=== PATIENT | male | born 1970 | race African-American/Black ===

== ENCOUNTER 2016-09-03 01:51 | Inpatient (IN) ==
[2016-09-03] MEDS ORDERED: Ipratropium/Albuterol Neb 3 ML IH ONE (03:31)
--- NOTE | 2016-09-03 03:43 | Emergency Department Note ---
Disposition Clinical Impression: Acute exacerbation of chronic obstructive airways disease, Volume overload Disposition: Admitted As Inpatient Condition: Fair Referrals: Arthur Pozo MD [Primary Care Provider] - Forms: ED Satisfaction Letter General Adult HPI - General Chief complaint: ED Shortness of Breath/Dyspnea Stated complaint: JESSICA Source: patient - History of Present Illness HPI Narrative: This is a 45-year-old male who was in the emergency department earlier in the evening with shortness of breath. He was noted to be hypoxemic. He was felt to be volume overloaded. He has a history of end-stage renal disease and is supposed to go for dialysis on Wednesday and Wednesday. According to the previous notes he has been somewhat noncompliant with that however he does state that he went to dialysis on Wednesday. In any case he was found to have evidence of pulmonary vascular congestion on his x-ray as well as an elevated beta natruretic peptide. My predecessor made arrangements to admit him to the hospital only to have the patient sign out AGAINST MEDICAL ADVICE shortly after. Now he is back stating that his family would not take him home and they pushed him to come back and be admitted. Pain Scale: 8 - Related Data Home Medications Medication Instructions Recorded Confirmed Furosemide [Lasix] 80 mg PO DAILY #0 01/07/15 09/02/16 Insulin ASPART [NovoLOG] 0 unit SQ TIDAC #0 01/07/15 09/02/16 Insulin Glargine,Hum.rec.anlog 30 unit SQ BID #0 01/07/15 09/02/16 [Lantus Solostar] [place] Oil/[place]-3 Fatty Acids 1 cap PO DAILY #0 01/07/15 09/02/16 [Fish Oil 500 mg Softgel] Carvedilol [Coreg] 50 mg PO BIDWM 01/24/16 09/02/16 Duloxetine HCl [Cymbalta] 60 mg PO DAILY 01/24/16 09/02/16 Lidocaine/Prilocaine CREAM [Emla] 1 appl TP AD PRN 01/24/16 09/02/16 Pantoprazole Sodium [Protonix] 40 mg PO DAILY 01/24/16 09/02/16 Renal Vitamin [Renal Caps Softgel] 1 mg PO DAILY 01/24/16 09/02/16 Ammonium Lactate [Ammonium Lactate] 1 appl TP BID 09/02/16 09/02/16 Cinacalcet HCl [Sensipar] 60 mg PO DAILY 09/02/16 09/02/16 HydrALAZINE 25 mg PO BID 09/02/16 09/02/16 Isosorbide MONOnitrate (24 HR) 30 mg PO DAILY 09/02/16 09/02/16 [Imdur] Lisinopril [Zestril] 5 mg PO DAILY PRN 09/02/16 09/02/16 Previous Rx's Medication Instructions Recorded Pregabalin [Lyrica] 100 mg PO TID capsule 01/08/15 Rosuvastatin [Crestor] 20 mg PO DAILY tablet 01/08/15 Allergies Allergy/AdvReac Type Severity Reaction Status Date / Time acetaminophen [From [place]] AdvReac Hives Verified 10/31/15 14:44 hydrocodone [From [place]] AdvReac Hives Verified 10/31/15 14:44 All systems ED: reviewed and negative except as stated. Constitutional: Denies: fever Cardiovascular: Denies: chest pain Respiratory: Reports: cough, dyspnea, wheezes Gastrointestinal: Denies: abdominal pain Past Medical History - Past Medical History Attestation: Yes The following information was validated with the patient. Medical history: Reports: arthritis, cardiomyopathy, CHF, COPD, diabetes, dialysis, GERD, hyperlipidemia, hypertension, renal disease, other Surgical history: Reports: herniorrhaphy, vascular surgery Psychiatric history: Reports: no psych history - Social History Smoking Status: Light tobacco smoker Smokeless Tobacco Status: Yes (nicotin gum) Alcohol use: Reports: none Drug use: Reports: none Physical Exam - General General appearance: alert - Head Head exam: atraumatic - Eye Eye exam: Present: PERRL - Neck Neck exam: Present: trachea midline - Respiratory Respiratory exam: Present: wheezes - Cardiovascular Cardiovascular exam: Present: normal rhythm, tachycardia - Abdominal Exam Abdominal exam: Present: soft, Non-Tender - Extremities Exam Extremities exam: Present: pedal edema - Neurological Exam Neurological exam: Present: alert, oriented X3 - Psychiatric Psychiatric exam: Present: flat affect Course Course Narrative: This patient was also set to be admitted before he left. We understand that he is likely volume overloaded. He is still persistently hypoxemic without supplemental oxygen. He states that he is now willing to be admitted. I have contacted the hospitalist Dr. Draper to arrange for admission. Vital Signs Temperature 97.9 F 09/03/16 01:56 Pulse Rate 117 09/03/16 01:56 Respiratory Rate 17 09/03/16 01:56 Blood Pressure 143/81 09/03/16 01:56 O2 Sat by Pulse Oximetry 89 09/03/16 01:56 Temperature 97.9 F 09/03/16 01:56 Pulse Rate 117 09/03/16 01:56 Respiratory Rate 17 09/03/16 01:56 Blood Pressure 143/81 09/03/16 01:56 O2 Sat by Pulse Oximetry 89 09/03/16 01:56 Oxygen Delivery Oxygen Delivery Room Air
[2016-09-03 06:55] LABS: Activated Partial Thrombo Time 31.7 Seconds (26.0-36.0); INR 1.3; Prothrombin Time 14.1 Seconds (9.4-12.1)
[2016-09-03 07:06] LABS: BUN/Creatinine Ratio 4 (6-26); Blood Urea Nitrogen 36 mg/dL (8-26); Calcium 8.5 mg/dL (8.6-10.8); Carbon Dioxide 25 mEq/L (19-29); Chloride 100 mEq/L (98-109); Chol/HDL Ratio 3.8 (0-4.9); Cholesterol 111 mg/dL (< 200); Glucose 166 mg/dL (70-99); HDL Cholesterol 29 mg/dL (40-59); LDL Cholesterol,Calculated 45 mg/dL (0-99); Osmolality,Calculated 304 (280-300); Phosphorous 7.8 mg/dL (2.3-4.7); Potassium 4.2 mEq/L (3.5-4.5); Sodium 141 mEq/L (136-145); Triglycerides 184 mg/dL (< 150); eGFR For African Americans 8 (> 60); eGFR For Non-African Americans 7 (> 60)
[2016-09-03 07:18] LABS: Immature Granulocytes % 0.5 % (0-4)
[2016-09-03 07:20] LABS: Basophils % 0.5 %; Eosinophils # 0.1 K/mcL (0.0-0.6); Eosinophils % 0.8 %; Hematocrit 44.2 % (37.5-50.1); Hemoglobin 13.6 g/dL (12.9-16.9); Immature Platelets 6.9 % (1.1-6.1); Lymphocytes % 13.1 %; Mean Corpuscular HGB Conc 30.8 g/dL (31.6-35.5); Mean Corpuscular Volume 87.9 fL (83.0-100.0); Mean Platelet Volume 11.5 fL (9.4-12.4); Monocytes # 0.7 K/mcL (0.0-1.3); Monocytes % 9.8 %; Neutrophils # 5.6 K/mcL (1.6-8.9); Nucleated Red Blood Cells 0.4 /100 WBC (0); Red Blood Count 5.03 M/mcL (4.19-5.50); Segmented Neutrophils % 75.3 %
[2016-09-03] MEDS ORDERED: Albuterol 2.5 MG/3 ML NEBULIZER IH PRN (07:58)
[2016-09-03] MEDS ORDERED: *HR* Morphine 2 MG/ML SYRINGE IVP PRN (07:58)
[2016-09-03] MEDS ORDERED: Ibuprofen 400 MG TABLET PO PRN (07:58)
[2016-09-03] MEDS ORDERED: *HR* Promethazine 25 MG/ML VIAL IVP PRN (07:58)
[2016-09-03] MEDS ORDERED: Azithromycin 500 MG in D5% in Water 250 ML IVPB SCH (08:00)
[2016-09-03 08:11] LABS: Platelet Count 89 K/mcL (140-400); Platelet Estimate Decreased (Normal)
--- NOTE | 2016-09-03 08:12 | Internal Med History&Physical ---
Date of Encounter: 09/03/16 Time of Encounter: 07:00 Assessment and Plan (1) Fluid overload Current visit: Yes Status: Acute . Qualifiers: Hypervolemia type: unspecified Qualified Code(s): E87.70 - Fluid overload, unspecified (2) End stage renal disease on dialysis Current visit: Yes Status: Chronic . (3) Altered mental status Current visit: Yes Status: Acute . Qualifiers: Altered mental status type: delirium Qualified Code(s): R41.0 - Disorientation, unspecified (4) Systolic heart failure, chronic Current visit: Yes Status: Acute . (5) Diabetes mellitus Current visit: Yes Status: Chronic . 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 (7) Obesity (BMI 30-39.9) Current visit: Yes Status: Chronic . (8) Acute exacerbation of chronic obstructive airways disease Current visit: Yes Status: Acute . (9) Volume overload Current visit: Yes Status: Acute . Qualifiers: Hypervolemia type: unspecified Qualified Code(s): E87.70 - Fluid overload, unspecified (10) Hx of noncompliance with medical treatment, presenting hazards to health Current visit: Yes Status: Acute . Internal Medicine - H&P: HPI Chief complaint: Difficulty breathing Admitted From: Emergency Dept Plans for Post Hospital Care: Home History of present illness: Mr. Hatch is a 45 year old male with history significant for ESRD HD dependent( MWF), chr syst CHF/nonischCMP, COPD/ZAINAB?OHS, type II DM/nephropathy/periph neuropathy/ED, HTN, HLD, OA/OP/vit D def, chr MSK pain, morbid obesity, nicotine dependency, etc.. Patient is admitted [facility] through the emergency department as he returns in the company of [employer] after having a left early in the evening AGAINST MEDICAL ADVICE following admission to inpatient status. At that time he presented with concerns for difficulty in breathing and discomfort he had aches following up on mechanical fall and trauma to his left hip and shoulder. Noted that he had fallen approximately 3 days prior to his presentation. He presented to the ED following dialysis where he reports they had removed approximately 6 L of fluid. He still felt that he was volume overloaded due to shortness of breath and feelings of fatigue and dyspnea with activity. He was noted also to have evidence for acute on chronic encephalopathy with mild delirium. Chest x-ray did suggest some volume overload consistent with his elevated BNP which tends to be elevated due to his ESRD as well as an elevated troponin. Examination revealed evidence suggestive of COPD exacerbation with bronchospasm. Initial vital signs noted temperature of 99.4 pulse of 123 duration on room air was 85%. CBC with differential was benign. Metabolic panel noted a BUN of 20 with a creatinine of 7.08 GFR of 8. Glucose is 210 with osmolality of 303. Troponin was 0.19 BNP 2342. Beta-hydroxy butyric acid was 0.14. PT 14.5 INR 1.3 PTT 35.4 and received initial treatments in the ED including Tylenol and nebulizer therapies and initial diuresis with intravenous furosemide. Patient however became belligerent and left AGAINST MEDICAL ADVICE. History was documented of previous noncompliance issues upon his return family stated plainly that they would not take him home until he was appropriately treated safe to return home. Vital signs upon return temperature was now 97.9 pulse was 117. 02 saturation on room air was 89%. Cough dyspnea and audible wheezes were apparent. The patient meets SIRS criteria at admission. Acute on chronic hypoxic respiratory failure secondary to acute exacerbation of chronic pulmonary disease superimposed on chronic systolic congestive heart failure. Demand ischemia myocardium with elevation in troponin and BNP might be a concern and will be further investigated. History of previous trends of troponins and BNP's similarly elevated. The patient poses a risk for her to clinically decline and morbidity given his presenting concerns, his history of noncompliance, clinical findings at presentation and associated comorbid conditions. Workup and treatments will proceed comprehensibly The patient was visited and interviewed and examined. Cumulative laboratory and radiographic data base will be considered and discussed. Pertinent ancillary medical records including ECW and PCI documentation when available was reviewed and considered. Given the patient's presenting concerns, past medical history, clinical findings and symptoms, he is admitted at this time will undergo further evaluation and disposition. Orders were written as per the computerized physician order packer system.......................................................................... .................... Consultative opinions will be sought as clinical circumstances justify. Nephrology/dialysis team consultation submitted. Pain management needs will be addressed. Laboratory+radiographic data base will be updated as appropriate. Studies include: UA, UDS, pt/inr, aptt, ddimer, ammonia, cpk, cardiac injury panel, BNP , metabolic and hematologic panel, magnesium, phosphorus, ionized calcium, thyroid panel, lipid profile, A1c, C-peptide, CRP, sedimentation rate, blood gas , lactic acid, serologies, etc. Precautions: Aspiration, fall, delirium protocol/surveillance initiated. Telemetry with continuous hemodynamic monitoring and pulse oximetry initiated. Empiric antibiotic coverage: Intravenous Rocephin and azithromycin pending culture data. Special studies: CT chest, chest x-ray, telemetry, EKG, 2D echo. Pulmonary toilet: Incentive spirometry, aerosol bronchodilator, mucolytic, antitussive, supplemental oxygen. Corticosteroid therapy. CPAP/BiPAP supplemental oxygen delivery. Aerosol Mucomyst therapy. Fluid and electrolyte repletion efforts will proceed. Careful attention to fluid balance and renal recovery will be emphasized. Avoidance of nephrotoxic exposure and adverse drug drug interaction in the setting of impaired renal function will be monitored closely. Acute coronary syndrome protocol/surveillance initiated. Acute heart failure protocol/surveillance initiated. 1500mls total fluid restriction per 24hrs. JOI admend to ADA-RENAL diet. Strict input, output and daily weights. Gentle diuresis with careful attention to total fluid balance and hemodynamics. DVT and PUD prophylaxis initiated: PPI therapy, intermittent pneumatic cuffs/ TEDs. Subcutaneous heparin. Early ambulation will be encouraged. Immunization updates recommended. Influenza and pneumococcal vaccinations as part of ongoing preventative healthcare recommendations strongly recommended. Smoking cessation counseling briefly addressed. Patient accepts nicotine substitution during this hospitalization.. Advanced care directive discussion briefly addressed. Patient does not declare any healthcare restrictions at this time. Cardiovascular risk appraisal and cardiovascular risk reduction efforts will be emphasized. Physical+occupational therapy may be asked to evaluate patient's functional capacity and progressive mobility if circumstances justify. Sliding scale insulin coverage, ADA-RENAL dietary restraint and schedule an as- needed basis fingerstick glucose assessments were initiated. Nutrition/ diabetes education counseling may be considered as circumstances justify. Outpatient medication schedules will be reviewed, confirmed and facilitated as appropriate. Reconciliation of home treatments including adjustments, substitutions and reintroduction into the treatment regimen will address necessary maintenance therapies for chronic pre-existing medical conditions. Plan of care has been reviewed and discussed in detail with the patient. Questions addressed. Hospital course dictated by clinical findings, treatment response and potential consultative interventions. Patient is at risk for further acute clinical decline and morbidity due to presenting chief complaints, findings and comorbid conditions. Condition is serious. Prognosis is guarded. CODE STATUS is full. Past Med Surg Social Fam HX - Past Medical History Source: old records reviewed Medical history: arthritis, cardiomyopathy, CHF, COPD, diabetes, dialysis, GERD , hyperlipidemia, hypertension, osteoporosis (vit D def.), renal disease, other Psychiatric history: anxiety, depression, other - Past Surgical History Surgical History: herniorrhaphy, vascular surgery, other - Social History Smoking Status: Current every day smoker Smokeless Tobacco Status: No Alcohol use: none, unknown Drug use: marijuana, other Occupational status: unemployed Current living situation: Home, With Family Activity Level: Independent ambulation, Mostly sedentary Recent Out of Country Travel Within the Last 8 Weeks: No Exposure or Possible Exposure to Illness During Travel: No - Family History Father Living Status: Age at : 83 Mother Adopted: No Living Status: Still Living Hx Family Cardiac Disorders: Yes Hx Family Endocrine Disorder: Yes Internal Medicine - H&P: Meds Furosemide [Lasix] 80 mg PO DAILY #0 01/07/15 [History] Insulin ASPART [NovoLOG] 0 unit SQ TIDAC #0 01/07/15 [History] Insulin Glargine,Hum.rec.anlog [Lantus Solostar] 30 unit SQ BID #0 01/07/15 [ History] [place] Oil/[place]-3 Fatty Acids [Fish Oil 500 mg Softgel] 1 cap PO DAILY #0 [History] Pregabalin [Lyrica] 100 mg PO TID capsule 01/08/15 [Rx] Rosuvastatin [Crestor] 20 mg PO DAILY tablet 01/08/15 [Rx] Carvedilol [Coreg] 50 mg PO BIDWM 01/24/16 [History] Duloxetine HCl [Cymbalta] 60 mg PO DAILY 01/24/16 [History] Lidocaine/Prilocaine CREAM [Emla] 1 appl TP AD PRN 01/24/16 [History] Pantoprazole Sodium [Protonix] 40 mg PO DAILY 01/24/16 [History] Renal Vitamin [Renal Caps Softgel] 1 mg PO DAILY 01/24/16 [History] Ammonium Lactate [Ammonium Lactate] 1 appl TP BID 09/02/16 [History] Cinacalcet HCl [Sensipar] 60 mg PO DAILY 09/02/16 [History] HydrALAZINE 25 mg PO BID 09/02/16 [History] Isosorbide MONOnitrate (24 HR) [Imdur] 30 mg PO DAILY 09/02/16 [History] Lisinopril [Zestril] 5 mg PO DAILY PRN 09/02/16 [History] Allergies acetaminophen [From [place]] Adverse Reaction (Verified 10/31/15 14:44) Hives hydrocodone [From [place]] Adverse Reaction (Verified 10/31/15 14:44) Hives All Systems PM: A 10-system review of systems was performed and is negative for pertinent findings except as documented above in the HPI. - Constitutional Constitutional: as per HPI, fatigue, falls, malaise, weight gain, other, no chills, no fever(s), no night sweats - EENT Eyes: as per HPI, no change in vision, no discharge, no pain, no photophobia Ears: as per HPI, no ear discharge, no ear pain, no tinnitus Nose, mouth and throat: as per HPI, no dysphagia, no nasal discharge, no neck pain, no sore throat - Cardiovascular Cardiovascular ROS IM: as per HPI, dyspnea, dyspnea on exertion, edema, orthopnea, no chest pain, no diaphoresis, no lightheadedness, no palpitations, no syncope - Respiratory Respiratory: as per HPI, cough, dyspnea, dyspnea on exertion, wheezing, no hemoptysis, no excessive phlegm production - Gastrointestinal Gastrointestinal: as per HPI, bloating, no abdominal pain, no diarrhea, no hematemesis, no hematochezia, no melena, no nausea, no vomiting - Genitourinary Genitourinary ROS male: as per HPI - Musculoskeletal Musculoskeletal ROS IM: as per HPI, no numbness, no tingling - Integumentary Integumentary IM: as per HPI, no rash, no unusual bruising - Neurological Neurological ROS: as per HPI, no confusion, no convulsions, no focal weakness, no numbness, no tingling, no tremor(s) - Psychiatric Psychiatric: as per HPI - Endocrine Endocrine IM: as per HPI - Hematologic/Lymphatic Hematologic/Lymphatic: as per HPI, no easy bruising - Allergic/Immunologic Allergic/Immunologic: as per HPI - Constitutional Vitals: Temp Pulse Resp BP Pulse Ox 97.8 F 115 18 142/106 97 09/03/16 06:56 09/03/16 06:56 09/03/16 06:56 09/03/16 06:56 09/03/16 06:56 Vital Signs Temp Pulse Resp BP Pulse Ox 09/03/16 06:56 97.8 F 115 18 142/106 97 09/03/16 05:13 98.2 F 116 19 101/69 97 09/03/16 04:49 124 20 123/73 87 09/03/16 03:49 18 91 09/03/16 01:56 97.9 F 117 17 143/81 89 Intake and Output 09/02/16 09/03/16 09/03/16 23:59 07:59 15:59 Other: Weight 123 kg Blood Glucose* 276 Patient Weight 09/03/16 23:59 Weight 123 kg General appearance: Present: mild distress, A&O X 3, morbidly obese, answers questions appropriately - Head Head exam: Present: atraumatic, normal inspection, normocephalic - Eye Eye exam: Present: EOMI, PERRL, conjuntiva pink, sclera anicteric Pupils: Present: normal accommodation, PERRL - ENT ENT exam: Present: mucous membranes moist, normal oropharynx - Neck Neck exam general surgery: Present: full ROM, supple, trachea midline. Absent: lymphadenopathy, nuchal rigidity - Respiratory Respiratory exam: Present: decreased breath sounds, prolonged expiratory phase, rales, wheezes. Absent: accessory muscle use, CTAB, rhonchi - Cardiovascular Cardiovascular exam: Present: distant heart sounds, RRR, +S1, +S2. Absent: diastolic murmur, gallop, rubs, systolic murmur - GI/Abdominal GI/Abdominal exam: Present: normal bowel sounds, soft, no peritoneal signs. Absent: distended, tenderness - Extremities Exam Extremities exam: Present: full ROM, pedal edema, warm, radial pulses palpable and symetrical. Absent: calf tenderness, cyanotic, tenderness - Neurological Exam Neurological exam: Present: alert, CN II-XII intact, oriented X3, no focal deficits. Absent: pronater drift, facial droop, speech deficit - Expanded Neurological Exam Neurological exam expanded: Present: inattentive, protecting the airway. Absent : ataxia, expressive aphasia, receptive aphasia, tremor Patient oriented to: Present: person, place, time Speech: Present: fluid speech Coma Scale Eye Opening: Spontaneous Coma Scale Motor Response: Obeys Commands Coma Scale Verbal Response: Oriented Coma Scale Total: 15 - Psychiatric Psychiatric exam: Present: normal affect, normal mood - Skin Skin exam: Present: dry, intact, warm. Absent: petechiae, rash, urticaria, vesicles Internal Med - H&P Results - Labs CBC & Chem 7: 09/03/16 06:29 Labs: [facility] 09/03/16 06:29 Sodium 141 Potassium 4.2 Chloride 100 Carbon Dioxide 25 BUN 36 H Creatinine 8.41 H Glucose 166 H Calcium 8.5 L Cardiac Enzymes 09/03/16 Range/Units 06:29 Troponin I 0.21 H* (0-0.03) ng/mL Short CBC 09/03/16 Range/Units 06:29 WBC 7.4 (4.3-11.1) K/mcL Hgb 13.6 (12.9-16.9) g/dL Hct 44.2 (37.5-50.1) % Plt Count 89 L (140-400) K/mcL Neutrophils # 5.6 (1.6-8.9) K/mcL [facility] 09/03/16 Range/Units 06:29 Sodium 141 (136-145) mEq/L Potassium 4.2 (3.5-4.5) mEq/L Chloride 100 (98-109) mEq/L Carbon Dioxide 25 (19-29) mEq/L BUN 36 H (8-26) mg/dL Creatinine 8.41 H (0.72-1.25) mg/dL Glucose 166 H (70-99) mg/dL Calcium 8.5 L (8.6-10.8) mg/dL Cardiac Enzymes 09/03/16 Range/Units 06:29 Troponin I 0.21 H* (0-0.03) ng/mL Abnormal lab results MCH 27.0 pg (28.0-33.3) L 09/03/16 06:29 MCHC 30.8 g/dL (31.6-35.5) L 09/03/16 06:29 RDW 17.0 % (11.5-14.5) H 09/03/16 06:29 Plt Count 89 K/mcL (140-400) L 09/03/16 06:29 Nucleated RBCs/100 WBC 0.4 /100 WBC (0) H 09/03/16 06:29 Platelet Estimate Decreased (Normal) L 09/03/16 06:29 Immature Plt Fraction 6.9 % (1.1-6.1) H 09/03/16 06:29 PT 14.1 Seconds (9.4-12.1) H 09/03/16 06:29 BUN 36 mg/dL (8-26) H 09/03/16 06:29 Creatinine 8.41 mg/dL (0.72-1.25) H 09/03/16 06:29 Est GFR ( Amer) 8 (> 60) L 09/03/16 06:29 Est GFR (Non-Af Amer) 7 (> 60) L 09/03/16 06:29 BUN/Creatinine Ratio 4 (6-26) L 09/03/16 06:29 Glucose 166 mg/dL (70-99) H 09/03/16 06:29 Calculated Osmolality 304 (280-300) H 09/03/16 06:29 Calcium 8.5 mg/dL (8.6-10.8) L 09/03/16 06:29 Phosphorus 7.8 mg/dL (2.3-4.7) H 09/03/16 06:29 Troponin I 0.21 ng/mL (0-0.03) H* 09/03/16 06:29 Triglycerides 184 mg/dL (< 150) H 09/03/16 06:29 VLDL Cholesterol, Calc 37 mg/dL (< 31) H 09/03/16 06:29 HDL Cholesterol 29 mg/dL (40-59) L 09/03/16 06:29 Laboratory Results WBC 7.4 K/mcL (4.3-11.1) 09/03/16 06:29 RBC 5.03 M/mcL (4.19-5.50) 09/03/16 06:29 Hgb 13.6 g/dL (12.9-16.9) 09/03/16 06:29 Hct 44.2 % (37.5-50.1) 09/03/16 06: MCV 87.9 fL (83.0-100.0) 09/03/16 06: MCH 27.0 pg (28.0-33.3) L 09/03/16 06: MCHC 30.8 g/dL (31.6-35.5) L 09/03/16 06: RDW 17.0 % (11.5-14.5) H 09/03/16 06:29 Plt Count 89 K/mcL (140-400) L 09/03/16 06:29 MPV 11.5 fL (9.4-12.4) 09/03/16 06: Immature Gran % 0.5 % (0-4) 09/03/16 06: Seg Neutrophils % 75.3 % 09/03/16 06:29 Lymphocytes % 13.1 % 09/03/16 06: Monocytes % 9.8 % 09/03/16 06: Eosinophils % 0.8 % 09/03/16 06: Basophils % 0.5 % 09/03/16 06: Neutrophils # 5.6 K/mcL (1.6-8.9) 09/03/16 06: Lymphocytes # 1.0 K/mcL (0.6-4.6) 09/03/16 06: Monocytes # 0.7 K/mcL (0.0-1.3) 09/03/16 06:29 Eosinophils # 0.1 K/mcL (0.0-0.6) 09/03/16 06: Basophils # 0.0 K/mcL (0.0-0.2) 09/03/16 06:29 Nucleated RBCs/100 WBC 0.4 /100 WBC (0) H 09/03/16 06:29 Platelet Estimate Decreased (Normal) L 09/03/16 06: Immature Plt Fraction 6.9 % (1.1-6.1) H 09/03/16 06:29 PT 14.1 Seconds (9.4-12.1) H 09/03/16 06:29 INR 1.3 09/03/16 06:29 APTT 31.7 Seconds (26.0-36.0) 09/03/16 06:29 Sodium 141 mEq/L (136-145) 09/03/16 06:29 Potassium 4.2 mEq/L (3.5-4.5) 09/03/16 06:29 Chloride 100 mEq/L (98-109) 09/03/16 06:29 Carbon Dioxide 25 mEq/L (19-29) 09/03/16 06:29 BUN 36 mg/dL (8-26) H 09/03/16 06:29 Creatinine 8.41 mg/dL (0.72-1.25) H 09/03/16 06:29 Est GFR ( Amer) 8 (> 60) L 09/03/16 06:29 Est GFR (Non-Af Amer) 7 (> 60) L 09/03/16 06:29 BUN/Creatinine Ratio 4 (6-26) L 09/03/16 06:29 Glucose 166 mg/dL (70-99) H 09/03/16 06:29 Calculated Osmolality 304 (280-300) H 09/03/16 06:29 Calcium 8.5 mg/dL (8.6-10.8) L 09/03/16 06:29 Ionized Calcium TNP 09/03/16 06:29 Phosphorus 7.8 mg/dL (2.3-4.7) H 09/03/16 06:29 Magnesium 2.0 mg/dL (1.6-2.6) 09/03/16 06:29 Troponin I 0.21 ng/mL (0-0.03) H* 09/03/16 06:29 Triglycerides 184 mg/dL (< 150) H 09/03/16 06:29 Cholesterol 111 mg/dL (< 200) 09/03/16 06:29 LDL Cholesterol, Calc 45 mg/dL (0-99) 09/03/16 06:29 VLDL Cholesterol, Calc 37 mg/dL (< 31) H 09/03/16 06:29 HDL Cholesterol 29 mg/dL (40-59) L 09/03/16 06:29 Cholesterol/HDL Ratio 3.8 (0-4.9) 09/03/16 06:29 Specimen Rejected Miscellaneous 09/03/16 08:05
[2016-09-03] MEDS ORDERED: *HR* Etomidate 20 MG/10 ML AMPUL IVP ONE (08:30)
[2016-09-03] MEDS ORDERED: (Salmon Oil/Omega-3 Fatty Acids [Fish Oil 500 Mg Soft PO SCH (09:00)
[2016-09-03] MEDS ORDERED: Nicotine 21 MG PATCH.TD24 TD SCH (09:00)
[2016-09-03] MEDS ORDERED: Renal Vitamin 1 MG CAPSULE PO SCH (09:00)
[2016-09-03] MEDS ORDERED: Isosorbide MONOnitrate (24 HR) 30 MG TAB.ER.24H PO SCH (09:00)
[2016-09-03] MEDS ORDERED: Furosemide 40 MG TABLET PO SCH (09:00)
[2016-09-03] MEDS ORDERED: Pregabalin 50 MG CAPSULE PO SCH (09:00)
[2016-09-03] MEDS: Ammonium Lactate 30 APPL/225 GM BOTTLE TP SCH ×2 (10:05→20:20)
[2016-09-03] MEDS: hydrALAZINE 25 MG TABLET PO SCH ×2 (10:06→20:19)
[2016-09-03] MEDS: Ipratropium/Albuterol Neb 3 ML IH SCH ×3 (10:08→22:06)
--- NOTE | 2016-09-03 10:17 | Nephrology Consult Note ---
Date of Encounter: 09/03/16 Time of Encounter: 09:30 Assessment and Plan (1) End stage renal disease on dialysis Current Visit: Yes Status: Chronic ESRD on HD. Fluid overload. Chronically non compliant with treatments and fluids. Will do UF today, orders given. HD tomorrow, keeping MWF schedule. History of Present Illness - Reason for Consult end stage renal disease - History of Present Illness Mr. Hatch is a 45 year old male who dialyzes at [facility] on MWF, last dialysis yesterday. Mr. Hatch has history of poor compliance with HD visits, fluids and frequently comes off treatment early. Other PMH- cardiomyopathy, CHF , COPD, DM II, GERD, HLD, HTN, ZAINAB/CPAP with non compliance of usage. Mr. Hatch presented to ER yesterday evening with shortness of breath. CXR showed pulmonary vascular congestion and elevated BNP. Mr. Hatch had signed out AMA and represented self with family encouragement. Today, he is sitting on edge of bed, somnolent, 2L 02NC, states his breathing is same, scattered rhonchi throughout. Lower extremities taut with mild blistering and chronic vascular skin changes. Past Med Surg Social Fam HX - Past Medical History Medical history: arthritis, cardiomyopathy, CHF, COPD, diabetes, dialysis, GERD , hyperlipidemia, hypertension, osteoporosis (vit D def.), renal disease, other Psychiatric history: anxiety, depression, other - Past Surgical History Surgical History: herniorrhaphy, vascular surgery, other - Social History Smoking Status: Current every day smoker Smokeless Tobacco Status: No Alcohol use: none, unknown Drug use: marijuana, other - Family History Father Living Status: Age at : 83 Mother Adopted: No Living Status: Still Living Hx Family Cardiac Disorders: Yes Hx Family Endocrine Disorder: Yes Medications and Allergies Furosemide [Lasix] 80 mg PO DAILY #0 01/07/15 [History] Insulin ASPART [NovoLOG] 0 unit SQ TIDAC #0 01/07/15 [History] Insulin Glargine,Hum.rec.anlog [Lantus Solostar] 30 unit SQ BID #0 01/07/15 [ History] [place] Oil/[place]-3 Fatty Acids [Fish Oil 500 mg Softgel] 1 cap PO DAILY #0 [History] Pregabalin [Lyrica] 100 mg PO TID capsule 01/08/15 [Rx] Rosuvastatin [Crestor] 20 mg PO DAILY tablet 01/08/15 [Rx] Carvedilol [Coreg] 50 mg PO BIDWM 01/24/16 [History] Duloxetine HCl [Cymbalta] 60 mg PO DAILY 01/24/16 [History] Lidocaine/Prilocaine CREAM [Emla] 1 appl TP AD PRN 01/24/16 [History] Pantoprazole Sodium [Protonix] 40 mg PO DAILY 01/24/16 [History] Renal Vitamin [Renal Caps Softgel] 1 mg PO DAILY 01/24/16 [History] Ammonium Lactate [Ammonium Lactate] 1 appl TP BID 09/02/16 [History] Cinacalcet HCl [Sensipar] 60 mg PO DAILY 09/02/16 [History] HydrALAZINE 25 mg PO BID 09/02/16 [History] Isosorbide MONOnitrate (24 HR) [Imdur] 30 mg PO DAILY 09/02/16 [History] Lisinopril [Zestril] 5 mg PO DAILY PRN 09/02/16 [History] Allergies acetaminophen [From [place]] Adverse Reaction (Verified 10/31/15 14:44) Hives hydrocodone [From [place]] Adverse Reaction (Verified 10/31/15 14:44) Hives Review of Systems All Systems: reviewed and no additional remarkable complaints except as stated Exam - Vital Signs Vital signs: Initial Vital Signs Temp Pulse Resp BP Pulse Ox 97.9 F 117 17 143/81 89 09/03/16 01:56 09/03/16 01:56 09/03/16 01:56 09/03/16 01:56 09/03/16 01:56 Vital Signs - Last 8 Hours Temp Pulse Resp BP Pulse Ox 09/03/16 06:56 97.8 F 115 18 142/106 97 09/03/16 05:30 94 09/03/16 05:13 98.2 F 116 19 101/69 97 09/03/16 04:49 124 20 123/73 87 Intake and Output 09/02/16 09/03/16 09/03/16 23:59 07:59 15:59 Other: Blood Glucose* 276 - General Appearance General appearance: well-developed, well-nourished, appears started age, obese EENT: mucous membranes moist Neck: no JVD, no carotid bruit Respiratory: rhonchi Cardiology: edema, regular rate, regular rhythm Additional Comments: Lower extremities taut with mild blistering and chronic vascular skin changes. Gastrointestinal: normoactive bowel sounds, no tenderness Integumentary: warm and dry Additional Comments: somnolent, easily arousable, oriented x 3 Psychiatric: mood/affect appropriate, cooperative Results - Lab Results 09/03/16 06:29 09/03/16 06:29 Most recent lab results Calcium 8.5 mg/dL (8.6-10.8) L 09/03/16 06:29 Phosphorus 7.8 mg/dL (2.3-4.7) H 09/03/16 06:29 Magnesium 2.0 mg/dL (1.6-2.6) 09/03/16 06:29 Consult Discharge Plan - Plan Referrals: Arthur Pozo MD [Primary Care Provider] -
[2016-09-03] MEDS ORDERED: 0.9 % Sodium Chloride 250 ML IVC PRN (11:11)
[2016-09-03] MEDS ORDERED: 0.9 % Sodium Chloride 1,000 ML PRIME SCH (11:15)
[2016-09-03] MEDS ORDERED: Ondansetron 4 MG/2 ML VIAL IVP PRN (12:48)
[2016-09-03] MEDS ORDERED: Thiamine (B-1) 200 MG/2 ML VIAL IM STA (13:47)
[2016-09-03] MEDS ORDERED: *HR* Dextrose 50 % in Water (Syg) 50 ML SYRINGE ONE (13:49)
[2016-09-03] MEDS: Naloxone 0.4 MG/ML INJ IVP PRN ×2 (13:54→13:55)
[2016-09-03] MEDS ORDERED: *HR* Dextrose 50 % in Water (Syg) 50 ML SYRINGE IVP STA (14:06)
[2016-09-03 14:07] LABS: ABG Base Excess 0.2 mEq/L (-2.0 to 3.0); ABG HCO3 32.3 mEQ/L (21-27); ABG Oxygen Saturation 83 % (95-98); ABG PO2 62 mmHg (85-104); ABG TCO2 35.2 mEq/L (20-26)
[2016-09-03 14:08] LABS: ABG PCO2 95 mmHg (35-45); ABG PH 7.14 pH Units (7.32-7.45)
[2016-09-03 14:09] LABS: Blood Gas FiO2 32 %
[2016-09-03] MEDS ORDERED: Lacri-Lube 3.5 GM TUBE BOTH EYES PRN (15:04)
[2016-09-03] MEDS ORDERED: FentaNYL (PF) 1,000 MCG in 0.9 % Sodium Chloride 80 ML IVC SCH (15:15)
[2016-09-03] MEDS: Dexmedetomidine HCl 400 MCG/100 ML MLS IVC SCH ×2 (15:18→21:14)
--- NOTE | 2016-09-03 15:49 | Procedure Note ---
Date of procedure: 09/03/16 Pre-op diagnosis: acute hypoxic respiratory failure with hypercapnia Post-op diagnosis: same Procedure: A time-out was completed verifying correct patient, procedure, site, positioning , and special equipment. The patient was placed in a flat position. Sedation was obtained using Etomidate 20mg. The patient was easily ventilated using an ambu bag. The Glidescope was used and inserted into the oropharynx at which time there was a Grade 3 view of the vocal cords. A size 8-georgian endotracheal tube was inserted and visualized going through the vocal cords. The stylette was removed. Colorimetric change was visualized on the CO2 meter. Breath sounds were heard in both lung hurtado equally. The endotracheal tube was placed at 23 cm, measured at the teeth. Dr. Hoover was present for the entire procedure. A chest x-ray was ordered to confirm absence of pneumothorax and verify correct endotrachealtube placement. Estimated Blood Loss: minimal The patient tolerated the procedure well and there were no complications. Anesthesia: IV sedation Surgeon: Dionna Cardenas Rabbet Operator: Kang Hoover Estimated blood loss (cc): 0 IV fluids (cc): 0 Urine output (cc): 0 Condition: stable Disposition: ICU
--- NOTE | 2016-09-03 16:11 | Pulmonology Consult Note ---
Date of Encounter: 09/03/16 Time of Encounter: 15:00 Assessment and Plan (1) Acute and chronic respiratory failure Current Visit: Yes Status: Acute 1. Acute on chronic respiratory failure with hypoxia and hypercapnea Likely multifactoral: Pulmonary edema secondary to acute exacerbation CHF, medication, obesity, Acute exacerbation COPD Intubated 09/03/16 Right IJ central line placed 09/03/16 Right radial arterial line placed 12/03/16 - Sedation: Precedex, Fentanyl - Pulm: Symbicort, Duoneb - Levophed for MAP >65 Troponin elevated; this appears to be his baseline/chronic level. 2. Chronic pain syndrome Scheduled: Lyrica, Cymbalta PRN: Lidocaine cream, Ibuprophen, Morphine 3. Obesity hypoventilation syndrome - Plan as above 4. Acute exacerbation COPD - Plan as above 5. ZAINAB - Plan as above 6. Systolic CHF Echo 01/28/16: EF 35%. Dilated RV. Reduced LV function. - Plan as above - Hold Imdur 30mg PO Qday - Crestor 20mg PO QHS - Hold Lisinopril 5mg PO Qday - Hold Hydralazine 25mg PO BID - Echocardiogram pending. 7. ESRD on dialysis HD dependent (M, W, F) - Renal vitamin 1mg PO Qday - Nephrology on board & their input appreciated. 8. DM - POC glucose Q6 - Lantus 20mg SQ BID - SS medium Other: DVT prophylax: Heparin PUD prophylax: Protonix Qualifiers: Qualified Code(s): J96.21 - Acute and chronic respiratory failure with hypoxia; J96.22 - Acute and chronic respiratory failure with hypercapnia (2) Chronic pain syndrome Current Visit: Yes Status: Acute (3) Obesity hypoventilation syndrome Current Visit: Yes Status: Acute (4) COPD (chronic obstructive pulmonary disease) Current Visit: No Status: Chronic Qualifiers: COPD type: unspecified COPD Qualified Code(s): J44.9 - Chronic obstructive pulmonary disease, unspecified (5) ZAINAB (obstructive sleep apnea) Current Visit: Yes Status: Chronic (6) Systolic heart failure, chronic Current Visit: Yes Status: Acute (7) End stage renal disease on dialysis Current Visit: Yes Status: Chronic (8) Diabetes mellitus Current Visit: Yes Status: Chronic Qualifiers: Diabetes mellitus type: type 2 Diabetes mellitus complication detail: with chronic kidney disease Diabetes mellitus detention insulin use: unspecified detention insulin use status Chronic kidney disease stage: on chronic dialysis Qualified Code(s): E11.22 - Type 2 diabetes mellitus with diabetic chronic kidney disease; N18.6 - End stage renal disease History of Present Illness Consult date: 09/03/16 Requesting physician: Cuauhtemoc Mcneil Reason for consult: other (acute hypoxia) Chief complaint: JESSICA History of present illness: Mr. Hatch, a 45yo male, presents from the floor to the ICU with acute hypoxia. He was purportedly found in his room slumped over his meal. Last seen normal appx 20minutes prior. PMH: Hx non-compliance. ESRD HD dependent(MWF), chr syst CHF/nonischCMP, COPD/ ZAINAB?OHS, type II DM/nephropathy/periph neuropathy/ED, HTN, HLD, OA/OP/vit D def , chr MSK pain, morbid obesity, nicotine dependency. Patient was seen in the ER 09/02/16 and left AMA. Patient did not go to dialysis last Wednesday. Past Med Surg Social Fam HX - Past Medical History Medical history: arthritis, cardiomyopathy, CHF, COPD, diabetes, dialysis, GERD , hyperlipidemia, hypertension, osteoporosis (vit D def.), renal disease, other Psychiatric history: anxiety, depression, other - Past Surgical History Surgical History: herniorrhaphy, vascular surgery, other - Social History Smoking Status: Current every day smoker Smokeless Tobacco Status: No Alcohol use: none, unknown Drug use: marijuana, other - Family History Father Living Status: Age at : 83 Mother Adopted: No Living Status: Still Living Hx Family Cardiac Disorders: Yes Hx Family Endocrine Disorder: Yes Medications and Allergies Furosemide [Lasix] 80 mg PO DAILY #0 01/07/15 [History] Insulin ASPART [NovoLOG] 0 unit SQ TIDAC #0 01/07/15 [History] Insulin Glargine,Hum.rec.anlog [Lantus Solostar] 30 unit SQ BID #0 01/07/15 [ History] [place] Oil/[place]-3 Fatty Acids [Fish Oil 500 mg Softgel] 1 cap PO DAILY #0 [History] Pregabalin [Lyrica] 100 mg PO TID capsule 01/08/15 [Rx] Rosuvastatin [Crestor] 20 mg PO DAILY tablet 01/08/15 [Rx] Carvedilol [Coreg] 50 mg PO BIDWM 01/24/16 [History] Duloxetine HCl [Cymbalta] 60 mg PO DAILY 01/24/16 [History] Lidocaine/Prilocaine CREAM [Emla] 1 appl TP AD PRN 01/24/16 [History] Pantoprazole Sodium [Protonix] 40 mg PO DAILY 01/24/16 [History] Renal Vitamin [Renal Caps Softgel] 1 mg PO DAILY 01/24/16 [History] Ammonium Lactate [Ammonium Lactate] 1 appl TP BID 09/02/16 [History] Cinacalcet HCl [Sensipar] 60 mg PO DAILY 09/02/16 [History] HydrALAZINE 25 mg PO BID 09/02/16 [History] Isosorbide MONOnitrate (24 HR) [Imdur] 30 mg PO DAILY 09/02/16 [History] Lisinopril [Zestril] 5 mg PO DAILY PRN 09/02/16 [History] Allergies acetaminophen [From [place]] Adverse Reaction (Verified 10/31/15 14:44) Hives hydrocodone [From [place]] Adverse Reaction (Verified 10/31/15 14:44) Hives ROS unobtainable: due to endotracheal tube All Systems: A 10-system review of systems was performed and is negative for pertinent findings except as documented above in the HPI. Physical Examination Vital Signs: Vital Signs, Last 4 Hours Temp Pulse Resp BP Pulse Ox 09/03/16 15:41 92 12 84/59 92 09/03/16 14:00 18 92 09/03/16 13:49 96.2 F L 108 18 100/51 90 09/03/16 11:55 97.8 F 108 18 102/82 94 General appearance: no acute distress, other (intubated, sedated) Eyes: nonicteric, other (pupils equal round and sluggish reactivity) ENT: oropharynx moist Neck: supple Effort: normal Inspection: normal Auscultation: bilateral: diminished breath sounds, rales Cardiovascular: regular rate and rhythm Gastrointestinal: normoactive bowel sounds, soft, non-tender, non-distended Integumentary: normal Extremities: no cyanosis, no edema, no clubbing, pink and warm, pulses normal Musculoskeletal: no deformities unable to assess due to mental status, other (responds to noxious stimuli) Results - Laboratory Findings CBC and BMP: 09/03/16 06:29 09/03/16 06:29 ABG ABG pH 7.14 pH Units (7.32-7.45) L* 09/03/16 13:55 ABG pCO2 95 mmHg (35-45) H* 09/03/16 13:55 ABG pO2 62 mmHg (85-104) L 09/03/16 13:55 ABG O2 Saturation 83 % (95-98) L 09/03/16 13:55 PT/INR, D-dimer PT 14.1 Seconds (9.4-12.1) H 09/03/16 06:29 Abnormal lab findings: Abnormal lab results MCH 27.0 pg (28.0-33.3) L 09/03/16 06:29 MCHC 30.8 g/dL (31.6-35.5) L 09/03/16 06:29 RDW 17.0 % (11.5-14.5) H 09/03/16 06:29 Plt Count 89 K/mcL (140-400) L 09/03/16 06:29 Nucleated RBCs/100 WBC 0.4 /100 WBC (0) H 09/03/16 06:29 Platelet Estimate Decreased (Normal) L 09/03/16 06:29 Immature Plt Fraction 6.9 % (1.1-6.1) H 09/03/16 06:29 PT 14.1 Seconds (9.4-12.1) H 09/03/16 06:29 ABG pH 7.14 pH Units (7.32-7.45) L* 09/03/16 13:55 ABG pCO2 95 mmHg (35-45) H* 09/03/16 13:55 ABG pO2 62 mmHg (85-104) L 09/03/16 13:55 ABG HCO3 32.3 mEQ/L (21-27) H 09/03/16 13:55 ABG Total CO2 35.2 mEq/L (20-26) H 09/03/16 13:55 ABG O2 Saturation 83 % (95-98) L 09/03/16 13:55 BUN 36 mg/dL (8-26) H 09/03/16 06:29 Creatinine 8.41 mg/dL (0.72-1.25) H 09/03/16 06:29 Est GFR ( Amer) 8 (> 60) L 09/03/16 06:29 Est GFR (Non-Af Amer) 7 (> 60) L 09/03/16 06:29 BUN/Creatinine Ratio 4 (6-26) L 09/03/16 06:29 Glucose 166 mg/dL (70-99) H 09/03/16 06:29 POC Glucose 233 (58-89) H 09/03/16 11:57 Calculated Osmolality 304 (280-300) H 09/03/16 06:29 Calcium 8.5 mg/dL (8.6-10.8) L 09/03/16 06:29 Phosphorus 7.8 mg/dL (2.3-4.7) H 09/03/16 06:29 Troponin I 0.21 ng/mL (0-0.03) H* 09/03/16 06:29 Triglycerides 184 mg/dL (< 150) H 09/03/16 06:29 VLDL Cholesterol, Calc 37 mg/dL (< 31) H 09/03/16 06:29 HDL Cholesterol 29 mg/dL (40-59) L 09/03/16 06:29 - Diagnostic Findings Chest x-ray: report reviewed, image reviewed CT scan - chest: report reviewed, image reviewed - Clinical Findings Intake & Output: Intake & Output 09/02/16 09/03/16 09/03/16 23:59 07:59 15:59 Intake Total 485 / 485 Output Total 200 / 200 Balance 285 / 285 Consult Discharge Plan - Plan Referrals: Arthur Pozo MD [Primary Care Provider] -
--- NOTE | 2016-09-03 16:30 | Event Note ---
<Dionna Cardenas - Last Filed: 09/03/16 15:58> Date of Encounter: 09/03/16 Time of Encounter: 03:00 around 1500, nurse reported that patient was obtunded and non responsive. Patient was seen and examined immediately. He had minimal response to sternal rub. Patient had initial GCS of 10, but became more obtunded. Patient responded to commands and would move extremities. Glucose was taken and was found to be 175. Patient received 2 amps Dextrose, IM thiamine, .8 mg of Narcan. Respiratory therapy was called, BiPAP was placed, and ABG was drawn. ABG confirmed acute respiratory failure with hypoxia and hypercapnia. Patient was reassessed shortly afterwards and was unable to protect airway, and was unresponsible. He was subsequently transferred to the ICU. Patient was endotracheally intubated (see procedure note). Patient tolerated procedure well. <Kang Hoover M - Last Filed: 09/03/16 17:49> Date of Encounter: 09/03/16 <Cuauhtemoc Mcneil P - Last Filed: 09/06/16 17:58> Date of Encounter: 09/06/16 I was present for the initial part of the procedure. At the time of intubation Dr. Hoover was present
[2016-09-03] MEDS ORDERED: D5% in Water 1,000 ML IVC PRN (16:31)
[2016-09-03] MEDS ORDERED: *HR* Dextrose 50 % in Water (Syg) 50 ML SYRINGE IVP PRN (16:31)
[2016-09-03] MEDS ORDERED: Dextrose Gel 15 GM PO PRN ×2 (16:31)
[2016-09-03 16:32] LABS: ABG Base Excess -1.3 mEq/L (-2.0 to 3.0); ABG Oxygen Saturation 91 % (95-98); ABG PO2 76 mmHg (85-104); ABG TCO2 31.3 mEq/L (20-26)
--- NOTE | 2016-09-03 16:33 | Internal Med Progress Note ---
<Dionna Cardenas - Last Filed: 09/03/16 16:31> Date of Encounter: 09/03/16 Time of Encounter: 09:30 - Assessment and plan (1) Acute respiratory failure with hypoxia and hypercapnia Current Visit: Yes Status: Acute Assessment and plan: Earlier today, patient was obtunded, unable to protect his airway (see event note) patient was intubated and is now sedated on mechanical ventilation. etiology multifactorial, possible non compliance with CPAP. There is likely a component of OHS as well. management per critical care team. (2) End stage renal disease on dialysis Current Visit: Yes Status: Chronic Assessment and plan: as per nephrology. patient states his dry weight is 120 kg, outpatient gets hemodialysis MWF with Dr. Vivar. (3) Obesity (BMI 30-39.9) Current Visit: Yes Status: Chronic (4) Systolic heart failure, chronic Current Visit: Yes Status: Acute Assessment and plan: last echo on 01/28/16 showed LVEF 35%, LV function moderate to severely reduced. mild concentric LVH, indeterminate diastolic funciton, RV significantly dilated with reduced funciton, RVSP 38, RA pressure 20, no obvious valvular dysfunction , mild pulmonary HTN, Plan: repeat echo with definity pending, as recommended by prior echo. Plan: dialysis as per nephrology. (5) Fluid overload Current Visit: Yes Status: Acute Assessment and plan: plan as above Qualifiers: Hypervolemia type: unspecified Qualified Code(s): E87.70 - Fluid overload, unspecified (6) Type 2 diabetes mellitus Current Visit: No Status: Acute Assessment and plan: uncontrolled diabetes. last A1C in 01/27/17 was 7.8%. plan: medium dose sliding scale insulin. Consult to engine head repairer. Qualifiers: Diabetes mellitus complication status: with kidney complications Diabetes mellitus complication detail: with chronic kidney disease Diabetes mellitus penitentiary insulin use: with penitentiary use Chronic kidney disease stage: on chronic dialysis Qualified Code(s): E11.22 - Type 2 diabetes mellitus with diabetic chronic kidney disease; N18.6 - End stage renal disease; Z79.4 - technician terminal and repeater (current) use of insulin; Z99.2 - Dependence on renal dialysis (7) Tobacco abuse Current Visit: No Status: Chronic Assessment and plan: nicotine patch PRN (8) ZAINAB (obstructive sleep apnea) Current Visit: Yes Status: Chronic Assessment and plan: Patient sees pulmonology out patient, undergoing CPAP titration. Patient appears noncompliant due to repeated no show appointments. (9) DVT prophylaxis Current Visit: No Status: Acute Assessment and plan: Heparin SQ - Subjective Interval history: 45 year old male evaluated at bedside. Patient was sitting at the edge of the bed dosing off, and was able to answer some questions. He appeared very drowsy and would answer most questions. He denies any nausea, vomiting, fever, chills. He denies any further complaints today. - Constitutional Vitals: Temp Pulse Resp BP Pulse Ox 96.2 F L 92 12 86/71 97 09/03/16 13:49 09/03/16 15:41 09/03/16 16:11 09/03/16 16:11 09/03/16 16:11 General appearance: Present: mild distress, A&O X 3, morbidly obese - Head Head exam: Present: atraumatic, normocephalic - Neck Neck exam general surgery: Present: supple, trachea midline - Respiratory Respiratory exam: Present: wheezes Additional comments: decreased breath sounds noted throughout, with wheezing. - Cardiovascular Cardiovascular exam: Present: tachycardia - GI/Abdominal GI/Abdominal exam: Present: distended, firm, normal bowel sounds. Absent: tenderness Additional comments: firm, distended, no fluid wave appreciated. - Extremities Exam Additional comments: bilateral significant venous stasis present. - Neurological Exam Neurological exam: Present: alert, oriented X3 (patient was falling asleep during exam. ) - Skin Additional comments: patient has many tattoos present throughout body. Internal Medicine: Result - Labs CBC & Chem 7: 09/03/16 06:29 09/03/16 06:29 Labs: Short CBC 09/03/16 Range/Units 06:29 WBC 7.4 (4.3-11.1) K/mcL Hgb 13.6 (12.9-16.9) g/dL Hct 44.2 (37.5-50.1) % Plt Count 89 L (140-400) K/mcL Neutrophils # 5.6 (1.6-8.9) K/mcL BMP 09/03/16 06:29 Sodium 141 Potassium 4.2 Chloride 100 Carbon Dioxide 25 BUN 36 H Creatinine 8.41 H Glucose 166 H Calcium 8.5 L Cardiac Enzymes 09/03/16 Range/Units 06:29 Troponin I 0.21 H* (0-0.03) ng/mL - ABG Interpretation ABG results: ABG ABG pH 7.14 pH Units (7.32-7.45) L* 09/03/16 13:55 ABG pCO2 95 mmHg (35-45) H* 09/03/16 13:55 ABG pO2 62 mmHg (85-104) L 09/03/16 13:55 ABG O2 Saturation 83 % (95-98) L 09/03/16 13:55 PT/INR, D-dimer PT 14.1 Seconds (9.4-12.1) H 09/03/16 06:29 - Impressions Impressions Chest CT 09/03/16 11:00 IMPRESSION: 1. Cardiomegaly with a small pericardial effusion. 2. There are bilateral pleural effusions with associated bibasilar atelectasis, right side greater than left, new since the previous CT on 08/01/2012. 3. Thickening of bilateral adrenal glands, likely related to adrenal hyperplasia. 4. Splenomegaly. 5. The bones are sclerotic suggesting underlying endocrine/metabolic dysfunction. Given that the patient is on dialysis, this is likely related to renal osteodystrophy. D/ : / 09/03/2016 11:40:52 Roberto Wynn MD / [email or web address] Interpreting Provider: Roberto Wynn MD Chest X-Ray 09/03/16 15:03 IMPRESSION: 1. The endotracheal tube tip is located 3.7 cm above the mike. The OG tube tip is incompletely visualized. 2. Cardiomegaly with pulmonary edema, bilateral pleural effusions, and bibasilar atelectasis, not appreciably changed. D/ /03/2016 16:08:40 Roberto Wynn MD / mahnaz Interpreting Provider: Roberto Wynn MD KUB X-Ray 09/03/16 15:20 IMPRESSION: The enteric tube is in appropriate position in the stomach. D/ /03/2016 16:07:58 Osmar Lynn MD / angelic Interpreting Provider: Osmar Lynn MD Consult Discharge Plan - Plan Referrals: Arthur Pozo MD [Primary Care Provider] - 09/22/16 9:45 am (Please follow up as schedule...) <Cuauhtemoc Mcneil P - Last Filed: 09/14/16 18:12> Date of Encounter: 09/14/16 - Constitutional Vitals: Temp Pulse Resp BP Pulse Ox 96.2 F L 87 13 85/61 92 09/03/16 13:49 09/03/16 16:10 09/03/16 17:40 09/03/16 17:40 09/03/16 17:40 Internal Medicine: Result - Labs CBC & Chem 7: 09/14/16 04:44 09/14/16 04:44 - ABG Interpretation ABG results: ABG ABG pH 7.19 pH Units (7.32-7.45) L* 09/03/16 16:20 ABG pCO2 76 mmHg (35-45) H* 09/03/16 16:20 ABG pO2 76 mmHg (85-104) L 09/03/16 16:20 ABG O2 Saturation 91 % (95-98) L 09/03/16 16:20 PT/INR, D-dimer PT 14.1 Seconds (9.4-12.1) H 09/03/16 06:29 - Impressions Impressions Chest X-Ray 09/03/16 17:30 IMPRESSION: No acute process. Stable cardiomegaly Right internal jugular catheter in place terminating in the SVC D/ / Hiram Davila MD / Hiram Davila MD Interpreting Provider: Hiram Davila MD - Attending Attestation I examined this patient and my medical decision-making was reviewed with the REMARKETING REP/PA/Advanced Practice Nurse/Resident Physician. I agree with the documented findings, disposition and treatment plan as described except to the extent set forth below.
[2016-09-03 16:37] LABS: ABG PCO2 76 mmHg (35-45); ABG PH 7.19 pH Units (7.32-7.45)
[2016-09-03] MEDS ORDERED: Norepinephrine 4 MG in D5% in Water 250 ML IVC SCH (16:45)
[2016-09-03] MEDS ORDERED: 0.9 % Sodium Chloride 500 ML ONE (16:59)
--- NOTE | 2016-09-03 17:49 | Event Note ---
Date of Encounter: 09/03/16 Time of Encounter: 17:39 Patient examined, chart and all data reviewed as well as imaging studies of the chest. As outlined by Dr. Bermudez, this 45-year-old obese black male with multiple comorbidities which include end-stage renal disease, obesity hypoventilation syndrome with obstructive sleep apnea as well as concurrent COPD , cardiomyopathy with biventricular failure and pulmonary hypertension, diabetes among other issues was admitted to the hospital given significant decline of mental status. Reportedly he was minimally to unresponsive in the home setting. The patient was notably acutely on chronic hypercapnic and hypoxic at the time of this presentation to the hospital initially placed on noninvasive ventilatory support failed to improve clinically and then subsequently was transferred to the intensive care unit. The patient was then subsequently successfully intubated and placed on mechanical ventilatory support. The patient became hypotensive and pressors were initiated. Bedside ultrasound evaluation of the heart disclose significantly impaired right and left ventricular function, dilation of the IVC. Formal echocardiogram verified these findings. Review of systems is obviously unobtainable from the patient in light of his current situation. Examination this is an obese black male currently orally intubated. (Precedex infusion) he does respond to noxious stimuli moving all extremities, pupillary and gag responses are intact. Neck exam notable for jugular venous prominence neck is supple. Chest exam reveals reduced breath sounds throughout all hurtado particularly over the right base vein crackles as well. Cardiac exam laterally displaced prominent PMI regular rate gallop is present. Faint apical murmur. The abdominal exam reveals central obesity with striate. There is mild edema over the lower abdominal wall. The extremities reveal chronic edema and venous stasis changes over both lower extremities. There is edema over the thigh region and the scrotal area as well. Left upper AV fistula is in place and functional with thrill and bruit. Skin exam reveals stasis changes over the lower extremities as well as multiple tattoos over the chest region and upper extremity. Neurologic exam notable for the features as previously outlined. Admission chest x-ray post intubation reveals cardiomegaly and pulmonary vascular congestive changes consistent with pulmonary venous hypertension, mild enlargement of the main pulmonary arteries and the appropriately positioned endotracheal tube. Admission chest CT scans notable for cardiomegaly, enlargement of right and left heart structures as well as enlargement of the main pulmonary arteries, small to moderate-sized right pleural effusion with compressive atelectasis. Her serial arterial blood gases are notable for acute chronic respiratory acidosis and hypoxemia. The troponin was mildly elevated however serial evaluations dating back some time revealed chronic and persistent mild troponin elevation. Impressions #1 acute on chronic respiratory failure with hypoxia and hypercapnia due to the etiologies as outlined in Dr. Bermudez and his comprehensive note #2 encephalopathy toxic metabolic presumably related to medications consumed in the home setting prolonged half-life of the same due to end-stage renal disease #3 cardiomyopathy with findings of acute decompensated systolic heart failure and biventricular enlargement and dysfunction per prior and current echocardiographic #4 history of diabetes, poor presumably poorly controlled #5 noncompliance with medical therapy as noted from review of old medical records. Plan patient will be maintained on full ventilatory support continuous sedation. Vasopressor agent will be initiated for hypotension and particularly in light of the patient's poor cardiac performance as discern from echocardiography. DVT and ulcer prophylaxis will be provided. The patient will require dialytic support however his tolerance of the same will be limited by hypotension and need for vasopressors. Overall, this patient has a very poor prognosis in light of his multiple medical issues and lack of compliance with medical therapy. E [place] [phone]
--- NOTE | 2016-09-03 17:51 | Procedure Note ---
Date of procedure: 09/03/16 Pre-op diagnosis: Hypotension Post-op diagnosis: same Procedure: Sterile maximal barrier technique, sterile ultrasound guidance was utilized by Dr. Bermudez for the placement of a multilumen central venous catheter right IJ approach. Single stick was utilized to cannulate the internal jugular vein and subsequently following dilation multilumen catheter was placed without difficulty. All ports were flushed device was sutured into position. Follow-up chest radiograph revealed appropriate placement. This procedure was performed by Dr. Bermudez under my direct supervision. Maria Hoover
--- NOTE | 2016-09-03 17:54 | Procedure Note ---
Date of procedure: 09/03/16 Pre-op diagnosis: Hypotension Post-op diagnosis: same Procedure: Using maximal sterile barrier technique, sterile ultrasound guidance, a right radial arterial catheter was placed without difficulty, single stick by Dr. Bermudez under my direct supervision. The device was transduced which revealed appropriate waveform. Subsequently, the device device was flushed on multiple occasions and sutured into position. No untoward events were noted and specifically, there was evidence to suggest adequate collateral blood flow prior to placement and no ischemia of the extremity following placement of the device. E [place]
--- NOTE | 2016-09-03 18:40 | Event Note ---
<Cam Corona - Last Filed: 09/03/16 18:42> Date of Encounter: 09/03/16 Time of Encounter: 18:36 Called to ICU by staff auditor for Pulse oximetry in th 60s. Arrived to the patient shortly after. Patient was being bagged ( previously on vent). Pulse oximeter was changed and saturations were 100%. Placed back on vent. Exam notable for bilateral wheezes, protuberant abdomen with fluid wave. Fistula with thrill and bruit in the right AC. Limbs are cool but normal skin tone with the exception of the lower extremities that appear to have venous stasis changes. Likely from mucous plug or false reading of pulse oximeter. We will check ABg to ensure acurate reading at this time. Repeat CXR. Will have PM shift follow up with results if not available before end of shift. <Cuauhtemoc Mcneil - Last Filed: 09/06/16 17:57> Date of Encounter: 09/06/16
[2016-09-03 18:43] LABS: ABG Oxygen Saturation 100 % (95-98); ABG PCO2 62 mmHg (35-45); ABG PH 7.23 pH Units (7.32-7.45); ABG PO2 301 mmHg (85-104); ABG TCO2 27.9 mEq/L (20-26); Blood Gas FiO2 100 %
[2016-09-03] MEDS: Lacri-Lube 3.5 GM TUBE BOTH EYES SCH ×3 (19:10→23:53)
[2016-09-03] MEDS: Insulin LISPRO 300 UNITS/3 ML VIAL SQ SCH ×2 (19:14→23:54)
[2016-09-03] MEDS: *HR* Heparin 5,000 UNIT/ML VIAL SQ SCH (20:28)
[2016-09-03] MEDS ORDERED: Insulin DETEMIR 100 UNIT/ML X5UNITS SQ SCH (21:00)
[2016-09-03] MEDS ORDERED: Chlorhexidine Rinse 15 ML MOUTHWASH MM SCH (21:00)
[2016-09-03 21:31] LABS: Bilirubin,Urine Small (Negative); Blood,Urine Moderate (Negative); Clarity,Urine Cloudy (Clear); Color,Urine Dark Yellow (Yellow); Glucose,Urine (UA) 500 mg/dL (Normal); Ketones,Urine Negative (Negative); Leukocyte Esterase,Urine Small (Negative); Nitrite,Urine Negative (Negative); Protein,Urine >=1000 mg/dL (Neg-Trace); Specific Gravity,Urine 1.024 (1.010-1.025); Urobilinogen,Urine Normal (Normal)
[2016-09-03 21:34] LABS: Bacteria,Urine None Seen per hpf (None-Few); Hyaline Casts,Urine None Seen per lpf (None-Few); Squamous Epithelial Cell,Urine Many per lpf (None-Few); WBC,Urine 50-100 per hpf (0-3)
[2016-09-03 21:58] LABS: Amorphous Sediment,Urine Few (Few)
[2016-09-03] MEDS ORDERED: Budesonide/Formoterol 160/4.5 MDI IH SCH (22:00)
[2016-09-04 03:34] LABS: Albumin 2.9 g/dL (3.5-5.0); Albumin/Globulin Ratio 0.8 (1.1-2.2); Bilirubin,Total 0.9 mg/dL (0.2-1.2); Calcium 8.1 mg/dL (8.6-10.8); Globulin 3.7 g/dL (2.4-3.5); Potassium 4.5 mEq/L (3.5-4.5); Total Protein 6.6 g/dL (6.0-8.3)
[2016-09-04 03:35] LABS: Albumin 2.9 g/dL (3.5-5.0); Albumin/Globulin Ratio 0.8 (1.1-2.2); Bilirubin,Direct 0.4 mg/dL (0.0-0.5); Bilirubin,Indirect 0.5 mg/dL (0.0-1.2); Bilirubin,Total 0.9 mg/dL (0.2-1.2); Globulin 3.7 g/dL (2.4-3.5); Total Protein 6.6 g/dL (6.0-8.3)
[2016-09-04] MEDS: Dexmedetomidine HCl 400 MCG/100 ML MLS IVC SCH ×4 (03:40→21:17)
[2016-09-04] MEDS: Ipratropium/Albuterol Neb 3 ML IH SCH ×4 (03:41→22:14)
[2016-09-04] MEDS: Lacri-Lube 3.5 GM TUBE BOTH EYES SCH ×5 (03:42→21:16)
[2016-09-04 03:50] LABS: Hemoglobin 14.2 g/dL (12.9-16.9); Mean Corpuscular HGB Conc 30.9 g/dL (31.6-35.5); Mean Corpuscular Hemoglobin 27.2 pg (28.0-33.3); Mean Corpuscular Volume 88.1 fL (83.0-100.0); Mean Platelet Volume 12.2 fL (9.4-12.4); Red Blood Count 5.22 M/mcL (4.19-5.50); Red Cell Distribution Width 17.1 % (11.5-14.5)
[2016-09-04 03:51] LABS: Platelet Count 99 K/mcL (140-400)
[2016-09-04 04:05] LABS: ABG Base Excess -3.3 mEq/L (-2.0 to 3.0); ABG HCO3 28.2 mEQ/L (21-27); ABG Oxygen Saturation 87 % (95-98); ABG PH 7.15 pH Units (7.32-7.45); ABG PO2 69 mmHg (85-104); ABG TCO2 30.7 mEq/L (20-26)
[2016-09-04 04:06] LABS: ABG PCO2 81 mmHg (35-45); Blood Gas FiO2 35 %
[2016-09-04 04:10] LABS: INR 1.3; Prothrombin Time 13.7 Seconds (9.4-12.1)
[2016-09-04 04:13] LABS: Activated Partial Thrombo Time 32.1 Seconds (26.0-36.0)
[2016-09-04 05:10] LABS: Bilirubin,Urine Small (Negative); Blood,Urine Large (Negative); Clarity,Urine Cloudy (Clear); Color,Urine Dark Yellow (Yellow); Glucose,Urine (UA) 250 mg/dL (Normal); Ketones,Urine Trace mg/dL (Negative); Leukocyte Esterase,Urine Small (Negative); Nitrite,Urine Negative (Negative); Protein,Urine >=1000 mg/dL (Neg-Trace); Specific Gravity,Urine 1.023 (1.010-1.025); Urobilinogen,Urine Normal (Normal)
[2016-09-04 05:11] LABS: Hyaline Casts,Urine None Seen per lpf (None-Few); RBC,Urine TNTC per hpf (0-3); Squamous Epithelial Cell,Urine Many per lpf (None-Few); WBC,Urine 30-50 per hpf (0-3)
[2016-09-04 05:15] LABS: Amphetamine Screen,Urine Negative ng/mL (Cutoff=1000); Barbiturate Screen,Urine Negative ng/mL (Cutoff=200); Benzodiazepines Screen,Urine Negative ng/mL (Cutoff=200); Cannabinoid Screen,Urine Negative ng/mL (Cutoff = 50); Cocaine Screen,Urine Negative ng/mL (Cutoff= 300); Opiate Screen,Urine Negative ng/mL (Cutoff=300); Phencyclidine Screen,Urine Negative ng/mL (Cutoff=25)
[2016-09-04] MEDS: Insulin LISPRO 300 UNITS/3 ML VIAL SQ SCH ×3 (05:17→18:06)
[2016-09-04] MEDS: *HR* Heparin 5,000 UNIT/ML VIAL SQ SCH ×3 (05:18→21:14)
[2016-09-04 05:25] LABS: Bacteria,Urine Many per hpf (None-Few)
[2016-09-04 06:21] LABS: ABG Base Excess -1.6 mEq/L (-2.0 to 3.0); ABG HCO3 25.6 mEQ/L (21-27); ABG Oxygen Saturation 95 % (95-98); ABG PCO2 52 mmHg (35-45); ABG PO2 81 mmHg (85-104); ABG TCO2 27.2 mEq/L (20-26)
[2016-09-04 06:22] LABS: Blood Gas FiO2 60 %
[2016-09-04] MEDS ORDERED: 0.9 % Sodium Chloride 1,000 ML PRIME SCH (07:54)
[2016-09-04] MEDS ORDERED: D5% in Water 1,000 ML IVC PRN (07:54)
[2016-09-04] MEDS ORDERED: Lacri-Lube 3.5 GM TUBE BOTH EYES PRN (07:54)
[2016-09-04] MEDS ORDERED: Naloxone 0.4 MG/ML INJ IVP PRN (07:54)
[2016-09-04] MEDS ORDERED: Dextrose Gel 15 GM PO PRN ×2 (07:54)
[2016-09-04] MEDS ORDERED: *HR* Dextrose 50 % in Water (Syg) 50 ML SYRINGE IVP PRN (07:54)
[2016-09-04] MEDS ORDERED: Albuterol 2.5 MG/3 ML NEBULIZER IH PRN (07:54)
[2016-09-04] MEDS ORDERED: 0.9 % Sodium Chloride 250 ML IVC PRN ×2 (07:54→09:47)
[2016-09-04] MEDS ORDERED: Azithromycin 500 MG in D5% in Water 250 ML IVPB SCH (08:00)
[2016-09-04] MEDS ORDERED: hydrALAZINE 25 MG TABLET PO SCH (09:00)
[2016-09-04] MEDS ORDERED: Patient Taking Own Medication 1 EACH PO SCH (09:00)
[2016-09-04] MEDS ORDERED: Pantoprazole 40 MG VIAL IVP SCH (09:00)
[2016-09-04] MEDS ORDERED: Isosorbide MONOnitrate (24 HR) 30 MG TAB.ER.24H PO SCH (09:00)
[2016-09-04] MEDS: Renal Vitamin 1 MG CAPSULE PO SCH (09:24)
[2016-09-04] MEDS: Chlorhexidine Rinse 15 ML MOUTHWASH MM SCH ×2 (09:24→21:14)
--- NOTE | 2016-09-04 09:26 | ECHO - Doppler Report ---
Echocardiogram Name: Eduar Hatch Date of Study: 09/03/2016 Date: 1970 Ht: 71.0 in Medical Record#: [id number] Age: 45 Wt: 271.0 lb Gender: Male BSA: 2.4 Order #: [id number] Location: [facility] Room #: IC02 Reading Physician: Keo Almeida DO, ISABELL, JUANITA LEDESMA [employer] Specialist: Lo Looney RDCS Ordering Physician: Andrea Rodgers DO Primary Physician: Arthur Pozo MD Indications: Worsening CHF, ESRD Impressions: LVEF 20%. Mildly dilated left ventricle. Mild concentric left ventricular hypertrophy. Probable moderate left ventricular diastolic dysfunction. Severe global left ventricular systolic dysfunction. Mildly dilated right ventricle. Moderate right ventricular hypokinesis. Moderately dilated left atrium. Severely dilated right atrium. No pulmonary hypertension identified. RVSP could be underestimated. There is a small pericardial effusion present. There is no echocardiographic evidence of tamponade. Compared to prior report, LV function has worsened. Left Ventricular Wall Motion: Rest Echo Findings The apex, apical inferior, mid inferior, basal inferior, apical anterior, mid anterior, basal anterior, apical septal, mid inferior septal, basal inferior septal, apical lateral, mid anterior lateral, basal anterior lateral, mid anterior septal, mid inferior lateral, basal anterior septal and basal inferior lateral espinal were hypokinetic. Findings: Study Quality * Technically adequate exam. ECG Findings * Normal sinus rhythm. Left Ventricle * LVEF 20%. * Mildly dilated left ventricle. * Mild concentric left ventricular hypertrophy. * Probable moderate left ventricular diastolic dysfunction. * Severe global left ventricular systolic dysfunction. Right Ventricle * Mildly dilated right ventricle. * Moderate right ventricular hypokinesis. Left Atrium * Moderately dilated left atrium. Right Atrium * Severely dilated right atrium. Interatrial Septum * No obvious evidence of PFO by color Doppler. Aortic Valve * Grossly, trileaflet appearing aortic valve. * Focal area of calcification on the left coronary cusp. * No aortic regurgitation. * No aortic stenosis. Mitral Valve * Normal mitral valve structure and function. * No mitral stenosis. * No mitral regurgitation. Tricuspid Valve * Normal tricuspid valve structure. * Mild tricuspid regurgitation. * No pulmonary hypertension identified. RVSP could be underestimated. * Estimated RA pressure is 15-20 mmHg. Pulmonic Valve * Normal pulmonic valve structure and function. * No pulmonic regurgitation. Aorta * Normally sized aortic root. Pericardium * There is a small pericardial effusion present. * There is no echocardiographic evidence of tamponade. IVC * The IVC is dilated. * < 50% respiratory change. Pulmonary Artery * Normal visualized portions of the main pulmonary artery. History Hypertension Diabetes Hypercholesteremia Family History of CAD Congestive Heart Failure 01/28/2016 a Previous Echo was performed. Measurements: BP: 100/ 51 2D Normal Values RVIDd: 4.65 cm <2.7 cm IVSd: 1.20 cm 0.6 - 1.0 cm LVIDd: 6.00 cm 3.7 - 5.6 cm LVPWd: 1.20 cm 0.6 - 1.1 cm LVIDs: 5.11 cm 1.5 - 3.6 cm AO: 2.90 cm < 4.0 cm LA: 4.60 cm 2.0 - 4.0cm %FS: 7.09 cm >25 % LA volume: 77 Mitral Valve Peak E:.64 m/sec Peak A:.44 m/sec E/A Ratio:1.5 Tricuspid Valve TV Regurg Peak Grad: 10.00mmHg TV Regurg Peak Mic: 1.62m/sec Updated by Keo Almeida DO, ISABELL, JUANITA LEDESMA on 09/04/2016 9:21:58 AM electronically signed on 09/04/2016 9:22:37 AM with status of Final Wall Motion Salgado: 1=Normal, 2=Hypokinesis, 3=Akinesis, 4=Dyskinesis, 5=Aneurysmal, 6=Hyperkinetic, X=Not Visualized (Blank)=Missing
[2016-09-04] MEDS: Pantoprazole 40 MG VIAL IVP SCH (09:27)
[2016-09-04] MEDS: Nicotine 21 MG PATCH.TD24 TD SCH (09:29)
--- NOTE | 2016-09-04 09:46 | Nephrology Progress Note ---
Date of Encounter: 09/04/16 Time of Encounter: 09:44 - Assessment and Plan (1) End stage renal disease on dialysis Current Visit: Yes Status: Chronic Patient will undergo dialysis today. We will use a low temperature dialysate as well as an extended dialysis running time to try and prevent worsening hypotension. (2) Fluid overload Current Visit: Yes Status: Acute Qualifiers: Hypervolemia type: unspecified Qualified Code(s): E87.70 - Fluid overload, unspecified (3) Nonischemic cardiomyopathy Current Visit: No Status: Chronic (4) Respiratory acidosis Current Visit: No Status: Acute (5) ZAINAB (obstructive sleep apnea) Current Visit: Yes Status: Chronic Subjective Interval history: Patient is sedated on the ventilator. He is on low-dose levo fed for blood pressure support. We are going to attempt dialysis today. We will use a lower temperature dialysate to hopefully preserve blood pressure. Objective - Vital Signs Vital signs: Vital Signs Temp Pulse Resp BP Pulse Ox 09/04/16 09:30 100 09/04/16 09:00 85 16 82/58 100 09/04/16 08:17 100 09/04/16 08:09 98.3 F 09/04/16 07:34 16 100 09/04/16 07:26 84 15 96/67 100 09/04/16 07:00 84 15 96/67 100 09/04/16 05:55 84 16 87/61 100 09/04/16 05:00 87 16 118/78 100 09/04/16 04:12 98.1 F 09/04/16 03:44 78 12 84/60 100 09/04/16 03:42 12 09/04/16 02:48 78 12 81/57 100 09/04/16 02:44 78 12 82/57 100 09/04/16 01:43 78 12 82/57 100 09/04/16 00:59 79 12 91/63 100 09/04/16 00:19 12 100 09/04/16 00:10 97.9 F 09/03/16 23:50 78 12 92/64 100 09/03/16 22:43 77 12 95/66 100 09/03/16 22:09 12 100 09/03/16 21:52 79 12 117/83 100 09/03/16 21:00 80 12 84/57 100 09/03/16 20:26 97.7 F 09/03/16 20:05 12 100 09/03/16 19:49 76 12 106/76 100 09/03/16 19:33 76 100 09/03/16 19:00 76 12 103/75 100 09/03/16 18:00 75 12 101/73 100 09/03/16 17:00 12 61/47 97 Intake and Output 09/03/16 09/04/16 09/04/16 23:59 07:59 15:59 Intake Total 150 / 150 430 / 430 Output Total Balance 140 / 140 425 / 425 Intake: IV Fluids 150 / 150 430 / 430 PRECEDEX 400 mcg In 100 95 / 95 100 / 100 ml @ 0.2 MCG/KG/HR 6.15 mls/hr IVC .[id number] [facility] Rx#:[id number] Levophed 4 MG In Dextrose 55 / 55 80 / 80 5% 250 ML @ 8 MCG/MIN 30 mls/hr IVC CONT [facility] Rx#: [id number] Zithromax 500 mg In 250 / 250 Dextrose 5% 250 ML @ 252 mls/hr IVPB Q24H [facility] Rx#: [id number] Oral 0 / 0 0 / 0 Output: Urine 0 / 0 Catheter Other: Weight 127.686 kg 130.4 kg Blood Glucose* 204 101 Patient Weight 09/04/16 23:59 Weight 130.4 kg - General Appearance Exam: Patient is sedated on the ventilator. He is afebrile. Blood pressure is in the 70s to 90s systolic. He is on low-dose levo fed. PCO2 is improving. Heart regular rate and rhythm. Lungs diminished breath sounds. Abdomen is obese. No tenderness guarding or rigidity. He has chronic edema of his lower extremities. He has a functioning AV fistula in the left arm. - Lab 09/04/16 03:10 09/04/16 03:10 Most recent lab results ABG pH 7.30 pH Units (7.32-7.45) L D 09/04/16 06:13 ABG pCO2 52 mmHg (35-45) H D 09/04/16 06:13 ABG pO2 81 mmHg (85-104) L 09/04/16 06:13 ABG HCO3 25.6 mEQ/L (21-27) 09/04/16 06:13 ABG O2 Saturation 95 % (95-98) 09/04/16 06:13 Calcium 8.1 mg/dL (8.6-10.8) L 09/04/16 03:10 Phosphorus 7.8 mg/dL (2.3-4.7) H 09/03/16 06:29 Magnesium 2.0 mg/dL (1.6-2.6) 09/03/16 06:29 Consult Discharge Plan - Plan Referrals: Arthur Pozo MD [Primary Care Provider] -
[2016-09-04] MEDS: Ammonium Lactate 30 APPL/225 GM BOTTLE TP SCH ×2 (10:23→21:16)
[2016-09-04] MEDS: Insulin DETEMIR 100 UNIT/ML X5UNITS SQ SCH ×2 (10:23→21:15)
[2016-09-04 10:44] LABS: Hepatitis B Surface Antigen Nonreactive (Nonreactive)
[2016-09-04] MEDS: FentaNYL (PF) 1,000 MCG in 0.9 % Sodium Chloride 80 ML IVC SCH ×2 (11:08→22:38)
--- NOTE | 2016-09-04 12:57 | Pulmonology Progress Note ---
Date of Encounter: 09/04/16 Time of Encounter: 07:00 Assessment and Plan (1) Acute and chronic respiratory failure Current Visit: Yes Status: Acute 1. Acute on chronic respiratory failure with hypoxia and hypercapnea Likely multifactoral: Pulmonary edema secondary to acute exacerbation CHF, fluid overload, ESRD, medication, obesity, Acute exacerbation COPD Intubated 09/03/16 Right IJ central line placed 09/03/16 Right radial arterial line placed 12/03/16 Continue sedation and ventilation with vasopressor support. Continue dialysis per nephrology. - Sedation: Precedex, Fentanyl - Pulm: Symbicort, Duoneb - Levophed for MAP >65 - Discontinue antibioitics; no suspicion for community acquired pneumonia. Troponin elevated; this appears to be his baseline/chronic level. 2. Toxic metabolic encephalopathy Likely related to home medications for chronic pain in the setting of ESRD. Scheduled: Lyrica, Cymbalta PRN: Lidocaine cream, Ibuprophen, Morphine 3. Obesity hypoventilation syndrome - Plan as above 4. Acute exacerbation COPD - Plan as above 5. ZAINAB - Plan as above 6. Acute decompensated heart failure Echo 09/03/16: LVEF 20%. Dilated LV with concentric LV hypertrophy. Severe global LV systolic dysfunction. Probable moderate LV diastolic dysfunction. Midly dilated RV with moderate RV hypokinesis. LA mildly dilated. RA severely dilated. No pulmohary HTN. Small pericardial effusion without echogenic evidence of tamponade. Echo 01/28/16: LVEF 35%. Dilated RV. Reduced LV function. - Plan as above - Hold Imdur 30mg PO Qday - Crestor 20mg PO QHS - Hold Lisinopril 5mg PO Qday - Hold Hydralazine 25mg PO BID - Echocardiogram pending. 7. ESRD on dialysis HD dependent (M, W, F) - Renal vitamin 1mg PO Qday - Nephrology on board & their input appreciated. - Patient is producing minimal urine. May discontinue Green. 8. DM II - POC glucose Q6 - Lantus 20mg SQ BID - SS medium Other: DVT prophylax: Heparin PUD prophylax: Protonix Qualifiers: Qualified Code(s): J96.21 - Acute and chronic respiratory failure with hypoxia; J96.22 - Acute and chronic respiratory failure with hypercapnia (2) Chronic pain syndrome Current Visit: Yes Status: Acute (3) Obesity hypoventilation syndrome Current Visit: Yes Status: Acute (4) COPD (chronic obstructive pulmonary disease) Current Visit: No Status: Chronic Qualifiers: COPD type: unspecified COPD Qualified Code(s): J44.9 - Chronic obstructive pulmonary disease, unspecified (5) ZAINAB (obstructive sleep apnea) Current Visit: Yes Status: Chronic (6) Systolic heart failure, chronic Current Visit: Yes Status: Acute (7) End stage renal disease on dialysis Current Visit: Yes Status: Chronic (8) Diabetes mellitus Current Visit: Yes Status: Chronic Qualifiers: Diabetes mellitus type: type 2 Diabetes mellitus complication detail: with chronic kidney disease Diabetes mellitus usp insulin use: unspecified usp insulin use status Chronic kidney disease stage: on chronic dialysis Qualified Code(s): E11.22 - Type 2 diabetes mellitus with diabetic chronic kidney disease; N18.6 - End stage renal disease Subjective Principal diagnosis: acute on chronic respiratory failure with hypoxia and hypercapnea Interval history: Overnight, patient's continuous monitoring showed hypoxia. The overnight resident replaced the patient's pulse-ox which resolved the hypoxia alarm. Mr. Hatch is sedated and intubated. He appears comfortable. No family at bedside at this time. Objective PUL Vital signs: Last Vital Signs Temp 98.5 F 09/04/16 11:00 Pulse 88 09/04/16 12:00 Resp 15 09/04/16 12:00 BP 76/55 09/04/16 12:00 Pulse Ox 99 09/04/16 12:00 General appearance: no acute distress, other (intubated, sedated) Neck: supple Effort: normal Auscultation: bilateral: wheezes (with coarse breath sounds) Cardiovascular: regular rate and rhythm Gastrointestinal: normoactive bowel sounds, soft, non-tender, non-distended, other (obese) Integumentary: normal Extremities: no cyanosis, no edema, no clubbing, pink and warm, pulses normal Musculoskeletal: no deformities pupils equal and round Ventilator Settings Ventilator Settings: Ventilator Settings, Last 8 Hours Ventilator Mode A/C Ventilator Mode A/C Ventilator Mode A/C Ventilator Mode A/C Ventilator Mode A/C Ventilator Mode A/C Ventilator Mode A/C Ventilator Tidal Volume 550 Setting Ventilator Tidal Volume 550 Setting Ventilator Tidal Volume 550 Setting Ventilator Tidal Volume 550 Setting Ventilator Tidal Volume 550 Setting Ventilator Tidal Volume 550 Setting Ventilator Tidal Volume 550 Setting Ventilator Respiratory Rate 16 Setting Ventilator Respiratory Rate 16 Setting Ventilator Respiratory Rate 16 Setting Ventilator Respiratory Rate 16 Setting Ventilator Respiratory Rate 16 Setting Ventilator Respiratory Rate 16 Setting Ventilator Respiratory Rate 16 Setting Actual Respiratory Rate 16 Actual Respiratory Rate 16 Actual Respiratory Rate 16 Actual Respiratory Rate 16 Actual Respiratory Rate 16 Actual Respiratory Rate 16 Positive End Expiratory 5 Pressure Positive End Expiratory 5 Pressure Positive End Expiratory 5 Pressure Positive End Expiratory 5 Pressure Positive End Expiratory 5 Pressure Positive End Expiratory 5 Pressure Positive End Expiratory 5 Pressure Peak Inspiratory Airway 40 Pressure Peak Inspiratory Airway 40 Pressure Peak Inspiratory Airway 37 Pressure Peak Inspiratory Airway 36 Pressure Peak Inspiratory Airway 35 Pressure Peak Inspiratory Airway 36 Pressure Results - Laboratory Findings CBC and BMP: 09/04/16 03:10 09/04/16 03:10 ABG ABG pH 7.30 pH Units (7.32-7.45) L D 09/04/16 06:13 ABG pCO2 52 mmHg (35-45) H D 09/04/16 06:13 ABG pO2 81 mmHg (85-104) L 09/04/16 06:13 ABG O2 Saturation 95 % (95-98) 09/04/16 06:13 PT/INR, D-dimer PT 13.7 Seconds (9.4-12.1) H 09/04/16 03:10 Abnormal lab findings: Abnormal lab results MCH 27.2 pg (28.0-33.3) L 09/04/16 03:10 MCHC 30.9 g/dL (31.6-35.5) L 09/04/16 03:10 RDW 17.1 % (11.5-14.5) H 09/04/16 03:10 Plt Count 99 K/mcL (140-400) L 09/04/16 03:10 Nucleated RBCs/100 WBC 0.4 /100 WBC (0) H 09/03/16 06:29 Platelet Estimate Decreased (Normal) L 09/03/16 06:29 Immature Plt Fraction 6.9 % (1.1-6.1) H 09/03/16 06:29 PT 13.7 Seconds (9.4-12.1) H 09/04/16 03:10 ABG pH 7.30 pH Units (7.32-7.45) L D 09/04/16 06:13 ABG pCO2 52 mmHg (35-45) H D 09/04/16 06:13 ABG pO2 81 mmHg (85-104) L 09/04/16 06:13 ABG Total CO2 27.2 mEq/L (20-26) H 09/04/16 06:13 BUN 49 mg/dL (8-26) H D 09/04/16 03:10 Creatinine 9.84 mg/dL (0.72-1.25) H 09/04/16 03:10 Est GFR ( Amer) 7 (> 60) L 09/04/16 03:10 Est GFR (Non-Af Amer) 6 (> 60) L 09/04/16 03:10 BUN/Creatinine Ratio 5 (6-26) L 09/04/16 03:10 POC Glucose 101 (58-89) H 09/04/16 05:23 Calculated Osmolality 305 (280-300) H 09/04/16 03:10 Calcium 8.1 mg/dL (8.6-10.8) L 09/04/16 03:10 Phosphorus 7.8 mg/dL (2.3-4.7) H 09/03/16 06:29 Alkaline Phosphatase 429 Units/L (38-126) H 09/04/16 03:10 Troponin I 0.13 ng/mL (0-0.03) H* 09/03/16 21:00 B-Natriuretic Peptide 1949 pg/mL (0-100) H 09/04/16 03:10 Albumin 2.9 g/dL (3.5-5.0) L 09/04/16 03:10 Globulin 3.7 g/dL (2.4-3.5) H 09/04/16 03:10 Albumin/Globulin Ratio 0.8 (1.1-2.2) L 09/04/16 03:10 Triglycerides 184 mg/dL (< 150) H 09/03/16 06:29 VLDL Cholesterol, Calc 37 mg/dL (< 31) H 09/03/16 06:29 HDL Cholesterol 29 mg/dL (40-59) L 09/03/16 06:29 Urine Clarity Cloudy (Clear) A 09/04/16 04:59 Urine Protein >=1000 mg/dL (Neg-Trace) H 09/04/16 04:59 Urine Glucose (UA) 250 mg/dL (Normal) H 09/04/16 04:59 Urine Ketones Trace mg/dL (Negative) H 09/04/16 04:59 Urine Blood Large (Negative) H 09/04/16 04:59 Urine Bilirubin Small (Negative) H 09/04/16 04:59 Ur Leukocyte Esterase Small (Negative) H 09/04/16 04:59 Urine Microscopic RBC TNTC per hpf (0-3) H 09/04/16 04:59 Urine Microscopic WBC 30-50 per hpf (0-3) H 09/04/16 04:59 Ur Squamous Epith Cells Many per lpf (None-Few) H 09/04/16 04:59 Urine Bacteria Many per hpf (None-Few) H 09/04/16 04:59 Ur Culture Indicated? YES (NO) A 09/03/16 21:00 - Microbiology Findings Microbiology Findings: Microbiology, Last 48 Hours 09/04/16 04:59 Legionella Antigen - Final Urine,Clean Catch Streptococcus pneumoniae Antigen (M - Final - Diagnostic Findings Chest x-ray: report reviewed, image reviewed - Clinical Findings Intake & Output: Intake & Output 09/03/16 09/04/16 09/04/16 23:59 07:59 15:59 Intake Total 150 / 150 430 / 430 0 / 0 Output Total / 5 / 5 0 / 0 Balance 140 / 140 425 / 425 0 / 0 Weight 127.686 kg 130.4 kg Consult Discharge Plan - Plan Referrals: Arthur Pozo MD [Primary Care Provider] -
--- NOTE | 2016-09-04 13:01 | Event Note ---
Date of Encounter: 09/04/16 Time of Encounter: 12:58 Patient examined, chart and all data reviewed as well as imaging studies. Overnight, the patient had no acute events per discussion with nursing staff. The patient remains on full low-level ventilatory support. Patient still requires low dose Roland fed infusion order to maintain acceptable mean blood pressure. Examination reveals an obese black male he is orally intubated sedated but arousable, vitals review. Chest exam reduced breath sounds with crackles over the lower lung zones. Cardiac exam regular rate loud P2 as well as gallop noted. Abdominal exam central obesity soft bowel sounds are noted. Extremities warm to touch chronic edema noted lower extremities. Skin exam absence of rash or eruption, multiple tattoos. Neurologic exam limited however no spontaneous movement of all extremities with noxious stimuli. Impressions #1 acute and chronic respiratory failure with hypoxia and hypercapnia #2 obesity hypoventilation syndrome #3 sleep apnea obstructive variety #4 COPD #5 cor pulmonale #6 cardiomyopathy with acute systolic congestive heart failure #7 end-stage renal disease number a metabolic syndrome. Plan the patient will be maintained on ventilatory support at this time as well as continue with sedation. Given the lack of clinical findings and evidence of a respiratory infection, antibiotics will be discontinued (these were provided by the primary service for possible pneumonia for which there is no evidence at this time). Management was reviewed during multidisciplinary critical care rounds this morning. I also discussed the situation with with Dr. Vivar. Maria Hoover [phone]
[2016-09-04] MEDS: Norepinephrine 4 MG in D5% in Water 250 ML IVC SCH (18:23)
[2016-09-04] MEDS ORDERED: 0.9 % Sodium Chloride 2,000 ML ONE (20:25)
[2016-09-05] MEDS: Lacri-Lube 3.5 GM TUBE BOTH EYES SCH ×6 (00:10→20:07)
[2016-09-05] MEDS: Insulin LISPRO 300 UNITS/3 ML VIAL SQ SCH ×4 (00:10→18:00)
[2016-09-05] MEDS: Dexmedetomidine HCl 400 MCG/100 ML MLS IVC SCH ×9 (02:12→23:22)
[2016-09-05] MEDS: Ipratropium/Albuterol Neb 3 ML IH SCH ×4 (04:11→19:48)
[2016-09-05 04:28] LABS: Hemoglobin 15.1 g/dL (12.9-16.9); Immature Platelets 9.3 % (1.1-6.1); Mean Corpuscular HGB Conc 30.8 g/dL (31.6-35.5); Mean Corpuscular Hemoglobin 26.6 pg (28.0-33.3); Mean Corpuscular Volume 86.3 fL (83.0-100.0); Red Blood Count 5.68 M/mcL (4.19-5.50); Red Cell Distribution Width 17.7 % (11.5-14.5)
[2016-09-05 04:39] LABS: Calcium 8.7 mg/dL (8.6-10.8)
[2016-09-05] MEDS: *HR* Heparin 5,000 UNIT/ML VIAL SQ SCH ×3 (05:42→21:34)
[2016-09-05] MEDS: Renal Vitamin 1 MG CAPSULE PO SCH (08:28)
[2016-09-05] MEDS: Pantoprazole 40 MG VIAL IVP SCH (08:28)
[2016-09-05] MEDS: Chlorhexidine Rinse 15 ML MOUTHWASH MM SCH ×2 (08:29→19:42)
[2016-09-05] MEDS: Nicotine 21 MG PATCH.TD24 TD SCH (08:29)
--- NOTE | 2016-09-05 08:53 | Nephrology Progress Note ---
Date of Encounter: 09/05/16 Time of Encounter: 08:30 - Assessment and Plan (1) End stage renal disease on dialysis Current Visit: Yes Status: Chronic Acute on chronic respiratory failure. Intubated, sedated, currently not on pressors. ESRD. No HD today, will continue to follow Subjective Principal diagnosis: acute on chronic respiratory failure with hypoxia and hypercapnea Interval history: Intubated, sedated, no pressors. Nursing staff states difficult when sedation lightened. Objective - Vital Signs Vital signs: Vital Signs Temp Pulse Resp BP Pulse Ox 09/05/16 08:42 16 91/70 94 09/05/16 08:00 75 16 91/70 94 09/05/16 07:12 17 94/62 94 09/05/16 07:00 80 17 86/60 93 09/05/16 06:19 17 94/62 94 09/05/16 06:00 80 16 98/68 96 09/05/16 05:00 83 19 94/67 96 09/05/16 04:35 98.5 F 09/05/16 04:11 16 137/91 97 09/05/16 04:00 84 16 119/85 97 09/05/16 03:50 84 09/05/16 03:00 81 16 86/57 93 09/05/16 02:49 18 80/57 93 09/05/16 02:00 82 16 74/51 97 09/05/16 01:00 83 16 71/50 97 09/05/16 00:45 83 09/05/16 00:04 16 84/61 100 09/05/16 00:00 84 16 84/61 100 09/04/16 23:59 98.3 F 09/04/16 23:00 83 16 82/57 99 09/04/16 22:14 16 78/53 99 09/04/16 22:00 91 16 86/55 99 09/04/16 21:15 89 09/04/16 21:00 94 16 133/72 100 09/04/16 20:35 99 F 09/04/16 20:00 98.3 F 94 17 113/69 100 09/04/16 19:50 94/56 09/04/16 19:45 101/64 09/04/16 19:44 17 101/61 100 09/04/16 19:30 128/70 09/04/16 19:15 123/69 09/04/16 19:00 93 16 117/65 100 09/04/16 18:45 109/66 09/04/16 18:30 111/64 09/04/16 18:15 98/60 09/04/16 18:00 95 18 93/59 99 09/04/16 17:45 120/68 09/04/16 17:30 107/62 09/04/16 17:16 18 119/67 99 09/04/16 17:15 111/64 09/04/16 17:11 98.4 F 97 16 104/73 99 09/04/16 17:00 98 16 104/65 98 09/04/16 16:45 96/71 09/04/16 16:30 111/73 09/04/16 16:15 104/74 09/04/16 16:00 98.4 F 97 16 98/67 99 09/04/16 15:51 89 16 85/60 99 09/04/16 15:45 89/60 09/04/16 15:39 16 85/60 99 09/04/16 15:30 91/60 09/04/16 15:15 98.3 F 18 91/56 09/04/16 15:00 95 16 97/70 99 09/04/16 14:00 89 15 80/56 99 09/04/16 13:53 16 79/55 99 09/04/16 13:00 88 16 75/55 99 09/04/16 12:00 88 15 76/55 99 09/04/16 11:11 85 16 82/55 97 09/04/16 11:00 98.5 F 85 16 77/57 98 09/04/16 10:00 85 15 78/56 99 09/04/16 09:43 16 82/55 99 09/04/16 09:30 100 09/04/16 09:00 85 16 82/58 100 Intake and Output 09/04/16 09/05/16 09/05/16 23:59 07:59 15:59 Intake Total 439 / 439 546 / 546 45 / 45 Output Total 2600 / 2600 Balance -2161 / -2161 546 / 546 45 / 45 Intake: IV Fluids 379 / 379 367 / 367 45 / 45 PRECEDEX 400 mcg In 100 200 / 200 255 / 255 45 / 45 ml @ 0.2 MCG/KG/HR 6.15 mls/hr IVC .[id number] [facility] Rx#:[id number] FentaNYL (PF) 1,000 MCG 100 / 100 85 / 85 In 0.9 % Sodium Chloride 80 ML @ 50 MCG/HR 5 mls/ hr IVC CONT [facility] Rx#: [id number] Levophed 4 MG In Dextrose 79 / 79 27 / 27 5% 250 ML @ 8 MCG/MIN 30 mls/hr IVC [facility] Rx#: [id number] Oral 0 / 0 Tube Feeding 179 / 179 Free Water Intake Amount 0 / 0 Output: Urine 0 / 0 Total Dialysis Output 2600 / 2600 Other: Weight 125.191 kg Blood Glucose* 80 Hemodialysis Net Fluid 2000 Removed (mL) - General Appearance General appearance: Present: well-developed, well-nourished, appears started age , obese EENT: Present: mucous membranes moist Neck: Present: no JVD Additional Comments: harsh breath sounds Cardiology: Present: edema, regular rate, regular rhythm Additional Comments: taut LE edema Gastrointestinal: Present: hypoactive bowel sounds, obese, distended Integumentary: Present: warm and dry Additional Comments: sedated - Lab 09/05/16 04:16 09/05/16 04:16 Most recent lab results ABG pH 7.30 pH Units (7.32-7.45) L D 09/04/16 06:13 ABG pCO2 52 mmHg (35-45) H D 09/04/16 06:13 ABG pO2 81 mmHg (85-104) L 09/04/16 06:13 ABG HCO3 25.6 mEQ/L (21-27) 09/04/16 06:13 ABG O2 Saturation 95 % (95-98) 09/04/16 06:13 Calcium 8.7 mg/dL (8.6-10.8) 09/05/16 04:16 Phosphorus 7.8 mg/dL (2.3-4.7) H 09/03/16 06:29 Magnesium 2.0 mg/dL (1.6-2.6) 09/03/16 06:29 Consult Discharge Plan - Plan Referrals: Arthur Pozo MD [Primary Care Provider] -
--- NOTE | 2016-09-05 09:14 | Pulmonology Progress Note ---
Date of Encounter: 09/05/16 Time of Encounter: 07:05 Assessment and Plan (1) Acute on chronic respiratory failure with hypoxia and hypercapnia Current Visit: Yes Status: Acute Acute chronic respiratory failure with hypoxia hypercapnia secondary to obesity hypoventilation syndrome, sleep apnea and COPD. Patient has evidence of cor pulmonale as well. Furthermore, the patient has progressive deterioration of left ventricular systolic function and currently has acute systolic congestive heart failure. Given end-stage renal disease, the patient will require additional dialytic support with volume removal off prior to extubation. If and when the patient was successfully extubated, he will require medical therapy to assist with left ventricular systolic dysfunction. Given underlying COPD, bronchodilator therapy will be [place] as provided prior to his admission to the hospital. Code(s): J96.21 - Acute and chronic respiratory failure with hypoxia; J96.22 - Acute and chronic respiratory failure with hypercapnia SNOMED Code(s): 51464373, 505302977 Subjective Principal diagnosis: acute on chronic respiratory failure with hypoxia and hypercapnea Interval history: Patient continues on low level ventilatory support. Patient is awake interactive requires low-dose sedation in order to enhance comfort while receiving ventilatory support. No acute new events were noted overnight Objective PUL Vital signs: Last Vital Signs Temp 98.5 F 09/05/16 04:35 Pulse 75 09/05/16 08:00 Resp 16 09/05/16 08:42 BP 91/70 09/05/16 08:42 Pulse Ox 94 09/05/16 08:42 General appearance: no acute distress, other (Morbidly obese male orally intubated) Eyes: nonicteric Neck: JVD Auscultation: bilateral: diminished breath sounds Cardiovascular: regular rate and rhythm, other (Gallop, loud P2, systolic murmur ) Gastrointestinal: normoactive bowel sounds, non-tender, non-distended, other ( Central obesity) Integumentary: normal, other (Tattoos) Extremities: other (Chronic lower extremity edema with venous stasis changes) normal mental status, non-focal exam Ventilator Settings Ventilator Settings: Ventilator Settings, Last 8 Hours Ventilator Mode A/C Ventilator Mode A/C Ventilator Mode A/C Ventilator Mode A/C Ventilator Mode A/C Ventilator Mode A/C Ventilator Mode A/C Ventilator Mode A/C Ventilator Mode A/C Ventilator Mode A/C Ventilator Tidal Volume 550 Setting Ventilator Tidal Volume 550 Setting Ventilator Tidal Volume 550 Setting Ventilator Tidal Volume 550 Setting Ventilator Tidal Volume 550 Setting Ventilator Tidal Volume 550 Setting Ventilator Tidal Volume 550 Setting Ventilator Tidal Volume 550 Setting Ventilator Tidal Volume 550 Setting Ventilator Tidal Volume 550 Setting Ventilator Respiratory Rate 16 Setting Ventilator Respiratory Rate 16 Setting Ventilator Respiratory Rate 16 Setting Ventilator Respiratory Rate 16 Setting Ventilator Respiratory Rate 16 Setting Ventilator Respiratory Rate 16 Setting Ventilator Respiratory Rate 16 Setting Ventilator Respiratory Rate 16 Setting Ventilator Respiratory Rate 16 Setting Ventilator Respiratory Rate 16 Setting Actual Respiratory Rate 17 Actual Respiratory Rate 17 Actual Respiratory Rate 17 Actual Respiratory Rate 16 Actual Respiratory Rate 17 Positive End Expiratory 5 Pressure Positive End Expiratory 5 Pressure Positive End Expiratory 5 Pressure Positive End Expiratory 5 Pressure Positive End Expiratory 5 Pressure Positive End Expiratory 5 Pressure Positive End Expiratory 5 Pressure Positive End Expiratory 5 Pressure Positive End Expiratory 5 Pressure Positive End Expiratory 5 Pressure Peak Inspiratory Airway 34 Pressure Peak Inspiratory Airway 28 Pressure Peak Inspiratory Airway 28 Pressure Peak Inspiratory Airway 40 Pressure Peak Inspiratory Airway 35 Pressure Results - Laboratory Findings CBC and BMP: 09/05/16 04:16 09/05/16 04:16 ABG ABG pH 7.30 pH Units (7.32-7.45) L D 09/04/16 06:13 ABG pCO2 52 mmHg (35-45) H D 09/04/16 06:13 ABG pO2 81 mmHg (85-104) L 09/04/16 06:13 ABG O2 Saturation 95 % (95-98) 09/04/16 06:13 PT/INR, D-dimer PT 13.7 Seconds (9.4-12.1) H 09/04/16 03:10 Abnormal lab findings: Abnormal lab results RBC 5.68 M/mcL (4.19-5.50) H 09/05/16 04:16 MCH 26.6 pg (28.0-33.3) L 09/05/16 04:16 MCHC 30.8 g/dL (31.6-35.5) L 09/05/16 04:16 RDW 17.7 % (11.5-14.5) H 09/05/16 04:16 Plt Count 90 K/mcL (140-400) L 09/05/16 04:16 Nucleated RBCs/100 WBC 0.4 /100 WBC (0) H 09/03/16 06:29 Platelet Estimate Decreased (Normal) L 09/03/16 06:29 Immature Plt Fraction 9.3 % (1.1-6.1) H 09/05/16 04:16 PT 13.7 Seconds (9.4-12.1) H 09/04/16 03:10 ABG pH 7.30 pH Units (7.32-7.45) L D 09/04/16 06:13 ABG pCO2 52 mmHg (35-45) H D 09/04/16 06:13 ABG pO2 81 mmHg (85-104) L 09/04/16 06:13 ABG Total CO2 27.2 mEq/L (20-26) H 09/04/16 06:13 Potassium 5.0 mEq/L (3.5-4.5) H 09/05/16 04:16 BUN 37 mg/dL (8-26) H D 09/05/16 04:16 Creatinine 7.84 mg/dL (0.72-1.25) H 09/05/16 04:16 Est GFR ( Amer) 9 (> 60) L 09/05/16 04:16 Est GFR (Non-Af Amer) 7 (> 60) L 09/05/16 04:16 BUN/Creatinine Ratio 5 (6-26) L 09/05/16 04:16 Glucose 142 mg/dL (70-99) H 09/05/16 04:16 POC Glucose 152 (58-89) H 09/05/16 05:46 Phosphorus 7.8 mg/dL (2.3-4.7) H 09/03/16 06:29 Alkaline Phosphatase 429 Units/L (38-126) H 09/04/16 03:10 Troponin I 0.13 ng/mL (0-0.03) H* 09/03/16 21:00 B-Natriuretic Peptide 1949 pg/mL (0-100) H 09/04/16 03:10 Albumin 2.9 g/dL (3.5-5.0) L 09/04/16 03:10 Globulin 3.7 g/dL (2.4-3.5) H 09/04/16 03:10 Albumin/Globulin Ratio 0.8 (1.1-2.2) L 09/04/16 03:10 Triglycerides 184 mg/dL (< 150) H 09/03/16 06:29 VLDL Cholesterol, Calc 37 mg/dL (< 31) H 09/03/16 06:29 HDL Cholesterol 29 mg/dL (40-59) L 09/03/16 06:29 Urine Clarity Cloudy (Clear) A 09/04/16 04:59 Urine Protein >=1000 mg/dL (Neg-Trace) H 09/04/16 04:59 Urine Glucose (UA) 250 mg/dL (Normal) H 09/04/16 04:59 Urine Ketones Trace mg/dL (Negative) H 09/04/16 04:59 Urine Blood Large (Negative) H 09/04/16 04:59 Urine Bilirubin Small (Negative) H 09/04/16 04:59 Ur Leukocyte Esterase Small (Negative) H 09/04/16 04:59 Urine Microscopic RBC TNTC per hpf (0-3) H 09/04/16 04:59 Urine Microscopic WBC 30-50 per hpf (0-3) H 09/04/16 04:59 Ur Squamous Epith Cells Many per lpf (None-Few) H 09/04/16 04:59 Urine Bacteria Many per hpf (None-Few) H 09/04/16 04:59 Ur Culture Indicated? YES (NO) A 09/03/16 21:00 - Microbiology Findings Microbiology Findings: Microbiology, Last 48 Hours 09/03/16 21:00 Urine Culture - Final Urine,Clean Catch No growth. 09/04/16 04:59 Legionella Antigen - Final Urine,Clean Catch Streptococcus pneumoniae Antigen (M - Final - Clinical Findings Intake & Output: Intake & Output 09/04/16 09/05/16 09/05/16 23:59 07:59 15:59 Intake Total 439 / 439 546 / 546 45 / 45 Output Total 2600 / 2600 Balance -2161 / -2161 546 / 546 45 / 45 Weight 125.191 kg Consult Discharge Plan - Plan Referrals: Arthur Pozo MD [Primary Care Provider] -
[2016-09-05] MEDS: FentaNYL (PF) 1,000 MCG in 0.9 % Sodium Chloride 80 ML IVC SCH ×2 (10:55→23:23)
[2016-09-05] MEDS: Insulin DETEMIR 100 UNIT/ML X5UNITS SQ SCH ×2 (11:06→19:42)
[2016-09-05] MEDS: Ammonium Lactate 30 APPL/225 GM BOTTLE TP SCH ×2 (11:07→21:34)
[2016-09-06] MEDS: Dexmedetomidine HCl 400 MCG/100 ML MLS IVC SCH ×8 (01:33→21:57)
[2016-09-06 03:27] LABS: Hematocrit 45.7 % (37.5-50.1)
[2016-09-06 03:29] LABS: Hemoglobin 14.7 g/dL (12.9-16.9); Immature Platelets 9.4 % (1.1-6.1); Mean Corpuscular HGB Conc 32.2 g/dL (31.6-35.5); Mean Corpuscular Hemoglobin 27.4 pg (28.0-33.3); Mean Corpuscular Volume 85.3 fL (83.0-100.0); Mean Platelet Volume 11.2 fL (9.4-12.4); Red Blood Count 5.36 M/mcL (4.19-5.50); Red Cell Distribution Width 17.2 % (11.5-14.5)
[2016-09-06 03:45] LABS: Potassium 3.9 mEq/L (3.5-4.5)
[2016-09-06 03:48] LABS: Calcium 5.7 mg/dL (8.6-10.8)
[2016-09-06] MEDS: Ipratropium/Albuterol Neb 3 ML IH SCH ×4 (04:43→23:33)
[2016-09-06] MEDS: Insulin LISPRO 300 UNITS/3 ML VIAL SQ SCH ×4 (05:43→18:33)
[2016-09-06] MEDS: Lacri-Lube 3.5 GM TUBE BOTH EYES SCH ×6 (05:44→19:17)
[2016-09-06] MEDS: *HR* Heparin 5,000 UNIT/ML VIAL SQ SCH ×3 (05:48→19:18)
[2016-09-06] MEDS ORDERED: Calcium Gluconate 2,000 MG in D5% in Water 100 ML IVPB ONE (06:50)
--- NOTE | 2016-09-06 08:17 | Nephrology Progress Note ---
Date of Encounter: 09/06/16 Time of Encounter: 08:05 - Assessment and Plan (1) End stage renal disease on dialysis Current Visit: Yes Status: Chronic Acute on chronic respiratory failure. Intubated, sedated, currently not on pressors. Ca 5.7. will stop Sensipar and get ionized calcium. ESRD. No HD today , will continue to follow Subjective Principal diagnosis: acute on chronic respiratory failure with hypoxia and hypercapnea Interval history: Intubated, sedated, no pressors. Nursing staff states lightly sedated, being cooperative. Objective - Vital Signs Vital signs: Vital Signs Temp Pulse Resp BP Pulse Ox 09/06/16 08:11 16 81/51 92 09/06/16 07:55 72 16 81/51 92 09/06/16 07:40 97.9 F 09/06/16 06:21 16 81/62 92 09/06/16 06:00 71 16 90/58 91 09/06/16 05:00 16 81/60 93 09/06/16 04:43 16 81/60 93 09/06/16 04:00 69 16 76/64 93 09/06/16 03:07 96.2 F L 09/06/16 03:00 69 16 96/62 94 09/06/16 02:49 16 93/63 92 09/06/16 02:00 70 16 95/62 92 09/06/16 01:00 70 16 97/68 93 09/06/16 00:10 96.2 F L 09/06/16 00:04 16 109/72 94 09/05/16 23:00 69 16 95/71 95 09/05/16 22:33 16 95/71 95 09/05/16 22:00 68 16 107/71 95 09/05/16 21:00 68 16 100/69 97 09/05/16 20:00 68 16 107/70 97 09/05/16 19:49 19 91/69 91 09/05/16 19:40 96.9 F L 09/05/16 19:00 68 16 98/74 95 09/05/16 18:32 16 92/70 96 09/05/16 18:00 71 16 88/66 95 09/05/16 17:15 16 91/69 95 09/05/16 17:00 73 16 96/73 95 09/05/16 16:04 16 91/69 95 09/05/16 16:00 71 16 89/70 94 09/05/16 15:27 72 16 91/69 95 09/05/16 15:00 71 16 86/66 95 09/05/16 14:00 72 16 91/69 95 09/05/16 13:00 72 16 85/66 95 09/05/16 12:00 71 15 88/67 95 09/05/16 11:40 97.8 F 09/05/16 11:35 16 86/68 96 09/05/16 11:24 72 16 86/68 95 09/05/16 11:00 79 15 88/69 95 09/05/16 10:00 72 16 86/68 95 09/05/16 09:00 73 15 91/69 94 09/05/16 08:42 16 91/70 94 Intake and Output 09/05/16 09/06/16 09/06/16 23:59 07:59 15:59 Intake Total 784 / 784 526 / 526 Output Total 0 / 0 Balance 784 / 784 526 / 526 Intake: IV Fluids 500 / 500 300 / 300 PRECEDEX 400 mcg In 100 400 / 400 300 / 300 ml @ 0.2 MCG/KG/HR 6.15 mls/hr IVC .[id number] [facility] Rx#:[id number] FentaNYL (PF) 1,000 MCG 100 / 100 In 0.9 % Sodium Chloride 80 ML @ 50 MCG/HR 5 mls/ hr IVC CONT [facility] Rx#: [id number] Oral 0 / 0 Tube Feeding 284 / 284 226 / 226 Free Water Intake Amount 0 / 0 0 / 0 Output: Urine 0 / 0 Other: Weight 130.7 kg Blood Glucose* 205 174 Patient Weight 09/06/16 23:59 Weight 130.7 kg - General Appearance General appearance: Present: well-developed, well-nourished, appears started age , obese EENT: Present: mucous membranes moist Neck: Present: no JVD Respiratory: Present: rhonchi Cardiology: Present: regular rate, regular rhythm Additional Comments: taut, mild pitting Gastrointestinal: Present: hypoactive bowel sounds Integumentary: Present: warm and dry - Lab 09/06/16 03:20 09/06/16 03:20 Most recent lab results ABG pH 7.30 pH Units (7.32-7.45) L D 09/04/16 06:13 ABG pCO2 52 mmHg (35-45) H D 09/04/16 06:13 ABG pO2 81 mmHg (85-104) L 09/04/16 06:13 ABG HCO3 25.6 mEQ/L (21-27) 09/04/16 06:13 ABG O2 Saturation 95 % (95-98) 09/04/16 06:13 Calcium 5.7 mg/dL (8.6-10.8) L* D 09/06/16 03:20 Phosphorus 7.8 mg/dL (2.3-4.7) H 09/03/16 06:29 Magnesium 2.0 mg/dL (1.6-2.6) 09/03/16 06:29 Consult Discharge Plan - Plan Referrals: Arthur Pozo MD [Primary Care Provider] -
[2016-09-06] MEDS: FentaNYL (PF) 1,000 MCG in 0.9 % Sodium Chloride 80 ML IVC SCH ×3 (08:41→19:40)
[2016-09-06] MEDS: Norepinephrine 4 MG in D5% in Water 250 ML IVC SCH ×2 (09:44→12:06)
[2016-09-06] MEDS: Nicotine 21 MG PATCH.TD24 TD SCH (10:00)
[2016-09-06] MEDS: Pantoprazole 40 MG VIAL IVP SCH (10:00)
[2016-09-06] MEDS: Renal Vitamin 1 MG CAPSULE PO SCH (10:01)
[2016-09-06] MEDS: Chlorhexidine Rinse 15 ML MOUTHWASH MM SCH ×2 (10:02→19:17)
[2016-09-06] MEDS: Ammonium Lactate 30 APPL/225 GM BOTTLE TP SCH ×2 (10:02→19:20)
[2016-09-06] MEDS: Insulin DETEMIR 100 UNIT/ML X5UNITS SQ SCH ×2 (10:04→19:18)
--- NOTE | 2016-09-06 11:11 | Pulmonology Progress Note ---
Date of Encounter: 09/06/16 Time of Encounter: 07:55 Assessment and Plan (1) Acute on chronic respiratory failure with hypoxia and hypercapnia Current Visit: Yes Status: Acute Acute chronic respiratory failure with hypoxia hypercapnia secondary to obesity hypoventilation syndrome, sleep apnea and COPD. The Patient has evidence of cor pulmonale as well. Furthermore, the patient has progressive deterioration of left ventricular systolic function and currently acute systolic congestive heart failure. Given end-stage renal disease, the patient will require additional dialytic support with volume removal prior to extubation (possible extubation following hemodialysis and ultrafiltration on Wednesday). If and when the patient is successfully extubated, he will require medical therapy to assist with left ventricular systolic dysfunction. Given underlying COPD, bronchodilator therapy to be continued. This patient also has sleep apnea but has been noncompliant with use of nocturnal PAP per review of documentation. Code(s): J96.21 - Acute and chronic respiratory failure with hypoxia; J96.22 - Acute and chronic respiratory failure with hypercapnia SNOMED Code(s): 94094433, [id number] Subjective Principal diagnosis: acute on chronic respiratory failure with hypoxia and hypercapnea Interval history: Patient continues on low level ventilatory support. Patient is awake interactive requires low-dose sedation in order to enhance comfort while receiving ventilatory support. No acute new events were noted overnight Objective PUL Vital signs: Last Vital Signs Temp 97.9 F 09/06/16 07:40 Pulse 72 09/06/16 10:00 Resp 16 09/06/16 10:00 BP 74/49 09/06/16 10:00 Pulse Ox 92 09/06/16 10:00 General appearance: no acute distress, other (Orally intubated mildly sedated interactive with caregivers) Eyes: nonicteric Neck: JVD Auscultation: bilateral: diminished breath sounds (Bilateral crackles minimal rhonchi) Cardiovascular: regular rate and rhythm (Note gallop as well as loud P2 component.) Gastrointestinal: normoactive bowel sounds, non-distended, other (Central obesity) Integumentary: other (Tattoos, chronic venous stasis changes lower extremities.) Extremities: edema (Chronic edema lower extremities mild edema of the thigh and presacral region.) normal mental status, non-focal exam, other (Limited neurologic exam due to sedation) Ventilator Settings Ventilator Settings: Ventilator Settings, Last 8 Hours Ventilator Mode A/C Ventilator Mode A/C Ventilator Mode A/C Ventilator Mode A/C Ventilator Mode A/C Ventilator Mode A/C Ventilator Mode A/C Ventilator Mode A/C Ventilator Mode A/C Ventilator Tidal Volume 550 Setting Ventilator Tidal Volume 550 Setting Ventilator Tidal Volume 550 Setting Ventilator Tidal Volume 550 Setting Ventilator Tidal Volume 550 Setting Ventilator Tidal Volume 550 Setting Ventilator Tidal Volume 550 Setting Ventilator Tidal Volume 550 Setting Ventilator Tidal Volume 550 Setting Ventilator Respiratory Rate 16 Setting Ventilator Respiratory Rate 16 Setting Ventilator Respiratory Rate 16 Setting Ventilator Respiratory Rate 16 Setting Ventilator Respiratory Rate 16 Setting Ventilator Respiratory Rate 16 Setting Ventilator Respiratory Rate 16 Setting Ventilator Respiratory Rate 16 Setting Ventilator Respiratory Rate 16 Setting Actual Respiratory Rate 16 Actual Respiratory Rate 16 Actual Respiratory Rate 16 Actual Respiratory Rate 16 Actual Respiratory Rate 16 Actual Respiratory Rate 16 Actual Respiratory Rate 16 Actual Respiratory Rate 16 Actual Respiratory Rate 16 Positive End Expiratory 5 Pressure Positive End Expiratory 5 Pressure Positive End Expiratory 5 Pressure Positive End Expiratory 5 Pressure Positive End Expiratory 5 Pressure Positive End Expiratory 5 Pressure Positive End Expiratory 5 Pressure Positive End Expiratory 5 Pressure Positive End Expiratory 5 Pressure Peak Inspiratory Airway 38 Pressure Peak Inspiratory Airway 37 Pressure Peak Inspiratory Airway 33 Pressure Peak Inspiratory Airway 37 Pressure Peak Inspiratory Airway 33 Pressure Peak Inspiratory Airway 33 Pressure Peak Inspiratory Airway 33 Pressure Peak Inspiratory Airway 35 Pressure Peak Inspiratory Airway 36 Pressure Results - Laboratory Findings CBC and BMP: 09/06/16 03:20 09/06/16 03:20 ABG ABG pH 7.30 pH Units (7.32-7.45) L D 09/04/16 06:13 ABG pCO2 52 mmHg (35-45) H D 09/04/16 06:13 ABG pO2 81 mmHg (85-104) L 09/04/16 06:13 ABG O2 Saturation 95 % (95-98) 09/04/16 06:13 PT/INR, D-dimer PT 13.7 Seconds (9.4-12.1) H 09/04/16 03:10 Abnormal lab findings: Abnormal lab results MCH 27.4 pg (28.0-33.3) L 09/06/16 03:20 RDW 17.2 % (11.5-14.5) H 09/06/16 03:20 Plt Count 77 K/mcL (140-400) L 09/06/16 03:20 Nucleated RBCs/100 WBC 0.4 /100 WBC (0) H 09/03/16 06:29 Platelet Estimate Decreased (Normal) L 09/03/16 06:29 Immature Plt Fraction 9.4 % (1.1-6.1) H 09/06/16 03:20 PT 13.7 Seconds (9.4-12.1) H 09/04/16 03:10 ABG pH 7.30 pH Units (7.32-7.45) L D 09/04/16 06:13 ABG pCO2 52 mmHg (35-45) H D 09/04/16 06:13 ABG pO2 81 mmHg (85-104) L 09/04/16 06:13 ABG Total CO2 27.2 mEq/L (20-26) H 09/04/16 06:13 Chloride 113 mEq/L (98-109) H 09/06/16 03:20 Carbon Dioxide 18 mEq/L (19-29) L 09/06/16 03:20 BUN 48 mg/dL (8-26) H D 09/06/16 03:20 Creatinine 6.97 mg/dL (0.72-1.25) H 09/06/16 03:20 Est GFR ( Amer) 10 (> 60) L 09/06/16 03:20 Est GFR (Non-Af Amer) 9 (> 60) L 09/06/16 03:20 Glucose 175 mg/dL (70-99) H 09/06/16 03:20 POC Glucose 173 (58-89) H 09/06/16 10:50 Calculated Osmolality 311 (280-300) H 09/06/16 03:20 Calcium 5.7 mg/dL (8.6-10.8) L* D 09/06/16 03:20 Phosphorus 7.8 mg/dL (2.3-4.7) H 09/03/16 06:29 Alkaline Phosphatase 429 Units/L (38-126) H 09/04/16 03:10 Troponin I 0.13 ng/mL (0-0.03) H* 09/03/16 21:00 B-Natriuretic Peptide 1949 pg/mL (0-100) H 09/04/16 03:10 Albumin 2.9 g/dL (3.5-5.0) L 09/04/16 03:10 Globulin 3.7 g/dL (2.4-3.5) H 09/04/16 03:10 Albumin/Globulin Ratio 0.8 (1.1-2.2) L 09/04/16 03:10 Triglycerides 184 mg/dL (< 150) H 09/03/16 06:29 VLDL Cholesterol, Calc 37 mg/dL (< 31) H 09/03/16 06:29 HDL Cholesterol 29 mg/dL (40-59) L 09/03/16 06:29 Urine Clarity Cloudy (Clear) A 09/04/16 04:59 Urine Protein >=1000 mg/dL (Neg-Trace) H 09/04/16 04:59 Urine Glucose (UA) 250 mg/dL (Normal) H 09/04/16 04:59 Urine Ketones Trace mg/dL (Negative) H 09/04/16 04:59 Urine Blood Large (Negative) H 09/04/16 04:59 Urine Bilirubin Small (Negative) H 09/04/16 04:59 Ur Leukocyte Esterase Small (Negative) H 09/04/16 04:59 Urine Microscopic RBC TNTC per hpf (0-3) H 09/04/16 04:59 Urine Microscopic WBC 30-50 per hpf (0-3) H 09/04/16 04:59 Ur Squamous Epith Cells Many per lpf (None-Few) H 09/04/16 04:59 Urine Bacteria Many per hpf (None-Few) H 09/04/16 04:59 Ur Culture Indicated? YES (NO) A 09/03/16 21:00 - Microbiology Findings Microbiology Findings: Microbiology, Last 48 Hours 09/03/16 21:00 Urine Culture - Final Urine,Clean Catch No growth. 09/04/16 04:59 Legionella Antigen - Final Urine,Clean Catch Streptococcus pneumoniae Antigen (M - Final - Clinical Findings Intake & Output: Intake & Output 09/05/16 09/06/16 09/06/16 23:59 07:59 15:59 Intake Total 784 / 784 526 / 526 200 / 200 Output Total 0 / 0 Balance 784 / 784 526 / 526 200 / 200 Weight 130.7 kg Consult Discharge Plan - Plan Referrals: Arthur Pozo MD [Primary Care Provider] -
[2016-09-07] MEDS: Dexmedetomidine HCl 400 MCG/100 ML MLS IVC SCH ×10 (00:48→23:46)
[2016-09-07] MEDS: Lacri-Lube 3.5 GM TUBE BOTH EYES SCH ×7 (00:50→23:35)
[2016-09-07] MEDS: Insulin LISPRO 300 UNITS/3 ML VIAL SQ SCH ×5 (00:50→23:34)
[2016-09-07] MEDS: FentaNYL (PF) 1,000 MCG in 0.9 % Sodium Chloride 80 ML IVC SCH ×5 (01:13→19:51)
[2016-09-07] MEDS: Ipratropium/Albuterol Neb 3 ML IH SCH ×4 (05:16→23:50)
[2016-09-07 05:43] LABS: Hematocrit 43.5 % (37.5-50.1); Immature Platelets 8.8 % (1.1-6.1); Mean Corpuscular Hemoglobin 27.1 pg (28.0-33.3); Mean Platelet Volume 12.1 fL (9.4-12.4); Red Blood Count 5.12 M/mcL (4.19-5.50); Red Cell Distribution Width 16.7 % (11.5-14.5)
[2016-09-07 05:44] LABS: Hemoglobin 13.9 g/dL (12.9-16.9)
[2016-09-07] MEDS: *HR* Heparin 5,000 UNIT/ML VIAL SQ SCH ×3 (06:06→21:02)
[2016-09-07 06:46] LABS: Potassium 5.2 mEq/L (3.5-4.5)
[2016-09-07 07:39] LABS: ABG Base Excess -1.9 mEq/L (-2.0 to 3.0); ABG HCO3 26.2 mEQ/L (21-27); ABG Oxygen Saturation 87 % (95-98); ABG PCO2 57 mmHg (35-45); ABG PH 7.27 pH Units (7.32-7.45); ABG PO2 60 mmHg (85-104); ABG TCO2 27.9 mEq/L (20-26)
[2016-09-07 07:42] LABS: Blood Gas FiO2 30 %
[2016-09-07] MEDS: Nicotine 21 MG PATCH.TD24 TD SCH (08:28)
[2016-09-07] MEDS: Pantoprazole 40 MG VIAL IVP SCH (08:28)
[2016-09-07] MEDS: Ammonium Lactate 30 APPL/225 GM BOTTLE TP SCH ×2 (08:29→20:52)
[2016-09-07] MEDS ORDERED: 0.9 % Sodium Chloride 250 ML IVC PRN (08:40)
--- NOTE | 2016-09-07 08:40 | Nephrology Progress Note ---
Date of Encounter: 09/07/16 Time of Encounter: 08:39 - Assessment and Plan (1) End stage renal disease on dialysis Current Visit: Yes Status: Chronic The patient will undergo dialysis today with cool dialysate to prevent worsening hypotension. Fluid removal be as tolerated. (2) Fluid overload Current Visit: Yes Status: Acute Qualifiers: Hypervolemia type: unspecified Qualified Code(s): E87.70 - Fluid overload, unspecified (3) Nonischemic cardiomyopathy Current Visit: No Status: Chronic (4) Respiratory acidosis Current Visit: No Status: Acute (5) ZAINAB (obstructive sleep apnea) Current Visit: Yes Status: Chronic Subjective Principal diagnosis: acute on chronic respiratory failure with hypoxia and hypercapnea Interval history: Patient is on the ventilator. She remains on low-dose levo fed for blood pressure support. He is on some sedation but he is trying to communicate. He is scheduled for dialysis today. Objective - Vital Signs Vital signs: Vital Signs Temp Pulse Resp BP Pulse Ox 09/07/16 07:53 98.2 F 09/07/16 06:00 86 16 83/69 93 09/07/16 05:16 16 84/63 93 09/07/16 05:00 99.3 F 84 16 81/60 93 09/07/16 04:16 99.3 F 09/07/16 03:40 16 84/61 92 09/07/16 03:00 86 16 90/62 92 09/07/16 02:00 86 16 82/61 92 09/07/16 01:17 16 91/64 92 09/07/16 01:00 99.7 F H 89 16 81/56 92 09/07/16 00:07 99.7 F H 09/06/16 23:33 16 91/60 92 09/06/16 23:00 83 16 85/61 92 09/06/16 22:00 84 16 100/69 92 09/06/16 21:32 16 98/62 93 09/06/16 21:00 84 16 102/63 92 09/06/16 20:00 83 16 82/52 95 09/06/16 19:56 16 81/61 94 09/06/16 19:52 99.3 F 09/06/16 19:00 99.3 F 83 16 79/58 95 09/06/16 18:51 16 94/68 96 09/06/16 18:23 80 17 92/66 96 09/06/16 17:23 80 16 96/70 95 09/06/16 17:04 16 100/68 95 09/06/16 16:30 80 16 102/74 95 09/06/16 15:20 78 16 103/71 95 09/06/16 14:15 79 16 109/69 94 09/06/16 13:20 81 16 104/69 95 09/06/16 12:17 80 16 111/53 09/06/16 11:27 72 16 70/48 94 09/06/16 11:00 71 16 74/50 94 09/06/16 10:00 72 16 74/49 92 09/06/16 09:00 72 16 80/53 95 Intake and Output 09/06/16 09/07/16 09/07/16 23:59 07:59 15:59 Intake Total 1557 / 1557 588 / 588 82 / 82 Balance 1557 / 1557 588 / 588 82 / 82 Intake: IV Fluids 400 / 400 500 / 500 82 / 82 PRECEDEX 400 mcg In 100 300 / 300 300 / 300 ml @ 0.2 MCG/KG/HR 6.15 mls/hr IVC .[id number] [facility] Rx#:[id number] FentaNYL (PF) 1,000 MCG 100 / 100 200 / 200 82 / 82 In 0.9 % Sodium Chloride 80 ML @ 50 MCG/HR 5 mls/ hr IVC CONT [facility] Rx#: [id number] Oral 0 / 0 Tube Feeding 1157 / 1157 88 / 88 Other: Weight 129.092 kg Blood Glucose* 148 136 Patient Weight 09/07/16 23:59 Weight 129.092 kg - General Appearance Exam: Patient is on the ventilator. He is attempting to communicate. Lungs mange breath sounds. Heart regular rate and rhythm. Abdomen is obese. Bowel sounds are present. There is no guarding tenderness nor rigidity. There is chronic edema of the lower extremities. There is a functioning AV fistula in the left arm. - Lab 09/07/16 05:30 09/07/16 05:30 Most recent lab results ABG pH 7.27 pH Units (7.32-7.45) L 09/07/16 07:25 ABG pCO2 57 mmHg (35-45) H 09/07/16 07:25 ABG pO2 60 mmHg (85-104) L 09/07/16 07:25 ABG HCO3 26.2 mEQ/L (21-27) 09/07/16 07:25 ABG O2 Saturation 87 % (95-98) L 09/07/16 07:25 Calcium 8.0 mg/dL (8.6-10.8) L D 09/07/16 05:30 Phosphorus 7.8 mg/dL (2.3-4.7) H 09/03/16 06:29 Magnesium 2.0 mg/dL (1.6-2.6) 09/03/16 06:29 Consult Discharge Plan - Plan Referrals: Arthur Pozo MD [Primary Care Provider] -
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
[2016-09-07] MEDS: Chlorhexidine Rinse 15 ML MOUTHWASH MM SCH ×2 (09:37→20:53)
[2016-09-07] MEDS ORDERED: *HR* Midazolam HCl 2 MG/2 ML VIAL IVP PRN (11:07)
[2016-09-07] MEDS: Renal Vitamin 1 MG CAPSULE PO SCH (12:35)
[2016-09-07] MEDS: Insulin DETEMIR 100 UNIT/ML X5UNITS SQ SCH ×2 (12:37→20:58)
[2016-09-07] MEDS: Norepinephrine 4 MG in D5% in Water 250 ML IVC SCH (16:24)
[2016-09-07] MEDS ORDERED: 0.9 % Sodium Chloride 2,000 ML ONE (16:53)
[2016-09-08] MEDS: FentaNYL (PF) 1,000 MCG in 0.9 % Sodium Chloride 80 ML IVC SCH ×2 (00:56→19:58)
[2016-09-08] MEDS: Dexmedetomidine HCl 400 MCG/100 ML MLS IVC SCH ×4 (01:48→13:30)
[2016-09-08] MEDS: Lacri-Lube 3.5 GM TUBE BOTH EYES SCH ×5 (03:45→20:00)
[2016-09-08 03:57] LABS: Hematocrit 42.3 % (37.5-50.1); Hemoglobin 13.2 g/dL (12.9-16.9); Immature Platelets 10.4 % (1.1-6.1); Mean Corpuscular HGB Conc 31.2 g/dL (31.6-35.5); Mean Corpuscular Hemoglobin 26.8 pg (28.0-33.3); Mean Platelet Volume 11.3 fL (9.4-12.4); Red Blood Count 4.92 M/mcL (4.19-5.50); Red Cell Distribution Width 16.6 % (11.5-14.5)
[2016-09-08 04:06] LABS: INR 1.5; Prothrombin Time 15.9 Seconds (9.4-12.1)
[2016-09-08 04:08] LABS: Ionized Calcium 1.09 mmol/L (1.15-1.35)
[2016-09-08 04:15] LABS: Phosphorous 8.8 mg/dL (2.3-4.7)
[2016-09-08 04:16] LABS: Calcium 8.6 mg/dL (8.6-10.8)
[2016-09-08 04:22] LABS: Potassium 5.3 mEq/L (3.5-4.5)
[2016-09-08] MEDS: Ipratropium/Albuterol Neb 3 ML IH SCH ×3 (04:51→15:31)
[2016-09-08 04:55] LABS: ABG Base Excess 1.8 mEq/L (-2.0 to 3.0); ABG HCO3 30.5 mEQ/L (21-27); ABG Oxygen Saturation 94 % (95-98); ABG PCO2 65 mmHg (35-45); ABG PH 7.28 pH Units (7.32-7.45); ABG PO2 81 mmHg (85-104); ABG TCO2 32.5 mEq/L (20-26)
[2016-09-08 04:56] LABS: Blood Gas FiO2 40 %
[2016-09-08] MEDS: *HR* Heparin 5,000 UNIT/ML VIAL SQ SCH ×3 (06:04→20:12)
[2016-09-08] MEDS: Insulin LISPRO 300 UNITS/3 ML VIAL SQ SCH ×3 (06:08→18:52)
[2016-09-08] MEDS: Norepinephrine 4 MG in D5% in Water 250 ML IVC SCH (06:42)
--- NOTE | 2016-09-08 07:46 | Nephrology Progress Note ---
Date of Encounter: 09/08/16 Time of Encounter: 07:44 - Assessment and Plan (1) End stage renal disease on dialysis Current Visit: Yes Status: Chronic The patient will continue to be supported with dialysis every Wednesday. His last dialysis was yesterday. (2) Fluid overload Current Visit: Yes Status: Acute Qualifiers: Hypervolemia type: unspecified Qualified Code(s): E87.70 - Fluid overload, unspecified (3) Nonischemic cardiomyopathy Current Visit: No Status: Chronic (4) Respiratory acidosis Current Visit: No Status: Acute (5) ZAINAB (obstructive sleep apnea) Current Visit: Yes Status: Chronic Subjective Principal diagnosis: acute on chronic respiratory failure with hypoxia and hypercapnea Interval history: The patient remains on the ventilator. Initially yesterday he refused his dialysis. Later on he reconsidered and agreed to undergo dialysis. He remains relatively hypotensive otherwise stable Objective - Vital Signs Vital signs: Vital Signs Temp Pulse Resp BP Pulse Ox 09/08/16 07:43 97.0 F L 09/08/16 06:15 24 77/59 94 09/08/16 06:00 77 22 96/72 94 09/08/16 05:00 77 19 92/70 93 09/08/16 04:50 16 89/62 95 09/08/16 04:30 97.6 F 09/08/16 04:00 80 16 96/68 91 09/08/16 03:00 79 16 93/64 92 09/08/16 02:48 16 84/63 93 09/08/16 02:00 82 16 96/69 93 09/08/16 01:00 82 14 99/69 92 09/08/16 00:00 83 16 97/71 93 09/07/16 23:52 16 97/66 93 09/07/16 23:05 98.2 F 09/07/16 23:00 83 16 97/66 91 09/07/16 22:31 16 92 09/07/16 22:00 86 16 99/69 92 09/07/16 21:00 87 16 103/62 93 09/07/16 20:31 16 91 09/07/16 20:00 88 16 102/71 91 09/07/16 19:00 89 16 92/59 92 09/07/16 18:47 97.9 F 09/07/16 18:30 82 19 97/49 94 09/07/16 17:43 16 77/59 93 09/07/16 17:20 88 18 103/53 94 09/07/16 16:48 97.9 F 09/07/16 16:30 98.4 F 18 145/76 09/07/16 16:20 145/76 09/07/16 16:15 78 17 133/69 95 09/07/16 16:00 121/78 09/07/16 15:45 141/75 09/07/16 15:30 142/72 09/07/16 15:17 16 145/76 95 09/07/16 15:15 88 19 111/57 94 09/07/16 15:00 96/70 09/07/16 14:45 125/68 09/07/16 14:30 107/64 09/07/16 14:15 122/66 09/07/16 14:00 83 19 107/59 94 09/07/16 13:45 145/86 09/07/16 13:30 124/70 09/07/16 13:15 92/59 09/07/16 13:00 104/59 09/07/16 12:45 100/54 09/07/16 12:44 89 16 100/55 93 09/07/16 12:30 102/56 09/07/16 12:15 98/54 09/07/16 12:07 97.9 F 09/07/16 12:00 105/57 09/07/16 11:50 88 19 108/62 94 09/07/16 11:45 98.2 F 17 118/64 09/07/16 11:13 16 145/86 92 09/07/16 10:45 88 16 104/48 93 09/07/16 09:40 87 18 109/61 94 09/07/16 09:05 16 93/48 92 09/07/16 08:45 88 16 93/48 94 09/07/16 07:53 98.2 F 09/07/16 07:45 82 18 97/48 95 Intake and Output 09/07/16 09/07/16 09/08/16 15:59 23:59 07:59 Intake Total 1760 / 1760 1276 / 1276 1013 / 1013 Output Total 3600 / 3600 Balance 1760 / 1760 -2324 / -2324 1013 / 1013 Intake: IV Fluids 500 / 500 731 / 731 495 / 495 PRECEDEX 400 mcg In 100 300 / 300 400 / 400 300 / 300 ml @ 0.2 MCG/KG/HR 6.15 mls/hr IVC .[id number] [facility] Rx#:[id number] FentaNYL (PF) 1,000 MCG 200 / 200 100 / 100 195 / 195 In 0.9 % Sodium Chloride 80 ML @ 50 MCG/HR 5 mls/ hr IVC CONT [facility] Rx#: [id number] Levophed 4 MG In Dextrose 231 / 231 5% 250 ML @ 8 MCG/MIN 30 mls/hr IVC [facility] Rx#: [id number] Oral 0 / 0 Tube Feeding 460 / 460 545 / 545 518 / 518 Free Water 100 / 100 Intake, Rinseback and 600 / 600 Flushes Free Water Intake Amount 100 / 100 Output: Urine 0 / 0 Total Dialysis Output 3600 / 3600 Other: Weight 127.573 kg Blood Glucose* 154 232 183 Hemodialysis Net Fluid 3199 3000 Removed (mL) Patient Weight 09/08/16 23:59 Weight 127.573 kg - General Appearance Exam: Patient is on the ventilator. He does awaken and then he drifts back off to sleep. Yesterday he had episodes of being combative when he was less sedated. Lungs diminished breath sounds. Heart regular rate and rhythm. Abdomen is obese. No guarding nor rigidity. He has some lower extremity swelling which is actually fairly good for him at this point in time. As a left arm AV fistula. - Lab 09/08/16 03:45 09/08/16 03:45 Most recent lab results ABG pH 7.28 pH Units (7.32-7.45) L 09/08/16 04:42 ABG pCO2 65 mmHg (35-45) H 09/08/16 04:42 ABG pO2 81 mmHg (85-104) L 09/08/16 04:42 ABG HCO3 30.5 mEQ/L (21-27) H 09/08/16 04:42 ABG O2 Saturation 94 % (95-98) L 09/08/16 04:42 Calcium 8.6 mg/dL (8.6-10.8) 09/08/16 03:45 Phosphorus 8.8 mg/dL (2.3-4.7) H 09/08/16 03:45 Magnesium 2.0 mg/dL (1.6-2.6) 09/03/16 06:29 Consult Discharge Plan - Plan Referrals: Arthur Pozo MD [Primary Care Provider] -
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
[2016-09-08] MEDS: Renal Vitamin 1 MG CAPSULE PO SCH (14:06)
[2016-09-08] MEDS: Pantoprazole 40 MG VIAL IVP SCH (14:06)
[2016-09-08] MEDS: Nicotine 21 MG PATCH.TD24 TD SCH (14:07)
--- NOTE | 2016-09-08 14:49 | Consult Note ---
Date of Encounter: 09/08/16 Time of Encounter: 14:30 Assessment & Recommendation (1) Delirium due to multiple etiologies Current visit: Yes Status: Acute Assessment & Recommendation: Case was discussed in detail with the attending physician including recommendation: 1. Patient's behavior is not due to mental illness but due to delirious state 2. Medication: For agitation using Haldol is preferred and more effective than benzodiazepine 3. Medical necessity of treatment can be supported by 2 physicians documenting need for treatment in the hospital and risk of or severe disability if patient left the hospital. 4. Social work may notify Adult Protective Services and/or apply for emergency guardianship. These options can be discussed further by the treatment team. Thank you for the consultation History of Present Illness Patient: new to practice Requesting Physician: Cuauhtemoc Mcneil MD Reason for consult: Medical competence History of present illness: Mr. Hatch is a 45 year old male admitted to ICU for treatment of acute respiratory failure, hypoxemia, hypercapnia. Patient was extubated early this morning and psychiatric consultation was requested to evaluate competency to make a decision. Patient was refusing treatment and threatened to leave the hospital AGAINST MEDICAL ADVICE and attending physician felt there is risk to his life if he left the hospital at this time, patient was placed on pink slip by the attending physician. Patient has complex medical history including COPD diabetes and complications, ESRD and systolic heart failure in addition to non compliance. Review of records indicates no history of psychiatric treatment or disorder. Review of social work notes indicates problems with his discharge and some family issues or conflicts. CC: Cuauhtemoc Mcneil MD Past Med Surg Social Fam HX - Past Medical History Medical history: arthritis, cardiomyopathy, CHF, COPD, diabetes, dialysis, GERD , hyperlipidemia, hypertension, osteoporosis (vit D def.), renal disease, other - Past Surgical History Surgical History: herniorrhaphy, vascular surgery, other - Social History Smoking Status: Current every day smoker Smokeless Tobacco Status: No Alcohol use: none, unknown Drug use: marijuana, other - Family History Father Living Status: Age at : 83 Mother Adopted: No Living Status: Still Living Hx Family Cardiac Disorders: Yes Hx Family Endocrine Disorder: Yes Medications & Allergies Furosemide [Lasix] 80 mg PO DAILY #0 01/07/15 [History] Insulin ASPART [NovoLOG] 0 unit SQ TIDAC #0 01/07/15 [History] Insulin Glargine,Hum.rec.anlog [Lantus Solostar] 30 unit SQ BID #0 01/07/15 [ History] [place] Oil/[place]-3 Fatty Acids [Fish Oil 500 mg Softgel] 1 cap PO DAILY #0 [History] Pregabalin [Lyrica] 100 mg PO TID capsule 01/08/15 [Rx] Rosuvastatin [Crestor] 20 mg PO DAILY tablet 01/08/15 [Rx] Carvedilol [Coreg] 50 mg PO BIDWM 01/24/16 [History] Duloxetine HCl [Cymbalta] 60 mg PO DAILY 01/24/16 [History] Lidocaine/Prilocaine CREAM [Emla] 1 appl TP AD PRN 01/24/16 [History] Pantoprazole Sodium [Protonix] 40 mg PO DAILY 01/24/16 [History] Renal Vitamin [Renal Caps Softgel] 1 mg PO DAILY 01/24/16 [History] Ammonium Lactate [Ammonium Lactate] 1 appl TP BID 09/02/16 [History] Cinacalcet HCl [Sensipar] 60 mg PO DAILY 09/02/16 [History] HydrALAZINE 25 mg PO BID 09/02/16 [History] Isosorbide MONOnitrate (24 HR) [Imdur] 30 mg PO DAILY 09/02/16 [History] Lisinopril [Zestril] 5 mg PO DAILY PRN 09/02/16 [History] Allergies acetaminophen [From [place]] Adverse Reaction (Verified 10/31/15 14:44) Hives hydrocodone [From [place]] Adverse Reaction (Verified 10/31/15 14:44) Hives Mental Status Exam Patient orientation: Yes Person, Yes Place Level of alertness: Sedated Patient appearance: Unkempt, Disheveled, Obese Behavior: calm, cooperative, guarded Psychomotor activity: Normal Eye contact: Minimal Contact Mood description: Euthymic/stable Affect description: congruent with mood, full range Speech pattern: Normal rate, Normal rhythm, Normal tone, Limited Speech volume: Normal Thought process: Linear, Goal Oriented Thought content: No Suicidal ideation, No Homicidal ideation, No Overt delusions Perceptual disturbances: No Auditory hallucinations, No Visual hallucinations Attention span: Capable of Focused Attention Memory description: Grossly Intact Patient reliability: Reliable Historian Intelligence estimate: Average Judgment: Limited Insight: Partial Results - Vital Signs Vital signs: Temp Pulse Resp BP Pulse Ox 97.0 F L 71 22 85/57 97 09/08/16 07:43 09/08/16 10:00 09/08/16 10:00 09/08/16 10:00 09/08/16 10:00 - Labs Labs: Laboratory Last Values WBC 7.7 K/mcL (4.3-11.1) 09/08/16 03:45 RBC 4.92 M/mcL (4.19-5.50) 09/08/16 03:45 Hgb 13.2 g/dL (12.9-16.9) 09/08/16 03:45 Hct 42.3 % (37.5-50.1) 09/08/16 03:45 MCV 86.0 fL (83.0-100.0) 09/08/16 03:45 MCH 26.8 pg (28.0-33.3) L 09/08/16 03:45 MCHC 31.2 g/dL (31.6-35.5) L 09/08/16 03:45 RDW 16.6 % (11.5-14.5) H 09/08/16 03:45 Plt Count 74 K/mcL (140-400) L 09/08/16 03:45 MPV 11.3 fL (9.4-12.4) 09/08/16 03:45 Immature Gran % 0.5 % (0-4) 09/03/16 06:29 Seg Neutrophils % 75.3 % 09/03/16 06:29 Lymphocytes % 13.1 % 09/03/16 06:29 Monocytes % 9.8 % 09/03/16 06:29 Eosinophils % 0.8 % 09/03/16 06:29 Basophils % 0.5 % 09/03/16 06:29 Neutrophils # 5.6 K/mcL (1.6-8.9) 09/03/16 06:29 Lymphocytes # 1.0 K/mcL (0.6-4.6) 09/03/16 06:29 Monocytes # 0.7 K/mcL (0.0-1.3) 09/03/16 06:29 Eosinophils # 0.1 K/mcL (0.0-0.6) 09/03/16 06:29 Basophils # 0.0 K/mcL (0.0-0.2) 09/03/16 06:29 Nucleated RBCs/100 WBC 0.4 /100 WBC (0) H 09/03/16 06:29 Platelet Estimate Decreased (Normal) L 09/03/16 06:29 Immature Plt Fraction 10.4 % (1.1-6.1) H 09/08/16 03:45 PT 15.9 Seconds (9.4-12.1) H 09/08/16 03:45 INR 1.5 09/08/16 03:45 APTT 35.0 Seconds (26.0-36.0) 09/08/16 03:45 ABG pH 7.28 pH Units (7.32-7.45) L 09/08/16 04:42 ABG pCO2 65 mmHg (35-45) H 09/08/16 04:42 ABG pO2 81 mmHg (85-104) L 09/08/16 04:42 ABG HCO3 30.5 mEQ/L (21-27) H 09/08/16 04:42 ABG Total CO2 32.5 mEq/L (20-26) H 09/08/16 04:42 ABG O2 Saturation 94 % (95-98) L 09/08/16 04:42 ABG Base Excess 1.8 mEq/L (-2.0 to 3.0) 09/08/16 04:42 Blood Gas Modality ASSIST CONTROL 09/08/16 04:42 Inspired O2 40 % 09/08/16 04:42 Sodium 138 mEq/L (136-145) 09/08/16 03:45 Potassium 5.3 mEq/L (3.5-4.5) H 09/08/16 03:45 Chloride 99 mEq/L (98-109) 09/08/16 03:45 Carbon Dioxide 26 mEq/L (19-29) 09/08/16 03:45 BUN 48 mg/dL (8-26) H D 09/08/16 03:45 Creatinine 7.85 mg/dL (0.72-1.25) H 09/08/16 03:45 Est GFR ( Amer) 9 (> 60) L 09/08/16 03:45 Est GFR (Non-Af Amer) 7 (> 60) L 09/08/16 03:45 BUN/Creatinine Ratio 6 (6-26) 09/08/16 03:45 Glucose 203 mg/dL (70-99) H 09/08/16 03:45 POC Glucose 183 (58-89) H 09/08/16 04:25 Calculated Osmolality 304 (280-300) H 09/08/16 03:45 Lactic Acid 0.6 mmol/L (0.5-2.2) 09/04/16 05:00 Calcium 8.6 mg/dL (8.6-10.8) 09/08/16 03:45 Ionized Calcium 1.09 mmol/L (1.15-1.35) L 09/08/16 03:45 Phosphorus 8.8 mg/dL (2.3-4.7) H 09/08/16 03:45 Magnesium 2.0 mg/dL (1.6-2.6) 09/03/16 06:29 Total Bilirubin 0.9 mg/dL (0.2-1.2) 09/04/16 03:10 Direct Bilirubin 0.4 mg/dL (0.0-0.5) 09/04/16 03:10 Indirect Bilirubin 0.5 mg/dL (0.0-1.2) 09/04/16 03:10 AST 11 Units/L (5-34) 09/04/16 03:10 ALT 9 Units/L (0-55) 09/04/16 03:10 Alkaline Phosphatase 429 Units/L (38-126) H 09/04/16 03:10 Troponin I 0.13 ng/mL (0-0.03) H* 09/03/16 21:00 B-Natriuretic Peptide 1949 pg/mL (0-100) H 09/04/16 03:10 Serum Total Protein 6.6 g/dL (6.0-8.3) 09/04/16 03:10 Albumin 2.9 g/dL (3.5-5.0) L 09/04/16 03:10 Globulin 3.7 g/dL (2.4-3.5) H 09/04/16 03:10 Albumin/Globulin Ratio 0.8 (1.1-2.2) L 09/04/16 03:10 Triglycerides 184 mg/dL (< 150) H 09/03/16 06:29 Cholesterol 111 mg/dL (< 200) 09/03/16 06:29 LDL Cholesterol, Calc 45 mg/dL (0-99) 09/03/16 06:29 VLDL Cholesterol, Calc 37 mg/dL (< 31) H 09/03/16 06:29 HDL Cholesterol 29 mg/dL (40-59) L 09/03/16 06:29 Cholesterol/HDL Ratio 3.8 (0-4.9) 09/03/16 06:29 Urine Color Dark Yellow (Yellow) 09/04/16 04:59 Urine Clarity Cloudy (Clear) A 09/04/16 04:59 Urine pH 6.0 pH Units (5.0-8.0) 09/04/16 04:59 Ur Specific [place] 1.023 (1.010-1.025) 09/04/16 04:59 Urine Protein >=1000 mg/dL (Neg-Trace) H 09/04/16 04:59 Urine Glucose (UA) 250 mg/dL (Normal) H 09/04/16 04:59 Urine Ketones Trace mg/dL (Negative) H 09/04/16 04:59 Urine Blood Large (Negative) H 09/04/16 04:59 Urine Nitrite Negative (Negative) 09/04/16 04:59 Urine Bilirubin Small (Negative) H 09/04/16 04:59 Urine Urobilinogen Normal mg/dL (Normal) 09/04/16 04:59 Ur Leukocyte Esterase Small (Negative) H 09/04/16 04:59 Urine Microscopic RBC TNTC per hpf (0-3) H 09/04/16 04:59 Urine Microscopic WBC 30-50 per hpf (0-3) H 09/04/16 04:59 Ur Squamous Epith Cells Many per lpf (None-Few) H 09/04/16 04:59 Amorphous Sediment Few (Few) 09/03/16 21:00 Urine Bacteria Many per hpf (None-Few) H 09/04/16 04:59 Hyaline Casts None Seen per lpf (None-Few) 09/04/16 04:59 Urine Yeast Test Not Performed 09/03/16 21:00 Ur Culture Indicated? YES (NO) A 09/03/16 21:00 Urine Opiates Screen Negative ng/mL (Kcavjk=481) 09/04/16 04:59 Ur Barbiturates Screen Negative ng/mL (Dbytke=214) 09/04/16 04:59 Ur Phencyclidine Scrn Negative ng/mL (Cutoff=25) 09/04/16 04:59 Ur Amphetamines Screen Negative ng/mL (Aqivyv=1259) 09/04/16 04:59 U Benzodiazepines Scrn Negative ng/mL (Smixxv=023) 09/04/16 04:59 Urine Cocaine Screen Negative ng/mL (Cutoff= 300) 09/04/16 04:59 U Marijuana (THC) Screen Negative ng/mL (Cutoff = 50) 09/04/16 04:59 Hep Bs Antigen Nonreactive (Nonreactive) 09/04/16 08:27 Hep Bs Antibody 0.00 mIU/mL 09/04/16 08:27 Specimen Rejected Miscellaneous 09/03/16 08:05 Consult Discharge Plan - Plan Referrals: Arthur Pozo MD [Primary Care Provider] -
[2016-09-08] MEDS: Ondansetron 4 MG/2 ML VIAL IVP PRN (16:36)
[2016-09-08] MEDS: Chlorhexidine Rinse 15 ML MOUTHWASH MM SCH ×2 (18:52→20:09)
[2016-09-08] MEDS: Insulin DETEMIR 100 UNIT/ML X5UNITS SQ SCH ×2 (18:56→21:11)
[2016-09-08] MEDS: Ammonium Lactate 30 APPL/225 GM BOTTLE TP SCH ×2 (19:59→20:09)
[2016-09-09] MEDS: Ipratropium/Albuterol Neb 3 ML IH SCH ×6 (00:18→22:44)
[2016-09-09] MEDS: Dexmedetomidine HCl 400 MCG/100 ML MLS IVC SCH (01:23)
[2016-09-09] MEDS: Lacri-Lube 3.5 GM TUBE BOTH EYES SCH ×2 (01:23→03:49)
[2016-09-09] MEDS: Ondansetron 4 MG/2 ML VIAL IVP PRN ×2 (01:54→11:36)
[2016-09-09 04:23] LABS: Basophils % 0.1 %; Monocytes % 8.1 %
[2016-09-09 04:24] LABS: Eosinophils % 0.2 %; Hematocrit 45.3 % (37.5-50.1); Hemoglobin 13.6 g/dL (12.9-16.9); Immature Granulocytes % 0.5 % (0-4); Immature Platelets 11.3 % (1.1-6.1); Lymphocytes # 0.5 K/mcL (0.6-4.6); Lymphocytes % 4.5 %; Mean Corpuscular Hemoglobin 26.7 pg (28.0-33.3); Mean Corpuscular Volume 88.8 fL (83.0-100.0); Mean Platelet Volume 12.9 fL (9.4-12.4); Monocytes # 0.9 K/mcL (0.0-1.3); Neutrophils # 9.2 K/mcL (1.6-8.9); Red Cell Distribution Width 16.4 % (11.5-14.5); Segmented Neutrophils % 86.6 %
[2016-09-09 04:25] LABS: Platelet Count 89 K/mcL (140-400)
[2016-09-09 04:34] LABS: Calcium 8.6 mg/dL (8.6-10.8)
[2016-09-09] MEDS ORDERED: *HR* Promethazine 25 MG/ML VIAL IVP ONE (04:36)
[2016-09-09] MEDS: FentaNYL (PF) 1,000 MCG in 0.9 % Sodium Chloride 80 ML IVC SCH (04:54)
[2016-09-09 04:55] LABS: Potassium 6.5 mEq/L (3.5-4.5)
[2016-09-09] MEDS ORDERED: Albuterol 2.5 MG/3 ML NEBULIZER IH ONE (05:01)
[2016-09-09] MEDS ORDERED: Calcium Gluconate 1,000 MG in D5% in Water 100 ML IVPB ONE (05:01)
[2016-09-09] MEDS: *HR* Heparin 5,000 UNIT/ML VIAL SQ SCH ×3 (05:02→21:50)
[2016-09-09] MEDS: Insulin LISPRO 300 UNITS/3 ML VIAL SQ SCH ×4 (05:23→20:44)
[2016-09-09] MEDS: Norepinephrine 4 MG in D5% in Water 250 ML IVC SCH (05:24)
--- NOTE | 2016-09-09 08:00 | Pulmonology Progress Note ---
<Donal Curry - Last Filed: 09/09/16 08:13> Date of Encounter: 09/09/16 Time of Encounter: 07:45 Assessment and Plan (1) Acute on chronic respiratory failure with hypoxia and hypercapnia Current Visit: Yes Status: Acute Secondary to volume overload, acute exacerbation of CHF, medication, obesity, and COPD. Extubated yesterday morning. Has been saturating well on NC. Albuterol Q4hr Continue conservative management and supplemental oxygen as needed. (2) COPD exacerbation Current Visit: No Status: Acute Secondary to volume overload. See plan above. (3) End stage renal disease on dialysis Current Visit: Yes Status: Chronic Continue dialysis at this time. History of noncompliance with his dialysis. Scheduled dialysis Wednesday, Wednesday, Wednesday. Hyperkalemia this morning at 6.5. Due for dialysis early this morning. (4) Diabetes mellitus type 2, uncontrolled, with complications Current Visit: No Status: Chronic On a renal diet. POC glucose Q6 Lantus 20mg SQ BID SSI medium. Will continue to monitor closely. May need adjustment now that the patient has started PO intake. Glucose acceptable this morning at 121. 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 Dilated RV. Reduced LV function. (6) DVT prophylaxis Current Visit: No Status: Acute Heparin Omeprazole for GI prophylaxis. Subjective Principal diagnosis: acute on chronic respiratory failure with hypoxia and hypercapnea Interval history: The patient was seen and examined. No acute events overnight. Yesterday the patient was pink slipped due to wanting to leave the hospital AMA and the severity of his condition causing significant mortality risk if he were to leave. He was evaluated by psychiatry and determined to be in a delirious state. Medical necessity of treatment can be supported by 2 physicians documenting need for treatment in the hospital. He was extubated yesterday and has been oxygenating well with NC. He was hyperkalemic this morning at 6.5 and is due for dialysis this morning. He was discussed with the hospitalist and is cleared for transfer to a telemetry dialysis bed. Objective PUL Vital signs: Last Vital Signs Temp 97.7 F 09/09/16 04:57 Pulse 103 09/09/16 06:00 Resp 22 09/09/16 06:00 BP 132/88 09/09/16 06:00 Pulse Ox 94 09/09/16 06:00 General appearance: asleep Eyes: nonicteric ENT: oropharynx moist Effort: normal Auscultation: bilateral: diminished breath sounds (lung bases) Cardiovascular: regular rate and rhythm Gastrointestinal: normoactive bowel sounds, soft, non-tender, other (obese) Integumentary: normal Extremities: no cyanosis Musculoskeletal: no deformities other (unable to assess due to sedation) Results - Laboratory Findings CBC and BMP: 09/09/16 04:10 09/09/16 04:10 ABG ABG pH 7.28 pH Units (7.32-7.45) L 09/08/16 04:42 ABG pCO2 65 mmHg (35-45) H 09/08/16 04:42 ABG pO2 81 mmHg (85-104) L 09/08/16 04:42 ABG O2 Saturation 94 % (95-98) L 09/08/16 04:42 PT/INR, D-dimer PT 15.9 Seconds (9.4-12.1) H 09/08/16 03:45 Abnormal lab findings: Abnormal lab results MCH 26.7 pg (28.0-33.3) L 09/09/16 04:10 MCHC 30.0 g/dL (31.6-35.5) L 09/09/16 04:10 RDW 16.4 % (11.5-14.5) H 09/09/16 04:10 Plt Count 89 K/mcL (140-400) L 09/09/16 04:10 MPV 12.9 fL (9.4-12.4) H 09/09/16 04:10 Neutrophils # 9.2 K/mcL (1.6-8.9) H 09/09/16 04:10 Lymphocytes # 0.5 K/mcL (0.6-4.6) L 09/09/16 04:10 Nucleated RBCs/100 WBC 0.4 /100 WBC (0) H 09/03/16 06:29 Platelet Estimate Decreased (Normal) L 09/03/16 06:29 Immature Plt Fraction 11.3 % (1.1-6.1) H 09/09/16 04:10 PT 15.9 Seconds (9.4-12.1) H 09/08/16 03:45 ABG pH 7.28 pH Units (7.32-7.45) L 09/08/16 04:42 ABG pCO2 65 mmHg (35-45) H 09/08/16 04:42 ABG pO2 81 mmHg (85-104) L 09/08/16 04:42 ABG HCO3 30.5 mEQ/L (21-27) H 09/08/16 04:42 ABG Total CO2 32.5 mEq/L (20-26) H 09/08/16 04:42 ABG O2 Saturation 94 % (95-98) L 09/08/16 04:42 Potassium 6.5 mEq/L (3.5-4.5) H* D 09/09/16 04:10 Chloride 97 mEq/L (98-109) L 09/09/16 04:10 BUN 63 mg/dL (8-26) H D 09/09/16 04:10 Creatinine 9.34 mg/dL (0.72-1.25) H 09/09/16 04:10 Est GFR ( Amer) 7 (> 60) L 09/09/16 04:10 Est GFR (Non-Af Amer) 6 (> 60) L 09/09/16 04:10 Glucose 121 mg/dL (70-99) H 09/09/16 04:10 POC Glucose 108 (58-89) H 09/09/16 04:20 Calculated Osmolality 303 (280-300) H 09/09/16 04:10 Ionized Calcium 1.09 mmol/L (1.15-1.35) L 09/08/16 03:45 Phosphorus 8.8 mg/dL (2.3-4.7) H 09/08/16 03:45 Alkaline Phosphatase 429 Units/L (38-126) H 09/04/16 03:10 Troponin I 0.13 ng/mL (0-0.03) H* 09/03/16 21:00 B-Natriuretic Peptide 1949 pg/mL (0-100) H 09/04/16 03:10 Albumin 2.9 g/dL (3.5-5.0) L 09/04/16 03:10 Globulin 3.7 g/dL (2.4-3.5) H 09/04/16 03:10 Albumin/Globulin Ratio 0.8 (1.1-2.2) L 09/04/16 03:10 Triglycerides 184 mg/dL (< 150) H 09/03/16 06:29 VLDL Cholesterol, Calc 37 mg/dL (< 31) H 09/03/16 06:29 HDL Cholesterol 29 mg/dL (40-59) L 09/03/16 06:29 Urine Clarity Cloudy (Clear) A 09/04/16 04:59 Urine Protein >=1000 mg/dL (Neg-Trace) H 09/04/16 04:59 Urine Glucose (UA) 250 mg/dL (Normal) H 09/04/16 04:59 Urine Ketones Trace mg/dL (Negative) H 09/04/16 04:59 Urine Blood Large (Negative) H 09/04/16 04:59 Urine Bilirubin Small (Negative) H 09/04/16 04:59 Ur Leukocyte Esterase Small (Negative) H 09/04/16 04:59 Urine Microscopic RBC TNTC per hpf (0-3) H 09/04/16 04:59 Urine Microscopic WBC 30-50 per hpf (0-3) H 09/04/16 04:59 Ur Squamous Epith Cells Many per lpf (None-Few) H 09/04/16 04:59 Urine Bacteria Many per hpf (None-Few) H 09/04/16 04:59 Ur Culture Indicated? YES (NO) A 09/03/16 21:00 - Microbiology Findings Microbiology Findings: Microbiology, Last 48 Hours 09/07/16 02:20 Sputum Culture - Final Sputum - Clinical Findings Intake & Output: Intake & Output 09/08/16 09/09/16 09/09/16 23:59 07:59 15:59 Intake Total 240 / 240 210 / 210 Output Total 150 / 150 Balance 240 / 240 60 / 60 Weight 134.626 kg Consult Discharge Plan - Plan Referrals: Arthur Pozo MD [Primary Care Provider] - <Alexi Gaffney W - Last Filed: 09/09/16 11:56> Date of Encounter: 09/09/16 Objective PUL Vital signs: Last Vital Signs Temp 97.9 F 05/03/17 08:14 Pulse 107 09/09/16 08:52 Resp 20 09/09/16 10:03 BP 125/69 09/09/16 08:14 Pulse Ox 98 09/09/16 10:03 Results - Laboratory Findings CBC and BMP: 09/09/16 04:10 09/09/16 04:10 ABG ABG pH 7.28 pH Units (7.32-7.45) L 09/08/16 04:42 ABG pCO2 65 mmHg (35-45) H 09/08/16 04:42 ABG pO2 81 mmHg (85-104) L 09/08/16 04:42 ABG O2 Saturation 94 % (95-98) L 09/08/16 04:42 PT/INR, D-dimer PT 15.9 Seconds (9.4-12.1) H 09/08/16 03:45 Abnormal lab findings: Abnormal lab results MCH 26.7 pg (28.0-33.3) L 09/09/16 04:10 MCHC 30.0 g/dL (31.6-35.5) L 09/09/16 04:10 RDW 16.4 % (11.5-14.5) H 09/09/16 04:10 Plt Count 89 K/mcL (140-400) L 09/09/16 04:10 MPV 12.9 fL (9.4-12.4) H 09/09/16 04:10 Neutrophils # 9.2 K/mcL (1.6-8.9) H 09/09/16 04:10 Lymphocytes # 0.5 K/mcL (0.6-4.6) L 09/09/16 04:10 Nucleated RBCs/100 WBC 0.4 /100 WBC (0) H 09/03/16 06:29 Platelet Estimate Decreased (Normal) L 09/03/16 06:29 Immature Plt Fraction 11.3 % (1.1-6.1) H 09/09/16 04:10 PT 15.9 Seconds (9.4-12.1) H 09/08/16 03:45 ABG pH 7.28 pH Units (7.32-7.45) L 09/08/16 04:42 ABG pCO2 65 mmHg (35-45) H 09/08/16 04:42 ABG pO2 81 mmHg (85-104) L 09/08/16 04:42 ABG HCO3 30.5 mEQ/L (21-27) H 09/08/16 04:42 ABG Total CO2 32.5 mEq/L (20-26) H 09/08/16 04:42 ABG O2 Saturation 94 % (95-98) L 09/08/16 04:42 Potassium 6.5 mEq/L (3.5-4.5) H* D 09/09/16 04:10 Chloride 97 mEq/L (98-109) L 09/09/16 04:10 BUN 63 mg/dL (8-26) H D 09/09/16 04:10 Creatinine 9.34 mg/dL (0.72-1.25) H 09/09/16 04:10 Est GFR ( Amer) 7 (> 60) L 09/09/16 04:10 Est GFR (Non-Af Amer) 6 (> 60) L 09/09/16 04:10 Glucose 121 mg/dL (70-99) H 09/09/16 04:10 POC Glucose 108 (58-89) H 09/09/16 04:20 Calculated Osmolality 303 (280-300) H 09/09/16 04:10 Ionized Calcium 1.09 mmol/L (1.15-1.35) L 09/08/16 03:45 Phosphorus 8.8 mg/dL (2.3-4.7) H 09/08/16 03:45 Alkaline Phosphatase 429 Units/L (38-126) H 09/04/16 03:10 Troponin I 0.13 ng/mL (0-0.03) H* 09/03/16 21:00 B-Natriuretic Peptide 1949 pg/mL (0-100) H 09/04/16 03:10 Albumin 2.9 g/dL (3.5-5.0) L 09/04/16 03:10 Globulin 3.7 g/dL (2.4-3.5) H 09/04/16 03:10 Albumin/Globulin Ratio 0.8 (1.1-2.2) L 09/04/16 03:10 Triglycerides 184 mg/dL (< 150) H 09/03/16 06:29 VLDL Cholesterol, Calc 37 mg/dL (< 31) H 09/03/16 06:29 HDL Cholesterol 29 mg/dL (40-59) L 09/03/16 06:29 Urine Clarity Cloudy (Clear) A 09/04/16 04:59 Urine Protein >=1000 mg/dL (Neg-Trace) H 09/04/16 04:59 Urine Glucose (UA) 250 mg/dL (Normal) H 09/04/16 04:59 Urine Ketones Trace mg/dL (Negative) H 09/04/16 04:59 Urine Blood Large (Negative) H 09/04/16 04:59 Urine Bilirubin Small (Negative) H 09/04/16 04:59 Ur Leukocyte Esterase Small (Negative) H 09/04/16 04:59 Urine Microscopic RBC TNTC per hpf (0-3) H 09/04/16 04:59 Urine Microscopic WBC 30-50 per hpf (0-3) H 09/04/16 04:59 Ur Squamous Epith Cells Many per lpf (None-Few) H 09/04/16 04:59 Urine Bacteria Many per hpf (None-Few) H 09/04/16 04:59 Ur Culture Indicated? YES (NO) A 09/03/16 21:00 - Microbiology Findings Microbiology Findings: Microbiology, Last 48 Hours 09/07/16 02:20 Sputum Culture - Final Sputum - Clinical Findings Intake & Output: Intake & Output 09/08/16 09/09/16 09/09/16 23:59 07:59 15:59 Intake Total 240 / 240 210 / 210 Output Total 150 / 150 Balance 240 / 240 60 / 60 Weight 134.626 kg - Attending Attestation I examined this patient and my medical decision-making was reviewed with the TIMBER WATCHMAN/PA/Advanced Practice Nurse/Resident Physician. I agree with the documented findings, disposition and treatment plan as described except to the extent set forth below. Impression: 1. Acute on Chronic Respiratory Failure 2. ADHF 3. ESRD 4. COPD 5. ZAINAB/OHS 6. Poor impulse control/Medical Non Compliance Recs: 1. Improved Extubated 5/2- cont supplemental NC 02 to keep sat >88% -92% 2. Volume removed with FILAMENT WELDER. BP stable. cont to optimize HF meds 3. Plan for FILAMENT WELDER today 4. Cont BDs 5. Nocturnal BiPAP support 6. donor services technician consulted along with Psychiatry. (appreciate recs) Cont DVT prophylaxis Stable for transfer to telemetry for ongoing care
[2016-09-09] MEDS: Pantoprazole 40 MG VIAL IVP SCH (08:02)
[2016-09-09] MEDS ORDERED: 0.9 % Sodium Chloride 250 ML IVC PRN ×3 (08:12→08:48)
--- NOTE | 2016-09-09 08:12 | Nephrology Progress Note ---
Date of Encounter: 09/09/16 Time of Encounter: 08:10 - Assessment and Plan (1) End stage renal disease on dialysis Current Visit: Yes Status: Chronic The patient will undergo dialysis today with a 2K bath. Orders have been submitted. (2) Fluid overload Current Visit: Yes Status: Acute Qualifiers: Hypervolemia type: unspecified Qualified Code(s): E87.70 - Fluid overload, unspecified (3) Nonischemic cardiomyopathy Current Visit: No Status: Chronic (4) Respiratory acidosis Current Visit: No Status: Acute (5) ZAINAB (obstructive sleep apnea) Current Visit: Yes Status: Chronic Subjective Principal diagnosis: acute on chronic respiratory failure with hypoxia and hypercapnea Interval history: The patient is now extubated. He is sleeping. He will awaken to verbal stimuli. However he will then drifts right back off to sleep. His blood pressure is better. He is off vasopressors. Potassium is elevated. He is scheduled for dialysis this morning. Objective - Vital Signs Vital signs: Vital Signs Temp Pulse Resp BP Pulse Ox 09/09/16 06:00 103 22 132/88 94 09/09/16 05:21 25 122/65 91 09/09/16 05:00 92 22 123/78 92 09/09/16 04:57 97.7 F 09/09/16 04:08 24 120/80 91 09/09/16 04:00 96 22 120/80 91 09/09/16 03:00 96 24 117/73 92 09/09/16 02:00 95 22 109/70 90 09/09/16 01:00 93 18 109/73 90 09/09/16 00:18 23 89 09/09/16 00:15 97.9 F 09/09/16 00:00 93 22 105/71 91 09/08/16 23:00 90 20 105/66 90 09/08/16 22:00 92 20 104/66 91 09/08/16 21:00 93 20 109/72 90 09/08/16 20:07 97.6 F 09/08/16 20:00 92 20 117/82 90 09/08/16 19:49 16 127/82 90 09/08/16 19:00 87 22 127/82 92 09/08/16 18:00 88 20 114/78 93 09/08/16 17:00 91 20 100/62 94 09/08/16 16:00 97.6 F 88 22 101/65 09/08/16 15:55 97.6 F 09/08/16 15:33 20 95 09/08/16 14:00 73 20 99/67 93 09/08/16 13:00 72 20 106/73 96 09/08/16 12:00 74 22 107/66 09/08/16 11:00 71 20 106/76 09/08/16 10:00 71 22 85/57 97 09/08/16 09:00 76 22 90/65 95 09/08/16 08:33 24 105/72 93 09/08/16 08:32 105/72 93 09/08/16 08:29 24 105/72 93 Intake and Output 09/08/16 09/09/16 09/09/16 23:59 07:59 15:59 Intake Total 240 / 240 210 / 210 Output Total 150 / 150 Balance 240 / 240 60 / 60 Intake: IV Fluids 210 / 210 PRECEDEX 400 mcg In 100 100 / 100 ml @ 0.2 MCG/KG/HR 6.15 mls/hr IVC .[id number] [facility] Rx#:[id number] Calcium Gluconate 1,000 110 / 110 MG In Dextrose 5% 100 ML @ 220 mls/hr IVPB ONCE ONE Rx#:[id number] Oral 240 / 240 0 / 0 Output: Emesis 150 / 150 Other: Stool Size Large Stool Consistency soft Stool Color Brown # Bowel Movements 1 Weight 134.626 kg Blood Glucose* 224 108 Patient Weight 09/09/16 23:59 Weight 134.626 kg - General Appearance Exam: The patient is somnolent. He awakens to verbal stimuli and then drifts off back to sleep. Lungs diminished breath sounds. Heart regular rate and rhythm. Abdomen is obese. There is no tenderness. There is no guarding or rigidity. There is chronic edema of the lower extremities which is actually fairly good for the patient currently. There is a functioning AV fistula in the left arm. - Lab 09/09/16 04:10 09/09/16 04:10 Most recent lab results ABG pH 7.28 pH Units (7.32-7.45) L 09/08/16 04:42 ABG pCO2 65 mmHg (35-45) H 09/08/16 04:42 ABG pO2 81 mmHg (85-104) L 09/08/16 04:42 ABG HCO3 30.5 mEQ/L (21-27) H 09/08/16 04:42 ABG O2 Saturation 94 % (95-98) L 09/08/16 04:42 Calcium 8.6 mg/dL (8.6-10.8) 09/09/16 04:10 Phosphorus 8.8 mg/dL (2.3-4.7) H 09/08/16 03:45 Magnesium 2.0 mg/dL (1.6-2.6) 09/03/16 06:29 Consult Discharge Plan - Plan Referrals: Arthur Pozo MD [Primary Care Provider] -
[2016-09-09] MEDS ORDERED: Naloxone 0.4 MG/ML INJ IVP PRN (08:48)
[2016-09-09] MEDS ORDERED: *HR* Midazolam HCl 2 MG/2 ML VIAL IVP PRN (08:48)
[2016-09-09] MEDS ORDERED: *HR* Dextrose 50 % in Water (Syg) 50 ML SYRINGE IVP PRN (08:48)
[2016-09-09] MEDS ORDERED: D5% in Water 1,000 ML IVC PRN (08:48)
[2016-09-09] MEDS ORDERED: Dexmedetomidine HCl 400 MCG/100 ML MLS IVC SCH (08:48)
[2016-09-09] MEDS ORDERED: Albuterol 2.5 MG/3 ML NEBULIZER IH PRN (08:48)
[2016-09-09] MEDS ORDERED: Dextrose Gel 15 GM PO PRN ×2 (08:48)
[2016-09-09] MEDS ORDERED: 0.9 % Sodium Chloride 1,000 ML PRIME SCH (08:48)
[2016-09-09] MEDS: Nicotine 21 MG PATCH.TD24 TD SCH (09:05)
[2016-09-09] MEDS: Renal Vitamin 1 MG CAPSULE PO SCH (09:33)
--- NOTE | 2016-09-09 14:55 | Electrocardiograph Report ---
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
[2016-09-09] MEDS: Insulin DETEMIR 100 UNIT/ML X5UNITS SQ SCH ×2 (14:56→21:49)
[2016-09-09] MEDS ORDERED: *HR* LORazepam 2 MG/ML VIAL IVP ONE (15:35)
[2016-09-09] MEDS: Ammonium Lactate 30 APPL/225 GM BOTTLE TP SCH ×2 (15:52→21:49)
[2016-09-09] MEDS ORDERED: 0.9 % Sodium Chloride 2,000 ML ONE (17:17)
[2016-09-09] MEDS: Pregabalin 50 MG CAPSULE PO SCH (23:22)
[2016-09-10] MEDS: Insulin LISPRO 300 UNITS/3 ML VIAL SQ SCH ×5 (00:01→22:00)
[2016-09-10 04:42] LABS: Basophils % 0.1 %; Eosinophils % 0.1 %; Hematocrit 41.7 % (37.5-50.1); Hemoglobin 12.6 g/dL (12.9-16.9); Immature Granulocytes % 0.6 % (0-4); Lymphocytes # 0.6 K/mcL (0.6-4.6); Lymphocytes % 5.6 %; Mean Corpuscular HGB Conc 30.2 g/dL (31.6-35.5); Mean Corpuscular Hemoglobin 26.8 pg (28.0-33.3); Mean Corpuscular Volume 88.7 fL (83.0-100.0); Mean Platelet Volume 11.5 fL (9.4-12.4); Monocytes # 0.9 K/mcL (0.0-1.3); Monocytes % 8.7 %; Platelet Count 111 K/mcL (140-400); Red Cell Distribution Width 16.6 % (11.5-14.5); Segmented Neutrophils % 84.9 %
[2016-09-10] MEDS: Ipratropium/Albuterol Neb 3 ML IH SCH ×4 (04:44→21:13)
[2016-09-10 04:53] LABS: Calcium 8.6 mg/dL (8.6-10.8); Potassium 5.5 mEq/L (3.5-4.5)
[2016-09-10] MEDS: *HR* Heparin 5,000 UNIT/ML VIAL SQ SCH ×3 (05:09→21:59)
[2016-09-10] MEDS: Ammonium Lactate 30 APPL/225 GM BOTTLE TP SCH ×2 (08:30→22:05)
[2016-09-10] MEDS: Nicotine 21 MG PATCH.TD24 TD SCH ×2 (08:48→08:50)
[2016-09-10] MEDS: Renal Vitamin 1 MG CAPSULE PO SCH (08:49)
[2016-09-10] MEDS: Insulin DETEMIR 100 UNIT/ML X5UNITS SQ SCH ×2 (08:58→22:00)
[2016-09-10] MEDS: Pregabalin 50 MG CAPSULE PO SCH (08:58)
--- NOTE | 2016-09-10 09:25 | Nephrology Progress Note ---
Date of Encounter: 09/10/16 Time of Encounter: 09:15 - Assessment and Plan (1) End stage renal disease on dialysis Current Visit: Yes Status: Chronic Acute on chronic respiratory failure. ESRD. No HD today. Subjective Principal diagnosis: acute on chronic respiratory failure with hypoxia and hypercapnea Interval history: Sleeping, arouses easily though dozes back off readily Objective - Vital Signs Vital signs: Vital Signs Temp Pulse Resp BP Pulse Ox 09/10/16 07:27 98.1 F 105 18 105/60 94 09/10/16 04:44 18 91 09/10/16 04:23 98.2 F 124 23 128/75 91 09/09/16 23:50 99.1 F 128 25 120/68 92 09/09/16 19:38 98.7 F 126 21 124/78 93 09/09/16 16:33 20 92 09/09/16 16:26 99.1 F 121 19 120/65 90 09/09/16 14:30 97.9 F 18 107/52 09/09/16 14:20 115/61 09/09/16 14:15 115/61 09/09/16 14:00 101/53 09/09/16 13:45 101/53 09/09/16 13:30 107/58 09/09/16 13:15 104/56 09/09/16 13:00 118/61 09/09/16 12:45 123/61 09/09/16 12:30 106/56 09/09/16 12:15 110/58 09/09/16 12:00 108/57 09/09/16 11:45 103/56 09/09/16 11:30 114/59 09/09/16 11:15 115/62 09/09/16 11:00 117/65 09/09/16 10:45 129/73 09/09/16 10:30 125/74 09/09/16 10:15 131/78 09/09/16 10:03 20 98 09/09/16 10:00 97.9 F 18 129/82 Intake and Output 09/09/16 09/10/16 09/10/16 23:59 07:59 15:59 Intake Total 0 / 0 480 / 480 Balance 0 / 0 480 / 480 Intake: Oral 0 / 0 480 / 480 Other: Meal Dinner Breakfast Percent of Meal Consumed 0% 0% Weight 118.6 kg Blood Glucose* 106 104 Patient Weight 09/10/16 23:59 Weight 118.6 kg - General Appearance General appearance: Present: well-developed, well-nourished, appears started age , obese EENT: Present: mucous membranes moist Neck: Present: no JVD Respiratory: Present: rhonchi Cardiology: Present: regular rate, regular rhythm Additional Comments: mild pitting edema Gastrointestinal: Present: normoactive bowel sounds, no tenderness Integumentary: Present: warm and dry Psychiatric: Present: cooperative - Lab 09/10/16 04:30 09/10/16 04:30 Most recent lab results ABG pH 7.28 pH Units (7.32-7.45) L 09/08/16 04:42 ABG pCO2 65 mmHg (35-45) H 09/08/16 04:42 ABG pO2 81 mmHg (85-104) L 09/08/16 04:42 ABG HCO3 30.5 mEQ/L (21-27) H 09/08/16 04:42 ABG O2 Saturation 94 % (95-98) L 09/08/16 04:42 Calcium 8.6 mg/dL (8.6-10.8) 09/10/16 04:30 Phosphorus 8.8 mg/dL (2.3-4.7) H 09/08/16 03:45 Magnesium 2.0 mg/dL (1.6-2.6) 09/03/16 06:29 Consult Discharge Plan - Plan Referrals: Arthur Pozo MD [Primary Care Provider] -
--- NOTE | 2016-09-10 11:24 | Internal Med Progress Note ---
Date of Encounter: 09/10/16 Time of Encounter: 11:21 - Assessment and plan (1) Acute on chronic respiratory failure with hypoxia and hypercapnia Current Visit: Yes Status: Acute Assessment and plan: Secondary to chronic COPD and acute CHF decompensation secondary to med noncompliance Also has history of ZAINAB and non compliant with bipap support Currently on bipap support and will continue as long as patient allows it on O2 supplementation will repeat ABG after the patient has been on bipap support for a few hours pt remains at high risk of intubation he was noted to be started on lyrica overnight, will hold at this time, given intermittent mental status changes ABG consistent with acute respiratory acidosis continue bronchodilator support HD as per nephrology for volume removal (2) Anemia Current Visit: No Status: Chronic Assessment and plan: H&H within acceptable range will continue to monitor Qualifiers: Anemia type: other cause Other causes of anemia: chronic disease, kidney Qualified Code(s): N18.9 - Chronic kidney disease, unspecified; D63.1 - Anemia in chronic kidney disease (3) CHF (congestive heart failure) Current Visit: No Status: Chronic Assessment and plan: Severe CHF with LVEF of 20% medical noncompliance reported Will continue BB, Imdur as per old home meds/records, as per pharmacists verification, patient has not filled any medications since March Volume removed by FARM MANAGEMENT TEACHER (next HD in am) Qualifiers: Congestive heart failure type: combined Congestive heart failure chronicity : chronic Qualified Code(s): I50.42 - Chronic combined systolic (congestive) and diastolic (congestive) heart failure (4) COPD exacerbation Current Visit: No Status: Acute Assessment and plan: plan as listed above (5) Diabetes mellitus Current Visit: Yes Status: Chronic Assessment and plan: BG within acceptable range continue to monitor FS and BG continue ss insulin continue Levemir Qualifiers: Diabetes mellitus type: type 2 Diabetes mellitus complication detail: with chronic kidney disease Diabetes mellitus intermediate insulin use: unspecified intermediate insulin use status Chronic kidney disease stage: on chronic dialysis Qualified Code(s): E11.22 - Type 2 diabetes mellitus with diabetic chronic kidney disease; N18.6 - End stage renal disease (6) DVT prophylaxis Current Visit: No Status: Acute Assessment and plan: Heparin SQ (7) End stage renal disease on dialysis Current Visit: Yes Status: Chronic Assessment and plan: Nephrology input appreciated continue FARM MANAGEMENT TEACHER as per nephrology (8) Obesity (BMI 30-39.9) Current Visit: Yes Status: Chronic (9) Tobacco abuse Current Visit: No Status: Chronic Assessment and plan: nicotine patch PRN - Subjective Interval history: Patient seen and examined with family present at bedside. Patient noted to be somnolent today and was difficult to arouse. As per nursing report he has been agitated and hostile towards the nursing staff and has been refusing PO meds and lab testing. During my evaluation, he is somnolent and was reported to be started on his home dose of liliana which is not renally dose. He is reported to be extremely non compliant with not taking his home medication and hasn't filled his medications since March. After reviewing the ABG results and worsening clinical status, decision to intubate the patient was made. as patient was approached by the ICU nurse and respiratory staff, he was awake and alert. Refused intubation and was agreeable to be put on bipap support. - Constitutional Vitals: Temp Pulse Resp BP Pulse Ox 98.1 F 105 18 105/60 94 09/10/16 07:27 09/10/16 07:27 09/10/16 07:27 09/10/16 07:27 09/10/16 07:27 General appearance: Present: A&O X 3 (initially patient was somnolent and barely arousable), morbidly obese, no acute distress - Head Head exam: Present: atraumatic, normocephalic - Eye Eye exam: Present: normal appearance, conjuntiva pink, sclera anicteric - Respiratory Respiratory exam: Present: decreased breath sounds - Cardiovascular Cardiovascular exam: Present: RRR, +S1, +S2 - GI/Abdominal GI/Abdominal exam: Present: normal bowel sounds, soft, no peritoneal signs. Absent: distended, tenderness - Extremities Exam Additional comments: b/l LE calciphylaxis - Neurological Exam Neurological exam: Present: alert Internal Medicine: Result - Labs CBC & Chem 7: 09/10/16 04:30 09/10/16 04:30 Labs: Short CBC 09/10/16 Range/Units 04:30 WBC 10.6 (4.3-11.1) K/mcL Hgb 12.6 L (12.9-16.9) g/dL Hct 41.7 (37.5-50.1) % Plt Count 111 L (140-400) K/mcL Neutrophils # 9.0 H (1.6-8.9) K/mcL BMP 09/10/16 04:30 Sodium 141 Potassium 5.5 H D Chloride 98 Carbon Dioxide 26 BUN 53 H Creatinine 8.97 H Glucose 122 H Calcium 8.6 - ABG Interpretation ABG results: ABG ABG pH 7.28 pH Units (7.32-7.45) L 09/08/16 04:42 ABG pCO2 65 mmHg (35-45) H 09/08/16 04:42 ABG pO2 81 mmHg (85-104) L 09/08/16 04:42 ABG O2 Saturation 94 % (95-98) L 09/08/16 04:42 PT/INR, D-dimer PT 15.9 Seconds (9.4-12.1) H 09/08/16 03:45 Consult Discharge Plan - Plan Referrals: Arthur Pozo MD [Primary Care Provider] -
[2016-09-10 11:30] LABS: ABG Base Excess 1.7 mEq/L (-2.0 to 3.0); ABG Oxygen Saturation 94 % (95-98); ABG PO2 84 mmHg (85-104); ABG TCO2 34.5 mEq/L (20-26)
[2016-09-10 11:31] LABS: Blood Gas FiO2 32 %
[2016-09-10 11:32] LABS: ABG PCO2 82 mmHg (35-45)
[2016-09-10 14:08] LABS: ABG Base Excess 1.7 mEq/L (-2.0 to 3.0); ABG HCO3 30.7 mEQ/L (21-27); ABG Oxygen Saturation 74 % (95-98); ABG PH 7.25 pH Units (7.32-7.45); ABG TCO2 32.8 mEq/L (20-26)
[2016-09-10 14:11] LABS: ABG PCO2 70 mmHg (35-45); ABG PO2 46 mmHg (85-104); Blood Gas FiO2 32 %
[2016-09-10 21:42] LABS: ABG Base Excess 0.6 mEq/L (-2.0 to 3.0); ABG HCO3 30.2 mEQ/L (21-27); ABG Oxygen Saturation 72 % (95-98); ABG PH 7.23 pH Units (7.32-7.45); ABG TCO2 32.4 mEq/L (20-26)
[2016-09-10 21:44] LABS: ABG PCO2 72 mmHg (35-45); ABG PO2 46 mmHg (85-104)
[2016-09-10 21:45] LABS: Blood Gas FiO2 40 %
[2016-09-10] MEDS ORDERED: traMADol 50 MG TABLET PO ONE (21:58)
[2016-09-11] MEDS ORDERED: *HR* OxyCODONE/APAP 5/325 TABLET PO ONE (00:27)
[2016-09-11 04:41] LABS: Hematocrit 38.4 % (37.5-50.1); Hemoglobin 11.8 g/dL (12.9-16.9); Mean Corpuscular HGB Conc 30.7 g/dL (31.6-35.5); Mean Corpuscular Hemoglobin 27.7 pg (28.0-33.3); Mean Corpuscular Volume 90.1 fL (83.0-100.0); Mean Platelet Volume 11.6 fL (9.4-12.4); Platelet Count 118 K/mcL (140-400); Red Blood Count 4.26 M/mcL (4.19-5.50); Red Cell Distribution Width 16.6 % (11.5-14.5)
[2016-09-11] MEDS: Ipratropium/Albuterol Neb 3 ML IH SCH ×5 (04:43→23:44)
[2016-09-11 04:56] LABS: Calcium 8.6 mg/dL (8.6-10.8); Magnesium 2.3 mg/dL (1.6-2.6); Phosphorous 9.1 mg/dL (2.3-4.7); Potassium 5.4 mEq/L (3.5-4.5)
[2016-09-11 05:00] LABS: Large Platelets Present (Not Present); Lymphocytes # 0.6 K/mcL (0.6-4.6); Monocytes # 1.4 K/mcL (0.0-1.3); Neutrophils # 7.8 K/mcL (1.6-8.9); Platelet Estimate Decreased (Normal)
[2016-09-11 05:01] LABS: Anisocytosis 1+ (Not Present); Basophilic Stippling 1+ (Not Present); Polychromasia 1+ (Not Present)
[2016-09-11] MEDS: Insulin LISPRO 300 UNITS/3 ML VIAL SQ SCH ×6 (06:01→21:45)
[2016-09-11] MEDS: *HR* Heparin 5,000 UNIT/ML VIAL SQ SCH ×3 (06:48→21:45)
[2016-09-11] MEDS: Renal Vitamin 1 MG CAPSULE PO SCH (08:06)
[2016-09-11] MEDS: Nicotine 21 MG PATCH.TD24 TD SCH (09:44)
[2016-09-11] MEDS: Ammonium Lactate 30 APPL/225 GM BOTTLE TP SCH ×2 (09:49→21:48)
[2016-09-11] MEDS: Insulin DETEMIR 100 UNIT/ML X5UNITS SQ SCH ×2 (09:50→21:45)
--- NOTE | 2016-09-11 09:50 | Nephrology Progress Note ---
Date of Encounter: 09/11/16 Time of Encounter: 09:30 - Assessment and Plan (1) End stage renal disease on dialysis Current Visit: Yes Status: Chronic Acute on chronic respiratory failure. ESRD. HD today, orders given. Keeping on MWF schedule. Subjective Principal diagnosis: acute on chronic respiratory failure with hypoxia and hypercapnea Interval history: Awake, oriented to person, place. Clear speech. Complaining of LE pain. Discussed fluid overload and coming off treatment early. Mother at bedside. Objective - Vital Signs Vital signs: Vital Signs Temp Pulse Resp BP Pulse Ox 09/11/16 06:29 97.1 F L 80 14 97/64 94 09/11/16 04:43 13 90 09/11/16 04:20 97.6 F 80 17 100/64 89 09/10/16 23:50 97.6 F 92 17 99/63 90 09/10/16 21:40 100/63 09/10/16 21:15 18 92 09/10/16 21:11 98.7 F 88 17 80/53 93 09/10/16 16:09 98.9 F 101 13 132/62 89 09/10/16 11:45 18 93 09/10/16 11:29 98.8 F 95 18 101/63 93 Intake and Output 09/10/16 09/11/16 09/11/16 23:59 07:59 15:59 Intake Total 240 / 240 0 / 0 Output Total 0 / 0 0 / 0 Balance 240 / 240 0 / 0 Intake: Oral 240 / 240 0 / 0 Output: Urine 0 / 0 0 / 0 Other: Weight 118.5 kg Blood Glucose* 96 96 Patient Weight 09/11/16 23:59 Weight 118.5 kg - General Appearance General appearance: Present: well-developed, well-nourished, appears started age , obese EENT: Present: mucous membranes moist Neck: Present: no JVD Respiratory: Present: clear Cardiology: Present: edema, regular rate, regular rhythm Additional Comments: mild pitting Gastrointestinal: Present: normoactive bowel sounds, no tenderness Integumentary: Present: warm and dry Neurologic: Present: alert and oriented x3 Psychiatric: Present: mood/affect appropriate, cooperative - Lab 09/11/16 04:30 09/11/16 04:30 Most recent lab results ABG pH 7.23 pH Units (7.32-7.45) L 09/10/16 21:34 ABG pCO2 72 mmHg (35-45) H* 09/10/16 21:34 ABG pO2 46 mmHg (85-104) L* 09/10/16 21:34 ABG HCO3 30.2 mEQ/L (21-27) H 09/10/16 21:34 ABG O2 Saturation 72 % (95-98) L 09/10/16 21:34 Calcium 8.6 mg/dL (8.6-10.8) 09/11/16 04:30 Phosphorus 9.1 mg/dL (2.3-4.7) H 09/11/16 04:30 Magnesium 2.3 mg/dL (1.6-2.6) 09/11/16 04:30 Consult Discharge Plan - Plan Referrals: Arthur Pozo MD [Primary Care Provider] -
[2016-09-11 11:23] LABS: ABG Base Excess -1.4 mEq/L (-2.0 to 3.0); ABG HCO3 28.7 mEQ/L (21-27); ABG Oxygen Saturation 96 % (95-98); ABG PO2 98 mmHg (85-104); ABG TCO2 31.1 mEq/L (20-26)
[2016-09-11] MEDS ORDERED: 0.9 % Sodium Chloride 250 ML IVC PRN (11:23)
[2016-09-11 11:30] LABS: ABG PCO2 77 mmHg (35-45); ABG PH 7.18 pH Units (7.32-7.45); Blood Gas FiO2 32 %
[2016-09-11] MEDS ORDERED: 0.9 % Sodium Chloride 1,000 ML PRIME SCH (11:30)
[2016-09-11] MEDS: Pregabalin 50 MG CAPSULE PO SCH ×3 (12:43→18:34)
--- NOTE | 2016-09-11 15:07 | Internal Med Progress Note ---
Date of Encounter: 09/11/16 Time of Encounter: 15:05 - Assessment and plan (1) Acute on chronic respiratory failure with hypoxia and hypercapnia Current Visit: Yes Status: Acute Assessment and plan: Secondary to chronic COPD and acute CHF decompensation secondary to med noncompliance Also has history of ZAINAB and non compliant with bipap support Continues to refuse bipap worsening of respiratory acidosis noted to ABG patient remains at high risk for intubation continue to monitor O2 sat O2 supplementation O2 sat goal: 89-92% ABG as needed continue bronchodilator support SCRAP BREAKER as per nephro for fluid removal (2) Anemia Current Visit: No Status: Chronic Assessment and plan: H&H low but acceptable will continue to monitor Qualifiers: Anemia type: other cause Other causes of anemia: chronic disease, kidney Qualified Code(s): N18.9 - Chronic kidney disease, unspecified; D63.1 - Anemia in chronic kidney disease (3) CHF (congestive heart failure) Current Visit: No Status: Chronic Assessment and plan: Severe CHF with LVEF of 20% medical noncompliance reported Will continue BB, Imdur as per old home meds/records, as per pharmacogeneticist verification, patient has not filled any medications since March Volume removed by SCRAP BREAKER (HD today) Qualifiers: Congestive heart failure type: combined Congestive heart failure chronicity : chronic Qualified Code(s): I50.42 - Chronic combined systolic (congestive) and diastolic (congestive) heart failure (4) COPD exacerbation Current Visit: No Status: Acute Assessment and plan: plan as listed above (5) Diabetes mellitus Current Visit: Yes Status: Chronic Assessment and plan: BG within acceptable range continue to monitor FS and BG continue ss insulin continue Levemir Qualifiers: Diabetes mellitus type: type 2 Diabetes mellitus complication status: with kidney complications Diabetes mellitus complication detail: with chronic kidney disease 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 insulin use: unspecified jail insulin use status Chronic kidney disease stage: on chronic dialysis Qualified Code(s): E11.22 - Type 2 diabetes mellitus with diabetic chronic kidney disease; N18.6 - End stage renal disease (6) DVT prophylaxis Current Visit: No Status: Acute Assessment and plan: Heparin SQ (7) End stage renal disease on dialysis Current Visit: Yes Status: Chronic Assessment and plan: Nephrology input appreciated continue SCRAP BREAKER as per nephrology (8) Obesity (BMI 30-39.9) Current Visit: Yes Status: Chronic (9) Tobacco abuse Current Visit: No Status: Chronic Assessment and plan: nicotine patch PRN - Subjective Interval history: Patient seen and examined in hemodialysis. Resting in bed, oriented to person and place. continues to refuse bipap support, noted to have worsening respiratory acidosis on ABG. Pt hostile towards the staff and is not willing to wear bipap. Patient at high risk of intubation given current respiratory status. - Constitutional Vitals: Temp Pulse Resp BP Pulse Ox 97.5 F L 84 16 98/67 93 09/11/16 10:26 09/11/16 10:26 09/11/16 11:35 09/11/16 10:09/11/16 11:35 General appearance: Present: A&O X 2, morbidly obese, no acute distress. Absent : cooperative - Head Head exam: Present: atraumatic, normocephalic - Eye Eye exam: Present: conjunctival injection, normal appearance, sclera anicteric - Respiratory Respiratory exam: Present: decreased breath sounds. Absent: wheezes - Cardiovascular Cardiovascular exam: Present: RRR, +S1, +S2. Absent: diastolic murmur, gallop, rubs, systolic murmur - GI/Abdominal GI/Abdominal exam: Present: distended (obese), normal bowel sounds. Absent: tenderness - Extremities Exam Extremities exam: Present: pedal edema, warm, radial pulses palpable and symetrical. Absent: calf tenderness (b/l LE calciphylaxis) - Neurological Exam Neurological exam: Present: alert (somnolent but arousable) Internal Medicine: Result - Labs CBC & Chem 7: 09/11/16 04:30 09/11/16 04:30 Labs: Short CBC 09/11/16 Range/Units 04:30 WBC 10.0 (4.3-11.1) K/mcL Hgb 11.8 L (12.9-16.9) g/dL Hct 38.4 (37.5-50.1) % Plt Count 118 L (140-400) K/mcL Neutrophils # 7.8 (1.6-8.9) K/mcL BMP 09/11/16 04:30 Sodium 141 Potassium 5.4 H Chloride 98 Carbon Dioxide 28 BUN 75 H D Creatinine 10.99 H Glucose 56 L Calcium 8.6 - ABG Interpretation ABG results: ABG ABG pH 7.18 pH Units (7.32-7.45) L* 09/11/16 11:14 ABG pCO2 77 mmHg (35-45) H* 09/11/16 11:14 ABG pO2 98 mmHg (85-104) 09/11/16 11:14 ABG O2 Saturation 96 % (95-98) 09/11/16 11:14 PT/INR, D-dimer PT 15.9 Seconds (9.4-12.1) H 09/08/16 03:45 Consult Discharge Plan - Plan Referrals: Arthur Pozo MD [Primary Care Provider] -
[2016-09-11] MEDS: Tetrahydrozoline 15 ML BOTTLE RIGHT EYE PRN (17:49)
[2016-09-11] MEDS: Tetrahydrozoline 15 ML BOTTLE LEFT EYE PRN (17:49)
[2016-09-12 04:58] LABS: Basophils % 0.3 %; Eosinophils # 0.1 K/mcL (0.0-0.6); Hematocrit 41.6 % (37.5-50.1); Hemoglobin 12.2 g/dL (12.9-16.9); Immature Granulocytes % 0.5 % (0-4); Lymphocytes # 0.9 K/mcL (0.6-4.6); Mean Corpuscular HGB Conc 29.3 g/dL (31.6-35.5); Mean Corpuscular Hemoglobin 26.2 pg (28.0-33.3); Mean Corpuscular Volume 89.3 fL (83.0-100.0); Mean Platelet Volume 11.3 fL (9.4-12.4); Monocytes % 12.9 %; Neutrophils # 5.7 K/mcL (1.6-8.9); Platelet Count 123 K/mcL (140-400); Red Blood Count 4.66 M/mcL (4.19-5.50); Red Cell Distribution Width 16.1 % (11.5-14.5); Segmented Neutrophils % 73.3 %
[2016-09-12 05:15] LABS: Calcium 8.4 mg/dL (8.6-10.8); Magnesium 2.2 mg/dL (1.6-2.6); Phosphorous 8.1 mg/dL (2.3-4.7); Potassium 5.1 mEq/L (3.5-4.5)
[2016-09-12] MEDS: Ipratropium/Albuterol Neb 3 ML IH SCH ×4 (05:50→23:44)
[2016-09-12] MEDS: *HR* Heparin 5,000 UNIT/ML VIAL SQ SCH ×3 (05:52→20:49)
[2016-09-12] MEDS: Insulin LISPRO 300 UNITS/3 ML VIAL SQ SCH ×4 (07:26→20:48)
[2016-09-12] MEDS: Nicotine 21 MG PATCH.TD24 TD SCH (08:23)
[2016-09-12] MEDS: Pregabalin 50 MG CAPSULE PO SCH (08:23)
[2016-09-12] MEDS: Renal Vitamin 1 MG CAPSULE PO SCH (08:23)
[2016-09-12] MEDS: Insulin DETEMIR 100 UNIT/ML X5UNITS SQ SCH ×2 (08:24→20:49)
[2016-09-12] MEDS: Ammonium Lactate 30 APPL/225 GM BOTTLE TP SCH ×2 (08:24→20:53)
[2016-09-12 08:25] LABS: ABG Base Excess 1.6 mEq/L (-2.0 to 3.0); ABG HCO3 30.9 mEQ/L (21-27); ABG Oxygen Saturation 80 % (95-98); ABG PH 7.24 pH Units (7.32-7.45); ABG PO2 53 mmHg (85-104); ABG TCO2 33.1 mEq/L (20-26)
[2016-09-12 08:26] LABS: ABG PCO2 72 mmHg (35-45)
[2016-09-12 08:27] LABS: Blood Gas FiO2 44 %; Blood Gas Liter Flow 6 L/MIN
--- NOTE | 2016-09-12 11:38 | Nephrology Progress Note ---
Date of Encounter: 09/12/16 Time of Encounter: 11:35 - Assessment and Plan (1) End stage renal disease on dialysis Current Visit: Yes Status: Chronic 1. ESRD pt dialysed yesterday. will keep MWF schedule 2. HTN. Denies dizziness. Monitor BP today, plan to decrease the dose of carvedilol if BP remains low. 3. Mild hyperkalemia, cont renal diet. Hyperphosphatemia, add calcium actetate. meds reviewed, cymbalta is not really recommed for pts on dialysis, will decrease the dose to 20 mg a day, suggest to discontinue in the next few days Subjective Principal diagnosis: acute on chronic respiratory failure with hypoxia and hypercapnea Interval history: f/u for ESRD. Was dialysed yesterday. Thew up yesterday. denies nausea this morning, feels hungry, wants to eat Afebrile, BP borderline low with systolic in 100s. On 5 L nasal cannula. pt admitted with acute on chronic respiratory failure with hypoxia and hypercarbia secondary to COPD, acute decompensated CHF. has underlying sleep apnea noncompliant with BiPAP Objective - Vital Signs Vital signs: Vital Signs Temp Pulse Resp BP Pulse Ox 09/12/16 07:05 97.5 F L 87 18 100/66 96 09/12/16 06:00 18 100 09/12/16 04:38 97.7 F 88 22 102/68 99 09/11/16 23:50 97.8 F 86 18 131/78 98 09/11/16 23:45 95 09/11/16 23:43 97.7 F 54 18 145/66 92 09/11/16 19:55 98.0 F 88 22 93/58 98 09/11/16 17:41 97.9 F 22 134/56 09/11/16 17:00 124/56 09/11/16 16:45 132/59 09/11/16 16:30 124/64 09/11/16 16:15 130/56 09/11/16 16:00 140/67 09/11/16 15:50 97.7 F 85 14 120/53 91 09/11/16 15:45 120/71 09/11/16 15:30 115/54 09/11/16 15:15 108/66 09/11/16 15:00 102/44 09/11/16 14:45 110/50 09/11/16 14:30 102/44 09/11/16 14:15 112/50 09/11/16 14:00 101/50 09/11/16 13:45 111/52 09/11/16 13:30 107/60 09/11/16 13:15 94/55 09/11/16 13:00 97.9 F 22 95/52 Intake and Output 09/11/16 09/12/16 09/12/16 23:59 07:59 15:59 Intake Total 0 / 0 0 / 0 240 / 240 Output Total 3600 / 3600 Balance -3600 / -3600 0 / 0 240 / 240 Intake: Oral 0 / 0 0 / 0 240 / 240 Output: Urine 0 / 0 Total Dialysis Output 3600 / 3600 Other: Meal Breakfast Percent of Meal Consumed 85% Blood Glucose* 254 134 Hemodialysis Net Fluid 3000 Removed (mL) - General Appearance Exam: CVS; s1s2 present, regular, no murmurs RESP; good air entry, clear to auscultation ABD; soft, NT, BS present, no organomegaly, no bruits EXT; trace edema, 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
[2016-09-12] MEDS: Tetrahydrozoline 15 ML BOTTLE LEFT EYE PRN (12:06)
[2016-09-12] MEDS: Tetrahydrozoline 15 ML BOTTLE RIGHT EYE PRN (12:06)
[2016-09-12] MEDS: Calcium Acetate 667 MG CAPSULE PO SCH ×2 (12:06→17:47)
--- NOTE | 2016-09-12 14:07 | Internal Med Progress Note ---
Date of Encounter: 09/12/16 Time of Encounter: 12:15 (.) - Assessment and plan (1) Acute on chronic respiratory failure with hypoxia and hypercapnia Current Visit: Yes Status: Acute Assessment and plan: Secondary to chronic COPD and acute CHF decompensation secondary to med noncompliance Also has history of ZAINAB and non compliant with bipap support Continues to refuse bipap but in agreement to wear it intermittently today ABG report noted patient remains at high risk for intubation continue to monitor O2 sat O2 supplementation O2 sat goal: 89-92% ABG as needed continue bronchodilator support 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 as per nephro for fluid removal (2) Anemia Current Visit: No Status: Chronic Assessment and plan: H&H low but acceptable will continue to monitor Qualifiers: Anemia type: other cause Other causes of anemia: chronic disease, kidney Qualified Code(s): N18.9 - Chronic kidney disease, unspecified; D63.1 - Anemia in chronic kidney disease (3) CHF (congestive heart failure) Current Visit: No Status: Chronic Assessment and plan: Severe CHF with LVEF of 20% medical noncompliance reported Will continue BB, Imdur as per old home meds/records, as per pharmacy billing adjudicator verification, patient has not filled any medications since March Volume removed by 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 (HD-MWF) Qualifiers: Congestive heart failure type: combined Congestive heart failure chronicity : chronic Qualified Code(s): I50.42 - Chronic combined systolic (congestive) and diastolic (congestive) heart failure (4) COPD exacerbation Current Visit: No Status: Acute Assessment and plan: plan as listed above (5) Diabetes mellitus Current Visit: Yes Status: Chronic Assessment and plan: BG within acceptable range continue to monitor FS and BG continue ss insulin continue Levemir Qualifiers: Diabetes mellitus type: type 2 Diabetes mellitus complication status: with kidney complications Diabetes mellitus complication detail: with chronic kidney disease Diabetes mellitus correction insulin use: unspecified correction insulin use status Chronic kidney disease stage: on chronic dialysis Qualified Code(s): E11.22 - Type 2 diabetes mellitus with diabetic chronic kidney disease; N18.6 - End stage renal disease (6) DVT prophylaxis Current Visit: No Status: Acute Assessment and plan: Heparin SQ (7) End stage renal disease on dialysis Current Visit: Yes Status: Chronic Assessment and plan: Nephrology input appreciated continue 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 as per nephrology (8) Obesity (BMI 30-39.9) Current Visit: Yes Status: Chronic (9) Tobacco abuse Current Visit: No Status: Chronic Assessment and plan: nicotine patch PRN - Subjective Interval history: Patient seen and examined. Resting in chair and reports of feeling better. Agreeing to wear bipap intermittently at this time. No overnight issues reported. - Constitutional Vitals: Temp Pulse Resp BP Pulse Ox 97.5 F L 86 18 110/63 95 09/12/16 12:00 09/12/16 12:00 09/12/16 12:00 09/12/16 12:00 09/12/16 12:00 General appearance: Present: A&O X 3, morbidly obese, no acute distress. Absent : cooperative - Head Head exam: Present: atraumatic, normocephalic - Eye Eye exam: Present: conjunctival injection, EOMI, PERRL - Respiratory Respiratory exam: Absent: wheezes Additional comments: bibasilar crackles - Cardiovascular Cardiovascular exam: Present: RRR, +S1, +S2. Absent: diastolic murmur, gallop, rubs, systolic murmur - GI/Abdominal GI/Abdominal exam: Present: distended (obese), normal bowel sounds, soft, no peritoneal signs. Absent: tenderness - Extremities Exam Extremities exam: Present: pedal edema, warm, radial pulses palpable and symetrical (bilateral LE calciphylaxis ). Absent: calf tenderness - Neurological Exam Neurological exam: Present: alert, oriented X3 - Psychiatric Psychiatric exam: Present: normal affect, normal mood Internal Medicine: Result - Labs CBC & Chem 7: 09/12/16 03:49 09/12/16 03:49 Labs: Short CBC 09/12/16 Range/Units 03:49 WBC 7.8 (4.3-11.1) K/mcL Hgb 12.2 L (12.9-16.9) g/dL Hct 41.6 (37.5-50.1) % Plt Count 123 L (140-400) K/mcL Neutrophils # 5.7 (1.6-8.9) K/mcL BMP 09/12/16 03:49 Sodium 141 Potassium 5.1 H Chloride 97 L Carbon Dioxide 30 H BUN 58 H Creatinine 9.75 H Glucose 45 L Calcium 8.4 L - ABG Interpretation ABG results: ABG ABG pH 7.24 pH Units (7.32-7.45) L 09/12/16 08:17 ABG pCO2 72 mmHg (35-45) H* 09/12/16 08:17 ABG pO2 53 mmHg (85-104) L 09/12/16 08:17 ABG O2 Saturation 80 % (95-98) L 09/12/16 08:17 PT/INR, D-dimer PT 15.9 Seconds (9.4-12.1) H 09/08/16 03:45 Consult Discharge Plan - Plan Referrals: Arthur Pozo MD [Primary Care Provider] -
[2016-09-12] MEDS ORDERED: *HR* OxyCODONE/APAP 5/325 TABLET PO ONE (15:31)
[2016-09-13] MEDS: Ipratropium/Albuterol Neb 3 ML IH SCH ×4 (04:35→23:04)
[2016-09-13] MEDS: *HR* Heparin 5,000 UNIT/ML VIAL SQ SCH ×3 (05:50→21:43)
[2016-09-13 06:10] LABS: Hematocrit 40.7 % (37.5-50.1); Hemoglobin 12.4 g/dL (12.9-16.9); Immature Granulocytes % 0.9 % (0-4); Lymphocytes % 12.9 %; Mean Corpuscular HGB Conc 30.5 g/dL (31.6-35.5); Mean Corpuscular Hemoglobin 26.9 pg (28.0-33.3); Mean Corpuscular Volume 88.3 fL (83.0-100.0); Mean Platelet Volume 11.5 fL (9.4-12.4); Platelet Count 131 K/mcL (140-400); Red Blood Count 4.61 M/mcL (4.19-5.50); Red Cell Distribution Width 15.9 % (11.5-14.5); Segmented Neutrophils % 70.5 %
[2016-09-13 06:11] LABS: Basophils % 0.3 %; Eosinophils # 0.1 K/mcL (0.0-0.6); Lymphocytes # 0.9 K/mcL (0.6-4.6); Monocytes # 0.9 K/mcL (0.0-1.3); Monocytes % 13.4 %; Neutrophils # 4.7 K/mcL (1.6-8.9)
[2016-09-13 06:24] LABS: Albumin 2.6 g/dL (3.5-5.0); Calcium 8.1 mg/dL (8.6-10.8); Magnesium 2.3 mg/dL (1.6-2.6); Phosphorous 8.9 mg/dL (2.3-4.7); Potassium 5.8 mEq/L (3.5-4.5)
[2016-09-13] MEDS: Insulin LISPRO 300 UNITS/3 ML VIAL SQ SCH ×4 (07:41→21:42)
[2016-09-13] MEDS: Nicotine 21 MG PATCH.TD24 TD SCH (07:59)
[2016-09-13] MEDS: Calcium Acetate 667 MG CAPSULE PO SCH ×3 (07:59→17:33)
[2016-09-13] MEDS: Pregabalin 50 MG CAPSULE PO SCH (08:00)
[2016-09-13] MEDS: Renal Vitamin 1 MG CAPSULE PO SCH (08:00)
[2016-09-13] MEDS: Ammonium Lactate 30 APPL/225 GM BOTTLE TP SCH ×2 (08:04→21:44)
[2016-09-13] MEDS: Insulin DETEMIR 100 UNIT/ML X5UNITS SQ SCH ×2 (08:05→21:43)
[2016-09-13 10:40] LABS: ABG Base Excess -0.5 mEq/L (-2.0 to 3.0); ABG HCO3 30.7 mEQ/L (21-27); ABG Oxygen Saturation 94 % (95-98); ABG PO2 91 mmHg (85-104); ABG TCO2 33.3 mEq/L (20-26)
[2016-09-13 10:43] LABS: ABG PCO2 86 mmHg (35-45); ABG PH 7.16 pH Units (7.32-7.45); Blood Gas FiO2 34 %
--- NOTE | 2016-09-13 12:08 | Nephrology Progress Note ---
Date of Encounter: 09/13/16 Time of Encounter: 12:01 - Assessment and Plan (1) End stage renal disease on dialysis Current Visit: Yes Status: Chronic 1. ESRD. Serum potassium is trending up. Couple of doses of Kayexalate today. Plan for dialysis in a.m. 2. HTN. BP is borderline low, decrease the dose of carvedilol 3. Hyperphosphatemia, calcium actetate was started yesterday 4. COPD and underlying Sleep apnea, chronic respiratory failure with hypercarbia and hypoxia. wearing BiPAP intermittently. Continues to have significant respiratory acidosis Subjective Principal diagnosis: acute on chronic respiratory failure with hypoxia and hypercapnea Interval history: Not very compliant with BiPAP. Eating lunch. Denies shortness of breath or dizziness Objective - Vital Signs Vital signs: Vital Signs Temp Pulse Resp BP Pulse Ox 09/13/16 08:18 97.4 F L 84 18 96/60 96 09/13/16 03:25 97.1 F L 79 22 104/69 95 09/12/16 23:43 97.5 F L 80 18 94/49 98 09/12/16 20:18 96.7 F L 80 18 113/73 96 09/12/16 16:10 97.2 F L 81 16 108/71 98 Intake and Output 09/12/16 09/13/16 09/13/16 23:59 07:59 15:59 Intake Total 0 / 0 0 / 0 Output Total 0 / 0 Balance 0 / 0 0 / 0 Intake: Oral 0 / 0 0 / 0 Output: Urine 0 / 0 Other: Weight 120.2 kg Blood Glucose* 368 102 117 Patient Weight 09/13/16 23:59 Weight 120.2 kg - General Appearance Exam: CVS; s1s2 present, regular, no murmurs RESP; good air entry, clear to auscultation ABD; soft, NT, BS present EXT; trace edema. 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
--- NOTE | 2016-09-13 12:47 | Internal Med Progress Note ---
Date of Encounter: 09/13/16 Time of Encounter: 10:15 - Assessment and plan (1) Acute on chronic respiratory failure with hypoxia and hypercapnia Current Visit: Yes Status: Acute Assessment and plan: Secondary to chronic COPD and acute CHF decompensation secondary to med noncompliance Also has history of ZAINAB and non compliant with bipap support Continues to refuse bipap support; ABG report noted, patient in agreement to wearing bipap at this time, will closely monitor. Remains high risk for intubation. patient remains at high risk for intubation continue to monitor O2 sat O2 supplementation O2 sat goal: 89-92% ABG as needed continue bronchodilator support ORAL AND MAXILLOFACIAL PATHOLOGIST as per nephro for fluid removal (2) Anemia Current Visit: No Status: Chronic Assessment and plan: H&H low but acceptable will continue to monitor Qualifiers: Anemia type: other cause Other causes of anemia: chronic disease, kidney Qualified Code(s): N18.9 - Chronic kidney disease, unspecified; D63.1 - Anemia in chronic kidney disease (3) CHF (congestive heart failure) Current Visit: No Status: Chronic Assessment and plan: Severe CHF with LVEF of 20% medical noncompliance reported Will continue BB, Imdur as per old home meds/records, as per pharmacy technologist verification, patient has not filled any medications since March Volume removed by ORAL AND MAXILLOFACIAL PATHOLOGIST (HD-MWF) Qualifiers: Congestive heart failure type: combined Congestive heart failure chronicity : chronic Qualified Code(s): I50.42 - Chronic combined systolic (congestive) and diastolic (congestive) heart failure (4) COPD exacerbation Current Visit: No Status: Acute Assessment and plan: plan as listed above (5) Diabetes mellitus Current Visit: Yes Status: Chronic Assessment and plan: BG within acceptable range continue to monitor FS and BG continue ss insulin continue Levemir Qualifiers: Diabetes mellitus type: type 2 Diabetes mellitus complication status: with kidney complications Diabetes mellitus complication detail: with chronic kidney disease 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: 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 manager terminal insulin use status Chronic kidney disease stage: on chronic dialysis Qualified Code(s): E11.22 - Type 2 diabetes mellitus with diabetic chronic kidney disease; N18.6 - End stage renal disease (6) DVT prophylaxis Current Visit: No Status: Acute Assessment and plan: Heparin SQ (7) End stage renal disease on dialysis Current Visit: Yes Status: Chronic Assessment and plan: Nephrology input appreciated continue ORAL AND MAXILLOFACIAL PATHOLOGIST as per nephrology (8) Obesity (BMI 30-39.9) Current Visit: Yes Status: Chronic (9) Tobacco abuse Current Visit: No Status: Chronic Assessment and plan: nicotine patch PRN - Subjective Interval history: Patient seen and examined. Resting in bed and noted to be hostile towards the respiratory therapist, continuing to refuse ABG and bipap support. RT finally got an aBG as patient was unarousable and finally woke up as she was finishing up drawing the ABG. He got angry towards the staff for not asking his permission to get the blood, however he was not arousable at that time. His ABG shows worsening respiratory acidosis and he is AAOx 3. I had a detailed discussion with the patient and reinforced the need for bipap support. He is willing to comply at this time, however this is the same pattern daily and patient remains a high risk of intubation. - Constitutional Vitals: Temp Pulse Resp BP Pulse Ox 97.4 F L 84 18 96/60 96 09/13/16 08:18 09/13/16 08:18 09/13/16 08:18 09/13/16 08:18 09/13/16 08:18 General appearance: Present: A&O X 3, morbidly obese, no acute distress. Absent : cooperative - Head Head exam: Present: atraumatic, normocephalic - Eye Eye exam: Present: normal appearance, conjuntiva pink, sclera anicteric - Respiratory Respiratory exam: Present: decreased breath sounds. Absent: respiratory distress, wheezes - Cardiovascular Cardiovascular exam: Present: RRR, +S1, +S2. Absent: diastolic murmur, gallop, rubs, systolic murmur - GI/Abdominal GI/Abdominal exam: Present: normal bowel sounds, soft, no peritoneal signs. Absent: distended, tenderness - Extremities Exam Extremities exam: Present: pedal edema, warm, radial pulses palpable and symetrical. Absent: calf tenderness Additional comments: b/l calciphylaxis - Neurological Exam Neurological exam: Present: alert, oriented X3 Internal Medicine: Result - Labs CBC & Chem 7: 09/13/16 05:40 09/13/16 05:40 Labs: Short CBC 09/13/16 Range/Units 05:40 WBC 6.7 (4.3-11.1) K/mcL Hgb 12.4 L (12.9-16.9) g/dL Hct 40.7 (37.5-50.1) % Plt Count 131 L (140-400) K/mcL Neutrophils # 4.7 (1.6-8.9) K/mcL BMP 09/13/16 05:40 Sodium 138 Potassium 5.8 H Chloride 98 Carbon Dioxide 26 BUN 78 H D Creatinine 11.18 H Glucose 103 H Calcium 8.1 L Liver Function 09/13/16 Range/Units 05:40 Albumin 2.6 L (3.5-5.0) g/dL - ABG Interpretation ABG results: ABG ABG pH 7.16 pH Units (7.32-7.45) L* 09/13/16 10:30 ABG pCO2 86 mmHg (35-45) H* 09/13/16 10:30 ABG pO2 91 mmHg (85-104) 09/13/16 10:30 ABG O2 Saturation 94 % (95-98) L 09/13/16 10:30 PT/INR, D-dimer PT 15.9 Seconds (9.4-12.1) H 09/08/16 03:45 Consult Discharge Plan - Plan Referrals: Arthur Pozo MD [Primary Care Provider] -
[2016-09-13] MEDS: Tetrahydrozoline 15 ML BOTTLE LEFT EYE PRN (17:35)
[2016-09-13] MEDS: Tetrahydrozoline 15 ML BOTTLE RIGHT EYE PRN (17:35)
[2016-09-13] MEDS ORDERED: *HR* OxyCODONE/APAP 5/325 TABLET PO ONE (21:58)
[2016-09-14] MEDS: Ipratropium/Albuterol Neb 3 ML IH SCH ×4 (03:41→23:36)
[2016-09-14 05:00] LABS: Basophils % 0.3 %; Eosinophils # 0.2 K/mcL (0.0-0.6); Eosinophils % 2.7 %; Hematocrit 37.4 % (37.5-50.1); Hemoglobin 11.6 g/dL (12.9-16.9); Immature Granulocytes % 0.7 % (0-4); Lymphocytes # 0.8 K/mcL (0.6-4.6); Lymphocytes % 11.5 %; Mean Corpuscular Hemoglobin 27.1 pg (28.0-33.3); Mean Corpuscular Volume 87.4 fL (83.0-100.0); Mean Platelet Volume 11.3 fL (9.4-12.4); Monocytes # 0.7 K/mcL (0.0-1.3); Monocytes % 10.3 %; Neutrophils # 5.3 K/mcL (1.6-8.9); Platelet Count 141 K/mcL (140-400); Red Blood Count 4.28 M/mcL (4.19-5.50); Red Cell Distribution Width 15.9 % (11.5-14.5); Segmented Neutrophils % 74.5 %
[2016-09-14 05:26] LABS: Albumin 2.6 g/dL (3.5-5.0); Calcium 7.9 mg/dL (8.6-10.8); Phosphorous 8.7 mg/dL (2.3-4.7)
[2016-09-14 05:28] LABS: Potassium 4.5 mEq/L (3.5-4.5)
[2016-09-14] MEDS: *HR* Heparin 5,000 UNIT/ML VIAL SQ SCH ×3 (05:42→20:50)
[2016-09-14] MEDS: Insulin LISPRO 300 UNITS/3 ML VIAL SQ SCH ×4 (08:10→20:51)
[2016-09-14] MEDS: Renal Vitamin 1 MG CAPSULE PO SCH (08:14)
[2016-09-14] MEDS: Calcium Acetate 667 MG CAPSULE PO SCH ×3 (08:15→17:23)
[2016-09-14] MEDS: Nicotine 21 MG PATCH.TD24 TD SCH (08:15)
[2016-09-14] MEDS: Pregabalin 50 MG CAPSULE PO SCH (08:15)
[2016-09-14] MEDS ORDERED: 0.9 % Sodium Chloride 250 ML IVC PRN (08:48)
--- NOTE | 2016-09-14 08:48 | Nephrology Progress Note ---
Date of Encounter: 09/14/16 Time of Encounter: 08:46 - Assessment and Plan (1) End stage renal disease on dialysis Current Visit: Yes Status: Chronic The patient will undergo dialysis today. Orders have been submitted. Following removal as tolerated. His blood pressure is more stable than it was last week. I had a long discussion with the patient regarding the importance of continuing to use his BiPAP once he is discharged home. (2) Fluid overload Current Visit: Yes Status: Acute Qualifiers: Hypervolemia type: unspecified Qualified Code(s): E87.70 - Fluid overload, unspecified (3) Nonischemic cardiomyopathy Current Visit: No Status: Chronic (4) Respiratory acidosis Current Visit: No Status: Acute (5) ZAINAB (obstructive sleep apnea) Current Visit: Yes Status: Chronic Subjective Principal diagnosis: acute on chronic respiratory failure with hypoxia and hypercapnea Interval history: The patient reports she feels better. He did use his BiPAP last night. He does report he had not been using his BiPAP at home prior to hospital admission. He is scheduled for dialysis today. Objective - Vital Signs Vital signs: Vital Signs Temp Pulse Resp BP Pulse Ox 09/14/16 07:49 97.8 F 92 14 107/72 93 09/14/16 03:42 97.6 F 103 20 133/85 93 09/14/16 03:41 27 94 09/13/16 23:30 97.6 F 101 41 126/79 91 09/13/16 20:07 97.7 F 92 18 132/89 97 09/13/16 17:55 84 18 126/88 09/13/16 10:59 20 96 Intake and Output 09/13/16 09/14/16 09/14/16 23:59 07:59 15:59 Intake Total 0 / 0 0 / 0 Output Total 0 / 0 Balance 0 / 0 0 / 0 Intake: Oral 0 / 0 0 / 0 Output: Urine 0 / 0 Other: Weight 122.1 kg Blood Glucose* 142 121 Patient Weight 09/14/16 23:59 Weight 122.1 kg - General Appearance Exam: Patient is alert and oriented. He is in no acute distress. Lungs symmetric breath sounds. Heart regular rate and rhythm. Abdomen is obese. There is no tenderness guarding or rigidity. He has 2+ lower extremity swelling. He has a functioning AV fistula in the left arm. - Lab 09/14/16 04:44 05/08/17 04:44 Most recent lab results ABG pH 7.16 pH Units (7.32-7.45) L* 09/13/16 10:30 ABG pCO2 86 mmHg (35-45) H* 09/13/16 10:30 ABG pO2 91 mmHg (85-104) 09/13/16 10:30 ABG HCO3 30.7 mEQ/L (21-27) H 09/13/16 10:30 ABG O2 Saturation 94 % (95-98) L 09/13/16 10:30 Calcium 7.9 mg/dL (8.6-10.8) L 09/14/16 04:44 Phosphorus 8.7 mg/dL (2.3-4.7) H 09/14/16 04:44 Magnesium 2.1 mg/dL (1.6-2.6) 09/14/16 04:44 Consult Discharge Plan - Plan Referrals: Arthur Pozo MD [Primary Care Provider] - 09/22/16 9:45 am (Please follow up as schedule...)
[2016-09-14] MEDS: Insulin DETEMIR 100 UNIT/ML X5UNITS SQ SCH ×2 (09:01→20:49)
[2016-09-14] MEDS: Ammonium Lactate 30 APPL/225 GM BOTTLE TP SCH ×2 (12:02→21:03)
--- NOTE | 2016-09-14 14:38 | Internal Med Progress Note ---
Date of Encounter: 09/14/16 Time of Encounter: 14:36 - Assessment and plan (1) Acute on chronic respiratory failure with hypoxia and hypercapnia Current Visit: Yes Status: Acute Assessment and plan: Secondary to chronic COPD and acute CHF decompensation secondary to med noncompliance Also has history of ZAINAB and non compliant with bipap support Reported to wear bipap overnight continue bipap support repeat ABG once patient allows patient remains at high risk for intubation continue to monitor O2 sat O2 supplementation O2 sat goal: 89-92% continue bronchodilator support CAN FILLING MACHINE OPERATOR as per nephro for fluid removal (2) Anemia Current Visit: No Status: Chronic Assessment and plan: H&H low but acceptable will continue to monitor Qualifiers: Anemia type: other cause Other causes of anemia: chronic disease, kidney Qualified Code(s): N18.9 - Chronic kidney disease, unspecified; D63.1 - Anemia in chronic kidney disease (3) CHF (congestive heart failure) Current Visit: No Status: Chronic Assessment and plan: Severe CHF with LVEF of 20% medical noncompliance reported Will continue BB, Imdur as per old home meds/records, as per pharmacovigilance specialist verification, patient has not filled any medications since March Volume removed by CAN FILLING MACHINE OPERATOR (HD-MWF) Qualifiers: Congestive heart failure type: combined Congestive heart failure chronicity : chronic Qualified Code(s): I50.42 - Chronic combined systolic (congestive) and diastolic (congestive) heart failure (4) COPD exacerbation Current Visit: No Status: Acute Assessment and plan: plan as listed above (5) Diabetes mellitus Current Visit: Yes Status: Chronic Assessment and plan: BG within acceptable range continue to monitor FS and BG continue ss insulin continue Levemir Qualifiers: Diabetes mellitus type: type 2 Diabetes mellitus complication status: with kidney complications Diabetes mellitus complication detail: with chronic kidney disease Diabetes mellitus correction insulin use: unspecified correction insulin use status Chronic kidney disease stage: on chronic dialysis Qualified Code(s): E11.22 - Type 2 diabetes mellitus with diabetic chronic kidney disease; N18.6 - End stage renal disease (6) DVT prophylaxis Current Visit: No Status: Acute Assessment and plan: Heparin SQ (7) End stage renal disease on dialysis Current Visit: Yes Status: Chronic Assessment and plan: Nephrology input appreciated continue CAN FILLING MACHINE OPERATOR as per nephrology (MWF) HD today (09/14/16) (8) Obesity (BMI 30-39.9) Current Visit: Yes Status: Chronic (9) Tobacco abuse Current Visit: No Status: Chronic Assessment and plan: nicotine patch PRN - Subjective Interval history: Patient seen and examined in dialysis. Resting comfortably in bed and reports of wearing bipap overnight however has been refusing bipap support all day and has been refusing ABG draws today. Patient counselled on the need to be compliant with his management and he states he will allow for the ABG draw after dialysis. Encouraged to wear bipap - Constitutional Vitals: Temp Pulse Resp BP Pulse Ox 98.1 F 92 18 109/62 93 09/14/16 09:35 09/14/16 07:49 09/14/16 09:35 09/14/16 12:35 09/14/16 07:49 General appearance: Present: A&O X 3, morbidly obese, no acute distress. Absent : cooperative - Head Head exam: Present: atraumatic, normocephalic - Respiratory Respiratory exam: Present: decreased breath sounds. Absent: wheezes - Cardiovascular Cardiovascular exam: Present: RRR, +S1, +S2. Absent: diastolic murmur, gallop, rubs, systolic murmur - GI/Abdominal GI/Abdominal exam: Present: normal bowel sounds, soft, no peritoneal signs. Absent: distended, tenderness - Extremities Exam Extremities exam: Present: pedal edema, warm, radial pulses palpable and symetrical. Absent: calf tenderness Additional comments: b/l LE calciphylaxis - Neurological Exam Neurological exam: Present: alert, oriented X3 - Psychiatric Psychiatric exam: Present: normal affect, normal mood Internal Medicine: Result - Labs CBC & Chem 7: 09/14/16 04:44 09/14/16 04:44 Labs: Short CBC 09/14/16 Range/Units 04:44 WBC 7.1 (4.3-11.1) K/mcL Hgb 11.6 L (12.9-16.9) g/dL Hct 37.4 L (37.5-50.1) % Plt Count 141 (140-400) K/mcL Neutrophils # 5.3 (1.6-8.9) K/mcL BMP 09/14/16 04:44 Sodium 138 Potassium 4.5 D Chloride 96 L Carbon Dioxide 26 BUN 92 H Creatinine 12.68 H Glucose 188 H Calcium 7.9 L Liver Function 09/14/16 Range/Units 04:44 Albumin 2.6 L (3.5-5.0) g/dL - ABG Interpretation ABG results: ABG ABG pH 7.16 pH Units (7.32-7.45) L* 09/13/16 10:30 ABG pCO2 86 mmHg (35-45) H* 09/13/16 10:30 ABG pO2 91 mmHg (85-104) 09/13/16 10:30 ABG O2 Saturation 94 % (95-98) L 09/13/16 10:30 PT/INR, D-dimer PT 15.9 Seconds (9.4-12.1) H 09/08/16 03:45 Consult Discharge Plan - Plan Referrals: Arthur Pozo MD [Primary Care Provider] - 09/22/16 9:45 am (Please follow up as schedule...)
[2016-09-14] MEDS: Acetaminophen 325 MG TABLET PO PRN ×2 (14:55→20:50)
[2016-09-14] MEDS ORDERED: 0.9 % Sodium Chloride 2,000 ML ONE (18:42)
[2016-09-14] MEDS ORDERED: *HR* Metoprolol 5 MG/5 ML VIAL IVP ONE ×2 (22:10→22:13)
[2016-09-14] MEDS ORDERED: *HR* LORazepam 2 MG/ML VIAL IVP ONE (23:52)
[2016-09-15] MEDS: Tetrahydrozoline 15 ML BOTTLE LEFT EYE PRN (00:14)
[2016-09-15] MEDS ORDERED: Verapamil 5 MG/2 ML VIAL IVP ONE (02:37)
[2016-09-15] MEDS: Ipratropium/Albuterol Neb 3 ML IH SCH ×4 (04:37→22:22)
[2016-09-15] MEDS: *HR* Heparin 5,000 UNIT/ML VIAL SQ SCH ×3 (05:31→22:32)
[2016-09-15 05:36] LABS: Basophils % 0.5 %; Eosinophils # 0.1 K/mcL (0.0-0.6); Hematocrit 38.2 % (37.5-50.1); Hemoglobin 11.6 g/dL (12.9-16.9); Immature Granulocytes % 0.6 % (0-4); Lymphocytes # 0.9 K/mcL (0.6-4.6); Lymphocytes % 13.7 %; Mean Corpuscular HGB Conc 30.4 g/dL (31.6-35.5); Mean Corpuscular Hemoglobin 26.3 pg (28.0-33.3); Mean Corpuscular Volume 86.6 fL (83.0-100.0); Mean Platelet Volume 10.8 fL (9.4-12.4); Monocytes # 0.8 K/mcL (0.0-1.3); Monocytes % 12.8 %; Neutrophils # 4.6 K/mcL (1.6-8.9); Platelet Count 158 K/mcL (140-400); Red Blood Count 4.41 M/mcL (4.19-5.50); Red Cell Distribution Width 15.5 % (11.5-14.5); Segmented Neutrophils % 70.4 %
[2016-09-15 05:52] LABS: Calcium 8.5 mg/dL (8.6-10.8); Phosphorous 6.9 mg/dL (2.3-4.7); Potassium 4.2 mEq/L (3.5-4.5)
--- NOTE | 2016-09-15 08:13 | Nephrology Progress Note ---
Date of Encounter: 09/15/16 Time of Encounter: 08:11 - Assessment and Plan (1) End stage renal disease on dialysis Current Visit: Yes Status: Chronic The patient is stable from a renal perspective. He does have what appears to be sinus tachycardia. A flutter is also possible. He is being managed by the hospitalist service. His next dialysis will be tomorrow. (2) Fluid overload Current Visit: Yes Status: Acute Qualifiers: Hypervolemia type: unspecified Qualified Code(s): E87.70 - Fluid overload, unspecified (3) Nonischemic cardiomyopathy Current Visit: No Status: Chronic (4) Respiratory acidosis Current Visit: No Status: Acute (5) ZAINAB (obstructive sleep apnea) Current Visit: Yes Status: Chronic Subjective Principal diagnosis: acute on chronic respiratory failure with hypoxia and hypercapnea Interval history: The patient is sleeping. He is difficult to arouse. The patient's nurse reports that the patient did use his BiPAP last night. He also was given Ativan as well as a beta ga because of what appears to be sinus tachycardia. He remains tachycardic with a heart rate in the 150s. Objective - Vital Signs Vital signs: Vital Signs Temp Pulse Resp BP Pulse Ox 09/15/16 07:06 98.2 F 149 16 123/68 97 09/15/16 05:26 98.2 F 144 25 106/63 95 09/15/16 04:37 20 94 09/15/16 00:14 98.4 F 152 22 134/69 95 09/14/16 23:36 33 134/69 99 09/14/16 19:19 97.9 F 100 20 131/87 97 09/14/16 16:42 98.1 F 18 122/77 09/14/16 16:13 16 93 09/14/16 15:36 98.1 F 94 17 103/58 94 09/14/16 14:05 128/70 09/14/16 13:50 121/52 09/14/16 13:35 108/57 09/14/16 13:20 100/57 09/14/16 13:05 106/56 09/14/16 12:50 110/56 09/14/16 12:35 109/62 09/14/16 12:20 112/65 09/14/16 12:05 121/73 09/14/16 11:50 114/73 05/08/17 11:35 114/64 09/14/16 11:20 112/64 09/14/16 11:05 101/55 09/14/16 10:50 112/66 09/14/16 10:35 118/66 09/14/16 10:20 118/69 09/14/16 10:05 122/72 09/14/16 09:50 122/72 09/14/16 09:35 98.1 F 18 124/82 Intake and Output 09/14/16 09/15/16 09/15/16 23:59 07:59 15:59 Intake Total 1240 / 1240 0 / 0 Output Total 4600 / 4600 0 / 0 Balance -3360 / -3360 0 / 0 Intake: Oral 1240 / 1240 0 / 0 Output: Urine 0 / 0 0 / 0 Total Dialysis Output 4600 / 4600 Other: Meal SOUP,CRACKERS,JUICE Percent of Meal Consumed 100% Stool Size Moderate Small Stool Consistency formed formed Stool Color Jim Colored Blood Tinged # Bowel Movements 1 1 Blood Glucose* 212 82 Hemodialysis Net Fluid 4000 Removed (mL) - General Appearance Exam: Patient is sleeping. He briefly awakes to verbal stimuli and then drifts back off to sleep. Blood pressure stable. Heart rate is approximately 154. Heart rate is regular on exam. Lungs diminished breath sounds. Abdomen is obese. No guarding nor rigidity. There is less lower extremity swelling. - Lab 09/15/16 04:55 09/15/16 04:55 Most recent lab results ABG pH 7.16 pH Units (7.32-7.45) L* 09/13/16 10:30 ABG pCO2 86 mmHg (35-45) H* 09/13/16 10:30 ABG pO2 91 mmHg (85-104) 09/13/16 10:30 ABG HCO3 30.7 mEQ/L (21-27) H 09/13/16 10:30 ABG O2 Saturation 94 % (95-98) L 09/13/16 10:30 Calcium 8.5 mg/dL (8.6-10.8) L 09/15/16 04:55 Phosphorus 6.9 mg/dL (2.3-4.7) H 09/15/16 04:55 Magnesium 2.0 mg/dL (1.6-2.6) 09/15/16 04:55 Consult Discharge Plan - Plan Referrals: Arthur Pozo MD [Primary Care Provider] - 09/22/16 9:45 am (Please follow up as schedule...)
[2016-09-15] MEDS: Pregabalin 50 MG CAPSULE PO SCH (08:20)
[2016-09-15] MEDS: Insulin LISPRO 300 UNITS/3 ML VIAL SQ SCH ×4 (08:20→22:34)
[2016-09-15] MEDS: Renal Vitamin 1 MG CAPSULE PO SCH (08:20)
[2016-09-15] MEDS: Calcium Acetate 667 MG CAPSULE PO SCH ×3 (08:21→16:04)
[2016-09-15] MEDS: Nicotine 21 MG PATCH.TD24 TD SCH (08:22)
[2016-09-15] MEDS: Ammonium Lactate 30 APPL/225 GM BOTTLE TP SCH ×2 (08:22→22:32)
[2016-09-15] MEDS: Insulin DETEMIR 100 UNIT/ML X5UNITS SQ SCH ×2 (08:28→22:33)
--- NOTE | 2016-09-15 10:23 | Internal Med Progress Note ---
Date of Encounter: 09/15/16 Time of Encounter: 10:16 - Assessment and plan (1) Tachycardia Current Visit: Yes Status: Acute Assessment and plan: tachy since last night, patient was on betablockers at home 50 mg coreg bid, since admission was on coreg 12.5 bid, will give a stat dose of cardziem 15 mg i push and esume his home dose of coreg 50 mg bid. (2) Acute and chronic respiratory failure Current Visit: Yes Status: Acute Qualifiers: Qualified Code(s): J96.21 - Acute and chronic respiratory failure with hypoxia; J96.22 - Acute and chronic respiratory failure with hypercapnia (3) Systolic heart failure, chronic Current Visit: Yes Status: Acute Assessment and plan: last echo on 01/28/16 showed LVEF 35%, LV function moderate to severely reduced. mild concentric LVH, indeterminate diastolic funciton, RV significantly dilated with reduced funciton, RVSP 38, RA pressure 20, no obvious valvular dysfunction , mild pulmonary HTN, Last EF: 20% Plan: dialysis as per nephrology. (4) Diabetes mellitus Current Visit: Yes Status: Chronic Qualifiers: Diabetes mellitus type: type 2 Diabetes mellitus complication status: with kidney complications Diabetes mellitus complication detail: with chronic kidney disease Diabetes mellitus passenger agent insulin use: unspecified passenger agent insulin use status Chronic kidney disease stage: on chronic dialysis Qualified Code(s): E11.22 - Type 2 diabetes mellitus with diabetic chronic kidney disease; N18.6 - End stage renal disease (5) End stage renal disease on dialysis Current Visit: Yes Status: Chronic Assessment and plan: Nephrology input appreciated. continue ALCOHOL AND DRUG COUNSELOR as per nephrology (MWF). HD as pr nephro. (6) ZAINAB (obstructive sleep apnea) Current Visit: Yes Status: Chronic (7) DVT prophylaxis Current Visit: No Status: Acute - Subjective Interval history: tachycardic since last night. no chest pain, afebrile - Constitutional Vitals: Temp Pulse Resp BP Pulse Ox 98.2 F 149 16 123/68 97 09/15/16 07:06 09/15/16 07:06 09/15/16 07:06 09/15/16 07:06 09/15/16 07:06 General appearance: Present: A&O X 3, morbidly obese, no acute distress. Absent : cooperative - Head Head exam: Present: atraumatic, normocephalic - Eye Eye exam: Present: PERRL, conjuntiva pink, sclera anicteric Pupils: Present: PERRL - Neck Neck exam general surgery: Present: supple, trachea midline. Absent: lymphadenopathy - Respiratory Respiratory exam: Present: CTAB. Absent: accessory muscle use, rales, rhonchi, wheezes - Cardiovascular Cardiovascular exam: Present: RRR, +S1, +S2, tachycardia. Absent: diastolic murmur, gallop, rubs, systolic murmur - GI/Abdominal GI/Abdominal exam: Present: normal bowel sounds, soft, no peritoneal signs. Absent: distended, tenderness - Extremities Exam Extremities exam: Present: warm, radial pulses palpable and symetrical. Absent : calf tenderness, cyanotic, pedal edema - Neurological Exam Neurological exam: Present: CN II-XII intact, oriented X3, no focal deficits. Absent: pronater drift, facial droop, speech deficit - Skin Skin exam: Present: dry, intact Internal Medicine: Result - Labs CBC & Chem 7: 09/15/16 04:55 09/15/16 04:55 Labs: Short CBC 09/15/16 Range/Units 04:55 WBC 6.6 (4.3-11.1) K/mcL Hgb 11.6 L (12.9-16.9) g/dL Hct 38.2 (37.5-50.1) % Plt Count 158 (140-400) K/mcL Neutrophils # 4.6 (1.6-8.9) K/mcL BMP 09/15/16 04:55 Sodium 141 Potassium 4.2 Chloride 99 Carbon Dioxide 27 BUN 65 H D Creatinine 10.09 H Glucose 81 Calcium 8.5 L - ABG Interpretation ABG results: ABG ABG pH 7.16 pH Units (7.32-7.45) L* 09/13/16 10:30 ABG pCO2 86 mmHg (35-45) H* 09/13/16 10:30 ABG pO2 91 mmHg (85-104) 09/13/16 10:30 ABG O2 Saturation 94 % (95-98) L 09/13/16 10:30 PT/INR, D-dimer PT 15.9 Seconds (9.4-12.1) H 09/08/16 03:45 Consult Discharge Plan - Plan Referrals: Arthur Pozo MD [Primary Care Provider] - 09/22/16 9:45 am (Please follow up as schedule...)
[2016-09-15] MEDS: Acetaminophen 325 MG TABLET PO PRN (12:32)
--- NOTE | 2016-09-15 17:06 | Electrocardiograph Report ---
[address] [address] Test Date: 2016-09-15 Pat Name: Eduar Hatch Department: 112 Room: 2A Gender: M Commutator Undercutter: ANGEL LUIS : 1970 Requested By: Yuriy Banerjee Order Number: [id number] Reading MD: Mago Carson Measurements Intervals [place] Rate: 158 P: [place]: 0 QRS: 35 QRSD: 98 T: 51 QT: 280 QTc: 368 Interpretive Statements ATRIAL FLUTTER WITH RAPID VENTRICULAR RESPONSE LOW QRS VOLTAGE IN EXTREMITY LEADS MINIMAL ST DEPRESSION ABNORMAL RHYTHM ECG Electronically Signed On 09-15-2016 17:04:16 EDT by Mago Carson
--- NOTE | 2016-09-15 17:09 | Electrocardiograph Report ---
[place] [address] Test Date: 2016-09-15 Pat Name: Eduar Hatch Department: 112 Room: 2A Gender: M Behavioral Health Worker: [id number] : 1970 Requested By: Stas Rey Order Number: [id number] Reading MD: Mago Carson Measurements Intervals [place] Rate: 155 P: [place]: 0 QRS: 61 QRSD: 93 T: 59 QT: 280 QTc: 367 Interpretive Statements ATRIAL FLUTTER WITH RAPID VENTRICULAR RESPONSE MODERATE ST DEPRESSION Electronically Signed On 09-15-2016 17:07:43 EDT by Mago Carson
--- NOTE | 2016-09-15 17:10 | Electrocardiograph Report ---
[place] [address] Test Date: 2016-09-15 Pat Name: Eduar Hatch Department: 112 Room: 2A Gender: M Crm Architect: [id number] : 1970 Requested By: Stas Rey Order Number: [id number] Reading MD: Mago Carson Measurements Intervals [place] Rate: 129 P: [place]: 0 QRS: 46 QRSD: 93 T: 63 QT: 296 QTc: 372 Interpretive Statements ATRIAL FLUTTER WITH RAPID VENTRICULAR RESPONSE INDETERMINATE AXIS MINIMAL ST DEPRESSION ABNORMAL RHYTHM ECG Electronically Signed On 09-15-2016 17:09:00 EDT by Mago Carson
[2016-09-16] MEDS: Acetaminophen 325 MG TABLET PO PRN ×3 (00:55→21:44)
[2016-09-16] MEDS: *HR* Heparin 5,000 UNIT/ML VIAL SQ SCH ×2 (03:06→12:36)
[2016-09-16] MEDS: Ipratropium/Albuterol Neb 3 ML IH SCH ×4 (04:07→22:45)
[2016-09-16 04:47] LABS: Basophils % 0.6 %; Eosinophils # 0.2 K/mcL (0.0-0.6); Eosinophils % 2.7 %; Hematocrit 38.7 % (37.5-50.1); Hemoglobin 11.9 g/dL (12.9-16.9); Immature Granulocytes % 0.9 % (0-4); Lymphocytes # 1.1 K/mcL (0.6-4.6); Lymphocytes % 15.5 %; Mean Corpuscular HGB Conc 30.7 g/dL (31.6-35.5); Mean Corpuscular Hemoglobin 26.7 pg (28.0-33.3); Mean Corpuscular Volume 86.8 fL (83.0-100.0); Mean Platelet Volume 10.7 fL (9.4-12.4); Monocytes # 0.8 K/mcL (0.0-1.3); Monocytes % 11.7 %; Neutrophils # 4.8 K/mcL (1.6-8.9); Platelet Count 158 K/mcL (140-400); Red Blood Count 4.46 M/mcL (4.19-5.50); Red Cell Distribution Width 15.6 % (11.5-14.5); Segmented Neutrophils % 68.6 %
[2016-09-16 05:09] LABS: Albumin 2.7 g/dL (3.5-5.0); Albumin/Globulin Ratio 0.7 (1.1-2.2); Bilirubin,Total 0.8 mg/dL (0.2-1.2); Calcium 8.5 mg/dL (8.6-10.8); Globulin 3.8 g/dL (2.4-3.5); Potassium 4.8 mEq/L (3.5-4.5); Total Protein 6.5 g/dL (6.0-8.3)
[2016-09-16] MEDS ORDERED: 0.9 % Sodium Chloride 250 ML IVC PRN (08:16)
--- NOTE | 2016-09-16 08:16 | Nephrology Progress Note ---
Date of Encounter: 09/16/16 Time of Encounter: 08:14 - Assessment and Plan (1) End stage renal disease on dialysis Current Visit: Yes Status: Chronic The patient will undergo dialysis today. He will receive his Coreg prior to dialysis. (2) Fluid overload Current Visit: Yes Status: Acute Qualifiers: Hypervolemia type: unspecified Qualified Code(s): E87.70 - Fluid overload, unspecified (3) Nonischemic cardiomyopathy Current Visit: No Status: Chronic (4) Respiratory acidosis Current Visit: No Status: Acute (5) ZAINAB (obstructive sleep apnea) Current Visit: Yes Status: Chronic Subjective Principal diagnosis: acute on chronic respiratory failure with hypoxia and hypercapnea Interval history: Patient is sleeping. He is difficult to arouse. He will arouse briefly and then just back off to sleep. He remains tachycardic. His Coreg dose has been increased. He is scheduled for his usual dialysis today. Objective - Vital Signs Vital signs: Vital Signs Temp Pulse Resp BP Pulse Ox 09/16/16 06:59 97 F L 115 18 129/82 97 09/16/16 03:42 97.4 F L 110 17 102/60 92 09/16/16 00:02 98.2 F 126 17 126/81 94 09/15/16 22:24 20 95 09/15/16 21:08 97.6 F 140 17 115/71 95 09/15/16 11:30 98.4 F 138 20 116/71 95 Intake and Output 09/15/16 09/16/16 09/16/16 23:59 07:59 15:59 Intake Total 240 / 240 370 / 370 Output Total 0 / 0 Balance 240 / 240 370 / 370 Intake: Oral 240 / 240 370 / 370 Output: Urine 0 / 0 Other: Meal DIET SODA AND CHICKEN STRIPS PEANUT BUTTER CRACKERS AND JUICE Weight 120.826 kg Blood Glucose* 167 131 Patient Weight 09/16/16 23:59 Weight 120.826 kg - General Appearance Exam: Patient is sleeping. He is in no acute distress. Lungs diminished breath sounds otherwise clear. Heart regular rate and rhythm. Heart rate is in the 120s. Abdomen is obese. There is lower extremity swelling. There is a functioning AV fistula in the left arm. - Lab 09/16/16 04:12 09/16/16 04:12 Most recent lab results ABG pH 7.16 pH Units (7.32-7.45) L* 09/13/16 10:30 ABG pCO2 86 mmHg (35-45) H* 09/13/16 10:30 ABG pO2 91 mmHg (85-104) 09/13/16 10:30 ABG HCO3 30.7 mEQ/L (21-27) H 09/13/16 10:30 ABG O2 Saturation 94 % (95-98) L 09/13/16 10:30 Calcium 8.5 mg/dL (8.6-10.8) L 09/16/16 04:12 Phosphorus 6.9 mg/dL (2.3-4.7) H 09/15/16 04:55 Magnesium 2.0 mg/dL (1.6-2.6) 09/15/16 04:55 Consult Discharge Plan - Plan Referrals: Arthur Pozo MD [Primary Care Provider] - 09/22/16 9:45 am (Please follow up as schedule...)
[2016-09-16] MEDS: Nicotine 21 MG PATCH.TD24 TD SCH (08:18)
[2016-09-16] MEDS: Renal Vitamin 1 MG CAPSULE PO SCH (08:20)
[2016-09-16] MEDS: Pregabalin 50 MG CAPSULE PO SCH (08:20)
[2016-09-16] MEDS: Calcium Acetate 667 MG CAPSULE PO SCH ×3 (08:20→17:14)
[2016-09-16] MEDS: Insulin DETEMIR 100 UNIT/ML X5UNITS SQ SCH ×2 (08:20→21:41)
[2016-09-16] MEDS: Insulin LISPRO 300 UNITS/3 ML VIAL SQ SCH ×4 (08:21→21:41)
[2016-09-16] MEDS: Ammonium Lactate 30 APPL/225 GM BOTTLE TP SCH ×2 (08:21→19:54)
--- NOTE | 2016-09-16 08:28 | Cardiology Consult Note ---
Date of Encounter: 09/16/16 Time of Encounter: 14:46 Assessment and Plan (1) Atrial flutter with rapid ventricular response Current Visit: Yes Status: Acute Developed atrial flutter with RVR early 09/15/16. Avg HR over 24 hours was 124 bpm. On carvedilol 50 mg BID. Discussed with Dr. Chalino Carson, start amiodarone gtt. Start heparin gtt for anticoagulation. I discussed anticoagulation with coumadin and he agrees. Previously on coumadin for DVT. CHADS VAsc=3. Indication , benefits, and adverse reactions discussed. (2) Nonischemic cardiomyopathy Current Visit: No Status: Chronic TTE showed reduced EF at 20%, moderate diastolic dysfunction, moderate RV hypokenesis, no pulmonary hypertension. There was a small pericardial effusion with no evidence of tamponade. EF mildly reduced from previous. EF 35% 01/2016. LHC several years ago showed normal coronaries. Cardiomyopathy thought to be secondary to uncontrolled hypertension. Net negative -5945 ml for stay. ESRD on dialysis. Continue low sodium diet. Out-pt f/u to discuss ICD placement. Continue bb. No michael-inhibitor d/t ESRD. (3) Elevated troponin Current Visit: No Status: Acute Mild troponin elevation 0.21, 0.13. Demand ischemia in the setting of respiratory failure and ESRD. Denies chest pain. Discussion w patient/family: The assessment and plan as outlined above was discussed with the patient and/or family members who expressed understanding and agreement. All questions were answered. Thank you for involving us in the care of your patient. Please call with any questions. History of Present Illness Consult date: 09/16/16 Requesting physician: Stas Rey Consult reason: New aflutter Chief complaint: headache History of present illness: Mr. Hatch is a 45 year-old male with history of NICMP EF 20%, HTN, DMII, hyperlipidemia, DVT , ESRD on dialysis, and tobacco abuse. He presented with AMS , fall at home, and acute on chronic respiratory distress. He was initially intubated and required ventilator support from 09/03/16-09/08/16. He was treated for COPD exacerbation, ZAINAB, and acute on chronic CHF. He is now on a stepdown unit and he developed atrial flutter with RVR yesterday. His carvedilol was increased. TTE showed reduced EF at 20%, moderate diastolic dysfunction, moderate RV hypokenesis, no pulmonary hypertension. There was a small pericardial effusion with no evidence of tamponade. EF mildly reduced from previous. EF 35% 01/2016. Chronic tropnin elevation 0.21, 0.13. LHC several years ago showed normal coronaries. Cardiomyopathy thought to be secondary to uncontrolled hypertension. He denies chest pain. Denies history of atrial flutter. He denies symptoms with his atrial flutter. Past Med Surg Social Fam HX - Past Medical History Attestation: Yes The following information was validated with the patient. Medical history: arthritis, cardiomyopathy, CHF, COPD, diabetes, dialysis, GERD , hyperlipidemia, hypertension, osteoporosis (vit D def.), renal disease, other Psychiatric history: anxiety, depression, other - Past Surgical History Surgical History: herniorrhaphy, vascular surgery, other - Social History Smoking Status: Current every day smoker Smokeless Tobacco Status: No Alcohol use: none, unknown Drug use: marijuana, other - Family History Father Living Status: Age at : 83 Mother Adopted: No Living Status: Still Living Hx Family Cardiac Disorders: Yes Hx Family Endocrine Disorder: Yes Medications and Allergies Furosemide [Lasix] 80 mg PO DAILY #0 01/07/15 [History] Insulin ASPART [NovoLOG] 0 unit SQ TIDAC #0 01/07/15 [History] Insulin Glargine,Hum.rec.anlog [Lantus Solostar] 30 unit SQ BID #0 01/07/15 [ History] [place] Oil/[place]-3 Fatty Acids [Fish Oil 500 mg Softgel] 1 cap PO DAILY #0 [History] Pregabalin [Lyrica] 100 mg PO TID capsule 01/08/15 [Rx] Rosuvastatin [Crestor] 20 mg PO DAILY tablet 01/08/15 [Rx] Carvedilol [Coreg] 50 mg PO BIDWM 01/24/16 [History] Duloxetine HCl [Cymbalta] 60 mg PO DAILY 01/24/16 [History] Lidocaine/Prilocaine CREAM [Emla] 1 appl TP AD PRN 01/24/16 [History] Pantoprazole Sodium [Protonix] 40 mg PO DAILY 01/24/16 [History] Renal Vitamin [Renal Caps Softgel] 1 mg PO DAILY 01/24/16 [History] Ammonium Lactate [Ammonium Lactate] 1 appl TP BID 09/02/16 [History] Cinacalcet HCl [Sensipar] 60 mg PO DAILY 09/02/16 [History] Isosorbide MONOnitrate (24 HR) [Imdur] 30 mg PO DAILY 09/02/16 [History] Lisinopril [Zestril] 5 mg PO DAILY PRN 09/02/16 [History] hydrALAZINE [HydrALAZINE] 25 mg PO BID 09/02/16 [History] Allergies hydrocodone [From Patrick] Allergy (Intermediate, Verified 09/14/16 14:52) Hives All Systems Review: A 10-system review of systems was performed and is negative for pertinent findings except as documented above in the HPI. Physical Examination Vital Signs, Last 4 Hours Temp Pulse Resp BP Pulse Ox 09/16/16 06:59 97 F L 115 18 129/82 97 General: Conversant, No Apparent Distress HEENT: Atraumatic, Normocephaly, Mucus Membranes Moist, Other (Sclera red) Neck: No JVD, Normal carotid pulses Cardiac: Other (irregularly irregular) Lungs: Normal Breath Sounds, No Wheeze, Rales, Rhonchi Neuro: Alert and responsive, No focal deficits noted Abdomen: Soft, Non-Tender Skin: No rashes noted on visualized skin Musculoskeletal: No Chest Wall Tenderness Extremities: No Clubbing, No Cyanosis, Normal Pulses, Other (1+ BLE edema. ) Results 09/16/16 04:12 09/16/16 04:12 Lab Results 09/16/16 09/16/16 09/16/16 04:12 04:12 04:12 WBC 7.0 Hgb 11.9 L Hct 38.7 Plt Count 158 Sodium 136 Potassium 4.8 H Chloride 96 L Carbon Dioxide 25 BUN 84 H D Creatinine 11.74 H Glucose 155 H Calcium 8.5 L Total Bilirubin 0.8 AST 25 ALT 19 Alkaline Phosphatase 282 H TSH 1.084 - Imaging and Cardiology Echo: report reviewed - EKG Interpretation EKG results cardiology: personally reviewed Consult Discharge Plan - Plan Referrals: Arthur Pozo MD [Primary Care Provider] - 09/22/16 9:45 am (Please follow up as schedule...)
[2016-09-16] MEDS ORDERED: 0.9 % Sodium Chloride 2,000 ML ONE (10:36)
[2016-09-16] MEDS ORDERED: Amiodarone Premix 360 MG/200 ML BAG IVC ONE (15:06)
[2016-09-16] MEDS ORDERED: Amiodarone Premix 150 MG/100 ML BAG IVPB ONE (15:06)
[2016-09-16] MEDS ORDERED: *HR* Heparin 5,000 UNIT/ML VIAL IVP PRN ×2 (15:08)
[2016-09-16] MEDS ORDERED: *HR* Heparin 5,000 UNIT/ML VIAL IVP ONE (15:08)
[2016-09-16 15:41] LABS: Hematocrit 41.1 % (37.5-50.1); Hemoglobin 12.8 g/dL (12.9-16.9); Mean Corpuscular HGB Conc 31.1 g/dL (31.6-35.5); Mean Corpuscular Hemoglobin 26.8 pg (28.0-33.3); Mean Platelet Volume 9.8 fL (9.4-12.4); Platelet Count 151 K/mcL (140-400); Red Blood Count 4.78 M/mcL (4.19-5.50); Red Cell Distribution Width 15.8 % (11.5-14.5)
[2016-09-16 15:45] LABS: INR 1.3; Prothrombin Time 14.1 Seconds (9.4-12.1)
[2016-09-16 15:47] LABS: Activated Partial Thrombo Time 35.6 Seconds (26.0-36.0)
--- NOTE | 2016-09-16 16:04 | Internal Med Progress Note ---
Date of Encounter: 09/16/16 Time of Encounter: 12:35 - Assessment and plan (1) Tachycardia Current Visit: Yes Status: Acute Assessment and plan: ta flutter, not imporved in despite of increased dose of betablockes, cardio consulted, amio drip. anticoagulation in light of a flutter and chadsvasc 3. (2) Acute and chronic respiratory failure Current Visit: Yes Status: Acute Qualifiers: Qualified Code(s): J96.21 - Acute and chronic respiratory failure with hypoxia; J96.22 - Acute and chronic respiratory failure with hypercapnia (3) Systolic heart failure, chronic Current Visit: Yes Status: Acute Assessment and plan: last echo on 01/28/16 showed LVEF 35%, LV function moderate to severely reduced. mild concentric LVH, indeterminate diastolic funciton, RV significantly dilated with reduced funciton, RVSP 38, RA pressure 20, no obvious valvular dysfunction , mild pulmonary HTN, Last EF: 20% Plan: continue with chf meds, dialysis as per nephrology. (4) Diabetes mellitus Current Visit: Yes Status: Chronic Assessment and plan: BG within acceptable range continue to monitor FS and BG continue ss insulin continue Levemir Qualifiers: Qualified Code(s): E11.22 - Type 2 diabetes mellitus with diabetic chronic kidney disease; N18.6 - End stage renal disease (5) End stage renal disease on dialysis Current Visit: Yes Status: Chronic Assessment and plan: Nephrology input appreciated. 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 HD as pr nephro. (6) ZAINAB (obstructive sleep apnea) Current Visit: Yes Status: Chronic Assessment and plan: Patient sees pulmonology out patient, undergoing CPAP titration. Patient appears noncompliant due to repeated no show appointments. (7) DVT prophylaxis Current Visit: No Status: Acute - Subjective Interval history: still tachycardic . no chest pain, afebrile - Constitutional Vitals: Temp Pulse Resp BP Pulse Ox 98.1 F 115 18 132/84 97 09/16/16 15:30 09/16/16 06:59 09/16/16 15:30 09/16/16 15:30 09/16/16 06:59 General appearance: Present: A&O X 3, morbidly obese, no acute distress. Absent : cooperative - Head Head exam: Present: atraumatic, normocephalic - Eye Eye exam: Present: PERRL, conjuntiva pink, sclera anicteric Pupils: Present: PERRL - Neck Neck exam general surgery: Present: supple, trachea midline. Absent: lymphadenopathy - Respiratory Respiratory exam: Present: CTAB. Absent: accessory muscle use, rales, rhonchi, wheezes - Cardiovascular Cardiovascular exam: Present: RRR, +S1, +S2, tachycardia. Absent: diastolic murmur, gallop, rubs, systolic murmur - GI/Abdominal GI/Abdominal exam: Present: normal bowel sounds, soft, no peritoneal signs. Absent: distended, tenderness - Extremities Exam Extremities exam: Present: warm, radial pulses palpable and symetrical. Absent : calf tenderness, cyanotic, pedal edema - Neurological Exam Neurological exam: Present: CN II-XII intact, oriented X3, no focal deficits. Absent: pronater drift, facial droop, speech deficit - Skin Skin exam: Present: dry, intact Internal Medicine: Result - Labs CBC & Chem 7: 09/16/16 15:31 09/16/16 04:12 Labs: Short CBC 09/16/16 09/16/16 Range/Units 04:12 15:31 WBC 7.0 6.5 (4.3-11.1) K/mcL Hgb 11.9 L 12.8 L (12.9-16.9) g/dL Hct 38.7 41.1 (37.5-50.1) % Plt Count 158 151 (140-400) K/mcL Neutrophils # 4.8 (1.6-8.9) K/mcL BMP 09/16/16 04:12 Sodium 136 Potassium 4.8 H Chloride 96 L Carbon Dioxide 25 BUN 84 H D Creatinine 11.74 H Glucose 155 H Calcium 8.5 L Liver Function 09/16/16 Range/Units 04:12 Total Bilirubin 0.8 (0.2-1.2) mg/dL AST 25 (5-34) Units/L ALT 19 (0-55) Units/L Alkaline Phosphatase 282 H (38-126) Units/L Albumin 2.7 L (3.5-5.0) g/dL - ABG Interpretation ABG results: ABG ABG pH 7.16 pH Units (7.32-7.45) L* 09/13/16 10:30 ABG pCO2 86 mmHg (35-45) H* 09/13/16 10:30 ABG pO2 91 mmHg (85-104) 09/13/16 10:30 ABG O2 Saturation 94 % (95-98) L 09/13/16 10:30 PT/INR, D-dimer PT 14.1 Seconds (9.4-12.1) H 09/16/16 15:31 Consult Discharge Plan - Plan Referrals: Arthur Pozo MD [Primary Care Provider] - 09/22/16 9:45 am (Please follow up as schedule...)
[2016-09-16] MEDS: Heparin 25,000 UNIT/500 ML D5W 25,000 UNIT/500 ML MLS IVC SCH (17:09)
--- NOTE | 2016-09-16 18:56 | Venous Imaging Report ---
LE Venous Duplex Patient Name:Eduar Hatch Order Number:[id number] Procedure Date:09/16/2016 Date:1970Age:45 yrs Gender:Male Location:[facility] Room #: 2A35 Tube Heater:Waldo Sharp Referring MD:Stas Rey MD Reading MD:Ricarod Orourke MD , FACS Primary Indications:Rule out DVT Secondary Indications: Risk Factors Yes/No Hx of DVT Yes Impressions: Bilateral lower extremity: normal superficial and deep exam. Recommendations: After imaging the patient returned to their room. Findings Venous Duplex Results: Right: Venous imaging of the lower extremity reveals full patency and normal vessel compressibility of the right distal iliac, right common femoral, right superficial femoral, right popliteal, right posterior tibial, right peroneal, right great saphenous and right lesser saphenous. Doppler signals in the evaluated veins were normal. Left: Venous imaging of the lower extremity reveals full patency and normal vessel compressibility of the left distal iliac, left common femoral, left superficial femoral, left popliteal, left posterior tibial, left peroneal, left great saphenous and left lesser saphenous. Doppler signals in the evaluated veins were normal. Lower Extremity Venous Duplex Side Vein Compress Spontaneous Flow Augment Diameter (cm) Depth (cm) Right Distal Iliac Normal Yes Phasic Yes Right Common Femoral Normal Yes Phasic Yes Right Superficial Femoral Normal Yes Phasic Yes Right Popliteal Normal Yes Phasic Yes Right Posterior Tibial Normal Yes Phasic Yes Right Peroneal Normal Yes Phasic Yes Right Great Saphenous Normal Yes Phasic Yes Right Lesser Saphenous Normal Yes Phasic Yes Left Distal Iliac Normal Yes Phasic Yes Left Common Femoral Normal Yes Phasic Yes Left Superficial Femoral Normal Yes Phasic Yes Left Popliteal Normal Yes Phasic Yes Left Posterior Tibial Normal Yes Phasic Yes Left Peroneal Normal Yes Phasic Yes Left Great Saphenous Normal Yes Phasic Yes Left Lesser Saphenous Normal Yes Phasic Yes Updated by Ricardo Orourke MD, FACS on 09/16/2016 6:48:53 PM Ricardo Orourke MD electronically signed on 09/16/2016 6:49:22 PM with status of Final
[2016-09-16] MEDS: Ondansetron 4 MG/2 ML VIAL IVP PRN (21:58)
[2016-09-16] MEDS: Amiodarone Premix 360 MG/200 ML BAG IVC SCH (23:19)
[2016-09-17] MEDS ORDERED: Temazepam 15 MG CAPSULE PO ONE (00:08)
[2016-09-17] MEDS: Ipratropium/Albuterol Neb 3 ML IH SCH ×4 (05:16→22:30)
[2016-09-17 05:21] LABS: Hematocrit 38.1 % (37.5-50.1); Hemoglobin 11.9 g/dL (12.9-16.9); Mean Corpuscular HGB Conc 31.2 g/dL (31.6-35.5); Mean Corpuscular Hemoglobin 27.2 pg (28.0-33.3); Mean Corpuscular Volume 87.2 fL (83.0-100.0); Mean Platelet Volume 11.4 fL (9.4-12.4); Platelet Count 163 K/mcL (140-400); Red Blood Count 4.37 M/mcL (4.19-5.50); Red Cell Distribution Width 15.7 % (11.5-14.5); Segmented Neutrophils % 72.9 %
[2016-09-17 05:22] LABS: Basophils % 0.5 %; Eosinophils # 0.2 K/mcL (0.0-0.6); Eosinophils % 2.7 %; Immature Granulocytes % 0.8 % (0-4); Lymphocytes # 1.1 K/mcL (0.6-4.6); Lymphocytes % 14.5 %; Monocytes # 0.7 K/mcL (0.0-1.3); Monocytes % 8.6 %; Neutrophils # 5.7 K/mcL (1.6-8.9)
[2016-09-17 05:44] LABS: Calcium 8.9 mg/dL (8.6-10.8); Potassium 4.8 mEq/L (3.5-4.5)
[2016-09-17 06:08] LABS: Hypersegmented Neutrophils Present (Not Present); Platelet Estimate Normal (Normal); Reactive Lymphocytes Present (Not Present)
[2016-09-17] MEDS: Renal Vitamin 1 MG CAPSULE PO SCH (08:07)
[2016-09-17] MEDS: Calcium Acetate 667 MG CAPSULE PO SCH ×3 (08:08→17:09)
[2016-09-17] MEDS: Ammonium Lactate 30 APPL/225 GM BOTTLE TP SCH ×2 (08:15→21:42)
[2016-09-17] MEDS: Insulin LISPRO 300 UNITS/3 ML VIAL SQ SCH ×4 (08:19→20:50)
[2016-09-17] MEDS: Insulin DETEMIR 100 UNIT/ML X5UNITS SQ SCH ×2 (08:28→20:49)
[2016-09-17] MEDS: Pregabalin 50 MG CAPSULE PO SCH (08:29)
[2016-09-17] MEDS: Heparin 25,000 UNIT/500 ML D5W 25,000 UNIT/500 ML MLS IVC SCH (08:30)
[2016-09-17] MEDS: Amiodarone Premix 360 MG/200 ML BAG IVC SCH (08:35)
--- NOTE | 2016-09-17 10:14 | Nephrology Progress Note ---
Date of Encounter: 09/17/16 Time of Encounter: 10:05 - Assessment and Plan (1) End stage renal disease on dialysis Current Visit: Yes Status: Chronic Acute on chronic respiratory failure. Aflutter/RVR. AR improved 98. ESRD. HD tomorrow. Keeping on MWF schedule. Subjective Principal diagnosis: acute on chronic respiratory failure with hypoxia and hypercapnea Interval history: Awake, oriented to person, place. Clear speech. States thinks going to nursing facility today for rehab. Objective - Vital Signs Vital signs: Vital Signs Temp Pulse Resp BP Pulse Ox 09/17/16 07:26 97.7 F 98 16 85/66 96 09/16/16 23:22 98.4 F 103 15 103/66 96 09/16/16 20:19 98.4 F 101 16 114/69 95 09/16/16 18:30 124 116/80 97 09/16/16 18:08 123 135/94 97 09/16/16 17:45 135 140/78 96 09/16/16 17:30 129 117/85 09/16/16 17:13 145 123/71 09/16/16 16:47 98.0 F 142 18 105/79 96 09/16/16 15:30 98.1 F 18 132/84 09/16/16 14:45 128/84 09/16/16 14:30 119/76 09/16/16 14:15 122/78 09/16/16 14:00 121/77 09/16/16 13:45 119/54 09/16/16 13:30 124/62 09/16/16 13:15 125/55 09/16/16 13:00 122/57 09/16/16 12:45 100/57 09/16/16 12:30 137/56 09/16/16 12:15 112/56 09/16/16 12:00 118/55 09/16/16 11:45 115/52 09/16/16 11:30 106/44 09/16/16 11:15 111/48 09/16/16 11:00 102/44 09/16/16 10:45 112/47 09/16/16 10:30 115/58 09/16/16 10:15 98 F 18 99/50 Intake and Output 09/16/16 09/17/16 09/17/16 23:59 07:59 15:59 Intake Total 336 / 336 944 / 944 Output Total 50 / 50 Balance 286 / 286 944 / 944 Intake: IV Fluids 336 / 336 464 / 464 Amiodarone Drip Premix 200 / 200 360mg/200mL 360 mg In 200 ml @ 0.5 MG/MIN 16.667 mls/hr IVC CONT [facility] Rx#: [id number] Heparin 25,000 UNIT/500 236 / 236 264 / 264 ML D5W 25,000 unit In 500 ml @ 14 UNIT/KG/HR 33. 831 mls/hr IVC .[id number] [facility] Rx#:[id number] Amiodarone Premix 150mg/ 100 / 100 100mL 150 mg In 100 ml @ 300 mls/hr IVPB ONCE ONE Rx#:[id number] Oral 480 / 480 Output: Urine 50 / 50 Other: Meal sandwich, pb and crackers Breakfast Percent of Meal Consumed 100% 100% Stool Size Moderate Stool Consistency formed Stool Characteristics Normal for Patient Stool Color Brown # Bowel Movements 1 Blood Glucose* 268 146 - General Appearance General appearance: Present: well-developed, well-nourished, appears started age , obese EENT: Present: mucous membranes moist Neck: Present: no JVD Additional Comments: diminished, few scattered rhonchi Cardiology: Present: irregular rhythm Additional Comments: mild pitting edema, chronic vascular skin changes Gastrointestinal: Present: normoactive bowel sounds, no tenderness Integumentary: Present: warm and dry Neurologic: Present: alert and oriented x3 Psychiatric: Present: mood/affect appropriate, cooperative - Lab 09/17/16 04:42 09/17/16 04:42 Most recent lab results ABG pH 7.16 pH Units (7.32-7.45) L* 09/13/16 10:30 ABG pCO2 86 mmHg (35-45) H* 09/13/16 10:30 ABG pO2 91 mmHg (85-104) 09/13/16 10:30 ABG HCO3 30.7 mEQ/L (21-27) H 09/13/16 10:30 ABG O2 Saturation 94 % (95-98) L 09/13/16 10:30 Calcium 8.9 mg/dL (8.6-10.8) 09/17/16 04:42 Phosphorus 6.9 mg/dL (2.3-4.7) H 09/15/16 04:55 Magnesium 2.0 mg/dL (1.6-2.6) 09/15/16 04:55 Consult Discharge Plan - Plan Referrals: Arthur Pozo MD [Primary Care Provider] - 09/22/16 9:45 am (Please follow up as schedule...)
--- NOTE | 2016-09-17 12:34 | Cardiology Progress Note ---
Date of Encounter: 09/17/16 Time of Encounter: 12:30 Assessment and Plan (1) Atrial flutter with rapid ventricular response Current Visit: Yes Status: Acute Developed atrial flutter with RVR early 09/15/16. Avg HR over 24 hours was 100 bpm. Now atrial fibrillation hr in the 90's. On carvedilol 50 mg BID. Discussed with Dr. Chalino Carson, Convert amiodarone to oral once IV completed. Start heparin gtt for anticoagulation. I discussed anticoagulation with coumadin and he agrees. Previously on coumadin for DVT. CHADS VAsc=3. Indication , benefits, and adverse reactions discussed. Start coumadin pharmacy to dose. INR can be monitored at [facility]. Cardiology will make out-pt f/u in one -two weeks. Cardiology will sign off. Call with questions. (2) Nonischemic cardiomyopathy Current Visit: No Status: Chronic TTE showed reduced EF at 20%, moderate diastolic dysfunction, moderate RV hypokenesis, no pulmonary hypertension. There was a small pericardial effusion with no evidence of tamponade. EF mildly reduced from previous. EF 35% 01/2016. LHC several years ago showed normal coronaries. Cardiomyopathy thought to be secondary to uncontrolled hypertension. Net negative -5945 ml for stay. ESRD on dialysis. Continue low sodium diet. No concerning ventricular arrhythmia seen on telemetry. Fluid management per nephrology. Pt on dialysis. Out-pt f/u to discuss ICD placement. Continue bb. No michael-inhibitor d/t ESRD. (3) Elevated troponin Current Visit: No Status: Acute Mild troponin elevation 0.21, 0.13. Demand ischemia in the setting of respiratory failure and ESRD. Denies chest pain. Discussion w patient/family: The assessment and plan as outlined above was discussed with the patient and/or family members who expressed understanding and agreement. All questions were answered. Thank you for involving us in the care of your patient. Please call with any questions. Subjective Principal diagnosis: acute on chronic respiratory failure with hypoxia and hypercapnea Interval history: Patient denies chest pain or palpitations. Objective Vital Signs, Last 4 Hours Temp Pulse Resp BP Pulse Ox 09/17/16 11:18 97.5 F L 102 16 112/66 94 General: Conversant, No Apparent Distress HEENT: Atraumatic, Normocephaly, Mucus Membranes Moist Neck: No JVD, Normal carotid pulses Cardiac: Other (Irregularly irregular) Lungs: Normal Breath Sounds, No Wheeze, Rales, Rhonchi Neuro: Alert and responsive, No focal deficits noted Abdomen: Soft, Non-Tender Skin: No rashes noted on visualized skin Musculoskeletal: No Chest Wall Tenderness Extremities: No Clubbing, No Cyanosis, Normal Pulses, Other (1+ edema BLE , AV fistula with dressing LUE.) Results 09/17/16 04:42 09/17/16 04:42 Lab Results 09/16/16 09/16/16 09/16/16 15:31 15:31 22:57 WBC 6.5 Hgb 12.8 L Hct 41.1 Plt Count 151 INR 1.3 APTT 35.6 72.1 H D Sodium Potassium Chloride Carbon Dioxide BUN Creatinine Glucose Calcium 09/17/16 09/17/16 09/17/16 04:42 04:42 04:42 WBC 7.8 Hgb 11.9 L Hct 38.1 Plt Count 163 INR APTT 64.2 H Sodium 138 Potassium 4.8 H Chloride 98 Carbon Dioxide 23 BUN 53 H D Creatinine 7.83 H Glucose 157 H Calcium 8.9 Consult Discharge Plan - Plan Referrals: Arthur Pozo MD [Primary Care Provider] - 09/22/16 9:45 am (Please follow up as schedule...)
[2016-09-17] MEDS ORDERED: *HR* Amiodarone 200 MG TABLET PO SCH (12:45)
[2016-09-17] MEDS: Nicotine 21 MG PATCH.TD24 TD SCH (14:32)
[2016-09-17] MEDS: *HR* Amiodarone 200 MG TABLET PO SCH ×2 (14:32→20:49)
--- NOTE | 2016-09-17 16:26 | Internal Med Progress Note ---
Date of Encounter: 09/17/16 Time of Encounter: 13:00 - Assessment and plan (1) Atrial flutter with rapid ventricular response Current Visit: Yes Status: Acute Assessment and plan: PAtient went into atrial flutter with HR in the 120s on 09/15. Startd on coreg with minimal improvement. 09/16 he was started on amiodarone and heparin drip due to CHADs-Vasc of 3. Appreciate cardiology input. plan to stop amiodarone drip this afternoon and start oral amiodarone. continue coreg. (2) Acute on chronic respiratory failure with hypoxia and hypercapnia Current Visit: Yes Status: Acute Assessment and plan: Secondary to fluid overload after missing dialysis, acute systolic heart failure LVEF 35%, ZAINAB/OHS and COPD exacerbation. Patient known to be non compliant with medication and BIPAP. Echo 09/03/16: LVEF 20%. Dilated LV with concentric LV hypertrophy. Severe global LV systolic dysfunction. Probable moderate LV diastolic dysfunction. Midly dilated RV with moderate RV hypokinesis. LA mildly dilated. RA severely dilated. No pulmohary HTN. Small pericardial effusion without echogenic evidence of tamponade. Echo 01/28/16: EF 35%. Dilated RV. Reduced LV function. biventricular failure and pulmonary hypertension. Patient required mechanical intubation, levophed and ICU care on admission . He underwent hemodialysis with fluid removal and received nebs and symbicort with clinical improvement and was successfully extubated on 09/08. Post- extubation, patient refused BIPAP therapy and remained with respiratory acidosis but then he agreed to wear BIPAP mask. slowly clinically improving, he is now tolerating 3L NC well. continue nebs, symbicort, and coreg. (3) End stage renal disease on dialysis Current Visit: Yes Status: Chronic Assessment and plan: Nephrology input appreciated. 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 (4) Acute metabolic encephalopathy Current Visit: Yes Status: Acute Assessment and plan: improved. Multifactorial secondary to overmedication at home and respiratory acidosis due to noncompliance with BiPAP. ABG in the morning. (5) Fluid overload Current Visit: Yes Status: Acute Assessment and plan: plan as above Qualifiers: Hypervolemia type: unspecified Qualified Code(s): E87.70 - Fluid overload, unspecified (6) Acute systolic heart failure Current Visit: Yes Status: Acute Assessment and plan: plan as above (7) COPD exacerbation Current Visit: No Status: Acute Assessment and plan: plan as listed above (8) Diabetes mellitus type 2, uncontrolled, with complications Current Visit: No Status: Chronic Assessment and plan: fasting glucose is adequate. continue levemir, insulin sliding scale and diabetic diet. Qualifiers: Diabetes mellitus director long term care insulin use: with director long term care use Qualified Code( s): E11.8 - Type 2 diabetes mellitus with unspecified complications; E11.65 - Type 2 diabetes mellitus with hyperglycemia; Z79.4 - director long term care (current) use of insulin - Subjective Interval history: patient is sleeping but arouses easily. he reports mild cough and shortness of breath at exertion. No chest pain. - Constitutional Vitals: Temp Pulse Resp BP Pulse Ox 98.0 F 99 16 156/67 96 09/17/16 16:13 09/17/16 16:13 09/17/16 16:13 09/17/16 16:13 09/17/16 16:13 General appearance: Present: A&O X 3, morbidly obese, no acute distress. Absent : cooperative - Neck Neck exam general surgery: Present: supple, trachea midline. Absent: lymphadenopathy - Respiratory Respiratory exam: Present: decreased breath sounds (At lung bases.), rhonchi - Cardiovascular Cardiovascular exam: Present: RRR - GI/Abdominal GI/Abdominal exam: Present: normal bowel sounds, soft. Absent: distended, tenderness - Extremities Exam Extremities exam: Present: pedal edema (1+ lower extremity edema bilaterally.) - Back Exam Back exam: Absent: CVA tenderness (L), CVA tenderness (R) - Neurological Exam Neurological exam: Present: alert, oriented X3, no focal deficits. Absent: facial droop, speech deficit - Skin Skin exam: Absent: rash Internal Medicine: Result - Labs CBC & Chem 7: 09/17/16 04:42 09/17/16 04:42 Labs: Short CBC 09/17/16 Range/Units 04:42 WBC 7.8 (4.3-11.1) K/mcL Hgb 11.9 L (12.9-16.9) g/dL Hct 38.1 (37.5-50.1) % Plt Count 163 (140-400) K/mcL Neutrophils # 5.7 (1.6-8.9) K/mcL BMP 09/17/16 04:42 Sodium 138 Potassium 4.8 H Chloride 98 Carbon Dioxide 23 BUN 53 H D Creatinine 7.83 H Glucose 157 H Calcium 8.9 - ABG Interpretation ABG results: ABG ABG pH 7.16 pH Units (7.32-7.45) L* 09/13/16 10:30 ABG pCO2 86 mmHg (35-45) H* 09/13/16 10:30 ABG pO2 91 mmHg (85-104) 09/13/16 10:30 ABG O2 Saturation 94 % (95-98) L 09/13/16 10:30 PT/INR, D-dimer PT 14.1 Seconds (9.4-12.1) H 09/16/16 15:31 Consult Discharge Plan - Plan Referrals: Arthur Pozo MD [Primary Care Provider] - 09/22/16 9:45 am (Please follow up as schedule...)
[2016-09-17] MEDS ORDERED: *HR* Warfarin 5 MG TABLET PO ONE (18:00)
[2016-09-17] MEDS ORDERED: Warfarin perPT PO PRN (18:00)
[2016-09-18] MEDS: Heparin 25,000 UNIT/500 ML D5W 25,000 UNIT/500 ML MLS IVC SCH (01:15)
[2016-09-18 03:53] LABS: Basophils % 0.3 %; Eosinophils # 0.2 K/mcL (0.0-0.6); Eosinophils % 2.3 %; Hematocrit 37.5 % (37.5-50.1); Hemoglobin 11.5 g/dL (12.9-16.9); Immature Granulocytes % 0.5 % (0-4); Lymphocytes # 1.2 K/mcL (0.6-4.6); Lymphocytes % 16.1 %; Mean Corpuscular HGB Conc 30.7 g/dL (31.6-35.5); Mean Corpuscular Hemoglobin 26.6 pg (28.0-33.3); Mean Corpuscular Volume 86.8 fL (83.0-100.0); Mean Platelet Volume 10.3 fL (9.4-12.4); Monocytes # 0.7 K/mcL (0.0-1.3); Monocytes % 9.3 %; Neutrophils # 5.3 K/mcL (1.6-8.9); Platelet Count 146 K/mcL (140-400); Red Blood Count 4.32 M/mcL (4.19-5.50); Red Cell Distribution Width 15.7 % (11.5-14.5); Segmented Neutrophils % 71.5 %
[2016-09-18 04:00] LABS: INR 1.3; Prothrombin Time 13.9 Seconds (9.4-12.1)
[2016-09-18 04:09] LABS: Calcium 8.5 mg/dL (8.6-10.8); Potassium 5.3 mEq/L (3.5-4.5)
[2016-09-18] MEDS: Ipratropium/Albuterol Neb 3 ML IH SCH ×3 (04:28→16:48)
[2016-09-18 05:05] LABS: Activated Partial Thrombo Time 50.8 Seconds (26.0-36.0)
[2016-09-18] MEDS ORDERED: 0.9 % Sodium Chloride 250 ML IVC PRN (08:41)
--- NOTE | 2016-09-18 08:41 | Nephrology Progress Note ---
Date of Encounter: 09/18/16 Time of Encounter: 08:30 - Assessment and Plan (1) End stage renal disease on dialysis Current Visit: Yes Status: Chronic Acute on chronic respiratory failure. Aflutter now Afib/RVR. AR improved 98. ESRD. HD today, orders given. Keeping on MWF schedule. Subjective Principal diagnosis: acute on chronic respiratory failure with hypoxia and hypercapnea Interval history: Awake, oriented to person, place. Clear speech. States thinks going to nursing facility after HD for rehab. Objective - Vital Signs Vital signs: Vital Signs Temp Pulse Resp BP Pulse Ox 09/18/16 07:19 98.0 F 98 18 100/57 97 09/18/16 03:23 97.9 F 111 26 126/71 97 09/17/16 23:35 97.9 F 113 15 94 09/17/16 19:40 97.5 F L 112 16 117/65 95 09/17/16 19:22 97 09/17/16 16:13 98.0 F 99 16 156/67 96 09/17/16 15:30 97.5 F L 102 16 112/66 94 09/17/16 12:00 97.5 F L 102 16 112/66 94 09/17/16 11:18 97.5 F L 102 16 112/66 94 Intake and Output 09/17/16 09/18/16 09/18/16 23:59 07:59 15:59 Intake Total 1060 / 1060 160 / 160 Balance 1060 / 1060 160 / 160 Intake: IV Fluids 700 / 700 160 / 160 Amiodarone Drip Premix 200 / 200 360mg/200mL 360 mg In 200 ml @ 0.5 MG/MIN 16.667 mls/hr IVC [facility] Rx#: [id number] Heparin 25,000 UNIT/500 500 / 500 160 / 160 ML D5W 25,000 unit In 500 ml @ 14 UNIT/KG/HR 33. 831 mls/hr IVC .[id number] [facility] Rx#:[id number] Oral 360 / 360 Other: Meal Dinner Percent of Meal Consumed 100% Weight 123.7 kg Blood Glucose* 162 151 Patient Weight 09/18/16 23:59 Weight 123.7 kg - General Appearance General appearance: Present: well-developed, well-nourished, appears started age , obese EENT: Present: mucous membranes moist Neck: Present: no JVD Respiratory: Present: clear Cardiology: Present: edema, irregular rhythm Additional Comments: mild pitting knees down Gastrointestinal: Present: normoactive bowel sounds, no tenderness Integumentary: Present: warm and dry Neurologic: Present: alert and oriented x3 Psychiatric: Present: mood/affect appropriate, cooperative - Lab 09/18/16 03:15 09/18/16 03:15 Most recent lab results ABG pH 7.16 pH Units (7.32-7.45) L* 09/13/16 10:30 ABG pCO2 86 mmHg (35-45) H* 09/13/16 10:30 ABG pO2 91 mmHg (85-104) 09/13/16 10:30 ABG HCO3 30.7 mEQ/L (21-27) H 09/13/16 10:30 ABG O2 Saturation 94 % (95-98) L 09/13/16 10:30 Calcium 8.5 mg/dL (8.6-10.8) L 09/18/16 03:15 Phosphorus 6.9 mg/dL (2.3-4.7) H 09/15/16 04:55 Magnesium 2.1 mg/dL (1.6-2.6) 09/18/16 03:15 Consult Discharge Plan - Plan Referrals: Arthur Pozo MD [Primary Care Provider] - 09/22/16 9:45 am (Please follow up as schedule...)
[2016-09-18] MEDS: Insulin DETEMIR 100 UNIT/ML X5UNITS SQ SCH (08:46)
[2016-09-18] MEDS ORDERED: 0.9 % Sodium Chloride 2,000 ML ONE (11:45)
[2016-09-18] MEDS: Pregabalin 50 MG CAPSULE PO SCH ×2 (14:33→22:10)
[2016-09-18] MEDS: Insulin LISPRO 300 UNITS/3 ML VIAL SQ SCH ×4 (14:34→22:10)
[2016-09-18] MEDS: Calcium Acetate 667 MG CAPSULE PO SCH ×3 (14:34→17:41)
[2016-09-18] MEDS: *HR* Amiodarone 200 MG TABLET PO SCH (14:34)
[2016-09-18] MEDS: Nicotine 21 MG PATCH.TD24 TD SCH (14:35)
[2016-09-18] MEDS: Ammonium Lactate 30 APPL/225 GM BOTTLE TP SCH ×2 (14:35→22:11)
[2016-09-18] MEDS: Renal Vitamin 1 MG CAPSULE PO SCH (14:41)
[2016-09-18] MEDS ORDERED: *HR* Metoprolol 5 MG/5 ML VIAL IVP ONE ×2 (14:54→15:40)
[2016-09-18] MEDS: Tetrahydrozoline 15 ML BOTTLE LEFT EYE PRN (15:11)
[2016-09-18] MEDS: Tetrahydrozoline 15 ML BOTTLE RIGHT EYE PRN (15:11)
--- NOTE | 2016-09-18 17:41 | Internal Med Progress Note ---
Date of Encounter: 09/18/16 Time of Encounter: 14:00 - Assessment and plan (1) Atrial flutter with rapid ventricular response Current Visit: Yes Status: Acute Assessment and plan: Patient went into atrial flutter with HR in the 120s on 09/15. Startd on coreg with minimal improvement. 09/16 he was started on amiodarone with rapid control of heart rate and heparin drip due to CHADs-Vasc of 3. 09/17 amiodarone drip stopped and started on oral amiodarone. 09/18: After returning from HD, his heart rate has been on high 120s. 4600 L removed during HD. He received IV lopressor 10 mg IV with minimal improvement of heart rate. oral hydration. start amiodarone drip 0.5. continue coreg. front desk monitor. (2) Acute on chronic respiratory failure with hypoxia and hypercapnia Current Visit: Yes Status: Acute Assessment and plan: Secondary to fluid overload after missing dialysis, acute systolic heart failure LVEF 35%, ZAINAB/OHS and COPD exacerbation. Patient known to be non compliant with medication and BIPAP. Echo 09/03/16: LVEF 20%. Dilated LV with concentric LV hypertrophy. Severe global LV systolic dysfunction. Probable moderate LV diastolic dysfunction. Midly dilated RV with moderate RV hypokinesis. LA mildly dilated. RA severely dilated. No pulmohary HTN. Small pericardial effusion without echogenic evidence of tamponade. Echo 01/28/16: EF 35%. Dilated RV. Reduced LV function. biventricular failure and pulmonary hypertension. Patient required mechanical intubation, levophed and ICU care on admission . He underwent hemodialysis with fluid removal and received nebs and symbicort with clinical improvement and was successfully extubated on 09/08. Post- extubation, patient refused BIPAP therapy and remained with respiratory acidosis but then he agreed to wear BIPAP mask. slowly clinically improving, he is now tolerating 3L NC well. stop duonebs and albuterol. start xopenex and atrovent nebs. continue coreg. (3) End stage renal disease on dialysis Current Visit: Yes Status: Chronic Assessment and plan: Nephrology input appreciated. 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 (4) Acute metabolic encephalopathy Current Visit: Yes Status: Acute Assessment and plan: resolved. Multifactorial secondary to overmedication at home and respiratory acidosis due to noncompliance with BiPAP. (5) Fluid overload Current Visit: Yes Status: Acute Assessment and plan: plan as above Qualifiers: Hypervolemia type: unspecified Qualified Code(s): E87.70 - Fluid overload, unspecified (6) Acute systolic heart failure Current Visit: Yes Status: Acute Assessment and plan: plan as above (7) COPD exacerbation Current Visit: No Status: Acute Assessment and plan: plan as listed above (8) Diabetes mellitus type 2, uncontrolled, with complications Current Visit: No Status: Chronic Assessment and plan: fasting glucose is adequate. continue levemir, insulin sliding scale and diabetic diet. 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 No chest pain. - Constitutional Vitals: Temp Pulse Resp BP Pulse Ox 98.1 F 118 18 135/69 97 09/18/16 15:01 09/18/16 14:40 09/18/16 15:01 09/18/16 15:01 09/18/16 14:40 General appearance: Present: cooperative, A&O X 3, morbidly obese, no acute distress, answers questions appropriately - Respiratory Respiratory exam: Present: rhonchi - Cardiovascular Cardiovascular exam: Present: RRR - GI/Abdominal GI/Abdominal exam: Present: normal bowel sounds, soft. Absent: distended, tenderness - Extremities Exam Extremities exam: Present: pedal edema (1+ Le edema) - Back Exam Back exam: Absent: CVA tenderness (L), CVA tenderness (R) - Neurological Exam Neurological exam: Present: alert, oriented X3, no focal deficits, strengths equal and symetr throughout. Absent: facial droop, speech deficit - Skin Skin exam: Absent: rash Internal Medicine: Result - Labs CBC & Chem 7: 09/18/16 03:15 09/18/16 03:15 Labs: Short CBC 09/18/16 Range/Units 03:15 WBC 7.4 (4.3-11.1) K/mcL Hgb 11.5 L (12.9-16.9) g/dL Hct 37.5 (37.5-50.1) % Plt Count 146 (140-400) K/mcL Neutrophils # 5.3 (1.6-8.9) K/mcL BMP 09/18/16 03:15 Sodium 134 L Potassium 5.3 H Chloride 96 L Carbon Dioxide 22 BUN 66 H Creatinine 9.69 H Glucose 211 H Calcium 8.5 L - ABG Interpretation ABG results: ABG ABG pH 7.16 pH Units (7.32-7.45) L* 09/13/16 10:30 ABG pCO2 86 mmHg (35-45) H* 09/13/16 10:30 ABG pO2 91 mmHg (85-104) 09/13/16 10:30 ABG O2 Saturation 94 % (95-98) L 09/13/16 10:30 PT/INR, D-dimer PT 13.9 Seconds (9.4-12.1) H 09/18/16 03:15 Consult Discharge Plan - Plan Referrals: Arthur Pozo MD [Primary Care Provider] - 09/22/16 9:45 am (Please follow up as schedule...)
[2016-09-18] MEDS ORDERED: Levalbuterol Neb 0.63 MG/3 ML IH PRN (17:51)
[2016-09-18] MEDS ORDERED: *HR* Warfarin 5 MG TABLET PO ONE (18:00)
[2016-09-18] MEDS: Amiodarone Premix 360 MG/200 ML BAG IVC SCH (19:34)
[2016-09-18] MEDS: Ipratropium Neb 0.5 MG NEBULIZER IH SCH (19:44)
[2016-09-18] MEDS: Levalbuterol Neb 0.63 MG/3 ML IH SCH (19:44)
[2016-09-19] MEDS: Ipratropium Neb 0.5 MG NEBULIZER IH SCH ×2 (02:22→10:36)
[2016-09-19] MEDS: Levalbuterol Neb 0.63 MG/3 ML IH SCH ×2 (02:22→10:36)
[2016-09-19 03:44] LABS: Basophils % 0.5 %; Eosinophils # 0.2 K/mcL (0.0-0.6); Eosinophils % 2.1 %; Hematocrit 37.1 % (37.5-50.1); Hemoglobin 11.2 g/dL (12.9-16.9); Immature Granulocytes % 0.3 % (0-4); Lymphocytes # 1.1 K/mcL (0.6-4.6); Lymphocytes % 14.4 %; Mean Corpuscular HGB Conc 30.2 g/dL (31.6-35.5); Mean Corpuscular Hemoglobin 26.6 pg (28.0-33.3); Mean Corpuscular Volume 88.1 fL (83.0-100.0); Mean Platelet Volume 11.1 fL (9.4-12.4); Monocytes # 0.7 K/mcL (0.0-1.3); Monocytes % 9.7 %; Neutrophils # 5.3 K/mcL (1.6-8.9); Platelet Count 142 K/mcL (140-400); Red Blood Count 4.21 M/mcL (4.19-5.50); Red Cell Distribution Width 15.9 % (11.5-14.5)
[2016-09-19 03:50] LABS: INR 1.3; Prothrombin Time 14.3 Seconds (9.4-12.1)
[2016-09-19 03:55] LABS: Calcium 8.8 mg/dL (8.6-10.8); Potassium 5.1 mEq/L (3.5-4.5)
[2016-09-19] MEDS: Insulin DETEMIR 100 UNIT/ML X5UNITS SQ SCH ×2 (06:13→08:26)
[2016-09-19] MEDS: Amiodarone Premix 360 MG/200 ML BAG IVC SCH (06:25)
[2016-09-19] MEDS: Heparin 25,000 UNIT/500 ML D5W 25,000 UNIT/500 ML MLS IVC SCH ×2 (08:01→08:06)
[2016-09-19] MEDS: Insulin LISPRO 300 UNITS/3 ML VIAL SQ SCH ×2 (08:25→12:15)
[2016-09-19] MEDS: Calcium Acetate 667 MG CAPSULE PO SCH ×2 (08:26→12:46)
[2016-09-19] MEDS: Pregabalin 50 MG CAPSULE PO SCH (08:26)
[2016-09-19] MEDS: Renal Vitamin 1 MG CAPSULE PO SCH (08:26)
[2016-09-19] MEDS: Ammonium Lactate 30 APPL/225 GM BOTTLE TP SCH (08:27)
--- NOTE | 2016-09-19 08:34 | Nephrology Progress Note ---
Date of Encounter: 09/19/16 Time of Encounter: 08:20 - Assessment and Plan (1) End stage renal disease on dialysis Current Visit: Yes Status: Chronic Acute on chronic respiratory failure. Afib/RVR after HD yesterday. AR 98. ESRD. HD next on Wednesday.. Subjective Principal diagnosis: acute on chronic respiratory failure with hypoxia and hypercapnea Interval history: Sitting up in cahir, eating breakfast. States thinks going to nursing facility for rehab, states if not discharged, will sign out AMA, advised against doing that. Objective - Vital Signs Vital signs: Vital Signs Temp Pulse Resp BP Pulse Ox 09/19/16 08:18 89 94 09/19/16 07:49 98.0 F 90 17 155/40 95 09/19/16 05:09 98.0 F 92 16 119/72 95 09/18/16 23:21 98.5 F 109 16 113/73 97 09/18/16 20:11 98.3 F 116 17 122/84 96 09/18/16 20:00 119 17 96 09/18/16 15:01 98.1 F 18 135/69 09/18/16 14:40 98.5 F 118 18 127/81 97 09/18/16 14:00 125/59 09/18/16 13:45 135/59 09/18/16 13:30 139/57 09/18/16 13:15 123/58 09/18/16 13:00 99/55 09/18/16 12:45 121/45 09/18/16 12:30 110/46 09/18/16 12:15 102/47 09/18/16 12:00 121/52 09/18/16 11:45 128/57 09/18/16 11:30 108/55 09/18/16 11:15 100/52 09/18/16 11:00 104/52 09/18/16 10:45 99/52 09/18/16 10:30 119/66 09/18/16 10:15 109/54 09/18/16 10:00 110/67 09/18/16 09:45 126/61 09/18/16 09:30 98.3 F 18 125/65 Intake and Output 09/18/16 09/19/16 09/19/16 23:59 07:59 15:59 Intake Total 980 / 980 200 / 200 Balance 980 / 980 200 / 200 Intake: IV Fluids 200 / 200 Amiodarone Drip Premix 200 / 200 360mg/200mL 360 mg In 200 ml @ 0.5 MG/MIN 16.667 mls/hr IVC [facility] Rx#: [id number] Oral 980 / 980 Other: Meal Dinner Percent of Meal Consumed 100% Weight 121.4 kg Blood Glucose* 88 194 Patient Weight 09/19/16 23:59 Weight 121.4 kg - General Appearance General appearance: Present: well-developed, well-nourished, appears started age EENT: Present: mucous membranes moist Neck: Present: no JVD Respiratory: Present: clear Cardiology: Present: edema, irregular rhythm Gastrointestinal: Present: normoactive bowel sounds, no tenderness Integumentary: Present: warm and dry Neurologic: Present: alert and oriented x3 - Lab 09/19/16 03:24 09/19/16 03:24 Most recent lab results ABG pH 7.16 pH Units (7.32-7.45) L* 09/13/16 10:30 ABG pCO2 86 mmHg (35-45) H* 09/13/16 10:30 ABG pO2 91 mmHg (85-104) 09/13/16 10:30 ABG HCO3 30.7 mEQ/L (21-27) H 09/13/16 10:30 ABG O2 Saturation 94 % (95-98) L 09/13/16 10:30 Calcium 8.8 mg/dL (8.6-10.8) 09/19/16 03:24 Phosphorus 6.9 mg/dL (2.3-4.7) H 09/15/16 04:55 Magnesium 2.1 mg/dL (1.6-2.6) 09/18/16 03:15 Consult Discharge Plan - Plan Referrals: Arthur Pozo MD [Primary Care Provider] - 09/22/16 9:45 am (Please follow up as schedule...)
[2016-09-19] MEDS: Nicotine 21 MG PATCH.TD24 TD SCH (08:35)
[2016-09-19] MEDS ORDERED: *HR* Amiodarone 200 MG TABLET PO SCH (09:00)
[2016-09-19 10:51] VITALS: BP 151/57
--- NOTE | 2016-09-19 11:02 | Discharge Summary ---
Date of Encounter: 09/19/16 Time of Encounter: 11:00 - Discharge Diagnosis (1) Atrial flutter with rapid ventricular response Priority: Primary Status: Acute (2) Acute on chronic respiratory failure with hypoxia and hypercapnia Priority: Primary Status: Acute (3) End stage renal disease on dialysis Priority: Primary Status: Chronic (4) Acute metabolic encephalopathy Priority: Primary Status: Acute (5) Fluid overload Priority: Primary Status: Acute Qualifiers: Hypervolemia type: unspecified Qualified Code(s): E87.70 - Fluid overload, unspecified (6) Acute systolic heart failure Priority: Primary Status: Acute (7) COPD exacerbation Priority: Primary Status: Acute (8) Diabetes mellitus type 2, uncontrolled, with complications Priority: Secondary Status: Chronic Qualifiers: 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 petroleum terminal plant operator use Qualified Code( s): E11.8 - Type 2 diabetes mellitus with unspecified complications; E11.65 - Type 2 diabetes mellitus with hyperglycemia; Z79.4 - long term care social worker (current) use of insulin - Discharge Medications Prescriptions: Warfarin [Coumadin] 5 mg PO 1800 #30 tablet Home Medications: Insulin Glargine,Hum.rec.anlog [Lantus Solostar] 30 unit SQ BID #0 01/07/15 [ History] [place] Oil/[place]-3 Fatty Acids [Fish Oil 500 mg Softgel] 1 cap PO DAILY #0 [History] Rosuvastatin [Crestor] 20 mg PO DAILY tablet 01/08/15 [Rx] Carvedilol [Coreg] 50 mg PO BIDWM 01/24/16 [History] Duloxetine HCl [Cymbalta] 60 mg PO DAILY 01/24/16 [History] Lidocaine/Prilocaine CREAM [Emla] 1 appl TP AD PRN 01/24/16 [History] Pantoprazole Sodium [Protonix] 40 mg PO DAILY 01/24/16 [History] Renal Vitamin [Renal Caps Softgel] 1 mg PO DAILY 01/24/16 [History] Ammonium Lactate 1 appl TP BID 09/02/16 [History] Cinacalcet HCl [Sensipar] 60 mg PO DAILY 09/02/16 [History] hydrALAZINE [HydrALAZINE] 25 mg PO BID 09/02/16 [History] Amiodarone [Cordarone] 200 mg PO BID tablet 09/19/16 [Rx] Calcium Acetate [Phos-LO] 1,334 mg PO TIDWM capsule 09/19/16 [Rx] Docusate [Colace] 100 mg PO BID PRN #0 capsule 09/19/16 [Rx] Ipratropium Neb [Atrovent Neb] 0.5 mg IH TIDR inhsol 09/19/16 [Rx] Levalbuterol Neb [Xopenex Neb] 0.63 mg IH TIDR vial.neb 09/19/16 [Rx] Nicotine Patch [Nicoderm] 21 mg TD DAILY patch.td24 09/19/16 [Rx] Pregabalin [Lyrica] 50 mg PO BID capsule 09/19/16 [Rx] Tetrahydrozoline [Visine] 1 drop LEFT EYE QID PRN #0 bottle 09/19/16 [Rx] Tetrahydrozoline [Visine] 1 drop RIGHT EYE QID PRN #0 bottle 09/19/16 [Rx] Warfarin [Coumadin] 5 mg PO 1800 #30 tablet 09/19/16 [Rx] Allergies/Adverse Reactions: Allergies hydrocodone [From [place]] Allergy (Intermediate, Verified 09/14/16 14:52) Hives Procedures/tests Complete & Pending: Procedures Performed prior 72 hours Category Date Time Status EV venous imaging LE BI Routine Y 09/16/16 17:18 Completed Date of admission: 09/03/16 16:24 Primary care physician: Arthur Pozo MD Consults: 09/04/16 10:00 Consult to Dialysis [CONS] ONCE 09/07/16 08:45 Consult to Dialysis [CONS] ONCE 09/08/16 09:10 Consult to Psychiatry [CONS] Stat Consulting Provider: Psych[facility] [place] Reason for Consult: Assess for medical competency Time Notified: 09:10 Call Completed: Yes 09/09/16 08:15 Consult to Dialysis [CONS] ONCE 09/10/16 07:43 Consult to Hot Braider [CONS] Routine Reason for SW Consult: asked to place giovanny garcia 09/11/16 11:30 Consult to Dialysis [CONS] ONCE 09/14/16 09:00 Consult to Dialysis [CONS] ONCE 09/15/16 14:26 Consult to Cardiology [CONS] Routine Comment: Consulting Provider: Cardiology [place] Reason for Consult: a flutter, new onset, h/o severe systlic dysfunction and esrd on hd. betablocers hoe dose resumed. Call Completed: No 09/16/16 08:30 Consult to Dialysis [CONS] ONCE 09/17/16 10:33 Consult to Invasive Line Access Team [CONS] Routine Reason for Consult: Limited Vasc access Line Type: EPIV PICC line indications: Limited vascular access Time Notified: 10:34 Call Completed: Yes 09/18/16 08:45 Consult to Dialysis [CONS] ONCE - Patient Status Disposition: Transfer Inpatient Rehab Fac Condition: Good Functional capacity at discharge: independent ambulation Overall status at discharge: patient is progressing back to baseline - Discharge Instructions Instructions: How to Stop Smoking (DC), Chronic Obstructive Pulmonary Disease ( DC) Follow Up With: Arthur Pozo MD [Primary Care Provider] - 09/22/16 9:45 am (Please follow up as schedule...) - Diet and Activity Activity: as per physical therapy, wear oxygen at all times (2L NC to keep SaO2 betweem 90-92%) Diet: diabetic diet, low fat, low cholesterol, low salt diet, other (renal. 1.5 liters of fluid restriction a day) Interval History: denies any chest pain, palpitations or shortness of breath. He is eager to go to rehabilitation Center. Hospital course: Mr. Hatch is a 45 year old male with past medical history of end-stage renal disease on hemodialysis MWF, chronic systolic heart failure, nonischemic cardiomyopathy, COPD, ZAINAB, OHS, diabetes mellitus, tension and tobacco use who presents with a chief complaint of progressive shortness of breath. Patient known to be non compliant with medication and BIPAP. Patient admitted with diagnosis of acute on chronic respiratory failure secondary to fluid overload after missing dialysis, acute systolic heart failure LVEF 35%, ZAINAB/OHS and COPD exacerbation. Patient required mechanical intubation, levophed and ICU care on admission 09/03. He underwent hemodialysis with fluid removal and received nebs and symbicort with clinical improvement and was successfully extubated on 09/08. Post-extubation, patient refused BIPAP therapy and remained with respiratory acidosis but then he agreed to wear BIPAP mask. He continued to improvein the was doing well on via nasal cannula. Patient went into atrial flutter with HR in the 120s on 09/15. Started on coreg with minimal improvement. 09/16 he was started on amiodarone with rapid control of heart rate and heparin drip due to CHADs-Vasc of 3. He position to oral amiodarone with good heart rate controlled. The day before admission she went again into A. fib with RVR after returning from hemodialysis. He required a short period of amiodarone drip and was transitioned back to oral amiodarone with good control of his heart rate. Echo 09/03/16: LVEF 20%. Dilated LV with concentric LV hypertrophy. Severe global LV systolic dysfunction. Probable moderate LV diastolic dysfunction. Midly dilated RV with moderate RV hypokinesis. LA mildly dilated. RA severely dilated. No pulmohary HTN. Small pericardial effusion without echogenic evidence of tamponade. Echo 01/28/16: EF 35%. Dilated RV. Reduced LV function. biventricular failure and pulmonary hypertension. PLAN: Fluid restriction 1.5 L daily. Hemodialysis MWF. Weight loss program. - Time Spent with Patient Total time spent providing and/or coordinating discharge services: - Constitutional Vitals: Temp Pulse Resp BP Pulse Ox 97.9 F 89 17 151/57 99 09/19/16 10:41 09/19/16 10:41 09/19/16 10:41 09/19/16 10:41 09/19/16 10:41 General appearance: Present: cooperative, A&O X 3, morbidly obese, no acute distress, answers questions appropriately - Respiratory Respiratory exam: Present: rhonchi - Cardiovascular Cardiovascular exam: Present: RRR - GI/Abdominal GI/Abdominal exam: Present: normal bowel sounds, soft. Absent: distended, tenderness - Extremities Exam Extremities exam: Present: pedal edema (1+ LE edema) - Neurological Exam Neurological exam: Present: alert, oriented X3, no focal deficits - Skin Additional comments: chronic venous stasis skin changes.
--- NOTE | 2016-09-19 11:16 | Physician Discharge Referral ---
ExtendedCare Referral Info Transfer To: ECF Provider in Charge: kay Provider in Charge after Transfer: PCP Institutional Level of Care: Skilled - Diagnosis (1) Atrial flutter with rapid ventricular response Status: Acute (2) Acute on chronic respiratory failure with hypoxia and hypercapnia Status: Acute (3) End stage renal disease on dialysis Status: Chronic (4) Acute metabolic encephalopathy Status: Acute (5) Fluid overload Status: Acute (6) Acute systolic heart failure Status: Acute (7) COPD exacerbation Status: Acute (8) Diabetes mellitus type 2, uncontrolled, with complications Status: Chronic - Transfer Medications Prescriptions: Warfarin [Coumadin] 5 mg PO 1800 #30 tablet Home Medications: Insulin Glargine,Hum.rec.anlog [Lantus Solostar] 30 unit SQ BID #0 01/07/15 [ History] [place] Oil/[place]-3 Fatty Acids [Fish Oil 500 mg Softgel] 1 cap PO DAILY #0 [History] Rosuvastatin [Crestor] 20 mg PO DAILY tablet 01/08/15 [Rx] Carvedilol [Coreg] 50 mg PO BIDWM 01/24/16 [History] Duloxetine HCl [Cymbalta] 60 mg PO DAILY 01/24/16 [History] Lidocaine/Prilocaine CREAM [Emla] 1 appl TP AD PRN 01/24/16 [History] Pantoprazole Sodium [Protonix] 40 mg PO DAILY 01/24/16 [History] Renal Vitamin [Renal Caps Softgel] 1 mg PO DAILY 01/24/16 [History] Ammonium Lactate 1 appl TP BID 09/02/16 [History] Cinacalcet HCl [Sensipar] 60 mg PO DAILY 09/02/16 [History] hydrALAZINE [HydrALAZINE] 25 mg PO BID 09/02/16 [History] Amiodarone [Cordarone] 200 mg PO BID tablet 09/19/16 [Rx] Calcium Acetate [Phos-LO] 1,334 mg PO TIDWM capsule 09/19/16 [Rx] Docusate [Colace] 100 mg PO BID PRN #0 capsule 09/19/16 [Rx] Ipratropium Neb [Atrovent Neb] 0.5 mg IH TIDR inhsol 09/19/16 [Rx] Levalbuterol Neb [Xopenex Neb] 0.63 mg IH TIDR vial.neb 09/19/16 [Rx] Nicotine Patch [Nicoderm] 21 mg TD DAILY patch.td24 09/19/16 [Rx] Pregabalin [Lyrica] 50 mg PO BID capsule 09/19/16 [Rx] Tetrahydrozoline [Visine] 1 drop LEFT EYE QID PRN #0 bottle 09/19/16 [Rx] Tetrahydrozoline [Visine] 1 drop RIGHT EYE QID PRN #0 bottle 09/19/16 [Rx] Warfarin [Coumadin] 5 mg PO 1800 #30 tablet 09/19/16 [Rx] Allergies/Adverse Reactions: Allergies hydrocodone [From [place]] Allergy (Intermediate, Verified 09/14/16 14:52) Hives - Respiratory Orders Oxygen / L per min (2 L NC, keep SaO2 between 90-92%) Smoking Cessation: Smoking cessation has been advised. For more information, call the [employer] Tobacco Quit Line at 3-136-BBBJ-NOW. - Advance Directives Code Status: Full Code - Mobility Orders Ambulate - Rehabiliation Orders Rehab Potential: Good Rehab Orders: Evaluation for Physical Therapy, Evaluation for Occupational Therapy - Treatments List/Other: INR monitor: keep INR between 2 to 2.5 - Diet Orders No Added Salt (JOI), No Concentrated Sweets, Renal (fluid restriction 1.5 liters a day) CERTIFICATION: I certify that the transfer of the above named patient to an Extended Care Facility is necessary for the continuing treatment of the diagnosis listed. The above information is true and accurate reflection of patient's current condition. Confidential - Redisclosure prohibited without a patient's written consent.
== END 2016-09-19 15:05 | DRG 291 ==
LOC: EMEROO 01:51 → 2NENU 01:51 → ICNU 14:21 → SUATTDRO 16:24 → 2ANU 09-09 10:29 → 2NNU 09-16 16:42
PROVIDERS: ADMIT Internal Medicine; ATTEND Internal Medicine

== ENCOUNTER 2016-09-29 16:55 | Inpatient (IN) ==
[2016-09-29] MEDS ORDERED: *HR* OxyCODONE/APAP 5/325 TABLET PO ONE (19:47)
--- NOTE | 2016-09-29 19:55 | Emergency Department Note ---
Disposition Clinical Impression: Cellulitis, Atrial flutter Disposition: Admitted As Inpatient Condition: Fair Time of Disposition: 22:45 General Adult HPI - General Chief complaint: ED Abdominal Pain Stated complaint: Knot left side painful Time Seen by Provider: 09/29/16 19:05 Source: patient Mode of arrival: EMS Limitations: no limitations Nursing Notes Reviewed: Yes Vital Signs Reviewed: Yes - History of Present Illness HPI Narrative: 45-year-old gentleman with end-stage renal disease presents from dialysis with painful swollen area to his left lower flank that he believes began about one week ago. It has been gradually worsening for the past week. He states that prior to that he was released from the hospital about 10 days ago and was receiving subcutaneous heparin injections at that time. Since then, he has been receiving subcutaneous insulin injections, but they have been in his arm. He denies any other symptoms including fever or chills, nausea or vomiting, change in bowel movements or urination, other abdominal pain. He denies any drainage from the site or injury to the site. He is tachycardic on arrival, but denies any palpitations or chest pain. He notes that he did not take his medicine this morning because he was going to get dialysis this afternoon. He completed dialysis today, but is supposed to go back tomorrow to get further fluid off because he is still volume overloaded. Pain Scale: 10 - Related Data Home Medications Medication Instructions Recorded Confirmed Insulin Glargine,Hum.rec.anlog 30 unit SQ BID #0 01/07/15 09/29/16 [Lantus Solostar] [place] Oil/[place]-3 Fatty Acids 1 cap PO DAILY #0 01/07/15 09/29/16 [Fish Oil 500 mg Softgel] Carvedilol [Coreg] 50 mg PO BIDWM 01/24/16 09/29/16 Duloxetine HCl [Cymbalta] 60 mg PO DAILY 01/24/16 09/29/16 Lidocaine/Prilocaine CREAM [Emla] 1 appl TP AD PRN 01/24/16 09/29/16 Pantoprazole Sodium [Protonix] 40 mg PO DAILY 01/24/16 09/29/16 Renal Vitamin [Renal Caps Softgel] 1 mg PO DAILY 01/24/16 09/29/16 Ammonium Lactate 1 appl TP BID 09/02/16 09/29/16 Cinacalcet HCl [Sensipar] 60 mg PO DAILY 09/02/16 09/29/16 hydrALAZINE [HydrALAZINE] 25 mg PO BID 09/02/16 09/29/16 Tetrahydrozoline [Visine] 1 drop BOTH EYES QID PRN 09/29/16 09/29/16 Warfarin [Coumadin] 5 mg PO Q48H 09/29/16 09/29/16 Warfarin [Coumadin] 7.5 mg PO Q48H 09/29/16 09/29/16 Previous Rx's Medication Instructions Recorded Rosuvastatin [Crestor] 20 mg PO DAILY tablet 01/08/15 Amiodarone [Cordarone] 200 mg PO BID tablet 09/19/16 Calcium Acetate [Phos-LO] 1,334 mg PO TIDWM capsule 09/19/16 Docusate [Colace] 100 mg PO BID PRN #0 capsule 09/19/16 Ipratropium Neb [Atrovent Neb] 0.5 mg IH TIDR inhsol 09/19/16 Levalbuterol Neb [Xopenex Neb] 0.63 mg IH TIDR vial.neb 09/19/16 Nicotine Patch [Nicoderm] 21 mg TD DAILY patch.td24 09/19/16 Pregabalin [Lyrica] 50 mg PO BID capsule 09/19/16 Allergies Allergy/AdvReac Type Severity Reaction Status Date / Time hydrocodone [From [place]] Allergy Intermediate Hives Verified 09/29/16 16:59 All systems ED: reviewed and negative except as stated. Past Medical History - Past Medical History Attestation: Yes The following information was validated with the patient. Source: patient Medical history: Reports: arthritis, cardiomyopathy, CHF, COPD, diabetes, dialysis, GERD, hyperlipidemia, hypertension, osteoporosis, renal disease, other Surgical history: Reports: herniorrhaphy, vascular surgery, other Psychiatric history: Reports: anxiety, depression, other - Social History Smoking Status: Current every day smoker Smokeless Tobacco Status: No Alcohol use: Reports: none, unknown Drug use: Reports: marijuana, other Physical Exam - Head Head exam: atraumatic, normocephalic, normal inspection - Eye Eye exam: Present: normal appearance, PERRL, EOMI - ENT ENT exam: normal exam, normal oropharynx, mucous membranes moist - Neck Neck exam: Present: normal inspection, full ROM, trachea midline - Chest Chest inspection: Present: normal inspection, symmetric chest wall rise - Respiratory Diminished in the bilateral bases. Cardiovascular Cardiovascular exam: Present: regular rate, normal rhythm, normal heart sounds - Abdominal Exam There is a tender indurated area to the left lower flank. This is a 10 cm in its largest dimension. Overlying this there are chronic skin changes with possible mild cellulitis. Otherwise, the abdomen is benign. - Extremities Exam Fistula in place in the left arm. There is bilateral pedal edema and chronic changes. - Back Exam Back exam: Present: normal inspection, full ROM. Absent: tenderness, CVA tenderness (R), CVA tenderness (L) - Neurological Exam Neurological exam: Present: alert, oriented X3, CN II-XII intact - Psychiatric Psychiatric exam: Present: normal affect, normal mood - Skin Skin exam: Present: warm, dry, intact, normal color - General Limitations: no limitations General appearance: alert, in no apparent distress Course - Reevaluation(s) Reevaluation #1: Patient found to have left flank cellulitis on CT scan of the abdomen and pelvis. He remains in atrial flutter despite receiving his home Coreg. Blood pressure was good until he received metoprolol which dropped his blood pressure to 90 systolic. He has a history of amlodipine use at home and has calcium that is slightly below normal here. He will get IV calcium followed by diltiazem for rate control here. We will treat his cellulitis with Rocephin and vancomycin. He initially was refusing to stay, but does agree to stay at this time. Patient not receiving sepsis fluid bolus due to his tachycardia likely being due to his underlying arrhythmia and concern that he is already volume overloaded. Time: 22:43 Reevaluation #2: Accepted by Dr. Barker. Time: 00:27 Vital Signs Temperature 98.4 F 09/29/16 16:59 Pulse Rate 137 09/29/16 16:59 Respiratory Rate 20 09/29/16 16:59 Blood Pressure 136/74 09/29/16 16:59 O2 Sat by Pulse Oximetry 92 09/29/16 16:59 Temperature 98.4 F 09/29/16 16:59 Pulse Rate 118 09/29/16 23:49 Respiratory Rate 14 09/29/16 23:49 Blood Pressure 112/66 09/29/16 23:49 O2 Sat by Pulse Oximetry 93 09/29/16 23:49 Oxygen Delivery Oxygen Delivery Room Air Medical Decision Making - Medical Records Medical records reviewed: Yes I reviewed the patient's medical records. - Lab Data Lab results reviewed: Yes I reviewed the patient's lab results. Result diagrams: 09/29/16 20:01 09/29/16 20:01 Lab Results 09/29/16 09/29/16 09/29/16 Range/Units 20:01 20:01 20:01 WBC 7.9 (4.3-11.1) K/mcL RBC 4.25 (4.19-5.50) M/mcL Hgb 11.4 L (12.9-16.9) g/dL Hct 37.8 (37.5-50.1) % MCV 88.9 (83.0-100.0) fL MCH 26.8 L (28.0-33.3) pg MCHC 30.2 L (31.6-35.5) g/dL RDW 17.2 H (11.5-14.5) % Plt Count 114 L (140-400) K/mcL MPV 11.3 (9.4-12.4) fL Immature Gran % 0.4 (0-4) % Seg Neutrophils % 75.5 % Lymphocytes % 11.4 % Monocytes % 11.3 % Eosinophils % 0.9 % Basophils % 0.5 % Neutrophils # 5.9 (1.6-8.9) K/mcL Lymphocytes # 0.9 (0.6-4.6) K/mcL Monocytes # 0.9 (0.0-1.3) K/mcL Eosinophils # 0.1 (0.0-0.6) K/mcL Basophils # 0.0 (0.0-0.2) K/mcL PT 22.4 H (9.4-12.1) Seconds INR 2.0 Sodium 139 (136-145) mEq/L Potassium 4.2 (3.5-4.5) mEq/L Chloride 101 (98-109) mEq/L Carbon Dioxide 25 (19-29) mEq/L BUN 47 H (8-26) mg/dL Creatinine 7.65 H (0.72-1.25) mg/dL Est GFR ( Amer) 9 L (> 60) Est GFR (Non-Af Amer) 8 L (> 60) BUN/Creatinine Ratio 6 (6-26) Glucose 280 H (70-99) mg/dL Calculated Osmolality 310 H (280-300) Calcium 8.4 L (8.6-10.8) mg/dL Phosphorus 5.2 H (2.3-4.7) mg/dL Magnesium 2.1 (1.6-2.6) mg/dL Total Bilirubin 0.7 (0.2-1.2) mg/dL Direct Bilirubin 0.3 (0.0-0.5) mg/dL Indirect Bilirubin 0.4 (0.0-1.2) mg/dL AST 17 (5-34) Units/L ALT 23 (0-55) Units/L Alkaline Phosphatase 377 H (38-126) Units/L Troponin I (0-0.03) ng/mL Serum Total Protein 7.2 (6.0-8.3) g/dL Albumin 3.1 L (3.5-5.0) g/dL Globulin 4.1 H (2.4-3.5) g/dL Albumin/Globulin Ratio 0.8 L (1.1-2.2) 09/29/16 Range/Units 20:01 WBC (4.3-11.1) K/mcL RBC (4.19-5.50) M/mcL Hgb (12.9-16.9) g/dL Hct (37.5-50.1) % MCV (83.0-100.0) fL MCH (28.0-33.3) pg MCHC (31.6-35.5) g/dL RDW (11.5-14.5) % Plt Count (140-400) K/mcL MPV (9.4-12.4) fL Immature Gran % (0-4) % Seg Neutrophils % % Lymphocytes % % Monocytes % % Eosinophils % % Basophils % % Neutrophils # (1.6-8.9) K/mcL Lymphocytes # (0.6-4.6) K/mcL Monocytes # (0.0-1.3) K/mcL Eosinophils # (0.0-0.6) K/mcL Basophils # (0.0-0.2) K/mcL PT (9.4-12.1) Seconds INR Sodium (136-145) mEq/L Potassium (3.5-4.5) mEq/L Chloride (98-109) mEq/L Carbon Dioxide (19-29) mEq/L BUN (8-26) mg/dL Creatinine (0.72-1.25) mg/dL Est GFR ( Amer) (> 60) Est GFR (Non-Af Amer) (> 60) BUN/Creatinine Ratio (6-26) Glucose (70-99) mg/dL Calculated Osmolality (280-300) Calcium (8.6-10.8) mg/dL Phosphorus (2.3-4.7) mg/dL Magnesium (1.6-2.6) mg/dL Total Bilirubin (0.2-1.2) mg/dL Direct Bilirubin (0.0-0.5) mg/dL Indirect Bilirubin (0.0-1.2) mg/dL AST (5-34) Units/L ALT (0-55) Units/L Alkaline Phosphatase (38-126) Units/L Troponin I 0.11 H* (0-0.03) ng/mL Serum Total Protein (6.0-8.3) g/dL Albumin (3.5-5.0) g/dL Globulin (2.4-3.5) g/dL Albumin/Globulin Ratio (1.1-2.2) - Radiology Data Radiology results reviewed: Yes I reviewed the patient's radiology results. - EKG Data EKG #1 EKG attestation: Yes I reviewed and interpreted this EKG. EKG results narrative: EKG shows atrial flutter at [address] with normal axis. No ST elevation or depression. Nonspecific T-wave changes. Attestation Statement - Attestation Attestation: I personally interviewed and examined this patient and my medical decision- making was reviewed with the ED Resident Physician, Dr. Manuel. I agree with the documented findings, disposition and treatment plan as described except to the extent set forth below. Patient is a 45-year-old black male with multiple medical problems including end -stage renal disease on hemodialysis, coronary artery disease history of respiratory failure, who presents to the emergency department with complaints of a "knot" on his left side. Patient is currently in an extended care facility recovering from a long hospitalization following respiratory failure a few weeks ago. Patient arrives tachycardic with a heart rate in the 130s with a stable blood pressure on arrival to the ED and denies any chest pain pressure or heaviness, no shortness of breath, no abdominal pain, no fevers or chills. Patient reports that he was on dialysis today and they are bringing him back tomorrow in an attempt to take off more fluid. Patient states the only reason he came in is because of this knot on his side that is gradually hurting worse and becoming larger in size. Patient's in no respiratory distress on arrival. Patient's EKG shows atrial flutter with RVR. Patient's portal chest x-ray shows some mild pulmonary edema but unchanged from his prior chest x-ray at the end of his hospitalization. I agree with patient's physical exam findings as documented. On his exam and appears that he has a large area of induration, increased warmth to touch and redness to the left lower abdominal wall wrapping around the left side. There is no break in the skin or central abscess. Looks concerning for abdominal wall cellulitis versus abdominal wall abscess. Patient afebrile with stable blood pressure. Patient initially was refusing lab evaluation, refusing an IV, as he felt that he just wanted us to look at this knot in his side and wanted no other workup done. Patient had a prolonged ER course due to difficulty with patient complying along the way with interventions. Patient on CT scan has an abdominal wall cellulitis, no abscesses were seen. Patient started on IV antibiotics. We attempted rate control initially with a dose of Lopressor but this significantly reduced his blood pressure. Patient was then given calcium gluconate followed by Cardizem for rate control. Patient receiving calcium at this time and blood pressure improving. Wanted to avoid IV fluids as patient is already fluid overloaded. Troponin was elevated but this is chronically elevated with his renal insufficiency. Patient is denying any chest pain or symptoms his entire ED course. Continue to monitor heart rate and blood pressure closely and titrate Cardizem as needed. Patient will be sent to stepdown unit for further medical management , was admitted by the hospitalist.
[2016-09-29 20:14] LABS: Basophils % 0.5 %; Eosinophils # 0.1 K/mcL (0.0-0.6); Eosinophils % 0.9 %; Hematocrit 37.8 % (37.5-50.1); Hemoglobin 11.4 g/dL (12.9-16.9); Immature Granulocytes % 0.4 % (0-4); Lymphocytes # 0.9 K/mcL (0.6-4.6); Lymphocytes % 11.4 %; Mean Corpuscular HGB Conc 30.2 g/dL (31.6-35.5); Mean Corpuscular Hemoglobin 26.8 pg (28.0-33.3); Mean Corpuscular Volume 88.9 fL (83.0-100.0); Mean Platelet Volume 11.3 fL (9.4-12.4); Monocytes # 0.9 K/mcL (0.0-1.3); Monocytes % 11.3 %; Neutrophils # 5.9 K/mcL (1.6-8.9); Platelet Count 114 K/mcL (140-400); Red Blood Count 4.25 M/mcL (4.19-5.50); Red Cell Distribution Width 17.2 % (11.5-14.5); Segmented Neutrophils % 75.5 %
[2016-09-29 20:21] LABS: Prothrombin Time 22.4 Seconds (9.4-12.1)
[2016-09-29 20:28] LABS: Albumin 3.1 g/dL (3.5-5.0); Albumin/Globulin Ratio 0.8 (1.1-2.2); Bilirubin,Direct 0.3 mg/dL (0.0-0.5); Bilirubin,Indirect 0.4 mg/dL (0.0-1.2); Bilirubin,Total 0.7 mg/dL (0.2-1.2); Calcium 8.4 mg/dL (8.6-10.8); Globulin 4.1 g/dL (2.4-3.5); Magnesium 2.1 mg/dL (1.6-2.6); Phosphorous 5.2 mg/dL (2.3-4.7); Potassium 4.2 mEq/L (3.5-4.5); Total Protein 7.2 g/dL (6.0-8.3)
[2016-09-29] MEDS: *HR* Metoprolol 5 MG/5 ML VIAL IVP ONE ×2 (21:56→22:05)
[2016-09-29] MEDS ORDERED: Calcium Gluconate 1,000 MG in D5% in Water 100 ML IVPB ONE (22:16)
[2016-09-29] MEDS ORDERED: Vancomycin 1,750 MG in D5% in Water 500 ML IVPB ONE (23:00)
[2016-09-29] MEDS ORDERED: 0.9 % Sodium Chloride 500 ML IVC ONE (23:45)
[2016-09-30] MEDS ORDERED: 0.9 % Sodium Chloride 500 ML ONE (01:52)
--- NOTE | 2016-09-30 02:41 | Internal Med History&Physical ---
Date of Encounter: 09/30/16 Time of Encounter: 02:40 Assessment and Plan (1) Cellulitis of abdominal wall Current visit: Yes Status: Acute Posible cellulitis versus hematoma. Emperically treat with vancomycin and ceftriaxone (2) SVT (supraventricular tachycardia) Current visit: Yes Status: Acute Rate controlled with diltiazem. Echo from August 2016 showed EF of 20%. Cardiology consult (3) Diabetes mellitus Current visit: Yes Status: Chronic Sliding scale insulin Qualifiers: Diabetes mellitus type: type 2 Diabetes mellitus complication status: with kidney complications Diabetes mellitus complication detail: with chronic kidney disease Diabetes mellitus custodial insulin use: unspecified custodial insulin use status Chronic kidney disease stage: on chronic dialysis Qualified Code(s): E11.22 - Type 2 diabetes mellitus with diabetic chronic kidney disease; N18.6 - End stage renal disease (4) End stage renal disease on dialysis Current visit: Yes Status: Chronic Nephrology consult (5) DVT prophylaxis Current visit: Yes Status: Acute Heparin Internal Medicine - H&P: HPI Chief complaint: Knot on my abdomen Admitted From: Emergency Dept Plans for Post Hospital Care: Transfer [facility] History of present illness: Mr. Hatch is a 45 year old male with h/o CHF, COPD, diabetes, ESRD on HD ( [facility] [address] [facility]), GERD, hypertension, presents with h/o knot on my abdomen in the LLQ area / left lower flank that he believes began about one week ago. He reports that he has pain in that area and could not bear the pain anymore. Reports pain of 10/10 in the ER and improved after pain medications in the ER. He states that prior to that he was released from the hospital about 10 days ago and was receiving subcutaneous heparin injections at that time. Since then, he has been receiving subcutaneous insulin injections, but they have been in his arm. He denies any other symptoms including fever or chills, nausea or vomiting, change in bowel movements, chest pain or shortness of breath. He denies any drainage from the site or injury to the site. In the ER, He was given Rocephin and vancomycin, for suspected cellulitis (Per CT abdomen report) . He was noted to be tachycardic and was thought to have A flutter and was started on diltiazem infusion. He is admitted to the hospitalist service for further workup and management. Past Med Surg Social Fam HX - Past Medical History Medical history: arthritis, cardiomyopathy, CHF, COPD, diabetes, dialysis, GERD , hyperlipidemia, hypertension, osteoporosis, renal disease, other Psychiatric history: anxiety, depression, other - Past Surgical History Surgical History: herniorrhaphy, vascular surgery, other - Social History Smoking Status: Current every day smoker Smokeless Tobacco Status: No Alcohol use: none, unknown Drug use: marijuana, other - Family History Father Living Status: Age at : 84 Cause of : bladder infection Mother Adopted: No Living Status: Still Living Hx Family Cardiac Disorders: Yes Hx Family Endocrine Disorder: Yes Internal Medicine - H&P: Meds Insulin Glargine,Hum.rec.anlog [Lantus Solostar] 30 unit SQ BID #0 01/07/15 [ History] [place] Oil/[place]-3 Fatty Acids [Fish Oil 500 mg Softgel] 1 cap PO DAILY #0 [History] Rosuvastatin [Crestor] 20 mg PO DAILY tablet 01/08/15 [Rx] Carvedilol [Coreg] 50 mg PO BIDWM 01/24/16 [History] Duloxetine HCl [Cymbalta] 60 mg PO DAILY 01/24/16 [History] Lidocaine/Prilocaine CREAM [Emla] 1 appl TP AD PRN 01/24/16 [History] Pantoprazole Sodium [Protonix] 40 mg PO DAILY 01/24/16 [History] Renal Vitamin [Renal Caps Softgel] 1 mg PO DAILY 01/24/16 [History] Ammonium Lactate 1 appl TP BID 09/02/16 [History] Cinacalcet HCl [Sensipar] 60 mg PO DAILY 09/02/16 [History] hydrALAZINE [HydrALAZINE] 25 mg PO BID 09/02/16 [History] Amiodarone [Cordarone] 200 mg PO BID tablet 09/19/16 [Rx] Calcium Acetate [Phos-LO] 1,334 mg PO TIDWM capsule 09/19/16 [Rx] Docusate [Colace] 100 mg PO BID PRN #0 capsule 09/19/16 [Rx] Ipratropium Neb [Atrovent Neb] 0.5 mg IH TIDR inhsol 09/19/16 [Rx] Levalbuterol Neb [Xopenex Neb] 0.63 mg IH TIDR vial.neb 09/19/16 [Rx] Nicotine Patch [Nicoderm] 21 mg TD DAILY patch.td24 09/19/16 [Rx] Pregabalin [Lyrica] 50 mg PO BID capsule 09/19/16 [Rx] Tetrahydrozoline [Visine] 1 drop BOTH EYES QID PRN 09/29/16 [History] Warfarin [Coumadin] 5 mg PO Q48H 09/29/16 [History] Warfarin [Coumadin] 7.5 mg PO Q48H 09/29/16 [History] Allergies hydrocodone [From [place]] Allergy (Intermediate, Verified 09/29/16 16:59) Hives All Systems PM: A 10-system review of systems was performed and is negative for pertinent findings except as documented above in the HPI. - Constitutional Vitals: Temp Pulse Resp BP Pulse Ox 97.6 F 104 19 94/53 95 09/30/16 01:36 09/30/16 01:36 09/30/16 01:36 09/30/16 01:36 09/30/16 01:36 Exam: General: Not in acute distress at the time of my evaluation. Obese HEENT: Oral mucosa is moist. No scleral icterus Neck: No obvious neck swellings Lungs: Clear to auscultation Cardiac: Irregular rhythm. systolic murmur Abdomen: Abdominal wall swelling present. There is discoloration of the skin and tenderness present over the LLQ / flank. Bowel sounds present Genitourinary: No winter catheter Neurological: Alert and oriented. No gross localizing deficits Psych: Not aggressive or agitated Extremities: B/L leg edema Skin: No generalized rash Internal Med - H&P Results - Labs CBC & Chem 7: 09/29/16 20:01 09/29/16 20:01 - EKG Data -: EKG Interpreted by Myself - EKG Data EKG comments: supraventricular tachycardia with HR of 138 09/30/16 07:31 - Impressions ITS Impressions Chest X-Ray 09/29/16 19:30 IMPRESSION: Interval extubation removal of the NG tube. Low lung volume study. Stable mild vascular congestion. No focal lung opacity or consolidation. No large pleural effusions. No pneumothorax. Stable cardiomegaly. No acute osseous abnormality. RECOMMENDATION: Interval removal of the endotracheal tube and NG tube. No significant change compared to prior radiograph. Stable cardiomegaly with vascular congestion. D/ / Srini Fiore MD / Srini Fiore MD Interpreting Provider: Srini Fiore MD Abdomen/Pelvis CT 09/29/16 19:55 IMPRESSION: 1. Suboptimal examination due to lack of IV contrast and motion artifact. 2. Peripancreatic haziness may be related to motion artifact though correlate clinically for pancreatitis. 3. Diffusely sclerotic bones, may be secondary to renal osteodystrophy. However, compared to the prior study, there are new round lucent lesions in the L3 and L2 vertebral bodies which are nonspecific. While these may be secondary to underlying metabolic etiology, multiple myeloma or even metastasis cannot be excluded. 4. Left flank skin thickening with subcutaneous stranding/inflammation, suggestive of cellulitis. Otherwise no abdominal wall fluid collections to suggest abscess. 5. Small/moderate right pleural effusion and small perihepatic ascites. 6. Mild splenomegaly. 7. Small with slightly prominent linwood hepatis and retroperitoneal lymph nodes, may be reactive. 8. Nonspecific diffuse bladder wall thickening. D/ / 09/29/2016 22:03:59 Srini Fiore MD / lgray Interpreting Provider: Srini Fiore MD
[2016-09-30] MEDS ORDERED: Acetaminophen 325 MG TABLET PO PRN (06:42)
[2016-09-30] MEDS ORDERED: Naloxone 0.4 MG/ML INJ IVP PRN (06:42)
[2016-09-30] MEDS ORDERED: Vancomycin 1,750 MG in D5% in Water 250 ML IVPB SCH (07:00)
[2016-09-30] MEDS ORDERED: D5% in Water 1,000 ML IVC PRN (07:40)
[2016-09-30] MEDS ORDERED: Dextrose Gel 15 GM PO PRN ×2 (07:40)
[2016-09-30] MEDS ORDERED: *HR* Dextrose 50 % in Water (Syg) 50 ML SYRINGE IVP PRN (07:40)
[2016-09-30] MEDS ORDERED: Insulin LISPRO 300 UNITS/3 ML VIAL SQ SCH ×2 (07:45→21:00)
[2016-09-30] MEDS ORDERED: *HR* Heparin 5,000 UNIT/ML VIAL SQ SCH (08:00)
--- NOTE | 2016-09-30 08:36 | Nephrology Consult Note ---
Date of Encounter: 09/30/16 Time of Encounter: 08:33 Assessment and Plan (1) End stage renal disease on dialysis Current Visit: Yes Status: Chronic The patient has end-stage renal disease. He has chronic fluid overload in the setting of chronic systolic congestive heart failure and poor compliance with dialysis attendance as well as dietary fluid restriction. He did undergo an extra ultrafiltration yesterday. He will undergo routine dialysis today with additional aggressive volume removal as long as his blood pressure tolerates it. (2) Fluid overload Current Visit: No Status: Acute Qualifiers: Hypervolemia type: unspecified Qualified Code(s): E87.70 - Fluid overload, unspecified (3) Nonischemic cardiomyopathy Current Visit: No Status: Chronic (4) ZAINAB (obstructive sleep apnea) Current Visit: No Status: Chronic History of Present Illness - History of Present Illness This is a 45-year-old male with end-stage renal disease who receives dialysis every Wednesday and . Patient actually had an additional ultrafiltration session yesterday and Vicodin as an outpatient. Patient is admitted to the hospital with a one-week history of pain along the left side of his abdomen and flank. He has been diagnosed with cellulitis of the abdominal wall. Patient says it is tender and has been present for about a week. On exam he does have areas of induration likely related to chronic fluid overload. This may be complicated by cellulitis. I believe his been placed on empiric antibiotics. Otherwise he has no new complaints. Past Med Surg Social Fam HX - Past Medical History Medical history: arthritis, cardiomyopathy, CHF, COPD, diabetes, dialysis, GERD , hyperlipidemia, hypertension, osteoporosis, renal disease, other Psychiatric history: anxiety, depression, other - Past Surgical History Surgical History: herniorrhaphy, vascular surgery, other - Social History Smoking Status: Current every day smoker Smokeless Tobacco Status: No Alcohol use: none, unknown Drug use: marijuana, other - Family History Father Living Status: Age at : 84 Cause of : bladder infection Mother Adopted: No Living Status: Still Living Hx Family Cardiac Disorders: Yes Hx Family Endocrine Disorder: Yes Medications and Allergies Insulin Glargine,Hum.rec.anlog [Lantus Solostar] 30 unit SQ BID #0 01/07/15 [ History] [place] Oil/[place]-3 Fatty Acids [Fish Oil 500 mg Softgel] 1 cap PO DAILY #0 [History] Rosuvastatin [Crestor] 20 mg PO DAILY tablet 01/08/15 [Rx] Carvedilol [Coreg] 50 mg PO BIDWM 01/24/16 [History] Duloxetine HCl [Cymbalta] 60 mg PO DAILY 01/24/16 [History] Lidocaine/Prilocaine CREAM [Emla] 1 appl TP AD PRN 01/24/16 [History] Pantoprazole Sodium [Protonix] 40 mg PO DAILY 01/24/16 [History] Renal Vitamin [Renal Caps Softgel] 1 mg PO DAILY 01/24/16 [History] Ammonium Lactate 1 appl TP BID 09/02/16 [History] Cinacalcet HCl [Sensipar] 60 mg PO DAILY 09/02/16 [History] hydrALAZINE [HydrALAZINE] 25 mg PO BID 09/02/16 [History] Amiodarone [Cordarone] 200 mg PO BID tablet 09/19/16 [Rx] Calcium Acetate [Phos-LO] 1,334 mg PO TIDWM capsule 09/19/16 [Rx] Docusate [Colace] 100 mg PO BID PRN #0 capsule 09/19/16 [Rx] Ipratropium Neb [Atrovent Neb] 0.5 mg IH TIDR inhsol 09/19/16 [Rx] Levalbuterol Neb [Xopenex Neb] 0.63 mg IH TIDR vial.neb 09/19/16 [Rx] Nicotine Patch [Nicoderm] 21 mg TD DAILY patch.td24 09/19/16 [Rx] Pregabalin [Lyrica] 50 mg PO BID capsule 09/19/16 [Rx] Tetrahydrozoline [Visine] 1 drop BOTH EYES QID PRN 09/29/16 [History] Warfarin [Coumadin] 5 mg PO Q48H 09/29/16 [History] Warfarin [Coumadin] 7.5 mg PO Q48H 09/29/16 [History] Allergies hydrocodone [From [place]] Allergy (Intermediate, Verified 09/29/16 16:59) Hives Review of Systems Constitutional: as per HPI Eyes: bilateral: blurred vision (patient denies), diplopia (patient denies) Nose, mouth and throat: no dizziness, no headache(s) Cardiovascular: as per HPI, dyspnea on exertion, edema, irregular heart rhythm Respiratory: as per HPI, dyspnea, dyspnea on exertion Gastrointestinal: as per HPI, abdominal pain Musculoskeletal: no muscle weakness, no numbness Integumentary: as per HPI, skin pain Neurological: as per HPI Psychiatric: no depression, no difficulty concentrating Endocrine: as per HPI Hematologic/Lymphatic: no easy bruising, no lymphadenopathy Exam - Vital Signs Vital signs: Initial Vital Signs Temp Pulse Resp BP Pulse Ox 98.4 F 137 20 136/74 92 09/29/16 16:59 09/29/16 16:59 09/29/16 16:59 09/29/16 16:59 09/29/16 16:59 Vital Signs - Last 8 Hours Pulse Resp BP Pulse Ox 09/30/16 08:16 104 94 09/30/16 07:49 85 20 92/61 94 Intake and Output 09/29/16 09/30/16 09/30/16 23:59 07:59 15:59 Other: Blood Glucose* 125 - General Appearance Exam: The patient is alert and oriented. He is in no acute distress. Lungs breath sounds otherwise clear. Heart irregular rate and rhythm. Abdomen shows normal bowel sounds. There is areas of induration particularly the left lower quadrant and left flank area. There is some hyperpigmentation of that area as well as some mild tenderness. There is chronic lower extremity swelling with evidence of chronic venous stasis changes. There is diminished peripheral pulses in the lower extremities. There is a functioning AV graft in the left arm. Results - Lab Results 09/29/16 20:01 09/29/16 20:01 Most recent lab results Calcium 8.4 mg/dL (8.6-10.8) L 09/29/16 20: Phosphorus 5.2 mg/dL (2.3-4.7) H 09/29/16 20:01 Magnesium 2.1 mg/dL (1.6-2.6) 09/29/16 20:01 Consult Discharge Plan - Plan Referrals: Arthur Pozo MD [Primary Care Provider] -
[2016-09-30] MEDS ORDERED: 0.9 % Sodium Chloride 250 ML IVC PRN (08:37)
[2016-09-30] MEDS ORDERED: Lactobacillus 1 EACH CAP.SPRINK PO SCH (09:00)
--- NOTE | 2016-09-30 09:00 | Cardiology Consult Note ---
Date of Encounter: 09/30/16 Time of Encounter: 08:54 Assessment and Plan (1) Atrial fibrillation Current Visit: Yes Status: Acute Cardiology consulted for SVT. EKG shows Atrial fibrillation, HR 99 bpm.24 hour telemetry review shows avg HR 87 bpm. No runs of SVT or VT seen. Max R 110 bpm afib. Reported to have SVT during hospital course. Initially started on cardizem gtt and b/p dropped. SVT may have been triggered d/t patient missing morning carvedilol yesterday and fluid overload. Recommend avoiding cardizem in the setting of known severe systolic dysfunction. Continue carvedilol. Started on amiodarone last hospital stay on 09/16/16 for aflutter with RVR. Continue amiodarone 200 mg BID for one month and decrease to 200 mg daily as recommended. Also started on coumadin for AC. Denies signs of bleeding. INR 2.0 yesterday. Currently residing at [facility] and INR is being monitored there. Recommend restarting coumadin if no procedures scheduled. CT abdomen was negative for hematoma. Hgb stable. Qualifiers: Atrial fibrillation type: unspecified Qualified Code(s): I48.91 - Unspecified atrial fibrillation (2) Atrial flutter with rapid ventricular response Current Visit: No Status: Acute See plan above. Currently rate controlled atrial fibrillation. (3) CHF (congestive heart failure) Current Visit: No Status: Chronic TTE 09/03/16-showed reduced EF at 20%, moderate diastolic dysfunction, moderate RV hypokenesis, no pulmonary hypertension. There was a small pericardial effusion with no evidence of tamponade. EF mildly reduced from previous. EF 35% 01/2016. Likely reduced d/t tachycardia. H/o NICMP. LHC several years ago showed normal coronaries. Cardiomyopathy thought to be secondary to uncontrolled hypertension. ESRD on dialysis. Fluid overload on exam. CHF teaching reviewed. Continue low sodium diet. Fluid management per nephrology. Pt on dialysis. Out-pt f/u to discuss ICD placement. Continue bb. No michael-inhibitor d/t ESRD. Qualifiers: Congestive heart failure type: combined Congestive heart failure chronicity : chronic Qualified Code(s): I50.42 - Chronic combined systolic (congestive) and diastolic (congestive) heart failure Discussion w patient/family: The assessment and plan as outlined above was discussed with the patient and/or family members who expressed understanding and agreement. All questions were answered. Thank you for involving us in the care of your patient. Please call with any questions. History of Present Illness Consult date: 09/30/16 Requesting physician: Latrice Friend Consult reason: SVT Chief complaint: Flank pain. History of present illness: Mr. Hatch is a 45 year-old male with history of NICMP EF 20%, recent diagnosis of aflutter/ afib on coumadin, HTN, DMII, hyperlipidemia, DVT , ESRD on dialysis, and tobacco abuse. He presented with pain in his left flank area. He was diagnosed with cellulitis likely from heparin injections he received during recent hospital stay. Cardiology consulted for SVT. Patient states he did not take his medications before dialysis and then he was sent to the hospital. He required cardizem gtt overnight. He is now rate controlled on his home medications. He was also noted to be in fluid overload. He was planning to have more fluid removed during dialysis today. Cardiology consulted for SVT. Previous cardiac reports: TTE 09/03/16 showed reduced EF at 20%, moderate diastolic dysfunction, moderate RV hypokenesis, no pulmonary hypertension. There was a small pericardial effusion with no evidence of tamponade. EF mildly reduced from previous. EF 35% 01/2016. LHC several years ago showed normal coronaries. Cardiomyopathy thought to be secondary to uncontrolled hypertension. He denies chest pain. Denies history of atrial flutter. He denies symptoms with his atrial flutter. Past Med Surg Social Fam HX - Past Medical History Medical history: arthritis, cardiomyopathy, CHF, COPD, diabetes, dialysis, GERD , hyperlipidemia, hypertension, osteoporosis, renal disease, other Psychiatric history: anxiety, depression, other - Past Surgical History Surgical History: herniorrhaphy, vascular surgery, other - Social History Smoking Status: Current every day smoker Smokeless Tobacco Status: No Alcohol use: none, unknown Drug use: marijuana, other - Family History Father Living Status: Age at : 84 Cause of : bladder infection Mother Adopted: No Living Status: Still Living Hx Family Cardiac Disorders: Yes Hx Family Endocrine Disorder: Yes Medications and Allergies Insulin Glargine,Hum.rec.anlog [Lantus Solostar] 30 unit SQ BID #0 01/07/15 [ History] [place] Oil/[place]-3 Fatty Acids [Fish Oil 500 mg Softgel] 1 cap PO DAILY #0 [History] Rosuvastatin [Crestor] 20 mg PO DAILY tablet 01/08/15 [Rx] Carvedilol [Coreg] 50 mg PO BIDWM 01/24/16 [History] Duloxetine HCl [Cymbalta] 60 mg PO DAILY 01/24/16 [History] Lidocaine/Prilocaine CREAM [Emla] 1 appl TP AD PRN 01/24/16 [History] Pantoprazole Sodium [Protonix] 40 mg PO DAILY 01/24/16 [History] Renal Vitamin [Renal Caps Softgel] 1 mg PO DAILY 01/24/16 [History] Ammonium Lactate 1 appl TP BID 09/02/16 [History] Cinacalcet HCl [Sensipar] 60 mg PO DAILY 09/02/16 [History] hydrALAZINE [HydrALAZINE] 25 mg PO BID 09/02/16 [History] Amiodarone [Cordarone] 200 mg PO BID tablet 09/19/16 [Rx] Calcium Acetate [Phos-LO] 1,334 mg PO TIDWM capsule 09/19/16 [Rx] Docusate [Colace] 100 mg PO BID PRN #0 capsule 09/19/16 [Rx] Ipratropium Neb [Atrovent Neb] 0.5 mg IH TIDR inhsol 09/19/16 [Rx] Levalbuterol Neb [Xopenex Neb] 0.63 mg IH TIDR vial.neb 09/19/16 [Rx] Nicotine Patch [Nicoderm] 21 mg TD DAILY patch.td24 09/19/16 [Rx] Pregabalin [Lyrica] 50 mg PO BID capsule 09/19/16 [Rx] Tetrahydrozoline [Visine] 1 drop BOTH EYES QID PRN 09/29/16 [History] Warfarin [Coumadin] 5 mg PO Q48H 09/29/16 [History] Warfarin [Coumadin] 7.5 mg PO Q48H 09/29/16 [History] Allergies hydrocodone [From [place]] Allergy (Intermediate, Verified 09/29/16 16:59) Hives All Systems Review: A 10-system review of systems was performed and is negative for pertinent findings except as documented above in the HPI. Physical Examination Vital Signs, Last 4 Hours Pulse Resp BP Pulse Ox 09/30/16 08:16 104 94 09/30/16 07:49 85 20 92/61 94 General: Conversant, No Apparent Distress HEENT: Atraumatic, Normocephaly, Mucus Membranes Moist Neck: No JVD, Normal carotid pulses Cardiac: Other (Irregularly irregular) Lungs: No Wheeze, Rales, Rhonchi, Other (Lungs diminished throughout.) Neuro: Alert and responsive, No focal deficits noted Abdomen: Soft, Other (Distended with 1+ pitting edema. ) Skin: Other (BLE with purplish discoloration. ) Musculoskeletal: No Chest Wall Tenderness Extremities: No Clubbing, No Cyanosis, No Edema, Normal Pulses, Other (2+ BLE pitting edema up to abdomen. ) Results 09/29/16 20:01 09/29/16 20:01 - Imaging and Cardiology Echo: report reviewed - EKG Interpretation EKG results cardiology: personally reviewed Consult Discharge Plan - Plan Referrals: Arthur Pozo MD [Primary Care Provider] -
--- NOTE | 2016-09-30 12:57 | Event Note ---
Date of Encounter: 09/30/16 Time of Encounter: 11:45 Evaluated patient while he was in dialysis. Currently feels much better. Denies any chest pain. He is very somnolent at this time is able to answer questions well. Cardiology consult appreciated. We will follow recommendations. Continue antibiotics for left flank cellulitis.
[2016-09-30] MEDS ORDERED: Tetrahydrozoline 15 ML BOTTLE BOTH EYES PRN (15:01)
[2016-09-30] MEDS ORDERED: Nicotine 21 MG PATCH.TD24 TD PRN (15:03)
[2016-09-30 16:11] VITALS: BP 122/76
--- NOTE | 2016-09-30 16:12 | Discharge Summary ---
Date of Encounter: 09/30/16 Time of Encounter: 16:10 - Discharge Diagnosis (1) Cellulitis of abdominal wall Priority: Primary Status: Acute (2) Atrial fibrillation Priority: Secondary Status: Acute Qualifiers: Atrial fibrillation type: paroxysmal Qualified Code(s): I48.0 - Paroxysmal atrial fibrillation (3) Atrial flutter with rapid ventricular response Priority: Secondary Status: Acute (4) CHF (congestive heart failure) Priority: Secondary Status: Chronic Qualifiers: Congestive heart failure type: combined Congestive heart failure chronicity : chronic Qualified Code(s): I50.42 - Chronic combined systolic (congestive) and diastolic (congestive) heart failure (5) Diabetes mellitus Priority: Secondary Status: Chronic Qualifiers: Diabetes mellitus type: type 2 Diabetes mellitus complication status: with kidney complications Diabetes mellitus complication detail: with chronic kidney disease Diabetes mellitus intermediate frame tender insulin use: unspecified intermediate frame tender insulin use status Chronic kidney disease stage: on chronic dialysis Qualified Code(s): E11.22 - Type 2 diabetes mellitus with diabetic chronic kidney disease; N18.6 - End stage renal disease (6) End stage renal disease on dialysis Priority: Secondary Status: Chronic - Discharge Medications Prescriptions: cephALEXin [Cephalexin] 500 mg PO BID 4 Days Pregabalin [Lyrica] 50 mg PO BID #14 capsule Home Medications: Insulin Glargine,Hum.rec.anlog [Lantus Solostar] 30 unit SQ BID #0 01/07/15 [ History] [place] Oil/[place]-3 Fatty Acids [Fish Oil 500 mg Softgel] 1 cap PO DAILY #0 [History] Rosuvastatin [Crestor] 20 mg PO DAILY tablet 01/08/15 [Rx] Carvedilol [Coreg] 50 mg PO BIDWM 01/24/16 [History] Duloxetine HCl [Cymbalta] 60 mg PO DAILY 01/24/16 [History] Lidocaine/Prilocaine CREAM [Emla] 1 appl TP AD PRN 01/24/16 [History] Pantoprazole Sodium [Protonix] 40 mg PO DAILY 01/24/16 [History] Renal Vitamin [Renal Caps Softgel] 1 mg PO DAILY 01/24/16 [History] Ammonium Lactate 1 appl TP BID 09/02/16 [History] Cinacalcet HCl [Sensipar] 60 mg PO DAILY 09/02/16 [History] hydrALAZINE [HydrALAZINE] 25 mg PO BID 09/02/16 [History] Amiodarone [Cordarone] 200 mg PO BID tablet 09/19/16 [Rx] Calcium Acetate [Phos-LO] 1,334 mg PO TIDWM capsule 09/19/16 [Rx] Docusate [Colace] 100 mg PO BID PRN #0 capsule 09/19/16 [Rx] Ipratropium Neb [Atrovent Neb] 0.5 mg IH TIDR inhsol 09/19/16 [Rx] Levalbuterol Neb [Xopenex Neb] 0.63 mg IH TIDR vial.neb 09/19/16 [Rx] Nicotine Patch [Nicoderm] 21 mg TD DAILY patch.td24 09/19/16 [Rx] Tetrahydrozoline [Visine] 1 drop BOTH EYES QID PRN 09/29/16 [History] Warfarin [Coumadin] 5 mg PO Q48H 09/29/16 [History] Warfarin [Coumadin] 7.5 mg PO Q48H 09/29/16 [History] Pregabalin [Lyrica] 50 mg PO BID #14 capsule 09/30/16 [Rx] cephALEXin [Cephalexin] 500 mg PO BID 4 Days 09/30/16 [Rx] Allergies/Adverse Reactions: Allergies hydrocodone [From [place]] Allergy (Intermediate, Verified 09/29/16 16:59) Hives Date of admission: 09/30/16 06:42 Primary care physician: Arthur Pozo MD Consults: 09/30/16 06:45 Consult to Cardiology [CONS] Routine Comment: Consulting Provider: Cardiology Soheila Reason for Consult: SVT Call Completed: No Consult to Nephrology [CONS] Routine Consulting Provider: [facility] LILIYA Reason for Consult: ESRD on HD Call Completed: No 09/30/16 08:45 Consult to Dialysis [CONS] ONCE Discharging clinician: Latrice Friend Anticipated date of discharge: 09/30/16 - Patient Status Disposition: Transfer SNF Condition: Good Functional capacity at discharge: uses cane/walker Overall status at discharge: patient is progressing back to baseline - Discharge Instructions Instructions: Cellulitis (DC), Diabetes Mellitus Type 2 in Adults (DC) Follow Up With: Arthur Pozo MD [Primary Care Provider] - (in 1-2 weeks) - Diet and Activity Activity: as per physical therapy Diet: diabetic diet, low fat, low cholesterol, low salt diet, other (renal) Hospital course: Mr. Hatch is a 45 year old male patient who was admitted here with left-sided abdominal/flank wall cellulitis/hematoma along with A. fib which was initially uncontrolled. Patient was started on antibiotics after a CT scan of his abdomen and pelvis showed possible infiltrate changes in his left flank wall. He was also placed on IV Cardizem initially for his A. fib. He was monitored in the hospital and then cardiology evaluated him. By then his heart rate has improved. He was placed back on the amiodarone and Coumadin. He will continue taking amiodarone 200 mg twice daily for 1 month and then transition to amiodarone 200 mg once daily. He is feeling much better today and wishes to go home. He can continue to take antibiotics at the senior care to complete a short course of treatment. On examination he does not appear to have much inflammatory changes and it mostly more likely is hematoma related to his recent hospitalization and heparin shots that he received. He will be discharged to the senior care today as he has improved much quicker than expected. - Time Spent with Patient Total time spent providing and/or coordinating discharge services: Less than 30 minutes (25 min) - Constitutional Vitals: Temp Pulse Resp BP Pulse Ox 97.6 F 104 22 97/58 94 09/30/16 10:30 09/30/16 14:27 09/30/16 10:30 09/30/16 15:00 09/30/16 08:16 General appearance: Present: cooperative, A&O X 3, no acute distress, answers questions appropriately - Respiratory Respiratory exam: Present: CTAB. Absent: accessory muscle use, rales, rhonchi, wheezes - Cardiovascular Cardiovascular exam: Present: RRR, +S1, +S2. Absent: diastolic murmur, gallop, rubs, systolic murmur - GI/Abdominal GI/Abdominal exam: Present: normal bowel sounds, soft, no peritoneal signs. Absent: distended, tenderness - Extremities Exam Extremities exam: Present: warm, radial pulses palpable and symetrical. Absent : calf tenderness, cyanotic, pedal edema - Skin Skin exam: Present: dry, intact Additional comments: Mild discoloration over the left lower quadrant/flank. Nontender to palpation - Attending Attestation This document has been at least partially created by [employer] recognition technology by Dr. Friend. Errors in grammar, wording or other phrases may exist. If errors are found after the documentation is signed, they will be addressed individually in the addendum section of this document when appropriate.
--- NOTE | 2016-09-30 16:21 | Physician Discharge Referral ---
ExtendedCare Referral Info Provider in Charge after Transfer: PCP Institutional Level of Care: Skilled - Diagnosis (1) Cellulitis of abdominal wall Priority: Primary Status: Acute (2) Atrial fibrillation Priority: Secondary Status: Acute (3) Atrial flutter with rapid ventricular response Priority: Secondary Status: Acute (4) CHF (congestive heart failure) Priority: Secondary Status: Chronic (5) Diabetes mellitus Priority: Secondary Status: Chronic (6) End stage renal disease on dialysis Priority: Secondary Status: Chronic Prognosis: Fair Aware of Diagnosis: Patient Aware of Prognosis: Patient - Transfer Medications Prescriptions: cephALEXin [Cephalexin] 500 mg PO BID 4 Days Home Medications: Insulin Glargine,Hum.rec.anlog [Lantus Solostar] 30 unit SQ BID #0 01/07/15 [ History] [place] Oil/[place]-3 Fatty Acids [Fish Oil 500 mg Softgel] 1 cap PO DAILY #0 [History] Rosuvastatin [Crestor] 20 mg PO DAILY tablet 01/08/15 [Rx] Carvedilol [Coreg] 50 mg PO BIDWM 01/24/16 [History] Duloxetine HCl [Cymbalta] 60 mg PO DAILY 01/24/16 [History] Lidocaine/Prilocaine CREAM [Emla] 1 appl TP AD PRN 01/24/16 [History] Pantoprazole Sodium [Protonix] 40 mg PO DAILY 01/24/16 [History] Renal Vitamin [Renal Caps Softgel] 1 mg PO DAILY 01/24/16 [History] Ammonium Lactate 1 appl TP BID 09/02/16 [History] Cinacalcet HCl [Sensipar] 60 mg PO DAILY 09/02/16 [History] hydrALAZINE [HydrALAZINE] 25 mg PO BID 09/02/16 [History] Amiodarone [Cordarone] 200 mg PO BID tablet 09/19/16 [Rx] Calcium Acetate [Phos-LO] 1,334 mg PO TIDWM capsule 09/19/16 [Rx] Docusate [Colace] 100 mg PO BID PRN #0 capsule 09/19/16 [Rx] Ipratropium Neb [Atrovent Neb] 0.5 mg IH TIDR inhsol 09/19/16 [Rx] Levalbuterol Neb [Xopenex Neb] 0.63 mg IH TIDR vial.neb 09/19/16 [Rx] Nicotine Patch [Nicoderm] 21 mg TD DAILY patch.td24 09/19/16 [Rx] Pregabalin [Lyrica] 50 mg PO BID capsule 09/19/16 [Rx] Tetrahydrozoline [Visine] 1 drop BOTH EYES QID PRN 09/29/16 [History] Warfarin [Coumadin] 5 mg PO Q48H 09/29/16 [History] Warfarin [Coumadin] 7.5 mg PO Q48H 09/29/16 [History] cephALEXin [Cephalexin] 500 mg PO BID 4 Days 09/30/16 [Rx] Allergies/Adverse Reactions: Allergies hydrocodone [From [place]] Allergy (Intermediate, Verified 09/29/16 16:59) Hives - Respiratory Orders Oxygen / L per min (keep sats >90%) Smoking Cessation: Smoking cessation has been advised. For more information, call the [employer] Tobacco Quit Line at 2-905-SKVW-NOW. - Ancillary Orders May use pressure relief devices daily prn, May consult with Dentist, Mortuary Operations Manager, Mine Manager PRN - Advance Directives Code Status: Full Code - Mobility Orders Ambulate (per PT) - Rehabiliation Orders Rehab Potential: Fair Rehab Orders: Evaluation for Physical Therapy, Evaluation for Occupational Therapy - Diet Orders No Concentrated Sweets, Cardiac (and diabetic) CERTIFICATION: I certify that the transfer of the above named patient to an Extended Care Facility is necessary for the continuing treatment of the diagnosis listed. The above information is true and accurate reflection of patient's current condition. Confidential - Redisclosure prohibited without a patient's written consent.
[2016-09-30] MEDS ORDERED: 0.9 % Sodium Chloride 2,000 ML ONE (16:30)
--- NOTE | 2016-09-30 16:40 | Electrocardiograph Report ---
[address] [address] Test Date: 2016-09-29 Pat Name: Eduar Hatch Department: 102 Room: 2N13 Gender: M Be[employer] Trapper: Fan : 1970 Requested By: Constantine Manuel Order Number: [id number] Reading MD: Mago Carson Measurements Intervals [place] Rate: 138 P: [place]: 0 QRS: 80 QRSD: 88 T: 59 QT: 324 QTc: 405 Interpretive Statements ATRIAL FLUTTER/TACHYCARDIA WITH RAPID VENTRICULAR RESPONSE LOW QRS VOLTAGE IN EXTREMITY LEADS [QRS DEFLECTION < 0.5 mV IN LIMB LEADS] MODERATE ST DEPRESSION [0.05+ mV ST DEPRESSION] Electronically Signed On 09-30-2016 16:38:09 EDT by Mago Carson
[2016-09-30] MEDS ORDERED: Calcium Acetate 667 MG CAPSULE PO SCH (17:00)
[2016-09-30] MEDS ORDERED: Aminoglycoside Consult 1 EACH MC ONE (17:29)
[2016-09-30] MEDS ORDERED: *HR* Warfarin 7.5 MG TABLET PO SCH (18:00)
[2016-09-30] MEDS ORDERED: Levalbuterol Neb 0.63 MG/3 ML IH SCH (18:00)
[2016-09-30] MEDS ORDERED: Ipratropium Neb 0.5 MG NEBULIZER IH SCH (18:00)
[2016-09-30] MEDS ORDERED: Pregabalin 50 MG CAPSULE PO SCH (21:00)
[2016-09-30] MEDS ORDERED: Insulin DETEMIR 100 UNIT/ML X5UNITS SQ SCH (21:00)
[2016-09-30] MEDS ORDERED: *HR* Amiodarone 200 MG TABLET PO SCH (21:00)
[2016-09-30] MEDS ORDERED: Ammonium Lactate 30 APPL/225 GM BOTTLE TP SCH (21:00)
[2016-09-30] MEDS ORDERED: hydrALAZINE 25 MG TABLET PO SCH (21:00)
[2016-10-01] MEDS ORDERED: (Salmon Oil/Omega-3 Fatty Acids [Fish Oil 500 Mg Soft) PO SCH (09:00)
[2016-10-01] MEDS ORDERED: Renal Vitamin 1 MG CAPSULE PO SCH (09:00)
[2016-10-01] MEDS ORDERED: Nicotine 21 MG PATCH.TD24 TD SCH (09:00)
[2016-10-01] MEDS ORDERED: *HR* Warfarin 5 MG TABLET PO SCH (18:00)
== END 2016-09-30 17:30 | DRG 602 ==
LOC: 2NNU 16:55 → EMEROO 16:55 → 2NNU 09-30 01:08
PROVIDERS: ADMIT Internal Medicine; ATTEND Internal Medicine

== ENCOUNTER 2016-10-01 12:34 | Inpatient (IN) ==
[2016-10-01] MEDS ORDERED: 0.9 % Sodium Chloride 500 ML IVC ONE ×3 (12:51→18:16)
--- NOTE | 2016-10-01 12:55 | Emergency Department Note ---
Disposition Clinical Impression: Acute and chronic respiratory failure with hypercapnia Altered mental status Qualifiers: Qualified Code(s): R41.82 - Hypotension Qualifiers: Qualified Code(s): I95.9 - Disposition: Admitted As Inpatient Altered Mental Status HPI - General Chief Complaint: ED General Medical Stated Complaint: low blood pressure Source: patient, EMS Limitations: no limitations Nursing Notes Reviewed: Yes Vital Signs Reviewed: Yes - History of Present Illness HPI Narrative: [facility] for hypotension and altered mental status. He was discharged from the hospital yesterday [facility] this morning and noted low blood pressure and altered mental status. He normally does use BiPAP which he did not use last night. Patient is arousable moves all 4 extremities but difficult to get a history from him on arrival MD complaint: altered mental status - Related Data Home Medications Medication Instructions Recorded Confirmed Insulin Glargine,Hum.rec.anlog 30 unit SQ BID #0 01/07/15 10/01/16 [Lantus Solostar] [place] Oil/[place]-3 Fatty Acids 1 cap PO DAILY #0 01/07/15 10/01/16 [Fish Oil 500 mg Softgel] Carvedilol [Coreg] 50 mg PO BIDWM 01/24/16 10/01/16 Duloxetine HCl [Cymbalta] 60 mg PO DAILY 01/24/16 10/01/16 Lidocaine/Prilocaine CREAM [Emla] 1 appl TP AD PRN 01/24/16 10/01/16 Pantoprazole Sodium [Protonix] 40 mg PO DAILY 01/24/16 10/01/16 Renal Vitamin [Renal Caps Softgel] 1 mg PO DAILY 01/24/16 10/01/16 Ammonium Lactate 1 appl TP BID 09/02/16 10/01/16 Cinacalcet HCl [Sensipar] 60 mg PO DAILY 09/02/16 10/01/16 hydrALAZINE [HydrALAZINE] 25 mg PO BID 09/02/16 10/01/16 Tetrahydrozoline [Visine] 1 drop BOTH EYES QID PRN 09/29/16 10/01/16 Warfarin [Coumadin] 5 mg PO Q48H 09/29/16 10/01/16 Warfarin [Coumadin] 7.5 mg PO Q48H 09/29/16 10/01/16 Previous Rx's Medication Instructions Recorded Rosuvastatin [Crestor] 20 mg PO DAILY tablet 01/08/15 Amiodarone [Cordarone] 200 mg PO BID tablet 09/19/16 Calcium Acetate [Phos-LO] 1,334 mg PO TIDWM capsule 09/19/16 Docusate [Colace] 100 mg PO BID PRN #0 capsule 09/19/16 Ipratropium Neb [Atrovent Neb] 0.5 mg IH TIDR inhsol 09/19/16 Levalbuterol Neb [Xopenex Neb] 0.63 mg IH TIDR vial.neb 09/19/16 Nicotine Patch [Nicoderm] 21 mg TD DAILY patch.td24 09/19/16 Pregabalin [Lyrica] 50 mg PO BID #14 capsule 09/30/16 cephALEXin [Cephalexin] 500 mg PO BID 4 Days 09/30/16 Allergies Allergy/AdvReac Type Severity Reaction Status Date / Time hydrocodone [From [place]] Allergy Intermediate Hives Verified 09/29/16 16:59 Limitations: ROS unobtainable due to patients medical condition Past Medical History - Past Medical History Source: patient, old records reviewed, obtained from family, nursing notes reviewed Medical history: Reports: arthritis, cardiomyopathy, CHF, COPD, diabetes, dialysis, GERD, hyperlipidemia, hypertension, osteoporosis, renal disease, other Surgical history: Reports: herniorrhaphy, vascular surgery, other Psychiatric history: Reports: anxiety, depression, other - Social History Smoking Status: Current every day smoker Smokeless Tobacco Status: No Alcohol use: Reports: none, unknown Drug use: Reports: marijuana, other Physical Exam - General Limitations: no limitations General appearance: obtunded - Head Head exam: atraumatic - Eye Eye exam: Present: normal appearance, PERRL, EOMI - ENT ENT exam: normal exam, normal oropharynx, mucous membranes moist - Neck Neck exam: Present: normal inspection, full ROM, trachea midline - Chest Chest inspection: Present: normal inspection, symmetric chest wall rise - Respiratory Respiratory exam: Present: normal lung sounds bilaterally - Cardiovascular Cardiovascular exam: Present: regular rate, normal rhythm, normal heart sounds - Abdominal Exam Abdominal exam: Present: distention, normal bowel sounds Course Course Narrative: Patient had a repeat blood gas before transfer to the ICU which was worse. Patient adamantly refused intubation patient understands with his worsening acidosis at least 2 respiratory or cardiac arrest. Despite this he still refuses intubation he states he will stay awake and continues to BiPAP for now and would like to call his family and have them come to the hospital. - Reevaluation(s) Reevaluation #1: Patient is now much more responsive he is awake and alert he states today the nurses at the jail gave him all of his medications at once after that his blood pressure started dropping he became more tired and confused and they called 911. He does have a history of obstructive sleep apnea cannot wear a CPAP he states is uncomfortable there talking about fitting him for a different device for comfort. Time: 14:11 Reevaluation #2: dr. wilhelm present at bedside to assess the patient Time: 16:29 - Consultations Consultation #1: Dr. Wilhelm ICU physician accepts patient Time: 16:23 Vital Signs Temperature 97.7 F 10/01/16 12:36 Pulse Rate 92 10/01/16 12:36 Respiratory Rate 18 10/01/16 12:36 Blood Pressure 76/50 10/01/16 12:36 O2 Sat by Pulse Oximetry 91 10/01/16 12:36 Temperature 98.2 F 10/02/16 07:15 Pulse Rate 114 10/02/16 08:00 Respiratory Rate 20 10/02/16 08:00 Blood Pressure 80/61 10/02/16 08:00 O2 Sat by Pulse Oximetry 93 10/02/16 08:00 Oxygen Delivery Oxygen Delivery Bipap Altered Mental Status - Lab Data Result diagrams: 10/02/16 05:20 10/02/16 05:20 Lab Results 10/01/16 10/01/16 10/01/16 Range/Units 12:52 12:52 12:52 WBC 7.8 (4.3-11.1) K/mcL RBC 3.81 L (4.19-5.50) M/mcL Hgb 10.3 L (12.9-16.9) g/dL Hct 33.7 L (37.5-50.1) % MCV 88.5 (83.0-100.0) fL MCH 27.0 L (28.0-33.3) pg MCHC 30.6 L (31.6-35.5) g/dL RDW 17.2 H (11.5-14.5) % Plt Count 97 L (140-400) K/mcL MPV 10.9 (9.4-12.4) fL Immature Gran % 0.5 (0-4) % Seg Neutrophils % 72.0 % Lymphocytes % 11.7 % Monocytes % 14.1 % Eosinophils % 1.3 % Basophils % 0.4 % Neutrophils # 5.6 (1.6-8.9) K/mcL Lymphocytes # 0.9 (0.6-4.6) K/mcL Monocytes # 1.1 (0.0-1.3) K/mcL Eosinophils # 0.1 (0.0-0.6) K/mcL Basophils # 0.0 (0.0-0.2) K/mcL Nucleated RBCs/100 WBC 0.3 H (0) /100 WBC Immature Plt Fraction 6.2 H (1.1-6.1) % PT 22.4 H (9.4-12.1) Seconds INR 2.0 APTT 39.9 H (26.0-36.0) Seconds ABG pH (7.32-7.45) pH Units ABG pCO2 (35-45) mmHg ABG pO2 (85-104) mmHg ABG HCO3 (21-27) mEQ/L ABG Total CO2 (20-26) mEq/L ABG O2 Saturation (95-98) % ABG Base Excess (-2.0 to 3.0) mEq/L Liter Flow L/MIN Blood Gas Modality Inspired O2 % Sodium 138 (136-145) mEq/L Potassium 4.1 (3.5-4.5) mEq/L Chloride 101 (98-109) mEq/L Carbon Dioxide 26 (19-29) mEq/L BUN 46 H (8-26) mg/dL Creatinine 7.40 H (0.72-1.25) mg/dL Est GFR ( Amer) 10 L (> 60) Est GFR (Non-Af Amer) 8 L (> 60) BUN/Creatinine Ratio 6 (6-26) Glucose 167 H (70-99) mg/dL Calculated Osmolality 302 H (280-300) Lactic Acid (0.5-2.2) mmol/L Calcium 7.9 L (8.6-10.8) mg/dL Phosphorus (2.3-4.7) mg/dL Magnesium (1.6-2.6) mg/dL Troponin I (0-0.03) ng/mL TSH 2.547 (0.350-4.840) mcIU/mL 10/01/16 10/01/16 10/01/16 Range/Units 12:52 12:52 13:07 WBC (4.3-11.1) K/mcL RBC (4.19-5.50) M/mcL Hgb (12.9-16.9) g/dL Hct (37.5-50.1) % MCV (83.0-100.0) fL MCH (28.0-33.3) pg MCHC (31.6-35.5) g/dL RDW (11.5-14.5) % Plt Count (140-400) K/mcL MPV (9.4-12.4) fL Immature Gran % (0-4) % Seg Neutrophils % % Lymphocytes % % Monocytes % % Eosinophils % % Basophils % % Neutrophils # (1.6-8.9) K/mcL Lymphocytes # (0.6-4.6) K/mcL Monocytes # (0.0-1.3) K/mcL Eosinophils # (0.0-0.6) K/mcL Basophils # (0.0-0.2) K/mcL Nucleated RBCs/100 WBC (0) /100 WBC Immature Plt Fraction (1.1-6.1) % PT (9.4-12.1) Seconds INR APTT (26.0-36.0) Seconds ABG pH 7.18 L* (7.32-7.45) pH Units ABG pCO2 77 H* (35-45) mmHg ABG pO2 81 L (85-104) mmHg ABG HCO3 28.7 H (21-27) mEQ/L ABG Total CO2 31.1 H (20-26) mEq/L ABG O2 Saturation 93 L (95-98) % ABG Base Excess -0.9 (-2.0 to 3.0) mEq/L Liter Flow 2 L/MIN Blood Gas Modality nc Inspired O2 28 % Sodium (136-145) mEq/L Potassium (3.5-4.5) mEq/L Chloride (98-109) mEq/L Carbon Dioxide (19-29) mEq/L BUN (8-26) mg/dL Creatinine (0.72-1.25) mg/dL Est GFR ( Amer) (> 60) Est GFR (Non-Af Amer) (> 60) BUN/Creatinine Ratio (6-26) Glucose (70-99) mg/dL Calculated Osmolality (280-300) Lactic Acid (0.5-2.2) mmol/L Calcium (8.6-10.8) mg/dL Phosphorus 4.1 (2.3-4.7) mg/dL Magnesium 1.9 (1.6-2.6) mg/dL Troponin I 0.08 H* (0-0.03) ng/mL TSH (0.350-4.840) mcIU/mL 10/01/16 10/01/16 Range/Units 13:20 16:12 WBC (4.3-11.1) K/mcL RBC (4.19-5.50) M/mcL Hgb (12.9-16.9) g/dL Hct (37.5-50.1) % MCV (83.0-100.0) fL MCH (28.0-33.3) pg MCHC (31.6-35.5) g/dL RDW (11.5-14.5) % Plt Count (140-400) K/mcL MPV (9.4-12.4) fL Immature Gran % (0-4) % Seg Neutrophils % % Lymphocytes % % Monocytes % % Eosinophils % % Basophils % % Neutrophils # (1.6-8.9) K/mcL Lymphocytes # (0.6-4.6) K/mcL Monocytes # (0.0-1.3) K/mcL Eosinophils # (0.0-0.6) K/mcL Basophils # (0.0-0.2) K/mcL Nucleated RBCs/100 WBC (0) /100 WBC Immature Plt Fraction (1.1-6.1) % PT (9.4-12.1) Seconds INR APTT (26.0-36.0) Seconds ABG pH (7.32-7.45) pH Units ABG pCO2 (35-45) mmHg ABG pO2 (85-104) mmHg ABG HCO3 (21-27) mEQ/L ABG Total CO2 (20-26) mEq/L ABG O2 Saturation (95-98) % ABG Base Excess (-2.0 to 3.0) mEq/L Liter Flow L/MIN Blood Gas Modality Inspired O2 % Sodium (136-145) mEq/L Potassium (3.5-4.5) mEq/L Chloride (98-109) mEq/L Carbon Dioxide (19-29) mEq/L BUN (8-26) mg/dL Creatinine (0.72-1.25) mg/dL Est GFR ( Amer) (> 60) Est GFR (Non-Af Amer) (> 60) BUN/Creatinine Ratio (6-26) Glucose (70-99) mg/dL Calculated Osmolality (280-300) Lactic Acid 0.8 0.8 (0.5-2.2) mmol/L Calcium (8.6-10.8) mg/dL Phosphorus (2.3-4.7) mg/dL Magnesium (1.6-2.6) mg/dL Troponin I (0-0.03) ng/mL TSH (0.350-4.840) mcIU/mL TPA Checklist - LKW: 3-4.5 hrs Add. Contraindications Patient/family understanding: The patient/family members have been counseled and understood the risk, benefit , and alternatives of treatment. Critical Care Time Critical Care Time: Yes Total Critical Care Time: 45 Attestation: Critical care performed: Time is exclusive of separately billable procedures. Time includes: direct patient care, patient reassessment, coordination of patient care, interpretation of data (laboratory data, radiology data, and respiratory data), review of patient's medical records, medical consultation and documentation of patient care. Procedures included in critical care time: Procedures excluded from critical care time:
[2016-10-01 13:10] LABS: Eosinophils % 1.3 %; Immature Granulocytes % 0.5 % (0-4); Red Cell Distribution Width 17.2 % (11.5-14.5)
[2016-10-01 13:12] LABS: Basophils % 0.4 %; Eosinophils # 0.1 K/mcL (0.0-0.6); Hematocrit 33.7 % (37.5-50.1); Hemoglobin 10.3 g/dL (12.9-16.9); Immature Platelets 6.2 % (1.1-6.1); Lymphocytes # 0.9 K/mcL (0.6-4.6); Lymphocytes % 11.7 %; Mean Corpuscular HGB Conc 30.6 g/dL (31.6-35.5); Mean Corpuscular Volume 88.5 fL (83.0-100.0); Mean Platelet Volume 10.9 fL (9.4-12.4); Monocytes # 1.1 K/mcL (0.0-1.3); Monocytes % 14.1 %; Neutrophils # 5.6 K/mcL (1.6-8.9); Nucleated Red Blood Cells 0.3 /100 WBC (0); Red Blood Count 3.81 M/mcL (4.19-5.50)
[2016-10-01 13:13] LABS: Platelet Count 97 K/mcL (140-400)
[2016-10-01] MEDS ORDERED: Norepinephrine 4 MG in D5% in Water 250 ML IVC SCH (13:15)
[2016-10-01 13:17] LABS: Prothrombin Time 22.4 Seconds (9.4-12.1)
[2016-10-01 13:19] LABS: Activated Partial Thrombo Time 39.9 Seconds (26.0-36.0)
[2016-10-01 13:21] LABS: ABG Base Excess -0.9 mEq/L (-2.0 to 3.0); ABG HCO3 28.7 mEQ/L (21-27); ABG Oxygen Saturation 93 % (95-98); ABG PO2 81 mmHg (85-104); ABG TCO2 31.1 mEq/L (20-26)
[2016-10-01 13:22] LABS: Blood Gas FiO2 28 %; Blood Gas Liter Flow 2 L/MIN
[2016-10-01 13:23] LABS: ABG PCO2 77 mmHg (35-45); ABG PH 7.18 pH Units (7.32-7.45)
[2016-10-01 13:23] LABS: Magnesium 1.9 mg/dL (1.6-2.6); Phosphorous 4.1 mg/dL (2.3-4.7)
[2016-10-01 13:24] LABS: Calcium 7.9 mg/dL (8.6-10.8); Potassium 4.1 mEq/L (3.5-4.5)
[2016-10-01] MEDS ORDERED: 0.9 % Sodium Chloride 1,000 ML IVC ONE (13:52)
[2016-10-01] MEDS ORDERED: Calcium Gluconate 1,000 MG in D5% in Water 100 ML IVPB ONE (14:21)
--- NOTE | 2016-10-01 16:37 | Event Note ---
Date of Encounter: 10/01/16 Time of Encounter: 16:36 Attending addendum: The patient was seen and examined with the house staff. Resident note is pendin. Acute respiratory failure with hypercapnia 2. Hypotension 3. Encephalopathy 4. End-stage renal disease 45-year-old obese -[place] male with a history of end-stage renal disease, COPD, CHF, and cardiomyopathy who presented to emergency department for further evaluation of hypotension and altered mental status. Evaluation in the ER revealed hypercapnic respiratory failure requiring BiPAP. The patient was also found to be hypotensive, which responded to 2 L of IV fluid bolus. Continue BiPAP. The patient is rather agitated, and he may need Precedex to assist with compliance while on BiPAP. Recommend serial ABG. He is at risk for intubation. Hypotension of unclear etiology. Currently appears resolved. The patient has a normal lactate with no clinical signs of hypoperfusion. We will consult nephrology for management of end-stage renal disease. Continue ICU level of care for now.
[2016-10-01] MEDS ORDERED: Naloxone 0.4 MG/ML INJ IVP PRN (17:06)
[2016-10-01] MEDS ORDERED: Tetrahydrozoline 15 ML BOTTLE BOTH EYES PRN (17:09)
[2016-10-01] MEDS ORDERED: *HR* Dextrose 50 % in Water (Syg) 50 ML SYRINGE IVP PRN (17:11)
[2016-10-01] MEDS ORDERED: D5% in Water 1,000 ML IVC PRN (17:11)
[2016-10-01] MEDS ORDERED: Dextrose Gel 15 GM PO PRN ×2 (17:11)
[2016-10-01] MEDS ORDERED: Dexmedetomidine HCl 400 MCG/100 ML MLS IVC SCH (17:15)
--- NOTE | 2016-10-01 17:28 | Pulmonology History & Physical ---
Date of Encounter: 10/01/16 Time of Encounter: 17:23 Assessment and Plan (1) Altered mental status Current visit: Yes Status: Acute This seems to be improving. Most likely this is secondary to a combination of CO2 Narcosis and sedating medications in the setting of severe sleep apnea. BIPAP: Home settings Hold sedating medications. We will place him on low dose precedex tonight to make sure he will tolerate BIPAP. check UDS. CT of the head shows no acute abnormalities. small amount of air in the venous system. Secondary to Dialysis? No further air seen on CT abdomen and chest. Qualifiers: Qualified Code(s): R41.82 - Altered mental status, unspecified (2) Hypotension Current visit: Yes Status: Acute possibly secodondary to medication error ( patient stated in ER he received all his med at once). PAtient recieved IV fluids. Baseline BP at last hospitalization was on the low side 90s systolic. Lactic acid is normal. We will place a CVC and start pressors if not resolving when he arrives to the ED. ( patient was seen in ED) Qualifiers: Qualified Code(s): I95.9 - Hypotension, unspecified (3) Acute and chronic respiratory failure with hypercapnia Current visit: Yes Status: Acute acute on chronic hypercapneic repsiratory failure. Patient with severe sleep apnea. Now with elevated CO2 Likley a result of medications and non compliance. Continue BIPAP. repeat ABG. (4) End stage renal disease Current visit: Yes Status: Acute Consult nephrology for HD management. (5) Systolic heart failure Current visit: Yes Status: Acute Non ischemic cardiomyopathy. Hold BP meds now secondary to hypotension. Resume home meds when more stable. LAst EF 20%. Recieved 2L in ER. Noncompliant with fluid resriction. Monitor for Fluid overload. Qualifiers: Qualified Code(s): I50.22 - Chronic systolic (congestive) heart failure (6) Atrial fibrillation Current visit: Yes Status: Acute currently rate controlled. continue amioderone. Add back coreg when BP improves. Avoid cardizem with Low EF Qualifiers: Qualified Code(s): I48.91 - Unspecified atrial fibrillation (7) Severe sleep apnea Current visit: Yes Status: Acute AHI 113 on latest sleep study. BIPAP (8) Cellulitis of abdominal wall Current visit: Yes Status: Acute patient was discharged with PO Keflex. we will continue. (9) Medical non-compliance Current visit: Yes Status: Acute (10) Bicytopenia Current visit: Yes Status: Acute Mild. Stable from prior admission. May consider O/P US of liver to r/o cirrhosis. (11) Obesity (BMI 30-39.9) Current visit: Yes Status: Acute (12) Elevated troponin Current visit: Yes Status: Acute Mild. TN on discharge 0.11 Now 0.08 chest pain free. (13) DVT prophylaxis Current visit: Yes Status: Acute on coumadin (14) Diabetes Current visit: Yes Status: Acute Patient is a type 2 insulin-dependent diabetic. Will place him on basal insulin. I will discuss decrease tonight's dose given that he will be nothing by mouth. Foot him on a low-dose sliding scale every 6 hours. Qualifiers: Qualified Code(s): E11.9 - Type 2 diabetes mellitus without complications (15) Goals of care, counseling/discussion Current visit: Yes Status: Acute Patient states that he does not want to be put on mechanical ventilation. He states"that is not an option". We did discuss CODE STATUS with him. He is unsure and would like to speak with family. Will further address that once they arrive. Currently a full code. History of Present Illness Chief complaint: AMS HPI: Mr. Hatch is a 45 year old male with past history significant for nonischemic cardiomyopathy. Last ejection fraction measured in 09/03/2016 was 20%. Also has some moderate diastolic dysfunction. It is thought that his systolic dysfunction secondary to cardiomyopathy from uncontrolled hypertension. Additionally he has end-stage renal disease. Last dialysis was 09/30/2016. Additionally has a history of chronic hypercapnic respiratory failure. He also has severe obstructive sleep apnea with apnea-hypopnea index of 113. He has had noncompliance in the past with refusing to wear BiPAP as well as refusing fluid restrictions. Most recently he was admitted on 09/30/2016 with SVT, and cellulitis of the abdomen. He was discharged back to his longterm later that day. Today the patient was brought to the emergency room by the longterm facility due to the patient having altered mentation. Reportedly the patient stated that he was given all of his medication at one time. Additionally from emergency room staff it was reported that the patient may have been receiving more pain medication from friends. The patient has been hypotensive in the emergency department. However he does have a baseline low blood pressures with review of previous stays. Additionally he has hypercapnia. Currently he wakes easily and is on BiPAP. His only complaint is the BiPAP mask at this time. He is somewhat somnolent at this time. Past Med Surg Social Fam HX - Past Medical History Medical history: arthritis, cardiomyopathy, CHF, COPD, diabetes, dialysis, GERD , hyperlipidemia, hypertension, osteoporosis, renal disease, other Psychiatric history: anxiety, depression, other - Past Surgical History Surgical History: herniorrhaphy, vascular surgery, other - Social History Smoking Status: Current every day smoker Smokeless Tobacco Status: No Alcohol use: none, unknown Drug use: marijuana, other - Family History Father Living Status: Mother Adopted: No Living Status: Still Living Hx Family Cardiac Disorders: Yes Hx Family Endocrine Disorder: Yes Medications and Allergies Insulin Glargine,Hum.rec.anlog [Lantus Solostar] 30 unit SQ BID #0 01/07/15 [ History] [place] Oil/[place]-3 Fatty Acids [Fish Oil 500 mg Softgel] 1 cap PO DAILY #0 [History] Rosuvastatin [Crestor] 20 mg PO DAILY tablet 01/08/15 [Rx] Carvedilol [Coreg] 50 mg PO BIDWM 01/24/16 [History] Duloxetine HCl [Cymbalta] 60 mg PO DAILY 01/24/16 [History] Lidocaine/Prilocaine CREAM [Emla] 1 appl TP AD PRN 01/24/16 [History] Pantoprazole Sodium [Protonix] 40 mg PO DAILY 01/24/16 [History] Renal Vitamin [Renal Caps Softgel] 1 mg PO DAILY 01/24/16 [History] Ammonium Lactate 1 appl TP BID 09/02/16 [History] Cinacalcet HCl [Sensipar] 60 mg PO DAILY 09/02/16 [History] hydrALAZINE [HydrALAZINE] 25 mg PO BID 09/02/16 [History] Amiodarone [Cordarone] 200 mg PO BID tablet 09/19/16 [Rx] Calcium Acetate [Phos-LO] 1,334 mg PO TIDWM capsule 09/19/16 [Rx] Docusate [Colace] 100 mg PO BID PRN #0 capsule 09/19/16 [Rx] Ipratropium Neb [Atrovent Neb] 0.5 mg IH TIDR inhsol 09/19/16 [Rx] Levalbuterol Neb [Xopenex Neb] 0.63 mg IH TIDR vial.neb 09/19/16 [Rx] Nicotine Patch [Nicoderm] 21 mg TD DAILY patch.td24 09/19/16 [Rx] Tetrahydrozoline [Visine] 1 drop BOTH EYES QID PRN 09/29/16 [History] Warfarin [Coumadin] 5 mg PO Q48H 09/29/16 [History] Warfarin [Coumadin] 7.5 mg PO Q48H 09/29/16 [History] Pregabalin [Lyrica] 50 mg PO BID #14 capsule 09/30/16 [Rx] cephALEXin [Cephalexin] 500 mg PO BID 4 Days 09/30/16 [Rx] Allergies hydrocodone [From [place]] Allergy (Intermediate, Verified 09/29/16 16:59) Hives ROS unobtainable: due to mental status All Systems: A 10-system review of systems was performed and is negative for pertinent findings except as documented above in the HPI. Physical Examination Vital Signs: Vital Signs, Last 4 Hours Pulse Resp BP Pulse Ox 10/01/16 17:10 89 24 106/52 95 General: This is a well-developed well-nourished 45-year-old male who is currently alert and orientated to person place time and situation. He can clearly tell me his name and date of the current date and where he is. He is lying in bed appears to be comfortable no acute distress at this time. HEENT: Head is normocephalic and atraumatic. Pupils are equally round react light and accommodation. Anicteric sclera. Regular midline. Heart: Regular rate and rhythm without murmurs rubs or gallops. No JVD. Lungs: Globally diminished mild expiratory wheezes on the left. Normal effort of breathing. Abdomen obese, multiple history a present. Bowel sounds positive all quadrants. There is some mild erythema at the base of the abdomen. No tenderness to palpation. Musculoskeletal: Grossly normal for age no gross deformity noted. Extremities: There is no clubbing or cyanosis. He does have chronic venous stasis changes of the lower extremities bilaterally. 2+ pitting edema up to the level of the patella bilaterally. Integument: No rashes or lesions other than described above. Results - Laboratory Findings CBC and BMP: 10/01/16 12:52 10/01/16 12:52 ABG ABG pH 7.18 pH Units (7.32-7.45) L* 10/01/16 13:07 ABG pCO2 77 mmHg (35-45) H* 10/01/16 13:07 ABG pO2 81 mmHg (85-104) L 10/01/16 13:07 ABG O2 Saturation 93 % (95-98) L 10/01/16 13:07 PT/INR, D-dimer PT 22.4 Seconds (9.4-12.1) H 10/01/16 12:52 Abnormal lab findings: Abnormal lab results RBC 3.81 M/mcL (4.19-5.50) L 10/01/16 12:52 Hgb 10.3 g/dL (12.9-16.9) L 10/01/16 12:52 Hct 33.7 % (37.5-50.1) L 10/01/16 12:52 MCH 27.0 pg (28.0-33.3) L 10/01/16 12:52 MCHC 30.6 g/dL (31.6-35.5) L 10/01/16 12:52 RDW 17.2 % (11.5-14.5) H 10/01/16 12:52 Plt Count 97 K/mcL (140-400) L 10/01/16 12:52 Nucleated RBCs/100 WBC 0.3 /100 WBC (0) H 10/01/16 12:52 Immature Plt Fraction 6.2 % (1.1-6.1) H 10/01/16 12:52 PT 22.4 Seconds (9.4-12.1) H 10/01/16 12:52 APTT 39.9 Seconds (26.0-36.0) H 10/01/16 12:52 ABG pH 7.18 pH Units (7.32-7.45) L* 10/01/16 13:07 ABG pCO2 77 mmHg (35-45) H* 10/01/16 13:07 ABG pO2 81 mmHg (85-104) L 10/01/16 13:07 ABG HCO3 28.7 mEQ/L (21-27) H 10/01/16 13:07 ABG Total CO2 31.1 mEq/L (20-26) H 10/01/16 13:07 ABG O2 Saturation 93 % (95-98) L 10/01/16 13:07 BUN 46 mg/dL (8-26) H 10/01/16 12:52 Creatinine 7.40 mg/dL (0.72-1.25) H 10/01/16 12:52 Est GFR ( Amer) 10 (> 60) L 10/01/16 12:52 Est GFR (Non-Af Amer) 8 (> 60) L 10/01/16 12:52 Glucose 167 mg/dL (70-99) H 10/01/16 12:52 Calculated Osmolality 302 (280-300) H 10/01/16 12:52 Calcium 7.9 mg/dL (8.6-10.8) L 10/01/16 12:52 Troponin I 0.08 ng/mL (0-0.03) H* 10/01/16 12:52
[2016-10-01] MEDS ORDERED: *HR* Warfarin 5 MG TABLET PO SCH (18:00)
[2016-10-01 18:41] LABS: ABG Base Excess -3.8 mEq/L (-2.0 to 3.0); ABG HCO3 27.3 mEQ/L (21-27); ABG Oxygen Saturation 99 % (95-98); ABG PO2 147 mmHg (85-104)
[2016-10-01 18:44] LABS: ABG PCO2 88 mmHg (35-45); Blood Gas FiO2 50 %
[2016-10-01] MEDS ORDERED: *HR* Etomidate 20 MG/10 ML AMPUL IVP ONE (18:54)
[2016-10-01] MEDS ORDERED: *HR* Rocuronium Bromide 50 MG/5 ML VIAL IVP ONE (18:54)
[2016-10-01] MEDS ORDERED: 0.9 % Sodium Chloride 1,000 ML ONE (18:58)
[2016-10-01 19:02] LABS: Thyroid Stimulating Hormone 2.547 mcIU/mL (0.350-4.840)
[2016-10-01] MEDS ORDERED: Vancomycin 1,750 MG in D5% in Water 500 ML IVPB ONE (20:00)
[2016-10-01] MEDS: Ipratropium Neb 0.5 MG NEBULIZER IH SCH (20:05)
[2016-10-01] MEDS: Levalbuterol Neb 0.63 MG/3 ML IH SCH (20:06)
[2016-10-01] MEDS: *HR* Amiodarone 200 MG TABLET PO SCH ×2 (20:19→23:15)
[2016-10-01] MEDS ORDERED: cephALEXin 500 MG CAPSULE PO SCH (21:00)
[2016-10-01] MEDS ORDERED: Insulin DETEMIR 100 UNIT/ML X5UNITS SQ ONE (21:00)
[2016-10-01] MEDS ORDERED: Insulin DETEMIR 100 UNIT/ML X5UNITS SQ SCH (21:00)
[2016-10-01] MEDS ORDERED: hydrALAZINE 25 MG TABLET PO SCH (21:00)
[2016-10-01] MEDS: Piperacillin/Tazobactam 3.375 GM in D5% in Water (Mini-Bag+) 100 ML IVPB SCH (21:07)
[2016-10-01] MEDS: FentaNYL (PF) 1,000 MCG in 0.9 % Sodium Chloride 80 ML IVC SCH (21:10)
[2016-10-01] MEDS: Norepinephrine 4 MG in D5% in Water 250 ML IVC SCH (21:59)
[2016-10-01 22:10] LABS: ABG Base Excess -2.6 mEq/L (-2.0 to 3.0); ABG HCO3 27.4 mEQ/L (21-27); ABG Oxygen Saturation 91 % (95-98); ABG PO2 76 mmHg (85-104); ABG TCO2 29.8 mEq/L (20-26)
[2016-10-01 22:12] LABS: ABG PH 7.16 pH Units (7.32-7.45)
[2016-10-01 22:13] LABS: ABG PCO2 77 mmHg (35-45); Blood Gas FiO2 60 %
[2016-10-01] MEDS: Insulin LISPRO 300 UNITS/3 ML VIAL SQ SCH (22:59)
[2016-10-01] MEDS: Ammonium Lactate 30 APPL/225 GM BOTTLE TP SCH (23:15)
--- NOTE | 2016-10-02 00:12 | Event Note ---
Date of Encounter: 10/02/16 Time of Encounter: 00:05 Patient arrived in the intensive care unit approximately 8 PM. At that time the patient was lethargic but was still answering questions appropriately. We discussed the seriousness of his illness given his respiratory status as well as his hypotension. Patient initially did not want to wear the BiPAP or be intubated however I discussed the results of his ABG and his somnolence with the patient and we discussed the risk of worsening respiratory failure and respiratory arrest if we were not able to treat his hypercapnia with BiPAP or mechanical ventilation. Eventually the patient stated that he did not want to and told us to do what we needed to do to help his respiratory status as well as his hypotension and verbally consented to central line placement for pressor support. He was then placed on BiPAP. Family arrived at the bedside including his mother, aunt, and uncle. The patient's clinical situation was discussed with the family and they stated that this is happening before and the patient has been noncompliant with his treatment regimen in the past including noncompliant with his diet and fluid restriction. Family was at bedside and was able to witness his somnolence. His hypotension and need for pressor therapy was also discussed with the family and his mother gave written consent for a central line as the patient's mental status did not allow him to give written consent although he did give verbal consent earlier in the evening. Chest x-ray was then performed that showed worsening pulmonary edema. The patient's mental status was then reassessed and he was minimally responsive to verbal stimuli. At that point the patient was evaluated by the attending physician, Dr. Sandoval, and the decision was made to intubate the patient and place him on mechanical ventilation (Please see procedure note for intubation details). Shortly after intubation a right internal jugular vein central venous catheter was placed and pressors were started (please see procedure note for details). Patient was stabilized on mechanical ventilation and pressor support with norepinephrine. Family was updated via telephone by nursing staff.
--- NOTE | 2016-10-02 00:22 | Procedure Note ---
Date of procedure: 10/01/16 Pre-op diagnosis: Acute hypercapnic respiratory failure Post-op diagnosis: same Procedure: Patient's mental status continued to decline and ABG showed worsening hypercapnia so the decision was made to intubate the patient and place on mechanical ventilation. Patient was initially resistant Ebenezer spoken to him earlier in the night but later gave verbal consent for endotracheal intubation and family including mother, aunt, uncle who are bedside gave verbal consent for intubation when the patient's mental status worsened to the point that he could not give consent. Patient was positioned in adequate position, preoxygenated with bag valve mask, sedated with etomidate 30 mg and Versed 5 mg. Respiratory therapy was at the bedside to assist. A size 4 glidascope blade was inserted into the oropharynx and the vocal cords were visualized. Patient's larynx was anterior and the first attempt at intubation was unsuccessful. The laryngoscope was then withdrawn and the patient was oxygenated to 96% oxygen saturation with a bag valve mask. The laryngoscope was then reinserted and the vocal cords were again visualized. The patients neck was extended slightly and cricoid pressure was applied and a size 8 endotracheal tube was visualized passing through the vocal cords and secured at the 22 cm landon at the lips. Placement was confirmed with color change on CO2 detector, bilateral breath sounds and satisfactory position on chest x-ray. Patient was successfully intubated on second attempt. Patient was then placed on mechanical ventilation. The patient tolerated the procedure well, there are no immediate complications. Anesthesia: IV sedation Surgeon: Hiram Bonilla Pathology: none sent Condition: critical Disposition: ICU
--- NOTE | 2016-10-02 00:33 | Procedure Note ---
Date of procedure: 10/01/16 Pre-op diagnosis: Hypotension Post-op diagnosis: same Procedure: Central venous catheter placement: Verbal consent was obtained from the patient earlier in the evening and at the time of the procedure written consent was obtained from the patient's mother. The right internal jugular vein was surveyed using ultrasound and deemed to be a suitable target. The patient was somewhat agitated on mechanical ventilation prior to the procedure so Versed 2 mg IV push was administered. The patient was cleaned and draped in the usual sterile fashion. The right internal jugular vein was again surveyed using ultrasound and 1% lidocaine was infiltrated into the skin and subcutaneous tissues. Under ultrasound guidance the introducer needle was advanced into the right internal jugular vein. Dark red blood was returned. The guidewire was passed through the syringe and needle apparatus and advanced into the vein without resistance. The syringe and needle were then removed. Using ultrasound the guidewire was then visualized within the right internal jugular vein. A siri in the skin was made using the scalpel. A dilator was passed over the guidewire and the skin and soft tissues were dilated. A 20 cm triple lumen catheter was then advanced over the guidewire into the right internal jugular vein. The guidewire was removed intact. All 3 ports were then tested and shown to draw blood and flushed easily. The catheter was then sutured in place at 4 points. Biopatch and sterile dressing were applied. Chest x-ray showed the tip of the catheter within the SVC and no pneumothorax. The patient tolerated the procedure well, and there are no immediate complications. Anesthesia: GETA Surgeon: Hiram Bonilla Estimated blood loss (cc): 10 IV fluids (cc): 20 Pathology: none sent Condition: critical Disposition: ICU
[2016-10-02 00:36] LABS: ABG Base Excess -2.2 mEq/L (-2.0 to 3.0); ABG HCO3 25.9 mEQ/L (21-27); ABG Oxygen Saturation 97 % (95-98); ABG PCO2 59 mmHg (35-45); ABG PH 7.25 pH Units (7.32-7.45); ABG PO2 106 mmHg (85-104); ABG TCO2 27.7 mEq/L (20-26); Blood Gas FiO2 60 %; Blood Gas PEEP 8 cm H2O
[2016-10-02 00:37] LABS: Blood Gas VT 500 cc
[2016-10-02] MEDS: Insulin LISPRO 300 UNITS/3 ML VIAL SQ SCH ×4 (01:10→17:08)
[2016-10-02] MEDS: Levalbuterol Neb 0.63 MG/3 ML IH SCH ×3 (01:16→15:50)
[2016-10-02] MEDS: Ipratropium Neb 0.5 MG NEBULIZER IH SCH ×3 (01:16→15:50)
[2016-10-02 05:06] LABS: ABG Base Excess -1.8 mEq/L (-2.0 to 3.0); ABG HCO3 26.3 mEQ/L (21-27); ABG Oxygen Saturation 93 % (95-98); ABG PCO2 60 mmHg (35-45); ABG PH 7.25 pH Units (7.32-7.45); ABG PO2 78 mmHg (85-104); ABG TCO2 28.1 mEq/L (20-26)
[2016-10-02 05:08] LABS: Blood Gas FiO2 40 %
[2016-10-02 05:33] LABS: Segmented Neutrophils % 67.5 %
[2016-10-02 05:35] LABS: Basophils % 0.3 %; Eosinophils # 0.1 K/mcL (0.0-0.6); Eosinophils % 1.7 %; Hematocrit 33.6 % (37.5-50.1); Hemoglobin 10.4 g/dL (12.9-16.9); Immature Granulocytes % 0.3 % (0-4); Immature Platelets 5.1 % (1.1-6.1); Ionized Calcium 1.03 mmol/L (1.15-1.35); Lymphocytes # 1.2 K/mcL (0.6-4.6); Lymphocytes % 18.5 %; Mean Corpuscular Hemoglobin 27.2 pg (28.0-33.3); Mean Platelet Volume 10.2 fL (9.4-12.4); Monocytes # 0.8 K/mcL (0.0-1.3); Monocytes % 11.7 %; Neutrophils # 4.5 K/mcL (1.6-8.9); Nucleated Red Blood Cells 0.3 /100 WBC (0); Red Blood Count 3.82 M/mcL (4.19-5.50); Red Cell Distribution Width 17.3 % (11.5-14.5)
[2016-10-02 05:45] LABS: Albumin 2.8 g/dL (3.5-5.0); Albumin/Globulin Ratio 0.8 (1.1-2.2); Bilirubin,Total 0.7 mg/dL (0.2-1.2); Calcium 8.1 mg/dL (8.6-10.8); Globulin 3.5 g/dL (2.4-3.5); Magnesium 1.8 mg/dL (1.6-2.6); Phosphorous 5.4 mg/dL (2.3-4.7); Potassium 4.4 mEq/L (3.5-4.5); Total Protein 6.3 g/dL (6.0-8.3)
[2016-10-02] MEDS ORDERED: Lacri-Lube 3.5 GM TUBE BOTH EYES PRN (05:45)
[2016-10-02 05:46] LABS: Platelet Count 94 K/mcL (140-400)
[2016-10-02 06:10] LABS: Platelet Estimate Decreased (Normal)
[2016-10-02 06:23] LABS: INR 2.1
--- NOTE | 2016-10-02 07:06 | Pulmonology Progress Note ---
<Nikos Delgado - Last Filed: 10/02/16 13:00> Date of Encounter: 10/02/16 Time of Encounter: 07:06 Assessment and Plan (1) Altered mental status Current Visit: No Status: Acute improving, alert and oriented likely secondary to CO2 narcosis and sedating medications off sedating medications reports BiPAP settings at home CT head 10/01 - no acute abnormalities, small amoutn of air in the venous system ESRD MWF, last HD 09/30 continue to monitor Qualifiers: Altered mental status type: unspecified Qualified Code(s): R41.82 - Altered mental status, unspecified (2) Hypotension Current Visit: Yes Status: Acute unclear etiology possibly secondary to medication error - takes hydralazine 25 BID, Coreg 50 BID, and Amiodarone 200 BID according to medical record medication list baseline SBP at last hospitalization in the 90s normal lactate 0.6 without clinical signs of hypoperfusion 2L fluid resuscitation in the ED R IJ CVC placed 10/01 and given Norepi, stopped since 10/02 goal MAP >60 Qualifiers: Hypotension type: unspecified hypotension type Qualified Code(s): I95.9 - Hypotension, unspecified (3) Acute and chronic respiratory failure with hypercapnia Current Visit: Yes Status: Acute secondary to severe sleep apnea presented with elevated CO2 likely a result of medications and non-compliance did not tolerate BiPAP and was intubated 10/01 CPAP trial today 10/02 - awake alert and following commands he is agitated and will start Precedex CTA Chest 10/01 - no evidence of PE and suspicion for pulm hypertension, no acute pulmonary findings to suggest pneumonia - discontinued Zosyn and Vanc (4) End stage renal disease on dialysis Current Visit: No Status: Chronic Nephrology consulted HD MWF last HD 09/30 plan to dialyze today left forearm AV fistula (5) Systolic heart failure Current Visit: Yes Status: Acute history of nonischemic cardiomyopathy hold BP meds secondary to hypotension resume home meds when more stable last QUIQUE 09/03/16 showed reduced EF 20%, moderate diastolic dysfunction, moderate RV hypokinesis, no pulm hypertension Qualifiers: Heart failure chronicity: unspecified heart failure chronicity Qualified Code(s): I50.20 - Unspecified systolic (congestive) heart failure (6) Nonischemic cardiomyopathy Current Visit: No Status: Chronic thought to be secondary to unctonrolled HTN (7) Atrial fibrillation Current Visit: No Status: Acute currently rate controlled continue amiodarone can add Coreg once BP improves AVOID Cardizem due to low EF 20% coumadin for AC monitor INR, last 2.1 Qualifiers: Atrial fibrillation type: paroxysmal Qualified Code(s): I48.0 - Paroxysmal atrial fibrillation (8) Severe sleep apnea Current Visit: Yes Status: Acute AHI 113 on latest sleep study currently intubated, CPAP trial BiPAP at night once extubated Precedex for sedation PRN (9) Cellulitis of abdominal wall Current Visit: Yes Status: Acute discharged on last admission with PO Keflex will continue (10) Obesity (BMI 30-39.9) Current Visit: No Status: Chronic (11) Elevated troponin Current Visit: Yes Status: Acute mild elevation in setting of ESRD troponin elevated 0.08 on discharge 10/01 trop 0.11 patient denies any chest pain (12) Diabetes mellitus type 2, uncontrolled, with complications Current Visit: No Status: Chronic low dose ISS continue to monitor blood glucose Qualifiers: Diabetes mellitus 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 Patient seen and examined at bedside. He appears in no acute distress. He is awake alert and follow simple commands. He denies any chest pain or abdominal pain by shaking his head no. Expresses desire to remove endotracheal tube. Objective PUL Vital signs: Last Vital Signs Temp 98.2 F 10/02/16 04:15 Pulse 132 10/02/16 06:16 Resp 18 10/02/16 06:16 BP 85/54 10/02/16 06:16 Pulse Ox 95 10/02/16 06:16 General appearance: no acute distress, alert, agitated Eyes: nonicteric, other (PERRL) ENT: other (Endotracheal intubation) Neck: supple Effort: other (Mechanically ventilated) Auscultation: bilateral: clear, diminished breath sounds Cardiovascular: regular rate and rhythm Gastrointestinal: normoactive bowel sounds, soft (Obese abdomen), non-tender, non-distended, other (Erythema to the lower quadrants of the abdomen) Integumentary: other (Chronic venous stasis to bilateral lower extremities) Extremities: edema (+2 pitting edemea), other (AV fistula left forearm with palpable thrill and audible bruit) Musculoskeletal: no deformities, ROM normal non-focal exam, pupils equal and round, unable to assess due to mental status ( intubated) Ventilator Settings Ventilator Settings: Ventilator Settings, Last 8 Hours Ventilator Mode VC+ Ventilator Mode VC+ Ventilator Mode VC+ Ventilator Mode VC+ Ventilator Mode VC+ Ventilator Mode VC+ Ventilator Mode VC+ Ventilator Mode VC+ Ventilator Mode VC+ Ventilator Mode VC+ Ventilator Mode VC+ Ventilator Mode VC+ Ventilator Mode VC+ Ventilator Tidal Volume 500 Setting Ventilator Tidal Volume 500 Setting Ventilator Tidal Volume 500 Setting Ventilator Tidal Volume 500 Setting Ventilator Tidal Volume 500 Setting Ventilator Tidal Volume 500 Setting Ventilator Tidal Volume 500 Setting Ventilator Tidal Volume 500 Setting Ventilator Tidal Volume 500 Setting Ventilator Tidal Volume 500 Setting Ventilator Tidal Volume 500 Setting Ventilator Tidal Volume 500 Setting Ventilator Tidal Volume 500 Setting Ventilator Respiratory Rate 20 Setting Ventilator Respiratory Rate 20 Setting Ventilator Respiratory Rate 18 Setting Ventilator Respiratory Rate 18 Setting Ventilator Respiratory Rate 18 Setting Ventilator Respiratory Rate 18 Setting Ventilator Respiratory Rate 18 Setting Ventilator Respiratory Rate 18 Setting Ventilator Respiratory Rate 18 Setting Ventilator Respiratory Rate 18 Setting Ventilator Respiratory Rate 18 Setting Ventilator Respiratory Rate 18 Setting Ventilator Respiratory Rate 18 Setting Actual Respiratory Rate 20 Actual Respiratory Rate 18 Actual Respiratory Rate 18 Positive End Expiratory 5 Pressure Positive End Expiratory 5 Pressure Positive End Expiratory 5 Pressure Positive End Expiratory 5 Pressure Positive End Expiratory 5 Pressure Positive End Expiratory 5 Pressure Positive End Expiratory 5 Pressure Positive End Expiratory 5 Pressure Positive End Expiratory 8 Pressure Positive End Expiratory 8 Pressure Positive End Expiratory 8 Pressure Positive End Expiratory 8 Pressure Positive End Expiratory 5 Pressure Peak Inspiratory Airway 32 Pressure Peak Inspiratory Airway 30 Pressure Peak Inspiratory Airway 21 Pressure Results - Laboratory Findings CBC and BMP: 10/02/16 05:20 10/02/16 05:20 ABG ABG pH 7.25 pH Units (7.32-7.45) L 10/02/16 04:55 ABG pCO2 60 mmHg (35-45) H 10/02/16 04:55 ABG pO2 78 mmHg (85-104) L 10/02/16 04:55 ABG O2 Saturation 93 % (95-98) L 10/02/16 04:55 PT/INR, D-dimer PT 23.0 Seconds (9.4-12.1) H 10/02/16 06:15 Abnormal lab findings: Abnormal lab results RBC 3.82 M/mcL (4.19-5.50) L 10/02/16 05:20 Hgb 10.4 g/dL (12.9-16.9) L 10/02/16 05:20 Hct 33.6 % (37.5-50.1) L 10/02/16 05:20 MCH 27.2 pg (28.0-33.3) L 10/02/16 05:20 MCHC 31.0 g/dL (31.6-35.5) L 10/02/16 05:20 RDW 17.3 % (11.5-14.5) H 10/02/16 05:20 Plt Count 94 K/mcL (140-400) L 10/02/16 05:20 Nucleated RBCs/100 WBC 0.3 /100 WBC (0) H 10/02/16 05:20 Platelet Estimate Decreased (Normal) L 10/02/16 05:20 PT 23.0 Seconds (9.4-12.1) H 10/02/16 06:15 APTT 39.9 Seconds (26.0-36.0) H 10/01/16 12:52 ABG pH 7.25 pH Units (7.32-7.45) L 10/02/16 04:55 ABG pCO2 60 mmHg (35-45) H 10/02/16 04:55 ABG pO2 78 mmHg (85-104) L 10/02/16 04:55 ABG Total CO2 28.1 mEq/L (20-26) H 10/02/16 04:55 ABG O2 Saturation 93 % (95-98) L 10/02/16 04:55 BUN 54 mg/dL (8-26) H 10/02/16 05:20 Creatinine 8.01 mg/dL (0.72-1.25) H 10/02/16 05:20 Est GFR ( Amer) 9 (> 60) L 10/02/16 05:20 Est GFR (Non-Af Amer) 7 (> 60) L 10/02/16 05:20 Glucose 100 mg/dL (70-99) H 10/02/16 05:20 POC Glucose 178 (58-89) H 10/02/16 00:33 Calcium 8.1 mg/dL (8.6-10.8) L 10/02/16 05:20 Ionized Calcium 1.03 mmol/L (1.15-1.35) L 10/02/16 05:20 Phosphorus 5.4 mg/dL (2.3-4.7) H 10/02/16 05:20 Alkaline Phosphatase 327 Units/L (38-126) H 10/02/16 05:20 Troponin I 0.08 ng/mL (0-0.03) H* 10/01/16 12:52 Albumin 2.8 g/dL (3.5-5.0) L 10/02/16 05:20 Albumin/Globulin Ratio 0.8 (1.1-2.2) L 10/02/16 05:20 - Diagnostic Findings Chest x-ray: report reviewed, image reviewed Additional studies: Head CT 10/01/16 13:26 IMPRESSION: 1. No acute intracranial abnormality. 2. Soft tissue gas seen within the skullbase and soft tissues of the face which appear to be in tubular structures and likely venous in origin. I suspect this is iatrogenic from his IV. Clinical correlation is recommended. If he has any signs of facial trauma I would suggest CT scan face for further evaluation. D/ / Chacorta Lopez MD / Chacorta Lopez MD Interpreting Provider: Chacorta Lopez MD Abdomen/Pelvis CT 10/01/16 13:31 IMPRESSION: 1. No findings of pulmonary embolism. 2. Moderate cardiomegaly with mild right ventricular hypertrophy and mild left ventricular septal hypertrophy. There is suspicion for associated pulmonary hypertension given marked dilation of the pulmonary arteries, and there is suspicion for some degree of right heart dysfunction given reflux of the contrast bolus. 3. Persistent peripancreatic stranding suggestive of pancreatitis. There are no findings of pancreatic necrosis or hemorrhage. 4. Unchanged trace to small right pleural effusion, trace to small pericardial effusion, and moderate anasarca with minimally increased trace ascites, most likely related to cardiac and/or renal dysfunction. 5. Lucent lesions subjacent to the L2 and L3 superior endplates were not present on 02/19/2013. The locations suggest benign Schmorl's nodes related to degenerative disc disease, although neoplasia is not excluded. D/ / Hiram Watson MD / Hiram Watson MD Interpreting Provider: Hiram Watson MD Chest CTA 10/01/16 13:33 IMPRESSION: 1. No findings of pulmonary embolism. 2. Moderate cardiomegaly with mild right ventricular hypertrophy and mild left ventricular septal hypertrophy. There is suspicion for associated pulmonary hypertension given marked dilation of the pulmonary arteries, and there is suspicion for some degree of right heart dysfunction given reflux of the contrast bolus. 3. Persistent peripancreatic stranding suggestive of pancreatitis. There are no findings of pancreatic necrosis or hemorrhage. 4. Unchanged trace to small right pleural effusion, trace to small pericardial effusion, and moderate anasarca with minimally increased trace ascites, most likely related to cardiac and/or renal dysfunction. 5. Lucent lesions subjacent to the L2 and L3 superior endplates were not present on 02/19/2013. The locations suggest benign Schmorl's nodes related to degenerative disc disease, although neoplasia is not excluded. D/ / Hiram Watson MD / Hiram Watson MD Interpreting Provider: Hiram Watson MD X-Ray 10/01/16 21:36 IMPRESSION: Enteric tube tip projects over the expected location of the distal stomach with side port well below the GE junction. D/ / Yuriy Davison MD / Yuriy Davison MD Interpreting Provider: Yuriy Davison MD Chest X-Ray 10/02/16 06:00 IMPRESSION: Stable life support system and central line. Persistent congestion and bilateral lower lobe infiltrates as well as small left effusion. D/ / 10/02/2016 07:25:56 Masha Wang MD / [facility] Interpreting Provider: Masha Wang MD - Clinical Findings Intake & Output: Intake & Output 10/01/16 10/01/16 10/02/16 15:59 23:59 07:59 Intake Total 500 / 500 233 / 233 Output Total 150 / 150 Balance 500 / 500 83 / 83 Weight 131.4 kg 130.266 kg Consult Discharge Plan - Plan Referrals: NO,PCP [Primary Care Provider] - <Lucho Wilhelm - Last Filed: 10/02/16 14:11> Date of Encounter: 10/02/16 Objective PUL Vital signs: Last Vital Signs Temp 98.2 F 10/02/16 07:15 Pulse 107 10/02/16 13:00 Resp 12 10/02/16 13:00 BP 77/54 10/02/16 13:00 Pulse Ox 92 10/02/16 13:00 Ventilator Settings Ventilator Settings: Ventilator Settings, Last 8 Hours Ventilator Mode CPAP Ventilator Tidal Volume 500 Setting Actual Respiratory Rate 12 Positive End Expiratory 5 Pressure Peak Inspiratory Airway 16 Pressure Results - Laboratory Findings CBC and BMP: 10/02/16 05:20 10/02/16 05:20 ABG ABG pH 7.25 pH Units (7.32-7.45) L 10/02/16 04:55 ABG pCO2 60 mmHg (35-45) H 10/02/16 04:55 ABG pO2 78 mmHg (85-104) L 10/02/16 04:55 ABG O2 Saturation 93 % (95-98) L 10/02/16 04:55 PT/INR, D-dimer PT 23.0 Seconds (9.4-12.1) H 10/02/16 06:15 Abnormal lab findings: Abnormal lab results RBC 3.82 M/mcL (4.19-5.50) L 10/02/16 05:20 Hgb 10.4 g/dL (12.9-16.9) L 10/02/16 05:20 Hct 33.6 % (37.5-50.1) L 10/02/16 05:20 MCH 27.2 pg (28.0-33.3) L 10/02/16 05:20 MCHC 31.0 g/dL (31.6-35.5) L 10/02/16 05:20 RDW 17.3 % (11.5-14.5) H 10/02/16 05:20 Plt Count 94 K/mcL (140-400) L 10/02/16 05:20 Nucleated RBCs/100 WBC 0.3 /100 WBC (0) H 10/02/16 05:20 Platelet Estimate Decreased (Normal) L 10/02/16 05:20 PT 23.0 Seconds (9.4-12.1) H 10/02/16 06:15 APTT 39.9 Seconds (26.0-36.0) H 10/01/16 12:52 ABG pH 7.25 pH Units (7.32-7.45) L 10/02/16 04:55 ABG pCO2 60 mmHg (35-45) H 10/02/16 04:55 ABG pO2 78 mmHg (85-104) L 10/02/16 04:55 ABG Total CO2 28.1 mEq/L (20-26) H 10/02/16 04:55 ABG O2 Saturation 93 % (95-98) L 10/02/16 04:55 BUN 54 mg/dL (8-26) H 10/02/16 05:20 Creatinine 8.01 mg/dL (0.72-1.25) H 10/02/16 05:20 Est GFR ( Amer) 9 (> 60) L 10/02/16 05:20 Est GFR (Non-Af Amer) 7 (> 60) L 10/02/16 05:20 Glucose 100 mg/dL (70-99) H 10/02/16 05:20 Calcium 8.1 mg/dL (8.6-10.8) L 10/02/16 05:20 Ionized Calcium 1.03 mmol/L (1.15-1.35) L 10/02/16 05:20 Phosphorus 5.4 mg/dL (2.3-4.7) H 10/02/16 05:20 Alkaline Phosphatase 327 Units/L (38-126) H 10/02/16 05:20 Troponin I 0.08 ng/mL (0-0.03) H* 10/01/16 12:52 Albumin 2.8 g/dL (3.5-5.0) L 10/02/16 05:20 Albumin/Globulin Ratio 0.8 (1.1-2.2) L 10/02/16 05:20
[2016-10-02] MEDS ORDERED: Lacri-Lube 3.5 GM TUBE BOTH EYES SCH (08:00)
[2016-10-02] MEDS: Calcium Acetate 667 MG CAPSULE PO SCH ×3 (08:24→17:07)
[2016-10-02] MEDS: *HR* Amiodarone 200 MG TABLET PO SCH ×2 (08:52→21:20)
[2016-10-02] MEDS: Chlorhexidine Rinse 15 ML MOUTHWASH MM SCH ×2 (08:52→21:20)
[2016-10-02] MEDS: Pantoprazole 40 MG VIAL IVP SCH (08:53)
[2016-10-02] MEDS: Nicotine 21 MG PATCH.TD24 TD SCH (08:53)
[2016-10-02] MEDS: Renal Vitamin 1 MG CAPSULE PO SCH (08:54)
[2016-10-02] MEDS: Piperacillin/Tazobactam 3.375 GM in D5% in Water (Mini-Bag+) 100 ML IVPB SCH (08:54)
[2016-10-02] MEDS ORDERED: Insulin DETEMIR 100 UNIT/ML X5UNITS SQ SCH (09:00)
[2016-10-02] MEDS: Ammonium Lactate 30 APPL/225 GM BOTTLE TP SCH ×2 (09:04→21:43)
--- NOTE | 2016-10-02 10:00 | Nephrology Consult Note ---
Date of Encounter: 10/02/16 Time of Encounter: 09:15 Assessment and Plan (1) End stage renal disease on dialysis Current Visit: No Status: Chronic Acute on chronic hypercapneic respiratory failure. Altered mental status. Hypotension, currently not on pressors. ESRD, will dialyze today, keeping MWF schedule. Orders given. History of Present Illness - Reason for Consult end stage renal disease - History of Present Illness Mr. Hatch is a 45 year old male with ESRD who dialyzes in [place] on MWF. Last dialysis on Wednesday. Other PMH-CHF, cardiomyopathy, HTN, DM II, COPD, hypercapnic respiratory failure. Mr. Hatch presented to ER from nursing facility with altered mental status, and hypotension. Showed hypercapneic respiratory failure requiring BiPAP. Received 2L fluid bolus for hypotension. Transferred to ICU. He became increasingly agitated with worsening blood gases and was ultimately intubated. Currently sedated, intubated. No pressors at current time. Does open eyes when name called. Past Med Surg Social Fam HX - Past Medical History Medical history: arthritis, cardiomyopathy, CHF, COPD, diabetes, dialysis, GERD , hyperlipidemia, hypertension, osteoporosis, renal disease, other Psychiatric history: anxiety, depression, other - Past Surgical History Surgical History: herniorrhaphy, vascular surgery, other - Social History Smoking Status: Current every day smoker Smokeless Tobacco Status: No Alcohol use: none, unknown Drug use: marijuana, other - Family History Father Living Status: Mother Adopted: No Living Status: Still Living Hx Family Cardiac Disorders: Yes Hx Family Endocrine Disorder: Yes Medications and Allergies Insulin Glargine,Hum.rec.anlog [Lantus Solostar] 30 unit SQ BID #0 01/07/15 [ History] [place] Oil/Campbell-3 Fatty Acids [Fish Oil 500 mg Softgel] 1 cap PO DAILY #0 [History] Rosuvastatin [Crestor] 20 mg PO DAILY tablet 01/08/15 [Rx] Carvedilol [Coreg] 50 mg PO BIDWM 01/24/16 [History] Duloxetine HCl [Cymbalta] 60 mg PO DAILY 01/24/16 [History] Lidocaine/Prilocaine CREAM [Emla] 1 appl TP AD PRN 01/24/16 [History] Pantoprazole Sodium [Protonix] 40 mg PO DAILY 01/24/16 [History] Renal Vitamin [Renal Caps Softgel] 1 mg PO DAILY 01/24/16 [History] Ammonium Lactate 1 appl TP BID 09/02/16 [History] Cinacalcet HCl [Sensipar] 60 mg PO DAILY 09/02/16 [History] hydrALAZINE [HydrALAZINE] 25 mg PO BID 09/02/16 [History] Amiodarone [Cordarone] 200 mg PO BID tablet 09/19/16 [Rx] Calcium Acetate [Phos-LO] 1,334 mg PO TIDWM capsule 09/19/16 [Rx] Docusate [Colace] 100 mg PO BID PRN #0 capsule 09/19/16 [Rx] Ipratropium Neb [Atrovent Neb] 0.5 mg IH TIDR inhsol 09/19/16 [Rx] Levalbuterol Neb [Xopenex Neb] 0.63 mg IH TIDR vial.neb 09/19/16 [Rx] Nicotine Patch [Nicoderm] 21 mg TD DAILY patch.td24 09/19/16 [Rx] Tetrahydrozoline [Visine] 1 drop BOTH EYES QID PRN 09/29/16 [History] Warfarin [Coumadin] 5 mg PO Q48H 09/29/16 [History] Warfarin [Coumadin] 7.5 mg PO Q48H 09/29/16 [History] Pregabalin [Lyrica] 50 mg PO BID #14 capsule 09/30/16 [Rx] cephALEXin [Cephalexin] 500 mg PO BID 4 Days 09/30/16 [Rx] Allergies hydrocodone [From [place]] Allergy (Intermediate, Verified 09/29/16 16:59) Hives Review of Systems ROS unobtainable: due to endotracheal tube Exam - Vital Signs Vital signs: Initial Vital Signs Temp Pulse Resp BP Pulse Ox 97.7 F 92 18 76/50 91 10/01/16 12:36 10/01/16 12:36 10/01/16 12:36 10/01/16 12:36 10/01/16 12:36 Vital Signs - Last 8 Hours Temp Pulse Resp BP Pulse Ox 10/02/16 09:43 20 76/52 94 10/02/16 09:00 117 20 80/56 93 10/02/16 08:00 114 20 80/61 93 10/02/16 07:52 20 80/60 94 10/02/16 07:30 116 95 10/02/16 07:15 98.2 F 10/02/16 07:00 115 20 89/57 95 10/02/16 06:16 132 18 85/54 95 10/02/16 05:33 18 85/54 97 10/02/16 05:00 112 18 87/55 96 10/02/16 04:15 98.2 F 112 18 78/52 96 10/02/16 03:10 18 101/63 96 10/02/16 03:00 112 18 101/63 97 10/02/16 02:00 120 18 102/64 96 10/02/16 01:52 18 73/54 97 Intake and Output 10/01/16 10/02/16 10/02/16 23:59 07:59 15:59 Intake Total 500 / 500 233 / 233 Output Total 150 / 150 Balance 500 / 500 83 / 83 Intake: IV Fluids 500 / 500 233 / 233 0.9 % Sodium Chloride 500 500 / 500 ML @ 1875 mls/hr IVC . Q16M ONE Rx#:[id number] Levophed 4 MG In Dextrose 133 / 133 5% 250 ML @ 8 MCG/MIN 30 mls/hr IVC CONT [place] Rx#: [id number] Zosyn 3.375 GM In 100 / 100 Dextrose 5% (Minibag+) 100 ML 100 ML @ 25 mls/hr IVPB Q12H [facility] Rx#: [id number] Oral 0 / 0 0 / 0 Output: Gastric Drainage 150 / 150 Other: Weight 131.4 kg 130.266 kg Blood Glucose* 178 178 Patient Weight 10/02/16 23:59 Weight 130.266 kg - General Appearance General appearance: well-developed, well-nourished, appears started age, obese EENT: mucous membranes moist Neck: no JVD Respiratory: course breath sounds Cardiology: edema, regular rate, regular rhythm Additional Comments: pitting LE, chronic vascular skin changes - Dialysis Access Dialysis Vascular Access: Arteriovenous Graft Additional Comments: left Gastrointestinal: normoactive bowel sounds Integumentary: warm and dry Results - Lab Results 10/02/16 05:20 10/02/16 05:20 Most recent lab results ABG pH 7.25 pH Units (7.32-7.45) L 10/02/16 04:55 ABG pCO2 60 mmHg (35-45) H 10/02/16 04:55 ABG pO2 78 mmHg (85-104) L 10/02/16 04:55 ABG HCO3 26.3 mEQ/L (21-27) 10/02/16 04:55 ABG O2 Saturation 93 % (95-98) L 10/02/16 04:55 Calcium 8.1 mg/dL (8.6-10.8) L 10/02/16 05:20 Phosphorus 5.4 mg/dL (2.3-4.7) H 10/02/16 05:20 Magnesium 1.8 mg/dL (1.6-2.6) 10/02/16 05:20 Consult Discharge Plan - Plan Referrals: NO,PCP [Primary Care Provider] -
[2016-10-02] MEDS ORDERED: 0.9 % Sodium Chloride 250 ML IVC PRN (10:23)
[2016-10-02] MEDS ORDERED: 0.9 % Sodium Chloride 1,000 ML PRIME SCH (10:30)
[2016-10-02] MEDS: Dexmedetomidine HCl 400 MCG/100 ML MLS IVC SCH ×2 (12:40→22:18)
[2016-10-02 12:48] LABS: Hepatitis B Surface Antigen Nonreactive (Nonreactive)
[2016-10-02] MEDS ORDERED: Albumin 25% 12.5gm/50mL 25.0 GM/100 ML IV.SOLN ONE (14:39)
[2016-10-02] MEDS ORDERED: 0.9 % Sodium Chloride 2,000 ML ONE (16:30)
[2016-10-02] MEDS ORDERED: Albumin 25% 12.5gm/50mL 12.5 GM/50 ML IV.SOLN IVPB ONE (16:33)
--- NOTE | 2016-10-02 16:41 | Electrocardiograph Report ---
[address] [place], [place] [address] Test Date: 2016-10-01 Pat Name: Eduar Hatch Department: 109 Room: [facility] Gender: M Photo Manager: : [id number] Requested By: Napoleon Gibson Order Number: [id number] Reading MD: Mago Carson Measurements Intervals [place] Rate: 101 P: NH: 0 QRS: 111 QRSD: 109 T: 38 QT: 387 QTc: 445 Interpretive Statements ATRIAL FLUTTER WITH RAPID VENTRICULAR RESPONSE MARKED RIGHT AXIS DEVIATION LOW QRS VOLTAGE IN EXTREMITY LEADS PATTERN CONSISTENT WITH PULMONARY DISEASE Electronically Signed On 10-02-2016 16:39:39 EDT by Mago Carson
[2016-10-02] MEDS ORDERED: *HR* Warfarin 7.5 MG TABLET PO SCH (18:00)
[2016-10-03] MEDS: Insulin LISPRO 300 UNITS/3 ML VIAL SQ SCH ×4 (01:30→17:14)
[2016-10-03] MEDS: Ipratropium Neb 0.5 MG NEBULIZER IH SCH ×3 (02:04→17:20)
[2016-10-03] MEDS: Levalbuterol Neb 0.63 MG/3 ML IH SCH ×3 (02:04→17:21)
[2016-10-03] MEDS: Dexmedetomidine HCl 400 MCG/100 ML MLS IVC SCH (02:21)
[2016-10-03 04:04] LABS: Basophils % 0.4 %; Immature Granulocytes % 0.4 % (0-4)
[2016-10-03 04:06] LABS: Eosinophils # 0.1 K/mcL (0.0-0.6); Eosinophils % 2.1 %; Hematocrit 36.8 % (37.5-50.1); Hemoglobin 11.4 g/dL (12.9-16.9); Immature Platelets 5.1 % (1.1-6.1); Lymphocytes % 15.2 %; Mean Corpuscular Hemoglobin 26.6 pg (28.0-33.3); Mean Platelet Volume 10.8 fL (9.4-12.4); Monocytes # 0.7 K/mcL (0.0-1.3); Monocytes % 10.4 %; Neutrophils # 4.9 K/mcL (1.6-8.9); Red Blood Count 4.28 M/mcL (4.19-5.50); Red Cell Distribution Width 17.4 % (11.5-14.5); Segmented Neutrophils % 71.5 %
[2016-10-03 04:07] LABS: Platelet Count 83 K/mcL (140-400)
[2016-10-03 04:26] LABS: Calcium 8.6 mg/dL (8.6-10.8); Magnesium 1.8 mg/dL (1.6-2.6); Phosphorous 4.6 mg/dL (2.3-4.7); Potassium 4.3 mEq/L (3.5-4.5)
[2016-10-03] MEDS: Norepinephrine 4 MG in D5% in Water 250 ML IVC SCH (04:31)
[2016-10-03] MEDS: FentaNYL (PF) 1,000 MCG in 0.9 % Sodium Chloride 80 ML IVC SCH (05:58)
--- NOTE | 2016-10-03 06:33 | Pulmonology Progress Note ---
Date of Encounter: 10/03/16 Time of Encounter: 06:33 Assessment and Plan (1) Acute and chronic respiratory failure with hypercapnia Current Visit: Yes Status: Acute secondary to severe sleep apnea presented with elevated CO2 likely a result of medications and non-compliance intubated 10/01 CTA Chest 10/01 - no evidence of PE and suspicion for pulm hypertension, no acute pulmonary findings to suggest pneumonia - discontinued Zosyn and Vanc CPAP trial all yesterday 10/02 during HD and tolerating well this morning 10/03 plan to extubate - awake alert and following commands - extubated 10/03 (2) Altered mental status Current Visit: No Status: Acute improving, alert and oriented likely secondary to CO2 narcosis and sedating medications off sedating medications CT head 10/01 - no acute abnormalities, small amoutn of air in the venous system ESRD MWF, last HD 10/02 continue to monitor reassess after extubation Qualifiers: Altered mental status type: unspecified Qualified Code(s): R41.82 - Altered mental status, unspecified (3) Hypotension Current Visit: Yes Status: Acute unclear etiology improved possibly secondary to medication error - takes hydralazine 25 BID, Coreg 50 BID, and Amiodarone 200 BID according to medical record medication list baseline SBP at last hospitalization in the 90s currently SBP 100-110s normal lactate 0.6 without clinical signs of hypoperfusion 2L fluid resuscitation in the ED goal MAP >60 Norepi given yesterday for dialysis, has been off all night Qualifiers: Hypotension type: unspecified hypotension type Qualified Code(s): I95.9 - Hypotension, unspecified (4) End stage renal disease on dialysis Current Visit: No Status: Chronic Nephrology consulted continue scheduled HD MWF left forearm AV fistula (5) Systolic heart failure Current Visit: Yes Status: Acute history of nonischemic cardiomyopathy hold BP meds secondary to hypotension resume home meds when more stable last QUIQUE 09/03/16 showed reduced EF 20%, moderate diastolic dysfunction, moderate RV hypokinesis, no pulm hypertension Qualifiers: Heart failure chronicity: unspecified heart failure chronicity Qualified Code(s): I50.20 - Unspecified systolic (congestive) heart failure (6) Nonischemic cardiomyopathy Current Visit: No Status: Chronic thought to be secondary to unctonrolled HTN (7) Atrial fibrillation Current Visit: No Status: Acute currently rate controlled continue amiodarone can add Coreg once BP improves AVOID Cardizem due to low EF 20% coumadin for AC monitor INR, last 2.1 Qualifiers: Atrial fibrillation type: paroxysmal Qualified Code(s): I48.0 - Paroxysmal atrial fibrillation (8) Severe sleep apnea Current Visit: Yes Status: Acute AHI 113 on latest sleep study currently intubated, CPAP trial BiPAP at night once extubated Precedex for sedation PRN (9) Cellulitis of abdominal wall Current Visit: Yes Status: Acute discharged on last admission with PO Keflex for total of 4 days BID will continue until 10/05 (10) Obesity (BMI 30-39.9) Current Visit: No Status: Chronic (11) Diabetes mellitus type 2, uncontrolled, with complications Current Visit: No Status: Chronic ADA/Cardiac diet once extubated low dose ISS continue to monitor blood glucose Qualifiers: Diabetes mellitus termite treater helper insulin use: with termite treater helper use Qualified Code( s): E11.8 - Type 2 diabetes mellitus with unspecified complications; E11.65 - Type 2 diabetes mellitus with hyperglycemia; Z79.4 - correction (current) use of insulin (12) Goals of care, counseling/discussion Current Visit: Yes Status: Acute currently intubated and remains full code will further address once family present (13) DVT prophylaxis Current Visit: No Status: Acute on Coumadin for A fib Subjective Principal diagnosis: AMS, Respiratory failure Interval history: No major events overnight. Patient seen and examined at bedside. He appears in no acute distress. He is awake alert and follow simple commands. He is tolerating CPAP trial very well. He denies any chest pain or abdominal pain by shaking his head no. Expresses desire to remove endotracheal tube. Plan to extubate. Objective PUL Vital signs: Last Vital Signs Temp 99.0 F 10/03/16 05:11 Pulse 105 10/03/16 06:00 Resp 19 10/03/16 06:17 BP 112/95 10/03/16 06:17 Pulse Ox 98 10/03/16 06:17 General appearance: no acute distress, alert Eyes: nonicteric, other (PERRL) ENT: other (Endotracheal intubation) Neck: supple Effort: normal (On mechanical ventilator tolerating CPAP trial, able to take full deep breaths) Auscultation: bilateral: clear Cardiovascular: regular rate and rhythm Gastrointestinal: normoactive bowel sounds, soft (Obese), non-tender, non- distended, other (Erythema) Integumentary: other (Chronic venous stasis to bilateral lower extremities, no obvious signs of infection or drainage) Extremities: edema (+2 pitting edema), other (AV fistula left forearm with palpable thrill and audible bruit) Musculoskeletal: no deformities, ROM normal non-focal exam, pupils equal and round, unable to assess due to mental status ( Intubated, follows commands) Ventilator Settings Ventilator Settings: Ventilator Settings, Last 8 Hours Ventilator Mode CPAP Ventilator Mode VC+ Ventilator Mode VC+ Ventilator Mode VC+ Ventilator Mode VC+ Ventilator Mode VC+ Ventilator Mode VC+ Ventilator Mode VC+ Ventilator Mode VC+ Ventilator Mode VC+ Ventilator Mode CPAP Ventilator Mode VC+ Ventilator Tidal Volume 500 Setting Ventilator Tidal Volume 500 Setting Ventilator Tidal Volume 500 Setting Ventilator Tidal Volume 500 Setting Ventilator Tidal Volume 500 Setting Ventilator Tidal Volume 500 Setting Ventilator Tidal Volume 500 Setting Ventilator Tidal Volume 500 Setting Ventilator Tidal Volume 500 Setting Ventilator Tidal Volume 500 Setting Ventilator Tidal Volume 500 Setting Ventilator Respiratory Rate 20 Setting Ventilator Respiratory Rate 20 Setting Ventilator Respiratory Rate 20 Setting Ventilator Respiratory Rate 20 Setting Ventilator Respiratory Rate 20 Setting Ventilator Respiratory Rate 20 Setting Ventilator Respiratory Rate 20 Setting Ventilator Respiratory Rate 20 Setting Ventilator Respiratory Rate 20 Setting Ventilator Respiratory Rate 20 Setting Ventilator Respiratory Rate 20 Setting Actual Respiratory Rate 19 Actual Respiratory Rate 20 Actual Respiratory Rate 20 Actual Respiratory Rate 20 Actual Respiratory Rate 20 Actual Respiratory Rate 20 Actual Respiratory Rate 20 Actual Respiratory Rate 20 Actual Respiratory Rate 20 Actual Respiratory Rate 20 Actual Respiratory Rate 20 Actual Respiratory Rate 20 Positive End Expiratory 5 Pressure Positive End Expiratory 5 Pressure Positive End Expiratory 5 Pressure Positive End Expiratory 5 Pressure Positive End Expiratory 5 Pressure Positive End Expiratory 5 Pressure Positive End Expiratory 5 Pressure Positive End Expiratory 5 Pressure Positive End Expiratory 5 Pressure Positive End Expiratory 5 Pressure Positive End Expiratory 5 Pressure Positive End Expiratory 5 Pressure Peak Inspiratory Airway 16 Pressure Peak Inspiratory Airway 31 Pressure Peak Inspiratory Airway 30 Pressure Peak Inspiratory Airway 32 Pressure Peak Inspiratory Airway 31 Pressure Peak Inspiratory Airway 31 Pressure Peak Inspiratory Airway 33 Pressure Peak Inspiratory Airway 33 Pressure Peak Inspiratory Airway 32 Pressure Peak Inspiratory Airway 33 Pressure Peak Inspiratory Airway 34 Pressure Peak Inspiratory Airway 34 Pressure Results - Laboratory Findings CBC and BMP: 10/03/16 03:50 10/03/16 03:50 ABG ABG pH 7.25 pH Units (7.32-7.45) L 10/02/16 04:55 ABG pCO2 60 mmHg (35-45) H 10/02/16 04:55 ABG pO2 78 mmHg (85-104) L 10/02/16 04:55 ABG O2 Saturation 93 % (95-98) L 10/02/16 04:55 PT/INR, D-dimer PT 23.0 Seconds (9.4-12.1) H 10/02/16 06:15 Abnormal lab findings: Abnormal lab results Hgb 11.4 g/dL (12.9-16.9) L 10/03/16 03:50 Hct 36.8 % (37.5-50.1) L 10/03/16 03:50 MCH 26.6 pg (28.0-33.3) L 10/03/16 03:50 MCHC 31.0 g/dL (31.6-35.5) L 10/03/16 03:50 RDW 17.4 % (11.5-14.5) H 10/03/16 03:50 Plt Count 83 K/mcL (140-400) L 10/03/16 03:50 Nucleated RBCs/100 WBC 0.3 /100 WBC (0) H 10/02/16 05:20 Platelet Estimate Decreased (Normal) L 10/02/16 05:20 PT 23.0 Seconds (9.4-12.1) H 10/02/16 06:15 APTT 39.9 Seconds (26.0-36.0) H 10/01/16 12:52 ABG pH 7.25 pH Units (7.32-7.45) L 10/02/16 04:55 ABG pCO2 60 mmHg (35-45) H 10/02/16 04:55 ABG pO2 78 mmHg (85-104) L 10/02/16 04:55 ABG Total CO2 28.1 mEq/L (20-26) H 10/02/16 04:55 ABG O2 Saturation 93 % (95-98) L 10/02/16 04:55 Sodium 135 mEq/L (136-145) L 10/03/16 03:50 BUN 35 mg/dL (8-26) H D 10/03/16 03:50 Creatinine 6.04 mg/dL (0.72-1.25) H 10/03/16 03:50 Est GFR ( Amer) 12 (> 60) L 10/03/16 03:50 Est GFR (Non-Af Amer) 10 (> 60) L 10/03/16 03:50 POC Glucose 92 (58-89) H 10/03/16 06:15 Ionized Calcium 1.03 mmol/L (1.15-1.35) L 10/02/16 05:20 Alkaline Phosphatase 327 Units/L (38-126) H 10/02/16 05:20 Troponin I 0.08 ng/mL (0-0.03) H* 10/01/16 12:52 Albumin 2.8 g/dL (3.5-5.0) L 10/02/16 05:20 Albumin/Globulin Ratio 0.8 (1.1-2.2) L 10/02/16 05:20 - Clinical Findings Intake & Output: Intake & Output 10/02/16 10/02/16 10/03/16 15:59 23:59 07:59 Intake Total 600 / 740 97.6 / 97.6 193.4 / 193.4 Output Total 0 / 0 610 / 610 0 / 0 Balance 600 / 740 -512.4 / -512.4 193.4 / 193.4 Weight 131.4 kg Consult Discharge Plan - Plan Referrals: NO,PCP [Non-Partnered Physician] -
[2016-10-03] MEDS: Calcium Acetate 667 MG CAPSULE PO SCH ×3 (07:22→16:55)
--- NOTE | 2016-10-03 08:09 | Nephrology Progress Note ---
Date of Encounter: 10/03/16 Time of Encounter: 07:45 - Assessment and Plan (1) End stage renal disease on dialysis Current Visit: No Status: Chronic Acute on chronic hypercapneic respiratory failure. Altered mental status, currently alert, cooperative. Hypotension, currently not on pressors. ESRD, no dialysis today, K 4.3 Subjective Principal diagnosis: AMS, Respiratory failure Interval history: Remains intubated. No pressors, no sedation. Alert, nodding head to questions. Objective - Vital Signs Vital signs: Vital Signs Temp Pulse Resp BP Pulse Ox 10/03/16 07:52 23 100/79 98 10/03/16 07:32 106 10/03/16 07:31 98.9 F 10/03/16 07:17 98 10/03/16 07:00 103 23 97/76 98 10/03/16 06:17 19 112/95 98 10/03/16 06:00 105 20 112/95 98 10/03/16 05:30 106 20 112/88 98 10/03/16 05:11 99.0 F 10/03/16 04:25 20 115/91 95 10/03/16 04:00 109 20 115/91 98 10/03/16 03:00 110 20 102/69 99 10/03/16 02:07 98 10/03/16 02:04 20 107/81 98 10/03/16 02:00 108 20 107/81 96 10/03/16 01:00 112 20 114/83 96 10/03/16 00:52 99.1 F 10/03/16 00:00 112 20 111/85 97 10/02/16 23:47 20 113/89 96 10/02/16 23:00 105 20 114/84 96 10/02/16 22:00 113 20 113/85 96 10/02/16 21:59 20 112/86 95 10/02/16 21:15 113 20 107/73 96 10/02/16 20:55 99.1 F 10/02/16 20:45 115 20 98/63 97 10/02/16 20:19 22 114/80 100 10/02/16 19:55 121 20 119/83 97 10/02/16 19:26 98.3 F 18 119/79 10/02/16 19:00 121 107/76 10/02/16 18:45 109/73 10/02/16 18:30 104/79 10/02/16 18:25 12 77/54 93 10/02/16 18:15 100/77 10/02/16 18:00 117 16 102/73 99 10/02/16 17:45 100/70 10/02/16 17:33 17 93/74 100 10/02/16 17:30 93/74 10/02/16 17:15 103/65 10/02/16 17:00 117 16 100/71 98 10/02/16 16:45 99/66 10/02/16 16:30 104/61 10/02/16 16:15 102/69 10/02/16 16:00 98.3 F 116 17 102/69 100 10/02/16 15:45 99/59 10/02/16 15:41 17 96/63 98 10/02/16 15:30 99 91/62 10/02/16 15:15 91/64 10/02/16 15:00 121 26 92/48 93 10/02/16 14:45 97/66 10/02/16 14:30 98.2 F 22 96/61 10/02/16 14:00 114 15 90/59 96 10/02/16 13:00 107 12 77/54 92 Intake and Output 10/02/16 10/03/16 10/03/16 23:59 07:59 15:59 Intake Total 97.6 / 97.6 193.4 / 193.4 Output Total 610 / 610 0 / 0 Balance -512.4 / -512.4 193.4 / 193.4 Intake: IV Fluids 97.6 / 97.6 193.4 / 193.4 PRECEDEX 400 mcg In 100 87.4 / 87.4 193.4 / 193.4 ml @ 0.2 MCG/KG/HR 6.513 mls/hr IVC .[id number] [facility] Rx#:[id number] Levophed 4 MG In Dextrose 10.2 / 10.2 5% 250 ML @ 8 MCG/MIN 30 mls/hr IVC CONT [facility] Rx#: [id number] Oral 0 / 0 Output: Urine 0 / 0 0 / 0 Total Dialysis Output 600 / 600 Gastric Drainage Other: Weight 131.4 kg Blood Glucose* 87 92 Hemodialysis Net Fluid 0 Removed (mL) Patient Weight 10/03/16 23:59 Weight 131.4 kg - General Appearance General appearance: Present: well-developed, well-nourished, appears started age , obese EENT: Present: mucous membranes moist Neck: Present: no JVD Respiratory: Present: clear Cardiology: Present: edema, irregular rhythm Additional Comments: mild pitting, chronic vascular skin changes. Gastrointestinal: Present: normoactive bowel sounds, no tenderness Integumentary: Present: warm and dry Psychiatric: Present: mood/affect appropriate, cooperative - Lab 10/03/16 03:50 10/03/16 03:50 Most recent lab results ABG pH 7.25 pH Units (7.32-7.45) L 10/02/16 04:55 ABG pCO2 60 mmHg (35-45) H 10/02/16 04:55 ABG pO2 78 mmHg (85-104) L 10/02/16 04:55 ABG HCO3 26.3 mEQ/L (21-27) 10/02/16 04:55 ABG O2 Saturation 93 % (95-98) L 10/02/16 04:55 Calcium 8.6 mg/dL (8.6-10.8) 10/03/16 03:50 Phosphorus 4.6 mg/dL (2.3-4.7) 10/03/16 03:50 Magnesium 1.8 mg/dL (1.6-2.6) 10/03/16 03:50 Consult Discharge Plan - Plan Referrals: NO,PCP [Primary Care Provider] -
[2016-10-03] MEDS: Renal Vitamin 1 MG CAPSULE PO SCH ×2 (08:28→09:28)
[2016-10-03] MEDS ORDERED: cephALEXin 500 MG CAPSULE PO SCH (09:00)
[2016-10-03] MEDS: Nicotine 21 MG PATCH.TD24 TD SCH (09:26)
[2016-10-03] MEDS: Pantoprazole 40 MG VIAL IVP SCH (09:26)
[2016-10-03] MEDS: Chlorhexidine Rinse 15 ML MOUTHWASH MM SCH (09:26)
[2016-10-03] MEDS: *HR* Amiodarone 200 MG TABLET PO SCH ×2 (09:27→20:43)
[2016-10-03] MEDS: Ammonium Lactate 30 APPL/225 GM BOTTLE TP SCH ×2 (09:28→20:44)
[2016-10-03] MEDS ORDERED: Pregabalin 50 MG CAPSULE PO SCH (12:00)
[2016-10-03] MEDS ORDERED: Dextrose Gel 15 GM PO PRN ×4 (13:14→17:10)
[2016-10-03] MEDS ORDERED: *HR* Dextrose 50 % in Water (Syg) 50 ML SYRINGE IVP PRN ×2 (13:14→17:10)
[2016-10-03] MEDS ORDERED: Tetrahydrozoline 15 ML BOTTLE BOTH EYES PRN (13:14)
[2016-10-03] MEDS ORDERED: D5% in Water 1,000 ML IVC PRN ×2 (13:14→17:10)
[2016-10-03] MEDS ORDERED: 0.9 % Sodium Chloride 250 ML IVC PRN (13:14)
[2016-10-03] MEDS ORDERED: 0.9 % Sodium Chloride 1,000 ML PRIME SCH (13:14)
[2016-10-03] MEDS ORDERED: Naloxone 0.4 MG/ML INJ IVP PRN (13:14)
[2016-10-03] MEDS ORDERED: Insulin LISPRO 300 UNITS/3 ML VIAL SQ SCH ×2 (18:00→21:00)
[2016-10-03] MEDS ORDERED: *HR* Warfarin 5 MG TABLET PO SCH (18:00)
[2016-10-03] MEDS: cephALEXin 500 MG CAPSULE PO SCH (20:43)
[2016-10-03] MEDS: Pregabalin 50 MG CAPSULE PO SCH (20:43)
[2016-10-03] MEDS ORDERED: traMADol 50 MG TABLET PO PRN (20:44)
[2016-10-04] MEDS: Ipratropium Neb 0.5 MG NEBULIZER IH SCH ×2 (02:55→09:58)
[2016-10-04] MEDS: Levalbuterol Neb 0.63 MG/3 ML IH SCH ×2 (02:55→09:58)
[2016-10-04 04:34] LABS: Basophils % 0.5 %; Eosinophils # 0.2 K/mcL (0.0-0.6); Eosinophils % 2.7 %; Hematocrit 33.1 % (37.5-50.1); Hemoglobin 10.2 g/dL (12.9-16.9); Immature Granulocytes % 0.2 % (0-4); Immature Platelets 4.3 % (1.1-6.1); Lymphocytes # 0.8 K/mcL (0.6-4.6); Lymphocytes % 14.5 %; Mean Corpuscular HGB Conc 30.8 g/dL (31.6-35.5); Mean Corpuscular Hemoglobin 26.9 pg (28.0-33.3); Mean Corpuscular Volume 87.3 fL (83.0-100.0); Mean Platelet Volume 10.2 fL (9.4-12.4); Monocytes # 0.7 K/mcL (0.0-1.3); Monocytes % 13.4 %; Neutrophils # 3.8 K/mcL (1.6-8.9); Red Blood Count 3.79 M/mcL (4.19-5.50); Red Cell Distribution Width 17.4 % (11.5-14.5); Segmented Neutrophils % 68.7 %
[2016-10-04 04:35] LABS: Platelet Count 76 K/mcL (140-400)
[2016-10-04 04:40] LABS: Calcium 7.5 mg/dL (8.6-10.8); Magnesium 2.1 mg/dL (1.6-2.6); Phosphorous 6.2 mg/dL (2.3-4.7); Potassium 4.9 mEq/L (3.5-4.5)
--- NOTE | 2016-10-04 08:18 | Nephrology Progress Note ---
Date of Encounter: 10/04/16 Time of Encounter: 07:50 - Assessment and Plan (1) End stage renal disease on dialysis Current Visit: No Status: Chronic Acute on chronic hypercapneic respiratory failure. Altered mental status, currently alert, cooperative. Hypotension, currently not on pressors. ESRD, no dialysis today, K 4.9. HD tomorrow, keeping MWF schedule. If discharged back to nursing facility, will dialyze at [place] Subjective Principal diagnosis: AMS, Respiratory failure Interval history: Transferred to . States feeling better. Denies JESSICA. Objective - Vital Signs Vital signs: Vital Signs Temp Pulse Resp BP Pulse Ox 10/04/16 07:45 95 10/04/16 07:09 98.4 F 117 16 103/68 95 10/04/16 04:48 98.4 F 109 16 108/64 92 10/04/16 00:03 98.2 F 109 18 99/63 94 10/03/16 19:41 97.5 F L 92 18 104/65 95 10/03/16 17:20 18 98 10/03/16 14:49 97.5 F L 118 17 110/69 98 10/03/16 13:00 114 22 108/74 92 10/03/16 12:00 97.8 F 114 24 104/71 92 10/03/16 11:30 120 10/03/16 11:00 112 22 111/90 94 10/03/16 10:00 102 20 97/75 93 10/03/16 09:21 20 103/74 93 10/03/16 09:11 103/75 92 10/03/16 09:05 20 103/74 92 10/03/16 09:00 103 25 103/74 96 Intake and Output 10/03/16 10/04/16 10/04/16 23:59 07:59 15:59 Intake Total 240 / 240 0 / 0 Output Total 0 / 0 Balance 240 / 240 0 / 0 Intake: Oral 240 / 240 0 / 0 Output: Urine 0 / 0 Other: Meal Dinner Percent of Meal Consumed 100% Stool Size Moderate Stool Consistency soft formed Stool Color Brown # Bowel Movements 1 Weight 134.1 kg Blood Glucose* 204 193 Patient Weight 10/04/16 23:59 Weight 134.1 kg - General Appearance General appearance: Present: well-developed, well-nourished, appears started age , obese EENT: Present: mucous membranes moist Neck: Present: no JVD Respiratory: Present: clear Cardiology: Present: edema, irregular rhythm Additional Comments: mild pitting Gastrointestinal: Present: normoactive bowel sounds, no tenderness Integumentary: Present: warm and dry Neurologic: Present: alert and oriented x3 Psychiatric: Present: mood/affect appropriate, cooperative - Lab 10/04/16 04:18 10/04/16 04:18 Most recent lab results ABG pH 7.25 pH Units (7.32-7.45) L 10/02/16 04:55 ABG pCO2 60 mmHg (35-45) H 10/02/16 04:55 ABG pO2 78 mmHg (85-104) L 10/02/16 04:55 ABG HCO3 26.3 mEQ/L (21-27) 10/02/16 04:55 ABG O2 Saturation 93 % (95-98) L 10/02/16 04:55 Calcium 7.5 mg/dL (8.6-10.8) L 10/04/16 04:18 Phosphorus 6.2 mg/dL (2.3-4.7) H 10/04/16 04:18 Magnesium 2.1 mg/dL (1.6-2.6) 10/04/16 04:18 Consult Discharge Plan - Plan Referrals: NO,PCP [Non-Partnered Physician] -
[2016-10-04] MEDS: Insulin LISPRO 300 UNITS/3 ML VIAL SQ SCH ×2 (08:30→12:45)
[2016-10-04] MEDS: cephALEXin 500 MG CAPSULE PO SCH (08:33)
[2016-10-04] MEDS: *HR* Amiodarone 200 MG TABLET PO SCH (08:34)
[2016-10-04] MEDS: Pregabalin 50 MG CAPSULE PO SCH (08:34)
[2016-10-04] MEDS: Ammonium Lactate 30 APPL/225 GM BOTTLE TP SCH (08:37)
[2016-10-04] MEDS: Calcium Acetate 667 MG CAPSULE PO SCH ×2 (08:37→12:45)
[2016-10-04] MEDS ORDERED: Pantoprazole 40 MG VIAL IVP SCH (09:00)
[2016-10-04] MEDS ORDERED: Nicotine 21 MG PATCH.TD24 TD SCH (09:00)
[2016-10-04] MEDS ORDERED: Renal Vitamin 1 MG CAPSULE PO SCH (09:00)
--- NOTE | 2016-10-04 11:26 | Discharge Summary ---
Date of Encounter: 10/04/16 Time of Encounter: 11:24 - Discharge Diagnosis (1) Acute metabolic encephalopathy Priority: Primary Status: Acute (2) Acute and chronic respiratory failure with hypercapnia Priority: Secondary Status: Acute (3) Atrial fibrillation Priority: Secondary Status: Acute Qualifiers: Atrial fibrillation type: paroxysmal Qualified Code(s): I48.0 - Paroxysmal atrial fibrillation (4) Cellulitis of abdominal wall Priority: Secondary Status: Acute (5) Diabetes mellitus type 2, uncontrolled, with complications Priority: Secondary Status: Chronic Qualifiers: Diabetes mellitus manager intermediate insulin use: with manager intermediate use Qualified Code( s): E11.8 - Type 2 diabetes mellitus with unspecified complications; E11.65 - Type 2 diabetes mellitus with hyperglycemia; Z79.4 - intermediate (current) use of insulin (6) End stage renal disease Priority: Secondary Status: Chronic (7) Hypotension Priority: Secondary Status: Acute Qualifiers: Hypotension type: unspecified hypotension type Qualified Code(s): I95.9 - Hypotension, unspecified (8) Severe sleep apnea Priority: Secondary Status: Acute (9) Systolic heart failure, chronic Priority: Secondary Status: Acute - Discharge Medications Prescriptions: Pregabalin [Lyrica] 50 mg PO BID #14 capsule Tramadol HCl [Ultram] 50 mg PO BID PRN #14 tab PRN Reason: Moderate Pain Home Medications: Insulin Glargine,Hum.rec.anlog [Lantus Solostar] 30 unit SQ BID #0 01/07/15 [ History] [place] Oil/Gilbert-3 Fatty Acids [Fish Oil 500 mg Softgel] 1 cap PO DAILY #0 [History] Rosuvastatin [Crestor] 20 mg PO DAILY tablet 01/08/15 [Rx] Carvedilol [Coreg] 50 mg PO BIDWM 01/24/16 [History] Duloxetine HCl [Cymbalta] 60 mg PO DAILY 01/24/16 [History] Lidocaine/Prilocaine CREAM [Emla] 1 appl TP AD PRN 01/24/16 [History] Pantoprazole Sodium [Protonix] 40 mg PO DAILY 01/24/16 [History] Renal Vitamin [Renal Caps Softgel] 1 mg PO DAILY 01/24/16 [History] Ammonium Lactate 1 appl TP BID 09/02/16 [History] Cinacalcet HCl [Sensipar] 60 mg PO DAILY 09/02/16 [History] hydrALAZINE [HydrALAZINE] 25 mg PO BID 09/02/16 [History] Amiodarone [Cordarone] 200 mg PO BID tablet 09/19/16 [Rx] Calcium Acetate [Phos-LO] 1,334 mg PO TIDWM capsule 09/19/16 [Rx] Docusate [Colace] 100 mg PO BID PRN #0 capsule 09/19/16 [Rx] Ipratropium Neb [Atrovent Neb] 0.5 mg IH TIDR inhsol 09/19/16 [Rx] Levalbuterol Neb [Xopenex Neb] 0.63 mg IH TIDR vial.neb 09/19/16 [Rx] Nicotine Patch [Nicoderm] 21 mg TD DAILY patch.td24 09/19/16 [Rx] Tetrahydrozoline [Visine] 1 drop BOTH EYES QID PRN 09/29/16 [History] Warfarin [Coumadin] 5 mg PO Q48H 09/29/16 [History] Warfarin [Coumadin] 7.5 mg PO Q48H 09/29/16 [History] Pregabalin [Lyrica] 50 mg PO BID #14 capsule 10/04/16 [Rx] Tramadol HCl [Ultram] 50 mg PO BID PRN #14 tab 10/04/16 [Rx] cephALEXin [Cephalexin] 500 mg PO BID 4 Days 10/04/16 [Rx] Allergies/Adverse Reactions: Allergies hydrocodone [From [place]] Allergy (Intermediate, Verified 09/29/16 16:59) Hives Date of admission: 10/02/16 12:58 Primary care physician: Arthur Pozo MD Consults: 10/01/16 17:35 Consult to Nephrology [CONS] Routine [facility]ing [facility] Reason for Consult: ESRD/ Dialysis Management Call Completed: No 10/02/16 10:30 Consult to Dialysis [CONS] ONCE Discharging clinician: Latrice Friend Anticipated date of discharge: 10/04/16 - Patient Status Disposition: Transfer SNF Condition: Fair Functional capacity at discharge: uses cane/walker Overall status at discharge: patient is progressing back to baseline - Discharge Instructions Instructions: Diabetes Mellitus Type 2 in Adults (DC) Follow Up With: NO,PCP [Non-Partnered Physician] - Additional Instructions: Follow-up with provider in the residential for further management of chronic medical conditions. Follow-up with nephrology for end-stage renal disease - Diet and Activity Activity: as per physical therapy Diet: diabetic diet, low fat, low cholesterol, low salt diet, other (renal) Hospital course: Mr. Hatch is a 45 year old male patient who has history of end-stage renal disease on hemodialysis and resides at residential was brought into the ER with complaints of hypotension and altered mental status. On initial evaluation , he was found to be in acute hypercapnic respiratory failure and was admitted to ICU and monitored. The patient's mental status continued to decline and so he was intubated and mechanically ventilated. Afterwards, he underwent hemodialysis and was then able to be extubated without any issues. Since then, he has been on the floor and doing well overall. He denies any complaints at this time besides neuropathy pain in his lower extremities. He says that he was given his medications at once after he came back from dialysis and this probably caused his symptoms. His blood pressure has been stable here on his usual dose of carvedilol. He will be discharged back to the residential at this time for continued rehabilitation. If he develops any further episodes of hypotension, his carvedilol dosage may be decreased. He can follow up with his an/syq 13 nav/c2 operator and primary care provider for further management of his chronic medical problems. - Time Spent with Patient Total time spent providing and/or coordinating discharge services: Greater than 30 minutes (35 min) - Constitutional Vitals: Temp Pulse Resp BP Pulse Ox 98.4 F 117 18 103/68 93 10/04/16 07:09 10/04/16 07:09 10/04/16 09:58 10/04/16 09:58 10/04/16 09:58 General appearance: Present: cooperative, A&O X 3, no acute distress, answers questions appropriately - Respiratory Respiratory exam: Present: CTAB. Absent: accessory muscle use, rales, rhonchi, wheezes - Cardiovascular Cardiovascular exam: Present: RRR, +S1, +S2. Absent: diastolic murmur, gallop, rubs, systolic murmur - GI/Abdominal GI/Abdominal exam: Present: normal bowel sounds, soft, no peritoneal signs. Absent: distended, tenderness - Extremities Exam Extremities exam: Present: pedal edema, warm, radial pulses palpable and symetrical. Absent: calf tenderness, cyanotic - Neurological Exam Neurological exam: Present: alert, oriented X3, no focal deficits. Absent: facial droop, speech deficit - Skin Skin exam: Present: dry, intact - Attending Attestation This document has been at least partially created by [employer] recognition technology by Dr. Friend. Errors in grammar, wording or other phrases may exist. If errors are found after the documentation is signed, they will be addressed individually in the addendum section of this document when appropriate.
--- NOTE | 2016-10-04 11:36 | Physician Discharge Referral ---
ExtendedCare Referral Info Institutional Level of Care: Skilled - Diagnosis (1) Acute metabolic encephalopathy Priority: Primary Status: Acute (2) Acute and chronic respiratory failure with hypercapnia Priority: Secondary Status: Acute (3) Atrial fibrillation Priority: Secondary Status: Acute (4) Cellulitis of abdominal wall Priority: Secondary Status: Acute (5) Diabetes mellitus type 2, uncontrolled, with complications Priority: Secondary Status: Chronic (6) End stage renal disease Priority: Secondary Status: Chronic (7) Hypotension Priority: Secondary Status: Acute (8) Severe sleep apnea Priority: Secondary Status: Acute (9) Systolic heart failure, chronic Priority: Secondary Status: Acute Prognosis: Fair Aware of Diagnosis: Patient Aware of Prognosis: Patient - Transfer Medications Prescriptions: Pregabalin [Lyrica] 50 mg PO BID #14 capsule Tramadol HCl [Ultram] 50 mg PO BID PRN #14 tab PRN Reason: Moderate Pain Home Medications: Insulin Glargine,Hum.rec.anlog [Lantus Solostar] 30 unit SQ BID #0 01/07/15 [ History] [place] Oil/[place]-3 Fatty Acids [Fish Oil 500 mg Softgel] 1 cap PO DAILY #0 [History] Rosuvastatin [Crestor] 20 mg PO DAILY tablet 01/08/15 [Rx] Carvedilol [Coreg] 50 mg PO BIDWM 01/24/16 [History] Duloxetine HCl [Cymbalta] 60 mg PO DAILY 01/24/16 [History] Lidocaine/Prilocaine CREAM [Emla] 1 appl TP AD PRN 01/24/16 [History] Pantoprazole Sodium [Protonix] 40 mg PO DAILY 01/24/16 [History] Renal Vitamin [Renal Caps Softgel] 1 mg PO DAILY 01/24/16 [History] Ammonium Lactate 1 appl TP BID 09/02/16 [History] Cinacalcet HCl [Sensipar] 60 mg PO DAILY 09/02/16 [History] hydrALAZINE [HydrALAZINE] 25 mg PO BID 09/02/16 [History] Amiodarone [Cordarone] 200 mg PO BID tablet 09/19/16 [Rx] Calcium Acetate [Phos-LO] 1,334 mg PO TIDWM capsule 09/19/16 [Rx] Docusate [Colace] 100 mg PO BID PRN #0 capsule 09/19/16 [Rx] Ipratropium Neb [Atrovent Neb] 0.5 mg IH TIDR inhsol 09/19/16 [Rx] Levalbuterol Neb [Xopenex Neb] 0.63 mg IH TIDR vial.neb 09/19/16 [Rx] Nicotine Patch [Nicoderm] 21 mg TD DAILY patch.td24 09/19/16 [Rx] Tetrahydrozoline [Visine] 1 drop BOTH EYES QID PRN 09/29/16 [History] Warfarin [Coumadin] 5 mg PO Q48H 09/29/16 [History] Warfarin [Coumadin] 7.5 mg PO Q48H 09/29/16 [History] Pregabalin [Lyrica] 50 mg PO BID #14 capsule 10/04/16 [Rx] Tramadol HCl [Ultram] 50 mg PO BID PRN #14 tab 10/04/16 [Rx] cephALEXin [Cephalexin] 500 mg PO BID 4 Days 10/04/16 [Rx] Allergies/Adverse Reactions: Allergies hydrocodone [From [place]] Allergy (Intermediate, Verified 09/29/16 16:59) Hives - Respiratory Orders Smoking Cessation: Smoking cessation has been advised. For more information, call the [place] Tobacco Quit Line at 6-372-EVEB-NOW. - Ancillary Orders May consult with Dentist, Welfare Eligibility Worker, Community Recreation Programmer PRN - Advance Directives Code Status: Full Code - Mobility Orders Ambulate (per PT) - Rehabiliation Orders Rehab Potential: Fair Rehab Orders: Evaluation for Physical Therapy, Evaluation for Occupational Therapy - Diet Orders No Concentrated Sweets (diabetic), Renal, Cardiac CERTIFICATION: I certify that the transfer of the above named patient to an Extended Care Facility is necessary for the continuing treatment of the diagnosis listed. The above information is true and accurate reflection of patient's current condition. Confidential - Redisclosure prohibited without a patient's written consent.
[2016-10-04 11:42] VITALS: BP 122/81
[2016-10-04] MEDS ORDERED: Aminoglycoside Consult 1 EACH MC ONE (14:48)
[2016-10-04] MEDS ORDERED: *HR* Warfarin 7.5 MG TABLET PO SCH (18:00)
== END 2016-10-04 14:49 | DRG 208 ==
LOC: ICNU 12:34 → EMEROO 12:34 → ICNU 18:52 → SUATTDRO 10-02 12:58 → 2ANU 10-03 14:53
PROVIDERS: ADMIT Internal Medicine; ATTEND Internal Medicine

== ENCOUNTER 2016-11-16 16:16 | Inpatient (IN) ==
[2016-11-16] MEDS ORDERED: 0.9 % Sodium Chloride 1,000 ML ONE (16:26)
--- NOTE | 2016-11-16 16:56 | Emergency Department Note ---
Disposition Clinical Impression: Acute and chronic respiratory failure, Medical non-compliance, Altered mental status Disposition: Admitted As Inpatient Condition: Serious Referrals: NO,PCP [Primary Care Provider] - Forms: ED Satisfaction Letter General Adult HPI - General Chief complaint: ED Altered Mental Status Stated complaint: unresponsive Time Seen by Provider: 11/16/16 16:26 Nursing Notes Reviewed: Yes Vital Signs Reviewed: Yes - History of Present Illness Pain Scale: 0 - Related Data Home Medications Medication Instructions Recorded Confirmed Insulin Glargine,Hum.rec.anlog 30 unit SQ BID #0 01/07/15 10/01/16 [Lantus Solostar] [place] Oil/[place]-3 Fatty Acids 1 cap PO DAILY #0 01/07/15 10/01/16 [Fish Oil 500 mg Softgel] Carvedilol [Coreg] 50 mg PO BIDWM 01/24/16 10/01/16 Duloxetine HCl [Cymbalta] 60 mg PO DAILY 01/24/16 10/01/16 Lidocaine/Prilocaine CREAM [Emla] 1 appl TP AD PRN 01/24/16 10/01/16 Pantoprazole Sodium [Protonix] 40 mg PO DAILY 01/24/16 10/01/16 Renal Vitamin [Renal Caps Softgel] 1 mg PO DAILY 01/24/16 10/01/16 Ammonium Lactate 1 appl TP BID 09/02/16 10/01/16 Cinacalcet HCl [Sensipar] 60 mg PO DAILY 09/02/16 10/01/16 hydrALAZINE [HydrALAZINE] 25 mg PO BID 09/02/16 10/01/16 Tetrahydrozoline [Visine] 1 drop BOTH EYES QID PRN 09/29/16 10/01/16 Warfarin [Coumadin] 5 mg PO Q48H 09/29/16 10/01/16 Warfarin [Coumadin] 7.5 mg PO Q48H 09/29/16 10/01/16 Previous Rx's Medication Instructions Recorded Rosuvastatin [Crestor] 20 mg PO DAILY tablet 01/08/15 Amiodarone [Cordarone] 200 mg PO BID tablet 09/19/16 Calcium Acetate [Phos-LO] 1,334 mg PO TIDWM capsule 09/19/16 Docusate [Colace] 100 mg PO BID PRN #0 capsule 09/19/16 Ipratropium Neb [Atrovent Neb] 0.5 mg IH TIDR inhsol 09/19/16 Levalbuterol Neb [Xopenex Neb] 0.63 mg IH TIDR vial.neb 09/19/16 Nicotine Patch [Nicoderm] 21 mg TD DAILY patch.td24 09/19/16 Pregabalin [Lyrica] 50 mg PO BID #14 capsule 10/04/16 Tramadol HCl [Ultram] 50 mg PO BID PRN #14 tab 10/04/16 cephALEXin [Cephalexin] 500 mg PO BID 4 Days 10/04/16 Allergies Allergy/AdvReac Type Severity Reaction Status Date / Time hydrocodone [From [place]] Allergy Intermediate Hives Verified 09/29/16 16:59 Past Medical History - Past Medical History Medical history: Reports: arthritis, cardiomyopathy, CHF, COPD, diabetes, dialysis, GERD, hyperlipidemia, hypertension, osteoporosis, renal disease, other Surgical history: Reports: herniorrhaphy, vascular surgery, other Psychiatric history: Reports: anxiety, depression, other - Social History Smoking Status: Current every day smoker Smokeless Tobacco Status: No Alcohol use: Reports: none, unknown Drug use: Reports: marijuana, other Physical Exam - General General appearance: lethargic Course Vital Signs Temperature 96.4 F L 11/16/16 16:18 Pulse Rate 135 11/16/16 16:18 Respiratory Rate 10 11/16/16 16:18 Blood Pressure 82/66 11/16/16 16:18 O2 Sat by Pulse Oximetry 91 11/16/16 16:18 Temperature 96.4 F L 11/16/16 16:18 Pulse Rate 135 11/16/16 18:00 Respiratory Rate 12 11/16/16 18:00 Blood Pressure 130/103 11/16/16 18:00 O2 Sat by Pulse Oximetry 100 11/16/16 18:00 Oxygen Delivery Oxygen Delivery Ventilator Medical Decision Making - MDM Narrative Medical decision making narrative: I examined this patient and my medical decision-making was reviewed with the PERL PROGRAMMER/PA/Advanced Practice Nurse/Resident Physician. I agree with the documented findings, disposition and treatment plan as described except to the extent set forth below. The patient from dialysis center. No one are called to give us any report. Fairly went to dialysis, and then had altered mental status at the end of dialysis., Sees Dr. Kuo for nephrology. No other history from medics. He did receive full dialysis according to have no other complaints. On arrival here he did get Narcan but did not wake up. He would raise his head and look about for a few seconds but nothing that was purposeful. He seems to have right-sided neglect. Went ahead and intubated him for airway protection this was done by Richar More under my supervision. Confirmed with end-tidal CO2 chest x-ray. An auscultation of the lungs. He is going on for head CT labs and further workup. He did need an IO in his right tibia for vascular access. He will need ICU admission. Chest X-Ray 11/16/16 16:26 IMPRESSION: No acute process. Stable cardiomegaly D/ / Hiram Davila MD / Hiram Davila MD Interpreting Provider: Hiram Davila MD Head CT 11/16/16 16:26 IMPRESSION: No acute intracranial abnormality. D/ / Rudolph Thakkar MD / Rudolph Thakkar MD Interpreting Provider: Rudolph Thakkar MD 1830 hrs.: 1 admit patient to the ICU. Nothing really on his workup. Spoke with his educational therapy teacher. Also in the nurse's that takes care of him on the floor and said frequently he has other drugs involved other than opiates. Bring him into the hospital let him wake up on his own. He is going to the ICU for admission. Impression is acute mental status change with encephalopathy. End- stage renal disease status post dialysis. Critical care time here exclusively separately billable procedures is 1 hour. - Lab Data Result diagrams: 11/16/16 16:49 11/16/16 16:49 Lab Results 11/16/16 11/16/16 11/16/16 Range/Units 16:24 16:49 16:49 WBC 6.3 (4.3-11.1) K/mcL RBC 4.03 L (4.19-5.50) M/mcL Hgb 11.4 L (12.9-16.9) g/dL Hct 39.4 (37.5-50.1) % MCV 97.8 (83.0-100.0) fL MCH 28.3 (28.0-33.3) pg MCHC 28.9 L (31.6-35.5) g/dL RDW 24.1 H (11.5-14.5) % Plt Count 83 L (140-400) K/mcL MPV 11.5 (9.4-12.4) fL Immature Gran % 1.4 (0-4) % Seg Neutrophils % 71.3 % Lymphocytes % 14.8 % Monocytes % 10.7 % Eosinophils % 1.3 % Basophils % 0.5 % Neutrophils # 4.5 (1.6-8.9) K/mcL Lymphocytes # 0.9 (0.6-4.6) K/mcL Monocytes # 0.7 (0.0-1.3) K/mcL Eosinophils # 0.1 (0.0-0.6) K/mcL Basophils # 0.0 (0.0-0.2) K/mcL Nucleated RBCs/100 WBC 1.6 H (0) /100 WBC Platelet Estimate Slight Decrease L (Normal) Immature Plt Fraction 12.4 H (1.1-6.1) % Polychromasia 2+ A (Not Present) Basophilic Stippling 1+ A (Not Present) Anisocytosis 3+ A (Not Present) Microcytosis Present A (Not Present) Macrocytosis Present A (Not Present) APTT 38.4 H (26.0-36.0) Seconds Sodium (136-145) mEq/L Potassium (3.5-4.5) mEq/L Chloride (98-109) mEq/L Carbon Dioxide (19-29) mEq/L BUN (8-26) mg/dL Creatinine (0.72-1.25) mg/dL Est GFR ( Amer) (> 60) Est GFR (Non-Af Amer) (> 60) BUN/Creatinine Ratio (6-26) Glucose (70-99) mg/dL POC Glucose 95 H (58-89) Calculated Osmolality (280-300) Lactic Acid (0.5-2.2) mmol/L Calcium (8.6-10.8) mg/dL Phosphorus (2.3-4.7) mg/dL Magnesium (1.6-2.6) mg/dL Total Bilirubin (0.2-1.2) mg/dL AST (5-34) Units/L ALT (0-55) Units/L Alkaline Phosphatase (38-126) Units/L Ammonia (18-72) mcmol/L Troponin I (0-0.03) ng/mL B-Natriuretic Peptide (0-100) pg/mL Serum Total Protein (6.0-8.3) g/dL Albumin (3.5-5.0) g/dL Globulin (2.4-3.5) g/dL Albumin/Globulin Ratio (1.1-2.2) 11/16/16 11/16/16 11/16/16 Range/Units 16:49 16:49 16:49 WBC (4.3-11.1) K/mcL RBC (4.19-5.50) M/mcL Hgb (12.9-16.9) g/dL Hct (37.5-50.1) % MCV (83.0-100.0) fL MCH (28.0-33.3) pg MCHC (31.6-35.5) g/dL RDW (11.5-14.5) % Plt Count (140-400) K/mcL MPV (9.4-12.4) fL Immature Gran % (0-4) % Seg Neutrophils % % Lymphocytes % % Monocytes % % Eosinophils % % Basophils % % Neutrophils # (1.6-8.9) K/mcL Lymphocytes # (0.6-4.6) K/mcL Monocytes # (0.0-1.3) K/mcL Eosinophils # (0.0-0.6) K/mcL Basophils # (0.0-0.2) K/mcL Nucleated RBCs/100 WBC (0) /100 WBC Platelet Estimate (Normal) Immature Plt Fraction (1.1-6.1) % Polychromasia (Not Present) Basophilic Stippling (Not Present) Anisocytosis (Not Present) Microcytosis (Not Present) Macrocytosis (Not Present) APTT (26.0-36.0) Seconds Sodium 138 (136-145) mEq/L Potassium 3.8 (3.5-4.5) mEq/L Chloride 99 (98-109) mEq/L Carbon Dioxide 29 (19-29) mEq/L BUN 23 (8-26) mg/dL Creatinine 6.29 H (0.72-1.25) mg/dL Est GFR ( Amer) 12 L (> 60) Est GFR (Non-Af Amer) 10 L (> 60) BUN/Creatinine Ratio 4 L (6-26) Glucose 97 (70-99) mg/dL POC Glucose (58-89) Calculated Osmolality 290 (280-300) Lactic Acid 0.9 (0.5-2.2) mmol/L Calcium 8.4 L (8.6-10.8) mg/dL Phosphorus (2.3-4.7) mg/dL Magnesium (1.6-2.6) mg/dL Total Bilirubin 1.1 (0.2-1.2) mg/dL AST 20 (5-34) Units/L ALT 14 (0-55) Units/L Alkaline Phosphatase 521 H (38-126) Units/L Ammonia (18-72) mcmol/L Troponin I (0-0.03) ng/mL B-Natriuretic Peptide 553 H (0-100) pg/mL Serum Total Protein 6.9 (6.0-8.3) g/dL Albumin 3.1 L (3.5-5.0) g/dL Globulin 3.8 H (2.4-3.5) g/dL Albumin/Globulin Ratio 0.8 L (1.1-2.2) 11/16/16 11/16/16 11/16/16 Range/Units 16:49 16:49 16:49 WBC (4.3-11.1) K/mcL RBC (4.19-5.50) M/mcL Hgb (12.9-16.9) g/dL Hct (37.5-50.1) % MCV (83.0-100.0) fL MCH (28.0-33.3) pg MCHC (31.6-35.5) g/dL RDW (11.5-14.5) % Plt Count (140-400) K/mcL MPV (9.4-12.4) fL Immature Gran % (0-4) % Seg Neutrophils % % Lymphocytes % % Monocytes % % Eosinophils % % Basophils % % Neutrophils # (1.6-8.9) K/mcL Lymphocytes # (0.6-4.6) K/mcL Monocytes # (0.0-1.3) K/mcL Eosinophils # (0.0-0.6) K/mcL Basophils # (0.0-0.2) K/mcL Nucleated RBCs/100 WBC (0) /100 WBC Platelet Estimate (Normal) Immature Plt Fraction (1.1-6.1) % Polychromasia (Not Present) Basophilic Stippling (Not Present) Anisocytosis (Not Present) Microcytosis (Not Present) Macrocytosis (Not Present) APTT (26.0-36.0) Seconds Sodium (136-145) mEq/L Potassium (3.5-4.5) mEq/L Chloride (98-109) mEq/L Carbon Dioxide (19-29) mEq/L BUN (8-26) mg/dL Creatinine (0.72-1.25) mg/dL Est GFR ( Amer) (> 60) Est GFR (Non-Af Amer) (> 60) BUN/Creatinine Ratio (6-26) Glucose (70-99) mg/dL POC Glucose (58-89) Calculated Osmolality (280-300) Lactic Acid (0.5-2.2) mmol/L Calcium (8.6-10.8) mg/dL Phosphorus 4.9 H (2.3-4.7) mg/dL Magnesium 1.9 (1.6-2.6) mg/dL Total Bilirubin (0.2-1.2) mg/dL AST (5-34) Units/L ALT (0-55) Units/L Alkaline Phosphatase (38-126) Units/L Ammonia 60 (18-72) mcmol/L Troponin I 0.05 H* (0-0.03) ng/mL B-Natriuretic Peptide (0-100) pg/mL Serum Total Protein (6.0-8.3) g/dL Albumin (3.5-5.0) g/dL Globulin (2.4-3.5) g/dL Albumin/Globulin Ratio (1.1-2.2)
[2016-11-16] MEDS ORDERED: Dexmedetomidine HCl 400 MCG/100 ML MLS IVC SCH (17:00)
--- NOTE | 2016-11-16 17:04 | Emergency Department Note ---
Disposition Clinical Impression: Acute and chronic respiratory failure, Medical non-compliance, Altered mental status, Encephalopathy acute Disposition: Admitted As Inpatient Condition: Serious Referrals: NO,PCP [Primary Care Provider] - Forms: ED Satisfaction Letter Time of Disposition: 18:31 Altered Mental Status HPI - General Chief Complaint: ED Altered Mental Status Stated Complaint: unresponsive Time Seen by Provider: 11/16/16 16:26 Source: EMS Mode of arrival: EMS Limitations: altered mental status Nursing Notes Reviewed: Yes Vital Signs Reviewed: Yes - History of Present Illness HPI Narrative: Patient presents to the ED from dialysis with altered mental status. Unclear with the surrounding circumstances. The patient did finish dialysis and then became altered. Was sent with her recent medical history and does have a history of A. fib and is potentially anticoagulated. Upon arrival, patient is unresponsive, but is breathing spontaneously - Related Data Home Medications Medication Instructions Recorded Confirmed Insulin Glargine,Hum.rec.anlog 30 unit SQ BID #0 01/07/15 10/01/16 [Lantus Solostar] [place] Oil/[place]-3 Fatty Acids 1 cap PO DAILY #0 01/07/15 10/01/16 [Fish Oil 500 mg Softgel] Carvedilol [Coreg] 50 mg PO BIDWM 01/24/16 10/01/16 Duloxetine HCl [Cymbalta] 60 mg PO DAILY 01/24/16 10/01/16 Lidocaine/Prilocaine CREAM [Emla] 1 appl TP AD PRN 01/24/16 10/01/16 Pantoprazole Sodium [Protonix] 40 mg PO DAILY 01/24/16 10/01/16 Renal Vitamin [Renal Caps Softgel] 1 mg PO DAILY 01/24/16 10/01/16 Ammonium Lactate 1 appl TP BID 09/02/16 10/01/16 Cinacalcet HCl [Sensipar] 60 mg PO DAILY 09/02/16 10/01/16 hydrALAZINE [HydrALAZINE] 25 mg PO BID 09/02/16 10/01/16 Tetrahydrozoline [Visine] 1 drop BOTH EYES QID PRN 09/29/16 10/01/16 Warfarin [Coumadin] 5 mg PO Q48H 09/29/16 10/01/16 Warfarin [Coumadin] 7.5 mg PO Q48H 09/29/16 10/01/16 Previous Rx's Medication Instructions Recorded Rosuvastatin [Crestor] 20 mg PO DAILY tablet 01/08/15 Amiodarone [Cordarone] 200 mg PO BID tablet 09/19/16 Calcium Acetate [Phos-LO] 1,334 mg PO TIDWM capsule 09/19/16 Docusate [Colace] 100 mg PO BID PRN #0 capsule 09/19/16 Ipratropium Neb [Atrovent Neb] 0.5 mg IH TIDR inhsol 09/19/16 Levalbuterol Neb [Xopenex Neb] 0.63 mg IH TIDR vial.neb 09/19/16 Nicotine Patch [Nicoderm] 21 mg TD DAILY patch.td24 09/19/16 Pregabalin [Lyrica] 50 mg PO BID #14 capsule 10/04/16 Tramadol HCl [Ultram] 50 mg PO BID PRN #14 tab 10/04/16 cephALEXin [Cephalexin] 500 mg PO BID 4 Days 10/04/16 Allergies Allergy/AdvReac Type Severity Reaction Status Date / Time hydrocodone [From [place]] Allergy Intermediate Hives Verified 09/29/16 16:59 Limitations: ROS unobtainable due to patients medical condition Past Medical History - Past Medical History Source: old records reviewed Medical history: Reports: arthritis, cardiomyopathy, CHF, COPD, diabetes, dialysis, GERD, hyperlipidemia, hypertension, osteoporosis, renal disease, other Surgical history: Reports: herniorrhaphy, vascular surgery, other Psychiatric history: Reports: anxiety, depression, other - Social History Smoking Status: Current every day smoker Smokeless Tobacco Status: No Alcohol use: Reports: none, unknown Drug use: Reports: marijuana, other Physical Exam - General Limitations: altered mental status General appearance: lethargic, obtunded (Patient is completely obtunded, breathing spontaneously and will lift his head up to deep painful stimuli) - Head Head exam: atraumatic - Eye Eye exam: Present: PERRL - ENT ENT exam: mucous membranes moist - Respiratory Respiratory exam: Present: normal lung sounds bilaterally. Absent: respiratory distress - Cardiovascular Cardiovascular exam: Present: tachycardia - Abdominal Exam Abdominal exam: Present: soft, distention (Unclear patient's baseline), ascites (Possible) - Extremities Exam Extremities exam: Present: pedal edema (1+ pitting bilaterally) - Neurological Exam Neurological exam: Present: CN II-XII intact (Appears grossly intact, may have a slight left-sided facial droop). Absent: alert, oriented X3 - Skin Skin exam: Present: warm, dry, intact, other (Patient does have a chronic- appearing bilateral cellulitis to the lower extremities) Course Course Narrative: 45 -year-old male presenting to the ED altered. Original GCS was E2, V1, M5. Was given Narcan with no effect. He was intubated for airway protection. A right tibial IO was placed due to no vascular access. Patient was bolused fluids due to beverly-intubation hypotension. He tolerated the procedure well. Brief episode of hypoxia but was easily bagged. Concern over intracranial pathology and will be sent to CT as well as potential sepsis labs have been ordered. The patient will need ICU level care. - Consultations Consultation #1: Spoke with the patient's applications engineer, Dr. Vivar. He states that the patient is frequently very altered at dialysis and is known to take many types of drugs. This could have been related to a benzodiazepine overdose or some other medication. Patient was intubated and Dr. Vivar is aware. He will be admitted to the ICU. Time: 18:29 Vital Signs Temperature 96.4 F L 11/16/16 16:18 Pulse Rate 135 11/16/16 16:18 Respiratory Rate 10 11/16/16 16:18 Blood Pressure 82/66 11/16/16 16:18 O2 Sat by Pulse Oximetry 91 11/16/16 16:18 Temperature 96.4 F L 11/16/16 16:18 Pulse Rate 134 11/16/16 18:30 Respiratory Rate 14 11/16/16 18:30 Blood Pressure 99/64 11/16/16 18:30 O2 Sat by Pulse Oximetry 97 11/16/16 18:30 Oxygen Delivery Oxygen Delivery Ventilator Altered Mental Status - Medical Records Medical records reviewed: Yes I reviewed the patient's medical records. - Lab Data Lab results reviewed: Yes I reviewed the patient's lab results. Result diagrams: 11/16/16 16:49 11/16/16 16:49 Lab Results 11/16/16 11/16/16 11/16/16 Range/Units 16:24 16:49 16:49 WBC 6.3 (4.3-11.1) K/mcL RBC 4.03 L (4.19-5.50) M/mcL Hgb 11.4 L (12.9-16.9) g/dL Hct 39.4 (37.5-50.1) % MCV 97.8 (83.0-100.0) fL MCH 28.3 (28.0-33.3) pg MCHC 28.9 L (31.6-35.5) g/dL RDW 24.1 H (11.5-14.5) % Plt Count 83 L (140-400) K/mcL MPV 11.5 (9.4-12.4) fL Immature Gran % 1.4 (0-4) % Seg Neutrophils % 71.3 % Lymphocytes % 14.8 % Monocytes % 10.7 % Eosinophils % 1.3 % Basophils % 0.5 % Neutrophils # 4.5 (1.6-8.9) K/mcL Lymphocytes # 0.9 (0.6-4.6) K/mcL Monocytes # 0.7 (0.0-1.3) K/mcL Eosinophils # 0.1 (0.0-0.6) K/mcL Basophils # 0.0 (0.0-0.2) K/mcL Nucleated RBCs/100 WBC 1.6 H (0) /100 WBC Platelet Estimate Slight Decrease L (Normal) Immature Plt Fraction 12.4 H (1.1-6.1) % Polychromasia 2+ A (Not Present) Basophilic Stippling 1+ A (Not Present) Anisocytosis 3+ A (Not Present) Microcytosis Present A (Not Present) Macrocytosis Present A (Not Present) APTT 38.4 H (26.0-36.0) Seconds Sodium (136-145) mEq/L Potassium (3.5-4.5) mEq/L Chloride (98-109) mEq/L Carbon Dioxide (19-29) mEq/L BUN (8-26) mg/dL Creatinine (0.72-1.25) mg/dL Est GFR ( Amer) (> 60) Est GFR (Non-Af Amer) (> 60) BUN/Creatinine Ratio (6-26) Glucose (70-99) mg/dL POC Glucose 95 H (58-89) Calculated Osmolality (280-300) Lactic Acid (0.5-2.2) mmol/L Calcium (8.6-10.8) mg/dL Phosphorus (2.3-4.7) mg/dL Magnesium (1.6-2.6) mg/dL Total Bilirubin (0.2-1.2) mg/dL AST (5-34) Units/L ALT (0-55) Units/L Alkaline Phosphatase (38-126) Units/L Ammonia (18-72) mcmol/L Troponin I (0-0.03) ng/mL B-Natriuretic Peptide (0-100) pg/mL Serum Total Protein (6.0-8.3) g/dL Albumin (3.5-5.0) g/dL Globulin (2.4-3.5) g/dL Albumin/Globulin Ratio (1.1-2.2) 11/16/16 11/16/16 11/16/16 Range/Units 16:49 16:49 16:49 WBC (4.3-11.1) K/mcL RBC (4.19-5.50) M/mcL Hgb (12.9-16.9) g/dL Hct (37.5-50.1) % MCV (83.0-100.0) fL MCH (28.0-33.3) pg MCHC (31.6-35.5) g/dL RDW (11.5-14.5) % Plt Count (140-400) K/mcL MPV (9.4-12.4) fL Immature Gran % (0-4) % Seg Neutrophils % % Lymphocytes % % Monocytes % % Eosinophils % % Basophils % % Neutrophils # (1.6-8.9) K/mcL Lymphocytes # (0.6-4.6) K/mcL Monocytes # (0.0-1.3) K/mcL Eosinophils # (0.0-0.6) K/mcL Basophils # (0.0-0.2) K/mcL Nucleated RBCs/100 WBC (0) /100 WBC Platelet Estimate (Normal) Immature Plt Fraction (1.1-6.1) % Polychromasia (Not Present) Basophilic Stippling (Not Present) Anisocytosis (Not Present) Microcytosis (Not Present) Macrocytosis (Not Present) APTT (26.0-36.0) Seconds Sodium 138 (136-145) mEq/L Potassium 3.8 (3.5-4.5) mEq/L Chloride 99 (98-109) mEq/L Carbon Dioxide 29 (19-29) mEq/L BUN 23 (8-26) mg/dL Creatinine 6.29 H (0.72-1.25) mg/dL Est GFR ( Amer) 12 L (> 60) Est GFR (Non-Af Amer) 10 L (> 60) BUN/Creatinine Ratio 4 L (6-26) Glucose 97 (70-99) mg/dL POC Glucose (58-89) Calculated Osmolality 290 (280-300) Lactic Acid 0.9 (0.5-2.2) mmol/L Calcium 8.4 L (8.6-10.8) mg/dL Phosphorus (2.3-4.7) mg/dL Magnesium (1.6-2.6) mg/dL Total Bilirubin 1.1 (0.2-1.2) mg/dL AST 20 (5-34) Units/L ALT 14 (0-55) Units/L Alkaline Phosphatase 521 H (38-126) Units/L Ammonia (18-72) mcmol/L Troponin I (0-0.03) ng/mL B-Natriuretic Peptide 553 H (0-100) pg/mL Serum Total Protein 6.9 (6.0-8.3) g/dL Albumin 3.1 L (3.5-5.0) g/dL Globulin 3.8 H (2.4-3.5) g/dL Albumin/Globulin Ratio 0.8 L (1.1-2.2) 11/16/16 11/16/16 11/16/16 Range/Units 16:49 16:49 16:49 WBC (4.3-11.1) K/mcL RBC (4.19-5.50) M/mcL Hgb (12.9-16.9) g/dL Hct (37.5-50.1) % MCV (83.0-100.0) fL MCH (28.0-33.3) pg MCHC (31.6-35.5) g/dL RDW (11.5-14.5) % Plt Count (140-400) K/mcL MPV (9.4-12.4) fL Immature Gran % (0-4) % Seg Neutrophils % % Lymphocytes % % Monocytes % % Eosinophils % % Basophils % % Neutrophils # (1.6-8.9) K/mcL Lymphocytes # (0.6-4.6) K/mcL Monocytes # (0.0-1.3) K/mcL Eosinophils # (0.0-0.6) K/mcL Basophils # (0.0-0.2) K/mcL Nucleated RBCs/100 WBC (0) /100 WBC Platelet Estimate (Normal) Immature Plt Fraction (1.1-6.1) % Polychromasia (Not Present) Basophilic Stippling (Not Present) Anisocytosis (Not Present) Microcytosis (Not Present) Macrocytosis (Not Present) APTT (26.0-36.0) Seconds Sodium (136-145) mEq/L Potassium (3.5-4.5) mEq/L Chloride (98-109) mEq/L Carbon Dioxide (19-29) mEq/L BUN (8-26) mg/dL Creatinine (0.72-1.25) mg/dL Est GFR ( Amer) (> 60) Est GFR (Non-Af Amer) (> 60) BUN/Creatinine Ratio (6-26) Glucose (70-99) mg/dL POC Glucose (58-89) Calculated Osmolality (280-300) Lactic Acid (0.5-2.2) mmol/L Calcium (8.6-10.8) mg/dL Phosphorus 4.9 H (2.3-4.7) mg/dL Magnesium 1.9 (1.6-2.6) mg/dL Total Bilirubin (0.2-1.2) mg/dL AST (5-34) Units/L ALT (0-55) Units/L Alkaline Phosphatase (38-126) Units/L Ammonia 60 (18-72) mcmol/L Troponin I 0.05 H* (0-0.03) ng/mL B-Natriuretic Peptide (0-100) pg/mL Serum Total Protein (6.0-8.3) g/dL Albumin (3.5-5.0) g/dL Globulin (2.4-3.5) g/dL Albumin/Globulin Ratio (1.1-2.2) - Radiology Data Radiology results reviewed: Yes I reviewed the patient's radiology results. - EKG Data EKG attestation: Yes I reviewed and interpreted this EKG. EKG results narrative: Atrial flutter, rate 134, normal axis, no acute ischemic changes. TPA Checklist - LKW: 3-4.5 hrs Add. Warnings/Precautions Patient/family understanding: The patient/family members have been counseled and understood the risk, benefit , and alternatives of treatment. Yessenia - Yessenia Situation: Demographics, MOA Background: Presenting Complaint, Relevant PMH, Meds, & Allergies Assessment: Vital Signs, Course and respsone to treatment, Exam Concerns, Patient/Family Expectation, Pertinant Lab Results, Outstanding Labs Recommendation: Recommendation based on pending studies, treatments, or consults SHaylee Report Given to: Dr. Elijah Casas Repor Time: 18:40
[2016-11-16 17:12] LABS: Immature Granulocytes % 1.4 % (0-4); Mean Corpuscular Hemoglobin 28.3 pg (28.0-33.3); Mean Corpuscular Volume 97.8 fL (83.0-100.0); Mean Platelet Volume 11.5 fL (9.4-12.4); Red Cell Distribution Width 24.1 % (11.5-14.5)
[2016-11-16 17:13] LABS: Basophils % 0.5 %; Eosinophils # 0.1 K/mcL (0.0-0.6); Eosinophils % 1.3 %; Hematocrit 39.4 % (37.5-50.1); Hemoglobin 11.4 g/dL (12.9-16.9); Immature Platelets 12.4 % (1.1-6.1); Lymphocytes # 0.9 K/mcL (0.6-4.6); Lymphocytes % 14.8 %; Mean Corpuscular HGB Conc 28.9 g/dL (31.6-35.5); Monocytes # 0.7 K/mcL (0.0-1.3); Monocytes % 10.7 %; Neutrophils # 4.5 K/mcL (1.6-8.9); Nucleated Red Blood Cells 1.6 /100 WBC (0); Red Blood Count 4.03 M/mcL (4.19-5.50); Segmented Neutrophils % 71.3 %
[2016-11-16] MEDS ORDERED: 0.9 % Sodium Chloride 1,000 ML IVC ONE (17:19)
[2016-11-16] MEDS ORDERED: *HR* Etomidate 20 MG/10 ML AMPUL IVP ONE (17:20)
[2016-11-16] MEDS ORDERED: *HR* Rocuronium Bromide 50 MG/5 ML VIAL IVP ONE (17:20)
--- NOTE | 2016-11-16 17:22 | Emergency Department Note ---
Disposition Clinical Impression: Acute and chronic respiratory failure, Medical non-compliance, Altered mental status, Encephalopathy acute Disposition: Admitted As Inpatient Condition: Serious General Adult HPI - General Chief complaint: ED Altered Mental Status Stated complaint: unresponsive Time Seen by Provider: 11/16/16 16:26 Source: EMS Mode of arrival: EMS Limitations: altered mental status Nursing Notes Reviewed: Yes Vital Signs Reviewed: Yes - History of Present Illness HPI Narrative: Only procedure note for intubation and IO Pain Scale: 0 - Related Data Home Medications Medication Instructions Recorded Confirmed Insulin Glargine,Hum.rec.anlog 30 unit SQ BID #0 01/07/15 10/01/16 [Lantus Solostar] [place] Oil/[place]-3 Fatty Acids 1 cap PO DAILY #0 01/07/15 10/01/16 [Fish Oil 500 mg Softgel] Carvedilol [Coreg] 50 mg PO BIDWM 01/24/16 10/01/16 Duloxetine HCl [Cymbalta] 60 mg PO DAILY 01/24/16 10/01/16 Lidocaine/Prilocaine CREAM [Emla] 1 appl TP AD PRN 01/24/16 10/01/16 Pantoprazole Sodium [Protonix] 40 mg PO DAILY 01/24/16 10/01/16 Renal Vitamin [Renal Caps Softgel] 1 mg PO DAILY 01/24/16 10/01/16 Ammonium Lactate 1 appl TP BID 09/02/16 10/01/16 Cinacalcet HCl [Sensipar] 60 mg PO DAILY 09/02/16 10/01/16 hydrALAZINE [HydrALAZINE] 25 mg PO BID 09/02/16 10/01/16 Tetrahydrozoline [Visine] 1 drop BOTH EYES QID PRN 09/29/16 10/01/16 Warfarin [Coumadin] 5 mg PO Q48H 09/29/16 10/01/16 Warfarin [Coumadin] 7.5 mg PO Q48H 09/29/16 10/01/16 Previous Rx's Medication Instructions Recorded Rosuvastatin [Crestor] 20 mg PO DAILY tablet 01/08/15 Amiodarone [Cordarone] 200 mg PO BID tablet 09/19/16 Calcium Acetate [Phos-LO] 1,334 mg PO TIDWM capsule 09/19/16 Docusate [Colace] 100 mg PO BID PRN #0 capsule 09/19/16 Ipratropium Neb [Atrovent Neb] 0.5 mg IH TIDR inhsol 09/19/16 Levalbuterol Neb [Xopenex Neb] 0.63 mg IH TIDR vial.neb 09/19/16 Nicotine Patch [Nicoderm] 21 mg TD DAILY patch.td24 09/19/16 Pregabalin [Lyrica] 50 mg PO BID #14 capsule 10/04/16 Tramadol HCl [Ultram] 50 mg PO BID PRN #14 tab 10/04/16 cephALEXin [Cephalexin] 500 mg PO BID 4 Days 10/04/16 Allergies Allergy/AdvReac Type Severity Reaction Status Date / Time hydrocodone [From [place]] Allergy Intermediate Hives Verified 09/29/16 16:59 Past Medical History - Past Medical History Medical history: Reports: arthritis, cardiomyopathy, CHF, COPD, diabetes, dialysis, GERD, hyperlipidemia, hypertension, osteoporosis, renal disease, other Surgical history: Reports: herniorrhaphy, vascular surgery, other Psychiatric history: Reports: anxiety, depression, other - Social History Smoking Status: Current every day smoker Smokeless Tobacco Status: No Alcohol use: Reports: none, unknown Drug use: Reports: marijuana, other Physical Exam - General Limitations: altered mental status General appearance: lethargic, obtunded (Patient is completely obtunded, breathing spontaneously and will lift his head up to deep painful stimuli) Course Vital Signs Temperature 96.4 F L 11/16/16 16:18 Pulse Rate 135 11/16/16 16:18 Respiratory Rate 10 11/16/16 16:18 Blood Pressure 82/66 11/16/16 16:18 O2 Sat by Pulse Oximetry 91 11/16/16 16:18 Temperature 96.4 F L 11/16/16 16:18 Pulse Rate 135 11/16/16 18:52 Respiratory Rate 14 11/16/16 18:52 Blood Pressure 100/72 11/16/16 18:52 O2 Sat by Pulse Oximetry 97 11/16/16 18:52 Oxygen Delivery Oxygen Delivery Ventilator Procedures - Intubation Time out performed: Yes sedative: Etomidate Mg Given: 30 paralytic: Rocuronium Mg Given: 120 Laryngoscope: Paul ET Tube Size: 7.5 ET Tube Uncuffed: No Tube Secured Depth (cm): 26 Tube Secured Location: lips Tube Placement Confirmation: visualized tube passing through cords, equal breath sounds bilaterally, no breath sounds over epigastrium, confirmation by capnometry Patient Tolerated Procedure: no complications Intubation Complications: none Additional Comments: Had a difficult airway. Cords were very caudal. First try procedure without giving rocuronium the patient was fighting so backed out. Second attempt included after rocuronium was given an cords were easily seen and tube was placed through the cords with no problems - IO Right Tibia Time Out Performed: Yes IO Instrument Used to Penetrate the Cortex: battery powered IO drill Patient Tolerated Procedure: no complications Complications: none Additional Comments: Low needle was placed due to no bleeding needles being available at that time. Patient was unconscious but during flushing woke up a little and then went back to sleep Medical Decision Making - MDM Narrative Medical decision making narrative: Only procedure note for intubation and IO - Lab Data Result diagrams: 11/16/16 16:49 11/16/16 16:49 Lab Results 11/16/16 11/16/16 11/16/16 Range/Units 16:24 16:49 16:49 WBC 6.3 (4.3-11.1) K/mcL RBC 4.03 L (4.19-5.50) M/mcL Hgb 11.4 L (12.9-16.9) g/dL Hct 39.4 (37.5-50.1) % MCV 97.8 (83.0-100.0) fL MCH 28.3 (28.0-33.3) pg MCHC 28.9 L (31.6-35.5) g/dL RDW 24.1 H (11.5-14.5) % Plt Count 83 L (140-400) K/mcL MPV 11.5 (9.4-12.4) fL Immature Gran % 1.4 (0-4) % Seg Neutrophils % 71.3 % Lymphocytes % 14.8 % Monocytes % 10.7 % Eosinophils % 1.3 % Basophils % 0.5 % Neutrophils # 4.5 (1.6-8.9) K/mcL Lymphocytes # 0.9 (0.6-4.6) K/mcL Monocytes # 0.7 (0.0-1.3) K/mcL Eosinophils # 0.1 (0.0-0.6) K/mcL Basophils # 0.0 (0.0-0.2) K/mcL Nucleated RBCs/100 WBC 1.6 H (0) /100 WBC Platelet Estimate Slight Decrease L (Normal) Immature Plt Fraction 12.4 H (1.1-6.1) % Polychromasia 2+ A (Not Present) Basophilic Stippling 1+ A (Not Present) Anisocytosis 3+ A (Not Present) Microcytosis Present A (Not Present) Macrocytosis Present A (Not Present) APTT 38.4 H (26.0-36.0) Seconds ABG pH (7.32-7.45) pH Units ABG pCO2 (35-45) mmHg ABG pO2 (85-104) mmHg ABG HCO3 (21-27) mEQ/L ABG Total CO2 (20-26) mEq/L ABG O2 Saturation (95-98) % ABG Base Excess (-2.0 to 3.0) mEq/L Blood Gas Modality Inspired O2 % Sodium (136-145) mEq/L Potassium (3.5-4.5) mEq/L Chloride (98-109) mEq/L Carbon Dioxide (19-29) mEq/L BUN (8-26) mg/dL Creatinine (0.72-1.25) mg/dL Est GFR ( Amer) (> 60) Est GFR (Non-Af Amer) (> 60) BUN/Creatinine Ratio (6-26) Glucose (70-99) mg/dL POC Glucose 95 H (58-89) Calculated Osmolality (280-300) Lactic Acid (0.5-2.2) mmol/L Calcium (8.6-10.8) mg/dL Phosphorus (2.3-4.7) mg/dL Magnesium (1.6-2.6) mg/dL Total Bilirubin (0.2-1.2) mg/dL AST (5-34) Units/L ALT (0-55) Units/L Alkaline Phosphatase (38-126) Units/L Ammonia (18-72) mcmol/L Troponin I (0-0.03) ng/mL B-Natriuretic Peptide (0-100) pg/mL Serum Total Protein (6.0-8.3) g/dL Albumin (3.5-5.0) g/dL Globulin (2.4-3.5) g/dL Albumin/Globulin Ratio (1.1-2.2) 11/16/16 11/16/16 11/16/16 Range/Units 16:49 16:49 16:49 WBC (4.3-11.1) K/mcL RBC (4.19-5.50) M/mcL Hgb (12.9-16.9) g/dL Hct (37.5-50.1) % MCV (83.0-100.0) fL MCH (28.0-33.3) pg MCHC (31.6-35.5) g/dL RDW (11.5-14.5) % Plt Count (140-400) K/mcL MPV (9.4-12.4) fL Immature Gran % (0-4) % Seg Neutrophils % % Lymphocytes % % Monocytes % % Eosinophils % % Basophils % % Neutrophils # (1.6-8.9) K/mcL Lymphocytes # (0.6-4.6) K/mcL Monocytes # (0.0-1.3) K/mcL Eosinophils # (0.0-0.6) K/mcL Basophils # (0.0-0.2) K/mcL Nucleated RBCs/100 WBC (0) /100 WBC Platelet Estimate (Normal) Immature Plt Fraction (1.1-6.1) % Polychromasia (Not Present) Basophilic Stippling (Not Present) Anisocytosis (Not Present) Microcytosis (Not Present) Macrocytosis (Not Present) APTT (26.0-36.0) Seconds ABG pH (7.32-7.45) pH Units ABG pCO2 (35-45) mmHg ABG pO2 (85-104) mmHg ABG HCO3 (21-27) mEQ/L ABG Total CO2 (20-26) mEq/L ABG O2 Saturation (95-98) % ABG Base Excess (-2.0 to 3.0) mEq/L Blood Gas Modality Inspired O2 % Sodium 138 (136-145) mEq/L Potassium 3.8 (3.5-4.5) mEq/L Chloride 99 (98-109) mEq/L Carbon Dioxide 29 (19-29) mEq/L BUN 23 (8-26) mg/dL Creatinine 6.29 H (0.72-1.25) mg/dL Est GFR ( Amer) 12 L (> 60) Est GFR (Non-Af Amer) 10 L (> 60) BUN/Creatinine Ratio 4 L (6-26) Glucose 97 (70-99) mg/dL POC Glucose (58-89) Calculated Osmolality 290 (280-300) Lactic Acid 0.9 (0.5-2.2) mmol/L Calcium 8.4 L (8.6-10.8) mg/dL Phosphorus (2.3-4.7) mg/dL Magnesium (1.6-2.6) mg/dL Total Bilirubin 1.1 (0.2-1.2) mg/dL AST 20 (5-34) Units/L ALT 14 (0-55) Units/L Alkaline Phosphatase 521 H (38-126) Units/L Ammonia (18-72) mcmol/L Troponin I (0-0.03) ng/mL B-Natriuretic Peptide 553 H (0-100) pg/mL Serum Total Protein 6.9 (6.0-8.3) g/dL Albumin 3.1 L (3.5-5.0) g/dL Globulin 3.8 H (2.4-3.5) g/dL Albumin/Globulin Ratio 0.8 L (1.1-2.2) 11/16/16 11/16/16 11/16/16 Range/Units 16:49 16:49 16:49 WBC (4.3-11.1) K/mcL RBC (4.19-5.50) M/mcL Hgb (12.9-16.9) g/dL Hct (37.5-50.1) % MCV (83.0-100.0) fL MCH (28.0-33.3) pg MCHC (31.6-35.5) g/dL RDW (11.5-14.5) % Plt Count (140-400) K/mcL MPV (9.4-12.4) fL Immature Gran % (0-4) % Seg Neutrophils % % Lymphocytes % % Monocytes % % Eosinophils % % Basophils % % Neutrophils # (1.6-8.9) K/mcL Lymphocytes # (0.6-4.6) K/mcL Monocytes # (0.0-1.3) K/mcL Eosinophils # (0.0-0.6) K/mcL Basophils # (0.0-0.2) K/mcL Nucleated RBCs/100 WBC (0) /100 WBC Platelet Estimate (Normal) Immature Plt Fraction (1.1-6.1) % Polychromasia (Not Present) Basophilic Stippling (Not Present) Anisocytosis (Not Present) Microcytosis (Not Present) Macrocytosis (Not Present) APTT (26.0-36.0) Seconds ABG pH (7.32-7.45) pH Units ABG pCO2 (35-45) mmHg ABG pO2 (85-104) mmHg ABG HCO3 (21-27) mEQ/L ABG Total CO2 (20-26) mEq/L ABG O2 Saturation (95-98) % ABG Base Excess (-2.0 to 3.0) mEq/L Blood Gas Modality Inspired O2 % Sodium (136-145) mEq/L Potassium (3.5-4.5) mEq/L Chloride (98-109) mEq/L Carbon Dioxide (19-29) mEq/L BUN (8-26) mg/dL Creatinine (0.72-1.25) mg/dL Est GFR ( Amer) (> 60) Est GFR (Non-Af Amer) (> 60) BUN/Creatinine Ratio (6-26) Glucose (70-99) mg/dL POC Glucose (58-89) Calculated Osmolality (280-300) Lactic Acid (0.5-2.2) mmol/L Calcium (8.6-10.8) mg/dL Phosphorus 4.9 H (2.3-4.7) mg/dL Magnesium 1.9 (1.6-2.6) mg/dL Total Bilirubin (0.2-1.2) mg/dL AST (5-34) Units/L ALT (0-55) Units/L Alkaline Phosphatase (38-126) Units/L Ammonia 60 (18-72) mcmol/L Troponin I 0.05 H* (0-0.03) ng/mL B-Natriuretic Peptide (0-100) pg/mL Serum Total Protein (6.0-8.3) g/dL Albumin (3.5-5.0) g/dL Globulin (2.4-3.5) g/dL Albumin/Globulin Ratio (1.1-2.2) 11/16/16 Range/Units 18:31 WBC (4.3-11.1) K/mcL RBC (4.19-5.50) M/mcL Hgb (12.9-16.9) g/dL Hct (37.5-50.1) % MCV (83.0-100.0) fL MCH (28.0-33.3) pg MCHC (31.6-35.5) g/dL RDW (11.5-14.5) % Plt Count (140-400) K/mcL MPV (9.4-12.4) fL Immature Gran % (0-4) % Seg Neutrophils % % Lymphocytes % % Monocytes % % Eosinophils % % Basophils % % Neutrophils # (1.6-8.9) K/mcL Lymphocytes # (0.6-4.6) K/mcL Monocytes # (0.0-1.3) K/mcL Eosinophils # (0.0-0.6) K/mcL Basophils # (0.0-0.2) K/mcL Nucleated RBCs/100 WBC (0) /100 WBC Platelet Estimate (Normal) Immature Plt Fraction (1.1-6.1) % Polychromasia (Not Present) Basophilic Stippling (Not Present) Anisocytosis (Not Present) Microcytosis (Not Present) Macrocytosis (Not Present) APTT (26.0-36.0) Seconds ABG pH 7.19 L* (7.32-7.45) pH Units ABG pCO2 80 H* (35-45) mmHg ABG pO2 55 L (85-104) mmHg ABG HCO3 30.6 H (21-27) mEQ/L ABG Total CO2 33.1 H (20-26) mEq/L ABG O2 Saturation 80 L (95-98) % ABG Base Excess 0.0 (-2.0 to 3.0) mEq/L Blood Gas Modality VC+ Inspired O2 40 % Sodium (136-145) mEq/L Potassium (3.5-4.5) mEq/L Chloride (98-109) mEq/L Carbon Dioxide (19-29) mEq/L BUN (8-26) mg/dL Creatinine (0.72-1.25) mg/dL Est GFR ( Amer) (> 60) Est GFR (Non-Af Amer) (> 60) BUN/Creatinine Ratio (6-26) Glucose (70-99) mg/dL POC Glucose (58-89) Calculated Osmolality (280-300) Lactic Acid (0.5-2.2) mmol/L Calcium (8.6-10.8) mg/dL Phosphorus (2.3-4.7) mg/dL Magnesium (1.6-2.6) mg/dL Total Bilirubin (0.2-1.2) mg/dL AST (5-34) Units/L ALT (0-55) Units/L Alkaline Phosphatase (38-126) Units/L Ammonia (18-72) mcmol/L Troponin I (0-0.03) ng/mL B-Natriuretic Peptide (0-100) pg/mL Serum Total Protein (6.0-8.3) g/dL Albumin (3.5-5.0) g/dL Globulin (2.4-3.5) g/dL Albumin/Globulin Ratio (1.1-2.2)
[2016-11-16 17:29] LABS: Platelet Count 83 K/mcL (140-400)
[2016-11-16 17:30] LABS: Platelet Estimate Slight Decrease (Normal)
[2016-11-16 17:31] LABS: Activated Partial Thrombo Time 38.4 Seconds (26.0-36.0); Basophilic Stippling 1+ (Not Present); Magnesium 1.9 mg/dL (1.6-2.6); Phosphorous 4.9 mg/dL (2.3-4.7)
[2016-11-16 17:32] LABS: Anisocytosis 3+ (Not Present); Macrocytosis Present (Not Present); Microcytosis Present (Not Present); Polychromasia 2+ (Not Present)
[2016-11-16 17:33] LABS: Albumin 3.1 g/dL (3.5-5.0); Albumin/Globulin Ratio 0.8 (1.1-2.2); Bilirubin,Total 1.1 mg/dL (0.2-1.2); Calcium 8.4 mg/dL (8.6-10.8); Globulin 3.8 g/dL (2.4-3.5); Potassium 3.8 mEq/L (3.5-4.5); Total Protein 6.9 g/dL (6.0-8.3)
[2016-11-16] MEDS ORDERED: *HR* Vecuronium 10 MG VIAL IVP ONE (17:52)
[2016-11-16 18:39] LABS: ABG HCO3 30.6 mEQ/L (21-27); ABG Oxygen Saturation 80 % (95-98); ABG PO2 55 mmHg (85-104); ABG TCO2 33.1 mEq/L (20-26)
[2016-11-16 18:45] LABS: ABG PCO2 80 mmHg (35-45); ABG PH 7.19 pH Units (7.32-7.45); Blood Gas FiO2 40 %
[2016-11-16] MEDS: Dexmedetomidine HCl 400 MCG/100 ML MLS IVC SCH ×2 (19:20→22:15)
[2016-11-16] MEDS ORDERED: Naloxone 0.4 MG/ML INJ IVP PRN (19:52)
[2016-11-16] MEDS ORDERED: Lacri-Lube 3.5 GM TUBE BOTH EYES PRN (19:58)
[2016-11-16] MEDS ORDERED: *HR* Dextrose 50 % in Water (Syg) 50 ML SYRINGE IVP PRN (20:06)
[2016-11-16] MEDS: Budesonide/Formoterol 160/4.5 MDI IH SCH ×2 (20:28→22:11)
--- NOTE | 2016-11-16 20:28 | Internal Med History&Physical ---
<Hiram Bonilla - Last Filed: 11/16/16 21:10> Date of Encounter: 11/16/16 Time of Encounter: 20:26 Assessment and Plan (1) Encephalopathy acute Current visit: Yes Status: Acute Cause unclear at this time but the patient's altered mental status is most likely related to hypercapnia. Patient does have a history of drug abuse auscultation can certainly be a cause as well. Head CT is negative. No evidence of metabolic derangement. No evidence of acute bleed. We will use minimal sedation to attempt to assess the patient's mental status as his hypercapnic respiratory acidosis improves. (2) Acute and chronic respiratory failure with hypercapnia Current visit: No Status: Acute Patient presented with a pH of 7.19 and PCO2 of 80 and altered mental status. Patient has COPD and chronic respiratory failure. We will attempt to correct the respiratory acidosis with mechanical ventilation. Continue Symbicort, Atrovent, Xopenex. (3) End stage renal disease on dialysis Current visit: No Status: Chronic Patient apparently completed dialysis today. No indications for acute dialysis at this time. Nephrology has been consulted. (4) COPD (chronic obstructive pulmonary disease) Current visit: No Status: Chronic Patient does not appear to be in acute exacerbation. Continue Symbicort and scheduled bronchodilators. No indications for antibiotics or steroids at this time. Qualifiers: COPD type: unspecified COPD Qualified Code(s): J44.9 - Chronic obstructive pulmonary disease, unspecified (5) Atrial fibrillation Current visit: No Status: Acute Heart rate mildly elevated on presentation with diastolic blood pressure elevated as well. Will restart on carvedilol. Patient is anticoagulated with warfarin however his INR is low at 1.3, will continue this with pharmacy to assist in dosing. Qualifiers: Atrial fibrillation type: chronic Qualified Code(s): I48.2 - Chronic atrial fibrillation (6) Type 2 diabetes mellitus Current visit: No Status: Acute Blood sugars under good control this time. We will hold home insulin as the patient's blood sugar is 100 on presentation and he is nothing by mouth at this time. Monitor blood sugars every 6 hours and will institute insulin when necessary. Qualifiers: Diabetes mellitus complication status: with kidney complications Diabetes mellitus complication detail: with chronic kidney disease Diabetes mellitus alf insulin use: with alf use Chronic kidney disease stage: on chronic dialysis Qualified Code(s): E11.22 - Type 2 diabetes mellitus with diabetic chronic kidney disease; N18.6 - End stage renal disease; Z79.4 - [employer] (current) use of insulin; Z99.2 - Dependence on renal dialysis (7) Systolic heart failure Current visit: No Status: Acute No evidence of acute exacerbation of the patient's underlying systolic heart failure. No volume overload on exam, chest x-ray does not show significant pulmonary edema. Continue beta ga, ERIKA inhibitor is contraindicated in the setting of end-stage renal disease. Qualifiers: Heart failure chronicity: chronic Qualified Code(s): I50.22 - Chronic systolic (congestive) heart failure (8) DVT prophylaxis Current visit: No Status: Acute Patient is being anticoagulated with Coumadin however his INR is low, 1.3 on presentation. We will cover with subcutaneous heparin 5000 units twice a day until INR becomes therapeutic. Internal Medicine - H&P: HPI Chief complaint: AMS Admitted From: Home Plans for Post Hospital Care: Home History of present illness: Mr. Hatch is a 45 year old male with history of atrial fibrillation, ESRD presents with altered mental status. At the time I examined the patient was intubated and sedated so history is somewhat limited. Per ER documentation the patient received dialysis today and at the end of his dialysis session he became acutely altered. He was given Narcan in the emergency department and no effect. Given the patient's altered mental status and concern for airway protection he was intubated. No other history was able to be given by the dialysis center, EMS, or family. Past Med Surg Social Fam HX - Past Medical History Medical history: arthritis, cardiomyopathy, CHF, COPD, diabetes, dialysis, GERD , hyperlipidemia, hypertension, osteoporosis, renal disease, other Psychiatric history: anxiety, depression, other - Past Surgical History Surgical History: herniorrhaphy, vascular surgery, other - Social History Smoking Status: Current every day smoker Smokeless Tobacco Status: No Alcohol use: none, unknown Drug use: marijuana, other - Family History Father Living Status: Hx Family Cardiac Disorders: No Hx Family Respiratory Disorders: No Hx Family Cancer: No Hx Family GI Disorders: No Hx Family Endocrine Disorder: No Hx Family Neuromuscular Disorders: No Hx Family Neurologic Disorders: No Hx Family HEENT Disorders: No Hx Family Autoimmune Disorders: No Mother Adopted: No Living Status: Still Living Hx Family Cardiac Disorders: Yes Hx Family Endocrine Disorder: Yes Internal Medicine - H&P: Meds Insulin Glargine,Hum.rec.anlog [Lantus Solostar] 30 unit SQ BID #0 01/07/15 [ History] [place] Oil/Reading-3 Fatty Acids [Fish Oil 500 mg Softgel] 1 cap PO DAILY #0 [History] Carvedilol [Coreg] 12.5 mg PO BIDWM 01/24/16 [History] Duloxetine HCl [Cymbalta] 60 mg PO DAILY 01/24/16 [History] Renal Vitamin [Renal Caps Softgel] 1 mg PO DAILY 01/24/16 [History] Ammonium Lactate 1 appl TP BID PRN 09/02/16 [History] Cinacalcet HCl [Sensipar] 120 mg PO DAILY 09/02/16 [History] hydrALAZINE [HydrALAZINE] 25 mg PO BID 09/02/16 [History] Amiodarone [Cordarone] 200 mg PO BID tablet 09/19/16 [Rx] Docusate [Colace] 100 mg PO BID PRN #0 capsule 09/19/16 [Rx] Ipratropium Neb [Atrovent Neb] 0.5 mg IH TIDR inhsol 09/19/16 [Rx] Levalbuterol Neb [Xopenex Neb] 0.63 mg IH TIDR vial.neb 09/19/16 [Rx] Tetrahydrozoline [Visine] 1 drop BOTH EYES QID PRN 09/29/16 [History] Warfarin [Coumadin] 5 mg PO Q48H 09/29/16 [History] Warfarin [Coumadin] 7.5 mg PO Q48H 09/29/16 [History] Atorvastatin [Lipitor] 40 mg PO HS 11/16/16 [History] Budesonide/Formoterol 160/4.5 [Symbicort 160/4.5] 2 puff IH BIDR PRN 11/16/16 [ History] Calcium Acetate [Phos-LO] 2,668 mg PO TIDWM 11/16/16 [History] Ethyl Chloride 1 unit TP MOWEFR 11/16/16 [History] Nicotine Patch [Nicoderm] 14 mg TD DAILY 11/16/16 [History] Omeprazole [PriLOSEC] 20 mg PO DAILY 11/16/16 [History] Oxygen 2 l NS AD 11/16/16 [History] Pregabalin [Lyrica] 100 mg PO TID 11/16/16 [History] Allergies hydrocodone [From [place]] Allergy (Intermediate, Verified 09/29/16 16:59) Hives ROS unobtainable: due to endotracheal tube All Systems PM: A 10-system review of systems was performed and is negative for pertinent findings except as documented above in the HPI. - Constitutional Vitals: Temp Pulse Resp BP Pulse Ox 96.6 F L 128 22 128/101 100 11/16/16 19:20 11/16/16 19:52 11/16/16 20:05 11/16/16 20:05 11/16/16 20:05 General appearance: Present: A&O X 0 Exam: Intubated and sedated. - Head Head exam: Present: atraumatic, normal inspection, normocephalic - Eye Additional comments: Pupils are constricted to approximately 2 mm and reactive to light bilaterally. - ENT ENT exam: Present: mucous membranes moist - Respiratory Respiratory exam: Present: CTAB (Coarse breath sounds). Absent: rales, rhonchi , wheezes - Cardiovascular Cardiovascular exam: Present: irregular rhythm, tachycardia. Absent: gallop, rubs, systolic murmur - GI/Abdominal GI/Abdominal exam: Present: distended (Mild), normal bowel sounds, soft. Absent : tenderness - Extremities Exam Extremities exam: Present: pedal edema (Trace), warm. Absent: tenderness - Neurological Exam Additional comments: Patient is intubated at this time and sedated using Precedex. He does not respond to verbal stimuli. Internal Med - H&P Results - Labs CBC & Chem 7: 11/16/16 16:49 11/16/16 16:49 <Jeff Kulkarni - Last Filed: 11/17/16 04:26> Date of Encounter: 11/17/16 Internal Medicine - H&P: HPI History of present illness: Mr. Hatch is a 45 year old male All Systems PM: A 10-system review of systems was performed and is negative for pertinent findings except as documented above in the HPI. - Constitutional Vitals: Temp Pulse Resp BP Pulse Ox 98.6 F 118 14 86/53 93 11/17/16 01:14 11/17/16 04:03 11/17/16 04:01 11/17/16 04:01 11/17/16 04:01 Internal Med - H&P Results - Labs CBC & Chem 7: 11/17/16 01:11 11/17/16 01:11 Labs: Short CBC 11/17/16 Range/Units 01:11 WBC 5.4 (4.3-11.1) K/mcL Hgb 11.6 L (12.9-16.9) g/dL Hct 39.5 (37.5-50.1) % Plt Count 80 L (140-400) K/mcL Neutrophils # 3.7 (1.6-8.9) K/mcL BMP 11/17/16 01:11 Sodium 137 Potassium 3.6 Chloride 98 Carbon Dioxide 29 BUN 27 H Creatinine 6.82 H Glucose 102 H Calcium 9.1 Liver Function 11/17/16 Range/Units 01:11 Total Bilirubin 1.1 (0.2-1.2) mg/dL Direct Bilirubin 0.5 (0.0-0.5) mg/dL AST 16 (5-34) Units/L ALT 13 (0-55) Units/L Alkaline Phosphatase 487 H (38-126) Units/L Albumin 2.8 L (3.5-5.0) g/dL - ABG Interpretation ABG results: 11/16/16 11/17/16 20:37 03:30 ABG pH 7.43 D 7.34 ABG pCO2 42 D 59 H ABG pO2 66 L 59 L ABG HCO3 27.9 H 31.8 H ABG Total CO2 29.2 H 33.6 H ABG O2 Saturation 93 L 88 L ABG Base Excess 3.2 H 4.4 H - Impressions ITS Impressions [facility] X-Ray 11/16/16 19:57 IMPRESSION: Orogastric tube with tip likely in the gastric pylorus and proximal side-port at the gastric antrum. D/ / 11/16/2016 20:37:29 Cisco Aponte MD / dequan Interpreting Provider: Cisco Aponte MD Chest X-Ray 11/16/16 20:14 IMPRESSION: Orogastric tube extends below the diaphragm into the abdomen. Please review results from [facility] for additional information. D/ / Pop Carvalho MD / Pop Carvalho MD Interpreting Provider: Pop Carvalho MD - Attending Attestation I examined this patient and my medical decision-making was reviewed with the Resident Physician. I agree with the documented findings, disposition and treatment plan as described
[2016-11-16 20:34] LABS: INR 1.3; Prothrombin Time 13.7 Seconds (9.4-12.1)
[2016-11-16 20:45] LABS: ABG Base Excess 3.2 mEq/L (-2.0 to 3.0); ABG HCO3 27.9 mEQ/L (21-27); ABG Oxygen Saturation 93 % (95-98); ABG PCO2 42 mmHg (35-45); ABG PH 7.43 pH Units (7.32-7.45); ABG PO2 66 mmHg (85-104); ABG TCO2 29.2 mEq/L (20-26)
[2016-11-16 20:46] LABS: Blood Gas FiO2 35 %
[2016-11-16] MEDS ORDERED: Insulin DETEMIR 100 UNIT/ML X5UNITS SQ SCH (21:00)
[2016-11-16] MEDS: *HR* Amiodarone 200 MG TABLET GTUBE SCH (21:01)
[2016-11-16] MEDS: Lacri-Lube 3.5 GM TUBE BOTH EYES SCH (21:01)
[2016-11-16] MEDS: Chlorhexidine Rinse 15 ML MOUTHWASH MM SCH (21:01)
[2016-11-16] MEDS ORDERED: *HR* Warfarin 7.5 MG TABLET PO ONE (21:28)
[2016-11-17 02:14] LABS: Basophils % 0.4 %; Eosinophils # 0.1 K/mcL (0.0-0.6); Eosinophils % 2.2 %; Hematocrit 39.5 % (37.5-50.1); Hemoglobin 11.6 g/dL (12.9-16.9); INR 1.4; Immature Granulocytes % 1.3 % (0-4); Immature Platelets 10.1 % (1.1-6.1); Lymphocytes # 0.9 K/mcL (0.6-4.6); Lymphocytes % 16.5 %; Mean Corpuscular HGB Conc 29.4 g/dL (31.6-35.5); Mean Corpuscular Hemoglobin 28.1 pg (28.0-33.3); Mean Corpuscular Volume 95.6 fL (83.0-100.0); Monocytes # 0.6 K/mcL (0.0-1.3); Monocytes % 11.7 %; Neutrophils # 3.7 K/mcL (1.6-8.9); Nucleated Red Blood Cells 1.9 /100 WBC (0); Prothrombin Time 14.8 Seconds (9.4-12.1); Red Blood Count 4.13 M/mcL (4.19-5.50); Red Cell Distribution Width 24.2 % (11.5-14.5); Segmented Neutrophils % 67.9 %
[2016-11-17 02:20] LABS: Albumin 2.8 g/dL (3.5-5.0); Albumin/Globulin Ratio 0.8 (1.1-2.2); Bilirubin,Direct 0.5 mg/dL (0.0-0.5); Bilirubin,Indirect 0.6 mg/dL (0.0-1.2); Bilirubin,Total 1.1 mg/dL (0.2-1.2); Calcium 9.1 mg/dL (8.6-10.8); Globulin 3.4 g/dL (2.4-3.5); Magnesium 1.9 mg/dL (1.6-2.6); Potassium 3.6 mEq/L (3.5-4.5); Total Protein 6.2 g/dL (6.0-8.3)
[2016-11-17] MEDS: Ipratropium Neb 0.5 MG NEBULIZER IH SCH ×3 (02:31→15:11)
[2016-11-17] MEDS: Levalbuterol Neb 0.63 MG/3 ML IH SCH ×3 (02:31→15:11)
[2016-11-17 02:54] LABS: Platelet Count 80 K/mcL (140-400)
[2016-11-17 03:43] LABS: ABG Base Excess 4.4 mEq/L (-2.0 to 3.0); ABG HCO3 31.8 mEQ/L (21-27); ABG Oxygen Saturation 88 % (95-98); ABG PCO2 59 mmHg (35-45); ABG PH 7.34 pH Units (7.32-7.45); ABG PO2 59 mmHg (85-104); ABG TCO2 33.6 mEq/L (20-26)
[2016-11-17 03:44] LABS: Platelet Estimate Decreased (Normal)
[2016-11-17 03:44] LABS: Blood Gas FiO2 30 %
[2016-11-17 03:45] LABS: Anisocytosis 2+ (Not Present)
[2016-11-17 03:46] LABS: Polychromasia 1+ (Not Present)
[2016-11-17] MEDS: Lacri-Lube 3.5 GM TUBE BOTH EYES SCH ×6 (03:56→20:42)
[2016-11-17] MEDS: Dexmedetomidine HCl 400 MCG/100 ML MLS IVC SCH ×3 (03:56→20:41)
[2016-11-17] MEDS: *HR* Heparin 5,000 UNIT/ML VIAL SQ SCH ×2 (05:20→17:44)
--- NOTE | 2016-11-17 06:55 | Pulmonology Consult Note ---
<BayleeHiram charles - Last Filed: 11/17/16 06:50> Date of Encounter: 11/17/16 Time of Encounter: 06:50 Assessment and Plan (1) Encephalopathy acute Current Visit: Yes Status: Acute Neuropsych: Patient is responsive and following commands. We will wean sedation with the plan of eventual extubation. Pulm: Adequate oxygenation and ventilation. Wean sedation with all treatment plan for spontaneous breathing trial and possible extubation today. Cards: History of underlying A. fib. Patient is in atrial fibrillation at this time with a rate in the 110s. Patient received rate controlling her labetalol last night. This will be held this morning due to hypotension. Anticoagulation with warfarin dosed per pharmacy. FEN-GI: Nothing by mouth this time. PPI for GI prophylaxis. Plan for extubation and transition to diet. Renal: ESRD on Wednesday dialysis. Nephrology is being consulted for possible dialysis today. ID: No signs of infection at this time. Continue to monitor. Heme/Onc: H&H and platelets are stable. Subcutaneous heparin for DVT prophylaxis Endo: Glucose monitored blood sugars have been normal. Continue to monitor and restart insulin if sugars become elevated Integ/MSK: Skin care per routine ICU protocol to prevent skin ulcers all lines examined without evidence of infection CODE: Full code. (2) Acute and chronic respiratory failure with hypercapnia Current Visit: No Status: Acute (3) End stage renal disease on dialysis Current Visit: No Status: Chronic (4) COPD (chronic obstructive pulmonary disease) Current Visit: No Status: Chronic Qualifiers: COPD type: unspecified COPD Qualified Code(s): J44.9 - Chronic obstructive pulmonary disease, unspecified (5) Atrial fibrillation Current Visit: No Status: Acute Qualifiers: Atrial fibrillation type: chronic Qualified Code(s): I48.2 - Chronic atrial fibrillation (6) Type 2 diabetes mellitus Current Visit: No Status: Acute Qualifiers: Diabetes mellitus complication status: with kidney complications Diabetes mellitus complication detail: with chronic kidney disease Diabetes mellitus prison insulin use: with predatory animal exterminator use Chronic kidney disease stage: on chronic dialysis Qualified Code(s): E11.22 - Type 2 diabetes mellitus with diabetic chronic kidney disease; N18.6 - End stage renal disease; Z79.4 - exterminator helper (current) use of insulin; Z99.2 - Dependence on renal dialysis (7) Systolic heart failure Current Visit: No Status: Acute Qualifiers: Heart failure chronicity: chronic Qualified Code(s): I50.22 - Chronic systolic (congestive) heart failure (8) DVT prophylaxis Current Visit: No Status: Acute History of Present Illness Consult date: 11/17/16 Requesting physician: Jeff Kulkarni Reason for consult: other (Acute respiratory failure) Chief complaint: Altered mental status History of present illness: Patient is a 45 year old male with history of atrial fibrillation, ESRD presents with altered mental status. At the time I examined the patient was intubated and sedated so history is somewhat limited. Per ER documentation the patient received dialysis today and at the end of his dialysis session he became acutely altered. He was given Narcan in the emergency department and no effect. Given the patient's altered mental status and concern for airway protection he was intubated. No other history was able to be given by the dialysis center, EMS, or family. This morning the patient is awake and responds to verbal commands. He is in no acute distress. Past Med Surg Social Fam HX - Past Medical History Medical history: arthritis, cardiomyopathy, CHF, COPD, diabetes, dialysis, GERD , hyperlipidemia, hypertension, osteoporosis, renal disease, other Psychiatric history: anxiety, depression, other - Past Surgical History Surgical History: herniorrhaphy, vascular surgery, other - Social History Smoking Status: Current every day smoker Smokeless Tobacco Status: No Alcohol use: none, unknown Drug use: marijuana, other - Family History Father Living Status: Hx Family Cardiac Disorders: No Hx Family Respiratory Disorders: No Hx Family Cancer: No Hx Family GI Disorders: No Hx Family Endocrine Disorder: No Hx Family Neuromuscular Disorders: No Hx Family Neurologic Disorders: No Hx Family HEENT Disorders: No Hx Family Autoimmune Disorders: No Mother Adopted: No Living Status: Still Living Hx Family Cardiac Disorders: Yes Hx Family Endocrine Disorder: Yes Medications and Allergies Insulin Glargine,Hum.rec.anlog [Lantus Solostar] 30 unit SQ BID #0 01/07/15 [ History] [place] Oil/[place]-3 Fatty Acids [Fish Oil 500 mg Softgel] 1 cap PO DAILY #0 [History] Carvedilol [Coreg] 12.5 mg PO BIDWM 01/24/16 [History] Duloxetine HCl [Cymbalta] 60 mg PO DAILY 01/24/16 [History] Renal Vitamin [Renal Caps Softgel] 1 mg PO DAILY 01/24/16 [History] Ammonium Lactate 1 appl TP BID PRN 09/02/16 [History] Cinacalcet HCl [Sensipar] 120 mg PO DAILY 09/02/16 [History] hydrALAZINE [HydrALAZINE] 25 mg PO BID 09/02/16 [History] Amiodarone [Cordarone] 200 mg PO BID tablet 09/19/16 [Rx] Docusate [Colace] 100 mg PO BID PRN #0 capsule 09/19/16 [Rx] Ipratropium Neb [Atrovent Neb] 0.5 mg IH TIDR inhsol 09/19/16 [Rx] Levalbuterol Neb [Xopenex Neb] 0.63 mg IH TIDR vial.neb 09/19/16 [Rx] Tetrahydrozoline [Visine] 1 drop BOTH EYES QID PRN 09/29/16 [History] Warfarin [Coumadin] 5 mg PO Q48H 09/29/16 [History] Warfarin [Coumadin] 7.5 mg PO Q48H 09/29/16 [History] Atorvastatin [Lipitor] 40 mg PO HS 11/16/16 [History] Budesonide/Formoterol 160/4.5 [Symbicort 160/4.5] 2 puff IH BIDR PRN 11/16/16 [ History] Calcium Acetate [Phos-LO] 2,668 mg PO TIDWM 11/16/16 [History] Ethyl Chloride 1 unit TP MOWEFR 11/16/16 [History] Nicotine Patch [Nicoderm] 14 mg TD DAILY 11/16/16 [History] Omeprazole [PriLOSEC] 20 mg PO DAILY 11/16/16 [History] Oxygen 2 l NS AD 11/16/16 [History] Pregabalin [Lyrica] 100 mg PO TID 11/16/16 [History] Allergies hydrocodone [From [place]] Allergy (Intermediate, Verified 09/29/16 16:59) Hives ROS unobtainable: due to endotracheal tube All Systems: A 10-system review of systems was performed and is negative for pertinent findings except as documented above in the HPI. Physical Examination Vital Signs: Vital Signs, Last 4 Hours Temp Pulse Resp BP Pulse Ox 11/17/16 06:31 14 96 11/17/16 06:00 114 14 95/63 96 11/17/16 05:06 98.7 F 11/17/16 04:03 118 11/17/16 04:01 14 86/53 93 11/17/16 04:00 114 14 86/53 95 11/17/16 03:00 113 14 96/65 94 General appearance: no acute distress ENT: oropharynx moist Effort: normal Inspection: normal Auscultation: right: rhonchi Cardiovascular: irregular rhythm (tachycardia) Gastrointestinal: normoactive bowel sounds, soft, non-tender Extremities: no cyanosis, no edema, no clubbing unable to assess due to mental status Ventilator Settings Ventilator Settings: Ventilator Settings, Last 8 Hours Ventilator Mode A/C Ventilator Mode A/C Ventilator Mode A/C Ventilator Mode A/C Ventilator Mode A/C Ventilator Mode A/C Ventilator Mode A/C Ventilator Mode A/C Ventilator Mode A/C Ventilator Mode A/C Ventilator Mode A/C Ventilator Mode A/C Ventilator Tidal Volume 550 Setting Ventilator Tidal Volume 550 Setting Ventilator Tidal Volume 550 Setting Ventilator Tidal Volume 550 Setting Ventilator Tidal Volume 550 Setting Ventilator Tidal Volume 550 Setting Ventilator Tidal Volume 550 Setting Ventilator Tidal Volume 550 Setting Ventilator Tidal Volume 550 Setting Ventilator Tidal Volume 550 Setting Ventilator Tidal Volume 550 Setting Ventilator Tidal Volume 550 Setting Ventilator Respiratory Rate 14 Setting Ventilator Respiratory Rate 14 Setting Ventilator Respiratory Rate 14 Setting Ventilator Respiratory Rate 14 Setting Ventilator Respiratory Rate 14 Setting Ventilator Respiratory Rate 14 Setting Ventilator Respiratory Rate 14 Setting Ventilator Respiratory Rate 14 Setting Ventilator Respiratory Rate 14 Setting Ventilator Respiratory Rate 14 Setting Ventilator Respiratory Rate 14 Setting Ventilator Respiratory Rate 14 Setting Actual Respiratory Rate 14 Actual Respiratory Rate 14 Actual Respiratory Rate 14 Actual Respiratory Rate 14 Actual Respiratory Rate 14 Actual Respiratory Rate 14 Actual Respiratory Rate 14 Actual Respiratory Rate 14 Actual Respiratory Rate 14 Actual Respiratory Rate 14 Actual Respiratory Rate 14 Positive End Expiratory 5 Pressure Positive End Expiratory 5 Pressure Positive End Expiratory 5 Pressure Positive End Expiratory 5 Pressure Positive End Expiratory 5 Pressure Positive End Expiratory 5 Pressure Positive End Expiratory 5 Pressure Positive End Expiratory 5 Pressure Positive End Expiratory 5 Pressure Positive End Expiratory 5 Pressure Positive End Expiratory 5 Pressure Peak Inspiratory Airway 45 Pressure Peak Inspiratory Airway 46 Pressure Peak Inspiratory Airway 39 Pressure Peak Inspiratory Airway 40 Pressure Peak Inspiratory Airway 40 Pressure Peak Inspiratory Airway 45 Pressure Peak Inspiratory Airway 49 Pressure Peak Inspiratory Airway 41 Pressure Peak Inspiratory Airway 39 Pressure Peak Inspiratory Airway 39 Pressure Peak Inspiratory Airway 38 Pressure Results - Laboratory Findings CBC and BMP: 11/17/16 01:11 11/17/16 01:11 ABG ABG pH 7.34 pH Units (7.32-7.45) 11/17/16 03:30 ABG pCO2 59 mmHg (35-45) H 11/17/16 03:30 ABG pO2 59 mmHg (85-104) L 11/17/16 03:30 ABG O2 Saturation 88 % (95-98) L 11/17/16 03:30 PT/INR, D-dimer PT 14.8 Seconds (9.4-12.1) H 11/17/16 01:11 Abnormal lab findings: Abnormal lab results RBC 4.13 M/mcL (4.19-5.50) L 11/17/16 01:11 Hgb 11.6 g/dL (12.9-16.9) L 11/17/16 01:11 MCHC 29.4 g/dL (31.6-35.5) L 11/17/16 01:11 RDW 24.2 % (11.5-14.5) H 11/17/16 01:11 Plt Count 80 K/mcL (140-400) L 11/17/16 01:11 Nucleated RBCs/100 WBC 1.9 /100 WBC (0) H 11/17/16 01:11 Platelet Estimate Decreased (Normal) L 11/17/16 01:11 Immature Plt Fraction 10.1 % (1.1-6.1) H 11/17/16 01:11 Polychromasia 1+ (Not Present) A 11/17/16 01:11 Basophilic Stippling 1+ (Not Present) A 11/16/16 16:49 Anisocytosis 2+ (Not Present) A 11/17/16 01:11 Microcytosis Present (Not Present) A 11/16/16 16:49 Macrocytosis Present (Not Present) A 11/16/16 16:49 PT 14.8 Seconds (9.4-12.1) H 11/17/16 01:11 APTT 38.4 Seconds (26.0-36.0) H 11/16/16 16:49 ABG pCO2 59 mmHg (35-45) H 11/17/16 03:30 ABG pO2 59 mmHg (85-104) L 11/17/16 03:30 ABG HCO3 31.8 mEQ/L (21-27) H 11/17/16 03:30 ABG Total CO2 33.6 mEq/L (20-26) H 11/17/16 03:30 ABG O2 Saturation 88 % (95-98) L 11/17/16 03:30 ABG Base Excess 4.4 mEq/L (-2.0 to 3.0) H 11/17/16 03:30 BUN 27 mg/dL (8-26) H 11/17/16 01:11 Creatinine 6.82 mg/dL (0.72-1.25) H 11/17/16 01:11 Est GFR ( Amer) 11 (> 60) L 11/17/16 01:11 Est GFR (Non-Af Amer) 9 (> 60) L 11/17/16 01:11 BUN/Creatinine Ratio 4 (6-26) L 11/17/16 01:11 Glucose 102 mg/dL (70-99) H 11/17/16 01:11 Phosphorus 5.0 mg/dL (2.3-4.7) H 11/17/16 01:11 Alkaline Phosphatase 487 Units/L (38-126) H 11/17/16 01:11 Troponin I 0.05 ng/mL (0-0.03) H* 11/16/16 16:49 B-Natriuretic Peptide 553 pg/mL (0-100) H 11/16/16 16:49 Albumin 2.8 g/dL (3.5-5.0) L 11/17/16 01:11 Albumin/Globulin Ratio 0.8 (1.1-2.2) L 11/17/16 01:11 - Clinical Findings Intake & Output: Intake & Output 11/16/16 11/16/16 11/17/16 15:59 23:59 07:59 Intake Total 115 / 1115 12 12 Output Total 250 / 250 Balance 115 / 1115 -238 / -238 Weight 123.6 kg Consult Discharge Plan - Plan Referrals: NO,PCP [Primary Care Provider] - <Dariel Greenfield - Last Filed: 11/17/16 17:49> Date of Encounter: 11/17/16 All Systems: A 10-system review of systems was performed and is negative for pertinent findings except as documented above in the HPI. Physical Examination Vital Signs: Vital Signs, Last 4 Hours Temp Pulse Resp BP Pulse Ox 11/17/16 16:30 122 20 101/90 97 11/17/16 15:50 25 94 11/17/16 15:41 99.1 F 11/17/16 15:30 128 18 82/66 96 11/17/16 15:11 25 84/59 92 11/17/16 14:30 118 17 77/58 96 Ventilator Settings Ventilator Settings: Ventilator Settings, Last 8 Hours Ventilator Mode CPAP Ventilator Mode A/C Ventilator Mode A/C Ventilator Mode A/C Ventilator Mode A/C Ventilator Mode A/C Ventilator Tidal Volume 550 Setting Ventilator Tidal Volume 550 Setting Ventilator Tidal Volume 550 Setting Ventilator Tidal Volume 550 Setting Ventilator Tidal Volume 550 Setting Ventilator Respiratory Rate 14 Setting Ventilator Respiratory Rate 14 Setting Ventilator Respiratory Rate 14 Setting Ventilator Respiratory Rate 14 Setting Actual Respiratory Rate 25 Actual Respiratory Rate 14 Actual Respiratory Rate 15 Actual Respiratory Rate 14 Actual Respiratory Rate 16 Positive End Expiratory 5 Pressure Positive End Expiratory 5 Pressure Positive End Expiratory 5 Pressure Positive End Expiratory 5 Pressure Positive End Expiratory 5 Pressure Peak Inspiratory Airway 11 Pressure Peak Inspiratory Airway 42 Pressure Peak Inspiratory Airway 41 Pressure Peak Inspiratory Airway 34 Pressure Peak Inspiratory Airway 40 Pressure Peak Inspiratory Airway 40 Pressure Peak Inspiratory Airway 38 Pressure Peak Inspiratory Airway 39 Pressure Results - Laboratory Findings CBC and BMP: 11/17/16 01:11 11/17/16 01:11 ABG ABG pH 7.34 pH Units (7.32-7.45) 11/17/16 03:30 ABG pCO2 59 mmHg (35-45) H 11/17/16 03:30 ABG pO2 59 mmHg (85-104) L 11/17/16 03:30 ABG O2 Saturation 88 % (95-98) L 11/17/16 03:30 PT/INR, D-dimer PT 14.8 Seconds (9.4-12.1) H 11/17/16 01:11 Abnormal lab findings: Abnormal lab results RBC 4.13 M/mcL (4.19-5.50) L 11/17/16 01:11 Hgb 11.6 g/dL (12.9-16.9) L 11/17/16 01:11 MCHC 29.4 g/dL (31.6-35.5) L 11/17/16 01:11 RDW 24.2 % (11.5-14.5) H 11/17/16 01:11 Plt Count 80 K/mcL (140-400) L 11/17/16 01:11 Nucleated RBCs/100 WBC 1.9 /100 WBC (0) H 11/17/16 01:11 Platelet Estimate Decreased (Normal) L 11/17/16 01:11 Immature Plt Fraction 10.1 % (1.1-6.1) H 11/17/16 01:11 Polychromasia 1+ (Not Present) A 11/17/16 01:11 Basophilic Stippling 1+ (Not Present) A 11/16/16 16:49 Anisocytosis 2+ (Not Present) A 11/17/16 01:11 Microcytosis Present (Not Present) A 11/16/16 16:49 Macrocytosis Present (Not Present) A 11/16/16 16:49 PT 14.8 Seconds (9.4-12.1) H 11/17/16 01:11 APTT 38.4 Seconds (26.0-36.0) H 11/16/16 16:49 ABG pCO2 59 mmHg (35-45) H 11/17/16 03:30 ABG pO2 59 mmHg (85-104) L 11/17/16 03:30 ABG HCO3 31.8 mEQ/L (21-27) H 11/17/16 03:30 ABG Total CO2 33.6 mEq/L (20-26) H 11/17/16 03:30 ABG O2 Saturation 88 % (95-98) L 11/17/16 03:30 ABG Base Excess 4.4 mEq/L (-2.0 to 3.0) H 11/17/16 03:30 BUN 27 mg/dL (8-26) H 11/17/16 01:11 Creatinine 6.82 mg/dL (0.72-1.25) H 11/17/16 01:11 Est GFR ( Amer) 11 (> 60) L 11/17/16 01:11 Est GFR (Non-Af Amer) 9 (> 60) L 11/17/16 01:11 BUN/Creatinine Ratio 4 (6-26) L 11/17/16 01:11 Glucose 102 mg/dL (70-99) H 11/17/16 01:11 POC Glucose 91 (58-89) H 11/17/16 11:15 Phosphorus 5.0 mg/dL (2.3-4.7) H 11/17/16 01:11 Alkaline Phosphatase 487 Units/L (38-126) H 11/17/16 01:11 Troponin I 0.05 ng/mL (0-0.03) H* 11/16/16 16:49 B-Natriuretic Peptide 553 pg/mL (0-100) H 11/16/16 16:49 Albumin 2.8 g/dL (3.5-5.0) L 11/17/16 01:11 Albumin/Globulin Ratio 0.8 (1.1-2.2) L 11/17/16 01:11 - Clinical Findings Intake & Output: Intake & Output 11/17/16 11/17/16 11/17/16 07:59 15:59 23:59 Intake Total 46 / 46 329 / 329 Output Total 250 / 250 0 / 0 Balance -204 / -204 329 / 329 - Attending Attestation I examined this patient and my medical decision-making was reviewed with the SPECTROGRAPHIC ANALYST/PA/Advanced Practice Nurse/Resident Physician. I agree with the documented findings, disposition and treatment plan as described except to the extent set forth below. Patient seen and examined. Labs, radiology, chart personally reviewed. Agree with resident's history and physical, assessment, plan with following comments: CHAMBER WORKER: Patient follows commands, Pulmonary: Acceptable oxygenation and ventilation. Patient was extubated successfully and monitor in the ICU for about 24 hours. Cardiovascular: stable GI: Nutrition per dietary and GI prophylaxis per routine Heme: DVT prophylaxis per routine ID: Continue antibiotics and plan to de-escalation Renal; hemodialysis per Nephrology Endorcine: blood glucose is monitored Lines: all lines checked and no evidence of infections Skin: skin care to prevent pressure ulcers per nursing routine care
[2016-11-17] MEDS: Budesonide/Formoterol 160/4.5 MDI IH SCH ×2 (07:32→22:16)
[2016-11-17] MEDS: Pantoprazole 40 MG VIAL IVPB SCH (08:04)
[2016-11-17] MEDS: *HR* Amiodarone 200 MG TABLET GTUBE SCH ×2 (08:05→20:41)
[2016-11-17] MEDS: Chlorhexidine Rinse 15 ML MOUTHWASH MM SCH ×2 (08:05→20:41)
[2016-11-17] MEDS: Nicotine 14 MG PATCH.TD24 TD SCH (08:05)
[2016-11-17] MEDS: Calcium Acetate 667 MG CAPSULE GTUBE SCH ×3 (08:32→17:35)
[2016-11-17] MEDS ORDERED: *HR* Dextrose 50 % in Water (Syg) 50 ML SYRINGE IVP PRN (09:52)
[2016-11-17] MEDS ORDERED: D5% in Water 1,000 ML IVC PRN (09:52)
[2016-11-17] MEDS ORDERED: Dextrose Gel 15 GM PO PRN ×2 (09:52)
--- NOTE | 2016-11-17 11:26 | Nephrology Consult Note ---
Date of Encounter: 11/17/16 Time of Encounter: 10:30 Assessment and Plan (1) End stage renal disease Current Visit: No Status: Acute Mental status changes/encephalopathy most likely related to hypercapnia. No volume overload on exam. Dialyzed yesterday, K 3.6. HD tomorrow keeping [facility] schedule. History of Present Illness - Reason for Consult end stage renal disease - History of Present Illness Mr. Hatch is a 45 year old with ESRD who dialyzes at [facility] on MWF. Last dialysis yesterday when found to be hypersomnolent at end of HD and was transferred to [facility] via EMS. Other PMH- arthritis, cardiomyopathy, CHF, COPD, Afib, diabetes, dialysis, GERD, hyperlipidemia, hypertension, osteoporosis., vascular surgery. At time of consult patient is intubated FiO2 .35, peep of 5 and sedated. Information obtained from prior records. On arrival to ER received Narcan without results. He was intubated for airway management. CXR showed stable cardiomegaly. Head CT no acute process. He was admitted to the ICU with mental status changes most likely related to hypercapnia, pH 7.19, PCO2 of 80. Past Med Surg Social Fam HX - Past Medical History Medical history: arthritis, cardiomyopathy, CHF, COPD, diabetes, dialysis, GERD , hyperlipidemia, hypertension, osteoporosis, renal disease, other Psychiatric history: anxiety, depression, other - Past Surgical History Surgical History: herniorrhaphy, vascular surgery, other - Social History Smoking Status: Current every day smoker Smokeless Tobacco Status: No Alcohol use: none, unknown Drug use: marijuana, other - Family History Father Living Status: Hx Family Cardiac Disorders: No Hx Family Respiratory Disorders: No Hx Family Cancer: No Hx Family GI Disorders: No Hx Family Endocrine Disorder: No Hx Family Neuromuscular Disorders: No Hx Family Neurologic Disorders: No Hx Family HEENT Disorders: No Hx Family Autoimmune Disorders: No Mother Adopted: No Living Status: Still Living Hx Family Cardiac Disorders: Yes Hx Family Endocrine Disorder: Yes Medications and Allergies Insulin Glargine,Hum.rec.anlog [Lantus Solostar] 30 unit SQ BID #0 01/07/15 [ History] [place] Oil/[place]-3 Fatty Acids [Fish Oil 500 mg Softgel] 1 cap PO DAILY #0 [History] Carvedilol [Coreg] 12.5 mg PO BIDWM 01/24/16 [History] Duloxetine HCl [Cymbalta] 60 mg PO DAILY 01/24/16 [History] Renal Vitamin [Renal Caps Softgel] 1 mg PO DAILY 01/24/16 [History] Ammonium Lactate 1 appl TP BID PRN 09/02/16 [History] Cinacalcet HCl [Sensipar] 120 mg PO DAILY 09/02/16 [History] hydrALAZINE [HydrALAZINE] 25 mg PO BID 09/02/16 [History] Amiodarone [Cordarone] 200 mg PO BID tablet 09/19/16 [Rx] Docusate [Colace] 100 mg PO BID PRN #0 capsule 09/19/16 [Rx] Ipratropium Neb [Atrovent Neb] 0.5 mg IH TIDR inhsol 09/19/16 [Rx] Levalbuterol Neb [Xopenex Neb] 0.63 mg IH TIDR vial.neb 09/19/16 [Rx] Tetrahydrozoline [Visine] 1 drop BOTH EYES QID PRN 09/29/16 [History] Warfarin [Coumadin] 5 mg PO Q48H 09/29/16 [History] Warfarin [Coumadin] 7.5 mg PO Q48H 09/29/16 [History] Atorvastatin [Lipitor] 40 mg PO HS 11/16/16 [History] Budesonide/Formoterol 160/4.5 [Symbicort 160/4.5] 2 puff IH BIDR PRN 11/16/16 [ History] Calcium Acetate [Phos-LO] 2,668 mg PO TIDWM 11/16/16 [History] Ethyl Chloride 1 unit TP MOWEFR 11/16/16 [History] Nicotine Patch [Nicoderm] 14 mg TD DAILY 11/16/16 [History] Omeprazole [PriLOSEC] 20 mg PO DAILY 11/16/16 [History] Oxygen 2 l NS AD 11/16/16 [History] Pregabalin [Lyrica] 100 mg PO TID 11/16/16 [History] Allergies hydrocodone [From [place]] Allergy (Intermediate, Verified 09/29/16 16:59) Hives Review of Systems ROS unobtainable: due to endotracheal tube, due to mental status Exam - Vital Signs Vital signs: Initial Vital Signs Temp Pulse Resp BP Pulse Ox 96.4 F L 135 10 82/66 91 11/16/16 16:18 11/16/16 16:18 11/16/16 16:18 11/16/16 16:18 11/16/16 16:18 Vital Signs - Last 8 Hours Temp Pulse Resp BP Pulse Ox 11/17/16 11:13 14 83/61 98 11/17/16 10:25 126 15 79/64 98 11/17/16 09:30 133 15 93/62 96 11/17/16 08:20 123 14 93/70 95 11/17/16 08:01 98.4 F 11/17/16 07:37 125 14 99/62 11/17/16 07:32 15 99/62 97 11/17/16 06:31 14 96 11/17/16 06:00 114 14 95/63 96 11/17/16 05:06 98.7 F 11/17/16 04:03 118 11/17/16 04:01 14 86/53 93 11/17/16 04:00 114 14 86/53 95 Intake and Output 11/16/16 11/17/16 11/17/16 23:59 07:59 15:59 Intake Total 115 / 1115 46 / 46 Output Total 250 / 250 0 / 0 Balance 115 / 1115 -204 / -204 0 / 0 Intake: IV Fluids 115 / 115 46 / 46 PRECEDEX 400 mcg In 100 115 / 115 46 / 46 ml @ 0.5 MCG/KG/HR 15.45 mls/hr IVC .Q6H29M [facility] Rx #:[id number] Output: Catheter 250 / 250 0 / 0 Other: Weight 123.6 kg Blood Glucose* 101 88 - General Appearance General appearance: well-developed, well-nourished, appears started age, obese EENT: mucous membranes moist Neck: no JVD, no carotid bruit Respiratory: course breath sounds Cardiology: edema, irregular rhythm Additional Comments: trace pitting edema of LE. Gastrointestinal: hypoactive bowel sounds, distended Integumentary: warm and dry Results - Lab Results 11/17/16 01:11 11/17/16 01:11 Most recent lab results ABG pH 7.34 pH Units (7.32-7.45) 11/17/16 03:30 ABG pCO2 59 mmHg (35-45) H 11/17/16 03:30 ABG pO2 59 mmHg (85-104) L 11/17/16 03:30 ABG HCO3 31.8 mEQ/L (21-27) H 11/17/16 03:30 ABG O2 Saturation 88 % (95-98) L 11/17/16 03:30 Calcium 9.1 mg/dL (8.6-10.8) 11/17/16 01:11 Phosphorus 5.0 mg/dL (2.3-4.7) H 11/17/16 01:11 Magnesium 1.9 mg/dL (1.6-2.6) 11/17/16 01:11 Consult Discharge Plan - Plan Referrals: NO,PCP [Primary Care Provider] -
[2016-11-17] MEDS: Insulin LISPRO 300 UNITS/3 ML VIAL SQ SCH ×2 (12:38→17:41)
--- NOTE | 2016-11-17 16:18 | Electrocardiograph Report ---
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
[2016-11-17] MEDS ORDERED: *HR* OxyCODONE/APAP 5/325 TABLET PO ONE (16:52)
[2016-11-17] MEDS ORDERED: *HR* Warfarin 7.5 MG TABLET PO ONE (18:00)
[2016-11-17] MEDS ORDERED: Warfarin perPT PO PRN (18:00)
[2016-11-17] MEDS ORDERED: Benzonatate 100 MG CAPSULE PO PRN (23:57)
[2016-11-18] MEDS: Lacri-Lube 3.5 GM TUBE BOTH EYES SCH ×3 (00:21→08:29)
[2016-11-18] MEDS: Dexmedetomidine HCl 400 MCG/100 ML MLS IVC SCH (00:30)
[2016-11-18] MEDS: Insulin LISPRO 300 UNITS/3 ML VIAL SQ SCH ×2 (00:35→06:23)
[2016-11-18] MEDS: Ipratropium Neb 0.5 MG NEBULIZER IH SCH ×3 (02:22→18:15)
[2016-11-18] MEDS: Levalbuterol Neb 0.63 MG/3 ML IH SCH (02:22)
[2016-11-18] MEDS: Acetaminophen 325 MG TABLET PO PRN ×2 (03:00→08:35)
[2016-11-18 04:20] LABS: INR 1.4; Prothrombin Time 15.6 Seconds (9.4-12.1)
[2016-11-18] MEDS: *HR* Heparin 5,000 UNIT/ML VIAL SQ SCH (06:22)
[2016-11-18 06:28] LABS: Basophils % 0.2 %; Eosinophils # 0.1 K/mcL (0.0-0.6); Eosinophils % 0.9 %; Hematocrit 37.3 % (37.5-50.1); Hemoglobin 11.1 g/dL (12.9-16.9); Lymphocytes % 12.6 %; Mean Corpuscular HGB Conc 29.8 g/dL (31.6-35.5); Mean Corpuscular Hemoglobin 28.2 pg (28.0-33.3); Mean Corpuscular Volume 94.9 fL (83.0-100.0); Monocytes # 0.9 K/mcL (0.0-1.3); Monocytes % 11.4 %; Neutrophils # 5.9 K/mcL (1.6-8.9); Nucleated Red Blood Cells 0.4 /100 WBC (0); Red Blood Count 3.93 M/mcL (4.19-5.50); Red Cell Distribution Width 23.7 % (11.5-14.5); Segmented Neutrophils % 73.9 %
[2016-11-18 06:29] LABS: Platelet Count 90 K/mcL (140-400)
[2016-11-18 06:48] LABS: Anisocytosis 2+ (Not Present); Basophilic Stippling 1+ (Not Present); Platelet Estimate Decreased (Normal); Polychromasia 1+ (Not Present)
[2016-11-18 07:27] LABS: Albumin 2.7 g/dL (3.5-5.0); Albumin/Globulin Ratio 0.8 (1.1-2.2); Bilirubin,Direct 0.4 mg/dL (0.0-0.5); Bilirubin,Indirect 0.4 mg/dL (0.0-1.2); Bilirubin,Total 0.8 mg/dL (0.2-1.2); Calcium 7.2 mg/dL (8.6-10.8); Globulin 3.4 g/dL (2.4-3.5); Magnesium 2.1 mg/dL (1.6-2.6); Phosphorous 7.1 mg/dL (2.3-4.7); Total Protein 6.1 g/dL (6.0-8.3)
--- NOTE | 2016-11-18 08:11 | Pulmonology Progress Note ---
<Ruma Hurtado - Last Filed: 11/18/16 08:59> Date of Encounter: 11/18/16 Time of Encounter: 08:11 Assessment and Plan (1) End stage renal disease Current Visit: Yes Status: Acute Patient presented with acute mental changes after dialysis 2 days ago. He was subsequently intubated. We extubated him yesterday. He has been off the ventilator overnight and has been doing well. He is easily arousable. He gets quickly agitated with nursing staff. He is complaining of chronic back pain yesterday and was given a Percocet however he chewed this in front of the nurse. He was then subsequently given acetaminophen after this which seemed to help. We will continue him on acetaminophen for his low back pain. He is not chronically on opiates. We will encourage movement up and about to help decrease his length of stay in bed. I believe this will help with his back pain as well as prevent DVTs. Patient was found to be hypotensive this morning however he maintained a map greater than 60. The blood pressure cuff was readjusted and the patient was awoken he was found to be normotensive. We will discharge patient to the floor today. He will receive hemodialysis on here. He is threatening to leave AMA if he is not given pain medication. We will encourage him to ambulate to help with his low back pain and provide Tylenol. Plan: Continue home meds. Inclusive of Coumadin Holding Coreg today due to hypotension overnight. Continue sliding scale insulin. Encourage movement. Dialysis today. Acetaminophen for pain. Transfer to the floor (2) Systolic heart failure, chronic Current Visit: No Status: Acute Chronic (3) COPD (chronic obstructive pulmonary disease) Current Visit: Yes Status: Chronic Chronic Qualifiers: COPD type: unspecified COPD Qualified Code(s): J44.9 - Chronic obstructive pulmonary disease, unspecified (4) Tobacco abuse Current Visit: No Status: Chronic Chronic Plan: Patient on a nicotine patch. We will encourage smoking cessation. (5) Obesity (BMI 30-39.9) Current Visit: No Status: Chronic Chronic plan as above (6) Acute on chronic respiratory failure with hypoxia and hypercapnia Current Visit: Yes Status: Acute Resolved at this time (7) Acute metabolic encephalopathy Current Visit: Yes Status: Acute Resolved (8) Atrial fibrillation Current Visit: Yes Status: Acute Chronic plan as above Qualifiers: Atrial fibrillation type: paroxysmal Qualified Code(s): I48.0 - Paroxysmal atrial fibrillation (9) Diabetes mellitus type 2, uncontrolled, with complications Current Visit: Yes Status: Chronic Plan as above Qualifiers: Diabetes mellitus joint terminal attack controller insulin use: with joint terminal attack controller use Qualified Code( s): E11.8 - Type 2 diabetes mellitus with unspecified complications; E11.65 - Type 2 diabetes mellitus with hyperglycemia; Z79.4 - rat exterminator (current) use of insulin (10) DVT prophylaxis Current Visit: Yes Status: Acute Plan as above Subjective Interval history: No events overnight. Patient complains of a chronic low back pain this morning. We gave him a Percocet last night and he chewed this in front of the nurse. We will give him Tylenol this morning. Patient is no longer requiring ICU admitted so we will move him to the floor. He is scheduled for dialysis today. He is easily arousable in bed but asleep when I walk in. He was mildly hypotensive overnight however maintain a map greater than 60. His blood pressure cuff was readjusted and he was found to be normotensive. Patient is stable for transfer to the floor today. Objective PUL Vital signs: Last Vital Signs Temp 98 F 11/18/16 08:04 Pulse 122 11/18/16 06:00 Resp 20 11/18/16 06:00 BP 78/62 11/18/16 06:00 Pulse Ox 95 11/18/16 06:00 General appearance: no acute distress Eyes: nonicteric ENT: oropharynx moist Neck: supple Effort: normal Auscultation: bilateral: clear Cardiovascular: irregular rhythm Gastrointestinal: normoactive bowel sounds, soft, non-tender, non-distended Integumentary: normal Extremities: no cyanosis, no clubbing, pink and warm, pulses normal, edema ( Trace edema to his lower extremities as well as his hands.) Musculoskeletal: no deformities Gait: normal gait, normal posture normal mental status, non-focal exam, pupils equal and round mood appropriate, affect normal Results - Laboratory Findings CBC and BMP: 11/18/16 06:13 11/18/16 06:13 ABG ABG pH 7.34 pH Units (7.32-7.45) 11/17/16 03:30 ABG pCO2 59 mmHg (35-45) H 11/17/16 03:30 ABG pO2 59 mmHg (85-104) L 11/17/16 03:30 ABG O2 Saturation 88 % (95-98) L 11/17/16 03:30 PT/INR, D-dimer PT 15.6 Seconds (9.4-12.1) H 11/18/16 03:57 Abnormal lab findings: Abnormal lab results RBC 3.93 M/mcL (4.19-5.50) L 11/18/16 06:13 Hgb 11.1 g/dL (12.9-16.9) L 11/18/16 06:13 Hct 37.3 % (37.5-50.1) L 11/18/16 06:13 MCHC 29.8 g/dL (31.6-35.5) L 11/18/16 06:13 RDW 23.7 % (11.5-14.5) H 11/18/16 06:13 Plt Count 90 K/mcL (140-400) L 11/18/16 06:13 Nucleated RBCs/100 WBC 0.4 /100 WBC (0) H 11/18/16 06:13 Platelet Estimate Decreased (Normal) L 11/18/16 06:13 Immature Plt Fraction 13.0 % (1.1-6.1) H 11/18/16 06:13 Polychromasia 1+ (Not Present) A 11/18/16 06:13 Basophilic Stippling 1+ (Not Present) A 11/18/16 06:13 Anisocytosis 2+ (Not Present) A 11/18/16 06:13 Microcytosis Present (Not Present) A 11/16/16 16:49 Macrocytosis Present (Not Present) A 11/16/16 16:49 PT 15.6 Seconds (9.4-12.1) H 11/18/16 03:57 APTT 38.4 Seconds (26.0-36.0) H 11/16/16 16:49 ABG pCO2 59 mmHg (35-45) H 11/17/16 03:30 ABG pO2 59 mmHg (85-104) L 11/17/16 03:30 ABG HCO3 31.8 mEQ/L (21-27) H 11/17/16 03:30 ABG Total CO2 33.6 mEq/L (20-26) H 11/17/16 03:30 ABG O2 Saturation 88 % (95-98) L 11/17/16 03:30 ABG Base Excess 4.4 mEq/L (-2.0 to 3.0) H 11/17/16 03:30 Sodium 134 mEq/L (136-145) L 11/18/16 06:13 Potassium 5.0 mEq/L (3.5-4.5) H D 11/18/16 06:13 BUN 49 mg/dL (8-26) H D 11/18/16 06:13 Creatinine 9.26 mg/dL (0.72-1.25) H 11/18/16 06:13 Est GFR ( Amer) 7 (> 60) L 11/18/16 06:13 Est GFR (Non-Af Amer) 6 (> 60) L 11/18/16 06:13 BUN/Creatinine Ratio 5 (6-26) L 11/18/16 06:13 Glucose 192 mg/dL (70-99) H 11/18/16 06:13 POC Glucose 165 (58-89) H 11/18/16 03:54 Calcium 7.2 mg/dL (8.6-10.8) L D 11/18/16 06:13 Phosphorus 7.1 mg/dL (2.3-4.7) H 11/18/16 06:13 Alkaline Phosphatase 454 Units/L (38-126) H 11/18/16 06:13 Troponin I 0.05 ng/mL (0-0.03) H* 11/16/16 16:49 B-Natriuretic Peptide 553 pg/mL (0-100) H 11/16/16 16:49 Albumin 2.7 g/dL (3.5-5.0) L 11/18/16 06:13 Albumin/Globulin Ratio 0.8 (1.1-2.2) L 11/18/16 06:13 - Diagnostic Findings Additional studies: Head CT 11/16/16 16:26 IMPRESSION: No acute intracranial abnormality. D/ / Rudolph Thakkar MD / Rudolph Thakkar MD Interpreting Provider: Rudolph Thakkar MD X-Ray 11/16/16 19:57 IMPRESSION: Orogastric tube with tip likely in the gastric pylorus and proximal side-port at the gastric antrum. D/ / 11/16/2016 20:37:29 Cisco Aponte MD / dequan Interpreting Provider: Cisco Aponte MD Chest X-Ray 11/16/16 20:14 IMPRESSION: Orogastric tube extends below the diaphragm into the abdomen. Please review results from [facility] for additional information. D/ / Pop Carvalho MD / Pop Carvalho MD Interpreting Provider: Pop Carvalho MD - Clinical Findings Intake & Output: Intake & Output 11/17/16 11/18/16 11/18/16 23:59 07:59 15:59 Intake Total 100 / 100 570 / 570 Balance 100 / 100 570 / 570 Weight 125.191 kg Consult Discharge Plan - Plan Referrals: NO,PCP [Non-Partnered Physician] - <Dariel Greenfield - Last Filed: 11/18/16 12:11> Date of Encounter: 11/18/16 Objective PUL Vital signs: Last Vital Signs Temp 98 F 11/18/16 08:04 Pulse 126 11/18/16 08:00 Resp 20 11/18/16 10:49 BP 65/48 11/18/16 08:00 Pulse Ox 98 11/18/16 10:49 Results - Laboratory Findings CBC and BMP: 11/18/16 06:13 11/18/16 06:13 ABG ABG pH 7.34 pH Units (7.32-7.45) 11/17/16 03:30 ABG pCO2 59 mmHg (35-45) H 11/17/16 03:30 ABG pO2 59 mmHg (85-104) L 11/17/16 03:30 ABG O2 Saturation 88 % (95-98) L 11/17/16 03:30 PT/INR, D-dimer PT 15.6 Seconds (9.4-12.1) H 11/18/16 03:57 Abnormal lab findings: Abnormal lab results RBC 3.93 M/mcL (4.19-5.50) L 11/18/16 06:13 Hgb 11.1 g/dL (12.9-16.9) L 11/18/16 06:13 Hct 37.3 % (37.5-50.1) L 11/18/16 06:13 MCHC 29.8 g/dL (31.6-35.5) L 11/18/16 06:13 RDW 23.7 % (11.5-14.5) H 11/18/16 06:13 Plt Count 90 K/mcL (140-400) L 11/18/16 06:13 Nucleated RBCs/100 WBC 0.4 /100 WBC (0) H 11/18/16 06:13 Platelet Estimate Decreased (Normal) L 11/18/16 06:13 Immature Plt Fraction 13.0 % (1.1-6.1) H 11/18/16 06:13 Polychromasia 1+ (Not Present) A 11/18/16 06:13 Basophilic Stippling 1+ (Not Present) A 11/18/16 06:13 Anisocytosis 2+ (Not Present) A 11/18/16 06:13 Microcytosis Present (Not Present) A 11/16/16 16:49 Macrocytosis Present (Not Present) A 11/16/16 16:49 PT 15.6 Seconds (9.4-12.1) H 11/18/16 03:57 APTT 38.4 Seconds (26.0-36.0) H 11/16/16 16:49 ABG pCO2 59 mmHg (35-45) H 11/17/16 03:30 ABG pO2 59 mmHg (85-104) L 11/17/16 03:30 ABG HCO3 31.8 mEQ/L (21-27) H 11/17/16 03:30 ABG Total CO2 33.6 mEq/L (20-26) H 11/17/16 03:30 ABG O2 Saturation 88 % (95-98) L 11/17/16 03:30 ABG Base Excess 4.4 mEq/L (-2.0 to 3.0) H 11/17/16 03:30 Sodium 134 mEq/L (136-145) L 11/18/16 06:13 Potassium 5.0 mEq/L (3.5-4.5) H D 11/18/16 06:13 BUN 49 mg/dL (8-26) H D 11/18/16 06:13 Creatinine 9.26 mg/dL (0.72-1.25) H 11/18/16 06:13 Est GFR ( Amer) 7 (> 60) L 11/18/16 06:13 Est GFR (Non-Af Amer) 6 (> 60) L 11/18/16 06:13 BUN/Creatinine Ratio 5 (6-26) L 11/18/16 06:13 Glucose 192 mg/dL (70-99) H 11/18/16 06:13 POC Glucose 127 (58-89) H 11/18/16 11:21 Calcium 7.2 mg/dL (8.6-10.8) L D 11/18/16 06:13 Phosphorus 7.1 mg/dL (2.3-4.7) H 11/18/16 06:13 Alkaline Phosphatase 454 Units/L (38-126) H 11/18/16 06:13 Troponin I 0.05 ng/mL (0-0.03) H* 11/16/16 16:49 B-Natriuretic Peptide 553 pg/mL (0-100) H 11/16/16 16:49 Albumin 2.7 g/dL (3.5-5.0) L 11/18/16 06:13 Albumin/Globulin Ratio 0.8 (1.1-2.2) L 11/18/16 06:13 - Clinical Findings Intake & Output: Intake & Output 11/17/16 11/18/16 11/18/16 23:59 07:59 15:59 Intake Total 100 / 100 570 / 570 420 / 420 Balance 100 / 100 570 / 570 420 / 420 Weight 125.191 kg - Attending Attestation I examined this patient and my medical decision-making was reviewed with the GEOTECHNICAL DEPARTMENT MANAGER/PA/Advanced Practice Nurse/Resident Physician. I agree with the documented findings, disposition and treatment plan as described except to the extent set forth below. Patient seen and examined. Labs, radiology, chart personally reviewed. Agree with resident's history and physical, assessment, plan with following comments: END WORKER: Patient follows commands, Pulmonary: Acceptable oxygenation and ventilation. Patient was extubated successfully and stable Cardiovascular: stable Overall patient is doing good and he has chronic pain on pain medication. Patient will be transferred to the floor and hemodialysis per Nephrology
[2016-11-18] MEDS: Chlorhexidine Rinse 15 ML MOUTHWASH MM SCH (08:29)
[2016-11-18] MEDS: Nicotine 14 MG PATCH.TD24 TD SCH (08:34)
[2016-11-18] MEDS: Pantoprazole 40 MG VIAL IVPB SCH (08:34)
[2016-11-18] MEDS: Calcium Acetate 667 MG CAPSULE GTUBE SCH ×3 (08:35→16:26)
[2016-11-18] MEDS: *HR* Amiodarone 200 MG TABLET GTUBE SCH (08:36)
[2016-11-18] MEDS ORDERED: 0.9 % Sodium Chloride 250 ML IVC PRN (08:46)
--- NOTE | 2016-11-18 08:46 | Nephrology Progress Note ---
Date of Encounter: 11/18/16 Time of Encounter: 08:44 - Assessment and Plan (1) End stage renal disease on dialysis Current Visit: No Status: Chronic Patient will undergo dialysis today. I believe the cause of his recurrent problems are drug abuse and untreated sleep apnea resulting in mental status changes and hypercapnic respiratory failure. Patient says he has been taking Lyrica 300 mg daily he has been getting from his primary care physician. (2) Respiratory acidosis Current Visit: No Status: Acute (3) Altered mental status Current Visit: No Status: Acute Qualifiers: Altered mental status type: unspecified Qualified Code(s): R41.82 - Altered mental status, unspecified Subjective Interval history: Patient is extubated. He is complaining of back pain. He is requesting Lyrica as well as narcotic analgesics. Blood pressure remains on the low side. Objective - Vital Signs Vital signs: Vital Signs Temp Pulse Resp BP Pulse Ox 11/18/16 08:04 98 F 11/18/16 06:00 122 20 78/62 95 11/18/16 04:20 98 F 11/18/16 04:00 130 20 106/76 96 11/18/16 03:00 117 20 68/55 96 11/18/16 02:22 18 88/52 100 11/18/16 02:00 124 20 88/52 100 11/18/16 01:00 113 20 106/77 98 11/18/16 00:25 98.4 F 11/18/16 00:00 133 20 73/46 100 11/17/16 23:00 133 20 73/46 99 11/17/16 22:16 18 95 11/17/16 22:00 116 18 74/48 99 11/17/16 21:00 126 20 76/62 99 11/17/16 20:32 98.4 F 11/17/16 20:00 134 20 77/52 94 11/17/16 19:00 139 20 72/50 92 11/17/16 18:30 122 20 88/47 96 11/17/16 17:30 128 21 89/58 96 11/17/16 16:30 122 20 101/90 97 11/17/16 15:50 25 94 11/17/16 15:41 99.1 F 11/17/16 15:30 128 18 82/66 96 11/17/16 15:11 25 84/59 92 11/17/16 14:30 118 17 77/58 96 11/17/16 13:37 14 77/57 95 11/17/16 13:25 121 16 77/57 97 11/17/16 12:30 115 15 81/60 96 11/17/16 11:34 98.5 F 11/17/16 11:30 117 16 84/64 97 11/17/16 11:13 14 83/61 98 11/17/16 10:25 126 15 79/64 98 11/17/16 09:30 133 15 93/62 96 Intake and Output 11/17/16 11/18/16 11/18/16 23:59 07:59 15:59 Intake Total 100 / 100 570 / 570 420 / 420 Balance 100 / 100 570 / 570 420 / 420 Intake: IV Fluids 100 / 100 90 / 90 PRECEDEX 400 mcg In 100 100 / 100 90 / 90 ml @ 0.5 MCG/KG/HR 15.45 mls/hr IVC .[id number] [facility] Rx #:[id number] Oral 480 / 480 420 / 420 Other: Meal cheerios Breakfast Percent of Meal Consumed 100% 50% Weight 125.191 kg Blood Glucose* 165 Patient Weight 11/18/16 23:59 Weight 125.191 kg - General Appearance Exam: Patient is alert and oriented. He is in no acute distress. Lungs diminished breath sounds. Heart irregular rate and rhythm. Abdomen is obese but nontender. There is mild lower extremity swelling. There is a functioning AV fistula in the left arm. - Lab 11/18/16 06:13 11/18/16 06:13 Most recent lab results ABG pH 7.34 pH Units (7.32-7.45) 11/17/16 03:30 ABG pCO2 59 mmHg (35-45) H 11/17/16 03:30 ABG pO2 59 mmHg (85-104) L 11/17/16 03:30 ABG HCO3 31.8 mEQ/L (21-27) H 11/17/16 03:30 ABG O2 Saturation 88 % (95-98) L 11/17/16 03:30 Calcium 7.2 mg/dL (8.6-10.8) L D 11/18/16 06:13 Phosphorus 7.1 mg/dL (2.3-4.7) H 11/18/16 06:13 Magnesium 2.1 mg/dL (1.6-2.6) 11/18/16 06:13 Consult Discharge Plan - Plan Referrals: NO,PCP [Non-Partnered Physician] -
[2016-11-18] MEDS ORDERED: D5% in Water 1,000 ML IVC PRN (10:14)
[2016-11-18] MEDS ORDERED: *HR* Dextrose 50 % in Water (Syg) 50 ML SYRINGE IVP PRN (10:14)
[2016-11-18] MEDS ORDERED: Acetaminophen 325 MG TABLET PO PRN (10:14)
[2016-11-18] MEDS ORDERED: Warfarin perPT PO PRN (10:14)
[2016-11-18] MEDS ORDERED: Benzonatate 100 MG CAPSULE PO PRN (10:14)
[2016-11-18] MEDS ORDERED: Dextrose Gel 15 GM PO PRN ×2 (10:14)
[2016-11-18] MEDS ORDERED: 0.9 % Sodium Chloride 2,000 ML ONE (10:49)
[2016-11-18 11:40] LABS: Hepatitis B Surface Antibody 0.21 mIU/mL; Hepatitis B Surface Antigen Nonreactive (Nonreactive)
[2016-11-18] MEDS ORDERED: Insulin LISPRO 300 UNITS/3 ML VIAL SQ SCH (12:00)
[2016-11-18] MEDS ORDERED: *HR* Heparin 5,000 UNIT/ML VIAL SQ SCH (18:00)
[2016-11-18] MEDS ORDERED: *HR* Warfarin 7.5 MG TABLET PO ONE (18:00)
[2016-11-18 19:24] VITALS: BP 109/48
--- NOTE | 2016-11-18 20:43 | Discharge Summary ---
<Hiram Bonilla - Last Filed: 11/18/16 20:40> Date of Encounter: 11/18/16 Time of Encounter: 20:40 - Discharge Diagnosis (1) Encephalopathy acute Priority: Primary Status: Resolved (2) Acute and chronic respiratory failure with hypercapnia Priority: Primary Status: Resolved (3) End stage renal disease on dialysis Priority: Secondary Status: Chronic (4) COPD (chronic obstructive pulmonary disease) Priority: Secondary Status: Chronic Qualifiers: COPD type: unspecified COPD Qualified Code(s): J44.9 - Chronic obstructive pulmonary disease, unspecified (5) Atrial fibrillation Priority: Secondary Status: Chronic Qualifiers: Atrial fibrillation type: chronic Qualified Code(s): I48.2 - Chronic atrial fibrillation (6) Type 2 diabetes mellitus Priority: Secondary Status: Chronic Qualifiers: Diabetes mellitus complication status: with kidney complications Diabetes mellitus complication detail: with chronic kidney disease Diabetes mellitus [facility] insulin use: with intermediate card tender use Chronic kidney disease stage: on chronic dialysis Qualified Code(s): E11.22 - Type 2 diabetes mellitus with diabetic chronic kidney disease; N18.6 - End stage renal disease; Z79.4 - director long term care (current) use of insulin; Z99.2 - Dependence on renal dialysis (7) Systolic heart failure Priority: Secondary Status: Chronic Qualifiers: Heart failure chronicity: chronic Qualified Code(s): I50.22 - Chronic systolic (congestive) heart failure (8) DVT prophylaxis Priority: Secondary Status: Inactive - Discharge Medications Home Medications: Insulin Glargine,Hum.rec.anlog [Lantus Solostar] 30 unit SQ BID #0 01/07/15 [ History] [place] Oil/[place]-3 Fatty Acids [Fish Oil 500 mg Softgel] 1 cap PO DAILY #0 [History] Carvedilol [Coreg] 12.5 mg PO BIDWM 01/24/16 [History] Duloxetine HCl [Cymbalta] 60 mg PO DAILY 01/24/16 [History] Renal Vitamin [Renal Caps Softgel] 1 mg PO DAILY 01/24/16 [History] Ammonium Lactate 1 appl TP BID PRN 09/02/16 [History] Cinacalcet HCl [Sensipar] 120 mg PO DAILY 09/02/16 [History] hydrALAZINE [HydrALAZINE] 25 mg PO BID 09/02/16 [History] Amiodarone [Cordarone] 200 mg PO BID tablet 09/19/16 [Rx] Docusate [Colace] 100 mg PO BID PRN #0 capsule 09/19/16 [Rx] Ipratropium Neb [Atrovent Neb] 0.5 mg IH TIDR inhsol 09/19/16 [Rx] Levalbuterol Neb [Xopenex Neb] 0.63 mg IH TIDR vial.neb 09/19/16 [Rx] Tetrahydrozoline [Visine] 1 drop BOTH EYES QID PRN 09/29/16 [History] Warfarin [Coumadin] 5 mg PO Q48H 09/29/16 [History] Warfarin [Coumadin] 7.5 mg PO Q48H 09/29/16 [History] Atorvastatin [Lipitor] 40 mg PO HS 11/16/16 [History] Budesonide/Formoterol 160/4.5 [Symbicort 160/4.5] 2 puff IH BIDR PRN 11/16/16 [ History] Calcium Acetate [Phos-LO] 2,668 mg PO TIDWM 11/16/16 [History] Ethyl Chloride 1 unit TP MOWEFR 11/16/16 [History] Nicotine Patch [Nicoderm] 14 mg TD DAILY 11/16/16 [History] Omeprazole [PriLOSEC] 20 mg PO DAILY 11/16/16 [History] Oxygen 2 l NS AD 11/16/16 [History] Pregabalin [Lyrica] 100 mg PO TID 11/16/16 [History] Allergies/Adverse Reactions: Allergies hydrocodone [From [place]] Allergy (Intermediate, Verified 09/29/16 16:59) Hives lanolin [From [employer] Adverse Reaction (Verified 11/18/16 10:51) Swelling of the Eye CAUSES IRRITATION/REDNESS TO EYE. PATIENT REQUESTS NOT TO HAVE WHEN HE IS INTUBATED. mineral oil [From [employer] [facility] Adverse Reaction (Verified 11/18/16 10:50) Swelling of the Eye petrolatum,white [From [employer] [facility] Adverse Reaction (Verified 11/18/16 10 :50) Swelling of the Eye Date of admission: 11/16/16 18:49 Primary care physician: Arthur Pozo MD Consults: 11/16/16 19:58 Consult to Nephrology [CONS] Routine Consulting Provider: [facility] LOVELL Reason for Consult: ESRD Call Completed: Yes Discharging clinician: Hiram Bonilla Anticipated date of discharge: 11/18/16 - Patient Status Disposition: Left Against Medical Advice Condition: Undetermined - Discharge Instructions Follow Up With: NO,PCP [Non-Partnered Physician] - Interval History: Patient seen and examined at bedside. Patient is adamant that he wants to leave. I discussed risks of leaving including worsening clinical condition, respiratory failure, and and the patient verbalized understanding of these risks and would like to leave AGAINST MEDICAL ADVICE. Hospital course: Mr. Htach is a 45 year old male with history of end-stage renal disease on dialysis, atrial fibrillation, ZAINAB presented with altered mental status. Patient was intubated for airway protection. Patient remained on the ventilator overnight after admission and his mental status improved and he was extubated the next day. Patient was monitored in the ICU due to some mild hypotension. Patient remained stable clinically. The plan was to transfer to the floor today for continued evaluation however the patient is adamant that he wanted to leave and is leaving AGAINST MEDICAL ADVICE. The patient was advised of the risks of leaving AGAINST MEDICAL ADVICE and was offered further treatment but declined. I strongly advised the patient to return to the emergency department if he has any new or worsening symptoms. Patient verbalized understanding of the risks of leaving AGAINST MEDICAL ADVICE. - Time Spent with Patient Total time spent providing and/or coordinating discharge services: - Constitutional Vitals: Temp Pulse Resp BP Pulse Ox 98.7 F 135 24 109/48 100 11/18/16 19:17 11/18/16 16:00 11/18/16 19:17 11/18/16 19:17 11/18/16 16:00 General appearance: Present: A&O X 3, no acute distress - Respiratory Respiratory exam: Present: CTAB. Absent: rales, rhonchi, wheezes - Cardiovascular Cardiovascular exam: Present: irregular rhythm. Absent: gallop, rubs, systolic murmur, tachycardia - GI/Abdominal GI/Abdominal exam: Present: normal bowel sounds, soft. Absent: distended, tenderness - Neurological Exam Neurological exam: Present: alert, CN II-XII intact, oriented X3, no focal deficits <Dariel Greenfield - Last Filed: 11/19/16 09:32> Date of Encounter: 11/19/16 Date of admission: 11/16/16 18:49 Primary care physician: Arthur Pozo MD Consults: 11/16/16 19:58 Consult to Nephrology [CONS] Routine Consulting Provider: [facility] LILIYA Reason for Consult: ESRD Call Completed: Yes Hospital course: Mr. Hatch is a 45 year old male - Time Spent with Patient Total time spent providing and/or coordinating discharge services: - Constitutional Vitals: Temp Pulse Resp BP Pulse Ox 98.7 F 135 24 109/48 100 11/18/16 19:17 11/18/16 16:00 11/18/16 19:17 11/18/16 19:17 11/18/16 16:00 - Attending Attestation I examined this patient and my medical decision-making was reviewed with the WELFARE INVESTIGATOR/PA/Advanced Practice Nurse/Resident Physician. I agree with the documented findings, disposition and treatment plan as described except to the extent set forth below. Patient wanted to leave AMA and he was told to stay in the hospital and there is high potential he will be back in the hospital and there is risk of .
[2016-11-18] MEDS ORDERED: *HR* Amiodarone 200 MG TABLET GTUBE SCH (21:00)
[2016-11-18] MEDS ORDERED: Budesonide/Formoterol 160/4.5 MDI IH SCH (22:00)
[2016-11-19] MEDS ORDERED: Nicotine 14 MG PATCH.TD24 TD SCH (09:00)
[2016-11-19 15:30] LABS: Amphetamines NEGATIVE ng/mL (Cutoff 30); Barbiturates NEGATIVE ng/mL (Cutoff 75); Benzodiazepines NEGATIVE ng/mL (Cutoff 75); Cocaine NEGATIVE ng/mL (Cutoff 30); Methadone NEGATIVE ng/mL (Cutoff 40); Methamphetamines NEGATIVE ng/mL (Cutoff 30); Opiates NEGATIVE ng/mL (Cutoff 30); Phencyclidine NEGATIVE ng/mL (Cutoff 15)
== END 2016-11-18 19:30 | disposition left against medical advice (07) | DRG 70 ==
LOC: EMEROO 16:16 → ICNU 18:49
PROVIDERS: ADMIT Family Medicine; ATTEND Family Medicine

== ENCOUNTER 2016-11-19 03:02 | Inpatient (IN) ==
[2016-11-19] MEDS ORDERED: 0.9 % Sodium Chloride 500 ML ONE (04:13)
[2016-11-19] MEDS ORDERED: *HR* FentaNYL (PF) 100 MCG/2 ML VIAL ONE (04:43)
[2016-11-19] MEDS ORDERED: Aspirin 81 MG TAB.CHEW ONE (04:44)
--- NOTE | 2016-11-19 06:33 | Emergency Department Note ---
Disposition Clinical Impression: Hypoxia CHF exacerbation Qualifiers: Congestive heart failure type: systolic Qualified Code(s): I50.23 - Acute on chronic systolic (congestive) heart failure Disposition: Admitted As Inpatient Condition: Good General Adult HPI - General Stated complaint: general Time Seen by Provider: 11/19/16 05:25 Nursing Notes Reviewed: Yes Vital Signs Reviewed: Yes - Related Data Home Medications Medication Instructions Recorded Confirmed Insulin Glargine,Hum.rec.anlog 30 unit SQ BID #0 01/07/15 11/19/16 [Lantus Solostar] [place] Oil/[place]-3 Fatty Acids 1 cap PO DAILY #0 01/07/15 11/19/16 [Fish Oil 500 mg Softgel] Carvedilol [Coreg] 12.5 mg PO BIDWM 01/24/16 11/19/16 Duloxetine HCl [Cymbalta] 60 mg PO DAILY 01/24/16 11/19/16 Renal Vitamin [Renal Caps Softgel] 1 mg PO DAILY 01/24/16 11/19/16 Ammonium Lactate 1 appl TP BID PRN 09/02/16 11/19/16 Cinacalcet HCl [Sensipar] 120 mg PO DAILY 09/02/16 11/19/16 hydrALAZINE [HydrALAZINE] 25 mg PO BID 09/02/16 11/19/16 Tetrahydrozoline [Visine] 1 drop BOTH EYES QID PRN 09/29/16 11/19/16 Warfarin [Coumadin] 5 mg PO Q48H 09/29/16 11/19/16 Warfarin [Coumadin] 7.5 mg PO Q48H 09/29/16 11/19/16 Atorvastatin [Lipitor] 40 mg PO HS 11/16/16 11/19/16 Budesonide/Formoterol 160/4.5 2 puff IH BIDR PRN 11/16/16 11/19/16 [Symbicort 160/4.5] Calcium Acetate [Phos-LO] 2,668 mg PO TIDWM 11/16/16 11/19/16 Ethyl Chloride 1 unit TP MOWEFR 11/16/16 11/19/16 Nicotine Patch [Nicoderm] 14 mg TD DAILY 11/16/16 11/19/16 Omeprazole [PriLOSEC] 20 mg PO DAILY 11/16/16 11/19/16 Oxygen 2 l NS AD 11/16/16 11/19/16 Pregabalin [Lyrica] 100 mg PO TID 11/16/16 11/19/16 Previous Rx's Medication Instructions Recorded Amiodarone [Cordarone] 200 mg PO BID tablet 09/19/16 Docusate [Colace] 100 mg PO BID PRN #0 capsule 09/19/16 Ipratropium Neb [Atrovent Neb] 0.5 mg IH TIDR inhsol 09/19/16 Levalbuterol Neb [Xopenex Neb] 0.63 mg IH TIDR vial.neb 09/19/16 Allergies Allergy/AdvReac Type Severity Reaction Status Date / Time hydrocodone [From [place]] Allergy Intermediate Hives Verified 09/29/16 16:59 lanolin AdvReac Swelling Verified 11/18/16 10:51 [From [facility] mineral oil AdvReac Swelling Verified 11/18/16 10:50 [From [facility] petrolatum,white AdvReac Swelling Verified 11/18/16 10:50 [From [facility] Past Medical History - Past Medical History Medical history: Reports: arthritis, cardiomyopathy, CHF, COPD, diabetes, dialysis, GERD, hyperlipidemia, hypertension, osteoporosis, renal disease, other Surgical history: Reports: herniorrhaphy, vascular surgery, other Psychiatric history: Reports: anxiety, depression, other - Social History Smoking Status: Current every day smoker Smokeless Tobacco Status: No Alcohol use: Reports: none, unknown Drug use: Reports: marijuana, other Course Vital Signs Respiratory Rate 23 11/19/16 03:17 O2 Sat by Pulse Oximetry 88 11/19/16 03:17 Temperature 98.0 F 12/03/16 12:41 Pulse Rate 92 12/03/16 15:30 Respiratory Rate 20 12/03/16 15:30 Blood Pressure 158/100 12/03/16 15:30 O2 Sat by Pulse Oximetry 96 12/03/16 15:30 Oxygen Delivery Oxygen Delivery Nasal Cannula Medical Decision Making - Lab Data Result diagrams: 12/03/16 03:45 12/03/16 03:45 Lab Results 11/19/16 11/19/16 11/19/16 Range/Units 03:43 03:43 03:43 WBC 8.4 (4.3-11.1) K/mcL RBC 3.77 L (4.19-5.50) M/mcL Hgb 10.6 L (12.9-16.9) g/dL Hct 35.7 L (37.5-50.1) % MCV 94.7 (83.0-100.0) fL MCH 28.1 (28.0-33.3) pg MCHC 29.7 L (31.6-35.5) g/dL RDW 23.4 H (11.5-14.5) % Plt Count 82 L (140-400) K/mcL MPV 11.2 (9.4-12.4) fL Immature Gran % 0.5 (0-4) % Seg Neutrophils % 76.3 % Lymphocytes % 11.4 % Monocytes % 10.9 % Eosinophils % 0.7 % Basophils % 0.2 % Neutrophils # 6.4 (1.6-8.9) K/mcL Lymphocytes # 1.0 (0.6-4.6) K/mcL Monocytes # 0.9 (0.0-1.3) K/mcL Eosinophils # 0.1 (0.0-0.6) K/mcL Basophils # 0.0 (0.0-0.2) K/mcL Platelet Estimate Slight Decrease L (Normal) Polychromasia 1+ A (Not Present) Anisocytosis 1+ A (Not Present) Microcytosis Present A (Not Present) Macrocytosis Present A (Not Present) PT 17.2 H (9.4-12.1) Seconds INR 1.6 APTT 35.4 (26.0-36.0) Seconds Sodium (136-145) mEq/L Potassium (3.5-4.5) mEq/L Chloride (98-109) mEq/L Carbon Dioxide (19-29) mEq/L BUN (8-26) mg/dL Creatinine (0.72-1.25) mg/dL Est GFR ( Amer) (> 60) Est GFR (Non-Af Amer) (> 60) BUN/Creatinine Ratio (6-26) Glucose (70-99) mg/dL Calculated Osmolality (280-300) Lactic Acid (0.5-2.2) mmol/L Calcium (8.6-10.8) mg/dL Troponin I 0.16 H* (0-0.03) ng/mL B-Natriuretic Peptide (0-100) pg/mL 11/19/16 11/19/16 11/19/16 Range/Units 03:43 03:43 07:25 WBC (4.3-11.1) K/mcL RBC (4.19-5.50) M/mcL Hgb (12.9-16.9) g/dL Hct (37.5-50.1) % MCV (83.0-100.0) fL MCH (28.0-33.3) pg MCHC (31.6-35.5) g/dL RDW (11.5-14.5) % Plt Count (140-400) K/mcL MPV (9.4-12.4) fL Immature Gran % (0-4) % Seg Neutrophils % % Lymphocytes % % Monocytes % % Eosinophils % % Basophils % % Neutrophils # (1.6-8.9) K/mcL Lymphocytes # (0.6-4.6) K/mcL Monocytes # (0.0-1.3) K/mcL Eosinophils # (0.0-0.6) K/mcL Basophils # (0.0-0.2) K/mcL Platelet Estimate (Normal) Polychromasia (Not Present) Anisocytosis (Not Present) Microcytosis (Not Present) Macrocytosis (Not Present) PT (9.4-12.1) Seconds INR APTT (26.0-36.0) Seconds Sodium 139 (136-145) mEq/L Potassium 4.5 (3.5-4.5) mEq/L Chloride 98 (98-109) mEq/L Carbon Dioxide 27 (19-29) mEq/L BUN 34 H D (8-26) mg/dL Creatinine 6.61 H (0.72-1.25) mg/dL Est GFR ( Amer) 11 L (> 60) Est GFR (Non-Af Amer) 9 L (> 60) BUN/Creatinine Ratio 5 L (6-26) Glucose 156 H (70-99) mg/dL Calculated Osmolality 299 (280-300) Lactic Acid 1.2 (0.5-2.2) mmol/L Calcium 7.1 L (8.6-10.8) mg/dL Troponin I (0-0.03) ng/mL B-Natriuretic Peptide 844 H (0-100) pg/mL Attestation Statement - Attestation Attestation: I examined this patient and my medical decision-making was reviewed with the PLUMBING HARDWARE ASSEMBLER/PA/Advanced Practice Nurse/Resident Physician. I agree with the documented findings, disposition and treatment plan as described except to the extent set forth below. This is a male patient who left the hospital AGAINST MEDICAL ADVICE arrives severe congestive heart failure as well as noncompliance with several treatment modalities. He does have end-stage renal disease. Since leaving the hospital he developed increasing cough. Arrives with nonrebreather mask in place, complaints of dyspnea. Mild hypotension and tachycardia. He is violently coughing. Plan to obtain chest x-ray, basic labs. His respiratory status stabilized with bronchodilators. Final disposition pending results of imaging and laboratory analyses.
[2016-11-19 06:34] LABS: Basophils % 0.2 %; Eosinophils # 0.1 K/mcL (0.0-0.6); Eosinophils % 0.7 %; Hematocrit 35.7 % (37.5-50.1); Hemoglobin 10.6 g/dL (12.9-16.9); Immature Granulocytes % 0.5 % (0-4); Lymphocytes % 11.4 %; Mean Corpuscular HGB Conc 29.7 g/dL (31.6-35.5); Mean Corpuscular Hemoglobin 28.1 pg (28.0-33.3); Mean Corpuscular Volume 94.7 fL (83.0-100.0); Mean Platelet Volume 11.2 fL (9.4-12.4); Monocytes # 0.9 K/mcL (0.0-1.3); Monocytes % 10.9 %; Neutrophils # 6.4 K/mcL (1.6-8.9); Platelet Count 82 K/mcL (140-400); Red Blood Count 3.77 M/mcL (4.19-5.50); Red Cell Distribution Width 23.4 % (11.5-14.5); Segmented Neutrophils % 76.3 %
[2016-11-19 06:35] LABS: Anisocytosis 1+ (Not Present); Macrocytosis Present (Not Present); Microcytosis Present (Not Present); Platelet Estimate Slight Decrease (Normal); Polychromasia 1+ (Not Present)
[2016-11-19 06:36] LABS: Activated Partial Thrombo Time 35.4 Seconds (26.0-36.0); INR 1.6; Prothrombin Time 17.2 Seconds (9.4-12.1)
[2016-11-19 06:38] LABS: Calcium 7.1 mg/dL (8.6-10.8); Potassium 4.5 mEq/L (3.5-4.5)
[2016-11-19] MEDS ORDERED: Levofloxacin 750 MG/150 ML 750 MG/150 ML BAG IVPB ONE (07:10)
[2016-11-19] MEDS ORDERED: Piperacillin/Tazobactam 3.375 GM in D5% in Water (Mini-Bag+) 100 ML IVPB ONE (07:10)
[2016-11-19] MEDS ORDERED: Vancomycin 1,000 MG in D5% in Water 250 ML IVPB ONE (07:10)
--- NOTE | 2016-11-19 07:18 | Emergency Department Note ---
Disposition Clinical Impression: Hypoxia CHF exacerbation Qualifiers: Congestive heart failure type: systolic Qualified Code(s): I50.23 - Acute on chronic systolic (congestive) heart failure Disposition: Admitted As Inpatient Condition: Good Time of Disposition: 09:10 General Adult HPI - General Chief complaint: ED Shortness of Breath/Dyspnea Stated complaint: JESSICA Time Seen by Provider: 11/19/16 05:25 Nursing Notes Reviewed: Yes Vital Signs Reviewed: Yes - History of Present Illness HPI Narrative: Patient was signed out to me from nighttime physician Dr. Waddell and Dr. Garcia , please see their note for further details. - Related Data Home Medications Medication Instructions Recorded Confirmed Insulin Glargine,Hum.rec.anlog 30 unit SQ BID #0 01/07/15 11/19/16 [Lantus Solostar] [place] Oil/[place]-3 Fatty Acids 1 cap PO DAILY #0 01/07/15 11/19/16 [Fish Oil 500 mg Softgel] Carvedilol [Coreg] 12.5 mg PO BIDWM 01/24/16 11/19/16 Duloxetine HCl [Cymbalta] 60 mg PO DAILY 01/24/16 11/19/16 Renal Vitamin [Renal Caps Softgel] 1 mg PO DAILY 01/24/16 11/19/16 Ammonium Lactate 1 appl TP BID PRN 09/02/16 11/19/16 Cinacalcet HCl [Sensipar] 120 mg PO DAILY 09/02/16 11/19/16 hydrALAZINE [HydrALAZINE] 25 mg PO BID 09/02/16 11/19/16 Tetrahydrozoline [Visine] 1 drop BOTH EYES QID PRN 09/29/16 11/19/16 Warfarin [Coumadin] 5 mg PO Q48H 09/29/16 11/19/16 Warfarin [Coumadin] 7.5 mg PO Q48H 09/29/16 11/19/16 Atorvastatin [Lipitor] 40 mg PO HS 11/16/16 11/19/16 Budesonide/Formoterol 160/4.5 2 puff IH BIDR PRN 11/16/16 11/19/16 [Symbicort 160/4.5] Calcium Acetate [Phos-LO] 2,668 mg PO TIDWM 11/16/16 11/19/16 Ethyl Chloride 1 unit TP MOWEFR 11/16/16 11/19/16 Nicotine Patch [Nicoderm] 14 mg TD DAILY 11/16/16 11/19/16 Omeprazole [PriLOSEC] 20 mg PO DAILY 11/16/16 11/19/16 Oxygen 2 l NS AD 11/16/16 11/19/16 Pregabalin [Lyrica] 100 mg PO TID 11/16/16 11/19/16 Previous Rx's Medication Instructions Recorded Amiodarone [Cordarone] 200 mg PO BID tablet 09/19/16 Docusate [Colace] 100 mg PO BID PRN #0 capsule 09/19/16 Ipratropium Neb [Atrovent Neb] 0.5 mg IH TIDR inhsol 09/19/16 Levalbuterol Neb [Xopenex Neb] 0.63 mg IH TIDR vial.neb 09/19/16 Allergies Allergy/AdvReac Type Severity Reaction Status Date / Time hydrocodone [From [place]] Allergy Intermediate Hives Verified 09/29/16 16:59 lanolin AdvReac Swelling Verified 11/18/16 10:51 [From [facility] the Eye mineral oil AdvReac Swelling Verified 11/18/16 10:50 [From [facility] the Eye petrolatum,white AdvReac Swelling Verified 11/18/16 10:50 [From [facility] the Eye Past Medical History - Past Medical History Medical history: Reports: arthritis, cardiomyopathy, CHF, COPD, diabetes, dialysis, GERD, hyperlipidemia, hypertension, osteoporosis, renal disease, other Surgical history: Reports: herniorrhaphy, vascular surgery, other Psychiatric history: Reports: anxiety, depression, other - Social History Smoking Status: Current every day smoker Smokeless Tobacco Status: No Alcohol use: Reports: none, unknown Drug use: Reports: marijuana, other Course Course Narrative: Patient was signed out to me from nighttime physician Dr. Waddell and Dr. Garcia. This patient is a 45-year-old male on dialysis MWF, history of CHF presenting with difficulty in breathing. He reportedly left against medical advice last night from the ICU. He presented hypoxic on NRB 88%. He continues to be short of breath with persistent cough. He has a AV fistula on the left forearm with palpable thrill and audible bruit. Workup was initiated. A lactate and empiric triple antibiotic was started. He has a history of multiple intubations in the past. Disposition is for admission. His supervisor aircraft cleaning is Dr. Jacobs. His potassium is 4.5. Creatinine is 6. His troponin is elevated 0.16. This is higher than prior. EKG reveals sinus tachycardia. No acute ischemic changes. Suspect likely from renal disease but aspirin was given to him and will need admission. BNP is 844. Review of his chest x-ray reveals increased vascular congestion and possible opacity of the right lower lobe. He will need admission for CHF exacerbation, hypoxia, and possible HCAP. Laboratory Tests 11/19/16 11/19/16 11/19/16 03:43 03:43 03:43 WBC 8.4 RBC 3.77 L Hgb 10.6 L Hct 35.7 L MCV 94.7 MCH 28.1 MCHC 29.7 L RDW 23.4 H Plt Count 82 L MPV 11.2 Immature Gran % 0.5 Seg Neutrophils % 76.3 Lymphocytes % 11.4 Monocytes % 10.9 Eosinophils % 0.7 Basophils % 0.2 Neutrophils # 6.4 Lymphocytes # 1.0 Monocytes # 0.9 Eosinophils # 0.1 Basophils # 0.0 Platelet Estimate Slight Decrease L Polychromasia 1+ A Anisocytosis 1+ A Microcytosis Present A Macrocytosis Present A PT 17.2 H INR 1.6 APTT 35.4 Sodium Potassium Chloride Carbon Dioxide BUN Creatinine Est GFR ( Amer) Est GFR (Non-Af Amer) BUN/Creatinine Ratio Glucose Calculated Osmolality Calcium Troponin I 0.16 H* B-Natriuretic Peptide 11/19/16 11/19/16 03:43 03:43 WBC RBC Hgb Hct MCV MCH MCHC RDW Plt Count MPV Immature Gran % Seg Neutrophils % Lymphocytes % Monocytes % Eosinophils % Basophils % Neutrophils # Lymphocytes # Monocytes # Eosinophils # Basophils # Platelet Estimate Polychromasia Anisocytosis Microcytosis Macrocytosis PT INR APTT Sodium 139 Potassium 4.5 Chloride 98 Carbon Dioxide 27 BUN 34 H D Creatinine 6.61 H Est GFR ( Amer) 11 L Est GFR (Non-Af Amer) 9 L BUN/Creatinine Ratio 5 L Glucose 156 H Calculated Osmolality 299 Calcium 7.1 L Troponin I B-Natriuretic Peptide 844 H - Reevaluation(s) Reevaluation #1: Review the chest x-ray report no findings of pneumonia. I do believe this is more of a CHF exacerbation. Currently on 3L holding 93%. He continues to be sinus tachycardia, due to fluid balance will give his home dose of Coreg 12.5 mg. patient has threatened to leave against medical advice again. Discuss with him and he is in agreement with staying. Patient has ED made renal diet meal. Patient has been accepted for hospital admission. Time: 09:42 - Consultations Consultation #1: Spoke with on-call hospitalist lei Gooden to admit for hypoxia, CHF exacerbation. No further orders at this time Time: 09:41 Vital Signs Respiratory Rate 23 11/19/16 03:17 O2 Sat by Pulse Oximetry 88 11/19/16 03:17 Temperature 97.9 F 11/19/16 12:24 Pulse Rate 147 11/19/16 12:24 Respiratory Rate 18 11/19/16 12:24 Blood Pressure 102/65 11/19/16 12:24 O2 Sat by Pulse Oximetry 100 11/19/16 12:24 Oxygen Delivery Oxygen Delivery Nasal Cannula Medical Decision Making - Medical Records Medical records reviewed: Yes I reviewed the patient's medical records. - Lab Data Lab results reviewed: Yes I reviewed the patient's lab results. Result diagrams: 11/19/16 03:43 11/19/16 03:43 Lab Results 11/19/16 11/19/16 11/19/16 Range/Units 03:43 03:43 03:43 WBC 8.4 (4.3-11.1) K/mcL RBC 3.77 L (4.19-5.50) M/mcL Hgb 10.6 L (12.9-16.9) g/dL Hct 35.7 L (37.5-50.1) % MCV 94.7 (83.0-100.0) fL MCH 28.1 (28.0-33.3) pg MCHC 29.7 L (31.6-35.5) g/dL RDW 23.4 H (11.5-14.5) % Plt Count 82 L (140-400) K/mcL MPV 11.2 (9.4-12.4) fL Immature Gran % 0.5 (0-4) % Seg Neutrophils % 76.3 % Lymphocytes % 11.4 % Monocytes % 10.9 % Eosinophils % 0.7 % Basophils % 0.2 % Neutrophils # 6.4 (1.6-8.9) K/mcL Lymphocytes # 1.0 (0.6-4.6) K/mcL Monocytes # 0.9 (0.0-1.3) K/mcL Eosinophils # 0.1 (0.0-0.6) K/mcL Basophils # 0.0 (0.0-0.2) K/mcL Platelet Estimate Slight Decrease L (Normal) Polychromasia 1+ A (Not Present) Anisocytosis 1+ A (Not Present) Microcytosis Present A (Not Present) Macrocytosis Present A (Not Present) PT 17.2 H (9.4-12.1) Seconds INR 1.6 APTT 35.4 (26.0-36.0) Seconds Sodium (136-145) mEq/L Potassium (3.5-4.5) mEq/L Chloride (98-109) mEq/L Carbon Dioxide (19-29) mEq/L BUN (8-26) mg/dL Creatinine (0.72-1.25) mg/dL Est GFR ( Amer) (> 60) Est GFR (Non-Af Amer) (> 60) BUN/Creatinine Ratio (6-26) Glucose (70-99) mg/dL Calculated Osmolality (280-300) Lactic Acid (0.5-2.2) mmol/L Calcium (8.6-10.8) mg/dL Troponin I 0.16 H* (0-0.03) ng/mL B-Natriuretic Peptide (0-100) pg/mL 11/19/16 11/19/16 11/19/16 Range/Units 03:43 03:43 07:25 WBC (4.3-11.1) K/mcL RBC (4.19-5.50) M/mcL Hgb (12.9-16.9) g/dL Hct (37.5-50.1) % MCV (83.0-100.0) fL MCH (28.0-33.3) pg MCHC (31.6-35.5) g/dL RDW (11.5-14.5) % Plt Count (140-400) K/mcL MPV (9.4-12.4) fL Immature Gran % (0-4) % Seg Neutrophils % % Lymphocytes % % Monocytes % % Eosinophils % % Basophils % % Neutrophils # (1.6-8.9) K/mcL Lymphocytes # (0.6-4.6) K/mcL Monocytes # (0.0-1.3) K/mcL Eosinophils # (0.0-0.6) K/mcL Basophils # (0.0-0.2) K/mcL Platelet Estimate (Normal) Polychromasia (Not Present) Anisocytosis (Not Present) Microcytosis (Not Present) Macrocytosis (Not Present) PT (9.4-12.1) Seconds INR APTT (26.0-36.0) Seconds Sodium 139 (136-145) mEq/L Potassium 4.5 (3.5-4.5) mEq/L Chloride 98 (98-109) mEq/L Carbon Dioxide 27 (19-29) mEq/L BUN 34 H D (8-26) mg/dL Creatinine 6.61 H (0.72-1.25) mg/dL Est GFR ( Amer) 11 L (> 60) Est GFR (Non-Af Amer) 9 L (> 60) BUN/Creatinine Ratio 5 L (6-26) Glucose 156 H (70-99) mg/dL Calculated Osmolality 299 (280-300) Lactic Acid 1.2 (0.5-2.2) mmol/L Calcium 7.1 L (8.6-10.8) mg/dL Troponin I (0-0.03) ng/mL B-Natriuretic Peptide 844 H (0-100) pg/mL - Radiology Data Radiology results reviewed: Yes I reviewed the patient's radiology results. Chest X-Ray 11/19/16 00:00 IMPRESSION: Mild pulmonary edema suspected on a limited portable chest. D/ / 11/19/2016 07:25:10 Marcelino Mcmahan MD / Tiffanie Drake Interpreting Provider: Marcelino Mcmahan MD - EKG Data EKG #1 EKG attestation: Yes I reviewed and interpreted this EKG. EKG results narrative: EKG performed 318 sinus tachycardia 148 bpm, poor R-R wave progression, normal axis, there are no ST elevations or depressions, no T-wave inversions. Intervals are within normal limits OK interval 152 QRS 94 QT QTC 321 406. No acute ischemic changes.
--- NOTE | 2016-11-19 08:40 | Emergency Department Note ---
START Narrative - START START: I examined this patient and my medical decision-making was reviewed with the VOTATOR MACHINE OPERATOR/PA/Advanced Practice Nurse/Resident Physician. I agree with the documented findings, disposition and treatment plan as described except to the extent set forth below.
[2016-11-19] MEDS ORDERED: Budesonide/Formoterol 160/4.5 MDI IH PRN (11:16)
[2016-11-19] MEDS ORDERED: Naloxone 0.4 MG/ML INJ IVP PRN ×2 (11:29→14:00)
[2016-11-19] MEDS ORDERED: *HR* Warfarin 5 MG TABLET PO SCH (12:00)
[2016-11-19] MEDS ORDERED: *HR* Amiodarone 200 MG TABLET PO SCH (12:00)
[2016-11-19] MEDS ORDERED: *HR* Dextrose 50 % in Water (Syg) 50 ML SYRINGE IVP PRN (12:13)
[2016-11-19] MEDS ORDERED: Dextrose Gel 15 GM PO PRN ×2 (12:13)
[2016-11-19] MEDS ORDERED: D5% in Water 1,000 ML IVC PRN (12:13)
--- NOTE | 2016-11-19 12:18 | Internal Med History&Physical ---
Date of Encounter: 11/19/16 Time of Encounter: 11:00 Assessment and Plan (1) Acute and chronic respiratory failure with hypoxia Current visit: Yes Status: Acute 1 patient was recently admitted to this facility due to exacerbation of CHF he was on the ventilator and extubated yesterday. He left AMA yesterday evening at home he began to experience increasing shortness of breath and cough. He presented to the ER oxygen saturation is at that time was 88 and he was in mild respiratory distress. He was given bronchodilators which somewhat did improve his respiratory state. Patient has several factors that could be contributing to his respiratory failure, including COPD obstructive sleep apnea obesity cardiomyopathy CHF. X-ray did reveal some mild pulmonary edema. BNP was 892 which is worse it is been there is no leukocytosis. We will continue with oxygen titrating maintain SPO2 greater than 92% CPAP at night 2 we will consult nephrology for fluid management 3 cardiology has been consulted concerning tachycardia 4 we will continue with bronchodilators (2) Hypotension Current visit: No Status: Chronic 1 patient presents with tachycardia and hypertension he was dialyzed yesterday and tolerated well. It appears that he has been experiencing some hypotension in the past. We will attempt at rate control continue with amiodarone and Coreg at this time. 2 continuous cardiac monitoring 3 hold antihypertensives for now Qualifiers: Hypotension type: unspecified hypotension type Qualified Code(s): I95.9 - Hypotension, unspecified (3) Systolic heart failure, chronic Current visit: No Status: Chronic 1 patient has history of cardiomyopathy with EF of 20% he has mild pulmonary edema on his chest x-ray. He was dialyzed yesterday We will continue with dialysis per nephrology 2 fluid restrictions 1500 mL 3 monitor intake and output daily weights 4 low sodium diet (4) Tachycardia Current visit: No Status: Acute 1 patient presented with heart rate 120s to 140s in short this is atrial flutter. Continued with amiodarone as well as Coreg 2 consulted cardiology 3 continuous cardiac monitoring 4 monitor troponins (5) Atrial fibrillation Current visit: No Status: Chronic 1 we will continue with amiodarone and Coumadin. Pharmacy to dose-INR goal 2-3 Qualifiers: Atrial fibrillation type: chronic Qualified Code(s): I48.2 - Chronic atrial fibrillation (6) COPD (chronic obstructive pulmonary disease) Current visit: No Status: Chronic Continue with oxygen and bronchodilators Qualifiers: COPD type: unspecified COPD Qualified Code(s): J44.9 - Chronic obstructive pulmonary disease, unspecified (7) Diabetes mellitus Current visit: No Status: Chronic Accu-Cheks before meals at bedtime with sliding scale insulin as well as basal insulin Diabetic diet Qualifiers: Diabetes mellitus type: type 2 Diabetes mellitus complication status: with kidney complications Diabetes mellitus complication detail: with chronic kidney disease Diabetes mellitus fci 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 Richey consulted and will see patient 2 renal dose medications 3 monitor intake and output daily weights (9) Nonischemic cardiomyopathy Current visit: No Status: Chronic 1 cardiomyopathy related to hypertension presently patient is hypotensive we will hold antihypertensives for now 2 cardiology has been consulted patient supposed to follow-up for possible ICD placement (10) ZAINAB (obstructive sleep apnea) Current visit: No Status: Chronic Continue with CPAP (11) Tobacco abuse Current visit: No Status: Chronic Patient states he has not smoked in 1 month we will continue with nicotine patch (12) DVT prophylaxis Current visit: No Status: Acute Patient is on Coumadin Internal Medicine - H&P: HPI Chief complaint: SOB Admitted From: Emergency Dept Plans for Post Hospital Care: Home History of present illness: Mr. Hatch is a 45 year old male past medical history of end-stage renal disease on dialysis atrial fibrillation/atrial flutter hypertension diabetes obstructive sleep apnea. Patient was admitted to this facility and was in the ICU yesterday 11/18/2016 secondary to fluid overload he been intubated and was extubated yesterday. He signed out AMA at approximately 8/9 p.m. last night. Patient states he went home and at approximately 3 AM he began to experience increasing shortness of breath and coughing. He presented to the ER appeared to be in some respiratory distress, coughing. He was also mildly hypotensive and tachycardic EKG with heart rate of 120s. He was given bronchodilators as well as pain medications. Chest x-ray was obtained which showed mild pulmonary edema. His heart rate continued to increase up to 142 at times blood pressure down to 90 systolic. He was admitted for further workup and evaluation. Presently patient is sitting on side of bed he does not appear to be in any respiratory distress. His lung sounds with some scattered rhonchi. Heart sounds regular S1-S2 with no rubs clicks gallops murmurs noted. He does have + 2 pitting edema to lower extremities bilaterally abdomen soft and nontender. He has AV fistula in his left arm positive for thrill/bruit. He denies any fevers chills nausea vomiting chest pain or abdominal pain Heart rate continues to be elevated at 120s 130s blood pressure systolic 94 O2 saturation 96 on room air. I reviewed this case with Dr Maxwell who agrees with plan Past Med Surg Social Fam HX - Past Medical History Medical history: arthritis, cardiomyopathy, CHF, COPD, diabetes, dialysis, GERD , hyperlipidemia, hypertension, osteoporosis, renal disease, other Psychiatric history: anxiety, depression, other - Past Surgical History Surgical History: herniorrhaphy, vascular surgery, other - Social History Smoking Status: Current every day smoker Smokeless Tobacco Status: No Alcohol use: none, unknown Drug use: marijuana, other - Family History Father Living Status: Hx Family Cardiac Disorders: No Hx Family Respiratory Disorders: No Hx Family Cancer: No Hx Family GI Disorders: No Hx Family Endocrine Disorder: No Hx Family Neuromuscular Disorders: No Hx Family Neurologic Disorders: No Hx Family HEENT Disorders: No Hx Family Autoimmune Disorders: No Mother Adopted: No Living Status: Still Living Hx Family Cardiac Disorders: Yes Hx Family Endocrine Disorder: Yes Internal Medicine - H&P: Meds Insulin Glargine,Hum.rec.anlog [Lantus Solostar] 30 unit SQ BID #0 01/07/15 [ History] [place] Oil/[place]-3 Fatty Acids [Fish Oil 500 mg Softgel] 1 cap PO DAILY #0 [History] Carvedilol [Coreg] 12.5 mg PO BIDWM 01/24/16 [History] Duloxetine HCl [Cymbalta] 60 mg PO DAILY 01/24/16 [History] Renal Vitamin [Renal Caps Softgel] 1 mg PO DAILY 01/24/16 [History] Ammonium Lactate 1 appl TP BID PRN 09/02/16 [History] Cinacalcet HCl [Sensipar] 120 mg PO DAILY 09/02/16 [History] hydrALAZINE [HydrALAZINE] 25 mg PO BID 09/02/16 [History] Amiodarone [Cordarone] 200 mg PO BID tablet 09/19/16 [Rx] Docusate [Colace] 100 mg PO BID PRN #0 capsule 09/19/16 [Rx] Ipratropium Neb [Atrovent Neb] 0.5 mg IH TIDR inhsol 09/19/16 [Rx] Levalbuterol Neb [Xopenex Neb] 0.63 mg IH TIDR vial.neb 09/19/16 [Rx] Tetrahydrozoline [Visine] 1 drop BOTH EYES QID PRN 09/29/16 [History] Warfarin [Coumadin] 5 mg PO Q48H 09/29/16 [History] Warfarin [Coumadin] 7.5 mg PO Q48H 09/29/16 [History] Atorvastatin [Lipitor] 40 mg PO HS 11/16/16 [History] Budesonide/Formoterol 160/4.5 [Symbicort 160/4.5] 2 puff IH BIDR PRN 11/16/16 [ History] Calcium Acetate [Phos-LO] 2,668 mg PO TIDWM 11/16/16 [History] Ethyl Chloride 1 unit TP MOWEFR 11/16/16 [History] Nicotine Patch [Nicoderm] 14 mg TD DAILY 11/16/16 [History] Omeprazole [PriLOSEC] 20 mg PO DAILY 11/16/16 [History] Oxygen 2 l NS AD 11/16/16 [History] Pregabalin [Lyrica] 100 mg PO TID 11/16/16 [History] Allergies hydrocodone [From [place]] Allergy (Intermediate, Verified 09/29/16 16:59) Hives lanolin [From Lacri-Lube S.O.P.] Adverse Reaction (Verified 11/18/16 10:51) Swelling of the Eye CAUSES IRRITATION/REDNESS TO EYE. PATIENT REQUESTS NOT TO HAVE WHEN HE IS INTUBATED. mineral oil [From Lacri-Lube S.O.P.] Adverse Reaction (Verified 11/18/16 10:50) Swelling of the Eye petrolatum,white [From Lacri-Lube S.O.P.] Adverse Reaction (Verified 11/18/16 10 :50) Swelling of the Eye All Systems PM: A 10-system review of systems was performed and is negative for pertinent findings except as documented above in the HPI. - Constitutional Constitutional: no chills, no fever(s), no night sweats - EENT Eyes: no change in vision, no discharge, no pain, no photophobia Ears: no ear discharge, no ear pain, no tinnitus Nose, mouth and throat: no dysphagia, no nasal discharge, no neck pain, no sore throat - Cardiovascular Cardiovascular ROS IM: no chest pain, no diaphoresis, no dyspnea, no lightheadedness, no palpitations, no syncope - Respiratory Respiratory: cough, dyspnea - Gastrointestinal Gastrointestinal: no abdominal pain, no diarrhea, no hematemesis, no hematochezia, no melena, no nausea, no vomiting - Musculoskeletal Musculoskeletal ROS IM: no numbness, no tingling - Integumentary Integumentary IM: no rash, no unusual bruising - Neurological Neurological ROS: no confusion, no convulsions, no focal weakness, no numbness, no tingling, no tremor(s) - Hematologic/Lymphatic Hematologic/Lymphatic: no easy bruising - Constitutional Vitals: Pulse Resp BP Pulse Ox 142 18 94/61 95 11/19/16 09:27 11/19/16 10:49 11/19/16 10:49 11/19/16 09:27 General appearance: Present: A&O X 3, answers questions appropriately - Head Head exam: Present: atraumatic, normocephalic - Eye Eye exam: Present: PERRL, conjuntiva pink, sclera anicteric Pupils: Present: PERRL - Neck Neck exam general surgery: Present: supple, trachea midline. Absent: lymphadenopathy - Respiratory Respiratory exam: Present: rhonchi. Absent: accessory muscle use, rales, wheezes - Cardiovascular Cardiovascular exam: Present: RRR, +S1, +S2. Absent: diastolic murmur, gallop, rubs, systolic murmur - GI/Abdominal GI/Abdominal exam: Present: normal bowel sounds, soft, no peritoneal signs. Absent: distended, tenderness - Extremities Exam Extremities exam: Present: warm, radial pulses palpable and symetrical. Absent : calf tenderness, cyanotic, pedal edema Additional comments: AV fistula to left arm positive bruit and thrill - Neurological Exam Neurological exam: Present: CN II-XII intact, oriented X3, no focal deficits. Absent: pronater drift, facial droop, speech deficit - Skin Skin exam: Present: dry, intact Internal Med - H&P Results - Labs CBC & Chem 7: 11/19/16 03:43 11/19/16 03:43 - EKG Data Rate: tachycardia - Diagnostic Studies Other Images Additional comments: Chest X-Ray 11/19/16 00:00 IMPRESSION: Mild pulmonary edema suspected on a limited portable chest. D/ / 11/19/2016 07:25:10 Marcelino Mcmahan MD / Tiffanie Drake Interpreting Provider: Marcelino Mcmahan MD
[2016-11-19] MEDS: Pregabalin 50 MG CAPSULE PO SCH ×3 (12:39→21:32)
[2016-11-19] MEDS: Calcium Acetate 667 MG CAPSULE PO SCH ×2 (12:40→18:01)
--- NOTE | 2016-11-19 14:04 | Cardiology Consult Note ---
Date of Encounter: 11/19/16 Time of Encounter: 14:00 Assessment and Plan (1) Atrial flutter with rapid ventricular response Current Visit: No Status: Acute Atrial flutter with RVR HR in the 140's. Likely exacerbated by missing multiple doses of carvedilol. Home meds restarted. On carvedilol 6.25 mg BID and amiodarone 200 mg BID. Instructed to decrease amiodarone to 200 mg daily previously. Agree with decreasing to daily dosing. B/p marginally low. Change carvedilol to metoprolol this evening. Less antihypertensive effect with metoprolol. Change to toprol XL at discharge. TTE 09/03/16 showed reduced EF at 20%, moderate diastolic dysfunction, moderate RV hypokenesis, no pulmonary hypertension. There was a small pericardial effusion with no evidence of tamponade. EF mildly reduced from previous. EF 35% 01/2016. TSH 09/2015 was normal. Continue coumadin for anticoagulation. (2) CHF exacerbation Current Visit: Yes Status: Acute Acute on chronic systolic CHF. Known non-ischemic cardiomyoapthy. EF 20%. CXR shows mild pulmonary edema. ESRD on dialysis. Fluid management per nephrology. CHF education reviewed. Low sodium diet. Daily weights and strict I&O. WIll change carvedilol to toprol xl prior to d/c due to low blood pressure. Qualifiers: Congestive heart failure type: systolic Qualified Code(s): I50.23 - Acute on chronic systolic (congestive) heart failure Discussion w patient/family: The assessment and plan as outlined above was discussed with the patient and/or family members who expressed understanding and agreement. All questions were answered. Thank you for involving us in the care of your patient. Please call with any questions. History of Present Illness Consult date: 11/19/16 Requesting physician: Oxana Pedroza Consult reason: atrial flutter with RVR Chief complaint: SOB History of present illness: Mr. Hatch is a 45 year-old male with history of NICMP EF 20%, aflutter/ afib on coumadin, HTN, DMII, hyperlipidemia, DVT , ESRD on dialysis, non-compliance, and tobacco abuse. He presented with SOB. Hospitalized 24 hours ago (11/16/16-04/25) for respiratory distress and was intubated in the ICU. Once extubated he quickly left AMA from ICU. He presented back to the ER with SOB. Cardiology consulted for atrial flutter with RVR. Patient states he missed his medications yesterday and did not restart them until this afternoon. On my exam he c/o SOB. Previous cardiac reports: TTE 09/03/16 showed reduced EF at 20%, moderate diastolic dysfunction, moderate RV hypokenesis, no pulmonary hypertension. There was a small pericardial effusion with no evidence of tamponade. EF mildly reduced from previous. EF 35% 01/2016. LHC several years ago showed normal coronaries. Cardiomyopathy thought to be secondary to uncontrolled hypertension. He denies chest pain. Denies history of atrial flutter. He denies symptoms with his atrial flutter. Past Med Surg Social Fam HX - Past Medical History Medical history: arthritis, cardiomyopathy, CHF, COPD, diabetes, dialysis, GERD , hyperlipidemia, hypertension, osteoporosis, renal disease, other Psychiatric history: anxiety, depression, other - Past Surgical History Surgical History: herniorrhaphy, vascular surgery, other - Social History Smoking Status: Current every day smoker Smokeless Tobacco Status: No Alcohol use: none, unknown Drug use: marijuana, other - Family History Father Living Status: Hx Family Cardiac Disorders: No Hx Family Respiratory Disorders: No Hx Family Cancer: No Hx Family GI Disorders: No Hx Family Endocrine Disorder: No Hx Family Neuromuscular Disorders: No Hx Family Neurologic Disorders: No Hx Family HEENT Disorders: No Hx Family Autoimmune Disorders: No Mother Adopted: No Living Status: Still Living Hx Family Cardiac Disorders: Yes Hx Family Endocrine Disorder: Yes Medications and Allergies Insulin Glargine,Hum.rec.anlog [Lantus Solostar] 30 unit SQ BID #0 01/07/15 [ History] [place] Oil/[place]-3 Fatty Acids [Fish Oil 500 mg Softgel] 1 cap PO DAILY #0 [History] Carvedilol [Coreg] 12.5 mg PO BIDWM 01/24/16 [History] Duloxetine HCl [Cymbalta] 60 mg PO DAILY 01/24/16 [History] Renal Vitamin [Renal Caps Softgel] 1 mg PO DAILY 01/24/16 [History] Ammonium Lactate 1 appl TP BID PRN 09/02/16 [History] Cinacalcet HCl [Sensipar] 120 mg PO DAILY 09/02/16 [History] hydrALAZINE [HydrALAZINE] 25 mg PO BID 09/02/16 [History] Amiodarone [Cordarone] 200 mg PO BID tablet 09/19/16 [Rx] Docusate [Colace] 100 mg PO BID PRN #0 capsule 09/19/16 [Rx] Ipratropium Neb [Atrovent Neb] 0.5 mg IH TIDR inhsol 09/19/16 [Rx] Levalbuterol Neb [Xopenex Neb] 0.63 mg IH TIDR vial.neb 09/19/16 [Rx] Tetrahydrozoline [Visine] 1 drop BOTH EYES QID PRN 09/29/16 [History] Warfarin [Coumadin] 5 mg PO Q48H 09/29/16 [History] Warfarin [Coumadin] 7.5 mg PO Q48H 09/29/16 [History] Atorvastatin [Lipitor] 40 mg PO HS 11/16/16 [History] Budesonide/Formoterol 160/4.5 [Symbicort 160/4.5] 2 puff IH BIDR PRN 11/16/16 [ History] Calcium Acetate [Phos-LO] 2,668 mg PO TIDWM 11/16/16 [History] Ethyl Chloride 1 unit TP MOWEFR 11/16/16 [History] Nicotine Patch [Nicoderm] 14 mg TD DAILY 11/16/16 [History] Omeprazole [PriLOSEC] 20 mg PO DAILY 11/16/16 [History] Oxygen 2 l NS AD 11/16/16 [History] Pregabalin [Lyrica] 100 mg PO TID 11/16/16 [History] Allergies hydrocodone [From [place]] Allergy (Intermediate, Verified 09/29/16 16:59) Hives lanolin [From Lacri-Lube S.O.P.] Adverse Reaction (Verified 11/18/16 10:51) Swelling of the Eye CAUSES IRRITATION/REDNESS TO EYE. PATIENT REQUESTS NOT TO HAVE WHEN HE IS INTUBATED. mineral oil [From Lacri-Lube S.O.P.] Adverse Reaction (Verified 11/18/16 10:50) Swelling of the Eye petrolatum,white [From Lacri-Lube S.O.P.] Adverse Reaction (Verified 11/18/16 10 :50) Swelling of the Eye All Systems Review: A 10-system review of systems was performed and is negative for pertinent findings except as documented above in the HPI. Physical Examination Vital Signs, Last 4 Hours Temp Pulse Resp BP Pulse Ox 11/19/16 12:24 97.9 F 147 18 102/65 100 11/19/16 10:49 18 94/61 11/19/16 10:21 18 90/62 General: Conversant, No Apparent Distress HEENT: Atraumatic, Normocephaly, Mucus Membranes Moist Neck: No JVD, Normal carotid pulses Cardiac: Other (irregularly irregular) Lungs: Other (DIminished bases, respirations easy. ) Neuro: Alert and responsive, No focal deficits noted Abdomen: Soft, Non-Tender Skin: Other (BLE with discoloration, 2+ edema up to knees. ) Musculoskeletal: No Chest Wall Tenderness Extremities: Other Results 11/19/16 03:43 11/19/16 03:43 - Imaging and Cardiology Echo: report reviewed - EKG Interpretation EKG results cardiology: personally reviewed (atrial flutter with RVR, HR 147.) Consult Discharge Plan - Plan Referrals: Arthur Pozo MD [Primary Care Provider] -
--- NOTE | 2016-11-19 14:17 | Electrocardiograph Report ---
[address] [address] Test Date: 2016-11-19 Pat Name: Eduar Hatch Department: 102 Room: 2A Gender: M Doll Eye Setter: Nanette : 1970 Requested By: Damian Liz Order Number: [id number] Reading MD: Chalino Carson Measurements Intervals [place] Rate: 147 P: 125 TN: 155 QRS: 57 QRSD: 97 T: 45 QT: 328 QTc: 412 Interpretive Statements SINUS TACHYCARDIA, POSSIBLE ATRIAL FLUTTER LOW QRS VOLTAGE IN EXTREMITY LEADS ABNORMAL RHYTHM ECG Electronically Signed On 11-19-2016 14:15:44 EDT by Chalino Carson
[2016-11-19] MEDS: Acetaminophen 325 MG TABLET PO PRN (14:34)
[2016-11-19] MEDS: *HR* Amiodarone 200 MG TABLET PO SCH (14:34)
[2016-11-19] MEDS: *HR* Warfarin 7.5 MG TABLET PO SCH (16:09)
[2016-11-19] MEDS ORDERED: Warfarin perPT PO PRN (18:00)
[2016-11-19] MEDS: Insulin LISPRO 300 UNITS/3 ML VIAL SQ SCH ×2 (18:01→21:27)
[2016-11-19] MEDS: Levalbuterol Neb 0.63 MG/3 ML IH SCH (20:08)
[2016-11-19] MEDS: Insulin DETEMIR 100 UNIT/ML X5UNITS SQ SCH (21:33)
[2016-11-20] MEDS: Benzonatate 100 MG CAPSULE PO PRN ×2 (00:07→10:53)
[2016-11-20] MEDS: Levalbuterol Neb 0.63 MG/3 ML IH SCH ×3 (01:03→16:14)
[2016-11-20 01:21] LABS: Basophils % 0.5 %; Eosinophils # 0.1 K/mcL (0.0-0.6); Eosinophils % 1.3 %; Hematocrit 35.2 % (37.5-50.1); Hemoglobin 10.6 g/dL (12.9-16.9); Immature Granulocytes % 1.3 % (0-4); Immature Platelets 11.2 % (1.1-6.1); Lymphocytes # 0.9 K/mcL (0.6-4.6); Lymphocytes % 13.6 %; Mean Corpuscular HGB Conc 30.1 g/dL (31.6-35.5); Mean Corpuscular Hemoglobin 28.3 pg (28.0-33.3); Mean Corpuscular Volume 93.9 fL (83.0-100.0); Neutrophils # 4.3 K/mcL (1.6-8.9); Nucleated Red Blood Cells 0.5 /100 WBC (0); Red Blood Count 3.75 M/mcL (4.19-5.50); Red Cell Distribution Width 22.7 % (11.5-14.5); Segmented Neutrophils % 68.3 %
[2016-11-20 01:40] LABS: Calcium 8.2 mg/dL (8.6-10.8); Potassium 4.8 mEq/L (3.5-4.5)
[2016-11-20 01:57] LABS: Platelet Count 72 K/mcL (140-400)
[2016-11-20 01:58] LABS: Platelet Estimate Decreased (Normal)
[2016-11-20] MEDS: Acetaminophen 325 MG TABLET PO PRN ×2 (05:11→16:06)
[2016-11-20] MEDS ORDERED: *HR* Amiodarone 200 MG TABLET PO SCH (09:00)
[2016-11-20] MEDS ORDERED: FISH OIL 500 MG PO SCH (09:00)
[2016-11-20] MEDS ORDERED: 0.9 % Sodium Chloride 250 ML IVC PRN (09:24)
[2016-11-20] MEDS ORDERED: 0.9 % Sodium Chloride 1,000 ML PRIME SCH (09:30)
--- NOTE | 2016-11-20 09:48 | Nephrology Consult Note ---
Date of Encounter: 11/20/16 Time of Encounter: 09:30 Assessment and Plan (1) End stage renal disease on dialysis Current Visit: No Status: Chronic Exac CHF, possible HCAP. On empiric antibiotics. Will do HD today, keeping [facility] schedule. Orders given. History of Present Illness - Reason for Consult end stage renal disease - History of Present Illness Mr. Hatch is a 45 year old male with ESRD who dialyzes at [facility], last dialysis on Wednesday. Other PMH-arthritis, cardiomyopathy, CHF, COPD, diabetes, dialysis, GERD, hyperlipidemia, hypertension, osteoporosis. Mr. Hatch left AMA on Wednesday and re-presented early morning hypoxic and having increased shortness of breath on NRB sat 88%. BNP 844, CXR showed increased vascular congestion and possible opacity of the RLL. he was admitted with CHF exacerbation, hypoxia and possible HCAP. Empiric triple antibiotic therapy started. K+ 4.5. No immediate need for HD at that time. Today alert, states breathing much easier. No new complaints. Past Med Surg Social Fam HX - Past Medical History Medical history: arthritis, cardiomyopathy, CHF, COPD, diabetes, dialysis, GERD , hyperlipidemia, hypertension, osteoporosis, renal disease, other Psychiatric history: anxiety, depression, other - Past Surgical History Surgical History: herniorrhaphy, vascular surgery, other - Social History Smoking Status: Current every day smoker Smokeless Tobacco Status: No Alcohol use: none, unknown Drug use: marijuana, other - Family History Father Living Status: Hx Family Cardiac Disorders: No Hx Family Respiratory Disorders: No Hx Family Cancer: No Hx Family GI Disorders: No Hx Family Endocrine Disorder: No Hx Family Neuromuscular Disorders: No Hx Family Neurologic Disorders: No Hx Family HEENT Disorders: No Hx Family Autoimmune Disorders: No Mother Adopted: No Living Status: Still Living Hx Family Cardiac Disorders: Yes Hx Family Endocrine Disorder: Yes Medications and Allergies Insulin Glargine,Hum.rec.anlog [Lantus Solostar] 30 unit SQ BID #0 01/07/15 [ History] [place] Oil/[place]-3 Fatty Acids [Fish Oil 500 mg Softgel] 1 cap PO DAILY #0 [History] Carvedilol [Coreg] 12.5 mg PO BIDWM 01/24/16 [History] Duloxetine HCl [Cymbalta] 60 mg PO DAILY 01/24/16 [History] Renal Vitamin [Renal Caps Softgel] 1 mg PO DAILY 01/24/16 [History] Ammonium Lactate 1 appl TP BID PRN 09/02/16 [History] Cinacalcet HCl [Sensipar] 120 mg PO DAILY 09/02/16 [History] hydrALAZINE [HydrALAZINE] 25 mg PO BID 09/02/16 [History] Amiodarone [Cordarone] 200 mg PO BID tablet 09/19/16 [Rx] Docusate [Colace] 100 mg PO BID PRN #0 capsule 09/19/16 [Rx] Ipratropium Neb [Atrovent Neb] 0.5 mg IH TIDR inhsol 09/19/16 [Rx] Levalbuterol Neb [Xopenex Neb] 0.63 mg IH TIDR vial.neb 09/19/16 [Rx] Tetrahydrozoline [Visine] 1 drop BOTH EYES QID PRN 09/29/16 [History] Warfarin [Coumadin] 5 mg PO Q48H 09/29/16 [History] Warfarin [Coumadin] 7.5 mg PO Q48H 09/29/16 [History] Atorvastatin [Lipitor] 40 mg PO HS 11/16/16 [History] Budesonide/Formoterol 160/4.5 [Symbicort 160/4.5] 2 puff IH BIDR PRN 11/16/16 [ History] Calcium Acetate [Phos-LO] 2,668 mg PO TIDWM 11/16/16 [History] Ethyl Chloride 1 unit TP MOWEFR 11/16/16 [History] Nicotine Patch [Nicoderm] 14 mg TD DAILY 11/16/16 [History] Omeprazole [PriLOSEC] 20 mg PO DAILY 11/16/16 [History] Oxygen 2 l NS AD 11/16/16 [History] Pregabalin [Lyrica] 100 mg PO TID 11/16/16 [History] Allergies hydrocodone [From [place]] Allergy (Intermediate, Verified 09/29/16 16:59) Hives lanolin [From Lacri-Lube S.O.P.] Adverse Reaction (Verified 11/18/16 10:51) Swelling of the Eye CAUSES IRRITATION/REDNESS TO EYE. PATIENT REQUESTS NOT TO HAVE WHEN HE IS INTUBATED. mineral oil [From Lacri-Lube S.O.P.] Adverse Reaction (Verified 11/18/16 10:50) Swelling of the Eye petrolatum,white [From Lacri-Lube S.O.P.] Adverse Reaction (Verified 11/18/16 10 :50) Swelling of the Eye Review of Systems All Systems: reviewed and no additional remarkable complaints except as stated Exam - Vital Signs Vital signs: Initial Vital Signs Resp Pulse Ox 23 88 11/19/16 03:17 11/19/16 03:17 Vital Signs - Last 8 Hours Temp Pulse Resp BP Pulse Ox 11/20/16 08:34 97.6 F 130 24 84/51 92 11/20/16 05:20 97.6 F 139 20 127/75 Intake and Output 11/19/16 11/20/16 11/20/16 23:59 07:59 15:59 Intake Total 120 / 120 Balance 120 / 120 Intake: Oral 120 / 120 Other: Stool Size Moderate Stool Consistency formed Stool Color Brown Weight 128.367 kg Blood Glucose* 145 99 Patient Weight 11/20/16 23:59 Weight 128.367 kg - General Appearance General appearance: well-developed, well-nourished, appears started age, obese EENT: mucous membranes moist Neck: no JVD Respiratory: rhonchi Cardiology: edema, irregular rhythm Additional Comments: mild LE edema Gastrointestinal: normoactive bowel sounds, no tenderness, obese Integumentary: warm and dry Neurologic: alert and oriented x3 Psychiatric: mood/affect appropriate, cooperative Results - Lab Results 11/20/16 00:57 11/20/16 00:57 Most recent lab results Calcium 8.2 mg/dL (8.6-10.8) L D 11/20/16 00:57 Magnesium 2.0 mg/dL (1.6-2.6) 11/20/16 00:57 Consult Discharge Plan - Plan Referrals: Arthur Pozo MD [Primary Care Provider] -
[2016-11-20] MEDS: Calcium Acetate 667 MG CAPSULE PO SCH ×3 (09:59→17:24)
[2016-11-20] MEDS: Nicotine 14 MG PATCH.TD24 TD SCH (10:00)
[2016-11-20] MEDS: Insulin LISPRO 300 UNITS/3 ML VIAL SQ SCH ×4 (10:00→21:37)
[2016-11-20 11:05] LABS: INR 1.5; Prothrombin Time 16.8 Seconds (9.4-12.1)
[2016-11-20] MEDS: Insulin DETEMIR 100 UNIT/ML X5UNITS SQ SCH ×2 (11:11→21:36)
[2016-11-20] MEDS: Pregabalin 50 MG CAPSULE PO SCH ×3 (11:21→21:36)
[2016-11-20] MEDS: Renal Vitamin 1 MG CAPSULE PO SCH (11:21)
--- NOTE | 2016-11-20 13:33 | Cardiology Progress Note ---
Date of Encounter: 11/20/16 Time of Encounter: 13:30 Assessment and Plan (1) Atrial flutter with rapid ventricular response Current Visit: No Status: Acute Atrial flutter with RVR HR in the 140's on admission. Likely exacerbated by missing multiple doses of carvedilol. Home meds restarted. On carvedilol 6.25 mg BID and amiodarone 200 mg BID. Carvedilol changed to metoprolol 50 mg BID 11/19/16. Avg HR over 24 hours was 131bpm. HR will likely improve with fluid removal. Increase metoprolol to 75 mg BID. Monitor b/p. Change to toprol XL at discharge. TTE 09/03/16 showed reduced EF at 20%, moderate diastolic dysfunction, moderate RV hypokenesis, no pulmonary hypertension. There was a small pericardial effusion with no evidence of tamponade. EF mildly reduced from previous. EF 35% 01/2016. TSH 09/2015 was normal. Continue coumadin for anticoagulation. (2) CHF exacerbation Current Visit: Yes Status: Acute Acute on chronic systolic CHF. Known non-ischemic cardiomyoapthy. EF 20%. CXR shows mild pulmonary edema. ESRD on dialysis. Fluid management per nephrology. CHF education reviewed. Low sodium diet. Daily weights and strict I&O. Continue toprol xl. No ACEi d/t kidney disease and due to low blood pressure. Qualifiers: Congestive heart failure type: systolic Qualified Code(s): I50.23 - Acute on chronic systolic (congestive) heart failure Discussion w patient/family: The assessment and plan as outlined above was discussed with the patient and/or family members who expressed understanding and agreement. All questions were answered. Thank you for involving us in the care of your patient. Please call with any questions. Subjective Principal diagnosis: aflutter with RVR Interval history: Mr. Hatch states he needs fluid removed so he will feel better. Denies chest pain or palpitations. C/o orthopnea. Objective Vital Signs, Last 4 Hours Temp Pulse Resp BP Pulse Ox 11/20/16 13:20 108/58 11/20/16 13:05 124/61 11/20/16 12:50 130/63 11/20/16 12:35 120/65 11/20/16 12:20 103/41 11/20/16 12:05 94/51 11/20/16 11:50 107/48 11/20/16 11:35 98/55 11/20/16 11:20 90/43 11/20/16 11:05 98/49 11/20/16 10:50 96/59 11/20/16 10:35 92/59 11/20/16 10:20 97.4 F L 20 93/44 11/20/16 09:41 140 111/67 100 General: Conversant, No Apparent Distress HEENT: Atraumatic, Normocephaly, Mucus Membranes Moist Neck: No JVD, Normal carotid pulses Cardiac: Other (Irregularly rregular) Lungs: Other (diminished bases) Neuro: Alert and responsive, No focal deficits noted, Other (Agitated) Abdomen: Soft, Non-Tender, Other (Distended more than yesterday) Skin: Other (BLE with darkening of normal skin tone. ) Musculoskeletal: No Chest Wall Tenderness Extremities: No Clubbing, No Cyanosis, Normal Pulses, Other (2+ edema with BLE edema. ) Results 11/20/16 00:57 11/20/16 00:57 Lab Results 11/19/16 11/19/16 11/19/16 13:44 13:44 20:17 WBC Hgb Hct Plt Count INR Sodium Potassium Chloride Carbon Dioxide BUN Creatinine Glucose Calcium Magnesium Troponin I 0.18 H* 0.15 H* TSH 1.390 11/20/16 11/20/16 11/20/16 00:57 00:57 00:57 WBC 6.3 Hgb 10.6 L Hct 35.2 L Plt Count 72 L INR Sodium 138 Potassium 4.8 H Chloride 99 Carbon Dioxide 25 BUN 48 H D Creatinine 7.87 H Glucose 179 H Calcium 8.2 L D Magnesium 2.0 Troponin I 0.13 H* TSH 11/20/16 10:30 WBC Hgb Hct Plt Count INR 1.5 Sodium Potassium Chloride Carbon Dioxide BUN Creatinine Glucose Calcium Magnesium Troponin I TSH - EKG Interpretation EKG results cardiology: other (24 hour telemetry review completed.) - VTE Reasons for not Prescribing Prophylaxis: Not indicated-Anticoagulated or INR therapeutic Consult Discharge Plan - Plan Referrals: Arthur Pozo MD [Primary Care Provider] -
--- NOTE | 2016-11-20 15:59 | Internal Med Progress Note ---
<David Diamond - Last Filed: 11/20/16 16:11> Date of Encounter: 11/20/16 Time of Encounter: 10:00 - Assessment and plan (1) Atrial flutter with rapid ventricular response Current Visit: Yes Status: Acute Assessment and plan: - EKG in ED showed possible Aflutter with a rate of 147. - Patients HR remains elevated at 130 this AM. Patient admits to being non compliant on his medications - Patient was started on carvedilol in ED, however was transitioned to metoprolol 50 mg BID due to hypotension - Patient also receiving amiodorone 200 mg Qday - cardiology following, appreciate recommendations - Patient has been non compliant on coumadin, most recent INR is 1.6 - Patient is refusing arterial blood draws, will attempt to get INR on dialysis days and ely [place] patient. - Will monitor carefully for HoTN and hold amio/ metoprolol as needed. (2) Systolic heart failure, chronic Current Visit: Yes Status: Chronic Assessment and plan: QUIQUE on 09/03 showed EF of 20% with moderate diastolic dysfunction and RV hypokinesis - CXR in ED showed mild pulmonary edema - Patient is currently denying SOB and is SpO2 is 92% on 3L - Plan to control BP, fluid volume with dialysis this afternoon. - Nephrology following, appreciate recommendations - Renal diet, strict I/Os (3) End stage renal disease on dialysis Current Visit: Yes Status: Chronic Assessment and plan: - BUN/ CR is 48/7.87 - patient is to receive dialysis this afternoon - Nephrology following. - Will continue to monitor fluid status, renal function (4) Elevated troponin Current Visit: Yes Status: Acute Assessment and plan: Troponin in ED was 0.18 ->0.15 -> 0.13 - Likely a result of decreased renal function, increased demand from Afib - Cardiology on board. (5) Hypotension Current Visit: Yes Status: Chronic Assessment and plan: patient currently hypotensive, 84/51 this AM - receiving metoprolol, amiodarone. - Will hold BB, amio as necessary while giving when BP is stable to control HR - Cautious of fluid resuscitation given CHF exacerbation, HD patient. Qualifiers: Hypotension type: unspecified hypotension type Qualified Code(s): I95.9 - Hypotension, unspecified (6) Diabetes mellitus type 2, uncontrolled, with complications Current Visit: Yes Status: Chronic Assessment and plan: - Patient uncompliant with medications - BS of 179 this AM. - Will obtaim A1c - SSI as needed for BS control Qualifiers: Diabetes mellitus alf insulin use: with terminal block assembler use Qualified Code( s): E11.8 - Type 2 diabetes mellitus with unspecified complications; E11.65 - Type 2 diabetes mellitus with hyperglycemia; Z79.4 - [facility] (current) use of insulin (7) DVT prophylaxis Current Visit: Yes Status: Acute Assessment and plan: - Hx of DVT - Patient is on coumadin for AFib/ Flutter, however non compliant - INR 1.6. Will continue home dose to attempt to correct INR as long as we can obtain arterial blood draws. Patient is refusing at this time. (8) Chronic pain syndrome Current Visit: Yes Status: Acute Assessment and plan: - Patient is currently denying pain - He takes gabapentin 100 mg TID at home, we have decreased the dose to 50 mg TID with intent to decrease further due to renal insufficiency. - Tylenol 650 mg PRN pain - Caution with pain meds given patient's HoTN - Time Spent With Patient Greater than 35 minutes - Subjective Interval history: Patient was seen and examined this morning at bedside. Patient states that he is hesitant to be here, and that there is nothing wrong with him. He states that his medications are doing him more harm than good. He is currently denying any symptoms of shortness of breath, stating that he does not even need the nasal cannula. He also states that his heart rate is normally in the 120s and that is normal for him. He also denies any symptoms of fevers, chills, nausea, vomiting, chest pain, palpitations. He is aware that he needs dialysis and states that in the future, he would like to approach his chronic conditions from a more natural approach. Patient also states his noncompliance is partially due to forgetting to take his medicines throughout the day due to his busy schedule. - Constitutional Vitals: Temp Pulse Resp BP Pulse Ox 97.6 F 140 20 108/71 100 11/20/16 14:25 11/20/16 09:41 11/20/16 14:25 11/20/16 14:25 11/20/16 09:41 General appearance: Present: A&O X 3, answers questions appropriately Exam: Gen.: Vitals noted, tachycardic, hypotensive.. No acute distress. AAOx3 HEENT: PERRL/EOMI, oropharynx clear, Normocephalic, atraumatic Neck: Supple. No adenopathy. Cardiac: no murmur, +S1/S2. Tachycardic. Pulmonary: Diffuse end expiratory wheezes. Mild rales. no rhonchi, equal chest expansion Abdomen: soft, nontender, BS noted, no guarding Back: Nontender throughout. MSK: ROM intact, no joint swelling noted Extremities: Stage I pressure ulcer on left heel. positive BLE edema, nontender calf, no cyanosis or clubbing. Multiple Palpable fistulas most notably on the left arm Neuro: A&Ox3, moves all extremities, no focal deficits Psych: Appropriate mood and behavior. Poor insight and judgment for his chronic medical conditions Internal Medicine: Result - Labs CBC & Chem 7: 11/20/16 00:57 11/20/16 00:57 Labs: Short CBC 11/20/16 Range/Units 00:57 WBC 6.3 (4.3-11.1) K/mcL Hgb 10.6 L (12.9-16.9) g/dL Hct 35.2 L (37.5-50.1) % Plt Count 72 L (140-400) K/mcL Neutrophils # 4.3 (1.6-8.9) K/mcL BMP 11/20/16 00:57 Sodium 138 Potassium 4.8 H Chloride 99 Carbon Dioxide 25 BUN 48 H D Creatinine 7.87 H Glucose 179 H Calcium 8.2 L D Cardiac Enzymes 11/19/16 11/20/16 Range/Units 20:17 00:57 Troponin I 0.15 H* 0.13 H* (0-0.03) ng/mL - ABG Interpretation ABG results: PT/INR, D-dimer PT 16.8 Seconds (9.4-12.1) H 11/20/16 10:30 - VTE Reasons for not Prescribing Prophylaxis: Not indicated-Anticoagulated or INR therapeutic Consult Discharge Plan - Plan Referrals: Arthur Pozo MD [Primary Care Provider] - 12/01/16 9:45 am (Please follow up as schedule..) <Damian Liz - Last Filed: 11/20/16 17:40> Date of Encounter: 11/20/16 - Constitutional Vitals: Temp Pulse Resp BP Pulse Ox 98.2 F 144 22 95/56 98 11/20/16 16:56 11/20/16 16:56 11/20/16 16:56 11/20/16 16:56 11/20/16 16:56 Internal Medicine: Result - Labs CBC & Chem 7: 11/20/16 00:57 11/20/16 00:57 Labs: Short CBC 11/20/16 Range/Units 00:57 WBC 6.3 (4.3-11.1) K/mcL Hgb 10.6 L (12.9-16.9) g/dL Hct 35.2 L (37.5-50.1) % Plt Count 72 L (140-400) K/mcL Neutrophils # 4.3 (1.6-8.9) K/mcL BMP 11/20/16 00:57 Sodium 138 Potassium 4.8 H Chloride 99 Carbon Dioxide 25 BUN 48 H D Creatinine 7.87 H Glucose 179 H Calcium 8.2 L D Cardiac Enzymes 11/19/16 11/20/16 Range/Units 20:17 00:57 Troponin I 0.15 H* 0.13 H* (0-0.03) ng/mL - ABG Interpretation ABG results: PT/INR, D-dimer PT 16.8 Seconds (9.4-12.1) H 11/20/16 10:30 - Attending Attestation I examined this patient and my medical decision-making was reviewed with the Resident Physician on 11/20/16. I agree with the documented findings, disposition and treatment plan as described except to the extent set forth below. Patient is assessed and evaluated at the bedside 45-year-old male with extreme medical noncompliance, ESRD on hemodialysis, non- ischemic cardiomyopathy, COPD, atrial fibrillation, Afib. Readmitted after leaving ICU AMA after being extubated for management of acute on chronic respiratory failure, Afib with RVR, hypotension, CHFrEF Physical exam: VS tachycardia and hypotensive, alert, awake oriented, morbidly obese, Chest-S1, S2 heard, regular rate, tachycardia. Lungs with faint bibasilar crackles and posterior end expiratory wheezing. Extremities with chronic stasis dermatitis in anterior legs and chronic pedal edema. L heel with blister suspected unstageable ulcer, and R foot with at least stage I decubitus ulcer Labs and Imaging reviewed: EKG shows atrial fibrillation with RVR, chem and CBC at baseline, BNP 844, INR sub-therapeutic Acute on chronic respiratory failure-multifactorial due to underlying ESRD, COPD , ZAINAB, CHF. Euvolemic, stable on supplemental O2, continue same. A fib with RVR , difficult to control due to low blood pressure, non-compliance, and patient stated his baseline HR is 120, continue amiodarone, metoprolol. Cardiology is following. Warfarin will be continued and INR monitored, patient sometimes refuses labs, has refused ICD placement for his CMP in the past, renal is following for HD. Appreciate input Rest of details as in resident physicians documentation
[2016-11-20] MEDS ORDERED: *HR* Warfarin 5 MG TABLET PO SCH (16:00)
[2016-11-20] MEDS: *HR* Amiodarone 200 MG TABLET PO SCH (16:07)
[2016-11-20] MEDS: Ipratropium Neb 0.5 MG NEBULIZER IH SCH (16:14)
--- NOTE | 2016-11-20 17:10 | Electrocardiograph Report ---
[place] [address] Test Date: 2016-11-19 Pat Name: Eduar Hatch Department: 112 Room: 2A Gender: M Court Transcriber: : 1970 Requested By: Damian Liz Order Number: [id number] Reading MD: Keo Almeida DO Measurements Intervals [place] Rate: 143 P: NC: 0 QRS: 67 QRSD: 103 T: 44 QT: 323 QTc: 406 Interpretive Statements ATRIAL FLUTTER/TACHYCARDIA WITH RAPID VENTRICULAR RESPONSE Electronically Signed On 11-20-2016 17:09:25 EDT by Keo Almeida DO
[2016-11-20] MEDS: Budesonide/Formoterol 160/4.5 MDI IH SCH (19:52)
[2016-11-21] MEDS: Ipratropium Neb 0.5 MG NEBULIZER IH SCH ×4 (01:00→23:43)
[2016-11-21] MEDS: Levalbuterol Neb 0.63 MG/3 ML IH SCH ×4 (01:00→23:43)
[2016-11-21] MEDS: Acetaminophen 325 MG TABLET PO PRN ×2 (02:12→21:51)
--- NOTE | 2016-11-21 09:43 | Cardiology Progress Note ---
Date of Encounter: 11/21/16 Time of Encounter: 09:40 Assessment and Plan (1) Atrial flutter with rapid ventricular response Current Visit: Yes Status: Acute Atrial flutter with RVR HR in the 140's on admission. Likely exacerbated by missing multiple doses of carvedilol. Home meds restarted. On carvedilol 6.25 mg BID and amiodarone 200 mg BID. Carvedilol changed to metoprolol 50 mg BID 11/19/16. Metoprolol increased yesterday. Avg HR over 24 hours was 132bpm. Continue to increase metoprolol as tolerated. Increased to 100 mg twice a day. Change to toprol XL at discharge. TTE 09/03/16 showed reduced EF at 20%, moderate diastolic dysfunction, moderate RV hypokenesis, no pulmonary hypertension. There was a small pericardial effusion with no evidence of tamponade. EF mildly reduced from previous. EF 35% 01/2016. TSH 09/2015 was normal. Continue Coumadin for anticoagulation. (2) CHF exacerbation Current Visit: Yes Status: Acute Acute on chronic systolic CHF. Known non-ischemic cardiomyoapthy. EF 20%. CXR shows mild pulmonary edema. ESRD on dialysis. Fluid management per nephrology. Negative 2400 ml for 24 hours and net negative 923 for stay. Likely will need more fluid removal at dialysis. CHF education reviewed. Low sodium diet. Daily weights and strict I&O. Continue BB. No ACEi d/t kidney disease and due to low blood pressure. Qualifiers: Congestive heart failure type: systolic Qualified Code(s): I50.23 - Acute on chronic systolic (congestive) heart failure (3) Elevated troponin Current Visit: Yes Status: Acute Mild flat troponin elevation noted. Patient denies chest pain. Chronic troponin elevation in the setting of end-stage renal disease and CHF. Discussion w patient/family: The assessment and plan as outlined above was discussed with the patient and/or family members who expressed understanding and agreement. All questions were answered. Thank you for involving us in the care of your patient. Please call with any questions. Plan of care and recommendations discussed with Dr. Millan. Subjective Principal diagnosis: aflutter with RVR Interval history: Reports he feels better but continues to have fluid overload. Denies chest pain. C/o persistent cough. Objective Vital Signs, Last 4 Hours Temp Pulse Resp BP Pulse Ox 11/21/16 06:48 97.5 F L 125 18 104/70 98 General: Conversant, No Apparent Distress HEENT: Atraumatic, Normocephaly, Mucus Membranes Moist Neck: No JVD, Normal carotid pulses Cardiac: Other (Irregularly irregular) Lungs: Other (Respirations are easy, rhonchi scattered throughout.) Neuro: Alert and responsive, No focal deficits noted Abdomen: Soft, Non-Tender Skin: No rashes noted on visualized skin Musculoskeletal: No Chest Wall Tenderness Extremities: No Clubbing, No Cyanosis, Normal Pulses, Other (1+ edema of bilateral lower extremity with discoloration) Results 11/20/16 00:57 11/20/16 00:57 Lab Results 11/20/16 10:30 INR 1.5 - VTE Reasons for not Prescribing Prophylaxis: Not indicated-Anticoagulated or INR therapeutic Consult Discharge Plan - Plan Referrals: Arthur Pozo MD [Primary Care Provider] - 12/01/16 9:45 am (Please follow up as schedule..)
--- NOTE | 2016-11-21 10:06 | Nephrology Progress Note ---
Date of Encounter: 11/21/16 Time of Encounter: 09:40 - Assessment and Plan (1) End stage renal disease on dialysis Current Visit: Yes Status: Chronic Exac CHF, possible HCAP. Will UF today for fluid removal. Orders given. HD on Wednesday, keeping MWF schedule. Subjective Principal diagnosis: aflutter with RVR Interval history: Sitting on edge of bed, States breathing easier though feels he still has extra fluid in legs. Agreeable to UF today. Objective - Vital Signs Vital signs: Vital Signs Temp Pulse Resp BP Pulse Ox 11/21/16 06:48 97.5 F L 125 18 104/70 98 11/21/16 03:36 98.6 F 136 18 103/63 100 11/21/16 00:17 97.7 F 130 20 96/63 95 11/20/16 20:16 98.0 F 136 20 91/58 95 11/20/16 19:52 19 98 11/20/16 16:56 98.2 F 144 22 95/56 98 11/20/16 14:25 97.6 F 20 108/71 11/20/16 14:10 103/67 11/20/16 13:50 100/49 11/20/16 13:35 103/51 11/20/16 13:20 108/58 11/20/16 13:05 124/61 11/20/16 12:50 130/63 11/20/16 12:35 120/65 11/20/16 12:20 103/41 11/20/16 12:05 94/51 11/20/16 11:50 107/48 11/20/16 11:35 98/55 11/20/16 11:20 90/43 11/20/16 11:05 98/49 11/20/16 10:50 96/59 11/20/16 10:35 92/59 11/20/16 10:20 97.4 F L 20 93/44 Intake and Output 11/20/16 11/21/16 11/21/16 23:59 07:59 15:59 Intake Total 100 / 100 120 / 120 240 / 240 Output Total 0 / 0 0 / 0 Balance 100 / 100 120 / 120 240 / 240 Intake: Oral 100 / 100 120 / 120 240 / 240 Output: Urine 0 / 0 0 / 0 Other: Meal Breakfast Percent of Meal Consumed 100% Stool Size Moderate Moderate Small Stool Consistency soft soft formed Stool Characteristics Normal for Patient Stool Color Brown Jim Colored Brown # Bowel Movements 1 1 Weight 128.367 kg 128.457 kg Blood Glucose* 195 164 Patient Weight 11/21/16 23:59 Weight 128.457 kg - General Appearance General appearance: Present: well-developed, well-nourished, appears started age , obese EENT: Present: mucous membranes moist Neck: Present: no JVD Respiratory: Present: clear Cardiology: Present: edema Additional Comments: mild-1+ pitting edema LE Gastrointestinal: Present: normoactive bowel sounds, no tenderness Integumentary: Present: warm and dry Neurologic: Present: alert and oriented x3 Psychiatric: Present: mood/affect appropriate, cooperative - Lab 11/20/16 00:57 11/20/16 00:57 Most recent lab results Calcium 8.2 mg/dL (8.6-10.8) L D 11/20/16 00:57 Magnesium 2.0 mg/dL (1.6-2.6) 11/20/16 00:57 - VTE Reasons for not Prescribing Prophylaxis: Not indicated-Anticoagulated or INR therapeutic Consult Discharge Plan - Plan Referrals: Arthur Pozo MD [Primary Care Provider] - 12/01/16 9:45 am (Please follow up as schedule..)
[2016-11-21] MEDS: Calcium Acetate 667 MG CAPSULE PO SCH ×3 (10:11→16:11)
[2016-11-21] MEDS: Nicotine 14 MG PATCH.TD24 TD SCH (10:12)
[2016-11-21] MEDS: *HR* Amiodarone 200 MG TABLET PO SCH (10:12)
[2016-11-21] MEDS ORDERED: 0.9 % Sodium Chloride 250 ML IVC PRN (10:12)
[2016-11-21] MEDS: Renal Vitamin 1 MG CAPSULE PO SCH (10:14)
[2016-11-21] MEDS ORDERED: 0.9 % Sodium Chloride 1,000 ML PRIME SCH (10:15)
[2016-11-21] MEDS: Pregabalin 50 MG CAPSULE PO SCH ×3 (10:17→21:51)
[2016-11-21] MEDS: Insulin LISPRO 300 UNITS/3 ML VIAL SQ SCH ×4 (10:23→21:52)
[2016-11-21] MEDS: Insulin DETEMIR 100 UNIT/ML X5UNITS SQ SCH ×2 (10:23→21:51)
[2016-11-21] MEDS: Budesonide/Formoterol 160/4.5 MDI IH SCH ×2 (10:54→23:01)
--- NOTE | 2016-11-21 11:44 | Internal Med Progress Note ---
<David Diamond - Last Filed: 11/21/16 11:42> Date of Encounter: 11/21/16 Time of Encounter: 11:42 - Assessment and plan (1) Atrial flutter with rapid ventricular response Current Visit: Yes Status: Acute Assessment and plan: - EKG in ED showed possible Aflutter with a rate of 147. - Patients HR remains elevated at 125 this AM. Patient admits to being non compliant on his medications. Patient has been refusing his metoprolol, amiodarone - Patient's blood pressure has been moderately low, when blood pressure is stable patient is refusing medications - cardiology following, appreciate recommendations. Recommending increased dose of metoprolol, however patient is refusing his current dose - Patient has been non compliant on coumadin, most recent INR is 1.6. Denying arterial blood draws to recheck INR - Patient is refusing arterial blood draws, will attempt to get INR on dialysis days and [place] patient. - Will monitor carefully for HoTN and hold amio/ metoprolol as needed. (2) Systolic heart failure, chronic Current Visit: Yes Status: Chronic Assessment and plan: QUIQUE on 09/03 showed EF of 20% with moderate diastolic dysfunction and RV hypokinesis - CXR in ED showed mild pulmonary edema - Patient is currently denying SOB and is SpO2 is 98% on 3.5L - Plan to control BP, fluid volume with dialysis ultrafiltration this afternoon for greater removal of fluid.. - Nephrology following, appreciate recommendations - Renal diet, strict I/Os (3) End stage renal disease on dialysis Current Visit: Yes Status: Chronic Assessment and plan: - BUN/ CR is 48/7.87 as of yesterday, did not allow repeat BMP to be drawn - patient completed dialysis yesterday, to receive ultrafiltration this afternoon - Nephrology following. - Will continue to monitor fluid status, renal function (4) Elevated troponin Current Visit: Yes Status: Acute Assessment and plan: Troponin in ED was 0.18 ->0.15 -> 0.13 - Likely a result of decreased renal function, increased demand from Afib - Cardiology on board, attempting to control heart rate. (5) Hypotension Current Visit: Yes Status: Chronic Assessment and plan: patient currently not hypotensive at 104/90, however he has not been taking his medications - receiving metoprolol, amiodarone. - Will hold BB, amio as necessary while giving when BP is stable to control HR - Cautious of fluid resuscitation given CHF exacerbation, HD patient. Qualifiers: Hypotension type: unspecified hypotension type Qualified Code(s): I95.9 - Hypotension, unspecified (6) Diabetes mellitus type 2, uncontrolled, with complications Current Visit: Yes Status: Chronic Assessment and plan: - Patient uncompliant with medications - BS of 179 this AM. 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 Will continue home dose to attempt to correct INR as long as we can obtain arterial blood draws. Patient is refusing at this time. (8) Chronic pain syndrome Current Visit: Yes Status: Acute Assessment and plan: - Patient is currently denying pain - He takes gabapentin 100 mg TID at home, we have decreased the dose to 50 mg TID with intent to decrease further due to renal insufficiency. - Tylenol 650 mg PRN pain - Caution with pain meds given patient's HoTN - Subjective Interval history: Patient was seen and examined this morning at bedside. Patient is calm and has no complaints including shortness of breath, chest pain, nausea, vomiting, fever , chills. He has been refusing medications, laboratory blood draws. He does agree to ultrafiltration dialysis this afternoon, per nephrology note. He has not been receiving his metoprolol due to both hypotension and refusal. - Constitutional Vitals: Temp Pulse Resp BP Pulse Ox 97.5 F L 125 18 104/70 98 11/21/16 06:48 11/21/16 06:48 11/21/16 06:48 11/21/16 06:48 11/21/16 10:10 General appearance: Present: A&O X 3, answers questions appropriately Exam: Gen.: Vitals noted. No acute distress. AAOx3 sitting comfortably in bed speaking in full sentences HEENT: PERRL/EOMI, oropharynx clear, Normocephalic, atraumatic Neck: Supple. No adenopathy. Cardiac: RRR, no murmur, +S1/S2. Tachycardic Pulmonary: Diffuse wheezing bilaterally. No rales or rhonchi, equal chest expansion Abdomen: soft, nontender, BS noted, no guarding Back: Nontender throughout. MSK: ROM intact, no joint swelling noted Extremities: 2+ bilateral pitting edema in lower extremities, hemodialysis fistula in left arm. nontender calf, no cyanosis or clubbing Neuro: A&Ox3, moves all extremities, no focal deficits Psych: Appropriate mood and behavior. Poor insight into chronic medical conditions, poor judgment Internal Medicine: Result - Labs CBC & Chem 7: 11/20/16 00:57 11/20/16 00:57 - ABG Interpretation ABG results: PT/INR, D-dimer PT 16.8 Seconds (9.4-12.1) H 11/20/16 10:30 - VTE Reasons for not Prescribing Prophylaxis: Not indicated-Anticoagulated or INR therapeutic Consult Discharge Plan - Plan Referrals: Arthur Pozo MD [Primary Care Provider] - 12/01/16 9:45 am (Please follow up as schedule..) <AgustoDamian T - Last Filed: 11/21/16 13:51> Date of Encounter: 11/21/16 - Constitutional Vitals: Temp Pulse Resp BP Pulse Ox 98.7 F 125 20 121/68 98 11/21/16 11:05 11/21/16 06:48 11/21/16 11:05 11/21/16 12:50 11/21/16 10:10 Internal Medicine: Result - Labs CBC & Chem 7: 11/21/16 12:21 11/21/16 12:21 Labs: Short CBC 11/21/16 Range/Units 12:21 WBC 7.4 (4.3-11.1) K/mcL Hgb 11.7 L (12.9-16.9) g/dL Hct 39.9 (37.5-50.1) % Plt Count 98 L (140-400) K/mcL BMP 11/21/16 12:21 Sodium 142 Potassium 4.7 H Chloride 102 Carbon Dioxide 28 BUN 34 H D Creatinine 5.76 H Glucose 125 H Calcium 9.0 Liver Function 11/21/16 Range/Units 12:21 Total Bilirubin 0.9 (0.2-1.2) mg/dL AST 28 (5-34) Units/L ALT 25 (0-55) Units/L Alkaline Phosphatase 508 H (38-126) Units/L Albumin 3.3 L (3.5-5.0) g/dL - ABG Interpretation ABG results: PT/INR, D-dimer PT 15.4 Seconds (9.4-12.1) H 11/21/16 12:21 - Attending Attestation I examined this patient and my medical decision-making was reviewed with the Resident Physician on 11/21/16. I agree with the documented findings, disposition and treatment plan as described except to the extent set forth below. Patient is assessed and evaluated at the bedside 45-year-old male with extreme medical noncompliance, ESRD on hemodialysis, non- ischemic cardiomyopathy, COPD, atrial fibrillation, Afib. Readmitted after leaving ICU AMA 11/19 after being extubated for management of acute on chronic respiratory failure, Afib with RVR, hypotension, CHFrEF Seen and evaluated at bedside, he has been refusing his B-blockers leading to uncontrolled HR. He otherwise denies any complains. he also refused labs this a.m, is on Coumadin. Accepts tp have it checked with HD. Physical exam: VS tachycardia, blood pressure iprved, MAP >65, alert, awake oriented, morbidly obese, Chest-S1, S2 heard, regular rate, tachycardia. Lungs with faint bibasilar crackles and posterior end expiratory wheezing. Extremities with chronic stasis dermatitis in anterior legs and chronic pedal edema. L heel with blister suspected unstageable ulcer, and R foot with at least stage I decubitus ulcer Labs and Imaging reviewed: INR 1.4, Chem and CBC at baseline Acute on chronic respiratory failure-multifactorial due to underlying ESRD, COPD , ZAINAB, CHF. Euvolemic, stable on supplemental O2, continue same. A fib with RVR, difficult to control due to low blood pressure, non-compliance, refusal of medications.continue amiodarone, metoprolol. Cardiology is following. Warfarin will be continued and INR monitored. has refused ICD placement for his CMP in the past CHFrEF/ESRD-renal is following for HD. For hemoflitration today Elevated troponin adynamic Bilateral heel ulcers: Continue dressing DM-FS acceptable. Check A1C, continue insulin Rest of details as in resident physicians documentation
[2016-11-21 12:29] LABS: Hematocrit 39.9 % (37.5-50.1); Hemoglobin 11.7 g/dL (12.9-16.9); Immature Platelets 10.7 % (1.1-6.1); Mean Corpuscular HGB Conc 29.3 g/dL (31.6-35.5); Mean Corpuscular Hemoglobin 28.1 pg (28.0-33.3); Mean Corpuscular Volume 95.9 fL (83.0-100.0); Mean Platelet Volume 11.7 fL (9.4-12.4); Red Blood Count 4.16 M/mcL (4.19-5.50); Red Cell Distribution Width 22.5 % (11.5-14.5)
[2016-11-21 12:35] LABS: INR 1.4; Prothrombin Time 15.4 Seconds (9.4-12.1)
[2016-11-21 12:45] LABS: Albumin 3.3 g/dL (3.5-5.0); Albumin/Globulin Ratio 0.8 (1.1-2.2); Bilirubin,Total 0.9 mg/dL (0.2-1.2); Globulin 4.4 g/dL (2.4-3.5); Potassium 4.7 mEq/L (3.5-4.5); Total Protein 7.7 g/dL (6.0-8.3)
[2016-11-21] MEDS: *HR* Warfarin 7.5 MG TABLET PO SCH (15:51)
[2016-11-21] MEDS: Benzonatate 100 MG CAPSULE PO PRN ×2 (18:09→21:49)
[2016-11-21] MEDS: Metoprolol 100 MG TABLET PO SCH ×2 (18:13→21:51)
[2016-11-22] MEDS: Metoprolol 100 MG TABLET PO SCH ×2 (06:04→17:49)
[2016-11-22] MEDS: Acetaminophen 325 MG TABLET PO PRN (06:04)
[2016-11-22 06:17] LABS: INR 1.5; Prothrombin Time 16.8 Seconds (9.4-12.1)
[2016-11-22 06:26] LABS: Hemoglobin A1C 7.1 %
[2016-11-22 06:32] LABS: Calcium 8.4 mg/dL (8.6-10.8); Potassium 5.1 mEq/L (3.5-4.5)
[2016-11-22] MEDS ORDERED: *HR* Digoxin 0.5 MG/2 ML AMPUL IVP ONE (08:03)
--- NOTE | 2016-11-22 08:19 | Nephrology Progress Note ---
Date of Encounter: 11/22/16 Time of Encounter: 08:05 - Assessment and Plan (1) End stage renal disease on dialysis Current Visit: Yes Status: Chronic Exac CHF, possible HCAP. HD on Wednesday, keeping MWF schedule. Subjective Principal diagnosis: aflutter with RVR Interval history: Sitting on edge of bed, eating breakfast. States breathing easier, had extra UF yesterday. Objective - Vital Signs Vital signs: Vital Signs Temp Pulse Resp BP Pulse Ox 11/22/16 06:44 98.2 F 135 18 104/50 96 11/22/16 03:22 97.9 F 137 18 91/49 97 11/22/16 00:18 98.2 F 135 20 88/55 97 11/21/16 23:43 18 96 11/21/16 20:37 98.1 F 137 20 95/57 96 11/21/16 19:02 98.5 F 138 16 94/56 98 11/21/16 17:47 116/61 11/21/16 16:18 20 96 11/21/16 15:46 98.2 F 135 18 90/52 94 11/21/16 14:05 98.4 F 18 124/77 11/21/16 13:05 114/64 11/21/16 12:50 121/68 11/21/16 12:35 129/79 11/21/16 12:20 129/79 11/21/16 12:05 134/76 11/21/16 11:50 143/77 11/21/16 11:35 131/87 11/21/16 11:20 130/77 11/21/16 11:05 98.7 F 20 134/76 11/21/16 10:10 98 Intake and Output 11/21/16 11/22/16 11/22/16 23:59 07:59 15:59 Intake Total 440 / 440 250 / 250 Balance 440 / 440 250 / 250 Intake: Oral 440 / 440 250 / 250 Other: Meal SUGAR FREE JELLO SOUP AND PEANUT BUTTER Percent of Meal Consumed 100% Stool Size Small Small Stool Consistency formed soft formed Stool Characteristics Seedy Normal for Patient Stool Color Brown Jim Colored Yellow Green # Bowel Movements 1 1 Weight 129.9 kg Blood Glucose* 201 196 Patient Weight 11/22/16 23:59 Weight 129.9 kg - General Appearance General appearance: Present: well-developed, well-nourished, appears started age , obese EENT: Present: mucous membranes moist Neck: Present: no JVD Respiratory: Present: clear Cardiology: Present: edema, irregular rhythm Additional Comments: mild pitting Gastrointestinal: Present: normoactive bowel sounds, no tenderness, obese Integumentary: Present: warm and dry Neurologic: Present: alert and oriented x3 Psychiatric: Present: mood/affect appropriate, cooperative - Lab 11/21/16 12:21 11/22/16 05:52 Most recent lab results Calcium 8.4 mg/dL (8.6-10.8) L 11/22/16 05:52 Magnesium 2.0 mg/dL (1.6-2.6) 11/20/16 00:57 - VTE Reasons for not Prescribing Prophylaxis: Not indicated-Anticoagulated or INR therapeutic Consult Discharge Plan - Plan Referrals: Arthur Pozo MD [Primary Care Provider] - 12/01/16 9:45 am (Please follow up as schedule..)
--- NOTE | 2016-11-22 09:54 | Internal Med Progress Note ---
<SeanDavid puckett - Last Filed: 11/22/16 11:33> Date of Encounter: 11/22/16 Time of Encounter: 09:53 - Assessment and plan (1) Atrial flutter with rapid ventricular response Current Visit: Yes Status: Acute Assessment and plan: - EKG in ED showed possible Aflutter with a rate of 147. - Patients HR remains elevated at 135 this AM. Patient admits to being non compliant on his medications. Patient has been refusing his metoprolol, amiodarone selectively, he states that he received his dose metoprolol this morning. - Patient has been mildly hypotensive, however has a mean arterial pressure of greater than 65. Patient is currently tolerating the metoprolol which he accepts. - cardiology following, appreciate recommendations. Recommending increased initiating digoxin treatment despite history of noncompliance. - Patient has been non compliant on coumadin, most recent INR is 1.6. Pharmacy will adjust dose as needed. - Multiple discussions held with patient regarding compliance and uses of all medications, and also getting dialysis as directed. - Will monitor, attempt to educate patient on necessity of medications, treat with beta ga and amiodarone as patient tolerates and accepts (2) Systolic heart failure, chronic Current Visit: Yes Status: Chronic Assessment and plan: QUIQUE on 09/03 showed EF of 20% with moderate diastolic dysfunction and RV hypokinesis - CXR in ED showed mild pulmonary edema - Patient is currently denying SOB and is SpO2 is 96% on 4 L - Plan to control BP, fluid volume with dialysis ultrafiltration this afternoon for greater removal of fluid. - Nephrology following, appreciate recommendations. Recommend continuing Wednesday dialysis schedule, received extra ultrafiltration dialysis yesterday without complications for extra removal of fluid. - Renal diet, strict I/Os (3) End stage renal disease on dialysis Current Visit: Yes Status: Chronic Assessment and plan: - BUN/ CR is 52/8.05. Patient receives dialysis Wednesday, as well as an extra ultrafiltration dialysis yesterday which he tolerated well - Nephrology following. - Will continue to monitor fluid status, renal function (4) Elevated troponin Current Visit: Yes Status: Acute Assessment and plan: Troponin in ED was 0.18 ->0.15 -> 0.13 - Likely a result of decreased renal function, increased demand from Afib - Cardiology on board, attempting to control heart rate. (5) Hypotension Current Visit: Yes Status: Chronic Assessment and plan: patient currently not hypotensive at 104/50, however he has not been taking his medications - receiving metoprolol, amiodarone. - We will continue caution when given beta ga, amiodarone given hypotension , however can also consider giving also bolus of fluid as patient is on dialysis - Cautious of fluid resuscitation given CHF exacerbation, HD patient. Qualifiers: Hypotension type: unspecified hypotension type Qualified Code(s): I95.9 - Hypotension, unspecified (6) Diabetes mellitus type 2, uncontrolled, with complications Current Visit: Yes Status: Chronic Assessment and plan: - Patient uncompliant with medications - BS of 196 this AM. 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 Will continue home dose to attempt to correct INR as long as we can obtain arterial blood draws. Patient is refusing at this time. (8) Chronic pain syndrome Current Visit: Yes Status: Acute Assessment and plan: - Patient is currently denying pain - He takes gabapentin 100 mg TID at home, we have decreased the dose to 50 mg TID with intent to decrease further due to renal insufficiency. - Tylenol 650 mg PRN pain - Caution with pain meds given patient's HoTN - Time Spent With Patient 25 - 35 minutes - Subjective Interval history: Patient was seen and examined this morning at bedside. Patient is calm and has no complaints including shortness of breath, chest pain, nausea, vomiting, fever , chills. He is selectively been refusing his medications, lab draws. He states he completed ultrafiltration dialysis yesterday without complications. His only complaint at this time is generalized weakness which he believes is secondary to intubation earlier this week. He states he is waiting until Wednesday for physical therapy and social work. - Constitutional Vitals: Temp Pulse Resp BP Pulse Ox 98.2 F 135 18 104/50 96 11/22/16 06:44 11/22/16 06:44 11/22/16 06:44 11/22/16 06:44 11/22/16 06:44 General appearance: Present: A&O X 3, answers questions appropriately Exam: Gen.: Vitals noted. No acute distress. AAOx3. Speaking in full sentences, on 4 L of oxygen HEENT: PERRL/EOMI, oropharynx clear, Normocephalic, atraumatic Neck: Supple. No adenopathy. Cardiac: Irregularly irregular rhythm, tachycardic Pulmonary: Mild wheezing diffusely. no rales or rhonchi, equal chest expansion Abdomen: soft, nontender, BS noted, no guarding Back: Nontender throughout. MSK: ROM intact, no joint swelling noted Extremities: Bilateral pitting edema 2+, nontender calf, no cyanosis or clubbing Neuro: A&Ox3, moves all extremities, no focal deficits Psych: Appropriate mood and behavior Internal Medicine: Result - Labs CBC & Chem 7: 11/21/16 12:21 11/22/16 05:52 Labs: Short CBC 11/21/16 Range/Units 12:21 WBC 7.4 (4.3-11.1) K/mcL Hgb 11.7 L (12.9-16.9) g/dL Hct 39.9 (37.5-50.1) % Plt Count 98 L (140-400) K/mcL BMP 11/21/16 11/22/16 12:21 05:52 Sodium 142 141 Potassium 4.7 H 5.1 H Chloride 102 102 Carbon Dioxide 28 29 BUN 34 H D 52 H D Creatinine 5.76 H 8.05 H Glucose 125 H 199 H Calcium 9.0 8.4 L Liver Function 11/21/16 Range/Units 12:21 Total Bilirubin 0.9 (0.2-1.2) mg/dL AST 28 (5-34) Units/L ALT 25 (0-55) Units/L Alkaline Phosphatase 508 H (38-126) Units/L Albumin 3.3 L (3.5-5.0) g/dL - ABG Interpretation ABG results: PT/INR, D-dimer PT 16.8 Seconds (9.4-12.1) H 11/22/16 05:52 - VTE Reasons for not Prescribing Prophylaxis: Not indicated-Anticoagulated or INR therapeutic Consult Discharge Plan - Plan Referrals: Arthur Pozo MD [Primary Care Provider] - 12/01/16 9:45 am (Please follow up as schedule..) <Damian Liz - Last Filed: 11/22/16 12:43> Date of Encounter: 11/22/16 - Constitutional Vitals: Temp Pulse Resp BP Pulse Ox 97.5 F L 123 18 102/66 96 11/22/16 10:28 11/22/16 10:28 11/22/16 10:28 11/22/16 10:28 11/22/16 10:43 Internal Medicine: Result - Labs CBC & Chem 7: 11/21/16 12:21 11/22/16 05:52 Labs: BMP 11/21/16 11/22/16 12:21 05:52 Sodium 142 141 Potassium 4.7 H 5.1 H Chloride 102 102 Carbon Dioxide 28 29 BUN 34 H D 52 H D Creatinine 5.76 H 8.05 H Glucose 125 H 199 H Calcium 9.0 8.4 L Liver Function 11/21/16 Range/Units 12:21 Total Bilirubin 0.9 (0.2-1.2) mg/dL AST 28 (5-34) Units/L ALT 25 (0-55) Units/L Alkaline Phosphatase 508 H (38-126) Units/L Albumin 3.3 L (3.5-5.0) g/dL - ABG Interpretation ABG results: PT/INR, D-dimer PT 16.8 Seconds (9.4-12.1) H 11/22/16 05:52 - Attending Attestation I examined this patient and my medical decision-making was reviewed with the Resident Physician on 11/22/16. I agree with the documented findings, disposition and treatment plan as described except to the extent set forth below. Patient is assessed and evaluated at the bedside Denies new complains HR remains uncontrolled, borderline BP Met with cardiology and they plan to start digoxin Patient is otherwise clinically stable INR is sub-therapeutic, pharmacy is adjusting Warfarin Physical exam: VS tachycardia, blood pressure low normal, MAP >65, alert, awake oriented, morbidly obese, Chest-S1, S2 heard, regular rate, tachycardia. Lungs with faint bibasilar crackles and posterior end expiratory wheezing. Extremities with chronic stasis dermatitis in anterior legs and chronic pedal edema. 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 Euvolemic, stable on supplemental O2, continue same. A fib with RVR, difficult to control due to low blood pressure, non-compliance, refusal of medications.continue amiodarone, metoprolol. Add digoxin. Cardiology is following. Will need to check mag daily. Warfarin will be continued and INR monitored. has refused ICD placement for his CMP in the past CHFrEF/ESRD-renal is following for HD. Elevated troponin adynamic Bilateral heel ulcers: Continue dressing DM-FS acceptable. Check A1C, continue insulin For placement to SNF Rest of details as in resident physicians documentation
[2016-11-22] MEDS: Insulin LISPRO 300 UNITS/3 ML VIAL SQ SCH ×4 (10:23→22:45)
[2016-11-22] MEDS: Insulin DETEMIR 100 UNIT/ML X5UNITS SQ SCH ×2 (10:23→22:46)
--- NOTE | 2016-11-22 10:24 | Cardiology Progress Note ---
Date of Encounter: 11/22/16 Time of Encounter: 10:00 Assessment and Plan (1) Atrial flutter with rapid ventricular response Current Visit: Yes Status: Acute Atrial flutter with RVR HR in the 140's on admission. Likely exacerbated by missing multiple doses of carvedilol after leaving hospital [facility]. Home meds restarted. On carvedilol 6.25 mg BID and amiodarone 200 mg BID. Carvedilol changed to metoprolol 50 mg BID 11/19/16. Metoprolol increased yesterday. Patient refusing medications at times. B/p low at times. I discussed compliance and importance of taking medications and being compliant with dialysis. TTE 09/03/16 showed reduced EF at 20%, moderate diastolic dysfunction, moderate RV hypokenesis, no pulmonary hypertension. There was a small pericardial effusion with no evidence of tamponade. EF mildly reduced from previous. EF 35% 01/2016. Will recheck limited TTE to assess pericardial effusion. TSH 09/2015 was normal. Avg HR over 24 hours was 132bpm. Continue to increase metoprolol as tolerated. Discussed with Dr. Millan. Will start digoxin load at 50% reduced dose d/t ESRD. Start oral digoxin if indicated, 0.125 mg QOD, to be given after dialysis. May need QUIQUE with DCCV if unable to control. Patient states that he would decline procedure and would like no procedures requiring sedation. Continue Coumadin for anticoagulation- pt noted to be likely non-complaint with coumadin. INR sub-therapeutic on admit. Hospitalist currently dosing. Increasing as needed. He is not a candidate for NOAC. (2) CHF exacerbation Current Visit: Yes Status: Acute Acute on chronic systolic CHF. Known non-ischemic cardiomyoapthy. EF 20%. CXR shows mild pulmonary edema. ESRD on dialysis. Fluid management per nephrology. Negative 3200 ml for 24 hours with repeat dialysis yesterday. Pt reports improvement. CHF education reviewed. Low sodium diet. Daily weights and strict I&O. Continue BB. No ACEi d/t kidney disease and due to low blood pressure. Qualifiers: Congestive heart failure type: systolic Qualified Code(s): I50.23 - Acute on chronic systolic (congestive) heart failure (3) Elevated troponin Current Visit: Yes Status: Acute Mild flat troponin elevation noted. Patient denies chest pain. Chronic troponin elevation in the setting of end-stage renal disease and CHF. Discussion w patient/family: The assessment and plan as outlined above was discussed with the patient and/or family members who expressed understanding and agreement. All questions were answered. Thank you for involving us in the care of your patient. Please call with any questions. Plan of care and recommendations discussed with Dr. Millan. Subjective Principal diagnosis: aflutter with RVR Interval history: Reports he is feeling better after repeat dialysis. Continues to have dry cough. Compliance with medications discussed. He states he refuses meds before dialysis because he thought he was suppose to hold. He says he would take at other times. He is noted to refuse PM medications as well. Objective Vital Signs, Last 4 Hours Temp Pulse Resp BP Pulse Ox 11/22/16 06:44 98.2 F 135 18 104/50 96 General: Conversant, No Apparent Distress HEENT: Atraumatic, Normocephaly, Mucus Membranes Moist Neck: No JVD, Normal carotid pulses Cardiac: Other (irregularly irregular) Lungs: No Wheeze, Rales, Rhonchi, Other (diminished bases, respirations easy) Neuro: Alert and responsive, No focal deficits noted Abdomen: Soft, Non-Tender Skin: No rashes noted on visualized skin Musculoskeletal: No Chest Wall Tenderness Extremities: No Clubbing, No Cyanosis, Normal Pulses, Other (Non-pitting edema improved from yesterday, BLE discoloration stable.) Results 11/21/16 12:21 11/22/16 05:52 Lab Results 11/21/16 11/21/16 11/21/16 12:21 12:21 12:21 WBC 7.4 Hgb 11.7 L Hct 39.9 Plt Count 98 L INR 1.4 Sodium 142 Potassium 4.7 H Chloride 102 Carbon Dioxide 28 BUN 34 H D Creatinine 5.76 H Glucose 125 H Calcium 9.0 Total Bilirubin 0.9 AST 28 ALT 25 Alkaline Phosphatase 508 H 11/22/16 11/22/16 05:52 05:52 WBC Hgb Hct Plt Count INR 1.5 Sodium 141 Potassium 5.1 H Chloride 102 Carbon Dioxide 29 BUN 52 H D Creatinine 8.05 H Glucose 199 H Calcium 8.4 L Total Bilirubin AST ALT Alkaline Phosphatase - VTE Reasons for not Prescribing Prophylaxis: Not indicated-Anticoagulated or INR therapeutic Consult Discharge Plan - Plan Referrals: Arthur Pozo MD [Primary Care Provider] - 12/01/16 9:45 am (Please follow up as schedule..)
[2016-11-22] MEDS: Calcium Acetate 667 MG CAPSULE PO SCH ×3 (10:27→17:49)
[2016-11-22] MEDS: Pregabalin 50 MG CAPSULE PO SCH ×3 (10:27→22:46)
[2016-11-22] MEDS: *HR* Amiodarone 200 MG TABLET PO SCH (10:28)
[2016-11-22] MEDS: Nicotine 14 MG PATCH.TD24 TD SCH (10:28)
[2016-11-22] MEDS: Renal Vitamin 1 MG CAPSULE PO SCH (10:28)
[2016-11-22] MEDS: Ipratropium Neb 0.5 MG NEBULIZER IH SCH ×2 (11:54→19:26)
[2016-11-22] MEDS: Budesonide/Formoterol 160/4.5 MDI IH SCH ×2 (11:54→20:36)
[2016-11-22] MEDS: Levalbuterol Neb 0.63 MG/3 ML IH SCH ×2 (11:54→19:27)
[2016-11-22] MEDS: *HR* Digoxin 0.5 MG/2 ML AMPUL IVP SCH ×2 (14:09→17:49)
[2016-11-22] MEDS ORDERED: *HR* Warfarin 10 MG TABLET PO ONE (18:00)
[2016-11-22] MEDS: Benzonatate 100 MG CAPSULE PO PRN (22:47)
[2016-11-23] MEDS: Ipratropium Neb 0.5 MG NEBULIZER IH SCH ×3 (00:05→16:10)
[2016-11-23] MEDS: Levalbuterol Neb 0.63 MG/3 ML IH SCH ×3 (00:05→16:10)
[2016-11-23 05:19] LABS: Hemoglobin 10.7 g/dL (12.9-16.9); Mean Platelet Volume 11.8 fL (9.4-12.4)
[2016-11-23 05:20] LABS: Hematocrit 36.3 % (37.5-50.1); Mean Corpuscular HGB Conc 29.5 g/dL (31.6-35.5); Mean Corpuscular Hemoglobin 28.7 pg (28.0-33.3); Mean Corpuscular Volume 97.3 fL (83.0-100.0); Red Blood Count 3.73 M/mcL (4.19-5.50); Red Cell Distribution Width 22.3 % (11.5-14.5)
[2016-11-23 05:29] LABS: Platelet Count 93 K/mcL (140-400)
[2016-11-23 05:32] LABS: Calcium 8.7 mg/dL (8.6-10.8); Potassium 5.6 mEq/L (3.5-4.5)
[2016-11-23 05:58] LABS: INR 1.7; Prothrombin Time 18.3 Seconds (9.4-12.1)
[2016-11-23] MEDS: Metoprolol 100 MG TABLET PO SCH ×2 (06:30→17:45)
[2016-11-23] MEDS ORDERED: 0.9 % Sodium Chloride 250 ML IVC PRN (08:19)
--- NOTE | 2016-11-23 08:19 | Nephrology Progress Note ---
Date of Encounter: 11/23/16 Time of Encounter: 08: - Assessment and Plan (1) End stage renal disease on dialysis Current Visit: Yes Status: Chronic The patient will undergo dialysis today. Orders have been submitted. (2) Nonischemic cardiomyopathy Current Visit: No Status: Chronic (3) Atrial fibrillation Current Visit: No Status: Acute Qualifiers: Atrial fibrillation type: paroxysmal Qualified Code(s): I48.0 - Paroxysmal atrial fibrillation Subjective Principal diagnosis: aflutter with RVR Interval history: Patient is resting comfortably. He voices no complaints. Objective - Vital Signs Vital signs: Vital Signs Temp Pulse Resp BP Pulse Ox 11/23/16 07:07 97.8 F 124 20 93/62 94 11/23/16 03:27 98.4 F 128 16 98/59 100 11/22/16 20:21 97.8 F 128 20 113/64 96 11/22/16 16:11 97.6 F 115 18 90/59 99 11/22/16 10:43 96 11/22/16 10:28 97.5 F L 123 18 102/66 96 Intake and Output 11/22/16 11/23/16 11/23/16 23:59 07:59 15:59 Intake Total 240 / 240 Balance 240 / 240 Intake: Oral 240 / 240 Other: Weight 131.4 kg Blood Glucose* 199 81 Patient Weight 11/23/16 23:59 Weight 131.4 kg - General Appearance Exam: Lungs demonstrate diminished breath sounds. Heart irregular rate and rhythm. Abdomen is obese. There is no tenderness. There is 1+ lower extremity swelling. There is a functioning AV fistula in the left upper extremity. - Lab 11/23/16 05:00 11/23/16 05:00 Most recent lab results Calcium 8.7 mg/dL (8.6-10.8) 11/23/16 05:00 Magnesium 2.0 mg/dL (1.6-2.6) 11/20/16 00:57 - VTE Reasons for not Prescribing Prophylaxis: Not indicated-Anticoagulated or INR therapeutic Consult Discharge Plan - Plan Referrals: Arthur Pozo MD [Primary Care Provider] - 12/01/16 9:45 am (Please follow up as schedule..)
[2016-11-23] MEDS: Insulin LISPRO 300 UNITS/3 ML VIAL SQ SCH ×4 (08:23→21:33)
[2016-11-23] MEDS: Renal Vitamin 1 MG CAPSULE PO SCH (09:24)
[2016-11-23] MEDS: Pregabalin 50 MG CAPSULE PO SCH ×3 (09:24→21:33)
[2016-11-23] MEDS: Calcium Acetate 667 MG CAPSULE PO SCH ×3 (09:25→17:44)
[2016-11-23] MEDS: *HR* Amiodarone 200 MG TABLET PO SCH (09:26)
[2016-11-23] MEDS: Nicotine 14 MG PATCH.TD24 TD SCH (09:29)
[2016-11-23] MEDS: Insulin DETEMIR 100 UNIT/ML X5UNITS SQ SCH ×2 (09:38→21:22)
--- NOTE | 2016-11-23 12:05 | Cardiology Progress Note ---
Date of Encounter: 11/23/16 Time of Encounter: 12:03 Assessment and Plan (1) Atrial flutter with rapid ventricular response Current Visit: Yes Status: Acute Atrial flutter with RVR HR in the 140's on admission. Likely exacerbated by missing multiple doses of carvedilol after leaving hospital [place]. Home meds restarted. Carvedilol changed to metoprolol secondary to low blood pressure. Patient took all medications yesterday. TTE 09/03/16 showed reduced EF at 20%, moderate diastolic dysfunction, moderate RV hypokenesis, no pulmonary hypertension. There was a small pericardial effusion with no evidence of tamponade. EF mildly reduced from previous. EF 35% 01/2016. Limited TTE this admission to check pericardial effusion showed no change. Continues to have small pericardial effusion with evidence of tamponade. EF 15- 20%. TSH 09/2015 was normal. Avg HR over 24 hours was 123bpm. Continue amiodarone and lopressor. Loaded with IV digoxin yesterday without much improvement. Will not start oral at this time. Discussed with Dr. Tong, we will re-load with IV amiodarone. Question compliance with amiodarone in out-pt setting. Patient often refusing meds here. QUIQUE with DCCV will be recommended if unable to control. Patient states that he would decline procedure and would like no procedures requiring sedation here at [facility]. Will consider offer to transfer to another facility if he declines. Continue Coumadin for anticoagulation- pt noted to be likely non-complaint with coumadin. INR sub-therapeutic on admit. Hospitalist currently dosing. Increasing as needed. He is not a candidate for NOAC. (2) CHF exacerbation Current Visit: Yes Status: Acute Acute on chronic systolic CHF. Known non-ischemic cardiomyopathy. EF 15-20%. CXR shows mild pulmonary edema. ESRD on dialysis. Fluid management per nephrology. Receiving dialysis today with fluid removal. CHF education reviewed. Importance of compliance with dialysis reviewed. Patient states he is currently at [facility] and he should have no problem with transportation to dialysis. Low sodium diet. Daily weights and strict I&O. Continue BB. No ACEi d/t kidney disease and due to low blood pressure. Qualifiers: Congestive heart failure type: systolic Qualified Code(s): I50.23 - Acute on chronic systolic (congestive) heart failure (3) Elevated troponin Current Visit: Yes Status: Acute Mild flat troponin elevation noted. Patient denies chest pain. Chronic troponin elevation in the setting of end-stage renal disease and CHF. Discussion w patient/family: The assessment and plan as outlined above was discussed with the patient and/or family members who expressed understanding and agreement. All questions were answered. Thank you for involving us in the care of your patient. Please call with any questions. Plan of care and recommendations discussed with Dr. Millan. Subjective Principal diagnosis: aflutter with RVR Interval history: Unable to fully assess patient. Currently in dialysis. Objective Vital Signs, Last 4 Hours Pulse Ox 11/23/16 10:27 94 HEENT: Atraumatic, Normocephaly, Mucus Membranes Moist Cardiac: Other (respirations easy) Lungs: Other (Irregularly irregular) Skin: Other (BLE extremity discolored. ) Results 11/23/16 05:00 11/23/16 05:00 Lab Results 11/23/16 11/23/16 11/23/16 05:00 05:00 05:00 WBC 9.0 Hgb 10.7 L Hct 36.3 L Plt Count 93 L INR 1.7 Sodium 140 Potassium 5.6 H Chloride 101 Carbon Dioxide 32 H BUN 70 H D Creatinine 9.70 H Glucose 118 H Calcium 8.7 - VTE Reasons for not Prescribing Prophylaxis: Not indicated-Anticoagulated or INR therapeutic Consult Discharge Plan - Plan Referrals: Arthur Pozo MD [Primary Care Provider] - 12/01/16 9:45 am (Please follow up as schedule..)
[2016-11-23] MEDS ORDERED: Amiodarone Premix 150 MG/100 ML BAG IVPB ONE (13:56)
[2016-11-23] MEDS ORDERED: Amiodarone Premix 360 MG/200 ML BAG IVC ONE (13:56)
[2016-11-23] MEDS: Budesonide/Formoterol 160/4.5 MDI IH SCH ×2 (14:29→22:32)
[2016-11-23] MEDS ORDERED: 0.9 % Sodium Chloride 2,000 ML ONE (14:43)
--- NOTE | 2016-11-23 15:41 | Internal Med Progress Note ---
<David Diamond - Last Filed: 11/23/16 18:12> Date of Encounter: 11/23/16 Time of Encounter: 10:00 - Assessment and plan (1) Atrial flutter with rapid ventricular response Current Visit: Yes Status: Acute Assessment and plan: - EKG in ED showed possible Aflutter with a rate of 147. - Patients HR remains elevated at 128 this AM. - Patient has been mildly hypotensive, however has a mean arterial pressure of greater than 65. Patient is currently tolerating metoprolol which he accepts. - cardiology following, appreciate recommendations. Recommends starting amiodarone drip after hemodialysis this afternoon, patient will be transferred to [facility]. for telemetry monitoring - Patient has been non compliant on coumadin, most recent INR is 1.6. Pharmacy will adjust dose as needed. - Multiple discussions held with patient regarding compliance and uses of all medications, and also getting dialysis as directed. - Will monitor, attempt to educate patient on necessity of medications, treat with beta ga and amiodarone as patient tolerates and accepts (2) Systolic heart failure, chronic Current Visit: Yes Status: Chronic Assessment and plan: QUIQUE on 09/03 showed EF of 20% with moderate diastolic dysfunction and RV hypokinesis - CXR in ED showed mild pulmonary edema - Patient is currently denying SOB and is SpO2 is 100% on 4 L - Plan to control BP, fluid volume - Nephrology following, appreciate recommendations. Recommend continuing Wednesday dialysis schedule - Renal diet, strict I/Os (3) End stage renal disease on dialysis Current Visit: Yes Status: Chronic Assessment and plan: - BUN/ CR is 70/9.70. Patient receives dialysis Wednesday. Patient underwent hemodialysis session and accommodations. - Nephrology following. - Will continue to monitor fluid status, renal function - Patient did have an episode of confusion, decreased alertness this morning. Likely results of uremia. Patient is back to baseline after receiving hemodialysis this afternoon (4) Elevated troponin Current Visit: Yes Status: Acute Assessment and plan: Troponin in ED was 0.18 ->0.15 -> 0.13 - Likely a result of decreased renal function, increased demand from Afib - Cardiology on board, attempting to control heart rate with beta ga, amiodarone, digoxin. (5) Hypotension Current Visit: Yes Status: Chronic Assessment and plan: patient currently not hypotensive at 98/59, however he has not been taking his medications - receiving metoprolol, amiodarone. Radiology will initiate a amiodarone drip at this afternoon - Cautious of fluid resuscitation given CHF exacerbation, HD patient. Qualifiers: Hypotension type: unspecified hypotension type Qualified Code(s): I95.9 - Hypotension, unspecified (6) Diabetes mellitus type 2, uncontrolled, with complications Current Visit: Yes Status: Chronic Assessment and plan: - Patient uncompliant with medications - BS of 196 this AM. - A1c of 7.1% - SSI as needed for BS control Qualifiers: Diabetes mellitus intermediate teacher insulin use: with nursing home use Qualified Code( s): E11.8 - Type 2 diabetes mellitus with unspecified complications; E11.65 - Type 2 diabetes mellitus with hyperglycemia; Z79.4 - jail (current) use of insulin (7) DVT prophylaxis Current Visit: Yes Status: Acute Assessment and plan: - Hx of DVT - Patient is on coumadin for AFib/ Flutter, however non compliant - INR 1.7. Will continue home dose to attempt to correct INR as long as we can obtain arterial blood draws. (8) Chronic pain syndrome Current Visit: Yes Status: Acute Assessment and plan: - Patient is currently denying pain - He takes gabapentin 100 mg TID at home, we have decreased the dose to 50 mg TID with intent to decrease further due to renal insufficiency. - Tylenol 650 mg PRN pain - Caution with pain meds given patient's HoTN - Time Spent With Patient 25 - 35 minutes - Subjective Interval history: Patient was seen and examined this morning at bedside. Patient was very lethargic this morning, and was only responsive to noxious stimuli. He slowly regained awareness, however remained confused. Patient is to receive dialysis today and will be reassessed upon return After dialysis, patient has returned to baseline mentation. He has no major complaints at this time. - Constitutional Vitals: Temp Pulse Resp BP Pulse Ox 97.3 F L 124 22 94/40 94 11/23/16 11:25 11/23/16 07:07 11/23/16 11:25 11/23/16 15:25 11/23/16 10:27 General appearance: Present: A&O X 3, answers questions appropriately Exam: Gen.: Vitals noted. No acute distress. A and O 2 HEENT: PERRL/EOMI, oropharynx clear, Normocephalic, atraumatic Neck: Supple. No adenopathy. Cardiac: RRR, no murmur, +S1/S2 Pulmonary: Mild diffuse wheezing. equal chest expansion Abdomen: soft, nontender, BS noted, no guarding Back: Nontender throughout. MSK: ROM intact, no joint swelling noted Extremities: Bilateral 2+ pitting edema, nontender calf, no cyanosis or clubbing Neuro: A&Ox2, moves all extremities, no focal deficits Psych: Poor insight and judgment. Internal Medicine: Result - Labs CBC & Chem 7: 11/23/16 05:00 11/23/16 05:00 Labs: Short CBC 11/23/16 Range/Units 05:00 WBC 9.0 (4.3-11.1) K/mcL Hgb 10.7 L (12.9-16.9) g/dL Hct 36.3 L (37.5-50.1) % Plt Count 93 L (140-400) K/mcL BMP 11/23/16 05:00 Sodium 140 Potassium 5.6 H Chloride 101 Carbon Dioxide 32 H BUN 70 H D Creatinine 9.70 H Glucose 118 H Calcium 8.7 - ABG Interpretation ABG results: PT/INR, D-dimer PT 18.3 Seconds (9.4-12.1) H 11/23/16 05:00 - VTE Reasons for not Prescribing Prophylaxis: Not indicated-Anticoagulated or INR therapeutic Consult Discharge Plan - Plan Referrals: Arthur Pozo MD [Primary Care Provider] - 12/01/16 9:45 am (Please follow up as schedule..) <Damian Liz T - Last Filed: 11/23/16 18:19> Date of Encounter: 11/23/16 - Constitutional Vitals: Temp Pulse Resp BP Pulse Ox 97.1 F L 128 18 117/98 90 11/23/16 16:32 11/23/16 16:32 11/23/16 16:32 11/23/16 16:32 11/23/16 16:32 Internal Medicine: Result - Labs CBC & Chem 7: 11/23/16 05:00 11/23/16 05:00 Labs: Short CBC 11/23/16 Range/Units 05:00 WBC 9.0 (4.3-11.1) K/mcL Hgb 10.7 L (12.9-16.9) g/dL Hct 36.3 L (37.5-50.1) % Plt Count 93 L (140-400) K/mcL [facility] 11/23/16 05:00 Sodium 140 Potassium 5.6 H Chloride 101 Carbon Dioxide 32 H BUN 70 H D Creatinine 9.70 H Glucose 118 H Calcium 8.7 - ABG Interpretation ABG results: PT/INR, D-dimer PT 18.3 Seconds (9.4-12.1) H 11/23/16 05:00 - Attending Attestation I examined this patient and my medical decision-making was reviewed with the Resident Physician on 11/23/16. I agree with the documented findings, disposition and treatment plan as described except to the extent set forth below. Patient is assessed and evaluated at the bedside He was confused this morning, oriented to place and person only but rapidly recovered and requesting to go to the bathroom. He has no new complains His HR has improved but remains uncontrolled despite digitalization. Cardiology has decided to load with amiodarone again. Physical exam: VS tachycardia, blood pressure low normal, MAP >65, deeply asleep but rousable orientedX2, morbidly obese, Chest-S1, S2 heard, regular rate , tachycardia. Lungs with faint bibasilar crackles and posterior end expiratory wheezing. Extremities with chronic stasis dermatitis in anterior legs and chronic pedal edema. L heel with blister suspected unstageable ulcer, and R foot with at least stage I decubitus ulcer Labs and Imaging reviewed: CBC stable, INR 1.7, Chem acceptable-pre HD A/P Acute on chronic respiratory failure-multifactorial due to underlying ESRD, COPD , ZAINAB, CHF. Euvolemic, stable on supplemental O2, continue same. Ensure CPAP at night A fib with RVR, difficult to control due to low blood pressure, non-compliance, refusal of medications. Continue amiodarone, metoprolol. Cardiology is following. Follow recommendations. Warfarin will be continued and INR monitored. has refused ICD placement for his CMP in the past CHFrEF/ESRD-renal is following for HD. Elevated troponin adynamic Bilateral heel ulcers: Continue dressing DM-FS acceptable. Check A1C, continue insulin For placement to SNF Rest of details as in resident physicians documentation
[2016-11-23] MEDS ORDERED: *HR* Warfarin 7.5 MG TABLET PO ONE (18:00)
[2016-11-23] MEDS: Amiodarone Premix 360 MG/200 ML BAG IVC SCH (22:35)
[2016-11-23] MEDS: Benzonatate 100 MG CAPSULE PO PRN (23:59)
[2016-11-24] MEDS: Levalbuterol Neb 0.63 MG/3 ML IH SCH ×4 (03:50→22:15)
[2016-11-24] MEDS: Ipratropium Neb 0.5 MG NEBULIZER IH SCH ×4 (03:50→22:15)
[2016-11-24 05:39] LABS: Hemoglobin 10.4 g/dL (12.9-16.9); Mean Corpuscular HGB Conc 28.9 g/dL (31.6-35.5); Mean Corpuscular Volume 96.8 fL (83.0-100.0); Mean Platelet Volume 12.2 fL (9.4-12.4); Platelet Count 104 K/mcL (140-400); Red Blood Count 3.72 M/mcL (4.19-5.50); Red Cell Distribution Width 21.5 % (11.5-14.5)
[2016-11-24 05:42] LABS: INR 2.4; Prothrombin Time 26.2 Seconds (9.4-12.1)
[2016-11-24 06:03] LABS: Albumin 2.8 g/dL (3.5-5.0); Albumin/Globulin Ratio 0.8 (1.1-2.2); Bilirubin,Total 0.7 mg/dL (0.2-1.2); Calcium 8.5 mg/dL (8.6-10.8); Globulin 3.7 g/dL (2.4-3.5); Magnesium 1.9 mg/dL (1.6-2.6); Total Protein 6.5 g/dL (6.0-8.3)
[2016-11-24 06:04] LABS: Potassium 4.5 mEq/L (3.5-4.5)
[2016-11-24] MEDS: Metoprolol 100 MG TABLET PO SCH (06:34)
[2016-11-24] MEDS: Insulin LISPRO 300 UNITS/3 ML VIAL SQ SCH ×4 (07:55→20:48)
[2016-11-24] MEDS: Insulin DETEMIR 100 UNIT/ML X5UNITS SQ SCH ×2 (07:55→21:02)
[2016-11-24] MEDS: *HR* Amiodarone 200 MG TABLET PO SCH (07:56)
[2016-11-24] MEDS: Pregabalin 50 MG CAPSULE PO SCH ×3 (07:56→20:46)
[2016-11-24] MEDS: Renal Vitamin 1 MG CAPSULE PO SCH (07:56)
[2016-11-24] MEDS: Nicotine 14 MG PATCH.TD24 TD SCH (07:56)
[2016-11-24] MEDS: Calcium Acetate 667 MG CAPSULE PO SCH ×3 (07:56→17:27)
--- NOTE | 2016-11-24 10:20 | Cardiology Progress Note ---
Date of Encounter: 11/24/16 Time of Encounter: 10:17 Assessment and Plan (1) Atrial flutter with rapid ventricular response Current Visit: Yes Status: Acute Atrial flutter with RVR HR in the 140's on admission. Likely exacerbated by missing multiple doses of carvedilol after leaving hospital [facility]. Home meds restarted. TTE 09/03/16 showed reduced EF at 20%, moderate diastolic dysfunction, moderate RV hypokenesis, no pulmonary hypertension. There was a small pericardial effusion with no evidence of tamponade. EF mildly reduced from previous. EF 35% 01/2016. Limited TTE this admission to check pericardial effusion showed no change. Continues to have small pericardial effusion with evidence of tamponade. EF 15- 20%. TSH 09/2015 was normal. Carvedilol changed to metoprolol secondary to low blood pressure. Loaded with digoxin and reloaded with IV amiodarone during stay. HR continues to be 110-120. Avg HR over 12 hours was 106 BPM. HR improved but continues to have afib with RVR. Unable to increase lopressor due to hypotension. Unable to add cardizem due to cardiomyopathy. Continue IV amiodarone through today per protocol. I had a long discussion about recommendation for QUIQUE with DCCV to attempt restoring NSR. Patient declines procedure and would like no procedures requiring sedation or inavasive procedures due to previous bad experience. I discussed transfer to outside facility such as [facility] to be treated for aflutter and have possible DCCV there. He declines and would not like procedure either way. I discussed poor prognosis if we cannot control heart rate and he voiced understanding. Systolic function continues to decline, likely secondary to tachycardia. He continues to have persistent fluid overload despite fluid removal with dialysis. Palliative care consult to discuss nursing home goals recommended. he is still a full code. He agrees with consult. Continue Coumadin for anticoagulation-primary team dosing. (2) CHF exacerbation Current Visit: Yes Status: Acute Acute on chronic systolic CHF. Known non-ischemic cardiomyopathy. EF 15-20%. CXR shows mild pulmonary edema. ESRD on dialysis. Fluid management per nephrology. Dialysis yesterday with fluid removal. Patient asking for re-peat dialysis. Continues to have SOB and fluid overload. Noted to be adding salt to food. CHF education reviewed. Importance of compliance discussed. Palliative care consult. Daily weights and strict I&O. Continue BB. No ACEi d/t kidney disease and due to low blood pressure. Qualifiers: Congestive heart failure type: systolic Qualified Code(s): I50.23 - Acute on chronic systolic (congestive) heart failure (3) Elevated troponin Current Visit: Yes Status: Acute Mild flat troponin elevation noted. Patient denies chest pain. Chronic troponin elevation in the setting of end-stage renal disease and CHF. Discussion w patient/family: The assessment and plan as outlined above was discussed with the patient and/or family members who expressed understanding and agreement. All questions were answered. Thank you for involving us in the care of your patient. Please call with any questions. Plan of care and recommendations discussed with Dr. Millan. Subjective Principal diagnosis: aflutter with RVR Interval history: Mr. Hatch is resting in bed. No distress noted. Denies chest pain. Continues to c/o fluid overload and SOB. SPO2 decreased to 80 % when he removed his oxygen. Objective Vital Signs, Last 4 Hours Temp Pulse Resp BP Pulse Ox 11/24/16 07:55 111 11/24/16 07:41 98.7 F 115 18 103/74 100 11/24/16 06:35 101/78 General: Conversant, No Apparent Distress HEENT: Atraumatic, Mucus Membranes Moist Neck: No JVD, Normal carotid pulses Cardiac: Other (Irregularly irregular) Lungs: Other (Respirations easy, spo2 noted ot decrease while patient eating. ) Neuro: Alert and responsive, No focal deficits noted Skin: Other (Diaphoretic, BLE with hardened skin and discoloration.) Extremities: Other (ABdomen distended and continues to have BLE edema.) Results 11/24/16 04:49 11/24/16 04:49 Lab Results 11/24/16 11/24/16 11/24/16 04:49 04:49 04:49 WBC 7.4 Hgb 10.4 L Hct 36.0 L Plt Count 104 L INR 2.4 Sodium 141 Potassium 4.5 D Chloride 99 Carbon Dioxide 33 H BUN 48 H D Creatinine 7.40 H Glucose 96 Calcium 8.5 L Magnesium 1.9 Total Bilirubin 0.7 AST 20 ALT 16 Alkaline Phosphatase 446 H - VTE Reasons for not Prescribing Prophylaxis: Not indicated-Anticoagulated or INR therapeutic Consult Discharge Plan - Plan Referrals: Arthur Pozo MD [Primary Care Provider] - 12/01/16 9:45 am (Please follow up as schedule..)
[2016-11-24] MEDS: Amiodarone Premix 360 MG/200 ML BAG IVC SCH ×2 (10:36→23:04)
[2016-11-24] MEDS: Budesonide Neb 0.25 MG/2 ML IH SCH ×2 (10:52→22:15)
--- NOTE | 2016-11-24 11:25 | Palliative - Consult Note ---
Date of Encounter: 11/24/16 Time of Encounter: 10:45 - Assessment and Plan (1) Fluid overload Current Visit: No Status: Acute Assessment and plan: Patient is being followed by nephrology, he wishes to continue getting dialysis. Elo per nephrology and hospitalist team. Qualifiers: Hypervolemia type: unspecified Qualified Code(s): E87.70 - Fluid overload, unspecified (2) End stage renal disease on dialysis Current Visit: Yes Status: Chronic Assessment and plan: As already noted the patient wishes to continue his dialysis. He feels that it is helping him. As per nephrology and hospitalist team (3) COPD exacerbation Current Visit: No Status: Acute Assessment and plan: The patient feels his breathing is doing much better. Plan per hospitalist team continue current meds. (4) Goals of care, counseling/discussion Current Visit: No Status: Acute Assessment and plan: The patient wishes to be a full code. I discussed this at length with him and he wishes to be a full code. Not done advanced directives he would nominate his sons and or Raoul to be his medical power of attorney recruiter, he does not have their phone numbers. I will discuss further with diet with social work. I believe the plan is for him to go to [facility] in [place] for further rehabilitation and then to go home. As the patient wishes to have rehabilitation, wishes to continue his dialysis he is clearly not hospice eligible at this time. Palliative care was consulted regarding status and goals of care. At this time the patient wishes to be a full code and his goals of care are to pursue rehabilitation at [facility], to continue getting his dialysis. Have made recommendations regarding his chronic neurogenic pain in both legs. This time palliative has nothing further to offer and the discharge planning has already taken place with regards to [facility]. We will sign off, please feel free to reconsult us if we can help in any way. (5) Chronic pain syndrome Current Visit: Yes Status: Acute Assessment and plan: Patient has very neurogenic sounding pain in both legs from the knees down. He is currently on Lyrica 50 mg 3 times a day is not enough of a difference between Lyrica and gabapentin to recommend trying that as well. Patient is already on Cymbalta supposedly at 60 mg per day at home, however after consultation with the seems that he is not taking this at all. I would recommend restarting it at 30 mg a day and titrating upward. Palliative-CN HPI - Data of Consult Patient: new to practice Requesting Physician: Misty Braun Primary Care Provider: Arthur Pozo MD - Consult Narrative Palliative Care/Comfort Measures: Palliative care History of present illness: Mr. Hatch is a 45 year old male With end-stage renal disease on dialysis fib flutter history of diabetes. The patient was just in the hospital recently respiratory failure been intubated and shortly after extubation he signed out AMA. Patient had been for congestive heart failure fluid overload and respiratory failure. He should then hours later reappeared at the emergency department complaining of shortness of breath asked x-ray showed that he was in mild pulmonary edema G showed atrial fibrillation with a rapid ventricular response in the 120s. Was very short of breath at the time. He agreed to hospitalization at the time. This time palliative care is consulted by cardiology regarding the patient's noncompliance and refusal to have cardioversion in light of the fact that his medications are not working for him. Addition it appears from reviewing the records that he has been refusing some medications. Care was consulted regarding possible hospice and is of care. The patient states at this time his breathing is much better. No chest pain no shortness of breath. He does have very sharp unremittent pain from his knees to his feet [place] to diabetic nerve pain which she has had for a long time. He states that the medications do not seem to do very much for him. It is made worse by movement or touch its better with rest but does not go away completely medications help to some degree. [place] any other pain at this time. She is having no difficulty swallowing no difficulty with eating he states he is not constipated has no abdominal pain no other problems at this time. CC: Misty Braun Shortness of breath Past Med Surg Social Fam HX - Past Medical History Medical history: arthritis, cardiomyopathy, CHF, COPD, diabetes, dialysis, GERD , hyperlipidemia, hypertension, osteoporosis, renal disease, other Psychiatric history: anxiety, depression, other - Past Surgical History Surgical History: herniorrhaphy, vascular surgery, other - Social History Smoking Status: Current every day smoker Smokeless Tobacco Status: No Alcohol use: none, unknown Drug use: marijuana, other - Family History Father Living Status: Hx Family Cardiac Disorders: No Hx Family Respiratory Disorders: No Hx Family Cancer: No Hx Family GI Disorders: No Hx Family Endocrine Disorder: No Hx Family Neuromuscular Disorders: No Hx Family Neurologic Disorders: No Hx Family HEENT Disorders: No Hx Family Autoimmune Disorders: No Mother Adopted: No Living Status: Still Living Hx Family Cardiac Disorders: Yes Hx Family Endocrine Disorder: Yes Medications and Allergies Insulin Glargine,Hum.rec.anlog [Lantus Solostar] 30 unit SQ BID #0 01/07/15 [ History] [place] Oil/[place]-3 Fatty Acids [Fish Oil 500 mg Softgel] 1 cap PO DAILY #0 [History] Carvedilol [Coreg] 12.5 mg PO BIDWM 01/24/16 [History] Duloxetine HCl [Cymbalta] 60 mg PO DAILY 01/24/16 [History] Renal Vitamin [Renal Caps Softgel] 1 mg PO DAILY 01/24/16 [History] Ammonium Lactate 1 appl TP BID PRN 09/02/16 [History] Cinacalcet HCl [Sensipar] 120 mg PO DAILY 09/02/16 [History] hydrALAZINE [HydrALAZINE] 25 mg PO BID 09/02/16 [History] Amiodarone [Cordarone] 200 mg PO BID tablet 09/19/16 [Rx] Docusate [Colace] 100 mg PO BID PRN #0 capsule 09/19/16 [Rx] Ipratropium Neb [Atrovent Neb] 0.5 mg IH TIDR inhsol 09/19/16 [Rx] Levalbuterol Neb [Xopenex Neb] 0.63 mg IH TIDR vial.neb 09/19/16 [Rx] Tetrahydrozoline [Visine] 1 drop BOTH EYES QID PRN 09/29/16 [History] Warfarin [Coumadin] 5 mg PO Q48H 09/29/16 [History] Warfarin [Coumadin] 7.5 mg PO Q48H 09/29/16 [History] Atorvastatin [Lipitor] 40 mg PO HS 11/16/16 [History] Budesonide/Formoterol 160/4.5 [Symbicort 160/4.5] 2 puff IH BIDR PRN 11/16/16 [ History] Calcium Acetate [Phos-LO] 2,668 mg PO TIDWM 11/16/16 [History] Ethyl Chloride 1 unit TP MOWEFR 11/16/16 [History] Nicotine Patch [Nicoderm] 14 mg TD DAILY 11/16/16 [History] Omeprazole [PriLOSEC] 20 mg PO DAILY 11/16/16 [History] Oxygen 2 l NS AD 11/16/16 [History] Pregabalin [Lyrica] 100 mg PO TID 11/16/16 [History] Allergies hydrocodone [From [place]] Allergy (Intermediate, Verified 09/29/16 16:59) Hives lanolin [From [employer]ri-L[employer] S.O.P[employer] Adverse Reaction (Verified 11/18/16 10:51) Swelling of the Eye CAUSES IRRITATION/REDNESS TO EYE. PATIENT REQUESTS NOT TO HAVE WHEN HE IS INTUBATED. mineral oil [From [employer]ri-Lube S.O.P[employer] Adverse Reaction (Verified 11/18/16 10:50) Swelling of the Eye petrolatum,white [From Lacri-Lube S.O.P.] Adverse Reaction (Verified 11/18/16 10 :50) Swelling of the Eye All systems: reviewed and no additional remarkable complaints except as stated ( We see the history of present illness. The patient does have diabetes, does have diabetic nerve pain in both feet did have palpitations and shortness of breath but these have resolved.) Palliative Care-Exam - Constitutional Vitals: Temp Pulse Resp BP Pulse Ox 98.5 F 100 18 121/83 93 11/24/16 11:08 11/24/16 11:08 11/24/16 11:08 11/24/16 11:08 11/24/16 11:08 General appearance: Present: no acute distress - Head Head Exam: Present: atraumatic, normal inspection - Eye Eye exam: Present: EOMI, normal appearance - ENT ENT exam: Present: mucous membranes moist - Respiratory Respiratory exam: Present: decreased breath sounds, wheezes (Eating breathing treatment currently) - Cardiovascular Cardiovascular exam: Present: irregular rhythm, tachycardia - GI/Abdominal Exam GI/Abdominal exam: Present: normal bowel sounds, soft. Absent: tenderness - Extremities Exam Extremities exam: Present: pedal edema. Absent: normal inspection (tender to the touch, per patient) - Neurological Exam Neurological exam: Present: alert, oriented X3 - Psychiatric Psychiatric exam: Present: normal affect, normal mood. Absent: agitated, anxious - Skin Skin exam: Present: dry, warm Internal Medicine - CN: Reslt - Labs CBC & Chem 7: 11/24/16 04:49 11/24/16 04:49 Labs: Short CBC 11/24/16 Range/Units 04:49 WBC 7.4 (4.3-11.1) K/mcL Hgb 10.4 L (12.9-16.9) g/dL Hct 36.0 L (37.5-50.1) % Plt Count 104 L (140-400) K/mcL BMP 11/24/16 04:49 Sodium 141 Potassium 4.5 D Chloride 99 Carbon Dioxide 33 H BUN 48 H D Creatinine 7.40 H Glucose 96 Calcium 8.5 L Liver Function 11/24/16 Range/Units 04:49 Total Bilirubin 0.7 (0.2-1.2) mg/dL AST 20 (5-34) Units/L ALT 16 (0-55) Units/L Alkaline Phosphatase 446 H (38-126) Units/L Albumin 2.8 L (3.5-5.0) g/dL - ABG Interpretation ABG results: PT/INR, D-dimer PT 26.2 Seconds (9.4-12.1) H 11/24/16 04:49 - Impressions Impressions Chest X-Ray 11/24/16 08:41 IMPRESSION: Stable cardiomegaly. Mild pulmonary edema. D/ / 11/24/2016 09:55:50 Zena Gannon MD / Tiffanie Drake Interpreting Provider: Zena Gannon MD Consult Discharge Plan - Plan Referrals: Arthur Pozo MD [Primary Care Provider] - 12/01/16 9:45 am (Please follow up as schedule..) Palliative Quality Palliative Quality: Screen for Code Status: Yes, Screen for Goals of Care: Yes, Screen for Pain: Yes, If Pain Regimen Started, Initiate Bowel Regimen: Yes, Screen for Nausea/Vomitting: Yes Code Status: 11/19/16 11:29 Resuscitation Status: Active [RES] Routine Comment: Resuscitation Status: Full Code
--- NOTE | 2016-11-24 15:24 | Internal Med Progress Note ---
Date of Encounter: 11/24/16 Time of Encounter: 10:00 - Assessment and plan (1) Atrial flutter with rapid ventricular response Current Visit: Yes Status: Acute Assessment and plan: Patient presents with a chief complaint of shortness of breath. EKGs revealed a flutter with RVR, heart rate 147. 08/2016: Echocardiogram shows LVEF 20%, moderate diastolic dysfunction, moderate RV hypokinesis, no pulmonary hypertension, small pericardial effusion. Limited QUIQUE on this admission showed no change in pericardial effusion, Heart rate is still not controlled yet. Appreciate cardiology input. Continue amiodarone drip and metoprolol. (2) Acute systolic heart failure Current Visit: Yes Status: Acute Assessment and plan: Chest x-ray showed mild pulmonary edema. Continue fluid restriction. The patient was mildly hypotensive for the past few days. We will resume diuretics tomorrow. (3) End stage renal disease on dialysis Current Visit: Yes Status: Chronic Assessment and plan: - BUN/ CR is 70/9.70. Patient receives dialysis Wednesday. Patient underwent hemodialysis session and accommodations. - Nephrology following. - Will continue to monitor fluid status, renal function - Patient did have an episode of confusion, decreased alertness this morning. Likely results of uremia. Patient is back to baseline after receiving hemodialysis this afternoon (4) Diabetes mellitus Current Visit: No Status: Chronic Assessment and plan: ISS. Diabetic diet Qualifiers: Diabetes mellitus type: type 2 Diabetes mellitus complication status: with kidney complications Diabetes mellitus complication detail: with chronic kidney disease Diabetes mellitus senior living insulin use: unspecified senior living insulin use status Chronic kidney disease stage: on chronic dialysis Qualified Code(s): E11.22 - Type 2 diabetes mellitus with diabetic chronic kidney disease; N18.6 - End stage renal disease; Z99.2 - Dependence on renal dialysis (5) Hypotension Current Visit: Yes Status: Chronic Assessment and plan: patient currently not hypotensive at 98/59, however he has not been taking his medications - receiving metoprolol, amiodarone. Radiology will initiate a amiodarone drip at this afternoon - Cautious of fluid resuscitation given CHF exacerbation, HD patient. Qualifiers: Hypotension type: unspecified hypotension type Qualified Code(s): I95.9 - Hypotension, unspecified (6) Chronic respiratory failure Current Visit: Yes Status: Chronic Assessment and plan: Patient uses 4 L of oxygen at home. Continue nebs Qualifiers: Respiratory failure complication: hypoxia Qualified Code(s): J96.11 - Chronic respiratory failure with hypoxia (7) COPD (chronic obstructive pulmonary disease) Current Visit: No Status: Chronic Assessment and plan: Nebs Qualifiers: COPD type: unspecified COPD Qualified Code(s): J44.9 - Chronic obstructive pulmonary disease, unspecified - Subjective Interval history: Patient reports shortness of breath overnight. - Constitutional Vitals: Temp Pulse Resp BP Pulse Ox 98.5 F 109 18 101/77 93 11/24/16 11:08 11/24/16 14:16 11/24/16 11:08 11/24/16 14:16 11/24/16 11:08 General appearance: Present: cooperative, mild distress, A&O X 3, pleasant, answers questions appropriately - Respiratory Respiratory exam: Present: rales (At lower lung hurtado.) - Cardiovascular Cardiovascular exam: Present: RRR - GI/Abdominal GI/Abdominal exam: Present: normal bowel sounds, soft. Absent: distended, tenderness - Extremities Exam Extremities exam: Present: pedal edema - Back Exam Back exam: Absent: CVA tenderness (L), CVA tenderness (R) - Neurological Exam Neurological exam: Present: alert, oriented X3, no focal deficits, strengths equal and symetr throughout. Absent: facial droop, speech deficit Internal Medicine: Result - Labs CBC & Chem 7: 11/24/16 04:49 11/24/16 04:49 Labs: Short CBC 11/24/16 Range/Units 04:49 WBC 7.4 (4.3-11.1) K/mcL Hgb 10.4 L (12.9-16.9) g/dL Hct 36.0 L (37.5-50.1) % Plt Count 104 L (140-400) K/mcL BMP 11/24/16 04:49 Sodium 141 Potassium 4.5 D Chloride 99 Carbon Dioxide 33 H BUN 48 H D Creatinine 7.40 H Glucose 96 Calcium 8.5 L Liver Function 11/24/16 Range/Units 04:49 Total Bilirubin 0.7 (0.2-1.2) mg/dL AST 20 (5-34) Units/L ALT 16 (0-55) Units/L Alkaline Phosphatase 446 H (38-126) Units/L Albumin 2.8 L (3.5-5.0) g/dL - ABG Interpretation ABG results: PT/INR, D-dimer PT 26.2 Seconds (9.4-12.1) H 11/24/16 04:49 - Impressions Impressions Chest X-Ray 11/24/16 08:41 IMPRESSION: Stable cardiomegaly. Mild pulmonary edema. D/ / 11/24/2016 09:55:50 Zena Gannon MD / Tiffanie Drake Interpreting Provider: Zena Gannon MD - VTE Reasons for not Prescribing Prophylaxis: Not indicated-Anticoagulated or INR therapeutic Consult Discharge Plan - Plan Referrals: Arthur Pozo MD [Primary Care Provider] - 12/01/16 9:45 am (Please follow up as schedule..)
[2016-11-24] MEDS: Benzonatate 100 MG CAPSULE PO PRN (15:48)
--- NOTE | 2016-11-24 16:48 | Event Note ---
Date of Encounter: 11/24/16 Time of Encounter: 16:40 - Cardiology Event Note Appreciate palliative care input. Mr. Hatch HR improved with repeat amiodarone bolus and IV gtt. IV gtt will be completed at 1999 this evening. Change metoprolol tartrate to metoprolol succinate for cardiomyoapthy. May provide better HR control with BID dosing. Discussed QUIQUE/DCCV multiple times with Mr. Hatch and he declines. Offered transfer to another facility for procedure and he declines. Unable to titrate medications any further. HR has improved. Running 100-110. We will sign off. If he changes his mind to have cardioversion please call. Recommend cardiology f/u in 1-2 weeks after discharge.
[2016-11-24] MEDS ORDERED: *HR* Warfarin 5 MG TABLET PO ONE (18:00)
[2016-11-24] MEDS: Metoprolol XL (24 HR) Succ 50 MG TAB.ER.24H PO SCH (20:46)
[2016-11-25] MEDS: Benzonatate 100 MG CAPSULE PO PRN (00:38)
[2016-11-25 04:16] LABS: ABG Base Excess 4.1 mEq/L (-2.0 to 3.0); ABG HCO3 34.4 mEQ/L (21-27); ABG Oxygen Saturation 78 % (95-98); ABG PH 7.21 pH Units (7.32-7.45); ABG PO2 52 mmHg (85-104)
[2016-11-25] MEDS: Ipratropium Neb 0.5 MG NEBULIZER IH SCH ×4 (04:16→21:33)
[2016-11-25] MEDS: Levalbuterol Neb 0.63 MG/3 ML IH SCH ×4 (04:16→21:33)
[2016-11-25 04:17] LABS: Blood Gas FiO2 36 %; Blood Gas Liter Flow 4 L/MIN
[2016-11-25 04:18] LABS: ABG PCO2 86 mmHg (35-45)
[2016-11-25 07:24] LABS: INR 2.7; Prothrombin Time 29.8 Seconds (9.4-12.1)
[2016-11-25 07:29] LABS: Eosinophils % 0.9 %; Monocytes % 11.9 %
[2016-11-25] MEDS: Calcium Acetate 667 MG CAPSULE PO SCH ×3 (07:30→18:52)
[2016-11-25 07:31] LABS: Basophils % 0.4 %; Eosinophils # 0.1 K/mcL (0.0-0.6); Hematocrit 35.2 % (37.5-50.1); Hemoglobin 10.6 g/dL (12.9-16.9); Immature Granulocytes % 0.3 % (0-4); Lymphocytes % 14.9 %; Mean Corpuscular HGB Conc 30.1 g/dL (31.6-35.5); Mean Corpuscular Hemoglobin 28.5 pg (28.0-33.3); Mean Corpuscular Volume 94.6 fL (83.0-100.0); Mean Platelet Volume 12.5 fL (9.4-12.4); Monocytes # 0.8 K/mcL (0.0-1.3); Platelet Count 106 K/mcL (140-400); Red Blood Count 3.72 M/mcL (4.19-5.50); Red Cell Distribution Width 21.4 % (11.5-14.5); Segmented Neutrophils % 71.6 %
[2016-11-25] MEDS: *HR* Amiodarone 200 MG TABLET PO SCH (07:31)
[2016-11-25] MEDS: Renal Vitamin 1 MG CAPSULE PO SCH (07:31)
[2016-11-25] MEDS: Pregabalin 50 MG CAPSULE PO SCH ×3 (07:31→21:21)
[2016-11-25] MEDS: Metoprolol XL (24 HR) Succ 50 MG TAB.ER.24H PO SCH ×2 (07:31→21:21)
[2016-11-25 07:33] LABS: Calcium 8.8 mg/dL (8.6-10.8); Magnesium 2.1 mg/dL (1.6-2.6)
[2016-11-25] MEDS: Nicotine 14 MG PATCH.TD24 TD SCH (07:33)
[2016-11-25] MEDS: Insulin LISPRO 300 UNITS/3 ML VIAL SQ SCH ×4 (07:34→20:53)
[2016-11-25] MEDS ORDERED: 0.9 % Sodium Chloride 250 ML IVC PRN (08:14)
[2016-11-25] MEDS ORDERED: 0.9 % Sodium Chloride 1,000 ML PRIME SCH (08:15)
[2016-11-25 08:24] LABS: Anisocytosis 1+ (Not Present); Hypochromasia Present (Not Present); Polychromasia 1+ (Not Present)
[2016-11-25 08:25] LABS: Basophilic Stippling 1+ (Not Present); Platelet Estimate Slight Decrease (Normal)
--- NOTE | 2016-11-25 08:41 | Nephrology Progress Note ---
Date of Encounter: 11/25/16 Time of Encounter: 08:20 - Assessment and Plan (1) End stage renal disease on dialysis Current Visit: Yes Status: Chronic HD on today, keeping MWF schedule. Orders given. Subjective Principal diagnosis: aflutter with RVR Interval history: Alert, O2/NC, somewhat tachypneic. States breathing easier. Objective - Vital Signs Vital signs: Vital Signs Temp Pulse Resp BP Pulse Ox 11/25/16 07:30 97.7 F 122 16 103/89 94 11/25/16 07:09 98.2 F 117 16 102/78 93 11/25/16 05:28 127 11/25/16 04:38 24 97 11/25/16 02:00 98.1 F 127 16 106/89 100 11/24/16 23:00 98.5 F 112 16 101/79 95 11/24/16 22:27 95 11/24/16 22:15 16 95 11/24/16 21:07 98.7 F 107 16 108/79 97 11/24/16 15:35 98.5 F 103 16 134/103 95 11/24/16 15:15 120 11/24/16 14:16 109 101/77 11/24/16 12:14 67 11/24/16 11:08 98.5 F 100 18 121/83 93 11/24/16 10:52 18 100 Intake and Output 11/24/16 11/25/16 11/25/16 23:59 07:59 15:59 Intake Total 320 / 320 120 / 120 Output Total 0 / 0 Balance 320 / 320 120 / 120 Intake: IV Fluids 200 / 200 Amiodarone Drip Premix 200 / 200 360mg/200mL 360 mg In 200 ml @ 0.5 MG/MIN 16.667 mls/hr IVC CONT [place] Rx#: [id number] Oral 120 / 120 120 / 120 Output: Urine 0 / 0 Other: Meal Dinner Percent of Meal Consumed 75% # Bowel Movements 1 # Bowel Movement Diapers 0 Weight 128.5 kg Blood Glucose* 113 69 Patient Weight 11/25/16 23:59 Weight 128.5 kg - General Appearance General appearance: Present: well-developed, well-nourished, appears started age , obese EENT: Present: mucous membranes moist Neck: Present: no JVD Respiratory: Present: clear Cardiology: Present: edema, irregular rhythm Additional Comments: 1+ pitting LE Gastrointestinal: Present: normoactive bowel sounds, no tenderness, obese Integumentary: Present: warm and dry Neurologic: Present: alert and oriented x3 Psychiatric: Present: mood/affect appropriate, cooperative - Lab 11/25/16 07:02 11/25/16 07:02 Most recent lab results ABG pH 7.21 pH Units (7.32-7.45) L 11/25/16 04:05 ABG pCO2 86 mmHg (35-45) H* 11/25/16 04:05 ABG pO2 52 mmHg (85-104) L 11/25/16 04:05 ABG HCO3 34.4 mEQ/L (21-27) H 11/25/16 04:05 ABG O2 Saturation 78 % (95-98) L 11/25/16 04:05 Calcium 8.8 mg/dL (8.6-10.8) 11/25/16 07:02 Magnesium 2.1 mg/dL (1.6-2.6) 11/25/16 07:02 - VTE Reasons for not Prescribing Prophylaxis: Not indicated-Anticoagulated or INR therapeutic Consult Discharge Plan - Plan Referrals: Arthur Pozo MD [Primary Care Provider] - 12/01/16 9:45 am (Please follow up as schedule..)
[2016-11-25] MEDS ORDERED: 0.9 % Sodium Chloride 2,000 ML ONE (09:16)
[2016-11-25] MEDS: Budesonide Neb 0.25 MG/2 ML IH SCH ×2 (11:35→21:33)
[2016-11-25] MEDS ORDERED: *HR* Warfarin 7.5 MG TABLET PO ONE (18:00)
[2016-11-25] MEDS ORDERED: Ondansetron 4 MG/2 ML VIAL IVP PRN (19:21)
--- NOTE | 2016-11-25 19:22 | Internal Med Progress Note ---
Date of Encounter: 11/25/16 Time of Encounter: 19:19 - Assessment and plan (1) Atrial flutter with rapid ventricular response Current Visit: Yes Status: Acute Assessment and plan: Patient presents with a chief complaint of shortness of breath. EKGs revealed a flutter with RVR, heart rate 147. 08/2016: Echocardiogram shows LVEF 20%, moderate diastolic dysfunction, moderate RV hypokinesis, no pulmonary hypertension, small pericardial effusion. Limited QUIQUE on this admission showed no change in pericardial effusion, Heart rate is still not controlled yet. Appreciate cardiology input. Patient continues to decline QUIQUE/DCCV. Continue amiodarone po and metoprolol. Close monitor. (2) Acute systolic heart failure Current Visit: Yes Status: Acute Assessment and plan: Chest x-ray showed mild pulmonary edema. Continue fluid restriction. The patient was mildly hypotensive for the past few days. We will resume diuretics tomorrow. (3) End stage renal disease on dialysis Current Visit: Yes Status: Chronic Assessment and plan: - BUN/ CR is 70/9.70. Patient receives dialysis Wednesday. Patient underwent hemodialysis session and accommodations. - Nephrology following. - Will continue to monitor fluid status, renal function - Patient did have an episode of confusion, decreased alertness this morning. Likely results of uremia. Patient is back to baseline after receiving hemodialysis this afternoon (4) Diabetes mellitus Current Visit: No Status: Chronic Assessment and plan: ISS. 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 Radiology will initiate a amiodarone drip at this afternoon - Cautious of fluid resuscitation given CHF exacerbation, HD patient. Qualifiers: Hypotension type: unspecified hypotension type Qualified Code(s): I95.9 - Hypotension, unspecified (6) Chronic respiratory failure Current Visit: Yes Status: Chronic Assessment and plan: Patient uses 4 L of oxygen at home. Continue nebs Patient refused BiPAP. I talked to the patient and I explained importance of BiPAP. She stated that she does not wear BiPAP because of an incidental that he had in the past when he vomited well on BiPAP and he was became very scared. I offered the patient Zofran and Ativan before BiPAP, and he agreed to wear BiPAP. Qualifiers: Respiratory failure complication: hypoxia Qualified Code(s): J96.11 - Chronic respiratory failure with hypoxia (7) COPD (chronic obstructive pulmonary disease) Current Visit: No Status: Chronic Assessment and plan: Nebs Qualifiers: COPD type: unspecified COPD Qualified Code(s): J44.9 - Chronic obstructive pulmonary disease, unspecified - Subjective Interval history: Patient reports cough is improved. he states he is not wearing the bipap because of fear of vomiting which happened in the past. i offered him zofran and ativan before bedtime and he agreed to wear bipap. - Constitutional Vitals: Temp Pulse Resp BP Pulse Ox 98.8 F 111 18 95/71 98 11/25/16 15:30 11/25/16 15:30 11/25/16 16:55 11/25/16 15:30 11/25/16 16:55 General appearance: Present: cooperative, mild distress, A&O X 3, pleasant, answers questions appropriately - Neck Neck exam general surgery: Present: supple, trachea midline. Absent: normal inspection - Respiratory Respiratory exam: Present: rales - Cardiovascular Cardiovascular exam: Present: irregular rhythm, tachycardia - GI/Abdominal GI/Abdominal exam: Present: normal bowel sounds, soft. Absent: distended, tenderness - Extremities Exam Extremities exam: Present: pedal edema - Neurological Exam Neurological exam: Present: alert, oriented X3. Absent: facial droop, speech deficit Internal Medicine: Result - Labs CBC & Chem 7: 11/25/16 07:02 11/25/16 07:02 Labs: Short CBC 11/25/16 Range/Units 07:02 WBC 7.0 (4.3-11.1) K/mcL Hgb 10.6 L (12.9-16.9) g/dL Hct 35.2 L (37.5-50.1) % Plt Count 106 L (140-400) K/mcL Neutrophils # 5.0 (1.6-8.9) K/mcL BMP 11/25/16 07:02 Sodium 142 Potassium 5.0 H Chloride 99 Carbon Dioxide 33 H BUN 72 H D Creatinine 9.40 H Glucose 68 L Calcium 8.8 - ABG Interpretation ABG results: ABG ABG pH 7.21 pH Units (7.32-7.45) L 11/25/16 04:05 ABG pCO2 86 mmHg (35-45) H* 11/25/16 04:05 ABG pO2 52 mmHg (85-104) L 11/25/16 04:05 ABG O2 Saturation 78 % (95-98) L 11/25/16 04:05 PT/INR, D-dimer PT 29.8 Seconds (9.4-12.1) H 11/25/16 07:02 - Impressions Impressions Chest X-Ray 11/24/16 08:41 IMPRESSION: Stable cardiomegaly. Mild pulmonary edema. D/ / 11/24/2016 09:55:50 Zena Gannon MD / Tiffanie Drake Interpreting Provider: Zena Gannon MD - VTE Reasons for not Prescribing Prophylaxis: Not indicated-Anticoagulated or INR therapeutic Consult Discharge Plan - Plan Referrals: Arthur Pozo MD [Primary Care Provider] - 12/01/16 9:45 am (Please follow up as schedule..)
[2016-11-26] MEDS: Ipratropium Neb 0.5 MG NEBULIZER IH SCH ×4 (03:44→22:04)
[2016-11-26] MEDS: Levalbuterol Neb 0.63 MG/3 ML IH SCH ×4 (03:44→22:04)
[2016-11-26 04:39] LABS: ABG Base Excess 5.8 mEq/L (-2.0 to 3.0); ABG HCO3 35.6 mEQ/L (21-27); ABG Oxygen Saturation 97 % (95-98); ABG PH 7.24 pH Units (7.32-7.45); ABG PO2 105 mmHg (85-104); ABG TCO2 38.1 mEq/L (20-26)
[2016-11-26 04:40] LABS: Blood Gas FiO2 40 %
[2016-11-26 04:42] LABS: ABG PCO2 83 mmHg (35-45)
[2016-11-26] MEDS ORDERED: FentaNYL (PF) 1,000 MCG in 0.9 % Sodium Chloride 80 ML IVC SCH (05:15)
--- NOTE | 2016-11-26 05:39 | Event Note ---
<Juancho Cano - Last Filed: 11/26/16 05:36> Date of Encounter: 11/26/16 Time of Encounter: 05:36 Endotracheal Intubation /Date: 11/26/2016 /Time: 0530 Indication: Respiratory Distress Resident: Juancho Cano DO Attending: Yuriy Banerjee A time-out was completed verifying correct patient, procedure, site, positioning , and special equipment if applicable. The patient was placed in a flat position. Sedation was obtained using 100mg Succinylcholine, and additionally with Etomidate 20mg. The patient was easily ventilated using an ambu bag. The MAC BLADE was used and inserted into the oropharynx at which time there was a Grade 1 view of the vocal cords. A 7.5-swedish endotracheal tube was inserted and visualized going through the vocal cords. The stylette was removed. Colorimetric change was visualized on the CO2 meter. Breath sounds were heard in both lung hurtado equally. The endotracheal tube was placed at 23 cm, measured at the teeth. Dr. Yuriy Banerjee was present for the entire procedure. A chest x-ray was ordered to assess for pneumothorax and verify endotrachealtube placement. Estimated Blood Loss: 0 ml The patient tolerated the procedure well and there were no complications. <Yuriy Banerjee - Last Filed: 11/26/16 06:38> Date of Encounter: 11/26/16 Patient is a 45-year-old male with extreme medical noncompliance, ESRD on hemodialysis, nonischemic cardiomyopathy, COPD, atrial fibrillation, has left AGAINST MEDICAL ADVICE from ICU earlier on in his admission after being intubated and extubated for acute encephalopathy and respiratory failure was a concern this morning after he was noted to be altered whilst on BiPAP. His ABG reported mildly improved CO2 from the CO2 prior to the use of NIMV. Due to a combination of possible failed NIMV leading acute hypercapnic respiratory failure, acute encephalopathy and concern for impending deterioration his level of care was upgraded and he was intubated. Patient has critical illness, with multiple vital organ impairment; brain, respiratory and renal with a high probability of imminent or life threatening deterioration in his condition. I performed critical intervention, involving high complexity decision making to assess, manipulate, and support vital organ system failure; and I spent about 45 minutes engaged in work directly related to his care at his immediate bedside and also on the unit, part of this time was also spent coordinating care. Critical time: 45 minutes Yuryi Banerjee MD, MPH Hospitalist
[2016-11-26] MEDS ORDERED: Naloxone 0.4 MG/ML INJ IVP PRN (05:40)
[2016-11-26 06:05] LABS: Basophils # 0.1 K/mcL (0.0-0.2); Basophils % 0.7 %; Eosinophils % 0.5 %; Hemoglobin 11.1 g/dL (12.9-16.9); Immature Granulocytes % 0.7 % (0-4); Lymphocytes # 1.2 K/mcL (0.6-4.6); Lymphocytes % 15.7 %; Mean Corpuscular HGB Conc 29.2 g/dL (31.6-35.5); Mean Corpuscular Hemoglobin 28.5 pg (28.0-33.3); Mean Corpuscular Volume 97.4 fL (83.0-100.0); Mean Platelet Volume 12.3 fL (9.4-12.4); Monocytes # 0.9 K/mcL (0.0-1.3); Monocytes % 11.5 %; Neutrophils # 5.4 K/mcL (1.6-8.9); Platelet Count 131 K/mcL (140-400); Red Cell Distribution Width 21.3 % (11.5-14.5); Segmented Neutrophils % 70.9 %
[2016-11-26 06:08] LABS: Prothrombin Time 33.9 Seconds (9.4-12.1)
[2016-11-26 06:14] LABS: Calcium 8.8 mg/dL (8.6-10.8); Potassium 5.3 mEq/L (3.5-4.5)
[2016-11-26 06:53] LABS: Hypochromasia Present (Not Present); Macrocytosis Present (Not Present); Microcytosis Present (Not Present); Polychromasia 1+ (Not Present)
[2016-11-26 06:54] LABS: Anisocytosis 1+ (Not Present); Platelet Estimate Slight Decrease (Normal)
[2016-11-26 08:04] LABS: ABG Base Excess 6.4 mEq/L (-2.0 to 3.0); ABG HCO3 34.7 mEQ/L (21-27); ABG Oxygen Saturation 98 % (95-98); ABG PCO2 69 mmHg (35-45); ABG PH 7.31 pH Units (7.32-7.45); ABG PO2 110 mmHg (85-104); ABG TCO2 36.8 mEq/L (20-26)
[2016-11-26 08:05] LABS: Blood Gas FiO2 50 %; Blood Gas PEEP 5 cm H2O; Blood Gas Respiration Rate 14; Blood Gas VT 550 cc
[2016-11-26] MEDS: Dexmedetomidine HCl 400 MCG/100 ML MLS IVC SCH ×2 (08:34→22:46)
[2016-11-26] MEDS: Calcium Acetate 667 MG CAPSULE PO SCH ×3 (08:34→15:44)
[2016-11-26] MEDS: Nicotine 14 MG PATCH.TD24 TD SCH (08:38)
[2016-11-26] MEDS: *HR* Amiodarone 200 MG TABLET PO SCH (08:40)
[2016-11-26] MEDS: Insulin DETEMIR 100 UNIT/ML X5UNITS SQ SCH (09:04)
--- NOTE | 2016-11-26 09:04 | Nephrology Progress Note ---
Date of Encounter: 11/26/16 Time of Encounter: 08:25 - Assessment and Plan (1) End stage renal disease on dialysis Current Visit: Yes Status: Chronic Hypercapneic respratory failure. Dialyzed full treatment yesterday. HD on tomorrow, keeping MWF schedule. Subjective Principal diagnosis: aflutter with RVR Interval history: Transferred to ICU forhypercapneic respiratory failure. Intubated and sedated. FIO2 .40, peep5. Objective - Vital Signs Vital signs: Vital Signs Temp Pulse Resp BP Pulse Ox 11/26/16 08:00 114 14 90/55 98 11/26/16 07:42 14 106/75 100 11/26/16 07:10 99.9 F H 11/26/16 06:18 99.9 F H 125 14 88/61 95 11/26/16 06:03 125 14 88/61 95 11/26/16 05:42 14 88/57 96 11/26/16 05:15 99.9 F H 108 22 111/64 94 11/26/16 04:23 18 96 11/26/16 03:55 98.2 F 114 22 110/66 94 11/26/16 03:45 22 94 11/26/16 00:02 98.2 F 119 17 111/97 97 11/25/16 23:39 22 93 11/25/16 21:36 25 88 11/25/16 20:23 113 20 93 11/25/16 20:04 98.6 F 120 20 99/66 93 11/25/16 16:55 18 98 11/25/16 15:30 98.8 F 111 18 95/71 99 11/25/16 14:45 98.8 F 18 102/42 11/25/16 14:35 96/46 11/25/16 14:20 95/52 11/25/16 14:05 108/57 11/25/16 13:50 99/55 11/25/16 13:35 103/67 11/25/16 13:20 97/53 11/25/16 13:05 96/46 11/25/16 12:50 94/41 11/25/16 12:35 98/46 11/25/16 12:20 109/54 11/25/16 12:10 99 11/25/16 12:05 118/46 11/25/16 11:50 105/50 11/25/16 11:35 91/48 11/25/16 11:20 96/54 11/25/16 11:05 96/54 11/25/16 10:50 111/58 11/25/16 10:35 111/58 11/25/16 10:20 115/78 11/25/16 10:05 97.3 F L 22 118/78 Intake and Output 11/25/16 11/26/16 11/26/16 23:59 07:59 15:59 Intake Total 360 / 360 10 / 10 0 / 0 Balance 360 / 360 10 / 10 0 / 0 Intake: IV Fluids Diprivan 1,000 mg In 100 10 / 10 ml @ 2 MCG/KG/MIN 1.542 mls/hr IVC .Q24H [facility] Rx#: [id number] Oral 360 / 360 0 / 0 0 / 0 Other: Meal Lunch Percent of Meal Consumed 100% Weight 125 kg Blood Glucose* 175 115 Patient Weight 11/26/16 23:59 Weight 125 kg - General Appearance General appearance: Present: well-developed, well-nourished, appears started age , obese EENT: Present: mucous membranes moist Neck: Present: no JVD Respiratory: Present: course breath sounds Cardiology: Present: edema, irregular rhythm Additional Comments: mild - 1+ pitting Gastrointestinal: Present: hypoactive bowel sounds, obese - Lab 11/26/16 05:51 11/26/16 05:51 Most recent lab results ABG pH 7.31 pH Units (7.32-7.45) L 11/26/16 07:50 ABG pCO2 69 mmHg (35-45) H 11/26/16 07:50 ABG pO2 110 mmHg (85-104) H 11/26/16 07:50 ABG HCO3 34.7 mEQ/L (21-27) H 11/26/16 07:50 ABG O2 Saturation 98 % (95-98) 11/26/16 07:50 Calcium 8.8 mg/dL (8.6-10.8) 11/26/16 05:51 Magnesium 2.0 mg/dL (1.6-2.6) 11/26/16 05:51 - VTE Reasons for not Prescribing Prophylaxis: Not indicated-Anticoagulated or INR therapeutic Consult Discharge Plan - Plan Referrals: Arthur Pozo MD [Primary Care Provider] - 12/01/16 9:45 am (Please follow up as schedule..)
[2016-11-26] MEDS: Insulin LISPRO 300 UNITS/3 ML VIAL SQ SCH ×4 (09:05→20:25)
[2016-11-26] MEDS: Pantoprazole 40 MG VIAL IVP SCH (09:07)
--- NOTE | 2016-11-26 09:11 | Pulmonology Consult Note ---
Date of Encounter: 11/26/16 Time of Encounter: 09:07 Assessment and Plan (1) Acute and chronic respiratory failure with hypercapnia Current Visit: Yes Status: Acute Patient initially presented with Kathryn modesta with RVR and shortness of breath. He was found to be stuporous last night and was subsequently intubated. At this time the patient remains intubated and sedated. He suffers from acute on chronic respiratory failure which is exacerbated by noncompliance with medications and BiPAP. Unfortunately this patient is frequently admitted to the hospital and has been intubated several times in the last several months for this reason. Patient signed out AMA from the ICU approximately a week ago. We will continue with ventilatory support and optimize his pulmonary condition with bronchodilators. No indication for steroids at this time. Patient is a dialysis patient and receives dialysis Wednesday, Wednesday, Wednesday. We will continue with his regular scheduled dialysis treatments. No indications for acute dialysis. Nephrology is following. Patient suffers from systolic heart failure and does not appear to be in acute exacerbation. Continue medical management with beta ga and as needed diuresis. (2) End stage renal disease on dialysis Current Visit: Yes Status: Chronic (3) Hx of noncompliance with medical treatment, presenting hazards to health Current Visit: No Status: Acute (4) Atrial fibrillation Current Visit: Yes Status: Chronic Qualifiers: Atrial fibrillation type: chronic Qualified Code(s): I48.2 - Chronic atrial fibrillation (5) Severe sleep apnea Current Visit: No Status: Acute (6) Diabetes Current Visit: No Status: Acute Qualifiers: Diabetes mellitus type: type 2 Diabetes mellitus complication status: with unspecified complications Diabetes mellitus tank terminal gauger insulin use: with tank terminal gauger use Qualified Code(s): E11.8 - Type 2 diabetes mellitus with unspecified complications; 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 Patient has frequent admissions and is frequently intubated in the ICU for chronic respiratory failure. Apparently last night the patient had a decreased mental status became more confused and therefore was intubated. At this time the patient is intubated and sedated. He does not appear to be in any acute distress. Past Med Surg Social Fam HX - Past Medical History Medical history: arthritis, cardiomyopathy, CHF, COPD, diabetes, dialysis, GERD , hyperlipidemia, hypertension, osteoporosis, renal disease, other Psychiatric history: anxiety, depression, other - Past Surgical History Surgical History: herniorrhaphy, vascular surgery, other - Social History Smoking Status: Current every day smoker Smokeless Tobacco Status: No Alcohol use: none, unknown Drug use: marijuana, other - Family History Father Living Status: Hx Family Cardiac Disorders: No Hx Family Respiratory Disorders: No Hx Family Cancer: No Hx Family GI Disorders: No Hx Family Endocrine Disorder: No Hx Family Neuromuscular Disorders: No Hx Family Neurologic Disorders: No Hx Family HEENT Disorders: No Hx Family Autoimmune Disorders: No Mother Adopted: No Living Status: Still Living Hx Family Cardiac Disorders: Yes Hx Family Endocrine Disorder: Yes Medications and Allergies Insulin Glargine,Hum.rec.anlog [Lantus Solostar] 30 unit SQ BID #0 01/07/15 [ History] Amigo Oil/Pomeroy-3 Fatty Acids [Fish Oil 500 mg Softgel] 1 cap PO DAILY #0 [History] Carvedilol [Coreg] 12.5 mg PO BIDWM 01/24/16 [History] Duloxetine HCl [Cymbalta] 60 mg PO DAILY 01/24/16 [History] Renal Vitamin [Renal Caps Softgel] 1 mg PO DAILY 01/24/16 [History] Ammonium Lactate 1 appl TP BID PRN 09/02/16 [History] Cinacalcet HCl [Sensipar] 120 mg PO DAILY 09/02/16 [History] hydrALAZINE [HydrALAZINE] 25 mg PO BID 09/02/16 [History] Amiodarone [Cordarone] 200 mg PO BID tablet 09/19/16 [Rx] Docusate [Colace] 100 mg PO BID PRN #0 capsule 09/19/16 [Rx] Ipratropium Neb [Atrovent Neb] 0.5 mg IH TIDR inhsol 09/19/16 [Rx] Levalbuterol Neb [Xopenex Neb] 0.63 mg IH TIDR vial.neb 09/19/16 [Rx] Tetrahydrozoline [Visine] 1 drop BOTH EYES QID PRN 09/29/16 [History] Warfarin [Coumadin] 5 mg PO Q48H 09/29/16 [History] Warfarin [Coumadin] 7.5 mg PO Q48H 09/29/16 [History] Atorvastatin [Lipitor] 40 mg PO HS 11/16/16 [History] Budesonide/Formoterol 160/4.5 [Symbicort 160/4.5] 2 puff IH BIDR PRN 11/16/16 [ History] Calcium Acetate [Phos-LO] 2,668 mg PO TIDWM 11/16/16 [History] Ethyl Chloride 1 unit TP MOWEFR 11/16/16 [History] Nicotine Patch [Nicoderm] 14 mg TD DAILY 11/16/16 [History] Omeprazole [PriLOSEC] 20 mg PO DAILY 11/16/16 [History] Oxygen 2 l NS AD 11/16/16 [History] Pregabalin [Lyrica] 100 mg PO TID 11/16/16 [History] Allergies hydrocodone [From [place]] Allergy (Intermediate, Verified 09/29/16 16:59) Hives lanolin [From [facility]ri-L[facility] S.O.P[facility] Adverse Reaction (Verified 11/18/16 10:51) Swelling of the Eye CAUSES IRRITATION/REDNESS TO EYE. PATIENT REQUESTS NOT TO HAVE WHEN HE IS INTUBATED. mineral oil [From [facility]ri-L[facility] S.O[facility] Adverse Reaction (Verified 11/18/16 10:50) Swelling of the Eye petrolatum,white [From Lacri-Lube S.O.P[facility] Adverse Reaction (Verified 11/18/16 10 :50) Swelling of the Eye ROS unobtainable: due to endotracheal tube All Systems: A 10-system review of systems was performed and is negative for pertinent findings except as documented above in the HPI. Physical Examination Vital Signs: Vital Signs, Last 4 Hours Temp Pulse Resp BP Pulse Ox 11/26/16 08:00 114 14 90/55 98 11/26/16 07:42 14 106/75 100 11/26/16 07:10 99.9 F H 11/26/16 06:18 99.9 F H 125 14 88/61 95 11/26/16 06:03 125 14 88/61 95 11/26/16 05:42 14 88/57 96 11/26/16 05:15 99.9 F H 108 22 111/64 94 General appearance: no acute distress ENT: oropharynx moist Effort: normal Auscultation: bilateral: diminished breath sounds Cardiovascular: irregular rhythm Gastrointestinal: normoactive bowel sounds, soft, non-tender, non-distended Extremities: no cyanosis, no clubbing, edema (1+) unable to assess due to mental status Ventilator Settings Ventilator Settings: Ventilator Settings, Last 8 Hours Ventilator Mode A/C Ventilator Mode A/C Ventilator Mode A/C Ventilator Mode A/C Ventilator Tidal Volume 550 Setting Ventilator Tidal Volume 550 Setting Ventilator Tidal Volume 550 Setting Ventilator Tidal Volume 550 Setting Ventilator Tidal Volume 550 Setting Ventilator Tidal Volume 500 Setting Ventilator Respiratory Rate 14 Setting Ventilator Respiratory Rate 14 Setting Ventilator Respiratory Rate 14 Setting Ventilator Respiratory Rate 14 Setting Ventilator Respiratory Rate 14 Setting Ventilator Respiratory Rate 8 Setting Actual Respiratory Rate 14 Actual Respiratory Rate 14 Actual Respiratory Rate 14 Actual Respiratory Rate 14 Positive End Expiratory 5 Pressure Positive End Expiratory 5 Pressure Positive End Expiratory 5 Pressure Positive End Expiratory 5 Pressure Positive End Expiratory 5 Pressure Peak Inspiratory Airway 40 Pressure Peak Inspiratory Airway 37 Pressure Peak Inspiratory Airway 37 Pressure Peak Inspiratory Airway 32 Pressure Results - Laboratory Findings CBC and BMP: 11/26/16 05:51 11/26/16 05:51 ABG ABG pH 7.31 pH Units (7.32-7.45) L 11/26/16 07:50 ABG pCO2 69 mmHg (35-45) H 11/26/16 07:50 ABG pO2 110 mmHg (85-104) H 11/26/16 07:50 ABG O2 Saturation 98 % (95-98) 11/26/16 07:50 PT/INR, D-dimer PT 33.9 Seconds (9.4-12.1) H 11/26/16 05:51 Abnormal lab findings: Abnormal lab results RBC 3.90 M/mcL (4.19-5.50) L 11/26/16 05:51 Hgb 11.1 g/dL (12.9-16.9) L 11/26/16 05:51 MCHC 29.2 g/dL (31.6-35.5) L 11/26/16 05:51 RDW 21.3 % (11.5-14.5) H 11/26/16 05:51 Plt Count 131 K/mcL (140-400) L 11/26/16 05:51 Nucleated RBCs/100 WBC 0.5 /100 WBC (0) H 11/20/16 00:57 Platelet Estimate Slight Decrease (Normal) L 11/26/16 05:51 Immature Plt Fraction 10.7 % (1.1-6.1) H 11/21/16 12:21 Polychromasia 1+ (Not Present) A 11/26/16 05:51 Hypochromasia Present (Not Present) A 11/26/16 05:51 Basophilic Stippling 1+ (Not Present) A 11/25/16 07:02 Anisocytosis 1+ (Not Present) A 11/26/16 05:51 Microcytosis Present (Not Present) A 11/26/16 05:51 Macrocytosis Present (Not Present) A 11/26/16 05:51 PT 33.9 Seconds (9.4-12.1) H 11/26/16 05:51 ABG pH 7.31 pH Units (7.32-7.45) L 11/26/16 07:50 ABG pCO2 69 mmHg (35-45) H 11/26/16 07:50 ABG pO2 110 mmHg (85-104) H 11/26/16 07:50 ABG HCO3 34.7 mEQ/L (21-27) H 11/26/16 07:50 ABG Total CO2 36.8 mEq/L (20-26) H 11/26/16 07:50 ABG Base Excess 6.4 mEq/L (-2.0 to 3.0) H 11/26/16 07:50 Potassium 5.3 mEq/L (3.5-4.5) H 11/26/16 05:51 Chloride 97 mEq/L (98-109) L 11/26/16 05:51 Carbon Dioxide 37 mEq/L (19-29) H 11/26/16 05:51 BUN 46 mg/dL (8-26) H D 11/26/16 05:51 Creatinine 7.22 mg/dL (0.72-1.25) H 11/26/16 05:51 Est GFR ( Amer) 10 (> 60) L 11/26/16 05:51 Est GFR (Non-Af Amer) 8 (> 60) L 11/26/16 05:51 Glucose 113 mg/dL (70-99) H 11/26/16 05:51 POC Glucose 115 (58-89) H 11/26/16 05:29 Hemoglobin A1c 7.1 % (-5.6) H 11/22/16 05:52 Calculated Osmolality 307 (280-300) H 11/26/16 05:51 Alkaline Phosphatase 446 Units/L (38-126) H 11/24/16 04:49 Troponin I 0.13 ng/mL (0-0.03) H* 11/20/16 00:57 B-Natriuretic Peptide 844 pg/mL (0-100) H 11/19/16 03:43 Albumin 2.8 g/dL (3.5-5.0) L 11/24/16 04:49 Globulin 3.7 g/dL (2.4-3.5) H 11/24/16 04:49 Albumin/Globulin Ratio 0.8 (1.1-2.2) L 11/24/16 04:49 - Clinical Findings Intake & Output: Intake & Output 11/25/16 11/26/16 11/26/16 23:59 07:59 15:59 Intake Total 360 / 360 0 / 0 Balance 360 / 360 0 / 0 Weight 125 kg Consult Discharge Plan - Plan Referrals: Arthur Pozo MD [Primary Care Provider] - 12/01/16 9:45 am (Please follow up as schedule..)
[2016-11-26] MEDS: Budesonide/Formoterol 160/4.5 MDI IH SCH ×2 (09:59→22:05)
[2016-11-26] MEDS: FentaNYL (PF) 3,000 MCG in 0.9 % Sodium Chloride 240 ML IVC SCH (10:24)
--- NOTE | 2016-11-26 11:18 | Event Note ---
Date of Encounter: 11/26/16 Time of Encounter: 11:14 Patient examined, chart and all data reviewed as well as recent imaging studies. Management was reviewed during multidisciplinary critical care rounds. I agree with the evaluation management and provisions of care as well as findings on physical examination as outlined by Dr. Bonilla in his comprehensive consultation note. Acute chronic respiratory failure with hypoxia hypercapnia in this individual is due to obesity hypoventilation syndrome, chronic hypervolemia due to underlying cardiomyopathy and end-stage renal disease. This patient is entirely noncompliant with medical therapy furthermore suffers from personality disorder which has negative impacts medical compliance. The patient was intubated last night given progressive stupor, obtundation. The patient will be maintained on ventilatory support at this time. Medications will be adjusted to optimize cardiovascular function. E [place] [phone]
[2016-11-26] MEDS ORDERED: *HR* Succinylcholine 200 MG/10 ML VIAL IVP ONE (13:31)
[2016-11-26] MEDS ORDERED: *HR* Etomidate 20 MG/10 ML AMPUL IVP ONE (13:31)
--- NOTE | 2016-11-26 14:42 | Electrocardiograph Report ---
[address] [address] Test Date: 2016-11-25 Pat Name: Eduar Hatch Department: 110 Room: 02 Gender: M [place]: : 1970 Requested By: Misty Braun Order Number: [id number] Reading MD: Graham Millan MD Measurements Intervals [place] Rate: 117 P: IA: 0 QRS: 153 QRSD: 105 T: 23 QT: 314 QTc: 384 Interpretive Statements ATRIAL FLUTTER/TACHYCARDIA WITH RAPID VENTRICULAR RESPONSE Poor R wave progression Electronically Signed On 11-26-2016 14:41:28 EDT by Graham Millan MD
[2016-11-26] MEDS: Chlorhexidine Rinse 15 ML MOUTHWASH MM SCH (21:58)
[2016-11-27] MEDS: Insulin LISPRO 300 UNITS/3 ML VIAL SQ SCH ×6 (00:06→20:47)
[2016-11-27] MEDS: FentaNYL (PF) 3,000 MCG in 0.9 % Sodium Chloride 240 ML IVC SCH ×3 (02:24→14:59)
[2016-11-27 04:15] LABS: Basophils % 1.1 %; Eosinophils # 0.1 K/mcL (0.0-0.6); Eosinophils % 2.3 %; Immature Granulocytes % 0.6 % (0-4); Lymphocytes # 0.9 K/mcL (0.6-4.6); Lymphocytes % 25.9 %; Mean Corpuscular HGB Conc 31.4 g/dL (31.6-35.5); Mean Corpuscular Hemoglobin 28.9 pg (28.0-33.3); Mean Corpuscular Volume 91.9 fL (83.0-100.0); Mean Platelet Volume 11.9 fL (9.4-12.4); Monocytes # 0.4 K/mcL (0.0-1.3); Monocytes % 11.8 %; Platelet Count 106 K/mcL (140-400); Red Blood Count 3.81 M/mcL (4.19-5.50); Red Cell Distribution Width 20.8 % (11.5-14.5); Segmented Neutrophils % 58.3 %
[2016-11-27] MEDS: Levalbuterol Neb 0.63 MG/3 ML IH SCH ×4 (04:18→21:27)
[2016-11-27] MEDS: Ipratropium Neb 0.5 MG NEBULIZER IH SCH ×4 (04:18→21:27)
[2016-11-27 04:26] LABS: INR 3.8
[2016-11-27 04:52] LABS: Potassium 4.2 mEq/L (3.5-4.5)
[2016-11-27] MEDS: *HR* Amiodarone 200 MG TABLET PO SCH (08:38)
[2016-11-27] MEDS: Nicotine 14 MG PATCH.TD24 TD SCH (08:42)
[2016-11-27] MEDS: Pantoprazole 40 MG VIAL IVP SCH (08:42)
[2016-11-27] MEDS: Chlorhexidine Rinse 15 ML MOUTHWASH MM SCH ×2 (08:44→20:46)
[2016-11-27] MEDS: Calcium Acetate 667 MG CAPSULE PO SCH ×3 (08:45→15:51)
[2016-11-27] MEDS ORDERED: 0.9 % Sodium Chloride 250 ML IVC PRN (08:57)
--- NOTE | 2016-11-27 09:01 | Pulmonology Progress Note ---
<Hiram Bonilla - Last Filed: 11/27/16 08:58> Date of Encounter: 11/27/16 Time of Encounter: 08:58 Assessment and Plan (1) Acute and chronic respiratory failure with hypercapnia Current Visit: Yes Status: Acute Patient remains on full ventilatory support for treatment of his acute on chronic respiratory failure with hypoxia and hypercapnia. Continue current treatment. Attempt to wean sedation as tolerated. Plan for regular scheduled dialysis today per nephrology. (2) End stage renal disease on dialysis Current Visit: Yes Status: Chronic (3) Hx of noncompliance with medical treatment, presenting hazards to health Current Visit: No Status: Acute (4) Atrial fibrillation Current Visit: Yes Status: Chronic Qualifiers: Atrial fibrillation type: chronic Qualified Code(s): I48.2 - Chronic atrial fibrillation (5) Severe sleep apnea Current Visit: No Status: Acute (6) Diabetes Current Visit: No Status: Acute Qualifiers: Diabetes mellitus type: type 2 Diabetes mellitus complication status: with unspecified complications Diabetes mellitus mcc insulin use: with mcc use Qualified Code(s): E11.8 - Type 2 diabetes mellitus with unspecified complications; 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 Patient remains intubated and sedated. He does not appear in any acute distress. No acute events overnight. Objective PUL Vital signs: Last Vital Signs Temp 97.7 F 11/27/16 07:46 Pulse 85 11/27/16 08:00 Resp 14 11/27/16 08:00 BP 93/58 11/27/16 08:00 Pulse Ox 96 11/27/16 08:00 General appearance: no acute distress, comatose ENT: oropharynx moist Auscultation: bilateral: clear Cardiovascular: irregular rhythm Gastrointestinal: normoactive bowel sounds, soft, non-tender, non-distended Extremities: no cyanosis, no clubbing, edema (trace) unable to assess due to mental status Ventilator Settings Ventilator Settings: Ventilator Settings, Last 8 Hours Ventilator Mode A/C Ventilator Mode A/C Ventilator Mode A/C Ventilator Mode A/C Ventilator Mode A/C Ventilator Mode A/C Ventilator Mode A/C Ventilator Tidal Volume 550 Setting Ventilator Tidal Volume 550 Setting Ventilator Tidal Volume 550 Setting Ventilator Tidal Volume 550 Setting Ventilator Tidal Volume 550 Setting Ventilator Tidal Volume 550 Setting Ventilator Tidal Volume 550 Setting Ventilator Respiratory Rate 14 Setting Ventilator Respiratory Rate 14 Setting Ventilator Respiratory Rate 14 Setting Ventilator Respiratory Rate 14 Setting Ventilator Respiratory Rate 14 Setting Ventilator Respiratory Rate 14 Setting Ventilator Respiratory Rate 14 Setting Actual Respiratory Rate 14 Actual Respiratory Rate 14 Actual Respiratory Rate 14 Actual Respiratory Rate 14 Actual Respiratory Rate 14 Actual Respiratory Rate 14 Actual Respiratory Rate 14 Positive End Expiratory 5 Pressure Positive End Expiratory 5 Pressure Positive End Expiratory 5 Pressure Positive End Expiratory 5 Pressure Positive End Expiratory 5 Pressure Positive End Expiratory 5 Pressure Positive End Expiratory 5 Pressure Peak Inspiratory Airway 29 Pressure Peak Inspiratory Airway 28 Pressure Peak Inspiratory Airway 29 Pressure Peak Inspiratory Airway 31 Pressure Peak Inspiratory Airway 32 Pressure Peak Inspiratory Airway 33 Pressure Peak Inspiratory Airway 32 Pressure Results - Laboratory Findings CBC and BMP: 11/27/16 04:00 11/27/16 04:00 ABG ABG pH 7.31 pH Units (7.32-7.45) L 11/26/16 07:50 ABG pCO2 69 mmHg (35-45) H 11/26/16 07:50 ABG pO2 110 mmHg (85-104) H 11/26/16 07:50 ABG O2 Saturation 98 % (95-98) 11/26/16 07:50 PT/INR, D-dimer PT 43.0 Seconds (9.4-12.1) H 11/27/16 04:00 Abnormal lab findings: Abnormal lab results WBC 3.5 K/mcL (4.3-11.1) L D 11/27/16 04:00 RBC 3.81 M/mcL (4.19-5.50) L 11/27/16 04:00 Hgb 11.0 g/dL (12.9-16.9) L 11/27/16 04:00 Hct 35.0 % (37.5-50.1) L 11/27/16 04:00 MCHC 31.4 g/dL (31.6-35.5) L 11/27/16 04:00 RDW 20.8 % (11.5-14.5) H 11/27/16 04:00 Plt Count 106 K/mcL (140-400) L 11/27/16 04:00 Nucleated RBCs/100 WBC 0.5 /100 WBC (0) H 11/20/16 00:57 Platelet Estimate Slight Decrease (Normal) L 11/26/16 05:51 Immature Plt Fraction 10.7 % (1.1-6.1) H 11/21/16 12:21 Polychromasia 1+ (Not Present) A 11/26/16 05:51 Hypochromasia Present (Not Present) A 11/26/16 05:51 Basophilic Stippling 1+ (Not Present) A 11/25/16 07:02 Anisocytosis 1+ (Not Present) A 11/26/16 05:51 Microcytosis Present (Not Present) A 11/26/16 05:51 Macrocytosis Present (Not Present) A 11/26/16 05:51 PT 43.0 Seconds (9.4-12.1) H 11/27/16 04:00 ABG pH 7.31 pH Units (7.32-7.45) L 11/26/16 07:50 ABG pCO2 69 mmHg (35-45) H 11/26/16 07:50 ABG pO2 110 mmHg (85-104) H 11/26/16 07:50 ABG HCO3 34.7 mEQ/L (21-27) H 11/26/16 07:50 ABG Total CO2 36.8 mEq/L (20-26) H 11/26/16 07:50 ABG Base Excess 6.4 mEq/L (-2.0 to 3.0) H 11/26/16 07:50 Chloride 97 mEq/L (98-109) L 11/27/16 04:00 Carbon Dioxide 31 mEq/L (19-29) H 11/27/16 04:00 BUN 61 mg/dL (8-26) H D 11/27/16 04:00 Creatinine 8.59 mg/dL (0.72-1.25) H 11/27/16 04:00 Est GFR ( Amer) 8 (> 60) L 11/27/16 04:00 Est GFR (Non-Af Amer) 7 (> 60) L 11/27/16 04:00 Glucose 144 mg/dL (70-99) H 11/27/16 04:00 POC Glucose 137 (58-89) H 11/27/16 07:15 Hemoglobin A1c 7.1 % (-5.6) H 11/22/16 05:52 Calculated Osmolality 312 (280-300) H 11/27/16 04:00 Alkaline Phosphatase 446 Units/L (38-126) H 11/24/16 04:49 Troponin I 0.13 ng/mL (0-0.03) H* 11/20/16 00:57 B-Natriuretic Peptide 844 pg/mL (0-100) H 11/19/16 03:43 Albumin 2.8 g/dL (3.5-5.0) L 11/24/16 04:49 Globulin 3.7 g/dL (2.4-3.5) H 11/24/16 04:49 Albumin/Globulin Ratio 0.8 (1.1-2.2) L 11/24/16 04:49 - Clinical Findings Intake & Output: Intake & Output 11/26/16 11/27/16 11/27/16 23:59 07:59 15:59 Intake Total 430 / 430 997 / 997 Balance 430 / 430 997 / 997 Weight 125 kg - VTE Reasons for not Prescribing Prophylaxis: Not indicated-Anticoagulated or INR therapeutic Consult Discharge Plan - Plan Referrals: Arthur Pozo MD [Primary Care Provider] - 12/01/16 9:45 am (Please follow up as schedule..) <Kang Hoover - Last Filed: 11/27/16 09:24> Date of Encounter: 11/27/16 Objective PUL Vital signs: Last Vital Signs Temp 97.7 F 11/27/16 07:46 Pulse 84 11/27/16 09:00 Resp 14 11/27/16 09:00 BP 94/66 11/27/16 09:00 Pulse Ox 98 11/27/16 09:00 Ventilator Settings Ventilator Settings: Ventilator Settings, Last 8 Hours Ventilator Mode A/C Ventilator Mode A/C Ventilator Mode A/C Ventilator Mode A/C Ventilator Mode A/C Ventilator Mode A/C Ventilator Mode A/C Ventilator Mode A/C Ventilator Tidal Volume 550 Setting Ventilator Tidal Volume 550 Setting Ventilator Tidal Volume 550 Setting Ventilator Tidal Volume 550 Setting Ventilator Tidal Volume 550 Setting Ventilator Tidal Volume 550 Setting Ventilator Tidal Volume 550 Setting Ventilator Tidal Volume 550 Setting Ventilator Respiratory Rate 14 Setting Ventilator Respiratory Rate 14 Setting Ventilator Respiratory Rate 14 Setting Ventilator Respiratory Rate 14 Setting Ventilator Respiratory Rate 14 Setting Ventilator Respiratory Rate 14 Setting Ventilator Respiratory Rate 14 Setting Ventilator Respiratory Rate 14 Setting Actual Respiratory Rate 14 Actual Respiratory Rate 14 Actual Respiratory Rate 14 Actual Respiratory Rate 14 Actual Respiratory Rate 14 Actual Respiratory Rate 14 Actual Respiratory Rate 14 Actual Respiratory Rate 14 Positive End Expiratory 5 Pressure Positive End Expiratory 5 Pressure Positive End Expiratory 5 Pressure Positive End Expiratory 5 Pressure Positive End Expiratory 5 Pressure Positive End Expiratory 5 Pressure Positive End Expiratory 5 Pressure Positive End Expiratory 5 Pressure Peak Inspiratory Airway 29 Pressure Peak Inspiratory Airway 29 Pressure Peak Inspiratory Airway 28 Pressure Peak Inspiratory Airway 29 Pressure Peak Inspiratory Airway 31 Pressure Peak Inspiratory Airway 32 Pressure Peak Inspiratory Airway 33 Pressure Peak Inspiratory Airway 32 Pressure Results - Laboratory Findings CBC and BMP: 11/27/16 04:00 11/27/16 04:00 ABG ABG pH 7.31 pH Units (7.32-7.45) L 11/26/16 07:50 ABG pCO2 69 mmHg (35-45) H 11/26/16 07:50 ABG pO2 110 mmHg (85-104) H 11/26/16 07:50 ABG O2 Saturation 98 % (95-98) 11/26/16 07:50 PT/INR, D-dimer PT 43.0 Seconds (9.4-12.1) H 11/27/16 04:00 Abnormal lab findings: Abnormal lab results WBC 3.5 K/mcL (4.3-11.1) L D 11/27/16 04:00 RBC 3.81 M/mcL (4.19-5.50) L 11/27/16 04:00 Hgb 11.0 g/dL (12.9-16.9) L 11/27/16 04:00 Hct 35.0 % (37.5-50.1) L 11/27/16 04:00 MCHC 31.4 g/dL (31.6-35.5) L 11/27/16 04:00 RDW 20.8 % (11.5-14.5) H 11/27/16 04:00 Plt Count 106 K/mcL (140-400) L 11/27/16 04:00 Nucleated RBCs/100 WBC 0.5 /100 WBC (0) H 11/20/16 00:57 Platelet Estimate Slight Decrease (Normal) L 11/26/16 05:51 Immature Plt Fraction 10.7 % (1.1-6.1) H 11/21/16 12:21 Polychromasia 1+ (Not Present) A 11/26/16 05:51 Hypochromasia Present (Not Present) A 11/26/16 05:51 Basophilic Stippling 1+ (Not Present) A 11/25/16 07:02 Anisocytosis 1+ (Not Present) A 11/26/16 05:51 Microcytosis Present (Not Present) A 11/26/16 05:51 Macrocytosis Present (Not Present) A 11/26/16 05:51 PT 43.0 Seconds (9.4-12.1) H 11/27/16 04:00 ABG pH 7.31 pH Units (7.32-7.45) L 11/26/16 07:50 ABG pCO2 69 mmHg (35-45) H 11/26/16 07:50 ABG pO2 110 mmHg (85-104) H 11/26/16 07:50 ABG HCO3 34.7 mEQ/L (21-27) H 11/26/16 07:50 ABG Total CO2 36.8 mEq/L (20-26) H 11/26/16 07:50 ABG Base Excess 6.4 mEq/L (-2.0 to 3.0) H 11/26/16 07:50 Chloride 97 mEq/L (98-109) L 11/27/16 04:00 Carbon Dioxide 31 mEq/L (19-29) H 11/27/16 04:00 BUN 61 mg/dL (8-26) H D 11/27/16 04:00 Creatinine 8.59 mg/dL (0.72-1.25) H 11/27/16 04:00 Est GFR ( Amer) 8 (> 60) L 11/27/16 04:00 Est GFR (Non-Af Amer) 7 (> 60) L 11/27/16 04:00 Glucose 144 mg/dL (70-99) H 11/27/16 04:00 POC Glucose 137 (58-89) H 11/27/16 07:15 Hemoglobin A1c 7.1 % (-5.6) H 11/22/16 05:52 Calculated Osmolality 312 (280-300) H 11/27/16 04:00 Alkaline Phosphatase 446 Units/L (38-126) H 11/24/16 04:49 Troponin I 0.13 ng/mL (0-0.03) H* 11/20/16 00:57 B-Natriuretic Peptide 844 pg/mL (0-100) H 11/19/16 03:43 Albumin 2.8 g/dL (3.5-5.0) L 11/24/16 04:49 Globulin 3.7 g/dL (2.4-3.5) H 11/24/16 04:49 Albumin/Globulin Ratio 0.8 (1.1-2.2) L 11/24/16 04:49 - Clinical Findings Intake & Output: Intake & Output 11/26/16 11/27/16 11/27/16 23:59 07:59 15:59 Intake Total 430 / 430 997 / 997 Balance 430 / 430 997 / 997 Weight 125 kg 125 kg
--- NOTE | 2016-11-27 09:05 | Nephrology Progress Note ---
Date of Encounter: 11/27/16 Time of Encounter: 08:45 - Assessment and Plan (1) End stage renal disease on dialysis Current Visit: Yes Status: Chronic Hypercapneic respratory failure. HD on today, keeping MWF schedule. Subjective Principal diagnosis: aflutter with RVR Interval history: Intubated and sedated. FIO2 .40, peep5. Objective - Vital Signs Vital signs: Vital Signs Temp Pulse Resp BP Pulse Ox 11/27/16 08:00 85 14 93/58 96 11/27/16 07:46 97.7 F 11/27/16 07:27 14 97 11/27/16 07:15 90 11/27/16 07:00 91 14 105/68 98 11/27/16 06:07 40 103/69 98 11/27/16 06:00 90 14 105/68 97 11/27/16 05:00 89 14 112/61 98 11/27/16 04:38 96.5 F L 11/27/16 04:20 14 100 11/27/16 04:00 96.5 F L 88 14 113/28 97 11/27/16 03:00 92 14 92/67 99 11/27/16 02:01 14 101/71 100 11/27/16 02:00 90 14 101/71 100 11/27/16 01:00 90 14 90/64 100 11/27/16 00:02 14 99 11/27/16 00:00 96.6 F L 89 14 72/58 100 11/26/16 23:58 96.6 F L 11/26/16 23:00 89 14 81/62 99 11/26/16 22:05 14 100 11/26/16 22:00 90 14 99/70 100 11/26/16 21:00 89 14 82/63 100 11/26/16 20:27 96.3 F L 11/26/16 20:00 96.3 F L 89 14 92/68 100 11/26/16 19:46 14 103/68 100 11/26/16 19:00 90 14 103/74 100 11/26/16 18:00 90 14 97/77 99 11/26/16 17:03 14 97/84 97 11/26/16 17:00 90 14 94/68 97 11/26/16 16:00 92 14 106/72 97 11/26/16 15:28 14 125/92 100 11/26/16 15:22 97.6 F 11/26/16 15:18 14 125/92 99 11/26/16 15:00 106 14 125/92 99 11/26/16 14:00 106 14 87/60 98 11/26/16 13:45 14 93/73 98 11/26/16 13:00 100 14 84/68 98 11/26/16 12:00 102 14 93/71 97 11/26/16 11:48 98.5 F 11/26/16 11:14 14 96 11/26/16 11:00 102 14 89/71 96 11/26/16 10:00 113 14 111/65 97 11/26/16 09:46 14 82/61 97 Intake and Output 11/26/16 11/27/16 11/27/16 23:59 07:59 15:59 Intake Total 430 / 430 997 / 997 Balance 430 / 430 997 / 997 Intake: IV Fluids 200 / 200 500 / 500 FentaNYL (PF) 3,000 MCG 300 / 300 In 0.9 % Sodium Chloride 240 ML @ 200 MCG/HR 20 mls/hr IVC [facility] Rx#: [id number] Diprivan 1,000 mg In 100 200 / 200 200 / 200 ml @ 2 MCG/KG/MIN 1.542 mls/hr IVC .Q24H [facility] Rx#: [id number] Tube Feeding 230 / 230 497 / 497 Other: Weight 125 kg Blood Glucose* 135 137 - General Appearance General appearance: Present: well-developed, well-nourished, appears started age , obese EENT: Present: mucous membranes moist Neck: Present: no JVD Respiratory: Present: rhonchi Cardiology: Present: edema, irregular rhythm Gastrointestinal: Present: hypoactive bowel sounds, obese Integumentary: Present: warm and dry - Lab 11/27/16 04:00 11/27/16 04:00 Most recent lab results ABG pH 7.31 pH Units (7.32-7.45) L 11/26/16 07:50 ABG pCO2 69 mmHg (35-45) H 11/26/16 07:50 ABG pO2 110 mmHg (85-104) H 11/26/16 07:50 ABG HCO3 34.7 mEQ/L (21-27) H 11/26/16 07:50 ABG O2 Saturation 98 % (95-98) 11/26/16 07:50 Calcium 9.0 mg/dL (8.6-10.8) 11/27/16 04:00 Magnesium 2.0 mg/dL (1.6-2.6) 11/26/16 05:51 - VTE Reasons for not Prescribing Prophylaxis: Not indicated-Anticoagulated or INR therapeutic Consult Discharge Plan - Plan Referrals: Arthur Pozo MD [Primary Care Provider] - 12/01/16 9:45 am (Please follow up as schedule..)
[2016-11-27] MEDS: Budesonide/Formoterol 160/4.5 MDI IH SCH ×2 (09:52→21:27)
[2016-11-27] MEDS: Dexmedetomidine HCl 400 MCG/100 ML MLS IVC SCH (11:34)
[2016-11-27] MEDS ORDERED: 0.9 % Sodium Chloride 2,000 ML ONE (12:24)
[2016-11-28] MEDS: Insulin LISPRO 300 UNITS/3 ML VIAL SQ SCH ×6 (00:30→20:13)
[2016-11-28 02:51] LABS: Basophils % 0.7 %; Eosinophils # 0.1 K/mcL (0.0-0.6); Eosinophils % 1.6 %; Hematocrit 33.6 % (37.5-50.1); Hemoglobin 10.7 g/dL (12.9-16.9); Immature Granulocytes % 0.4 % (0-4); Lymphocytes # 0.9 K/mcL (0.6-4.6); Lymphocytes % 15.1 %; Mean Corpuscular HGB Conc 31.8 g/dL (31.6-35.5); Mean Corpuscular Hemoglobin 28.8 pg (28.0-33.3); Mean Corpuscular Volume 90.6 fL (83.0-100.0); Mean Platelet Volume 12.8 fL (9.4-12.4); Monocytes # 0.7 K/mcL (0.0-1.3); Monocytes % 11.4 %; Platelet Count 111 K/mcL (140-400); Red Blood Count 3.71 M/mcL (4.19-5.50); Red Cell Distribution Width 20.4 % (11.5-14.5); Segmented Neutrophils % 70.8 %
[2016-11-28 03:00] LABS: INR 2.9
[2016-11-28 03:03] LABS: Calcium 8.5 mg/dL (8.6-10.8); Potassium 4.2 mEq/L (3.5-4.5)
[2016-11-28] MEDS: Ipratropium Neb 0.5 MG NEBULIZER IH SCH ×4 (03:32→21:57)
[2016-11-28] MEDS: Levalbuterol Neb 0.63 MG/3 ML IH SCH ×4 (03:33→21:57)
[2016-11-28] MEDS: Dexmedetomidine HCl 400 MCG/100 ML MLS IVC SCH ×2 (04:43→20:39)
[2016-11-28] MEDS: FentaNYL (PF) 3,000 MCG in 0.9 % Sodium Chloride 240 ML IVC SCH (05:50)
--- NOTE | 2016-11-28 07:58 | Pulmonology Progress Note ---
Date of Encounter: 11/28/16 Time of Encounter: 07:56 Assessment and Plan (1) Acute and chronic respiratory failure with hypercapnia Current Visit: Yes Status: Acute Patient remains on full ventilatory support for treatment of his acute on chronic respiratory failure with hypoxia and hypercapnia. Continue current treatment. Attempt to wean sedation as tolerated. Continue regular scheduled dialysis treatments. (2) End stage renal disease on dialysis Current Visit: Yes Status: Chronic (3) Hx of noncompliance with medical treatment, presenting hazards to health Current Visit: No Status: Acute (4) Atrial fibrillation Current Visit: Yes Status: Chronic Qualifiers: Atrial fibrillation type: chronic Qualified Code(s): I48.2 - Chronic atrial fibrillation (5) Severe sleep apnea Current Visit: No Status: Acute (6) Diabetes Current Visit: No Status: Acute Qualifiers: Diabetes mellitus type: type 2 Diabetes mellitus complication status: with unspecified complications Diabetes mellitus detention insulin use: with detention use Qualified Code(s): E11.8 - Type 2 diabetes mellitus with unspecified complications; Z79.4 - retirement (current) use of insulin (7) Encephalopathy acute Current Visit: No Status: Resolved Subjective Principal diagnosis: aflutter with RVR Interval history: Patient seen and examined at bedside. Patient remains intubated and sedated. He does not appear in any acute distress. No acute events overnight. Objective PUL Vital signs: Last Vital Signs Temp 98.4 F 11/28/16 03:40 Pulse 101 11/28/16 06:00 Resp 14 11/28/16 06:00 BP 83/68 11/28/16 06:00 Pulse Ox 94 11/28/16 06:00 General appearance: no acute distress ENT: oropharynx moist Auscultation: bilateral: rhonchi Cardiovascular: irregular rhythm Gastrointestinal: normoactive bowel sounds, soft, non-tender, non-distended Extremities: no cyanosis, no clubbing, edema (1+) unable to assess due to mental status Ventilator Settings Ventilator Settings: Ventilator Settings, Last 8 Hours Ventilator Mode A/C Ventilator Mode A/C Ventilator Mode A/C Ventilator Mode A/C Ventilator Mode A/C Ventilator Mode A/C Ventilator Mode A/C Ventilator Mode A/C Ventilator Mode A/C Ventilator Mode A/C Ventilator Mode A/C Ventilator Tidal Volume 550 Setting Ventilator Tidal Volume 550 Setting Ventilator Tidal Volume 550 Setting Ventilator Tidal Volume 550 Setting Ventilator Tidal Volume 550 Setting Ventilator Tidal Volume 550 Setting Ventilator Tidal Volume 550 Setting Ventilator Tidal Volume 550 Setting Ventilator Tidal Volume 550 Setting Ventilator Tidal Volume 550 Setting Ventilator Tidal Volume 550 Setting Ventilator Respiratory Rate 14 Setting Ventilator Respiratory Rate 14 Setting Ventilator Respiratory Rate 14 Setting Ventilator Respiratory Rate 14 Setting Ventilator Respiratory Rate 14 Setting Ventilator Respiratory Rate 14 Setting Ventilator Respiratory Rate 14 Setting Ventilator Respiratory Rate 14 Setting Ventilator Respiratory Rate 14 Setting Ventilator Respiratory Rate 14 Setting Ventilator Respiratory Rate 14 Setting Actual Respiratory Rate 14 Actual Respiratory Rate 14 Actual Respiratory Rate 14 Actual Respiratory Rate 14 Actual Respiratory Rate 14 Actual Respiratory Rate 14 Actual Respiratory Rate 14 Actual Respiratory Rate 14 Actual Respiratory Rate 14 Actual Respiratory Rate 14 Actual Respiratory Rate 14 Positive End Expiratory 5 Pressure Positive End Expiratory 5 Pressure Positive End Expiratory 5 Pressure Positive End Expiratory 5 Pressure Positive End Expiratory 5 Pressure Positive End Expiratory 5 Pressure Positive End Expiratory 5 Pressure Positive End Expiratory 5 Pressure Positive End Expiratory 5 Pressure Positive End Expiratory 5 Pressure Positive End Expiratory 5 Pressure Peak Inspiratory Airway 37 Pressure Peak Inspiratory Airway 36 Pressure Peak Inspiratory Airway 37 Pressure Peak Inspiratory Airway 36 Pressure Peak Inspiratory Airway 36 Pressure Peak Inspiratory Airway 35 Pressure Peak Inspiratory Airway 38 Pressure Peak Inspiratory Airway 37 Pressure Peak Inspiratory Airway 35 Pressure Peak Inspiratory Airway 35 Pressure Peak Inspiratory Airway 34 Pressure Results - Laboratory Findings CBC and BMP: 11/28/16 02:43 11/28/16 02:43 ABG ABG pH 7.31 pH Units (7.32-7.45) L 11/26/16 07:50 ABG pCO2 69 mmHg (35-45) H 11/26/16 07:50 ABG pO2 110 mmHg (85-104) H 11/26/16 07:50 ABG O2 Saturation 98 % (95-98) 11/26/16 07:50 PT/INR, D-dimer PT 32.0 Seconds (9.4-12.1) H 11/28/16 02:43 Abnormal lab findings: Abnormal lab results RBC 3.71 M/mcL (4.19-5.50) L 11/28/16 02:43 Hgb 10.7 g/dL (12.9-16.9) L 11/28/16 02:43 Hct 33.6 % (37.5-50.1) L 11/28/16 02:43 RDW 20.4 % (11.5-14.5) H 11/28/16 02:43 Plt Count 111 K/mcL (140-400) L 11/28/16 02:43 MPV 12.8 fL (9.4-12.4) H 11/28/16 02:43 Nucleated RBCs/100 WBC 0.5 /100 WBC (0) H 11/20/16 00:57 Platelet Estimate Slight Decrease (Normal) L 11/26/16 05:51 Immature Plt Fraction 10.7 % (1.1-6.1) H 11/21/16 12:21 Polychromasia 1+ (Not Present) A 11/26/16 05:51 Hypochromasia Present (Not Present) A 11/26/16 05:51 Basophilic Stippling 1+ (Not Present) A 11/25/16 07:02 Anisocytosis 1+ (Not Present) A 11/26/16 05:51 Microcytosis Present (Not Present) A 11/26/16 05:51 Macrocytosis Present (Not Present) A 11/26/16 05:51 PT 32.0 Seconds (9.4-12.1) H 11/28/16 02:43 ABG pH 7.31 pH Units (7.32-7.45) L 11/26/16 07:50 ABG pCO2 69 mmHg (35-45) H 11/26/16 07:50 ABG pO2 110 mmHg (85-104) H 11/26/16 07:50 ABG HCO3 34.7 mEQ/L (21-27) H 11/26/16 07:50 ABG Total CO2 36.8 mEq/L (20-26) H 11/26/16 07:50 ABG Base Excess 6.4 mEq/L (-2.0 to 3.0) H 11/26/16 07:50 Sodium 134 mEq/L (136-145) L 11/28/16 02:43 Chloride 95 mEq/L (98-109) L 11/28/16 02:43 BUN 39 mg/dL (8-26) H D 11/28/16 02:43 Creatinine 6.43 mg/dL (0.72-1.25) H 11/28/16 02:43 Est GFR ( Amer) 11 (> 60) L 11/28/16 02:43 Est GFR (Non-Af Amer) 9 (> 60) L 11/28/16 02:43 Glucose 140 mg/dL (70-99) H 11/28/16 02:43 POC Glucose 117 (58-89) H 11/28/16 07:47 Hemoglobin A1c 7.1 % (-5.6) H 11/22/16 05:52 Calcium 8.5 mg/dL (8.6-10.8) L 11/28/16 02:43 Alkaline Phosphatase 446 Units/L (38-126) H 11/24/16 04:49 Troponin I 0.13 ng/mL (0-0.03) H* 11/20/16 00:57 B-Natriuretic Peptide 844 pg/mL (0-100) H 11/19/16 03:43 Albumin 2.8 g/dL (3.5-5.0) L 11/24/16 04:49 Globulin 3.7 g/dL (2.4-3.5) H 11/24/16 04:49 Albumin/Globulin Ratio 0.8 (1.1-2.2) L 11/24/16 04:49 - Clinical Findings Intake & Output: Intake & Output 11/27/16 11/27/16 11/28/16 15:59 23:59 07:59 Intake Total 1424 / 1424 490 / 490 751 / 751 Output Total 3996 / 3996 0 / 0 0 / 0 Balance -2572 / -2572 490 / 490 751 / 751 Weight 125 kg 123.2 kg - VTE Reasons for not Prescribing Prophylaxis: Not indicated-Anticoagulated or INR therapeutic Consult Discharge Plan - Plan Referrals: Arthur Pozo MD [Primary Care Provider] - 12/01/16 9:45 am (Please follow up as schedule..)
--- NOTE | 2016-11-28 08:54 | Nephrology Progress Note ---
Date of Encounter: 11/28/16 Time of Encounter: 08:53 - Assessment and Plan (1) End stage renal disease on dialysis Current Visit: Yes Status: Chronic Patient will continue to be supported with dialysis every Wednesday. She was recurrent respiratory failure and hypercapnia related to severe sleep apnea as well as substance abuse. (2) Nonischemic cardiomyopathy Current Visit: No Status: Chronic (3) Atrial fibrillation Current Visit: No Status: Acute Qualifiers: Atrial fibrillation type: paroxysmal Qualified Code(s): I48.0 - Paroxysmal atrial fibrillation Subjective Principal diagnosis: aflutter with RVR Interval history: The patient remains sedated on the ventilator. He received dialysis yesterday. He is hemodynamically stable. Objective - Vital Signs Vital signs: Vital Signs Temp Pulse Resp BP Pulse Ox 11/28/16 08:03 14 96 11/28/16 07:30 98.0 F 11/28/16 06:00 101 14 83/68 94 11/28/16 05:51 14 88/67 95 11/28/16 05:00 94 14 94/59 93 11/28/16 04:00 80 14 95/63 95 11/28/16 03:40 98.4 F 11/28/16 03:35 14 81/59 97 11/28/16 03:00 96 14 89/51 94 11/28/16 02:05 14 97 11/28/16 02:00 104 14 89/59 96 11/28/16 01:00 109 14 87/70 95 11/28/16 00:30 107 14 80/69 94 11/28/16 00:05 14 95 11/27/16 23:00 98.9 F 97 14 115/45 93 11/27/16 22:00 118 14 74/58 94 11/27/16 21:30 14 94 11/27/16 21:00 106 14 86/64 94 11/27/16 20:30 100 14 89/52 94 11/27/16 19:45 98.5 F 11/27/16 19:37 14 80/54 94 11/27/16 19:25 118 14 80/63 93 11/27/16 18:00 97 14 94/59 96 11/27/16 17:40 14 93 11/27/16 17:00 103 14 77/53 93 11/27/16 16:00 99.0 F 11/27/16 15:57 14 93 11/27/16 15:28 98.1 F 18 99/66 11/27/16 15:00 117 14 80/60 95 11/27/16 14:00 105 99/66 11/27/16 13:50 99/66 11/27/16 13:45 77/50 11/27/16 13:40 77/50 11/27/16 13:35 85/60 11/27/16 13:30 85/60 11/27/16 13:15 78/43 11/27/16 13:00 86/40 11/27/16 12:45 88/44 11/27/16 12:30 89/51 11/27/16 12:15 102/85 11/27/16 12:00 84/63 11/27/16 11:45 89/60 11/27/16 11:42 14 97 11/27/16 11:30 99/59 11/27/16 11:15 89/57 11/27/16 11:00 98.3 F 98 73/54 11/27/16 10:45 98/63 11/27/16 10:30 85/58 11/27/16 10:15 96/70 11/27/16 10:00 97.7 F 94 18 96/70 98 11/27/16 09:53 14 98 11/27/16 09:00 84 14 94/66 98 Intake and Output 11/27/16 11/28/16 11/28/16 23:59 07:59 15:59 Intake Total 490 / 490 751 / 751 Output Total 0 / 0 0 / 0 Balance 490 / 490 751 / 751 Intake: IV Fluids 200 / 200 500 / 500 FentaNYL (PF) 3,000 MCG 300 / 300 In 0.9 % Sodium Chloride 240 ML @ 200 MCG/HR 20 mls/hr IVC [facility] Rx#: [id number] Diprivan 1,000 mg In 100 200 / 200 200 / 200 ml @ 2 MCG/KG/MIN 1.542 mls/hr IVC .Q24H [facility] Rx#: [id number] Tube Feeding 290 / 290 251 / 251 Output: Urine 0 / 0 0 / 0 Other: Weight 123.2 kg Blood Glucose* 111 107 Patient Weight 11/28/16 23:59 Weight 123.2 kg - General Appearance Exam: Patient sedated on the ventilator. He is resting comfortably. Vital signs are stable. Lungs much breath sounds otherwise clear. Heart irregular rate and rhythm. Abdomen is protuberant. There is mild lower extremity swelling. There is a functioning AV fistula in the left upper extremity. - Lab 11/28/16 02:43 11/28/16 02:43 Most recent lab results ABG pH 7.31 pH Units (7.32-7.45) L 11/26/16 07:50 ABG pCO2 69 mmHg (35-45) H 11/26/16 07:50 ABG pO2 110 mmHg (85-104) H 11/26/16 07:50 ABG HCO3 34.7 mEQ/L (21-27) H 11/26/16 07:50 ABG O2 Saturation 98 % (95-98) 11/26/16 07:50 Calcium 8.5 mg/dL (8.6-10.8) L 11/28/16 02:43 Magnesium 2.0 mg/dL (1.6-2.6) 11/26/16 05:51 - VTE Reasons for not Prescribing Prophylaxis: Not indicated-Anticoagulated or INR therapeutic Consult Discharge Plan - Plan Referrals: Arthur Pozo MD [Primary Care Provider] - 12/01/16 9:45 am (Please follow up as schedule..)
[2016-11-28] MEDS: Nicotine 14 MG PATCH.TD24 TD SCH (10:12)
[2016-11-28] MEDS: Chlorhexidine Rinse 15 ML MOUTHWASH MM SCH ×2 (10:12→19:50)
[2016-11-28] MEDS: Calcium Acetate 667 MG CAPSULE PO SCH ×3 (10:13→16:58)
[2016-11-28] MEDS: *HR* Amiodarone 200 MG TABLET PO SCH (10:13)
[2016-11-28] MEDS: Pantoprazole 40 MG VIAL IVP SCH (10:14)
[2016-11-28] MEDS: Budesonide/Formoterol 160/4.5 MDI IH SCH ×2 (10:25→21:57)
[2016-11-29] MEDS: Insulin LISPRO 300 UNITS/3 ML VIAL SQ SCH ×7 (00:02→23:16)
[2016-11-29 01:34] LABS: Basophils % 0.4 %; Eosinophils # 0.1 K/mcL (0.0-0.6); Eosinophils % 1.2 %; Hematocrit 36.4 % (37.5-50.1); Hemoglobin 11.7 g/dL (12.9-16.9); Immature Granulocytes % 0.3 % (0-4); Lymphocytes # 0.7 K/mcL (0.6-4.6); Lymphocytes % 9.8 %; Mean Corpuscular HGB Conc 32.1 g/dL (31.6-35.5); Mean Corpuscular Volume 90.3 fL (83.0-100.0); Mean Platelet Volume 12.4 fL (9.4-12.4); Monocytes # 0.7 K/mcL (0.0-1.3); Monocytes % 10.3 %; Neutrophils # 5.4 K/mcL (1.6-8.9); Platelet Count 111 K/mcL (140-400); Red Blood Count 4.03 M/mcL (4.19-5.50); Red Cell Distribution Width 20.2 % (11.5-14.5)
[2016-11-29 01:39] LABS: INR 2.3; Prothrombin Time 25.9 Seconds (9.4-12.1)
[2016-11-29 01:58] LABS: Potassium 5.2 mEq/L (3.5-4.5)
[2016-11-29] MEDS: Ipratropium Neb 0.5 MG NEBULIZER IH SCH ×4 (04:07→21:56)
[2016-11-29] MEDS: Levalbuterol Neb 0.63 MG/3 ML IH SCH ×4 (04:07→21:56)
[2016-11-29] MEDS: Chlorhexidine Rinse 15 ML MOUTHWASH MM SCH ×2 (08:09→19:59)
[2016-11-29] MEDS: Pantoprazole 40 MG VIAL IVP SCH (08:09)
[2016-11-29] MEDS: Nicotine 14 MG PATCH.TD24 TD SCH (08:09)
[2016-11-29] MEDS: *HR* Amiodarone 200 MG TABLET PO SCH (08:10)
[2016-11-29] MEDS: Calcium Acetate 667 MG CAPSULE PO SCH ×3 (08:10→17:16)
--- NOTE | 2016-11-29 08:23 | Nephrology Progress Note ---
Date of Encounter: 11/29/16 Time of Encounter: 08:10 - Assessment and Plan (1) End stage renal disease on dialysis Current Visit: Yes Status: Chronic Hypercapneic respratory failure. HD on tomorrow, keeping MWF schedule. Subjective Principal diagnosis: aflutter with RVR Interval history: Intubated and sedated. FIO2 .40, peep5. Objective - Vital Signs Vital signs: Vital Signs Temp Pulse Resp BP Pulse Ox 11/29/16 06:10 14 103/83 95 11/29/16 06:00 81 14 103/83 94 11/29/16 05:00 85 14 93/68 95 11/29/16 04:07 14 97/83 95 11/29/16 04:00 84 14 97/83 95 11/29/16 03:30 97.4 F L 11/29/16 03:00 78 14 117/76 95 11/29/16 02:31 14 94/74 94 11/29/16 02:00 81 14 91/69 94 11/29/16 01:00 85 14 91/76 94 11/29/16 00:00 98 14 103/69 96 11/28/16 23:59 14 83/50 96 11/28/16 23:10 97.6 F 11/28/16 23:00 99 14 72/48 98 11/28/16 22:00 78 14 91/60 96 11/28/16 21:57 14 91/67 95 11/28/16 21:30 91 14 97/67 92 11/28/16 20:00 81 14 101/71 92 11/28/16 19:53 14 119/98 94 11/28/16 19:45 97.5 F L 11/28/16 19:00 93 14 102/69 92 11/28/16 18:00 91 14 104/63 94 11/28/16 17:53 14 97 11/28/16 17:00 89 15 127/98 95 11/28/16 16:00 83 16 105/88 96 11/28/16 15:39 14 95 11/28/16 15:00 96 18 98/70 96 11/28/16 14:00 94 15 116/66 96 11/28/16 13:00 88 15 123/90 95 11/28/16 12:00 88 14 106/85 96 11/28/16 11:28 14 96 07/22/17 11:00 89 15 94/79 96 11/28/16 10:00 103 16 101/75 95 11/28/16 09:00 95 15 114/79 94 Intake and Output 11/28/16 11/29/16 11/29/16 23:59 07:59 15:59 Intake Total 882 / 882 449 / 449 100 / 100 Output Total 0 / 0 0 / 0 Balance 882 / 882 449 / 449 100 / 100 Intake: IV Fluids 200 / 200 100 / 100 100 / 100 Diprivan 1,000 mg In 100 200 / 200 100 / 100 100 / 100 ml @ 2 MCG/KG/MIN 1.542 mls/hr IVC .Q24H [facility] Rx#: [id number] Tube Feeding 682 / 682 349 / 349 Output: Urine 0 / 0 0 / 0 Other: Weight 125.91 kg Blood Glucose* 122 125 Patient Weight 11/29/16 23:59 Weight 125.91 kg - General Appearance General appearance: Present: well-developed, well-nourished, appears started age , obese EENT: Present: mucous membranes moist Neck: Present: no JVD Respiratory: Present: course breath sounds Cardiology: Present: edema, irregular rhythm Gastrointestinal: Present: hypoactive bowel sounds, distended Integumentary: Present: warm and dry - Lab 11/29/16 01:27 11/29/16 01:27 Most recent lab results ABG pH 7.31 pH Units (7.32-7.45) L 11/26/16 07:50 ABG pCO2 69 mmHg (35-45) H 11/26/16 07:50 ABG pO2 110 mmHg (85-104) H 11/26/16 07:50 ABG HCO3 34.7 mEQ/L (21-27) H 11/26/16 07:50 ABG O2 Saturation 98 % (95-98) 11/26/16 07:50 Calcium 9.0 mg/dL (8.6-10.8) 11/29/16 01:27 Magnesium 2.0 mg/dL (1.6-2.6) 11/26/16 05:51 - VTE Reasons for not Prescribing Prophylaxis: Not indicated-Anticoagulated or INR therapeutic Consult Discharge Plan - Plan Referrals: Arthur Pozo MD [Primary Care Provider] - 12/01/16 9:45 am (Please follow up as schedule..)
--- NOTE | 2016-11-29 08:29 | Pulmonology Progress Note ---
Date of Encounter: 11/29/16 Time of Encounter: 08:26 Assessment and Plan (1) Acute and chronic respiratory failure with hypercapnia Current Visit: Yes Status: Acute Patient remains on full ventilatory support for treatment of his acute on chronic respiratory failure with hypoxia and hypercapnia. Continue current treatment. Attempt to wean sedation as tolerated. CPAP trial tomorrow. Continue regular scheduled dialysis treatments. (2) End stage renal disease on dialysis Current Visit: Yes Status: Chronic (3) Hx of noncompliance with medical treatment, presenting hazards to health Current Visit: No Status: Acute (4) Atrial fibrillation Current Visit: Yes Status: Chronic Qualifiers: Atrial fibrillation type: chronic Qualified Code(s): I48.2 - Chronic atrial fibrillation (5) Severe sleep apnea Current Visit: No Status: Acute (6) Diabetes Current Visit: No Status: Acute Qualifiers: Diabetes mellitus type: type 2 Diabetes mellitus complication status: with unspecified complications Diabetes mellitus intermediate insulin use: with intermediate use Qualified Code(s): E11.8 - Type 2 diabetes mellitus with unspecified complications; Z79.4 - retirement (current) use of insulin (7) Encephalopathy acute Current Visit: No Status: Resolved Subjective Principal diagnosis: aflutter with RVR Interval history: Patient seen and examined at bedside. Patient remains intubated and sedated. He does not appear in any acute distress. No acute events overnight. Objective PUL Vital signs: Last Vital Signs Temp 97.4 F L 11/29/16 03:30 Pulse 81 11/29/16 06:00 Resp 14 11/29/16 06:10 BP 103/83 11/29/16 06:10 Pulse Ox 95 11/29/16 06:10 General appearance: no acute distress ENT: oropharynx moist Auscultation: bilateral: rhonchi Cardiovascular: irregular rhythm Gastrointestinal: normoactive bowel sounds, soft, non-tender, non-distended Extremities: no cyanosis, no clubbing, edema (1+) unable to assess due to mental status Ventilator Settings Ventilator Settings: Ventilator Settings, Last 8 Hours Ventilator Mode A/C Ventilator Mode A/C Ventilator Mode A/C Ventilator Mode A/C Ventilator Mode A/C Ventilator Mode A/C Ventilator Mode A/C Ventilator Mode A/C Ventilator Mode A/C Ventilator Tidal Volume 550 Setting Ventilator Tidal Volume 550 Setting Ventilator Tidal Volume 550 Setting Ventilator Tidal Volume 550 Setting Ventilator Tidal Volume 550 Setting Ventilator Tidal Volume 550 Setting Ventilator Tidal Volume 550 Setting Ventilator Tidal Volume 550 Setting Ventilator Tidal Volume 550 Setting Ventilator Respiratory Rate 14 Setting Ventilator Respiratory Rate 14 Setting Ventilator Respiratory Rate 14 Setting Ventilator Respiratory Rate 14 Setting Ventilator Respiratory Rate 14 Setting Ventilator Respiratory Rate 14 Setting Ventilator Respiratory Rate 14 Setting Ventilator Respiratory Rate 14 Setting Ventilator Respiratory Rate 14 Setting Actual Respiratory Rate 14 Actual Respiratory Rate 14 Actual Respiratory Rate 14 Actual Respiratory Rate 14 Actual Respiratory Rate 14 Actual Respiratory Rate 14 Actual Respiratory Rate 14 Actual Respiratory Rate 14 Actual Respiratory Rate 14 Positive End Expiratory 5 Pressure Positive End Expiratory 5 Pressure Positive End Expiratory 5 Pressure Positive End Expiratory 5 Pressure Positive End Expiratory 5 Pressure Positive End Expiratory 5 Pressure Positive End Expiratory 5 Pressure Positive End Expiratory 5 Pressure Positive End Expiratory 5 Pressure Peak Inspiratory Airway 31 Pressure Peak Inspiratory Airway 31 Pressure Peak Inspiratory Airway 35 Pressure Peak Inspiratory Airway 34 Pressure Peak Inspiratory Airway 36 Pressure Peak Inspiratory Airway 33 Pressure Peak Inspiratory Airway 32 Pressure Peak Inspiratory Airway 34 Pressure Peak Inspiratory Airway 34 Pressure Results - Laboratory Findings CBC and BMP: 11/29/16 01:27 11/29/16 01:27 ABG ABG pH 7.31 pH Units (7.32-7.45) L 11/26/16 07:50 ABG pCO2 69 mmHg (35-45) H 11/26/16 07:50 ABG pO2 110 mmHg (85-104) H 11/26/16 07:50 ABG O2 Saturation 98 % (95-98) 11/26/16 07:50 PT/INR, D-dimer PT 25.9 Seconds (9.4-12.1) H 11/29/16 01:27 Abnormal lab findings: Abnormal lab results RBC 4.03 M/mcL (4.19-5.50) L 11/29/16 01:27 Hgb 11.7 g/dL (12.9-16.9) L 11/29/16 01:27 Hct 36.4 % (37.5-50.1) L 11/29/16 01:27 RDW 20.2 % (11.5-14.5) H 11/29/16 01:27 Plt Count 111 K/mcL (140-400) L 11/29/16 01:27 Nucleated RBCs/100 WBC 0.5 /100 WBC (0) H 11/20/16 00:57 Platelet Estimate Slight Decrease (Normal) L 11/26/16 05:51 Immature Plt Fraction 10.7 % (1.1-6.1) H 11/21/16 12:21 Polychromasia 1+ (Not Present) A 11/26/16 05:51 Hypochromasia Present (Not Present) A 11/26/16 05:51 Basophilic Stippling 1+ (Not Present) A 11/25/16 07:02 Anisocytosis 1+ (Not Present) A 11/26/16 05:51 Microcytosis Present (Not Present) A 11/26/16 05:51 Macrocytosis Present (Not Present) A 11/26/16 05:51 PT 25.9 Seconds (9.4-12.1) H 11/29/16 01:27 ABG pH 7.31 pH Units (7.32-7.45) L 11/26/16 07:50 ABG pCO2 69 mmHg (35-45) H 11/26/16 07:50 ABG pO2 110 mmHg (85-104) H 11/26/16 07:50 ABG HCO3 34.7 mEQ/L (21-27) H 11/26/16 07:50 ABG Total CO2 36.8 mEq/L (20-26) H 11/26/16 07:50 ABG Base Excess 6.4 mEq/L (-2.0 to 3.0) H 11/26/16 07:50 Sodium 132 mEq/L (136-145) L 11/29/16 01:27 Potassium 5.2 mEq/L (3.5-4.5) H D 11/29/16 01:27 Chloride 94 mEq/L (98-109) L 11/29/16 01:27 BUN 50 mg/dL (8-26) H D 11/29/16 01:27 Creatinine 7.50 mg/dL (0.72-1.25) H 11/29/16 01:27 Est GFR ( Amer) 10 (> 60) L 11/29/16 01:27 Est GFR (Non-Af Amer) 8 (> 60) L 11/29/16 01:27 Glucose 137 mg/dL (70-99) H 11/29/16 01:27 POC Glucose 128 (58-89) H 11/29/16 07:44 Hemoglobin A1c 7.1 % (-5.6) H 11/22/16 05:52 Alkaline Phosphatase 446 Units/L (38-126) H 11/24/16 04:49 Troponin I 0.13 ng/mL (0-0.03) H* 11/20/16 00:57 B-Natriuretic Peptide 844 pg/mL (0-100) H 11/19/16 03:43 Albumin 2.8 g/dL (3.5-5.0) L 11/24/16 04:49 Globulin 3.7 g/dL (2.4-3.5) H 11/24/16 04:49 Albumin/Globulin Ratio 0.8 (1.1-2.2) L 11/24/16 04:49 - Clinical Findings Intake & Output: Intake & Output 11/28/16 11/29/16 11/29/16 23:59 07:59 15:59 Intake Total 882 / 882 449 / 449 100 / 100 Output Total 0 / 0 0 / 0 Balance 882 / 882 449 / 449 100 / 100 Weight 125.91 kg - VTE Reasons for not Prescribing Prophylaxis: Not indicated-Anticoagulated or INR therapeutic Consult Discharge Plan - Plan Referrals: Arthur Pozo MD [Primary Care Provider] - 12/01/16 9:45 am (Please follow up as schedule..)
[2016-11-29] MEDS ORDERED: Sennosides 8.6 MG TABLET PO PRN (09:19)
[2016-11-29] MEDS: Budesonide/Formoterol 160/4.5 MDI IH SCH ×2 (11:02→21:57)
[2016-11-29] MEDS: Docusate Oral Soln 100 MG/10 ML UDC GTUBE SCH ×2 (11:56→19:59)
[2016-11-29] MEDS: FentaNYL (PF) 3,000 MCG in 0.9 % Sodium Chloride 240 ML IVC SCH (12:19)
[2016-11-29] MEDS: Dexmedetomidine HCl 400 MCG/100 ML MLS IVC SCH (20:00)
[2016-11-30 01:58] LABS: Basophils % 0.3 %
[2016-11-30 01:59] LABS: Eosinophils # 0.1 K/mcL (0.0-0.6); Eosinophils % 1.4 %; Hematocrit 38.1 % (37.5-50.1); Immature Granulocytes % 0.3 % (0-4); Immature Platelets 13.1 % (1.1-6.1); Lymphocytes # 0.6 K/mcL (0.6-4.6); Lymphocytes % 7.9 %; Mean Corpuscular HGB Conc 31.5 g/dL (31.6-35.5); Mean Corpuscular Volume 88.8 fL (83.0-100.0); Monocytes # 0.6 K/mcL (0.0-1.3); Monocytes % 8.4 %; Platelet Count 122 K/mcL (140-400); Red Blood Count 4.29 M/mcL (4.19-5.50); Red Cell Distribution Width 20.1 % (11.5-14.5); Segmented Neutrophils % 81.7 %
[2016-11-30 02:02] LABS: Neutrophils # 6.1 K/mcL (1.6-8.9)
[2016-11-30 02:16] LABS: Calcium 9.2 mg/dL (8.6-10.8); Potassium 5.7 mEq/L (3.5-4.5)
[2016-11-30] MEDS: Insulin LISPRO 300 UNITS/3 ML VIAL SQ SCH ×6 (04:04→23:48)
[2016-11-30] MEDS: FentaNYL (PF) 3,000 MCG in 0.9 % Sodium Chloride 240 ML IVC SCH (04:04)
[2016-11-30] MEDS: Levalbuterol Neb 0.63 MG/3 ML IH SCH ×4 (04:24→21:35)
[2016-11-30] MEDS: Ipratropium Neb 0.5 MG NEBULIZER IH SCH ×4 (04:24→21:35)
[2016-11-30 05:11] LABS: ABG Base Excess 2.3 mEq/L (-2.0 to 3.0); ABG HCO3 28.3 mEQ/L (21-27); ABG Oxygen Saturation 90 % (95-98); ABG PCO2 49 mmHg (35-45); ABG PH 7.37 pH Units (7.32-7.45); ABG PO2 61 mmHg (85-104); ABG TCO2 29.8 mEq/L (20-26)
[2016-11-30 05:13] LABS: Blood Gas FiO2 40 %
[2016-11-30] MEDS: Dexmedetomidine HCl 400 MCG/100 ML MLS IVC SCH ×4 (06:03→22:15)
--- NOTE | 2016-11-30 07:49 | Pulmonology Progress Note ---
<Hiram Bonilla - Last Filed: 11/30/16 11:43> Date of Encounter: 11/30/16 Time of Encounter: 07:49 Assessment and Plan (1) Acute and chronic respiratory failure with hypercapnia Current Visit: Yes Status: Acute Neuropsych: Patient is awake and following commands. Sedating medications have been held in anticipation of extubation Pulm: Acute on chronic hypercapnic respiratory failure requiring ventilatory support. Patient appears to improve from a pulmonary standpoint. We will attempt spontaneous breathing trial with the ultimate goal of liberation. Cards: History of underlying atrial fibrillation. Currently rate controlled. Currently on Coumadin, pharmacy to dose. FEN-GI: Tube feeds have been held due to planned extubation today. We will start diet when able. Renal: End-stage renal disease with regular scheduled dialysis Wednesday, Wednesday , Wednesday. Plan for dialysis today with fluid removal per nephrology. ID: No evidence of infectious process. Continue standard precautions. Heme/Onc: Hemoglobin is stable at 8.9. No evidence of active bleeding despite acutely elevated INR . Continue with mechanical DVT prophylaxis at this time. Endo: Blood sugars under good control, continue sliding scale insulin. Integ/MSK: Continue skin care per ICU protocol. 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 Patient remains intubated and sedated. He does not appear in any acute distress. No acute events overnight. Objective PUL Vital signs: Last Vital Signs Temp 97.6 F 11/30/16 03:44 Pulse 79 11/30/16 06:00 Resp 20 11/30/16 06:30 BP 128/91 11/30/16 06:30 Pulse Ox 95 11/30/16 06:30 General appearance: no acute distress ENT: oropharynx moist Effort: normal Auscultation: bilateral: rhonchi Cardiovascular: irregular rhythm Gastrointestinal: normoactive bowel sounds, soft, non-tender Extremities: no cyanosis, no clubbing, edema (1+) unable to assess due to mental status Ventilator Settings Ventilator Settings: Ventilator Settings, Last 8 Hours Ventilator Mode CPAP Ventilator Mode A/C Ventilator Mode A/C Ventilator Mode A/C Ventilator Mode A/C Ventilator Mode A/C Ventilator Mode A/C Ventilator Mode A/C Ventilator Mode A/C Ventilator Mode A/C Ventilator Mode A/C Ventilator Mode A/C Ventilator Tidal Volume 550 Setting Ventilator Tidal Volume 550 Setting Ventilator Tidal Volume 550 Setting Ventilator Tidal Volume 550 Setting Ventilator Tidal Volume 550 Setting Ventilator Tidal Volume 550 Setting Ventilator Tidal Volume 550 Setting Ventilator Tidal Volume 550 Setting Ventilator Tidal Volume 550 Setting Ventilator Tidal Volume 550 Setting Ventilator Tidal Volume 550 Setting Ventilator Respiratory Rate 14 Setting Ventilator Respiratory Rate 14 Setting Ventilator Respiratory Rate 14 Setting Ventilator Respiratory Rate 14 Setting Ventilator Respiratory Rate 14 Setting Ventilator Respiratory Rate 14 Setting Ventilator Respiratory Rate 14 Setting Ventilator Respiratory Rate 14 Setting Ventilator Respiratory Rate 14 Setting Ventilator Respiratory Rate 14 Setting Ventilator Respiratory Rate 14 Setting Actual Respiratory Rate 20 Actual Respiratory Rate 14 Actual Respiratory Rate 14 Actual Respiratory Rate 14 Actual Respiratory Rate 14 Actual Respiratory Rate 14 Actual Respiratory Rate 14 Actual Respiratory Rate 14 Actual Respiratory Rate 14 Actual Respiratory Rate 14 Actual Respiratory Rate 14 Positive End Expiratory 5 Pressure Positive End Expiratory 5 Pressure Positive End Expiratory 5 Pressure Positive End Expiratory 5 Pressure Positive End Expiratory 5 Pressure Positive End Expiratory 5 Pressure Positive End Expiratory 5 Pressure Positive End Expiratory 5 Pressure Positive End Expiratory 5 Pressure Positive End Expiratory 5 Pressure Positive End Expiratory 5 Pressure Positive End Expiratory 5 Pressure Peak Inspiratory Airway 13 Pressure Peak Inspiratory Airway 33 Pressure Peak Inspiratory Airway 32 Pressure Peak Inspiratory Airway 37 Pressure Peak Inspiratory Airway 40 Pressure Peak Inspiratory Airway 38 Pressure Peak Inspiratory Airway 41 Pressure Peak Inspiratory Airway 41 Pressure Peak Inspiratory Airway 37 Pressure Peak Inspiratory Airway 38 Pressure Peak Inspiratory Airway 38 Pressure Results - Laboratory Findings CBC and BMP: 11/30/16 01:23 11/30/16 01:23 ABG ABG pH 7.37 pH Units (7.32-7.45) 11/30/16 05:00 ABG pCO2 49 mmHg (35-45) H 11/30/16 05:00 ABG pO2 61 mmHg (85-104) L 11/30/16 05:00 ABG O2 Saturation 90 % (95-98) L 11/30/16 05:00 PT/INR, D-dimer PT 25.9 Seconds (9.4-12.1) H 11/29/16 01:27 Abnormal lab findings: Abnormal lab results Hgb 12.0 g/dL (12.9-16.9) L 11/30/16 01:23 MCHC 31.5 g/dL (31.6-35.5) L 11/30/16 01:23 RDW 20.1 % (11.5-14.5) H 11/30/16 01:23 Plt Count 122 K/mcL (140-400) L 11/30/16 01:23 Nucleated RBCs/100 WBC 0.5 /100 WBC (0) H 11/20/16 00:57 Platelet Estimate Slight Decrease (Normal) L 11/26/16 05:51 Immature Plt Fraction 13.1 % (1.1-6.1) H 11/30/16 01:23 Polychromasia 1+ (Not Present) A 11/26/16 05:51 Hypochromasia Present (Not Present) A 11/26/16 05:51 Basophilic Stippling 1+ (Not Present) A 11/25/16 07:02 Anisocytosis 1+ (Not Present) A 11/26/16 05:51 Microcytosis Present (Not Present) A 11/26/16 05:51 Macrocytosis Present (Not Present) A 11/26/16 05:51 PT 25.9 Seconds (9.4-12.1) H 11/29/16 01:27 ABG pCO2 49 mmHg (35-45) H 11/30/16 05:00 ABG pO2 61 mmHg (85-104) L 11/30/16 05:00 ABG HCO3 28.3 mEQ/L (21-27) H 11/30/16 05:00 ABG Total CO2 29.8 mEq/L (20-26) H 11/30/16 05:00 ABG O2 Saturation 90 % (95-98) L 11/30/16 05:00 Sodium 131 mEq/L (136-145) L 11/30/16 01:23 Potassium 5.7 mEq/L (3.5-4.5) H 11/30/16 01:23 Chloride 93 mEq/L (98-109) L 11/30/16 01:23 BUN 67 mg/dL (8-26) H D 11/30/16 01:23 Creatinine 8.45 mg/dL (0.72-1.25) H 11/30/16 01:23 Est GFR ( Amer) 8 (> 60) L 11/30/16 01:23 Est GFR (Non-Af Amer) 7 (> 60) L 11/30/16 01:23 Glucose 119 mg/dL (70-99) H 11/30/16 01:23 POC Glucose 123 (58-89) H 11/30/16 07:14 Hemoglobin A1c 7.1 % (-5.6) H 11/22/16 05:52 Alkaline Phosphatase 446 Units/L (38-126) H 11/24/16 04:49 Troponin I 0.13 ng/mL (0-0.03) H* 11/20/16 00:57 B-Natriuretic Peptide 844 pg/mL (0-100) H 11/19/16 03:43 Albumin 2.8 g/dL (3.5-5.0) L 11/24/16 04:49 Globulin 3.7 g/dL (2.4-3.5) H 11/24/16 04:49 Albumin/Globulin Ratio 0.8 (1.1-2.2) L 11/24/16 04:49 - Clinical Findings Intake & Output: Intake & Output 11/29/16 11/29/16 11/30/16 15:59 23:59 07:59 Intake Total 1222 / 1222 608 / 608 511.2 / 511.2 Output Total 0 / 0 0 / 0 0 / 0 Balance 1222 / 1222 608 / 608 511.2 / 511.2 Weight 124 kg - VTE Reasons for not Prescribing Prophylaxis: Not indicated-Anticoagulated or INR therapeutic Consult Discharge Plan - Plan Referrals: Arthur Pozo MD [Primary Care Provider] - 12/01/16 9:45 am (Please follow up as schedule..) <Alexi Gaffney - Last Filed: 11/30/16 14:13> Date of Encounter: 11/30/16 Objective PUL Vital signs: Last Vital Signs Temp 97.7 F 11/30/16 07:30 Pulse 79 11/30/16 06:00 Resp 20 11/30/16 06:30 BP 128/91 11/30/16 06:30 Pulse Ox 95 11/30/16 06:30 Ventilator Settings Ventilator Settings: Ventilator Settings, Last 8 Hours Ventilator Mode CPAP Ventilator Mode CPAP Ventilator Mode A/C Ventilator Mode A/C Ventilator Mode A/C Ventilator Mode A/C Ventilator Mode A/C Ventilator Mode A/C Ventilator Mode A/C Ventilator Mode A/C Ventilator Mode A/C Ventilator Tidal Volume 550 Setting Ventilator Tidal Volume 550 Setting Ventilator Tidal Volume 550 Setting Ventilator Tidal Volume 550 Setting Ventilator Tidal Volume 550 Setting Ventilator Tidal Volume 550 Setting Ventilator Tidal Volume 550 Setting Ventilator Tidal Volume 550 Setting Ventilator Tidal Volume 550 Setting Ventilator Tidal Volume 550 Setting Ventilator Respiratory Rate 14 Setting Ventilator Respiratory Rate 14 Setting Ventilator Respiratory Rate 14 Setting Ventilator Respiratory Rate 14 Setting Ventilator Respiratory Rate 14 Setting Ventilator Respiratory Rate 14 Setting Ventilator Respiratory Rate 14 Setting Ventilator Respiratory Rate 14 Setting Ventilator Respiratory Rate 14 Setting Ventilator Respiratory Rate 14 Setting Actual Respiratory Rate 17 Actual Respiratory Rate 20 Actual Respiratory Rate 14 Actual Respiratory Rate 14 Actual Respiratory Rate 14 Actual Respiratory Rate 14 Actual Respiratory Rate 14 Actual Respiratory Rate 14 Actual Respiratory Rate 14 Actual Respiratory Rate 14 Positive End Expiratory 5 Pressure Positive End Expiratory 5 Pressure Positive End Expiratory 5 Pressure Positive End Expiratory 5 Pressure Positive End Expiratory 5 Pressure Positive End Expiratory 5 Pressure Positive End Expiratory 5 Pressure Positive End Expiratory 5 Pressure Positive End Expiratory 5 Pressure Positive End Expiratory 5 Pressure Positive End Expiratory 5 Pressure Peak Inspiratory Airway 13 Pressure Peak Inspiratory Airway 13 Pressure Peak Inspiratory Airway 33 Pressure Peak Inspiratory Airway 32 Pressure Peak Inspiratory Airway 37 Pressure Peak Inspiratory Airway 40 Pressure Peak Inspiratory Airway 38 Pressure Peak Inspiratory Airway 41 Pressure Peak Inspiratory Airway 41 Pressure Peak Inspiratory Airway 37 Pressure Results - Laboratory Findings CBC and BMP: 11/30/16 01:23 11/30/16 01:23 ABG ABG pH 7.37 pH Units (7.32-7.45) 11/30/16 05:00 ABG pCO2 49 mmHg (35-45) H 11/30/16 05:00 ABG pO2 61 mmHg (85-104) L 11/30/16 05:00 ABG O2 Saturation 90 % (95-98) L 11/30/16 05:00 PT/INR, D-dimer PT 25.9 Seconds (9.4-12.1) H 11/29/16 01:27 Abnormal lab findings: Abnormal lab results Hgb 12.0 g/dL (12.9-16.9) L 11/30/16 01:23 MCHC 31.5 g/dL (31.6-35.5) L 11/30/16 01:23 RDW 20.1 % (11.5-14.5) H 11/30/16 01:23 Plt Count 122 K/mcL (140-400) L 11/30/16 01:23 Nucleated RBCs/100 WBC 0.5 /100 WBC (0) H 11/20/16 00:57 Platelet Estimate Slight Decrease (Normal) L 11/26/16 05:51 Immature Plt Fraction 13.1 % (1.1-6.1) H 11/30/16 01:23 Polychromasia 1+ (Not Present) A 11/26/16 05:51 Hypochromasia Present (Not Present) A 11/26/16 05:51 Basophilic Stippling 1+ (Not Present) A 11/25/16 07:02 Anisocytosis 1+ (Not Present) A 11/26/16 05:51 Microcytosis Present (Not Present) A 11/26/16 05:51 Macrocytosis Present (Not Present) A 11/26/16 05:51 PT 25.9 Seconds (9.4-12.1) H 11/29/16 01:27 ABG pCO2 49 mmHg (35-45) H 11/30/16 05:00 ABG pO2 61 mmHg (85-104) L 11/30/16 05:00 ABG HCO3 28.3 mEQ/L (21-27) H 11/30/16 05:00 ABG Total CO2 29.8 mEq/L (20-26) H 11/30/16 05:00 ABG O2 Saturation 90 % (95-98) L 11/30/16 05:00 Sodium 131 mEq/L (136-145) L 11/30/16 01:23 Potassium 5.7 mEq/L (3.5-4.5) H 11/30/16 01:23 Chloride 93 mEq/L (98-109) L 11/30/16 01:23 BUN 67 mg/dL (8-26) H D 11/30/16 01:23 Creatinine 8.45 mg/dL (0.72-1.25) H 11/30/16 01:23 Est GFR ( Amer) 8 (> 60) L 11/30/16 01:23 Est GFR (Non-Af Amer) 7 (> 60) L 11/30/16 01:23 Glucose 119 mg/dL (70-99) H 11/30/16 01:23 POC Glucose 123 (58-89) H 11/30/16 07:14 Hemoglobin A1c 7.1 % (-5.6) H 11/22/16 05:52 Alkaline Phosphatase 446 Units/L (38-126) H 11/24/16 04:49 Troponin I 0.13 ng/mL (0-0.03) H* 11/20/16 00:57 B-Natriuretic Peptide 844 pg/mL (0-100) H 11/19/16 03:43 Albumin 2.8 g/dL (3.5-5.0) L 11/24/16 04:49 Globulin 3.7 g/dL (2.4-3.5) H 11/24/16 04:49 Albumin/Globulin Ratio 0.8 (1.1-2.2) L 11/24/16 04:49 - Clinical Findings Intake & Output: Intake & Output 11/29/16 11/30/16 11/30/16 23:59 07:59 15:59 Intake Total 608 / 608 511.2 / 511.2 0 / 0 Output Total 0 / 0 0 / 0 Balance 608 / 608 511.2 / 511.2 0 / 0 Weight 124 kg - Attending Attestation I examined this patient and my medical decision-making was reviewed with the Resident Physician. I agree with the documented findings, disposition and treatment plan as described except to the extent set forth below. I spent 35min of Critical Care time with this patient. It involved decision making of high complexity to assess, manipulate, and support vital organ system failure and/or to prevent further life threatening deterioration of the patient' s condition. The time involved in the performance of separately reportable procedures was not counted toward critical care time. Patient seen and examined at bedside Labs, radiology, chart personally reviewed. All lines examined without evidence of infection. Management was reviewed during multidisciplinary critical care rounds. Neuropsych: Intubated and sedated. Wean sedation which currently consists of Precedex and infusion of fentanyl to goal Chaney of 3. No clear focal deficits on exam Pulm: Patient had favorable CPAP CPAP trial and weaning parameters were favorable and patient was appropriately extubated however postextubation over the next 2-3 hours he became increasingly somnolent and hypoxic and the decision to reintubate the patient was made. Patient had difficulty being oxygenated appropriately and failed airway algorithm was employed but eventually patient was able to be oxygenated appropriately with bag mask ventilation and oral airway. Anesthesia was consulted for assistance and a 7.5- Khmer tube was placed under video laryngoscopy. Was confirmed by end-tidal CO2 and by auscultation of bilateral breath sounds.. Is unclear exactly why the patient failed extubation a day possibly worsening pulmonary edema chest x-ray showed worsening vascular congestion and it was noted the patient likely did aspirate around the time of intubation the clinical significance of this remains to be seen. We are ventilating him with 68 mL per KG of ideal body weight and repeat ABG pending Cards: Hypotensive now which is manifestation of possible new infection versus ongoing hypotension related to ESRD have consistently been a bug 60 but with medications given for intubation vasopressor had to be started we will wean for goal map greater than 60; EKG and troponin will be assessed FEN-GI: Nothing by mouth for now GI prophylaxis given Renal: ESRD plan for dialysis when able to tolerate from blood pressure standpoint replace electrolytes per protocol ID: Otto cultures obtained we will start empiric antimicrobials if fever spike elevated leukocytosis or clinical deterioration Heme/Onc: Patient has been receiving warfarin for primary stroke prophylaxis from underlying atrial fibrillation which we will continue and continue to follow his INR Endo: Glucose monitored Integ/MSK: Skin care per routine ICU protocol to prevent ulcers CODE: Full
[2016-11-30] MEDS ORDERED: 0.9 % Sodium Chloride 250 ML IVC PRN (09:11)
[2016-11-30] MEDS ORDERED: 0.9 % Sodium Chloride 1,000 ML PRIME SCH (09:15)
[2016-11-30] MEDS ORDERED: 0.9 % Sodium Chloride 1,000 ML ONE (09:24)
--- NOTE | 2016-11-30 09:32 | Nephrology Progress Note ---
Date of Encounter: 11/30/16 Time of Encounter: 09:10 - Assessment and Plan (1) End stage renal disease on dialysis Current Visit: Yes Status: Chronic Hypercapneic respratory failure. HD on today, keeping MWF schedule. Orders given. Subjective Principal diagnosis: aflutter with RVR Interval history: Extubated, BiPap. Eyes focusing, nodding head to questions. Objective - Vital Signs Vital signs: Vital Signs Temp Pulse Resp BP Pulse Ox 11/30/16 07:30 97.7 F 11/30/16 06:30 20 128/91 95 11/30/16 06:00 79 14 95/87 97 11/30/16 05:00 81 14 98/81 93 11/30/16 04:30 73 14 88/62 93 11/30/16 04:27 14 79/46 93 11/30/16 03:52 75 14 63/44 94 11/30/16 03:44 97.6 F 11/30/16 02:50 14 78/57 93 11/30/16 02:00 85 14 87/75 93 11/30/16 01:00 81 14 100/72 94 11/30/16 00:25 14 70/56 94 11/30/16 00:00 71 14 70/56 94 11/29/16 23:57 97.5 F L 11/29/16 23:03 80 14 84/57 94 11/29/16 22:00 84 14 105/86 97 11/29/16 21:56 14 105/86 94 11/29/16 21:00 94 14 101/72 95 11/29/16 20:30 84 14 85/59 95 11/29/16 20:00 97.2 F L 11/29/16 19:49 14 105/86 97 11/29/16 19:00 69 14 93/72 95 11/29/16 18:00 71 14 95/65 96 11/29/16 17:00 78 14 96/66 95 11/29/16 16:23 14 96 11/29/16 16:00 97.5 F L 68 15 90/70 94 11/29/16 15:00 87 15 95/71 95 11/29/16 14:05 72 14 108/68 95 11/29/16 13:00 80 15 106/65 95 11/29/16 12:00 97 F L 68 14 89/70 96 11/29/16 11:11 14 95 11/29/16 11:00 81 16 89/55 96 11/29/16 10:00 86 14 96/69 96 Intake and Output 11/29/16 11/30/16 11/30/16 23:59 07:59 15:59 Intake Total 608 / 608 511.2 / 511.2 0 / 0 Output Total 0 / 0 0 / 0 Balance 608 / 608 511.2 / 511.2 0 / 0 Intake: IV Fluids 200 / 200 511.2 / 511.2 FentaNYL (PF) 3,000 MCG 326.2 / 326.2 In 0.9 % Sodium Chloride 240 ML @ 200 MCG/HR 20 mls/hr IVC CONT [facility] Rx#: [id number] Diprivan 1,000 mg In 100 200 / 200 185.0 / 185.0 ml @ 2 MCG/KG/MIN 1.542 mls/hr IVC .Q24H [facility] Rx#: [id number] Oral 0 / 0 Tube Feeding 308 / 308 0 / 0 0 / 0 Free Water 100 / 100 Output: Urine 0 / 0 0 / 0 Other: Weight 124 kg Blood Glucose* 157 123 Patient Weight 11/30/16 23:59 Weight 124 kg - General Appearance General appearance: Present: well-developed, well-nourished, appears started age , obese EENT: Present: mucous membranes moist Neck: Present: no JVD Respiratory: Present: course breath sounds Cardiology: Present: edema, irregular rhythm Gastrointestinal: Present: hypoactive bowel sounds, distended Psychiatric: Present: mood/affect appropriate, cooperative - Lab 11/30/16 01:23 11/30/16 01:23 Most recent lab results ABG pH 7.37 pH Units (7.32-7.45) 11/30/16 05:00 ABG pCO2 49 mmHg (35-45) H 11/30/16 05:00 ABG pO2 61 mmHg (85-104) L 11/30/16 05:00 ABG HCO3 28.3 mEQ/L (21-27) H 11/30/16 05:00 ABG O2 Saturation 90 % (95-98) L 11/30/16 05:00 Calcium 9.2 mg/dL (8.6-10.8) 11/30/16 01:23 Magnesium 2.0 mg/dL (1.6-2.6) 11/26/16 05:51 - VTE Reasons for not Prescribing Prophylaxis: Not indicated-Anticoagulated or INR therapeutic Consult Discharge Plan - Plan Referrals: Arthur Pozo MD [Primary Care Provider] - 12/01/16 9:45 am (Please follow up as schedule..)
[2016-11-30] MEDS: Chlorhexidine Rinse 15 ML MOUTHWASH MM SCH ×2 (10:56→21:19)
[2016-11-30] MEDS: Pantoprazole 40 MG VIAL IVP SCH (11:09)
[2016-11-30] MEDS: Nicotine 14 MG PATCH.TD24 TD SCH (11:09)
[2016-11-30] MEDS: Budesonide/Formoterol 160/4.5 MDI IH SCH ×2 (11:53→21:35)
[2016-11-30] MEDS: Norepinephrine 4 MG in D5% in Water 250 ML IVC SCH (12:15)
[2016-11-30 12:17] LABS: INR 1.9; Prothrombin Time 20.9 Seconds (9.4-12.1)
--- NOTE | 2016-11-30 13:24 | Procedure Note ---
Date of procedure: 11/30/16 Pre-op diagnosis: Hypotension Post-op diagnosis: same Procedure: Femoral venous catheter Consent was unable to be obtained from the patient. It was an emergent procedure. The left femoral vein were surveyed using ultrasound, and it was deemed to be a suitable target. Patient was clean and draped in the usual sterile fashion. On the ultrasound guidance, the introducer needle was passed into the skin. Initially, bright red and pulsatile blood flow was returned. The introducer needle was withdraw, and pressure was applied to the area for 5 minutes. After applying pressure for 5 minutes, the introducer was passed through the left femoral vein. Dark red, non-pulsatile blood flow was returned. The guidewire was passed through the needle and into the femoral vein. Then, the guidewire was passed through the needle without any resistance. Using the ultrasound, the guidewire was visualized within the left femoral vein. A siri was made in the skin and soft tissues were dilated. The dilator was then removed and a 20 cm triple lumen catheter was passed over the guide wire into the vein without any resistance. The guide wire was removed intact. All 3 ports were tested and shown to draw blood and flush easily. The catheter was sutured in place at 2 points. Biopatch and sterile dressing were applied. The patient tolerated procedure well, there were no immediate complications. The procedure was supervised by senior resident, Dr. Hiram Bonilla, and he was present the entire time. Anesthesia: ADAM Surgeon: Trevor Howard Push Connector Assembler: Hiram Bonilla Condition: critical Disposition: ICU
[2016-11-30 14:38] LABS: ABG Base Excess -1.3 mEq/L (-2.0 to 3.0); ABG HCO3 28.2 mEQ/L (21-27); ABG Oxygen Saturation 99 % (95-98); ABG PCO2 69 mmHg (35-45); ABG PH 7.22 pH Units (7.32-7.45); ABG PO2 141 mmHg (85-104); ABG TCO2 30.3 mEq/L (20-26); Blood Gas FiO2 100 %
[2016-11-30] MEDS: Calcium Acetate 667 MG CAPSULE PO SCH ×4 (15:32→21:19)
[2016-11-30] MEDS: *HR* Amiodarone 200 MG TABLET PO SCH ×2 (15:33→16:29)
[2016-11-30] MEDS: Docusate Oral Soln 100 MG/10 ML UDC GTUBE SCH ×3 (15:33→21:18)
[2016-11-30 16:42] LABS: ABG Base Excess 0.5 mEq/L (-2.0 to 3.0); ABG HCO3 25.4 mEQ/L (21-27); ABG Oxygen Saturation 96 % (95-98); ABG PCO2 41 mmHg (35-45); ABG PO2 83 mmHg (85-104); ABG TCO2 26.7 mEq/L (20-26)
[2016-11-30 16:43] LABS: Blood Gas FiO2 60 %
[2016-11-30] MEDS ORDERED: *HR* Warfarin 5 MG TABLET PO ONE (18:00)
--- NOTE | 2016-11-30 19:22 | Anesthesia Procedures ---
Date of Encounter: 11/30/16 Time of Encounter: 12:20 Procedures: Anesthesia - Intubation Time out performed: No Sedative: Etomidate (30mg IV administered prior to my arrival during initial intubation attempt) Laryngoscope: video scope (Glidescope) Assist device used: video scope ET Tube Size: 7.5 Tube secured depth (cm): 23 Tube secured location: lips Tube Placement Confirmation: visualized tube passing through cords, equal breath sounds bilaterally, confirmation by colorimetric device Patient tolerated procedure: well Intubation complications: none Anes Supervising Prov Stmt: TRE re: Anesthesia to ICU overhead page. Upon arrival Pt being Bag/Masked by Dr. Arenas and brief report given to abstract writer. Was informed that pt was hypotensive with Low O2 Sats. No additional meds given prior to intubation attempt. Bag masked to mid 90s%. Glidescope utilized to visualize 7.5 ett thru VC. + etCO2 per colorimetric device. +BBS per Dr. Arenas & Courtney. ETT secured per RT. Pt noted to have active emesis and quickly suctioned. OG tube placed. ETT/BS confirmed. Pt Hypotensive but otherwise stable at abstract writer departure at 1232. - MD Douglas
[2016-12-01] MEDS: Dexmedetomidine HCl 400 MCG/100 ML MLS IVC SCH ×5 (02:19→23:23)
[2016-12-01] MEDS: Ipratropium Neb 0.5 MG NEBULIZER IH SCH ×4 (03:28→22:14)
[2016-12-01] MEDS: Levalbuterol Neb 0.63 MG/3 ML IH SCH ×4 (03:28→22:14)
[2016-12-01 04:36] LABS: ABG Base Excess 2.8 mEq/L (-2.0 to 3.0); ABG HCO3 26.1 mEQ/L (21-27); ABG Oxygen Saturation 98 % (95-98); ABG PCO2 35 mmHg (35-45); ABG PH 7.48 pH Units (7.32-7.45); ABG PO2 94 mmHg (85-104); ABG TCO2 27.2 mEq/L (20-26); Blood Gas FiO2 60 %
[2016-12-01 04:44] LABS: INR 1.8; Prothrombin Time 20.2 Seconds (9.4-12.1)
[2016-12-01] MEDS: Insulin LISPRO 300 UNITS/3 ML VIAL SQ SCH ×5 (04:52→19:42)
[2016-12-01] MEDS: FentaNYL (PF) 3,000 MCG in 0.9 % Sodium Chloride 240 ML IVC SCH (04:52)
--- NOTE | 2016-12-01 07:01 | Pulmonology Progress Note ---
<BayleeHiram charles Louis - Last Filed: 12/01/16 08:07> Date of Encounter: 12/01/16 Time of Encounter: 07:01 Assessment and Plan (1) Acute and chronic respiratory failure with hypercapnia Current Visit: Yes Status: Acute Neuropsych: Patient is sedated and comfortable at this time but will awake to verbal stimuli and follow commands. Continue with minimal sedation. Pulm: Acute on chronic hypercapnic respiratory failure requiring ventilatory support. Patient was liberated from the ventilator yesterday unfortunately he developed hypoxia and altered mental status despite noninvasive positive pressure ventilation. Patient required reintubation and remains on mechanical ventilation. ABGs showed a mild alkalosis, respiratory rate on the vent will be decreased. Cards: History of underlying atrial fibrillation. Currently rate controlled. Currently on Coumadin, pharmacy to dose. FEN-GI: Tube feeds were held due to planned extubation yesterday unfortunately he remains on the ventilator. We will resume nutrition. Renal: End-stage renal disease with regular scheduled dialysis Wednesday, Wednesday , Wednesday. Patient received dialysis yesterday with 5.6 L of fluid removal. Further plans for dialysis per nephrology. ID: No evidence of infectious process. Given the patient's decline in respiratory status and hypotension requiring pressors repeat cultures were obtained and are pending. If there is any evidence of infection of the low threshold to initiate antibiotic therapy. Continue standard precautions. Heme/Onc: Hemoglobin is stable. No evidence of active bleeding. Patient is on Coumadin for atrial fibrillation. INR is 1.8 today. Continue Coumadin dosing per pharmacy. Endo: Blood sugars under good control, continue sliding scale insulin. Morning cortisol was 5.9 which is acceptable. No indication for steroids at this time. Integ/MSK: Continue skin care per ICU protocol. CODE: Full Code (2) End stage renal disease on dialysis Current Visit: Yes Status: Chronic (3) Hx of noncompliance with medical treatment, presenting hazards to health Current Visit: No Status: Acute (4) Atrial fibrillation Current Visit: Yes Status: Chronic Qualifiers: Atrial fibrillation type: chronic Qualified Code(s): I48.2 - Chronic atrial fibrillation (5) Severe sleep apnea Current Visit: No Status: Acute (6) Diabetes Current Visit: No Status: Acute Qualifiers: Diabetes mellitus type: type 2 Diabetes mellitus complication status: with unspecified complications Diabetes mellitus custodial insulin use: with custodial use Qualified Code(s): E11.8 - Type 2 diabetes mellitus with unspecified complications; Z79.4 - USP (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 Patient remains intubated and sedated. He does not appear in any acute distress. No acute events overnight. Objective PUL Vital signs: Last Vital Signs Temp 98.7 F 12/01/16 04:47 Pulse 93 12/01/16 06:00 Resp 24 12/01/16 06:00 BP 122/84 12/01/16 06:00 Pulse Ox 100 12/01/16 06:00 General appearance: no acute distress ENT: oropharynx moist Effort: normal Auscultation: bilateral: diminished breath sounds Cardiovascular: irregular rhythm Gastrointestinal: normoactive bowel sounds, soft, non-tender, non-distended Extremities: no cyanosis, no clubbing, edema (1+) unable to assess due to mental status Ventilator Settings Ventilator Settings: Ventilator Settings, Last 8 Hours Ventilator Mode A/C Ventilator Mode A/C Ventilator Mode A/C Ventilator Mode A/C Ventilator Mode A/C Ventilator Mode A/C Ventilator Mode A/C Ventilator Tidal Volume 500 Setting Ventilator Tidal Volume 500 Setting Ventilator Tidal Volume 500 Setting Ventilator Tidal Volume 500 Setting Ventilator Tidal Volume 500 Setting Ventilator Tidal Volume 500 Setting Ventilator Tidal Volume 500 Setting Ventilator Respiratory Rate 24 Setting Ventilator Respiratory Rate 24 Setting Ventilator Respiratory Rate 24 Setting Ventilator Respiratory Rate 24 Setting Ventilator Respiratory Rate 24 Setting Ventilator Respiratory Rate 24 Setting Ventilator Respiratory Rate 24 Setting Actual Respiratory Rate 24 Actual Respiratory Rate 24 Actual Respiratory Rate 24 Actual Respiratory Rate 24 Actual Respiratory Rate 24 Actual Respiratory Rate 24 Positive End Expiratory 8 Pressure Positive End Expiratory 8 Pressure Positive End Expiratory 8 Pressure Positive End Expiratory 8 Pressure Positive End Expiratory 8 Pressure Positive End Expiratory 8 Pressure Positive End Expiratory 8 Pressure Peak Inspiratory Airway 34 Pressure Peak Inspiratory Airway 35 Pressure Peak Inspiratory Airway 35 Pressure Peak Inspiratory Airway 33 Pressure Peak Inspiratory Airway 34 Pressure Peak Inspiratory Airway 34 Pressure Results - Laboratory Findings CBC and BMP: 11/30/16 01:23 11/30/16 01:23 ABG ABG pH 7.48 pH Units (7.32-7.45) H 12/01/16 04:20 ABG pCO2 35 mmHg (35-45) 12/01/16 04:20 ABG pO2 94 mmHg (85-104) 12/01/16 04:20 ABG O2 Saturation 98 % (95-98) 12/01/16 04:20 PT/INR, D-dimer PT 20.2 Seconds (9.4-12.1) H 12/01/16 04:14 Abnormal lab findings: Abnormal lab results Hgb 12.0 g/dL (12.9-16.9) L 11/30/16 01:23 MCHC 31.5 g/dL (31.6-35.5) L 11/30/16 01:23 RDW 20.1 % (11.5-14.5) H 11/30/16 01:23 Plt Count 122 K/mcL (140-400) L 11/30/16 01:23 Nucleated RBCs/100 WBC 0.5 /100 WBC (0) H 11/20/16 00:57 Platelet Estimate Slight Decrease (Normal) L 11/26/16 05:51 Immature Plt Fraction 13.1 % (1.1-6.1) H 11/30/16 01:23 Polychromasia 1+ (Not Present) A 11/26/16 05:51 Hypochromasia Present (Not Present) A 11/26/16 05:51 Basophilic Stippling 1+ (Not Present) A 11/25/16 07:02 Anisocytosis 1+ (Not Present) A 11/26/16 05:51 Microcytosis Present (Not Present) A 11/26/16 05:51 Macrocytosis Present (Not Present) A 11/26/16 05:51 PT 20.2 Seconds (9.4-12.1) H 12/01/16 04:14 ABG pH 7.48 pH Units (7.32-7.45) H 12/01/16 04:20 ABG Total CO2 27.2 mEq/L (20-26) H 12/01/16 04:20 Sodium 131 mEq/L (136-145) L 11/30/16 01:23 Potassium 5.7 mEq/L (3.5-4.5) H 11/30/16 01:23 Chloride 93 mEq/L (98-109) L 11/30/16 01:23 BUN 67 mg/dL (8-26) H D 11/30/16 01:23 Creatinine 8.45 mg/dL (0.72-1.25) H 11/30/16 01:23 Est GFR ( Amer) 8 (> 60) L 11/30/16 01:23 Est GFR (Non-Af Amer) 7 (> 60) L 11/30/16 01:23 Glucose 119 mg/dL (70-99) H 11/30/16 01:23 POC Glucose 115 (58-89) H 12/01/16 04:27 Hemoglobin A1c 7.1 % (-5.6) H 11/22/16 05:52 Alkaline Phosphatase 446 Units/L (38-126) H 11/24/16 04:49 Troponin I 0.04 ng/mL (0-0.03) H* 11/30/16 15:09 B-Natriuretic Peptide 844 pg/mL (0-100) H 11/19/16 03:43 Albumin 2.8 g/dL (3.5-5.0) L 11/24/16 04:49 Globulin 3.7 g/dL (2.4-3.5) H 11/24/16 04:49 Albumin/Globulin Ratio 0.8 (1.1-2.2) L 11/24/16 04:49 - Clinical Findings Intake & Output: Intake & Output 11/30/16 11/30/16 12/01/16 15:59 23:59 07:59 Intake Total 500 / 500 1040 / 1040 200 / 200 Output Total 80 / 80 5600 / 5600 Balance 420 / 420 -4560 / -4560 200 / 200 Weight 114.5 kg - VTE Reasons for not Prescribing Prophylaxis: Not indicated-Anticoagulated or INR therapeutic Consult Discharge Plan - Plan Referrals: Arthur Pozo MD [Primary Care Provider] - 12/01/16 9:45 am (Please follow up as schedule..) <Alexi Gaffney W - Last Filed: 12/01/16 12:29> Date of Encounter: 12/01/16 Objective PUL Vital signs: Last Vital Signs Temp 98.2 F 12/01/16 11:00 Pulse 101 12/01/16 09:00 Resp 20 12/01/16 11:35 BP 90/74 12/01/16 12:00 Pulse Ox 99 12/01/16 11:35 Ventilator Settings Ventilator Settings: Ventilator Settings, Last 8 Hours Ventilator Mode A/C Ventilator Mode A/C Ventilator Mode A/C Ventilator Mode A/C Ventilator Mode A/C Ventilator Mode A/C Ventilator Mode A/C Ventilator Tidal Volume 500 Setting Ventilator Tidal Volume 500 Setting Ventilator Tidal Volume 500 Setting Ventilator Tidal Volume 500 Setting Ventilator Tidal Volume 500 Setting Ventilator Tidal Volume 500 Setting Ventilator Tidal Volume 500 Setting Ventilator Respiratory Rate 20 Setting Ventilator Respiratory Rate 20 Setting Ventilator Respiratory Rate 20 Setting Ventilator Respiratory Rate 20 Setting Ventilator Respiratory Rate 24 Setting Ventilator Respiratory Rate 24 Setting Ventilator Respiratory Rate 24 Setting Actual Respiratory Rate 20 Actual Respiratory Rate 24 Actual Respiratory Rate 24 Actual Respiratory Rate 24 Positive End Expiratory 8.1 Pressure Positive End Expiratory 8 Pressure Positive End Expiratory 8 Pressure Positive End Expiratory 8 Pressure Positive End Expiratory 8 Pressure Positive End Expiratory 8 Pressure Positive End Expiratory 8 Pressure Peak Inspiratory Airway 34 Pressure Peak Inspiratory Airway 34 Pressure Peak Inspiratory Airway 34 Pressure Peak Inspiratory Airway 34 Pressure Results - Laboratory Findings CBC and BMP: 12/01/16 08:35 12/01/16 08:35 ABG ABG pH 7.48 pH Units (7.32-7.45) H 12/01/16 04:20 ABG pCO2 35 mmHg (35-45) 12/01/16 04:20 ABG pO2 94 mmHg (85-104) 12/01/16 04:20 ABG O2 Saturation 98 % (95-98) 12/01/16 04:20 PT/INR, D-dimer PT 20.2 Seconds (9.4-12.1) H 12/01/16 04:14 Abnormal lab findings: Abnormal lab results Hgb 12.1 g/dL (12.9-16.9) L 12/01/16 08:35 MCH 27.8 pg (28.0-33.3) L 12/01/16 08:35 MCHC 31.1 g/dL (31.6-35.5) L 12/01/16 08:35 RDW 20.0 % (11.5-14.5) H 12/01/16 08:35 MPV 12.8 fL (9.4-12.4) H 12/01/16 08:35 Nucleated RBCs/100 WBC 0.5 /100 WBC (0) H 11/20/16 00:57 Platelet Estimate Slight Decrease (Normal) L 11/26/16 05:51 Immature Plt Fraction 9.2 % (1.1-6.1) H 12/01/16 08:35 Polychromasia 1+ (Not Present) A 11/26/16 05:51 Hypochromasia Present (Not Present) A 11/26/16 05:51 Basophilic Stippling 1+ (Not Present) A 11/25/16 07:02 Anisocytosis 1+ (Not Present) A 11/26/16 05:51 Microcytosis Present (Not Present) A 11/26/16 05:51 Macrocytosis Present (Not Present) A 11/26/16 05:51 PT 20.2 Seconds (9.4-12.1) H 12/01/16 04:14 ABG pH 7.48 pH Units (7.32-7.45) H 12/01/16 04:20 ABG Total CO2 27.2 mEq/L (20-26) H 12/01/16 04:20 Chloride 94 mEq/L (98-109) L 12/01/16 08:35 BUN 44 mg/dL (8-26) H D 12/01/16 08:35 Creatinine 6.58 mg/dL (0.72-1.25) H 12/01/16 08:35 Est GFR ( Amer) 11 (> 60) L 12/01/16 08:35 Est GFR (Non-Af Amer) 9 (> 60) L 12/01/16 08:35 Glucose 112 mg/dL (70-99) H 12/01/16 08:35 POC Glucose 108 (58-89) H 12/01/16 11:50 Hemoglobin A1c 7.1 % (-5.6) H 11/22/16 05:52 AST 68 Units/L (5-34) H 12/01/16 08:35 Alkaline Phosphatase 498 Units/L (38-126) H 12/01/16 08:35 Troponin I 0.04 ng/mL (0-0.03) H* 11/30/16 15:09 B-Natriuretic Peptide 844 pg/mL (0-100) H 11/19/16 03:43 Albumin 2.4 g/dL (3.5-5.0) L 12/01/16 08:35 Globulin 4.3 g/dL (2.4-3.5) H 12/01/16 08:35 Albumin/Globulin Ratio 0.6 (1.1-2.2) L 12/01/16 08:35 - Microbiology Findings Microbiology Findings: Microbiology, Last 48 Hours 11/30/16 15:15 Urine Culture - Preliminary Urine,Catheterized Gram Positive Cocci - Clinical Findings Intake & Output: Intake & Output 11/30/16 12/01/16 12/01/16 23:59 07:59 15:59 Intake Total 1040 / 1040 200 / 200 610 / 610 Output Total 5600 / 5600 Balance -4560 / -4560 200 / 200 610 / 610 Weight 114.5 kg - Attending Attestation I examined this patient and my medical decision-making was reviewed with the Resident Physician. I agree with the documented findings, disposition and treatment plan as described except to the extent set forth below. Patient seen and examined at bedside Labs, radiology, chart personally reviewed. All lines examined without evidence of infection. Management was reviewed during multidisciplinary critical care rounds. Neuropsych: He is sedated to [place] goal 2-3 on Precedex and fentanyl no focal deficit on exam Pulm: Acceptable oxygenation and ventilation today then settings are fairly minimal and been reduced dramatically from yesterday; patient failed liberation ventilator yesterday likely secondary to pulmonary edema which we are trying to volume removal with dialysis Cards: Mild troponin elevation without evidence of STEMI on ECG feel that this is related to underlying demand ischemia as well as underlying ESRD he has a history of systolic heart failure and was in shock yesterday however this resolved and now has been weaned off vasopressor. We have added Midodrein to his regimen for hypotension related to ESRD; cont amiodarone for Afib (which is rate controlled) FEN-GI: Nothing by mouth for now he has a mild ileus we have escalated his bowel regimen Renal: ESRD status post dialysis yesterday [place] ultrafiltration today and replace electrolytes per protocol ID: He was cultured yesterday after reintubation white count remains normal no fever continue to monitor Heme/Onc: He is on warfarin for stroke prevention which we will continue H&H otherwise stable platelets are stable Endo: Glucose monitored we are investigating his borderline cortisol level with a stimulation test to see if adrenal suppression can be a factor related to his ongoing hypotension Integ/MSK: Skin care per routine ICU protocol to prevent ulcers CODE: Full code I updated his mother at bedside
[2016-12-01] MEDS ORDERED: *HR* Etomidate 40 MG/20 ML VIAL IVP ONE (07:43)
[2016-12-01] MEDS ORDERED: *HR* Midazolam HCl 5 MG/5 ML VIAL IVP ONE (07:43)
[2016-12-01] MEDS: Calcium Acetate 667 MG CAPSULE PO SCH ×3 (07:57→16:14)
[2016-12-01] MEDS: Chlorhexidine Rinse 15 ML MOUTHWASH MM SCH ×2 (08:07→20:04)
[2016-12-01] MEDS: Pantoprazole 40 MG VIAL IVP SCH (08:07)
[2016-12-01] MEDS: Docusate Oral Soln 100 MG/10 ML UDC GTUBE SCH ×2 (08:07→20:04)
[2016-12-01] MEDS: Nicotine 14 MG PATCH.TD24 TD SCH (08:08)
[2016-12-01] MEDS ORDERED: 0.9 % Sodium Chloride 250 ML IVC PRN (08:09)
--- NOTE | 2016-12-01 08:09 | Nephrology Progress Note ---
Date of Encounter: 12/01/16 Time of Encounter: 08:07 - Assessment and Plan (1) End stage renal disease on dialysis Current Visit: Yes Status: Chronic Patient had to be reintubated yesterday because of respiratory failure. He will undergo additional ultrafiltration today for volume removal and hopefully assist with his respiratory status. (2) Nonischemic cardiomyopathy Current Visit: No Status: Chronic (3) Atrial fibrillation Current Visit: No Status: Acute Qualifiers: Qualified Code(s): I48.0 - Paroxysmal atrial fibrillation Subjective Principal diagnosis: aflutter with RVR Interval history: Patient had recurrent respiratory failure yesterday and had to be reintubated. Currently he is sedated on the ventilator. He is hemodynamically stable. He had dialysis yesterday. We will provide additional ultrafiltration today to try and assist with his respiratory status. Objective - Vital Signs Vital signs: Vital Signs Temp Pulse Resp BP Pulse Ox 12/01/16 07:30 98.9 F 12/01/16 06:00 93 24 122/84 100 12/01/16 05:49 24 124/81 100 12/01/16 05:00 98 24 123/85 99 12/01/16 04:47 98.7 F 12/01/16 04:00 87 24 126/91 99 12/01/16 03:28 24 110/84 100 12/01/16 03:00 98 24 115/85 100 12/01/16 02:00 91 24 104/74 100 12/01/16 01:26 24 92/66 98 12/01/16 01:00 90 24 101/68 100 12/01/16 00:00 98.6 F 108 24 100/76 100 11/30/16 23:43 24 121/81 100 11/30/16 23:00 103 24 95/71 99 11/30/16 22:00 93 24 117/83 96 11/30/16 21:35 24 109/80 99 11/30/16 21:30 97.7 F 18 112/81 11/30/16 21:15 101/67 11/30/16 21:00 98 24 103/78 99 11/30/16 20:45 96/67 11/30/16 20:30 99/60 11/30/16 20:15 95/61 11/30/16 20:08 24 98/71 99 11/30/16 20:00 97.9 F 104 24 98/71 99 11/30/16 19:45 90/69 11/30/16 19:30 92/71 11/30/16 19:15 106/74 11/30/16 19:00 100 24 92/71 98 11/30/16 18:45 109/80 11/30/16 18:30 115/75 11/30/16 18:15 122/79 11/30/16 18:00 103 24 122/82 98 11/30/16 17:45 121/80 11/30/16 17:30 110/84 11/30/16 17:26 86 11/30/16 17:15 131/89 11/30/16 17:00 86 24 133/96 99 11/30/16 16:45 97.6 F 16 131/103 11/30/16 16:30 92 26 124/88 100 11/30/16 15:59 26 110/72 99 11/30/16 15:30 85 26 110/72 99 11/30/16 15:23 97.6 F 11/30/16 14:00 105 18 113/83 100 11/30/16 13:10 20 100 11/30/16 13:00 100 18 100/65 100 11/30/16 12:00 97.7 F 11/30/16 11:37 22 85 11/30/16 11:00 86 16 74/53 99 11/30/16 10:46 19 94 11/30/16 10:00 112 20 79/56 99 11/30/16 09:00 98 20 68/50 98 11/30/16 08:15 19 79/56 94 11/30/16 08:13 94 Intake and Output 11/30/16 12/01/16 12/01/16 23:59 07:59 15:59 Intake Total 1040 / 1040 200 / 200 Output Total 5600 / 5600 Balance -4560 / -4560 200 / 200 Intake: IV Fluids 440 / 440 200 / 200 PRECEDEX 400 mcg In 100 200 / 200 200 / 200 ml @ 0.2 MCG/KG/HR 6.425 mls/hr IVC .[id number] [facility] Rx#:[id number] Levophed 4 MG In Dextrose 240 / 240 5% 250 ML @ 5 MCG/MIN 18 .75 mls/hr IVC CONT [facility] Rx#:[id number] Oral 0 / 0 Intake, Rinseback and 600 / 600 Flushes Output: Urine 0 / 0 Total Dialysis (HD) 5600 / 5600 Output Other: Weight 114.5 kg Blood Glucose* 108 Hemodialysis Net Fluid 5000 Removed (mL) Patient Weight 12/01/16 23:59 Weight 114.5 kg - General Appearance Exam: Patient sedated on the ventilator. Blood pressure 122/84. He is on 60% FiO2. Lungs diminished breath sounds. Heart irregular rate and rhythm. Abdomen is obese. There is some mild lower extremity swelling with evidence of chronic venous stasis changes. There is a heel ulcer on the left. There is a functioning AV fistula in the left upper extremity. - Lab 11/30/16 01:23 11/30/16 01:23 Most recent lab results ABG pH 7.48 pH Units (7.32-7.45) H 12/01/16 04:20 ABG pCO2 35 mmHg (35-45) 12/01/16 04:20 ABG pO2 94 mmHg (85-104) 12/01/16 04:20 ABG HCO3 26.1 mEQ/L (21-27) 12/01/16 04:20 ABG O2 Saturation 98 % (95-98) 12/01/16 04:20 Calcium 9.2 mg/dL (8.6-10.8) 11/30/16 01:23 Magnesium 2.0 mg/dL (1.6-2.6) 11/26/16 05:51 - VTE Reasons for not Prescribing Prophylaxis: Not indicated-Anticoagulated or INR therapeutic Consult Discharge Plan - Plan Referrals: Arthur Pozo MD [Primary Care Provider] - 12/01/16 9:45 am (Please follow up as schedule..)
[2016-12-01] MEDS: *HR* Amiodarone 200 MG TABLET PO SCH (08:12)
[2016-12-01 08:44] LABS: Basophils % 0.3 %; Eosinophils # 0.1 K/mcL (0.0-0.6); Eosinophils % 0.8 %; Hematocrit 38.9 % (37.5-50.1); Hemoglobin 12.1 g/dL (12.9-16.9); Immature Granulocytes % 0.4 % (0-4); Immature Platelets 9.2 % (1.1-6.1); Lymphocytes # 0.8 K/mcL (0.6-4.6); Lymphocytes % 10.4 %; Mean Corpuscular HGB Conc 31.1 g/dL (31.6-35.5); Mean Corpuscular Hemoglobin 27.8 pg (28.0-33.3); Mean Corpuscular Volume 89.2 fL (83.0-100.0); Mean Platelet Volume 12.8 fL (9.4-12.4); Monocytes # 0.7 K/mcL (0.0-1.3); Monocytes % 9.3 %; Neutrophils # 5.9 K/mcL (1.6-8.9); Platelet Count 154 K/mcL (140-400); Red Blood Count 4.36 M/mcL (4.19-5.50); Segmented Neutrophils % 78.8 %
[2016-12-01 08:58] LABS: Albumin 2.4 g/dL (3.5-5.0); Albumin/Globulin Ratio 0.6 (1.1-2.2); Bilirubin,Direct 0.5 mg/dL (0.0-0.5); Bilirubin,Indirect 0.4 mg/dL (0.0-1.2); Bilirubin,Total 0.9 mg/dL (0.2-1.2); Calcium 9.9 mg/dL (8.6-10.8); Globulin 4.3 g/dL (2.4-3.5); Total Protein 6.7 g/dL (6.0-8.3)
[2016-12-01 09:11] LABS: Potassium 4.4 mEq/L (3.5-4.5)
[2016-12-01] MEDS ORDERED: Cosyntropin 250 MCG/2 ML VIAL IVP ONE (09:13)
[2016-12-01] MEDS: Budesonide/Formoterol 160/4.5 MDI IH SCH ×2 (09:36→22:14)
[2016-12-01] MEDS ORDERED: Sennosides 8.6 MG TABLET PO ONE (10:18)
[2016-12-01] MEDS: Norepinephrine 4 MG in D5% in Water 250 ML IVC SCH (11:53)
--- NOTE | 2016-12-01 17:40 | Electrocardiograph Report ---
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
[2016-12-01] MEDS ORDERED: *HR* Warfarin 5 MG TABLET PO ONE (18:00)
[2016-12-01 19:55] LABS: Basophils % 0.4 %; Eosinophils # 0.1 K/mcL (0.0-0.6); Eosinophils % 0.9 %; Hematocrit 38.1 % (37.5-50.1); Hemoglobin 11.7 g/dL (12.9-16.9); Immature Granulocytes % 0.3 % (0-4); Lymphocytes # 0.7 K/mcL (0.6-4.6); Lymphocytes % 8.4 %; Mean Corpuscular HGB Conc 30.7 g/dL (31.6-35.5); Mean Corpuscular Hemoglobin 27.4 pg (28.0-33.3); Mean Corpuscular Volume 89.2 fL (83.0-100.0); Monocytes # 0.8 K/mcL (0.0-1.3); Monocytes % 10.3 %; Neutrophils # 6.3 K/mcL (1.6-8.9); Platelet Count 161 K/mcL (140-400); Red Blood Count 4.27 M/mcL (4.19-5.50); Red Cell Distribution Width 19.9 % (11.5-14.5); Segmented Neutrophils % 79.7 %
[2016-12-01] MEDS: Sennosides 8.6 MG TABLET PO SCH (20:04)
[2016-12-02] MEDS: Insulin LISPRO 300 UNITS/3 ML VIAL SQ SCH ×7 (00:06→23:45)
[2016-12-02] MEDS: FentaNYL (PF) 3,000 MCG in 0.9 % Sodium Chloride 240 ML IVC SCH ×2 (01:31→21:02)
[2016-12-02] MEDS: Dexmedetomidine HCl 400 MCG/100 ML MLS IVC SCH ×7 (02:11→23:35)
[2016-12-02 03:15] LABS: Basophils % 0.4 %; Eosinophils # 0.1 K/mcL (0.0-0.6); Eosinophils % 0.7 %; Hematocrit 37.8 % (37.5-50.1); Immature Granulocytes % 0.3 % (0-4); Lymphocytes # 0.9 K/mcL (0.6-4.6); Lymphocytes % 11.8 %; Mean Corpuscular HGB Conc 31.7 g/dL (31.6-35.5); Mean Corpuscular Hemoglobin 28.3 pg (28.0-33.3); Mean Corpuscular Volume 89.2 fL (83.0-100.0); Mean Platelet Volume 11.6 fL (9.4-12.4); Monocytes # 0.9 K/mcL (0.0-1.3); Monocytes % 12.7 %; Neutrophils # 5.3 K/mcL (1.6-8.9); Platelet Count 162 K/mcL (140-400); Red Blood Count 4.24 M/mcL (4.19-5.50); Red Cell Distribution Width 19.9 % (11.5-14.5); Segmented Neutrophils % 74.1 %
[2016-12-02 03:21] LABS: INR 2.2
[2016-12-02 03:31] LABS: Calcium 9.8 mg/dL (8.6-10.8); Magnesium 2.1 mg/dL (1.6-2.6); Potassium 4.3 mEq/L (3.5-4.5)
[2016-12-02] MEDS: Levalbuterol Neb 0.63 MG/3 ML IH SCH ×4 (03:59→22:43)
[2016-12-02] MEDS: Ipratropium Neb 0.5 MG NEBULIZER IH SCH ×4 (03:59→22:43)
[2016-12-02 04:56] LABS: ABG Base Excess -0.5 mEq/L (-2.0 to 3.0); ABG HCO3 24.2 mEQ/L (21-27); ABG Oxygen Saturation 93 % (95-98); ABG PCO2 39 mmHg (35-45); ABG PO2 67 mmHg (85-104); ABG TCO2 25.4 mEq/L (20-26); Blood Gas FiO2 30 %
[2016-12-02] MEDS: Calcium Acetate 667 MG CAPSULE PO SCH ×3 (07:57→16:53)
[2016-12-02] MEDS: Nicotine 14 MG PATCH.TD24 TD SCH (08:09)
[2016-12-02] MEDS: *HR* Amiodarone 200 MG TABLET PO SCH (08:09)
[2016-12-02] MEDS: Chlorhexidine Rinse 15 ML MOUTHWASH MM SCH ×2 (08:09→19:46)
[2016-12-02] MEDS: Pantoprazole 40 MG VIAL IVP SCH (08:09)
[2016-12-02] MEDS: Sennosides 8.6 MG TABLET PO SCH ×2 (08:09→19:47)
[2016-12-02] MEDS: Docusate Oral Soln 100 MG/10 ML UDC GTUBE SCH ×2 (08:09→19:47)
--- NOTE | 2016-12-02 08:28 | Pulmonology Progress Note ---
<GulshanOluAlexi W - Last Filed: 12/02/16 10:51> Date of Encounter: 12/02/16 Objective PUL Vital signs: Last Vital Signs Temp 97.3 F L 12/02/16 07:51 Pulse 89 12/02/16 10:00 Resp 20 12/02/16 10:00 BP 141/99 12/02/16 10:00 Pulse Ox 95 12/02/16 10:00 Ventilator Settings Ventilator Settings: Ventilator Settings, Last 8 Hours Ventilator Mode A/C Ventilator Mode A/C Ventilator Mode A/C Ventilator Mode A/C Ventilator Mode A/C Ventilator Mode A/C Ventilator Mode A/C Ventilator Mode A/C Ventilator Mode A/C Ventilator Mode A/C Ventilator Mode A/C Ventilator Tidal Volume 500 Setting Ventilator Tidal Volume 500 Setting Ventilator Tidal Volume 500 Setting Ventilator Tidal Volume 500 Setting Ventilator Tidal Volume 500 Setting Ventilator Tidal Volume 500 Setting Ventilator Tidal Volume 500 Setting Ventilator Tidal Volume 500 Setting Ventilator Tidal Volume 500 Setting Ventilator Tidal Volume 500 Setting Ventilator Tidal Volume 500 Setting Ventilator Respiratory Rate 20 Setting Ventilator Respiratory Rate 20 Setting Ventilator Respiratory Rate 20 Setting Ventilator Respiratory Rate 20 Setting Ventilator Respiratory Rate 20 Setting Ventilator Respiratory Rate 20 Setting Ventilator Respiratory Rate 20 Setting Ventilator Respiratory Rate 20 Setting Ventilator Respiratory Rate 20 Setting Ventilator Respiratory Rate 20 Setting Ventilator Respiratory Rate 20 Setting Actual Respiratory Rate 20 Actual Respiratory Rate 20 Actual Respiratory Rate 20 Actual Respiratory Rate 20 Actual Respiratory Rate 20 Actual Respiratory Rate 20 Actual Respiratory Rate 20 Actual Respiratory Rate 20 Actual Respiratory Rate 20 Actual Respiratory Rate 20 Positive End Expiratory 8 Pressure Positive End Expiratory 8 Pressure Positive End Expiratory 8 Pressure Positive End Expiratory 8 Pressure Positive End Expiratory 8 Pressure Positive End Expiratory 8 Pressure Positive End Expiratory 8 Pressure Positive End Expiratory 8 Pressure Positive End Expiratory 8 Pressure Positive End Expiratory 8 Pressure Positive End Expiratory 8 Pressure Peak Inspiratory Airway 42 Pressure Peak Inspiratory Airway 54 Pressure Peak Inspiratory Airway 33 Pressure Peak Inspiratory Airway 35 Pressure Peak Inspiratory Airway 38 Pressure Peak Inspiratory Airway 34 Pressure Peak Inspiratory Airway 33 Pressure Results - Laboratory Findings CBC and BMP: 12/02/16 03:00 12/02/16 03:00 ABG ABG pH 7.40 pH Units (7.32-7.45) 12/02/16 04:44 ABG pCO2 39 mmHg (35-45) 12/02/16 04:44 ABG pO2 67 mmHg (85-104) L 12/02/16 04:44 ABG O2 Saturation 93 % (95-98) L 12/02/16 04:44 PT/INR, D-dimer PT 24.0 Seconds (9.4-12.1) H 12/02/16 03:00 Abnormal lab findings: Abnormal lab results Hgb 12.0 g/dL (12.9-16.9) L 12/02/16 03:00 RDW 19.9 % (11.5-14.5) H 12/02/16 03:00 Nucleated RBCs/100 WBC 0.5 /100 WBC (0) H 11/20/16 00:57 Platelet Estimate Slight Decrease (Normal) L 11/26/16 05:51 Immature Plt Fraction 9.2 % (1.1-6.1) H 12/01/16 08:35 Polychromasia 1+ (Not Present) A 11/26/16 05:51 Hypochromasia Present (Not Present) A 11/26/16 05:51 Basophilic Stippling 1+ (Not Present) A 11/25/16 07:02 Anisocytosis 1+ (Not Present) A 11/26/16 05:51 Microcytosis Present (Not Present) A 11/26/16 05:51 Macrocytosis Present (Not Present) A 11/26/16 05:51 PT 24.0 Seconds (9.4-12.1) H 12/02/16 03:00 ABG pO2 67 mmHg (85-104) L 12/02/16 04:44 ABG O2 Saturation 93 % (95-98) L 12/02/16 04:44 Chloride 94 mEq/L (98-109) L 12/02/16 03:00 BUN 54 mg/dL (8-26) H 12/02/16 03:00 Creatinine 7.83 mg/dL (0.72-1.25) H 12/02/16 03:00 Est GFR ( Amer) 9 (> 60) L 12/02/16 03:00 Est GFR (Non-Af Amer) 7 (> 60) L 12/02/16 03:00 Glucose 114 mg/dL (70-99) H 12/02/16 03:00 POC Glucose 115 (58-89) H 12/02/16 07:14 Hemoglobin A1c 7.1 % (-5.6) H 11/22/16 05:52 AST 68 Units/L (5-34) H 12/01/16 08:35 Alkaline Phosphatase 498 Units/L (38-126) H 12/01/16 08:35 Troponin I 0.04 ng/mL (0-0.03) H* 11/30/16 15:09 B-Natriuretic Peptide 844 pg/mL (0-100) H 11/19/16 03:43 Albumin 2.4 g/dL (3.5-5.0) L 12/01/16 08:35 Globulin 4.3 g/dL (2.4-3.5) H 12/01/16 08:35 Albumin/Globulin Ratio 0.6 (1.1-2.2) L 12/01/16 08:35 - Microbiology Findings Microbiology Findings: Microbiology, Last 48 Hours 11/30/16 15:09 Blood Culture - Preliminary Central Venous Catheter No growth. 11/30/16 15:15 Urine Culture - Preliminary Urine,Catheterized Gram Positive Cocci - Clinical Findings Intake & Output: Intake & Output 12/01/16 12/02/16 12/02/16 23:59 07:59 15:59 Intake Total 300 / 300 280 / 280 220 / 220 Output Total 450 / 450 800 / 800 Balance -150 / -150 -520 / -520 220 / 220 Weight 109.71 kg Consult Discharge Plan - Plan Referrals: Arthur Pozo MD [Primary Care Provider] - 12/01/16 9:45 am (Please follow up as schedule..) - Attending Attestation I examined this patient and my medical decision-making was reviewed with the Resident Physician. I agree with the documented findings, disposition and treatment plan as described except to the extent set forth below. Patient seen and examined at bedside Labs, radiology, chart personally reviewed. All lines examined without evidence of infection. Management was reviewed during multidisciplinary critical care rounds. Neuropsych: Fully awake and alert decrease narcotic infusion continue Precedex for agitation Pulm: Acute on chronic hypoxic hypercarbic respiratory failure secondary to pulmonary edema minimal vent settings today with acceptable oxygenation and ventilation CPAP trial pending Cards: Chronic systolic heart failure with shock that has resolved his been weaned off vasopressor support he has chronic hypotension which is likely related to ESRD admitted trend has been started for this. Dialysis with volume removal for pulmonary edema; A. fib rate controlled continue oral amiodarone FEN-GI: He is nothing by mouth currently for high residuals without evidence of small bowel obstruction we are advancing his bowel regimen and adding lactulose ; GI prophylaxis given Renal: ESRD dialysis today replacing electrolytes per protocol ID: Cultures as far have no gross today the leukocytosis and patient does not have a fever continue to monitor Heme/Onc: He is receiving warfarin for chronic atrial fibrillation and primary stroke prevention Endo: Glucose monitored he had a low normal cortisol level in the context of acute critical illness underwent cosyntropin stim test yesterday which was borderline low given improvement in pressures admitted related to not feel compelled to necessarily start stress dose hydrocortisone right now but if pressure remains low we will consider adding this to his regimen Integ/MSK: Skin care per routine ICU protocol to prevent ulcers CODE: Full <Ruma Hurtado - Last Filed: 12/02/16 15:23> Date of Encounter: 12/02/16 Time of Encounter: 08:28 Assessment and Plan (1) Acute on chronic respiratory failure with hypoxia and hypercapnia Current Visit: Yes Status: Acute Patient's end-stage renal disease. He is sedated on the ventilator. Failed a CPAP trial today. Has a history of noncompliance with medical treatment. Plan: Continue dialysis per nephrology. Decrease sedation as tolerated. CPAP trial in the morning. Continue midodrine. Continue amiodarone by mouth for A. fib. Lactulose today to encourage bowel movement. Coumadin per pharmacy dosing for A. fib. Sliding-scale insulin Protonix for GI prophylaxis (2) End stage renal disease on dialysis Current Visit: Yes Status: Chronic (3) Hx of noncompliance with medical treatment, presenting hazards to health Current Visit: Yes Status: Chronic (4) Diabetes mellitus Current Visit: Yes Status: Chronic (5) ZAINAB (obstructive sleep apnea) Current Visit: Yes Status: Chronic (6) Atrial fibrillation Current Visit: No Status: Chronic Subjective Principal diagnosis: aflutter with RVR Interval history: No events overnight. Patient failed CPAP trial this morning. He became apneic. He is alert on minimal sedation. He is moving all 4 extremities. He does give a thumbs up with both hands. We will continue dialysis and attempt another CPAP trial tomorrow. Objective PUL Vital signs: Last Vital Signs Temp 97.3 F L 12/02/16 07:51 Pulse 87 12/02/16 06:00 Resp 20 12/02/16 06:23 BP 91/72 12/02/16 06:23 Pulse Ox 92 12/02/16 06:23 General appearance: no acute distress, alert Eyes: nonicteric ENT: oropharynx moist Neck: supple Effort: normal Auscultation: bilateral: clear Cardiovascular: regular rate and rhythm Gastrointestinal: normoactive bowel sounds, soft, non-tender, non-distended Integumentary: normal Extremities: no cyanosis, no clubbing, pink and warm, pulses normal, no ischemia or petechiae, edema (Mild edema to bilateral lower extremities) Musculoskeletal: no deformities Ventilator Settings Ventilator Settings: Ventilator Settings, Last 8 Hours Ventilator Mode A/C Ventilator Mode A/C Ventilator Mode A/C Ventilator Mode A/C Ventilator Mode A/C Ventilator Mode A/C Ventilator Mode A/C Ventilator Mode A/C Ventilator Mode A/C Ventilator Mode A/C Ventilator Tidal Volume 500 Setting Ventilator Tidal Volume 500 Setting Ventilator Tidal Volume 500 Setting Ventilator Tidal Volume 500 Setting Ventilator Tidal Volume 500 Setting Ventilator Tidal Volume 500 Setting Ventilator Tidal Volume 500 Setting Ventilator Tidal Volume 500 Setting Ventilator Tidal Volume 500 Setting Ventilator Tidal Volume 500 Setting Ventilator Respiratory Rate 20 Setting Ventilator Respiratory Rate 20 Setting Ventilator Respiratory Rate 20 Setting Ventilator Respiratory Rate 20 Setting Ventilator Respiratory Rate 20 Setting Ventilator Respiratory Rate 20 Setting Ventilator Respiratory Rate 20 Setting Ventilator Respiratory Rate 20 Setting Ventilator Respiratory Rate 20 Setting Ventilator Respiratory Rate 20 Setting Actual Respiratory Rate 20 Actual Respiratory Rate 20 Actual Respiratory Rate 20 Actual Respiratory Rate 20 Actual Respiratory Rate 20 Actual Respiratory Rate 20 Actual Respiratory Rate 20 Actual Respiratory Rate 20 Actual Respiratory Rate 20 Positive End Expiratory 8 Pressure Positive End Expiratory 8 Pressure Positive End Expiratory 8 Pressure Positive End Expiratory 8 Pressure Positive End Expiratory 8 Pressure Positive End Expiratory 8 Pressure Positive End Expiratory 8 Pressure Positive End Expiratory 8 Pressure Positive End Expiratory 8 Pressure Positive End Expiratory 8 Pressure Peak Inspiratory Airway 38 Pressure Peak Inspiratory Airway 34 Pressure Peak Inspiratory Airway 33 Pressure Peak Inspiratory Airway 33 Pressure Peak Inspiratory Airway 35 Pressure Peak Inspiratory Airway 35 Pressure Results - Laboratory Findings CBC and BMP: 12/02/16 03:00 12/02/16 03:00 ABG ABG pH 7.40 pH Units (7.32-7.45) 12/02/16 04:44 ABG pCO2 39 mmHg (35-45) 12/02/16 04:44 ABG pO2 67 mmHg (85-104) L 12/02/16 04:44 ABG O2 Saturation 93 % (95-98) L 12/02/16 04:44 PT/INR, D-dimer PT 24.0 Seconds (9.4-12.1) H 12/02/16 03:00 Abnormal lab findings: Abnormal lab results Hgb 12.0 g/dL (12.9-16.9) L 12/02/16 03:00 RDW 19.9 % (11.5-14.5) H 12/02/16 03:00 Nucleated RBCs/100 WBC 0.5 /100 WBC (0) H 11/20/16 00:57 Platelet Estimate Slight Decrease (Normal) L 11/26/16 05:51 Immature Plt Fraction 9.2 % (1.1-6.1) H 12/01/16 08:35 Polychromasia 1+ (Not Present) A 11/26/16 05:51 Hypochromasia Present (Not Present) A 11/26/16 05:51 Basophilic Stippling 1+ (Not Present) A 11/25/16 07:02 Anisocytosis 1+ (Not Present) A 11/26/16 05:51 Microcytosis Present (Not Present) A 11/26/16 05:51 Macrocytosis Present (Not Present) A 11/26/16 05:51 PT 24.0 Seconds (9.4-12.1) H 12/02/16 03:00 ABG pO2 67 mmHg (85-104) L 12/02/16 04:44 ABG O2 Saturation 93 % (95-98) L 12/02/16 04:44 Chloride 94 mEq/L (98-109) L 12/02/16 03:00 BUN 54 mg/dL (8-26) H 12/02/16 03:00 Creatinine 7.83 mg/dL (0.72-1.25) H 12/02/16 03:00 Est GFR ( Amer) 9 (> 60) L 12/02/16 03:00 Est GFR (Non-Af Amer) 7 (> 60) L 12/02/16 03:00 Glucose 114 mg/dL (70-99) H 12/02/16 03:00 POC Glucose 115 (58-89) H 12/02/16 07:14 Hemoglobin A1c 7.1 % (-5.6) H 11/22/16 05:52 AST 68 Units/L (5-34) H 12/01/16 08:35 Alkaline Phosphatase 498 Units/L (38-126) H 12/01/16 08:35 Troponin I 0.04 ng/mL (0-0.03) H* 11/30/16 15:09 B-Natriuretic Peptide 844 pg/mL (0-100) H 11/19/16 03:43 Albumin 2.4 g/dL (3.5-5.0) L 12/01/16 08:35 Globulin 4.3 g/dL (2.4-3.5) H 12/01/16 08:35 Albumin/Globulin Ratio 0.6 (1.1-2.2) L 12/01/16 08:35 - Microbiology Findings Microbiology Findings: Microbiology, Last 48 Hours 11/30/16 15:09 Blood Culture - Preliminary Central Venous Catheter No growth. 11/30/16 15:15 Urine Culture - Preliminary Urine,Catheterized Gram Positive Cocci - Clinical Findings Intake & Output: Intake & Output 12/01/16 12/02/16 12/02/16 23:59 07:59 15:59 Intake Total 300 / 300 280 / 280 Output Total 450 / 450 0 / 0 Balance -150 / -150 280 / 280 Weight 109.71 kg - VTE Reasons for not Prescribing Prophylaxis: Not indicated-Anticoagulated or INR therapeutic
[2016-12-02] MEDS ORDERED: 0.9 % Sodium Chloride 250 ML IVC PRN (08:44)
--- NOTE | 2016-12-02 08:44 | Nephrology Progress Note ---
Date of Encounter: 12/02/16 Time of Encounter: 08:43 - Assessment and Plan (1) End stage renal disease on dialysis Current Visit: Yes Status: Chronic The patient will undergo dialysis today. His volume status continues to improve with aggressive dialysis and ultrafiltration. (2) Nonischemic cardiomyopathy Current Visit: No Status: Chronic (3) Atrial fibrillation Current Visit: No Status: Acute Qualifiers: Atrial fibrillation type: paroxysmal Qualified Code(s): I48.0 - Paroxysmal atrial fibrillation Subjective Principal diagnosis: aflutter with RVR Interval history: Patient remains sedated on the ventilator. His oxygen requirements are decreasing. He had additional ultrafiltration yesterday and is scheduled for dialysis today. Objective - Vital Signs Vital signs: Vital Signs Temp Pulse Resp BP Pulse Ox 12/02/16 08:33 94 20 113/86 95 12/02/16 07:51 97.3 F L 12/02/16 07:30 86 20 118/87 91 12/02/16 06:23 20 91/72 92 12/02/16 06:00 87 20 138/82 93 12/02/16 05:00 89 20 138/101 95 12/02/16 04:00 86 20 131/94 95 12/02/16 03:10 89 20 128/87 94 12/02/16 02:50 98.3 F 12/02/16 02:24 20 131/89 94 12/02/16 02:00 89 20 122/89 95 12/02/16 01:06 91 20 128/91 95 12/02/16 00:11 20 119/102 97 12/02/16 00:00 80 20 113/89 94 12/01/16 23:45 97.9 F 12/01/16 23:00 94 20 126/90 96 12/01/16 22:15 20 99 12/01/16 21:59 94 20 119/88 97 12/01/16 21:00 98 20 115/87 97 12/01/16 20:47 20 110/83 96 12/01/16 20:00 97.2 F L 88 20 113/78 97 12/01/16 19:03 98 20 96/70 97 12/01/16 18:12 20 97 12/01/16 18:00 91 20 129/97 100 12/01/16 17:00 100 20 126/99 100 12/01/16 16:49 20 100 12/01/16 16:33 88 12/01/16 16:00 97.9 F 105 20 96/66 97 12/01/16 15:00 101 20 96/70 99 12/01/16 14:00 94 20 101/68 100 12/01/16 13:39 97.9 F 15 104/80 12/01/16 13:24 22 96 12/01/16 13:00 94 20 113/79 99 12/01/16 12:45 101 137/69 12/01/16 12:30 87/39 12/01/16 12:15 104/41 12/01/16 12:00 98 20 90/74 98 12/01/16 11:45 104/38 12/01/16 11:35 20 91/63 99 12/01/16 11:30 96/65 12/01/16 11:15 91/63 12/01/16 11:00 98.2 F 95 20 97/60 99 12/01/16 10:00 92 20 96/66 97 12/01/16 09:36 24 81/43 97 12/01/16 09:00 101 20 77/50 97 Intake and Output 12/01/16 12/02/16 12/02/16 23:59 07:59 15:59 Intake Total 300 / 300 280 / 280 Output Total 450 / 450 800 / 800 Balance -150 / -150 -520 / -520 Intake: IV Fluids 300 / 300 280 / 280 PRECEDEX 400 mcg In 100 200 / 200 200 / 200 ml @ 0.2 MCG/KG/HR 6.425 mls/hr IVC .[id number] [facility] Rx#:[id number] FentaNYL (PF) 3,000 MCG 80 / 80 In 0.9 % Sodium Chloride 240 ML @ 100 MCG/HR 10 mls/hr IVC CONT [facility] Rx#: [id number] Levophed 4 MG In Dextrose 100 / 100 5% 250 ML @ 5 MCG/MIN 18 .75 mls/hr IVC [facility] Rx#:[id number] Output: Urine 0 / 0 0 / 0 Gastric Drainage 450 / 450 800 / 800 Other: Weight 109.71 kg Blood Glucose* 107 115 Patient Weight 12/02/16 23:59 Weight 109.71 kg - General Appearance Exam: Patient is sedated on the ventilator. He appears to be comfortable. Vital signs are stable. Lungs diminished breath sounds. Heart irregular rate and rhythm. Abdomen is obese. Bowel sounds are present. No guarding nor rigidity. There is minimal lower extremity swelling. There is a functioning AV fistula in the left upper extremity. - Lab 12/02/16 03:00 12/02/16 03:00 Most recent lab results ABG pH 7.40 pH Units (7.32-7.45) 12/02/16 04:44 ABG pCO2 39 mmHg (35-45) 12/02/16 04:44 ABG pO2 67 mmHg (85-104) L 12/02/16 04:44 ABG HCO3 24.2 mEQ/L (21-27) 12/02/16 04:44 ABG O2 Saturation 93 % (95-98) L 12/02/16 04:44 Calcium 9.8 mg/dL (8.6-10.8) 12/02/16 03:00 Magnesium 2.1 mg/dL (1.6-2.6) 12/02/16 03:00 - VTE Reasons for not Prescribing Prophylaxis: Not indicated-Anticoagulated or INR therapeutic Consult Discharge Plan - Plan Referrals: Arthur Pozo MD [Primary Care Provider] - 12/01/16 9:45 am (Please follow up as schedule..)
[2016-12-02] MEDS: Budesonide/Formoterol 160/4.5 MDI IH SCH ×2 (09:35→22:43)
[2016-12-02] MEDS ORDERED: Lactulose Oral Soln 20 GM/30 ML UDC PO PRN (11:23)
[2016-12-02] MEDS: Norepinephrine 4 MG in D5% in Water 250 ML IVC SCH (13:40)
[2016-12-02] MEDS ORDERED: Ampicillin 2 GM in 0.9 % Sodium Chloride Mini Bag 100 ML IVPB SCH (16:00)
[2016-12-02] MEDS ORDERED: *HR* Warfarin 2.5 MG TABLET PO ONE (18:00)
[2016-12-03] MEDS: Dexmedetomidine HCl 400 MCG/100 ML MLS IVC SCH ×7 (01:51→22:50)
[2016-12-03] MEDS: Insulin LISPRO 300 UNITS/3 ML VIAL SQ SCH ×5 (03:34→20:31)
[2016-12-03 03:54] LABS: Basophils % 0.5 %; Eosinophils # 0.1 K/mcL (0.0-0.6); Eosinophils % 1.2 %; Hematocrit 37.8 % (37.5-50.1); Hemoglobin 11.8 g/dL (12.9-16.9); Immature Granulocytes % 0.2 % (0-4); Lymphocytes # 0.8 K/mcL (0.6-4.6); Lymphocytes % 12.6 %; Mean Corpuscular HGB Conc 31.2 g/dL (31.6-35.5); Mean Corpuscular Hemoglobin 27.7 pg (28.0-33.3); Mean Corpuscular Volume 88.7 fL (83.0-100.0); Mean Platelet Volume 10.7 fL (9.4-12.4); Monocytes # 0.9 K/mcL (0.0-1.3); Monocytes % 13.3 %; Neutrophils # 4.7 K/mcL (1.6-8.9); Platelet Count 170 K/mcL (140-400); Red Blood Count 4.26 M/mcL (4.19-5.50); Red Cell Distribution Width 19.3 % (11.5-14.5); Segmented Neutrophils % 72.2 %
[2016-12-03 03:58] LABS: INR 3.1
[2016-12-03 04:07] LABS: Calcium 9.7 mg/dL (8.6-10.8); Magnesium 2.2 mg/dL (1.6-2.6); Potassium 4.4 mEq/L (3.5-4.5)
[2016-12-03] MEDS: Levalbuterol Neb 0.63 MG/3 ML IH SCH ×4 (04:45→22:09)
[2016-12-03] MEDS: Ipratropium Neb 0.5 MG NEBULIZER IH SCH ×4 (04:45→22:09)
[2016-12-03 06:04] LABS: ABG Base Excess 1.2 mEq/L (-2.0 to 3.0); ABG Oxygen Saturation 96 % (95-98); ABG PCO2 41 mmHg (35-45); ABG PH 7.41 pH Units (7.32-7.45); ABG PO2 78 mmHg (85-104); ABG TCO2 27.3 mEq/L (20-26)
[2016-12-03 06:05] LABS: Blood Gas FiO2 30 %
[2016-12-03] MEDS: FentaNYL (PF) 3,000 MCG in 0.9 % Sodium Chloride 240 ML IVC SCH ×2 (07:15→23:44)
[2016-12-03] MEDS: Nicotine 14 MG PATCH.TD24 TD SCH (07:36)
[2016-12-03] MEDS: Chlorhexidine Rinse 15 ML MOUTHWASH MM SCH ×2 (07:37→20:31)
[2016-12-03] MEDS: Calcium Acetate 667 MG CAPSULE PO SCH ×3 (07:37→16:35)
[2016-12-03] MEDS: *HR* Amiodarone 200 MG TABLET PO SCH (07:37)
[2016-12-03] MEDS: Sennosides 8.6 MG TABLET PO SCH ×2 (07:38→20:31)
[2016-12-03] MEDS: Docusate Oral Soln 100 MG/10 ML UDC GTUBE SCH ×2 (07:48→20:31)
[2016-12-03] MEDS: Pantoprazole 40 MG VIAL IVP SCH (08:36)
[2016-12-03] MEDS: Budesonide/Formoterol 160/4.5 MDI IH SCH ×2 (09:15→22:09)
--- NOTE | 2016-12-03 09:42 | Nephrology Progress Note ---
Date of Encounter: 12/03/16 Time of Encounter: 09:25 - Assessment and Plan (1) End stage renal disease on dialysis Current Visit: Yes Status: Chronic Hypercapneic respratory failure. HD tomorrow, keeping MWF schedule. Subjective Principal diagnosis: aflutter with RVR Interval history: Intubated, mild sedation. Opens eyes, focuses, attempts to talk around tube. fiO2 30, peep 5. Objective - Vital Signs Vital signs: Vital Signs Temp Pulse Resp BP Pulse Ox 12/03/16 08:22 97 20 117/89 96 12/03/16 07:55 98.3 F 12/03/16 07:40 20 108/77 92 12/03/16 07:30 89 20 108/77 96 12/03/16 05:45 91 20 145/95 99 12/03/16 04:57 93 20 128/91 99 12/03/16 04:45 20 128/91 97 12/03/16 04:12 98.4 F 12/03/16 03:52 88 20 122/78 92 12/03/16 03:27 99 12/03/16 03:00 90 20 116/80 92 12/03/16 02:47 20 114/85 92 12/03/16 02:00 99 20 129/90 96 12/03/16 01:00 96 20 126/78 96 12/03/16 00:49 20 131/96 96 12/03/16 00:00 97 20 118/83 95 12/02/16 23:49 98 12/02/16 23:43 98.5 F 12/02/16 23:00 98 20 115/74 95 12/02/16 22:43 24 136/99 95 12/02/16 22:00 86 20 136/97 94 12/02/16 21:00 91 20 119/92 92 12/02/16 20:00 93 20 133/93 92 12/02/16 19:54 96 12/02/16 19:31 98.4 F 12/02/16 18:00 91 20 112/78 92 12/02/16 17:03 20 134/112 98 12/02/16 17:00 88 20 123/91 96 12/02/16 16:00 97 20 132/96 99 12/02/16 15:55 98.4 F 12/02/16 15:50 20 129/90 98 07/26/17 15:10 98.0 F 17 119/91 12/02/16 15:00 103 20 118/88 98 12/02/16 14:45 97/76 12/02/16 14:30 106/80 12/02/16 14:15 109/78 12/02/16 14:00 97 20 113/69 96 12/02/16 13:45 110/78 12/02/16 13:30 20 107/80 95 12/02/16 13:15 120/80 12/02/16 13:00 97 20 108/76 97 12/02/16 12:45 110/80 12/02/16 12:30 105/74 12/02/16 12:15 112/83 12/02/16 12:00 93 20 112/86 97 12/02/16 11:58 98.4 F 12/02/16 11:45 118/78 12/02/16 11:30 115/87 12/02/16 11:17 20 132/93 94 12/02/16 11:15 132/92 12/02/16 11:00 133/90 12/02/16 10:45 132/93 12/02/16 10:30 98.4 F 16 141/99 12/02/16 10:00 89 20 141/99 95 Intake and Output 12/02/16 12/03/16 12/03/16 23:59 07:59 15:59 Intake Total 580 / 580 500 / 500 120 / 120 Output Total 0 / 0 0 / 0 Balance 580 / 580 500 / 500 120 / 120 Intake: IV Fluids 520 / 520 500 / 500 PRECEDEX 400 mcg In 100 300 / 300 200 / 200 ml @ 0.2 MCG/KG/HR 6.425 mls/hr IVC .[id number] [facility] Rx#:[id number] FentaNYL (PF) 3,000 MCG 220 / 220 300 / 300 In 0.9 % Sodium Chloride 240 ML @ 100 MCG/HR 10 mls/hr IVC CONT [facility] Rx#: [id number] Oral 0 / 0 0 / 0 Free Water 60 / 60 120 / 120 Output: Urine 0 / 0 0 / 0 Other: Stool Size Small Stool Consistency loose liquid Stool Color Brown Blood Glucose* 115 104 - General Appearance General appearance: Present: well-developed, well-nourished, appears started age , obese EENT: Present: mucous membranes moist Neck: Present: no JVD Respiratory: Present: rhonchi Cardiology: Present: no edema, irregular rhythm Gastrointestinal: Present: normoactive bowel sounds Integumentary: Present: warm and dry Psychiatric: Present: cooperative - Lab 12/03/16 03:45 12/03/16 03:45 Most recent lab results ABG pH 7.41 pH Units (7.32-7.45) 12/03/16 05:55 ABG pCO2 41 mmHg (35-45) 12/03/16 05:55 ABG pO2 78 mmHg (85-104) L 12/03/16 05:55 ABG HCO3 26.0 mEQ/L (21-27) 12/03/16 05:55 ABG O2 Saturation 96 % (95-98) 12/03/16 05:55 Calcium 9.7 mg/dL (8.6-10.8) 12/03/16 03:45 Magnesium 2.2 mg/dL (1.6-2.6) 12/03/16 03:45 - VTE Reasons for not Prescribing Prophylaxis: Not indicated-Anticoagulated or INR therapeutic Consult Discharge Plan - Plan Referrals: Arthur Pozo MD [Primary Care Provider] - 12/01/16 9:45 am (Please follow up as schedule..)
--- NOTE | 2016-12-03 12:20 | Pulmonology Progress Note ---
<Ruma Hurtado - Last Filed: 12/03/16 12:27> Date of Encounter: 12/03/16 Time of Encounter: 12:20 Assessment and Plan (1) Acute on chronic respiratory failure with hypoxia and hypercapnia Current Visit: Yes Status: Acute Patient's end-stage renal disease. He is sedated on the ventilator. Failed a CPAP trial yesterday and today. Has a history of noncompliance with medical treatment. Plan: Continue dialysis per nephrology. Decrease sedation as tolerated. CPAP trial in the morning. Continue midodrine. Continue amiodarone by mouth for A. fib. Coumadin per pharmacy dosing for A. fib. Sliding-scale insulin Protonix for GI prophylaxis (2) End stage renal disease on dialysis Current Visit: Yes Status: Chronic (3) Hx of noncompliance with medical treatment, presenting hazards to health Current Visit: Yes Status: Chronic (4) Diabetes mellitus Current Visit: Yes Status: Chronic Qualifiers: Diabetes mellitus type: type 2 Diabetes mellitus complication status: with kidney complications Diabetes mellitus complication detail: with chronic kidney disease Diabetes mellitus [facility] insulin use: unspecified [facility] insulin use status Chronic kidney disease stage: on chronic dialysis Qualified Code(s): E11.22 - Type 2 diabetes mellitus with diabetic chronic kidney disease; N18.6 - End stage renal disease; Z99.2 - Dependence on renal dialysis (5) ZAINAB (obstructive sleep apnea) Current Visit: Yes Status: Chronic (6) Atrial fibrillation Current Visit: No Status: Chronic Qualifiers: Atrial fibrillation type: paroxysmal Qualified Code(s): I48.0 - Paroxysmal atrial fibrillation Subjective Principal diagnosis: aflutter with RVR Interval history: No events overnight. Patient failed CPAP trial this morning. He became apneic. He is alert on minimal sedation. He is moving all 4 extremities. He does give a thumbs up with both hands. We will continue dialysis and attempt another CPAP trial tomorrow. We will CPAP as tolerated to help build lung volumes. While the patient is minimally sedated and very alert he has many periods of apnea. Objective PUL Vital signs: Last Vital Signs Temp 98.3 F 12/03/16 07:55 Pulse 96 12/03/16 10:20 Resp 22 12/03/16 11:05 BP 112/96 12/03/16 11:05 Pulse Ox 93 12/03/16 11:05 General appearance: no acute distress Eyes: nonicteric ENT: oropharynx moist Neck: supple Effort: normal Auscultation: bilateral: clear Cardiovascular: regular rate and rhythm Gastrointestinal: normoactive bowel sounds, non-distended Integumentary: normal, decubitus ulcer (To buttocks) Extremities: no cyanosis Musculoskeletal: no deformities Gait: normal posture normal mental status, non-focal exam mood appropriate, affect normal Ventilator Settings Ventilator Settings: Ventilator Settings, Last 8 Hours Ventilator Mode A/C Ventilator Mode A/C Ventilator Mode A/C Ventilator Mode A/C Ventilator Mode A/C Ventilator Mode A/C Ventilator Mode VC+ Ventilator Mode VC+ Ventilator Mode A/C Ventilator Tidal Volume 500 Setting Ventilator Tidal Volume 500 Setting Ventilator Tidal Volume 500 Setting Ventilator Tidal Volume 500 Setting Ventilator Tidal Volume 500 Setting Ventilator Tidal Volume 500 Setting Ventilator Tidal Volume 500 Setting Ventilator Tidal Volume 500 Setting Ventilator Tidal Volume 500 Setting Ventilator Respiratory Rate 20 Setting Ventilator Respiratory Rate 20 Setting Ventilator Respiratory Rate 20 Setting Ventilator Respiratory Rate 20 Setting Ventilator Respiratory Rate 20 Setting Ventilator Respiratory Rate 20 Setting Ventilator Respiratory Rate 20 Setting Ventilator Respiratory Rate 20 Setting Ventilator Respiratory Rate 20 Setting Actual Respiratory Rate 22 Actual Respiratory Rate 20 Actual Respiratory Rate 20 Actual Respiratory Rate 20 Actual Respiratory Rate 20 Actual Respiratory Rate 20 Actual Respiratory Rate 20 Actual Respiratory Rate 20 Positive End Expiratory 8 Pressure Positive End Expiratory 8 Pressure Positive End Expiratory 8 Pressure Positive End Expiratory 8 Pressure Positive End Expiratory 8 Pressure Positive End Expiratory 8 Pressure Positive End Expiratory 8 Pressure Positive End Expiratory 8 Pressure Positive End Expiratory 8 Pressure Peak Inspiratory Airway 30 Pressure Peak Inspiratory Airway 27 Pressure Peak Inspiratory Airway 29 Pressure Peak Inspiratory Airway 30 Pressure Peak Inspiratory Airway 35 Pressure Peak Inspiratory Airway 29 Pressure Peak Inspiratory Airway 31 Pressure Peak Inspiratory Airway 32 Pressure Peak Inspiratory Airway 32 Pressure Peak Inspiratory Airway 30 Pressure Results - Laboratory Findings CBC and BMP: 12/03/16 03:45 12/03/16 03:45 ABG ABG pH 7.41 pH Units (7.32-7.45) 12/03/16 05:55 ABG pCO2 41 mmHg (35-45) 12/03/16 05:55 ABG pO2 78 mmHg (85-104) L 12/03/16 05:55 ABG O2 Saturation 96 % (95-98) 12/03/16 05:55 PT/INR, D-dimer PT 35.0 Seconds (9.4-12.1) H 12/03/16 03:45 Abnormal lab findings: Abnormal lab results Hgb 11.8 g/dL (12.9-16.9) L 12/03/16 03:45 MCH 27.7 pg (28.0-33.3) L 12/03/16 03:45 MCHC 31.2 g/dL (31.6-35.5) L 12/03/16 03:45 RDW 19.3 % (11.5-14.5) H 12/03/16 03:45 Nucleated RBCs/100 WBC 0.5 /100 WBC (0) H 11/20/16 00:57 Platelet Estimate Slight Decrease (Normal) L 11/26/16 05:51 Immature Plt Fraction 9.2 % (1.1-6.1) H 12/01/16 08:35 Polychromasia 1+ (Not Present) A 11/26/16 05:51 Hypochromasia Present (Not Present) A 11/26/16 05:51 Basophilic Stippling 1+ (Not Present) A 11/25/16 07:02 Anisocytosis 1+ (Not Present) A 11/26/16 05:51 Microcytosis Present (Not Present) A 11/26/16 05:51 Macrocytosis Present (Not Present) A 11/26/16 05:51 PT 35.0 Seconds (9.4-12.1) H 12/03/16 03:45 ABG pO2 78 mmHg (85-104) L 12/03/16 05:55 ABG Total CO2 27.3 mEq/L (20-26) H 12/03/16 05:55 Chloride 97 mEq/L (98-109) L 12/03/16 03:45 BUN 35 mg/dL (8-26) H D 12/03/16 03:45 Creatinine 6.20 mg/dL (0.72-1.25) H 12/03/16 03:45 Est GFR ( Amer) 12 (> 60) L 12/03/16 03:45 Est GFR (Non-Af Amer) 10 (> 60) L 12/03/16 03:45 Glucose 116 mg/dL (70-99) H 12/03/16 03:45 POC Glucose 104 (58-89) H 12/03/16 07:57 Hemoglobin A1c 7.1 % (-5.6) H 11/22/16 05:52 AST 68 Units/L (5-34) H 12/01/16 08:35 Alkaline Phosphatase 498 Units/L (38-126) H 12/01/16 08:35 Troponin I 0.04 ng/mL (0-0.03) H* 11/30/16 15:09 B-Natriuretic Peptide 844 pg/mL (0-100) H 11/19/16 03:43 Albumin 2.4 g/dL (3.5-5.0) L 12/01/16 08:35 Globulin 4.3 g/dL (2.4-3.5) H 12/01/16 08:35 Albumin/Globulin Ratio 0.6 (1.1-2.2) L 12/01/16 08:35 - Microbiology Findings Microbiology Findings: Microbiology, Last 48 Hours 11/30/16 15:15 Urine Culture - Final Urine,Catheterized Enterococcus faecalis 11/30/16 15:09 Blood Culture - Preliminary Central Venous Catheter No growth. - Clinical Findings Intake & Output: Intake & Output 12/02/16 12/03/16 12/03/16 23:59 07:59 15:59 Intake Total 580 / 580 500 / 500 220 / 220 Output Total 0 / 0 0 / 0 Balance 580 / 580 500 / 500 220 / 220 - VTE Reasons for not Prescribing Prophylaxis: Not indicated-Anticoagulated or INR therapeutic Consult Discharge Plan - Plan Referrals: Arthur Pozo MD [Primary Care Provider] - 12/01/16 9:45 am (Please follow up as schedule..) <Alexi Gaffney - Last Filed: 12/03/16 14:04> Date of Encounter: 12/03/16 Objective PUL Vital signs: Last Vital Signs Temp 98.0 F 12/03/16 12:41 Pulse 86 12/03/16 13:14 Resp 20 12/03/16 13:14 BP 147/87 12/03/16 13:14 Pulse Ox 97 12/03/16 13:14 Ventilator Settings Ventilator Settings: Ventilator Settings, Last 8 Hours Ventilator Mode A/C Ventilator Mode A/C Ventilator Mode A/C Ventilator Mode A/C Ventilator Mode A/C Ventilator Mode A/C Ventilator Tidal Volume 500 Setting Ventilator Tidal Volume 500 Setting Ventilator Tidal Volume 500 Setting Ventilator Tidal Volume 500 Setting Ventilator Tidal Volume 500 Setting Ventilator Tidal Volume 500 Setting Ventilator Respiratory Rate 20 Setting Ventilator Respiratory Rate 20 Setting Ventilator Respiratory Rate 20 Setting Ventilator Respiratory Rate 20 Setting Ventilator Respiratory Rate 20 Setting Ventilator Respiratory Rate 20 Setting Actual Respiratory Rate 20 Actual Respiratory Rate 22 Actual Respiratory Rate 20 Actual Respiratory Rate 20 Actual Respiratory Rate 20 Actual Respiratory Rate 20 Positive End Expiratory 8 Pressure Positive End Expiratory 8 Pressure Positive End Expiratory 8 Pressure Positive End Expiratory 8 Pressure Positive End Expiratory 8 Pressure Positive End Expiratory 8 Pressure Peak Inspiratory Airway 29 Pressure Peak Inspiratory Airway 33 Pressure Peak Inspiratory Airway 31 Pressure Peak Inspiratory Airway 30 Pressure Peak Inspiratory Airway 27 Pressure Peak Inspiratory Airway 29 Pressure Peak Inspiratory Airway 30 Pressure Peak Inspiratory Airway 35 Pressure Peak Inspiratory Airway 29 Pressure Peak Inspiratory Airway 31 Pressure Results - Laboratory Findings CBC and BMP: 12/03/16 03:45 12/03/16 03:45 ABG ABG pH 7.41 pH Units (7.32-7.45) 12/03/16 05:55 ABG pCO2 41 mmHg (35-45) 12/03/16 05:55 ABG pO2 78 mmHg (85-104) L 12/03/16 05:55 ABG O2 Saturation 96 % (95-98) 12/03/16 05:55 PT/INR, D-dimer PT 35.0 Seconds (9.4-12.1) H 12/03/16 03:45 Abnormal lab findings: Abnormal lab results Hgb 11.8 g/dL (12.9-16.9) L 12/03/16 03:45 MCH 27.7 pg (28.0-33.3) L 12/03/16 03:45 MCHC 31.2 g/dL (31.6-35.5) L 12/03/16 03:45 RDW 19.3 % (11.5-14.5) H 12/03/16 03:45 Nucleated RBCs/100 WBC 0.5 /100 WBC (0) H 11/20/16 00:57 Platelet Estimate Slight Decrease (Normal) L 11/26/16 05:51 Immature Plt Fraction 9.2 % (1.1-6.1) H 12/01/16 08:35 Polychromasia 1+ (Not Present) A 11/26/16 05:51 Hypochromasia Present (Not Present) A 11/26/16 05:51 Basophilic Stippling 1+ (Not Present) A 11/25/16 07:02 Anisocytosis 1+ (Not Present) A 11/26/16 05:51 Microcytosis Present (Not Present) A 11/26/16 05:51 Macrocytosis Present (Not Present) A 11/26/16 05:51 PT 35.0 Seconds (9.4-12.1) H 12/03/16 03:45 ABG pO2 78 mmHg (85-104) L 12/03/16 05:55 ABG Total CO2 27.3 mEq/L (20-26) H 12/03/16 05:55 Chloride 97 mEq/L (98-109) L 12/03/16 03:45 BUN 35 mg/dL (8-26) H D 12/03/16 03:45 Creatinine 6.20 mg/dL (0.72-1.25) H 12/03/16 03:45 Est GFR ( Amer) 12 (> 60) L 12/03/16 03:45 Est GFR (Non-Af Amer) 10 (> 60) L 12/03/16 03:45 Glucose 116 mg/dL (70-99) H 12/03/16 03:45 POC Glucose 119 (58-89) H 12/03/16 12:32 Hemoglobin A1c 7.1 % (-5.6) H 11/22/16 05:52 AST 68 Units/L (5-34) H 12/01/16 08:35 Alkaline Phosphatase 498 Units/L (38-126) H 12/01/16 08:35 Troponin I 0.04 ng/mL (0-0.03) H* 11/30/16 15:09 B-Natriuretic Peptide 844 pg/mL (0-100) H 11/19/16 03:43 Albumin 2.4 g/dL (3.5-5.0) L 12/01/16 08:35 Globulin 4.3 g/dL (2.4-3.5) H 12/01/16 08:35 Albumin/Globulin Ratio 0.6 (1.1-2.2) L 12/01/16 08:35 - Microbiology Findings Microbiology Findings: Microbiology, Last 48 Hours 11/30/16 15:15 Urine Culture - Final Urine,Catheterized Enterococcus faecalis 11/30/16 15:09 Blood Culture - Preliminary Central Venous Catheter No growth. - Clinical Findings Intake & Output: Intake & Output 12/02/16 12/03/16 12/03/16 23:59 07:59 15:59 Intake Total 580 / 580 500 / 500 440 / 440 Output Total 0 / 0 0 / 0 Balance 580 / 580 500 / 500 440 / 440 - Attending Attestation I examined this patient and my medical decision-making was reviewed with the Resident Physician. I agree with the documented findings, disposition and treatment plan as described except to the extent set forth below. Patient seen and examined at bedside Labs, radiology, chart personally reviewed. All lines examined without evidence of infection. Management was reviewed during multidisciplinary critical care rounds. Neuropsych: Awake and alert following commands he is receiving Precedex infusion for agitation; continue daily sedation holiday Pulm: Acute on chronic hypoxic hypercarbic respiratory failure on vent excellent oxygenation on minimal vent settings continue volume removal. Pulmonary edema; CPAP trial today Cards: Chronic systolic heart failure A. fib rate controlled continue amiodarone FEN-GI: Continue enteral nutrition advance bowel regimen Renal: ESRD plan for volume removal today with dialysis replace lites per protocol ID: No clear evidence of infection presently. There is a urine culture associated with this patient's name although the patient is anuric I am not sure where this culture came from that I am not treating it at this point Heme/Onc: Therapeutic INR continue Coumadin Endo: Glucose monitored Integ/MSK: Skin care per routine CODE: Full
[2016-12-03] MEDS: Norepinephrine 4 MG in D5% in Water 250 ML IVC SCH (12:45)
[2016-12-03] MEDS ORDERED: *HR* Labetalol 20 MG/4 ML SYRINGE IVP ONE (21:16)
[2016-12-04] MEDS: Dexmedetomidine HCl 400 MCG/100 ML MLS IVC SCH ×3 (00:25→05:21)
[2016-12-04] MEDS: Insulin LISPRO 300 UNITS/3 ML VIAL SQ SCH ×6 (00:25→21:47)
[2016-12-04] MEDS: *HR* LORazepam 2 MG/ML VIAL IVP PRN (03:06)
[2016-12-04] MEDS: FentaNYL (PF) 3,000 MCG in 0.9 % Sodium Chloride 240 ML IVC SCH (03:06)
[2016-12-04 04:15] LABS: Basophils % 0.5 %; Eosinophils # 0.1 K/mcL (0.0-0.6); Eosinophils % 1.5 %; Hematocrit 37.7 % (37.5-50.1); Hemoglobin 11.9 g/dL (12.9-16.9); Immature Granulocytes % 0.4 % (0-4); Lymphocytes # 0.8 K/mcL (0.6-4.6); Lymphocytes % 15.3 %; Mean Corpuscular HGB Conc 31.6 g/dL (31.6-35.5); Mean Corpuscular Hemoglobin 27.7 pg (28.0-33.3); Mean Corpuscular Volume 87.7 fL (83.0-100.0); Mean Platelet Volume 10.8 fL (9.4-12.4); Monocytes % 18.6 %; Neutrophils # 3.5 K/mcL (1.6-8.9); Platelet Count 170 K/mcL (140-400); Red Cell Distribution Width 18.9 % (11.5-14.5); Segmented Neutrophils % 63.7 %
[2016-12-04 04:17] LABS: ABG Base Excess 0.1 mEq/L (-2.0 to 3.0); ABG HCO3 24.7 mEQ/L (21-27); ABG Oxygen Saturation 96 % (95-98); ABG PCO2 39 mmHg (35-45); ABG PH 7.41 pH Units (7.32-7.45); ABG PO2 85 mmHg (85-104); ABG TCO2 25.9 mEq/L (20-26); Blood Gas FiO2 30 %; Blood Gas PEEP 8 cm H2O; Blood Gas Respiration Rate 20; Blood Gas VT 500 cc
[2016-12-04] MEDS ORDERED: *HR* Labetalol 20 MG/4 ML SYRINGE IVP PRN (04:18)
[2016-12-04] MEDS: Levalbuterol Neb 0.63 MG/3 ML IH SCH ×5 (04:29→21:19)
[2016-12-04] MEDS: Ipratropium Neb 0.5 MG NEBULIZER IH SCH ×5 (04:29→21:19)
[2016-12-04 04:33] LABS: INR 4.3
[2016-12-04 04:35] LABS: Prothrombin Time 48.9 Seconds (9.4-12.1)
[2016-12-04 04:36] LABS: Calcium 9.7 mg/dL (8.6-10.8); Magnesium 2.1 mg/dL (1.6-2.6)
[2016-12-04 05:08] LABS: Anisocytosis 1+ (Not Present); Macrocytosis Present (Not Present); Microcytosis Present (Not Present); Platelet Estimate Normal (Normal)
[2016-12-04] MEDS: Budesonide/Formoterol 160/4.5 MDI IH SCH ×2 (09:15→21:19)
--- NOTE | 2016-12-04 09:17 | Nephrology Progress Note ---
Date of Encounter: 12/04/16 Time of Encounter: 08:50 - Assessment and Plan (1) End stage renal disease on dialysis Current Visit: Yes Status: Chronic Hypercapneic respratory failure. HD today, keeping MWF schedule. Subjective Principal diagnosis: aflutter with RVR Interval history: Intubated, mild sedation. FiO2 30, peep 5. Failed CPAP today Objective - Vital Signs Vital signs: Vital Signs Temp Pulse Resp BP Pulse Ox 12/04/16 09:11 97.7 F 12/04/16 09:00 91 20 138/94 100 12/04/16 07:57 97.7 F 12/04/16 07:24 101 12/04/16 07:22 101 20 146/81 100 12/04/16 07:00 101 20 146/81 100 12/04/16 06:00 102 20 93/58 98 12/04/16 05:36 20 157/116 100 12/04/16 05:00 98 20 176/115 100 12/04/16 04:55 98.3 F 12/04/16 04:30 20 171/116 100 12/04/16 04:00 90 20 167/107 100 12/04/16 03:15 92 12/04/16 03:00 86 20 140/101 100 12/04/16 02:23 20 102/58 100 12/04/16 02:00 94 20 102/58 98 12/04/16 01:00 90 20 138/86 98 12/04/16 00:00 98.3 F 97 20 147/91 99 12/03/16 23:30 94 12/03/16 23:00 94 20 139/92 100 12/03/16 22:15 20 129/84 100 12/03/16 22:00 95 20 145/92 99 12/03/16 21:00 85 20 163/109 100 12/03/16 20:51 20 159/102 100 12/03/16 20:33 99 F 12/03/16 20:00 96 20 159/102 100 12/03/16 19:54 91 12/03/16 19:00 91 20 153/100 100 12/03/16 18:29 94 20 153/98 100 12/03/16 17:33 20 152/100 99 12/03/16 17:30 98 20 149/105 100 12/03/16 16:30 95 20 153/100 99 12/03/16 15:40 20 158/105 99 12/03/16 15:30 92 20 158/100 96 12/03/16 14:30 93 20 138/89 94 12/03/16 13:18 20 147/87 96 12/03/16 13:14 86 20 147/87 97 12/03/16 12:41 98.0 F 12/03/16 12:30 94 20 150/96 94 12/03/16 11:30 91 20 118/80 96 12/03/16 11:05 22 112/96 93 12/03/16 10:20 96 20 125/88 95 12/03/16 09:30 87 20 130/92 96 12/03/16 09:15 20 96 Intake and Output 12/03/16 12/04/16 12/04/16 23:59 07:59 15:59 Intake Total 660 / 660 375 / 375 Output Total 0 / 0 Balance 660 / 660 375 / 375 Intake: IV Fluids 500 / 500 375 / 375 PRECEDEX 400 mcg In 100 200 / 200 206 / 206 ml @ 0.2 MCG/KG/HR 6.425 mls/hr IVC .[id number] [facility] Rx#:[id number] FentaNYL (PF) 3,000 MCG 300 / 300 169 / 169 In 0.9 % Sodium Chloride 240 ML @ 100 MCG/HR 10 mls/hr IVC [facility] Rx#: [id number] Oral 0 / 0 Free Water 160 / 160 Output: Urine 0 / 0 Other: Weight 104.3 kg Blood Glucose* 107 109 Patient Weight 12/04/16 23:59 Weight 104.3 kg - General Appearance General appearance: Present: well-developed, well-nourished, appears started age EENT: Present: mucous membranes moist Neck: Present: no JVD Respiratory: Present: course breath sounds, rhonchi Cardiology: Present: no edema, irregular rhythm Gastrointestinal: Present: hypoactive bowel sounds, no tenderness Integumentary: Present: warm and dry - Lab 12/04/16 04:04 12/04/16 04:04 Most recent lab results ABG pH 7.41 pH Units (7.32-7.45) 12/04/16 04:09 ABG pCO2 39 mmHg (35-45) 12/04/16 04:09 ABG pO2 85 mmHg (85-104) 12/04/16 04:09 ABG HCO3 24.7 mEQ/L (21-27) 12/04/16 04:09 ABG O2 Saturation 96 % (95-98) 12/04/16 04:09 Calcium 9.7 mg/dL (8.6-10.8) 12/04/16 04:04 Magnesium 2.1 mg/dL (1.6-2.6) 12/04/16 04:04 - VTE Reasons for not Prescribing Prophylaxis: Not indicated-Anticoagulated or INR therapeutic Consult Discharge Plan - Plan Referrals: Arthur Pozo MD [Primary Care Provider] - 12/01/16 9:45 am (Please follow up as schedule..)
--- NOTE | 2016-12-04 09:20 | Pulmonology Progress Note ---
<Ruma Hurtado - Last Filed: 12/04/16 12:36> Date of Encounter: 12/04/16 Time of Encounter: 09:20 Assessment and Plan (1) Acute on chronic respiratory failure with hypoxia and hypercapnia Current Visit: Yes Status: Acute Patient's end-stage renal disease. We have stopped sedation. He is still intubated and on the ventilator. He has failed the CPAP trial several times. We will continue to try today to build lung volumes. Has a history of noncompliance with medical treatment. Plan: Continue dialysis per nephrology. Decrease sedation as tolerated. CPAP trial Continue midodrine. Continue amiodarone by mouth for A. fib. Coumadin per pharmacy dosing for A. fib. 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 We will continue CPAP trials daily. He has failed in several times as He became apneic. He is alert and off of sedation at this time. He is moving all 4 extremities. He does give a thumbs up with both hands. We will continue dialysis today. We will CPAP as tolerated to help build lung volumes. Objective PUL Vital signs: Last Vital Signs Temp 97.7 F 12/04/16 09:11 Pulse 91 12/04/16 09:00 Resp 20 12/04/16 09:00 BP 138/94 12/04/16 09:00 Pulse Ox 100 12/04/16 09:00 General appearance: no acute distress, alert Eyes: nonicteric ENT: oropharynx moist Neck: supple Effort: normal Auscultation: bilateral: rales Cardiovascular: irregular rhythm Gastrointestinal: normoactive bowel sounds, soft, non-tender, non-distended Integumentary: other (Decubitus ulcer to buttocks.) Extremities: no cyanosis, no edema, pink and warm, pulses normal Musculoskeletal: no deformities Gait: normal posture non-focal exam Ventilator Settings Ventilator Settings: Ventilator Settings, Last 8 Hours Ventilator Mode A/C Ventilator Mode A/C Ventilator Mode A/C Ventilator Mode A/C Ventilator Mode A/C Ventilator Mode A/C Ventilator Mode A/C Ventilator Mode A/C Ventilator Mode A/C Ventilator Mode A/C Ventilator Tidal Volume 500 Setting Ventilator Tidal Volume 500 Setting Ventilator Tidal Volume 500 Setting Ventilator Tidal Volume 500 Setting Ventilator Tidal Volume 500 Setting Ventilator Tidal Volume 500 Setting Ventilator Tidal Volume 500 Setting Ventilator Tidal Volume 500 Setting Ventilator Tidal Volume 500 Setting Ventilator Respiratory Rate 20 Setting Ventilator Respiratory Rate 20 Setting Ventilator Respiratory Rate 20 Setting Ventilator Respiratory Rate 20 Setting Ventilator Respiratory Rate 20 Setting Ventilator Respiratory Rate 20 Setting Ventilator Respiratory Rate 20 Setting Ventilator Respiratory Rate 20 Setting Ventilator Respiratory Rate 20 Setting Actual Respiratory Rate 20 Actual Respiratory Rate 20 Actual Respiratory Rate 22 Actual Respiratory Rate 20 Actual Respiratory Rate 20 Actual Respiratory Rate 20 Actual Respiratory Rate 20 Actual Respiratory Rate 20 Actual Respiratory Rate 20 Positive End Expiratory 8 Pressure Positive End Expiratory 8 Pressure Positive End Expiratory 8 Pressure Positive End Expiratory 8 Pressure Positive End Expiratory 8 Pressure Positive End Expiratory 8 Pressure Positive End Expiratory 8 Pressure Positive End Expiratory 8 Pressure Positive End Expiratory 8 Pressure Positive End Expiratory 8 Pressure Peak Inspiratory Airway 33 Pressure Peak Inspiratory Airway 34 Pressure Peak Inspiratory Airway 13 Pressure Peak Inspiratory Airway 33 Pressure Peak Inspiratory Airway 38 Pressure Peak Inspiratory Airway 38 Pressure Peak Inspiratory Airway 36 Pressure Peak Inspiratory Airway 40 Pressure Peak Inspiratory Airway 37 Pressure Results - Laboratory Findings CBC and BMP: 12/04/16 04:04 12/04/16 04:04 ABG ABG pH 7.41 pH Units (7.32-7.45) 12/04/16 04:09 ABG pCO2 39 mmHg (35-45) 12/04/16 04:09 ABG pO2 85 mmHg (85-104) 12/04/16 04:09 ABG O2 Saturation 96 % (95-98) 12/04/16 04:09 PT/INR, D-dimer PT 48.9 Seconds (9.4-12.1) H* 12/04/16 04:04 Abnormal lab findings: Abnormal lab results Hgb 11.9 g/dL (12.9-16.9) L 12/04/16 04:04 MCH 27.7 pg (28.0-33.3) L 12/04/16 04:04 RDW 18.9 % (11.5-14.5) H 12/04/16 04:04 Nucleated RBCs/100 WBC 0.5 /100 WBC (0) H 11/20/16 00:57 Immature Plt Fraction 9.2 % (1.1-6.1) H 12/01/16 08:35 Polychromasia 1+ (Not Present) A 11/26/16 05:51 Hypochromasia Present (Not Present) A 11/26/16 05:51 Basophilic Stippling 1+ (Not Present) A 11/25/16 07:02 Anisocytosis 1+ (Not Present) A 12/04/16 04:04 Microcytosis Present (Not Present) A 12/04/16 04:04 Macrocytosis Present (Not Present) A 12/04/16 04:04 PT 48.9 Seconds (9.4-12.1) H* 12/04/16 04:04 Chloride 97 mEq/L (98-109) L 12/04/16 04:04 BUN 47 mg/dL (8-26) H D 12/04/16 04:04 Creatinine 8.27 mg/dL (0.72-1.25) H 12/04/16 04:04 Est GFR ( Amer) 9 (> 60) L 12/04/16 04:04 Est GFR (Non-Af Amer) 7 (> 60) L 12/04/16 04:04 Glucose 114 mg/dL (70-99) H 12/04/16 04:04 POC Glucose 109 (58-89) H 12/04/16 07:55 Hemoglobin A1c 7.1 % (-5.6) H 11/22/16 05:52 Calculated Osmolality 301 (280-300) H 12/04/16 04:04 AST 68 Units/L (5-34) H 12/01/16 08:35 Alkaline Phosphatase 498 Units/L (38-126) H 12/01/16 08:35 Troponin I 0.04 ng/mL (0-0.03) H* 11/30/16 15:09 B-Natriuretic Peptide 844 pg/mL (0-100) H 11/19/16 03:43 Albumin 2.4 g/dL (3.5-5.0) L 12/01/16 08:35 Globulin 4.3 g/dL (2.4-3.5) H 12/01/16 08:35 Albumin/Globulin Ratio 0.6 (1.1-2.2) L 12/01/16 08:35 - Microbiology Findings Microbiology Findings: Microbiology, Last 48 Hours 11/30/16 15:15 Urine Culture - Final Urine,Catheterized Enterococcus faecalis 11/30/16 15:09 Blood Culture - Preliminary Central Venous Catheter No growth. - Clinical Findings Intake & Output: Intake & Output 12/03/16 12/04/16 12/04/16 23:59 07:59 15:59 Intake Total 660 / 660 375 / 375 Output Total 0 / 0 Balance 660 / 660 375 / 375 Weight 104.3 kg - VTE Reasons for not Prescribing Prophylaxis: Not indicated-Anticoagulated or INR therapeutic Consult Discharge Plan - Plan Referrals: Arthur Pozo MD [Primary Care Provider] - 12/01/16 9:45 am (Please follow up as schedule..) <Alexi Gaffney W - Last Filed: 12/04/16 13:45> Date of Encounter: 12/04/16 Objective PUL Vital signs: Last Vital Signs Temp 98.4 F 12/04/16 11:47 Pulse 92 12/04/16 11:12 Resp 24 12/04/16 11:40 BP 86/52 12/04/16 11:40 Pulse Ox 100 12/04/16 11:40 Ventilator Settings Ventilator Settings: Ventilator Settings, Last 8 Hours Ventilator Mode A/C Ventilator Mode A/C Ventilator Mode A/C Ventilator Mode A/C Ventilator Mode A/C Ventilator Tidal Volume 500 Setting Ventilator Tidal Volume 500 Setting Ventilator Tidal Volume 500 Setting Ventilator Tidal Volume 500 Setting Ventilator Tidal Volume 500 Setting Ventilator Respiratory Rate 20 Setting Ventilator Respiratory Rate 20 Setting Ventilator Respiratory Rate 20 Setting Ventilator Respiratory Rate 20 Setting Ventilator Respiratory Rate 20 Setting Actual Respiratory Rate 24 Actual Respiratory Rate 21 Actual Respiratory Rate 20 Actual Respiratory Rate 20 Actual Respiratory Rate 20 Positive End Expiratory 8 Pressure Positive End Expiratory 8 Pressure Positive End Expiratory 8 Pressure Positive End Expiratory 8 Pressure Positive End Expiratory 8 Pressure Peak Inspiratory Airway 30 Pressure Peak Inspiratory Airway 36 Pressure Peak Inspiratory Airway 33 Pressure Peak Inspiratory Airway 33 Pressure Peak Inspiratory Airway 34 Pressure Results - Laboratory Findings CBC and BMP: 12/04/16 04:04 12/04/16 04:04 ABG ABG pH 7.41 pH Units (7.32-7.45) 12/04/16 04:09 ABG pCO2 39 mmHg (35-45) 12/04/16 04:09 ABG pO2 85 mmHg (85-104) 12/04/16 04:09 ABG O2 Saturation 96 % (95-98) 12/04/16 04:09 PT/INR, D-dimer PT 48.9 Seconds (9.4-12.1) H* 12/04/16 04:04 Abnormal lab findings: Abnormal lab results Hgb 11.9 g/dL (12.9-16.9) L 12/04/16 04:04 MCH 27.7 pg (28.0-33.3) L 12/04/16 04:04 RDW 18.9 % (11.5-14.5) H 12/04/16 04:04 Nucleated RBCs/100 WBC 0.5 /100 WBC (0) H 11/20/16 00:57 Immature Plt Fraction 9.2 % (1.1-6.1) H 12/01/16 08:35 Polychromasia 1+ (Not Present) A 11/26/16 05:51 Hypochromasia Present (Not Present) A 11/26/16 05:51 Basophilic Stippling 1+ (Not Present) A 11/25/16 07:02 Anisocytosis 1+ (Not Present) A 12/04/16 04:04 Microcytosis Present (Not Present) A 12/04/16 04:04 Macrocytosis Present (Not Present) A 12/04/16 04:04 PT 48.9 Seconds (9.4-12.1) H* 12/04/16 04:04 Chloride 97 mEq/L (98-109) L 12/04/16 04:04 BUN 47 mg/dL (8-26) H D 12/04/16 04:04 Creatinine 8.27 mg/dL (0.72-1.25) H 12/04/16 04:04 Est GFR ( Amer) 9 (> 60) L 12/04/16 04:04 Est GFR (Non-Af Amer) 7 (> 60) L 12/04/16 04:04 Glucose 114 mg/dL (70-99) H 12/04/16 04:04 Hemoglobin A1c 7.1 % (-5.6) H 11/22/16 05:52 Calculated Osmolality 301 (280-300) H 12/04/16 04:04 AST 68 Units/L (5-34) H 12/01/16 08:35 Alkaline Phosphatase 498 Units/L (38-126) H 12/01/16 08:35 Troponin I 0.04 ng/mL (0-0.03) H* 11/30/16 15:09 B-Natriuretic Peptide 844 pg/mL (0-100) H 11/19/16 03:43 Albumin 2.4 g/dL (3.5-5.0) L 12/01/16 08:35 Globulin 4.3 g/dL (2.4-3.5) H 12/01/16 08:35 Albumin/Globulin Ratio 0.6 (1.1-2.2) L 12/01/16 08:35 - Microbiology Findings Microbiology Findings: Microbiology, Last 48 Hours 11/30/16 15:15 Urine Culture - Final Urine,Catheterized Enterococcus faecalis - Clinical Findings Intake & Output: Intake & Output 12/03/16 12/04/16 12/04/16 23:59 07:59 15:59 Intake Total 660 / 660 375 / 375 190 / 190 Output Total 0 / 0 Balance 660 / 660 375 / 375 190 / 190 Weight 104.3 kg - Attending Attestation I examined this patient and my medical decision-making was reviewed with the Resident Physician. I agree with the documented findings, disposition and treatment plan as described except to the extent set forth below. Patient seen and examined at bedside Labs, radiology, chart personally reviewed. All lines examined without evidence of infection. Management was reviewed during multidisciplinary critical care rounds. Neuropsych: Awake and alert following commands continue Precedex for agitation Pulm: Normal limits support CPAP trial today will need continued fluid removal for pulmonary edema; ventilator bundle to prevent VAP instituted Cards: Chronic systolic heart failure blood pressure elevated yesterday stopping Midodrine continue amiodarone for A. fib which is rate controlled FEN-GI: Enteral nutrition has been started continue GI prophylaxis Renal: ESRD plan for dialysis today with volume removal replace electrolytes per protocol nephrology following ID: No active issues Heme/Onc: Modestly supratherapeutic INR for primary stroke prevention with underlying atrial fibrillation holding Coumadin pharmacy helping us dosed this medication Endo: Glucose monitored Integ/MSK: Skin care per routine ICU protocol to prevent skin ulcers CODE: Full code
[2016-12-04] MEDS: Pantoprazole 40 MG VIAL IVP SCH (09:40)
[2016-12-04] MEDS: Calcium Acetate 667 MG CAPSULE PO SCH ×3 (09:40→17:27)
[2016-12-04] MEDS: Docusate Oral Soln 100 MG/10 ML UDC GTUBE SCH ×2 (09:40→21:45)
[2016-12-04] MEDS: Chlorhexidine Rinse 15 ML MOUTHWASH MM SCH ×2 (09:40→21:44)
[2016-12-04] MEDS: Sennosides 8.6 MG TABLET PO SCH ×2 (09:41→21:46)
[2016-12-04] MEDS: Nicotine 14 MG PATCH.TD24 TD SCH (09:41)
[2016-12-04] MEDS: *HR* Amiodarone 200 MG TABLET PO SCH (09:41)
[2016-12-04] MEDS ORDERED: 0.9 % Sodium Chloride 250 ML IVC PRN (11:58)
[2016-12-04] MEDS: Norepinephrine 4 MG in D5% in Water 250 ML IVC SCH (14:01)
[2016-12-04] MEDS: Pregabalin 50 MG CAPSULE PO SCH (21:45)
[2016-12-04] MEDS ORDERED: 0.9 % Sodium Chloride 2,000 ML ONE (22:15)
[2016-12-05] MEDS: Insulin LISPRO 300 UNITS/3 ML VIAL SQ SCH ×6 (00:46→21:02)
[2016-12-05] MEDS: *HR* LORazepam 2 MG/ML VIAL IVP PRN (00:52)
[2016-12-05] MEDS: Dexmedetomidine HCl 400 MCG/100 ML MLS IVC SCH ×6 (00:58→21:28)
[2016-12-05 04:42] LABS: Basophils % 0.2 %; Eosinophils # 0.1 K/mcL (0.0-0.6); Eosinophils % 1.4 %; Hematocrit 37.5 % (37.5-50.1); Hemoglobin 11.8 g/dL (12.9-16.9); Immature Granulocytes % 0.2 % (0-4); Lymphocytes # 0.9 K/mcL (0.6-4.6); Lymphocytes % 16.2 %; Mean Corpuscular HGB Conc 31.5 g/dL (31.6-35.5); Mean Corpuscular Volume 89.1 fL (83.0-100.0); Mean Platelet Volume 10.7 fL (9.4-12.4); Monocytes # 0.9 K/mcL (0.0-1.3); Monocytes % 15.3 %; Neutrophils # 3.7 K/mcL (1.6-8.9); Platelet Count 150 K/mcL (140-400); Red Blood Count 4.21 M/mcL (4.19-5.50); Red Cell Distribution Width 18.8 % (11.5-14.5); Segmented Neutrophils % 66.7 %
[2016-12-05 04:47] LABS: INR 4.1
[2016-12-05 04:51] LABS: Prothrombin Time 46.3 Seconds (9.4-12.1)
[2016-12-05 04:53] LABS: Calcium 9.8 mg/dL (8.6-10.8); Potassium 4.2 mEq/L (3.5-4.5)
[2016-12-05] MEDS: Ipratropium Neb 0.5 MG NEBULIZER IH SCH ×4 (05:53→21:42)
[2016-12-05] MEDS: Levalbuterol Neb 0.63 MG/3 ML IH SCH ×4 (05:53→21:42)
[2016-12-05] MEDS: Budesonide/Formoterol 160/4.5 MDI IH SCH ×2 (07:36→21:42)
[2016-12-05] MEDS: FentaNYL (PF) 3,000 MCG in 0.9 % Sodium Chloride 240 ML IVC SCH ×2 (08:09→13:45)
[2016-12-05] MEDS: Calcium Acetate 667 MG CAPSULE PO SCH ×3 (08:10→16:56)
--- NOTE | 2016-12-05 08:45 | Nephrology Progress Note ---
Date of Encounter: 12/05/16 Time of Encounter: 08:25 - Assessment and Plan (1) End stage renal disease on dialysis Current Visit: Yes Status: Chronic Hypercapneic respratory failure. No HD today. Subjective Principal diagnosis: aflutter with RVR Interval history: Intubated. FiO2 30, peep 5. Failed several attempts at CPAP Objective - Vital Signs Vital signs: Vital Signs Temp Pulse Resp BP Pulse Ox 12/05/16 08:31 20 123/77 98 12/05/16 08:03 94 12/05/16 08:00 99.5 F 100 20 123/77 100 12/05/16 07:00 93 20 121/78 98 12/05/16 06:00 96 20 141/86 98 12/05/16 05:12 20 113/65 97 12/05/16 05:00 109 20 113/65 98 12/05/16 04:00 118 20 127/80 99 12/05/16 03:00 118 125/80 99 12/05/16 02:00 110 20 89/64 99 12/05/16 01:42 20 90/34 97 12/05/16 01:00 153 24 96/44 94 12/05/16 00:00 142 21 103/58 98 12/04/16 23:45 98.6 F 12/04/16 23:32 20 185/93 95 12/04/16 23:00 126 23 91/58 96 12/04/16 22:00 149 23 98/61 95 12/04/16 21:20 27 94/65 96 12/04/16 21:00 154 25 94/65 98 12/04/16 20:00 124 36 96/81 98 12/04/16 19:33 24 129/105 99 12/04/16 19:15 98.6 F 18 104/57 12/04/16 19:05 98.6 F 100/67 12/04/16 18:50 102/62 12/04/16 18:35 112/89 12/04/16 18:33 113/58 12/04/16 18:20 113/58 12/04/16 18:05 123/70 12/04/16 18:00 144 25 102/69 100 12/04/16 17:50 126/61 12/04/16 17:35 112/75 12/04/16 17:20 118/77 12/04/16 17:05 21 127/82 100 12/04/16 17:00 121 22 125/71 98 12/04/16 16:50 101/71 12/04/16 16:35 129/72 12/04/16 16:20 131/93 12/04/16 16:06 98.5 F 91 12/04/16 16:05 128/84 12/04/16 16:00 128 21 132/73 98 12/04/16 15:50 131/76 12/04/16 15:48 98.5 F 12/04/16 15:45 21 105/86 99 12/04/16 15:35 98.5 F 16 132/73 12/04/16 15:00 120 22 94/81 98 12/04/16 14:00 123 21 100/84 98 12/04/16 13:59 98.4 F 12/04/16 13:00 91 22 105/86 93 12/04/16 11:47 98.4 F 12/04/16 11:40 24 86/52 100 12/04/16 11:12 92 25 120/82 95 12/04/16 10:00 92 25 120/82 95 12/04/16 09:15 21 135/96 99 12/04/16 09:11 97.7 F 12/04/16 09:00 91 20 138/94 100 Intake and Output 12/04/16 12/05/16 12/05/16 23:59 07:59 15:59 Intake Total 280 / 280 Output Total 4800 / 4800 0 / 0 Balance -4800 / -4800 280 / 280 0 / 0 Intake: IV Fluids 280 / 280 PRECEDEX 400 mcg In 100 280 / 280 ml @ 0.2 MCG/KG/HR 6.425 mls/hr IVC .[id number] [facility] Rx#:[id number] Oral 0 / 0 Output: Urine 0 / 0 0 / 0 Total Dialysis (HD) 3600 / 3600 Output Gastric Drainage 1200 / 1200 Other: Stool Size Moderate Stool Consistency soft formed Stool Color Brown # Bowel Movements 2 Weight 101.5 kg Blood Glucose* 87 110 98 Hemodialysis Net Fluid 3000 Removed (mL) Patient Weight 12/05/16 23:59 Weight 101.5 kg - General Appearance General appearance: Present: well-developed, well-nourished, appears started age , obese EENT: Present: mucous membranes moist Neck: Present: no JVD Respiratory: Present: rhonchi Cardiology: Present: no edema, irregular rhythm Gastrointestinal: Present: hypoactive bowel sounds Integumentary: Present: warm and dry - Lab 12/05/16 04:15 12/05/16 04:15 Most recent lab results ABG pH 7.41 pH Units (7.32-7.45) 12/04/16 04:09 ABG pCO2 39 mmHg (35-45) 12/04/16 04:09 ABG pO2 85 mmHg (85-104) 12/04/16 04:09 ABG HCO3 24.7 mEQ/L (21-27) 12/04/16 04:09 ABG O2 Saturation 96 % (95-98) 12/04/16 04:09 Calcium 9.8 mg/dL (8.6-10.8) 12/05/16 04:15 Magnesium 2.0 mg/dL (1.6-2.6) 12/05/16 04:15 - VTE Reasons for not Prescribing Prophylaxis: Not indicated-Anticoagulated or INR therapeutic Consult Discharge Plan - Plan Referrals: Arthur Pozo MD [Primary Care Provider] - 12/01/16 9:45 am (Please follow up as schedule..)
[2016-12-05] MEDS: Sennosides 8.6 MG TABLET PO SCH ×2 (08:56→21:01)
[2016-12-05] MEDS: Docusate Oral Soln 100 MG/10 ML UDC GTUBE SCH ×2 (08:56→21:01)
[2016-12-05] MEDS: Nicotine 14 MG PATCH.TD24 TD SCH (09:02)
[2016-12-05] MEDS: Chlorhexidine Rinse 15 ML MOUTHWASH MM SCH ×2 (09:03→21:01)
[2016-12-05] MEDS: Pregabalin 50 MG CAPSULE PO SCH ×2 (09:03→21:01)
[2016-12-05] MEDS: Pantoprazole 40 MG VIAL IVP SCH (09:03)
[2016-12-05] MEDS: *HR* Amiodarone 200 MG TABLET PO SCH (09:03)
--- NOTE | 2016-12-05 10:20 | Pulmonology Progress Note ---
Date of Encounter: 12/05/16 Time of Encounter: 10:17 Assessment and Plan (1) Acute on chronic respiratory failure with hypoxia and hypercapnia Current Visit: Yes Status: Acute Patient seen and examined at bedside Labs, radiology, chart personally reviewed. All lines examined without evidence of infection. Management was reviewed during multidisciplinary critical care rounds. Neuropsych: Awake and alert can add low-dose infusion of precedex as needed for agitation Pulm: Acute on chronic hypoxic hypercapnic respiratory failure which is multifactorial including pulmonary edema COPD obstructive sleep apnea obesity hypoventilation syndrome he is currently intubated but only requiring minimal ventilatory support for acceptable oxygenation and ventilation CPAP trial today likely could be extubated after volume removal with dialysis Cards: Chronic systolic heart failure volume removal plan today blood pressure is well-controlled atrial fibrillation which is rate controlled continue amiodarone FEN-GI: He is receiving enteral nutrition continue GI prophylaxis Renal: ESRD plan for Green removal renal replacement therapy today we are replacing his electrolytes per protocol ID: Does not appear to have active infection continue to monitor Heme/Onc: Continue heparin for primary stroke prevention with underlying atrial fibrillation today his INR is supratherapeutic (mildly) and we are holding dose of warfarin. Pharmacy is helping to adjust his required dose. Endo: His glucoses monitored continue insulin coverage Integ/MSK: Skin care per routine ICU protocol is pink administered CODE: Full code (2) Fluid overload Current Visit: No Status: Acute Qualifiers: Hypervolemia type: unspecified Qualified Code(s): E87.70 - Fluid overload, unspecified (3) Diabetes mellitus type 2, uncontrolled, with complications Current Visit: Yes Status: Chronic Qualifiers: Diabetes mellitus roasterman insulin use: with chcf use Qualified Code( s): E11.8 - Type 2 diabetes mellitus with unspecified complications; E11.65 - Type 2 diabetes mellitus with hyperglycemia; Z79.4 - roasterman (current) use of insulin (4) Nonischemic cardiomyopathy Current Visit: No Status: Chronic (5) End stage renal disease on dialysis Current Visit: Yes Status: Chronic (6) Systolic heart failure, chronic Current Visit: Yes Status: Chronic (7) Goals of care, counseling/discussion Current Visit: No Status: Acute (8) COPD (chronic obstructive pulmonary disease) Current Visit: No Status: Chronic Qualifiers: COPD type: unspecified COPD Qualified Code(s): J44.9 - Chronic obstructive pulmonary disease, unspecified (9) Tobacco abuse Current Visit: No Status: Chronic (10) ZAINAB (obstructive sleep apnea) Current Visit: Yes Status: Chronic (11) Obesity (BMI 30-39.9) Current Visit: No Status: Chronic Subjective Principal diagnosis: aflutter with RVR Interval history: Mr. Simms is done well overnight he has been weaned off all sedation and is much less anxious and agitated. He remained hemodynamically stable he is requesting liberation from the ventilator and advancement of his diet including lemonade Objective PUL Vital signs: Last Vital Signs Temp 99.5 F 12/05/16 08:00 Pulse 116 12/05/16 09:00 Resp 22 12/05/16 09:27 BP 115/65 12/05/16 09:27 Pulse Ox 97 12/05/16 09:27 General appearance: no acute distress ENT: other (Oral endotracheal tube and and enteric tube noted) Neck: supple Effort: normal Auscultation: bilateral: rales Cardiovascular: irregular rhythm Gastrointestinal: normoactive bowel sounds Extremities: edema normal mental status, non-focal exam mood appropriate Ventilator Settings Ventilator Settings: Ventilator Settings, Last 8 Hours Ventilator Mode CPAP Ventilator Mode A/C Ventilator Mode A/C Ventilator Mode A/C Ventilator Mode A/C Ventilator Mode A/C Ventilator Mode A/C Ventilator Mode A/C Ventilator Mode A/C Ventilator Mode A/C Ventilator Tidal Volume 500 Setting Ventilator Tidal Volume 500 Setting Ventilator Tidal Volume 500 Setting Ventilator Tidal Volume 500 Setting Ventilator Tidal Volume 500 Setting Ventilator Tidal Volume 500 Setting Ventilator Tidal Volume 500 Setting Ventilator Tidal Volume 500 Setting Ventilator Tidal Volume 500 Setting Ventilator Respiratory Rate 12 Setting Ventilator Respiratory Rate 20 Setting Ventilator Respiratory Rate 12 Setting Ventilator Respiratory Rate 20 Setting Ventilator Respiratory Rate 20 Setting Ventilator Respiratory Rate 20 Setting Ventilator Respiratory Rate 20 Setting Ventilator Respiratory Rate 20 Setting Ventilator Respiratory Rate 20 Setting Actual Respiratory Rate 22 Actual Respiratory Rate 18 Actual Respiratory Rate 20 Actual Respiratory Rate 20 Actual Respiratory Rate 20 Actual Respiratory Rate 20 Actual Respiratory Rate 20 Actual Respiratory Rate 20 Actual Respiratory Rate 20 Actual Respiratory Rate 20 Positive End Expiratory 5 Pressure Positive End Expiratory 8 Pressure Positive End Expiratory 8 Pressure Positive End Expiratory 8 Pressure Positive End Expiratory 8 Pressure Positive End Expiratory 8 Pressure Positive End Expiratory 8 Pressure Positive End Expiratory 8 Pressure Positive End Expiratory 8 Pressure Positive End Expiratory 8 Pressure Peak Inspiratory Airway 11 Pressure Peak Inspiratory Airway 28 Pressure Peak Inspiratory Airway 28 Pressure Peak Inspiratory Airway 28 Pressure Peak Inspiratory Airway 28 Pressure Peak Inspiratory Airway 28 Pressure Peak Inspiratory Airway 28 Pressure Results - Laboratory Findings CBC and BMP: 12/05/16 04:15 12/05/16 04:15 ABG ABG pH 7.41 pH Units (7.32-7.45) 12/04/16 04:09 ABG pCO2 39 mmHg (35-45) 12/04/16 04:09 ABG pO2 85 mmHg (85-104) 12/04/16 04:09 ABG O2 Saturation 96 % (95-98) 12/04/16 04:09 PT/INR, D-dimer PT 46.3 Seconds (9.4-12.1) H* 12/05/16 04:15 Abnormal lab findings: Abnormal lab results Hgb 11.8 g/dL (12.9-16.9) L 12/05/16 04:15 MCHC 31.5 g/dL (31.6-35.5) L 12/05/16 04:15 RDW 18.8 % (11.5-14.5) H 12/05/16 04:15 Nucleated RBCs/100 WBC 0.5 /100 WBC (0) H 11/20/16 00:57 Immature Plt Fraction 9.2 % (1.1-6.1) H 12/01/16 08:35 Polychromasia 1+ (Not Present) A 11/26/16 05:51 Hypochromasia Present (Not Present) A 11/26/16 05:51 Basophilic Stippling 1+ (Not Present) A 11/25/16 07:02 Anisocytosis 1+ (Not Present) A 12/04/16 04:04 Microcytosis Present (Not Present) A 12/04/16 04:04 Macrocytosis Present (Not Present) A 12/04/16 04:04 PT 46.3 Seconds (9.4-12.1) H* 12/05/16 04:15 BUN 31 mg/dL (8-26) H D 12/05/16 04:15 Creatinine 6.59 mg/dL (0.72-1.25) H 12/05/16 04:15 Est GFR ( Amer) 11 (> 60) L 12/05/16 04:15 Est GFR (Non-Af Amer) 9 (> 60) L 12/05/16 04:15 BUN/Creatinine Ratio 5 (6-26) L 12/05/16 04:15 Glucose 106 mg/dL (70-99) H 12/05/16 04:15 POC Glucose 98 (58-89) H 12/05/16 07:45 Hemoglobin A1c 7.1 % (-5.6) H 11/22/16 05:52 AST 68 Units/L (5-34) H 12/01/16 08:35 Alkaline Phosphatase 498 Units/L (38-126) H 12/01/16 08:35 Troponin I 0.04 ng/mL (0-0.03) H* 11/30/16 15:09 B-Natriuretic Peptide 844 pg/mL (0-100) H 11/19/16 03:43 Albumin 2.4 g/dL (3.5-5.0) L 12/01/16 08:35 Globulin 4.3 g/dL (2.4-3.5) H 12/01/16 08:35 Albumin/Globulin Ratio 0.6 (1.1-2.2) L 12/01/16 08:35 - Clinical Findings Intake & Output: Intake & Output 12/04/16 12/05/16 12/05/16 23:59 07:59 15:59 Intake Total 280 / 280 Output Total 4800 / 4800 0 / 0 Balance -4800 / -4800 280 / 280 0 / 0 Weight 101.5 kg - VTE Reasons for not Prescribing Prophylaxis: Not indicated-Anticoagulated or INR therapeutic Consult Discharge Plan - Plan Referrals: Arthur Pozo MD [Primary Care Provider] - 12/01/16 9:45 am (Please follow up as schedule..)
[2016-12-05] MEDS ORDERED: *HR* Metoprolol 5 MG/5 ML VIAL IVP ONE ×2 (11:03→12:15)
[2016-12-05] MEDS ORDERED: 0.9 % Sodium Chloride 250 ML IVC PRN (12:14)
[2016-12-05] MEDS ORDERED: 0.9 % Sodium Chloride 1,000 ML PRIME SCH (12:15)
[2016-12-05] MEDS: Norepinephrine 4 MG in D5% in Water 250 ML IVC SCH (12:33)
[2016-12-05] MEDS ORDERED: 0.9 % Sodium Chloride 2,000 ML ONE (17:39)
[2016-12-06] MEDS: FentaNYL (PF) 3,000 MCG in 0.9 % Sodium Chloride 240 ML IVC SCH (00:02)
[2016-12-06] MEDS: Insulin LISPRO 300 UNITS/3 ML VIAL SQ SCH ×6 (00:28→20:38)
[2016-12-06] MEDS: Levalbuterol Neb 0.63 MG/3 ML IH SCH ×4 (03:55→21:23)
[2016-12-06] MEDS: Ipratropium Neb 0.5 MG NEBULIZER IH SCH ×4 (03:55→21:23)
[2016-12-06 04:00] LABS: Basophils % 0.7 %; Eosinophils # 0.1 K/mcL (0.0-0.6); Hematocrit 40.1 % (37.5-50.1); Hemoglobin 12.3 g/dL (12.9-16.9); Immature Granulocytes % 0.2 % (0-4); Lymphocytes % 22.4 %; Mean Corpuscular HGB Conc 30.7 g/dL (31.6-35.5); Mean Corpuscular Hemoglobin 27.6 pg (28.0-33.3); Mean Corpuscular Volume 89.9 fL (83.0-100.0); Mean Platelet Volume 11.1 fL (9.4-12.4); Monocytes # 0.9 K/mcL (0.0-1.3); Monocytes % 21.1 %; Neutrophils # 2.3 K/mcL (1.6-8.9); Platelet Count 154 K/mcL (140-400); Red Blood Count 4.46 M/mcL (4.19-5.50); Red Cell Distribution Width 18.6 % (11.5-14.5); Segmented Neutrophils % 52.6 %
[2016-12-06 04:08] LABS: Prothrombin Time 45.1 Seconds (9.4-12.1)
[2016-12-06 04:30] LABS: Anisocytosis 1+ (Not Present); Platelet Estimate Normal (Normal)
[2016-12-06] MEDS: Calcium Acetate 667 MG CAPSULE PO SCH ×3 (07:44→18:27)
--- NOTE | 2016-12-06 07:47 | Pulmonology Progress Note ---
<Ruma Hurtado - Last Filed: 12/06/16 10:22> Date of Encounter: 12/06/16 Time of Encounter: 07:46 Assessment and Plan (1) Acute on chronic respiratory failure with hypoxia and hypercapnia Current Visit: Yes Status: Acute Patient has history of end-stage renal disease. He is noncompliant with his medications or treatments. He has been at the hospital several times for exacerbation of his end-stage renal disease hypotension and shortness of breath. He has been intubated during this stay and extubated and sent to the floor however he was reintubated and sent back to ICU due to hypotension worsening of his respiratory status and mental status. Extubated today. He is on a nasal cannula currently because he is refusing BiPAP. His lung sounds are clear and his heart sounds are normal. His abdomen is soft and nontender. He has no complaints other than this morning he was requesting to be extubated. We will continue with his dialysis and medication regimen while he is here. Plan: Continue dialysis per nephrology. BiPAP as needed Continue midodrine. Continue amiodarone by mouth for A. fib. Coumadin per pharmacy dosing for A. fib. Sliding-scale insulin Protonix for GI prophylaxis (2) End stage renal disease on dialysis Current Visit: Yes Status: Chronic (3) Hx of noncompliance with medical treatment, presenting hazards to health Current Visit: Yes Status: Chronic (4) Diabetes mellitus Current Visit: Yes Status: Chronic Qualifiers: Diabetes mellitus type: type 2 Diabetes mellitus complication status: with kidney complications Diabetes mellitus complication detail: with chronic kidney disease Diabetes mellitus senior care insulin use: unspecified senior care insulin use status Chronic kidney disease stage: on chronic dialysis Qualified Code(s): E11.22 - Type 2 diabetes mellitus with diabetic chronic kidney disease; N18.6 - End stage renal disease; Z99.2 - Dependence on renal dialysis (5) ZAINAB (obstructive sleep apnea) Current Visit: Yes Status: Chronic (6) Atrial fibrillation Current Visit: No Status: Chronic Qualifiers: Atrial fibrillation type: paroxysmal Qualified Code(s): I48.0 - Paroxysmal atrial fibrillation Subjective Principal diagnosis: aflutter with RVR Interval history: No events overnight. He has been communicating since yesterday by writing on a white board and pieces of paper. He is requesting to be extubated. He is alert and appears to be acting appropriately. He has no significant complaints other than wanting to be extubated. Dialysis is being continued. Patient clinically appears to be improving. He does get tachycardic. I have discussed with him to try to remain calm as he has been getting anxious because he wants the tube out. He expresses understanding. Patient did well on a CPAP trial this morning. He met parameters. He was subsequently extubated. He is doing well after this. Patient's edema has cleared. Since he has been on his normal dialysis regimen and receiving his medications he appears to have clinically improved. Objective PUL Vital signs: Last Vital Signs Temp 97.5 F L 12/06/16 07:00 Pulse 123 12/06/16 07:29 Resp 20 12/06/16 07:00 BP 94/50 12/06/16 07:00 Pulse Ox 95 12/06/16 07:00 General appearance: no acute distress, alert, other (Conversing by writing prior to extubation.) Eyes: nonicteric ENT: oropharynx moist Neck: supple Effort: normal Cardiovascular: regular rate and rhythm Gastrointestinal: normoactive bowel sounds, soft, non-tender, non-distended Integumentary: decubitus ulcer Extremities: no cyanosis, no edema, no clubbing, pulses normal, no ischemia or petechiae Musculoskeletal: no deformities Gait: normal posture normal mental status, non-focal exam, pupils equal and round mood appropriate, affect normal Ventilator Settings Ventilator Settings: Ventilator Settings, Last 8 Hours Ventilator Mode CPAP Ventilator Mode A/C Ventilator Mode A/C Ventilator Mode A/C Ventilator Mode A/C Ventilator Mode A/C Ventilator Mode A/C Ventilator Mode A/C Ventilator Mode A/C Ventilator Mode A/C Ventilator Mode A/C Ventilator Tidal Volume 500 Setting Ventilator Tidal Volume 500 Setting Ventilator Tidal Volume 500 Setting Ventilator Tidal Volume 500 Setting Ventilator Tidal Volume 500 Setting Ventilator Tidal Volume 500 Setting Ventilator Tidal Volume 500 Setting Ventilator Tidal Volume 500 Setting Ventilator Tidal Volume 500 Setting Ventilator Tidal Volume 500 Setting Ventilator Respiratory Rate 12 Setting Ventilator Respiratory Rate 12 Setting Ventilator Respiratory Rate 12 Setting Ventilator Respiratory Rate 12 Setting Ventilator Respiratory Rate 12 Setting Ventilator Respiratory Rate 12 Setting Ventilator Respiratory Rate 12 Setting Ventilator Respiratory Rate 12 Setting Ventilator Respiratory Rate 12 Setting Ventilator Respiratory Rate 12 Setting Actual Respiratory Rate 13 Actual Respiratory Rate 13 Actual Respiratory Rate 12 Actual Respiratory Rate 12 Actual Respiratory Rate 12 Actual Respiratory Rate 12 Actual Respiratory Rate 12 Actual Respiratory Rate 12 Actual Respiratory Rate 12 Actual Respiratory Rate 12 Positive End Expiratory 5 Pressure Positive End Expiratory 5 Pressure Positive End Expiratory 5 Pressure Positive End Expiratory 5 Pressure Positive End Expiratory 5 Pressure Positive End Expiratory 5 Pressure Positive End Expiratory 5 Pressure Positive End Expiratory 5 Pressure Positive End Expiratory 5 Pressure Positive End Expiratory 5 Pressure Peak Inspiratory Airway 32 Pressure Peak Inspiratory Airway 32 Pressure Peak Inspiratory Airway 27 Pressure Peak Inspiratory Airway 27 Pressure Peak Inspiratory Airway 29 Pressure Peak Inspiratory Airway 27 Pressure Peak Inspiratory Airway 27 Pressure Peak Inspiratory Airway 27 Pressure Peak Inspiratory Airway 27 Pressure Peak Inspiratory Airway 28 Pressure Results - Laboratory Findings CBC and BMP: 12/06/16 03:40 12/06/16 06:50 ABG ABG pH 7.41 pH Units (7.32-7.45) 12/04/16 04:09 ABG pCO2 39 mmHg (35-45) 12/04/16 04:09 ABG pO2 85 mmHg (85-104) 12/04/16 04:09 ABG O2 Saturation 96 % (95-98) 12/04/16 04:09 PT/INR, D-dimer PT 45.1 Seconds (9.4-12.1) H* 12/06/16 03:40 Abnormal lab findings: Abnormal lab results Hgb 12.3 g/dL (12.9-16.9) L 12/06/16 03:40 MCH 27.6 pg (28.0-33.3) L 12/06/16 03:40 MCHC 30.7 g/dL (31.6-35.5) L 12/06/16 03:40 RDW 18.6 % (11.5-14.5) H 12/06/16 03:40 Nucleated RBCs/100 WBC 0.5 /100 WBC (0) H 11/20/16 00:57 Immature Plt Fraction 9.2 % (1.1-6.1) H 12/01/16 08:35 Polychromasia 1+ (Not Present) A 11/26/16 05:51 Hypochromasia Present (Not Present) A 11/26/16 05:51 Basophilic Stippling 1+ (Not Present) A 11/25/16 07:02 Anisocytosis 1+ (Not Present) A 12/06/16 03:40 Microcytosis Present (Not Present) A 12/04/16 04:04 Macrocytosis Present (Not Present) A 12/04/16 04:04 PT 45.1 Seconds (9.4-12.1) H* 12/06/16 03:40 BUN 31 mg/dL (8-26) H D 12/05/16 04:15 Creatinine 6.59 mg/dL (0.72-1.25) H 12/05/16 04:15 Est GFR ( Amer) 11 (> 60) L 12/05/16 04:15 Est GFR (Non-Af Amer) 9 (> 60) L 12/05/16 04:15 BUN/Creatinine Ratio 5 (6-26) L 12/05/16 04:15 Glucose 106 mg/dL (70-99) H 12/05/16 04:15 POC Glucose 90 (58-89) H 12/06/16 04:38 Hemoglobin A1c 7.1 % (-5.6) H 11/22/16 05:52 AST 68 Units/L (5-34) H 12/01/16 08:35 Alkaline Phosphatase 498 Units/L (38-126) H 12/01/16 08:35 Troponin I 0.04 ng/mL (0-0.03) H* 11/30/16 15:09 B-Natriuretic Peptide 844 pg/mL (0-100) H 11/19/16 03:43 Albumin 2.4 g/dL (3.5-5.0) L 12/01/16 08:35 Globulin 4.3 g/dL (2.4-3.5) H 12/01/16 08:35 Albumin/Globulin Ratio 0.6 (1.1-2.2) L 12/01/16 08:35 - Microbiology Findings Microbiology Findings: Microbiology, Last 48 Hours 11/30/16 15:09 Blood Culture - Final Central Venous Catheter No growth. - Diagnostic Findings Additional studies: KUB X-Ray 11/30/16 13:25 IMPRESSION: Nasogastric tip projecting over the distal body of stomach D/ / Jayy Painter MD / Jayy Painter MD Interpreting Provider: Jayy Painter MD Chest X-Ray 12/05/16 20:27 IMPRESSION: Stable life support system. Persisting left lower lobe infiltrate and small left effusion. Perihilar congestion. D/ / 12/05/2016 21:29:14 Masha Wang MD / bcartann marie Interpreting Provider: Masha Wang MD - Clinical Findings Intake & Output: Intake & Output 12/05/16 12/05/16 12/06/16 15:59 23:59 07:59 Intake Total 825 / 825 202 / 202 448 / 448 Output Total 0 / 0 4600 / 4600 0 / 0 Balance 825 / 825 -4398 / -4398 448 / 448 Weight 100.108 kg - VTE Reasons for not Prescribing Prophylaxis: Not indicated-Anticoagulated or INR therapeutic Consult Discharge Plan - Plan Referrals: Arthur Pozo MD [Primary Care Provider] - 12/01/16 9:45 am (Please follow up as schedule..) <Alexi Gaffney - Last Filed: 12/06/16 11:40> Date of Encounter: 12/06/16 Assessment and Plan (1) Acute on chronic respiratory failure with hypoxia and hypercapnia Current Visit: Yes Status: Acute (2) Fluid overload Current Visit: No Status: Acute Qualifiers: Hypervolemia type: unspecified Qualified Code(s): E87.70 - Fluid overload, unspecified (3) Diabetes mellitus type 2, uncontrolled, with complications Current Visit: Yes Status: Chronic 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 Qualified Code( s): E11.8 - Type 2 diabetes mellitus with unspecified complications; E11.65 - Type 2 diabetes mellitus with hyperglycemia; 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 (4) Nonischemic cardiomyopathy Current Visit: No Status: Chronic (5) End stage renal disease on dialysis Current Visit: Yes Status: Chronic (6) Systolic heart failure, chronic Current Visit: Yes Status: Chronic (7) Goals of care, counseling/discussion Current Visit: No Status: Acute (8) COPD (chronic obstructive pulmonary disease) Current Visit: No Status: Chronic Qualifiers: COPD type: unspecified COPD Qualified Code(s): J44.9 - Chronic obstructive pulmonary disease, unspecified (9) Tobacco abuse Current Visit: No Status: Chronic (10) ZAINAB (obstructive sleep apnea) Current Visit: Yes Status: Chronic (11) Obesity (BMI 30-39.9) Current Visit: No Status: Chronic Objective PUL Vital signs: Last Vital Signs Temp 96.3 F L 12/06/16 08:01 Pulse 128 12/06/16 10:00 Resp 22 12/06/16 10:00 BP 95/70 12/06/16 10:00 Pulse Ox 100 12/06/16 10:00 Ventilator Settings Ventilator Settings: Ventilator Settings, Last 8 Hours Ventilator Mode CPAP Ventilator Mode CPAP Ventilator Mode CPAP Ventilator Mode CPAP Ventilator Mode A/C Ventilator Mode A/C Ventilator Mode A/C Ventilator Mode A/C Ventilator Mode A/C Ventilator Tidal Volume 500 Setting Ventilator Tidal Volume 500 Setting Ventilator Tidal Volume 500 Setting Ventilator Tidal Volume 500 Setting Ventilator Tidal Volume 500 Setting Ventilator Respiratory Rate 12 Setting Ventilator Respiratory Rate 12 Setting Ventilator Respiratory Rate 12 Setting Ventilator Respiratory Rate 12 Setting Ventilator Respiratory Rate 12 Setting Actual Respiratory Rate 25 Actual Respiratory Rate 13 Actual Respiratory Rate 13 Actual Respiratory Rate 12 Actual Respiratory Rate 12 Actual Respiratory Rate 12 Positive End Expiratory 5 Pressure Positive End Expiratory 5 Pressure Positive End Expiratory 5 Pressure Positive End Expiratory 5 Pressure Positive End Expiratory 5 Pressure Positive End Expiratory 5 Pressure Peak Inspiratory Airway 10 Pressure Peak Inspiratory Airway 32 Pressure Peak Inspiratory Airway 32 Pressure Peak Inspiratory Airway 27 Pressure Peak Inspiratory Airway 27 Pressure Peak Inspiratory Airway 29 Pressure Results - Laboratory Findings CBC and BMP: 12/06/16 03:40 12/06/16 06:50 ABG ABG pH 7.41 pH Units (7.32-7.45) 12/04/16 04:09 ABG pCO2 39 mmHg (35-45) 12/04/16 04:09 ABG pO2 85 mmHg (85-104) 12/04/16 04:09 ABG O2 Saturation 96 % (95-98) 12/04/16 04:09 PT/INR, D-dimer PT 45.1 Seconds (9.4-12.1) H* 12/06/16 03:40 Abnormal lab findings: Abnormal lab results Hgb 12.3 g/dL (12.9-16.9) L 12/06/16 03:40 MCH 27.6 pg (28.0-33.3) L 12/06/16 03:40 MCHC 30.7 g/dL (31.6-35.5) L 12/06/16 03:40 RDW 18.6 % (11.5-14.5) H 12/06/16 03:40 Nucleated RBCs/100 WBC 0.5 /100 WBC (0) H 11/20/16 00:57 Immature Plt Fraction 9.2 % (1.1-6.1) H 12/01/16 08:35 Polychromasia 1+ (Not Present) A 11/26/16 05:51 Hypochromasia Present (Not Present) A 11/26/16 05:51 Basophilic Stippling 1+ (Not Present) A 11/25/16 07:02 Anisocytosis 1+ (Not Present) A 12/06/16 03:40 Microcytosis Present (Not Present) A 12/04/16 04:04 Macrocytosis Present (Not Present) A 12/04/16 04:04 PT 45.1 Seconds (9.4-12.1) H* 12/06/16 03:40 Chloride 97 mEq/L (98-109) L 12/06/16 06:50 BUN 32 mg/dL (8-26) H 12/06/16 06:50 Creatinine 7.11 mg/dL (0.72-1.25) H 12/06/16 06:50 Est GFR ( Amer) 10 (> 60) L 12/06/16 06:50 Est GFR (Non-Af Amer) 8 (> 60) L 12/06/16 06:50 BUN/Creatinine Ratio 5 (6-26) L 12/06/16 06:50 POC Glucose 94 (58-89) H 12/06/16 07:51 Hemoglobin A1c 7.1 % (-5.6) H 11/22/16 05:52 AST 68 Units/L (5-34) H 12/01/16 08:35 Alkaline Phosphatase 498 Units/L (38-126) H 12/01/16 08:35 Troponin I 0.04 ng/mL (0-0.03) H* 11/30/16 15:09 B-Natriuretic Peptide 844 pg/mL (0-100) H 11/19/16 03:43 Albumin 2.4 g/dL (3.5-5.0) L 12/01/16 08:35 Globulin 4.3 g/dL (2.4-3.5) H 12/01/16 08:35 Albumin/Globulin Ratio 0.6 (1.1-2.2) L 12/01/16 08:35 - Microbiology Findings Microbiology Findings: Microbiology, Last 48 Hours 11/30/16 15:09 Blood Culture - Final Central Venous Catheter No growth. - Clinical Findings Intake & Output: Intake & Output 12/05/16 12/06/16 12/06/16 23:59 07:59 15:59 Intake Total 202 / 202 573 / 573 Output Total 4600 / 4600 0 / 0 Balance -4398 / -4398 573 / 573 Weight 100.108 kg - Attending Attestation I examined this patient and my medical decision-making was reviewed with the Resident Physician. I agree with the documented findings, disposition and treatment plan as described except to the extent set forth below. Patient seen and examined at bedside Labs, radiology, chart personally reviewed. All lines examined without evidence of infection. Management was reviewed during multidisciplinary critical care rounds. Neuropsych: Much more agitated yesterday continue Precedex Pulm: Successfully liberated from the ventilator after encouraging CPAP trial and weaning parameters continue BiPAP at night for ZAINAB wean supplemental FiO2 to keep saturation greater than 89% Cards: Atrial fibrillation rate controlled the pressure on the lower side today restarting midodrine has a history of marked fluctuations in blood pressure which is a combination of his systolic heart failure and end-stage renal disease FEN-GI: Bedside speech and swallow eval that okay to advance diet if passes Renal: Is Wednesday underwent renal replacement yesterday likely can reattempt dialysis tomorrow electrolytes are being replaced per protocol ID: Obvious infection continue to monitor Heme/Onc: INR is still slightly supratherapeutic we continue to hold his dose of warfarin Endo: Glucose monitored Integ/MSK: Skin care per routine ICU protocol to prevent ulcers CODE: Full code
[2016-12-06] MEDS: Pantoprazole 40 MG VIAL IVP SCH (07:53)
[2016-12-06] MEDS: Pregabalin 50 MG CAPSULE PO SCH ×2 (07:53→20:40)
[2016-12-06] MEDS: Chlorhexidine Rinse 15 ML MOUTHWASH MM SCH ×2 (07:53→20:38)
[2016-12-06] MEDS: Docusate Oral Soln 100 MG/10 ML UDC GTUBE SCH ×2 (07:54→20:37)
[2016-12-06] MEDS: Nicotine 14 MG PATCH.TD24 TD SCH (07:54)
[2016-12-06] MEDS: *HR* Amiodarone 200 MG TABLET PO SCH (07:54)
[2016-12-06] MEDS: Sennosides 8.6 MG TABLET PO SCH ×2 (07:55→20:37)
[2016-12-06] MEDS: Dexmedetomidine HCl 400 MCG/100 ML MLS IVC SCH ×2 (07:59→17:25)
[2016-12-06 08:44] LABS: Magnesium 2.2 mg/dL (1.6-2.6)
[2016-12-06 08:53] LABS: Potassium 3.5 mEq/L (3.5-4.5)
--- NOTE | 2016-12-06 09:35 | Nephrology Progress Note ---
Date of Encounter: 12/06/16 Time of Encounter: 09:15 - Assessment and Plan (1) End stage renal disease on dialysis Current Visit: Yes Status: Chronic Hypercapneic respratory failure. No HD today. Subjective Principal diagnosis: aflutter with RVR Interval history: Intubated. FiO2 30, peep 5. Alert, writing appropriate notes on board. Nusrsing states will attempt CPAP this morning. Objective - Vital Signs Vital signs: Vital Signs Temp Pulse Resp BP Pulse Ox 12/06/16 09:00 109 20 76/55 94 12/06/16 08:02 25 94 12/06/16 08:01 96.3 F L 12/06/16 08:00 121 22 82/49 96 12/06/16 07:29 123 12/06/16 07:00 97.5 F L 125 20 94/50 95 12/06/16 06:00 108 12 134/100 94 12/06/16 05:52 13 117/72 90 12/06/16 05:00 97 14 117/72 99 12/06/16 04:53 97.5 F L 12/06/16 04:00 87 12 118/76 99 12/06/16 03:55 12 96/55 97 12/06/16 03:00 89 12 126/65 97 12/06/16 02:06 82 12/06/16 02:00 82 12 119/65 96 12/06/16 01:42 12 152/101 96 12/06/16 01:00 96 12 96 12/06/16 00:07 84 12 152/101 96 12/06/16 00:00 97.9 F 12/05/16 23:32 12 120/82 96 12/05/16 23:00 87 12 96 12/05/16 22:00 83 12 99 12/05/16 21:42 12 120/82 96 12/05/16 21:00 91 12 96 12/05/16 20:26 97.5 F L 12/05/16 19:47 12 120/82 96 12/05/16 19:00 95 14 120/82 92 12/05/16 18:00 105 30 95 12/05/16 17:07 15 73/49 96 12/05/16 17:00 98.6 F 98 24 84/52 99 12/05/16 16:58 98.9 F 20 107/93 07/29/17 16:00 97 12 106/76 95 12/05/16 15:33 13 81/43 98 12/05/16 15:30 111/78 12/05/16 15:15 104/68 12/05/16 15:00 97 18 105/62 95 12/05/16 14:45 90/56 12/05/16 14:30 96/53 12/05/16 14:15 100/50 12/05/16 14:00 102 18 103/54 96 12/05/16 13:45 106/68 12/05/16 13:30 92/73 12/05/16 13:15 106/68 12/05/16 13:12 17 128/54 93 12/05/16 13:00 92 20 94/62 96 12/05/16 12:45 104/65 12/05/16 12:33 99.0 F 12/05/16 12:30 99.5 F 20 103/71 12/05/16 12:00 106 25 103/71 99 12/05/16 11:30 120 12/05/16 11:06 21 12/05/16 11:00 108 24 118/93 97 12/05/16 10:00 127 24 122/80 94 Intake and Output 12/05/16 12/06/16 12/06/16 23:59 07:59 15:59 Intake Total 573 / 573 Output Total 4600 / 4600 0 / 0 Balance -4398 / -4398 573 / 573 Intake: IV Fluids 573 / 573 PRECEDEX 400 mcg In 100 200 / 200 100 / 100 10 / 10 ml @ 0.2 MCG/KG/HR 6.425 mls/hr IVC .[id number] [facility] Rx#:[id number] FentaNYL (PF) 3,000 MCG 405 / 405 10 / 10 In 0.9 % Sodium Chloride 240 ML @ 100 MCG/HR 10 mls/hr IVC [facility] Rx#: [id number] Versed 50 MG In 0.9 % 2 / 2 68 / 68 Sodium Chloride 90 ML @ 1 MG/HR 2 mls/hr IVC [facility] Rx#:[id number] Oral 0 / 0 0 / 0 Output: Urine 0 / 0 0 / 0 Total Dialysis (HD) 4600 / 4600 Output Other: Weight 100.108 kg Blood Glucose* 122 90 94 Hemodialysis Net Fluid 4000 Removed (mL) Patient Weight 12/06/16 23:59 Weight 100.108 kg - General Appearance General appearance: Present: well-developed, well-nourished, appears started age , obese EENT: Present: mucous membranes moist Neck: Present: no JVD Additional Comments: harsh breath sounds Cardiology: Present: no edema, irregular rhythm Gastrointestinal: Present: hypoactive bowel sounds, no tenderness Integumentary: Present: warm and dry Psychiatric: Present: mood/affect appropriate, cooperative - Lab 12/06/16 03:40 12/06/16 06:50 Most recent lab results ABG pH 7.41 pH Units (7.32-7.45) 12/04/16 04:09 ABG pCO2 39 mmHg (35-45) 12/04/16 04:09 ABG pO2 85 mmHg (85-104) 12/04/16 04:09 ABG HCO3 24.7 mEQ/L (21-27) 12/04/16 04:09 ABG O2 Saturation 96 % (95-98) 12/04/16 04:09 Calcium 10.0 mg/dL (8.6-10.8) 12/06/16 06:50 Magnesium 2.2 mg/dL (1.6-2.6) 12/06/16 06:50 - VTE Reasons for not Prescribing Prophylaxis: Not indicated-Anticoagulated or INR therapeutic Consult Discharge Plan - Plan Referrals: Arthur Pozo MD [Primary Care Provider] - 12/01/16 9:45 am (Please follow up as schedule..)
[2016-12-06] MEDS: Budesonide/Formoterol 160/4.5 MDI IH SCH ×2 (09:51→21:23)
[2016-12-06] MEDS: Norepinephrine 4 MG in D5% in Water 250 ML IVC SCH (11:11)
[2016-12-06] MEDS ORDERED: *HR* Metoprolol 5 MG/5 ML VIAL IVP PRN (18:55)
[2016-12-07] MEDS: Insulin LISPRO 300 UNITS/3 ML VIAL SQ SCH ×7 (00:32→23:58)
[2016-12-07] MEDS: Dexmedetomidine HCl 400 MCG/100 ML MLS IVC SCH (02:38)
[2016-12-07] MEDS: Ipratropium Neb 0.5 MG NEBULIZER IH SCH ×4 (03:09→19:54)
[2016-12-07] MEDS: Levalbuterol Neb 0.63 MG/3 ML IH SCH ×4 (03:09→19:54)
[2016-12-07] MEDS: FentaNYL (PF) 3,000 MCG in 0.9 % Sodium Chloride 240 ML IVC SCH (07:34)
[2016-12-07] MEDS: Calcium Acetate 667 MG CAPSULE PO SCH ×3 (07:48→17:22)
[2016-12-07] MEDS: Pregabalin 50 MG CAPSULE PO SCH ×2 (07:48→22:03)
[2016-12-07] MEDS: Sennosides 8.6 MG TABLET PO SCH ×2 (07:49→21:36)
[2016-12-07] MEDS: *HR* Amiodarone 200 MG TABLET PO SCH (07:50)
[2016-12-07] MEDS: Chlorhexidine Rinse 15 ML MOUTHWASH MM SCH (07:50)
[2016-12-07] MEDS: Nicotine 14 MG PATCH.TD24 TD SCH (07:50)
[2016-12-07] MEDS: Docusate Oral Soln 100 MG/10 ML UDC GTUBE SCH ×2 (07:51→21:36)
[2016-12-07] MEDS: Pantoprazole 40 MG VIAL IVP SCH (07:51)
[2016-12-07 08:05] LABS: INR 2.4; Prothrombin Time 26.5 Seconds (9.4-12.1)
--- NOTE | 2016-12-07 08:09 | Pulmonology Progress Note ---
<Tahir Dominguez - Last Filed: 12/07/16 16:49> Date of Encounter: 12/07/16 Time of Encounter: 07:15 Assessment and Plan (1) End stage renal disease on dialysis Current Visit: Yes Status: Chronic History of end-stage renal disease with noncompliance of medication and dialysis treatments. Multiple hospitalizations in the past. He was hospitalized at this visit due to hypotension and shortness of breath, intubated. He was extubated yesterday. No major complaints today. Vitals have stabilized. Patient has chronically low blood pressure, BP today is near baseline for the patient. Lungs clear to auscultation, abdomen soft and nontender. Plan: Transfer out of ICU today Continue dialysis per nephrology. Continue midodrine (2) Hx of noncompliance with medical treatment, presenting hazards to health Current Visit: Yes Status: Chronic (3) Diabetes mellitus Current Visit: Yes Status: Chronic Glucose ranging from 70s to 150s. We will continue sliding scale index at this time. Patient has been started on diet today. Qualifiers: Diabetes mellitus type: type 2 Diabetes mellitus complication status: with kidney complications Diabetes mellitus complication detail: with chronic kidney disease Diabetes mellitus alf insulin use: unspecified terminal superintendent insulin use status Chronic kidney disease stage: on chronic dialysis Qualified Code(s): E11.22 - Type 2 diabetes mellitus with diabetic chronic kidney disease; N18.6 - End stage renal disease; Z99.2 - Dependence on renal dialysis (4) Atrial fibrillation Current Visit: Yes Status: Chronic Sinus tachycardia. Rate in the low 100s. No chest pain or shortness of breath. Continue amiodarone by mouth, continue Coumadin Qualifiers: Atrial fibrillation type: chronic Qualified Code(s): I48.2 - Chronic atrial fibrillation (5) ZAINAB (obstructive sleep apnea) Current Visit: Yes Status: Chronic CPAP at night as tolerated. (6) Stage 1 decubitus ulcer Current Visit: Yes Status: Acute Stage 1 decubitus ulcer on right buttocks. Will consult wound care. Frequent turns of patient Qualifiers: Pressure ulcer location: buttock Laterality: right Qualified Code(s): L89.311 - Pressure ulcer of right buttock, stage 1 Subjective Principal diagnosis: aflutter with RVR Interval history: Patient was extubated yesterday. No acute events overnight. Patient's only complaint is discomfort of the right buttocks due to stage I ulcer. Otherwise, he denies any chest pain, shortness breath, nausea, vomiting, subjective fevers , abdominal pain. Objective PUL Vital signs: Last Vital Signs Temp 97.8 F 12/07/16 07:00 Pulse 108 12/07/16 05:59 Resp 20 12/07/16 05:59 BP 84/45 12/07/16 05:59 Pulse Ox 94 12/07/16 05:59 General appearance: no acute distress Eyes: nonicteric ENT: oropharynx moist Effort: normal Auscultation: bilateral: clear Cardiovascular: other (Sinus tachycardia) Gastrointestinal: normoactive bowel sounds, soft, non-tender, non-distended Integumentary: other (Stage I decubitus ulcer of the right buttocks approximately 4 cm x 2 cm) Extremities: no cyanosis, no edema, no clubbing, pulses normal, no ischemia or petechiae, other (Left upper extremity fistula; right upper extremity venous access) Musculoskeletal: no deformities, ROM normal Gait: other (Did not assess due to patient being bedbound) normal mental status, non-focal exam, pupils equal and round mood appropriate, affect normal Results - Laboratory Findings CBC and BMP: 12/07/16 07:33 12/07/16 07:33 ABG ABG pH 7.41 pH Units (7.32-7.45) 12/04/16 04:09 ABG pCO2 39 mmHg (35-45) 12/04/16 04:09 ABG pO2 85 mmHg (85-104) 12/04/16 04:09 ABG O2 Saturation 96 % (95-98) 12/04/16 04:09 PT/INR, D-dimer PT 45.1 Seconds (9.4-12.1) H* 12/06/16 03:40 Abnormal lab findings: Abnormal lab results Hgb 12.3 g/dL (12.9-16.9) L 12/06/16 03:40 MCH 27.6 pg (28.0-33.3) L 12/06/16 03:40 MCHC 30.7 g/dL (31.6-35.5) L 12/06/16 03:40 RDW 18.6 % (11.5-14.5) H 12/06/16 03:40 Nucleated RBCs/100 WBC 0.5 /100 WBC (0) H 11/20/16 00:57 Immature Plt Fraction 9.2 % (1.1-6.1) H 12/01/16 08:35 Polychromasia 1+ (Not Present) A 11/26/16 05:51 Hypochromasia Present (Not Present) A 11/26/16 05:51 Basophilic Stippling 1+ (Not Present) A 11/25/16 07:02 Anisocytosis 1+ (Not Present) A 12/06/16 03:40 Microcytosis Present (Not Present) A 12/04/16 04:04 Macrocytosis Present (Not Present) A 12/04/16 04:04 PT 45.1 Seconds (9.4-12.1) H* 12/06/16 03:40 Chloride 97 mEq/L (98-109) L 12/06/16 06:50 BUN 32 mg/dL (8-26) H 12/06/16 06:50 Creatinine 7.11 mg/dL (0.72-1.25) H 12/06/16 06:50 Est GFR ( Amer) 10 (> 60) L 12/06/16 06:50 Est GFR (Non-Af Amer) 8 (> 60) L 12/06/16 06:50 BUN/Creatinine Ratio 5 (6-26) L 12/06/16 06:50 POC Glucose 181 (58-89) H 12/07/16 07:16 Hemoglobin A1c 7.1 % (-5.6) H 11/22/16 05:52 AST 68 Units/L (5-34) H 12/01/16 08:35 Alkaline Phosphatase 498 Units/L (38-126) H 12/01/16 08:35 Troponin I 0.04 ng/mL (0-0.03) H* 11/30/16 15:09 B-Natriuretic Peptide 844 pg/mL (0-100) H 11/19/16 03:43 Albumin 2.4 g/dL (3.5-5.0) L 12/01/16 08:35 Globulin 4.3 g/dL (2.4-3.5) H 12/01/16 08:35 Albumin/Globulin Ratio 0.6 (1.1-2.2) L 12/01/16 08:35 - Microbiology Findings Microbiology Findings: Microbiology, Last 48 Hours 11/30/16 15:09 Blood Culture - Final Central Venous Catheter No growth. - Clinical Findings Intake & Output: Intake & Output 12/06/16 12/06/16 12/07/16 15:59 23:59 07:59 Intake Total 750 / 750 0 / 0 245 / 245 Output Total 0 / 0 Balance 750 / 750 0 / 0 - VTE Reasons for not Prescribing Prophylaxis: Not indicated-Anticoagulated or INR therapeutic Consult Discharge Plan - Plan Referrals: Arthur Pozo MD [Primary Care Provider] - 12/01/16 9:45 am (Please follow up as schedule..) - Attending Attestation I examined this patient and my medical decision-making was reviewed with the Resident Physician. I agree with the documented findings, disposition and treatment plan as described except to the extent set forth below. <Dariel Greenfield M - Last Filed: 12/07/16 17:13> Date of Encounter: 12/07/16 Objective PUL Vital signs: Last Vital Signs Temp 98.9 F 12/07/16 15:51 Pulse 151 12/07/16 12:00 Resp 20 12/07/16 05:59 BP 122/92 12/07/16 10:00 Pulse Ox 100 12/07/16 12:00 Results - Laboratory Findings CBC and BMP: 12/07/16 07:33 12/07/16 07:33 ABG ABG pH 7.41 pH Units (7.32-7.45) 12/04/16 04:09 ABG pCO2 39 mmHg (35-45) 12/04/16 04:09 ABG pO2 85 mmHg (85-104) 12/04/16 04:09 ABG O2 Saturation 96 % (95-98) 12/04/16 04:09 PT/INR, D-dimer PT 26.5 Seconds (9.4-12.1) H 12/07/16 07:33 Abnormal lab findings: Abnormal lab results Hgb 12.7 g/dL (12.9-16.9) L 12/07/16 07:33 MCH 27.7 pg (28.0-33.3) L 12/07/16 07:33 MCHC 30.6 g/dL (31.6-35.5) L 12/07/16 07:33 RDW 18.6 % (11.5-14.5) H 12/07/16 07:33 Nucleated RBCs/100 WBC 0.5 /100 WBC (0) H 11/20/16 00:57 Immature Plt Fraction 9.2 % (1.1-6.1) H 12/01/16 08:35 Polychromasia 1+ (Not Present) A 11/26/16 05:51 Hypochromasia Present (Not Present) A 11/26/16 05:51 Basophilic Stippling 1+ (Not Present) A 11/25/16 07:02 Anisocytosis 1+ (Not Present) A 12/06/16 03:40 Microcytosis Present (Not Present) A 12/04/16 04:04 Macrocytosis Present (Not Present) A 12/04/16 04:04 PT 26.5 Seconds (9.4-12.1) H 12/07/16 07:33 BUN 45 mg/dL (8-26) H D 12/07/16 07:33 Creatinine 9.18 mg/dL (0.72-1.25) H 12/07/16 07:33 Est GFR ( Amer) 8 (> 60) L 12/07/16 07:33 Est GFR (Non-Af Amer) 6 (> 60) L 12/07/16 07:33 BUN/Creatinine Ratio 5 (6-26) L 12/07/16 07:33 Glucose 159 mg/dL (70-99) H 12/07/16 07:33 POC Glucose 259 (58-89) H 12/07/16 15:48 Hemoglobin A1c 7.1 % (-5.6) H 11/22/16 05:52 Calculated Osmolality 309 (280-300) H 12/07/16 07:33 AST 68 Units/L (5-34) H 12/01/16 08:35 Alkaline Phosphatase 498 Units/L (38-126) H 12/01/16 08:35 Troponin I 0.04 ng/mL (0-0.03) H* 11/30/16 15:09 B-Natriuretic Peptide 844 pg/mL (0-100) H 11/19/16 03:43 Albumin 2.4 g/dL (3.5-5.0) L 12/01/16 08:35 Globulin 4.3 g/dL (2.4-3.5) H 12/01/16 08:35 Albumin/Globulin Ratio 0.6 (1.1-2.2) L 12/01/16 08:35 - Microbiology Findings Microbiology Findings: Microbiology, Last 48 Hours 11/30/16 15:09 Blood Culture - Final Central Venous Catheter No growth. - Clinical Findings Intake & Output: Intake & Output 12/07/16 12/07/16 12/07/16 07:59 15:59 23:59 Intake Total 245 / 245 840 / 840 Output Total 0 / 0 Balance 245 / 245 840 / 840 - Attending Attestation Patient seen and examined. Labs, radiology, chart personally reviewed. Agree with resident's history and physical, assessment, plan with following comments: POTATO PICKER: Patient follows commands, however he is not oriented completely to time, Pulmonary: Acceptable oxygenation and ventilation patient does not wish any reintubation, however we will wait for the family to discuss it as a group and also discussed with nephrology team to address this since they know patient for long time. Palliative care has seen patient in the past. Cardiovascular: stable, patient chronically has low blood pressure and to resume his Medodirine. GI: Nutrition per dietary and GI prophylaxis per routine Heme: DVT prophylaxis per routine ID: Continue antibiotics and plan to de-escalation Renal; hemodialysis Endorcine: blood glucose is monitored Lines: all lines checked and no evidence of infections Skin: skin care to prevent pressure ulcers per nursing routine care Patient is stable to be transferred out of ICU.
[2016-12-07 08:37] LABS: Basophils % 0.5 %; Eosinophils # 0.1 K/mcL (0.0-0.6); Eosinophils % 1.6 %; Hematocrit 41.5 % (37.5-50.1); Hemoglobin 12.7 g/dL (12.9-16.9); Immature Granulocytes % 0.3 % (0-4); Lymphocytes # 1.1 K/mcL (0.6-4.6); Lymphocytes % 17.9 %; Mean Corpuscular HGB Conc 30.6 g/dL (31.6-35.5); Mean Corpuscular Hemoglobin 27.7 pg (28.0-33.3); Mean Corpuscular Volume 90.4 fL (83.0-100.0); Mean Platelet Volume 11.4 fL (9.4-12.4); Monocytes # 0.9 K/mcL (0.0-1.3); Monocytes % 14.8 %; Neutrophils # 4.1 K/mcL (1.6-8.9); Platelet Count 174 K/mcL (140-400); Red Blood Count 4.59 M/mcL (4.19-5.50); Red Cell Distribution Width 18.6 % (11.5-14.5); Segmented Neutrophils % 64.9 %
[2016-12-07 08:44] LABS: Calcium 9.1 mg/dL (8.6-10.8); Magnesium 1.9 mg/dL (1.6-2.6); Potassium 4.1 mEq/L (3.5-4.5)
--- NOTE | 2016-12-07 09:08 | Nephrology Progress Note ---
Date of Encounter: 12/07/16 Time of Encounter: 08:55 - Assessment and Plan (1) End stage renal disease on dialysis Current Visit: Yes Status: Chronic Hypercapneic respratory failure. HD today, keeping MWF schedule. Orders given. Subjective Principal diagnosis: aflutter with RVR Interval history: Extubated. O2 NC 3L.A/O x3 Objective - Vital Signs Vital signs: Vital Signs Temp Pulse Resp BP Pulse Ox 12/07/16 07:00 97.8 F 127 12/07/16 05:59 108 20 84/45 94 12/07/16 05:00 61 16 122/59 93 12/07/16 04:00 106 22 72/46 95 12/07/16 03:12 27 77/52 97 12/07/16 03:00 106 24 77/52 97 12/07/16 02:30 110 12/07/16 02:00 110 26 86/53 99 12/07/16 01:07 26 81/49 99 12/07/16 01:00 104 22 81/49 99 12/07/16 00:00 116 24 77/51 99 12/06/16 23:45 28 81/54 97 12/06/16 23:00 138 26 81/54 97 12/06/16 22:00 145 17 90/47 97 12/06/16 21:24 17 95 12/06/16 21:00 131 16 70/50 96 12/06/16 20:00 137 20 122/115 95 12/06/16 19:51 98.1 F 12/06/16 19:00 137 12/06/16 18:00 145 26 133/87 99 12/06/16 17:00 135 24 87/44 97 12/06/16 16:01 18 94 12/06/16 16:00 139 22 79/60 99 12/06/16 15:17 96.3 F L 12/06/16 15:00 142 22 113/62 98 12/06/16 14:00 139 22 113/68 92 12/06/16 13:00 155 24 73/57 90 12/06/16 12:01 96.3 F L 12/06/16 12:00 137 22 92/58 92 12/06/16 11:00 134 24 100/64 98 12/06/16 10:30 94 12/06/16 10:00 128 22 95/70 100 Intake and Output 12/06/16 12/07/16 12/07/16 23:59 07:59 15:59 Intake Total 0 / 0 245 / 245 Balance 0 / 0 245 / 245 Intake: IV Fluids / 245 PRECEDEX 400 mcg In 100 180 / 180 ml @ 0.2 MCG/KG/HR 6.425 mls/hr IVC .[id number] [facility] Rx#:[id number] FentaNYL (PF) 3,000 MCG 65 / 65 In 0.9 % Sodium Chloride 240 ML @ 100 MCG/HR 10 mls/hr IVC CONT [facility] Rx#: [id number] Versed 50 MG In 0.9 % 0 / 0 Sodium Chloride 90 ML @ 1 MG/HR 2 mls/hr IVC [facility] Rx#:[id number] Oral 0 / 0 0 / 0 Other: Blood Glucose* 138 181 - General Appearance General appearance: Present: well-developed, well-nourished, appears started age EENT: Present: mucous membranes moist Neck: Present: no JVD Respiratory: Present: clear Cardiology: Present: no edema, irregular rhythm Gastrointestinal: Present: normoactive bowel sounds, no tenderness Integumentary: Present: warm and dry Neurologic: Present: alert and oriented x3 Psychiatric: Present: mood/affect appropriate, cooperative - Lab 12/07/16 07:33 12/07/16 07:33 Most recent lab results ABG pH 7.41 pH Units (7.32-7.45) 12/04/16 04:09 ABG pCO2 39 mmHg (35-45) 12/04/16 04:09 ABG pO2 85 mmHg (85-104) 12/04/16 04:09 ABG HCO3 24.7 mEQ/L (21-27) 12/04/16 04:09 ABG O2 Saturation 96 % (95-98) 12/04/16 04:09 Calcium 9.1 mg/dL (8.6-10.8) 12/07/16 07:33 Magnesium 1.9 mg/dL (1.6-2.6) 12/07/16 07:33 - VTE Reasons for not Prescribing Prophylaxis: Not indicated-Anticoagulated or INR therapeutic Consult Discharge Plan - Plan Referrals: Arthur Pozo MD [Primary Care Provider] - 07/25/17 9:45 am (Please follow up as schedule..)
[2016-12-07] MEDS ORDERED: 0.9 % Sodium Chloride 250 ML IVC PRN (09:48)
[2016-12-07] MEDS ORDERED: 0.9 % Sodium Chloride 1,000 ML PRIME SCH (10:00)
[2016-12-07] MEDS: Budesonide/Formoterol 160/4.5 MDI IH SCH ×2 (11:13→19:55)
--- NOTE | 2016-12-07 11:14 | Event Note ---
Date of Encounter: 12/07/16 Time of Encounter: 10:50 Patient expressing not to be reintubated in future. Still wants dialysis. Discussed with patient. Palliative Care consulted to discuss ramifications, end of life care to make sure patient fully understands current decision for no intubation if needed.
[2016-12-07] MEDS: Norepinephrine 4 MG in D5% in Water 250 ML IVC SCH (12:37)
[2016-12-07] MEDS ORDERED: Lactulose Oral Soln 20 GM/30 ML UDC PO PRN (15:38)
[2016-12-07] MEDS ORDERED: Norepinephrine 4 MG in D5% in Water 250 ML IVC SCH (15:38)
[2016-12-07] MEDS ORDERED: Acetaminophen 325 MG TABLET PO PRN (15:38)
[2016-12-07] MEDS ORDERED: D5% in Water 1,000 ML IVC PRN (15:38)
[2016-12-07] MEDS ORDERED: *HR* Metoprolol 5 MG/5 ML VIAL IVP PRN (15:38)
[2016-12-07] MEDS ORDERED: *HR* Dextrose 50 % in Water (Syg) 50 ML SYRINGE IVP PRN (15:38)
[2016-12-07] MEDS ORDERED: *HR* Labetalol 20 MG/4 ML SYRINGE IVP PRN (15:38)
[2016-12-07] MEDS ORDERED: Dextrose Gel 15 GM PO PRN ×2 (15:38)
[2016-12-07] MEDS ORDERED: Naloxone 0.4 MG/ML INJ IVP PRN (15:38)
[2016-12-07] MEDS ORDERED: Ondansetron 4 MG/2 ML VIAL IVP PRN (15:38)
[2016-12-07] MEDS ORDERED: Tetrahydrozoline 15 ML BOTTLE BOTH EYES PRN (15:38)
[2016-12-07] MEDS ORDERED: *HR* LORazepam 2 MG/ML VIAL IVP PRN (15:38)
[2016-12-07] MEDS ORDERED: Warfarin perPT PO PRN (15:38)
--- NOTE | 2016-12-07 15:59 | Palliative Progress Note ---
Date of Encounter: 12/07/16 Time of Encounter: 15:57 - Assessment and plan (1) Agitation Current Visit: Yes Status: Acute Assessment and plan: Non-pharmacological measures including prayer and family support. Personal environmental conservation professor at bedside for prayer during conversation. (2) End stage renal disease Current Visit: Yes Status: Chronic (3) Goals of care, counseling/discussion Current Visit: Yes Status: Acute Assessment and plan: Palliative care was re-consulted for clarification of goals of care following liberation from the ventilator. Family meeting with the patient and his son- Yogesh Stinson regarding goals of care. After extensive discussion describing the code status options and ramifications, Mr. Hatch has elected to remain a FULL CODE. We discussed detention ventilatory support via tracheostomy if indicated. Mr. Hatch made it very clear to his family that he did not want to be maintained on life support if he is in a permanent vegetative state. Living will completed and copies provided to his son. In regards to healthcare POA, Mr. Hatch would like to name his son-Yogesh Stinson to serve as his primary agent. However, Yogesh Stinson will not be 18 years old until April. Apparently, Yogesh has a court date for emancipation this week. If that occurs , healthcare POA will need completed as well. Mr. Hatch continues to plan for ECF placement for rehab. business services associate continues to follow. Goals of care/code status has been clarified and communicated to ICU team. The palliative care team will sign off. Total time for family meetin:30min. Greater than 45 min was spent in counseling and coordination of care. - Time Spent With Patient Total time spent is greater than 50% in coordination of care (as documented) at patient's floor/unit and/or counseling patient: - Subjective Interval history: Mr. Hatch is sitting up in chair with family at bedside. He reports some discomfort to his buttocks - Constitutional Vitals: Abnormal lab results Hgb 12.7 g/dL (12.9-16.9) L 12/07/16 07:33 MCH 27.7 pg (28.0-33.3) L 12/07/16 07:33 MCHC 30.6 g/dL (31.6-35.5) L 12/07/16 07:33 RDW 18.6 % (11.5-14.5) H 12/07/16 07:33 Nucleated RBCs/100 WBC 0.5 /100 WBC (0) H 11/20/16 00:57 Immature Plt Fraction 9.2 % (1.1-6.1) H 12/01/16 08:35 Polychromasia 1+ (Not Present) A 11/26/16 05:51 Hypochromasia Present (Not Present) A 11/26/16 05:51 Basophilic Stippling 1+ (Not Present) A 11/25/16 07:02 Anisocytosis 1+ (Not Present) A 12/06/16 03:40 Microcytosis Present (Not Present) A 12/04/16 04:04 Macrocytosis Present (Not Present) A 12/04/16 04:04 PT 26.5 Seconds (9.4-12.1) H 12/07/16 07:33 BUN 45 mg/dL (8-26) H D 12/07/16 07:33 Creatinine 9.18 mg/dL (0.72-1.25) H 12/07/16 07:33 Est GFR ( Amer) 8 (> 60) L 12/07/16 07:33 Est GFR (Non-Af Amer) 6 (> 60) L 12/07/16 07:33 BUN/Creatinine Ratio 5 (6-26) L 12/07/16 07:33 Glucose 159 mg/dL (70-99) H 12/07/16 07:33 POC Glucose 259 (58-89) H 12/07/16 15:48 Hemoglobin A1c 7.1 % (-5.6) H 11/22/16 05:52 Calculated Osmolality 309 (280-300) H 12/07/16 07:33 AST 68 Units/L (5-34) H 12/01/16 08:35 Alkaline Phosphatase 498 Units/L (38-126) H 12/01/16 08:35 Troponin I 0.04 ng/mL (0-0.03) H* 11/30/16 15:09 B-Natriuretic Peptide 844 pg/mL (0-100) H 11/19/16 03:43 Albumin 2.4 g/dL (3.5-5.0) L 12/01/16 08:35 Globulin 4.3 g/dL (2.4-3.5) H 12/01/16 08:35 Albumin/Globulin Ratio 0.6 (1.1-2.2) L 12/01/16 08:35 Exam: 45 year old male appearing chronically ill. He is alert and oriented with family at bedside. - Eye Eye exam: Present: EOMI, PERRL - Respiratory Respiratory exam: Present: tachypnea. Absent: accessory muscle use, respiratory distress - Cardiovascular Cardiovascular exam: Present: tachycardia - GI/Abdominal GI/Abdominal exam: Absent: tenderness - Extremities Exam Extremities exam: Absent: pedal edema - Neurological Exam Neurological exam: Present: alert, oriented X3, no focal deficits, strengths equal and symetr throughout - Psychiatric Psychiatric exam: Present: agitated - Skin Skin exam: Present: dry, warm Palliative Quality Palliative Quality: Screen for Code Status: Yes, Screen for Goals of Care: Yes, Screen for Pain: Yes, If Pain Regimen Started, Initiate Bowel Regimen: Yes, Screen for Nausea/Vomitting: Yes Code Status: 11/19/16 11:29 Resuscitation Status: Active [RES] Routine Comment: Resuscitation Status: Full Code - Labs CBC & Chem 7: 12/07/16 07:33 12/07/16 07:33 Labs: Laboratory Results - last 24 hr 12/06/16 12/07/16 12/07/16 19:15 00:03 07:16 WBC RBC Hgb Hct MCV MCH MCHC RDW Plt Count MPV Immature Gran % Seg Neutrophils % Lymphocytes % Monocytes % Eosinophils % Basophils % Neutrophils # Lymphocytes # Monocytes # Eosinophils # Basophils # PT INR Sodium Potassium Chloride Carbon Dioxide BUN Creatinine Est GFR ( Amer) Est GFR (Non-Af Amer) BUN/Creatinine Ratio Glucose POC Glucose 138 H 162 H 181 H Calculated Osmolality Calcium Magnesium 12/07/16 12/07/16 12/07/16 07:33 07:33 07:33 WBC 6.3 RBC 4.59 Hgb 12.7 L Hct 41.5 MCV 90.4 MCH 27.7 L MCHC 30.6 L RDW 18.6 H Plt Count 174 MPV 11.4 Immature Gran % 0.3 Seg Neutrophils % 64.9 Lymphocytes % 17.9 Monocytes % 14.8 Eosinophils % 1.6 Basophils % 0.5 Neutrophils # 4.1 Lymphocytes # 1.1 Monocytes # 0.9 Eosinophils # 0.1 Basophils # 0.0 PT 26.5 H INR 2.4 Sodium 142 Potassium 4.1 Chloride 99 Carbon Dioxide 28 BUN 45 H D Creatinine 9.18 H Est GFR ( Amer) 8 L Est GFR (Non-Af Amer) 6 L BUN/Creatinine Ratio 5 L Glucose 159 H POC Glucose Calculated Osmolality 309 H Calcium 9.1 Magnesium 1.9 12/07/16 12/07/16 11:14 15:48 WBC RBC Hgb Hct MCV MCH MCHC RDW Plt Count MPV Immature Gran % Seg Neutrophils % Lymphocytes % Monocytes % Eosinophils % Basophils % Neutrophils # Lymphocytes # Monocytes # Eosinophils # Basophils # PT INR Sodium Potassium Chloride Carbon Dioxide BUN Creatinine Est GFR ( Amer) Est GFR (Non-Af Amer) BUN/Creatinine Ratio Glucose POC Glucose 107 H 259 H Calculated Osmolality Calcium Magnesium - ABG Interpretation ABG results: ABG ABG pH 7.41 pH Units (7.32-7.45) 12/04/16 04:09 ABG pCO2 39 mmHg (35-45) 12/04/16 04:09 ABG pO2 85 mmHg (85-104) 12/04/16 04:09 ABG O2 Saturation 96 % (95-98) 12/04/16 04:09 PT/INR, D-dimer PT 26.5 Seconds (9.4-12.1) H 12/07/16 07:33 Consult Discharge Plan - Plan Referrals: Arthur Pozo MD [Primary Care Provider] - 12/01/16 9:45 am (Please follow up as schedule..)
[2016-12-07] MEDS ORDERED: *HR* OxyCODONE/APAP 5/325 TABLET PO PRN (19:46)
[2016-12-07] MEDS: *HR* OxyCODONE/APAP 10/325 TABLET PO PRN (20:55)
[2016-12-07] MEDS ORDERED: Pregabalin 50 MG CAPSULE PO SCH (21:00)
[2016-12-08] MEDS: Levalbuterol Neb 0.63 MG/3 ML IH SCH ×2 (03:34→10:28)
[2016-12-08] MEDS: Ipratropium Neb 0.5 MG NEBULIZER IH SCH ×2 (03:34→10:28)
[2016-12-08] MEDS: Insulin LISPRO 300 UNITS/3 ML VIAL SQ SCH ×3 (03:50→12:22)
[2016-12-08] MEDS: *HR* OxyCODONE/APAP 10/325 TABLET PO PRN (07:54)
[2016-12-08] MEDS: Pregabalin 50 MG CAPSULE PO SCH (07:54)
[2016-12-08] MEDS: Calcium Acetate 667 MG CAPSULE PO SCH ×2 (07:55→12:21)
--- NOTE | 2016-12-08 07:55 | Pulmonology Progress Note ---
<Tahir Dominguez - Last Filed: 12/08/16 09:28> Date of Encounter: 12/08/16 Time of Encounter: 06:45 Assessment and Plan (1) End stage renal disease on dialysis Current Visit: Yes Status: Chronic History of end-stage renal disease with noncompliance of medication and dialysis treatments. Multiple hospitalizations in the past. He was hospitalized at this visit due to hypotension and shortness of breath, intubated. Extubated 2 days ago and tolerating room air well. No major complaints today. Vitals stable. Patient has chronically low blood pressure, BP today is near baseline for the patient. Lungs clear to auscultation, abdomen soft and nontender. Unable to assess electrolytes and renal function at this time due to patient refusing blood draws. Plan: Transfer orders are in to transfer out of ICU. Continue dialysis per nephrology. Continue midodrine (2) Hx of noncompliance with medical treatment, presenting hazards to health Current Visit: Yes Status: Chronic (3) Diabetes mellitus Current Visit: Yes Status: Chronic Glucose ranging from 70s to 150s. We will continue sliding scale index at this time. Patient tolerating diet well. 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 Rate in the low 100s. No chest pain or shortness of breath. Continue amiodarone by mouth, continue Coumadin Qualifiers: Atrial fibrillation type: chronic Qualified Code(s): I48.2 - Chronic atrial fibrillation (5) ZAINAB (obstructive sleep apnea) Current Visit: Yes Status: Chronic CPAP at night as tolerated. (6) Stage 1 decubitus ulcer Current Visit: Yes Status: Acute Stage 1 decubitus ulcer on right buttocks. Wound care consulted. Frequent turns of patient Qualifiers: Pressure ulcer location: buttock Laterality: right Qualified Code(s): L89.311 - Pressure ulcer of right buttock, stage 1 Subjective Principal diagnosis: aflutter with RVR Interval history: No acute events overnight. Patient's only complaint is discomfort of the right buttocks due to stage I ulcer. Otherwise, he denies any chest pain, shortness breath, nausea, vomiting, subjective fevers, abdominal pain. Patient has refused any blood draw today. Yesterday, he discussed his CODE STATUS with palliative care, he remains full code at this time. Objective PUL Vital signs: Last Vital Signs Temp 98.5 F 12/07/16 23:50 Pulse 128 12/08/16 07:00 Resp 26 12/08/16 03:30 BP 136/91 12/07/16 23:50 Pulse Ox 100 12/08/16 03:30 General appearance: no acute distress Eyes: nonicteric ENT: oropharynx moist Neck: supple Effort: normal Auscultation: bilateral: clear Percussion: bilateral: not dull Tactile fremitus: bilateral: normal Cardiovascular: regular rate and rhythm Gastrointestinal: normoactive bowel sounds, non-distended Integumentary: other (Stage I decubitus ulcer of the right buttocks approximately 4 cm x 2 cm. No pus drainage or signs of infection at this time.) Extremities: no cyanosis, no edema, no clubbing Musculoskeletal: no deformities, ROM normal normal mental status, non-focal exam mood appropriate, affect normal Results - Laboratory Findings CBC and BMP: 12/07/16 07:33 12/07/16 07:33 ABG ABG pH 7.41 pH Units (7.32-7.45) 12/04/16 04:09 ABG pCO2 39 mmHg (35-45) 12/04/16 04:09 ABG pO2 85 mmHg (85-104) 12/04/16 04:09 ABG O2 Saturation 96 % (95-98) 12/04/16 04:09 PT/INR, D-dimer PT 26.5 Seconds (9.4-12.1) H 12/07/16 07:33 Abnormal lab findings: Abnormal lab results Hgb 12.7 g/dL (12.9-16.9) L 12/07/16 07:33 MCH 27.7 pg (28.0-33.3) L 12/07/16 07:33 MCHC 30.6 g/dL (31.6-35.5) L 12/07/16 07:33 RDW 18.6 % (11.5-14.5) H 12/07/16 07:33 Nucleated RBCs/100 WBC 0.5 /100 WBC (0) H 11/20/16 00:57 Immature Plt Fraction 9.2 % (1.1-6.1) H 12/01/16 08:35 Polychromasia 1+ (Not Present) A 11/26/16 05:51 Hypochromasia Present (Not Present) A 11/26/16 05:51 Basophilic Stippling 1+ (Not Present) A 11/25/16 07:02 Anisocytosis 1+ (Not Present) A 12/06/16 03:40 Microcytosis Present (Not Present) A 12/04/16 04:04 Macrocytosis Present (Not Present) A 12/04/16 04:04 PT 26.5 Seconds (9.4-12.1) H 12/07/16 07:33 BUN 45 mg/dL (8-26) H D 12/07/16 07:33 Creatinine 9.18 mg/dL (0.72-1.25) H 12/07/16 07:33 Est GFR ( Amer) 8 (> 60) L 12/07/16 07:33 Est GFR (Non-Af Amer) 6 (> 60) L 12/07/16 07:33 BUN/Creatinine Ratio 5 (6-26) L 12/07/16 07:33 Glucose 159 mg/dL (70-99) H 12/07/16 07:33 POC Glucose 159 (58-89) H 12/08/16 07:25 Hemoglobin A1c 7.1 % (-5.6) H 11/22/16 05:52 Calculated Osmolality 309 (280-300) H 12/07/16 07:33 AST 68 Units/L (5-34) H 12/01/16 08:35 Alkaline Phosphatase 498 Units/L (38-126) H 12/01/16 08:35 Troponin I 0.04 ng/mL (0-0.03) H* 11/30/16 15:09 B-Natriuretic Peptide 844 pg/mL (0-100) H 11/19/16 03:43 Albumin 2.4 g/dL (3.5-5.0) L 12/01/16 08:35 Globulin 4.3 g/dL (2.4-3.5) H 12/01/16 08:35 Albumin/Globulin Ratio 0.6 (1.1-2.2) L 12/01/16 08:35 - Microbiology Findings Microbiology Findings: Microbiology, Last 48 Hours 11/30/16 15:09 Blood Culture - Final Central Venous Catheter No growth. - Clinical Findings Intake & Output: Intake & Output 12/07/16 12/07/16 12/08/16 15:59 23:59 07:59 Intake Total 840 / 840 250 / 250 0 / 0 Output Total 4015 / 4015 0 / 0 Balance 840 / 840 -3765 / -3765 0 / 0 Weight 99.932 kg - VTE Reasons for not Prescribing Prophylaxis: Not indicated-Anticoagulated or INR therapeutic Consult Discharge Plan - Plan Instructions: Heart Failure (DC), Atrial Flutter (DC), Acute Respiratory Distress Syndrome (DC), End-Stage Kidney Disease (DC) Referrals: Arthur Pozo MD [Primary Care Provider] - 12/01/16 9:45 am (Please follow up as schedule..) Prescriptions: Carvedilol 3.125 mg PO BID #60 tab Midodrine [ProAmatine] 5 mg PO 0800,1200,1700 #90 tab Pregabalin [Lyrica] 50 mg PO DAILY #30 capsule <Dariel Greenfield M - Last Filed: 12/08/16 15:01> Date of Encounter: 12/08/16 Objective PUL Vital signs: Last Vital Signs Temp 97.9 F 12/08/16 12:31 Pulse 166 12/08/16 12:31 Resp 18 12/08/16 12:31 BP 97/86 12/08/16 12:31 Pulse Ox 99 12/08/16 10:28 Results - Laboratory Findings CBC and BMP: 12/07/16 07:33 12/07/16 07:33 ABG ABG pH 7.41 pH Units (7.32-7.45) 12/04/16 04:09 ABG pCO2 39 mmHg (35-45) 12/04/16 04:09 ABG pO2 85 mmHg (85-104) 12/04/16 04:09 ABG O2 Saturation 96 % (95-98) 12/04/16 04:09 PT/INR, D-dimer PT 26.5 Seconds (9.4-12.1) H 12/07/16 07:33 Abnormal lab findings: Abnormal lab results Hgb 12.7 g/dL (12.9-16.9) L 12/07/16 07:33 MCH 27.7 pg (28.0-33.3) L 12/07/16 07:33 MCHC 30.6 g/dL (31.6-35.5) L 12/07/16 07:33 RDW 18.6 % (11.5-14.5) H 12/07/16 07:33 Nucleated RBCs/100 WBC 0.5 /100 WBC (0) H 11/20/16 00:57 Immature Plt Fraction 9.2 % (1.1-6.1) H 12/01/16 08:35 Polychromasia 1+ (Not Present) A 11/26/16 05:51 Hypochromasia Present (Not Present) A 11/26/16 05:51 Basophilic Stippling 1+ (Not Present) A 11/25/16 07:02 Anisocytosis 1+ (Not Present) A 12/06/16 03:40 Microcytosis Present (Not Present) A 12/04/16 04:04 Macrocytosis Present (Not Present) A 12/04/16 04:04 PT 26.5 Seconds (9.4-12.1) H 12/07/16 07:33 BUN 45 mg/dL (8-26) H D 12/07/16 07:33 Creatinine 9.18 mg/dL (0.72-1.25) H 12/07/16 07:33 Est GFR ( Amer) 8 (> 60) L 12/07/16 07:33 Est GFR (Non-Af Amer) 6 (> 60) L 12/07/16 07:33 BUN/Creatinine Ratio 5 (6-26) L 12/07/16 07:33 Glucose 159 mg/dL (70-99) H 12/07/16 07:33 POC Glucose 193 (58-89) H 12/08/16 12:21 Hemoglobin A1c 7.1 % (-5.6) H 11/22/16 05:52 Calculated Osmolality 309 (280-300) H 12/07/16 07:33 AST 68 Units/L (5-34) H 12/01/16 08:35 Alkaline Phosphatase 498 Units/L (38-126) H 12/01/16 08:35 Troponin I 0.04 ng/mL (0-0.03) H* 11/30/16 15:09 B-Natriuretic Peptide 844 pg/mL (0-100) H 11/19/16 03:43 Albumin 2.4 g/dL (3.5-5.0) L 12/01/16 08:35 Globulin 4.3 g/dL (2.4-3.5) H 12/01/16 08:35 Albumin/Globulin Ratio 0.6 (1.1-2.2) L 12/01/16 08:35 - Clinical Findings Intake & Output: Intake & Output 12/07/16 12/08/16 12/08/16 23:59 07:59 15:59 Intake Total 250 / 250 0 / 0 480 / 480 Output Total 4015 / 4015 0 / 0 Balance -3765 / -3765 0 / 0 480 / 480 Weight 99.932 kg - Attending Attestation I examined this patient and my medical decision-making was reviewed with the Resident Physician. I agree with the documented findings, disposition and treatment plan as described except to the extent set forth below. Patient seen and examined. Labs, radiology, chart personally reviewed. Agree with resident's history and physical, assessment, plan with following comments: TREE SCOUT: Patient follows commands, Pulmonary: Acceptable oxygenation and ventilation Cardiovascular: stable, borderline hypotensive Patient remained stable and awaiting to be transferred to the floor or transferred to rehabilitation
[2016-12-08] MEDS: Sennosides 8.6 MG TABLET PO SCH (07:56)
[2016-12-08] MEDS: Docusate Oral Soln 100 MG/10 ML UDC GTUBE SCH (07:56)
--- NOTE | 2016-12-08 08:43 | Nephrology Progress Note ---
Date of Encounter: 12/08/16 Time of Encounter: 08:42 - Assessment and Plan (1) End stage renal disease on dialysis Current Visit: Yes Status: Chronic The patient will continue to be supported with dialysis every Wednesday. He has A. fib with a rapid ventricular rate. He is going to need some additional adjustments to his medications prior to being discharged. (2) Nonischemic cardiomyopathy Current Visit: No Status: Chronic (3) Atrial fibrillation Current Visit: No Status: Chronic Qualifiers: Atrial fibrillation type: paroxysmal Qualified Code(s): I48.0 - Paroxysmal atrial fibrillation Subjective Principal diagnosis: aflutter with RVR Interval history: Patient is awake. He is alert. Heart rate is running from 140-160. He has chronic A. fib. He status post dialysis yesterday. Objective - Vital Signs Vital signs: Vital Signs Temp Pulse Resp BP Pulse Ox 12/08/16 08:02 97.8 F 136 20 134/91 100 12/08/16 07:00 128 12/08/16 03:30 128 26 100 12/07/16 23:50 98.5 F 144 24 136/91 99 12/07/16 23:43 24 100 12/07/16 20:12 98.5 F 140 20 89/69 100 12/07/16 20:00 97.6 F 22 108/65 12/07/16 19:57 20 100 12/07/16 19:45 107/77 12/07/16 19:30 143 18 108/85 94 12/07/16 19:15 108/55 12/07/16 19:00 107/87 12/07/16 18:45 155/94 12/07/16 18:30 151/90 12/07/16 18:15 102/80 12/07/16 18:00 111/77 12/07/16 17:45 90/57 12/07/16 17:30 88/60 12/07/16 17:15 99/74 12/07/16 17:00 108/80 12/07/16 16:45 90/74 12/07/16 16:30 115/71 12/07/16 16:15 98/77 12/07/16 15:51 98.9 F 12/07/16 15:00 128 12/07/16 12:00 151 100 12/07/16 11:40 97.7 F 12/07/16 10:00 128 122/92 94 12/07/16 09:00 127 81/51 91 Intake and Output 12/07/16 12/08/16 12/08/16 23:59 07:59 15:59 Intake Total 250 / 250 0 / 0 Output Total 4015 / 4015 0 / 0 Balance -3765 / -3765 0 / 0 Intake: Oral 250 / 250 0 / 0 Output: Urine 0 / 0 0 / 0 Total Dialysis (HD) 4015 / 4015 Output Other: Stool Size Moderate Stool Consistency soft Stool Color Brown [place] # Bowel Movements 1 Weight 99.932 kg Blood Glucose* 215 159 Hemodialysis Net Fluid 3415 Removed (mL) - General Appearance Exam: Patient is alert. Heart irregular rate and rhythm. Lungs smidge breath sounds. Abdomen is obese but nontender. There is mild lower extremity swelling. There is a functioning AV fistula in the left upper extremity. - Lab 12/07/16 07:33 12/07/16 07:33 Most recent lab results ABG pH 7.41 pH Units (7.32-7.45) 12/04/16 04:09 ABG pCO2 39 mmHg (35-45) 12/04/16 04:09 ABG pO2 85 mmHg (85-104) 12/04/16 04:09 ABG HCO3 24.7 mEQ/L (21-27) 12/04/16 04:09 ABG O2 Saturation 96 % (95-98) 12/04/16 04:09 Calcium 9.1 mg/dL (8.6-10.8) 12/07/16 07:33 Magnesium 1.9 mg/dL (1.6-2.6) 12/07/16 07:33 - VTE Reasons for not Prescribing Prophylaxis: Not indicated-Anticoagulated or INR therapeutic Consult Discharge Plan - Plan Referrals: Arthur Pozo MD [Primary Care Provider] - 12/01/16 9:45 am (Please follow up as schedule..)
[2016-12-08] MEDS ORDERED: Nicotine 14 MG PATCH.TD24 TD SCH (09:00)
[2016-12-08] MEDS ORDERED: Pregabalin 50 MG CAPSULE PO SCH (09:00)
[2016-12-08] MEDS ORDERED: *HR* Amiodarone 200 MG TABLET PO SCH (09:00)
[2016-12-08] MEDS: Budesonide/Formoterol 160/4.5 MDI IH SCH (10:28)
[2016-12-08 12:33] VITALS: BP 97/86
--- NOTE | 2016-12-08 13:14 | Discharge Summary ---
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: unspecified half-way insulin use status Chronic kidney disease stage: on chronic dialysis Qualified Code(s): E11.22 - Type 2 diabetes mellitus with diabetic chronic kidney disease; N18.6 - End stage renal disease; Z99.2 - Dependence on renal dialysis (4) Atrial fibrillation Priority: Secondary Status: Chronic Qualifiers: Atrial fibrillation type: chronic Qualified Code(s): I48.2 - Chronic atrial fibrillation (5) ZAINAB (obstructive sleep apnea) Priority: Secondary Status: Chronic (6) Stage 1 decubitus ulcer Priority: Secondary Status: Acute Qualifiers: Pressure ulcer location: buttock Laterality: right Qualified Code(s): L89.311 - Pressure ulcer of right buttock, stage 1 - Discharge Medications Prescriptions: Carvedilol 3.125 mg PO BID #60 tab Midodrine [ProAmatine] 5 mg PO 0800,1200,1700 #90 tab Pregabalin [Lyrica] 50 mg PO DAILY #30 capsule Home Medications: Insulin Glargine,Hum.rec.anlog [Lantus Solostar] 30 unit SQ BID #0 01/07/15 [ History] [place] Oil/[place]-3 Fatty Acids [Fish Oil 500 mg Softgel] 1 cap PO DAILY #0 [History] Renal Vitamin [Renal Caps Softgel] 1 mg PO DAILY 01/24/16 [History] Cinacalcet HCl [Sensipar] 120 mg PO DAILY 09/02/16 [History] Amiodarone [Cordarone] 200 mg PO BID tablet 09/19/16 [Rx] Docusate [Colace] 100 mg PO BID PRN #0 capsule 09/19/16 [Rx] Ipratropium Neb [Atrovent Neb] 0.5 mg IH TIDR inhsol 09/19/16 [Rx] Levalbuterol Neb [Xopenex Neb] 0.63 mg IH TIDR vial.neb 09/19/16 [Rx] Tetrahydrozoline [Visine] 1 drop BOTH EYES QID PRN 09/29/16 [History] Warfarin [Coumadin] 5 mg PO Q48H 09/29/16 [History] Warfarin [Coumadin] 7.5 mg PO Q48H 09/29/16 [History] Atorvastatin [Lipitor] 40 mg PO HS 11/16/16 [History] Budesonide/Formoterol 160/4.5 [Symbicort 160/4.5] 2 puff IH BIDR PRN 11/16/16 [ History] Calcium Acetate [Phos-LO] 2,668 mg PO TIDWM 11/16/16 [History] Ethyl Chloride 1 unit TP MOWEFR 11/16/16 [History] Nicotine Patch [Nicoderm] 14 mg TD DAILY 11/16/16 [History] Omeprazole [PriLOSEC] 20 mg PO DAILY 11/16/16 [History] Oxygen 2 l NS AD 11/16/16 [History] Acetaminophen [Tylenol] 650 mg PO Q6HR PRN tab 12/08/16 [Rx] Albuterol Sulfate [Albuterol Inhaler] 2 puff IH [id number] PRN 12/08/16 [Rx] Carvedilol 3.125 mg PO BID 12/08/16 [History] Carvedilol 3.125 mg PO BID #60 tab 12/08/16 [Rx] Cinacalcet [Sensipar] 120 mg PO DAILY tab 12/08/16 [Rx] Docusate [Colace] 100 mg GTUBE BID 12/08/16 [Rx] Lactulose 20 gm PO BID PRN 12/08/16 [Rx] Levalbuterol Neb [Xopenex Neb] 0.63 mg IH [id number] 12/08/16 [Rx] Midodrine [ProAmatine] 5 mg PO 0800,1200,1700 #90 tab 12/08/16 [Rx] Omeprazole [PriLOSEC] 20 mg PO DAILY@0730 12/08/16 [Rx] Polyethylene Glycol 3350 [MiraLAX] 17 gm PO DAILY 12/08/16 [Rx] Pregabalin [Lyrica] 50 mg PO DAILY #30 12/08/16 [Rx] Pregabalin [Lyrica] 50 mg PO DAILY #30 capsule 12/08/16 [Rx] Allergies/Adverse Reactions: Allergies hydrocodone [From [place]] Allergy (Intermediate, Verified 09/29/16 16:59) Hives lanolin [From Lacri-Lube S.O.P.] Adverse Reaction (Verified 11/18/16 10:51) Swelling of the Eye CAUSES IRRITATION/REDNESS TO EYE. PATIENT REQUESTS NOT TO HAVE WHEN HE IS INTUBATED. mineral oil [From Lacri-Lube S.O.P.] Adverse Reaction (Verified 11/18/16 10:50) Swelling of the Eye petrolatum,white [From Lacri-Lube S.O.P.] Adverse Reaction (Verified 11/18/16 10 :50) Swelling of the Eye Labs on day of discharge: Labs from last 24 hours 12/08/16 12/08/16 12/07/16 12:21 07:25 20:44 POC Glucose 193 H 159 H 215 H 12/07/16 15:48 POC Glucose 259 H - Impressions ITS Impressions Chest X-Ray 11/24/16 08:41 IMPRESSION: Stable cardiomegaly. Mild pulmonary edema. D/ / 11/24/2016 09:55:50 Zena Gannon MD / Tiffanie Drake Interpreting Provider: Zena Gannon MD Chest X-Ray 11/26/16 05:40 IMPRESSION: 1. Satisfactory ETT placement. 2. CHF with increasing edema and/or superimposed pneumonia.. D/ / Ronny Mueller MD / Ronny Mueller MD Interpreting Provider: Ronny Mueller MD X-Ray 11/26/16 05:46 IMPRESSION: Enteric tube in the stomach with the side port at the fundus and the tip directed back towards the cardia. D/ / 11/26/2016 07:44:13 Osmar Lynn MD / mitchell Interpreting Provider: Osmar Lynn MD Chest X-Ray 11/30/16 13:20 IMPRESSION: Stable appearance of mild cardiomegaly with pulmonary vascular congestion and small bilateral pleural effusions. Left basilar atelectasis and/or consolidation appears increased. D/ / Yuriy Kemp MD / Yuriy Kemp MD Interpreting Provider: Yuriy Kemp MD X-Ray 11/30/16 13:25 IMPRESSION: Nasogastric tip projecting over the distal body of stomach D/ / Jayy Painter MD / Jayy Painter MD Interpreting Provider: Jayy Painter MD Chest X-Ray 12/05/16 20:27 IMPRESSION: Stable life support system. Persisting left lower lobe infiltrate and small left effusion. Perihilar congestion. D/ / 12/05/2016 21:29:14 Masha Wang MD / janertann marie Interpreting Provider: Masha Wang MD Date of admission: 11/19/16 09:54 Primary care physician: Arthur Pozo MD Consults: 11/19/16 12:16 Consult to Nephrology [CONS] Routine Consulting Provider: Kidney & HTN Spclst LILIYA Reason for Consult: ESRD Time Notified: 12:16 Call Completed: Yes 11/19/16 12:17 Consult to Cardiology [CONS] Routine Comment: Consulting Provider: Cardiology Soheila Reason for Consult: A flutter RVR Time Notified: 12:17 Call Completed: Yes 11/20/16 09:30 Consult to Dialysis [CONS] ONCE 11/24/16 09:09 Consult to Palliative Care [CONS] Routine Comment: Consulting Provider: Palliative Care [place] Reason for Consult: Discuss goals of care, poor prognosis. Pt declines cardioversion, unable to control HR with medications. Non-compliant. Call Completed: Yes 11/26/16 09:07 Consult to Nutrition [CONS] Routine Comment: Consulting Provider: NUTRITION Reason for Dietary Consult: TF Start and Manage 12/07/16 09:47 Consult to Palliative Care [CONS] Routine Comment: Consulting Provider: Palliative Care [place] Reason for Consult: discuss goals of care, poor prognosis with ESRD Call Completed: No Discharging clinician: Tahir Dominguez Anticipated date of discharge: 12/08/16 - Patient Status Disposition: Transfer SNF Condition: Good Functional capacity at discharge: uses cane/walker Overall status at discharge: patient is progressing back to baseline - Discharge Instructions Instructions: Heart Failure (DC), Atrial Flutter (DC), Acute Respiratory Distress Syndrome (DC), End-Stage Kidney Disease (DC) Follow Up With: Arthur Pozo MD [Primary Care Provider] - 12/01/16 9:45 am (Please follow up as schedule..) Forms: ED Satisfaction Letter - Diet and Activity Activity: ambulate only with your walker, increase activity as tolerated, other (BIPAP at night) Diet: diabetic diet - Hospital Course Hospital course: Mr. Hatch is a 45 year old male with end-stage renal disease, hypertension, diabetes, A. fib. He was admitted from the ER originally due to CHF exacerbation. He has a history of poor compliance at home with home medications. During his stay, he has required dialysis. Patient has been seen by nephrology during his stay. Patient has left upper extremity fistula and right upper extremity PICC line. Nephrology has recommended dialysis Wednesday, Wednesday, Wednesday. Patient is chronically hypotensive in the 80s over 50s. Mentating well with this blood pressure. He also had an elevated troponin during his stay, cardiology was consulted and his troponins trended down. They were also on board with controlling his A. fib with RVR - due to noncompliance, patient had not been taking his carvedilol as prescribed. During stay, patient was also elevated at 1 point due to noncompliance with BiPAP and therefore developed acute on chronic respiratory failure. Patient was eventually extubated in the ICU and is now satting well on room air. Patient has indicated that he is still a full code, this was discussed with palliative care. Wound care was also consulted during his stay due to stage I decubitus ulcer of the right buttocks. Patient is now stabilized. Heart rate in the low 100s. Blood pressure is stable and baseline per patient. Patient is requested to be transferred to a long-term care facility. [facility] be [facility]. - Time Spent with Patient Total time spent providing and/or coordinating discharge services: Less than 30 minutes Physical Examination Vital Signs: Vital Signs, Last 4 Hours Temp Pulse Resp BP Pulse Ox 12/08/16 12:31 97.9 F 166 18 97/86 12/08/16 10:28 16 99 General appearance: no acute distress, lethargic Eyes: nonicteric ENT: oropharynx moist Neck: supple Effort: normal Inspection: normal Auscultation: bilateral: clear Percussion: bilateral: not dull Tactile fremitus: bilateral: normal Cardiovascular: other (sinus tachycardia) Gastrointestinal: normoactive bowel sounds, soft, non-tender, non-distended Integumentary: normal Extremities: no cyanosis, no edema, no clubbing Musculoskeletal: no deformities, ROM normal normal mental status, non-focal exam mood appropriate, affect normal - VTE Reasons for not Prescribing Prophylaxis: Not indicated-Anticoagulated or INR therapeutic <Dariel Greenfield M - Last Filed: 12/08/16 15:32> Date of Encounter: 12/08/16 Labs on day of discharge: Labs from last 24 hours 12/08/16 12/08/16 12/07/16 12:21 07:25 20:44 POC Glucose 193 H 159 H 215 H 12/07/16 15:48 POC Glucose 259 H - Impressions ITS Impressions Chest X-Ray 11/24/16 08:41 IMPRESSION: Stable cardiomegaly. Mild pulmonary edema. D/ / 11/24/2016 09:55:50 Zena Gannon MD / Tiffanie Drake Interpreting Provider: Zena Gannon MD Chest X-Ray 11/26/16 05:40 IMPRESSION: 1. Satisfactory ETT placement. 2. CHF with increasing edema and/or superimposed pneumonia.. D/ / Ronny Mueller MD / Ronny Mueller MD Interpreting Provider: Ronny Mueller MD X-Ray 11/26/16 05:46 IMPRESSION: Enteric tube in the stomach with the side port at the fundus and the tip directed back towards the cardia. D/ / 11/26/2016 07:44:13 Osmar Lynn MD / mitchell Interpreting Provider: Osmar Lynn MD Chest X-Ray 11/30/16 13:20 IMPRESSION: Stable appearance of mild cardiomegaly with pulmonary vascular congestion and small bilateral pleural effusions. Left basilar atelectasis and/or consolidation appears increased. D/ / Yuriy Kemp MD / Yuriy Kemp MD Interpreting Provider: Yuriy Kemp MD X-Ray 11/30/16 13:25 IMPRESSION: Nasogastric tip projecting over the distal body of stomach D/ / Jayy Painter MD / Jayy Painter MD Interpreting Provider: Jayy Painter MD Chest X-Ray 12/05/16 20:27 IMPRESSION: Stable life support system. Persisting left lower lobe infiltrate and small left effusion. Perihilar congestion. D/ / 12/05/2016 21:29:14 Masha Wang MD / bcarter Interpreting Provider: Masha Wang MD Date of admission: 11/19/16 09:54 Primary care physician: Arthur Pozo MD Consults: 11/19/16 12:16 Consult to Nephrology [CONS] Routine Consulting Provider: Kidney & HTN Spclst LILIYA Reason for Consult: ESRD Time Notified: 12:16 Call Completed: Yes 11/19/16 12:17 Consult to Cardiology [CONS] Routine Comment: Consulting Provider: Cardiology Sohe[place] Reason for Consult: A flutter RVR Time Notified: 12:17 Call Completed: Yes 11/20/16 09:30 Consult to Dialysis [CONS] ONCE 11/24/16 09:09 Consult to Palliative Care [CONS] Routine Comment: Consulting Provider: Palliative Care [place] Reason for Consult: Discuss goals of care, poor prognosis. Pt declines cardioversion, unable to control HR with medications. Non-compliant. Call Completed: Yes 11/26/16 09:07 Consult to Nutrition [CONS] Routine Comment: Consulting Provider: NUTRITION Reason for Dietary Consult: TF Start and Manage 12/07/16 09:47 Consult to Palliative Care [CONS] Routine Comment: Consulting Provider: Palliative Care [place] Reason for Consult: discuss goals of care, poor prognosis with ESRD Call Completed: No - Hospital Course Hospital course: Mr. Hatch is a 45 year old male - Time Spent with Patient Total time spent providing and/or coordinating discharge services: Physical Examination Vital Signs: Vital Signs, Last 4 Hours Temp Pulse Resp BP 12/08/16 12:31 97.9 F 166 18 97/86 - Attending Attestation I examined this patient and my medical decision-making was reviewed with the Resident Physician. I agree with the documented findings, disposition and treatment plan as described except to the extent set forth below. Patient was seen in ICU for a few days waiting to be transferred to the floor, due to shortage of the beds in the floor and patient remained stable he will be discharged to ECF.
--- NOTE | 2016-12-08 14:07 | Physician Discharge Referral ---
<VickeyTahir al - Last Filed: 12/08/16 14:14> ExtendedCare Referral Info Transfer To: [facility] Provider in Charge: Dr. Greenfield Provider in Charge after Transfer: PCP Institutional Level of Care: Skilled - Diagnosis (1) End stage renal disease on dialysis Priority: Primary Status: Chronic (2) Hx of noncompliance with medical treatment, presenting hazards to health Priority: Secondary Status: Chronic (3) Diabetes mellitus Priority: Secondary Status: Chronic (4) Atrial fibrillation Priority: Secondary Status: Chronic (5) ZAINAB (obstructive sleep apnea) Priority: Secondary Status: Chronic (6) Stage 1 decubitus ulcer Priority: Secondary Status: Acute Prognosis: Fair Aware of Diagnosis: Patient, Family Aware of Prognosis: Patient, Family - Transfer Medications Prescriptions: Carvedilol 3.125 mg PO BID #60 tab Midodrine [ProAmatine] 5 mg PO 0800,1200,1700 #90 tab Pregabalin [Lyrica] 50 mg PO DAILY #30 capsule Home Medications: Insulin Glargine,Hum.rec.anlog [Lantus Solostar] 30 unit SQ BID #0 01/07/15 [ History] [place] Oil/[place]-3 Fatty Acids [Fish Oil 500 mg Softgel] 1 cap PO DAILY #0 [History] Renal Vitamin [Renal Caps Softgel] 1 mg PO DAILY 01/24/16 [History] Cinacalcet HCl [Sensipar] 120 mg PO DAILY 09/02/16 [History] Amiodarone [Cordarone] 200 mg PO BID tablet 09/19/16 [Rx] Docusate [Colace] 100 mg PO BID PRN #0 capsule 09/19/16 [Rx] Ipratropium Neb [Atrovent Neb] 0.5 mg IH TIDR inhsol 09/19/16 [Rx] Levalbuterol Neb [Xopenex Neb] 0.63 mg IH TIDR vial.neb 09/19/16 [Rx] Tetrahydrozoline [Visine] 1 drop BOTH EYES QID PRN 09/29/16 [History] Warfarin [Coumadin] 5 mg PO Q48H 09/29/16 [History] Warfarin [Coumadin] 7.5 mg PO Q48H 09/29/16 [History] Atorvastatin [Lipitor] 40 mg PO HS 11/16/16 [History] Budesonide/Formoterol 160/4.5 [Symbicort 160/4.5] 2 puff IH BIDR PRN 11/16/16 [ History] Calcium Acetate [Phos-LO] 2,668 mg PO TIDWM 11/16/16 [History] Ethyl Chloride 1 unit TP MOWEFR 11/16/16 [History] Nicotine Patch [Nicoderm] 14 mg TD DAILY 11/16/16 [History] Omeprazole [PriLOSEC] 20 mg PO DAILY 11/16/16 [History] Oxygen 2 l NS AD 11/16/16 [History] Acetaminophen [Tylenol] 650 mg PO Q6HR PRN tab 12/08/16 [Rx] Albuterol Sulfate [Albuterol Inhaler] 2 puff IH [id number] PRN 12/08/16 [Rx] Carvedilol 3.125 mg PO BID 12/08/16 [History] Carvedilol 3.125 mg PO BID #60 tab 12/08/16 [Rx] Cinacalcet [Sensipar] 120 mg PO DAILY tab 12/08/16 [Rx] Docusate [Colace] 100 mg GTUBE BID 12/08/16 [Rx] Lactulose 20 gm PO BID PRN 12/08/16 [Rx] Levalbuterol Neb [Xopenex Neb] 0.63 mg IH [id number] 12/08/16 [Rx] Midodrine [ProAmatine] 5 mg PO 0800,1200,1700 #90 tab 12/08/16 [Rx] Omeprazole [PriLOSEC] 20 mg PO DAILY@0730 12/08/16 [Rx] Polyethylene Glycol 3350 [MiraLAX] 17 gm PO DAILY 12/08/16 [Rx] Pregabalin [Lyrica] 50 mg PO DAILY #30 12/08/16 [Rx] Pregabalin [Lyrica] 50 mg PO DAILY #30 capsule 12/08/16 [Rx] Allergies/Adverse Reactions: Allergies hydrocodone [From [place]] Allergy (Intermediate, Verified 09/29/16 16:59) Hives lanolin [From Lacri-Lube S.O.P.] Adverse Reaction (Verified 11/18/16 10:51) Swelling of the Eye CAUSES IRRITATION/REDNESS TO EYE. PATIENT REQUESTS NOT TO HAVE WHEN HE IS INTUBATED. mineral oil [From Lacri-Lube S.O.P.] Adverse Reaction (Verified 11/18/16 10:50) Swelling of the Eye petrolatum,white [From Lacri-Lube S.O.P.] Adverse Reaction (Verified 11/18/16 10 :50) Swelling of the Eye - Respiratory Orders Other (BIPAP at night) Smoking Cessation: Smoking cessation has been advised. For more information, call the [facility] Mobile Tobacco Quit Line at 1-799-WZDT-NOW. - Lab Orders Lab Orders: 2 Step Mantoux Test per State regulation - Ancillary Orders May use pressure relief devices daily prn - Advance Directives Living Will: No Power of Change Control Coordinator: No Code Status: Full Code - Mobility Orders Ambulate (with walker/cane) - Rehabiliation Orders Rehab Potential: Fair Rehab Orders: Evaluation for Physical Therapy, Evaluation for Occupational Therapy - Treatments List/Other: Daily wound care/dressing changes for stage 1 diabetic ulcer on right buttocks. - Diet Orders Regular (diabetic), No Concentrated Sweets CERTIFICATION: I certify that the transfer of the above named patient to an Extended Care Facility is necessary for the continuing treatment of the diagnosis listed. The above information is true and accurate reflection of patient's current condition. Confidential - Redisclosure prohibited without a patient's written consent. <Dariel Greenfield M - Last Filed: 12/08/16 15:30> - Respiratory Orders Smoking Cessation: Smoking cessation has been advised. For more information, call the [place] Tobacco Quit Line at 8-804-WGYL-NOW. CERTIFICATION: I certify that the transfer of the above named patient to an Extended Care Facility is necessary for the continuing treatment of the diagnosis listed. The above information is true and accurate reflection of patient's current condition. Confidential - Redisclosure prohibited without a patient's written consent. I examined this patient and my medical decision-making was reviewed with the Resident Physician. I agree with the documented findings, disposition and treatment plan as described except to the extent set forth below. Patient needs care in an extended care facility for continuation of treatment
[2016-12-08] MEDS ORDERED: *HR* Warfarin 2.5 MG TABLET PO ONE (18:00)
[2016-12-09] MEDS ORDERED: Pregabalin 50 MG CAPSULE PO SCH (09:00)
== END 2016-12-08 15:20 | DRG 291 ==
LOC: EMEROO 03:02 → 2ANU 09:54 → SUATTDRO 09:54 → 2ANU 10:22 → 2NNU 11-23 16:27 → ICNU 11-26 05:30
PROVIDERS: ADMIT Internal Medicine; ATTEND Internal Medicine

== ENCOUNTER 2017-01-22 15:13 | Inpatient (IN) ==
[2017-01-22] MEDS ORDERED: *HR* FentaNYL (PF) 100 MCG/2 ML VIAL IVP ONE (15:42)
[2017-01-22 15:44] LABS: Basophils % 0.2 %; Eosinophils % 0.1 %; Hematocrit 40.6 % (37.5-50.1); Hemoglobin 12.3 g/dL (12.9-16.9); Immature Granulocytes % 0.7 % (0-4); Lymphocytes # 0.4 K/mcL (0.6-4.6); Lymphocytes % 2.9 %; Mean Corpuscular HGB Conc 30.3 g/dL (31.6-35.5); Mean Corpuscular Hemoglobin 27.3 pg (28.0-33.3); Mean Corpuscular Volume 90.2 fL (83.0-100.0); Mean Platelet Volume 11.4 fL (9.4-12.4); Monocytes # 0.8 K/mcL (0.0-1.3); Monocytes % 5.5 %; Neutrophils # 13.6 K/mcL (1.6-8.9); Nucleated Red Blood Cells 0.3 /100 WBC (0); Red Cell Distribution Width 18.2 % (11.5-14.5); Segmented Neutrophils % 90.6 %
[2017-01-22 15:45] LABS: Platelet Count 76 K/mcL (140-400)
[2017-01-22 15:46] LABS: INR 1.5; Prothrombin Time 16.7 Seconds (9.4-12.1)
[2017-01-22 15:49] LABS: Activated Partial Thrombo Time 34.4 Seconds (26.0-36.0)
[2017-01-22] MEDS ORDERED: 0.9 % Sodium Chloride 250 ML ONE (15:49)
[2017-01-22 15:54] LABS: Albumin 3.5 g/dL (3.5-5.0); Albumin/Globulin Ratio 0.7 (1.1-2.2); Bilirubin,Direct 0.9 mg/dL (0.0-0.5); Bilirubin,Indirect 0.7 mg/dL (0.0-1.2); Bilirubin,Total 1.6 mg/dL (0.2-1.2); Calcium 9.3 mg/dL (8.6-10.8); Globulin 4.7 g/dL (2.4-3.5); Magnesium 1.7 mg/dL (1.6-2.6); Phosphorous 4.2 mg/dL (2.3-4.7); Potassium 3.7 mEq/L (3.5-4.5); Total Protein 8.2 g/dL (6.0-8.3)
[2017-01-22] MEDS ORDERED: 0.9 % Sodium Chloride 250 ML IVC ONE ×2 (16:04→18:35)
--- NOTE | 2017-01-22 17:41 | Emergency Department Note ---
Disposition Clinical Impression: Atrial fibrillation with RVR, Elevated troponin I level Altered mental status Qualifiers: Altered mental status type: transient alteration of awareness Qualified Code(s) : R40.4 - Transient alteration of awareness Leukocytosis Qualifiers: Leukocytosis type: other Qualified Code(s): D72.828 - Other elevated white blood cell count Chest pain Qualifiers: Chest pain type: unspecified Qualified Code(s): R07.9 - Chest pain, unspecified Disposition: Admitted As Inpatient Condition: Serious Time of Disposition: 20:00 Chest Pain HPI - General Chief Complaint: ED Chest Pain Stated Complaint: cp/afib RVR Time Seen by Provider: 01/22/17 15:33 Source: patient, family, EMS, other Limitations: altered mental status Vital Signs Reviewed: Yes Nursing Notes Reviewed: Yes - History of Present Illness HPI Narrative: Patient 46-year-old male brought in from dialysis secondary to chest pain. Patient received his full dialysis. At the end of the dialysis session patient went into A. fib RVR and became confused. This happened on other occasions. Patient is alert and oriented to himself at arrival to the ED. Patient was lethargic. Patient denied any chest any pain at time of arrival Severity scale (1-10): 0 - Related Data Home Medications Medication Instructions Recorded Confirmed [place] Oil/[place]-3 Fatty Acids 1 cap PO DAILY #0 01/07/15 01/22/17 [Fish Oil 500 mg Softgel] Cinacalcet HCl [Sensipar] 120 mg PO DAILY 09/02/16 01/22/17 Budesonide/Formoterol 160/4.5 2 puff IH BIDR PRN 11/16/16 01/22/17 [Symbicort 160/4.5] Amiodarone [Cordarone] 200 mg PO BID 01/22/17 01/22/17 Ammonium Lactate [Amlactin] 1 appl TP BID 01/22/17 01/22/17 Calcium Acetate [Phos-LO] 2,668 mg PO TID 01/22/17 01/22/17 Carvedilol [Coreg] 50 mg PO BID 01/22/17 01/22/17 Pregabalin [Lyrica] 100 mg PO TID 01/22/17 01/22/17 Rosuvastatin Calcium [Rosuvastatin 20 mg PO DAILY 01/22/17 01/22/17 Calcium] Allergies Allergy/AdvReac Type Severity Reaction Status Date / Time hydrocodone [From [place]] Allergy Intermediate Hives Verified 09/29/16 16:59 lanolin AdvReac Swelling Verified 11/18/16 10:51 [From [facility] mineral oil AdvReac Swelling Verified 11/18/16 10:50 [From [facility] petrolatum,white AdvReac Swelling Verified 11/18/16 10:50 [From [facility] All systems ED: reviewed and negative except as stated. Review of Systems: As Per HPI Constitutional: Denies: fever Eyes: Denies: vision change ENT ED: Denies: throat pain, congestion, dysphagia Cardiovascular: Denies: chest pain Respiratory: Denies: cough, dyspnea, wheezes Gastrointestinal: Denies: abdominal pain, nausea, vomiting Chest Pain PMH - Past Medical History Medical history: Reports: arthritis, atrial fibrillation, cardiomyopathy, CHF, COPD, diabetes, dialysis, GERD, hyperlipidemia, hypertension, osteoporosis, renal disease, other Surgical history: Reports: herniorrhaphy, vascular surgery, other Psychiatric history: Reports: anxiety, depression, other - Social History Smoking Status: Current every day smoker Alcohol use: Reports: none, unknown Drug use: Reports: marijuana, other Physical Exam 46-year-old male alert and oriented to name. When asked what the day as patient gives his birthdate. Patient's clear confused. Patient has heart rate of 220 on hand sewer shoes. No focal neurologic deficits seen on exam - General Limitations: altered mental status General appearance: lethargic - Head Head exam: atraumatic, normocephalic, normal inspection - Eye Eye exam: Present: normal appearance, PERRL, EOMI - ENT ENT exam: mucous membranes moist - Neck Neck exam: Present: normal inspection, full ROM, trachea midline - Chest Chest inspection: Present: normal inspection, symmetric chest wall rise - Respiratory Respiratory exam: Absent: respiratory distress, wheezes - Cardiovascular Cardiovascular exam: Present: tachycardia, irregular rhythm - Abdominal Exam Abdominal exam: Present: soft, Non-Tender Course Vital Signs Pulse Rate 183 01/22/17 15:18 Respiratory Rate 28 01/22/17 15:18 Blood Pressure 204/174 01/22/17 15:18 O2 Sat by Pulse Oximetry 100 01/22/17 15:18 Temperature 99.1 F 01/22/17 23:17 Pulse Rate 125 01/22/17 23:17 Respiratory Rate 16 01/22/17 23:17 Blood Pressure 87/51 01/22/17 23:17 O2 Sat by Pulse Oximetry 93 01/22/17 23:17 Oxygen Delivery Oxygen Delivery Room Air Chest Pain - MDM Narrative Medical decision making narrative: Patient presented with chest pain and confusion after dialysis treatment. Patient has a history of CHF and COPD as well. Patient received full dialysis and was thought to be fluid overloaded. The patient was acutely suspected be in heart failure with A. fib RVR. The patient's acute confusion. Rule out intracranial abnormalities and intrathoracic as well as intra-abdominal abnormalities. CT of head, chest, and abdomen were ordered. Patient initially not stable to go to CT secondary to heart rate and blood pressure issues. Patient is placed in resuscitation. While awaiting IV insertion to start medication and labs. Patient started to regain more alertness. Patient became alert and oriented 3. Line was started. Diltiazem bolus was administered. Patient's heart rate came down from 220 to 170s. Patient started feeling a lot better. After increase in patient's diltiazem drip to 15 mg an hour patient's blood pressure started to decrease into hypotensive ranges. Diltiazem drip was stopped. Consulted cardiology. Dr. Carson recommended amiodarone drip at standard rate. Which is started. Patient's troponin resulted at 0.09. Patient's lactate was negative white blood cell count of 15. Plans for admission. Patient accepts this is an for admission Patient was accepted for admission. Patient is hungry and is being allowed to eat. Patient's heart rate down below 140 after amiodarone drip. - Lab Data Lab results reviewed: Yes I reviewed the patient's lab results. Lab results narrative: Short CBC 01/22/17 Range/Units 15:27 WBC 15.0 H (4.3-11.1) K/mcL Hgb 12.3 L (12.9-16.9) g/dL Hct 40.6 (37.5-50.1) % Plt Count 76 L (140-400) K/mcL Neutrophils # 13.6 H (1.6-8.9) K/mcL BMP 01/22/17 Range/Units 15:27 Sodium 138 (136-145) mEq/L Potassium 3.7 (3.5-4.5) mEq/L Chloride 96 L (98-109) mEq/L Carbon Dioxide 28 (19-29) mEq/L BUN 23 (8-26) mg/dL Creatinine 4.85 H (0.72-1.25) mg/dL Glucose 123 H (70-99) mg/dL Calcium 9.3 (8.6-10.8) mg/dL Cardiac Enzymes 01/22/17 01/22/17 Range/Units 21:06 15:27 Troponin I 0.12 H* 0.09 H* (0-0.03) ng/mL Liver Function 01/22/17 Range/Units 15:27 Total Bilirubin 1.6 H (0.2-1.2) mg/dL Direct Bilirubin 0.9 H (0.0-0.5) mg/dL AST 18 (5-34) Units/L ALT 11 (0-55) Units/L Alkaline Phosphatase 557 H (38-126) Units/L Albumin 3.5 (3.5-5.0) g/dL Result diagrams: 01/22/17 15:27 01/22/17 15:27 Lab Results 01/22/17 01/22/17 01/22/17 Range/Units 15:27 15:27 15:27 WBC 15.0 H (4.3-11.1) K/mcL RBC 4.50 (4.19-5.50) M/mcL Hgb 12.3 L (12.9-16.9) g/dL Hct 40.6 (37.5-50.1) % MCV 90.2 (83.0-100.0) fL MCH 27.3 L (28.0-33.3) pg MCHC 30.3 L (31.6-35.5) g/dL RDW 18.2 H (11.5-14.5) % Plt Count 76 L (140-400) K/mcL MPV 11.4 (9.4-12.4) fL Immature Gran % 0.7 (0-4) % Seg Neutrophils % 90.6 % Lymphocytes % 2.9 % Monocytes % 5.5 % Eosinophils % 0.1 % Basophils % 0.2 % Neutrophils # 13.6 H (1.6-8.9) K/mcL Lymphocytes # 0.4 L (0.6-4.6) K/mcL Monocytes # 0.8 (0.0-1.3) K/mcL Eosinophils # 0.0 (0.0-0.6) K/mcL Basophils # 0.0 (0.0-0.2) K/mcL Nucleated RBCs/100 WBC 0.3 H (0) /100 WBC PT 16.7 H (9.4-12.1) Seconds INR 1.5 APTT 34.4 (26.0-36.0) Seconds Sodium 138 (136-145) mEq/L Potassium 3.7 (3.5-4.5) mEq/L Chloride 96 L (98-109) mEq/L Carbon Dioxide 28 (19-29) mEq/L BUN 23 (8-26) mg/dL Creatinine 4.85 H (0.72-1.25) mg/dL Est GFR ( Amer) 16 L (> 60) Est GFR (Non-Af Amer) 13 L (> 60) BUN/Creatinine Ratio 5 L (6-26) Glucose 123 H (70-99) mg/dL Calculated Osmolality 291 (280-300) Lactic Acid (0.5-2.2) mmol/L Calcium 9.3 (8.6-10.8) mg/dL Phosphorus 4.2 (2.3-4.7) mg/dL Magnesium 1.7 (1.6-2.6) mg/dL Total Bilirubin 1.6 H (0.2-1.2) mg/dL Direct Bilirubin 0.9 H (0.0-0.5) mg/dL Indirect Bilirubin 0.7 (0.0-1.2) mg/dL AST 18 (5-34) Units/L ALT 11 (0-55) Units/L Alkaline Phosphatase 557 H (38-126) Units/L Troponin I (0-0.03) ng/mL Serum Total Protein 8.2 (6.0-8.3) g/dL Albumin 3.5 (3.5-5.0) g/dL Globulin 4.7 H (2.4-3.5) g/dL Albumin/Globulin Ratio 0.7 L (1.1-2.2) 01/22/17 01/22/17 Range/Units 15:27 15:27 WBC (4.3-11.1) K/mcL RBC (4.19-5.50) M/mcL Hgb (12.9-16.9) g/dL Hct (37.5-50.1) % MCV (83.0-100.0) fL MCH (28.0-33.3) pg MCHC (31.6-35.5) g/dL RDW (11.5-14.5) % Plt Count (140-400) K/mcL MPV (9.4-12.4) fL Immature Gran % (0-4) % Seg Neutrophils % % Lymphocytes % % Monocytes % % Eosinophils % % Basophils % % Neutrophils # (1.6-8.9) K/mcL Lymphocytes # (0.6-4.6) K/mcL Monocytes # (0.0-1.3) K/mcL Eosinophils # (0.0-0.6) K/mcL Basophils # (0.0-0.2) K/mcL Nucleated RBCs/100 WBC (0) /100 WBC PT (9.4-12.1) Seconds INR APTT (26.0-36.0) Seconds Sodium (136-145) mEq/L Potassium (3.5-4.5) mEq/L Chloride (98-109) mEq/L Carbon Dioxide (19-29) mEq/L BUN (8-26) mg/dL Creatinine (0.72-1.25) mg/dL Est GFR ( Amer) (> 60) Est GFR (Non-Af Amer) (> 60) BUN/Creatinine Ratio (6-26) Glucose (70-99) mg/dL Calculated Osmolality (280-300) Lactic Acid 1.6 (0.5-2.2) mmol/L Calcium (8.6-10.8) mg/dL Phosphorus (2.3-4.7) mg/dL Magnesium (1.6-2.6) mg/dL Total Bilirubin (0.2-1.2) mg/dL Direct Bilirubin (0.0-0.5) mg/dL Indirect Bilirubin (0.0-1.2) mg/dL AST (5-34) Units/L ALT (0-55) Units/L Alkaline Phosphatase (38-126) Units/L Troponin I 0.09 H* (0-0.03) ng/mL Serum Total Protein (6.0-8.3) g/dL Albumin (3.5-5.0) g/dL Globulin (2.4-3.5) g/dL Albumin/Globulin Ratio (1.1-2.2) - Radiology Data Radiology results reviewed: Yes I reviewed the patient's radiology results. Chest X-Ray 01/22/17 15:35 IMPRESSION: Stable moderate cardiomegaly. Improved aeration of the left retrocardiac region. Mild left basilar pleuroparenchymal disease is suspected. D/ / Cam Munoz MD / Cam Munoz MD Interpreting Provider: Cam Munoz MD Abdomen/Pelvis CT 01/22/17 15:38 IMPRESSION: Stable moderate cardiomegaly. Unchanged small pericardial effusion. Mild hepatosplenomegaly of uncertain etiology, unchanged. Peripancreatic fat stranding suggests acute pancreatitis. A similar finding was present on the prior study. Clinical correlation is recommended The gallbladder is contracted. Follow-up gallbladder ultrasound after fasting may be helpful. Atrophic pelvic right kidney. D/ / Cam Munoz MD / Cam Munoz MD Interpreting Provider: Cam Munoz MD Chest CT 01/22/17 15:38 IMPRESSION: Small pericardial effusion. No acute abnormality otherwise D/ / Cam Arroyo / Cam Arroyo Interpreting Provider: Cam Arroyo Head CT 01/22/17 15:38 IMPRESSION: 1. No acute intracranial abnormality. 2. Scattered subcutaneous emphysema in the infratemporal region on the right of indeterminate etiology. D/ / Branden Lua MD / Branden Lua MD Interpreting Provider: Branden Lua MD - EKG Data EKG attestation: Yes I reviewed and interpreted this EKG. EKG results narrative: Patient's EKG showed A. fib RVR no acute elevations or depressions of ST segments. Rates upwards of 220bpm Rate: tachycardia Rhythm: A.Fib Heart Score - Score History: Moderately Suspicious EKG: Non Specific repolarisation Disturbance Age: 45-65 Risk Factors: Equal/Greater than 3 risk factor or history of atherosclerotic disease Troponin: 1-3x normal limit HEART Score Total: 6 Critical Care Time Critical Care Time: Yes Total Critical Care Time: 70 Attestation: Critical care time 70 minutes. Attestation Statement - Attestation Attestation: Patient was seen with resident physician. I reviewed the history, physical, assessment and plan, and agree with the findings. I also personally evaluated this patient and had [id number] time with this patient. 46-year-old male presents to the emergency Department chief complaint of chest pain status post dialysis. Patient was at the dialysis center received his full treatment but developed chest pain shortly thereafter they contacted EMS and was brought to the emergency department on arrival patient was somewhat obtunded. He was unable to give a history. Seems to move all extremities. Very high blood pressure. There was initially concern for stroke or vascular accident amongst other potential causes of his symptoms. Patient appeared critically ill. His heart rate was also severely elevated in the 200s. On examination vital signs tachycardic and initially hypertensive. Lungs poor respiratory effort but clear. Chest was nontender. Abdomen was distended, obese, nontender. Extremities swelling bilaterally in the lower extremities. Upper extremities unremarkable. Neurologically patient moves all extremities and follows some commands but had a difficult time answering questions. Pupils were equal and reactive. ED course we are very concerned about this patient upon initial arrival. Repeat blood pressures however came down pretty dramatically into the 130s initially and then lower after that. His heart rate initially we attempted to treat with Cardizem which was minimally successful, and did lower his blood pressure. We then discussed the case with both nephrology, and cardiology, who suggested switching the amiodarone which we did all in the emergency department. Additional B scan his head chest and abdomen with no significant or acute changes there. We kept a close eye on this patient throughout the course of his stay. He will be admitted to the intensive care unit for further evaluation and treatment. Hospitalist was notified of need for admission. I agree with resident physician assessment and plan. Critical care time for this patient was 70 minutes managing multiple medical problems.
[2017-01-22] MEDS ORDERED: Amiodarone Premix 360 MG/200 ML BAG IVC ONE (18:34)
--- NOTE | 2017-01-22 19:58 | Internal Med History&Physical ---
<Branden Griffith - Last Filed: 01/22/17 21:54> Date of Encounter: 01/22/17 Time of Encounter: 19:49 Assessment and Plan (1) Atrial fibrillation with RVR Current visit: Yes Status: Acute Patent became hypotensive on Cardizem drip. Switched to Amiodarone drip per cardio and nephrology recommendations. Patient is non-compliant with home Amiodarone use. Continue Amiodarone drip. Hold home Coreg due to hypotension (2) Severe sepsis Current visit: Yes Status: Acute 3 SIRS criteria on admission: WBC 15, HR 146, RR 24, Temp 99.5 F. Lactic acid 1.6 HAP vs lower extremity cellulitis as likely source of infection, patient reports fever/chills, and productive cough. Left arm dialysis shunt appears non- infected. Continue renally dosed empiric Vanc, Zosyn. Monitor labs. Blood, sputum, and urine culture pending Patient given 1 liter IVF total in ED, cautious hydration. Patient not given sepsis bolus due to severely reduced EF 15-20%. CT abd/plv shows peripancreatic fat stranding suggests acute pancreatitis but a similar finding was present on the prior study. CT chest negative. Echo recently performed 11/22/16. Recommend QUIQUE if blood cultures come back positive. (3) Hypotension Current visit: No Status: Acute Current BP 96/78. Obtain consent for CVC. If MAP drops below 65, place CVC and start pressors to maintain MAP >65. Hold home Coreg due to hypotension. Qualifiers: Hypotension type: unspecified hypotension type Qualified Code(s): I95.9 - Hypotension, unspecified (4) End stage renal disease on dialysis Current visit: No Status: Chronic Continue HD every MWF. Supplement K and Mag. No signs of infection left brachial shunt. Nephrology consulted. (5) Systolic heart failure, chronic Current visit: No Status: Chronic EF 15-20% on 11/22/16, Cautious hydration. Fluid restriction. (6) Nonischemic cardiomyopathy Current visit: No Status: Chronic EF 15-20% on 11/22/16, Cautious hydration. Fluid restriction. (7) Elevated troponin Current visit: No Status: Acute Initial troponin 0.09, monitor serial troponins Likley elevated due to demand ischemia from sepsis and ESRD (8) Encephalopathy acute Current visit: No Status: Resolved Resolved after IVF in ED. CT brain negative (9) COPD (chronic obstructive pulmonary disease) Current visit: No Status: Chronic Not in acute exacerbation. Continue home meds. Qualifiers: COPD type: unspecified COPD Qualified Code(s): J44.9 - Chronic obstructive pulmonary disease, unspecified (10) Diabetes mellitus type 2, uncontrolled, with complications Current visit: No Status: Chronic HGB a1c 7.1 on 11/22/16 Continue diabetic diet. Adjust insulin regimen as needed. Qualifiers: Diabetes mellitus nursing home insulin use: with nursing home use Qualified Code( s): E11.8 - Type 2 diabetes mellitus with unspecified complications; E11.65 - Type 2 diabetes mellitus with hyperglycemia; Z79.4 - intermediate accountant (current) use of insulin (11) Obesity (BMI 30-39.9) Current visit: No Status: Acute Discussed diet modification and exercise (12) Medical non-compliance Current visit: No Status: Acute Patient non-compliant with Amidrarone PO at home (13) DVT prophylaxis Current visit: No Status: Acute Heparin TID Internal Medicine - H&P: HPI Chief complaint: AMS Admitted From: Home Plans for Post Hospital Care: Home History of present illness: Mr. Hatch is a 46 year old male with a PMH of atrial fibrillation, ESRD with HD every MWF, cardiomyopathy, systolic CHF with EF 15-20%, COPD, DM, hypertension, and hyperlipidemia that presented with AMS after completing dialysis prior to arrival. The developed AMS, increased blood pressure, and A- fib RVR in route to the ED. In the ED, patient's blood pressure decreased once on Cardizem but HR remained in 150s. The ED physician discussed case with nephrology and cardiology who suggested switching to Amiodarone drip. At time of initial encounter, patient was sitting up in bed now A&Ox3 with family at bedside. Patient reports subjective fever and chills last night and productive cough which he attributes to recently stopping to smoke. He also reports shoulder pain and mild redness in both legs. Family reports patient is non-compliant with home Amiodarone use. He denies CP, SOB, abd pain, N/V/D, abd pain, distension, headache, or worsening lower extremity edema. His manual blood pressure was 70/52 in the ED and HR 130. Past Med Surg Social Fam HX - Past Medical History Medical history: arthritis, atrial fibrillation, cardiomyopathy, CHF, COPD, diabetes, dialysis, GERD, hyperlipidemia, hypertension, osteoporosis, renal disease, other Psychiatric history: anxiety, depression, other - Past Surgical History Surgical History: herniorrhaphy, vascular surgery, other - Social History Smoking Status: Current every day smoker Smokeless Tobacco Status: No Alcohol use: none, unknown Drug use: marijuana, other - Family History Father Living Status: Hx Family Cardiac Disorders: No Hx Family Respiratory Disorders: No Hx Family Cancer: No Hx Family GI Disorders: No Hx Family Endocrine Disorder: No Hx Family Neuromuscular Disorders: No Hx Family Neurologic Disorders: No Hx Family HEENT Disorders: No Hx Family Autoimmune Disorders: No Mother Adopted: No Living Status: Still Living Hx Family Cardiac Disorders: Yes Hx Family Endocrine Disorder: Yes Internal Medicine - H&P: Meds [place] Oil/[place]-3 Fatty Acids [Fish Oil 500 mg Softgel] 1 cap PO DAILY #0 [History] Cinacalcet HCl [Sensipar] 120 mg PO DAILY 09/02/16 [History] Budesonide/Formoterol 160/4.5 [Symbicort 160/4.5] 2 puff IH BIDR PRN 11/16/16 [ History] Amiodarone [Cordarone] 200 mg PO BID 01/22/17 [History] Ammonium Lactate [Amlactin] 1 appl TP BID 01/22/17 [History] Calcium Acetate [Phos-LO] 2,668 mg PO TID 01/22/17 [History] Carvedilol [Coreg] 50 mg PO BID 01/22/17 [History] Pregabalin [Lyrica] 100 mg PO TID 01/22/17 [History] Rosuvastatin Calcium [Rosuvastatin Calcium] 20 mg PO DAILY 01/22/17 [History] 3 Allergy/AdvReac Type Severity Reaction Status Date / Time hydrocodone [From [place]] Allergy Intermediate Hives Verified 09/29/16 16:59 lanolin AdvReac Swelling Verified 11/18/16 10:51 [From [employer] S[employer] of the Eye mineral oil AdvReac Swelling Verified 11/18/16 10:50 [From [employer] [facility] of the Eye petrolatum,white AdvReac Swelling Verified 11/18/16 10:50 [From [employer] [facility] of the Eye All Systems PM: A 10-system review of systems was performed and is negative for pertinent findings except as documented above in the HPI. - Constitutional Constitutional: chills, fever(s), no night sweats, no weakness, no weight gain, no weight loss - EENT Eyes: no change in vision Nose, mouth and throat: nasal congestion, sore throat, no dry mouth - Cardiovascular Cardiovascular ROS IM: irregular heart rhythm, palpitations, no chest pain, no lightheadedness - Respiratory Respiratory: cough, excessive phlegm production, no dyspnea - Gastrointestinal Gastrointestinal: no abdominal pain, no bloating, no diarrhea, no nausea, no vomiting - Genitourinary Genitourinary ROS male: no difficulty urinating, no dysuria, no urinary hesitancy, no urinary urgency - Musculoskeletal Musculoskeletal ROS IM: no back pain, no numbness, no tingling - Integumentary Integumentary IM: erythema, no rash - Neurological Neurological ROS: confusion, no loss of vision, no numbness, no tingling, no weakness - Psychiatric Psychiatric: anxiety, no depression - Endocrine Endocrine IM: no polydipsia, no polyphagia, no polyuria - Constitutional Vitals: Temp Pulse Resp BP Pulse Ox 98.9 F 146 24 92/72 95 01/22/17 15:40 01/22/17 19:00 01/22/17 19:00 01/22/17 19:00 01/22/17 19:00 General appearance: Present: cooperative, A&O X 3, pleasant, obese, answers questions appropriately - Head Head exam: Present: atraumatic, normal inspection, normocephalic - Eye Eye exam: Present: EOMI, PERRL - ENT ENT exam: Present: mucous membranes moist. Absent: normal oropharynx - Expanded ENT Exam Throat exam: Present: post pharyngeal erythema, tonsillar erythema - Neck Neck exam general surgery: Present: supple. Absent: lymphadenopathy, tenderness - Respiratory Respiratory exam: Present: CTAB. Absent: rhonchi, wheezes - Cardiovascular Cardiovascular exam: Present: distant heart sounds, irregular rhythm, +S1, +S2 - GI/Abdominal GI/Abdominal exam: Present: distended, normal bowel sounds, soft. Absent: firm , guarding, rebound, tenderness - Extremities Exam Extremities exam: Present: pedal edema, warm, radial pulses palpable and symmetrical Additional comments: Dialysis graft Left brachial - Neurological Exam Neurological exam: Present: alert, CN II-XII intact, oriented X3, strengths equal and symetr throughout. Absent: altered, no focal deficits - Psychiatric Psychiatric exam: Present: anxious. Absent: depressed - Skin Skin exam: Present: dry, erythema, intact, warm. Absent: rash Additional comments: warm, mild erythema with chronic venous stasis changes bilateral lower extremities, 2+ edema Internal Med - H&P Results - Labs CBC & Chem 7: 01/22/17 15:27 01/22/17 15:27 - EKG Data -: EKG Interpreted by Myself Rate: tachycardia (A-fib w RVR) - Impressions Impressions Chest X-Ray 01/22/17 15:35 IMPRESSION: Stable moderate cardiomegaly. Improved aeration of the left retrocardiac region. Mild left basilar pleuroparenchymal disease is suspected. D/ / Cam Munoz MD / Cam Munoz MD Interpreting Provider: Cam Munoz MD Abdomen/Pelvis CT 01/22/17 15:38 IMPRESSION: Stable moderate cardiomegaly. Unchanged small pericardial effusion. Mild hepatosplenomegaly of uncertain etiology, unchanged. Peripancreatic fat stranding suggests acute pancreatitis. A similar finding was present on the prior study. Clinical correlation is recommended The gallbladder is contracted. Follow-up gallbladder ultrasound after fasting may be helpful. Atrophic pelvic right kidney. D/ / Cam Munoz MD / Cam Munoz MD Interpreting Provider: Cam Munoz MD Chest CT 01/22/17 15:38 IMPRESSION: Small pericardial effusion. No acute abnormality otherwise D/ / Cam Arroyo / Cam Arroyo Interpreting Provider: Cam Arroyo Head CT 01/22/17 15:38 IMPRESSION: 1. No acute intracranial abnormality. 2. Scattered subcutaneous emphysema in the infratemporal region on the right of indeterminate etiology. D/ / Branden Lua MD / Branden Lua MD Interpreting Provider: Branden Lua MD <Lj Anderson - Last Filed: 01/23/17 00:17> Date of Encounter: 01/22/17 Time of Encounter: 22:20 - Constitutional Constitutional: chills, fever(s) - EENT Eyes: no blurry vision, no change in vision Ears: no ear pain, no tinnitus Nose, mouth and throat: nasal congestion, sore throat, no nasal discharge - Cardiovascular Cardiovascular ROS IM: edema, irregular heart rhythm, palpitations, no chest pain - Respiratory Respiratory: cough, excessive phlegm production, no pain on inspiration - Gastrointestinal Gastrointestinal: no abdominal pain - Integumentary Integumentary IM: erythema (both lower legs) - Neurological Neurological ROS: confusion, dizziness, no focal weakness, no frequent falls, no headache(s) - Endocrine Endocrine IM: no polydipsia, no polyuria - Allergic/Immunologic Allergic/Immunologic: no wheezing, no GI upset with certain foods - Constitutional Vitals: Temp Pulse Resp BP Pulse Ox 99.1 F 125 16 87/51 93 01/22/17 23:17 01/22/17 23:17 01/22/17 23:17 01/22/17 23:17 01/22/17 23:17 General appearance: Present: cooperative, A&O X 3, pleasant - Head Head exam: Present: normal inspection - Eye Eye exam: Present: PERRL. Absent: scleral icterus - ENT ENT exam: Present: mucous membranes dry, normal exam - Neck Neck exam general surgery: Present: supple. Absent: tenderness - Respiratory Respiratory exam: Present: CTAB. Absent: chest wall tenderness, rales, rhonchi , wheezes - Cardiovascular Cardiovascular exam: Present: distant heart sounds, irregular rhythm, +S1, +S2. Absent: diastolic murmur, systolic murmur - GI/Abdominal GI/Abdominal exam: Present: soft. Absent: guarding, rebound, tenderness - Extremities Exam Extremities exam: Present: pedal edema, tenderness (mild tenderness, warm, and red in both pretibial areas), warm Additional comments: Left forearm with dialysis shunt without redness, warmth, or pain - Neurological Exam Neurological exam: Present: alert, CN II-XII intact, oriented X3 Internal Med - H&P Results - Labs CBC & Chem 7: 01/22/17 15:27 01/22/17 15:27 Labs: Cardiac Enzymes 01/22/17 Range/Units 21:06 Troponin I 0.12 H* (0-0.03) ng/mL - EKG Data -: EKG Interpreted by Myself (Atrial fibrillaiton with RVR) - Diagnostic Studies Chest x-ray Status: image reviewed by me (cardiomegaly, no failure) - Attending Attestation I discussed the patient [place], PMH, ROS, lab data, and exam findings with Dr. Griffith. I then saw and examined patient independently as well. Pt initially was hypotensive and profoundly tachycardic in ER. He responded to some martin IVF boluses and to Amiodarone drip. He is still tachycardic, but he is slowing down. BP is stable and tolerable now in the 90/60's, which is his baseline. He admits to fevers, chills, cough, and weakness. He states that he often has chills right after dialysis. I worry about sepsis given that history, and I agree with Dr. Griffith's treatment plan as such. He denies chest pain, and I believe his troponin leak is due to his rhythm and cardiomyopathy. He is thrombocytopenic, and I believe it is from dialysis and probably sepsis as well. We will hold off on anticoagulation for now and will place him on Heparin DVT prophylaxis and monitor platelets closely. Anticoagulation should be addressed soon, but with his non-compliance, it may not be a safe option for him. Cardiology and Nephrology will be consulted consulted as well to assist with management. Other than my comments above and noted exam findings, I agree with Dr. Griffith's assessment and plan.
[2017-01-22] MEDS ORDERED: Naloxone 0.4 MG/ML INJ IVP PRN (20:21)
[2017-01-22] MEDS: Amiodarone Premix 360 MG/200 ML BAG IVC ONE (20:45)
[2017-01-22] MEDS ORDERED: *HR* Dextrose 50 % in Water (Syg) 50 ML SYRINGE IVP PRN (20:57)
[2017-01-22] MEDS ORDERED: D5% in Water 1,000 ML IVC PRN (20:57)
[2017-01-22] MEDS ORDERED: Dextrose Gel 15 GM PO PRN ×2 (20:57)
[2017-01-22] MEDS ORDERED: Vancomycin (wt based) 1,000 MG VIAL IVPB SCH (21:00)
[2017-01-22] MEDS ORDERED: Budesonide/Formoterol 160/4.5 MDI IH PRN (21:48)
[2017-01-22] MEDS ORDERED: Magnesium Sulfate 2 GM in D5% in Water 100 ML IVPB ONE (21:51)
[2017-01-22] MEDS: Insulin LISPRO 300 UNITS/3 ML VIAL SQ SCH (21:52)
[2017-01-22] MEDS ORDERED: Acetaminophen 325 MG TABLET PO PRN (21:53)
[2017-01-22] MEDS: *HR* Heparin 5,000 UNIT/ML VIAL SQ SCH (21:53)
[2017-01-22] MEDS ORDERED: Vancomycin 1,750 MG in D5% in Water 500 ML IVPB ONE (22:00)
[2017-01-23] MEDS: Insulin DETEMIR 100 UNIT/ML X5UNITS SQ SCH ×2 (00:10→22:45)
[2017-01-23] MEDS: Amiodarone Premix 360 MG/200 ML BAG IVC ONE (02:43)
[2017-01-23] MEDS: Piperacillin/Tazobactam 3.375 GM in D5% in Water (Mini-Bag+) 100 ML IVPB SCH ×2 (02:45→12:09)
[2017-01-23] MEDS: *HR* OxyCODONE/APAP 10/325 TABLET PO PRN ×2 (03:25→22:53)
[2017-01-23 03:26] LABS: Acinetobacter baumannii by PCR Not Detected (Not Detect); Candida albicans by PCR Not Detected (Not Detect); Candida glabrata by PCR Not Detected (Not Detect); Candida krusei by PCR Not Detected (Not Detect); Candida parapsilosis by PCR Not Detected (Not Detect); Candida tropicalis by PCR Not Detected (Not Detect); Enterococcus by PCR Not Detected (Not Detect); Escherichia coli by PCR Not Detected (Not Detect); Klebsiella oxytoca by PCR Not Detected (Not Detect); Klebsiella pneumoniae by PCR Not Detected (Not Detect); Pseudomonas aeruginosa by PCR Not Detected (Not Detect); Serratia marcescens by PCR Not Detected (Not Detect); Staphylococcus aureus by PCR ***DETECTED*** (Not Detect); Streptococcus agalactiae(B)PCR Not Detected (Not Detect); Streptococcus by PCR Not Detected (Not Detect); Streptococcus pneumoniae PCR Not Detected (Not Detect); Streptococcus pyogenes (A) PCR Not Detected (Not Detect); blaKPC Carbapenem-Resist Gene Not Detected (Not Detect); mecA Methicillin-Resist Gene Not Detected (Not Detect); vanA/B Vancomycin-Resist Genes Not Detected (Not Detect)
[2017-01-23 06:45] LABS: Basophils % 0.2 %; Eosinophils % 0.1 %; Red Cell Distribution Width 18.2 % (11.5-14.5)
[2017-01-23 06:47] LABS: Hematocrit 37.2 % (37.5-50.1); Hemoglobin 11.2 g/dL (12.9-16.9); Immature Granulocytes % 0.8 % (0-4); Immature Platelets 12.6 % (1.1-6.1); Lymphocytes # 0.5 K/mcL (0.6-4.6); Mean Corpuscular HGB Conc 30.1 g/dL (31.6-35.5); Mean Corpuscular Hemoglobin 27.5 pg (28.0-33.3); Mean Corpuscular Volume 91.4 fL (83.0-100.0); Mean Platelet Volume 12.3 fL (9.4-12.4); Monocytes % 7.9 %; Neutrophils # 11.4 K/mcL (1.6-8.9); Nucleated Red Blood Cells 0.2 /100 WBC (0); Red Blood Count 4.07 M/mcL (4.19-5.50)
[2017-01-23 06:59] LABS: Platelet Count 74 K/mcL (140-400)
[2017-01-23 07:00] LABS: Bilirubin,Total 1.6 mg/dL (0.2-1.2); Calcium 9.3 mg/dL (8.6-10.8); Total Protein 7.3 g/dL (6.0-8.3)
[2017-01-23 07:01] LABS: Platelet Estimate Decreased (Normal)
[2017-01-23 07:02] LABS: Potassium 4.8 mEq/L (3.5-4.5)
[2017-01-23 07:53] LABS: Thyroid Stimulating Hormone 1.069 mcIU/mL (0.350-4.840)
[2017-01-23 07:56] LABS: Vancomycin,Random 26.7 mcg/mL
[2017-01-23] MEDS: *HR* Heparin 5,000 UNIT/ML VIAL SQ SCH ×3 (07:58→22:46)
[2017-01-23] MEDS: Insulin LISPRO 300 UNITS/3 ML VIAL SQ SCH ×7 (08:05→21:46)
[2017-01-23] MEDS: Famotidine 20 MG/2 ML VIAL IVP SCH ×2 (08:07→17:19)
[2017-01-23 08:30] LABS: Albumin 3.4 g/dL (3.5-5.0); Albumin/Globulin Ratio 0.9 (1.1-2.2); Globulin 3.9 g/dL (2.4-3.5)
[2017-01-23] MEDS: Pregabalin 50 MG CAPSULE PO SCH ×3 (08:53→21:46)
[2017-01-23] MEDS: Calcium Acetate 667 MG CAPSULE PO SCH ×3 (08:53→22:45)
[2017-01-23] MEDS: Ammonium Lactate 30 APPL/225 GM BOTTLE TP SCH ×2 (08:53→22:46)
[2017-01-23] MEDS: (Fish Oil 500 Mg Soft) PO SCH (08:54)
--- NOTE | 2017-01-23 09:29 | Nephrology Consult Note ---
Date of Encounter: 01/23/17 Time of Encounter: 08:35 Assessment and Plan (1) End stage renal disease on dialysis Current Visit: No Status: Chronic Afib with RVR, on amiodorone. Cultures pending, empiric Vanc and Zosyn. ESRD- no immediate need for HD today. Will follow. History of Present Illness - Reason for Consult end stage renal disease - History of Present Illness Mr. Hatch is a 46 year old male with ESRD who dialyzes at [facility]. Last dialysis yesterday. Other PMH- cardiomyopathy, systolic CHF with EF 15-20% , COPD, DM, hypertension, and hyperlipidemia. Mr. Hatch presented to [place] from dialysis center. At the end of the dialysis session patient went into A. fib RVR , AR 150 and became confused. Cardizem drip started, patient became hypotensive and placed on Amiodorone drip. Labs WBC 15, lactic acid 1.6, temp 99.5. Empiric Vanc, Zosyn started, cultures pending. CT abd/pelvis suggests acute pancreatitis, similar finding was present on the prior study. CT chest negative. Mr. Hatch admitted having chills at home and nursing staff today states experienced chills last night with temp 100.2. Also having reproducable left posterior shoulder pain and currently has warming pad to area. This morning Mr. Hatch is not sure why he is in hospital and wants to go home. "My heart rate is never below 130." He admits to non compliance of amiodorone at home. His LE edema is at patients baseleine, 1-2+ with mild intact blistering. No erythema. He denies chest pain, SOB, N/V or diarrhea. Past Med Surg Social Fam HX - Past Medical History Medical history: arthritis, atrial fibrillation, cardiomyopathy, CHF, COPD, diabetes, dialysis, GERD, hyperlipidemia, hypertension, osteoporosis, renal disease, other Psychiatric history: anxiety, depression, other - Past Surgical History Surgical History: herniorrhaphy, vascular surgery, other - Social History Smoking Status: Current every day smoker Smokeless Tobacco Status: No Alcohol use: none, unknown Drug use: marijuana, other - Family History Father Living Status: Hx Family Cardiac Disorders: No Hx Family Respiratory Disorders: No Hx Family Cancer: No Hx Family GI Disorders: No Hx Family Endocrine Disorder: No Hx Family Neuromuscular Disorders: No Hx Family Neurologic Disorders: No Hx Family HEENT Disorders: No Hx Family Autoimmune Disorders: No Mother Adopted: [place]: CARLOS MANUEL Age: 77 Living Status: Still Living Hx Family Cardiac Disorders: Yes Hx Family Endocrine Disorder: Yes Medications and Allergies [place] Oil/[place]-3 Fatty Acids [Fish Oil 500 mg Softgel] 1 cap PO DAILY #0 [History] Cinacalcet HCl [Sensipar] 120 mg PO DAILY 09/02/16 [History] Budesonide/Formoterol 160/4.5 [Symbicort 160/4.5] 2 puff IH BIDR PRN 11/16/16 [ History] Amiodarone [Cordarone] 200 mg PO BID 01/22/17 [History] Ammonium Lactate [Amlactin] 1 appl TP BID 01/22/17 [History] Calcium Acetate [Phos-LO] 2,668 mg PO TID 01/22/17 [History] Carvedilol [Coreg] 50 mg PO BID 01/22/17 [History] Pregabalin [Lyrica] 100 mg PO TID 01/22/17 [History] Rosuvastatin Calcium [Rosuvastatin Calcium] 20 mg PO DAILY 01/22/17 [History] 3 Allergy/AdvReac Type Severity Reaction Status Date / Time hydrocodone [From [place]] Allergy Intermediate Hives Verified 09/29/16 16:59 lanolin AdvReac Swelling Verified 11/18/16 10:51 [From [employer]ri-L[employer] S[facility] of the Eye mineral oil AdvReac Swelling Verified 11/18/16 10:50 [From [employer] S[facility] of the Eye petrolatum,white AdvReac Swelling Verified 11/18/16 10:50 [From Lacri-[employer] S[facility] of the Eye Review of Systems All Systems: reviewed and no additional remarkable complaints except as stated Exam - Vital Signs Vital signs: Initial Vital Signs Pulse Resp BP Pulse Ox 183 28 204/174 100 01/22/17 15:18 01/22/17 15:18 01/22/17 15:18 01/22/17 15:18 Vital Signs - Last 8 Hours Temp Pulse Resp BP Pulse Ox 01/23/17 07:49 100.2 F H 149 18 92/70 91 01/23/17 04:30 152 01/23/17 03:53 98.8 F 143 18 114/35 92 Intake and Output 01/22/17 01/23/17 01/23/17 23:59 07:59 15:59 Intake Total 154 / 442 950 / 950 Balance 154 / 442 950 / 950 Intake: IV Fluids 154 / 154 950 / 950 Amiodarone Drip Premix 50 / 50 350 / 350 360mg/200mL 360 mg In 200 ml @ 1 MG/MIN 33.333 mls /hr IVC ONCE ONE Rx#: [id number] Magnesium Sulfate 2 GM In 104 / 104 Dextrose 5% 100 ML @ 100 mls/hr IVPB ONCE ONE Rx# :[id number] Zosyn 3.375 GM In 100 / 100 Dextrose 5% (Minibag+) 100 ML 100 ML @ 25 mls/hr IVPB Q12H [place] Rx#: [id number] Vancocin 1,750 MG In 500 / 500 Dextrose 5% 500 ML @ 333. 34 mls/hr IVPB ONCE ONE Rx#:[id number] Other: Weight 116.9 kg Blood Glucose* 244 143 Results - Lab Results 01/23/17 06:33 01/23/17 06:33 Most recent lab results Calcium 9.3 mg/dL (8.6-10.8) 01/23/17 06:33 Phosphorus 4.2 mg/dL (2.3-4.7) 01/22/17 15:27 Magnesium 2.0 mg/dL (1.6-2.6) 01/23/17 06:33 Consult Discharge Plan - Plan Referrals: Arthur Pozo MD [Primary Care Provider] -
[2017-01-23] MEDS: 0.9 % Sodium Chloride 500 ML IVC SCH ×2 (10:31→14:19)
--- NOTE | 2017-01-23 11:45 | Internal Med Progress Note ---
<Juancho Cano Naman - Last Filed: 01/23/17 17:13> Date of Encounter: 01/23/17 Time of Encounter: 11:26 - Assessment and plan (1) Severe sepsis Current Visit: Yes Status: Acute Assessment and plan: Mr. Hatch was admitted with atrial fibrillation with rapid ventricular rate, hypotension, leukocytosis of 15, neutrophil count of 13.6 and hypoxia. Lactic acid was 1.6 and is now down to 1.0 - Continues to have leukocytosis yet slightly improved - Continues to be hypotensive - Blood cultures demonstrate gram-positive cocci, PCR negative for Mec Gene - Chronically elevated alkaline phosphate, slightly elevated likely in the setting of sepsis. We will monitor. Plan: - Continue vancomycin and Zosyn - Continue ICU stepdown care - Continue IV fluids and volume support - Continue IV rate control with amiodarone - will likely need TTE versus QUIQUE for further evaluation for valvular pathology (2) Gram-positive bacteremia Current Visit: Yes Status: Acute Assessment and plan: Patient presented with severe sepsis, blood cultures gram-positive cocci with PCR demonstrating Staphylococcus aureus findings negative for Mec gene - Continue IV vancomycin and Zosyn until sensitivity results for confirmation of negative for MRSA (3) Diabetes mellitus type 2, uncontrolled, with complications Current Visit: No Status: Chronic Assessment and plan: Patient is a known uncontrolled type II diabetic insulin-dependent. - Patient is hyperglycemic since admission likely exacerbated with setting of sepsis with gram-positive bacteremia. Plan: -Continue before meals at bedtime glucose checks - Continue Levemir 18 units subcutaneous at bedtime - Continue Humalog 6 units 3 times a day with meals - Continue medium dose insulin sliding scale. Qualifiers: Diabetes mellitus detention insulin use: with detention use Qualified Code( s): E11.8 - Type 2 diabetes mellitus with unspecified complications; E11.65 - Type 2 diabetes mellitus with hyperglycemia; Z79.4 - group home (current) use of insulin (4) Nonischemic cardiomyopathy Current Visit: No Status: Chronic Assessment and plan: Patient has known systolic heart failure with ejection fraction of 15-20%, chest CT is cardiomegaly with small pleural effusion - Originally was started on Cardizem for nature fibrillation with rapid ventricular rate resulting in further hypotension, switched to amiodarone drip - Continue to monitor strict intake and output recording - Daily weights - Cardiac monitoring - Strict cardiac/renal diet - 2 L fluid restriction orally (5) Anemia Current Visit: No Status: Chronic Assessment and plan: Chronic normocytic anemia in the setting of end-stage renal disease on hemodialysis - Stable Qualifiers: Anemia type: other cause Other causes of anemia: chronic disease, other Qualified Code(s): D63.8 - Anemia in other chronic diseases classified elsewhere (6) COPD exacerbation Current Visit: No Status: Acute Assessment and plan: Known history of COPD with recurrent exacerbations. Currently in no acute exacerbation, continue home medications (7) Atrial fibrillation with RVR Current Visit: Yes Status: Acute Assessment and plan: Patient presented with atrial fibrillation with rapid ventricular rate - Cardizem further worsened hypotension and was discontinued - Patient tolerating amiodarone drip but continues to have rapid ventricular rate. - Continue cardiac monitoring - Suspect secondary to hypovolemia, sepsis with gram-positive bacteremia in the setting of severely reduced ejection fraction - We will continue to adjust amiodarone for rate control, will consider digoxin if no improvement in rate - Patient was not on anticoagulation at home. Will start aspirin (8) Leukocytosis Current Visit: Yes Status: Acute Assessment and plan: Improving likely secondary to gram-positive bacteremia. - Continue plan as discussed above Qualifiers: Leukocytosis type: other Qualified Code(s): D72.828 - Other elevated white blood cell count (9) Elevated troponin I level Current Visit: Yes Status: Acute Assessment and plan: Elevated troponin from 0.09-0.15 in the setting of atrial fibrillation with rapid ventricular rate and end-stage renal disease on hemodialysis. - We will continue to monitor, and if significant change will consult cardiology. (10) End stage renal disease on dialysis Current Visit: No Status: Chronic Assessment and plan: 46-year-old male with known end-stage renal disease on hemodialysis Wednesday. Underwent hemodialysis prior to rapid ventricular rate was transferred to Hospital for continued care. - Nephrology consulted and is involved in patient care. - Appreciate their further recommendations. (11) DVT prophylaxis Current Visit: No Status: Acute Assessment and plan: Subjective Cam heparin 5000 units every 8 hours. - Subjective Interval history: Mr. Hatch 46-year-old male seen and evaluated patient bedside this morning. He is alert awake oriented and interactive. He denies any pain asked when he can go home. When asked if he was feeling dizzy or lightheaded he said that he is feeling more tired than usual. He denies any fevers, chills, sweating, chest pain, palpitations, shortness of breath, abdominal pains, nausea vomiting diarrhea constipation or abnormal swelling outside of his normal in his lower extremities. After discussion regarding his heart rate, blood pressure and blood culture findings he had no further questions. - Constitutional Vitals: Temp Pulse Resp BP Pulse Ox 100.2 F H 146 18 92/70 91 01/23/17 07:49 01/23/17 08:00 01/23/17 07:49 01/23/17 07:49 01/23/17 07:49 General appearance: Present: cooperative, A&O X 3, pleasant Exam: General: Patient alert yet slightly sleepy, awake, oriented 3, interactive, in no acute distress HEENT: Normocephalic, atraumatic, pupils equal reactive to light, nasal cavity patent and open septum median position, oral mucosa moist, uvula midline, neck supple trachea midline no palpable lymphadenopathy, no thyromegaly. Chest: Symmetric bilateral correlating with respiratory effort, effort nonlabored. Cardiac: Irregularly irregular heart rate and rhythm. no bruits appreciated bilateral carotids, Radial pulses 2+ bilatera bilateral. Respiratory: Diffuse rhonchi appreciated all lung hurtado Abdomen: Obese Soft, nontender, positive bowel sounds, no palpable masses appreciated on examination Extremities: Symmetric bilateral, bilateral lower extremities without erythema but does have 2+ pitting edema with weeping upon palpation, patient moving all 4 extremities spontaneously. Neurologic: No focal deficits appreciated on examination. Face symmetric, muscle strength symmetric bilateral upper and lower extremities. Internal Medicine: Result - Labs CBC & Chem 7: 01/23/17 06:33 01/23/17 06:33 Labs: Short CBC 01/23/17 Range/Units 06:33 WBC 13.1 H (4.3-11.1) K/mcL Hgb 11.2 L (12.9-16.9) g/dL Hct 37.2 L (37.5-50.1) % Plt Count 74 L (140-400) K/mcL Neutrophils # 11.4 H (1.6-8.9) K/mcL BMP 01/23/17 06:33 Sodium 135 L Potassium 4.8 H D Chloride 96 L Carbon Dioxide 25 BUN 37 H D Creatinine 6.51 H Glucose 168 H Calcium 9.3 Cardiac Enzymes 01/22/17 01/23/17 Range/Units 21:06 06:33 Troponin I 0.12 H* 0.15 H* (0-0.03) ng/mL Liver Function 01/23/17 Range/Units 06:33 Total Bilirubin 1.6 H (0.2-1.2) mg/dL AST 19 (5-34) Units/L ALT 11 (0-55) Units/L Alkaline Phosphatase 440 H (38-126) Units/L Albumin 3.4 L (3.5-5.0) g/dL - ABG Interpretation ABG results: PT/INR, D-dimer PT 16.7 Seconds (9.4-12.1) H 01/22/17 15:27 Consult Discharge Plan - Plan Referrals: Arthur Pozo MD [Primary Care Provider] - <Alex Lord - Last Filed: 01/23/17 18:49> Date of Encounter: 01/23/17 - Assessment and plan (1) Severe sepsis Current Visit: Yes Status: Acute (2) Gram-positive bacteremia Current Visit: Yes Status: Acute (3) Atrial fibrillation Current Visit: No Status: Acute Qualifiers: Atrial fibrillation type: paroxysmal Qualified Code(s): I48.0 - Paroxysmal atrial fibrillation (4) Hypotension Current Visit: No Status: Acute Qualifiers: Hypotension type: other hypotension type Qualified Code(s): I95.89 - Other hypotension (5) Diabetes Current Visit: No Status: Chronic Qualifiers: Diabetes mellitus type: type 2 Diabetes mellitus complication status: with kidney complications Diabetes mellitus complication detail: with chronic kidney disease 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 use Chronic kidney disease stage: on chronic dialysis Qualified Code(s): E11.22 - Type 2 diabetes mellitus with diabetic chronic kidney disease; N18.6 - End stage renal disease; Z79.4 - group home (current) use of insulin; Z99.2 - Dependence on renal dialysis (6) Medical non-compliance Current Visit: No Status: Chronic (7) Obesity (BMI 30-39.9) Current Visit: No Status: Chronic - Constitutional Vitals: Temp Pulse Resp BP Pulse Ox 98.9 F 130 18 82/56 96 01/23/17 17:06 01/23/17 17:06 01/23/17 17:06 01/23/17 17:06 01/23/17 17:06 Internal Medicine: Result - Labs CBC & Chem 7: 01/23/17 06:33 01/23/17 06:33 Labs: Short CBC 01/23/17 Range/Units 06:33 WBC 13.1 H (4.3-11.1) K/mcL Hgb 11.2 L (12.9-16.9) g/dL Hct 37.2 L (37.5-50.1) % Plt Count 74 L (140-400) K/mcL Neutrophils # 11.4 H (1.6-8.9) K/mcL BMP 01/23/17 06:33 Sodium 135 L Potassium 4.8 H D Chloride 96 L Carbon Dioxide 25 BUN 37 H D Creatinine 6.51 H Glucose 168 H Calcium 9.3 Cardiac Enzymes 01/22/17 01/23/17 01/23/17 Range/Units 21:06 06:33 12:40 Troponin I 0.12 H* 0.15 H* 0.13 H* (0-0.03) ng/mL Liver Function 01/23/17 Range/Units 06:33 Total Bilirubin 1.6 H (0.2-1.2) mg/dL AST 19 (5-34) Units/L ALT 11 (0-55) Units/L Alkaline Phosphatase 440 H (38-126) Units/L Albumin 3.4 L (3.5-5.0) g/dL - ABG Interpretation ABG results: PT/INR, D-dimer PT 16.7 Seconds (9.4-12.1) H 01/22/17 15:27 - Attending Attestation I examined this patient and my medical decision-making was reviewed with the Resident Physician on 01/23/17. I agree with the documented findings, disposition and treatment plan as described except to the extent set forth below. Mr. Hatch is currently admitted for acute rapid a fib and noncompliance. He remains moderate to high risk due to potential for worsening respiratory and cardiac status. Mr Hatch is resting comfortably. No CP or SOB. Heart rate still elevated. No fever or chills. On IV amiodarone at this time. Exam Alert. Heart irreg and tachy No wheeze Abd soft Edema present I/P 1. A fib 2. Noncompliance 3. ESRD Further diagnoses and plan as above.
[2017-01-23] MEDS ORDERED: 0.9 % Sodium Chloride 500 ML IVC ONE (12:17)
[2017-01-23] MEDS: *HR* Amiodarone 200 MG TABLET PO SCH ×2 (14:19→21:46)
[2017-01-23] MEDS: Aspirin 81 MG TAB.CHEW PO SCH (14:19)
[2017-01-24] MEDS: Piperacillin/Tazobactam 3.375 GM in D5% in Water (Mini-Bag+) 100 ML IVPB SCH ×3 (01:17→12:27)
[2017-01-24] MEDS: Famotidine 20 MG/2 ML VIAL IVP SCH ×2 (06:16→16:54)
[2017-01-24] MEDS: Insulin LISPRO 300 UNITS/3 ML VIAL SQ SCH ×9 (07:38→22:18)
[2017-01-24] MEDS: *HR* Heparin 5,000 UNIT/ML VIAL SQ SCH ×3 (07:38→22:20)
--- NOTE | 2017-01-24 08:33 | Nephrology Progress Note ---
Date of Encounter: 01/24/17 Time of Encounter: 08:00 - Assessment and Plan (1) End stage renal disease on dialysis Current Visit: No Status: Chronic Afib with RVR, on amiodorone, AR 130's. Preliminary blood cultures, gm pos cocci , on Vanc and Zosyn. ESRD- HD tomorrow, keeping MWF schedule. Subjective Interval history: Upset about being in hospital, wants to go home. Explained positive blood cultures, need for antibiotics. Verbalizing may leave AMA. Objective - Vital Signs Vital signs: Vital Signs Temp Pulse Resp BP Pulse Ox 01/24/17 06:55 98.3 F 132 14 105/85 98 01/24/17 04:00 135 01/24/17 03:30 97.8 F 140 18 81/67 95 01/24/17 00:10 138 01/23/17 22:40 98.1 F 135 18 98/64 97 01/23/17 20:10 143 97 01/23/17 19:10 98.1 F 132 18 84/65 94 01/23/17 17:06 98.9 F 130 18 82/56 96 01/23/17 14:36 137 24 75/60 96 01/23/17 14:33 132 78/70 01/23/17 13:00 82/67 01/23/17 12:08 100.4 F H 144 18 105/70 95 01/23/17 12:00 150 105/70 01/23/17 11:00 145 100/32 01/23/17 10:30 159 88/68 01/23/17 10:24 147 59/23 01/23/17 10:00 149 60/57 95 01/23/17 09:00 139 95/85 01/23/17 08:45 167 16 89/64 96 Intake and Output 01/23/17 01/24/17 01/24/17 23:59 07:59 15:59 Intake Total 340 / 340 Balance 340 / 340 Intake: IV Fluids 100 / 100 Zosyn 3.375 GM In 100 / 100 Dextrose 5% (Minibag+) 100 ML 100 ML @ 25 mls/hr IVPB Q12H [facility] Rx#: [id number] Oral 240 / 240 Other: Meal 2 white [place] sliders Percent of Meal Consumed 100% Stool Size Large Stool Consistency loose Stool Color Brown # Bowel Movements 1 Weight 119.9 kg Blood Glucose* 221 73 Patient Weight 01/24/17 23:59 Weight 119.9 kg - General Appearance General appearance: Present: well-developed, well-nourished, appears started age , obese EENT: Present: mucous membranes moist Neck: Present: no JVD Respiratory: Present: clear Cardiology: Present: edema, irregular rhythm Additional Comments: 1+, skin shiny, taut, intact blistering Gastrointestinal: Present: normoactive bowel sounds, no tenderness, obese Integumentary: Present: warm and dry Neurologic: Present: alert and oriented x3 Psychiatric: Present: mood/affect appropriate, cooperative - Lab 01/23/17 06:33 01/23/17 06:33 Most recent lab results Calcium 9.3 mg/dL (8.6-10.8) 01/23/17 06:33 Phosphorus 4.2 mg/dL (2.3-4.7) 01/22/17 15:27 Magnesium 2.0 mg/dL (1.6-2.6) 01/23/17 06:33 Consult Discharge Plan - Plan Referrals: Arthur Pozo MD [Primary Care Provider] -
[2017-01-24] MEDS: Pregabalin 50 MG CAPSULE PO SCH ×3 (09:18→22:19)
[2017-01-24] MEDS: *HR* Amiodarone 200 MG TABLET PO SCH ×2 (09:18→22:19)
[2017-01-24] MEDS: Ammonium Lactate 30 APPL/225 GM BOTTLE TP SCH ×2 (09:20→22:19)
[2017-01-24] MEDS: Calcium Acetate 667 MG CAPSULE PO SCH ×3 (09:20→17:40)
[2017-01-24] MEDS: Aspirin 81 MG TAB.CHEW PO SCH (09:20)
[2017-01-24] MEDS: (Fish Oil 500 Mg Soft) PO SCH (09:20)
[2017-01-24 11:00] LABS: Basophils % 0.4 %; Immature Granulocytes % 0.4 % (0-4)
[2017-01-24 11:02] LABS: Eosinophils # 0.1 K/mcL (0.0-0.6); Eosinophils % 0.7 %; Hemoglobin 11.2 g/dL (12.9-16.9); Immature Platelets 15.4 % (1.1-6.1); Lymphocytes # 1.1 K/mcL (0.6-4.6); Lymphocytes % 15.3 %; Mean Corpuscular HGB Conc 30.3 g/dL (31.6-35.5); Mean Corpuscular Hemoglobin 27.1 pg (28.0-33.3); Mean Corpuscular Volume 89.4 fL (83.0-100.0); Mean Platelet Volume 13.1 fL (9.4-12.4); Monocytes # 1.1 K/mcL (0.0-1.3); Monocytes % 14.8 %; Red Blood Count 4.14 M/mcL (4.19-5.50); Segmented Neutrophils % 68.4 %
[2017-01-24 11:04] LABS: Neutrophils # 4.9 K/mcL (1.6-8.9); Platelet Count 71 K/mcL (140-400)
--- NOTE | 2017-01-24 11:46 | Internal Med Progress Note ---
<Juancho Cano Naman - Last Filed: 01/24/17 11:43> Date of Encounter: 01/24/17 Time of Encounter: 10:00 - Assessment and plan (1) Severe sepsis Current Visit: Yes Status: Acute Assessment and plan: Mr. Hatch was admitted with atrial fibrillation with rapid ventricular rate, hypotension, leukocytosis of 15, neutrophil count of 13.6 and hypoxia. Lactic acid was 1.6 and down to 1.0 - Continues to have leukocytosis yet slightly improved - Continues to be hypotensive - Blood cultures demonstrate gram-positive cocci, PCR negative for Mec Gene - Chronically elevated alkaline phosphate, slightly elevated likely in the setting of sepsis. We will monitor. Plan: - Continue vancomycin and Zosyn - Transferred to general medical floor - Continue IV fluids and volume support - Continue oral amiodarone - will likely need TTE versus QUIQUE for further evaluation for valvular pathology (2) Gram-positive bacteremia Current Visit: Yes Status: Acute Assessment and plan: Patient presented with severe sepsis, blood cultures gram-positive cocci with PCR demonstrating Staphylococcus aureus findings negative for Mec gene - Continue IV vancomycin and Zosyn until sensitivity results for confirmation of negative for MRSA - Laboratories having difficulty obtaining peripheral venous stick repeat blood cultures at this time. May need to obtain second set of cultures and dialysis tomorrow. (3) Diabetes mellitus type 2, uncontrolled, with complications Current Visit: No Status: Chronic Assessment and plan: Patient is a known uncontrolled type II diabetic insulin-dependent. - Patient is hyperglycemic since admission likely exacerbated with setting of sepsis with gram-positive bacteremia. Plan: -Continue before meals at bedtime glucose checks - Continue Levemir 18 units subcutaneous at bedtime - Continue Humalog 6 units 3 times a day with meals - Continue medium dose insulin sliding scale. 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 Qualified Code( s): E11.8 - Type 2 diabetes mellitus with unspecified complications; E11.65 - Type 2 diabetes mellitus with hyperglycemia; Z79.4 - watermaster (current) use of insulin (4) Nonischemic cardiomyopathy Current Visit: No Status: Chronic Assessment and plan: Patient has known systolic heart failure with ejection fraction of 15-20%, chest CT is cardiomegaly with small pleural effusion - Originally was started on Cardizem for nature fibrillation with rapid ventricular rate resulting in further hypotension, switched to amiodarone drip - Continue to monitor strict intake and output recording - Daily weights - Cardiac monitoring - Strict cardiac/renal diet - 2 L fluid restriction orally (5) Anemia Current Visit: No Status: Chronic Assessment and plan: Chronic normocytic anemia in the setting of end-stage renal disease on hemodialysis - Stable Qualifiers: Anemia type: other cause Other causes of anemia: chronic disease, other Qualified Code(s): D63.8 - Anemia in other chronic diseases classified elsewhere (6) COPD exacerbation Current Visit: No Status: Acute Assessment and plan: Known history of COPD with recurrent exacerbations. Currently in no acute exacerbation, continue home medications - CPAP/BiPAP as patient does have also obstructive sleep apnea. (7) Atrial fibrillation with RVR Current Visit: Yes Status: Acute Assessment and plan: Patient presented with atrial fibrillation with rapid ventricular rate - Cardizem further worsened hypotension and was discontinued - Patient tolerating amiodarone drip but continues to have rapid ventricular rate. - Continue cardiac monitoring - Suspect secondary to hypovolemia, sepsis with gram-positive bacteremia in the setting of severely reduced ejection fraction - Continue oral amiodarone, blood pressure and rate improved no need for digitoxin at this time - Patient was not on anticoagulation at home. - Continue aspirin (8) Leukocytosis Current Visit: Yes Status: Acute Assessment and plan: Resolved. likely secondary to gram-positive bacteremia. - Continue plan as discussed above Qualifiers: Leukocytosis type: other Qualified Code(s): D72.828 - Other elevated white blood cell count (9) Elevated troponin I level Current Visit: Yes Status: Acute Assessment and plan: Elevated troponin from 0.09-0.15 in the setting of atrial fibrillation with rapid ventricular rate and end-stage renal disease on hemodialysis. - We will continue to monitor, and if significant change will consult cardiology. (10) End stage renal disease on dialysis Current Visit: No Status: Chronic Assessment and plan: 46-year-old male with known end-stage renal disease on hemodialysis Wednesday. Underwent hemodialysis prior to rapid ventricular rate was transferred to Hospital for continued care. - Nephrology consulted and is involved in patient care. - Appreciate their further recommendations. (11) DVT prophylaxis Current Visit: No Status: Acute Assessment and plan: Subcutaneous heparin 5000 units every 8 hours. - Subjective Interval history: Mr. Hatch 46-year-old male seen and evaluated patient bedside this morning. He is alert awake oriented and interactive and expressing that he is very upset about being in the hospital. He says he might leave AGAINST MEDICAL ADVICE, despite our concerns about his current medical condition. He states that his heart rate and blood pressure are where they normally are. - Constitutional Vitals: Temp Pulse Resp BP Pulse Ox 98.3 F 137 14 105/85 98 01/24/17 06:55 01/24/17 09:51 01/24/17 06:55 01/24/17 06:55 01/24/17 09:51 General appearance: Present: cooperative, A&O X 3, pleasant Exam: General: Patient alert, awake, oriented 3, interactive, in no acute distress HEENT: Normocephalic, atraumatic, pupils equal reactive to light, nasal cavity patent and open septum median position, oral mucosa moist, uvula midline, neck supple trachea midline no palpable lymphadenopathy, no thyromegaly. Chest: Symmetric bilateral correlating with respiratory effort, effort nonlabored. Cardiac: Irregularly irregular heart rate and rhythm. no bruits appreciated bilateral carotids, Radial pulses 2+ bilatera bilateral. Respiratory: Clear to auscultation bilaterally. Abdomen: Obese, Soft, nontender, positive bowel sounds, no palpable masses appreciated on examination Extremities: Symmetric bilateral, bilateral lower extremities without erythema but does have 2+ pitting edema with weeping upon palpation, patient moving all 4 extremities spontaneously. Neurologic: No focal deficits appreciated on examination. Face symmetric, muscle strength symmetric bilateral upper and lower extremities. Internal Medicine: Result - Labs CBC & Chem 7: 01/24/17 10:52 01/23/17 06:33 Labs: Short CBC 01/24/17 Range/Units 10:52 WBC 7.2 (4.3-11.1) K/mcL Hgb 11.2 L (12.9-16.9) g/dL Hct 37.0 L (37.5-50.1) % Plt Count 71 L (140-400) K/mcL Neutrophils # 4.9 (1.6-8.9) K/mcL Cardiac Enzymes 01/23/17 Range/Units 12:40 Troponin I 0.13 H* (0-0.03) ng/mL - ABG Interpretation ABG results: PT/INR, D-dimer PT 16.7 Seconds (9.4-12.1) H 01/22/17 15:27 Consult Discharge Plan - Plan Referrals: Arthur Pozo MD [Primary Care Provider] - <PopAlex A - Last Filed: 01/24/17 18:31> Date of Encounter: 01/24/17 - Assessment and plan (1) Sepsis Current Visit: Yes Status: Suspected Assessment and plan: On IV abx - random Vanc OK. Qualifiers: Sepsis type: methicillin susceptible Staphylococcus aureus Qualified Code(s ): A41.01 - Sepsis due to Methicillin susceptible Staphylococcus aureus (2) Atrial fibrillation Current Visit: No Status: Acute Qualifiers: Atrial fibrillation type: persistent Qualified Code(s): I48.1 - Persistent atrial fibrillation (3) Hypotension Current Visit: No Status: Acute Qualifiers: Hypotension type: other hypotension type Qualified Code(s): I95.89 - Other hypotension (4) Diabetes Current Visit: No Status: Chronic Qualifiers: Diabetes mellitus type: type 2 Diabetes mellitus complication status: with kidney complications Diabetes mellitus complication detail: with chronic kidney disease Diabetes mellitus assisted insulin use: with assisted use Chronic kidney disease stage: on chronic dialysis Qualified Code(s): E11.22 - Type 2 diabetes mellitus with diabetic chronic kidney disease; N18.6 - End stage renal disease; Z79.4 - detention (current) use of insulin; Z99.2 - Dependence on renal dialysis (5) Medical non-compliance Current Visit: No Status: Chronic (6) Obesity (BMI 30-39.9) Current Visit: No Status: Chronic - Constitutional Vitals: Temp Pulse Resp BP Pulse Ox 97.5 F L 123 19 94/52 92 01/24/17 15:14 01/24/17 17:44 01/24/17 15:14 01/24/17 15:14 01/24/17 15:14 Internal Medicine: Result - Labs CBC & Chem 7: 01/24/17 10:52 01/24/17 12:24 Labs: Short CBC 01/24/17 Range/Units 10:52 WBC 7.2 (4.3-11.1) K/mcL Hgb 11.2 L (12.9-16.9) g/dL Hct 37.0 L (37.5-50.1) % Plt Count 71 L (140-400) K/mcL Neutrophils # 4.9 (1.6-8.9) K/mcL BMP 09/17/17 12:24 Sodium 134 L Potassium 5.2 H Chloride 96 L Carbon Dioxide 23 BUN 63 H D Creatinine 8.95 H Glucose 138 H Calcium 7.4 L D Liver Function 01/24/17 Range/Units 12:24 Total Bilirubin 1.4 H (0.2-1.2) mg/dL AST 19 (5-34) Units/L ALT 11 (0-55) Units/L Alkaline Phosphatase 353 H (38-126) Units/L Albumin 2.8 L (3.5-5.0) g/dL - ABG Interpretation ABG results: PT/INR, D-dimer PT 16.7 Seconds (9.4-12.1) H 01/22/17 15:27 - Attending Attestation I examined this patient and my medical decision-making was reviewed with the Resident Physician on 01/24/17. I agree with the documented findings, disposition and treatment plan as described except to the extent set forth below. Mr. Hatch is currently admitted for rapid a fib and staph bacteremia. He remains high risk due to potential for worsening infectious status. Mr. Hatch has had multiple issues today. His IV is out. Cannot get another one in. Labs difficult to get. Can't get repeat blood cx. BP has been variable and heart rate remains high. No CP or SOB. No fever or chills. Exam Alert. Heart tachy and irregular No wheeze Edema present I/P 1. Staph bacteremia 2. hypotension 3. A fib Further diagnoses and plan as above. Will check echo. Blood cx in dialysis tomorrow. If no vegetation seen and can have Vanc in dialysis may be able to leave tomorrow or will leave AMA.
[2017-01-24] MEDS ORDERED: 0.9 % Sodium Chloride 500 ML IVC ONE (12:24)
[2017-01-24 12:48] LABS: Albumin 2.8 g/dL (3.5-5.0); Albumin/Globulin Ratio 0.7 (1.1-2.2); Bilirubin,Total 1.4 mg/dL (0.2-1.2); Calcium 7.4 mg/dL (8.6-10.8); Globulin 4.2 g/dL (2.4-3.5); Potassium 5.2 mEq/L (3.5-4.5)
[2017-01-24 12:59] LABS: Vancomycin,Random 18.8 mcg/mL
[2017-01-24] MEDS: *HR* OxyCODONE/APAP 10/325 TABLET PO PRN (13:54)
[2017-01-24] MEDS ORDERED: Vancomycin 1,000 MG in D5% in Water 250 ML IVPB ONE (16:00)
[2017-01-24] MEDS: Insulin DETEMIR 100 UNIT/ML X5UNITS SQ SCH (22:19)
[2017-01-25 04:52] LABS: Basophils % 0.5 %; Hemoglobin 11.3 g/dL (12.9-16.9); Lymphocytes % 17.6 %; Nucleated Red Blood Cells 0.3 /100 WBC (0)
[2017-01-25 04:54] LABS: Eosinophils # 0.1 K/mcL (0.0-0.6); Eosinophils % 1.5 %; Hematocrit 37.6 % (37.5-50.1); Immature Granulocytes % 0.2 % (0-4); Immature Platelets 17.1 % (1.1-6.1); Lymphocytes # 1.1 K/mcL (0.6-4.6); Mean Corpuscular HGB Conc 30.1 g/dL (31.6-35.5); Mean Corpuscular Hemoglobin 27.2 pg (28.0-33.3); Mean Corpuscular Volume 90.4 fL (83.0-100.0); Monocytes # 0.7 K/mcL (0.0-1.3); Neutrophils # 4.1 K/mcL (1.6-8.9); Red Blood Count 4.16 M/mcL (4.19-5.50); Red Cell Distribution Width 18.1 % (11.5-14.5); Segmented Neutrophils % 68.2 %
[2017-01-25 05:00] LABS: Platelet Count 84 K/mcL (140-400)
[2017-01-25 05:07] LABS: Albumin 2.8 g/dL (3.5-5.0); Albumin/Globulin Ratio 0.6 (1.1-2.2); Bilirubin,Total 1.3 mg/dL (0.2-1.2); Calcium 7.1 mg/dL (8.6-10.8); Globulin 4.4 g/dL (2.4-3.5); Potassium 4.9 mEq/L (3.5-4.5); Total Protein 7.2 g/dL (6.0-8.3)
[2017-01-25] MEDS: *HR* Heparin 5,000 UNIT/ML VIAL SQ SCH ×2 (07:32→13:21)
--- NOTE | 2017-01-25 08:23 | Nephrology Progress Note ---
Date of Encounter: 01/25/17 Time of Encounter: 08:00 - Assessment and Plan (1) End stage renal disease on dialysis Current Visit: No Status: Chronic Afib with RVR, AR 120's. Preliminary blood cultures, gm pos cocci, on Vanc and Zosyn. ESRD- HD today, keeping MWF schedule. Orders given. Subjective Interval history: Sitting on edge of bed. States used CPAP last night, first time since here and slept very well. No new complaints. Objective - Vital Signs Vital signs: Vital Signs Temp Pulse Resp BP Pulse Ox 01/25/17 07:33 97.8 F 128 16 95/47 100 01/25/17 05:09 97.6 F 132 18 95/63 94 01/25/17 05:00 125 01/25/17 00:30 121 01/24/17 23:50 97.7 F 120 18 96/84 97 01/24/17 21:43 17 98 01/24/17 20:25 115 01/24/17 19:45 97.9 F 126 18 104/60 97 01/24/17 17:44 123 01/24/17 15:14 97.5 F L 132 19 94/52 92 01/24/17 11:58 97.6 F 126 15 78/65 98 01/24/17 11:15 137 01/24/17 09:51 137 98 Intake and Output 01/24/17 01/25/17 01/25/17 23:59 07:59 15:59 Intake Total 480 / 480 Balance 480 / 480 Intake: Oral 480 / 480 Other: Meal Dinner Percent of Meal Consumed 100% Stool Size Moderate Stool Consistency loose Stool Color Brown # Bowel Movements 2 Blood Glucose* 184 145 - General Appearance General appearance: Present: well-developed, well-nourished, appears started age , obese EENT: Present: mucous membranes moist Neck: Present: no JVD Respiratory: Present: clear Cardiology: Present: edema, irregular rhythm Additional Comments: 1+,LE, skin taut, shiny Gastrointestinal: Present: normoactive bowel sounds, no tenderness Integumentary: Present: warm and dry Neurologic: Present: alert and oriented x3 Psychiatric: Present: mood/affect appropriate, cooperative - Lab 01/25/17 04:29 01/25/17 04:29 Most recent lab results Calcium 7.1 mg/dL (8.6-10.8) L 01/25/17 04:29 Phosphorus 4.2 mg/dL (2.3-4.7) 01/22/17 15:27 Magnesium 2.0 mg/dL (1.6-2.6) 01/23/17 06:33 Consult Discharge Plan - Plan Referrals: Arthur Pozo MD [Primary Care Provider] -
[2017-01-25] MEDS ORDERED: Lactobacillus 1 EACH CAP.SPRINK PO SCH (09:00)
[2017-01-25] MEDS: Calcium Acetate 667 MG CAPSULE PO SCH ×2 (09:24→13:20)
[2017-01-25] MEDS: Pregabalin 50 MG CAPSULE PO SCH (09:25)
[2017-01-25] MEDS: *HR* Amiodarone 200 MG TABLET PO SCH (09:25)
[2017-01-25] MEDS: Ammonium Lactate 30 APPL/225 GM BOTTLE TP SCH (09:25)
[2017-01-25] MEDS: Aspirin 81 MG TAB.CHEW PO SCH (09:25)
[2017-01-25] MEDS: Famotidine 20 MG/2 ML VIAL IVP SCH (09:25)
[2017-01-25] MEDS: Piperacillin/Tazobactam 3.375 GM in D5% in Water (Mini-Bag+) 100 ML IVPB SCH ×2 (09:26→13:20)
[2017-01-25] MEDS ORDERED: 0.9 % Sodium Chloride 250 ML IVC PRN (09:27)
[2017-01-25] MEDS ORDERED: 0.9 % Sodium Chloride 1,000 ML PRIME SCH (09:30)
[2017-01-25] MEDS: Insulin LISPRO 300 UNITS/3 ML VIAL SQ SCH ×4 (09:31→13:19)
[2017-01-25] MEDS: (Fish Oil 500 Mg Soft) PO SCH (09:32)
[2017-01-25] MEDS ORDERED: 0.9 % Sodium Chloride 2,000 ML ONE (13:15)
[2017-01-25 15:12] VITALS: BP 125/75
--- NOTE | 2017-01-25 16:41 | Discharge Summary ---
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: with long lines operator use Qualified Code( s): E11.8 - Type 2 diabetes mellitus with unspecified complications; E11.65 - Type 2 diabetes mellitus with hyperglycemia; Z79.4 - exterminator (current) use of insulin (4) Nonischemic cardiomyopathy Priority: Secondary Status: Chronic (5) Anemia Priority: Secondary Status: Chronic Qualifiers: Anemia type: other cause Other causes of anemia: chronic disease, other Qualified Code(s): D63.8 - Anemia in other chronic diseases classified elsewhere (6) COPD exacerbation Priority: Secondary Status: Acute (7) Atrial fibrillation with RVR Priority: Secondary Status: Acute (8) Leukocytosis Priority: Secondary Status: Acute Qualifiers: Leukocytosis type: other Qualified Code(s): D72.828 - Other elevated white blood cell count (9) Elevated troponin I level Priority: Secondary Status: Acute (10) End stage renal disease on dialysis Priority: Secondary Status: Chronic (11) DVT prophylaxis Priority: Secondary Status: Acute - Discharge Medications Prescriptions: Vancomycin HCl 750 mg IV QMWF #6 vial Home Medications: [place] Oil/Vega-3 Fatty Acids [Fish Oil 500 mg Softgel] 1 cap PO DAILY #0 [History] Cinacalcet HCl [Sensipar] 120 mg PO DAILY 09/02/16 [History] Budesonide/Formoterol 160/4.5 [Symbicort 160/4.5] 2 puff IH BIDR PRN 11/16/16 [ History] Amiodarone [Cordarone] 200 mg PO BID 01/22/17 [History] Ammonium Lactate [Amlactin] 1 appl TP BID 01/22/17 [History] Calcium Acetate [Phos-LO] 2,668 mg PO TID 01/22/17 [History] Carvedilol [Coreg] 50 mg PO BID 01/22/17 [History] Pregabalin [Lyrica] 100 mg PO TID 01/22/17 [History] Rosuvastatin Calcium 20 mg PO DAILY 01/22/17 [History] Vancomycin HCl 750 mg IV QMWF #6 vial 01/25/17 [Rx] Allergies/Adverse Reactions: 3 Allergy/AdvReac Type Severity Reaction Status Date / Time hydrocodone [From [place]] Allergy Intermediate Hives Verified 09/29/16 16:59 lanolin AdvReac Swelling Verified 11/18/16 10:51 [From [employer] S[facility] of the Eye mineral oil AdvReac Swelling Verified 11/18/16 10:50 [From [employer] [facility] of the Eye petrolatum,white AdvReac Swelling Verified 11/18/16 10:50 [From [employer] [facility] of the Eye Procedures/tests Complete & Pending: Procedures Performed prior 72 hours Category Date Time Status ECG 12 lead ECG [ECG] Routine Y 01/23/17 03:07 Completed EKG [ECG 12 lead ECG] [ECG] Stat Y 01/23/17 02:50 Completed EV echocardiogram Routine Y 01/25/17 11:50 Completed Date of admission: 01/22/17 18:40 Primary care physician: Arthur Pozo MD Consults: 01/22/17 21:50 Consult to Nephrology [CONS] Routine Consulting Provider: [facility] Shi LOVELL Reason for Consult: ESRD, EF 15-20%, A-fib RVR Call Completed: No 01/25/17 09:30 Consult to Dialysis [CONS] ONCE Discharging clinician: Juancho Cano Anticipated date of discharge: 01/25/17 - Patient Status Disposition: Home, Self-Care Condition: Fair Functional capacity at discharge: uses cane/walker Overall status at discharge: patient is progressing back to baseline - Discharge Instructions Instructions: Atrial Fibrillation (DC), Sepsis (DC) Follow Up With: Arthur Pozo MD [Primary Care Provider] - 02/01/17 9:45 am () Additional Instructions: Follow-up with your primary care provider in the next 3-5 days for further evaluation posthospital discharge Attending dialysis as scheduled and received her vancomycin with Dr. Lovell at dialysis. - Repeat blood cultures with dialysis, followed by nephrology - Diet and Activity Activity: increase activity as tolerated Diet: diabetic diet, low fat, low cholesterol, low salt diet Interval History: Mr. Hatch 46-year-old male with a PMH of atrial fibrillation, ESRD with HD every MWF, cardiomyopathy, systolic CHF with EF 15-20%, COPD, DM, hypertension, and hyperlipidemia that presented with AMS, atrial fibrillation with rapid ventricular rate after completing dialysis prior to arrival. In the emergency department the patient was provided Cardizem for heart rate of 150s and had an episode of hypotension. He was then placed on an amiodarone drip and transferred to the general medical floor. He met sepsis criteria and terrell cultures were collected. He was started on broad-spectrum antibiotics and provided fluids. He started to respond to interventions and show improvement. During his inpatient stay blood cultures demonstrated Staphylococcus aureus which were pansensitive. He was placed on CPAP and his benign medical conditions were addressed. Echocardiogram did not demonstrate any acute findings including valvular pathology. He remained on cardiac monitoring and closely watch. He presented with a leukocytosis which resolved with treatment and he underwent dialysis on Wednesday. Patient remained stable was seen and evaluated patient bedside during dialysis and deemed stable for discharge with close follow-up. It was discussed with Dr. Lovell about continuing IV vancomycin with dialysis to treat his gram-positive bacteremia for which he agreed. A prescription for vancomycin IV was provided time discharge and vancomycin and troughs will be monitored with nephrology. Hospital course: Mr. Hatch is a 46 year old male - Time Spent with Patient Total time spent providing and/or coordinating discharge services: - Constitutional Vitals: Temp Pulse Resp BP Pulse Ox 97.2 F L 119 15 125/75 100 01/25/17 14:55 01/25/17 08:50 01/25/17 14:55 01/25/17 14:55 01/25/17 08:50 General appearance: Present: cooperative, A&O X 3, pleasant Exam: General: Patient alert, awake, oriented 3, interactive, in no acute distress HEENT: Normocephalic, atraumatic, pupils equal reactive to light, nasal cavity patent and open septum median position, oral mucosa moist, uvula midline, neck supple trachea midline no palpable lymphadenopathy, no thyromegaly. Chest: Symmetric bilateral correlating with respiratory effort, effort nonlabored. Cardiac: Irregularly irregular heart rate and rhythm. no bruits appreciated bilateral carotids, Radial pulses 2+ bilatera bilateral. Respiratory: Clear to auscultation bilaterally. Abdomen: Obese, Soft, nontender, positive bowel sounds, no palpable masses appreciated on examination Extremities: Symmetric bilateral, bilateral lower extremities without erythema but does have 2+ pitting edema with weeping upon palpation, patient moving all 4 extremities spontaneously. Neurologic: No focal deficits appreciated on examination. Face symmetric, muscle strength symmetric bilateral upper and lower extremities. <Alex Lord - Last Filed: 01/25/17 18:29> Date of Encounter: 01/25/17 - Discharge Diagnosis (1) Sepsis Priority: Primary Status: Suspected Qualifiers: Sepsis type: methicillin susceptible Staphylococcus aureus Qualified Code(s ): A41.01 - Sepsis due to Methicillin susceptible Staphylococcus aureus (2) Atrial fibrillation Priority: Secondary Status: Chronic Qualifiers: Atrial fibrillation type: persistent Qualified Code(s): I48.1 - Persistent atrial fibrillation (3) Hypotension Priority: Secondary Status: Resolved Qualifiers: Hypotension type: other hypotension type Qualified Code(s): I95.89 - Other hypotension (4) Diabetes Priority: Secondary Status: Chronic Qualifiers: Diabetes mellitus type: type 2 Diabetes mellitus complication status: with kidney complications Diabetes mellitus complication detail: with chronic kidney disease Diabetes mellitus care home insulin use: with care home use Chronic kidney disease stage: on chronic dialysis Qualified Code(s): E11.22 - Type 2 diabetes mellitus with diabetic chronic kidney disease; N18.6 - End stage renal disease; Z79.4 - FDC (current) use of insulin; Z99.2 - Dependence on renal dialysis (5) Medical non-compliance Priority: Secondary Status: Chronic (6) Obesity (BMI 30-39.9) Priority: Secondary Status: Chronic (7) Tobacco abuse Priority: Secondary Status: Chronic (8) Marijuana use Priority: Secondary Status: Chronic (9) Systolic heart failure, chronic Priority: Secondary Status: Chronic Comments: Not on beta ga due to refusal and not on ERIKA due to renal function. Procedures/tests Complete & Pending: Procedures Performed prior 72 hours Category Date Time Status ECG 12 lead ECG [ECG] Routine Y 01/23/17 03:07 Completed EKG [ECG 12 lead ECG] [ECG] Stat Y 01/23/17 02:50 Completed EV echocardiogram Routine Y 01/25/17 11:50 Completed Date of admission: 01/22/17 18:40 Primary care physician: Arthur Pozo MD Consults: 01/22/17 21:50 Consult to Nephrology [CONS] Routine Consulting Provider: [facility] Spccharisse LOVELL Reason for Consult: ESRD, EF 15-20%, A-fib RVR Call Completed: No 01/25/17 09:30 Consult to Dialysis [CONS] ONCE Hospital course: Mr. Hatch is a 46 year old male - Time Spent with Patient Total time spent providing and/or coordinating discharge services: 41min - Constitutional Vitals: Temp Pulse Resp BP Pulse Ox 97.2 F L 119 15 125/75 100 01/25/17 14:55 01/25/17 08:50 01/25/17 14:55 01/25/17 14:55 01/25/17 08:50 - Attending Attestation I examined this patient and my medical decision-making was reviewed with the Resident Physician on 01/25/17. I agree with the documented findings, disposition and treatment plan as described except to the extent set forth below. Mr. Hatch has been admitted for rapid a fib and MSSA bacteremia. He is afebrile and vitals stable today. He tolerated dialysis. Exam Alert. Comfortable Heart irreg and tachy Lungs diminished Abd soft Edema present Plan D/C today Discussed with renal - echo with no distinct vegetation, blood cx done in dialysis for follow up, will monitor and give Vanc. Pt has MSSA bacteremia - beta lactam is best choice but this patient will not be compliant with multiple dosed IV abx after discharge. He will accept IV Vancomycin in dialysis and will be discharged with this med.
[2017-01-25 18:03] LABS: Hepatitis B Surface Antibody 0.21 mIU/mL; Hepatitis B Surface Antigen Nonreactive (Nonreactive)
[2017-01-25] MEDS ORDERED: Aminoglycoside Consult 1 EACH MC ONE (18:34)
--- NOTE | 2017-01-25 21:27 | Electrocardiograph Report ---
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
--- NOTE | 2017-01-25 21:41 | Electrocardiograph Report ---
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
--- NOTE | 2017-01-25 21:41 | Electrocardiograph Report ---
[address] [address] Test Date: 2017-01-23 Pat Name: Eduar Hatch Department: 110 Room: 2N07 Gender: Coronary Care Unit Nurse: TLS : 1970 Requested By: Alex Lord Order Number: [id number] Reading MD: Graham Millan MD Measurements Intervals [place] Rate: 137 P: MS: 0 QRS: 107 QRSD: 93 T: 53 QT: 302 QTc: 382 Interpretive Statements ATRIAL FIBRILLATION WITH RAPID VENTRICULAR RESPONSE MARKED RIGHT AXIS DEVIATION LOW QRS VOLTAGE IN EXTREMITY LEADS Poor R wave progression Electronically Signed On 01-25-2017 21:39:52 EDT by Graham Millan MD
[2017-01-26] MEDS ORDERED: Famotidine 20 MG TABLET PO SCH (07:30)
== END 2017-01-25 18:35 | disposition home or self-care (01) | DRG 871 ==
LOC: EMEROO 15:13 → 2NNU 18:40 → SUATTDRO 18:40 → 2NNU 19:01
PROVIDERS: ADMIT Nurse Practitioner Family; ATTEND Internal Medicine

== ENCOUNTER 2017-02-06 22:23 | Inpatient (IN) ==
[2017-02-06 23:14] LABS: Basophils % 0.3 %; Eosinophils # 0.1 K/mcL (0.0-0.6); Hematocrit 39.8 % (37.5-50.1); Immature Granulocytes % 0.3 % (0-4); Immature Platelets 9.9 % (1.1-6.1); Lymphocytes # 1.1 K/mcL (0.6-4.6); Lymphocytes % 18.4 %; Mean Corpuscular HGB Conc 30.2 g/dL (31.6-35.5); Mean Corpuscular Hemoglobin 27.5 pg (28.0-33.3); Mean Corpuscular Volume 91.1 fL (83.0-100.0); Mean Platelet Volume 11.9 fL (9.4-12.4); Monocytes # 0.6 K/mcL (0.0-1.3); Monocytes % 9.7 %; Neutrophils # 4.4 K/mcL (1.6-8.9); Red Blood Count 4.37 M/mcL (4.19-5.50); Red Cell Distribution Width 18.7 % (11.5-14.5); Segmented Neutrophils % 70.3 %
[2017-02-06 23:15] LABS: Platelet Count 94 K/mcL (140-400)
[2017-02-06 23:23] LABS: Calcium 6.6 mg/dL (8.6-10.8); Potassium 4.5 mEq/L (3.5-4.5)
--- NOTE | 2017-02-06 23:51 | Emergency Department Note ---
Disposition Clinical Impression: Shortness of breath, End stage renal disease on dialysis Volume overload Qualifiers: Hypervolemia type: other Qualified Code(s): E87.79 - Other fluid overload Disposition: Admitted As Inpatient Time of Disposition: 23:50 General Adult HPI - General Chief complaint: ED Shortness of Breath/Dyspnea Stated complaint: fluid retention,reaction to med high pulse Time Seen by Provider: 02/06/17 22:40 Source: patient, family Limitations: no limitations Nursing Notes Reviewed: Yes Vital Signs Reviewed: Yes - History of Present Illness HPI Narrative: 46-year-old -[place] male with a past medical history of end-stage renal disease, itself, history of intubations. He presents to the emergency department one day after dialysis with 4 kg weight gain, increasing symptoms of shortness of breath, abdominal distention. Patient states that his CPAP at home does not work and he cannot get relief with his symptoms. Pain Scale: 10 - Related Data Home Medications Medication Instructions Recorded Confirmed [place] Oil/[place]-3 Fatty Acids 1 cap PO DAILY #0 01/07/15 01/22/17 [Fish Oil 500 mg Softgel] Cinacalcet HCl [Sensipar] 120 mg PO DAILY 09/02/16 01/22/17 Budesonide/Formoterol 160/4.5 2 puff IH BIDR PRN 11/16/16 01/22/17 [Symbicort 160/4.5] Amiodarone [Cordarone] 200 mg PO BID 01/22/17 01/22/17 Ammonium Lactate [Amlactin] 1 appl TP BID 01/22/17 01/22/17 Calcium Acetate [Phos-LO] 2,668 mg PO TID 01/22/17 01/22/17 Carvedilol [Coreg] 50 mg PO BID 01/22/17 01/22/17 Pregabalin [Lyrica] 100 mg PO TID 01/22/17 01/22/17 Rosuvastatin Calcium 20 mg PO DAILY 01/22/17 01/22/17 Previous Rx's Medication Instructions Recorded Vancomycin HCl 750 mg IV QMWF #6 vial 01/25/17 Allergies Allergy/AdvReac Type Severity Reaction Status Date / Time hydrocodone [From [place]] Allergy Intermediate Hives Verified 09/29/16 16:59 lanolin AdvReac Swelling Verified 11/18/16 10:51 [From Lacri-Lube S[facility].P[facility] of the Eye mineral oil AdvReac Swelling Verified 11/18/16 10:50 [From Lacri-Lube S[facility] of the Eye petrolatum,white AdvReac Swelling Verified 11/18/16 10:50 [From Lacri-Lube S.O.P[facility] of the Eye All systems ED: reviewed and negative except as stated. Review of Systems: As Per HPI Constitutional: Denies: fever, chills Eyes: Denies: eye pain ENT ED: Denies: throat pain Cardiovascular: Reports: dyspnea on exertion, orthopnea. Denies: chest pain, palpitations Respiratory: Reports: dyspnea Gastrointestinal: Denies: abdominal pain, nausea, vomiting Genitourinary: Denies: urgency, dysuria, frequency Musculoskeletal: Denies: back pain, neck pain Past Medical History - Past Medical History Medical history: Reports: arthritis, atrial fibrillation, cardiomyopathy, CHF, COPD, diabetes, dialysis, GERD, hyperlipidemia, hypertension, osteoporosis, renal disease, other Surgical history: Reports: herniorrhaphy, vascular surgery, other Psychiatric history: Reports: anxiety, depression, other - Social History Smoking Status: Current every day smoker Smokeless Tobacco Status: No Alcohol use: Reports: none Drug use: Reports: none Physical Exam - General Limitations: no limitations General appearance: alert, in no apparent distress - Head Head exam: atraumatic, normocephalic - Eye Eye exam: Absent: scleral icterus, conjunctival injection - ENT ENT exam: normal exam, normal oropharynx - Neck Neck exam: Present: trachea midline. Absent: tenderness, meningismus - Chest Chest inspection: Present: normal inspection, symmetric chest wall rise - Respiratory Respiratory exam: Present: respiratory distress (Mild), other (Distant lung sounds). Absent: accessory muscle use - Cardiovascular Cardiovascular exam: Present: tachycardia, irregular rhythm, normal heart sounds - Abdominal Exam Abdominal exam: Present: distention, other (Firm abdomen) - Extremities Exam Extremities exam: Present: pedal edema (3+) - Neurological Exam Neurological exam: Present: alert, oriented X3 - Psychiatric Psychiatric exam: Present: normal affect, normal mood - Skin Skin exam: Present: warm, dry, intact, normal color Course Course Narrative: 46-year-old male, past medical history of end-stage renal disease, CHF presents to the emergency department with concerns for volume overload. Patient states that he went to dialysis yesterday still 4 kg over his normal body weight. Patient states that he is having worsening shortness of breath, he cannot get relief with his CPAP machine at home because it does not work. This time, I will obtain a chest x-ray, EKG, CBC, BMP, troponin. I will also provide this patient with BiPAP in the emergency department as this may be the only effective way at getting him relief of his symptoms at this time. His blood pressure is 115/86 so the use of a nitro drip and may not be beneficial as this could cause this patient become hypotensive. - Reevaluation(s) Reevaluation #1: Patient's symptoms have improved through the use of BiPAP. The patient's creatinine is elevated, but is his norm. His chest x-ray reveals mild vascular congestion. At this time, I consulted his security escort Dr. Richey who said to admit the patient and he will stop by and see him in the morning for further evaluation. I spoke with the hospitalist Dr. Sandoval, and he agrees and is willing to accept admission of this time. Patient and his family also agrees. The patient is currently hemodynamically stable and has oxygen saturation of 96% on BiPAP. Chest X-Ray 02/06/17 22:51 IMPRESSION: 1. Suggestion of mild pulmonary vascular congestion. 2. Otherwise negative limited portable chest radiograph. D/ / Eleuterio Ellsworth MD / Eleuterio Ellsworth MD Interpreting Provider: Eleuterio Ellsworth MD Vital Signs Temperature 97.9 F 02/06/17 22:33 Pulse Rate 99 02/06/17 22:33 Respiratory Rate 16 02/06/17 22:33 Blood Pressure 115/81 02/06/17 22:33 O2 Sat by Pulse Oximetry 92 02/06/17 22:33 Temperature 98.2 F 02/07/17 02:08 Pulse Rate 136 02/07/17 02:27 Respiratory Rate 20 02/07/17 02:08 Blood Pressure 105/89 02/07/17 02:08 O2 Sat by Pulse Oximetry 97 02/07/17 02:08 Oxygen Delivery Oxygen Delivery Bipap Time: 23:52 Vital Signs Temperature 97.9 F 02/06/17 22:33 Pulse Rate 99 02/06/17 22:33 Respiratory Rate 16 02/06/17 22:33 Blood Pressure 115/81 02/06/17 22:33 O2 Sat by Pulse Oximetry 92 02/06/17 22:33 Temperature 98.2 F 02/07/17 02:08 Pulse Rate 136 02/07/17 02:27 Respiratory Rate 20 02/07/17 02:08 Blood Pressure 105/89 02/07/17 02:08 O2 Sat by Pulse Oximetry 97 02/07/17 02:08 Oxygen Delivery Oxygen Delivery Bipap Medical Decision Making - Medical Records Medical records reviewed: Yes I reviewed the patient's medical records. - Lab Data Lab results reviewed: Yes I reviewed the patient's lab results. Result diagrams: 02/07/17 02:49 02/07/17 02:49 Lab Results 02/06/17 02/06/17 02/06/17 Range/Units 23:04 23:04 23:04 WBC 6.2 (4.3-11.1) K/mcL RBC 4.37 (4.19-5.50) M/mcL Hgb 12.0 L (12.9-16.9) g/dL Hct 39.8 (37.5-50.1) % MCV 91.1 (83.0-100.0) fL MCH 27.5 L (28.0-33.3) pg MCHC 30.2 L (31.6-35.5) g/dL RDW 18.7 H (11.5-14.5) % Plt Count 94 L (140-400) K/mcL MPV 11.9 (9.4-12.4) fL Immature Gran % 0.3 (0-4) % Seg Neutrophils % 70.3 % Lymphocytes % 18.4 % Monocytes % 9.7 % Eosinophils % 1.0 % Basophils % 0.3 % Neutrophils # 4.4 (1.6-8.9) K/mcL Lymphocytes # 1.1 (0.6-4.6) K/mcL Monocytes # 0.6 (0.0-1.3) K/mcL Eosinophils # 0.1 (0.0-0.6) K/mcL Basophils # 0.0 (0.0-0.2) K/mcL Immature Plt Fraction 9.9 H (1.1-6.1) % Sodium 139 (136-145) mEq/L Potassium 4.5 (3.5-4.5) mEq/L Chloride 101 (98-109) mEq/L Carbon Dioxide 23 (19-29) mEq/L BUN 48 H (8-26) mg/dL Creatinine 9.32 H (0.72-1.25) mg/dL Est GFR ( Amer) 7 L (> 60) Est GFR (Non-Af Amer) 6 L (> 60) BUN/Creatinine Ratio 5 L (6-26) Glucose 241 H (70-99) mg/dL Calculated Osmolality 309 H (280-300) Calcium 6.6 L (8.6-10.8) mg/dL Troponin I 0.03 (0-0.03) ng/mL - Radiology Data Radiology results reviewed: Yes I reviewed the patient's radiology results. - EKG Data EKG #1 EKG attestation: Yes I reviewed and interpreted this EKG. EKG results narrative: 23:07 Ventricular rate 127 bpm, QRS duration 80 ms, QT 337 ms, QTC 412 ms, right axis deviation. Atrial fibrillation with rapid ventricular response ventricular rate is 127. This EKG is unchanged from her previous one performed on 01/23/2017. Attestation Statement - Attestation Attestation: I, Elian Taylor MD, personally evaluated this patient and discussed their management with the resident physician. I reviewed the resident's note and agree with the documented findings, medical decision making, and plan of care. 46-year-old male with history of end-stage renal disease on hemodialysis presents to the emergency department complaining of increased fluid retention and increased shortness of breath. Patient did have his dialysis on Wednesday. He states even after his dialysis his weight was 4 kg above baseline. He complains of pain in his lower extremities secondary to the swelling. No chest pain. No cough or fever. Apparently patient has CPAP at home but his machine is broken. On examination patient is a well-developed obese male in no acute distress at time of my exam. He is on BiPAP area breath sounds are decreased and equal bilaterally with some bibasilar rales. Heart irregularly irregular with mild tachycardia. Abdomen soft with present bowel sounds. Tight pitting edema of lower extremities bilaterally. Chest x-ray shows pulmonary vascular congestion. EKG shows atrial fibrillation with RVR with a heart rate of 127. Labs reviewed. Dr. Alvarez discussed the patient with the patient's security escort, Dr. Kuo, and he will follow-up with the patient in the hospital. The hospitalist, Dr. Sandoval, was consulted and accepted admission of the patient.
[2017-02-07] MEDS ORDERED: Ondansetron ODT 4 MG TAB.RAPDIS SL ONE (00:32)
[2017-02-07] MEDS ORDERED: Ondansetron 4 MG/2 ML VIAL IVP PRN (02:32)
[2017-02-07] MEDS ORDERED: Naloxone 0.4 MG/ML INJ IVP PRN (02:32)
[2017-02-07] MEDS ORDERED: Acetaminophen 325 MG TABLET PO PRN (02:32)
[2017-02-07] MEDS ORDERED: *HR* Morphine 2 MG/ML SYRINGE IVP PRN (02:32)
[2017-02-07] MEDS ORDERED: Budesonide/Formoterol 160/4.5 MDI IH PRN (02:40)
[2017-02-07 03:27] LABS: Eosinophils % 0.8 %; Mean Corpuscular Hemoglobin 27.7 pg (28.0-33.3)
[2017-02-07 03:28] LABS: Basophils % 0.6 %; Eosinophils # 0.1 K/mcL (0.0-0.6); Hematocrit 37.6 % (37.5-50.1); Hemoglobin 11.4 g/dL (12.9-16.9); Immature Granulocytes % 0.5 % (0-4); Immature Platelets 9.3 % (1.1-6.1); Lymphocytes # 1.2 K/mcL (0.6-4.6); Lymphocytes % 18.6 %; Mean Corpuscular HGB Conc 30.3 g/dL (31.6-35.5); Mean Corpuscular Volume 91.3 fL (83.0-100.0); Mean Platelet Volume 12.4 fL (9.4-12.4); Monocytes # 0.7 K/mcL (0.0-1.3); Monocytes % 10.6 %; Neutrophils # 4.4 K/mcL (1.6-8.9); Nucleated Red Blood Cells 0.3 /100 WBC (0); Red Blood Count 4.12 M/mcL (4.19-5.50); Red Cell Distribution Width 18.9 % (11.5-14.5); Segmented Neutrophils % 68.9 %
[2017-02-07 03:29] LABS: Platelet Count 91 K/mcL (140-400)
[2017-02-07 03:31] LABS: INR 1.4; Prothrombin Time 15.5 Seconds (9.4-12.1)
[2017-02-07 03:40] LABS: Calcium 6.7 mg/dL (8.6-10.8)
[2017-02-07 03:41] LABS: Magnesium 2.4 mg/dL (1.6-2.6); Potassium 4.9 mEq/L (3.5-4.5)
--- NOTE | 2017-02-07 05:47 | Internal Med History&Physical ---
Date of Encounter: 02/07/17 Time of Encounter: 03:30 Assessment and Plan (1) Fluid overload Current visit: No Status: Acute Fluid overload status secondary to end-stage renal disease and CHF systolic dysfunction - causing shortness of breath Continue BiPAP, IV morphine as needed Patient will need hemodialysis today Cardiac telemetry, labs in a.m., monitor closely Final fluid restriction, strict I's and O's, daily weight Qualifiers: Hypervolemia type: unspecified Qualified Code(s): E87.70 - Fluid overload, unspecified (2) Acute systolic heart failure Current visit: Yes Status: Acute Acute exacerbation of chronic systolic CHF LVEF 20-25% Continue home meds Fluid restriction, strict I's and O's, daily weight (3) End stage renal disease on dialysis Current visit: Yes Status: Chronic Incisional disease on hemodialysis Wednesday - with fluid overload status Nephrology consult (4) Atrial fibrillation Current visit: Yes Status: Chronic Chronic atrial fibrillation, with rapid ventricular rate Continue home dose of Amiodarone, hold Coreg if systolic blood pressure is less than 110 Continue Coumadin for anticoagulation Qualifiers: Atrial fibrillation type: chronic Qualified Code(s): I48.2 - Chronic atrial fibrillation (5) COPD (chronic obstructive pulmonary disease) Current visit: No Status: Chronic COPD with acute exacerbation Continue DuoNeb breathing treatment, Symbicort Qualifiers: COPD type: unspecified COPD Qualified Code(s): J44.9 - Chronic obstructive pulmonary disease, unspecified (6) Nonischemic cardiomyopathy Current visit: No Status: Chronic (7) ZAINAB (obstructive sleep apnea) Current visit: Yes Status: Chronic Obstructive sleep apnea and obesity hypoventilation, continue BiPAP (8) Hyperlipidemia Current visit: Yes Status: Chronic Continue Crestor Qualifiers: Hyperlipidemia type: unspecified Qualified Code(s): E78.5 - Hyperlipidemia , unspecified (9) Obesity (BMI 30-39.9) Current visit: Yes Status: Chronic BMI 39.4 (10) DVT prophylaxis Current visit: Yes Status: Acute Continue heparin subcutaneous Internal Medicine - H&P: HPI Chief complaint: Shortness of breath Admitted From: Emergency Dept Plans for Post Hospital Care: Home History of present illness: Mr. Hatch is a 46 year old male with past medical history of CHF, cardiomyopathy, end-stage renal disease on hemodialysis, chronic atrial fibrillation, COPD, diabetes, GERD and hyperlipidemia. Patient presents with complaints of shortness of breath. Examined in the room. Patient is awake and alert. Not in any distress. He is able to provide history and able to speak full sentences. No family members at bedside. Patient states shortness of breath started about 24 hours prior to arrival in the ED. He gets hemodialysis on Fridays. Patient states he did not go for his dialysis session on Wednesday, but soon after he developed shortness of breath. Patient states that his shortness of breath has been gradually worsening. Patient denies palpitations or chest pain or headache or cough or fever. He was also found to have an increase of 4 kg. Initial workup in the ED shows elevated troponin likely due to CHF and cardiomyopathy. Patient also has elevated BNP peptide which is also due to cardiomyopathy and CHF. Patient will need dialysis in the morning. Nephrology has been contacted by the ED physician. Past Med Surg Social Fam HX - Past Medical History Medical history: arthritis, atrial fibrillation, cardiomyopathy, CHF, COPD, diabetes, dialysis, GERD, hyperlipidemia, hypertension, osteoporosis, renal disease, other Psychiatric history: anxiety, depression, other - Past Surgical History Surgical History: herniorrhaphy, vascular surgery, other - Social History Smoking Status: Current every day smoker Smokeless Tobacco Status: No Alcohol use: none Drug use: none - Family History Father Living Status: Hx Family Cardiac Disorders: No Hx Family Respiratory Disorders: No Hx Family Cancer: No Hx Family GI Disorders: No Hx Family Endocrine Disorder: No Hx Family Neuromuscular Disorders: No Hx Family Neurologic Disorders: No Hx Family HEENT Disorders: No Hx Family Autoimmune Disorders: No Mother Adopted: No Living Status: Still Living Hx Family Cardiac Disorders: Yes Hx Family Endocrine Disorder: Yes Internal Medicine - H&P: Meds [place] Oil/[place]-3 Fatty Acids [Fish Oil 500 mg Softgel] 1 cap PO DAILY #0 01/07 [History] Cinacalcet HCl [Sensipar] 120 mg PO DAILY 09/02/16 [History] Budesonide/Formoterol 160/4.5 [Symbicort 160/4.5] 2 puff IH BIDR PRN 11/16/16 [ History] Amiodarone [Cordarone] 200 mg PO BID 01/22/17 [History] Ammonium Lactate [Amlactin] 1 appl TP BID 01/22/17 [History] Calcium Acetate [Phos-LO] 2,668 mg PO TID 01/22/17 [History] Carvedilol [Coreg] 50 mg PO BID 01/22/17 [History] Pregabalin [Lyrica] 100 mg PO TID 01/22/17 [History] Rosuvastatin Calcium 20 mg PO DAILY 01/22/17 [History] Vancomycin HCl 750 mg IV QMWF #6 vial 01/25/17 [Rx] 3 Allergy/AdvReac Type Severity Reaction Status Date / Time hydrocodone [From [place]] Allergy Intermediate Hives Verified 09/29/16 16:59 lanolin AdvReac Swelling Verified 11/18/16 10:51 [From [employer] [facility] mineral oil AdvReac Swelling Verified 11/18/16 10:50 [From [facility] [facility] petrolatum,white AdvReac Swelling Verified 11/18/16 10:50 [From [facility] [facility] All Systems PM: A 10-system review of systems was performed and is negative for pertinent findings except as documented above in the HPI. - Constitutional Constitutional: fatigue, weakness, no fever(s) - EENT Eyes: no blurry vision - Cardiovascular Cardiovascular ROS IM: chest pain, dyspnea, dyspnea on exertion, edema, orthopnea, no lightheadedness, no palpitations, no syncope - Respiratory Respiratory: cough, dyspnea, dyspnea on exertion, chest congestion, no hemoptysis, no wheezing, no excessive phlegm production - Gastrointestinal Gastrointestinal: bloating, diarrhea, no abdominal pain, no cramping, no hematemesis, no loose stools, no nausea, no vomiting - Genitourinary Genitourinary ROS male: no dysuria - Neurological Neurological ROS: no abnormal gait, no convulsions, no disequilibrium, no dizziness, no loss of vision, no memory loss, no numbness, no tingling - Constitutional Vitals: Temp Pulse Resp BP Pulse Ox 98.2 F 136 20 105/89 97 02/07/17 02:08 02/07/17 02:27 02/07/17 02:08 02/07/17 02:08 02/07/17 02:08 General appearance: Present: A&O X 3, morbidly obese, pleasant, no acute distress, answers questions appropriately - Head Head exam: Present: atraumatic - Eye Eye exam: Present: EOMI - ENT ENT exam: Present: mucous membranes dry - Respiratory Respiratory exam: Present: rales (Bilateral), tachypnea. Absent: accessory muscle use, chest wall tenderness, rhonchi, wheezes - Cardiovascular Cardiovascular exam: Present: irregular rhythm, +S1, +S2, systolic murmur, tachycardia - GI/Abdominal GI/Abdominal exam: Present: distended (Slightly distended), soft. Absent: firm , guarding, tenderness - Extremities Exam Extremities exam: Present: pedal edema, radial pulses palpable and symmetrical ( Bilateral lower lid 3+ pitting edema). Absent: calf tenderness, cyanotic - Neurological Exam Neurological exam: Present: alert, oriented X3, no focal deficits. Absent: facial droop, speech deficit Internal Med - H&P Results - Labs CBC & Chem 7: 02/07/17 02:49 02/07/17 02:49 Labs: Short CBC 02/07/17 Range/Units 02:49 WBC 6.4 (4.3-11.1) K/mcL Hgb 11.4 L (12.9-16.9) g/dL Hct 37.6 (37.5-50.1) % Plt Count 91 L (140-400) K/mcL Neutrophils # 4.4 (1.6-8.9) K/mcL BMP 02/07/17 02:49 Sodium 138 Potassium 4.9 H Chloride 102 Carbon Dioxide 22 BUN 54 H Creatinine 9.67 H Glucose 256 H Calcium 6.7 L Cardiac Enzymes 02/07/17 Range/Units 02:49 Troponin I 0.04 H* (0-0.03) ng/mL
[2017-02-07] MEDS ORDERED: D5% in Water 1,000 ML IVC PRN (05:50)
[2017-02-07] MEDS ORDERED: Dextrose Gel 15 GM PO PRN ×2 (05:50)
[2017-02-07] MEDS ORDERED: *HR* Dextrose 50 % in Water (Syg) 50 ML SYRINGE IVP PRN (05:50)
[2017-02-07] MEDS ORDERED: *HR* Warfarin 5 MG TABLET PO ONE ×2 (05:53→18:00)
[2017-02-07] MEDS: *HR* Heparin 5,000 UNIT/ML VIAL SQ SCH ×2 (05:58→17:19)
[2017-02-07] MEDS: *HR* Amiodarone 200 MG TABLET PO SCH ×2 (05:58→21:39)
[2017-02-07] MEDS ORDERED: Famotidine 20 MG/2 ML VIAL IVP SCH (06:00)
[2017-02-07 06:25] LABS: Hemoglobin A1C 7.4 %
--- NOTE | 2017-02-07 07:58 | Nephrology Consult Note ---
Date of Encounter: 02/07/17 Time of Encounter: 07:30 Assessment and Plan (1) End stage renal disease on dialysis Current Visit: Yes Status: Chronic Fluid overload due to ESRD and chronic systolic CHF. Will ultrafiltrate today for fluid removal. Orders given. Will have HD tomorrow, keeping MWF schedule. History of Present Illness - Reason for Consult end stage renal disease - History of Present Illness Mr. Hatch is a 46 year old male with ESRD who dialyzes at [place] on MWF. Last dialysis on Wednesday. Other PMH-: arthritis, atrial fibrillation, cardiomyopathy, CHF, COPD, diabetes, dialysis, GERD, hyperlipidemia, hypertension, osteoporosis, renal disease, herniorrhaphy, vascular surgery, anxiety, depression. Mr. Hatch presented to ER with shortness of breath and 4 kg weight gain with abdominal distension. Mr. Hatch states his CPAP machine is not working and wanted to present himself to ER before he ended up needing intubated. He was placed in BiPap in ER with improvement. CXR-mild vascular congestion. This morning he is using O2/NC and states he is breathing easier. He states he has been compliant with fluid intake, however has been eating high salt foods. He does have 1-2 plus pitting LE edema and has agreed to having UF today for fluid removal. Past Med Surg Social Fam HX - Past Medical History Medical history: arthritis, atrial fibrillation, cardiomyopathy, CHF, COPD, diabetes, dialysis, GERD, hyperlipidemia, hypertension, osteoporosis, renal disease, other Psychiatric history: anxiety, depression, other - Past Surgical History Surgical History: herniorrhaphy, vascular surgery, other - Social History Smoking Status: Current every day smoker Smokeless Tobacco Status: No Alcohol use: none Drug use: none - Family History Father Living Status: Hx Family Cardiac Disorders: No Hx Family Respiratory Disorders: No Hx Family Cancer: No Hx Family GI Disorders: No Hx Family Endocrine Disorder: No Hx Family Neuromuscular Disorders: No Hx Family Neurologic Disorders: No Hx Family HEENT Disorders: No Hx Family Autoimmune Disorders: No Mother Adopted: No Living Status: Still Living Hx Family Cardiac Disorders: Yes Hx Family Endocrine Disorder: Yes Medications and Allergies [place] Oil/[place]-3 Fatty Acids [Fish Oil 500 mg Softgel] 1 cap PO DAILY #0 01/07 [History] Cinacalcet HCl [Sensipar] 120 mg PO DAILY 09/02/16 [History] Budesonide/Formoterol 160/4.5 [Symbicort 160/4.5] 2 puff IH BIDR PRN 11/16/16 [ History] Amiodarone [Cordarone] 200 mg PO BID 01/22/17 [History] Ammonium Lactate [Amlactin] 1 appl TP BID 01/22/17 [History] Calcium Acetate [Phos-LO] 2,668 mg PO TID 01/22/17 [History] Carvedilol [Coreg] 50 mg PO BID 01/22/17 [History] Pregabalin [Lyrica] 100 mg PO TID 01/22/17 [History] Rosuvastatin Calcium 20 mg PO DAILY 01/22/17 [History] Vancomycin HCl 750 mg IV QMWF #6 vial 01/25/17 [Rx] 3 Allergy/AdvReac Type Severity Reaction Status Date / Time hydrocodone [From [place]] Allergy Intermediate Hives Verified 09/29/16 16:59 lanolin AdvReac Swelling Verified 11/18/16 10:51 [From [employer] [facility] mineral oil AdvReac Swelling Verified 11/18/16 10:50 [From [facility] [facility] petrolatum,white AdvReac Swelling Verified 11/18/16 10:50 [From [facility] [facility] Review of Systems All Systems: reviewed and no additional remarkable complaints except as stated Exam - Vital Signs Vital signs: Initial Vital Signs Temp Pulse Resp BP Pulse Ox 97.9 F 99 16 115/81 92 02/06/17 22:33 02/06/17 22:33 02/06/17 22:33 02/06/17 22:33 02/06/17 22:33 - General Appearance General appearance: well-developed, well-nourished, appears started age, obese EENT: mucous membranes moist Neck: no JVD Respiratory: clear Cardiology: edema, irregular rhythm Gastrointestinal: normoactive bowel sounds, no tenderness, distended Integumentary: warm and dry Neurologic: alert and oriented x3 Psychiatric: mood/affect appropriate, cooperative Results - Lab Results 02/07/17 02:49 02/07/17 02:49 Most recent lab results Calcium 6.7 mg/dL (8.6-10.8) L 02/07/17 02:49 Magnesium 2.4 mg/dL (1.6-2.6) 02/07/17 02:49 Consult Discharge Plan - Plan Referrals: Arthur Pozo MD [Primary Care Provider] -
[2017-02-07] MEDS: Insulin LISPRO 300 UNITS/3 ML VIAL SQ SCH ×3 (08:57→17:19)
[2017-02-07] MEDS: Calcium Acetate 667 MG CAPSULE PO SCH ×3 (08:59→21:39)
[2017-02-07] MEDS: FATTY ACIDS PO SCH (09:00)
[2017-02-07] MEDS: OMEGA PO SCH (09:00)
[2017-02-07] MEDS: SALMON OIL PO SCH (09:00)
[2017-02-07] MEDS: Ammonium Lactate 30 APPL/225 GM BOTTLE TP SCH ×2 (09:07→22:09)
[2017-02-07] MEDS ORDERED: 0.9 % Sodium Chloride 250 ML IVC PRN (10:02)
[2017-02-07] MEDS ORDERED: 0.9 % Sodium Chloride 1,000 ML PRIME SCH (10:15)
[2017-02-07] MEDS: Ipratropium/Albuterol Neb 3 ML IH SCH ×3 (10:19→22:15)
[2017-02-07] MEDS ORDERED: 0.9 % Sodium Chloride 2,000 ML ONE (11:24)
--- NOTE | 2017-02-07 15:43 | Internal Med Progress Note ---
Date of Encounter: 02/07/17 Time of Encounter: 15:40 - Assessment and plan (1) Fluid overload Current Visit: No Status: Acute Assessment and plan: Secondary to end-stage renal disease and systolic heart failure. Patient was scheduled and had dialysis today he does have improvement and breathing. Continue beta ga Coreg Qualifiers: Hypervolemia type: unspecified Qualified Code(s): E87.70 - Fluid overload, unspecified (2) Acute systolic heart failure Current Visit: Yes Status: Acute Assessment and plan: Patient states that he had a frozen dinner and did not know that it was high in sodium content. Most likely acute systolic heart failure is related to this. (3) Atrial fibrillation Current Visit: No Status: Chronic Assessment and plan: for rate control; continue amiodarone and carvedilol. He was tachycardia in the morning but rate seemed to be within normal limits after by mouth medications For anticoagulation he is on Coumadin. INR this morning was 1.4. We will recheck INR tomorrow. Qualifiers: Atrial fibrillation type: persistent Qualified Code(s): I48.1 - Persistent atrial fibrillation (4) End stage renal disease on dialysis Current Visit: Yes Status: Chronic Assessment and plan: Management per nephrology (5) COPD (chronic obstructive pulmonary disease) Current Visit: No Status: Chronic Assessment and plan: Stable, not contributing to patient's respiratory distress. Qualifiers: COPD type: unspecified COPD Qualified Code(s): J44.9 - Chronic obstructive pulmonary disease, unspecified (6) Hyperlipidemia Current Visit: Yes Status: Chronic Assessment and plan: On high intensity statin, Crestor 20 mg daily Qualifiers: Hyperlipidemia type: unspecified Qualified Code(s): E78.5 - Hyperlipidemia , unspecified (7) Nonischemic cardiomyopathy Current Visit: No Status: Chronic Assessment and plan: With last ejection fraction recorded on January 25 was 15-20% (8) Obesity (BMI 30-39.9) Current Visit: Yes Status: Chronic (9) ZAINAB (obstructive sleep apnea) Current Visit: Yes Status: Chronic (10) DVT prophylaxis Current Visit: Yes Status: Acute Assessment and plan: Heparin 5000 units subcutaneous every 12 hours - Subjective Interval history: Patient has returned from dialysis. States that he feels better in terms of his breathing. - Constitutional Vitals: Temp Pulse Resp BP Pulse Ox 97.7 F 81 16 81/57 96 02/07/17 14:20 02/07/17 15:18 02/07/17 15:18 02/07/17 15:18 02/07/17 15:18 General appearance: Present: A&O X 3, morbidly obese, pleasant, no acute distress, answers questions appropriately Exam: - General appearance: Present: A&O X 3, morbidly obese, pleasant, no acute distress, answers questions appropriately - Head Head exam: Present: atraumatic - Eye Eye exam: Present: EOMI - ENT ENT exam: Present: MMM - Respiratory Respiratory exam: Present: rales (Bilateral), non labored resperations. Absent : accessory muscle use, chest wall tenderness, rhonchi, wheezes - Cardiovascular Cardiovascular exam: Present: irregular rhythm, +S1, +S2, systolic murmur, normal rate - GI/Abdominal GI/Abdominal exam: Present: non-distended, soft. Absent: firm, guarding, tenderness - Extremities Exam Extremities exam: Present: 2+pedal edema, radial pulses palpable 2+ biateral. Absent: Cyanosis - Neurological Exam Neurological exam: Present: alert, oriented X3, no focal deficits. Absent: facial droop, speech deficit Internal Medicine: Result - Labs CBC & Chem 7: 02/07/17 02:49 02/07/17 02:49 Labs: Short CBC 02/07/17 Range/Units 02:49 WBC 6.4 (4.3-11.1) K/mcL Hgb 11.4 L (12.9-16.9) g/dL Hct 37.6 (37.5-50.1) % Plt Count 91 L (140-400) K/mcL Neutrophils # 4.4 (1.6-8.9) K/mcL BMP 02/07/17 02:49 Sodium 138 Potassium 4.9 H Chloride 102 Carbon Dioxide 22 BUN 54 H Creatinine 9.67 H Glucose 256 H Calcium 6.7 L Cardiac Enzymes 02/07/17 02/07/17 Range/Units 02:49 11:10 Troponin I 0.04 H* 0.02 (0-0.03) ng/mL - ABG Interpretation ABG results: PT/INR, D-dimer PT 15.5 Seconds (9.4-12.1) H 02/07/17 02:49 Consult Discharge Plan - Plan Referrals: Arthur Pozo MD [Primary Care Provider] -
[2017-02-07] MEDS ORDERED: 0.9 % Sodium Chloride 500 ML IVC ONE (18:56)
[2017-02-07] MEDS ORDERED: 0.9 % Sodium Chloride 500 ML ONE (19:12)
--- NOTE | 2017-02-07 19:16 | Electrocardiograph Report ---
[address] [address] Test Date: 2017-02-06 Pat Name: Eduar Hatch Department: 103 Room: 2N06 Gender: M Wood Coater: CRISTIANO : 1970 Requested By: Fernando Alvarez Order Number: [id number] Reading MD: Graham Millan MD Measurements Intervals [place] Rate: 127 P: [place]: 0 QRS: 140 QRSD: 88 T: 16 QT: 337 QTc: 412 Interpretive Statements ATRIAL FIBRILLATION WITH RAPID VENTRICULAR RESPONSE Poor R wave progression Electronically Signed On 02-07-2017 19:14:54 EDT by Graham Millan MD
[2017-02-08] MEDS: Ipratropium/Albuterol Neb 3 ML IH SCH ×4 (03:50→21:21)
[2017-02-08 06:02] LABS: Hematocrit 39.8 % (37.5-50.1); Hemoglobin 11.7 g/dL (12.9-16.9); INR 1.4; Mean Corpuscular HGB Conc 29.4 g/dL (31.6-35.5); Prothrombin Time 14.9 Seconds (9.4-12.1)
[2017-02-08 06:04] LABS: Basophils % 0.6 %; Eosinophils # 0.1 K/mcL (0.0-0.6); Eosinophils % 1.2 %; Immature Granulocytes % 0.4 % (0-4); Immature Platelets 12.1 % (1.1-6.1); Lymphocytes # 0.9 K/mcL (0.6-4.6); Lymphocytes % 18.8 %; Mean Corpuscular Hemoglobin 27.3 pg (28.0-33.3); Mean Platelet Volume 11.5 fL (9.4-12.4); Monocytes # 0.5 K/mcL (0.0-1.3); Monocytes % 10.8 %; Neutrophils # 3.4 K/mcL (1.6-8.9); Nucleated Red Blood Cells 0.8 /100 WBC (0); Red Blood Count 4.28 M/mcL (4.19-5.50); Red Cell Distribution Width 18.7 % (11.5-14.5); Segmented Neutrophils % 68.2 %
[2017-02-08 06:12] LABS: Calcium 6.5 mg/dL (8.6-10.8)
[2017-02-08 06:14] LABS: Potassium 6.2 mEq/L (3.5-4.5)
[2017-02-08 06:22] LABS: Platelet Count 92 K/mcL (140-400)
[2017-02-08 06:24] LABS: Anisocytosis 1+ (Not Present); Platelet Estimate Decreased (Normal); Polychromasia 1+ (Not Present)
[2017-02-08 06:25] LABS: Large Platelets Present (Not Present); Poikilocytosis 1+ (Not Present)
[2017-02-08] MEDS: Famotidine 20 MG/2 ML VIAL IVP SCH (06:39)
[2017-02-08] MEDS: *HR* Heparin 5,000 UNIT/ML VIAL SQ SCH ×2 (06:39→17:31)
[2017-02-08] MEDS: Calcium Acetate 667 MG CAPSULE PO SCH ×3 (07:52→15:43)
[2017-02-08] MEDS: Insulin LISPRO 300 UNITS/3 ML VIAL SQ SCH ×5 (07:54→23:46)
[2017-02-08] MEDS: SALMON OIL PO SCH (08:03)
[2017-02-08] MEDS: FATTY ACIDS PO SCH (08:03)
[2017-02-08] MEDS: OMEGA PO SCH (08:03)
--- NOTE | 2017-02-08 08:21 | Nephrology Progress Note ---
Date of Encounter: 02/08/17 Time of Encounter: 08:19 - Assessment and Plan (1) End stage renal disease on dialysis Current Visit: Yes Status: Chronic The patient will undergo dialysis today. Fluid removal is limited by chronic low blood pressure. I did request that the patient's nurse notify respiratory therapy that the patient needs maintenance for his CPAP machine at home. This should be done prior to hospital discharge. (2) Fluid overload Current Visit: No Status: Acute Qualifiers: Hypervolemia type: unspecified Qualified Code(s): E87.70 - Fluid overload, unspecified (3) Nonischemic cardiomyopathy Current Visit: No Status: Chronic (4) Atrial fibrillation Current Visit: No Status: Chronic Qualifiers: Atrial fibrillation type: chronic Qualified Code(s): I48.2 - Chronic atrial fibrillation Subjective Interval history: Patient reports he is feeling fairly well. His main concern is that of a malfunctioning CPAP machine at home. He is scheduled for his usual dialysis today. He did have additional ultrafiltration yesterday because of fluid retention. Potassium is 6.2. He will be dialyzed on a 2K bath. Objective - Vital Signs Vital signs: Vital Signs Temp Pulse Resp BP Pulse Ox 02/08/17 08:09 97.9 F 89 18 90/66 92 02/08/17 04:16 97.4 F L 84 19 88/65 93 02/08/17 00:00 76 02/07/17 22:51 78 20 72/43 93 02/07/17 20:00 82 02/07/17 19:15 84 20 72/60 91 02/07/17 19:05 72/60 02/07/17 17:30 77/57 02/07/17 16:28 18 91 02/07/17 15:18 81 16 81/57 96 02/07/17 14:20 97.7 F 20 104/66 02/07/17 13:55 112/44 02/07/17 13:40 94/41 02/07/17 13:25 100/43 02/07/17 13:10 110/56 02/07/17 12:55 119/76 02/07/17 12:40 126/78 02/07/17 12:25 131/72 02/07/17 12:10 93/42 02/07/17 11:55 93/42 10/01/17 11:40 90/48 02/07/17 11:25 99/56 02/07/17 11:10 102/57 02/07/17 10:55 97.7 F 20 91/59 02/07/17 10:19 20 90 Intake and Output 02/07/17 02/08/17 02/08/17 23:59 07:59 15:59 Intake Total 210 / 210 Output Total 0 / 0 Balance 210 / 210 Intake: Oral 210 / 210 Output: Urine 0 / 0 Other: Meal Dinner Percent of Meal Consumed 100% # Voids 0 # Bowel Movements 0 Weight 127.8 kg Blood Glucose* 150 207 - General Appearance Exam: Patient is alert and oriented. He is in no acute distress. Lungs sounds otherwise clear. Heart irregular rate and rhythm with a 2/6 talk ejection murmur. Abdomen is protuberant. There is no tenderness. There is 2-3+ lower extremity swelling. There is a functioning AV fistula in the left upper extremity. - Lab 02/08/17 05:51 02/08/17 05:51 Most recent lab results Calcium 6.5 mg/dL (8.6-10.8) L 02/08/17 05:51 Magnesium 2.4 mg/dL (1.6-2.6) 02/07/17 02:49 Consult Discharge Plan - Plan Referrals: Arthur Pozo MD [Primary Care Provider] -
[2017-02-08] MEDS ORDERED: 0.9 % Sodium Chloride 250 ML IVC PRN (08:22)
[2017-02-08] MEDS ORDERED: 0.9 % Sodium Chloride 2,000 ML ONE (11:54)
[2017-02-08] MEDS: *HR* Amiodarone 200 MG TABLET PO SCH ×2 (15:43→20:58)
[2017-02-08] MEDS: Ammonium Lactate 30 APPL/225 GM BOTTLE TP SCH ×2 (15:44→21:10)
--- NOTE | 2017-02-08 18:39 | Internal Med Progress Note ---
Date of Encounter: 02/08/17 Time of Encounter: 10:50 - Assessment and plan (1) Fluid overload Current Visit: No Status: Acute Assessment and plan: Secondary to end-stage renal disease and systolic heart failure. Patient was scheduled and had dialysis today he does have improvement and breathing. Continue beta ga Coreg Qualifiers: Hypervolemia type: unspecified Qualified Code(s): E87.70 - Fluid overload, unspecified (2) Acute systolic heart failure Current Visit: Yes Status: Acute Assessment and plan: Patient states that he had a frozen dinner and did not know that it was high in sodium content. Most likely acute systolic heart failure is related to this. (3) Atrial fibrillation Current Visit: No Status: Chronic Assessment and plan: for rate control; continue amiodarone and carvedilol. Currently rate controlled. For anticoagulation he is on Coumadin. He has a history of non-compliance with medications. He may benefit taking Eliquis as a ESRD patient which would make it easier to comply. CM/SW will see if insurance covers. Qualifiers: Atrial fibrillation type: chronic Qualified Code(s): I48.2 - Chronic atrial fibrillation (4) End stage renal disease on dialysis Current Visit: Yes Status: Chronic (5) COPD (chronic obstructive pulmonary disease) Current Visit: No Status: Chronic Qualifiers: COPD type: unspecified COPD Qualified Code(s): J44.9 - Chronic obstructive pulmonary disease, unspecified (6) Hyperlipidemia Current Visit: Yes Status: Chronic Qualifiers: Hyperlipidemia type: unspecified Qualified Code(s): E78.5 - Hyperlipidemia , unspecified (7) Nonischemic cardiomyopathy Current Visit: No Status: Chronic (8) Obesity (BMI 30-39.9) Current Visit: Yes Status: Chronic (9) ZAINAB (obstructive sleep apnea) Current Visit: Yes Status: Chronic (10) DVT prophylaxis Current Visit: Yes Status: Acute - Subjective Interval history: No acute issues, no complaints. BP was low yesterday after dialysis in 70s/30s , improved w gentle hydration. Today post dialysis BP better 90s/50s at the lowest. - Constitutional Vitals: Temp Pulse Resp BP Pulse Ox 97.4 F L 122 18 105/26 96 02/08/17 18:17 02/08/17 15:11 02/08/17 18:17 02/08/17 18:17 02/08/17 18:17 General appearance: Present: A&O X 3, morbidly obese, pleasant, no acute distress, answers questions appropriately - Respiratory Respiratory exam: Present: rales. Absent: accessory muscle use, decreased breath sounds, respiratory distress, wheezes - Cardiovascular Cardiovascular exam: Present: RRR, +S1, +S2. Absent: diastolic murmur, gallop, rubs, systolic murmur - Extremities Exam Extremities exam: Present: warm, radial pulses palpable and symmetrical. Absent : calf tenderness, cyanotic, pedal edema Internal Medicine: Result - Labs CBC & Chem 7: 02/08/17 05:51 02/08/17 15:03 Labs: Short CBC 02/08/17 Range/Units 05:51 WBC 5.0 (4.3-11.1) K/mcL Hgb 11.7 L (12.9-16.9) g/dL Hct 39.8 (37.5-50.1) % Plt Count 92 L (140-400) K/mcL Neutrophils # 3.4 (1.6-8.9) K/mcL BMP 02/08/17 02/08/17 05:51 15:03 Sodium 135 L Potassium 6.2 H D 3.8 D Chloride 99 Carbon Dioxide 21 BUN 63 H Creatinine 10.72 H Glucose 165 H Calcium 6.5 L - ABG Interpretation ABG results: PT/INR, D-dimer PT 14.9 Seconds (9.4-12.1) H 02/08/17 05:51 Consult Discharge Plan - Plan Referrals: Arthur Pozo MD [Primary Care Provider] - (SENT WEB REQUEST ON 02-08-17 @ 1004 POSSIBLE RESCHEDULE. PATIENT HAS AN APPOINTMENT ON 02-10-17 @ 0900)
[2017-02-08] MEDS: Budesonide/Formoterol 160/4.5 MDI IH SCH (21:21)
[2017-02-09] MEDS ORDERED: Ketorolac 15 MG/ML VIAL IVP ONE (02:55)
[2017-02-09] MEDS: Ipratropium/Albuterol Neb 3 ML IH SCH ×2 (04:51→09:06)
[2017-02-09] MEDS: Famotidine 20 MG/2 ML VIAL IVP SCH (05:09)
[2017-02-09 05:28] LABS: Eosinophils % 1.3 %; Hemoglobin 11.5 g/dL (12.9-16.9); Mean Platelet Volume 12.2 fL (9.4-12.4); Monocytes % 9.6 %
[2017-02-09 05:30] LABS: Basophils % 0.4 %; Eosinophils # 0.1 K/mcL (0.0-0.6); Hematocrit 38.2 % (37.5-50.1); Immature Granulocytes % 0.4 % (0-4); Immature Platelets 11.6 % (1.1-6.1); Lymphocytes % 23.3 %; Mean Corpuscular HGB Conc 30.1 g/dL (31.6-35.5); Mean Corpuscular Hemoglobin 27.4 pg (28.0-33.3); Monocytes # 0.4 K/mcL (0.0-1.3); Neutrophils # 2.9 K/mcL (1.6-8.9); Red Cell Distribution Width 18.9 % (11.5-14.5)
[2017-02-09 05:34] LABS: Lymphocytes # 1.1 K/mcL (0.6-4.6); Platelet Count 83 K/mcL (140-400)
[2017-02-09 05:41] LABS: INR 1.4; Prothrombin Time 15.1 Seconds (9.4-12.1)
[2017-02-09] MEDS: *HR* Heparin 5,000 UNIT/ML VIAL SQ SCH (05:50)
[2017-02-09] MEDS: Insulin LISPRO 300 UNITS/3 ML VIAL SQ SCH (05:54)
[2017-02-09 05:59] LABS: Calcium 6.5 mg/dL (8.6-10.8); Potassium 4.4 mEq/L (3.5-4.5)
[2017-02-09] MEDS: *HR* Amiodarone 200 MG TABLET PO SCH (08:01)
[2017-02-09] MEDS: Ammonium Lactate 30 APPL/225 GM BOTTLE TP SCH (08:10)
[2017-02-09] MEDS ORDERED: 0.9 % Sodium Chloride 250 ML IVC PRN (08:12)
--- NOTE | 2017-02-09 08:27 | Nephrology Progress Note ---
Date of Encounter: 02/09/17 Time of Encounter: 08:25 - Assessment and Plan (1) End stage renal disease on dialysis Current Visit: Yes Status: Chronic Fluid overload due to ESRD and chronic systolic CHF. Will ultrafiltrate today for fluid removal. Orders given. Will have HD tomorrow, keeping MWF schedule. Subjective Interval history: Sitting up in chair, eating breakfast. Objective - Vital Signs Vital signs: Vital Signs Temp Pulse Resp BP Pulse Ox 02/09/17 07:29 105 20 98/76 95 02/09/17 04:51 21 96 02/09/17 03:11 97.6 F 108 18 98 02/09/17 02:52 112 93/88 02/08/17 23:11 97.5 F L 112 16 89/60 93 02/08/17 21:21 20 94 02/08/17 21:12 115 93 02/08/17 18:17 97.4 F L 18 105/26 96 02/08/17 16:32 16 96/65 93 02/08/17 15:11 97.4 F L 122 16 96/65 93 02/08/17 14:25 97.8 F 17 107/52 02/08/17 14:15 102/63 02/08/17 13:45 100/58 02/08/17 13:15 93/74 02/08/17 12:45 112/58 02/08/17 12:15 99/61 02/08/17 11:45 94/73 02/08/17 11:15 97/63 02/08/17 10:45 98/57 02/08/17 10:15 94/72 02/08/17 09:45 97.8 F 17 95/60 Intake and Output 02/08/17 02/09/17 02/09/17 23:59 07:59 15:59 Intake Total 520 / 520 680 / 680 Balance 520 / 520 680 / 680 Intake: Oral 520 / 520 680 / 680 Other: # Voids 1 Weight 121.5 kg Blood Glucose* 103 174 Patient Weight 02/09/17 23:59 Weight 121.5 kg - General Appearance General appearance: Present: well-developed, well-nourished, appears started age , obese EENT: Present: mucous membranes moist Neck: Present: no JVD Cardiology: Present: edema, irregular rhythm Additional Comments: 1+ LE Gastrointestinal: Present: normoactive bowel sounds, no tenderness Integumentary: Present: warm and dry Neurologic: Present: alert and oriented x3 Psychiatric: Present: mood/affect appropriate, cooperative - Lab 02/09/17 04:43 02/09/17 04:43 Most recent lab results Calcium 6.5 mg/dL (8.6-10.8) L 02/09/17 04:43 Magnesium 2.4 mg/dL (1.6-2.6) 02/07/17 02:49 Consult Discharge Plan - Plan Referrals: Arthur Pozo MD [Primary Care Provider] - (SENT WEB REQUEST ON 02-08-17 @ 1005 POSSIBLE RESCHEDULE. PATIENT HAS AN APPOINTMENT ON 02-10-17 @ 0900)
[2017-02-09] MEDS: Calcium Acetate 667 MG CAPSULE PO SCH ×2 (08:55→11:14)
[2017-02-09] MEDS: Budesonide/Formoterol 160/4.5 MDI IH SCH (09:06)
--- NOTE | 2017-02-09 10:20 | Event Note ---
Date of Encounter: 02/09/17 Time of Encounter: 10:05 Notified by staff that patient only UF for 25 minutes. Patient somnolent and somewhat difficult to arouse. He denies taking any medication other than what was given by staff. He denies any visitors this morning. It has been thought in past that has used recreational drugs prior to his somnolence. My recommendation is not to discharge patient home as was the plan and certainly without verification that his home CPAP machine is properly functioning.
[2017-02-09 11:16] VITALS: BP 101/63
[2017-02-09] MEDS ORDERED: 0.9 % Sodium Chloride 2,000 ML ONE (12:47)
--- NOTE | 2017-02-09 13:56 | Discharge Summary ---
Date of Encounter: 02/09/17 Time of Encounter: 13:51 - Discharge Diagnosis (1) Fluid overload Priority: Primary Status: Acute Qualifiers: Hypervolemia type: unspecified Qualified Code(s): E87.70 - Fluid overload, unspecified (2) Nonischemic cardiomyopathy Priority: Secondary Status: Chronic (3) Anemia Priority: Secondary Status: Chronic Qualifiers: Anemia type: other cause Other causes of anemia: chronic disease, other Qualified Code(s): D63.8 - Anemia in other chronic diseases classified elsewhere (4) End stage renal disease on dialysis Priority: Secondary Status: Chronic (5) Hyperlipidemia Priority: Secondary Status: Chronic Qualifiers: Hyperlipidemia type: unspecified Qualified Code(s): E78.5 - Hyperlipidemia , unspecified (6) Diabetes mellitus Priority: Secondary Status: Chronic Qualifiers: Diabetes mellitus type: type 2 Diabetes mellitus complication status: with kidney complications Diabetes mellitus complication detail: with chronic kidney disease Diabetes mellitus longterm insulin use: unspecified longterm insulin use status Chronic kidney disease stage: on chronic dialysis Qualified Code(s): E11.22 - Type 2 diabetes mellitus with diabetic chronic kidney disease; N18.6 - End stage renal disease; N18.6 - End stage renal disease ; N18.6 - End stage renal disease; N18.6 - End stage renal disease; Z99.2 - Dependence on renal dialysis; Z99.2 - Dependence on renal dialysis; Z99.2 - Dependence on renal dialysis; Z99.2 - Dependence on renal dialysis (7) COPD (chronic obstructive pulmonary disease) Priority: Secondary Status: Chronic Qualifiers: COPD type: unspecified COPD Qualified Code(s): J44.9 - Chronic obstructive pulmonary disease, unspecified (8) Atrial fibrillation Priority: Secondary Status: Chronic Qualifiers: Atrial fibrillation type: chronic Qualified Code(s): I48.2 - Chronic atrial fibrillation (9) Obesity (BMI 30-39.9) Priority: Secondary Status: Chronic - Discharge Medications Prescriptions: Apixaban [Eliquis] 5 mg PO BID #60 tablet Home Medications: [place] Oil/[place]-3 Fatty Acids [Fish Oil 500 mg Softgel] 1 cap PO DAILY #0 01/07 [History] Cinacalcet HCl [Sensipar] 120 mg PO DAILY 09/02/16 [History] Ammonium Lactate [Amlactin] 1 appl TP BID 01/22/17 [History] Calcium Acetate [Phos-LO] 2,668 mg PO TID 01/22/17 [History] Carvedilol [Coreg] 50 mg PO BID 01/22/17 [History] Pregabalin [Lyrica] 100 mg PO TID 01/22/17 [History] Rosuvastatin Calcium 20 mg PO DAILY 01/22/17 [History] Amiodarone [Cordarone] 200 mg PO BID tablet 02/09/17 [Rx] Apixaban [Eliquis] 5 mg PO BID #60 tablet 02/09/17 [Rx] Insulin ASPART [NovoLOG] 10 - 12 unit SQ TID PRN 02/09/17 [History] Insulin Glargine [Lantus] 20 unit SQ BID 02/09/17 [History] Allergies/Adverse Reactions: 3 Allergy/AdvReac Type Severity Reaction Status Date / Time hydrocodone [From [place]] Allergy Intermediate Hives Verified 09/29/16 16:59 lanolin AdvReac Swelling Verified 11/18/16 10:51 [From [employer] of the Eye mineral oil AdvReac Swelling Verified 11/18/16 10:50 [From [employer] of the Eye petrolatum,white AdvReac Swelling Verified 11/18/16 10:50 [From [employer] of the Eye Procedures/tests Complete & Pending: Procedures Performed prior 72 hours Category Date Time Status EKG [ECG 12 lead ECG] [ECG] Routine Y 02/08/17 07:54 Ordered Date of admission: 02/07/17 02:33 Primary care physician: Arthur Pozo MD Consults: 02/07/17 10:15 Consult to Dialysis [CONS] ONCE 02/08/17 08:30 Consult to Dialysis [CONS] ONCE 02/09/17 08:15 Consult to Dialysis [CONS] ONCE Discharging clinician: Claudette Kent Anticipated date of discharge: 02/09/17 - Patient Status Disposition: Home, Self-Care Condition: Fair Functional capacity at discharge: independent ambulation Overall status at discharge: patient is progressing back to baseline - Discharge Instructions Instructions: Apixaban (By mouth), Atrial Fibrillation (DC), Dialysis Diet (DC) , End-Stage Kidney Disease (DC) Follow Up With: Arthur Pozo MD [Primary Care Provider] - 02/15/17 9:45 am () Additional Instructions: F/up with PCP in 1-2 weeks F/up with HD 3 times/week - Diet and Activity Activity: resume usual activities as tolerated, wear oxygen at all times, other (CPAP at night) Diet: diabetic diet, low fat, low cholesterol, low salt diet, other (renal diet) Hospital course: Mr. Hatch is a 46 year old male with multiple medical problems as above and recurrent hospital admissions for volume overload, was admitted with shortness of breath and noted to have fluid overload. He does have end-stage renal disease, on long-term hemodialysis and underlying nonischemic cardiomyopathy. He reports compliance to medications and dialysis, although there is reason to suspect otherwise. Nephrology was consulted and patient underwent 2 consecutive sessions of hemodialysis with significant improvement in respiratory status. Patient was noted to have episodes of extreme somnolence, suspected to be malingering versus ineffective CPAP machine. He is having his home CPAP machine evaluated by a home health services and is otherwise medically stable for discharge. He is also very anxious to go home, his mother is at bedside to give him a ride. Patient is also recommended to increase his amiodarone to twice daily on nondialysis days as he is noted to have resting tachycardia. Due to noncompliance, he is recommended to switch oral anticoagulation to NOAC from Coumadin, to which she is agreeable. Flores check has been done and patient is noted to have $0 co-pay for [employer]. - Time Spent with Patient Total time spent providing and/or coordinating discharge services: Greater than 30 minutes (45 min) - Constitutional Vitals: Temp Pulse Resp BP Pulse Ox 97.2 F L 108 16 101/63 100 02/09/17 11:14 02/09/17 11:14 02/09/17 11:14 02/09/17 11:14 02/09/17 11:14 General appearance: Present: A&O X 3, obese, answers questions appropriately - Respiratory Respiratory exam: Present: CTAB. Absent: accessory muscle use, rales, rhonchi, wheezes - Cardiovascular Cardiovascular exam: Present: irregular rhythm, +S1, +S2, tachycardia. Absent: diastolic murmur, gallop, rubs, systolic murmur
== END 2017-02-09 14:25 | disposition home or self-care (01) | DRG 291 ==
LOC: 2NNU 22:23 → EMEROO 22:23 → 2NNU 02-07 01:41 → SUATTDRO 02-07 02:33
PROVIDERS: ADMIT Hospitalist; ATTEND Internal Medicine

== ENCOUNTER 2018-03-20 13:49 | Observation (INO) ==
--- NOTE | 2018-03-20 14:05 | Emergency Department Note ---
Disposition Clinical Impression: Hyperglycemia, Elevated troponin, ESRD (end stage renal disease), Hyperkalemia CHF (congestive heart failure) Qualifiers: Heart failure type: unspecified Heart failure chronicity: unspecified Qualified Code(s): I50.9 - Heart failure, unspecified Chest pain Qualifiers: Chest pain type: unspecified Qualified Code(s): R07.9 - Chest pain, unspecified Disposition: Admitted As Inpatient Condition: Fair Time of Disposition: 15:44 General Adult HPI - General Chief complaint: ED Shortness of Breath/Dyspnea Stated complaint: "CHF,edema" Time Seen by Provider: 03/20/18 14:04 Source: patient Mode of arrival: ambulatory Limitations: no limitations Nursing Notes Reviewed: Yes Vital Signs Reviewed: Yes - History of Present Illness HPI Narrative: 47-year-old male with history of end-stage renal disease, hypertension, diabetes presents for evaluation of chest pain shortness of breath and edema. Patient states he completed his dialysis on Wednesday. Notes to have gotten shortness of breath and chest pain that started early this morning upon awakening. Notes left-sided chest pain without radiation. No nausea vomiting or diaphoresis. This chest pain at rest also with exertion. Patient notes increasing weight gain. States he did have a decreasing fluid and salt this weekend. Notes a 15 pound weight gain. Patient also has right-sided unilateral swelling which is worsened over the past 2 months. Denies history of DVT but states he did have that right lower extremity evaluated last year. Patient denies any abdominal pain. No history of heart attacks. Patient states he does have oxygen at home which he does not wear 24 hours a day. States he does have dialysis tomorrow. Pain Scale: 0 - Related Data Home Medications Medication Instructions Recorded Confirmed Ammonium Lactate [Amlactin] 1 appl TP BID 01/22/17 03/20/18 Calcium Acetate [Phos-LO] 2,668 mg PO TIDWM 01/22/17 03/20/18 Pregabalin [Lyrica] 100 mg PO TID 01/22/17 03/20/18 Insulin ASPART [NovoLOG] 10 - 12 unit SQ TID PRN 02/09/17 03/20/18 Insulin Glargine [Lantus] 20 unit SQ BID 02/09/17 03/20/18 [place] Oil/[place]-3 Fatty Acids 1 each PO DAILY 03/20/18 03/20/18 [[place] Oil 1,000 mg Softgel] Allergies Allergy/AdvReac Type Severity Reaction Status Date / Time hydrocodone [From [place]] Allergy Intermediate Hives Verified 03/20/18 13:54 lanolin AdvReac Swelling Verified 03/20/18 13:54 [From [employer] of the Eye mineral oil AdvReac Swelling Verified 03/20/18 13:54 [From [employer] of the Eye petrolatum,white AdvReac Swelling Verified 03/20/18 13:54 [From [employer] of the Eye All systems ED: reviewed and negative except as stated. Constitutional: Denies: fever Cardiovascular: Reports: chest pain Respiratory: Reports: dyspnea. Denies: cough, sputum production Gastrointestinal: Denies: abdominal pain, nausea, vomiting Past Medical History - Past Medical History Source: patient Medical history: Reports: arthritis, atrial fibrillation, cardiomyopathy, CHF, COPD, diabetes, dialysis, GERD, hyperlipidemia, hypertension, osteoporosis, renal disease, other Surgical history: Reports: herniorrhaphy, vascular surgery, other Psychiatric history: Reports: anxiety, depression, PTSD, other - Social History Smoking Status: Former smoker Smokeless Tobacco Status: No Alcohol use: Reports: none Drug use: Reports: marijuana Physical Exam - General Limitations: no limitations General appearance: alert, in no apparent distress, obese - Head Head exam: atraumatic, normocephalic, normal inspection - Eye Eye exam: Present: normal appearance, PERRL, EOMI. Absent: scleral icterus - ENT ENT exam: normal exam - Neck Neck exam: Present: normal inspection - Chest Chest inspection: Present: normal inspection, symmetric chest wall rise - Respiratory Respiratory exam: Present: other (Diffusely diminished). Absent: respiratory distress, prolonged expiratory phase - Cardiovascular Cardiovascular exam: Present: regular rate, normal rhythm. Absent: systolic murmur - Abdominal Exam Abdominal exam: Present: soft, Non-Tender - Extremities Exam Extremities exam: Present: other (Significant asymmetric right lower extremity unilateral swelling. 3+ pedal edema on the right 1-2+ pedal edema on the left. No overlying erythema or concerns cellulitis. No crepitus.) - Expanded Upper Extremity Exam Forearm/Wrist exam: Present: other (Functioning left upper action be fistula with a palpable thrill.) - Expanded Lower Extremity Exam Neurovascular/Tendon exam: Present: normal capillary refill - Back Exam Back exam: Present: normal inspection - Neurological Exam Neurological exam: Present: alert, CN II-XII intact - Skin Skin exam: Present: warm, dry, intact, normal color Course Course Narrative: Patient resents for concerns of chest pain shortness of breath and edema. A ESRD has end-stage renal disease with dialysis Wednesday, Wed, Wednesday. Patient's chest pain started this morning. Notes chest pain currently. Will obtain labs, troponin, EKG, CXR and ultrasound of the left lower leg. Bedside lung ultrasound does reveal some scattered B lines. - Reevaluation(s) Reevaluation #1: Patient seen and examined. Time: 15:26 - Consultations Consultation #1: Discussed case with Dr. Joaquin who will see the patient as an inpatient. Time: 15:25 Vital Signs Temperature 97.5 F L 03/20/18 13:50 Pulse Rate 92 03/20/18 13:50 Respiratory Rate 20 03/20/18 13:50 Blood Pressure 175/114 03/20/18 13:50 O2 Sat by Pulse Oximetry 95 03/20/18 13:50 Temperature 97.5 F L 03/20/18 14:03 Pulse Rate 92 03/20/18 14:03 Respiratory Rate 20 03/20/18 14:03 Blood Pressure 175/114 03/20/18 14:03 O2 Sat by Pulse Oximetry 95 03/20/18 14:03 Oxygen Delivery Oxygen Delivery Room Air Medical Decision Making - [facility] Narrative Medical decision making narrative: Patient presented for concerns of heart failure and edema. Patient is noncompliant with his diet regarding his HD. Patient's workup reveals an elevated troponin which is been elevated in the past was no signs of ST elevation. Patient was given aspirin. Patient also had a ultrasound of the right leg did not show any DVT. Patient's labs reviewed shows hyperglycemia without evidence of acidosis. Patient was given 10 units of insulin. Patient does have a lentoid abnormalities including hyperkalemia without secondary signs of rhythm changes on EKG. Patient also is hyponatremic likely secondary to the patient's status as well as hyperglycemia. Patient will be admitted to the hospital service for resolution of electronic derangement as well as dialysis and cardiopulmonary monitoring regarding his elevated troponin. Patient's case was discussed with the on-call supervisor packing who will evaluate the patient. Patient does not significantly produce any urine and diuresis was not performed in the ED. - Medical Records Medical records reviewed: Yes I reviewed the patient's medical records. Impressions: LVEF 20-25%. Mildly dilated left ventricle. Mild concentric left ventricular hypertrophy. Severe global left ventricular systolic dysfunction. Indeterminate diastolic function. Moderately dilated right ventricle. Moderate right ventricular hypokinesis. Moderately dilated left atrium. Severely dilated right atrium. Mild mitral regurgitation. Mild-moderate tricuspid regurgitation. Mild pulmonary hypertension. Estimated RVSP is 37 mmHg, including an estimated RA pressure of 20 mmHg. Small pericardial effusion present, which is predominantly located along the inferolateral segments of LV. No echocardiographic evidence of tamponade. The IVC is dilated, < 50% respiratory change. - Lab Data Lab results reviewed: Yes I reviewed the patient's lab results. Result diagrams: 03/20/18 14:17 03/20/18 14:17 Lab Results 03/20/18 03/20/18 03/20/18 Range/Units 14:17 14:17 14:17 WBC 5.4 (4.3-11.1) K/mcL RBC 4.62 (4.19-5.50) M/mcL Hgb 12.3 L (12.9-16.9) g/dL Hct 38.3 (37.5-50.1) % MCV 82.9 L (83.0-100.0) fL MCH 26.6 L (28.0-33.3) pg MCHC 32.1 (31.6-35.5) g/dL RDW 16.4 H (11.5-14.5) % Plt Count 133 L (140-400) K/mcL MPV 11.5 (9.4-12.4) fL Immature Gran % 1.1 (0-4) % Seg Neutrophils % 67.4 % Lymphocytes % 22.4 % Monocytes % 7.0 % Eosinophils % 1.5 % Basophils % 0.6 % Neutrophils # 3.7 (1.6-8.9) K/mcL Lymphocytes # 1.2 (0.6-4.6) K/mcL Monocytes # 0.4 (0.0-1.3) K/mcL Eosinophils # 0.1 (0.0-0.6) K/mcL Basophils # 0.0 (0.0-0.2) K/mcL Sodium 126 L (136-145) mEq/L Potassium 5.8 H (3.5-5.1) mEq/L Chloride 87 L (98-107) mEq/L Carbon Dioxide 23 (23-29) mEq/L BUN 64 H (6-20) mg/dL Creatinine 11.01 H (0.70-1.30) mg/dL Est GFR ( Amer) 6 L (> 60) Est GFR (Non-Af Amer) 5 L (> 60) BUN/Creatinine Ratio 6 (6-26) Glucose 611 H* (70-105) mg/dL Calculated Osmolality 309 H (280-300) Calcium 8.7 (8.6-10.3) mg/dL Troponin I 0.06 H* (< 0.04) ng/mL B-Natriuretic Peptide 743 H (Less than 100) pg/mL - Radiology Data Radiology results reviewed: Yes I reviewed the patient's radiology results. Chest X-Ray 03/20/18 14:28 IMPRESSION: Cardiomegaly with interstitial edema. D/ / Kamala Gannon MD / Kamala Gannon MD Interpreting Provider: Kamala Gannon MD - EKG Data EKG #1 EKG attestation: Yes I reviewed and interpreted this EKG. EKG shows normal: sinus rhythm Rate: normal Rhythm: NSR [place]/QRS: normal P waves: SKY Q waves: v1 Interpretation: no acute changes, nonspecific ST-T wave changes S.B.ACarlozRCarloz - S.Ernst.AJarvis Situation: Demographics Background: Presenting Complaint Assessment: Vital Signs, Course and respsone to treatment, Patient/Family Expectation Recommendation: Barrier(s) to disposition, Recommendation based on pending studies, treatments, or consults S.B.AJarvis Report Given to: Hospitalist Yessenia Repor Time: 15:33
[2018-03-20] MEDS ORDERED: Aspirin 325 MG TABLET PO ONE (14:28)
[2018-03-20] MEDS ORDERED: Nitroglycerin 0.4 MG TAB.SUBL SL PRN (14:30)
[2018-03-20 14:47] LABS: Hematocrit 38.3 % (37.5-50.1); Hemoglobin 12.3 g/dL (12.9-16.9); Immature Granulocytes % 1.1 % (0-4); Lymphocytes % 22.4 %; Mean Corpuscular HGB Conc 32.1 g/dL (31.6-35.5); Mean Corpuscular Hemoglobin 26.6 pg (28.0-33.3); Mean Corpuscular Volume 82.9 fL (83.0-100.0); Mean Platelet Volume 11.5 fL (9.4-12.4); Platelet Count 133 K/mcL (140-400); Red Blood Count 4.62 M/mcL (4.19-5.50); Red Cell Distribution Width 16.4 % (11.5-14.5); Segmented Neutrophils % 67.4 %
[2018-03-20 14:48] LABS: Basophils % 0.6 %; Eosinophils # 0.1 K/mcL (0.0-0.6); Eosinophils % 1.5 %; Lymphocytes # 1.2 K/mcL (0.6-4.6); Monocytes # 0.4 K/mcL (0.0-1.3); Neutrophils # 3.7 K/mcL (1.6-8.9)
[2018-03-20 15:12] LABS: Calcium 8.7 mg/dL (8.6-10.3); Potassium 5.8 mEq/L (3.5-5.1); Troponin I 0.06 ng/mL (< 0.04)
--- NOTE | 2018-03-20 15:18 | Emergency Department Note ---
Disposition Clinical Impression: Hyperglycemia, Elevated troponin, ESRD (end stage renal disease), Hyperkalemia CHF (congestive heart failure) Qualifiers: Heart failure type: unspecified Heart failure chronicity: unspecified Qualified Code(s): I50.9 - Heart failure, unspecified Chest pain Qualifiers: Chest pain type: unspecified Qualified Code(s): R07.9 - Chest pain, unspecified Disposition: Admitted As Inpatient Condition: Fair General Adult HPI - General Chief complaint: ED Shortness of Breath/Dyspnea Stated complaint: "CHF,edema" Time Seen by Provider: 03/20/18 14:04 Source: patient Mode of arrival: ambulatory Limitations: no limitations - History of Present Illness Pain Scale: 0 - Related Data Home Medications Medication Instructions Recorded Confirmed Ammonium Lactate [Amlactin] 1 appl TP BID 01/22/17 03/20/18 Calcium Acetate [Phos-LO] 2,668 mg PO TIDWM 01/22/17 03/20/18 Pregabalin [Lyrica] 100 mg PO TID 01/22/17 03/20/18 Insulin ASPART [NovoLOG] 10 - 12 unit SQ TID PRN 02/09/17 03/20/18 Insulin Glargine [Lantus] 20 unit SQ BID 02/09/17 03/20/18 [place] Oil/[place]-3 Fatty Acids 1 each PO DAILY 03/20/18 03/20/18 [[place] Oil 1,000 mg Softgel] Allergies Allergy/AdvReac Type Severity Reaction Status Date / Time hydrocodone [From [place]] Allergy Intermediate Hives Verified 03/20/18 13:54 lanolin AdvReac Swelling Verified 03/20/18 13:54 [From Lacri-Lube S[employer] of the Eye mineral oil AdvReac Swelling Verified 03/20/18 13:54 [From Lacri-L[employer] S[employer] of the Eye petrolatum,white AdvReac Swelling Verified 03/20/18 13:54 [From Lacri-Lube S[employer] of the Eye Constitutional: Denies: fever Cardiovascular: Reports: chest pain Respiratory: Reports: dyspnea. Denies: cough, sputum production Gastrointestinal: Denies: abdominal pain, nausea, vomiting Past Medical History - Past Medical History Medical history: Reports: arthritis, atrial fibrillation, cardiomyopathy, CHF, COPD, diabetes, dialysis, GERD, hyperlipidemia, hypertension, osteoporosis, renal disease, other Surgical history: Reports: herniorrhaphy, vascular surgery, other Psychiatric history: Reports: anxiety, depression, PTSD, other - Social History Smoking Status: Former smoker Smokeless Tobacco Status: No Alcohol use: Reports: none Drug use: Reports: marijuana Physical Exam - General Limitations: no limitations General appearance: alert, in no apparent distress, obese Course Vital Signs Temperature 97.5 F L 03/20/18 13:50 Pulse Rate 92 03/20/18 13:50 Respiratory Rate 20 03/20/18 13:50 Blood Pressure 175/114 03/20/18 13:50 O2 Sat by Pulse Oximetry 95 03/20/18 13:50 Temperature 97.5 F L 03/20/18 19:21 Pulse Rate 97 03/20/18 19:21 Respiratory Rate 18 03/20/18 19:21 Blood Pressure 112/75 03/20/18 19:21 O2 Sat by Pulse Oximetry 90 03/20/18 19:21 Oxygen Delivery Oxygen Delivery Nasal Cannula Medical Decision Making - Lab Data Result diagrams: 03/20/18 14:17 03/20/18 14:17 Lab Results 03/20/18 03/20/18 03/20/18 Range/Units 14:17 14:17 14:17 WBC 5.4 (4.3-11.1) K/mcL RBC 4.62 (4.19-5.50) M/mcL Hgb 12.3 L (12.9-16.9) g/dL Hct 38.3 (37.5-50.1) % MCV 82.9 L (83.0-100.0) fL MCH 26.6 L (28.0-33.3) pg MCHC 32.1 (31.6-35.5) g/dL RDW 16.4 H (11.5-14.5) % Plt Count 133 L (140-400) K/mcL MPV 11.5 (9.4-12.4) fL Immature Gran % 1.1 (0-4) % Seg Neutrophils % 67.4 % Lymphocytes % 22.4 % Monocytes % 7.0 % Eosinophils % 1.5 % Basophils % 0.6 % Neutrophils # 3.7 (1.6-8.9) K/mcL Lymphocytes # 1.2 (0.6-4.6) K/mcL Monocytes # 0.4 (0.0-1.3) K/mcL Eosinophils # 0.1 (0.0-0.6) K/mcL Basophils # 0.0 (0.0-0.2) K/mcL Sodium 126 L (136-145) mEq/L Potassium 5.8 H (3.5-5.1) mEq/L Chloride 87 L (98-107) mEq/L Carbon Dioxide 23 (23-29) mEq/L BUN 64 H (6-20) mg/dL Creatinine 11.01 H (0.70-1.30) mg/dL Est GFR ( Amer) 6 L (> 60) Est GFR (Non-Af Amer) 5 L (> 60) BUN/Creatinine Ratio 6 (6-26) Glucose 611 H* (70-105) mg/dL Calculated Osmolality 309 H (280-300) Calcium 8.7 (8.6-10.3) mg/dL Troponin I 0.06 H* (< 0.04) ng/mL B-Natriuretic Peptide 743 H (Less than 100) pg/mL Attestation Statement - Attestation Attestation: I examined this patient and my medical decision-making was reviewed with the Resident Physician. I agree with the documented findings, disposition and treatment plan as described except to the extent set forth below. Patient comfortable on my arrival to the room, very mild conversational dyspnea with room air oxygen saturation 92%. He does have asymmetrical leg edema, Doppler is being performed at the time that I arrived to the room. Given his chest pain, admission for rule out and inpatient dialysis tomorrow seems warranted.
[2018-03-20] MEDS ORDERED: Insulin Human Regular 10 UNIT in 0.9 % Sodium Chloride 10 ML IV ONE (15:19)
[2018-03-20] MEDS ORDERED: *HR* Dextrose 50 % in Water (Syg) 50 ML SYRINGE IVP PRN (16:41)
[2018-03-20] MEDS ORDERED: Dextrose Gel 15 GM/37.5 ML TUBE PO PRN ×2 (16:41)
[2018-03-20] MEDS ORDERED: D5% in Water 1,000 ML IVC PRN (16:41)
[2018-03-20] MEDS ORDERED: Insulin LISPRO 300 UNITS/3 ML VIAL SQ SCH ×2 (16:45→21:00)
--- NOTE | 2018-03-20 16:59 | Internal Med History&Physical ---
Date of Encounter: 03/20/18 Time of Encounter: 16:49 Internal Medicine - H&P: HPI Chief complaint: Chest pain Admitted From: Home Plans for Post Hospital Care: Home History of present illness: Mr. Hatch is a 47 year old male who has a history of end-stage renal disease on dialysis Wednesday, CHF EF 20-25%, diabetes on insulin treatment, hypertension noncompliant, presenting emergency room for left-sided chest pain. Patient stated that he woke up this morning felt left-sided chest pain, pain is pressure-like, and tingling sensation to the left chest, lasted for few minutes associated with SOB, and cough. denies diaphoresis no palpitation. He called his son and his son sent him to the emergency room. Patient also complaining of weight gain since last Wednesday after HD, his weight was 122 kg no w is 125 kg. He has bilateral leg swelling. Patient states that he is taking any blood pressure medications due to low blood pressure after HD. He is also on home O2 2 L nasal cannula as needed. For his diabetes he has been taking Lantus 20 units twice a day, NovoLog sliding scale but he did not take any insulin since yesterday. He also has OAS on CPAP at home. In the emergency room he was found to elevated blood pressure 175/114 glucose 611, troponin 0.06 potassium 5.8 BNP 743 chest x-ray shows interstitial edema. Patient is going to be admitted for #1 chest pain , will follow up trop, check TTE, continue ASA #2 shortness of breasts plus edema due to fluid overload and a possible systolic CHF exacerbation #3 diabetes was hyperglycemia 611 we will start insulin #4.ESRD on HD on MWF consult nephjrology #5. possible systolic CHF exacerbation, add coreg and lisnipril #6. hypertensive urgency, add lisinopril, coreg, prn hydralazine Past Med Surg Social Fam HX - Past Medical History Medical history: arthritis, atrial fibrillation, cardiomyopathy, CHF, COPD, diabetes, dialysis, GERD, hyperlipidemia, hypertension, osteoporosis, renal disease, other Additional medical history: Recently taken off HTN medication. Psychiatric history: anxiety, depression, PTSD, other - Past Surgical History Surgical History: herniorrhaphy, vascular surgery, other Additional surgical history: dialysis graft - Social History Smoking Status: Former smoker Smokeless Tobacco Status: No Alcohol use: none Drug use: marijuana - Family History Father Living Status: Hx Family Cardiac Disorders: No Hx Family Respiratory Disorders: No Hx Family Cancer: No Hx Family GI Disorders: No Hx Family Endocrine Disorder: No Hx Family Neuromuscular Disorders: No Hx Family Neurologic Disorders: No Hx Family HEENT Disorders: No Hx Family Autoimmune Disorders: No Mother Adopted: No Living Status: Still Living Hx Family Cardiac Disorders: Yes Hx Family Endocrine Disorder: Yes Internal Medicine - H&P: Meds Ammonium Lactate [Amlactin] 1 appl TP BID 01/22/17 [History] Calcium Acetate [Phos-LO] 2,668 mg PO TIDWM 01/22/17 [History] Pregabalin [Lyrica] 100 mg PO TID 01/22/17 [History] Insulin ASPART [NovoLOG] 10 - 12 unit SQ TID PRN 02/09/17 [History] Insulin Glargine [Lantus] 20 unit SQ BID 02/09/17 [History] [place] Oil/[place]-3 Fatty Acids [[place] Oil 1,000 mg Softgel] 1 each PO DAILY 03/20/18 [History] Allergy/AdvReac Type Severity Reaction Status Date / Time hydrocodone [From [place]] Allergy Intermediate Hives Verified 03/20/18 13:54 lanolin AdvReac Swelling Verified 03/20/18 13:54 [From [employer] of the [place] mineral oil AdvReac Swelling Verified 03/20/18 13:54 [From [employer] [facility] of the Eye petrolatum,white AdvReac Swelling Verified 03/20/18 13:54 [From [employer] [facility] of [facility] Eye All Systems PM: A 10-system review of systems was performed and is negative for pertinent findings except as documented above in the HPI. - Constitutional Vitals: Temp Pulse Resp BP Pulse Ox 97.5 F L 94 18 149/107 100 03/20/18 14:03 03/20/18 16:33 03/20/18 16:33 03/20/18 16:33 03/20/18 16:33 General appearance: Present: A&O X 3, morbidly obese, pleasant Exam: CONSTITUTIONAL: Patient appears as an age appropriate male well developed, in no acute distress. EYES Clear sclerae, bilateral pupils are equal, reactive to light and accommodation. Extraocular movements are intact RESPIRATORY: No accessory muscle use, bilateral basilar crackles/rales. CARDIOVASCULAR: Regular heart rate, normal S1 and S2, no murmurs GASTROINTESTINAL: bowel sounds present, soft, no tenderness. No hepatosplenomegaly. No bilateral CVA tenderness MUSCULOSKELETAL: Joints in normal range of motion, no clubbing, +++ edema, no cyanosis. Bilateral peripheral pulses 2+ LYMPHATIC no lymphadenopathy in neck, groin and axilla bilaterally, no thyromegaly. NEUROLOGIC: CN II to XII are grossly intact, no focal neurological deficit. Deep tendon reflexes 2+ bilaterally. Normal light touch sensation to upper and lower extremity PSYCHIATRIC: Oriented x3, with good insight, mood is euthymic. No hallucinations or delusions. SKIN: Skin warm and dry, no rashes, no open wound. Internal Med - H&P Results - Labs CBC & Chem 7: 03/20/18 14:17 03/20/18 14:17 Labs: Short CBC 03/20/18 Range/Units 14:17 WBC 5.4 (4.3-11.1) K/mcL Hgb 12.3 L (12.9-16.9) g/dL Hct 38.3 (37.5-50.1) % Plt Count 133 L (140-400) K/mcL Neutrophils # 3.7 (1.6-8.9) K/mcL BMP 03/20/18 14:17 Sodium 126 L Potassium 5.8 H Chloride 87 L Carbon Dioxide 23 BUN 64 H Creatinine 11.01 H Glucose 611 H* Calcium 8.7 Cardiac Enzymes 03/20/18 Range/Units 14:17 Troponin I 0.06 H* (< 0.04) ng/mL - Impressions ITS Impressions Chest X-Ray 03/20/18 14:28 IMPRESSION: Cardiomegaly with interstitial edema. D/ / Kamala Gannon MD / Kamala Gannon MD Interpreting Provider: Kamala Gannon MD - Assessment and plan (1) Elevated troponin Current Visit: Yes Status: Acute Assessment and plan: follow up trop TTE current chest pain free (2) Hyperosmolar non-ketotic state in patient with type 2 diabetes mellitus Current Visit: Yes Status: Acute Assessment and plan: received 10 unit from ER, then home dose lantus, SSI (3) Fluid overload Current Visit: Yes Status: Acute Assessment and plan: from noncompliant with meds and diet Qualifiers: Hypervolemia type: unspecified Qualified Code(s): E87.70 - Fluid overload, unspecified (4) Diabetes mellitus type 2, uncontrolled, with complications Current Visit: Yes Status: Chronic Assessment and plan: restart home insulin lantus 20 units BID, and SSI (5) Nonischemic cardiomyopathy Current Visit: No Status: Chronic Assessment and plan: EF 20-25% 1 year ago, will recheck Echo (6) End stage renal disease on dialysis Current Visit: Yes Status: Chronic Assessment and plan: consult nephrology for HD on MWF (7) Hyponatremia Current Visit: Yes Status: Acute Assessment and plan: from uncontrolled DM (8) Obesity (BMI 30-39.9) Current Visit: Yes Status: Chronic (9) Severe sleep apnea Current Visit: Yes Status: Chronic Assessment and plan: CPAP at home (10) CHF exacerbation Current Visit: Yes Status: Acute Assessment and plan: add BB and ACEI Qualifiers: Qualified Code(s): I50.23 - Acute on chronic systolic (congestive) heart failure (11) DVT prophylaxis Current Visit: No Status: Acute Assessment and plan: heparin Sc - Time Spent With Patient Total time spent is greater than 50% in coordination of care (as documented) at patient's floor/unit and/or counseling patient: Greater than 35 minutes
[2018-03-20] MEDS: Aspirin 81 MG TAB.CHEW PO SCH (17:47)
[2018-03-20] MEDS: Insulin LISPRO 300 UNITS/3 ML VIAL SQ SCH (17:48)
[2018-03-20] MEDS: Calcium Acetate 667 MG CAPSULE PO SCH (17:48)
[2018-03-20] MEDS: *HR* Heparin 5,000 UNIT/ML VIAL SQ SCH (17:49)
[2018-03-20] MEDS: Pregabalin 50 MG CAPSULE PO SCH (20:59)
[2018-03-20] MEDS ORDERED: Insulin DETEMIR 100 UNIT/ML X5UNITS SQ SCH (21:00)
[2018-03-21 03:07] LABS: Basophils % 0.5 %; Eosinophils # 0.1 K/mcL (0.0-0.6); Eosinophils % 1.6 %; Hematocrit 34.5 % (37.5-50.1); Hemoglobin 11.2 g/dL (12.9-16.9); Immature Granulocytes % 0.7 % (0-4); Lymphocytes # 1.3 K/mcL (0.6-4.6); Mean Corpuscular HGB Conc 32.5 g/dL (31.6-35.5); Mean Corpuscular Hemoglobin 26.7 pg (28.0-33.3); Mean Corpuscular Volume 82.3 fL (83.0-100.0); Mean Platelet Volume 11.8 fL (9.4-12.4); Monocytes # 0.4 K/mcL (0.0-1.3); Monocytes % 6.1 %; Platelet Count 135 K/mcL (140-400); Red Blood Count 4.19 M/mcL (4.19-5.50); Red Cell Distribution Width 16.7 % (11.5-14.5); Segmented Neutrophils % 69.1 %
[2018-03-21 03:16] LABS: Prothrombin Time 11.1 Seconds (9.4-12.1)
[2018-03-21 03:26] LABS: Albumin 3.8 g/dL (3.5-5.7); Albumin/Globulin Ratio 1.3 (1.1-2.2); Bilirubin,Total 0.4 mg/dL (0.3-1.0); Calcium 8.8 mg/dL (8.6-10.3); Magnesium 2.5 mg/dL (1.6-2.6); Potassium 5.3 mEq/L (3.5-5.1); Total Protein 6.8 g/dL (6.4-8.9)
[2018-03-21 07:23] VITALS: BP 129/75
[2018-03-21] MEDS ORDERED: 0.9 % Sodium Chloride 250 ML IVC PRN (07:50)
[2018-03-21] MEDS ORDERED: 0.9 % Sodium Chloride 1,000 ML PRIME SCH (08:00)
[2018-03-21] MEDS: *HR* Heparin 5,000 UNIT/ML VIAL SQ SCH (08:23)
[2018-03-21] MEDS: Insulin DETEMIR 100 UNIT/ML X5UNITS SQ SCH ×2 (08:23→08:37)
[2018-03-21] MEDS: Insulin LISPRO 300 UNITS/3 ML VIAL SQ SCH (08:24)
[2018-03-21] MEDS: Calcium Acetate 667 MG CAPSULE PO SCH (08:37)
[2018-03-21] MEDS: Aspirin 81 MG TAB.CHEW PO SCH (08:37)
[2018-03-21] MEDS: Pregabalin 50 MG CAPSULE PO SCH (08:37)
--- NOTE | 2018-03-21 09:09 | Nephrology Consult Note ---
Addendum entered and electronically signed by Eduar Gann DO 03/21/18 11:49: I have personally performed a face to face evaluation on this patient. I have reviewed and agree with the care plan. History and Exam by me shows: ESRD on HD and the pt left AMA before having dialysis. He told the inpatient sagger preparer that he had made an arrangement with his outside dialysis unit to go there today. Original Note: <Coleen Forte - Last Filed: 03/21/18 09:06> Date of Encounter: 03/21/18 Time of Encounter: 09:09 Assessment and Plan (1) CHF exacerbation Status: Acute 1.5 liter fluid restriction. Strict I/O Daily weights. Qualifiers: Qualified Code(s): I50.23 - Acute on chronic systolic (congestive) heart failure (2) Chest pain Status: Acute Appears resolved, per primary. Qualifiers: Chest pain type: unspecified Qualified Code(s): R07.9 - Chest pain, unspecified (3) Tobacco abuse Status: Chronic Currently smokes 1 pack per 3-4 days, offered nicotine patch, pt declined. (4) ESRD (end stage renal disease) Status: Acute Current regimen is Wednesday with Dr. Vivar. Last treatment was Wednesday without complication although he was 2 pounds heavier. HD ordered for today. Will order additional UF or HD as needed. Avoid nephrotoxins and renal dose all medications. History of Present Illness - Reason for Consult Consult date: 03/21/18 end stage renal disease Requesting physician: Darcy Andujar - Chief Complaint CHF, edema - History of Present Illness Mr. Hatch is a 47 year old male who presented to ED mid substernal chest pain that started Wednesday morning. He denied radiation to any area, and was unable to rate pain on a scale of 0-10. He states the pain was different the and before and not as likely he got checked out. PMH: Hypertension, and diabetes. Patient is ESRD with HD, current regimen is Wednesday with Dr. Vivar. His last treatment was Wednesday without complication however he did leave "heavier". His target weight is 120 kg and he left Wednesday 122 kg. He typically runs 3-1/2 hours for dialysis. Chest pain has now subsided and patient feels well. He lives alone denies drug or alcohol use, admits that he smokes cigarettes, one pack lasts him 3-4 days. HD ordered for today. We will continue to follow along to manage hemodialysis this stay. Past Med Surg Social Fam HX - Past Medical History Medical history: arthritis, atrial fibrillation, cardiomyopathy, CHF, COPD, diabetes, dialysis, GERD, hyperlipidemia, hypertension, osteoporosis, renal disease, other Additional medical history: Recently taken off HTN medication. Psychiatric history: anxiety, depression, PTSD, other - Past Surgical History Surgical History: herniorrhaphy, vascular surgery, other Additional surgical history: dialysis graft - Social History Smoking Status: Former smoker Smokeless Tobacco Status: No Alcohol use: none Drug use: marijuana - Family History Father Living Status: Hx Family Cardiac Disorders: Yes (HTN) Hx Family Respiratory Disorders: No Hx Family Cancer: No Hx Family GI Disorders: No Hx Family Endocrine Disorder: No Hx Family Neuromuscular Disorders: No Hx Family Neurologic Disorders: No Hx Family HEENT Disorders: No Hx Family Autoimmune Disorders: No Mother Adopted: No Living Status: Still Living Hx Family Cardiac Disorders: Yes Hx Family Endocrine Disorder: Yes Medications and Allergies Ammonium Lactate [Amlactin] 1 appl TP BID 01/22/17 [History] Calcium Acetate [Phos-LO] 2,668 mg PO TIDWM 01/22/17 [History] Pregabalin [Lyrica] 100 mg PO TID 01/22/17 [History] Insulin ASPART [NovoLOG] 10 - 12 unit SQ TID PRN 02/09/17 [History] Insulin Glargine [Lantus] 20 unit SQ BID 02/09/17 [History] [place] Oil/[place]-3 Fatty Acids [[place] Oil 1,000 mg Softgel] 1 each PO DAILY 03/20/18 [History] Carvedilol [Coreg] 6.25 mg PO BIDWM 30 Days #60 tablet 03/21/18 [Rx] Allergy/AdvReac Type Severity Reaction Status Date / Time hydrocodone [From [place]] Allergy Intermediate Hives Verified 03/20/18 13:54 lanolin AdvReac Swelling Verified 03/20/18 13:54 [From [employer] of the Eye mineral oil AdvReac Swelling Verified 03/20/18 13:54 [From [employer] [facility] of the Eye petrolatum,white AdvReac Swelling Verified 03/20/18 13:54 [From [employer] [facility] of the Eye Review of Systems All Systems review (narrative): The remainder of the systems are negative. Constitutional: no chills, no fatigue, no fever(s) Cardiovascular: chest pain, chest pain at rest, chest pain with activity, edema, no dyspnea, no orthopnea, no palpitations Respiratory: cough, no dyspnea, no hemoptysis, no wheezing Gastrointestinal: no change in bowel habits, no diarrhea, no nausea, no vomiting Genitourinary Male: no hematuria, no urinary frequency, no urinary hesitancy, no urinary urgency Exam - Vital Signs Vital signs: Initial Vital Signs Temp Pulse Resp BP Pulse Ox 97.5 F L 92 20 175/114 95 03/20/18 13:50 03/20/18 13:50 03/20/18 13:50 03/20/18 13:50 03/20/18 13:50 Vital Signs - Last 8 Hours Temp Pulse Resp BP Pulse Ox 03/21/18 07:20 97.8 F 95 18 129/75 95 03/21/18 03:27 98.3 F 89 17 148/89 96 Intake and Output 03/20/18 03/21/18 03/21/18 23:59 07:59 15:59 Other: Weight 125.6 kg Blood Glucose* 154 504 Patient Weight 03/21/18 23:59 Weight 125.6 kg - General Appearance General appearance: well-developed, well-nourished, obese EENT: ATNC, hearing intact, vision intact Neck: supple Respiratory: clear Cardiology: edema (+2 pitting edema, appears chronic.), normal S1, normal S2 - Dialysis Access Dialysis Vascular Access: Arteriovenous Fistula thrill: Yes bruit: Yes Gastrointestinal: normoactive bowel sounds, no tenderness, no guarding Integumentary: no rash, warm and dry Neurologic: alert and oriented x3 Psychiatric: mood/affect appropriate, cooperative Results - Lab Results 03/21/18 02:42 03/21/18 02:42 Most recent lab results Calcium 8.8 mg/dL (8.6-10.3) 03/21/18 02:42 Magnesium 2.5 mg/dL (1.6-2.6) 03/21/18 02:42 Consult Discharge Plan - Plan Referrals: Arthur Pozo MD [Primary Care Provider] - Prescriptions: Carvedilol [Coreg] 6.25 mg PO BIDWM 30 Days #60 tablet <Eduar Gann - Last Filed: 03/21/18 11:49> Date of Encounter: 03/21/18 Assessment and Plan (1) Tobacco abuse Status: Chronic (2) CHF exacerbation Status: Acute Qualifiers: Qualified Code(s): I50.23 - Acute on chronic systolic (congestive) heart failure (3) Chest pain Status: Acute Qualifiers: Chest pain type: unspecified Qualified Code(s): R07.9 - Chest pain, unspecified (4) ESRD (end stage renal disease) Status: Acute History of Present Illness - Chief Complaint ESRD, CHF, edema Exam - Vital Signs Vital signs: Initial Vital Signs Temp Pulse Resp BP Pulse Ox 97.5 F L 92 20 175/114 95 03/20/18 13:50 03/20/18 13:50 03/20/18 13:50 03/20/18 13:50 03/20/18 13:50 Vital Signs - Last 8 Hours Temp Pulse Resp BP Pulse Ox 03/21/18 07:20 97.8 F 95 18 129/75 95 Intake and Output 03/20/18 03/21/18 03/21/18 23:59 07:59 15:59 Intake Total 240 / 240 Balance 240 / 240 Intake: Oral 240 / 240 Other: Meal Breakfast Percent of Meal Consumed 100% Weight 125.6 kg Blood Glucose* 154 504 Patient Weight 03/21/18 23:59 Weight 125.6 kg Results - Lab Results 03/21/18 02:42 03/21/18 02:42 Most recent lab results Calcium 8.8 mg/dL (8.6-10.3) 03/21/18 02:42 Magnesium 2.5 mg/dL (1.6-2.6) 03/21/18 02:42
[2018-03-21 09:24] LABS: Hepatitis B Surface Antibody 0.71 mIU/mL; Hepatitis B Surface Antigen Nonreactive (Nonreactive)
[2018-03-21 09:26] LABS: Estimated Average Glucose 335 mg/dl; Hemoglobin A1C 13.3 %
[2018-03-21] MEDS ORDERED: *HR* Heparin 5,000 UNIT/ML VIAL ONE (09:28)
--- NOTE | 2018-03-21 10:26 | Event Note ---
Date of Encounter: 03/21/18 Time of Encounter: 10:20 - Cardiology Event Note Cardiology consulted for CHF, elevated troponin. Longstanding hx of ESRD on HD, NICMP, Afib, HTN--unfortunately noted to have poor outpatient follow-up and medication non-adherence. Upon arrival to room, patient states he is leaving--he is aware of associated risk. Cardiology will sign-off, please call with questions.
--- NOTE | 2018-03-21 10:55 | Discharge Summary ---
- NOTES TO OUTPATIENT PROVIDER Notes to Outpatient Provider: 1. Low dose carvedilol 6.25mg po bid added (prescription given). Orders not resulted at time of discharge: Pending orders 03/20/18 16:43 Drug Screen, Urine [UCHEM] Routine 03/20/18 16:57 EV echocardiogram Routine Date of Encounter: 03/21/18 Time of Encounter: 09:00 - Discharge Diagnosis (1) Chest pain Priority: Primary Status: Acute Qualifiers: Chest pain type: unspecified Qualified Code(s): R07.9 - Chest pain, unspecified (2) ESRD (end stage renal disease) Priority: Secondary Status: Acute (3) Fluid overload Priority: Primary Status: Acute Qualifiers: Hypervolemia type: unspecified Qualified Code(s): E87.70 - Fluid overload, unspecified (4) Hyperkalemia Priority: Primary Status: Acute (5) Diabetes mellitus type 2, uncontrolled, with complications Priority: Secondary Status: Chronic (6) Obesity (BMI 30-39.9) Priority: Secondary Status: Chronic Hospital course: Mr. Hatch is a 47 year old male presented to ER for chest pain. Patient was placed on continuous cardiac monitoring, 3 sets of troponin shows 0.06-0.07-0.07-0.06. Patient has end-stage renal disease on hemodialysis with hyperkalemia and signs of fluid overload. Nephrology was consult. Patient also has a history of systolic CHF with LVEF 20-30%, echo ordered and cardiology consult was called. Patient was planned for hemodialysis by nephrology. However, I was called by RN that patient wanted to leave with signing AMA. I talked with patient at bedside. Patient looks in no acute distress, state he is chest pain-free. I explained to him that the risk of hyperkalemia and fluid overload without immediately treatment may cause sudden . And his elevated troponin and recent chest pain may need further workup. His Glucose is high and not well controlled yet. Patient is AAO 3, and states he understand all the risks and still would like to sign AMA and he will take responsibility for himself. Finally, patient signed AMA and left. Conversation witnessed by RN. Patient was started low-dose carvedilol in the hospital, will continue, prescription is given patient. Patient started lisinopril, not given prescription because patient is noncompliant and has hyperkalemia at this point. Discharge discussed with: patient - Time Spent with Patient Total time spent providing and/or coordinating discharge services: 40 min Greater than 30 minutes - Discharge Medications Prescriptions: Carvedilol [Coreg] 6.25 mg PO BIDWM 30 Days #60 tablet Home Medications: Ammonium Lactate [Amlactin] 1 appl TP BID 01/22/17 [History] Calcium Acetate [Phos-LO] 2,668 mg PO TIDWM 01/22/17 [History] Pregabalin [Lyrica] 100 mg PO TID 01/22/17 [History] Insulin ASPART [NovoLOG] 10 - 12 unit SQ TID PRN 02/09/17 [History] Insulin Glargine [Lantus] 20 unit SQ BID 02/09/17 [History] [place] Oil/[place]-3 Fatty Acids [[place] Oil 1,000 mg Softgel] 1 each PO DAILY 03/20/18 [History] Carvedilol [Coreg] 6.25 mg PO BIDWM 30 Days #60 tablet 03/21/18 [Rx] Allergies/Adverse Reactions: Allergy/AdvReac Type Severity Reaction Status Date / Time hydrocodone [From [place]] Allergy Intermediate Hives Verified 03/20/18 13:54 lanolin AdvReac Swelling Verified 03/20/18 13:54 [From [employer]ri-[employer] S[employer] of the Eye mineral oil AdvReac Swelling Verified 03/20/18 13:54 [From [employer] S[facility] of the Eye petrolatum,white AdvReac Swelling Verified 03/20/18 13:54 [From [employer] [facility] of the Eye Date of admission: 03/20/18 15:30 Primary care physician: Arthur Pozo MD Consults: 03/20/18 15:25 Consult to Nephrology [CONS] Stat Consulting Provider: Kidney Soheila/YADIRA/RAKESH/RENEE Reason for Consult: HD Call Completed: Yes 03/21/18 07:27 Consult to Cardiology [CONS] Routine Comment: Consulting Provider: Cardiology Soheila Reason for Consult: chest pain, mildly elevated troponin Call Completed: No 03/21/18 08:00 Consult to Dialysis [CONS] ONCE Discharging clinician: Lopez Rawls Anticipated date of discharge: 03/21/18 - Constitutional Vitals: Temp Pulse Resp BP Pulse Ox 97.8 F 95 18 129/75 95 03/21/18 07:20 03/21/18 07:20 03/21/18 07:20 03/21/18 07:20 03/21/18 07:20 General appearance: Present: A&O X 3, morbidly obese, pleasant, no acute distress Exam: Vitals reviewed, Pt refused further exam - Patient Status Disposition: Left Against Medical Advice Condition: Fair - Discharge Instructions Follow Up With: Arthur Pozo MD [Primary Care Provider] -
--- NOTE | 2018-03-22 19:56 | Electrocardiograph Report ---
[address] [address] Test Date: 2018-03-20 Pat Name: Eduar Hatch Department: EXAM5 Room: 2A63 Gender: M Right Of Way Clearer: : 1970 Requested By: Moises Clancy Order Number: [id number] Reading MD: Remedios Yuen Measurements Intervals [place] Rate: 91 P: 71 WV: 183 QRS: 96 QRSD: 98 T: 69 QT: 393 QTc: 484 Interpretive Statements Sinus rhythm Consider right atrial enlargement Borderline right axis deviation Borderline prolonged QT interval Electronically Signed On 03-22-2018 19:54:52 EST by Remedios Yuen
== END 2018-03-21 10:53 | disposition left against medical advice (07) ==
LOC: 2ANU 13:49 → EMEROOARM 13:49 → 2ANU 17:26
PROVIDERS: ADMIT Internal Medicine; ATTEND Internal Medicine

== ENCOUNTER 2018-12-26 11:29 | Inpatient (IN) ==
[2018-12-26 12:29] LABS: Immature Granulocytes % 0.5 % (0-4); Segmented Neutrophils % 71.7 %
[2018-12-26 12:31] LABS: Basophils % 0.5 %; Eosinophils # 0.1 K/mcL (0.0-0.6); Eosinophils % 0.8 %; Hematocrit 41.7 % (37.5-50.1); Hemoglobin 12.7 g/dL (12.9-16.9); Immature Platelets 15.1 % (1.1-6.1); Lymphocytes % 15.4 %; Mean Corpuscular HGB Conc 30.5 g/dL (31.6-35.5); Mean Corpuscular Hemoglobin 27.3 pg (28.0-33.3); Mean Corpuscular Volume 89.5 fL (83.0-100.0); Monocytes # 0.7 K/mcL (0.0-1.3); Monocytes % 11.1 %; Neutrophils # 4.5 K/mcL (1.6-8.9); Nucleated Red Blood Cells 0.3 /100 WBC (0); Red Blood Count 4.66 M/mcL (4.19-5.50); Red Cell Distribution Width 18.5 % (11.5-14.5); White Blood Count 6.3 K/mcL (4.3-11.1)
[2018-12-26 12:33] LABS: Platelet Count 58 K/mcL (140-400)
[2018-12-26 12:48] LABS: Potassium 4.3 mEq/L (3.5-5.1); Troponin I 0.05 ng/mL (< 0.04)
[2018-12-26] MEDS ORDERED: Acetaminophen 325 MG TABLET PO PRN (14:56)
[2018-12-26] MEDS ORDERED: Naloxone 0.4 MG/ML INJ IVP PRN (14:56)
[2018-12-26] MEDS ORDERED: Ondansetron ODT 4 MG TAB.RAPDIS SL PRN (14:56)
[2018-12-26] MEDS ORDERED: *HR* Promethazine 25 MG/ML VIAL IVP PRN (14:56)
[2018-12-26 15:13] LABS: Magnesium 2.1 mg/dL (1.6-2.6)
[2018-12-26] MEDS ORDERED: SODIUM CHLORIDE/NAHCO3/KCL/PEG 4,000 ML SOLN.RECON PO ONE (16:41)
[2018-12-26] MEDS ORDERED: Fluticasone Propionate Nasal 50 MCG/SPRAY BOTTLE NS PRN (18:49)
[2018-12-26] MEDS ORDERED: Dextrose Gel 15 GM/37.5 ML TUBE PO PRN ×2 (19:12)
[2018-12-26] MEDS ORDERED: D5% in Water 1,000 ML IVC PRN (19:12)
[2018-12-26] MEDS ORDERED: NON-FORMULARY MEDICATION 1 EACH EACH (Insulin Aspart 0 UNIT) SQ SCH (21:00)
[2018-12-26] MEDS ORDERED: carvediloL 6.25 MG TABLET PO SCH (21:00)
[2018-12-26] MEDS: Pregabalin 50 MG CAPSULE PO SCH (22:19)
[2018-12-26] MEDS: Insulin LISPRO 300 UNITS/3 ML VIAL SQ SCH (22:25)
[2018-12-26] MEDS: Apixaban 5 MG TABLET PO SCH (22:25)
[2018-12-26] MEDS: Insulin DETEMIR 100 UNIT/ML X5UNITS SQ SCH (22:25)
[2018-12-26] MEDS: Ammonium Lactate 30 APPL/225 GM BOTTLE TP SCH (22:36)
[2018-12-27 05:05] LABS: Hemoglobin 13.4 g/dL (12.9-16.9); Mean Corpuscular Volume 89.5 fL (83.0-100.0)
[2018-12-27 05:06] LABS: Hematocrit 43.4 % (37.5-50.1); Immature Platelets 16.4 % (1.1-6.1); Mean Corpuscular HGB Conc 30.9 g/dL (31.6-35.5); Mean Corpuscular Hemoglobin 27.6 pg (28.0-33.3); Red Blood Count 4.85 M/mcL (4.19-5.50); Red Cell Distribution Width 18.4 % (11.5-14.5); White Blood Count 5.6 K/mcL (4.3-11.1)
[2018-12-27 05:08] LABS: Platelet Count 58 K/mcL (140-400)
[2018-12-27] MEDS ORDERED: carvediloL 6.25 MG TABLET PO SCH (08:15)
[2018-12-27 08:41] LABS: Calcium 9.4 mg/dL (8.6-10.3); Potassium 5.5 mEq/L (3.5-5.1)
[2018-12-27 08:58] LABS: Hepatitis B Surface Antibody 3.49 mIU/mL
[2018-12-27] MEDS: Insulin LISPRO 300 UNITS/3 ML VIAL SQ SCH ×4 (09:00→22:52)
[2018-12-27] MEDS: Calcium Acetate 667 MG CAPSULE PO SCH ×4 (09:00→16:49)
[2018-12-27 09:08] LABS: Hepatitis B Surface Antigen Nonreactive (Nonreactive)
[2018-12-27] MEDS ORDERED: 0.9 % Sodium Chloride 250 ML IVC PRN (09:15)
[2018-12-27] MEDS ORDERED: 0.9 % Sodium Chloride 1,000 ML PRIME SCH (09:15)
[2018-12-27] MEDS: Pregabalin 50 MG CAPSULE PO SCH ×3 (09:24→22:51)
[2018-12-27] MEDS: Apixaban 5 MG TABLET PO SCH (09:25)
[2018-12-27] MEDS: Insulin DETEMIR 100 UNIT/ML X5UNITS SQ SCH ×2 (09:25→22:51)
[2018-12-27] MEDS: Ammonium Lactate 30 APPL/225 GM BOTTLE TP SCH ×2 (09:26→22:51)
[2018-12-27] MEDS ORDERED: Albumin 25% 25gram/100mL 25 GM/100 ML IV.SOLN IVPB ONE (12:25)
[2018-12-27] MEDS ORDERED: Albumin 25% 12.5gm/50mL 25.0 GM/100 ML IV.SOLN ONE (12:28)
[2018-12-27] MEDS: carvediloL 6.25 MG TABLET PO SCH ×2 (14:40→15:33)
[2018-12-27] MEDS: Nicotine 21 MG PATCH.TD24 TD SCH (15:33)
[2018-12-27] MEDS ORDERED: NON-FORMULARY MEDICATION 1 EACH EACH (Omega-3/Dha/Epa/Fish Oil [Fish Oil 1,000 Mg Softgel] PO SCH (18:00)
[2018-12-28 04:42] LABS: Mean Corpuscular Volume 90.8 fL (83.0-100.0); Red Cell Distribution Width 18.5 % (11.5-14.5)
[2018-12-28 04:43] LABS: Hematocrit 42.3 % (37.5-50.1); Hemoglobin 12.8 g/dL (12.9-16.9); Immature Platelets 16.8 % (1.1-6.1); Mean Corpuscular HGB Conc 30.3 g/dL (31.6-35.5); Mean Corpuscular Hemoglobin 27.5 pg (28.0-33.3); Red Blood Count 4.66 M/mcL (4.19-5.50); White Blood Count 6.1 K/mcL (4.3-11.1)
[2018-12-28 04:44] LABS: Platelet Count 57 K/mcL (140-400)
[2018-12-28 04:59] LABS: Calcium 9.2 mg/dL (8.6-10.3); Potassium 5.1 mEq/L (3.5-5.1)
[2018-12-28] MEDS ORDERED: 0.9 % Sodium Chloride 250 ML IVC PRN (08:01)
[2018-12-28] MEDS ORDERED: Albumin 25% 25gram/100mL 25 GM/100 ML IV.SOLN IVPB PRN (08:01)
[2018-12-28] MEDS ORDERED: 0.9 % Sodium Chloride 1,000 ML PRIME SCH (08:15)
[2018-12-28] MEDS ORDERED: carvediloL 6.25 MG TABLET PO SCH (08:30)
[2018-12-28] MEDS: Insulin LISPRO 300 UNITS/3 ML VIAL SQ SCH ×4 (08:33→20:30)
[2018-12-28] MEDS: Insulin DETEMIR 100 UNIT/ML X5UNITS SQ SCH ×2 (08:33→20:29)
[2018-12-28] MEDS: Pregabalin 50 MG CAPSULE PO SCH ×3 (08:34→20:30)
[2018-12-28] MEDS: Calcium Acetate 667 MG CAPSULE PO SCH ×3 (08:34→16:24)
[2018-12-28] MEDS: Ammonium Lactate 30 APPL/225 GM BOTTLE TP SCH ×2 (08:35→20:32)
[2018-12-28] MEDS: carvediloL 6.25 MG TABLET PO SCH ×3 (08:35→16:24)
[2018-12-28] MEDS: Nicotine 21 MG PATCH.TD24 TD SCH (08:35)
[2018-12-28] MEDS ORDERED: Albumin 25% 12.5gm/50mL 25.0 GM/100 ML IV.SOLN ONE (12:21)
[2018-12-28] MEDS ORDERED: GuaiFENesin Liq 200 MG/10 ML UDC PO PRN (16:01)
[2018-12-28] MEDS: Docusate Oral Soln 100 MG/10 ML UDC PO SCH ×2 (16:23→20:31)
[2018-12-28] MEDS ORDERED: SODIUM CHLORIDE/NAHCO3/KCL/PEG 4,000 ML SOLN.RECON PO ONE (17:00)
[2018-12-29 01:45] LABS: Hematocrit 49.6 % (37.5-50.1); Hemoglobin 14.7 g/dL (12.9-16.9)
[2018-12-29 02:03] LABS: Calcium 9.9 mg/dL (8.6-10.3); Potassium 4.1 mEq/L (3.5-5.1)
[2018-12-29] MEDS: *HR* Dextrose 50 % in Water (Syg) 50 ML SYRINGE IVP PRN ×3 (06:23→12:17)
[2018-12-29] MEDS ORDERED: 0.9 % Sodium Chloride 250 ML IVC PRN (07:36)
[2018-12-29] MEDS ORDERED: 0.9 % Sodium Chloride 1,000 ML PRIME SCH (07:45)
[2018-12-29] MEDS: Insulin LISPRO 300 UNITS/3 ML VIAL SQ SCH ×4 (07:48→22:01)
[2018-12-29] MEDS: Calcium Acetate 667 MG CAPSULE PO SCH ×3 (07:48→16:13)
[2018-12-29] MEDS: Insulin DETEMIR 100 UNIT/ML X5UNITS SQ SCH (07:49)
[2018-12-29] MEDS: Nicotine 21 MG PATCH.TD24 TD SCH (07:59)
[2018-12-29] MEDS: Pregabalin 50 MG CAPSULE PO SCH ×3 (08:00→21:59)
[2018-12-29] MEDS: Docusate Oral Soln 100 MG/10 ML UDC PO SCH ×3 (11:41→21:59)
[2018-12-29] MEDS ORDERED: Propofol 500 MG/50 ML INFUS..BTL ONE (12:26)
[2018-12-29] MEDS ORDERED: Lidocaine -MPF 2% 2 ML VIAL ONE (12:27)
[2018-12-29] MEDS ORDERED: Esmolol 100 MG/10 ML VIAL IVP ONE (12:28)
[2018-12-29] MEDS: carvediloL 6.25 MG TABLET PO SCH ×2 (12:41→16:13)
[2018-12-29] MEDS ORDERED: *HR* PHENYLEPHRINE 1,000 MCG/10 ML SYRINGE IVP ONE ×2 (12:41→14:11)
[2018-12-29] MEDS ORDERED: *HR* Vasopressin 20 UNIT/ML VIAL ONE (14:10)
[2018-12-29] MEDS ORDERED: *HR* Metoprolol 5 MG/5 ML VIAL IVP ONE ×2 (14:50→16:22)
[2018-12-29] MEDS: Ammonium Lactate 30 APPL/225 GM BOTTLE TP SCH ×2 (16:12→21:59)
[2018-12-29] MEDS ORDERED: Insulin DETEMIR 100 UNIT/ML X5UNITS SQ SCH (21:00)
[2018-12-29] MEDS ORDERED: Acetaminophen IV 1,000 MG/100 ML INFUS..BTL IVPB ONE (23:26)
[2018-12-30 06:58] LABS: Calcium 9.1 mg/dL (8.6-10.3); Potassium 5.1 mEq/L (3.5-5.1)
[2018-12-30] MEDS ORDERED: 0.9 % Sodium Chloride 1,000 ML PRIME SCH (08:30)
[2018-12-30] MEDS ORDERED: 0.9 % Sodium Chloride 250 ML IVC PRN (08:30)
[2018-12-30] MEDS: Insulin LISPRO 300 UNITS/3 ML VIAL SQ SCH ×2 (08:42→12:46)
[2018-12-30] MEDS: Ammonium Lactate 30 APPL/225 GM BOTTLE TP SCH (08:43)
[2018-12-30] MEDS: carvediloL 6.25 MG TABLET PO SCH (08:43)
[2018-12-30] MEDS: Docusate Oral Soln 100 MG/10 ML UDC PO SCH ×2 (08:43→13:07)
[2018-12-30] MEDS: Pregabalin 50 MG CAPSULE PO SCH ×2 (08:43→11:42)
[2018-12-30] MEDS: Calcium Acetate 667 MG CAPSULE PO SCH ×2 (08:43→13:07)
[2018-12-30] MEDS ORDERED: Insulin DETEMIR 100 UNIT/ML X5UNITS SQ SCH (09:00)
[2018-12-30] MEDS ORDERED: *HR* Metoprolol 5 MG/5 ML VIAL IVP PRN (09:10)
[2018-12-30] MEDS ORDERED: Metoprolol XL (24 HR) Succ 25 MG TAB.ER.24H PO SCH (09:10)
[2018-12-30] MEDS: Nicotine 21 MG PATCH.TD24 TD SCH (09:40)
[2018-12-30 16:03] VITALS: BP 114/81
== END 2018-12-30 16:01 | disposition home or self-care (01) | DRG 377 ==
LOC: EMEROOARM 11:29 → 2ANU 11:29 → SUATTDRO 15:57 → 2ANU 16:09
PROVIDERS: ADMIT Internal Medicine; ATTEND Internal Medicine

== ENCOUNTER 2019-01-31 19:16 | Inpatient (IN) ==
[~2019-01-31 19:16] MED LIST: *HR* Amiodarone 450 MG/9 ML VIAL IVC ONE; *HR* Amiodarone Premix 360 MG/200 ML BAG IVC ONE; *HR* Etomidate 40 MG/20 ML VIAL IVP ONE; *HR* Midazolam HCl 5 MG/5 ML VIAL IVP ONE; *HR* Norepinephrine 4 MG/4 ML VIAL IVC ONE; *HR* Rocuronium Bromide 100 MG/10 ML VIAL IVC ONE; D5% in Water 250 ML IV BAG IV ONE; EPINEPHrine 1 MG/ML VIAL IV ONE
[2019-01-31 19:37] LABS: Hemoglobin 15.5 g/dL (12.9-16.9); Immature Granulocytes % 0.9 % (0-4); Red Cell Distribution Width 19.3 % (11.5-14.5)
[2019-01-31 19:39] LABS: Basophils % 0.1 %; Hematocrit 49.3 % (37.5-50.1); Immature Platelets 14.2 % (1.1-6.1); Lymphocytes # 0.5 K/mcL (0.6-4.6); Mean Corpuscular HGB Conc 31.4 g/dL (31.6-35.5); Mean Corpuscular Hemoglobin 27.4 pg (28.0-33.3); Mean Corpuscular Volume 87.3 fL (83.0-100.0); Monocytes # 1.6 K/mcL (0.0-1.3); Monocytes % 9.2 %; Neutrophils # 14.8 K/mcL (1.6-8.9); Red Blood Count 5.65 M/mcL (4.19-5.50); Segmented Neutrophils % 86.8 %; White Blood Count 17.1 K/mcL (4.3-11.1)
[2019-01-31 19:44] LABS: Platelet Count 72 K/mcL (140-400)
[2019-01-31 19:47] LABS: Activated Partial Thrombo Time 38.5 Seconds (26.0-36.0)
[2019-01-31] MEDS ORDERED: 0.9 % Sodium Chloride 1,000 ML ONE ×3 (19:54→22:04)
[2019-01-31] MEDS ORDERED: *HR* EPINEPHrine 1 MG/10 ML SYRINGE ONE (20:06)
[2019-01-31 20:10] LABS: Platelet Estimate Decreased (Normal)
[2019-01-31] MEDS ORDERED: Phenylephrine 10 MG in 0.9 % Sodium Chloride 250 ML IVC STA (20:16)
[2019-01-31 20:19] LABS: Troponin I 0.13 ng/mL (< 0.04)
[2019-01-31 20:35] LABS: Alanine Aminotransferase 12 Units/L (7-52); Albumin 4.1 g/dL (3.5-5.7); Albumin/Globulin Ratio 1.3 (1.1-2.2); Alkaline Phosphatase 223 Units/L (34-104); Aspartate Amino Transferase 33 Units/L (13-39); BUN/Creatinine Ratio 6 (6-26); Bilirubin,Direct 0.5 mg/dL (0.0-0.2); Bilirubin,Indirect 0.8 mg/dL (0.0-1.2); Bilirubin,Total 1.3 mg/dL (0.3-1.0); Blood Urea Nitrogen 54 mg/dL (6-20); Calcium 10.4 mg/dL (8.6-10.3); Carbon Dioxide 21 mEq/L (23-29); Chloride 91 mEq/L (98-107); Creatine Kinase 1210 Units/L (30-223); Ethanol < 10 mg/dL (Less than 10); Globulin 3.1 g/dL (2.4-3.5); Glucose 181 mg/dL (70-105); Osmolality,Calculated 303 (280-300); Potassium 5.3 mEq/L (3.5-5.1); Sodium 137 mEq/L (136-145); Thyroid Stimulating Hormone 1.173 mcIU/mL (0.340-5.600); Total Protein 7.2 g/dL (6.4-8.9); eGFR For African Americans 7 (> 60); eGFR For Non-African Americans 6 (> 60)
[2019-01-31] MEDS: FentaNYL (PF) 1,000 MCG in 0.9 % Sodium Chloride 80 ML IVC STA (20:48)
[2019-01-31] MEDS: Norepinephrine 4 MG in 0.9 % Sodium Chloride 250 ML IVC SCH (20:53)
[2019-01-31] MEDS ORDERED: *HR* Etomidate 20 MG/10 ML AMPUL IVP ONE (21:00)
[2019-01-31] MEDS ORDERED: *HR* Rocuronium Bromide 50 MG/5 ML VIAL IVP ONE (21:00)
[2019-01-31] MEDS ORDERED: 0.9 % Sodium Chloride 1,000 ML IVC ONE (21:02)
--- NOTE | 2019-01-31 21:03 | Emergency Department Note ---
Disposition Clinical Impression: Atrial fibrillation with RVR, Rhabdomyolysis, Altered mental status, Elevated troponin, Leukocytosis, Acute respiratory failure Disposition: Admitted As Inpatient Condition: Serious Time of Disposition: 21:04 General Adult HPI - General Chief complaint: ED Altered Mental Status Stated complaint: unresponsive Time Seen by Provider: 01/31/19 19:26 Source: EMS Limitations: altered mental status - History of Present Illness HPI Narrative: This is a procedure note only. Please refer to Dr. Bliss and Dr. Kate's note for further evaluation and treatment. Pain Scale: 0 - Related Data Home Medications Medication Instructions Recorded Confirmed Insulin ASPART [NovoLOG] 0 unit SQ TIDWM 02/09/17 01/31/19 Apixaban [Eliquis] 5 mg PO BID 11/22/18 01/31/19 Fluticasone Propionate Nasal 1 spray NS DAILY PRN 11/22/18 01/31/19 [Flonase] Calcium Acetate [Phos-LO] 3,335 mg PO TIDWM 11/23/18 01/31/19 Midodrine HCl 10 mg PO TID 11/23/18 01/31/19 Pregabalin [Lyrica] 100 mg PO TID 11/23/18 01/31/19 Insulin Glargine,Hum.rec.anlog 25 unit SQ BID 12/15/18 01/31/19 [Lantus Solostar] [place]-3/Dha/Epa/Fish Oil [Fish Oil 2 cap PO QPM 12/15/18 01/31/19 1,000 mg Softgel] Carvedilol [Coreg] 6.25 mg PO BID 01/31/19 01/31/19 Previous Rx's Medication Instructions Recorded Atorvastatin [Lipitor] 40 mg PO HS 30 Days #30 tablet 12/29/18 Allergies Allergy/AdvReac Type Severity Reaction Status Date / Time hydrocodone [From [place]] Allergy Intermediate Hives Verified 12/14/18 20:29 lanolin AdvReac Swelling Verified 12/14/18 20:29 [From [facility] mineral oil AdvReac Swelling Verified 12/14/18 20:29 [From [facility] petrolatum,white AdvReac Swelling Verified 12/14/18 20:29 [From [facility] Past Medical History - Past Medical History Medical history: Reports: arthritis, atrial fibrillation, cardiomyopathy, CHF, COPD, diabetes, dialysis, GERD, hyperlipidemia, hypertension, osteoporosis, renal disease, other Surgical history: Reports: herniorrhaphy, vascular surgery, other Psychiatric history: Reports: anxiety, depression, PTSD, other - Social History Smoking Status: Current every day smoker Smokeless Tobacco Status: No Alcohol use: Reports: none Drug use: Reports: marijuana Physical Exam - General Limitations: altered mental status General appearance: lethargic Course Vital Signs Temperature 96.9 F L 01/31/19 19:17 Pulse Rate 153 01/31/19 19:17 Respiratory Rate 28 01/31/19 19:17 Blood Pressure 148/120 01/31/19 19:17 O2 Sat by Pulse Oximetry 100 01/31/19 19:17 Temperature 96.9 F L 01/31/19 19:25 Pulse Rate 134 01/31/19 20:50 Respiratory Rate 13 01/31/19 20:50 Blood Pressure 66/46 01/31/19 20:50 O2 Sat by Pulse Oximetry 100 01/31/19 20:50 Oxygen Delivery Oxygen Delivery Non Rebreather Mask Procedures - Intubation Time out performed: Yes sedative: Etomidate Mg Given: 40 paralytic: Rocuronium Mg Given: 100 Laryngoscope: fiber optic video scope ET Tube Size: 7.5 ET Tube Uncuffed: No Tube Secured Depth (cm): 21 Tube Secured Location: teeth Tube Placement Confirmation: visualized tube passing through cords, equal breath sounds bilaterally, no breath sounds over epigastrium, confirmation by capnometry Patient Tolerated Procedure: well Intubation Complications: none Medical Decision Making - Lab Data Result diagrams: 02/02/19 03:15 02/02/19 03:15 Lab Results 01/31/19 01/31/19 01/31/19 Range/Units 19:21 19:23 19:23 WBC 17.1 H (4.3-11.1) K/mcL RBC 5.65 H (4.19-5.50) M/mcL Hgb 15.5 (12.9-16.9) g/dL Hct 49.3 (37.5-50.1) % MCV 87.3 (83.0-100.0) fL MCH 27.4 L (28.0-33.3) pg MCHC 31.4 L (31.6-35.5) g/dL RDW 19.3 H (11.5-14.5) % Plt Count 72 L (140-400) K/mcL MPV TNP Immature Gran % 0.9 (0-4) % Seg Neutrophils % 86.8 % Lymphocytes % 3.0 % Monocytes % 9.2 % Eosinophils % 0.0 % Basophils % 0.1 % Neutrophils # 14.8 H (1.6-8.9) K/mcL Lymphocytes # 0.5 L (0.6-4.6) K/mcL Monocytes # 1.6 H (0.0-1.3) K/mcL Eosinophils # 0.0 (0.0-0.6) K/mcL Basophils # 0.0 (0.0-0.2) K/mcL Platelet Estimate Decreased L (Normal) Immature Plt Fraction 14.2 H (1.1-6.1) % PT 23.0 H (9.4-12.1) Seconds INR 2.0 APTT 38.5 H (26.0-36.0) Seconds Sodium (136-145) mEq/L Potassium (3.5-5.1) mEq/L Chloride (98-107) mEq/L Carbon Dioxide (23-29) mEq/L BUN (6-20) mg/dL Creatinine (0.70-1.30) mg/dL Est GFR ( Amer) (> 60) Est GFR (Non-Af Amer) (> 60) BUN/Creatinine Ratio (6-26) Glucose (70-105) mg/dL POC Glucose 162 H (70-99) mg/dL Calculated Osmolality (280-300) Calcium (8.6-10.3) mg/dL Total Bilirubin (0.3-1.0) mg/dL Direct Bilirubin (0.0-0.2) mg/dL Indirect Bilirubin (0.0-1.2) mg/dL AST (13-39) Units/L ALT (7-52) Units/L Alkaline Phosphatase (34-104) Units/L Ammonia (16-53) mcmol/L Creatine Kinase (30-223) Units/L Troponin I (< 0.04) ng/mL Serum Total Protein (6.4-8.9) g/dL Albumin (3.5-5.7) g/dL Globulin (2.4-3.5) g/dL Albumin/Globulin Ratio (1.1-2.2) TSH (0.340-5.600) mcIU/mL Ethyl Alcohol (Less than 10) mg/dL Specimen Rejected 01/31/19 01/31/19 01/31/19 Range/Units 19:23 19:31 20:36 WBC (4.3-11.1) K/mcL RBC (4.19-5.50) M/mcL Hgb (12.9-16.9) g/dL Hct (37.5-50.1) % MCV (83.0-100.0) fL MCH (28.0-33.3) pg MCHC (31.6-35.5) g/dL RDW (11.5-14.5) % Plt Count (140-400) K/mcL MPV Immature Gran % (0-4) % Seg Neutrophils % % Lymphocytes % % Monocytes % % Eosinophils % % Basophils % % Neutrophils # (1.6-8.9) K/mcL Lymphocytes # (0.6-4.6) K/mcL Monocytes # (0.0-1.3) K/mcL Eosinophils # (0.0-0.6) K/mcL Basophils # (0.0-0.2) K/mcL Platelet Estimate (Normal) Immature Plt Fraction (1.1-6.1) % PT (9.4-12.1) Seconds INR APTT (26.0-36.0) Seconds Sodium 137 (136-145) mEq/L Potassium 5.3 H (3.5-5.1) mEq/L Chloride 91 L (98-107) mEq/L Carbon Dioxide 21 L (23-29) mEq/L BUN 54 H (6-20) mg/dL Creatinine 9.55 H (0.70-1.30) mg/dL Est GFR ( Amer) 7 L (> 60) Est GFR (Non-Af Amer) 6 L (> 60) BUN/Creatinine Ratio 6 (6-26) Glucose 181 H (70-105) mg/dL POC Glucose (70-99) mg/dL Calculated Osmolality 303 H (280-300) Calcium 10.4 H (8.6-10.3) mg/dL Total Bilirubin 1.3 H (0.3-1.0) mg/dL Direct Bilirubin 0.5 H (0.0-0.2) mg/dL Indirect Bilirubin 0.8 (0.0-1.2) mg/dL AST 33 (13-39) Units/L ALT 12 (7-52) Units/L Alkaline Phosphatase 223 H (34-104) Units/L Ammonia 46 (16-53) mcmol/L Creatine Kinase 1210 H (30-223) Units/L Troponin I 0.13 H* (< 0.04) ng/mL Serum Total Protein 7.2 (6.4-8.9) g/dL Albumin 4.1 (3.5-5.7) g/dL Globulin 3.1 (2.4-3.5) g/dL Albumin/Globulin Ratio 1.3 (1.1-2.2) TSH 1.173 (0.340-5.600) mcIU/mL Ethyl Alcohol < 10 (Less than 10) mg/dL Specimen Rejected Hemolyzed Attestation Statement - Attestation Attestation: Devi Kate D.O., examined this patient and my medical decision-making was reviewed with the Resident Physician. I agree with the documented findings, disposition and treatment plan as described except to the extent set forth below.
[2019-01-31] MEDS ORDERED: *HR* Midazolam HCl 5 MG/5 ML VIAL IVP ONE (21:11)
[2019-01-31] MEDS ORDERED: Amiodarone Premix 360 MG/200 ML BAG IVC ONE (21:16)
[2019-01-31] MEDS ORDERED: Amiodarone Premix 150 MG/100 ML BAG IVPB ONE (21:16)
--- NOTE | 2019-01-31 21:17 | Emergency Department Note ---
Disposition Clinical Impression: Atrial fibrillation with RVR, Elevated troponin, Shock Rhabdomyolysis Qualifiers: Rhabdomyolysis type: non-traumatic Qualified Code(s): M62.82 - Rhabdomyolysis Altered mental status Qualifiers: Altered mental status type: unspecified Qualified Code(s): R41.82 - Altered mental status, unspecified Leukocytosis Qualifiers: Leukocytosis type: unspecified Qualified Code(s): D72.829 - Elevated white blood cell count, unspecified Acute respiratory failure Qualifiers: Respiratory failure complication: unspecified whether with hypoxia or hypercapnia Qualified Code(s): J96.00 - Acute respiratory failure, unspecified whether with hypoxia or hypercapnia Disposition: Admitted As Inpatient Condition: Serious Time of Disposition: 23:00 General Adult HPI - General Chief complaint: ED Altered Mental Status Stated complaint: unresponsive Time Seen by Provider: 01/31/19 19:26 Source: EMS Limitations: altered mental status - History of Present Illness Pain Scale: 0 - Related Data Home Medications Medication Instructions Recorded Confirmed Insulin ASPART [NovoLOG] 0 unit SQ TIDWM 02/09/17 01/31/19 Apixaban [Eliquis] 5 mg PO BID 11/22/18 01/31/19 Fluticasone Propionate Nasal 1 spray NS DAILY PRN 11/22/18 01/31/19 [Flonase] Calcium Acetate [Phos-LO] 3,335 mg PO TIDWM 11/23/18 01/31/19 Midodrine HCl 10 mg PO TID 11/23/18 01/31/19 Pregabalin [Lyrica] 100 mg PO TID 11/23/18 01/31/19 Insulin Glargine,Hum.rec.anlog 25 unit SQ BID 12/15/18 01/31/19 [Lantus Solostar] Commerce-3/Dha/Epa/Fish Oil [Fish Oil 2 cap PO QPM 12/15/18 01/31/19 1,000 mg Softgel] Carvedilol [Coreg] 6.25 mg PO BID 01/31/19 01/31/19 Previous Rx's Medication Instructions Recorded Atorvastatin [Lipitor] 40 mg PO HS 30 Days #30 tablet 12/29/18 Allergies Allergy/AdvReac Type Severity Reaction Status Date / Time hydrocodone [From [place]] Allergy Intermediate Hives Verified 12/14/18 20:29 lanolin AdvReac Swelling Verified 12/14/18 20:29 [From [facility] mineral oil AdvReac Swelling Verified 12/14/18 20:29 [From [facility] petrolatum,white AdvReac Swelling Verified 12/14/18 20:29 [From [facility] Past Medical History - Past Medical History Medical history: Reports: arthritis, atrial fibrillation, cardiomyopathy, CHF, COPD, diabetes, dialysis, GERD, hyperlipidemia, hypertension, osteoporosis, renal disease, other Surgical history: Reports: herniorrhaphy, vascular surgery, other Psychiatric history: Reports: anxiety, depression, PTSD, other - Social History Smoking Status: Current every day smoker Smokeless Tobacco Status: No Alcohol use: Reports: none Drug use: Reports: marijuana Physical Exam - General Limitations: altered mental status General appearance: lethargic Course Vital Signs Temperature 96.9 F L 01/31/19 19:17 Pulse Rate 153 01/31/19 19:17 Respiratory Rate 28 01/31/19 19:17 Blood Pressure 148/120 01/31/19 19:17 O2 Sat by Pulse Oximetry 100 01/31/19 19:17 Temperature 96.1 F L 02/02/19 08:00 Pulse Rate 84 02/02/19 08:00 Respiratory Rate 24 02/02/19 08:00 Blood Pressure 75/61 02/02/19 08:00 O2 Sat by Pulse Oximetry 97 02/02/19 08:00 Oxygen Delivery Oxygen Delivery Non Rebreather Mask Procedures - Arterial Line Additional Comments: Right radial arterial line placed by respiratory therapistJerson. Appropriate wave form on monitor post placement. - Central Line Placement Right Femoral Central Line Inserted*: Yes Central Line Insertion: emergent Patient Placed on Monitor/Pulse Ox: Yes During the Procedure: clinician is wearing sterile gloves, cap, mask,& gown during insertion, sterile field and sterile technique are maintained, patient's face is covered with drape or mask and wearing a cap, everyone in room is wearing a mask Central Line Prep: Chlorhexidine scrub Prep the Procedure Site: apply chloraprep to the skin using a back and forth scrubbing motion, apply chloraprep for 30 seconds (upper body), 1-2 min (femoral sites), allow prep to dry, drape the patient with a full body drape Ultrasound Used for Placement: Yes Central Line Lumen Inserted: triple Post Procedure: sutured in place, good blood return, all ports aspirated, flushed, capped, sterile dressing applied, guide wire removed and visualized Patient Tolerated Procedure: well Name of Clinician Inserting Central Line: Attempt by resident physician under direct supervision, placed by myself. Medical Decision Making - Lab Data Lab results reviewed: Yes I reviewed the patient's lab results. Result diagrams: 02/02/19 03:15 02/02/19 03:15 Lab Results 01/31/19 01/31/19 01/31/19 Range/Units 19:21 19:23 19:23 WBC 17.1 H (4.3-11.1) K/mcL RBC 5.65 H (4.19-5.50) M/mcL Hgb 15.5 (12.9-16.9) g/dL Hct 49.3 (37.5-50.1) % MCV 87.3 (83.0-100.0) fL MCH 27.4 L (28.0-33.3) pg MCHC 31.4 L (31.6-35.5) g/dL RDW 19.3 H (11.5-14.5) % Plt Count 72 L (140-400) K/mcL MPV TNP Immature Gran % 0.9 (0-4) % Seg Neutrophils % 86.8 % Lymphocytes % 3.0 % Monocytes % 9.2 % Eosinophils % 0.0 % Basophils % 0.1 % Neutrophils # 14.8 H (1.6-8.9) K/mcL Lymphocytes # 0.5 L (0.6-4.6) K/mcL Monocytes # 1.6 H (0.0-1.3) K/mcL Eosinophils # 0.0 (0.0-0.6) K/mcL Basophils # 0.0 (0.0-0.2) K/mcL Platelet Estimate Decreased L (Normal) Immature Plt Fraction 14.2 H (1.1-6.1) % PT 23.0 H (9.4-12.1) Seconds INR 2.0 APTT 38.5 H (26.0-36.0) Seconds Sample Site ABG pH (7.32-7.45) pH Units ABG pCO2 (35-45) mmHg ABG pO2 (85-104) mmHg ABG HCO3 (21-27) mEq/L ABG Total CO2 (20-26) mEq/L ABG O2 Saturation (95-98) % ABG Base Excess (-2 to 3) mEq/L Eliot Test Respiration Rate O2 Delivery Device Blood Gas Modality Inspired O2 (1-15=lpm hs26-577=%) Tidal Volume cc PEEP cm H2O Sodium (136-145) mEq/L Potassium (3.5-5.1) mEq/L Chloride (98-107) mEq/L Carbon Dioxide (23-29) mEq/L BUN (6-20) mg/dL Creatinine (0.70-1.30) mg/dL Est GFR ( Amer) (> 60) Est GFR (Non-Af Amer) (> 60) BUN/Creatinine Ratio (6-26) Glucose (70-105) mg/dL POC Glucose 162 H (70-99) mg/dL Calculated Osmolality (280-300) Calcium (8.6-10.3) mg/dL Total Bilirubin (0.3-1.0) mg/dL Direct Bilirubin (0.0-0.2) mg/dL Indirect Bilirubin (0.0-1.2) mg/dL AST (13-39) Units/L ALT (7-52) Units/L Alkaline Phosphatase (34-104) Units/L Ammonia (16-53) mcmol/L Creatine Kinase (30-223) Units/L Troponin I (< 0.04) ng/mL Serum Total Protein (6.4-8.9) g/dL Albumin (3.5-5.7) g/dL Globulin (2.4-3.5) g/dL Albumin/Globulin Ratio (1.1-2.2) TSH (0.340-5.600) mcIU/mL Ethyl Alcohol (Less than 10) mg/dL A. baumannii (PCR) (Not Detect) Funmilayo albicans (PCR) (Not Detect) C. glabrata (PCR) (Not Detect) C. krusei (PCR) (Not Detect) C. parapsilosis (PCR) (Not Detect) C. tropicalis (PCR) (Not Detect) Enterobacteriac sp PCR (Not Detect) E. cloacae complex PCR (Not Detect) Enterococcus sp PCR (Not Detect) E. coli (PCR) (Not Detect) H. influenzae (PCR) (Not Detect) Klebsiella oxytoca PCR (Not Detect) Klebsiella pneumoniae (Not Detect) List. monocytogenes PCR (Not Detect) N. meningitidis (PCR) (Not Detect) Proteus species (PCR) (Not Detect) Serratia marcescens PCR (Not Detect) Staph aureus (PCR) (Not Detect) mecA-Methicil Res Gene (Not Detect) Streptococcus sp PCR (Not Detect) Group A Strep DNA (Not Detect) Group B Strep (PCR) (Not Detect) Strep pneumoniae (PCR) (Not Detect) P. aeruginosa (PCR) (Not Detect) Sanchez/B-Vanco Res Genes (Not Detect) KPC (blaKPC) Detect PCR (Not Detect) Specimen Rejected Person Notif of Crit 01/31/19 01/31/19 01/31/19 Range/Units 19:23 19:23 19:31 WBC (4.3-11.1) K/mcL RBC (4.19-5.50) M/mcL Hgb (12.9-16.9) g/dL Hct (37.5-50.1) % MCV (83.0-100.0) fL MCH (28.0-33.3) pg MCHC (31.6-35.5) g/dL RDW (11.5-14.5) % Plt Count (140-400) K/mcL MPV Immature Gran % (0-4) % Seg Neutrophils % % Lymphocytes % % Monocytes % % Eosinophils % % Basophils % % Neutrophils # (1.6-8.9) K/mcL Lymphocytes # (0.6-4.6) K/mcL Monocytes # (0.0-1.3) K/mcL Eosinophils # (0.0-0.6) K/mcL Basophils # (0.0-0.2) K/mcL Platelet Estimate (Normal) Immature Plt Fraction (1.1-6.1) % PT (9.4-12.1) Seconds INR APTT (26.0-36.0) Seconds Sample Site ABG pH (7.32-7.45) pH Units ABG pCO2 (35-45) mmHg ABG pO2 (85-104) mmHg ABG HCO3 (21-27) mEq/L ABG Total CO2 (20-26) mEq/L ABG O2 Saturation (95-98) % ABG Base Excess (-2 to 3) mEq/L Eliot Test Respiration Rate O2 Delivery Device Blood Gas Modality Inspired O2 (1-15=lpm uy34-598=%) Tidal Volume cc PEEP cm H2O Sodium 137 (136-145) mEq/L Potassium 5.3 H (3.5-5.1) mEq/L Chloride 91 L (98-107) mEq/L Carbon Dioxide 21 L (23-29) mEq/L BUN 54 H (6-20) mg/dL Creatinine 9.55 H (0.70-1.30) mg/dL Est GFR ( Amer) 7 L (> 60) Est GFR (Non-Af Amer) 6 L (> 60) BUN/Creatinine Ratio 6 (6-26) Glucose 181 H (70-105) mg/dL POC Glucose (70-99) mg/dL Calculated Osmolality 303 H (280-300) Calcium 10.4 H (8.6-10.3) mg/dL Total Bilirubin 1.3 H (0.3-1.0) mg/dL Direct Bilirubin 0.5 H (0.0-0.2) mg/dL Indirect Bilirubin 0.8 (0.0-1.2) mg/dL AST 33 (13-39) Units/L ALT 12 (7-52) Units/L Alkaline Phosphatase 223 H (34-104) Units/L Ammonia (16-53) mcmol/L Creatine Kinase 1210 H (30-223) Units/L Troponin I 0.13 H* (< 0.04) ng/mL Serum Total Protein 7.2 (6.4-8.9) g/dL Albumin 4.1 (3.5-5.7) g/dL Globulin 3.1 (2.4-3.5) g/dL Albumin/Globulin Ratio 1.3 (1.1-2.2) TSH 1.173 (0.340-5.600) mcIU/mL Ethyl Alcohol < 10 (Less than 10) mg/dL A. baumannii (PCR) Not Detected (Not Detect) Funmilayo albicans (PCR) Not Detected (Not Detect) C. glabrata (PCR) Not Detected (Not Detect) C. krusei (PCR) Not Detected (Not Detect) C. parapsilosis (PCR) Not Detected (Not Detect) C. tropicalis (PCR) Not Detected (Not Detect) Enterobacteriac sp PCR Not Detected (Not Detect) E. cloacae complex PCR Not Detected (Not Detect) Enterococcus sp PCR Not Detected (Not Detect) E. coli (PCR) Not Detected (Not Detect) H. influenzae (PCR) Not Detected (Not Detect) Klebsiella oxytoca PCR Not Detected (Not Detect) Klebsiella pneumoniae Not Detected (Not Detect) List. monocytogenes PCR Not Detected (Not Detect) N. meningitidis (PCR) Not Detected (Not Detect) Proteus species (PCR) Not Detected (Not Detect) Serratia marcescens PCR Not Detected (Not Detect) Staph aureus (PCR) DETECTED A (Not Detect) mecA-Methicil Res Gene DETECTED A (Not Detect) Streptococcus sp PCR Not Detected (Not Detect) Group A Strep DNA Not Detected (Not Detect) Group B Strep (PCR) Not Detected (Not Detect) Strep pneumoniae (PCR) Not Detected (Not Detect) P. aeruginosa (PCR) Not Detected (Not Detect) Sanchez/B-Vanco Res Genes Not Detected (Not Detect) KPC (blaKPC) Detect PCR Not Detected (Not Detect) Specimen Rejected Hemolyzed Person Notif of Crit 01/31/19 01/31/19 Range/Units 20:36 22:13 WBC (4.3-11.1) K/mcL RBC (4.19-5.50) M/mcL Hgb (12.9-16.9) g/dL Hct (37.5-50.1) % MCV (83.0-100.0) fL MCH (28.0-33.3) pg MCHC (31.6-35.5) g/dL RDW (11.5-14.5) % Plt Count (140-400) K/mcL MPV Immature Gran % (0-4) % Seg Neutrophils % % Lymphocytes % % Monocytes % % Eosinophils % % Basophils % % Neutrophils # (1.6-8.9) K/mcL Lymphocytes # (0.6-4.6) K/mcL Monocytes # (0.0-1.3) K/mcL Eosinophils # (0.0-0.6) K/mcL Basophils # (0.0-0.2) K/mcL Platelet Estimate (Normal) Immature Plt Fraction (1.1-6.1) % PT (9.4-12.1) Seconds INR APTT (26.0-36.0) Seconds Sample Site Art Line ABG pH 7.19 L* (7.32-7.45) pH Units ABG pCO2 77 H* (35-45) mmHg ABG pO2 285 H (85-104) mmHg ABG HCO3 29 H (21-27) mEq/L ABG Total CO2 31 H (20-26) mEq/L ABG O2 Saturation 100 H (95-98) % ABG Base Excess -2 (-2 to 3) mEq/L Eliot Test N/A Respiration Rate 12 O2 Delivery Device Adult Vent Blood Gas Modality vc Inspired O2 100.0 (1-15=lpm yv75-880=%) Tidal Volume 500 cc PEEP 5 cm H2O Sodium (136-145) mEq/L Potassium (3.5-5.1) mEq/L Chloride (98-107) mEq/L Carbon Dioxide (23-29) mEq/L BUN (6-20) mg/dL Creatinine (0.70-1.30) mg/dL Est GFR ( Amer) (> 60) Est GFR (Non-Af Amer) (> 60) BUN/Creatinine Ratio (6-26) Glucose (70-105) mg/dL POC Glucose (70-99) mg/dL Calculated Osmolality (280-300) Calcium (8.6-10.3) mg/dL Total Bilirubin (0.3-1.0) mg/dL Direct Bilirubin (0.0-0.2) mg/dL Indirect Bilirubin (0.0-1.2) mg/dL AST (13-39) Units/L ALT (7-52) Units/L Alkaline Phosphatase (34-104) Units/L Ammonia 46 (16-53) mcmol/L Creatine Kinase (30-223) Units/L Troponin I (< 0.04) ng/mL Serum Total Protein (6.4-8.9) g/dL Albumin (3.5-5.7) g/dL Globulin (2.4-3.5) g/dL Albumin/Globulin Ratio (1.1-2.2) TSH (0.340-5.600) mcIU/mL Ethyl Alcohol (Less than 10) mg/dL A. baumannii (PCR) (Not Detect) Funmilayo albicans (PCR) (Not Detect) C. glabrata (PCR) (Not Detect) C. krusei (PCR) (Not Detect) C. parapsilosis (PCR) (Not Detect) C. tropicalis (PCR) (Not Detect) Enterobacteriac sp PCR (Not Detect) E. cloacae complex PCR (Not Detect) Enterococcus sp PCR (Not Detect) E. coli (PCR) (Not Detect) H. influenzae (PCR) (Not Detect) Klebsiella oxytoca PCR (Not Detect) Klebsiella pneumoniae (Not Detect) List. monocytogenes PCR (Not Detect) N. meningitidis (PCR) (Not Detect) Proteus species (PCR) (Not Detect) Serratia marcescens PCR (Not Detect) Staph aureus (PCR) (Not Detect) mecA-Methicil Res Gene (Not Detect) Streptococcus sp PCR (Not Detect) Group A Strep DNA (Not Detect) Group B Strep (PCR) (Not Detect) Strep pneumoniae (PCR) (Not Detect) P. aeruginosa (PCR) (Not Detect) Sanchez/B-Vanco Res Genes (Not Detect) KPC (blaKPC) Detect PCR (Not Detect) Specimen Rejected Person Notif of Zo [facility] - Radiology Data Radiology results reviewed: Yes I reviewed the patient's radiology results. Chest X-Ray 01/31/19 19:38 IMPRESSION: No acute process. Stable cardiomegaly D/ / Hiram Davila MD / Hiram Davila MD Interpreting Provider: Hiram Davila MD Ankle X-Ray 01/31/19 22:16 IMPRESSION: Advanced neuropathic arthropathy of the midfoot with bony fragmentation, debris and dislocations. Findings are similar to the prior study. D/ / Janet Rondon Cha, MD / Janet Rondon Cha, MD Interpreting Provider: Janet Rondon Cha, MD Abdomen/Pelvis CT 01/31/19 22:53 IMPRESSION: Mild stranding of fat around the pancreas which could reflect acute pancreatitis. Correlate with lipase and amylase levels. Mild thickening of both adrenal glands with mild surrounding inflammatory change, possibly reflecting adrenalitis. Diverticulosis coli, without evidence of diverticulitis or colitis. Cardiomegaly and trace bilateral pleural effusions. Absent right kidney and evidence of renal osteodystrophy. D/ / Oscar Landaverde MD / Oscar Landaverde MD Interpreting Provider: Oscar Landaverde MD Head CT 01/31/19 22:53 IMPRESSION: No acute intracranial abnormality. D/ / Igor Abdi MD / Igor Abdi MD Interpreting Provider: Igor Abdi MD - EKG Data EKG #1 EKG attestation: Yes I reviewed and interpreted this EKG. EKG results narrative: Atrial fibrillation with RVR with a rate of 161. Right axis deviation. Normal intervals. Poor R wave progression. No gross ST elevations or depressions. No acute ischemic findings. Critical Care Time Critical Care Time: Yes Total Critical Care Time: 90 Attestation: Critical care time excluding separately billable procedures of 90 minutes given the patient's abnormal vital signs, arrhythmia, coordination with specialty care for management, coordination for admission to the intensive care unit. S.B.A.R. - [facility].[place].[facility] Situation: Demographics, MOA Background: Presenting Complaint, Relevant PMH, Meds, & Allergies Assessment: Vital Signs, Course and respsone to treatment, Exam Concerns, Patient/Family Expectation, Pertinant Lab Results, Outstanding Labs Recommendation: Barrier(s) to disposition, Recommendation based on pending studies, treatments, or consults S.B.A.RCarloz Report Given to: Dr. Allison Casas Repor Time: 23:22 Attestation Statement - Attestation Attestation: Devi Kate D.O., examined this patient and my medical decision-making was reviewed with the Resident Physician. I agree with the documented findings, disposition and treatment plan as described except to the extent set forth below. 48-year-old male history of ESRD on dialysis, atrial fibrillation on Eliquis who presents via EMS for altered mental status, fall. Per EMS report the patient was found down at home. Potentially could have been down for 8 hours. Unknown mechanism. He had waxing and waning mental status in transit. Upon arrival the patient was noted to be rather tachycardic up into the 180s. He reports the pain in his legs. He has had some swelling to that area. Limited history given the patient's mental status. General: Waxing and waning mental status. Transiently follows commands. HENT: Normocephalic, Atraumatic Neck: No JVD Cardiovascular: Irregularly irregular rhythm, tachycardic Respiratory: Diminished breath sounds bilaterally Abdominal: Soft, non tender. No peritoneal findings Extremities: Significant lower extremity edema. Patient has a wound to the right toes. Neuro: Mental status is transient. At times he will open his eyes and follow commands however he then requires physical stimuli to awaken. Skin: Warm, Dry ED Procedure Note: EKG interpretation - I agree with the resident physician's do cumentation and interpretation of the patient's EKG. Atrial fibrillation with rapid ventricular response with a rate of 161. Right axis deviation. Normal intervals. Poor R wave progression. No gross ST elevations or depressions. No acute ischemic findings. Seen and examined. The patient initially was in atrial fibrillation with RVR. He became unstable shortly after arrival with hypotension and altered mental status. The patient was electrically cardioverted with 100 J and then again with 120 without cardioversion to sinus rhythm. At this point I had the claim investigator paged and spoke with Dr. Carson. He recommended to hydrate the patient and start the patient on amiodarone. At this point after the cardioversion and Versed the patient required intubation for respiratory failure. This was done by the resident physician, Dr. Carrera under my direct supervision without complication. Please see his documentation for details. A right femoral central line was then placed under my direct supervision with attempt by the resident, and ultimate placement by myself. Procedure note: Cardioversion: Indication: Unstable Afib RVR Unable to obtain consent due to acuity and patient's mental status. Patient connected to appropriate monitoring devices. Patient received 5mg Versed and received 100J synchronized cardioversion with no abatement of rhythm. Additional cardioversion at 120J without success. Remains in Afib RVR. Patient has been started on amiodarone drip at the recommendation of cardiology. Labs reviewed showing underlying end-stage renal disease. His CK is 1200 consistent with rhabdo. We will continue volume resuscitation. Troponin is elevated in the setting of renal insufficiency. No ischemic EKG changes. Patient started on norepi for hypotension. Map is currently appropriate. Awaiting CT imaging then admission to the intensive care unit. Will hold after 3L IVF due to concern of developing overload status. Shock at this point is concerning vs cardiogenic vs septic. Patient will be given broad spectrum abx as we are not exactly sure what the history is and his SIRS criteria. Vancomycin and Zosyn ordered. CT report reviewed. No acute intracranial abnormality. There is concern for potential pancreatitis and adrenal otitis. Lipase ordered as well. The patient has received multiple liters of fluid for his rhabdo. Has remained stable on norepi with appropriate map. I discussed with the family about the patient's current condition. They actually tell me that he sat around all day yesterday which could have protruded to his rhabdo. Also states today he actually did not fall in the bathroom he was sitting there in too weak to be able to get up and they found him slumped over to the side. They understand that he will be admi tted to the intensive care unit with guarded prognosis. Case was discussed with the admitting hospitalist, Dr. Cooper.
[2019-01-31] MEDS ORDERED: Piperacillin/Tazobactam 3.375 GM in Water for inj. (sterile) 20 ML IVP ONE (21:42)
[2019-01-31 22:19] LABS: ABG Base Excess -2 mEq/L (-2 to 3); ABG HCO3 29 mEq/L (21-27); ABG Oxygen Saturation 100 % (95-98); ABG PCO2 77 mmHg (35-45); ABG PH 7.19 pH Units (7.32-7.45); ABG PO2 285 mmHg (85-104); ABG TCO2 31 mEq/L (20-26); Blood Gas PEEP 5 cm H2O; Blood Gas VT 500 cc
--- NOTE | 2019-02-01 00:25 | Internal Med History&Physical ---
<Orin Thakkar - Last Filed: 02/01/19 04:51> Date of Encounter: 02/01/19 Time of Encounter: 00:25 Internal Medicine - H&P: HPI Chief complaint: Altered mental status Admitted From: Home History of present illness: Mr. Hatch is a 48 year old male with complicated past medical history including ESRD on HD (MWF), atrial fibrillation on Eliquis, cardiomyopathy, systolic CHF, diabetes, HTN, HLD who presented to the emergency department by EMS after reportedly found down at home for unknown length of time. EMS had reported waxi ng and waning mental status during transportation. Currently the patient is intubated and sedated, therefore unable to participate in history gathering and majority of history obtained from ED report and previous records. On arrival to ED patient was found to be hypotensive and in A. fib with RVR. Electric cardioversion attempted 2, unsuccessful. ED physician contacted cardiology who recommended starting amiodarone. Patient was subsequently intubated for respiratory failure. Right CVC and right radial arterial lines were established in the emergency department. Past Med Surg Social Fam HX - Past Medical History Medical history: arthritis, atrial fibrillation, cardiomyopathy, CHF, COPD, diabetes, dialysis, GERD, hyperlipidemia, hypertension, osteoporosis, renal disease, other Additional medical history: marijuana Psychiatric history: anxiety, depression, PTSD, other - Past Surgical History Surgical History: herniorrhaphy, vascular surgery, other Additional surgical history: dialysis graft - Social History Smoking Status: Current every day smoker Smokeless Tobacco Status: No Alcohol use: none Drug use: marijuana - Family History Father Living Status: Hx Family Cardiac Disorders: Yes (HTN) Hx Family Respiratory Disorders: No Hx Family Cancer: No Hx Family GI Disorders: No Hx Family Endocrine Disorder: No Hx Family Neuromuscular Disorders: No Hx Family Neurologic Disorders: No Hx Family HEENT Disorders: No Hx Family Autoimmune Disorders: No Mother Adopted: No Living Status: Still Living Hx Family Cardiac Disorders: Yes Hx Family Endocrine Disorder: Yes Internal Medicine - H&P: Meds RX: Insulin ASPART [NovoLOG] 0 unit SQ TIDWM 02/09/17 [History] RX: Apixaban [Eliquis] 5 mg PO BID 11/22/18 [History] RX: Fluticasone Propionate Nasal [Flonase] 1 spray NS DAILY PRN 11/22/18 [History] RX: Calcium Acetate [Phos-LO] 3,335 mg PO TIDWM 11/23/18 [History] RX: Midodrine HCl 10 mg PO TID 11/23/18 [History] RX: Pregabalin [Lyrica] 100 mg PO TID 11/23/18 [History] RX: Insulin Glargine,Hum.rec.anlog [Lantus Solostar] 25 unit SQ BID 12/15/18 [Hi story] RX: [place]-3/Dha/Epa/Fish Oil [Fish Oil 1,000 mg Softgel] 2 cap PO QPM 12/15/18 [History] RX: Atorvastatin [Lipitor] 40 mg PO HS 30 Days #30 tablet 12/29/18 [Rx] RX: Carvedilol [Coreg] 6.25 mg PO BID 01/31/19 [History] Allergy/AdvReac Type Severity Reaction Status Date / Time hydrocodone [From [place]] Allergy Intermediate Hives Verified 12/14/18 20:29 lanolin AdvReac Swelling Verified 12/14/18 20:29 [From [facility] mineral oil AdvReac Swelling Verified 12/14/18 20:29 [From [facility] petrolatum,white AdvReac Swelling Verified 12/14/18 20:29 [From [facility] ROS unobtainable: due to endotracheal tube All Systems PM: A 10-system review of systems was performed and is negative for pertinent findings except as documented above in the HPI. - Constitutional Vitals: Temp Pulse Resp BP Pulse Ox 96.9 F L 136 18 87/60 95 01/31/19 19:25 01/31/19 23:35 01/31/19 23:52 01/31/19 23:35 01/31/19 23:52 Exam: General: sedated, appears comfortable HEENT: head normocephalic/atraumatic, pupils equally round and with sluggish reaction to light, sclera anicteric Neck: Supple, no lymphadenopathy Cardio: Tachycardic, no murmurs, +S1/S2 Pulm: Coarse breath sounds bilaterally, on mechanical ventilation, equal chest rise Abdomen: Soft, distended with fluid wave, bowel sounds not heard on auscultation Extremities: 3+ pitting edema BLE extending above chilel, no cyanosis, Neuro: unable to fully assess neuro status due to intubation and sedation MSK: no joint swelling or joint erythema, AV fistulae of left forearm noted Skin: very dry, chronic venous stasis discoloration, intact Psych: unable to assess Internal Med - H&P Results - Labs CBC & Chem 7: 01/31/19 19:23 02/01/19 02:25 Labs: Short CBC 01/31/19 Range/Units 19:23 WBC 17.1 H (4.3-11.1) K/mcL Hgb 15.5 (12.9-16.9) g/dL Hct 49.3 (37.5-50.1) % Plt Count 72 L (140-400) K/mcL Neutrophils # 14.8 H (1.6-8.9) K/mcL BMP 01/31/19 19:23 Sodium 137 Potassium 5.3 H Chloride 91 L Carbon Dioxide 21 L BUN 54 H Creatinine 9.55 H Glucose 181 H Calcium 10.4 H Cardiac Enzymes 01/31/19 Range/Units 19:23 Troponin I 0.13 H* (< 0.04) ng/mL Liver Function 01/31/19 Range/Units 19:23 Total Bilirubin 1.3 H (0.3-1.0) mg/dL Direct Bilirubin 0.5 H (0.0-0.2) mg/dL AST 33 (13-39) Units/L ALT 12 (7-52) Units/L Alkaline Phosphatase 223 H (34-104) Units/L Albumin 4.1 (3.5-5.7) g/dL - ABG Interpretation ABG results: 01/31/19 22:13 ABG pH 7.19 L* ABG pCO2 77 H* ABG pO2 285 H ABG HCO3 29 H ABG Total CO2 31 H ABG O2 Saturation 100 H ABG Base Excess -2 - Impressions ITS Impressions Chest X-Ray 01/31/19 19:38 IMPRESSION: No acute process. Stable cardiomegaly D/ / Hiram Davila MD / Hiram Davila MD Interpreting Provider: Hiram Davila MD Ankle X-Ray 01/31/19 22:16 IMPRESSION: Advanced neuropathic arthropathy of the midfoot with bony fragmentation, debris and dislocations. Findings are similar to the prior study. D/ / Janet Rondon Cha, MD / Janet Rondon Cha, MD Interpreting Provider: Janet Rondon Cha, MD Abdomen/Pelvis CT 01/31/19 22:53 IMPRESSION: Mild stranding of fat around the pancreas which could reflect acute pancreatitis. Correlate with lipase and amylase levels. Mild thickening of both adrenal glands with mild surrounding inflammatory change, possibly reflecting adrenalitis. Diverticulosis coli, without evidence of diverticulitis or colitis. Cardiomegaly and trace bilateral pleural effusions. Absent right kidney and evidence of renal osteodystrophy. D/ / Oscar Landaverde MD / Oscar Landaverde MD Interpreting Provider: Oscar Landaverde MD Head CT 01/31/19 22:53 IMPRESSION: No acute intracranial abnormality. D/ / Igor Abdi MD / Igor Abdi MD Interpreting Provider: Igor Abdi MD Chest X-Ray 01/31/19 23:38 IMPRESSION: Cardiomegaly with suspected edema. D/ / Janet Rondon Cha, MD / Janet Rondon Cha, MD Interpreting Provider: Janet Rondon Cha, MD - Assessment and Plan (1) Shock Current Visit: Yes Status: Acute Assessment and plan: - Hemodynamically unstable on presentation with HR reported in 170s, hypotensive pressures ranging 60s-80s/40s-50s, and requiring vasopressor support - Likely multifactoral, but suspect primarily cardiac etiology given recent history of admissions for fluid overload with decompensation - Currently do not suspect infectious etiology, pt is afebrile and no suspected source - CXR demonstrates cardiomegaly with diffuse bilateral airspace disease suggestive of pulmonary edema - CT abdomen pelvis shows mild stranding of peripancreatic fat, mildly thickened bilateral adrenal glands, diverticulosis coli without evidence of diverticulitis or colitis, right kidney absent - Lipase 4 - Lactic acid 1.4 - Received 3L IV in ED - 11/2018 echocardiogram shows severely reduced LVEF 20%, mild pulmonary HTN - Continue phenylephrine for BP support - Goal MAP 65 (2) Atrial fibrillation with RVR Current Visit: Yes Status: Acute Assessment and plan: - Reportedly HR 170's on arrival to ED - History of Afib on Eliquis - Failed cardioversion at 100 J and 120 J - Likely contributing in elevated troponin - TSH within normal limits - Trial esmolol, if inefective will consider loading with digoxin - Hold Eliquis - Start heparin gtt - Continue amiodarone gtt - Cardiology consulted in ED (3) Altered mental status Current Visit: Yes Status: Acute Assessment and plan: Unable to assess current mental status, pt is intubated and sedated Per EMS reports, waxing and waning mental status on transport Etiology unclear, likely mutlifactoral including decreased cerebral perfusion secondary to Afib RVR and hypotension Initial ABG showing respiratory acidosis: pH 7.19 / pCO2 77 / pO2 285 / HCO3 29 Negative EtOH - Continue hemodynamic support with vasopressors - Repeat ABG - Urine tox pending collection Qualifiers: Altered mental status type: unspecified Qualified Code(s): R41.82 - Altered mental status, unspecified (4) Hypotension Current Visit: Yes Status: Acute Assessment and plan: Suspect cardiogenic shock, doubt septic shock Right radial arterial line and right femoral CVC placed in ED Received 3 L IVF in ED Vasopressor support with phenylephrine to maintain goal MAP 65 Caution with IVF d/t concern for fluid overloaded status Qualifiers: Hypotension type: unspecified hypotension type Qualified Code(s): I95.9 - Hypotension, unspecified (5) Rhabdomyolysis Current Visit: Yes Status: Acute Assessment and plan: Suspect secondary to indeterminate period of immobility CK 1210 on arrival Received total 3 L IVF in emergency department - Repeat CK - Cautious use of IVF d/t current concerns for cardiogenic shock and to prevent further volume overload - Nephrology consulted Qualifiers: Rhabdomyolysis type: non-traumatic Qualified Code(s): M62.82 - Rhabdomyolysis (6) End stage renal disease on dialysis Current Visit: Yes Status: Chronic Assessment and plan: ESRD on HD, last dialysis session 01/30 MWF dialysis schedule K 5.3 Repeat metabolic panel in AM Phos level pending Repeat K level pending Nephrology consulted (7) Diabetes mellitus type 2, uncontrolled, with complications Current Visit: Yes Status: Chronic Assessment and plan: Sliding scale insulin, low dose NPO for now Glucose checks Q6H (8) Elevated troponin Current Visit: Yes Status: Acute Assessment and plan: Initial troponin 0.13 Etiology likely multifactoral including demand ischemia from Afib RVR and decreased clearance from ESRD Repeat troponin Cardiac monitoring Cardiology consulted (9) Nonischemic cardiomyopathy Current Visit: Yes Status: Chronic Assessment and plan: - TTE 11/2018 Not all LV segments were well visualized, but overall LV function appeared severely reduced. LVEF grossly 20%. Severely dilated left ventricle with global diastolic dysfunction, moderate RVSP 35-40 mmHg -Cardiology consulted (10) Hyperkalemia Current Visit: Yes Status: Acute Assessment and plan: Secondary to ESRD K 5.3 on admission, repeat level pending (11) Tobacco abuse Current Visit: Yes Status: Chronic (12) DVT prophylaxis Current Visit: Yes Status: Acute Assessment and plan: hold Eliquis 5 mg PO BID start heparin gtt - Time Spent With Patient Total time spent is greater than 50% in coordination of care (as documented) at patient's floor/unit and/or counseling patient: Elijah Mora - Last Filed: 02/01/19 05:13> Date of Encounter: 02/01/19 All Systems PM: A 10-system review of systems was performed and is negative for pertinent find ings except as documented above in the HPI. - Constitutional Vitals: Temp Pulse Resp BP Pulse Ox 100.1 F H 129 18 90/52 91 02/01/19 04:45 02/01/19 05:00 02/01/19 05:00 02/01/19 05:00 02/01/19 05:00 Internal Med - H&P Results - Labs CBC & Chem 7: 01/31/19 19:23 02/01/19 02:25 Labs: Short CBC 01/31/19 Range/Units 19:23 WBC 17.1 H (4.3-11.1) K/mcL Hgb 15.5 (12.9-16.9) g/dL Hct 49.3 (37.5-50.1) % Plt Count 72 L (140-400) K/mcL Neutrophils # 14.8 H (1.6-8.9) K/mcL BMP 01/31/19 02/01/19 19:23 02:25 Sodium 137 134 L Potassium 5.3 H 5.2 H Chloride 91 L 94 L Carbon Dioxide 21 L 21 L BUN 54 H 59 H Creatinine 9.55 H 9.38 H Glucose 181 H 244 H Calcium 10.4 H 9.2 Cardiac Enzymes 01/31/19 02/01/19 Range/Units 19:23 02:25 Troponin I 0.13 H* 0.12 H* (< 0.04) ng/mL Liver Function 01/31/19 02/01/19 Range/Units 19:23 02:25 Total Bilirubin 1.3 H 1.3 H (0.3-1.0) mg/dL Direct Bilirubin 0.5 H (0.0-0.2) mg/dL AST 33 36 (13-39) Units/L ALT 12 13 (7-52) Units/L Alkaline Phosphatase 223 H 188 H (34-104) Units/L Albumin 4.1 3.5 (3.5-5.7) g/dL - ABG Interpretation ABG results: 01/31/19 02/01/19 02/01/19 22:13 01:16 04:58 ABG pH 7.19 L* 7.24 L 7.23 L ABG pCO2 77 H* 62 H 60 H ABG pO2 285 H 71 L D 60 L ABG HCO3 29 H 26 25 ABG Total CO2 31 H 28 H 27 H ABG O2 Saturation 100 H 90 L 85 L ABG Base Excess -2 -3 L -4 L - Impressions ITS Impressions Chest X-Ray 01/31/19 19:38 IMPRESSION: No acute process. Stable cardiomegaly D/ / Hiram Davila MD / Hiram Davila MD Interpreting Provider: Hiram Davila MD Ankle X-Ray 01/31/19 22:16 IMPRESSION: Advanced neuropathic arthropathy of the midfoot with bony fragmentation, debris and dislocations. Findings are similar to the prior study. D/ / Janet Rondon Cha, MD / Janet Rondon Cha, MD Interpreting Provider: Janet Rondon Cha, MD Abdomen/Pelvis CT 01/31/19 22:53 IMPRESSION: Mild stranding of fat around the pancreas which could reflect acute pancreatitis. Correlate with lipase and amylase levels. Mild thickening of both adrenal glands with mild surrounding inflammatory change, possibly reflecting adrenalitis. Diverticulosis coli, without evidence of diverticulitis or colitis. Cardiomegaly and trace bilateral pleural effusions. Absent right kidney and evidence of renal osteodystrophy. D/ / Oscar Landaverde MD / Oscar Landaverde MD Interpreting Provider: Oscar Landaverde MD Head CT 01/31/19 22:53 IMPRESSION: No acute intracranial abnormality. D/ / Igor Abdi MD / Igor Abdi MD Interpreting Provider: Igor Abdi MD Chest X-Ray 01/31/19 23:38 IMPRESSION: Cardiomegaly with suspected edema. D/ / Janet Rondon Cha, MD / Janet Rondon Cha, MD Interpreting Provider: Janet Rondon Cha, MD - Time Spent With Patient Total time spent is greater than 50% in coordination of care (as documented) at patient's floor/unit and/or counseling patient: - Attending Attestation I performed a history and physical exam of the patient and discussed management with the resident. I reviewed the resident's note and agree with the documented findings and plan of care. Eduar Hatch is a 48-year-old morbidly obese man with diabetes, hypertension, heart failure with severely reduced ejection fr action with an EF of 20% and end-stage renal disease on dialysis who has been admitted here a plethora of times for a fluid overload state secondary to nonadherence, frequently presenting in A. fib with RVR and has had a tendency to sign out AMA simply to go smoke. He is brought in now to being found down for an unknown number of hours with a waxing and waning mental status. He arrived notably tachycardic and hypotensive and therefore deemed unstable. Cardioversion attempts were made but unsuccessful so he was started on amiodarone drip and intubated for hypoxic respiratory failure. Lab work remarkable for CK of 1200, leukocyte count 17.1, arterial pH 7.19 with a PCO2 of 77, potassium 5.3, B1 54, creatinine 9.55 and troponin 0.13. He received 3 L of fluids in the emergency room prior to his admission to the ICU. We will keep him sedated on mechanical ventilation. Use vasopressor support to keep his blood pressure within adequacy as we attempt to control his heart rate which should in turn stabilize him hemodynamically and improve his generalized perfusion as he is currently in cardiogenic shock from uncontrolled atrial fibrillation coupled with acute respiratory acidosis in the setting of hypoventilation. It should be noted that he frequently presents with uncontrolled tachyarrhythmia when he has been nonadherent to his dialysis schedules. Cardiology and nephrology consults will be placed. MARGARET PABON.
[2019-02-01] MEDS ORDERED: Esmolol 100 MG/10 ML VIAL IVP ONE (00:33)
[2019-02-01] MEDS ORDERED: Naloxone 0.4 MG/ML INJ IVP PRN (00:46)
[2019-02-01] MEDS: Phenylephrine 10 MG in 0.9 % Sodium Chloride 250 ML IVC SCH ×2 (01:02→02:42)
[2019-02-01 01:19] LABS: ABG Base Excess -3 mEq/L (-2 to 3); ABG HCO3 26 mEq/L (21-27); ABG Oxygen Saturation 90 % (95-98); ABG PCO2 62 mmHg (35-45); ABG PH 7.24 pH Units (7.32-7.45); ABG PO2 71 mmHg (85-104); ABG TCO2 28 mEq/L (20-26); Blood Gas Modality VC; Blood Gas PEEP 5 cm H2O; Blood Gas VT 500 cc
[2019-02-01] MEDS: Amiodarone Premix 360 MG/200 ML BAG IVC SCH ×2 (01:47→12:56)
[2019-02-01] MEDS ORDERED: *HR* Heparin 5,000 UNIT/ML VIAL IVP PRN ×2 (02:16)
[2019-02-01] MEDS ORDERED: Heparin 25,000 UNIT/250 ML D5W 25,000 UNIT/250 ML IV.SOLN IVC SCH ×2 (02:30)
[2019-02-01] MEDS ORDERED: D5% in Water 1,000 ML IVC PRN (02:41)
[2019-02-01] MEDS ORDERED: *HR* Dextrose 50 % in Water (Syg) 50 ML SYRINGE IVP PRN (02:41)
[2019-02-01] MEDS ORDERED: Dextrose Gel 15 GM/37.5 ML TUBE PO PRN ×2 (02:41)
[2019-02-01] MEDS: Norepinephrine 4 MG in 0.9 % Sodium Chloride 250 ML IVC SCH (02:58)
[2019-02-01 03:01] LABS: Albumin 3.5 g/dL (3.5-5.7); Albumin/Globulin Ratio 1.3 (1.1-2.2); Bilirubin,Total 1.3 mg/dL (0.3-1.0); Calcium 9.2 mg/dL (8.6-10.3); Globulin 2.8 g/dL (2.4-3.5); Phosphorous 7.8 mg/dL (2.7-4.5); Potassium 5.2 mEq/L (3.5-5.1); Total Protein 6.3 g/dL (6.4-8.9)
[2019-02-01 03:08] LABS: Troponin I 0.12 ng/mL (< 0.04)
[2019-02-01] MEDS ORDERED: Phenylephrine 20 MG in 0.9 % Sodium Chloride 500 ML IVC SCH (03:45)
[2019-02-01] MEDS ORDERED: Phenylephrine 20 MG in 0.9 % Sodium Chloride 250 ML IVC SCH (04:45)
[2019-02-01 05:01] LABS: ABG Base Excess -4 mEq/L (-2 to 3); ABG HCO3 25 mEq/L (21-27); ABG Oxygen Saturation 85 % (95-98); ABG PCO2 60 mmHg (35-45); ABG PH 7.23 pH Units (7.32-7.45); ABG PO2 60 mmHg (85-104); ABG TCO2 27 mEq/L (20-26); Blood Gas Modality PRVC; Blood Gas PEEP 5 cm H2O; Blood Gas VT 500 cc
[2019-02-01 05:26] LABS: Basophils % 0.2 %
[2019-02-01 05:28] LABS: Hemoglobin 15.2 g/dL (12.9-16.9); Immature Granulocytes % 1.5 % (0-4); Lymphocytes # 0.7 K/mcL (0.6-4.6); Lymphocytes % 3.5 %; Mean Corpuscular Hemoglobin 27.5 pg (28.0-33.3); Mean Corpuscular Volume 88.8 fL (83.0-100.0); Monocytes # 0.9 K/mcL (0.0-1.3); Monocytes % 4.6 %; Neutrophils # 17.5 K/mcL (1.6-8.9); Red Blood Count 5.52 M/mcL (4.19-5.50); Red Cell Distribution Width 19.2 % (11.5-14.5); Segmented Neutrophils % 90.2 %; White Blood Count 19.4 K/mcL (4.3-11.1)
[2019-02-01 05:29] LABS: Platelet Count 77 K/mcL (140-400)
[2019-02-01 05:34] LABS: Heparin anti-factor XA UFH 0.32 IU/mL (0.30-0.70)
[2019-02-01 05:35] LABS: INR 1.9; Prothrombin Time 21.2 Seconds (9.4-12.1)
[2019-02-01 05:37] LABS: Activated Partial Thrombo Time 46.1 Seconds (26.0-36.0)
[2019-02-01] MEDS: *HR* Digoxin 0.5 MG/2 ML AMPUL IVP SCH ×4 (05:54→23:27)
[2019-02-01] MEDS ORDERED: Insulin LISPRO 300 UNITS/3 ML VIAL SQ SCH (06:00)
[2019-02-01] MEDS: Norepinephrine 8 MG in 0.9 % Sodium Chloride 250 ML IVC SCH ×4 (06:35→23:04)
[2019-02-01] MEDS: Phenylephrine 50 MG in 0.9 % Sodium Chloride 250 ML IVC SCH ×4 (08:00→22:05)
[2019-02-01] MEDS: FentaNYL (PF) 1,000 MCG in 0.9 % Sodium Chloride 80 ML IVC STA (08:02)
--- NOTE | 2019-02-01 08:18 | Pulmonology Consult Note ---
<Tono Salazar L - Last Filed: 02/01/19 15:00> Date of Encounter: 02/01/19 Time of Encounter: 08:14 Assessment and Plan (1) Shock Current Visit: Yes Status: Acute Shock, hemodynamic instability - Cardiogenic vs septic - Hypotension requiring two pressors, phenylephrine and norepinephrine - Blood cultures growing MRSA - Vanc and zosyn day 1 - Elevated WBC - Lactate 1.4>>2.0 - ABG pH 7.29 - Continue full vent support - Cardiology consulted - Nephrology, CRRT today - Consider QUIQUE for MRSA bacteremia - TTE pending - Random cortisol 40.1 (2) Atrial fibrillation with RVR Current Visit: Yes Status: Acute Afib with RVR - History of Afib - Refractory to two electric cardioversions in the ED - On eliquis at home - Anticoagulation held - Cardiology consulted - Amio drip started overnight, continuing (3) Diabetes mellitus Current Visit: No Status: Chronic Hx of DM - Accuchecks q4h - High-dose corrective insulin - A1C 12.2% on 12/15/18 (4) Elevated troponin Current Visit: Yes Status: Acute Elevated troponin - 0.13>>0.12 - Cardiology: Suspected demand ischemia in the setting of sepsis/shock/afib - Echo pending (5) Encephalopathy acute Current Visit: No Status: Resolved Acute encephalopathy - Likely secondary to shock and metabolic disturbances (6) End stage renal disease on dialysis Current Visit: Yes Status: Chronic ESRD - Nephrology consulted - CRRT today per nephro - Temporary dialysis catheter in R groin via IR (7) Hyperkalemia Current Visit: Yes Status: Acute Hyperkalemia - K 5.2 - CRRT today - Will continue to monitor K - Continuous cardiac monitoring (8) Nonischemic cardiomyopathy Current Visit: Yes Status: Chronic Nonischemic Cardiomyopathy - Cardiology consulted - Monitor I&Os and weight - Echo pending - EF 20% NICMP on previous echo (9) Rhabdomyolysis Current Visit: Yes Status: Acute Rhabdomyolysis - CK 1390 - CRRT today - Will follow CK (10) Tobacco abuse Current Visit: No Status: Chronic Nicotine patch (11) DVT prophylaxis Current Visit: No Status: Acute Sub Q heparin History of Present Illness Consult date: 02/01/19 Requesting physician: Orin Thakkar History of present illness: Mr. gerber is a 48yo Male with a past medical history of ESRD on HD MWF, systolic chf, afib on eliquis, cardiomyopathy, DM, HTN, HLD. He presented to the ED after being found on the ground at home. He was down for an unknown amount of time. He had altered mental status when evaluated by EMS. In the emergency room, he was hypotensive and had afib with RVR. Electric cardioversion was attempted von and failed to convert his rhythm. He was intubated and sedated. A central venous catheter and a an A-line was placed in the ED. His blood pressure was unresponsive to 3L of IVF. He was started on two vasopressors and transferred to the ICU. This morning in the ICU, he remains intubated and sedated on two vasopressors. He is unresponsive and being treated for septic and cardiogenic shock. Blood cultures have indicated MRSA bacteremia with an unknown source. Cardiology, nephrology, and palliative care have been consulted. Past Med Surg Social Fam HX - Past Medical History Medical history: arthritis, atrial fibrillation, cardiomyopathy, CHF, COPD, diabetes, dialysis, GERD, hyperlipidemia, hypertension, osteoporosis, renal disease, other Additional medical history: marijuana Psychiatric history: anxiety, depression, PTSD, other - Past Surgical History Surgical History: herniorrhaphy, vascular surgery, other Additional surgical history: dialysis graft - Social History Smoking Status: Current every day smoker Smokeless Tobacco Status: No Alcohol use: none Drug use: marijuana - Family History Father Living Status: Hx Family Cardiac Disorders: Yes (HTN) Hx Family Respiratory Disorders: No Hx Family Cancer: No Hx Family GI Disorders: No Hx Family Endocrine Disorder: No Hx Family Neuromuscular Disorders: No Hx Family Neurologic Disorders: No Hx Family HEENT Disorders: No Hx Family Autoimmune Disorders: No Mother Adopted: No Living Status: Still Living Hx Family Cardiac Disorders: Yes Hx Family Endocrine Disorder: Yes Medications and Allergies Insulin ASPART [NovoLOG] 0 unit SQ TIDWM 02/09/17 [History] Apixaban [Eliquis] 5 mg PO BID 11/22/18 [History] Fluticasone Propionate Nasal [Flonase] 1 spray NS DAILY PRN 11/22/18 [History] Calcium Acetate [Phos-LO] 3,335 mg PO TIDWM 11/23/18 [History] Midodrine HCl 10 mg PO TID 11/23/18 [History] Pregabalin [Lyrica] 100 mg PO TID 11/23/18 [History] Insulin Glargine,Hum.rec.anlog [Lantus Solostar] 25 unit SQ BID 12/15/18 [History] [place]-3/Dha/Epa/Fish Oil [Fish Oil 1,000 mg Softgel] 2 cap PO QPM 12/15/18 [History] Atorvastatin [Lipitor] 40 mg PO HS 30 Days #30 tablet 12/29/18 [Rx] Carvedilol [Coreg] 6.25 mg PO BID 01/31/19 [History] Allergy/AdvReac Type Severity Reaction Status Date / Time hydrocodone [From [place]] Allergy Intermediate Hives Verified 12/14/18 20:29 lanolin AdvReac Swelling Verified 12/14/18 20:29 [From [facility] of the Eye mineral oil AdvReac Swelling Verified 12/14/18 20:29 [From [facility] the [facility] petrolatum,white AdvReac Swelling Verified 12/14/18 20:29 [From [facility] the [facility] ROS unobtainable: due to endotracheal tube, due to mental status All Systems: The remainder of the systems were reviewed and are negative Physical Examination Vital Signs: Vital Signs, Last 4 Hours Temp Pulse Resp BP Pulse Ox 02/01/19 06:59 100.9 F H 02/01/19 06:00 122 18 66/47 93 02/01/19 05:28 18 84/55 92 02/01/19 05:00 129 18 90/52 91 02/01/19 04:45 100.1 F H 02/01/19 04:30 134 Gen: Vitals noted. Hypotensive on vasopressors. Afib with RVR. Intubated and sedated Eyes: anicteric sclerae, moist conjunctivae; Pupils 4mm, round, equal and minimally reactive to light HENT: Atraumatic, normocephalic; oropharynx clear with moist mucous membranes and no mucosal ulcerations Neck: Trachea midline; supple, no thyromegaly or lymphadenopathy Cardiac: Heart sounds difficult to auscultate due to body habitus. Peripheral pulses weak. Pulmonary: Coarse mechanical breath sounds BL, no rales or rhonchi, equal chest expansion Abdomen: soft, full, non-distended, no rigidity. No masses or hepatosplenomegaly MSK: ROM intact, no joint swelling noted Extremities: BL lower extremity edema. Dry scaly skin on feet/ankles. R foot warm, swollen more than left. No noticeable lesions or ulcers. L foot, 2-3 cm round, scabbed, ulcer on bottom of foot. Skin: Warm and dry. Dry scaly skin on BL LEs Neuro: No gag or corneal reflex. Unresponsive to external stimuli Analgesia: fentanyl gtt Sedation: versed gtt SBT: none Glycemic control: High-dose corrective insulin Bowel regimen:none Activity: none Fluids: MIVF Electrolytes: replete as necessary Nutrition: None, currently on pressors GI ppx: PPI Lines: ET, OG, winter, R fem CVC and temp dialysis catheter Consults: pulm, cardio, cardiothoracic surgery, IR Code: Full code Dispo: ICU Ventilator Settings Ventilator Settings: Ventilator Settings, Last 8 Hours Ventilator Tidal Volume 500 Setting Ventilator Tidal Volume 500 Setting Ventilator Tidal Volume 500 Setting Ventilator Tidal Volume 500 Setting Ventilator Tidal Volume 500 Setting Ventilator Tidal Volume 500 Setting Ventilator Tidal Volume 500 Setting Ventilator Tidal Volume 500 Setting Ventilator Tidal Volume 500 Setting Ventilator Tidal Volume 500 Setting Ventilator Tidal Volume 500 Setting Ventilator Tidal Volume 500 Setting Ventilator Respiratory Rate 18 Setting Ventilator Respiratory Rate 18 Setting Ventilator Respiratory Rate 18 Setting Ventilator Respiratory Rate 18 Setting Ventilator Respiratory Rate 18 Setting Ventilator Respiratory Rate 18 Setting Ventilator Respiratory Rate 18 Setting Ventilator Respiratory Rate 18 Setting Ventilator Respiratory Rate 18 Setting Ventilator Respiratory Rate 18 Setting Ventilator Respiratory Rate 18 Setting Ventilator Respiratory Rate 18 Setting Actual Respiratory Rate 18 Actual Respiratory Rate 18 Actual Respiratory Rate 18 Actual Respiratory Rate 18 Actual Respiratory Rate 18 Actual Respiratory Rate 18 Actual Respiratory Rate 18 Actual Respiratory Rate 18 Actual Respiratory Rate 19 Actual Respiratory Rate 18 Positive End Expiratory 5 Pressure Positive End Expiratory 5 Pressure Positive End Expiratory 5 Pressure Positive End Expiratory 5 Pressure Positive End Expiratory 5 Pressure Positive End Expiratory 5 Pressure Positive End Expiratory 5 Pressure Positive End Expiratory 5 Pressure Positive End Expiratory 5 Pressure Positive End Expiratory 5 Pressure Positive End Expiratory 5 Pressure Positive End Expiratory 5 Pressure Peak Inspiratory Airway 29 Pressure Peak Inspiratory Airway 30 Pressure Peak Inspiratory Airway 31 Pressure Peak Inspiratory Airway 32 Pressure Peak Inspiratory Airway 32 Pressure Peak Inspiratory Airway 31 Pressure Peak Inspiratory Airway 30 Pressure Peak Inspiratory Airway 30 Pressure Peak Inspiratory Airway 29 Pressure Peak Inspiratory Airway 31 Pressure Results - Laboratory Findings CBC and BMP: 02/01/19 05:06 02/01/19 02:25 ABG ABG pH 7.23 pH Units (7.32-7.45) L 02/01/19 04:58 ABG pCO2 60 mmHg (35-45) H 02/01/19 04:58 ABG pO2 60 mmHg (85-104) L 02/01/19 04:58 ABG O2 Saturation 85 % (95-98) L 02/01/19 04:58 PT/INR, D-dimer PT 21.2 Seconds (9.4-12.1) H 02/01/19 05:06 Abnormal lab findings: Abnormal lab results WBC 19.4 K/mcL (4.3-11.1) H 02/01/19 05:06 RBC 5.52 M/mcL (4.19-5.50) H 02/01/19 05:06 MCH 27.5 pg (28.0-33.3) L 02/01/19 05:06 MCHC 31.0 g/dL (31.6-35.5) L 02/01/19 05:06 RDW 19.2 % (11.5-14.5) H 02/01/19 05:06 Plt Count 77 K/mcL (140-400) L 02/01/19 05:06 Neutrophils # 17.5 K/mcL (1.6-8.9) H 02/01/19 05:06 Lymphocytes # 0.5 K/mcL (0.6-4.6) L 01/31/19 19:23 Monocytes # 1.6 K/mcL (0.0-1.3) H 01/31/19 19:23 Platelet Estimate Decreased (Normal) L 01/31/19 19:23 Immature Plt Fraction 16.0 % (1.1-6.1) H 02/01/19 05:06 PT 21.2 Seconds (9.4-12.1) H 02/01/19 05:06 APTT 46.1 Seconds (26.0-36.0) H 02/01/19 05:06 ABG pH 7.23 pH Units (7.32-7.45) L 02/01/19 04:58 ABG pCO2 60 mmHg (35-45) H 02/01/19 04:58 ABG pO2 60 mmHg (85-104) L 02/01/19 04:58 ABG HCO3 29 mEq/L (21-27) H 01/31/19 22:13 ABG Total CO2 27 mEq/L (20-26) H 02/01/19 04:58 ABG O2 Saturation 85 % (95-98) L 02/01/19 04:58 ABG Base Excess -4 mEq/L (-2 to 3) L 02/01/19 04:58 Sodium 134 mEq/L (136-145) L 02/01/19 02:25 Potassium 5.2 mEq/L (3.5-5.1) H 02/01/19 02:25 Chloride 94 mEq/L (98-107) L 02/01/19 02:25 Carbon Dioxide 21 mEq/L (23-29) L 02/01/19 02:25 BUN 59 mg/dL (6-20) H 02/01/19 02:25 Creatinine 9.38 mg/dL (0.70-1.30) H 02/01/19 02:25 Est GFR ( Amer) 7 (> 60) L 02/01/19 02:25 Est GFR (Non-Af Amer) 6 (> 60) L 02/01/19 02:25 Glucose 244 mg/dL (70-105) H 02/01/19 02:25 POC Glucose 193 mg/dL (70-99) H 02/01/19 00:12 Calculated Osmolality 303 (280-300) H 02/01/19 02:25 Calcium 10.4 mg/dL (8.6-10.3) H 01/31/19 19:23 Phosphorus 7.8 mg/dL (2.7-4.5) H 02/01/19 02:25 Total Bilirubin 1.3 mg/dL (0.3-1.0) H 02/01/19 02:25 Direct Bilirubin 0.5 mg/dL (0.0-0.2) H 01/31/19 19:23 Alkaline Phosphatase 188 Units/L (34-104) H 02/01/19 02:25 Creatine Kinase 1390 Units/L (30-223) H 02/01/19 02:25 Troponin I 0.12 ng/mL (< 0.04) H* 02/01/19 02:25 Serum Total Protein 6.3 g/dL (6.4-8.9) L 02/01/19 02:25 Lipase 4 Units/L (11-82) L 02/01/19 02:25 - Microbiology Findings Microbiology Findings: Microbiology, Last 48 Hours 01/31/19 19:23 Blood Culture - Preliminary Peripheral Venipuncture Gram Positive Cocci 01/31/19 19:23 Blood Culture - Preliminary Peripheral Venipuncture Gram Positive Cocci - Clinical Findings Intake & Output: Intake & Output 01/31/19 02/01/19 02/01/19 23:59 07:59 15:59 Intake Total 3199 / 3199 2715.7 / 2715.7 Output Total 0 / 0 Balance 3199 / 3199 2715.7 / 2715.7 Weight 125.1 kg 120.7 kg Consult Discharge Plan - Plan Referrals: NONE,PCP [Primary Care Provider] - <Marbella Sam - Last Filed: 02/01/19 15:54> Date of Encounter: 02/01/19 All Systems: The remainder of the systems were reviewed and are negative Physical Examination Vital Signs: Vital Signs, Last 4 Hours Pulse Resp BP Pulse Ox 02/01/19 15:00 142 24 87/61 96 02/01/19 14:00 142 24 83/64 02/01/19 13:36 24 92/59 97 02/01/19 13:00 159 24 81/57 02/01/19 12:00 145 24 74/50 Ventilator Settings Ventilator Settings: Ventilator Settings, Last 8 Hours Ventilator Tidal Volume 500 Setting Ventilator Tidal Volume 500 Setting Ventilator Tidal Volume 500 Setting Ventilator Tidal Volume 500 Setting Ventilator Tidal Volume 500 Setting Ventilator Tidal Volume 500 Setting Ventilator Tidal Volume 500 Setting Ventilator Tidal Volume 500 Setting Ventilator Tidal Volume 500 Setting Ventilator Tidal Volume 500 Setting Ventilator Tidal Volume 500 Setting Ventilator Respiratory Rate 24 Setting Ventilator Respiratory Rate 24 Setting Ventilator Respiratory Rate 24 Setting Ventilator Respiratory Rate 24 Setting Ventilator Respiratory Rate 24 Setting Ventilator Respiratory Rate 24 Setting Ventilator Respiratory Rate 24 Setting Ventilator Respiratory Rate 24 Setting Ventilator Respiratory Rate 24 Setting Ventilator Respiratory Rate 24 Setting Ventilator Respiratory Rate 24 Setting Ventilator Respiratory Rate 24 Setting Actual Respiratory Rate 24 Actual Respiratory Rate 24 Actual Respiratory Rate 24 Actual Respiratory Rate 24 Actual Respiratory Rate 24 Actual Respiratory Rate 24 Actual Respiratory Rate 24 Actual Respiratory Rate 24 Actual Respiratory Rate 24 Actual Respiratory Rate 24 Actual Respiratory Rate 24 Positive End Expiratory 5 Pressure Positive End Expiratory 5 Pressure Positive End Expiratory 5 Pressure Positive End Expiratory 5 Pressure Positive End Expiratory 5 Pressure Peak Inspiratory Airway 36 Pressure Peak Inspiratory Airway 36 Pressure Peak Inspiratory Airway 39 Pressure Peak Inspiratory Airway 39 Pressure Peak Inspiratory Airway 39 Pressure Peak Inspiratory Airway 32 Pressure Peak Inspiratory Airway 29 Pressure Peak Inspiratory Airway 29 Pressure Peak Inspiratory Airway 28 Pressure Peak Inspiratory Airway 13 Pressure Peak Inspiratory Airway 13 Pressure Results - Laboratory Findings CBC and BMP: 02/01/19 05:06 02/01/19 02:25 ABG ABG pH 7.29 pH Units (7.32-7.45) L 02/01/19 08:47 ABG pCO2 51 mmHg (35-45) H 02/01/19 08:47 ABG pO2 72 mmHg (85-104) L 02/01/19 08:47 ABG O2 Saturation 92 % (95-98) L 02/01/19 08:47 PT/INR, D-dimer PT 21.2 Seconds (9.4-12.1) H 02/01/19 05:06 Abnormal lab findings: Abnormal lab results WBC 19.4 K/mcL (4.3-11.1) H 02/01/19 05:06 RBC 5.52 M/mcL (4.19-5.50) H 02/01/19 05:06 MCH 27.5 pg (28.0-33.3) L 02/01/19 05:06 MCHC 31.0 g/dL (31.6-35.5) L 02/01/19 05:06 RDW 19.2 % (11.5-14.5) H 02/01/19 05:06 Plt Count 77 K/mcL (140-400) L 02/01/19 05:06 Neutrophils # 17.5 K/mcL (1.6-8.9) H 02/01/19 05:06 Lymphocytes # 0.5 K/mcL (0.6-4.6) L 01/31/19 19:23 Monocytes # 1.6 K/mcL (0.0-1.3) H 01/31/19 19:23 Platelet Estimate Decreased (Normal) L 01/31/19 19:23 Immature Plt Fraction 16.0 % (1.1-6.1) H 02/01/19 05:06 PT 21.2 Seconds (9.4-12.1) H 02/01/19 05:06 APTT 46.1 Seconds (26.0-36.0) H 02/01/19 05:06 ABG pH 7.29 pH Units (7.32-7.45) L 02/01/19 08:47 ABG pCO2 51 mmHg (35-45) H 02/01/19 08:47 ABG pO2 72 mmHg (85-104) L 02/01/19 08:47 ABG HCO3 29 mEq/L (21-27) H 01/31/19 22:13 ABG Total CO2 27 mEq/L (20-26) H 02/01/19 04:58 ABG O2 Saturation 92 % (95-98) L 02/01/19 08:47 ABG Base Excess -3 mEq/L (-2 to 3) L 02/01/19 08:47 Sodium 134 mEq/L (136-145) L 02/01/19 02:25 Potassium 5.2 mEq/L (3.5-5.1) H 02/01/19 02:25 Chloride 94 mEq/L (98-107) L 02/01/19 02:25 Carbon Dioxide 21 mEq/L (23-29) L 02/01/19 02:25 BUN 59 mg/dL (6-20) H 02/01/19 02:25 Creatinine 9.38 mg/dL (0.70-1.30) H 02/01/19 02:25 Est GFR ( Amer) 7 (> 60) L 02/01/19 02:25 Est GFR (Non-Af Amer) 6 (> 60) L 02/01/19 02:25 Glucose 244 mg/dL (70-105) H 02/01/19 02:25 POC Glucose 193 mg/dL (70-99) H 02/01/19 00:12 Calculated Osmolality 303 (280-300) H 02/01/19 02:25 Calcium 10.4 mg/dL (8.6-10.3) H 01/31/19 19:23 Venous Ioniz Calcium 1.07 mmol/L (1.15-1.35) L 02/01/19 15:32 Phosphorus 7.8 mg/dL (2.7-4.5) H 02/01/19 02:25 Total Bilirubin 1.3 mg/dL (0.3-1.0) H 02/01/19 02:25 Direct Bilirubin 0.5 mg/dL (0.0-0.2) H 01/31/19 19:23 Alkaline Phosphatase 188 Units/L (34-104) H 02/01/19 02:25 Creatine Kinase 1390 Units/L (30-223) H 02/01/19 02:25 Troponin I 0.12 ng/mL (< 0.04) H* 02/01/19 02:25 Serum Total Protein 6.3 g/dL (6.4-8.9) L 02/01/19 02:25 Lipase 4 Units/L (11-82) L 02/01/19 02:25 Hep Bs Antibody < 3.10 mIU/mL (10.00-) L 02/01/19 13:25 Staph aureus (PCR) DETECTED (Not Detect) A 01/31/19 19:23 mecA-Methicil Res Gene DETECTED (Not Detect) A 01/31/19 19:23 - Microbiology Findings Microbiology Findings: Microbiology, Last 48 Hours 01/31/19 19:23 Blood Culture - Preliminary Peripheral Venipuncture Gram Positive Cocci 01/31/19 19:23 Blood Culture - Preliminary Peripheral Venipuncture Gram Positive Cocci - Clinical Findings Intake & Output: Intake & Output 01/31/19 02/01/19 02/01/19 23:59 07:59 15:59 Intake Total 3199 / 3199 2715.7 / 4482.3 1766.6 / 4482.3 Output Total 0 / 0 0 / 0 Balance 3199 / 3199 2715.7 / 4482.3 1766.6 / 4482.3 Weight 125.1 kg 120.7 kg 127 kg - Attending Attestation I saw and evaluated this patient and my medical decision-making was reviewed with the Resident Physician. I agree with the documented findings, disposition and treatment plan as described except to the extent set forth below. We independently had [id number] contact with the patient I spent 55 minutes of Critical Care time with this patient. It involved decision making of high complexity to assess, manipulate, and support vital organ system failure and/or to prevent further life threatening deterioration of the patient's condition. The time involved in the performance of separately reportable procedures was not counted toward critical care time. Patient seen and examined at bedside Labs, radiology, chart personally reviewed. Management was reviewed during multidisciplinary critical care rounds. BOTTLING LINE ATTENDANT: Patient has encephalopathy unable to assess with full neurological exam patient is sedated intubated and mechanical ventilated. Pulm: Patient V/Q mismatch is complicated by pneumonia and possible hydrostatic pulmonary edema as patient is a severer systolic congestive heart failure. Cannot do diuresis as patient is in significant septic shock complicated by systolic heart failure. Patient has acceptable oxygenation and ventilation. Cards: Patient is most likely septic shock complicated by low cardiac output heart failure patient is on triple vasopressor therapy as patient is going on CVVH complicating the picture is atrial fibrillation with rapid ventricular rate not adequately controlled by cardioversion, amiodarone even on digoxin. Doubt that repeat cardioversion will be helpful. To get full echocardiogram to trend troponins. It was an acute coronary event patient will be have poor prognosis patient will not be a cardiac catheterization candidate FEN-GI: Advance diet as tolerated we will keep him nothing by mouth for now because of severe shock. Renal: Labs and output were reviewed patient is going on CVVH today ID: To cover with broad-spectrum antibiotics Heme/Onc: Endo: Glucose Monitored , started on stress dose steroid as patient has refractory shock Integ/MSK: Skin Care per routine ICU Nursing Protocol to prevent ulcers. Lines: All lines examined without evidence of infection : Dispo: Critically ill CODE: Full Code
[2019-02-01 08:21] LABS: Enterococcus by PCR Not Detected (Not Detect); Staphylococcus aureus by PCR DETECTED (Not Detect); Streptococcus agalactiae(B)PCR Not Detected (Not Detect); Streptococcus by PCR Not Detected (Not Detect); Streptococcus pneumoniae PCR Not Detected (Not Detect); Streptococcus pyogenes (A) PCR Not Detected (Not Detect); blaKPC Carbapenem-Resist Gene Not Detected (Not Detect); mecA Methicillin-Resist Gene DETECTED (Not Detect); vanA/B Vancomycin-Resist Genes Not Detected (Not Detect)
[2019-02-01 08:22] LABS: Acinetobacter baumannii by PCR Not Detected (Not Detect); Candida albicans by PCR Not Detected (Not Detect); Candida glabrata by PCR Not Detected (Not Detect); Candida krusei by PCR Not Detected (Not Detect); Candida parapsilosis by PCR Not Detected (Not Detect); Candida tropicalis by PCR Not Detected (Not Detect); Enterobacter cloacae Cmplx PCR Not Detected (Not Detect); Enterobacteriaceae by PCR Not Detected (Not Detect); Escherichia coli by PCR Not Detected (Not Detect); Klebsiella oxytoca by PCR Not Detected (Not Detect); Klebsiella pneumoniae by PCR Not Detected (Not Detect); Proteus by PCR Not Detected (Not Detect); Pseudomonas aeruginosa by PCR Not Detected (Not Detect); Serratia marcescens by PCR Not Detected (Not Detect)
[2019-02-01] MEDS ORDERED: Artificial Tears SOLN 15 ML BOTTLE BOTH EYES PRN (08:36)
[2019-02-01 08:53] LABS: ABG Base Excess -3 mEq/L (-2 to 3); ABG HCO3 24 mEq/L (21-27); ABG Oxygen Saturation 92 % (95-98); ABG PCO2 51 mmHg (35-45); ABG PH 7.29 pH Units (7.32-7.45); ABG PO2 72 mmHg (85-104); ABG TCO2 26 mEq/L (20-26); Blood Gas Modality ASSIST CONTROL; Blood Gas PEEP 5 cm H2O; Blood Gas VT 500 cc
[2019-02-01] MEDS ORDERED: Vancomycin 1,750 MG in 0.9 % Sodium Chloride 250 ML IVPB SCH (09:00)
--- NOTE | 2019-02-01 09:31 | Nephrology Consult Note ---
<Branden Verdin N - Last Filed: 02/01/19 14:02> Date of Encounter: 02/01/19 Time of Encounter: 09:20 Assessment and Plan (1) End stage renal disease Status: Chronic Patient on dialysis Wednesday schedule, but questionable whether patient was able to make Wednesday session. Due for dialysis today Currently requiring dual pressors in order to keep blood pressure stabilized preventing HD -IR to place a temporary HD catheter -CRRT to begin following placement of line (4) Rhabdomyolysis Status: Acute Patient found down at home for unknown period of time CK of 1210 on admission -CK up to 1390 -Restart hydration when possible Qualifiers: Rhabdomyolysis type: non-traumatic Qualified Code(s): M62.82 - Rhabdomyolysis (5) Hyperkalemia Status: Acute Potassium of 5.3 currently Questionable if pt was able to make diaylsis appointment on Wednesday -CRRT therapy -Continue to monitor (6) Hyperphosphatemia Status: Acute Phosphorus of 7.8 -CRRT -Continue to monitor History of Present Illness - Reason for Consult end stage renal disease, hyperkalemia - History of Present Illness 48M with significant PMH of ESRD on hemodialysis Wednesday, atrial fibrillation, CHF, diabetes, and hypertension presents to the ED after being found by EMS being down for an unknown period of time at home. Patient was reportedly altered for EMS when found. In ED patient was found to have unstable atrial fibrillation with RVR and electrical cardioversion was attempted 2 times without success. Patient was started on amiodarone drip and intubated due to respiratory failure. Patient's labs significant for potassium of 5.3, phosphorus of 7.8 GFR of 6, troponin of 0.13, initial CK of 1210, platelet count of 77, and white count of 17.1. 2 out of 2 blood cultures positive for staph aureus. Serology significant for MRSA. Chest x-ray with no significant findings. Negative head CT. Currently patient is intubated and sedated thus further history unable to be obtained. Past Med Surg Social Fam HX - Past Medical History Medical history: arthritis, atrial fibrillation, cardiomyopathy, CHF, COPD, diabetes, dialysis, GERD, hyperlipidemia, hypertension, osteoporosis, renal disease, other Additional medical history: marijuana Psychiatric history: anxiety, depression, PTSD, other - Past Surgical History Surgical History: herniorrhaphy, vascular surgery, other Additional surgical history: dialysis graft - Social History Smoking Status: Current every day smoker Smokeless Tobacco Status: No Alcohol use: none Drug use: marijuana - Family History Father Living Status: Hx Family Cardiac Disorders: Yes (HTN) Hx Family Respiratory Disorders: No Hx Family Cancer: No Hx Family GI Disorders: No Hx Family Endocrine Disorder: No Hx Family Neuromuscular Disorders: No Hx Family Neurologic Disorders: No Hx Family HEENT Disorders: No Hx Family Autoimmune Disorders: No Mother Adopted: No Living Status: Still Living Hx Family Cardiac Disorders: Yes Hx Family Endocrine Disorder: Yes Medications and Allergies Insulin ASPART [NovoLOG] 0 unit SQ TIDWM 02/09/17 [History] Apixaban [Eliquis] 5 mg PO BID 11/22/18 [History] Fluticasone Propionate Nasal [Flonase] 1 spray NS DAILY PRN 11/22/18 [History] Calcium Acetate [Phos-LO] 3,335 mg PO TIDWM 11/23/18 [History] Midodrine HCl 10 mg PO TID 11/23/18 [History] Pregabalin [Lyrica] 100 mg PO TID 11/23/18 [History] Insulin Glargine,Hum.rec.anlog [Lantus Solostar] 25 unit SQ BID 12/15/18 [History] [place]-3/Dha/Epa/Fish Oil [Fish Oil 1,000 mg Softgel] 2 cap PO QPM 12/15/18 [History] Atorvastatin [Lipitor] 40 mg PO HS 30 Days #30 tablet 12/29/18 [Rx] Carvedilol [Coreg] 6.25 mg PO BID 01/31/19 [History] Allergy/AdvReac Type Severity Reaction Status Date / Time hydrocodone [From [place]] Allergy Intermediate Hives Verified 12/14/18 20:29 lanolin AdvReac Swelling Verified 12/14/18 20:29 [From [employer] [facility] [place] [facility] mineral oil AdvReac Swelling Verified 12/14/18 20:29 [From [employer] [facility] petrolatum,white AdvReac Swelling Verified 12/14/18 20:29 [From [employer] [facility] Review of Systems ROS unobtainable: due to endotracheal tube Exam - Vital Signs Vital signs: Initial Vital Signs Temp Pulse Resp BP Pulse Ox 96.9 F L 153 28 148/120 100 01/31/19 19:17 01/31/19 19:17 01/31/19 19:17 01/31/19 19:17 01/31/19 19:17 Vital Signs - Last 8 Hours Temp Pulse Resp BP Pulse Ox 02/01/19 08:00 132 02/01/19 06:59 100.9 F H 02/01/19 06:00 122 18 66/47 93 02/01/19 05:28 18 84/55 92 02/01/19 05:00 129 18 90/52 91 02/01/19 04:45 100.1 F H 02/01/19 04:30 134 02/01/19 04:00 131 18 72/46 91 02/01/19 03:35 18 62/42 92 02/01/19 03:00 125 18 82/52 91 02/01/19 02:00 129 18 84/54 91 Intake and Output 01/31/19 02/01/19 02/01/19 23:59 07:59 15:59 Intake Total 3199 / 3199 2715.7 / 2715.7 Output Total 0 / 0 0 / 0 Balance 3199 / 3199 2715.7 / 2715.7 0 / 2715.7 Intake: IV Fluids 3199 / 3199 2715.7 / 2715.7 0.9 % Sodium Chloride 1,000 ML 1999 / 1999 1000 / 1000 @ 0 mls/hr .ROUTE .STK-MED ONE Rx#:[id number] 0.9 % Sodium Chloride 1,000 ML 1000 / 1000 @ 999 mls/hr IVC .Q1H1M ONE Rx# :[id number] Amiodarone Drip Premix 360mg/ 200 / 200 200mL 360 mg In 200 ml @ 1 MG/ MIN 33.333 mls/hr IVC ONCE ONE Rx#:[id number] FentaNYL (PF) 1,000 MCG In 0.9 20 / 20 80 / 80 % Sodium Chloride 80 ML @ 50 MCG/HR 5 mls/hr IVC CONT STA Rx #:[id number] Heparin 25,000 UNIT/250 ML D5W 76 / 76 25,000 unit In 250 ml @ 14 UNIT /KG/HR 16.898 mls/hr IVC . [id number] [place] Rx#:[id number] Versed 50 MG In 0.9 % Sodium 19.1 / 19.1 Chloride 90 ML @ 2 MG/HR 4 mls/ hr IVC CONT STA Rx#:[id number] Levophed 8 MG In 0.9 % Sodium 59 / 59 252.2 / 252.2 Chloride 250 ML @ 0.5 MCG/MIN 0 .968 mls/hr IVC CONT [place] Rx#: [id number] Phenylephrine 20 MG In 0.9 % 488.4 / 488.4 Sodium Chloride 250 ML @ 100 MCG/MIN 75.6 mls/hr IVC CONT [place] Rx#:[id number] Diprivan 1,000 mg In 100 ml @ 5 100 / 100 MCG/KG/MIN 3.753 mls/hr IVC . Q24H [place] Rx#:[id number] Zosyn 3.375 GM In Water for inj 20 / 20 . (sterile) 20 ML @ 400 mls/hr IVP ONCE ONE Rx#:[id number] Amiodarone Premix 150mg/100mL 100 / 100 150 mg In 100 ml @ 300 mls/hr IVPB ONCE ONE Rx#:[id number] Vancocin 2,000 MG In 0.9 % 500 / 500 Sodium Chloride 500 ML @ 250 mls/hr IVPB ONCE ONE Rx#: [id number] Output: Catheter 0 / 0 0 / 0 Urethral (Green) 0 / 0 Gastric Drainage 0 / 0 Other: Weight 125.1 kg 120.7 kg Blood Glucose* 168 193 Patient Weight 02/01/19 23:59 Weight 120.7 kg - General Appearance General appearance: obese, chronically ill, intubated Additional Comments: ET tube is in place. No evidence of scleral icterus. Neck: no thyromegaly Additional Comments: No adenopathy Respiratory: clear Cardiology: edema, irregular rhythm Gastrointestinal: normoactive bowel sounds, obese Integumentary: chronic venous stasis Additional Comments: Left foot with venous-appearing ulceration on the plantar surface. Bilateral lower extremities with extensive chronic venous stasis changes. Additional Comments: Unable to obtain as patient is currently sedated and intubated. Additional Comments: Chronic venous stasis changes to bilateral lower extremities with darkening of the skin and hardening. Warmth over the dorsal aspect of the right foot. Left arm with graft in place but no evidence of thrill and warmth over the overlying skin. Additional Comments: Unable to obtain as patient is sedated and intubated. Results - Lab Results 02/01/19 05:06 02/01/19 02:25 Most recent lab results 01/31/19 02/01/19 02/01/19 22:13 01:16 02:25 ABG pH 7.19 L* 7.24 L ABG pCO2 77 H* 62 H ABG pO2 285 H 71 L D ABG HCO3 29 H 26 ABG O2 Saturation 100 H 90 L Calcium 9.2 Phosphorus 7.8 H Magnesium 02/01/19 02/01/19 02/01/19 04:58 05:06 08:47 ABG pH 7.23 L 7.29 L ABG pCO2 60 H 51 H ABG pO2 60 L 72 L ABG HCO3 25 24 ABG O2 Saturation 85 L 92 L Calcium Phosphorus Magnesium 2.2 Consult Discharge Plan - Plan Referrals: NONE,PCP [Primary Care Provider] - <Santosh Leavitt - Last Filed: 02/13/19 02:27> Date of Encounter: 02/01/19 Assessment and Plan (1) End stage renal disease on dialysis Status: Chronic (2) Hypophosphatemia Status: Acute (3) Altered mental status Status: Acute Qualifiers: Altered mental status type: unspecified Qualified Code(s): R41.82 - Altered mental status, unspecified (4) Bacteremia Status: Acute (5) Hypotension Status: Acute Qualifiers: Hypotension type: unspecified hypotension type Qualified Code(s): I95.9 - Hypotension, unspecified (6) Rhabdomyolysis Status: Resolved Qualifiers: Rhabdomyolysis type: non-traumatic Qualified Code(s): M62.82 - Rhabdomyolysis (7) Thrombocytopenia Status: Chronic Exam - Vital Signs Vital signs: Initial Vital Signs Temp Pulse Resp BP Pulse Ox 96.9 F L 153 28 148/120 100 01/31/19 19:17 01/31/19 19:17 01/31/19 19:17 01/31/19 19:17 01/31/19 19:17 Results - Lab Results 02/07/19 03:20 02/07/19 03:20 - Attending Attestation I examined this patient and my medical decision-making was reviewed with the Resident Physician/RN DERMATOLOGY. I agree with the documented findings, disposition and treatment plan as described except to the extent set forth below. In brief; 48 yo AAmale with PMH of DM, HTN and ESRD on HD admitted after being found down to unknown duration of time. Renal consulted for ESRD management. Pt seen and examined intubated and sedated on pressor support. On exam: Gen: intubated, sedated, lungs coarse BS bilat, heart S1S2, Abd softly distended, Ext +LE edema bilat, chronic venous changes bilat and neuro unable to assess. Given hemodynamic instability, will start CRRT once temp line obtained from IR. [place] singh.
[2019-02-01] MEDS: Chlorhexidine Rinse 15 ML MOUTHWASH MM SCH ×2 (09:42→20:40)
[2019-02-01] MEDS: Pantoprazole 40 MG VIAL IVP SCH (09:42)
[2019-02-01] MEDS ORDERED: 0.9 % Sodium Chloride 250 ML IVC PRN (10:21)
[2019-02-01] MEDS ORDERED: *HR* Heparin 10,000 UNIT/10 ML VIAL IV PRN (10:21)
--- NOTE | 2019-02-01 10:39 | Electrocardiograph Report ---
[facility] Test Date: 2019-01-31 Pat Name: Eduar Hatch Department: [id number] Room: 04 Gender: M Manager Room: : 1970 Requested By: Paolo Barreto Order Number: [id number] Reading MD: León Fuentes Measurements Intervals [place] Rate: 161 P: CT: QRS: 177 QRSD: 88 T: 40 QT: 284 QTc: 465 Interpretive Statements Atrial fibrillation with rapid ventricular response Anterior infarct, old Electronically Signed On 02-01-2019 10:37:55 EDT by León Fuentes
--- NOTE | 2019-02-01 11:01 | Cardiology Consult Note ---
<Leonardo Moore - Last Filed: 02/01/19 11:15> Date of Encounter: 02/01/19 Time of Encounter: 10:59 Assessment and Plan (1) Atrial fibrillation with RVR Current Visit: Yes Status: Acute Atrial fibrillation with RVR in the setting of sepsis. Agree with amiodarone bolus and IV gtt. Given IV digoxin. Requiring presser support for hypotension. May need QUIQUE for MRSA bacteremia. If QUIQUE completed consider cardioversion during procedure. Discussed with Dr. Charlton, plan for procedure tomorrow. (2) Elevated troponin Current Visit: Yes Status: Acute Mild troponin elevation in setting of sepsis and atrial fibrillation with RVR. Suspect demand ischemia. TTE pending. Know NICMP. Per reports [facility] @))( with no significant disease. (3) Nonischemic cardiomyopathy Current Visit: Yes Status: Chronic Known EF 20%. NICMP. Chronic HFrEF. BLE edema noted. improved from last visit. CXR with no edema. Currently requiring pressor support for hypotension, septic shock. Monitor strict I&O and daily weights. Discussion w patient/family: The assessment and plan as outlined above was discussed with the patient and/or family members who expressed understanding and agreement. All questions were answered. Thank you for involving us in the care of your patient. Please call with any questions. History of Present Illness Consult date: 02/01/19 Requesting physician: Elijah Fuentes Consult reason: Elevated troponin Chief complaint: AMS, unresponsive History of present illness: Mr. Hatch is a 48 year old male with past medical history of HFrEF, NICMP, atrial fibrillation on eliquis, ESRD on dialysis, HTN, and non-compliance. Presented by EMS after he was found unresponsive at home. Currently intubated on ventilator support. On sedation. Information obtained from medical staff and record. Patient was reported to have waning consciousness while in the ED and then required intubation. He was recently hospitalized after missing dialysis. It is not clear that he missed dialysis. He is found to have MRSA bacteremia, fever, and leukocytosis. Cardiology consulted for atrial fibrillation with RVR. Past Med Surg Social Fam HX - Past Medical History Medical history: arthritis, atrial fibrillation, cardiomyopathy, CHF, COPD, diabetes, dialysis, GERD, hyperlipidemia, hypertension, osteoporosis, renal disease, other Additional medical history: marijuana Psychiatric history: anxiety, depression, PTSD, other - Past Surgical History Surgical History: herniorrhaphy, vascular surgery, other Additional surgical history: dialysis graft - Social History Smoking Status: Current every day smoker Smokeless Tobacco Status: No Alcohol use: none Drug use: marijuana - Family History Father Living Status: Hx Family Cardiac Disorders: Yes (HTN) Hx Family Respiratory Disorders: No Hx Family Cancer: No Hx Family GI Disorders: No Hx Family Endocrine Disorder: No Hx Family Neuromuscular Disorders: No Hx Family Neurologic Disorders: No Hx Family HEENT Disorders: No Hx Family Autoimmune Disorders: No Mother Adopted: No Living Status: Still Living Hx Family Cardiac Disorders: Yes Hx Family Endocrine Disorder: Yes Medications and Allergies Insulin ASPART [NovoLOG] 0 unit SQ TIDWM 02/09/17 [History] Apixaban [Eliquis] 5 mg PO BID 11/22/18 [History] Fluticasone Propionate Nasal [Flonase] 1 spray NS DAILY PRN 11/22/18 [History] Calcium Acetate [Phos-LO] 3,335 mg PO TIDWM 11/23/18 [History] Midodrine HCl 10 mg PO TID 11/23/18 [History] Pregabalin [Lyrica] 100 mg PO TID 11/23/18 [History] Insulin Glargine,Hum.rec.anlog [Lantus Solostar] 25 unit SQ BID 12/15/18 [History] [place]-3/Dha/Epa/Fish Oil [Fish Oil 1,000 mg Softgel] 2 cap PO QPM 12/15/18 [History] Atorvastatin [Lipitor] 40 mg PO HS 30 Days #30 tablet 12/29/18 [Rx] Carvedilol [Coreg] 6.25 mg PO BID 01/31/19 [History] Allergy/AdvReac Type Severity Reaction Status Date / Time hydrocodone [From [place]] Allergy Intermediate Hives Verified 12/14/18 20:29 lanolin AdvReac Swelling Verified 12/14/18 20:29 [From [employer] S[employer] of the Eye mineral oil AdvReac Swelling Verified 12/14/18 20:29 [From [employer] [facility] of the Eye petrolatum,white AdvReac Swelling Verified 12/14/18 20:29 [From [employer] [facility] of the Eye All Systems Review: The remainder of the systems were reviewed and are negative Physical Examination Vital Signs, Last 4 Hours Temp Pulse 02/01/19 10:23 101.5 F H 02/01/19 08:00 132 General: Other (intubated, sedated) HEENT: Atraumatic, Normocephaly, Mucus Membranes Moist Neck: No JVD, Normal carotid pulses Cardiac: Other (Irregular) Lungs: Normal Breath Sounds, No Wheeze, Rales, Rhonchi Neuro: Alert and responsive, No focal deficits noted Abdomen: Soft, Non-Tender Skin: No rashes noted on visualized skin Musculoskeletal: No Chest Wall Tenderness Extremities: Other (2-3+ BLE Pitting edema. Thick hardened skin, ) Results 02/01/19 05:06 02/01/19 02:25 Lab Results 01/31/19 01/31/19 01/31/19 19:23 19:23 19:23 WBC 17.1 H Hgb 15.5 Hct 49.3 Plt Count 72 L INR 2.0 APTT 38.5 H Sodium 137 Potassium 5.3 H Chloride 91 L Carbon Dioxide 21 L BUN 54 H Creatinine 9.55 H Glucose 181 H Calcium 10.4 H Magnesium Total Bilirubin 1.3 H AST 33 ALT 12 Alkaline Phosphatase 223 H Troponin I 0.13 H* Lipase TSH 1.173 02/01/19 02/01/19 02/01/19 02:25 05:06 05:06 WBC 19.4 H Hgb 15.2 Hct 49.0 Plt Count 77 L INR 1.9 APTT 46.1 H Sodium 134 L Potassium 5.2 H Chloride 94 L Carbon Dioxide 21 L BUN 59 H Creatinine 9.38 H Glucose 244 H Calcium 9.2 Magnesium Total Bilirubin 1.3 H AST 36 ALT 13 Alkaline Phosphatase 188 H Troponin I 0.12 H* Lipase 4 L TSH 02/01/19 05:06 WBC Hgb Hct Plt Count INR APTT Sodium Potassium Chloride Carbon Dioxide BUN Creatinine Glucose Calcium Magnesium 2.2 Total Bilirubin AST ALT Alkaline Phosphatase Troponin I Lipase TSH - Imaging and Cardiology Echo: report reviewed Cardiac cath: report reviewed - EKG Interpretation EKG results cardiology: personally reviewed Consult Discharge Plan - Plan Referrals: NONE,PCP [Primary Care Provider] - <Nilson Charlton A - Last Filed: 02/01/19 20:05> Date of Encounter: 02/01/19 - Attending Attestation I have personally performed a face to face evaluation on this patient. I have reviewed and agree with the documented findings and care plan as documented by the SECURITIES AND REAL ESTATE DIRECTOR. History and Exam by me shows: 48 y/o M with history of atrial fibrillation, NICM, HFrEF, ESRD on dialysis, prior alcohol abuse, multiple hospitalization due to noncompliance with outpatient follow-up, admitted with septic shock, A. fib with RVR. Continue amio drip. Obtain transthoracic echocardiogram, if unrevealing proceed to QUIQUE for MRSA bacteremia. Cardioversion may be attempted at any time if patient is hemodynamically unstable. Consider hematology consult regarding thrombocytopenia, and clearance for IV heparin drip Thanks for the consult, please call with questions. Nilson Charlton MD [facility] Assessment and Plan Discussion w patient/family: The assessment and plan as outlined above was discussed with the patient and/or family members who expressed understanding and agreement. All questions were answered. Thank you for involving us in the care of your patient. Please call with any questions. History of Present Illness History of present illness: Mr. Hatch is a 48 year old male All Systems Review: The remainder of the systems were reviewed and are negative Physical Examination Vital Signs, Last 4 Hours Temp Pulse Resp BP Pulse Ox 02/01/19 19:42 132 02/01/19 19:26 24 97 02/01/19 19:00 147 24 86/56 97 02/01/19 18:00 100.3 F H 126 24 96/63 97 02/01/19 17:05 24 105/69 97 02/01/19 17:00 139 24 97/64 97 02/01/19 16:00 102.6 F H 148 24 91/61 97 Results 02/01/19 05:06 02/01/19 02:25 Lab Results 01/31/19 02/01/19 02/01/19 19:23 02:25 05:06 WBC 19.4 H Hgb 15.2 Hct 49.0 Plt Count 77 L INR APTT Sodium 137 134 L Potassium 5.3 H 5.2 H Chloride 91 L 94 L Carbon Dioxide 21 L 21 L BUN 54 H 59 H Creatinine 9.55 H 9.38 H Glucose 181 H 244 H Calcium 10.4 H 9.2 Magnesium Total Bilirubin 1.3 H 1.3 H AST 33 36 ALT 12 13 Alkaline Phosphatase 223 H 188 H Troponin I 0.13 H* 0.12 H* Lipase 4 L TSH 1.173 02/01/19 02/01/19 05:06 05:06 WBC Hgb Hct Plt Count INR 1.9 APTT 46.1 H Sodium Potassium Chloride Carbon Dioxide BUN Creatinine Glucose Calcium Magnesium 2.2 Total Bilirubin AST ALT Alkaline Phosphatase Troponin I Lipase TSH
[2019-02-01] MEDS ORDERED: *HR* Heparin 5,000 UNIT/ML VIAL ONE (12:01)
--- NOTE | 2019-02-01 12:25 | IR Procedure Note ---
Date of procedure: 02/01/19 Consent Obtained: Verbal consent Timeout: Correct patient and procedure verified, Time out performed, Skin prep completed Local anesthetic: Lidocaine 1% Was there an retirement assistant present: No Estimated blood loss (cc): 0 Complications: None; Tolerated procedure well Indications: ARF Procedure Performed: temp dialysis catheter placement Results/Findings (any specimens removed): right femoral 15.5 f temp dialysis catheter placement Post Procedure Treatment Plan: monitor in icu Specimen: none
[2019-02-01] MEDS: Nicotine 21 MG PATCH.TD24 TD SCH (12:27)
[2019-02-01] MEDS: Insulin LISPRO 300 UNITS/3 ML VIAL SQ SCH ×4 (12:29→23:23)
[2019-02-01] MEDS: Artificial Tears SOLN 15 ML BOTTLE BOTH EYES SCH ×4 (12:41→23:23)
[2019-02-01] MEDS ORDERED: Piperacillin/Tazobactam 3.375 GM in 0.9 % Sodium Chloride Mini Bag 100 ML IVPB SCH (13:00)
--- NOTE | 2019-02-01 13:49 | Palliative - Consult Note ---
Date of Encounter: 02/01/19 Time of Encounter: 14:00 Palliative-CN HPI - Data of Consult Requesting Physician: Maria Isabel Cooper MD Primary Care Provider: PCP NONE - Consult Narrative History of present illness: Mr. Hatch is a 48 year old male who was brought to hospital via EMS after found down at home. Patient is sedated on ventilator, so information obtained from chart review and pt primary team. Family states that patient's son Raoul left for work the other morning, and patient was getting ready to get in the shower. When son came home, found pt slumped over unresponsive in bathroom. He was found to be hypotensive in the ED, and in atrial fibrillation/RVR. Cardioversion was attempted x2 and not successful, and he was started on amiodarone drip. He was transferred to the ICU for treatment of septic and cardiogenic shock. Blood cultures are + x2 - sensitivity pending. He remains on 2 vasopressors and too unstable for HD, so CRRT started this afternoon. Our palliative team has seen this patient in the past, but has been in 2016/2016. I reviewed those notes. Patient has complex medical history with ESRD on dialysis, atrial fibrillation, cardiomyopathy, CHF, DM, HTN, and HLD. He has a history of multiple hospitalizations r/t symptoms of his chronic conditions. By chart review, compliance with his medical treatment plan has been an issue. Upon my visit, he is not responding to verbal or tactile stimuli. Blood pressure remains labile. Still with significant tachycardia as well. Patient's mother, sister, and their track laying supervisor is present in the waiting room. Sons have left for a short time. CC: Maria Isabel Cooper MD - Time Spent with Patient Time: Total time spent is greater than 50% in coordination of care (as documented) at patient's floor/unit and/or counseling patient: Past Med Surg Social Fam HX - Past Medical History Medical history: arthritis, atrial fibrillation, cardiomyopathy, CHF, COPD, diabetes, dialysis, GERD, hyperlipidemia, hypertension, osteoporosis, renal disease, other Additional medical history: marijuana Psychiatric history: anxiety, depression, PTSD, other - Past Surgical History Surgical History: herniorrhaphy, vascular surgery, other Additional surgical history: dialysis graft - Social History Smoking Status: Current every day smoker Smokeless Tobacco Status: No Alcohol use: none Drug use: marijuana - Family History Father Living Status: Hx Family Cardiac Disorders: Yes (HTN) Hx Family Respiratory Disorders: No Hx Family Cancer: No Hx Family GI Disorders: No Hx Family Endocrine Disorder: No Hx Family Neuromuscular Disorders: No Hx Family Neurologic Disorders: No Hx Family HEENT Disorders: No Hx Family Autoimmune Disorders: No Mother Adopted: No Living Status: Still Living Hx Family Cardiac Disorders: Yes Hx Family Endocrine Disorder: Yes Medications and Allergies Insulin ASPART [NovoLOG] 0 unit SQ TIDWM 02/09/17 [History] Apixaban [Eliquis] 5 mg PO BID 11/22/18 [History] Fluticasone Propionate Nasal [Flonase] 1 spray NS DAILY PRN 11/22/18 [History] Calcium Acetate [Phos-LO] 3,335 mg PO TIDWM 11/23/18 [History] Midodrine HCl 10 mg PO TID 11/23/18 [History] Pregabalin [Lyrica] 100 mg PO TID 11/23/18 [History] Insulin Glargine,Hum.rec.anlog [Lantus Solostar] 25 unit SQ BID 12/15/18 [History] [place]-3/Dha/Epa/Fish Oil [Fish Oil 1,000 mg Softgel] 2 cap PO QPM 12/15/18 [History] Atorvastatin [Lipitor] 40 mg PO HS 30 Days #30 tablet 12/29/18 [Rx] Carvedilol [Coreg] 6.25 mg PO BID 01/31/19 [History] Allergy/AdvReac Type Severity Reaction Status Date / Time hydrocodone [From [place]] Allergy Intermediate Hives Verified 12/14/18 20:29 lanolin AdvReac Swelling Verified 12/14/18 20:29 [From [employer]ri-Lube S[employer] of the Eye mineral oil AdvReac Swelling Verified 12/14/18 20:29 [From [employer] of the Eye petrolatum,white AdvReac Swelling Verified 12/14/18 20:29 [From Lacri-Lube S[employer] of the Eye ROS unobtainable: due to endotracheal tube Palliative Care-Exam - Constitutional Vitals: Temp Pulse Resp BP Pulse Ox 101.5 F H 132 18 66/47 93 02/01/19 10:23 02/01/19 08:00 02/01/19 06:00 02/01/19 06:00 02/01/19 06:00 General appearance: Present: obese - Head Head Exam: Present: normal inspection, normocephalic - Respiratory Additional comments: Remains intubated on vent. Rhonchi throughout anterior chest. - Cardiovascular Cardiovascular exam: Present: irregular rhythm, tachycardia - GI/Abdominal Exam GI/Abdominal exam: Present: diminished bowel sounds, distended, soft - Extremities Exam Additional comments: Lower extremities with dry scaly skin and few small old dry ulcerated areas Generalized edema to all extremities - Neurological Exam Additional comments: Sedated on ventilator, does not respond to verbal or tactile stimuli - Skin Skin exam: Present: dry, warm Internal Medicine - CN: Reslt - Labs CBC & Chem 7: 02/01/19 05:06 02/01/19 02:25 Labs: Short CBC 01/31/19 02/01/19 Range/Units 19:23 05:06 WBC 17.1 H 19.4 H (4.3-11.1) K/mcL Hgb 15.5 15.2 (12.9-16.9) g/dL Hct 49.3 49.0 (37.5-50.1) % Plt Count 72 L 77 L (140-400) K/mcL Neutrophils # 14.8 H 17.5 H (1.6-8.9) K/mcL BMP 01/31/19 02/01/19 19:23 02:25 Sodium 137 134 L Potassium 5.3 H 5.2 H Chloride 91 L 94 L Carbon Dioxide 21 L 21 L BUN 54 H 59 H Creatinine 9.55 H 9.38 H Glucose 181 H 244 H Calcium 10.4 H 9.2 Cardiac Enzymes 01/31/19 02/01/19 Range/Units 19:23 02:25 Troponin I 0.13 H* 0.12 H* (< 0.04) ng/mL Liver Function 01/31/19 02/01/19 Range/Units 19:23 02:25 Total Bilirubin 1.3 H 1.3 H (0.3-1.0) mg/dL Direct Bilirubin 0.5 H (0.0-0.2) mg/dL AST 33 36 (13-39) Units/L ALT 12 13 (7-52) Units/L Alkaline Phosphatase 223 H 188 H (34-104) Units/L Albumin 4.1 3.5 (3.5-5.7) g/dL - ABG Interpretation ABG results: ABG ABG pH 7.29 pH Units (7.32-7.45) L 02/01/19 08:47 ABG pCO2 51 mmHg (35-45) H 02/01/19 08:47 ABG pO2 72 mmHg (85-104) L 02/01/19 08:47 ABG O2 Saturation 92 % (95-98) L 02/01/19 08:47 PT/INR, D-dimer PT 21.2 Seconds (9.4-12.1) H 02/01/19 05:06 - Impressions Impressions Chest X-Ray 01/31/19 19:38 IMPRESSION: No acute process. Stable cardiomegaly D/ / Hiram Davila MD / Hiram Davila MD Interpreting Provider: Hiram Davila MD Ankle X-Ray 01/31/19 22:16 IMPRESSION: Advanced neuropathic arthropathy of the midfoot with bony fragmentation, debris and dislocations. Findings are similar to the prior study. D/ / Janet Rondon Cha, MD / Janet Rondon Cha, MD Interpreting Provider: Janet Rondon Cha, MD Abdomen/Pelvis CT 01/31/19 22:53 IMPRESSION: Mild stranding of fat around the pancreas which could reflect acute pancreatitis. Correlate with lipase and amylase levels. Mild thickening of both adrenal glands with mild surrounding inflammatory change, possibly reflecting adrenalitis. Diverticulosis coli, without evidence of diverticulitis or colitis. Cardiomegaly and trace bilateral pleural effusions. Absent right kidney and evidence of renal osteodystrophy. D/ / Oscar Landaverde MD / Oscar Landaverde MD Interpreting Provider: Oscar Landaverde MD Head CT 01/31/19 22:53 IMPRESSION: No acute intracranial abnormality. D/ / Igor Abdi MD / Igor Abdi MD Interpreting Provider: Igor Abdi MD Chest X-Ray 01/31/19 23:38 IMPRESSION: Cardiomegaly with suspected edema. D/ / Janet Rondon Cha, MD / Janet Rondon Cha, MD Interpreting Provider: Janet Rondon Cha, MD Consult Discharge Plan - Plan Referrals: NONE,PCP [Primary Care Provider] - Palliative Quality Palliative Quality: Screen for Code Status: NA (awaiting discussion with POA), Screen for Goals of Care: NA, Screen for Pain: Yes, If Pain Regimen Started, Initiate Bowel Regimen: NA, Screen for Nausea/Vomitting: NA Code Status: 02/01/19 00:46 Resuscitation Status: Active [RES] Routine Comment: Resuscitation Status: Full Code
[2019-02-01] MEDS ORDERED: Perflutren Lipid Microsphere 1.3 ML in 0.9 % Sodium Chloride 8.7 ML IVP ONE (14:01)
[2019-02-01] MEDS ORDERED: Perflutren Lipid Microsphere 2 ML VIAL ONE (14:02)
[2019-02-01] MEDS ORDERED: Calcium Gluconate 1gm/50mL 1 GM/50 ML BAG IVPB PRN ×2 (14:25)
[2019-02-01] MEDS ORDERED: *HR* Heparin 5,000 UNIT/ML VIAL HE PRN (14:25)
[2019-02-01] MEDS ORDERED: Calcium Chloride 4,000 MG in 0.9 % Sodium Chloride 1,000 ML CRRT SCH (14:30)
[2019-02-01 14:31] LABS: Hepatitis B Surface Antibody < 3.10 mIU/mL
--- NOTE | 2019-02-01 14:34 | Palliative - Consult Note ---
Date of Encounter: 02/01/19 Time of Encounter: 14:30 - Assessment and Plan (1) Advanced care planning/counseling discussion Current Visit: Yes Status: Acute Assessment and plan: Patient not able to participate in discussion r/t sedation/vent. Advanced directives were found in his record. Appears that power of assistant city attorney for [place] was revised in 2016 and that kenton Mcqueen is the healthcare power of assistant city attorney. Living will is also present. Kenton Mcqueen has left, I did meet briefly with patient mother and sister. Their intel recruiter is also present and lending support. They have been updated on his clinical condition and understand he is critical, however, hoping that he "has another chance" and will pull through. SHANA Badillo has left for awhile. I have visited x2 and he has not returned. Our team has seen this pt in the past, however, has been in 2015/2016. At that time, he desired full aggressive care and intubation. Although he expressed he did not like being on ventilator, if it was involved in resuscitation and preserving his life, he was agreeable. I searched through records, and have not seen any documentation contraindicating that, or that any discussions have been held where he desired less aggressive care. Appears that he has been full code each hospital visit. Will continue to follow and try and speak with Richar faulkner POA. (2) Palliative care encounter Current Visit: Yes Status: Acute (3) Nonischemic cardiomyopathy Current Visit: Yes Status: Chronic Assessment and plan: Cardiology following. Troponin initially elevated, however considered likely demand ischemia. (4) End stage renal disease on dialysis Current Visit: Yes Status: Chronic Assessment and plan: Nephrology following. Typically MWF HD (5) Acute respiratory failure Current Visit: Yes Status: Acute Qualifiers: Respiratory failure complication: unspecified whether with hypoxia or hypercapnia Qualified Code(s): J96.00 - Acute respiratory failure, unspecified whether with hypoxia or hypercapnia (6) Shock Current Visit: Yes Status: Acute Assessment and plan: Continues with vasopressor support and IV atb therapy. Palliative-CN HPI - Data of Consult Requesting Physician: Maria Isabel Cooper MD Primary Care Provider: PCP NONE - Consult Narrative History of present illness: Mr. Hatch is a 48 year old male who was brought to hospital via EMS after found down at home. Patient is sedated on ventilator, so information obtained from chart review and pt primary team. Family states that patient's son Raoul left for work the other morning, and patient was getting ready to get in the shower. When son came home, found pt slumped over unresponsive in bathroom. He was found to be hypotensive in the ED, and in atrial fibrillation/RVR. Cardioversion was attempted x2 and not successful, and he was started on amiodarone drip. He was transferred to the ICU for treatment of septic and cardiogenic shock. Blood cultures are + x2 - sensitivity pending. He remains on 2 vasopressors and too unstable for HD, so CRRT started this afternoon. Our palliative team has seen this patient in the past, but has been in 2016/2017. I reviewed those notes. Patient has complex medical history with ESRD on dialysis, atrial fibrillation, cardiomyopathy, CHF, DM, HTN, and HLD. He has a history of multiple hospitalizations r/t symptoms of his chronic conditions. By chart review, compliance with his medical treatment plan has been an issue. Upon my visit, he is not responding to verbal or tactile stimuli. Blood pressure remains labile. Still with significant tachycardia as well. Patient's mother, sister, and their intel recruiter is present in the waiting room. Sons have left for a short time. CC: Maria Isabel Cooper MD - Time Spent with Patient Time: Total time spent is greater than 50% in coordination of care (as documented) at patient's floor/unit and/or counseling patient: Time with patient: 45 minutes Past Med Surg Social Fam HX - Past Medical History Medical history: arthritis, atrial fibrillation, cardiomyopathy, CHF, COPD, diabetes, dialysis, GERD, hyperlipidemia, hypertension, osteoporosis, renal disease, other Additional medical history: marijuana Psychiatric history: anxiety, depression, PTSD, other - Past Surgical History Surgical History: herniorrhaphy, vascular surgery, other Additional surgical history: dialysis graft - Social History Smoking Status: Current every day smoker Smokeless Tobacco Status: No Alcohol use: none Drug use: marijuana - Family History Father Living Status: Hx Family Cardiac Disorders: Yes (HTN) Hx Family Respiratory Disorders: No Hx Family Cancer: No Hx Family GI Disorders: No Hx Family Endocrine Disorder: No Hx Family Neuromuscular Disorders: No Hx Family Neurologic Disorders: No Hx Family HEENT Disorders: No Hx Family Autoimmune Disorders: No Mother Adopted: No Living Status: Still Living Hx Family Cardiac Disorders: Yes Hx Family Endocrine Disorder: Yes Medications and Allergies Insulin ASPART [NovoLOG] 0 unit SQ TIDWM 02/09/17 [History] Apixaban [Eliquis] 5 mg PO BID 11/22/18 [History] Fluticasone Propionate Nasal [Flonase] 1 spray NS DAILY PRN 11/22/18 [History] Calcium Acetate [Phos-LO] 3,335 mg PO TIDWM 11/23/18 [History] Midodrine HCl 10 mg PO TID 11/23/18 [History] Pregabalin [Lyrica] 100 mg PO TID 11/23/18 [History] Insulin Glargine,Hum.rec.anlog [Lantus Solostar] 25 unit SQ BID 12/15/18 [History] [place]-3/Dha/Epa/Fish Oil [Fish Oil 1,000 mg Softgel] 2 cap PO QPM 12/15/18 [History] Atorvastatin [Lipitor] 40 mg PO HS 30 Days #30 tablet 12/29/18 [Rx] Carvedilol [Coreg] 6.25 mg PO BID 01/31/19 [History] Allergy/AdvReac Type Severity Reaction Status Date / Time hydrocodone [From [place]] Allergy Intermediate Hives Verified 12/14/18 20:29 lanolin AdvReac Swelling Verified 12/14/18 20:29 [From Lacri-Lube S[employer] of the Eye mineral oil AdvReac Swelling Verified 12/14/18 20:29 [From Lacri-Lube S[employer] of the Eye petrolatum,white AdvReac Swelling Verified 12/14/18 20:29 [From Lacri-Lube S[employer] of the Eye ROS unobtainable: due to endotracheal tube Palliative Care-Exam - Constitutional Vitals: Temp Pulse Resp BP Pulse Ox 101.5 F H 159 24 81/57 93 02/01/19 10:23 02/01/19 13:00 02/01/19 13:00 02/01/19 13:00 02/01/19 06:00 General appearance: Present: obese - Head Head Exam: Present: normal inspection, normocephalic - Respiratory Additional comments: Intubated. Scattered rhonchi throughout anterior chest - Cardiovascular Cardiovascular exam: Present: irregular rhythm, tachycardia - GI/Abdominal Exam GI/Abdominal exam: Present: diminished bowel sounds, soft - Extremities Exam Additional comments: Generalized edema. Lower extremities with dry scaly skin. Appear to have few scattered old healing ulcers to lower extremities. Feet calloused - Neurological Exam Additional comments: Sedated on vent. Does not follow commands at this time - Skin Skin exam: Present: dry, warm Internal Medicine - CN: Reslt - Labs CBC & Chem 7: 02/01/19 05:06 02/01/19 02:25 Labs: Short CBC 01/31/19 02/01/19 Range/Units 19:23 05:06 WBC 17.1 H 19.4 H (4.3-11.1) K/mcL Hgb 15.5 15.2 (12.9-16.9) g/dL Hct 49.3 49.0 (37.5-50.1) % Plt Count 72 L 77 L (140-400) K/mcL Neutrophils # 14.8 H 17.5 H (1.6-8.9) K/mcL BMP 01/31/19 02/01/19 19:23 02:25 Sodium 137 134 L Potassium 5.3 H 5.2 H Chloride 91 L 94 L Carbon Dioxide 21 L 21 L BUN 54 H 59 H Creatinine 9.55 H 9.38 H Glucose 181 H 244 H Calcium 10.4 H 9.2 Cardiac Enzymes 01/31/19 02/01/19 Range/Units 19:23 02:25 Troponin I 0.13 H* 0.12 H* (< 0.04) ng/mL Liver Function 01/31/19 02/01/19 Range/Units 19:23 02:25 Total Bilirubin 1.3 H 1.3 H (0.3-1.0) mg/dL Direct Bilirubin 0.5 H (0.0-0.2) mg/dL AST 33 36 (13-39) Units/L ALT 12 13 (7-52) Units/L Alkaline Phosphatase 223 H 188 H (34-104) Units/L Albumin 4.1 3.5 (3.5-5.7) g/dL - ABG Interpretation ABG results: ABG ABG pH 7.29 pH Units (7.32-7.45) L 02/01/19 08:47 ABG pCO2 51 mmHg (35-45) H 02/01/19 08:47 ABG pO2 72 mmHg (85-104) L 02/01/19 08:47 ABG O2 Saturation 92 % (95-98) L 02/01/19 08:47 PT/INR, D-dimer PT 21.2 Seconds (9.4-12.1) H 02/01/19 05:06 - Impressions Impressions Chest X-Ray 01/31/19 19:38 IMPRESSION: No acute process. Stable cardiomegaly D/ / Hiram Davila MD / Hiram Davila MD Interpreting Provider: Hiram Davila MD Ankle X-Ray 01/31/19 22:16 IMPRESSION: Advanced neuropathic arthropathy of the midfoot with bony fragmentation, debris and dislocations. Findings are similar to the prior study. D/ / Janet Rondon Cha, MD / Jante Rondon Cha, MD Interpreting Provider: Janet Rondon Cha, MD Abdomen/Pelvis CT 01/31/19 22:53 IMPRESSION: Mild stranding of fat around the pancreas which could reflect acute pancreatitis. Correlate with lipase and amylase levels. Mild thickening of both adrenal glands with mild surrounding inflammatory change, possibly reflecting adrenalitis. Diverticulosis coli, without evidence of diverticulitis or colitis. Cardiomegaly and trace bilateral pleural effusions. Absent right kidney and evidence of renal osteodystrophy. D/ / Oscar Landaverde MD / Oscar Landaverde MD Interpreting Provider: Oscar Landaverde MD Head CT 01/31/19 22:53 IMPRESSION: No acute intracranial abnormality. D/ / Igor Abdi MD / Igor Abdi MD Interpreting Provider: Igor Abdi MD Chest X-Ray 01/31/19 23:38 IMPRESSION: Cardiomegaly with suspected edema. D/ / Janet Rondon Cha, MD / Janet Rondon Cha, MD Interpreting Provider: Janet Rondon Cha, MD X-Ray 02/01/19 12:52 IMPRESSION: Vascular access catheter placements. D/ / 02/01/2019 13:22:44 Benson Ronquillo MD / mitchell Interpreting Provider: Benson Ronquillo MD Consult Discharge Plan - Plan Referrals: NONE,PCP [Primary Care Provider] - Palliative Quality Palliative Quality: Screen for Code Status: NA (awaiting discussion with POA), Screen for Goals of Care: NA, Screen for Pain: Yes, If Pain Regimen Started, Initiate Bowel Regimen: NA, Screen for Nausea/Vomitting: NA Code Status: 02/01/19 00:46 Resuscitation Status: Active [RES] Routine Comment: Resuscitation Status: Full Code
[2019-02-01 14:42] LABS: Hepatitis B Surface Antigen Nonreactive (Nonreactive)
--- NOTE | 2019-02-01 15:25 | Internal Med Progress Note ---
Hospitalist Progress Note - Encounter Date of Encounter: 02/01/19 Time of Encounter: 15:13 - Subjective Interval History: Hospitalist ICU Note, please see my colleague's note from earlier this am: This is an extremely complicated 48-year-old -[place] male with multiple medical problems including noncompliance, end-stage renal disease on hemod ialysis on Wednesday, atrial fibrillation on , chronic systolic CHF, diabetes mellitus, hypertension, hyperlipidemia, marijuana abuse. Patient was found disheveled, at home, covered in feces, with altered mental status. He was brought to the emergency room where he was noted to be hypotensive, with A. fib with RVR. Electrocardioversion was attempted twice, without success. Patient was subsequently intubated. He had a central line placed in his right groin, as well as an arterial line. He was given aggressive IV fluids per sepsis protocol, then started on vasopressor therapy and admitted to our intensive care unit. As the patient is currently intubated and sedated. He is on epinephrine as well as phenylephrine. He remains on broad-spectrum antibiotics with Zosyn and vancomycin. Of note 202 blood cultures are growing out gram-positive cocci. With regards to his atrial fibrillation he remains on an amiodarone drip, as well as IV digoxin. Cardiology is following as well as nephrology. Patient had a temporary dialysis catheter placed this afternoon. Does have a left arm AV fistula which is nonfunctional. CRRT is planned this afternoon. Patient is also noted to have an elevated CK, currently 1390, likely related to being down underground for none known duration of time. Patient is currently intubated and sedated and unable to provide any review of systems. - Exam Vitals: Temp Pulse Resp BP Pulse Ox 101.5 F H 142 24 87/61 96 02/01/19 10:23 02/01/19 15:00 02/01/19 15:00 02/01/19 15:00 02/01/19 15:00 Exam: General: intubated, sedated, appears comfortable HEENT: head normocephalic/atraumatic, pupils equally round and with sluggish reaction to light, sclera anicteric Neck: Supple, no lymphadenopathy Cardio: Tachycardic, no murmurs, +S1/S2 Pulm: Coarse breath sounds bilaterally, on mechanical ventilation, equal chest rise Abdomen: Soft, distended with fluid wave,+ bs Extremities: 3+ pitting edema BLE extending above chilel, no cyanosis, Neuro: unable to fully assess neuro status due to intubation and sedation MSK: no joint swelling or joint erythema, AV fistulae of left forearm noted Skin: very dry, chronic venous stasis discoloration, intact. Patient has a half-dollar ulcer, scabbed over on plantar aspect of left foot. Both feet are edematous with severe chronic venous stasis changes. Patient has AV fistula site on his left anterior forearm without a palpable thrill, it appears mildly indurated there some scabbing over it Psych: unable to assess - Summary of Assessment and Plan Summary of Assessment and Plan: Septic shock -Suspect due to MRSA bacteremia -Continue broad-spectrum antibiotics however given potential other sources of infection -Patient is currently taking #1 Zosyn, vancomycin -Norepi, Kee for hypotension -?component of cardiogenic shock, defer to cardiology if Milrinone would benefit MRSA bacteremia -Multiple potential sources -Patient has an ulcer on the plantar aspect of his left foot, also multiple skin wounds -His AV fistula is nonfunctional and somewhat indurated, this is also a potential source, will check an ultrasound -? History of IV drug abuse -? Due to poor dentition -Echocardiogram ordered, although ultimately will likely need a transesophageal echocardiogram -Patient did receive vancomycin in the emergency room, this will likely be in his system for at least 48 hours, pharmacy consultation for further dosing -Repeat blood cultures at 24 hours Afib w RVR -Early on amiodarone, IV digoxin, failed cardioversion 2 -Cardiology following -was on NOAC at home Nonishcemic Cardiomyopathy, chronic systolic CHF -EF 20% -cardiology following Altered Mental status -Multifactorial likely due to sepsis,? Cerebral hypoperfusion -CT scan showed no evidence of acute stroke. No obvious seizure activity noted. -No new level is normal, PCO2 is not significantly elevated -Continue to closely monitor -check drug screen End-stage renal disease -CRRT as I discussed with Dr. Joaquin today -Avoid nephrotoxins as best able, monitor electrolytes Hyperkalemia, hyperphosphatemia -CRRT should help correct Mild rhabdomyolysis -Continue to monitor CK -CK is not markedly elevated on not convinced this is significantly contributing to his current illness however we will monitor levels Polysubstance drug abuse Morbid Obesity Chronic venous stasis DVT prophylaxis -subQ heparin - Time Spent with Patient Total time spent is greater than 50% in coordination of care (as documented) at patient's floor/unit and/or counseling patient: Greater than 35 minutes Internal Medicine: Result - Labs CBC & Chem 7: 02/01/19 05:06 02/01/19 02:25 Labs: Short CBC 01/31/19 02/01/19 Range/Units 19:23 05:06 WBC 17.1 H 19.4 H (4.3-11.1) K/mcL Hgb 15.5 15.2 (12.9-16.9) g/dL Hct 49.3 49.0 (37.5-50.1) % Plt Count 72 L 77 L (140-400) K/mcL Neutrophils # 14.8 H 17.5 H (1.6-8.9) K/mcL BMP 01/31/19 02/01/19 19:23 02:25 Sodium 137 134 L Potassium 5.3 H 5.2 H Chloride 91 L 94 L Carbon Dioxide 21 L 21 L BUN 54 H 59 H Creatinine 9.55 H 9.38 H Glucose 181 H 244 H Calcium 10.4 H 9.2 Cardiac Enzymes 01/31/19 02/01/19 Range/Units 19:23 02:25 Troponin I 0.13 H* 0.12 H* (< 0.04) ng/mL Liver Function 01/31/19 02/01/19 Range/Units 19:23 02:25 Total Bilirubin 1.3 H 1.3 H (0.3-1.0) mg/dL Direct Bilirubin 0.5 H (0.0-0.2) mg/dL AST 33 36 (13-39) Units/L ALT 12 13 (7-52) Units/L Alkaline Phosphatase 223 H 188 H (34-104) Units/L Albumin 4.1 3.5 (3.5-5.7) g/dL - ABG Interpretation ABG results: ABG ABG pH 7.29 pH Units (7.32-7.45) L 02/01/19 08:47 ABG pCO2 51 mmHg (35-45) H 02/01/19 08:47 ABG pO2 72 mmHg (85-104) L 02/01/19 08:47 ABG O2 Saturation 92 % (95-98) L 02/01/19 08:47 PT/INR, D-dimer PT 21.2 Seconds (9.4-12.1) H 02/01/19 05:06 - Impressions Impressions Chest X-Ray 01/31/19 19:38 IMPRESSION: No acute process. Stable cardiomegaly D/ / Hiram Davila MD / Hiram Davila MD Interpreting Provider: Hiram Davila MD Ankle X-Ray 01/31/19 22:16 IMPRESSION: Advanced neuropathic arthropathy of the midfoot with bony fragmentation, debris and dislocations. Findings are similar to the prior study. D/ / Janet Rondon Cha, MD / Janet Rondon Cha, MD Interpreting Provider: Janet Rondon Cha, MD Abdomen/Pelvis CT 01/31/19 22:53 IMPRESSION: Mild stranding of fat around the pancreas which could reflect acute pancreatitis. Correlate with lipase and amylase levels. Mild thickening of both adrenal glands with mild surrounding inflammatory change, possibly reflecting adrenalitis. Diverticulosis coli, without evidence of diverticulitis or colitis. Cardiomegaly and trace bilateral pleural effusions. Absent right kidney and evidence of renal osteodystrophy. D/ / Oscar Landaverde MD / Oscar Landaverde MD Interpreting Provider: Oscar Landaverde MD Head CT 01/31/19 22:53 IMPRESSION: No acute intracranial abnormality. D/ / Igor Abdi MD / Igor Abdi MD Interpreting Provider: Igor Abdi MD Chest X-Ray 01/31/19 23:38 IMPRESSION: Cardiomegaly with suspected edema. D/ / Janet Rondon Cha, MD / Janet Rondon Cha, MD Interpreting Provider: Janet Rondon Cha, MD X-Ray 02/01/19 12:52 IMPRESSION: Vascular access catheter placements. D/ / 02/01/2019 13:22:44 Benson Ronquillo MD / mitchell Interpreting Provider: Benson Ronquillo MD Guidance Ultrasound 02/01/19 14:47 IMPRESSION: 1. Right common femoral vein temporary dialysis catheter placement as discussed above. D/ / Chacorta Lopez MD / Chacorta Lopez MD Interpreting Provider: Chacorta Lopez MD Insertion Non-Tunneled Catheter 02/01/19 14:47 IMPRESSION: 1. Right common femoral vein temporary dialysis catheter placement as discussed above. D/ / Chacorta Lopez MD / Chacorta Lopez MD Interpreting Provider: Chacorta Lopez MD Consult Discharge Plan - Plan Referrals: NONE,PCP [Primary Care Provider] -
[2019-02-01] MEDS ORDERED: 0.9 % Sodium Chloride 1,000 ML PRIME PRN (15:30)
[2019-02-01] MEDS: 0.9 % Sodium Chloride 1,000 ML PRIME SCH ×2 (15:31→15:32)
[2019-02-01 15:35] LABS: VBG Ionized Calcium 1.07 mmol/L (1.15-1.35)
[2019-02-01] MEDS: PrismaSATE BGK 4/2.5 5,000 ML CRRT SCH ×4 (15:35→18:35)
[2019-02-01] MEDS: Vasopressin 40 UNIT in D5% in Water 100 ML IVC SCH (15:59)
[2019-02-01] MEDS ORDERED: Acetaminophen 325 MG TABLET PO PRN (16:14)
[2019-02-01] MEDS: FentaNYL (PF) 1,000 MCG in 0.9 % Sodium Chloride 80 ML IVC SCH ×2 (16:34→23:02)
[2019-02-01 17:42] LABS: VBG Base Excess -5 mEq/L; VBG Chloride 106 mEq/L (98-107); VBG Glucose 141 mg/dl (65-95); VBG HCO3 19 mEq/L (21-27); VBG Oxygen Saturation 100 %; VBG PCO2 32 mmHg (41-51); VBG PH 7.38 pH Units (7.32-7.42); VBG PO2 209 mmHg (25-50); VBG Total CO2 20 mEq/L
[2019-02-01 20:22] LABS: VBG Ionized Calcium 1.03 mmol/L (1.15-1.35)
[2019-02-01] MEDS: Piperacillin/Tazobactam 3.375 GM in 0.9 % Sodium Chloride Mini Bag 100 ML IVPB SCH (20:41)
[2019-02-01] MEDS: *HR* Heparin 5,000 UNIT/ML VIAL SQ SCH (20:42)
[2019-02-01 22:06] LABS: VBG Ionized Calcium 1.08 mmol/L (1.15-1.35)
[2019-02-02 00:18] LABS: VBG Ionized Calcium 1.14 mmol/L (1.15-1.35)
[2019-02-02] MEDS: PrismaSATE BGK 4/2.5 5,000 ML CRRT SCH ×10 (00:18→20:45)
[2019-02-02 01:29] LABS: ABG Base Excess -3 mEq/L (-2 to 3); ABG HCO3 24 mEq/L (21-27); ABG Oxygen Saturation 96 % (95-98); ABG PCO2 51 mmHg (35-45); ABG PH 7.28 pH Units (7.32-7.45); ABG PO2 91 mmHg (85-104); ABG TCO2 26 mEq/L (20-26); Blood Gas Modality VC; Blood Gas PEEP 5 cm H2O; Blood Gas VT 500 cc
[2019-02-02] MEDS: Amiodarone Premix 360 MG/200 ML BAG IVC SCH ×3 (01:58→23:18)
[2019-02-02] MEDS: Phenylephrine 50 MG in 0.9 % Sodium Chloride 250 ML IVC SCH ×5 (03:08→21:15)
[2019-02-02] MEDS: Insulin LISPRO 300 UNITS/3 ML VIAL SQ SCH ×6 (03:20→23:28)
[2019-02-02] MEDS: Artificial Tears SOLN 15 ML BOTTLE BOTH EYES SCH ×6 (03:20→23:28)
[2019-02-02 03:28] LABS: Eosinophils % 0.1 %; White Blood Count 14.9 K/mcL (4.3-11.1)
[2019-02-02 03:29] LABS: Basophils % 0.3 %; Hematocrit 48.8 % (37.5-50.1); Immature Granulocytes % 1.2 % (0-4); Immature Platelets 16.2 % (1.1-6.1); Lymphocytes # 0.5 K/mcL (0.6-4.6); Lymphocytes % 3.6 %; Mean Corpuscular HGB Conc 30.7 g/dL (31.6-35.5); Mean Corpuscular Hemoglobin 26.9 pg (28.0-33.3); Mean Corpuscular Volume 87.6 fL (83.0-100.0); Monocytes # 1.3 K/mcL (0.0-1.3); Monocytes % 8.4 %; Neutrophils # 12.9 K/mcL (1.6-8.9); Red Blood Count 5.57 M/mcL (4.19-5.50); Segmented Neutrophils % 86.4 %
[2019-02-02 03:31] LABS: Platelet Count 68 K/mcL (140-400)
[2019-02-02 03:34] LABS: INR 1.8; Prothrombin Time 20.9 Seconds (9.4-12.1)
[2019-02-02 03:46] LABS: Calcium 10.3 mg/dL (8.6-10.3); Magnesium 2.1 mg/dL (1.6-2.6); Phosphorous 5.6 mg/dL (2.7-4.5); Potassium 4.3 mEq/L (3.5-5.1)
[2019-02-02] MEDS: Piperacillin/Tazobactam 3.375 GM in 0.9 % Sodium Chloride Mini Bag 100 ML IVPB SCH ×3 (04:11→19:53)
[2019-02-02] MEDS: *HR* Heparin 5,000 UNIT/ML VIAL SQ SCH (04:16)
[2019-02-02] MEDS: 0.9 % Sodium Chloride 1,000 ML PRIME SCH ×2 (04:39→04:40)
[2019-02-02 05:02] LABS: ABG Base Excess -5 mEq/L (-2 to 3); ABG HCO3 24 mEq/L (21-27); ABG Oxygen Saturation 91 % (95-98); ABG PCO2 54 mmHg (35-45); ABG PH 7.24 pH Units (7.32-7.45); ABG PO2 73 mmHg (85-104); ABG TCO2 25 mEq/L (20-26); Blood Gas Modality VC; Blood Gas PEEP 5 cm H2O; Blood Gas VT 500 cc
[2019-02-02 05:49] LABS: VBG Ionized Calcium 0.86 mmol/L (1.15-1.35)
[2019-02-02] MEDS: FentaNYL (PF) 1,000 MCG in 0.9 % Sodium Chloride 80 ML IVC SCH ×4 (06:09→21:54)
[2019-02-02 06:29] LABS: VBG Ionized Calcium 1.19 mmol/L (1.15-1.35)
--- NOTE | 2019-02-02 06:42 | Pulmonology Progress Note ---
<MartinTono L - Last Filed: 02/02/19 13:44> Date of Encounter: 02/02/19 Time of Encounter: 06:41 Assessment and Plan (1) Shock Current Visit: Yes Status: Acute Shock, hemodynamic instability - Cardiogenic vs septic - Afib, no longer in RVR - Hypotension requiring three pressors, phenylephrine, norepinephrine, and vasopressin - Blood cultures growing MRSA - Vanc and zosyn day 2 - Elevated WBC - Lactate 1.4>>2.0 - ABG pH 7.24 - Continue full vent support - Cardiology consulted - Echo: Severe LV dysfunction. LVEF 20-25% - Nephrology, Continuing CRRT - Consider QUIQUE for MRSA bacteremia - Random cortisol 40.1 (2) Bacterial endocarditis Current Visit: Yes Status: Acute Bacterial endocarditis - Initial and repeat blood cultures positive for gram positive cocci - MRSA gene positive - TTE inadequate for endocarditis - QUIQUE ordered - Continuing vanc Qualifiers: Chronicity: acute Qualified Code(s): I33.0 - Acute and subacute infective endocarditis (3) Cellulitis in diabetic foot Current Visit: Yes Status: Acute Foot cellulitis - Suspected BL foot cellulitis - BL LE edema - Ulcer on L foot - Possible source for MRSA bacteremia - Podiatry consulted (4) Atrial fibrillation with RVR Current Visit: Yes Status: Acute Afib with RVR - History of Afib - Refractory to two electric cardioversions in the ED - On eliquis at home - Anticoagulation held - Cardiology consulted - Amio drip started overnight, continuing - No longer in RVR (5) Diabetes mellitus Current Visit: No Status: Chronic Hx of DM - Accuchecks q4h - High-dose corrective insulin - A1C 12.2% on 12/15/18 Qualifiers: Diabetes mellitus type: type 2 Diabetes mellitus meterman insulin use: unspecified meterman insulin use status Diabetes mellitus complication stat us: with kidney complications Diabetes mellitus complication detail: with chronic kidney disease Chronic kidney disease stage: on chronic dialysis Qualified Code(s): E11.22 - Type 2 diabetes mellitus with diabetic chronic kidney disease; N18.6 - End stage renal disease; Z99.2 - Dependence on renal dialysis (6) Elevated troponin Current Visit: Yes Status: Acute Elevated troponin - 0.13>>0.12 - Cardiology: Suspected demand ischemia in the setting of sepsis/shock/afib - Echo: severe LV dysfunction (7) Encephalopathy acute Current Visit: No Status: Resolved Acute encephalopathy - Likely secondary to shock and metabolic disturbances - Continue CRRT - Currently sedated on versed (8) End stage renal disease on dialysis Current Visit: Yes Status: Chronic ESRD - Nephrology consulted - CRRT Began on 02/02/19, continuing - Temporary dialysis catheter in R groin via IR (9) Nonischemic cardiomyopathy Current Visit: Yes Status: Chronic Nonischemic Cardiomyopathy - Cardiology consulted - Monitor I&Os and weight - Echo as above - EF 20% NICMP on previous echo (10) Rhabdomyolysis Current Visit: Yes Status: Acute Rhabdomyolysis Qualifiers: Rhabdomyolysis type: non-traumatic Qualified Code(s): M62.82 - Rhabdomyolysis (11) Tobacco abuse Current Visit: No Status: Chronic Nicotine patch (12) DVT prophylaxis Current Visit: No Status: Acute Sub Q heparin Subjective Interval history: Patient seen and examined. He did have some O2 desaturation overnight, chest x- ray was obtained and patient was placed on 80% FiO2. Heart rate is now in the 80s, blood pressure is holding stable with map 70s on 3 pressors. CRRT continues, large amounts fluid removed. Afebrile. Patient had 2 brown watery bowel movements overnight. Objective PUL Vital signs: Last Vital Signs Temp 97.4 F L 02/02/19 03:00 Pulse 92 02/02/19 06:00 Resp 24 02/02/19 06:00 BP 79/61 02/02/19 06:00 Pulse Ox 96 02/02/19 06:00 Gen: Vitals noted. Hypotensive on vasopressors. Afib. Intubated and sedated Eyes: anicteric sclerae, moist conjunctivae; Pupils 4mm, round, equal and minimally reactive to light HENT: Atraumatic, normocephalic; oropharynx clear with moist mucous membranes and no mucosal ulcerations Neck: Trachea midline; supple, no thyromegaly or lymphadenopathy Cardiac: Heart sounds difficult to auscultate due to body habitus. Peripheral pulses weak. Pulmonary: Coarse mechanical breath sounds BL, no rales or rhonchi, equal chest expansion Abdomen: soft, full, non-distended, no rigidity. No masses or hepatosplenomegaly MSK: ROM intact, no joint swelling noted Extremities: SLightly improved BL lower extremity edema. Dry scaly skin on feet/ankles. R foot: swollen more than left. No noticeable lesions or ulcers. L foot: 2-3 cm round, scabbed, ulcer on bottom of foot. Skin: Warm and dry. Dry scaly skin on BL LEs Neuro: No gag or corneal reflex. Unresponsive to external stimuli. Agitation when sedation is lowered Analgesia: fentanyl gtt Sedation: versed gtt SBT: none Glycemic control: High-dose corrective insulin Bowel regimen:none Activity: none Fluids: MIVF Electrolytes: replete as necessary Nutrition: None, currently on pressors GI ppx: PPI Lines: ET, OG, winter, R fem CVC and temp dialysis catheter Consults: pulm, cardio, Nephrology, Palliative, Podiatry Code: Full code Dispo: ICU Ventilator Settings Ventilator Settings: Ventilator Settings, Last 8 Hours Ventilator Tidal Volume 500 Setting Ventilator Tidal Volume 500 Setting Ventilator Tidal Volume 500 Setting Ventilator Tidal Volume 500 Setting Ventilator Tidal Volume 500 Setting Ventilator Tidal Volume 500 Setting Ventilator Tidal Volume 500 Setting Ventilator Tidal Volume 500 Setting Ventilator Tidal Volume 500 Setting Ventilator Tidal Volume 500 Setting Ventilator Tidal Volume 500 Setting Ventilator Tidal Volume 500 Setting Ventilator Tidal Volume 500 Setting Ventilator Tidal Volume 500 Setting Ventilator Respiratory Rate 24 Setting Ventilator Respiratory Rate 24 Setting Ventilator Respiratory Rate 24 Setting Ventilator Respiratory Rate 24 Setting Ventilator Respiratory Rate 24 Setting Ventilator Respiratory Rate 24 Setting Ventilator Respiratory Rate 24 Setting Ventilator Respiratory Rate 24 Setting Ventilator Respiratory Rate 24 Setting Ventilator Respiratory Rate 24 Setting Ventilator Respiratory Rate 24 Setting Ventilator Respiratory Rate 24 Setting Ventilator Respiratory Rate 24 Setting Ventilator Respiratory Rate 24 Setting Actual Respiratory Rate 24 Actual Respiratory Rate 24 Actual Respiratory Rate 24 Actual Respiratory Rate 24 Actual Respiratory Rate 24 Actual Respiratory Rate 24 Actual Respiratory Rate 24 Actual Respiratory Rate 24 Actual Respiratory Rate 24 Actual Respiratory Rate 24 Actual Respiratory Rate 24 Actual Respiratory Rate 24 Positive End Expiratory 5 Pressure Positive End Expiratory 5 Pressure Positive End Expiratory 5 Pressure Positive End Expiratory 5 Pressure Positive End Expiratory 5 Pressure Positive End Expiratory 5 Pressure Positive End Expiratory 5 Pressure Positive End Expiratory 5 Pressure Positive End Expiratory 5 Pressure Positive End Expiratory 5 Pressure Positive End Expiratory 5 Pressure Positive End Expiratory 5 Pressure Positive End Expiratory 5 Pressure Positive End Expiratory 5 Pressure Peak Inspiratory Airway 36 Pressure Peak Inspiratory Airway 36 Pressure Peak Inspiratory Airway 36 Pressure Peak Inspiratory Airway 36 Pressure Peak Inspiratory Airway 36 Pressure Peak Inspiratory Airway 36 Pressure Peak Inspiratory Airway 34 Pressure Peak Inspiratory Airway 36 Pressure Peak Inspiratory Airway 36 Pressure Peak Inspiratory Airway 36 Pressure Peak Inspiratory Airway 36 Pressure Peak Inspiratory Airway 36 Pressure Results - Laboratory Findings CBC and BMP: 02/02/19 11:05 02/02/19 03:15 ABG ABG pH 7.24 pH Units (7.32-7.45) L 02/02/19 04:58 ABG pCO2 54 mmHg (35-45) H 02/02/19 04:58 ABG pO2 73 mmHg (85-104) L 02/02/19 04:58 ABG O2 Saturation 91 % (95-98) L 02/02/19 04:58 PT/INR, D-dimer PT 20.9 Seconds (9.4-12.1) H 02/02/19 03:15 Abnormal lab findings: Abnormal lab results WBC 14.9 K/mcL (4.3-11.1) H 02/02/19 03:15 RBC 5.57 M/mcL (4.19-5.50) H 02/02/19 03:15 MCH 26.9 pg (28.0-33.3) L 02/02/19 03:15 MCHC 30.7 g/dL (31.6-35.5) L 02/02/19 03:15 RDW 19.0 % (11.5-14.5) H 02/02/19 03:15 Plt Count 68 K/mcL (140-400) L 02/02/19 03:15 Neutrophils # 12.9 K/mcL (1.6-8.9) H 02/02/19 03:15 Lymphocytes # 0.5 K/mcL (0.6-4.6) L 02/02/19 03:15 Monocytes # 1.6 K/mcL (0.0-1.3) H 01/31/19 19:23 Platelet Estimate Decreased (Normal) 01/31/19 19:23 Immature Plt Fraction 16.2 % (1.1-6.1) H 02/02/19 03:15 PT 20.9 Seconds (9.4-12.1) H 02/02/19 03:15 APTT 46.1 Seconds (26.0-36.0) H 02/01/19 05:06 ABG pH 7.24 pH Units (7.32-7.45) L 02/02/19 04:58 ABG pCO2 54 mmHg (35-45) H 02/02/19 04:58 ABG pO2 73 mmHg (85-104) L 02/02/19 04:58 ABG HCO3 29 mEq/L (21-27) H 01/31/19 22:13 ABG Total CO2 27 mEq/L (20-26) H 02/01/19 04:58 ABG O2 Saturation 91 % (95-98) L 02/02/19 04:58 ABG Base Excess -5 mEq/L (-2 to 3) L 02/02/19 04:58 VBG pCO2 32 mmHg (41-51) L 02/01/19 17:38 VBG pO2 209 mmHg (25-50) H 02/01/19 17:38 VBG HCO3 19 mEq/L (21-27) L 02/01/19 17:38 VBG Hematocrit 57.0 % (37.5-50.1) H 02/01/19 17:38 VBG Lactic Acid 3.7 mmol/L (0.5-2.2) H 02/01/19 17:38 Venous Sodium 134 mEq/L (135-145) L 02/01/19 17:38 Sodium 134 mEq/L (136-145) L 02/01/19 02:25 Potassium 5.2 mEq/L (3.5-5.1) H 02/01/19 02:25 Chloride 94 mEq/L (98-107) L 02/01/19 02:25 Carbon Dioxide 20 mEq/L (23-29) L 02/02/19 03:15 BUN 45 mg/dL (6-20) H 02/02/19 03:15 Creatinine 6.65 mg/dL (0.70-1.30) H 02/02/19 03:15 Est GFR ( Amer) 11 (> 60) L 02/02/19 03:15 Est GFR (Non-Af Amer) 9 (> 60) L 02/02/19 03:15 Glucose 120 mg/dL (70-105) H 02/02/19 03:15 Whole Bld Glucose 141 mg/dl (65-95) H 02/01/19 17:38 POC Glucose 119 mg/dL (70-99) H 02/01/19 19:35 Calculated Osmolality 303 (280-300) H 02/01/19 02:25 Calcium 10.4 mg/dL (8.6-10.3) H 01/31/19 19:23 Venous Ioniz Calcium 0.86 mmol/L (1.15-1.35) L 02/02/19 05:46 Phosphorus 5.6 mg/dL (2.7-4.5) H 02/02/19 03:15 Total Bilirubin 1.3 mg/dL (0.3-1.0) H 02/01/19 02:25 Direct Bilirubin 0.5 mg/dL (0.0-0.2) H 01/31/19 19:23 Alkaline Phosphatase 188 Units/L (34-104) H 02/01/19 02:25 Creatine Kinase 1390 Units/L (30-223) H 02/01/19 02:25 Troponin I 0.12 ng/mL (< 0.04) H* 02/01/19 02:25 Serum Total Protein 6.3 g/dL (6.4-8.9) L 02/01/19 02:25 Lipase 4 Units/L (11-82) L 02/01/19 02:25 Hep Bs Antibody < 3.10 mIU/mL (10.00-) L 02/01/19 13:25 Staph aureus (PCR) DETECTED (Not Detect) A 01/31/19 19:23 mecA-Methicil Res Gene DETECTED (Not Detect) A 01/31/19 19:23 - Microbiology Findings Microbiology Findings: Microbiology, Last 48 Hours 01/31/19 19:23 Blood Culture - Preliminary Peripheral Venipuncture Gram Positive Cocci 01/31/19 19:23 Blood Culture - Preliminary Peripheral Venipuncture Gram Positive Cocci - Clinical Findings Intake & Output: Intake & Output 02/01/19 02/01/19 02/02/19 15:59 23:59 07:59 Intake Total 1826.6 / 6410.4 1675.7 / 6410.4 1436.6 / 1436.6 Output Total 0 6 2140 / 2536 1903 / 1903 Balance 1826.6 / 3874.4 -464.3 / 3874.4 -466.4 / -466.4 Weight 127 kg 127 kg 128.6 kg Consult Discharge Plan - Plan Referrals: NONE,PCP [Primary Care Provider] - <Marbella Sam - Last Filed: 02/02/19 23:28> Date of Encounter: 02/02/19 Objective PUL Vital signs: Last Vital Signs Temp 98.4 F 02/02/19 20:00 Pulse 106 02/02/19 23:09 Resp 283 02/02/19 23:00 BP 63/43 02/02/19 23:00 Pulse Ox 96 02/02/19 23:00 Ventilator Settings Ventilator Settings: Ventilator Settings, Last 8 Hours Ventilator Tidal Volume 530 Setting Ventilator Tidal Volume 530 Setting Ventilator Tidal Volume 530 Setting Ventilator Tidal Volume 530 Setting Ventilator Tidal Volume 530 Setting Ventilator Tidal Volume 530 Setting Ventilator Tidal Volume 530 Setting Ventilator Tidal Volume 530 Setting Ventilator Tidal Volume 530 Setting Ventilator Tidal Volume 530 Setting Ventilator Tidal Volume 530 Setting Ventilator Tidal Volume 530 Setting Ventilator Respiratory Rate 28 Setting Ventilator Respiratory Rate 28 Setting Ventilator Respiratory Rate 28 Setting Ventilator Respiratory Rate 28 Setting Ventilator Respiratory Rate 28 Setting Ventilator Respiratory Rate 28 Setting Ventilator Respiratory Rate 28 Setting Ventilator Respiratory Rate 28 Setting Ventilator Respiratory Rate 28 Setting Ventilator Respiratory Rate 28 Setting Ventilator Respiratory Rate 28 Setting Ventilator Respiratory Rate 28 Setting Actual Respiratory Rate 30 Actual Respiratory Rate 30 Actual Respiratory Rate 29 Actual Respiratory Rate 28 Actual Respiratory Rate 30 Actual Respiratory Rate 28 Actual Respiratory Rate 28 Actual Respiratory Rate 30 Actual Respiratory Rate 30 Actual Respiratory Rate 28 Actual Respiratory Rate 28 Actual Respiratory Rate 28 Positive End Expiratory 8 Pressure Positive End Expiratory 8 Pressure Positive End Expiratory 8 Pressure Positive End Expiratory 8 Pressure Positive End Expiratory 8 Pressure Positive End Expiratory 8 Pressure Positive End Expiratory 8 Pressure Positive End Expiratory 8 Pressure Positive End Expiratory 8 Pressure Positive End Expiratory 8 Pressure Positive End Expiratory 8 Pressure Positive End Expiratory 8 Pressure Peak Inspiratory Airway 33 Pressure Peak Inspiratory Airway 33 Pressure Peak Inspiratory Airway 32 Pressure Peak Inspiratory Airway 33 Pressure Peak Inspiratory Airway 33 Pressure Peak Inspiratory Airway 32 Pressure Peak Inspiratory Airway 32 Pressure Peak Inspiratory Airway 33 Pressure Peak Inspiratory Airway 33 Pressure Peak Inspiratory Airway 33 Pressure Peak Inspiratory Airway 32 Pressure Peak Inspiratory Airway 34 Pressure Results - Laboratory Findings CBC and BMP: 02/02/19 11:05 02/02/19 03:15 ABG ABG pH 7.31 pH Units (7.32-7.45) L 02/02/19 11:16 ABG pCO2 44 mmHg (35-45) 02/02/19 11:16 ABG pO2 76 mmHg (85-104) L 02/02/19 11:16 ABG O2 Saturation 94 % (95-98) L 02/02/19 11:16 PT/INR, D-dimer PT 19.5 Seconds (9.4-12.1) H 02/02/19 11:05 Abnormal lab findings: Abnormal lab results WBC 14.2 K/mcL (4.3-11.1) H 02/02/19 11:05 RBC 5.57 M/mcL (4.19-5.50) H 02/02/19 03:15 MCH 27.2 pg (28.0-33.3) L 02/02/19 11:05 MCHC 31.0 g/dL (31.6-35.5) L 02/02/19 11:05 RDW 19.3 % (11.5-14.5) H 02/02/19 11:05 Plt Count 67 K/mcL (140-400) L 02/02/19 11:05 Neutrophils # 12.9 K/mcL (1.6-8.9) H 02/02/19 03:15 Lymphocytes # 0.5 K/mcL (0.6-4.6) L 02/02/19 03:15 Monocytes # 1.6 K/mcL (0.0-1.3) H 01/31/19 19:23 Platelet Estimate Decreased (Normal) L 01/31/19 19:23 Immature Plt Fraction 18.7 % (1.1-6.1) H 02/02/19 11:05 PT 19.5 Seconds (9.4-12.1) H 02/02/19 11:05 APTT 46.1 Seconds (26.0-36.0) H 02/01/19 05:06 Heparin Anti-Xa, Unfract 0.18 IU/mL (0.30-0.70) L 02/02/19 17:11 ABG pH 7.31 pH Units (7.32-7.45) L 02/02/19 11:16 ABG pCO2 54 mmHg (35-45) H 02/02/19 04:58 ABG pO2 76 mmHg (85-104) L 02/02/19 11:16 ABG HCO3 29 mEq/L (21-27) H 01/31/19 22:13 ABG Total CO2 27 mEq/L (20-26) H 02/01/19 04:58 ABG O2 Saturation 94 % (95-98) L 02/02/19 11:16 ABG Base Excess -5 mEq/L (-2 to 3) L 02/02/19 11:16 VBG pCO2 32 mmHg (41-51) L 02/01/19 17:38 VBG pO2 209 mmHg (25-50) H 02/01/19 17:38 VBG HCO3 19 mEq/L (21-27) L 02/01/19 17:38 VBG Hematocrit 57.0 % (37.5-50.1) H 02/01/19 17:38 VBG Lactic Acid 3.7 mmol/L (0.5-2.2) H 02/01/19 17:38 Venous Sodium 134 mEq/L (135-145) L 02/01/19 17:38 Sodium 134 mEq/L (136-145) L 02/01/19 02:25 Potassium 5.2 mEq/L (3.5-5.1) H 02/01/19 02:25 Chloride 94 mEq/L (98-107) L 02/01/19 02:25 Carbon Dioxide 20 mEq/L (23-29) L 02/02/19 03:15 BUN 45 mg/dL (6-20) H 02/02/19 03:15 Creatinine 6.65 mg/dL (0.70-1.30) H 02/02/19 03:15 Est GFR ( Amer) 11 (> 60) L 02/02/19 03:15 Est GFR (Non-Af Amer) 9 (> 60) L 02/02/19 03:15 Glucose 120 mg/dL (70-105) H 02/02/19 03:15 Whole Bld Glucose 141 mg/dl (65-95) H 02/01/19 17:38 POC Glucose 119 mg/dL (70-99) H 02/01/19 19:35 Calculated Osmolality 303 (280-300) H 02/01/19 02:25 Calcium 10.4 mg/dL (8.6-10.3) H 01/31/19 19:23 Venous Ioniz Calcium 0.86 mmol/L (1.15-1.35) L 02/02/19 05:46 Phosphorus 5.6 mg/dL (2.7-4.5) H 02/02/19 03:15 Total Bilirubin 1.3 mg/dL (0.3-1.0) H 02/01/19 02:25 Direct Bilirubin 0.5 mg/dL (0.0-0.2) H 01/31/19 19:23 Alkaline Phosphatase 188 Units/L (34-104) H 02/01/19 02:25 Creatine Kinase 1390 Units/L (30-223) H 02/01/19 02:25 Troponin I 0.12 ng/mL (< 0.04) H* 02/01/19 02:25 Serum Total Protein 6.3 g/dL (6.4-8.9) L 02/01/19 02:25 Lipase 4 Units/L (11-82) L 02/01/19 02:25 Hep Bs Antibody < 3.10 mIU/mL (10.00-) L 02/01/19 13:25 Staph aureus (PCR) DETECTED (Not Detect) A 01/31/19 19:23 mecA-Methicil Res Gene DETECTED (Not Detect) A 01/31/19 19:23 - Microbiology Findings Microbiology Findings: Microbiology, Last 48 Hours 02/01/19 22:36 Blood Culture - Preliminary Peripheral Venipuncture Gram Positive Cocci 02/01/19 22:36 Blood Culture - Preliminary Peripheral Venipuncture Gram Positive Cocci 01/31/19 19:23 Blood Culture - Preliminary Peripheral Venipuncture Gram Positive Cocci 01/31/19 19:23 Blood Culture - Preliminary Peripheral Venipuncture Gram Positive Cocci - Clinical Findings Intake & Output: Intake & Output 02/02/19 02/02/19 02/02/19 07:59 15:59 23:59 Intake Total 1611.6 / 4227.3 1574.0 / 4227.3 1041.7 / 4227.3 Output Total 2172 / 6276 1690 / 6276 2414 / 6276 Balance -560.4 / -2048.7 -116.0 / -2048.7 -1372.3 / -2048.7 Weight 128.6 kg 128.6 kg 128.6 kg - Attending Attestation Attending Attestation I saw and evaluated this patient and my medical decision-making was reviewed with the Resident Physician. I agree with the documented findings, disposition and treatment plan as described except to the extent set forth below. We independently had [id number] contact with the patient I spent 55 minutes of Critical Care time with this patient. It involved decision making of high complexity to assess, manipulate, and support vital organ system failure and/or to prevent further life threatening deterioration of the patient's condition. The time involved in the performance of separately reportable procedures was not counted toward critical care time. Patient seen and examined at bedside Labs, radiology, chart personally reviewed. Management was reviewed during multidisciplinary critical care rounds. FOLDER SEAMER: Patient has encephalopathy unable to assess with full neurological exam patient is sedated intubated and mechanical ventilated. Pulm: Patient V/Q mismatch is complicated by pneumonia and possible hydrostatic pulmonary edema as patient is a severer systolic congestive heart failure. Cannot do diuresis as patient is in significant septic shock complicated by systolic heart failure. Patient has acceptable oxygenation and ventilation. 02/02 issues acceptable oxygenation and ventilation to continue the low tidal volume strategy cannot diuresis fluid removal significantly. Patient still in septic shock Cards: Patient is most likely septic shock complicated by low cardiac output heart failure patient is on triple vasopressor therapy as patient is going on CVVH complicating the picture is atrial fibrillation with rapid ventricular rate not adequately controlled by cardioversion, amiodarone even on digoxin. Doubt that repeat cardioversion will be helpful. To get full echocardiogram to trend troponins. It was an acute coronary event patient will be have poor prognosis patient will not be a cardiac catheterization candidate 02/02 patient had this persistent MRSA bacteremia patient is in septic shock cannot get into the CT scan or CT chest abdomen and pelvis did a transesophageal echocardiogram which did not show any evidence of endocarditis. Once more stable we will send him for CT abdomen pelvis and CT chest. Most likely source would be pneumonia. FEN-GI: Advance diet as toleratted Renal: Labs and output were reviewed patient is on CVVH today ID: To cover with broad-spectrum antibiotics Heme/Onc: Endo: Glucose Monitored , started on stress dose steroid as patient has refractory shock Integ/MSK: Skin Care per routine ICU Nursing Protocol to prevent ulcers. Lines: All lines examined without evidence of infection : Dispo: Critically ill CODE: Full Code
[2019-02-02] MEDS: Chlorhexidine Rinse 15 ML MOUTHWASH MM SCH ×2 (07:17→19:53)
[2019-02-02] MEDS: Nicotine 21 MG PATCH.TD24 TD SCH (07:17)
[2019-02-02] MEDS: Pantoprazole 40 MG VIAL IVP SCH (07:17)
--- NOTE | 2019-02-02 09:31 | Nephrology Progress Note ---
Date of Encounter: 02/02/19 Time of Encounter: 09:29 - Assessment and Plan (1) End stage renal disease Current Visit: No Status: Chronic Patient on dialysis Wednesday schedule, but questionable whether patient was able to make Wednesday session. Due for dialysis today Currently requiring dual pressors in order to keep blood pressure stabilized preventing HD Line placed by IR -CRRT currently going -Overnight pt with 2L of fluid pulled off, but still positive 6L since admission -BUN/Web Database Developer of 45 and 6.65 (2) Hyperkalemia Current Visit: Yes Status: Resolved Potassium of 5.3 on admission Questionable if pt was able to make diaylsis appointment on Wednesday In setting of Rhabdomyolysis -K of 4.3 02/02 -CRRT therapy -Continue to monitor (3) Hyperphosphatemia Current Visit: No Status: Acute Phosphorus of 7.8 on admission -CRRT continued -P down to 5.6, improved -Continue to monitor (4) Rhabdomyolysis Current Visit: Yes Status: Acute Patient found down at home for unknown period of time CK of 1210 on admission up to 1390 Ionized Ca of 1.19 Phosphorus of 5.6 Potassium of 4.3 -Given IV hydration in ED -Continue to monitor P, K, and Ca -Currently requiring CRRT Qualifiers: Rhabdomyolysis type: non-traumatic Qualified Code(s): M62.82 - Rhabdomyolysis Subjective Interval history: Patient intubated and sedated Objective - Vital Signs Vital signs: Vital Signs Temp Pulse Resp BP Pulse Ox 02/02/19 09:17 24 82/62 97 02/02/19 09:00 87 24 81/61 97 02/02/19 08:00 96.1 F L 84 24 75/61 97 02/02/19 07:30 24 84/66 96 02/02/19 07:00 89 24 80/63 97 02/02/19 06:00 92 24 79/61 96 02/02/19 05:10 24 80/62 95 02/02/19 05:00 93 24 86/64 94 02/02/19 04:00 98 24 87/65 93 02/02/19 03:14 99 02/02/19 03:00 97.4 F L 96 24 85/63 98 02/02/19 02:51 24 84/61 98 02/02/19 02:00 104 24 82/60 91 09/26/19 01:00 113 24 89/60 96 02/02/19 00:55 24 94/63 96 02/02/19 00:00 108 24 86/58 96 02/01/19 23:19 24 93/65 96 02/01/19 23:13 124 02/01/19 23:00 94.4 F L 117 24 82/58 96 02/01/19 22:00 132 24 115/77 91 02/01/19 21:17 24 92/62 97 02/01/19 21:00 129 24 103/67 98 02/01/19 20:00 100.4 F H 137 24 90/58 97 02/01/19 19:42 132 02/01/19 19:26 24 97 02/01/19 19:00 147 24 86/56 97 02/01/19 18:00 100.3 F H 126 24 96/63 97 02/01/19 17:05 24 105/69 97 02/01/19 17:00 139 24 97/64 97 02/01/19 16:00 102.6 F H 148 24 91/61 97 02/01/19 15:40 24 67/47 96 02/01/19 15:00 142 24 87/61 96 02/01/19 14:00 142 24 83/64 02/01/19 13:36 24 92/59 97 02/01/19 13:00 159 24 81/57 02/01/19 12:00 145 24 74/50 02/01/19 11:05 24 85/58 96 02/01/19 10:23 101.5 F H 02/01/19 09:59 24 87/59 95 Intake and Output 02/01/19 02/02/19 02/02/19 23:59 07:59 15:59 Intake Total 1675.7 / 6410.4 1611.6 / 1867.6 256.0 / 1867.6 Output Total 2140 / 2536 2172 / 2609 437 / 2609 Balance -464.3 / 3874.4 -560.4 / -741.4 -181.0 / -741.4 Intake: IV Fluids 1675.7 / 6410.4 1611.6 / 1867.6 256.0 / 1867.6 Calcium Chloride 4,000 MG In 0. 384.4 / 470.2 521.7 / 560.7 39 / 560.7 9 % Sodium Chloride 1,000 ML @ 40 mls/hr CRRT CONT [facility] Rx#: [id number] PrismaSATE BGK 4/2.5 5,000 ML @ 0 / 0 0 / 0 0 / 0 1500 mls/hr CRRT CONT [facility] Rx#: [id number] Amiodarone Drip Premix 360mg/ 115.8 / 381.0 130.6 / 161.3 30.7 / 161.3 200mL 360 mg In 200 ml @ 0.5 MG /MIN 16.667 mls/hr IVC CONT [facility] Rx#:[id number] FentaNYL (PF) 1,000 MCG In 0.9 111.4 / 296.9 116.5 / 143.9 27.4 / 143.9 % Sodium Chloride 80 ML @ 50 MCG/HR 5 mls/hr IVC CONT [facility] Rx #:[id number] Versed 50 MG In 0.9 % Sodium 65.2 / 164.9 106.6 / 121.8 15.2 / 121.8 Chloride 90 ML @ 2 MG/HR 4 mls/ hr IVC CONT [facility] Rx#:[id number] Levophed 8 MG In 0.9 % Sodium 331.3 / 619.8 164.2 / 184.0 19.8 / 184.0 Chloride 250 ML @ 0.5 MCG/MIN 0 .968 mls/hr IVC CONT [facility] Rx#: [id number] Phenylephrine 50 MG In 0.9 % 338.4 / 846.0 375.1 / 452.1 77 / 452.1 Sodium Chloride 250 ML @ 100 MCG/MIN 30.6 mls/hr IVC CONT [facility] Rx#:[id number] Vasostrict 40 UNIT In Dextrose 29.2 / 33.5 35.0 / 43.8 8.8 / 43.8 5% 100 ML @ 0.03 UNIT/MIN 4.59 mls/hr IVC .[id number] [facility] Rx#: [id number] Calcium Gluconate 1gm/50mL 1 gm 50 / 50 In 50 ml @ 50 mls/hr IVPB Q1H PRN Rx#:[id number] Zosyn 3.375 GM In 0.9 % Sodium 161.9 / 200.0 38.1 / 200.0 Chloride (Mini-Bag +) 100 ML @ 25 mls/hr IVPB Q8H [facility] Rx#: [id number] Vancocin 1,000 MG In 0.9 % 250 / 250 Sodium Chloride 250 ML @ 166. 667 mls/hr IVPB ONCE ONE Rx#: [id number] 0.9 % Sodium Chloride 1,000 ML 0 / 0 @ As Directed PRIME .Q0M [facility] Rx #:[id number] Oral 0 / 0 0 / 0 Output: Rectal Tube 0 / 0 Catheter 0 / 0 0 / 0 0 / 0 Gastric Drainage 250 / 250 50 / 100 50 / 100 Fluid Removed by Prismaflex 1890 / 2286 2122 / 2509 387 / 2509 Other: Stool Size Moderate Stool Consistency liquid Stool Color Brown # Bowel Movements 1 Weight 127 kg 128.6 kg 128.6 kg Blood Glucose* 93 98 132 Patient Weight 02/02/19 23:59 Weight 128.6 kg - General Appearance Exam: General appearance: obese, chronically ill, intubated Additional Comments: ET tube is in place. No evidence of scleral icterus. Neck: no thyromegaly Additional Comments: No adenopathy Respiratory: clear Cardiology: edema, irregular rhythm. HR controlled around 80 Gastrointestinal: normoactive bowel sounds, obese Integumentary: chronic venous stasis Additional Comments: Left foot with venous-appearing ulceration on the plantar surface. Bilateral lower extremities with extensive chronic venous stasis changes. 2+ pitting edema. Additional Comments: Unable to obtain as patient is currently sedated and intubated. Additional Comments: Chronic venous stasis changes to bilateral lower extremities with darkening of the skin and hardening. Warmth over the dorsal aspect of the right foot. Left arm with graft in place but no evidence of thrill and warmth over the overlying skin. Additional Comments: - Lab 02/02/19 11:05 02/02/19 03:15 Most recent lab results 02/02/19 02/02/19 02/02/19 01:25 03:15 04:58 ABG pH 7.28 L 7.24 L ABG pCO2 51 H 54 H ABG pO2 91 73 L ABG HCO3 24 24 ABG O2 Saturation 96 91 L Calcium 10.3 Phosphorus 5.6 H Magnesium 2.1 Consult Discharge Plan - Plan Referrals: NONE,PCP [Primary Care Provider] -
[2019-02-02] MEDS ORDERED: *HR* Heparin 5,000 UNIT/ML VIAL IVP PRN ×2 (10:52)
[2019-02-02] MEDS: Norepinephrine 8 MG in 0.9 % Sodium Chloride 250 ML IVC SCH (11:10)
[2019-02-02 11:19] LABS: ABG Base Excess -5 mEq/L (-2 to 3); ABG HCO3 22 mEq/L (21-27); ABG Oxygen Saturation 94 % (95-98); ABG PCO2 44 mmHg (35-45); ABG PH 7.31 pH Units (7.32-7.45); ABG PO2 76 mmHg (85-104); ABG TCO2 23 mEq/L (20-26); Blood Gas PEEP 8 cm H2O; Blood Gas VT 530 cc
[2019-02-02 11:29] LABS: Mean Corpuscular Hemoglobin 27.2 pg (28.0-33.3)
[2019-02-02 11:31] LABS: Hematocrit 48.1 % (37.5-50.1); Hemoglobin 14.9 g/dL (12.9-16.9); Immature Platelets 18.7 % (1.1-6.1); Mean Corpuscular Volume 87.8 fL (83.0-100.0); Red Blood Count 5.48 M/mcL (4.19-5.50); Red Cell Distribution Width 19.3 % (11.5-14.5); White Blood Count 14.2 K/mcL (4.3-11.1)
[2019-02-02 11:33] LABS: Platelet Count 67 K/mcL (140-400)
[2019-02-02] MEDS: Heparin 25,000 UNIT/250 ML D5W 25,000 UNIT/250 ML IV.SOLN IVC SCH (11:33)
[2019-02-02] MEDS: Ipratropium/Albuterol Neb 3 ML IH SCH ×3 (11:38→21:29)
[2019-02-02 11:48] LABS: Heparin anti-factor XA UFH 0.05 IU/mL (0.30-0.70); INR 1.7; Prothrombin Time 19.5 Seconds (9.4-12.1)
[2019-02-02] MEDS: Vasopressin 40 UNIT in D5% in Water 100 ML IVC SCH (12:33)
--- NOTE | 2019-02-02 12:57 | Palliative Progress Note ---
Date of Encounter: 02/02/19 Time of Encounter: 12:55 - Assessment and plan (1) Advanced care planning/counseling discussion Current Visit: Yes Status: Acute Assessment and plan: Patient's son, Yogesh, mother, and sister present here at hospital. Meeting with Dr. Sam, patient's primary nurse Bill, and myself regarding current clinical status and goals of care. They are aware that QUIQUE will be performed, and if vegitations found, will need transfer to [facility]. Addressed current POA that states that Richar is medical POA. Yogesh stated that patient revised this in 2018 and that he is now on his power of attorney general. Expressed that he needs to bring this in as soon as possible, as decision may need to be made. He verbalized understanding and will bring in today. Will continue to follow clinical course. (2) Palliative care encounter Current Visit: Yes Status: Acute (3) Nonischemic cardiomyopathy Current Visit: Yes Status: Chronic (4) End stage renal disease on dialysis Current Visit: Yes Status: Chronic Assessment and plan: Nephrology continues to follow (5) Acute respiratory failure Current Visit: Yes Status: Acute Qualifiers: Respiratory failure complication: unspecified whether with hypoxia or hypercapnia Qualified Code(s): J96.00 - Acute respiratory failure, unspecified whether with hypoxia or hypercapnia (6) Shock Current Visit: Yes Status: Acute Assessment and plan: Continues treatment for septic shock. Remains on IV atb therapy, pressors and vent support - Time Spent With Patient Total time spent is greater than 50% in coordination of care (as documented) at patient's floor/unit and/or counseling patient: 25 - 35 minutes - Subjective Interval history: Patient remains sedated on vent with 2 vasopressors. Remains on Lilly. Did have hypoxic episodes during the night and FI02 had to be increased. - Constitutional Vitals: Abnormal lab results WBC 14.2 K/mcL (4.3-11.1) H 02/02/19 11:05 RBC 5.57 M/mcL (4.19-5.50) H 02/02/19 03:15 MCH 27.2 pg (28.0-33.3) L 02/02/19 11:05 MCHC 31.0 g/dL (31.6-35.5) L 02/02/19 11:05 RDW 19.3 % (11.5-14.5) H 02/02/19 11:05 Plt Count 67 K/mcL (140-400) L 02/02/19 11:05 Neutrophils # 12.9 K/mcL (1.6-8.9) H 02/02/19 03:15 Lymphocytes # 0.5 K/mcL (0.6-4.6) L 02/02/19 03:15 Monocytes # 1.6 K/mcL (0.0-1.3) H 01/31/19 19:23 Platelet Estimate Decreased (Normal) L 01/31/19 19:23 Immature Plt Fraction 18.7 % (1.1-6.1) H 02/02/19 11:05 PT 19.5 Seconds (9.4-12.1) H 02/02/19 11:05 APTT 46.1 Seconds (26.0-36.0) H 02/01/19 05:06 Heparin Anti-Xa, Unfract 0.05 IU/mL (0.30-0.70) L 02/02/19 11:05 ABG pH 7.31 pH Units (7.32-7.45) L 02/02/19 11:16 ABG pCO2 54 mmHg (35-45) H 02/02/19 04:58 ABG pO2 76 mmHg (85-104) L 02/02/19 11:16 ABG HCO3 29 mEq/L (21-27) H 01/31/19 22:13 ABG Total CO2 27 mEq/L (20-26) H 02/01/19 04:58 ABG O2 Saturation 94 % (95-98) L 02/02/19 11:16 ABG Base Excess -5 mEq/L (-2 to 3) L 02/02/19 11:16 VBG pCO2 32 mmHg (41-51) L 02/01/19 17:38 VBG pO2 209 mmHg (25-50) H 02/01/19 17:38 VBG HCO3 19 mEq/L (21-27) L 02/01/19 17:38 VBG Hematocrit 57.0 % (37.5-50.1) H 02/01/19 17:38 VBG Lactic Acid 3.7 mmol/L (0.5-2.2) H 02/01/19 17:38 Venous Sodium 134 mEq/L (135-145) L 02/01/19 17:38 Sodium 134 mEq/L (136-145) L 02/01/19 02:25 Potassium 5.2 mEq/L (3.5-5.1) H 02/01/19 02:25 Chloride 94 mEq/L (98-107) L 02/01/19 02:25 Carbon Dioxide 20 mEq/L (23-29) L 02/02/19 03:15 BUN 45 mg/dL (6-20) H 02/02/19 03:15 Creatinine 6.65 mg/dL (0.70-1.30) H 02/02/19 03:15 Est GFR ( Amer) 11 (> 60) L 02/02/19 03:15 Est GFR (Non-Af Amer) 9 (> 60) L 02/02/19 03:15 Glucose 120 mg/dL (70-105) H 02/02/19 03:15 Whole Bld Glucose 141 mg/dl (65-95) H 02/01/19 17:38 POC Glucose 119 mg/dL (70-99) H 02/01/19 19:35 Calculated Osmolality 303 (280-300) H 02/01/19 02:25 Calcium 10.4 mg/dL (8.6-10.3) H 01/31/19 19:23 Venous Ioniz Calcium 0.86 mmol/L (1.15-1.35) L 02/02/19 05:46 Phosphorus 5.6 mg/dL (2.7-4.5) H 02/02/19 03:15 Total Bilirubin 1.3 mg/dL (0.3-1.0) H 02/01/19 02:25 Direct Bilirubin 0.5 mg/dL (0.0-0.2) H 01/31/19 19:23 Alkaline Phosphatase 188 Units/L (34-104) H 02/01/19 02:25 Creatine Kinase 1390 Units/L (30-223) H 02/01/19 02:25 Troponin I 0.12 ng/mL (< 0.04) H* 02/01/19 02:25 Serum Total Protein 6.3 g/dL (6.4-8.9) L 02/01/19 02:25 Lipase 4 Units/L (11-82) L 02/01/19 02:25 Hep Bs Antibody < 3.10 mIU/mL (10.00-) L 02/01/19 13:25 Staph aureus (PCR) DETECTED (Not Detect) A 01/31/19 19:23 mecA-Methicil Res Gene DETECTED (Not Detect) A 01/31/19 19:23 General appearance: Present: no acute distress - Respiratory Additional comments: Rhonchi decreased from yesterday. Remains intubated with vent support. - Cardiovascular Cardiovascular exam: Present: tachycardia - GI/Abdominal GI/Abdominal exam: Present: distended, soft - Extremities Exam Additional comments: Lower extremities with 2-3+ edema, bilateral feet calloused - Neurological Exam Additional comments: Sedated on vent - Skin Skin exam: Present: dry, warm Palliative Quality Palliative Quality: Screen for Code Status: Yes, Screen for Goals of Care: Yes, Screen for Pain: NA, If Pain Regimen Started, Initiate Bowel Regimen: NA, Screen for Nausea/Vomitting: NA Code Status: 02/01/19 00:46 Resuscitation Status: Active [RES] Routine Comment: Resuscitation Status: Full Code - Labs CBC & Chem 7: 02/02/19 11:05 02/02/19 03:15 Labs: Laboratory Results - last 24 hr 02/01/19 02/01/19 02/01/19 10:26 13:25 15:32 WBC RBC Hgb Hct MCV MCH MCHC RDW Plt Count MPV Immature Gran % Seg Neutrophils % Lymphocytes % Monocytes % Eosinophils % Basophils % Neutrophils # Lymphocytes # Monocytes # Eosinophils # Basophils # Immature Plt Fraction PT INR Heparin Anti-Xa, Unfract Sample Site ABG pH ABG pCO2 ABG pO2 ABG HCO3 ABG Total CO2 ABG O2 Saturation ABG Base Excess Eliot Test VBG pH VBG pCO2 VBG pO2 VBG HCO3 VBG Total CO2 VBG O2 Saturation VBG Base Excess VBG Hematocrit VBG Lactic Acid Respiration Rate O2 Delivery Device Blood Gas Modality Inspired O2 Tidal Volume PEEP Venous Sodium Sodium Venous Potassium Potassium Venous Chloride Chloride Carbon Dioxide BUN Creatinine Est GFR ( Amer) Est GFR (Non-Af Amer) BUN/Creatinine Ratio Glucose Whole Bld Glucose POC Glucose 165 H Calculated Osmolality Calcium Venous Ioniz Calcium 1.07 L Phosphorus Magnesium Random Vancomycin Hep Bs Antigen Nonreactive Hep Bs Antibody < 3.10 L 02/01/19 02/01/1902/01/19 15:50 17:38 19:35 WBC RBC Hgb Hct MCV MCH MCHC RDW Plt Count MPV Immature Gran % Seg Neutrophils % Lymphocytes % Monocytes % Eosinophils % Basophils % Neutrophils # Lymphocytes # Monocytes # Eosinophils # Basophils # Immature Plt Fraction PT INR Heparin Anti-Xa, Unfract Sample Site ABG pH ABG pCO2 ABG pO2 ABG HCO3 ABG Total CO2 ABG O2 Saturation ABG Base Excess Eliot Test VBG pH 7.38 VBG pCO2 32 L VBG pO2 209 H VBG HCO3 19 L VBG Total CO2 20 VBG O2 Saturation 100 VBG Base Excess -5 VBG Hematocrit 57.0 H VBG Lactic Acid 3.7 H Respiration Rate O2 Delivery Device Blood Gas Modality Inspired O2 Tidal Volume PEEP Venous Sodium 134 L Sodium Venous Potassium 5.3 Potassium Venous Chloride 106 Chloride Carbon Dioxide BUN Creatinine Est GFR ( Amer) Est GFR (Non-Af Amer) BUN/Creatinine Ratio Glucose Whole Bld Glucose 141 H POC Glucose 167 H 119 H Calculated Osmolality Calcium Venous Ioniz Calcium 0.90 L Phosphorus Magnesium Random Vancomycin Hep Bs Antigen Hep Bs Antibody 02/01/19 02/01/19 02/01/19 20:02 22:03 23:21 WBC RBC Hgb Hct MCV MCH MCHC RDW Plt Count MPV Immature Gran % Seg Neutrophils % Lymphocytes % Monocytes % Eosinophils % Basophils % Neutrophils # Lymphocytes # Monocytes # Eosinophils # Basophils # Immature Plt Fraction PT INR Heparin Anti-Xa, Unfract Sample Site ABG pH ABG pCO2 ABG pO2 ABG HCO3 ABG Total CO2 ABG O2 Saturation ABG Base Excess Eliot Test VBG pH VBG pCO2 VBG pO2 VBG HCO3 VBG Total CO2 VBG O2 Saturation VBG Base Excess VBG Hematocrit VBG Lactic Acid Respiration Rate O2 Delivery Device Blood Gas Modality Inspired O2 Tidal Volume PEEP Venous Sodium Sodium Venous Potassium Potassium Venous Chloride Chloride Carbon Dioxide BUN Creatinine Est GFR ( Amer) Est GFR (Non-Af Amer) BUN/Creatinine Ratio Glucose Whole Bld Glucose POC Glucose 93 Calculated Osmolality Calcium Venous Ioniz Calcium 1.03 L 1.08 L Phosphorus Magnesium Random Vancomycin Hep Bs Antigen Hep Bs Antibody 02/02/19 02/02/19 02/02/19 00:09 01:25 03:15 WBC RBC Hgb Hct MCV MCH MCHC RDW Plt Count MPV Immature Gran % Seg Neutrophils % Lymphocytes % Monocytes % Eosinophils % Basophils % Neutrophils # Lymphocytes # Monocytes # Eosinophils # Basophils # Immature Plt Fraction PT INR Heparin Anti-Xa, Unfract Sample Site Art Line ABG pH 7.28 L ABG pCO2 51 H ABG pO2 91 ABG HCO3 24 ABG Total CO2 26 ABG O2 Saturation 96 ABG Base Excess -3 L Eliot Test N/A VBG pH VBG pCO2 VBG pO2 VBG HCO3 VBG Total CO2 VBG O2 Saturation VBG Base Excess VBG Hematocrit VBG Lactic Acid Respiration Rate 24 O2 Delivery Device Adult Vent Blood Gas Modality VC Inspired O2 100.0 Tidal Volume 500 PEEP 5 Venous Sodium Sodium Venous Potassium Potassium Venous Chloride Chloride Carbon Dioxide BUN Creatinine Est GFR ( Amer) Est GFR (Non-Af Amer) BUN/Creatinine Ratio Glucose Whole Bld Glucose POC Glucose Calculated Osmolality Calcium Venous Ioniz Calcium 1.14 L Phosphorus Magnesium Random Vancomycin 19 Hep Bs Antigen Hep Bs Antibody 02/02/19 02/02/19 02/02/19 03:15 03:15 03:15 WBC 14.9 H RBC 5.57 H Hgb 15.0 Hct 48.8 MCV 87.6 MCH 26.9 L MCHC 30.7 L RDW 19.0 H Plt Count 68 L MPV TNP Immature Gran % 1.2 Seg Neutrophils % 86.4 Lymphocytes % 3.6 Monocytes % 8.4 Eosinophils % 0.1 Basophils % 0.3 Neutrophils # 12.9 H Lymphocytes # 0.5 L Monocytes # 1.3 Eosinophils # 0.0 Basophils # 0.0 Immature Plt Fraction 16.2 H PT 20.9 H INR 1.8 Heparin Anti-Xa, Unfract Sample Site ABG pH ABG pCO2 ABG pO2 ABG HCO3 ABG Total CO2 ABG O2 Saturation ABG Base Excess Eliot Test VBG pH VBG pCO2 VBG pO2 VBG HCO3 VBG Total CO2 VBG O2 Saturation VBG Base Excess VBG Hematocrit VBG Lactic Acid Respiration Rate O2 Delivery Device Blood Gas Modality Inspired O2 Tidal Volume PEEP Venous Sodium Sodium 136 Venous Potassium Potassium 4.3 Venous Chloride Chloride 102 Carbon Dioxide 20 L BUN 45 H Creatinine 6.65 H Est GFR ( Amer) 11 L Est GFR (Non-Af Amer) 9 L BUN/Creatinine Ratio 7 Glucose 120 H Whole Bld Glucose POC Glucose Calculated Osmolality 295 Calcium 10.3 Venous Ioniz Calcium Phosphorus 5.6 H Magnesium 2.1 Random Vancomycin Hep Bs Antigen Hep Bs Antibody 02/02/19 02/02/19 02/02/19 04:58 05:46 06:27 WBC RBC Hgb Hct MCV MCH MCHC RDW Plt Count MPV Immature Gran % Seg Neutrophils % Lymphocytes % Monocytes % Eosinophils % Basophils % Neutrophils # Lymphocytes # Monocytes # Eosinophils # Basophils # Immature Plt Fraction PT INR Heparin Anti-Xa, Unfract Sample Site Art Line ABG pH 7.24 L ABG pCO2 54 H ABG pO2 73 L ABG HCO3 24 ABG Total CO2 25 ABG O2 Saturation 91 L ABG Base Excess -5 L Eliot Test N/A VBG pH VBG pCO2 VBG pO2 VBG HCO3 VBG Total CO2 VBG O2 Saturation VBG Base Excess VBG Hematocrit VBG Lactic Acid Respiration Rate 24 O2 Delivery Device Adult Vent Blood Gas Modality VC Inspired O2 80.0 Tidal Volume 500 PEEP 5 Venous Sodium Sodium Venous Potassium Potassium Venous Chloride Chloride Carbon Dioxide BUN Creatinine Est GFR ( Amer) Est GFR (Non-Af Amer) BUN/Creatinine Ratio Glucose Whole Bld Glucose POC Glucose Calculated Osmolality Calcium Venous Ioniz Calcium 0.86 L 1.19 Phosphorus Magnesium Random Vancomycin Hep Bs Antigen Hep Bs Antibody 02/02/19 02/02/19 02/02/19 11:05 11:05 11:16 WBC 14.2 H RBC 5.48 Hgb 14.9 Hct 48.1 MCV 87.8 MCH 27.2 L MCHC 31.0 L RDW 19.3 H Plt Count 67 L MPV TNP Immature Gran % Seg Neutrophils % Lymphocytes % Monocytes % Eosinophils % Basophils % Neutrophils # Lymphocytes # Monocytes # Eosinophils # Basophils # Immature Plt Fraction 18.7 H PT 19.5 H INR 1.7 Heparin Anti-Xa, Unfract 0.05 L Sample Site ABG pH 7.31 L ABG pCO2 44 ABG pO2 76 L ABG HCO3 22 ABG Total CO2 23 ABG O2 Saturation 94 L ABG Base Excess -5 L Eliot Test VBG pH VBG pCO2 VBG pO2 VBG HCO3 VBG Total CO2 VBG O2 Saturation VBG Base Excess VBG Hematocrit VBG Lactic Acid Respiration Rate 28 O2 Delivery Device Adult Vent Blood Gas Modality Inspired O2 60.0 Tidal Volume 530 PEEP 8 Venous Sodium Sodium Venous Potassium Potassium Venous Chloride Chloride Carbon Dioxide BUN Creatinine Est GFR ( Amer) Est GFR (Non-Af Amer) BUN/Creatinine Ratio Glucose Whole Bld Glucose POC Glucose Calculated Osmolality Calcium Venous Ioniz Calcium Phosphorus Magnesium Random Vancomycin Hep Bs Antigen Hep Bs Antibody - Impressions Impressions KUB X-Ray 02/01/19 12:52 IMPRESSION: Vascular access catheter placements. D/ / 02/01/2019 13:22:44 Benson Ronquillo MD / [facility] Interpreting Provider: Benson Ronquillo MD Echocardiogram 02/01/19 13:36 Impressions: Technically sub-optimal due to clinical status and body habitus. Indeterminate diastolic function. Moderate to severely dilated left ventricle. Probably severe LV dysfunction, LVEF around 20-25% Grossly, severe global left ventricular systolic dysfunction Right ventricle was not well visualized Mild-moderate tricuspid regurgitation. The IVC is dilated. < 50% respiratory change. Severe LV dysfunction, LVEF around 20-25% There is a small pericardial effusion present.There is echocardiographic evidence of tamponade. Findings: Study Quality * Technically sub-optimal due to clinical status and body habitus. ECG Findings * Atrial fibrillation. Left Ventricle * Indeterminate diastolic function. * Moderate to severely dilated left ventricle. * Probably severe LV dysfunction, LVEF around 20-25% * Grossly, severe global left ventricular systolic dysfunction Right Ventricle * Right ventricle was not well visualized Left Atrium * Normal left atrial size. Right Atrium * Normal right atrial size. Aortic Valve * Moderately calcified aortic valve leaflets. * Aortic valve not well visualized. * No aortic regurgitation. * No aortic stenosis. Mitral Valve * Mitral valve not well visualized. * No mitral regurgitation. * No mitral stenosis. Tricuspid Valve * Mild-moderate tricuspid regurgitation. Aorta * Normally sized aortic root. Pericardium * There is a small pericardial effusion present.There is echocardiographic evidence of tamponade. * IVC * The IVC is dilated. * < 50% respiratory change. Pulmonary Artery * Pulmonary artery not well visualized. Guidance Ultrasound 02/01/19 14:47 IMPRESSION: 1. Right common femoral vein temporary dialysis catheter placement as discussed above. D/ / Chacorta Lopez MD / Chacorta Lopez MD Interpreting Provider: Chacorta Lopez MD Insertion Non-Tunneled Catheter 02/01/19 14:47 IMPRESSION: 1. Right common femoral vein temporary dialysis catheter placement as discussed above. D/ / Chacorta Lopez MD / Chacorta Lopez MD Interpreting Provider: Chacorta Lopez MD Extremity Ultrasound 02/01/19 18:33 IMPRESSION: Evidence for clot in the fistula in the medial aspect of the arm with some surrounding fluid. No color flow seen within the fistula The findings were sent to the Radiology Results Communication Center at 6:35 pm on 02/01/2019to be communicated to a licensed caregiver. D/ / Hiram Davila MD / Hiram Davila MD Interpreting Provider: Hiram Davila MD Chest X-Ray 02/02/19 07:43 IMPRESSION: Development of right upper lobe pneumonia. Endotracheal tube tip is 2.4 cm above the mike. D/ / Kamala Gannon MD / Kamala Gannon MD Interpreting Provider: Kamala Gannon MD - ABG Interpretation ABG results: ABG ABG pH 7.31 pH Units (7.32-7.45) L 02/02/19 11:16 ABG pCO2 44 mmHg (35-45) 02/02/19 11:16 ABG pO2 76 mmHg (85-104) L 02/02/19 11:16 ABG O2 Saturation 94 % (95-98) L 02/02/19 11:16 PT/INR, D-dimer PT 19.5 Seconds (9.4-12.1) H 02/02/19 11:05 Consult Discharge Plan - Plan Referrals: NONE,PCP [Primary Care Provider] -
--- NOTE | 2019-02-02 13:27 | Internal Med Progress Note ---
Hospitalist Progress Note - Encounter Date of Encounter: 02/02/19 Time of Encounter: 13:22 - Subjective Interval History: This is an extremely complicated 48-year-old -[place] male with multiple medical problems including noncompliance, end-stage renal disease on hemodialysis on Wednesday, atrial fibrillation on , chronic systolic CHF, diabetes mellitus, hypertension, hyperlipidemia, marijuana abuse. Patient was found disheveled, at home, covered in feces, with altered mental status. He was brought to the emergency room where he was noted to be hypotensive, with A. fib with RVR. Electrocardioversion was attempted twice, without success. Patient was subsequently intubated. He had a central line placed in his right groin, as well as an arterial line. He was given aggressive IV fluids per sepsis protocol, then started on vasopressor therapy and admitted to our intensive care unit. As the patient is currently intubated and sedated. He is on epinephrine as well as phenylephrine. He remains on broad-spectrum antibiotics with Zosyn and vancomycin. Of note 202 blood cultures are growing out gram-positive cocci. With regards to his atrial fibrillation he remains on an amiodarone drip, as well as IV digoxin. Cardiology is following as well as nephrology. Patient had a temporary dialysis catheter placed this afternoon. Does have a left arm AV fistula which is nonfunctional. CRRT is planned this af ternoon. Patient is also noted to have an elevated CK, currently 1390, likely related to being down underground for none known duration of time. 02/02: Patient is improved since last night. We have weaned down norepinephrine with subsequent improvement in his heart rate. He is also undergoing CRRT with 2 L of fluid removed overnight. Patient remains nonresponsive on ventilator support. He is sedated. We did do an ultrasound of his left AV fistula which showed no obvious abscess or fluid collection. Podiatry has been consulted to evaluate his feet for possible bowel infection. Patient's repeat blood cultures from February 01 again are positive for gram-positive cocci 2. Patient co ntinues on broad-spectrum antibiotics with Zosyn and vancomycin. Patient's echo showed EF of 20%, with severe dilated left ventricle, mild to moderate tricuspid regurgitation but poor visualization of the right ventricle. No obvious vegetations seen. Patient CK remains elevated at 1390. Patient is currently intubated and sedated and unable to provide any review of systems. - Exam Vitals: Temp Pulse Resp BP Pulse Ox 97 F L 87 28 99/68 96 02/02/19 11:00 02/02/19 13:00 02/02/19 13:00 02/02/19 13:00 02/02/19 13:00 Exam: General: intubated, sedated, appears comfortable HEENT: head normocephalic/atraumatic, pupils equally round and with sluggish reaction to light, sclera anicteric Neck: Supple, no lymphadenopathy Cardio: Tachycardic, no murmurs, +S1/S2 Pulm: Coarse breath sounds bilaterally, on mechanical ventilation Abdomen: Soft, distended with fluid wave,+ bs Extremities: 3+ pitting edema BLE extending above chilel, no cyanosis, Neuro: unable to fully assess neuro status due to intubation and sedation MSK: no joint swelling or joint erythema, AV fistulae of left forearm noted Skin: very dry, chronic venous stasis discoloration, intact. Patient has a half-dollar ulcer, scabbed over on plantar aspect of left foot. Both feet are edematous with severe chronic venous stasis changes. Both feet are swollen Patient has AV fistula site on his left anterior forearm without a palpable thrill, it appears mildly indurated there some scabbing over it Psych: unable to assess - Summary of Assessment and Plan Summary of Assessment and Plan: Septic shock -Suspect due to MRSA bacteremia -Continue broad-spectrum antibiotics however given potential other sources of infection -Patient is currently taking #1 Zosyn, vancomycin -Norepi, Kee for hypotension -?component of cardiogenic shock, defer to cardiology if Milrinone would benefit MRSA bacteremia -Multiple potential sources -Patient has an ulcer on the plantar aspect of his left foot, also multiple skin wounds -His AV fistula is nonfunctional and somewhat indurated, this is also a potenti al source, will check an ultrasound -? History of IV drug abuse -? Due to poor dentition - will likely need a transesophageal echocardiogram to r/o vegetation -Patient did receive vancomycin in the emergency room, this will likely be in his system for at least 48 hours, pharmacy consultation for further dosing -Repeat blood cultures remain positive Afib w RVR -Early on amiodarone, IV digoxin, failed cardioversion 2 -Cardiology following -was on NOAC at home 02/02: Heart rate now improved, heparin drip started for stroke prevention Nonishcemic Cardiomyopathy, chronic systolic CHF -EF 20% -cardiology following Altered Mental status -Multifactorial likely due to sepsis,? Cerebral hypoperfusion -CT scan showed no evidence of acute stroke. No obvious seizure activity noted. -No new level is normal, PCO2 is not significantly elevated -Continue to closely monitor -check drug screen End-stage renal disease -CRRT as I discussed with Dr. Joaquin today -Avoid nephrotoxins as best able, monitor electrolytes Hyperkalemia, hyperphosphatemia -CRRT should help correct Mild rhabdomyolysis -Continue to monitor CK -CK is not markedly elevated on not convinced this is significantly contributing to his current illness however we will monitor levels Polysubstance drug abuse Morbid Obesity Chronic venous stasis DVT prophylaxis -subQ heparin - Time Spent with Patient Total time spent is greater than 50% in coordination of care (as documented) at patient's floor/unit and/or counseling patient: Greater than 35 minutes Internal Medicine: Result - Labs CBC & Chem 7: 02/02/19 11:05 02/02/19 03:15 Labs: Short CBC 02/02/19 02/02/19 Range/Units 03:15 11:05 WBC 14.9 H 14.2 H (4.3-11.1) K/mcL Hgb 15.0 14.9 (12.9-16.9) g/dL Hct 48.8 48.1 (37.5-50.1) % Plt Count 68 L 67 L (140-400) K/mcL Neutrophils # 12.9 H (1.6-8.9) K/mcL BMP 02/02/19 03:15 Sodium 136 Potassium 4.3 Chloride 102 Carbon Dioxide 20 L BUN 45 H Creatinine 6.65 H Glucose 120 H Calcium 10.3 - ABG Interpretation ABG results: ABG ABG pH 7.31 pH Units (7.32-7.45) L 02/02/19 11:16 ABG pCO2 44 mmHg (35-45) 02/02/19 11:16 ABG pO2 76 mmHg (85-104) L 02/02/19 11:16 ABG O2 Saturation 94 % (95-98) L 02/02/19 11:16 PT/INR, D-dimer PT 19.5 Seconds (9.4-12.1) H 02/02/19 11:05 - Impressions Impressions KUB X-Ray 02/01/19 12:52 IMPRESSION: Vascular access catheter placements. D/ / 02/01/2019 13:22:44 Benson Ronquillo MD / mitchell Interpreting Provider: Benson Ronquillo MD Echocardiogram 02/01/19 13:36 Impressions: Technically sub-optimal due to clinical status and body habitus. Indeterminate diastolic function. Moderate to severely dilated left ventricle. Probably severe LV dysfunction, LVEF around 20-25% Grossly, severe global left ventricular systolic dysfunction Right ventricle was not well visualized Mild-moderate tricuspid regurgitation. The IVC is dilated. < 50% respiratory change. Severe LV dysfunction, LVEF around 20-25% There is a small pericardial effusion present.There is echocardiographic evidence of tamponade. Findings: Study Quality * Technically sub-optimal due to clinical status and body habitus. ECG Findings * Atrial fibrillation. Left Ventricle * Indeterminate diastolic function. * Moderate to severely dilated left ventricle. * Probably severe LV dysfunction, LVEF around 20-25% * Grossly, severe global left ventricular systolic dysfunction Right Ventricle * Right ventricle was not well visualized Left Atrium * Normal left atrial size. Right Atrium * Normal right atrial size. Aortic Valve * Moderately calcified aortic valve leaflets. * Aortic valve not well visualized. * No aortic regurgitation. * No aortic stenosis. Mitral Valve * Mitral valve not well visualized. * No mitral regurgitation. * No mitral stenosis. Tricuspid Valve * Mild-moderate tricuspid regurgitation. Aorta * Normally sized aortic root. Pericardium * There is a small pericardial effusion present.There is echocardiographic evidence of tamponade. * IVC * The IVC is dilated. * < 50% respiratory change. Pulmonary Artery * Pulmonary artery not well visualized. Guidance Ultrasound 02/01/19 14:47 IMPRESSION: 1. Right common femoral vein temporary dialysis catheter placement as discussed above. D/ / Chacorta Lopez MD / Chacorta Lopez MD Interpreting Provider: Chacorta Lopez MD Insertion Non-Tunneled Catheter 02/01/19 14:47 IMPRESSION: 1. Right common femoral vein temporary dialysis catheter placement as discussed above. D/ / Chacorta Lopez MD / Chacorta Lopez MD Interpreting Provider: Chacorta Lopez MD Extremity Ultrasound 02/01/19 18:33 IMPRESSION: Evidence for clot in the fistula in the medial aspect of the arm with some surrounding fluid. No color flow seen within the fistula The findings were sent to the Radiology Results Communication Center at 6:35 pm on 02/01/2019to be communicated to a licensed caregiver. D/ / Hiram Davila MD / Hiram Davila MD Interpreting Provider: Hiram Davila MD Chest X-Ray 02/02/19 07:43 IMPRESSION: Development of right upper lobe pneumonia. Endotracheal tube tip is 2.4 cm above the mike. D/ / Kamala Gannon MD / Kamala Gannon MD Interpreting Provider: Kamala Gannon MD Consult Discharge Plan - Plan Referrals: NONE,PCP [Primary Care Provider] -
--- NOTE | 2019-02-02 14:04 | Event Note ---
Date of Encounter: 02/02/19 Time of Encounter: 14:00 - Cardiology Event Note HR improved overnight. Patient remains on amiodarone gtt. Heparin gtt started. Will need to monitor PLT closely. No bowel sounds at this time so we will not transition to OG medications. Spoke with primary team, patient blood cultures are positive and QUIQUE is recommended to r/o endocarditis. Awaiting consent from family. Son en route to hospital. We will continue to follow. HAS-BLED Score - Score Abnormal renal function: Dialysis, Transplant, or CR>2.26 mg/dl Medication usage predisposing to bleeding: Antiplatelet agents, NSAIDs, An ticoagulants Score: 2
--- NOTE | 2019-02-02 15:14 | Podiatry Consult Note ---
Date of Encounter: 02/02/19 Time of Encounter: 13:25 Assessment and Plan (1) Callus of foot Current visit: Yes Status: Acute Assessment: -Stable and chronic callus noted to left plantar medial midfoot and left distal hallux -No erythema or signs of abscess -No drainage noted -Stage I pressure ulcer to right heel -Xerosis noted bilateral lower extremities -WBC 14.2 down from 17.1 -Blood cultures x 2 01/31/19 and 02/01/19 preliminary gram positive cocci -Right ankle x-ray showed evidence of advanced neuropathic arthropathy of the midfoot with bony fragmentation, debris, and dislocations, these findings are consistent with previous studies. Plan: -At this time it is not felt the calluses are the source of infection, will continue to monitor and if patient begins to stabilize may consider further imagining of lower extremities -Please place pillows under lower legs to keep bilateral heels off of bed at all times History of Present Illness HPI: Mr. Hatch is a 48 year old male who presented to the Emergency Room (ER) on 01/31/2019 with altered mental status and A.fib with RVR. He does have a past medical history that includes ESRD on hemodialysis, CHF, a.fib taking Eliquis, cardiomyopathy, DM, HTN, and hyperlipidemia. Patient was found on the ground at his home unresponsive for unknown length of time. Electric cardioversion was attempted twice in the ER and both were failed attempts to convert his rhythm so he was placed on Amiodarone. He was intubated due to respiratory failure. Podiatry was consulted due to patient's bacteremia and possible source coming from left foot. Upon my assessment patient is in ICU and remains unresponsive. He remains intubated and sedated. He is also on Lilly. He is known to Podiatry and has been evaluated and treated by Dr. Teresa and Cici Alba, PAUL. It has been noted he is non-compliant in his diabetes management and he often refused to wear proper foot wear due to style of diabetic shoes and the problems some of his devices have caused with driving. He was last evaluated by Cici 3 days ago and at that time had a callus to the left plantar aspect of the foot and toe. Using sharp debridement the hyerkerattic tissue was removed. No evidence of infection was documented and it appears this is a chronic issue for him related to his Charcot deformity. Past Med Surg Social Fam HX - Past Medical History Medical history: arthritis, atrial fibrillation, cardiomyopathy, CHF, COPD, diabetes, dialysis, GERD, hyperlipidemia, hypertension, osteoporosis, renal d isease, other Additional medical history: marijuana Psychiatric history: anxiety, depression, PTSD, other - Past Surgical History Surgical History: herniorrhaphy, vascular surgery, other Additional surgical history: dialysis graft - Social History Smoking Status: Current every day smoker Smokeless Tobacco Status: No Alcohol use: none Drug use: marijuana - Family History Father Living Status: Hx Family Cardiac Disorders: Yes (HTN) Hx Family Respiratory Disorders: No Hx Family Cancer: No Hx Family GI Disorders: No Hx Family Endocrine Disorder: No Hx Family Neuromuscular Disorders: No Hx Family Neurologic Disorders: No Hx Family HEENT Disorders: No Hx Family Autoimmune Disorders: No Mother Adopted: No Living Status: Still Living Hx Family Cardiac Disorders: Yes Hx Family Endocrine Disorder: Yes Medications and Allergies Insulin ASPART [NovoLOG] 0 unit SQ TIDWM 02/09/17 [History] Apixaban [Eliquis] 5 mg PO BID 11/22/18 [History] Fluticasone Propionate Nasal [Flonase] 1 spray NS DAILY PRN 11/22/18 [History] Calcium Acetate [Phos-LO] 3,335 mg PO TIDWM 11/23/18 [History] Midodrine HCl 10 mg PO TID 11/23/18 [History] Pregabalin [Lyrica] 100 mg PO TID 11/23/18 [History] Insulin Glargine,Hum.rec.anlog [Lantus Solostar] 25 unit SQ BID 12/15/18 [History] [place]-3/Dha/Epa/Fish Oil [Fish Oil 1,000 mg Softgel] 2 cap PO QPM 12/15/18 [History] Atorvastatin [Lipitor] 40 mg PO HS 30 Days #30 tablet 12/29/18 [Rx] Carvedilol [Coreg] 6.25 mg PO BID 01/31/19 [History] Allergy/AdvReac Type Severity Reaction Status Date / Time hydrocodone [From [facility]] Allergy Intermediate Hives Verified 12/14/18 20:29 lanolin AdvReac Swelling Verified 12/14/18 20:29 [From [facility] mineral oil AdvReac Swelling Verified 12/14/18 20:29 [From [facility] petrolatum,white AdvReac Swelling Verified 12/14/18 20:29 [From [facility] All Systems Reviewed: The remainder of the systems were reviewed and are negative - Constitutional Additional comments: As per HPI Physical Exam - Constitutional Vitals: Temp Pulse Resp BP Pulse Ox 97 F L 91 28 91/64 96 02/02/19 11:00 02/02/19 14:00 02/02/19 14:00 02/02/19 14:00 02/02/19 14:00 Exam: Constitutional: Unresponsive, intubated and on sedation Vascular: PT/DP pulses per Doppler, edema noted bilateral lower extremities Neurological: Abnormal plantar response Dermatological: Callus left plantar medial aspect midfoot and left distal hallux, appear stable and chronic, no drainage, no signs of abscess, no erythema noted around calluses. Xerosis noted bilateral lower extremities. Stage I pressure ulcer noted to right heel. Results - Labs Result Diagrams: 02/02/19 11:05 02/02/19 03:15 Labs: Abnormal lab results WBC 14.2 K/mcL (4.3-11.1) H 02/02/19 11:05 RBC 5.57 M/mcL (4.19-5.50) H 02/02/19 03:15 MCH 27.2 pg (28.0-33.3) L 02/02/19 11:05 MCHC 31.0 g/dL (31.6-35.5) L 02/02/19 11:05 RDW 19.3 % (11.5-14.5) H 02/02/19 11:05 Plt Count 67 K/mcL (140-400) L 02/02/19 11:05 Neutrophils # 12.9 K/mcL (1.6-8.9) H 02/02/19 03:15 Lymphocytes # 0.5 K/mcL (0.6-4.6) L 02/02/19 03:15 Monocytes # 1.6 K/mcL (0.0-1.3) H 01/31/19 19:23 Platelet Estimate Decreased (Normal) L 01/31/19 19:23 Immature Plt Fraction 18.7 % (1.1-6.1) H 02/02/19 11:05 PT 19.5 Seconds (9.4-12.1) H 02/02/19 11:05 APTT 46.1 Seconds (26.0-36.0) H 02/01/19 05:06 Heparin Anti-Xa, Unfract 0.05 IU/mL (0.30-0.70) L 02/02/19 11:05 ABG pH 7.31 pH Units (7.32-7.45) L 02/02/19 11:16 ABG pCO2 54 mmHg (35-45) H 02/02/19 04:58 ABG pO2 76 mmHg (85-104) L 02/02/19 11:16 ABG HCO3 29 mEq/L (21-27) H 01/31/19 22:13 ABG Total CO2 27 mEq/L (20-26) H 02/01/19 04:58 ABG O2 Saturation 94 % (95-98) L 02/02/19 11:16 ABG Base Excess -5 mEq/L (-2 to 3) L 02/02/19 11:16 VBG pCO2 32 mmHg (41-51) L 02/01/19 17:38 VBG pO2 209 mmHg (25-50) H 02/01/19 17:38 VBG HCO3 19 mEq/L (21-27) L 02/01/19 17:38 VBG Hematocrit 57.0 % (37.5-50.1) H 02/01/19 17:38 VBG Lactic Acid 3.7 mmol/L (0.5-2.2) H 02/01/19 17:38 Venous Sodium 134 mEq/L (135-145) L 02/01/19 17:38 Sodium 134 mEq/L (136-145) L 02/01/19 02:25 Potassium 5.2 mEq/L (3.5-5.1) H 02/01/19 02:25 Chloride 94 mEq/L (98-107) L 02/01/19 02:25 Carbon Dioxide 20 mEq/L (23-29) L 02/02/19 03:15 BUN 45 mg/dL (6-20) H 02/02/19 03:15 Creatinine 6.65 mg/dL (0.70-1.30) H 02/02/19 03:15 Est GFR ( Amer) 11 (> 60) L 02/02/19 03:15 Est GFR (Non-Af Amer) 9 (> 60) L 02/02/19 03:15 Glucose 120 mg/dL (70-105) H 02/02/19 03:15 Whole Bld Glucose 141 mg/dl (65-95) H 02/01/19 17:38 POC Glucose 119 mg/dL (70-99) H 02/01/19 19:35 Calculated Osmolality 303 (280-300) H 02/01/19 02:25 Calcium 10.4 mg/dL (8.6-10.3) H 01/31/19 19:23 Venous Ioniz Calcium 0.86 mmol/L (1.15-1.35) L 02/02/19 05:46 Phosphorus 5.6 mg/dL (2.7-4.5) H 02/02/19 03:15 Total Bilirubin 1.3 mg/dL (0.3-1.0) H 02/01/19 02:25 Direct Bilirubin 0.5 mg/dL (0.0-0.2) H 01/31/19 19:23 Alkaline Phosphatase 188 Units/L (34-104) H 02/01/19 02:25 Creatine Kinase 1390 Units/L (30-223) H 02/01/19 02:25 Troponin I 0.12 ng/mL (< 0.04) H* 02/01/19 02:25 Serum Total Protein 6.3 g/dL (6.4-8.9) L 02/01/19 02:25 Lipase 4 Units/L (11-82) L 02/01/19 02:25 Hep Bs Antibody < 3.10 mIU/mL (10.00-) L 02/01/19 13:25 Staph aureus (PCR) DETECTED (Not Detect) A 01/31/19 19:23 mecA-Methicil Res Gene DETECTED (Not Detect) A 01/31/19 19:23 H & H 02/02/19 02/02/19 Range/Units 03:15 11:05 Hgb 15.0 14.9 (12.9-16.9) g/dL Hct 48.8 48.1 (37.5-50.1) % All other labs normal. Consult Discharge Plan - Plan Referrals: NONE,PCP [Primary Care Provider] -
[2019-02-03] MEDS: Heparin 25,000 UNIT/250 ML D5W 25,000 UNIT/250 ML IV.SOLN IVC SCH ×2 (00:27→11:25)
[2019-02-03] MEDS: PrismaSATE BGK 4/2.5 5,000 ML CRRT SCH ×12 (01:10→20:51)
[2019-02-03] MEDS: Norepinephrine 8 MG in 0.9 % Sodium Chloride 250 ML IVC SCH ×3 (02:04→20:47)
[2019-02-03] MEDS: Phenylephrine 50 MG in 0.9 % Sodium Chloride 250 ML IVC SCH ×5 (02:04→21:18)
[2019-02-03] MEDS: Artificial Tears SOLN 15 ML BOTTLE BOTH EYES SCH ×6 (03:11→23:05)
[2019-02-03] MEDS: Insulin LISPRO 300 UNITS/3 ML VIAL SQ SCH ×6 (03:11→23:28)
[2019-02-03] MEDS: Ipratropium/Albuterol Neb 3 ML IH SCH ×4 (03:18→22:35)
[2019-02-03] MEDS: Piperacillin/Tazobactam 3.375 GM in 0.9 % Sodium Chloride Mini Bag 100 ML IVPB SCH ×3 (03:58→20:09)
[2019-02-03] MEDS: FentaNYL (PF) 1,000 MCG in 0.9 % Sodium Chloride 80 ML IVC SCH ×4 (04:00→22:29)
[2019-02-03 04:32] LABS: ABG Base Excess -3 mEq/L (-2 to 3); ABG HCO3 21 mEq/L (21-27); ABG Oxygen Saturation 98 % (95-98); ABG PCO2 36 mmHg (35-45); ABG PH 7.38 pH Units (7.32-7.45); ABG PO2 112 mmHg (85-104); ABG TCO2 22 mEq/L (20-26); Blood Gas Modality PRVC; Blood Gas PEEP 8 cm H2O; Blood Gas VT 530 cc
[2019-02-03 04:33] LABS: Nucleated Red Blood Cells 0.2 /100 WBC (0)
[2019-02-03 04:35] LABS: Basophils # 0.1 K/mcL (0.0-0.2); Basophils % 0.3 %; Eosinophils % 0.2 %; Hematocrit 45.3 % (37.5-50.1); Hemoglobin 14.5 g/dL (12.9-16.9); Immature Platelets 17.4 % (1.1-6.1); Lymphocytes # 0.7 K/mcL (0.6-4.6); Lymphocytes % 4.2 %; Mean Corpuscular Hemoglobin 26.8 pg (28.0-33.3); Mean Corpuscular Volume 83.7 fL (83.0-100.0); Monocytes # 1.6 K/mcL (0.0-1.3); Monocytes % 10.1 %; Neutrophils # 13.1 K/mcL (1.6-8.9); Platelet Count 60 K/mcL (140-400); Red Blood Count 5.41 M/mcL (4.19-5.50); Red Cell Distribution Width 19.6 % (11.5-14.5); Segmented Neutrophils % 84.2 %; White Blood Count 15.6 K/mcL (4.3-11.1)
[2019-02-03 04:38] LABS: INR 1.5; Prothrombin Time 17.1 Seconds (9.4-12.1)
[2019-02-03 04:44] LABS: Albumin 2.9 g/dL (3.5-5.7); Bilirubin,Total 4.3 mg/dL (0.3-1.0); Calcium 9.4 mg/dL (8.6-10.3); Magnesium 2.1 mg/dL (1.6-2.6); Phosphorous 2.8 mg/dL (2.7-4.5); Potassium 4.8 mEq/L (3.5-5.1); Total Protein 5.9 g/dL (6.4-8.9)
[2019-02-03 05:30] LABS: Platelet Estimate Decreased (Normal); Polychromasia 1+ (Not Present)
--- NOTE | 2019-02-03 07:24 | Pulmonology Progress Note ---
<Elizabeth Carrion - Last Filed: 02/03/19 11:45> Date of Encounter: 02/03/19 Time of Encounter: 07:24 Assessment and Plan (1) Shock Current Visit: Yes Status: Acute Patient with septic shock. -Source is bacteremia, other sources are unknown at this time but suspect possible pneumonia. Podiatry to not believe the cellulitis of the lower extrem ity was the source. No endocarditis on TTE. -Afebrile -hemodynamically unstable requiring vasopressors -intubated and sedated with fentanyl, versed -WBC 15.6, slightly increased -lactic acid 2 -lipase for -01/31/2019 Blood culture growing MRSA x2 -02/01/2019 blood culture growing MRSA x2 -abdomen/pelvis CT showing possible acute pancreatitis however lipase is low. No other acute process. -QUIQUE: no valvular vegetation. Severe biventricular systolic dysfunction. Severe biatrial enlargement. -Repeat chest x-ray KUB today unremarkable. plan: -continue to follow to determine source of infection. There is a family meeting today along with POA present to discuss course of action for treatment plan as the patient is a guarded poor prognosis. Palliative care will be present. Plan for bronchoscopy should patient's family consent. -continue vancomycin day 4 -continue Zosyn day 4 -continue vasopressors: levophed, vasopressin, phenylephrine -continue sedated with fentanyl, versed -repeat blood cultures today pending (2) Bacteremia Current Visit: Yes Status: Acute Bacteremia from unknown sources. -01/31/2019 Blood culture growing MRSA x2 -02/01/2019 blood culture growing MRSA x2 -QUIQUE: no valvular vegetation. Severe biventricular systolic dysfunction. Severe biatrial enlargement. - Plan as above (3) Atrial fibrillation with RVR Current Visit: Yes Status: Acute History of known Atrial fibrillation with RVR taking eliquis -currently tachycardic -currently on amiodarone drip -continue heparin drip with potential plans to switch to oral anticoagulation like Eliquis when able per cardiology recommendation (4) Encephalopathy acute Current Visit: No Status: Resolved Patient is encephalopathy can was found down and unresponsive on initial presentation. -This is likely secondary to septic shock, metabolic disturbances. No CVA on head CT. -head CT show no acute intracranial abnormality -continue management as above (5) Rhabdomyolysis Current Visit: Yes Status: Acute Presented with rhabdomyolysis after the patient was found down at home for unknown amount of time. Patient received 3L IVF. -Creatinine kinase 1210 > 1390 -continue to dialyzed the patient ESRD Qualifiers: Rhabdomyolysis type: non-traumatic Qualified Code(s): M62.82 - Rhabdo myolysis (6) Cellulitis in diabetic foot Current Visit: Yes Status: Acute Patient has cellulitis and diabetic foot. -Podiatry following and recommends that heels the elevated from bed -continue antibiotics of vancomycin and Zosyn (7) End-stage renal disease needing dialysis Current Visit: No Status: Acute Known ESRD receiving dialysis MWF. -Temporary dialysis catheter in right groin -Nephrology following and managing dialysis of CRRT -avoid nephrotoxic agents and renal dose medications (8) Elevated troponin Current Visit: Yes Status: Acute Elevated troponin that is likely secondary to demand ischemia and the setting of septic shock, atrial fibrillation with RVR -troponin 0.12 > 0.13 -currently on heparin drip -cardiology following and recommends that patient is able to take oral medication that he be restarted on oral anticoagulation like Eliquis. (9) Nonischemic cardiomyopathy Current Visit: Yes Status: Chronic Nonischemic Cardiomyopathy - Cardiology consulted - Monitor I&Os and weight - Echo indeterminate diastolic dysfunction, moderate severe dilated left ventricle. Probable severe LV dysfunction with EF 20 to 25%. - EF 20% NICMP on previous echo -On amiodarone -cardiology following (10) Diabetes Current Visit: No Status: Chronic History of known diabetes. -Glucose controlled -continue high dose sliding scale insulin Q4H -NPO Qualifiers: Qualified Code(s): E11.9 - Type 2 diabetes mellitus without complications (11) Tobacco abuse Current Visit: No Status: Chronic Nicotine patch (12) DVT prophylaxis Current Visit: Yes Status: Acute Heparin SQ Subjective Principal diagnosis: Septic shock Interval history: Patient seen examined at bedside. He is intubated and sedated on mechanical ventilation. There were no overnight events. The patient is still in critical condition with a guarded prognosis requiring 3 vassopressors. Plans to have a family meeting today to discuss plan of care. Possible bronchoscopy this afternoon after family consents. Objective PUL Vital signs: Last Vital Signs Temp 98.3 F 02/03/19 03:00 Pulse 106 02/03/19 07:00 Resp 28 02/03/19 07:00 BP 85/63 02/03/19 07:00 Pulse Ox 96 02/03/19 07:00 General appearance: no acute distress, asleep Eyes: nonicteric ENT: oropharynx moist Neck: supple Effort: normal Auscultation: bilateral: clear Cardiovascular: regular rate and rhythm Gastrointestinal: normoactive bowel sounds, soft Integumentary: other (Thickening of skin of bilateral extremities) Extremities: no edema, pulses normal Musculoskeletal: no deformities unable to assess due to mental status Ventilator Settings Ventilator Settings: Ventilator Settings, Last 8 Hours Ventilator Tidal Volume 530 Setting Ventilator Tidal Volume 530 Setting Ventilator Tidal Volume 530 Setting Ventilator Tidal Volume 530 Setting Ventilator Tidal Volume 530 Setting Ventilator Tidal Volume 530 Setting Ventilator Tidal Volume 530 Setting Ventilator Tidal Volume 530 Setting Ventilator Tidal Volume 530 Setting Ventilator Tidal Volume 530 Setting Ventilator Tidal Volume 530 Setting Ventilator Tidal Volume 530 Setting Ventilator Respiratory Rate 28 Setting Ventilator Respiratory Rate 28 Setting Ventilator Respiratory Rate 28 Setting Ventilator Respiratory Rate 28 Setting Ventilator Respiratory Rate 28 Setting Ventilator Respiratory Rate 28 Setting Ventilator Respiratory Rate 28 Setting Ventilator Respiratory Rate 28 Setting Ventilator Respiratory Rate 28 Setting Ventilator Respiratory Rate 28 Setting Ventilator Respiratory Rate 28 Setting Ventilator Respiratory Rate 28 Setting Actual Respiratory Rate 28 Actual Respiratory Rate 28 Actual Respiratory Rate 28 Actual Respiratory Rate 28 Actual Respiratory Rate 28 Actual Respiratory Rate 28 Actual Respiratory Rate 28 Actual Respiratory Rate 29 Actual Respiratory Rate 29 Actual Respiratory Rate 30 Actual Respiratory Rate 29 Positive End Expiratory 8 Pressure Positive End Expiratory 8 Pressure Positive End Expiratory 8 Pressure Positive End Expiratory 8 Pressure Positive End Expiratory 8 Pressure Positive End Expiratory 8 Pressure Positive End Expiratory 8 Pressure Positive End Expiratory 8 Pressure Positive End Expiratory 8 Pressure Positive End Expiratory 8 Pressure Positive End Expiratory 8 Pressure Positive End Expiratory 8 Pressure Peak Inspiratory Airway 31 Pressure Peak Inspiratory Airway 31 Pressure Peak Inspiratory Airway 31 Pressure Peak Inspiratory Airway 31 Pressure Peak Inspiratory Airway 31 Pressure Peak Inspiratory Airway 31 Pressure Peak Inspiratory Airway 32 Pressure Peak Inspiratory Airway 32 Pressure Peak Inspiratory Airway 32 Pressure Peak Inspiratory Airway 30 Pressure Peak Inspiratory Airway 30 Pressure Results - Laboratory Findings CBC and BMP: 02/03/19 04:15 02/03/19 04:00 ABG ABG pH 7.38 pH Units (7.32-7.45) 02/03/19 04:28 ABG pCO2 36 mmHg (35-45) 02/03/19 04:28 ABG pO2 112 mmHg (85-104) H 02/03/19 04:28 ABG O2 Saturation 98 % (95-98) 02/03/19 04:28 PT/INR, D-dimer PT 17.1 Seconds (9.4-12.1) H 02/03/19 04:00 Abnormal lab findings: Abnormal lab results WBC 15.6 K/mcL (4.3-11.1) H 02/03/19 04:15 RBC 5.57 M/mcL (4.19-5.50) H 02/02/19 03:15 MCH 26.8 pg (28.0-33.3) L 02/03/19 04:15 MCHC 31.0 g/dL (31.6-35.5) L 02/02/19 11:05 RDW 19.6 % (11.5-14.5) H 02/03/19 04:15 Plt Count 60 K/mcL (140-400) L 02/03/19 04:15 Neutrophils # 13.1 K/mcL (1.6-8.9) H 02/03/19 04:15 Lymphocytes # 0.5 K/mcL (0.6-4.6) L 02/02/19 03:15 Monocytes # 1.6 K/mcL (0.0-1.3) H 02/03/19 04:15 Nucleated RBCs/100 WBC 0.2 /100 WBC (0) H 02/03/19 04:15 Platelet Estimate Decreased (Normal) L 02/03/19 04:15 Immature Plt Fraction 17.4 % (1.1-6.1) H 02/03/19 04:15 Polychromasia 1+ (Not Present) A 02/03/19 04:15 PT 17.1 Seconds (9.4-12.1) H 02/03/19 04:00 APTT 46.1 Seconds (26.0-36.0) H 02/01/19 05:06 Heparin Anti-Xa, Unfract 0.25 IU/mL (0.30-0.70) L 02/03/19 04:15 ABG pH 7.31 pH Units (7.32-7.45) L 02/02/19 11:16 ABG pCO2 54 mmHg (35-45) H 02/02/19 04:58 ABG pO2 112 mmHg (85-104) H 02/03/19 04:28 ABG HCO3 29 mEq/L (21-27) H 01/31/19 22:13 ABG Total CO2 27 mEq/L (20-26) H 02/01/19 04:58 ABG O2 Saturation 94 % (95-98) L 02/02/19 11:16 ABG Base Excess -3 mEq/L (-2 to 3) L 02/03/19 04:28 VBG pCO2 32 mmHg (41-51) L 02/01/19 17:38 VBG pO2 209 mmHg (25-50) H 02/01/19 17:38 VBG HCO3 19 mEq/L (21-27) L 02/01/19 17:38 VBG Hematocrit 57.0 % (37.5-50.1) H 02/01/19 17:38 VBG Lactic Acid 3.7 mmol/L (0.5-2.2) H 02/01/19 17:38 Venous Sodium 134 mEq/L (135-145) L 02/01/19 17:38 Sodium 135 mEq/L (136-145) L 02/03/19 04:00 Potassium 5.2 mEq/L (3.5-5.1) H 02/01/19 02:25 Chloride 94 mEq/L (98-107) L 02/01/19 02:25 Carbon Dioxide 19 mEq/L (23-29) L 02/03/19 04:00 BUN 32 mg/dL (6-20) H 02/03/19 04:00 Creatinine 3.92 mg/dL (0.70-1.30) H 02/03/19 04:00 Est GFR ( Amer) 20 (> 60) L 02/03/19 04:00 Est GFR (Non-Af Amer) 16 (> 60) L 02/03/19 04:00 Glucose 161 mg/dL (70-105) H 02/03/19 04:00 Whole Bld Glucose 141 mg/dl (65-95) H 02/01/19 17:38 POC Glucose 128 mg/dL (70-99) H 02/03/19 03:10 Calculated Osmolality 303 (280-300) H 02/01/19 02:25 Calcium 10.4 mg/dL (8.6-10.3) H 01/31/19 19:23 Venous Ioniz Calcium 0.86 mmol/L (1.15-1.35) L 02/02/19 05:46 Phosphorus 5.6 mg/dL (2.7-4.5) H 02/02/19 03:15 Total Bilirubin 4.3 mg/dL (0.3-1.0) H 02/03/19 04:00 Direct Bilirubin 0.5 mg/dL (0.0-0.2) H 01/31/19 19:23 Alkaline Phosphatase 158 Units/L (34-104) H 02/03/19 04:00 Creatine Kinase 1390 Units/L (30-223) H 02/01/19 02:25 Troponin I 0.12 ng/mL (< 0.04) H* 02/01/19 02:25 Serum Total Protein 5.9 g/dL (6.4-8.9) L 02/03/19 04:00 Albumin 2.9 g/dL (3.5-5.7) L 02/03/19 04:00 Albumin/Globulin Ratio 1.0 (1.1-2.2) L 02/03/19 04:00 Lipase 4 Units/L (11-82) L 02/01/19 02:25 Hep Bs Antibody < 3.10 mIU/mL (10.00-) L 02/01/19 13:25 Staph aureus (PCR) DETECTED (Not Detect) A 01/31/19 19:23 mecA-Methicil Res Gene DETECTED (Not Detect) A 01/31/19 19:23 - Microbiology Findings Microbiology Findings: Microbiology, Last 48 Hours 02/01/19 22:36 Blood Culture - Preliminary Peripheral Venipuncture Gram Positive Cocci 02/01/19 22:36 Blood Culture - Preliminary Peripheral Venipuncture Gram Positive Cocci 01/31/19 19:23 Blood Culture - Preliminary Peripheral Venipuncture Gram Positive Cocci 01/31/19 19:23 Blood Culture - Preliminary Peripheral Venipuncture Gram Positive Cocci - Clinical Findings Intake & Output: Intake & Output 02/02/19 02/02/19 02/03/19 15:59 23:59 07:59 Intake Total 1574.0 / 4448.0 1141.7 / 4448.0 1258.7 / 1258.7 Output Total 1690 / 6566 2414 / 6566 2466 / 2466 Balance -116.0 / -2118.0 -1272.3 / -2118.0 -1207.3 / -1207.3 Weight 128.6 kg 128.6 kg 125.7 kg Consult Discharge Plan - Plan Referrals: NONE,PCP [Primary Care Provider] - <Marbella Sam - Last Filed: 02/03/19 19:43> Date of Encounter: 02/03/19 Objective PUL Vital signs: Last Vital Signs Temp 98.5 F 02/03/19 16:00 Pulse 108 02/03/19 19:00 Resp 30 02/03/19 19:00 BP 83/54 02/03/19 19:00 Pulse Ox 30 02/03/19 19:00 Ventilator Settings Ventilator Settings: Ventilator Settings, Last 8 Hours Ventilator Tidal Volume 530 Setting Ventilator Tidal Volume 530 Setting Ventilator Tidal Volume 530 Setting Ventilator Tidal Volume 530 Setting Ventilator Tidal Volume 530 Setting Ventilator Tidal Volume 530 Setting Ventilator Tidal Volume 530 Setting Ventilator Tidal Volume 530 Setting Ventilator Tidal Volume 530 Setting Ventilator Tidal Volume 530 Setting Ventilator Tidal Volume 530 Setting Ventilator Tidal Volume 530 Setting Ventilator Respiratory Rate 28 Setting Ventilator Respiratory Rate 28 Setting Ventilator Respiratory Rate 28 Setting Ventilator Respiratory Rate 28 Setting Ventilator Respiratory Rate 28 Setting Ventilator Respiratory Rate 28 Setting Ventilator Respiratory Rate 28 Setting Ventilator Respiratory Rate 28 Setting Ventilator Respiratory Rate 28 Setting Ventilator Respiratory Rate 28 Setting Ventilator Respiratory Rate 28 Setting Ventilator Respiratory Rate 28 Setting Actual Respiratory Rate 28 Actual Respiratory Rate 28 Actual Respiratory Rate 28 Actual Respiratory Rate 28 Actual Respiratory Rate 28 Actual Respiratory Rate 29 Actual Respiratory Rate 28 Actual Respiratory Rate 28 Actual Respiratory Rate 28 Actual Respiratory Rate 28 Actual Respiratory Rate 28 Actual Respiratory Rate 28 Positive End Expiratory 8 Pressure Positive End Expiratory 8 Pressure Positive End Expiratory 8 Pressure Positive End Expiratory 8 Pressure Positive End Expiratory 8 Pressure Positive End Expiratory 8 Pressure Positive End Expiratory 8 Pressure Positive End Expiratory 8 Pressure Positive End Expiratory 8 Pressure Positive End Expiratory 8 Pressure Positive End Expiratory 8 Pressure Positive End Expiratory 8 Pressure Peak Inspiratory Airway 29 Pressure Peak Inspiratory Airway 29 Pressure Peak Inspiratory Airway 29 Pressure Peak Inspiratory Airway 37 Pressure Peak Inspiratory Airway 37 Pressure Peak Inspiratory Airway 37 Pressure Peak Inspiratory Airway 37 Pressure Peak Inspiratory Airway 37 Pressure Peak Inspiratory Airway 35 Pressure Peak Inspiratory Airway 33 Pressure Peak Inspiratory Airway 33 Pressure Peak Inspiratory Airway 33 Pressure Results - Laboratory Findings CBC and BMP: 02/03/19 04:15 02/03/19 04:00 ABG ABG pH 7.38 pH Units (7.32-7.45) 02/03/19 04:28 ABG pCO2 36 mmHg (35-45) 02/03/19 04:28 ABG pO2 112 mmHg (85-104) H 02/03/19 04:28 ABG O2 Saturation 98 % (95-98) 02/03/19 04:28 PT/INR, D-dimer PT 17.1 Seconds (9.4-12.1) H 02/03/19 04:00 Abnormal lab findings: Abnormal lab results WBC 15.6 K/mcL (4.3-11.1) H 02/03/19 04:15 RBC 5.57 M/mcL (4.19-5.50) H 02/02/19 03:15 MCH 26.8 pg (28.0-33.3) L 02/03/19 04:15 MCHC 31.0 g/dL (31.6-35.5) L 02/02/19 11:05 RDW 19.6 % (11.5-14.5) H 02/03/19 04:15 Plt Count 60 K/mcL (140-400) L 02/03/19 04:15 Neutrophils # 13.1 K/mcL (1.6-8.9) H 02/03/19 04:15 Lymphocytes # 0.5 K/mcL (0.6-4.6) L 02/02/19 03:15 Monocytes # 1.6 K/mcL (0.0-1.3) H 02/03/19 04:15 Nucleated RBCs/100 WBC 0.2 /100 WBC (0) H 02/03/19 04:15 Platelet Estimate Decreased (Normal) L 02/03/19 04:15 Immature Plt Fraction 17.4 % (1.1-6.1) H 02/03/19 04:15 Polychromasia 1+ (Not Present) A 02/03/19 04:15 PT 17.1 Seconds (9.4-12.1) H 02/03/19 04:00 APTT 46.1 Seconds (26.0-36.0) H 02/01/19 05:06 Heparin Anti-Xa, Unfract 0.29 IU/mL (0.30-0.70) L 02/03/19 11:00 ABG pH 7.31 pH Units (7.32-7.45) L 02/02/19 11:16 ABG pCO2 54 mmHg (35-45) H 02/02/19 04:58 ABG pO2 112 mmHg (85-104) H 02/03/19 04:28 ABG HCO3 29 mEq/L (21-27) H 01/31/19 22:13 ABG Total CO2 27 mEq/L (20-26) H 02/01/19 04:58 ABG O2 Saturation 94 % (95-98) L 02/02/19 11:16 ABG Base Excess -3 mEq/L (-2 to 3) L 02/03/19 04:28 VBG pCO2 32 mmHg (41-51) L 02/01/19 17:38 VBG pO2 209 mmHg (25-50) H 02/01/19 17:38 VBG HCO3 19 mEq/L (21-27) L 02/01/19 17:38 VBG Hematocrit 57.0 % (37.5-50.1) H 02/01/19 17:38 VBG Lactic Acid 3.7 mmol/L (0.5-2.2) H 02/01/19 17:38 Venous Sodium 134 mEq/L (135-145) L 02/01/19 17:38 Sodium 135 mEq/L (136-145) L 02/03/19 04:00 Potassium 5.2 mEq/L (3.5-5.1) H 02/01/19 02:25 Chloride 94 mEq/L (98-107) L 02/01/19 02:25 Carbon Dioxide 19 mEq/L (23-29) L 02/03/19 04:00 BUN 32 mg/dL (6-20) H 02/03/19 04:00 Creatinine 3.92 mg/dL (0.70-1.30) H 02/03/19 04:00 Est GFR ( Amer) 20 (> 60) L 02/03/19 04:00 Est GFR (Non-Af Amer) 16 (> 60) L 02/03/19 04:00 Glucose 161 mg/dL (70-105) H 02/03/19 04:00 Whole Bld Glucose 141 mg/dl (65-95) H 02/01/19 17:38 POC Glucose 128 mg/dL (70-99) H 02/03/19 03:10 Calculated Osmolality 303 (280-300) H 02/01/19 02:25 Calcium 10.4 mg/dL (8.6-10.3) H 01/31/19 19:23 Venous Ioniz Calcium 0.86 mmol/L (1.15-1.35) L 02/02/19 05:46 Phosphorus 5.6 mg/dL (2.7-4.5) H 02/02/19 03:15 Total Bilirubin 4.3 mg/dL (0.3-1.0) H 02/03/19 04:00 Direct Bilirubin 0.5 mg/dL (0.0-0.2) H 01/31/19 19:23 Alkaline Phosphatase 158 Units/L (34-104) H 02/03/19 04:00 Creatine Kinase 1390 Units/L (30-223) H 02/01/19 02:25 Troponin I 0.12 ng/mL (< 0.04) H* 02/01/19 02:25 Serum Total Protein 5.9 g/dL (6.4-8.9) L 02/03/19 04:00 Albumin 2.9 g/dL (3.5-5.7) L 02/03/19 04:00 Albumin/Globulin Ratio 1.0 (1.1-2.2) L 02/03/19 04:00 Lipase 4 Units/L (11-82) L 02/01/19 02:25 Hep Bs Antibody < 3.10 mIU/mL (10.00-) L 02/01/19 13:25 Staph aureus (PCR) DETECTED (Not Detect) A 01/31/19 19:23 mecA-Methicil Res Gene DETECTED (Not Detect) A 01/31/19 19:23 - Microbiology Findings Microbiology Findings: Microbiology, Last 48 Hours 02/03/19 08:37 Blood Culture - Preliminary Peripheral Venipuncture Culture is incubating and being continuously monitored for growth. Final report to follow. 02/03/19 07:41 Blood Culture - Preliminary Central Venous Catheter Culture is incubating and being continuously monitored for growth. Final report to follow. 01/31/19 19:23 Blood Culture - Final Peripheral Venipuncture Methicillin Resistant S.aureus 02/01/19 22:36 Blood Culture - Final Peripheral Venipuncture Methicillin Resistant S.aureus 02/01/19 22:36 Blood Culture - Final Peripheral Venipuncture Methicillin Resistant S.aureus 01/31/19 19:23 Blood Culture - Final Peripheral Venipuncture Methicillin Resistant S.aureus - Clinical Findings Intake & Output: Intake & Output 02/03/19 02/03/19 02/03/19 07:59 15:59 23:59 Intake Total 1264.4 / 2857.5 1014.6 / 2857.5 578.5 / 2857.5 Output Total 2466 / 5701 2162 / 5701 1073 / 5701 Balance -1201.6 / -2843.5 -1147.4 / -2843.5 -494.5 / -2843.5 Weight 125.7 kg 125.7 kg 125.7 kg - Attending Attestation Attending Attestation I saw and evaluated this patient and my medical decision-making was reviewed with the Resident Physician. I agree with the documented findings, disposition and treatment plan as described except to the extent set forth below. We independently had [id number] contact with the patient I spent 45 minutes of Critical Care time with this patient. It involved decision making of high complexity to assess, manipulate, and support vital organ system failure and/or to prevent further life threatening deterioration of the patient's condition. The time involved in the performance of separately reportable procedures was not counted toward critical care time. Patient seen and examined at bedside Labs, radiology, chart personally reviewed. Management was reviewed during multidisciplinary critical care rounds. 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 02/03 patient is was likely toxic/metabolic encephalopathy with severe shock combination of septic and cardiogenic shock Pulm: Patient V/Q mismatch is complicated by pneumonia and possible hydrostatic pulmonary edema as patient is a severer systolic congestive heart failure. Cannot do diuresis as patient is in significant septic shock complicated by systolic heart failure. Patient has acceptable oxygenation and ventilation. 02/02 issues acceptable oxygenation and ventilation to continue the low tidal volume strategy cannot diuresis fluid removal significantly. Patient still in septic shock 02/03 patient has acceptable oxygenation and ventilation cannot do diuresis patient is on multiple vasopressor therapy this continue to support with full m echanical ventilation. Arterial blood gas were reviewed settings were reviewed peak and plateau pressures were reviewed Cards: Patient is most likely septic shock complicated by low cardiac output heart failure patient is on triple vasopressor therapy as patient is going on CVVH complicating the picture is atrial fibrillation with rapid ventricular rate not adequately controlled by cardioversion, amiodarone even on digoxin. Doubt that repeat cardioversion will be helpful. To get full echocardiogram to trend troponins. It was an acute coronary event patient will be have poor prognosis patient will not be a cardiac catheterization candidate 02/02 patient had this persistent MRSA bacteremia patient is in septic shock cannot get into the CT scan or CT chest abdomen and pelvis did a transesophageal echocardiogram which did not show any evidence of endocarditis. Once more stable we will send him for CT abdomen pelvis and CT chest. Most likely source would be pneumonia. 02/03 patient underwent transesophageal echocardiogram has today MRSA bacteremia waiting for cultures today. Patient is in severe shock with triple vasopressor therapy we are going up on the norepinephrine as phenylephrine and vasopressin maxed out FEN-GI: Advance diet as toleratted Renal: Labs and output were reviewed patient is on CVVH today ID: To cover with broad-spectrum antibiotics Heme/Onc: Labs reviewed Endo: Glucose Monitored , started on stress dose steroid as patient has refra ctory shock Integ/MSK: Skin Care per routine ICU Nursing Protocol to prevent ulcers. Lines: All lines examined without evidence of infection : Dispo: Critically ill CODE: Full Code
[2019-02-03] MEDS: Chlorhexidine Rinse 15 ML MOUTHWASH MM SCH ×2 (09:09→20:08)
[2019-02-03] MEDS: Nicotine 21 MG PATCH.TD24 TD SCH (09:09)
[2019-02-03] MEDS: Pantoprazole 40 MG VIAL IVP SCH (09:09)
--- NOTE | 2019-02-03 10:09 | Cardiology Progress Note ---
Date of Encounter: 02/03/19 Time of Encounter: 09:00 Assessment and Plan (1) Atrial fibrillation with RVR Current Visit: Yes Status: Acute Atrial fibrillation with RVR in the setting of sepsis, bacteremia, PNA. Agree with amiodarone gtt. If KUB is normal recommend converting to amiodarone 200mg daily. Given IV digoxin during stay. Requiring increased presser support for hypotension. Note HR higher than yesterday. Avg HR around 100 bpm. Continue to monitor. On IV heparin per nephrology for CVVH. Ideally should be on alf AC for atrial fibrillation CVA prevention. Has chronic thrombocytopenia. Continue to monitor. Restart eliquis when taking oral if able. QUIQUE showed no TIM thrombus but sluggish blood flow seen. Cardiology will sign off. Call with questions. (2) Elevated troponin Current Visit: Yes Status: Acute Mild troponin elevation in setting of sepsis and atrial fibrillation with RVR. Suspect demand ischemia. TTE pending. Know NICMP. Per reports [facility] 2008 with no significant disease. (3) Nonischemic cardiomyopathy Current Visit: Yes Status: Chronic Known EF 20%. NICMP. Chronic HFrEF. BLE edema noted. improved from last visit. CXR with no edema. Currently requiring pressor support for hypotension, septic shock. Monitor strict I&O and daily weights. Fluid removal per nephrology. (4) Severe sepsis Current Visit: No Status: Acute Bacteremia. Blood cultures positive MRSA x2. QUIQUE negative for vegetation. Management per primary team. Discussion w patient/family: The assessment and plan as outlined above was discussed with the patient and/or family members who expressed understanding and agreement. All questions were answered. Thank you for involving us in the care of your patient. Please call with any questions. Subjective Principal diagnosis: septic shock, afib Interval history: Mr. Hatch remains intubated/ventilator support, sedated, on pressor support, and CRRT. Sedated and unresponsive. Objective Vital Signs, Last 4 Hours Temp Pulse Resp BP Pulse Ox 02/03/19 09:00 101 28 94/64 96 02/03/19 08:00 99.3 F 107 28 76/55 96 02/03/19 07:35 16 96 02/03/19 07:00 106 28 85/63 96 General: No Apparent Distress, Other (sedated) HEENT: Atraumatic, Normocephaly, Mucus Membranes Moist Cardiac: Other (irregular) Lungs: Other (diminished) Neuro: Other (sedated) Skin: Other (brownish discoloration and hardened skin BLE) Extremities: Other (2-3+ Pitting edema BLE) Results 02/03/19 04:15 02/03/19 04:00 Lab Results 02/02/19 02/02/19 02/02/19 11:05 11:05 23:30 WBC 14.2 H Hgb 14.9 Hct 48.1 Plt Count 67 L 59 L INR 1.7 Sodium Potassium Chloride Carbon Dioxide BUN Creatinine Glucose Calcium Magnesium Total Bilirubin AST ALT Alkaline Phosphatase 02/03/19 02/03/19 02/03/19 04:00 04:00 04:15 WBC 15.6 H Hgb 14.5 Hct 45.3 Plt Count 60 L INR 1.5 Sodium 135 L Potassium 4.8 Chloride 102 Carbon Dioxide 19 L BUN 32 H Creatinine 3.92 H Glucose 161 H Calcium 9.4 Magnesium 2.1 Total Bilirubin 4.3 H AST 38 ALT 20 Alkaline Phosphatase 158 H - Imaging and Cardiology Echo: report reviewed Consult Discharge Plan - Plan Referrals: NONE,PCP [Primary Care Provider] - Cardiac Rehab - Cardiac Rehab Cardiac Rehab: Phase I consult completed. Patient was educated on why Cardiac Rehabilitation is beneficial to his/her health. Participating in a cardiac rehabilitation can improve the following: strengthen your heart, improve ejection fraction, weight reduction, decrease cholesterol levels, lower blood pressure, lower blood sugar, improve stamina, and enhance self-image. If he/she has any questions, they were instructed to call [facility] at [phone].
--- NOTE | 2019-02-03 11:11 | Palliative Progress Note ---
Date of Encounter: 02/03/19 Time of Encounter: 11:03 - Assessment and plan (1) Atrial fibrillation with RVR Current Visit: Yes Status: Acute (2) Shock Current Visit: Yes Status: Acute Assessment and plan: Septic shock, from unknown origin, BCX growing MRSA Pulmonology: possible bronchoscopy if family agreeable. Remains on IV atb therapy, pressors and vent support (3) Advanced care planning/counseling discussion Current Visit: Yes Status: Acute Assessment and plan: Family meeting scheduled by primary team today at 12 pm. 1230: 35 minutes family meeting with myself, Cecy Garcia and Murali, and patient's family: mother, aunt, brother, sister and 2 sons Richar (PEYTON) and Raoul. Discussed current medical condition, trajectory of illness, treatment options and overall extremely poor prognosis. Family demonstrated understanding, however not sure of the choices to make. They were unanimous to continue the current course at least until patient's biological children could arrive in a couple of days. Addressed code status, and explained that pt being already in almost maximal life support, in case of cardiac arrest CPR would not be recommended. Mother was not ready to agree with DNR. Family to discuss among each other and decide. Patient remains FULL CODE in the meantime. Palliative care will continue to follow for further goals of care discussion. (4) End stage renal disease on dialysis Current Visit: Yes Status: Chronic Assessment and plan: Currently on arslan, Nephrology following (5) Nonischemic cardiomyopathy Current Visit: Yes Status: Chronic (6) Palliative care encounter Current Visit: Yes Status: Acute - Time Spent With Patient Total time spent is greater than 50% in coordination of care (as documented) at patient's floor/unit and/or counseling patient: - Subjective Interval history: Patient intubated, on versed and fentanyl, unresponsive to stimuli. Now on 3 pressors, 2 maxed out, on ARSLAN ultrafiltration. BCX on 02/01 and 02/02 growing MRSA. Whie count 15.6. - Constitutional Vitals: Abnormal lab results WBC 15.6 K/mcL (4.3-11.1) H 02/03/19 04:15 RBC 5.57 M/mcL (4.19-5.50) H 02/02/19 03:15 MCH 26.8 pg (28.0-33.3) L 02/03/19 04:15 MCHC 31.0 g/dL (31.6-35.5) L 02/02/19 11:05 RDW 19.6 % (11.5-14.5) H 02/03/19 04:15 Plt Count 60 K/mcL (140-400) L 02/03/19 04:15 Neutrophils # 13.1 K/mcL (1.6-8.9) H 02/03/19 04:15 Lymphocytes # 0.5 K/mcL (0.6-4.6) L 02/02/19 03:15 Monocytes # 1.6 K/mcL (0.0-1.3) H 02/03/19 04:15 Nucleated RBCs/100 WBC 0.2 /100 WBC (0) H 02/03/19 04:15 Platelet Estimate Decreased (Normal) L 02/03/19 04:15 Immature Plt Fraction 17.4 % (1.1-6.1) H 02/03/19 04:15 Polychromasia 1+ (Not Present) A 02/03/19 04:15 PT 17.1 Seconds (9.4-12.1) H 02/03/19 04:00 APTT 46.1 Seconds (26.0-36.0) H 02/01/19 05:06 Heparin Anti-Xa, Unfract 0.25 IU/mL (0.30-0.70) L 02/03/19 04:15 ABG pH 7.31 pH Units (7.32-7.45) L 02/02/19 11:16 ABG pCO2 54 mmHg (35-45) H 02/02/19 04:58 ABG pO2 112 mmHg (85-104) H 02/03/19 04:28 ABG HCO3 29 mEq/L (21-27) H 01/31/19 22:13 ABG Total CO2 27 mEq/L (20-26) H 02/01/19 04:58 ABG O2 Saturation 94 % (95-98) L 02/02/19 11:16 ABG Base Excess -3 mEq/L (-2 to 3) L 02/03/19 04:28 VBG pCO2 32 mmHg (41-51) L 02/01/19 17:38 VBG pO2 209 mmHg (25-50) H 02/01/19 17:38 VBG HCO3 19 mEq/L (21-27) L 02/01/19 17:38 VBG Hematocrit 57.0 % (37.5-50.1) H 02/01/19 17:38 VBG Lactic Acid 3.7 mmol/L (0.5-2.2) H 02/01/19 17:38 Venous Sodium 134 mEq/L (135-145) L 02/01/19 17:38 Sodium 135 mEq/L (136-145) L 02/03/19 04:00 Potassium 5.2 mEq/L (3.5-5.1) H 02/01/19 02:25 Chloride 94 mEq/L (98-107) L 02/01/19 02:25 Carbon Dioxide 19 mEq/L (23-29) L 02/03/19 04:00 BUN 32 mg/dL (6-20) H 02/03/19 04:00 Creatinine 3.92 mg/dL (0.70-1.30) H 02/03/19 04:00 Est GFR ( Amer) 20 (> 60) L 02/03/19 04:00 Est GFR (Non-Af Amer) 16 (> 60) L 02/03/19 04:00 Glucose 161 mg/dL (70-105) H 02/03/19 04:00 Whole Bld Glucose 141 mg/dl (65-95) H 02/01/19 17:38 POC Glucose 128 mg/dL (70-99) H 02/03/19 03:10 Calculated Osmolality 303 (280-300) H 02/01/19 02:25 Calcium 10.4 mg/dL (8.6-10.3) H 01/31/19 19:23 Venous Ioniz Calcium 0.86 mmol/L (1.15-1.35) L 02/02/19 05:46 Phosphorus 5.6 mg/dL (2.7-4.5) H 02/02/19 03:15 Total Bilirubin 4.3 mg/dL (0.3-1.0) H 02/03/19 04:00 Direct Bilirubin 0.5 mg/dL (0.0-0.2) H 01/31/19 19:23 Alkaline Phosphatase 158 Units/L (34-104) H 02/03/19 04:00 Creatine Kinase 1390 Units/L (30-223) H 02/01/19 02:25 Troponin I 0.12 ng/mL (< 0.04) H* 02/01/19 02:25 Serum Total Protein 5.9 g/dL (6.4-8.9) L 02/03/19 04:00 Albumin 2.9 g/dL (3.5-5.7) L 02/03/19 04:00 Albumin/Globulin Ratio 1.0 (1.1-2.2) L 02/03/19 04:00 Lipase 4 Units/L (11-82) L 02/01/19 02:25 Hep Bs Antibody < 3.10 mIU/mL (10.00-) L 02/01/19 13:25 Staph aureus (PCR) DETECTED (Not Detect) A 01/31/19 19:23 mecA-Methicil Res Gene DETECTED (Not Detect) A 01/31/19 19:23 Exam: General appearance: Present: no acute distress - Respiratory Additional comments: Rhonchi decreased from yesterday. Remains intubated with vent support. - Cardiovascular Cardiovascular exam: Present: tachycardia - GI/Abdominal GI/Abdominal exam: Present: distended, soft - Extremities Exam Additional comments: Lower extremities with 2-3+ edema, bilateral feet calloused - Neurological Exam Additional comments: Sedated on vent - Skin Skin exam: Present: dry, warm Palliative Quality Palliative Quality: Screen for Code Status: Yes, Screen for Goals of Care: Yes, Screen for Pain: NA, If Pain Regimen Started, Initiate Bowel Regimen: NA, Screen for Nausea/Vomitting: NA Code Status: 02/01/19 00:46 Resuscitation Status: Active [RES] Routine Comment: Resuscitation Status: Full Code - Labs CBC & Chem 7: 02/03/19 04:15 02/03/19 04:00 Labs: Laboratory Results - last 24 hr 02/02/19 02/02/19 02/02/19 03:19 07:48 11:05 WBC 14.2 H RBC 5.48 Hgb 14.9 Hct 48.1 MCV 87.8 MCH 27.2 L MCHC 31.0 L RDW 19.3 H Plt Count 67 L MPV TNP Immature Gran % Seg Neutrophils % Lymphocytes % Monocytes % Eosinophils % Basophils % Neutrophils # Lymphocytes # Monocytes # Eosinophils # Basophils # Nucleated RBCs/100 WBC Platelet Estimate Immature Plt Fraction 18.7 H Polychromasia PT INR Heparin Anti-Xa, Unfract Sample Site ABG pH ABG pCO2 ABG pO2 ABG HCO3 ABG Total CO2 ABG O2 Saturation ABG Base Excess Eliot Test Respiration Rate O2 Delivery Device Blood Gas Modality Inspired O2 Tidal Volume PEEP Sodium Potassium Chloride Carbon Dioxide BUN Creatinine Est GFR ( Amer) Est GFR (Non-Af Amer) BUN/Creatinine Ratio Glucose POC Glucose 98 132 H Calculated Osmolality Lactic Acid Calcium Phosphorus Magnesium Total Bilirubin AST ALT Alkaline Phosphatase Serum Total Protein Albumin Globulin Albumin/Globulin Ratio Random Vancomycin 02/02/19 02/02/19 02/02/19 11:05 11:16 11:27 WBC RBC Hgb Hct MCV MCH MCHC RDW Plt Count MPV Immature Gran % Seg Neutrophils % Lymphocytes % Monocytes % Eosinophils % Basophils % Neutrophils # Lymphocytes # Monocytes # Eosinophils # Basophils # Nucleated RBCs/100 WBC Platelet Estimate Immature Plt Fraction Polychromasia PT 19.5 H INR 1.7 Heparin Anti-Xa, Unfract 0.05 L Sample Site ABG pH 7.31 L ABG pCO2 44 ABG pO2 76 L ABG HCO3 22 ABG Total CO2 23 ABG O2 Saturation 94 L ABG Base Excess -5 L Eliot Test Respiration Rate 28 O2 Delivery Device Adult Vent Blood Gas Modality Inspired O2 60.0 Tidal Volume 530 PEEP 8 Sodium Potassium Chloride Carbon Dioxide BUN Creatinine Est GFR ( Amer) Est GFR (Non-Af Amer) BUN/Creatinine Ratio Glucose POC Glucose 145 H Calculated Osmolality Lactic Acid Calcium Phosphorus Magnesium Total Bilirubin AST ALT Alkaline Phosphatase Serum Total Protein Albumin Globulin Albumin/Globulin Ratio Random Vancomycin 02/02/19 02/02/19 02/02/19 15:21 17:11 19:28 WBC RBC Hgb Hct MCV MCH MCHC RDW Plt Count MPV Immature Gran % Seg Neutrophils % Lymphocytes % Monocytes % Eosinophils % Basophils % Neutrophils # Lymphocytes # Monocytes # Eosinophils # Basophils # Nucleated RBCs/100 WBC Platelet Estimate Immature Plt Fraction Polychromasia PT INR Heparin Anti-Xa, Unfract 0.18 L Sample Site ABG pH ABG pCO2 ABG pO2 ABG HCO3 ABG Total CO2 ABG O2 Saturation ABG Base Excess Eliot Test Respiration Rate O2 Delivery Device Blood Gas Modality Inspired O2 Tidal Volume PEEP Sodium Potassium Chloride Carbon Dioxide BUN Creatinine Est GFR ( Amer) Est GFR (Non-Af Amer) BUN/Creatinine Ratio Glucose POC Glucose 146 H 119 H Calculated Osmolality Lactic Acid Calcium Phosphorus Magnesium Total Bilirubin AST ALT Alkaline Phosphatase Serum Total Protein Albumin Globulin Albumin/Globulin Ratio Random Vancomycin 02/02/19 02/02/19 02/02/19 21:00 23:16 23:28 WBC RBC Hgb Hct MCV MCH MCHC RDW Plt Count MPV Immature Gran % Seg Neutrophils % Lymphocytes % Monocytes % Eosinophils % Basophils % Neutrophils # Lymphocytes # Monocytes # Eosinophils # Basophils # Nucleated RBCs/100 WBC Platelet Estimate Immature Plt Fraction Polychromasia PT INR Heparin Anti-Xa, Unfract 0.31 Sample Site ABG pH ABG pCO2 ABG pO2 ABG HCO3 ABG Total CO2 ABG O2 Saturation ABG Base Excess Eliot Test Respiration Rate O2 Delivery Device Blood Gas Modality Inspired O2 Tidal Volume PEEP Sodium Potassium Chloride Carbon Dioxide BUN Creatinine Est GFR ( Amer) Est GFR (Non-Af Amer) BUN/Creatinine Ratio Glucose POC Glucose 119 H Calculated Osmolality Lactic Acid Calcium Phosphorus Magnesium Total Bilirubin AST ALT Alkaline Phosphatase Serum Total Protein Albumin Globulin Albumin/Globulin Ratio Random Vancomycin 26 02/02/19 02/03/19 02/03/19 23:30 03:10 04:00 WBC RBC Hgb Hct MCV MCH MCHC RDW Plt Count 59 L MPV Immature Gran % Seg Neutrophils % Lymphocytes % Monocytes % Eosinophils % Basophils % Neutrophils # Lymphocytes # Monocytes # Eosinophils # Basophils # Nucleated RBCs/100 WBC Platelet Estimate Immature Plt Fraction Polychromasia PT 17.1 H INR 1.5 Heparin Anti-Xa, Unfract Sample Site ABG pH ABG pCO2 ABG pO2 ABG HCO3 ABG Total CO2 ABG O2 Saturation ABG Base Excess Eliot Test Respiration Rate O2 Delivery Device Blood Gas Modality Inspired O2 Tidal Volume PEEP Sodium Potassium Chloride Carbon Dioxide BUN Creatinine Est GFR ( Amer) Est GFR (Non-Af Amer) BUN/Creatinine Ratio Glucose POC Glucose 128 H Calculated Osmolality Lactic Acid Calcium Phosphorus Magnesium Total Bilirubin AST ALT Alkaline Phosphatase Serum Total Protein Albumin Globulin Albumin/Globulin Ratio Random Vancomycin 02/03/19 02/03/19 02/03/19 04:00 04:15 04:15 WBC 15.6 H RBC 5.41 Hgb 14.5 Hct 45.3 MCV 83.7 MCH 26.8 L MCHC 32.0 RDW 19.6 H Plt Count 60 L MPV TNP Immature Gran % 1.0 Seg Neutrophils % 84.2 Lymphocytes % 4.2 Monocytes % 10.1 Eosinophils % 0.2 Basophils % 0.3 Neutrophils # 13.1 H Lymphocytes # 0.7 Monocytes # 1.6 H Eosinophils # 0.0 Basophils # 0.1 Nucleated RBCs/100 WBC 0.2 H Platelet Estimate Decreased L Immature Plt Fraction 17.4 H Polychromasia 1+ A PT INR Heparin Anti-Xa, Unfract 0.25 L Sample Site ABG pH ABG pCO2 ABG pO2 ABG HCO3 ABG Total CO2 ABG O2 Saturation ABG Base Excess Eliot Test Respiration Rate O2 Delivery Device Blood Gas Modality Inspired O2 Tidal Volume PEEP Sodium 135 L Potassium 4.8 Chloride 102 Carbon Dioxide 19 L BUN 32 H Creatinine 3.92 H Est GFR ( Amer) 20 L Est GFR (Non-Af Amer) 16 L BUN/Creatinine Ratio 8 Glucose 161 H POC Glucose Calculated Osmolality 290 Lactic Acid Calcium 9.4 Phosphorus 2.8 Magnesium 2.1 Total Bilirubin 4.3 H AST 38 ALT 20 Alkaline Phosphatase 158 H Serum Total Protein 5.9 L Albumin 2.9 L Globulin 3.0 Albumin/Globulin Ratio 1.0 L Random Vancomycin 02/03/19 02/03/19 02/03/19 04:28 08:03 08:03 WBC RBC Hgb Hct MCV MCH MCHC RDW Plt Count MPV Immature Gran % Seg Neutrophils % Lymphocytes % Monocytes % Eosinophils % Basophils % Neutrophils # Lymphocytes # Monocytes # Eosinophils # Basophils # Nucleated RBCs/100 WBC Platelet Estimate Immature Plt Fraction Polychromasia PT INR Heparin Anti-Xa, Unfract Sample Site Art Line ABG pH 7.38 ABG pCO2 36 ABG pO2 112 H ABG HCO3 21 ABG Total CO2 22 ABG O2 Saturation 98 ABG Base Excess -3 L Eliot Test N/A Respiration Rate 28 O2 Delivery Device Adult Vent Blood Gas Modality PRVC Inspired O2 60.0 Tidal Volume 530 PEEP 8 Sodium Potassium Chloride Carbon Dioxide BUN Creatinine Est GFR ( Amer) Est GFR (Non-Af Amer) BUN/Creatinine Ratio Glucose POC Glucose Calculated Osmolality Lactic Acid 2.0 Calcium Phosphorus Magnesium Total Bilirubin AST ALT Alkaline Phosphatase Serum Total Protein Albumin Globulin Albumin/Globulin Ratio Random Vancomycin 20 - Impressions Impressions Chest X-Ray 02/03/19 08:27 IMPRESSION: Improving aeration of the lungs with some residual left basilar and right upper lobe atelectasis. D/ / 02/03/2019 09:52:03 Jorge Luis Lu MD / mitchell Interpreting Provider: Jorge Luis Lu MD KUB X-Ray 02/03/19 08:28 IMPRESSION: No evidence of bowel obstruction. D/ / 02/03/2019 09:52:27 Jorge Luis Lu MD / elva Interpreting Provider: Jorge Luis Lu MD - ABG Interpretation ABG results: ABG ABG pH 7.38 pH Units (7.32-7.45) 02/03/19 04:28 ABG pCO2 36 mmHg (35-45) 02/03/19 04:28 ABG pO2 112 mmHg (85-104) H 02/03/19 04:28 ABG O2 Saturation 98 % (95-98) 02/03/19 04:28 PT/INR, D-dimer PT 17.1 Seconds (9.4-12.1) H 02/03/19 04:00 Consult Discharge Plan - Plan Referrals: NONE,PCP [Primary Care Provider] -
[2019-02-03] MEDS: Amiodarone Premix 360 MG/200 ML BAG IVC SCH ×2 (11:20→23:04)
[2019-02-03] MEDS: Vasopressin 40 UNIT in D5% in Water 100 ML IVC SCH (13:00)
--- NOTE | 2019-02-03 13:27 | Nephrology Progress Note ---
Date of Encounter: 02/03/19 Time of Encounter: 13:22 - Assessment and Plan (1) End stage renal disease Current Visit: No Status: Chronic Patient on dialysis Wednesday schedule, but questionable whether patient was able to make Wednesday session. Currently requiring three pressors in order to keep blood pressure stabilized preventing HD Right Femoral temporary catheter placed by IR -CVV HDF continues at a rate of 120 ml/hr due to pt hypotension -24 hour I&Os of -4 L -Femoral line clean and intact. Pt 2/2 blood cultures positive for MRSA b acteremia prior to placement of lines. Will need to be removed. -Continue to limit unnecesary fluid use -Strict I&Os -Daily weights (2) Rhabdomyolysis Current Visit: Yes Status: Acute Patient found down at home for unknown period of time CK of 1210 on admission up to 1390 Given IV hydration in ED Ca of 9.4 Phosphorus of 2.8 Potassium of 4.8 -Continue to monitor P, K, and Ca -Currently requiring CRRT -Repeat CK on 02/04 Qualifiers: Rhabdomyolysis type: non-traumatic Qualified Code(s): M62.82 - Rhabdomyolysis (3) Thrombocytopenia Current Visit: Yes Status: Acute Pt with platelet count on admission of 72, which has continued to decrease to 60 on 02/03 -d/c heparin drip (4) Hyperkalemia Current Visit: Yes Status: Resolved Potassium of 5.3 on admission Questionable if pt was able to make diaylsis appointment on Wednesday In setting of Rhabdomyolysis K of 4.3 02/02 -K of 4.8 02/03 -CRRT therapy with 4/2.5 -Continue to monitor (5) Hyperphosphatemia Current Visit: No Status: Resolved Phosphorus of 7.8 on admission Phosphorus of 5.6 on 02/02/19 after starting CRRT -CRRT continued -Phosphorus of 2.8 on 02/03 -May continue to drop due to CRRT therapy will need to monitor for possible need for replacement (6) Bacteremia Current Visit: Yes Status: Acute Blood cultures from both 01/31 and 02/01 positive for MRSA Temporary dialysis catheter placed on 02/01 Currently on vancomycin and Zosyn for antibiotic therapy QUIQUE performed shows no sign of endocarditis -Repeat blood cultures pending -Continue to monitor temporary dialysis catheter -We will need replacement if necessary for over 1 week. Subjective Principal diagnosis: Septic shock Interval history: Patient intubated and sedated. Objective - Vital Signs Vital signs: Vital Signs Temp Pulse Resp BP Pulse Ox 02/03/19 13:00 112 28 82/52 96 02/03/19 12:00 99.6 F 112 28 84/52 96 02/03/19 11:50 17 81/53 95 02/03/19 11:00 110 28 72/48 96 02/03/19 10:00 106 28 85/56 96 02/03/19 09:30 16 96 02/03/19 09:00 101 28 94/64 96 02/03/19 08:00 99.3 F 107 28 76/55 96 02/03/19 07:35 16 96 02/03/19 07:00 106 28 85/63 96 02/03/19 06:00 104 28 80/58 95 02/03/19 05:35 28 82/58 95 02/03/19 05:00 117 28 88/63 96 02/03/19 04:00 109 28 101/71 95 02/03/19 03:18 28 82/60 96 02/03/19 03:06 99 02/03/19 03:00 98.3 F 107 28 85/60 96 02/03/19 02:00 103 29 85/59 96 02/03/19 01:37 29 90/61 96 02/03/19 01:00 111 30 81/54 97 02/03/19 00:00 98.6 F 107 29 80/55 97 02/02/19 23:12 28 117/67 98 02/02/19 23:09 106 02/02/19 23:00 104 28 63/43 96 02/02/19 22:00 104 28 82/54 96 02/02/19 21:29 29 88/57 96 02/02/19 21:00 101 28 81/56 96 02/02/19 20:00 98.4 F 94 30 99/66 97 02/02/19 19:39 101 02/02/19 19:38 28 87/57 97 02/02/19 19:00 99 28 77/53 96 02/02/19 18:00 95 29 72/51 96 02/02/19 17:32 30 85/58 96 02/02/19 17:00 94 28 82/58 96 02/02/19 16:00 97 F L 91 28 95/67 97 02/02/19 15:56 88 02/02/19 15:47 28 95/67 97 02/02/19 15:00 94 28 104/75 96 02/02/19 14:00 91 28 91/64 96 02/02/19 13:30 28 89/63 96 Intake and Output 02/02/19 02/03/19 02/03/19 23:59 07:59 15:59 Intake Total 1141.7 / 4448.0 1264.4 / 2007.3 743.9 / 2007.3 Output Total 2414 / 6566 2466 / 4086 1620 / 4086 Balance -1272.3 / -2118.0 -1201.6 / -2077.7 -876.1 / -2077.7 Intake: IV Fluids 1141.7 / 4448.0 1264.4 / 2007.3 743.9 / 2007.3 PrismaSATE BGK 4/2.5 5,000 ML @ 0 / 0 0 / 0 1500 mls/hr CRRT CONT [facility] Rx#: [id number] Amiodarone Drip Premix 360mg/ 122.0 / 463.2 131.3 / 200.0 68.7 / 200.0 200mL 360 mg In 200 ml @ 0.5 MG /MIN 16.667 mls/hr IVC [facility] Rx#:[id number] FentaNYL (PF) 1,000 MCG In 0.9 134.8 / 437.7 137.4 / 186.8 49.4 / 186.8 % Sodium Chloride 80 ML @ 50 MCG/HR 5 mls/hr IVC [facility] Rx #:[id number] Heparin 25,000 UNIT/250 ML D5W 133 / 133 225 / 367 142 / 367 25,000 unit In 250 ml @ 14 UNIT /KG/HR 18.004 mls/hr IVC . [id number] [facility] Rx#:[id number] Versed 50 MG In 0.9 % Sodium 100.0 / 353.7 100.0 / 100.0 Chloride 90 ML @ 2 MG/HR 4 mls/ hr IVC [facility] Rx#:[id number] Levophed 8 MG In 0.9 % Sodium 118.4 / 458.5 206.8 / 340.6 133.8 / 340.6 Chloride 250 ML @ 0.5 MCG/MIN 0 .968 mls/hr IVC [facility] Rx#: [id number] Phenylephrine 50 MG In 0.9 % 386.4 / 1280.2 428.7 / 678.7 250 / 678.7 Sodium Chloride 250 ML @ 100 MCG/MIN 30.6 mls/hr IVC [facility] Rx#:[id number] Vasostrict 40 UNIT In Dextrose 32.1 / 111.0 35.2 / 35.2 5% 100 ML @ 0.03 UNIT/MIN 4.59 mls/hr IVC .[id number] [facility] Rx#: [id number] Zosyn 3.375 GM In 0.9 % Sodium 115 / 400.0 100 / 100 Chloride (Mini-Bag +) 100 ML @ 25 mls/hr IVPB Q8H [facility] Rx#: [id number] Oral 0 / 0 0 / 0 Output: Rectal Tube 200 / 200 200 / 200 0 / 200 Catheter 0 / 0 0 / 0 0 / 0 Gastric Drainage 0 / 100 0 / 0 0 / 0 Fluid Removed by Prismaflex 2214 / 6266 2266 / 3886 1620 / 3886 Other: Weight 128.6 kg 125.7 kg 125.7 kg Blood Glucose* 119 119 141 Patient Weight 02/03/19 23:59 Weight 125.7 kg - General Appearance Exam: General appearance: obese, chronically ill, intubated HEENT: ET tube is in place. No evidence of scleral icterus. Neck: no thyromegaly. No adenopathy Respiratory: clear Cardiology: irregular rhythm. HR controlled around 90. Gastrointestinal: normoactive bowel sounds, obese. distended Ext: Chronic venous stasis changes to bilateral lower extremities with darkening of the skin and hardening appears slightly softened today with 3+ pitting edema. Warmth over the dorsal aspect of the right foot. Left arm with graft in place but no evidence of thrill and warmth over the overlying skin. Skin: Left foot with venous-appearing ulceration on the plantar surface. Bilateral lower extremities with extensive chronic venous stasis changes. 2+ pitting edema. Neuro/Psych: Unable to obtain as patient is currently sedated and intubated. Dialysis Vascular Access: Arteriovenous Graft thrill: No bruit: No Gastrointestinal: Present: normoactive bowel sounds, obese, distended - Lab 02/03/19 04:15 02/03/19 04:00 Most recent lab results 02/03/19 02/03/19 04:00 04:28 ABG pH 7.38 ABG pCO2 36 ABG pO2 112 H ABG HCO3 21 ABG O2 Saturation 98 Calcium 9.4 Phosphorus 2.8 Magnesium 2.1 Consult Discharge Plan - Plan Referrals: NONE,PCP [Primary Care Provider] -
--- NOTE | 2019-02-03 13:27 | Internal Med Progress Note ---
Hospitalist Progress Note - Encounter Date of Encounter: 02/03/19 Time of Encounter: 13:24 - Subjective Interval History: This is an extremely complicated 48-year-old -[place]amese male with multiple medical problems including noncompliance, end-stage renal disease on hemodialysis on Wednesday, atrial fibrillation on , chronic systolic CHF, diabetes mellitus, hypertension, hyperlipidemia, marijuana abuse. Patient was found disheveled, at home, covered in feces, with altered mental status. He was brought to the emergency room where he was noted to be hypotensive, with A. fib with RVR. Electrocardioversion was attempted twice, without success. Patient was subsequently intubated. He had a central line placed in his right groin, as well as an arterial line. He was given aggressive IV fluids per sepsis protocol, then started on vasopressor therapy and admitted to our intensive care unit. As the patient is currently intubated and sedated. He is on epinephrine as well as phenylephrine. He remains on broad-spectrum antibiotics with Zosyn and vancomycin. Of note 202 blood cultures are growing out gram-positive cocci. With regards to his atrial fibrillation he remains on an amiodarone drip, as well as IV digoxin. Cardiology is following as well as nephrology. Patient had a temporary dialysis catheter placed this afternoon. Does have a left arm AV fistula which is nonfunctional. CRRT is planned this afternoon. Patient is also noted to have an elevated CK, currently 1390, likely related to being down underground for none known duration of time. 02/02: Patient is improved since last night. We have weaned down norepinephrine with subsequent improvement in his heart rate. He is also undergoing CRRT with 2 L of fluid removed overnight. Patient remains nonresponsive on ventilator support. He is sedated. We did do an ultrasound of his left AV fistula which showed no obvious abscess or fluid collection. Podiatry has been consulted to evaluate his feet for possible bowel infection. Patient's repeat blood cultures from February 01 again are positive for gram-positive cocci 2. Patient con tinues on broad-spectrum antibiotics with Zosyn and vancomycin. Patient's echo showed EF of 20%, with severe dilated left ventricle, mild to moderate tricuspid regurgitation but poor visualization of the right ventricle. No obvious vegetations seen. Patient CK remains elevated at 1390. 02/03: Patient continues on 3 vasoactive agents to maintain blood pressure. He remains on full ventilatory support, fully sedated. Patient had a QUIQUE done yesterday which showed no obvious endocarditis. Podiatry did examine his feet and felt that there was not an acute infection. She remains on broad-spectrum antibiotics in the form of Zosyn, as well as vancomycin for MRSA bacteremia. Patient's heart rate has improved to the 80s. He continues on CRRT therapy. Today we had a extensive greater than 30 minute family meeting with myself, Dr. Bolton, Dr. Sam, palliative care, nursing staff, and multiple family members. Family is aware of Eduar's condition, presently he still remains a full code but they are evaluating his situation. Patient unable to provide any review of systems as he is sedated - Exam Vitals: Temp Pulse Resp BP Pulse Ox 99.6 F 112 28 82/52 96 02/03/19 12:00 02/03/19 13:00 02/03/19 13:00 02/03/19 13:00 02/03/19 13:00 Exam: General: intubated, sedated, appears comfortable HEENT: head normocephalic/atraumatic, pupils equally round and with sluggish reaction to light, sclera anicteric Neck: Supple, no lymphadenopathy Cardio: irreg, nml rate, no murmurs, +S1/S2 Pulm: Coarse breath sounds bilaterally, on mechanical ventilation Abdomen: Soft, distended with fluid wave,+ bs nut dimin Extremities: 3+ pitting edema BLE extending above chilel, no cyanosis, Left Fem TLC Neuro: unable to fully assess neuro status due to intubation and sedation MSK: no joint swelling or joint erythema, AV fistulae of left forearm noted Skin: very dry, chronic venous stasis discoloration, intact. Patient has a half-dollar ulcer, scabbed over on plantar aspect of left foot. Both feet are edematous with severe chronic venous stasis changes. Both feet are swollen Patient has AV fistula site on his left anterior forearm without a palpable thrill, it appears mildly indurated there some scabbing over it Psych: unable to assess - Summary of Assessment and Plan Summary of Assessment and Plan: Septic shock -Suspect due to MRSA bacteremia -Continue broad-spectrum antibiotics however given potential other sources of infection -Patient is currently taking #3 Zosyn, vancomycin -Norepi, Kee, Vasopressin for hypotension -?component of cardiogenic shock, defer to cardiology if Milrinone would benefit MRSA bacteremia -Multiple potential sources -Patient has an ulcer on the plantar aspect of his left foot, also multiple skin wounds -His AV fistula is nonfunctional and somewhat indurated, this is also a potential source, will check an ultrasound -? History of IV drug abuse -? Due to poor dentition - will likely need a transesophageal echocardiogram to r/o vegetation -Patient did receive vancomycin in the emergency room, this will likely be in his system for at least 48 hours, pharmacy consultation for further dosing -Repeat blood cultures ordered today. Bld cx from 01/31 and 02/01 are all 2/2 positive MRSA Afib w RVR -on amiodarone,failed cardioversion 2 -Cardiology following -was on NOAC at home 02/02: Heart rate now improved, heparin drip started for stroke prevention Nonishcemic Cardiomyopathy, chronic systolic CHF -EF 20% -cardiology following Altered Mental status -Multifactorial likely due to sepsis,? Cerebral hypoperfusion -CT scan showed no evidence of acute stroke. No obvious seizure activity noted. -No new level is normal, PCO2 is not significantly elevated -Continue to closely monitor -check drug screen End-stage renal disease -CRRT as I discussed with Dr. Joaquin today -Avoid nephrotoxins as best able, monitor electrolytes Hyperkalemia, hyperphosphatemia -CRRT should help correct Mild rhabdomyolysis -Continue to monitor CK -CK is not markedly elevated on not convinced this is significantly contributing to his current illness however we will monitor levels Polysubstance drug abuse Morbid Obesity Chronic venous stasis DVT prophylaxis -subQ heparin Extensive discussion with family as outlined above - Time Spent with Patient Total time spent is greater than 50% in coordination of care (as documented) at patient's floor/unit and/or counseling patient: Greater than 35 minutes Internal Medicine: Result - Labs CBC & Chem 7: 02/03/19 04:15 02/03/19 04:00 Labs: Short CBC 02/02/19 02/03/19 Range/Units 23:30 04:15 WBC 15.6 H (4.3-11.1) K/mcL Hgb 14.5 (12.9-16.9) g/dL Hct 45.3 (37.5-50.1) % Plt Count 59 L 60 L (140-400) K/mcL Neutrophils # 13.1 H (1.6-8.9) K/mcL BMP 02/03/19 04:00 Sodium 135 L Potassium 4.8 Chloride 102 Carbon Dioxide 19 L BUN 32 H Creatinine 3.92 H Glucose 161 H Calcium 9.4 Liver Function 02/03/19 Range/Units 04:00 Total Bilirubin 4.3 H (0.3-1.0) mg/dL AST 38 (13-39) Units/L ALT 20 (7-52) Units/L Alkaline Phosphatase 158 H (34-104) Units/L Albumin 2.9 L (3.5-5.7) g/dL - ABG Interpretation ABG results: ABG ABG pH 7.38 pH Units (7.32-7.45) 02/03/19 04:28 ABG pCO2 36 mmHg (35-45) 02/03/19 04:28 ABG pO2 112 mmHg (85-104) H 02/03/19 04:28 ABG O2 Saturation 98 % (95-98) 02/03/19 04:28 PT/INR, D-dimer PT 17.1 Seconds (9.4-12.1) H 02/03/19 04:00 - Impressions Impressions KUB X-Ray 02/01/19 12:52 IMPRESSION: Vascular access catheter placements. D/ / 02/01/2019 13:22:44 Benson Ronquillo MD / [facility] Interpreting Provider: Benson Ronquillo MD Chest X-Ray 02/03/19 08:27 IMPRESSION: Improving aeration of the lungs with some residual left basilar and right upper lobe atelectasis. D/ / 02/03/2019 09:52:03 Jorge Luis Lu MD / mitchell Interpreting Provider: Jorge Luis Lu MD X-Ray 02/03/19 08:28 IMPRESSION: No evidence of bowel obstruction. D/ / 02/03/2019 09:52:27 Jorge Luis Lu MD / elva Interpreting Provider: Jorge Luis Lu MD Consult Discharge Plan - Plan Referrals: NONE,PCP [Primary Care Provider] -
--- NOTE | 2019-02-03 15:10 | Podiatry Progress Note ---
Date of Encounter: 02/03/19 Time of Encounter: 14:20 - Assessment and Plan (1) Callus of foot Current Visit: Yes Status: Acute Assessment: -Stable and chronic callus noted to left plantar medial midfoot and left distal hallux -No erythema or signs of abscess -No drainage noted -Stage I pressure ulcer to right heel -Xerosis noted bilateral lower extremities -WBC 15.6 -Blood cultures x 2 01/31/19 and 02/01/19 final MRSA, blood cultures 02/03/2019 preliminary -Right ankle x-ray showed evidence of advanced neuropathic arthropathy of the midfoot with bony fragmentation, debris, and dislocations, these findings are consistent with previous studies. Plan: -At this time it is not felt the calluses are the source of infection, will continue to monitor and if patient begins to stabilize may consider further imagining of lower extremities -Please place pillows under lower legs to keep bilateral heels off of bed at all times Subjective Principal diagnosis: Septic shock Interval history: Patient remains unresponsive intubated with sedation and on Lilly. On three pressor agents to maintain pressure. Objective - Vital Signs Vital Signs: Vital Signs Temp Pulse Resp BP Pulse Ox 02/03/19 15:00 106 28 95/61 96 02/03/19 14:00 107 28 86/55 96 02/03/19 13:30 28 82/52 96 02/03/19 13:00 112 28 82/52 96 02/03/19 12:00 99.6 F 112 28 84/52 96 02/03/19 11:50 17 81/53 95 02/03/19 11:00 110 28 72/48 96 02/03/19 10:00 106 28 85/56 96 02/03/19 09:30 16 96 02/03/19 09:00 101 28 94/64 96 02/03/19 08:00 99.3 F 107 28 76/55 96 02/03/19 07:35 16 96 02/03/19 07:00 106 28 85/63 96 02/03/19 06:00 104 28 80/58 95 02/03/19 05:35 28 82/58 95 02/03/19 05:00 117 28 88/63 96 02/03/19 04:00 109 28 101/71 95 02/03/19 03:18 28 82/60 96 02/03/19 03:06 99 02/03/19 03:00 98.3 F 107 28 85/60 96 02/03/19 02:00 103 29 85/59 96 02/03/19 01:37 29 90/61 96 02/03/19 01:00 111 30 81/54 97 02/03/19 00:00 98.6 F 107 29 80/55 97 02/02/19 23:12 28 117/67 98 02/02/19 23:09 106 02/02/19 23:00 104 28 63/43 96 02/02/19 22:00 104 28 82/54 96 02/02/19 21:29 29 88/57 96 02/02/19 21:00 101 28 81/56 96 02/02/19 20:00 98.4 F 94 30 99/66 97 02/02/19 19:39 101 02/02/19 19:38 28 87/57 97 02/02/19 19:00 99 28 77/53 96 02/02/19 18:00 95 29 72/51 96 02/02/19 17:32 30 85/58 96 02/02/19 17:00 94 28 82/58 96 02/02/19 16:00 97 F L 91 28 95/67 97 02/02/19 15:56 88 02/02/19 15:47 28 95/67 97 Intake and Output 02/02/19 02/03/19 02/03/19 23:59 07:59 15:59 Intake Total 1141.7 / 4448.0 1264.4 / 2029.0 764.6 / 2029.0 Output Total 2414 / 6566 2466 / 4628 2162 / 4628 Balance -1272.3 / -2118.0 -1201.6 / -2599.0 -1397.4 / -2599.0 Intake: IV Fluids 1141.7 / 4448.0 1264.4 / 2029.0 764.6 / 2029.0 PrismaSATE BGK 4/2.5 5,000 ML @ 0 / 0 0 / 0 0 / 0 1500 mls/hr CRRT [facility] Rx#: [id number] Amiodarone Drip Premix 360mg/ 122.0 / 463.2 131.3 / 200.0 68.7 / 200.0 200mL 360 mg In 200 ml @ 0.5 MG /MIN 16.667 mls/hr IVC [facility] Rx#:[id number] FentaNYL (PF) 1,000 MCG In 0.9 134.8 / 437.7 137.4 / 186.8 49.4 / 186.8 % Sodium Chloride 80 ML @ 50 MCG/HR 5 mls/hr IVC [facility] Rx #:[id number] Heparin 25,000 UNIT/250 ML D5W 133 / 133 225 / 367 142 / 367 25,000 unit In 250 ml @ 14 UNIT /KG/HR 18.004 mls/hr IVC . [id number] [facility] Rx#:[id number] Versed 50 MG In 0.9 % Sodium 100.0 / 353.7 100.0 / 100.0 Chloride 90 ML @ 2 MG/HR 4 mls/ hr IVC [facility] Rx#:[id number] Levophed 8 MG In 0.9 % Sodium 118.4 / 458.5 206.8 / 340.6 133.8 / 340.6 Chloride 250 ML @ 0.5 MCG/MIN 0 .968 mls/hr IVC [facility] Rx#: [id number] Phenylephrine 50 MG In 0.9 % 386.4 / 1280.2 428.7 / 678.7 250 / 678.7 Sodium Chloride 250 ML @ 100 MCG/MIN 30.6 mls/hr IVC [facility] Rx#:[id number] Vasostrict 40 UNIT In Dextrose 32.1 / 111.0 35.2 / 55.9 20.7 / 55.9 5% 100 ML @ 0.03 UNIT/MIN 4.59 mls/hr IVC .[id number] [facility] Rx#: [id number] Zosyn 3.375 GM In 0.9 % Sodium 115 / 400.0 100 / 100 Chloride (Mini-Bag +) 100 ML @ 25 mls/hr IVPB Q8H [facility] Rx#: [id number] Oral 0 / 0 0 / 0 Output: Rectal Tube 200 / 200 200 / 200 0 / 200 Catheter 0 / 0 0 / 0 0 / 0 Gastric Drainage 0 / 100 0 / 0 0 / 0 Fluid Removed by Prismaflex 9120 / 1743 5420 / 4473 2161 / 4428 Other: Weight 128.6 kg 125.7 kg 125.7 kg Blood Glucose* 119 119 141 Patient Weight 02/03/19 23:59 Weight 125.7 kg - Exam Exam: Constitutional: Unresponsive, intubated and on sedation Vascular: PT/DP pulses per Doppler, edema noted bilateral lower extremities Neurological: Abnormal plantar response Dermatological: Callus left plantar medial aspect midfoot and left distal hallux, appear stable and chronic, no drainage, no signs of abscess, no erythema noted around calluses. Xerosis noted bilateral lower extremities. Stage I pressure ulcer noted to right heel. - Lab Result Diagrams: 02/03/19 04:15 02/03/19 04:00 Labs: Abnormal lab results WBC 15.6 K/mcL (4.3-11.1) H 02/03/19 04:15 RBC 5.57 M/mcL (4.19-5.50) H 02/02/19 03:15 MCH 26.8 pg (28.0-33.3) L 02/03/19 04:15 MCHC 31.0 g/dL (31.6-35.5) L 02/02/19 11:05 RDW 19.6 % (11.5-14.5) H 02/03/19 04:15 Plt Count 60 K/mcL (140-400) L 02/03/19 04:15 Neutrophils # 13.1 K/mcL (1.6-8.9) H 02/03/19 04:15 Lymphocytes # 0.5 K/mcL (0.6-4.6) L 02/02/19 03:15 Monocytes # 1.6 K/mcL (0.0-1.3) H 02/03/19 04:15 Nucleated RBCs/100 WBC 0.2 /100 WBC (0) H 02/03/19 04:15 Platelet Estimate Decreased (Normal) L 02/03/19 04:15 Immature Plt Fraction 17.4 % (1.1-6.1) H 02/03/19 04:15 Polychromasia 1+ (Not Present) A 02/03/19 04:15 PT 17.1 Seconds (9.4-12.1) H 02/03/19 04:00 APTT 46.1 Seconds (26.0-36.0) H 02/01/19 05:06 Heparin Anti-Xa, Unfract 0.29 IU/mL (0.30-0.70) L 02/03/19 11:00 ABG pH 7.31 pH Units (7.32-7.45) L 02/02/19 11:16 ABG pCO2 54 mmHg (35-45) H 02/02/19 04:58 ABG pO2 112 mmHg (85-104) H 02/03/19 04:28 ABG HCO3 29 mEq/L (21-27) H 01/31/19 22:13 ABG Total CO2 27 mEq/L (20-26) H 02/01/19 04:58 ABG O2 Saturation 94 % (95-98) L 02/02/19 11:16 ABG Base Excess -3 mEq/L (-2 to 3) L 02/03/19 04:28 VBG pCO2 32 mmHg (41-51) L 02/01/19 17:38 VBG pO2 209 mmHg (25-50) H 02/01/19 17:38 VBG HCO3 19 mEq/L (21-27) L 02/01/19 17:38 VBG Hematocrit 57.0 % (37.5-50.1) H 02/01/19 17:38 VBG Lactic Acid 3.7 mmol/L (0.5-2.2) H 02/01/19 17:38 Venous Sodium 134 mEq/L (135-145) L 02/01/19 17:38 Sodium 135 mEq/L (136-145) L 02/03/19 04:00 Potassium 5.2 mEq/L (3.5-5.1) H 02/01/19 02:25 Chloride 94 mEq/L (98-107) L 02/01/19 02:25 Carbon Dioxide 19 mEq/L (23-29) L 02/03/19 04:00 BUN 32 mg/dL (6-20) H 02/03/19 04:00 Creatinine 3.92 mg/dL (0.70-1.30) H 02/03/19 04:00 Est GFR ( Amer) 20 (> 60) L 02/03/19 04:00 Est GFR (Non-Af Amer) 16 (> 60) L 02/03/19 04:00 Glucose 161 mg/dL (70-105) H 02/03/19 04:00 Whole Bld Glucose 141 mg/dl (65-95) H 02/01/19 17:38 POC Glucose 128 mg/dL (70-99) H 02/03/19 03:10 Calculated Osmolality 303 (280-300) H 02/01/19 02:25 Calcium 10.4 mg/dL (8.6-10.3) H 01/31/19 19:23 Venous Ioniz Calcium 0.86 mmol/L (1.15-1.35) L 02/02/19 05:46 Phosphorus 5.6 mg/dL (2.7-4.5) H 02/02/19 03:15 Total Bilirubin 4.3 mg/dL (0.3-1.0) H 02/03/19 04:00 Direct Bilirubin 0.5 mg/dL (0.0-0.2) H 01/31/19 19:23 Alkaline Phosphatase 158 Units/L (34-104) H 02/03/19 04:00 Creatine Kinase 1390 Units/L (30-223) H 02/01/19 02:25 Troponin I 0.12 ng/mL (< 0.04) H* 02/01/19 02:25 Serum Total Protein 5.9 g/dL (6.4-8.9) L 02/03/19 04:00 Albumin 2.9 g/dL (3.5-5.7) L 02/03/19 04:00 Albumin/Globulin Ratio 1.0 (1.1-2.2) L 02/03/19 04:00 Lipase 4 Units/L (11-82) L 02/01/19 02:25 Hep Bs Antibody < 3.10 mIU/mL (10.00-) L 02/01/19 13:25 Staph aureus (PCR) DETECTED (Not Detect) A 01/31/19 19:23 mecA-Methicil Res Gene DETECTED (Not Detect) A 01/31/19 19:23 Microbiology, Last 48 Hours 02/03/19 08:37 Blood Culture - Preliminary Peripheral Venipuncture Culture is incubating and being continuously monitor ed for growth. Final report to follow. 02/03/19 07:41 Blood Culture - Preliminary Central Venous Catheter Culture is incubating and being continuously monitored for growth. Final report to follow. 01/31/19 19:23 Blood Culture - Final Peripheral Venipuncture Methicillin Resistant S.aureus 02/01/19 22:36 Blood Culture - Final Peripheral Venipuncture Methicillin Resistant S.aureus 02/01/19 22:36 Blood Culture - Final Peripheral Venipuncture Methicillin Resistant S.aureus 01/31/19 19:23 Blood Culture - Final Peripheral Venipuncture Methicillin Resistant S.aureus Consult Discharge Plan - Plan Referrals: NONE,PCP [Primary Care Provider] -
[2019-02-04] MEDS: PrismaSATE BGK 4/2.5 5,000 ML CRRT SCH ×14 (00:31→21:08)
[2019-02-04 02:08] LABS: Acinetobacter baumannii by PCR Not Detected (Not Detect); Candida albicans by PCR Not Detected (Not Detect); Candida glabrata by PCR Not Detected (Not Detect); Candida krusei by PCR Not Detected (Not Detect); Candida parapsilosis by PCR Not Detected (Not Detect); Candida tropicalis by PCR Not Detected (Not Detect); Enterobacter cloacae Cmplx PCR Not Detected (Not Detect); Enterobacteriaceae by PCR Not Detected (Not Detect); Enterococcus by PCR Not Detected (Not Detect); Escherichia coli by PCR Not Detected (Not Detect); Klebsiella oxytoca by PCR Not Detected (Not Detect); Klebsiella pneumoniae by PCR Not Detected (Not Detect); Proteus by PCR Not Detected (Not Detect); Pseudomonas aeruginosa by PCR Not Detected (Not Detect); Serratia marcescens by PCR Not Detected (Not Detect); Staphylococcus aureus by PCR DETECTED (Not Detect); Streptococcus agalactiae(B)PCR Not Detected (Not Detect); Streptococcus by PCR Not Detected (Not Detect); Streptococcus pneumoniae PCR Not Detected (Not Detect); Streptococcus pyogenes (A) PCR Not Detected (Not Detect); blaKPC Carbapenem-Resist Gene Not Detected (Not Detect); mecA Methicillin-Resist Gene DETECTED (Not Detect); vanA/B Vancomycin-Resist Genes Not Detected (Not Detect)
[2019-02-04] MEDS: Phenylephrine 50 MG in 0.9 % Sodium Chloride 250 ML IVC SCH ×5 (02:19→22:25)
[2019-02-04 03:24] LABS: Basophils # 0.1 K/mcL (0.0-0.2); Basophils % 0.4 %; Eosinophils # 0.1 K/mcL (0.0-0.6); Eosinophils % 0.4 %; Hematocrit 43.5 % (37.5-50.1); Immature Granulocytes % 1.1 % (0-4); Immature Platelets 15.2 % (1.1-6.1); Lymphocytes # 0.8 K/mcL (0.6-4.6); Lymphocytes % 6.1 %; Mean Corpuscular HGB Conc 32.2 g/dL (31.6-35.5); Mean Corpuscular Hemoglobin 27.1 pg (28.0-33.3); Mean Corpuscular Volume 84.1 fL (83.0-100.0); Monocytes # 1.4 K/mcL (0.0-1.3); Red Blood Count 5.17 M/mcL (4.19-5.50); Red Cell Distribution Width 19.5 % (11.5-14.5); White Blood Count 12.3 K/mcL (4.3-11.1)
[2019-02-04 03:29] LABS: Platelet Count 48 K/mcL (140-400)
[2019-02-04 03:32] LABS: VBG Ionized Calcium 1.22 mmol/L (1.15-1.35)
[2019-02-04] MEDS: Piperacillin/Tazobactam 3.375 GM in 0.9 % Sodium Chloride Mini Bag 100 ML IVPB SCH ×3 (03:47→20:10)
[2019-02-04] MEDS: Artificial Tears SOLN 15 ML BOTTLE BOTH EYES SCH ×6 (03:47→23:27)
[2019-02-04] MEDS: Insulin LISPRO 300 UNITS/3 ML VIAL SQ SCH ×6 (03:48→23:27)
[2019-02-04 03:50] LABS: Calcium 9.4 mg/dL (8.6-10.3); Magnesium 2.4 mg/dL (1.6-2.6); Phosphorous 2.4 mg/dL (2.7-4.5); Potassium 4.2 mEq/L (3.5-5.1)
[2019-02-04] MEDS: Ipratropium/Albuterol Neb 3 ML IH SCH ×4 (03:53→22:57)
[2019-02-04 05:22] LABS: ABG Base Excess -6 mEq/L (-2 to 3); ABG HCO3 20 mEq/L (21-27); ABG Oxygen Saturation 97 % (95-98); ABG PCO2 38 mmHg (35-45); ABG PH 7.32 pH Units (7.32-7.45); ABG PO2 92 mmHg (85-104); ABG TCO2 21 mEq/L (20-26); Blood Gas Modality ASSIST CONTROL; Blood Gas PEEP 8 cm H2O; Blood Gas VT 530 cc
[2019-02-04] MEDS: FentaNYL (PF) 1,000 MCG in 0.9 % Sodium Chloride 80 ML IVC SCH ×2 (05:41→13:45)
--- NOTE | 2019-02-04 06:46 | Pulmonology Progress Note ---
<Tono Salazar L - Last Filed: 02/04/19 11:55> Date of Encounter: 02/04/19 Time of Encounter: 06:42 Assessment and Plan (1) Shock Current Visit: Yes Status: Acute Shock, hemodynamic instability - Cardiogenic vs septic - Afib, no longer in RVR - Hypotension requiring one presser, phenylephrine - Three sets of blood cultures growing MRSA - Unknown source of infection, possible PNA - Vanc and zosyn day 5 - Elevated WBC - Lactate 1.4>>2.0 - ABG pH 7.32 - Continue full vent support - Cardiology consulted - Echo: Severe LV dysfunction. LVEF 20-25% - Nephrology, Continuing CRRT - QUIQUE: Valvular vegetation/abcess not present - Random cortisol 40.1 - Infectious disease consult - Planning for terrell CT for identification of infection source (2) Bacterial endocarditis Current Visit: Yes Status: Acute Bacterial endocarditis - Three sets of blood cultures MRSA positive - MRSA gene positive - TTE inadequate for endocarditis - QUIQUE: no evidence of bacterial endocarditis - Continuing vanc and zosyn Qualifiers: Chronicity: acute Qualified Code(s): I33.0 - Acute and subacute infective endocarditis (3) Cellulitis in diabetic foot Current Visit: Yes Status: Acute Foot cellulitis - Suspected BL foot cellulitis - BL LE edema - Ulcer on L foot - Podiatry consulted, diabetic foot unlikely source of bacteremia (4) Atrial fibrillation with RVR Current Visit: Yes Status: Acute Afib with RVR - History of Afib - Refractory to two electric cardioversions in the ED - On eliquis at home - Anticoagulation held - Cardiology consulted - Continuing amio drip - No longer in RVR (5) Diabetes mellitus Current Visit: No Status: Chronic Hx of DM - Accuchecks q4h - High-dose corrective insulin - A1C 12.2% on 12/15/18 Qualifiers: Diabetes mellitus type: type 2 Diabetes mellitus long term care social worker insulin use: unspecified long term care social worker insulin use status Diabetes mellitus complication status: with kidney complications Diabetes mellitus complication detail: with chronic kidney disease Chronic kidney disease stage: on chronic dialysis Qualified Code(s): E11.22 - Type 2 diabetes mellitus with diabetic chronic kidney disease; N18.6 - End stage renal disease; Z99.2 - Dependence on renal dialysis (6) Elevated troponin Current Visit: Yes Status: Acute Elevated troponin - 0.13>>0.12 - Cardiology: Suspected demand ischemia in the setting of sepsis/shock/afib - Echo: severe LV dysfunction (7) Encephalopathy acute Current Visit: No Status: Resolved Acute encephalopathy - Likely secondary to shock and metabolic disturbances - Continue CRRT - Currently sedated on versed - Minimal response to stimuli (8) End stage renal disease on dialysis Current Visit: Yes Status: Chronic ESRD - Nephrology consulted - CRRT Began on 02/02/19, continuing - Temporary dialysis catheter in R groin via IR (9) Nonischemic cardiomyopathy Current Visit: Yes Status: Chronic Nonischemic Cardiomyopathy - Cardiology consulted - Monitor I&Os and weight - Echo as above - EF 20% NICMP on previous echo (10) Rhabdomyolysis Current Visit: Yes Status: Acute Rhabdomyolysis - CK level improving Qualifiers: Rhabdomyolysis type: non-traumatic Qualified Code(s): M62.82 - Rhabdomyolysis (11) Tobacco abuse Current Visit: No Status: Chronic Nicotine patch (12) DVT prophylaxis Current Visit: No Status: Acute SCD (13) Thrombocytopenia Current Visit: Yes Status: Acute Thrombocytopenia - Platelet level decreasing - Heparin withheld - SCD for DVT prophylaxis Subjective Principal diagnosis: Septic shock Interval history: Patient seen and examined. Afebrile. No overnight events. Requiring less pressure support. Minimal reactions to external stimuli. Family meeting occured yesterday to discuss goals of care. Arterial liine is no longer working. CRRT continues. He is having dark red output from OG tube. Third set of blood cultures from yesterday are positive. Objective PUL Vital signs: Last Vital Signs Temp 97.8 F 02/04/19 04:00 Pulse 75 02/04/19 06:00 Resp 31 02/04/19 06:00 BP 95/71 02/04/19 06:00 Pulse Ox 97 02/04/19 06:00 Gen: Vitals noted. Hypotensive on vasopressors. Afib. Intubated and sedated Eyes: anicteric sclerae, moist conjunctivae. Pupils 4mm, round, equal and minimally reactive to light HENT: Atraumatic, normocephalic; oropharynx clear with moist mucous membranes and no mucosal ulcerations Neck: Trachea midline, supple Cardiac: Heart sounds difficult to auscultate due to body habitus. Peripheral pulses weak. Pulmonary: Coarse mechanical breath sounds BL, no rales or rhonchi, equal chest expansion Abdomen: soft, full, non-distended, no rigidity. No masses or hepatosplenomegaly Extremities: BL lower extremity edema. Dry scaly skin on feet/ankles. R foot: swollen more than left. No noticeable lesions or ulcers. L foot: 2-3 cm round, scabbed, ulcer on bottom of foot. Skin: Warm and dry. Dry scaly skin on BL LEs Neuro: No gag or corneal reflex. Minimal response to external stimuli. Facial expression changes with mouth wash Analgesia: fentanyl gtt Sedation: versed gtt SBT: none Glycemic control: High-dose corrective insulin Bowel regimen:none Activity: none Fluids: MIVF Electrolytes: replete as necessary Nutrition: tube feeds GI ppx: PPI Lines: ET, OG, winter, R fem CVC and temp dialysis catheter Consults: pulm, cardio, Nephrology, Palliative, Podiatry, Infectious disease, nutrition Code: Full code Dispo: ICU Ventilator Settings Ventilator Settings: Ventilator Settings, Last 8 Hours Ventilator Tidal Volume 530 Setting Ventilator Tidal Volume 530 Setting Ventilator Tidal Volume 530 Setting Ventilator Tidal Volume 530 Setting Ventilator Tidal Volume 530 Setting Ventilator Tidal Volume 530 Setting Ventilator Tidal Volume 530 Setting Ventilator Tidal Volume 530 Setting Ventilator Tidal Volume 530 Setting Ventilator Tidal Volume 530 Setting Ventilator Tidal Volume 530 Setting Ventilator Tidal Volume 530 Setting Ventilator Respiratory Rate 28 Setting Ventilator Respiratory Rate 28 Setting Ventilator Respiratory Rate 28 Setting Ventilator Respiratory Rate 28 Setting Ventilator Respiratory Rate 28 Setting Ventilator Respiratory Rate 28 Setting Ventilator Respiratory Rate 28 Setting Ventilator Respiratory Rate 28 Setting Ventilator Respiratory Rate 28 Setting Ventilator Respiratory Rate 28 Setting Ventilator Respiratory Rate 28 Setting Ventilator Respiratory Rate 28 Setting Actual Respiratory Rate 31 Actual Respiratory Rate 28 Actual Respiratory Rate 28 Actual Respiratory Rate 28 Actual Respiratory Rate 28 Actual Respiratory Rate 28 Actual Respiratory Rate 28 Actual Respiratory Rate 33 Actual Respiratory Rate 31 Actual Respiratory Rate 29 Actual Respiratory Rate 28 Positive End Expiratory 8 Pressure Positive End Expiratory 8 Pressure Positive End Expiratory 8 Pressure Positive End Expiratory 8 Pressure Positive End Expiratory 8 Pressure Positive End Expiratory 8 Pressure Positive End Expiratory 8 Pressure Positive End Expiratory 8 Pressure Positive End Expiratory 8 Pressure Positive End Expiratory 8 Pressure Positive End Expiratory 8 Pressure Positive End Expiratory 8 Pressure Peak Inspiratory Airway 30 Pressure Peak Inspiratory Airway 32 Pressure Peak Inspiratory Airway 30 Pressure Peak Inspiratory Airway 29 Pressure Peak Inspiratory Airway 29 Pressure Peak Inspiratory Airway 28 Pressure Peak Inspiratory Airway 30 Pressure Peak Inspiratory Airway 30 Pressure Peak Inspiratory Airway 29 Pressure Peak Inspiratory Airway 29 Pressure Peak Inspiratory Airway 38 Pressure Results - Laboratory Findings CBC and BMP: 02/04/19 03:10 02/04/19 03:10 ABG ABG pH 7.32 pH Units (7.32-7.45) 02/04/19 05:18 ABG pCO2 38 mmHg (35-45) 02/04/19 05:18 ABG pO2 92 mmHg (85-104) 02/04/19 05:18 ABG O2 Saturation 97 % (95-98) 02/04/19 05:18 PT/INR, D-dimer PT 17.1 Seconds (9.4-12.1) H 02/03/19 04:00 Abnormal lab findings: Abnormal lab results WBC 12.3 K/mcL (4.3-11.1) H 02/04/19 03:10 RBC 5.57 M/mcL (4.19-5.50) H 02/02/19 03:15 MCH 27.1 pg (28.0-33.3) L 02/04/19 03:10 MCHC 31.0 g/dL (31.6-35.5) L 02/02/19 11:05 RDW 19.5 % (11.5-14.5) H 02/04/19 03:10 Plt Count 48 K/mcL (140-400) L 02/04/19 03:10 Neutrophils # 10.0 K/mcL (1.6-8.9) H 02/04/19 03:10 Lymphocytes # 0.5 K/mcL (0.6-4.6) L 02/02/19 03:15 Monocytes # 1.4 K/mcL (0.0-1.3) H 02/04/19 03:10 Nucleated RBCs/100 WBC 0.2 /100 WBC (0) H 02/03/19 04:15 Platelet Estimate Decreased (Normal) L 02/03/19 04:15 Immature Plt Fraction 15.2 % (1.1-6.1) H 02/04/19 03:10 Polychromasia 1+ (Not Present) A 02/03/19 04:15 PT 17.1 Seconds (9.4-12.1) H 02/03/19 04:00 APTT 46.1 Seconds (26.0-36.0) H 02/01/19 05:06 Heparin Anti-Xa, Unfract 0.29 IU/mL (0.30-0.70) L 02/03/19 11:00 ABG pH 7.31 pH Units (7.32-7.45) L 02/02/19 11:16 ABG pCO2 54 mmHg (35-45) H 02/02/19 04:58 ABG pO2 112 mmHg (85-104) H 02/03/19 04:28 ABG HCO3 20 mEq/L (21-27) L 02/04/19 05:18 ABG Total CO2 27 mEq/L (20-26) H 02/01/19 04:58 ABG O2 Saturation 94 % (95-98) L 02/02/19 11:16 ABG Base Excess -6 mEq/L (-2 to 3) L 02/04/19 05:18 VBG pCO2 32 mmHg (41-51) L 02/01/19 17:38 VBG pO2 209 mmHg (25-50) H 02/01/19 17:38 VBG HCO3 19 mEq/L (21-27) L 02/01/19 17:38 VBG Hematocrit 57.0 % (37.5-50.1) H 02/01/19 17:38 VBG Lactic Acid 3.7 mmol/L (0.5-2.2) H 02/01/19 17:38 Venous Sodium 134 mEq/L (135-145) L 02/01/19 17:38 Sodium 134 mEq/L (136-145) L 02/04/19 03:10 Potassium 5.2 mEq/L (3.5-5.1) H 02/01/19 02:25 Chloride 94 mEq/L (98-107) L 02/01/19 02:25 Carbon Dioxide 19 mEq/L (23-29) L 02/04/19 03:10 BUN 32 mg/dL (6-20) H 02/03/19 04:00 Creatinine 2.56 mg/dL (0.70-1.30) H 02/04/19 03:10 Est GFR ( Amer) 33 (> 60) L 02/04/19 03:10 Est GFR (Non-Af Amer) 27 (> 60) L 02/04/19 03:10 Glucose 173 mg/dL (70-105) H 02/04/19 03:10 Whole Bld Glucose 141 mg/dl (65-95) H 02/01/19 17:38 POC Glucose 133 mg/dL (70-99) H 02/03/19 23:07 Calculated Osmolality 303 (280-300) H 02/01/19 02:25 Calcium 10.4 mg/dL (8.6-10.3) H 01/31/19 19:23 Venous Ioniz Calcium 0.86 mmol/L (1.15-1.35) L 02/02/19 05:46 Phosphorus 2.4 mg/dL (2.7-4.5) L 02/04/19 03:10 Total Bilirubin 4.3 mg/dL (0.3-1.0) H 02/03/19 04:00 Direct Bilirubin 0.5 mg/dL (0.0-0.2) H 01/31/19 19:23 Alkaline Phosphatase 158 Units/L (34-104) H 02/03/19 04:00 Creatine Kinase 283 Units/L (30-223) H 02/04/19 03:10 Troponin I 0.12 ng/mL (< 0.04) H* 02/01/19 02:25 Serum Total Protein 5.9 g/dL (6.4-8.9) L 02/03/19 04:00 Albumin 2.9 g/dL (3.5-5.7) L 02/03/19 04:00 Albumin/Globulin Ratio 1.0 (1.1-2.2) L 02/03/19 04:00 Lipase 4 Units/L (11-82) L 02/01/19 02:25 Hep Bs Antibody < 3.10 mIU/mL (10.00-) L 02/01/19 13:25 Staph aureus (PCR) DETECTED (Not Detect) A 02/03/19 08:37 mecA-Methicil Res Gene DETECTED (Not Detect) A 02/03/19 08:37 - Microbiology Findings Microbiology Findings: Microbiology, Last 48 Hours 02/03/19 07:41 Blood Culture - Preliminary Central Venous Catheter Gram Positive Cocci 02/03/19 08:37 Blood Culture - Preliminary Peripheral Venipuncture Gram Positive Cocci 01/31/19 19:23 Blood Culture - Final Peripheral Venipuncture Methicillin Resistant S.aureus 02/01/19 22:36 Blood Culture - Final Peripheral Venipuncture Methicillin Resistant S.aureus 02/01/19 22:36 Blood Culture - Final Peripheral Venipuncture Methicillin Resistant S.aureus 01/31/19 19:23 Blood Culture - Final Peripheral Venipuncture Methicillin Resistant S.aureus - Clinical Findings Intake & Output: Intake & Output 02/03/19 02/03/19 02/04/19 15:59 23:59 07:59 Intake Total 1014.6 / 4195.8 1916.8 / 4195.8 703.6 / 703.6 Output Total 2162 / 6913 2064 / 6913 1552 / 1552 Balance -1147.4 / -2717.2 -147.2 / -2717.2 -848.4 / -848.4 Weight 125.7 kg 125.7 kg 123.75 kg Consult Discharge Plan - Plan Referrals: NONE,PCP [Primary Care Provider] - <Marbella Sam - Last Filed: 02/04/19 20:36> Date of Encounter: 02/04/19 Objective PUL Vital signs: Last Vital Signs Temp 98.4 F 02/04/19 20:00 Pulse 89 02/04/19 20:00 Resp 28 02/04/19 20:06 BP 70/51 02/04/19 20:00 Pulse Ox 96 02/04/19 20:06 Ventilator Settings Ventilator Settings: Ventilator Settings, Last 8 Hours Ventilator Tidal Volume 530 Setting Ventilator Tidal Volume 530 Setting Ventilator Tidal Volume 530 Setting Ventilator Tidal Volume 530 Setting Ventilator Tidal Volume 530 Setting Ventilator Tidal Volume 530 Setting Ventilator Tidal Volume 530 Setting Ventilator Tidal Volume 530 Setting Ventilator Tidal Volume 530 Setting Ventilator Tidal Volume 530 Setting Ventilator Tidal Volume 530 Setting Ventilator Tidal Volume 530 Setting Ventilator Respiratory Rate 28 Setting Ventilator Respiratory Rate 28 Setting Ventilator Respiratory Rate 28 Setting Ventilator Respiratory Rate 28 Setting Ventilator Respiratory Rate 28 Setting Ventilator Respiratory Rate 28 Setting Ventilator Respiratory Rate 28 Setting Ventilator Respiratory Rate 28 Setting Ventilator Respiratory Rate 28 Setting Ventilator Respiratory Rate 28 Setting Ventilator Respiratory Rate 28 Setting Ventilator Respiratory Rate 28 Setting Actual Respiratory Rate 28 Actual Respiratory Rate 28 Actual Respiratory Rate 30 Actual Respiratory Rate 32 Actual Respiratory Rate 32 Actual Respiratory Rate 34 Actual Respiratory Rate 30 Actual Respiratory Rate 28 Actual Respiratory Rate 28 Actual Respiratory Rate 28 Actual Respiratory Rate 28 Actual Respiratory Rate 28 Positive End Expiratory 8 Pressure Positive End Expiratory 8 Pressure Positive End Expiratory 8 Pressure Positive End Expiratory 8 Pressure Positive End Expiratory 8 Pressure Positive End Expiratory 8 Pressure Positive End Expiratory 8 Pressure Positive End Expiratory 8 Pressure Positive End Expiratory 8 Pressure Positive End Expiratory 8 Pressure Positive End Expiratory 8 Pressure Positive End Expiratory 8 Pressure Peak Inspiratory Airway 30 Pressure Peak Inspiratory Airway 30 Pressure Peak Inspiratory Airway 29 Pressure Peak Inspiratory Airway 29 Pressure Peak Inspiratory Airway 25 Pressure Peak Inspiratory Airway 28 Pressure Peak Inspiratory Airway 26 Pressure Peak Inspiratory Airway 28 Pressure Peak Inspiratory Airway 28 Pressure Peak Inspiratory Airway 28 Pressure Peak Inspiratory Airway 27 Pressure Peak Inspiratory Airway 28 Pressure Results - Laboratory Findings CBC and BMP: 02/04/19 03:10 02/04/19 03:10 ABG ABG pH 7.32 pH Units (7.32-7.45) 02/04/19 05:18 ABG pCO2 38 mmHg (35-45) 02/04/19 05:18 ABG pO2 92 mmHg (85-104) 02/04/19 05:18 ABG O2 Saturation 97 % (95-98) 02/04/19 05:18 PT/INR, D-dimer PT 14.3 Seconds (9.4-12.1) H 02/04/19 03:10 Abnormal lab findings: Abnormal lab results WBC 12.3 K/mcL (4.3-11.1) H 02/04/19 03:10 RBC 5.57 M/mcL (4.19-5.50) H 02/02/19 03:15 MCH 27.1 pg (28.0-33.3) L 02/04/19 03:10 MCHC 31.0 g/dL (31.6-35.5) L 02/02/19 11:05 RDW 19.5 % (11.5-14.5) H 02/04/19 03:10 Plt Count 48 K/mcL (140-400) L 02/04/19 03:10 Neutrophils # 10.0 K/mcL (1.6-8.9) H 02/04/19 03:10 Lymphocytes # 0.5 K/mcL (0.6-4.6) L 02/02/19 03:15 Monocytes # 1.4 K/mcL (0.0-1.3) H 02/04/19 03:10 Nucleated RBCs/100 WBC 0.2 /100 WBC (0) H 02/03/19 04:15 Platelet Estimate Decreased (Normal) L 02/03/19 04:15 Immature Plt Fraction 15.2 % (1.1-6.1) H 02/04/19 03:10 Polychromasia 1+ (Not Present) A 02/03/19 04:15 PT 14.3 Seconds (9.4-12.1) H 02/04/19 03:10 APTT 46.1 Seconds (26.0-36.0) H 02/01/19 05:06 Heparin Anti-Xa, Unfract 0.29 IU/mL (0.30-0.70) L 02/03/19 11:00 ABG pH 7.31 pH Units (7.32-7.45) L 02/02/19 11:16 ABG pCO2 54 mmHg (35-45) H 02/02/19 04:58 ABG pO2 112 mmHg (85-104) H 02/03/19 04:28 ABG HCO3 20 mEq/L (21-27) L 02/04/19 05:18 ABG Total CO2 27 mEq/L (20-26) H 02/01/19 04:58 ABG O2 Saturation 94 % (95-98) L 02/02/19 11:16 ABG Base Excess -6 mEq/L (-2 to 3) L 02/04/19 05:18 VBG pCO2 32 mmHg (41-51) L 02/01/19 17:38 VBG pO2 209 mmHg (25-50) H 02/01/19 17:38 VBG HCO3 19 mEq/L (21-27) L 02/01/19 17:38 VBG Hematocrit 57.0 % (37.5-50.1) H 02/01/19 17:38 VBG Lactic Acid 3.7 mmol/L (0.5-2.2) H 02/01/19 17:38 Venous Sodium 134 mEq/L (135-145) L 02/01/19 17:38 Sodium 134 mEq/L (136-145) L 02/04/19 03:10 Potassium 5.2 mEq/L (3.5-5.1) H 02/01/19 02:25 Chloride 94 mEq/L (98-107) L 02/01/19 02:25 Carbon Dioxide 19 mEq/L (23-29) L 02/04/19 03:10 BUN 32 mg/dL (6-20) H 02/03/19 04:00 Creatinine 2.56 mg/dL (0.70-1.30) H 02/04/19 03:10 Est GFR ( Amer) 33 (> 60) L 02/04/19 03:10 Est GFR (Non-Af Amer) 27 (> 60) L 02/04/19 03:10 Glucose 173 mg/dL (70-105) H 02/04/19 03:10 Whole Bld Glucose 141 mg/dl (65-95) H 02/01/19 17:38 POC Glucose 133 mg/dL (70-99) H 02/03/19 23:07 Calculated Osmolality 303 (280-300) H 02/01/19 02:25 Calcium 10.4 mg/dL (8.6-10.3) H 01/31/19 19:23 Venous Ioniz Calcium 0.86 mmol/L (1.15-1.35) L 02/02/19 05:46 Phosphorus 2.4 mg/dL (2.7-4.5) L 02/04/19 03:10 Total Bilirubin 4.3 mg/dL (0.3-1.0) H 02/03/19 04:00 Direct Bilirubin 0.5 mg/dL (0.0-0.2) H 01/31/19 19:23 Alkaline Phosphatase 158 Units/L (34-104) H 02/03/19 04:00 Creatine Kinase 283 Units/L (30-223) H 02/04/19 03:10 Troponin I 0.12 ng/mL (< 0.04) H* 02/01/19 02:25 Serum Total Protein 5.9 g/dL (6.4-8.9) L 02/03/19 04:00 Albumin 2.9 g/dL (3.5-5.7) L 02/03/19 04:00 Albumin/Globulin Ratio 1.0 (1.1-2.2) L 02/03/19 04:00 Lipase 4 Units/L (11-82) L 02/01/19 02:25 Hep Bs Antibody < 3.10 mIU/mL (10.00-) L 02/01/19 13:25 Staph aureus (PCR) DETECTED (Not Detect) A 02/03/19 08:37 mecA-Methicil Res Gene DETECTED (Not Detect) A 02/03/19 08:37 - Microbiology Findings Microbiology Findings: Microbiology, Last 48 Hours 02/03/19 07:41 Blood Culture - Preliminary Central Venous Catheter Gram Positive Cocci 02/03/19 08:37 Blood Culture - Preliminary Peripheral Venipuncture Gram Positive Cocci 01/31/19 19:23 Blood Culture - Final Peripheral Venipuncture Methicillin Resistant S.aureus 02/01/19 22:36 Blood Culture - Final Peripheral Venipuncture Methicillin Resistant S.aureus 02/01/19 22:36 Blood Culture - Final Peripheral Venipuncture Methicillin Resistant S.aureus 01/31/19 19:23 Blood Culture - Final Peripheral Venipuncture Methicillin Resistant S.aureus - Clinical Findings Intake & Output: Intake & Output 02/04/19 02/04/19 02/04/19 07:59 15:59 23:59 Intake Total 763.9 / 2268.9 1068.0 / 2268.9 437 / 2268.9 Output Total 1718 / 4771 2062 / 4771 991 / 4771 Balance -954.1 / -2502.1 -994.0 / -2502.1 -554 / -2502.1 Weight 123.75 kg 123.75 kg 123.75 kg - Attending Attestation Attending Attestation I saw and evaluated this patient and my medical decision-making was reviewed with the Resident Physician. I agree with the documented findings, disposition and treatment plan as described except to the extent set forth below. We independently had [id number] contact with the patient I spent 40 minutes of Critical Care time with this patient. It involved decision making of high complexity to assess, manipulate, and support vital organ system failure and/or to prevent further life threatening deterioration of the patient's condition. The time involved in the performance of separately reportable procedures was not counted toward critical care time. Patient seen and examined at bedside Labs, radiology, chart personally reviewed. Management was reviewed during multidisciplinary critical care rounds. 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 02/03 patient is was likely toxic/metabolic encephalopathy with severe shock combination of septic and cardiogenic shock 02/04 patient continues to be encephalopathic. Pulm: Patient V/Q mismatch is complicated by pneumonia and possible hydrostatic pulmonary edema as patient is a severer systolic congestive heart failure. Cannot do diuresis as patient is in significant septic shock complicated by systolic heart failure. Patient has acceptable oxygenation and ventilation. 02/02 issues acceptable oxygenation and ventilation to continue the low tidal volume strategy cannot diuresis fluid removal significantly. Patient still in septic shock 02/03 patient has acceptable oxygenation and ventilation cannot do diuresis patient is on multiple vasopressor therapy this continue to support with full mechanical ventilation. Arterial blood gas were reviewed settings were reviewed peak and plateau pressures were reviewed 02/04 patient has acceptable oxygenation and ventilation the blood gas looks acceptable to continue the low tidal volume strategy Cards: Patient is most likely septic shock complicated by low cardiac output heart failure patient is on triple vasopressor therapy as patient is going on CVVH complicating the picture is atrial fibrillation with rapid ventricular rate not adequately controlled by cardioversion, amiodarone even on digoxin. Doubt that repeat cardioversion will be helpful. To get full echocardiogram to trend troponins. It was an acute coronary event patient will be have poor prognosis patient will not be a cardiac catheterization candidate 02/02 patient had this persistent MRSA bacteremia patient is in septic shock cannot get into the CT scan or CT chest abdomen and pelvis did a transesophageal echocardiogram which did not show any evidence of endocarditis. Once more stable we will send him for CT abdomen pelvis and CT chest. Most likely source would be pneumonia. 02/03 patient underwent transesophageal echocardiogram has today MRSA bacteremia waiting for cultures today. Patient is in severe shock with triple vasopressor therapy we are going up on the norepinephrine as phenylephrine and vasopressin maxed out 02/04 patient has low EF to start with chronic systolic heart failure and probable that he is in severe septic shock needing 1-2 vasopressor therapy. FEN-GI: Advance diet as tolerated Renal: Labs and output were reviewed patient is on CVVH today. Patient was hypotensive after 2:00 pm contacted nephrology. Fluid removal. ID: To cover with broad-spectrum antibiotics. MRSA bacteremia is not clearing consulted ID gave opinion to start daptomycin. No clear source of infection cannot do a terrell CT scan as patient is very unstable. Heme/Onc: Labs reviewed Endo: Glucose Monitored patient had a strong steroid response carries very poor prognosis Integ/MSK: Skin Care per routine ICU Nursing Protocol to prevent ulcers. Patient had bilateral leg swelling with foot swelling consulted podiatry gave opinion this is not convincing evidence of infection cannot do imaging as patient is more unstable. Lines: All lines examined without evidence of infection : Dispo: Critically ill CODE: Full Code
[2019-02-04] MEDS ORDERED: *HR* Heparin 5,000 UNIT/ML VIAL ONE (07:05)
[2019-02-04] MEDS: Nicotine 21 MG PATCH.TD24 TD SCH (07:48)
[2019-02-04] MEDS: Pantoprazole 40 MG VIAL IVP SCH (07:49)
[2019-02-04] MEDS: Chlorhexidine Rinse 15 ML MOUTHWASH MM SCH ×2 (07:49→20:12)
--- NOTE | 2019-02-04 08:19 | Internal Med Progress Note ---
Hospitalist Progress Note - Encounter Date of Encounter: 02/04/19 Time of Encounter: 09:00 - Subjective Interval History: This is an extremely complicated 48-year-old -Maldivian male with multiple medical problems including noncompliance, end-stage renal disease on hemodialysis on Wednesday, atrial fibrillation on , chronic systolic CHF, diabetes mellitus, hypertension, hyperlipidemia, marijuana abuse. Patient was found disheveled, at home, covered in feces, with altered mental status. He was brought to the emergency room where he was noted to be hypotensive, with A. fib with RVR. Electrocardioversion was attempted twice, without success. Patient was subsequently intubated. He had a central line placed in his right groin, as well as an arterial line. He was given aggressive IV fluids per sepsis protocol, then started on vasopressor therapy and admitted to our intensive care unit. As the patient is currently intubated and sedated. He is on epinephrine as well as phenylephrine. He remains on broad-spectrum antibiotics with Zosyn and vancomycin. Of note 202 blood cultures are growing out gram-positive cocci. With regards to his atrial fibrillation he remains on an amiodarone drip, as well as IV digoxin. Cardiology is following as well as nephrology. Patient had a temporary dialysis catheter placed this afternoon. Does have a left arm AV fistula which is nonfunctional. CRRT is planned this af ternoon. Patient is also noted to have an elevated CK, currently 1390, likely related to being down underground for none known duration of time. 02/02: Patient is improved since last night. We have weaned down norepinephrine with subsequent improvement in his heart rate. He is also undergoing CRRT with 2 L of fluid removed overnight. Patient remains nonresponsive on ventilator support. He is sedated. We did do an ultrasound of his left AV fistula which showed no obvious abscess or fluid collection. Podiatry has been consulted to evaluate his feet for possible bowel infection. Patient's repeat blood cultures from February 01 again are positive for gram-positive cocci 2. Patient co ntinues on broad-spectrum antibiotics with Zosyn and vancomycin. Patient's echo showed EF of 20%, with severe dilated left ventricle, mild to moderate tricuspid regurgitation but poor visualization of the right ventricle. No obvious vegetations seen. Patient CK remains elevated at 1390. 02/03: Patient continues on 3 vasoactive agents to maintain blood pressure. He remains on full ventilatory support, fully sedated. Patient had a QUIQUE done yesterday which showed no obvious endocarditis. Podiatry did examine his feet and felt that there was not an acute infection. She remains on broad-spectrum antibiotics in the form of Zosyn, as well as vancomycin for MRSA bacteremia. Patient's heart rate has improved to the 80s. He continues on CRRT therapy. Today we had a extensive greater than 30 minute family meeting with myself, Dr. Bolton, Dr. Sam, palliative care, nursing staff, and multiple family members. Family is aware of Eduar's condition, presently he still remains a full code but they are evaluating his situation. 02/04: No significant changes. Continues on CRRT. He remains on 2 vasoactive agents presently. Repeat blood cultures from 02/03 again positive for MRSA. Lines: Left Radial Art Line (02/01-02/03)-removed Right Groin temp dialysis cath (02/01) Patient unable to provide any review of systems as he is sedated - Exam Vitals: Temp Pulse Resp BP Pulse Ox 97.8 F 74 28 100/79 99 02/04/19 04:00 02/04/19 07:37 02/04/19 07:30 02/04/19 07:30 02/04/19 07:30 Exam: General: intubated, sedated, appears comfortable HEENT: head normocephalic/atraumatic, pupils equally round and with sluggish reaction to light, sclera anicteric Neck: Supple, no lymphadenopathy Cardio: irreg, nml rate, no murmurs, +S1/S2 Pulm: Coarse breath sounds bilaterally, on mechanical ventilation Abdomen: Soft, distended with fluid wave,+ bs nut dimin Extremities: 3+ pitting edema BLE extending above chilel, no cyanosis, Left Fem TLC, left rad art line Neuro: unable to fully assess neuro status due to intubation and sedation MSK: no joint swelling or joint erythema, AV fistulae of left forearm noted Skin: very dry, chronic venous stasis discoloration, intact. Patient has a half-dollar ulcer, scabbed over on plantar aspect of left foot. Both feet are edematous with severe chronic venous stasis changes. Both feet are swollen Patient has AV fistula site on his left anterior forearm without a palpable thrill, it appears mildly indurated there some scabbing over it Psych: unable to assess - Summary of Assessment and Plan Summary of Assessment and Plan: Septic shock -Suspect due to MRSA bacteremia -Continue broad-spectrum antibiotics however given potential other sources of infection -Patient is currently taking #4 Zosyn, vancomycin -Norepi, Kee, Vasopressin for hypotension -?component of cardiogenic shock, defer to cardiology if Milrinone would benefit 02/04: Continue vasoactive meds, titrate as able -ID consult MRSA bacteremia/Poss RUL PNA -Multiple potential sources -Patient has an ulcer on the plantar aspect of his left foot, also multiple skin wounds -His AV fistula is nonfunctional and somewhat indurated, this is also a po tential source, although US showed no fluid collection -? History of IV drug abuse -? Due to poor dentition - transesophageal echocardiogram neg for vegetation -Repeat blood cultures ordered today. Bld cx from 01/31 and 02/01, 02/03 are all 2/2 positive MRSA Afib w RVR -on amiodarone,failed cardioversion 2 -Cardiology following -was on NOAC at home 02/02: Heart rate now improved, heparin drip stopped due to thrmbocytopenia Nonishcemic Cardiomyopathy, chronic systolic CHF -EF 20% -cardiology following Altered Mental status -Multifactorial likely due to sepsis,? Cerebral hypoperfusion -CT scan showed no evidence of acute stroke. No obvious seizure activity noted. -No new level is normal, PCO2 is not significantly elevated -Continue to closely monitor -check drug screen End-stage renal disease -CRRT as I discussed with Dr. Gann today -Avoid nephrotoxins as best able, monitor electrolytes Hyperkalemia, hyperphosphatemia -CRRT should correct Thrombocytopenia -chronic issue for pt, but trending down -may be exac by critical illness, medication -monitor Mild rhabdomyolysis -Continue to monitor CK -CK is not markedly elevated on not convinced this is significantly contributing to his current illness however we will monitor levels Polysubstance drug abuse Morbid Obesity Chronic venous stasis DVT prophylaxis -SCD's (heparin stopped due to thrombocytopenia - Time Spent with Patient Total time spent is greater than 50% in coordination of care (as documented) at patient's floor/unit and/or counseling patient: Internal Medicine: Result - Labs CBC & Chem 7: 02/04/19 03:10 02/04/19 03:10 Labs: Short CBC 02/04/19 Range/Units 03:10 WBC 12.3 H (4.3-11.1) K/mcL Hgb 14.0 (12.9-16.9) g/dL Hct 43.5 (37.5-50.1) % Plt Count 48 L (140-400) K/mcL Neutrophils # 10.0 H (1.6-8.9) K/mcL BMP 02/04/19 03:10 Sodium 134 L Potassium 4.2 Chloride 104 Carbon Dioxide 19 L BUN 19 Creatinine 2.56 H Glucose 173 H Calcium 9.4 - ABG Interpretation ABG results: ABG ABG pH 7.32 pH Units (7.32-7.45) 02/04/19 05:18 ABG pCO2 38 mmHg (35-45) 02/04/19 05:18 ABG pO2 92 mmHg (85-104) 02/04/19 05:18 ABG O2 Saturation 97 % (95-98) 02/04/19 05:18 PT/INR, D-dimer PT 17.1 Seconds (9.4-12.1) H 02/03/19 04:00 - Impressions Impressions KUB X-Ray 02/01/19 12:52 IMPRESSION: Vascular access catheter placements. D/ / 02/01/2019 13:22:44 Benson Ronquillo MD / mitchell Interpreting Provider: Benson Ronquillo MD Chest X-Ray 02/03/19 08:27 IMPRESSION: Improving aeration of the lungs with some residual left basilar and right upper lobe atelectasis. D/ / 02/03/2019 09:52:03 Jorge Luis Lu MD / mitchell Interpreting Provider: Jorge Luis Lu MD X-Ray 02/03/19 08:28 IMPRESSION: No evidence of bowel obstruction. D/ / 02/03/2019 09:52:27 Jorge Luis Lu MD / elva Interpreting Provider: Jorge Luis Lu MD Consult Discharge Plan - Plan Referrals: NONE,PCP [Primary Care Provider] -
--- NOTE | 2019-02-04 11:20 | Nephrology Progress Note ---
Date of Encounter: 02/04/19 Time of Encounter: 08:00 - Assessment and Plan (1) End stage renal disease on dialysis Status: Chronic Continue CVVHDF at Net+100mL/hr for his ongoing anasarca. Clearance going well with Lilly at 1500 and 1500 providing an Effluent dose of 25. BFR at 200. Unable to use citrate for regional anticoagulation d/t national shortage of IV Calcium and his thrombocytopenia is prohibitive to use a heparin drip. Discussed in detail with the ICU team. Right Femoral Temp HD catheter still working. He had +BCx before it's placement. Recommend upgrading to an IJ temporary HD catheter on Wednesday. Thank you. (2) Hypophosphatemia Status: Acute (3) Altered mental status Status: Acute Qualifiers: Altered mental status type: unspecified Qualified Code(s): R41.82 - Altered mental status, unspecified (4) Bacteremia Status: Acute (5) Hypotension Status: Acute Qualifiers: Hypotension type: unspecified hypotension type Qualified Code(s): I95.9 - Hypotension, unspecified (6) Rhabdomyolysis Status: Resolved Qualifiers: Rhabdomyolysis type: non-traumatic Qualified Code(s): M62.82 - Rhabdomyolysis (7) Thrombocytopenia Status: Chronic Subjective Principal diagnosis: Septic shock Interval history: The patient remains intubated, thus limiting the subjective history. I discussed his care in detail with the ACCORDION REPAIRER. Objective - Vital Signs Vital signs: Vital Signs Temp Pulse Resp BP Pulse Ox 02/04/19 11:00 76 28 84/66 98 02/04/19 10:00 95.8 F L 70 28 91/73 98 02/04/19 09:45 28 92/74 98 02/04/19 09:00 66 28 102/79 99 02/04/19 08:00 95.3 F L 66 28 85/61 99 02/04/19 07:37 74 02/04/19 07:30 28 100/79 99 02/04/19 07:00 72 28 73/57 98 02/04/19 06:00 75 31 95/71 97 02/04/19 05:22 28 96 02/04/19 05:00 73 28 102/81 98 02/04/19 04:00 97.8 F 84 28 133/83 99 02/04/19 03:55 28 99 02/04/19 03:30 84 09/28/19 03:00 82 28 86/54 97 02/04/19 02:00 90 30 122/84 98 02/04/19 01:00 90 33 120/70 95 02/04/19 00:22 31 93 02/04/19 00:00 98.5 F 96 29 91/56 93 02/03/19 23:30 98 02/03/19 23:00 99 28 99/59 92 02/03/19 22:37 28 92 02/03/19 22:00 102 28 92/57 94 02/03/19 21:00 100 28 99/62 94 02/03/19 20:10 100 02/03/19 20:00 98.7 F 99 29 90/51 96 02/03/19 19:56 30 96 02/03/19 19:00 108 30 83/54 30 02/03/19 18:00 108 30 95/59 30 02/03/19 17:00 103 31 111/67 97 02/03/19 16:00 98.5 F 106 28 100/63 96 02/03/19 15:25 29 105/65 96 02/03/19 15:00 106 28 95/61 96 02/03/19 14:00 107 28 86/55 96 02/03/19 13:30 28 82/52 96 02/03/19 13:00 112 28 82/52 96 02/03/19 12:00 99.6 F 112 28 84/52 96 02/03/19 11:50 17 81/53 95 Intake and Output 02/03/19 02/04/19 02/04/19 23:59 07:59 15:59 Intake Total 4194. 763.9 / 1060.8 296.9 / 1060.8 Output Total 4 / 6913 1718 / 2708 990 / 2708 Balance -147.2 / -2717.2 -954.1 / -1647.2 -693.1 / -1647.2 Intake: IV Fluids 4194. 763.9 / 1060.8 296.9 / 1060.8 PrismaSATE BGK 4/2.5 5,000 ML @ 0 / 0 0 / 0 0 / 0 1500 mls/hr CRRT [facility] Rx#: [id number] Amiodarone Drip Premix 360mg/ 206.9 / 406.9 100.3 / 100.3 200mL 360 mg In 200 ml @ 0.5 MG /MIN 16.667 mls/hr IVC [facility] Rx#:[id number] FentaNYL (PF) 1,000 MCG In 0.9 223.2 / 410.0 88.8 / 88.8 % Sodium Chloride 80 ML @ 50 MCG/HR 5 mls/hr IVC CONT [facility] Rx #:[id number] Heparin 25,000 UNIT/250 ML D5W 128.5 / 495.5 25,000 unit In 250 ml @ 14 UNIT /KG/HR 18.004 mls/hr IVC . [id number] [facility] Rx#:[id number] Versed 50 MG In 0.9 % Sodium 157.6 / 257.6 67.6 / 67.6 Chloride 90 ML @ 2 MG/HR 4 mls/ hr IVC CONT [facility] Rx#:[id number] Levophed 8 MG In 0.9 % Sodium 342.8 / 683.4 50.4 / 50.4 Chloride 250 ML @ 0.5 MCG/MIN 0 .968 mls/hr IVC CONT [facility] Rx#: [id number] Phenylephrine 50 MG In 0.9 % 643.6 / 1322.3 371.4 / 371.4 Sodium Chloride 250 ML @ 100 MCG/MIN 30.6 mls/hr IVC CONT [facility] Rx#:[id number] Vasostrict 40 UNIT In Dextrose 21.9 / 77.8 24.6 / 24.6 5% 100 ML @ 0.03 UNIT/MIN 4.59 mls/hr IVC .[id number] [facility] Rx#: [id number] Zosyn 3.375 GM In 0.9 % Sodium 192.3 / 292.3 60.8 / 107.7 46.9 / 107.7 Chloride (Mini-Bag +) 100 ML @ 25 mls/hr IVPB Q8H [facility] Rx#: [id number] Vancocin 1,000 MG In 0.9 % 250 / 250 Sodium Chloride 250 ML @ 167 mls/hr IVPB ONCE ONE Rx#: [id number] Output: Rectal Tube 50 / 250 0 / 0 0 / 0 Catheter 0 / 0 0 / 0 0 / 0 Gastric Drainage 50 / 100 250 / 250 Fluid Removed by Prismaflex 1963 6563 1468 / 2458 990 / 2458 Other: Weight 125.7 kg 123.75 kg 123.75 kg Blood Glucose* 126 135 148 Patient Weight 02/04/19 23:59 Weight 123.75 kg - General Appearance General appearance: Present: severe distress, chronically ill, sedated on ventilator, intubated EENT: Present: ATNC Neck: Present: supple Respiratory: Present: rales, course breath sounds Cardiology: Present: edema, regular rate, regular rhythm, normal S1, normal S2 Dialysis Vascular Access: Arteriovenous Graft (left mid arm without thrill or bruit) Additional Comments: He also has a right femoral temporary HD catheter, with a well adhered Tegaderm and no appearance of erythema Gastrointestinal: Present: normoactive bowel sounds, no guarding, obese, distended Integumentary: Present: warm and dry Neurologic: Present: obtunded Musculoskeletal: Present: no cyanosis, no clubbing - Lab 02/07/19 03:20 02/07/19 03:20 Most recent lab results 02/04/19 02/04/19 03:10 05:18 ABG pH 7.32 ABG pCO2 38 ABG pO2 92 ABG HCO3 20 L ABG O2 Saturation 97 Calcium 9.4 Phosphorus 2.4 L Magnesium 2.4 Consult Discharge Plan - Plan Referrals: NONE,PCP [Primary Care Provider] -
[2019-02-04 11:25] LABS: INR 1.3; Prothrombin Time 14.3 Seconds (9.4-12.1)
[2019-02-04] MEDS: Amiodarone Premix 360 MG/200 ML BAG IVC SCH (11:44)
[2019-02-04] MEDS: *HR* Amiodarone 200 MG TABLET PO SCH (13:57)
--- NOTE | 2019-02-04 20:00 | Infectious Disease Consult ---
Infectious Disease-Consult - Encounter Date/Time Date of Encounter: 02/04/19 Time of Encounter: 19:38 - Data of Consult Patient: new to practice Reason for consult: persistent MRSA bacteremia Consult date: 02/04/19 Requesting Physician: Maria Isabel Cooper MD Primary Care Provider: PCP NONE - HPI HPI: patient is a 48 year old gentleman who presented to [place] on 01/31/19 with AMS, we are consulted on 02/04 for persistent bacteremia with MRSA. Patient with PMH mentioned below including DM2 complicated by ESRD on HD for years also with CHF, A fib who lives here in [place] with his mother and currently not work was in the usual state of health until a few days prior to admission. Most of the info was taken from family and medical records since patient is intubated, sedated on and multiple pressors. Patient has been not feeling well for 2-3 days prior to admission and he did not have any URI symptom s as per family. Patient on the day of admission was found unresponsive for unknown duration of time. Patient was transferred to ED for evaluation. Since admission, patient was febrile with tmax of 102.6F, he was in septic shock, tachycardic. Presenting WBC 17 with 87%N no bands, no lactic acid. elevated CK at 1200 and troponin leak. Blood cultures on 01/31, 02/01 and 02/03 were all positive for MRSA 2/2 sets. source not clear. patient didnt have any cuts but he does have chornic ulcers of bilateral feet that are not stageble and has a fistula for dialysis. CXR did not reveal any obvious pneumonia. CT abodmen noted: Mild stranding of fat around the pancreas which could reflect acute pancreatitis. Correlate with lipase and amylase levels. Mild thickening of both adrenal glands with mild surrounding inflammatory change, possibly reflecting adrenalitis. Diverticulosis coli, without evidence of diverticulitis or colitis. Cardiomegaly and trace bilateral pleural effusions. Absent right kidney and evidence of renal osteodystrophy. CT head noted no acute intracranail pathology. patient's dialysis fistula was not working and a femural catheter was placed. Patient was started on vancomycin and had persistent bactereima so we were asked to evaluate tpatient and make further recommendations. Currently patient is intubated sedated and has been on three pressors most of the day. - ROS Review of Systems: unable to obtain - Results CBC & Chem 7: 02/05/19 03:10 02/05/19 03:10 - Exam Vitals: Temp Pulse Resp BP Pulse Ox 97.6 F 88 30 66/58 98 02/04/19 16:00 02/04/19 19:00 02/04/19 19:00 02/04/19 19:00 02/04/19 19:00 Exam: GENERAL: Laying in bed, intubated, sedated on pressors HEAD: Normocephalic atraumatic EYES: PERRLA, EOMI, no conjunctival hemorrhage, sclera anicteric ENT: Mucous membranes moist, no oral thrush NECK: Supple. trachea midline, no stridor LUNGS: Chest expanding symmetrically. Lungs sounds audible both lung hurtado. crackles throughout. no wheezing CV: irregularly irregular. tachycardic ABDOMEN: firm, distended, hypoactive bowel sounds BACK: unable to assess EXTREMITY: Adequate perfusion. diffuse edema bilateral lower extremities. f emoral line with no signs of infection right groin SKIN: Normal color. No rash. no endocarditis stigmata NEURO: intubated, sedated. unable to assess PSYCH: unable to assess Insulin ASPART [NovoLOG] 0 unit SQ TIDWM 02/09/17 [History] Apixaban [Eliquis] 5 mg PO BID 11/22/18 [History] Fluticasone Propionate Nasal [Flonase] 1 spray NS DAILY PRN 11/22/18 [History] Calcium Acetate [Phos-LO] 3,335 mg PO TIDWM 11/23/18 [History] Midodrine HCl 10 mg PO TID 11/23/18 [History] Pregabalin [Lyrica] 100 mg PO TID 11/23/18 [History] Insulin Glargine,Hum.rec.anlog [Lantus Solostar] 25 unit SQ BID 12/15/18 [History] Tilden-3/Dha/Epa/Fish Oil [Fish Oil 1,000 mg Softgel] 2 cap PO QPM 12/15/18 [History] Atorvastatin [Lipitor] 40 mg PO HS 30 Days #30 tablet 12/29/18 [Rx] Carvedilol [Coreg] 6.25 mg PO BID 01/31/19 [History] Allergy/AdvReac Type Severity Reaction Status Date / Time hydrocodone [From [place]] Allergy Intermediate Hives Verified 12/14/18 20:29 lanolin AdvReac Swelling Verified 12/14/18 20:29 [From [facility] mineral oil AdvReac Swelling Verified 12/14/18 20:29 [From [facility] petrolatum,white AdvReac Swelling Verified 12/14/18 20:29 [From [facility] - Assessment and Plan (1) Septic shock Current Visit: Yes Status: Acute due to MRSA bacteremia SNOMED Code(s): 66684875 (2) MRSA bacteremia Current Visit: Yes Status: Acute blood culture 01/31, 02/01 and 02/03 2/2 sets positive for MRSA no hardware source not clear (could be related to dialysis?) fistula left forearm non functional CT head and chest with no obvious seeding patient unstable now to go to [facility] SNOMED Code(s): 17433692502560225 (3) Metabolic encephalopathy Current Visit: Yes Status: Acute SNOMED Code(s): 80757216 (4) Abdominal distention Current Visit: Yes Status: Acute etiology not clear CT abdomen notes possible adenitis and pancreatitis cortisol level and lipase/amylase WNL rectal tube intact with adequate output SNOMED Code(s): 26466245 (5) End stage renal disease on dialysis Current Visit: Yes Status: Chronic due to long standing DM 2 has fistula L forearm that is not functional U/S LT ext: Evidence for clot in the fistula in the medial aspect of the arm with some surrounding fluid. No color flow seen within the fistula' family tells me he was having dialysis via fistula until admission SNOMED Code(s): 038122062 (6) CHF (congestive heart failure) Current Visit: No Status: Chronic no AICD Qualifiers: SNOMED Code(s): 47269382 (7) Atrial fibrillation Current Visit: No Status: Chronic rate controlled on amiodarone Qualifiers: Atrial fibrillation type: chronic Qualified Code(s): I48.2 - Chronic atrial fibrillation SNOMED Code(s): 48290392 (8) Diabetes mellitus type 2, uncontrolled, with complications Current Visit: No Status: Acute SNOMED Code(s): 53709880, 752075586 (9) Rhabdomyolysis Current Visit: Yes Status: Acute Qualifiers: Rhabdomyolysis type: non-traumatic Qualified Code(s): M62.82 - Rhabdomyolysis SNOMED Code(s): 579013249 (10) Callus of foot Current Visit: Yes Status: Acute SNOMED Code(s): 468747489 (11) Acute respiratory failure Current Visit: Yes Status: Acute likely due to septic shock, fluid overlaod and CHF no obvious pneumonia Qualifiers: Respiratory failure complication: unspecified whether with hypoxia or hypercapnia Qualified Code(s): J96.00 - Acute respiratory failure, unspecified whether with hypoxia or hypercapnia SNOMED Code(s): 02545234 - Recommendations Recommendations: continue vancomycin goal vanc trough around 20 start daptomycin 1 gram ; pharmacy to help with doration since on CRRT d/w pharmacy staff check baseline CK level vascular to evaluate the fistula; concern that fistula might be the source with fluid collection and blood clot ? repeat blood cultures in 48 hours QUIQUE done and reveals no vegetations Past Med Surg Social Fam HX - Past Medical History Medical history: arthritis, atrial fibrillation, cardiomyopathy, CHF, COPD, diabetes, dialysis, GERD, hyperlipidemia, hypertension, osteoporosis, renal disease, other Additional medical history: marijuana Psychiatric history: anxiety, depression, PTSD, other - Past Surgical History Surgical History: herniorrhaphy, vascular surgery, other Additional surgical history: dialysis graft - Social History Smoking Status: Current every day smoker Smokeless Tobacco Status: No Alcohol use: none Drug use: marijuana - Family History Father Living Status: Hx Family Cardiac Disorders: Yes (HTN) Hx Family Respiratory Disorders: No Hx Family Cancer: No Hx Family GI Disorders: No Hx Family Endocrine Disorder: No Hx Family Neuromuscular Disorders: No Hx Family Neurologic Disorders: No Hx Family HEENT Disorders: No Hx Family Autoimmune Disorders: No Mother Adopted: No Living Status: Still Living Hx Family Cardiac Disorders: Yes Hx Family Endocrine Disorder: Yes Consult Discharge Plan - Plan Referrals: NONE,PCP [Primary Care Provider] -
[2019-02-04] MEDS: Vasopressin 40 UNIT in D5% in Water 100 ML IVC SCH (20:19)
--- NOTE | 2019-02-04 20:43 | Event Note ---
Date of Encounter: 02/04/19 Time of Encounter: 08:00 During chart review around 8 PM and found that the blood pressure after 2:00 pm has significantly dropped . I called the nurse at 8 PM tonight to stop Fluid removal possibly giving fluid back. I called Dr. Eduar Gann informed him that I started fluid removal.
[2019-02-04 20:46] LABS: Red Cell Distribution Width 19.4 % (11.5-14.5)
[2019-02-04 20:48] LABS: ABG Base Excess -3 mEq/L (-2 to 3); ABG HCO3 24 mEq/L (21-27); ABG Oxygen Saturation 95 % (95-98); ABG PCO2 45 mmHg (35-45); ABG PH 7.33 pH Units (7.32-7.45); ABG PO2 78 mmHg (85-104); ABG TCO2 25 mEq/L (20-26); Blood Gas Modality ASSIST CONTROL; Blood Gas PEEP 8 cm H2O; Blood Gas VT 530 cc
[2019-02-04 20:48] LABS: Basophils % 0.3 %; Eosinophils # 0.1 K/mcL (0.0-0.6); Eosinophils % 0.6 %; Hematocrit 45.5 % (37.5-50.1); Hemoglobin 14.6 g/dL (12.9-16.9); Immature Granulocytes % 1.7 % (0-4); Immature Platelets 18.8 % (1.1-6.1); Lymphocytes # 0.6 K/mcL (0.6-4.6); Lymphocytes % 5.2 %; Mean Corpuscular HGB Conc 32.1 g/dL (31.6-35.5); Mean Corpuscular Hemoglobin 27.1 pg (28.0-33.3); Mean Corpuscular Volume 84.4 fL (83.0-100.0); Monocytes # 0.8 K/mcL (0.0-1.3); Monocytes % 7.2 %; Neutrophils # 9.8 K/mcL (1.6-8.9); Red Blood Count 5.39 M/mcL (4.19-5.50); White Blood Count 11.5 K/mcL (4.3-11.1)
[2019-02-04 20:49] LABS: Platelet Count 49 K/mcL (140-400)
[2019-02-04 20:52] LABS: ABG Ionized Calcium 1.19 mmol/L (1.15-1.35)
[2019-02-04] MEDS: DAPTOmycin 1,000 MG in 0.9 % Sodium Chloride 100 ML IVPB SCH (21:03)
[2019-02-04 21:05] LABS: Calcium 9.4 mg/dL (8.6-10.3); Magnesium 2.3 mg/dL (1.6-2.6)
[2019-02-05] MEDS: FentaNYL (PF) 1,000 MCG in 0.9 % Sodium Chloride 80 ML IVC SCH ×2 (00:40→10:53)
[2019-02-05] MEDS: PrismaSATE BGK 4/2.5 5,000 ML CRRT SCH ×14 (00:40→21:06)
[2019-02-05] MEDS: Vasopressin 40 UNIT in D5% in Water 100 ML IVC SCH (02:29)
[2019-02-05] MEDS: Phenylephrine 50 MG in 0.9 % Sodium Chloride 250 ML IVC SCH ×5 (03:00→22:20)
[2019-02-05] MEDS: Insulin LISPRO 300 UNITS/3 ML VIAL SQ SCH ×6 (03:34→23:23)
[2019-02-05] MEDS: Artificial Tears SOLN 15 ML BOTTLE BOTH EYES SCH ×6 (03:34→23:23)
[2019-02-05 03:40] LABS: Basophils % 0.2 %; Eosinophils % 0.1 %; Hematocrit 44.1 % (37.5-50.1); Hemoglobin 13.8 g/dL (12.9-16.9); Immature Granulocytes % 3.3 % (0-4); Immature Platelets 19.4 % (1.1-6.1); Lymphocytes # 0.8 K/mcL (0.6-4.6); Lymphocytes % 5.7 %; Mean Corpuscular HGB Conc 31.3 g/dL (31.6-35.5); Mean Corpuscular Hemoglobin 26.8 pg (28.0-33.3); Mean Corpuscular Volume 85.8 fL (83.0-100.0); Monocytes # 1.3 K/mcL (0.0-1.3); Monocytes % 9.9 %; Neutrophils # 10.9 K/mcL (1.6-8.9); Nucleated Red Blood Cells 0.1 /100 WBC (0); Red Blood Count 5.14 M/mcL (4.19-5.50); Red Cell Distribution Width 19.8 % (11.5-14.5); Segmented Neutrophils % 80.8 %; White Blood Count 13.5 K/mcL (4.3-11.1)
[2019-02-05 03:41] LABS: Platelet Count 46 K/mcL (140-400)
[2019-02-05] MEDS: Ipratropium/Albuterol Neb 3 ML IH SCH ×4 (03:46→22:25)
[2019-02-05 04:00] LABS: Calcium 9.6 mg/dL (8.6-10.3); Phosphorous 3.1 mg/dL (2.7-4.5); Potassium 4.2 mEq/L (3.5-5.1)
[2019-02-05] MEDS: Piperacillin/Tazobactam 3.375 GM in 0.9 % Sodium Chloride Mini Bag 100 ML IVPB SCH ×3 (04:06→19:55)
[2019-02-05 05:29] LABS: ABG Base Excess -4 mEq/L (-2 to 3); ABG HCO3 23 mEq/L (21-27); ABG Oxygen Saturation 96 % (95-98); ABG PCO2 46 mmHg (35-45); ABG PO2 92 mmHg (85-104); ABG TCO2 24 mEq/L (20-26); Blood Gas Modality ASSIST CONTROL; Blood Gas PEEP 8 cm H2O; Blood Gas VT 530 cc
--- NOTE | 2019-02-05 07:02 | Pulmonology Progress Note ---
<Tono Salazar L - Last Filed: 02/05/19 14:06> Date of Encounter: 02/05/19 Time of Encounter: 06:59 Assessment and Plan (1) Shock Current Visit: Yes Status: Acute Shock, hemodynamic instability - Cardiogenic vs septic - Afib, no longer in RVR - Hypotension requiring two pressers, phenylephrine, vasopressin - Three sets of blood cultures growing MRSA - Unknown source of infection, possible PNA - Vanc and zosyn day 6 - Daptomycin day 2 - Elevated WBC - Lactate 1.4>>2.0 - ABG pH 7.30 - Continue full vent support - Cardiology consulted - Echo: Severe LV dysfunction. LVEF 20-25% - Nephrology, Continuing CRRT - UQIQUE: Valvular vegetation/abcess not present - Random cortisol 40.1 - Infectious disease consult - Planning for terrell CT for identification of infection source, when patient is more stable - albumin, 1L 5%, on 02/04 amd 02/05. 2 L total - Begin Hydrocortisone 50 q6h (2) Bacterial endocarditis Current Visit: Yes Status: Acute Bacterial endocarditis - Three sets of blood cultures MRSA positive - MRSA gene positive - TTE inadequate for endocarditis - QUIQUE: no evidence of bacterial endocarditis - Continuing vanc and zosyn - Began daptomycin on02/04 Qualifiers: Chronicity: acute Qualified Code(s): I33.0 - Acute and subacute infective endocarditis (3) Cellulitis in diabetic foot Current Visit: Yes Status: Acute Foot cellulitis - Suspected BL foot cellulitis - BL LE edema - Ulcer on L foot - Podiatry consulted, diabetic foot unlikely source of bacteremia (4) Atrial fibrillation with RVR Current Visit: Yes Status: Acute Afib with RVR - History of Afib - Refractory to two electric cardioversions in the ED - On eliquis at home - Anticoagulation held - Cardiology consulted - Continuing amio drip - No longer in RVR (5) Diabetes mellitus Current Visit: No Status: Chronic Hx of DM - Accuchecks q4h - High-dose corrective insulin - A1C 12.2% on 12/15/18 Qualifiers: Diabetes mellitus type: type 2 Diabetes mellitus intermediate insulin use: unspecified intermediate insulin use status Diabetes mellitus complication status: with kidney complications Diabetes mellitus complication detail: with chronic kidney disease Chronic kidney disease stage: on chronic dialysis Qualified Code(s): E11.22 - Type 2 diabetes mellitus with diabetic chronic kidney disease; N18.6 - End stage renal disease; Z99.2 - Dependence on renal dialysis (6) Elevated troponin Current Visit: Yes Status: Acute Elevated troponin - 0.13>>0.12 - Cardiology: Suspected demand ischemia in the setting of sepsis/shock/afib - Echo: severe LV dysfunction (7) Encephalopathy acute Current Visit: No Status: Resolved Acute encephalopathy - Likely secondary to shock and metabolic disturbances - Continue CRRT - Currently sedated on versed - Minimal response to stimuli (8) End stage renal disease on dialysis Current Visit: Yes Status: Chronic ESRD - Nephrology consulted - CRRT Began on 02/02/19, continuing - Temporary dialysis catheter in R groin via IR - Slowing fluid removal with CRRT anai to hypotension (9) Nonischemic cardiomyopathy Current Visit: Yes Status: Chronic Nonischemic Cardiomyopathy - Cardiology consulted - Monitor I&Os and weight - Echo as above - EF 20% NICMP on previous echo (10) Rhabdomyolysis Current Visit: Yes Status: Acute Rhabdomyolysis - CK level improving - Baseline CK before beginning daptomycin: 173 Qualifiers: Rhabdomyolysis type: non-traumatic Qualified Code(s): M62.82 - Rhabdomyolysis (11) Tobacco abuse Current Visit: No Status: Chronic Nicotine patch (12) DVT prophylaxis Current Visit: No Status: Acute SCD (13) Thrombocytopenia Current Visit: Yes Status: Acute Thrombocytopenia - Platelet level decreasing - Heparin withheld - SCD for DVT prophylaxis Subjective Principal diagnosis: Septic shock Interval history: Last night fluid removal was stopped as CRRT due to worsening blood pressure, he remains on CRRT. Afevrile this morning and overnight events. He started on daptomycin yesterday. He remains unresponsive. Objective PUL Vital signs: Last Vital Signs Temp 98.6 F 02/05/19 04:00 Pulse 83 02/05/19 06:00 Resp 28 02/05/19 06:00 BP 87/60 02/05/19 06:00 Pulse Ox 97 02/05/19 06:00 Gen: Vitals noted. Hypotensive on vasopressors. Afib. Intubated and sedated Eyes: anicteric sclerae, moist conjunctivae. Pupils 4mm, round, equal and minimally reactive to light HENT: Atraumatic, normocephalic; oropharynx clear with moist mucous membranes and no mucosal ulcerations Neck: Trachea midline, supple Cardiac: RRR, S1S2, no extra heart sounds Peripheral pulses weak. Pulmonary: Coarse mechanical breath sounds BL, no rales or rhonchi, equal chest expansion Abdomen: soft, full, non-distended, no rigidity. No masses or hepatosplenomegaly Extremities: BL lower extremity edema. Dry scaly skin on feet/ankles. R foot: swollen more than left. No noticeable lesions or ulcers. L foot: 2-3 cm round, scabbed, ulcer on bottom of foot. Skin: Warm and dry. Dry scaly skin on BL LEs, unchanged from rpevious exams Neuro: No gag or corneal reflex. Minimal to no response to external stimuli. Analgesia: fentanyl gtt Sedation: versed gtt SBT: none Glycemic control: High-dose corrective insulin Bowel regimen:none Activity: none Fluids: MIVF Electrolytes: replete as necessary Nutrition: Holding tube feeds due to high residuals GI ppx: PPI Lines: ET, OG, winter, R fem CVC and temp dialysis catheter Consults: pulm, cardio, Nephrology, Palliative, Podiatry, Infectious disease, nutrition Code: Full code Dispo: ICU Ventilator Settings Ventilator Settings: Ventilator Settings, Last 8 Hours Ventilator Tidal Volume 530 Setting Ventilator Tidal Volume 530 Setting Ventilator Tidal Volume 530 Setting Ventilator Tidal Volume 530 Setting Ventilator Tidal Volume 530 Setting Ventilator Tidal Volume 530 Setting Ventilator Tidal Volume 530 Setting Ventilator Tidal Volume 530 Setting Ventilator Tidal Volume 530 Setting Ventilator Tidal Volume 530 Setting Ventilator Tidal Volume 530 Setting Ventilator Tidal Volume 530 Setting Ventilator Respiratory Rate 28 Setting Ventilator Respiratory Rate 28 Setting Ventilator Respiratory Rate 28 Setting Ventilator Respiratory Rate 28 Setting Ventilator Respiratory Rate 28 Setting Ventilator Respiratory Rate 28 Setting Ventilator Respiratory Rate 28 Setting Ventilator Respiratory Rate 28 Setting Ventilator Respiratory Rate 28 Setting Ventilator Respiratory Rate 28 Setting Ventilator Respiratory Rate 28 Setting Ventilator Respiratory Rate 28 Setting Actual Respiratory Rate 28 Actual Respiratory Rate 28 Actual Respiratory Rate 28 Actual Respiratory Rate 28 Actual Respiratory Rate 28 Actual Respiratory Rate 28 Actual Respiratory Rate 28 Actual Respiratory Rate 28 Actual Respiratory Rate 28 Actual Respiratory Rate 28 Actual Respiratory Rate 28 Positive End Expiratory 8 Pressure Positive End Expiratory 8 Pressure Positive End Expiratory 8 Pressure Positive End Expiratory 8 Pressure Positive End Expiratory 8 Pressure Positive End Expiratory 8 Pressure Positive End Expiratory 8 Pressure Positive End Expiratory 8 Pressure Positive End Expiratory 8 Pressure Positive End Expiratory 8 Pressure Positive End Expiratory 8 Pressure Positive End Expiratory 8 Pressure Peak Inspiratory Airway 33 Pressure Peak Inspiratory Airway 33 Pressure Peak Inspiratory Airway 33 Pressure Peak Inspiratory Airway 32 Pressure Peak Inspiratory Airway 32 Pressure Peak Inspiratory Airway 35 Pressure Peak Inspiratory Airway 33 Pressure Peak Inspiratory Airway 32 Pressure Peak Inspiratory Airway 32 Pressure Peak Inspiratory Airway 32 Pressure Peak Inspiratory Airway 30 Pressure Results - Laboratory Findings CBC and BMP: 02/05/19 03:10 02/05/19 03:10 ABG ABG pH 7.30 pH Units (7.32-7.45) L 02/05/19 05:25 ABG pCO2 46 mmHg (35-45) H 02/05/19 05:25 ABG pO2 92 mmHg (85-104) 02/05/19 05:25 ABG O2 Saturation 96 % (95-98) 02/05/19 05:25 PT/INR, D-dimer PT 14.3 Seconds (9.4-12.1) H 02/04/19 03:10 Abnormal lab findings: Abnormal lab results WBC 13.5 K/mcL (4.3-11.1) H 02/05/19 03:10 RBC 5.57 M/mcL (4.19-5.50) H 02/02/19 03:15 MCH 26.8 pg (28.0-33.3) L 02/05/19 03:10 MCHC 31.3 g/dL (31.6-35.5) L 02/05/19 03:10 RDW 19.8 % (11.5-14.5) H 02/05/19 03:10 Plt Count 46 K/mcL (140-400) L 02/05/19 03:10 Neutrophils # 10.9 K/mcL (1.6-8.9) H 02/05/19 03:10 Lymphocytes # 0.5 K/mcL (0.6-4.6) L 02/02/19 03:15 Monocytes # 1.4 K/mcL (0.0-1.3) H 02/04/19 03:10 Nucleated RBCs/100 WBC 0.1 /100 WBC (0) H 02/05/19 03:10 Platelet Estimate Decreased (Normal) L 02/03/19 04:15 Immature Plt Fraction 19.4 % (1.1-6.1) H 02/05/19 03:10 Polychromasia 1+ (Not Present) A 02/03/19 04:15 PT 14.3 Seconds (9.4-12.1) H 02/04/19 03:10 APTT 46.1 Seconds (26.0-36.0) H 02/01/19 05:06 Heparin Anti-Xa, Unfract 0.29 IU/mL (0.30-0.70) L 02/03/19 11:00 ABG pH 7.30 pH Units (7.32-7.45) L 02/05/19 05:25 ABG pCO2 46 mmHg (35-45) H 02/05/19 05:25 ABG pO2 78 mmHg (85-104) L 02/04/19 20:44 ABG HCO3 20 mEq/L (21-27) L 02/04/19 05:18 ABG Total CO2 27 mEq/L (20-26) H 02/01/19 04:58 ABG O2 Saturation 94 % (95-98) L 02/02/19 11:16 ABG Base Excess -4 mEq/L (-2 to 3) L 02/05/19 05:25 VBG pCO2 32 mmHg (41-51) L 02/01/19 17:38 VBG pO2 209 mmHg (25-50) H 02/01/19 17:38 VBG HCO3 19 mEq/L (21-27) L 02/01/19 17:38 VBG Hematocrit 57.0 % (37.5-50.1) H 02/01/19 17:38 VBG Lactic Acid 3.7 mmol/L (0.5-2.2) H 02/01/19 17:38 Venous Sodium 134 mEq/L (135-145) L 02/01/19 17:38 Sodium 134 mEq/L (136-145) L 02/05/19 03:10 Potassium 5.2 mEq/L (3.5-5.1) H 02/01/19 02:25 Chloride 94 mEq/L (98-107) L 02/01/19 02:25 Carbon Dioxide 21 mEq/L (23-29) L 02/05/19 03:10 BUN 32 mg/dL (6-20) H 02/03/19 04:00 Creatinine 1.97 mg/dL (0.70-1.30) H 02/05/19 03:10 Est GFR ( Amer) 44 (> 60) L 02/05/19 03:10 Est GFR (Non-Af Amer) 36 (> 60) L 02/05/19 03:10 Glucose 177 mg/dL (70-105) H 02/05/19 03:10 Whole Bld Glucose 141 mg/dl (65-95) H 02/01/19 17:38 POC Glucose 130 mg/dL (70-99) H 02/04/19 23:07 Calculated Osmolality 303 (280-300) H 02/01/19 02:25 Calcium 10.4 mg/dL (8.6-10.3) H 01/31/19 19:23 Venous Ioniz Calcium 0.86 mmol/L (1.15-1.35) L 02/02/19 05:46 Phosphorus 2.4 mg/dL (2.7-4.5) L 02/04/19 03:10 Total Bilirubin 4.3 mg/dL (0.3-1.0) H 02/03/19 04:00 Direct Bilirubin 0.5 mg/dL (0.0-0.2) H 01/31/19 19:23 Alkaline Phosphatase 158 Units/L (34-104) H 02/03/19 04:00 Creatine Kinase 283 Units/L (30-223) H 02/04/19 03:10 Troponin I 0.12 ng/mL (< 0.04) H* 02/01/19 02:25 Serum Total Protein 5.9 g/dL (6.4-8.9) L 02/03/19 04:00 Albumin 2.9 g/dL (3.5-5.7) L 02/03/19 04:00 Albumin/Globulin Ratio 1.0 (1.1-2.2) L 02/03/19 04:00 Lipase 4 Units/L (11-82) L 02/01/19 02:25 Hep Bs Antibody < 3.10 mIU/mL (10.00-) L 02/01/19 13:25 Staph aureus (PCR) DETECTED (Not Detect) A 02/03/19 08:37 mecA-Methicil Res Gene DETECTED (Not Detect) A 02/03/19 08:37 - Microbiology Findings Microbiology Findings: Microbiology, Last 48 Hours 02/03/19 07:41 Blood Culture - Preliminary Central Venous Catheter Gram Positive Cocci 02/03/19 08:37 Blood Culture - Preliminary Peripheral Venipuncture Gram Positive Cocci 01/31/19 19:23 Blood Culture - Final Peripheral Venipuncture Methicillin Resistant S.aureus 02/01/19 22:36 Blood Culture - Final Peripheral Venipuncture Methicillin Resistant S.aureus 02/01/19 22:36 Blood Culture - Final Peripheral Venipuncture Methicillin Resistant S.aureus 01/31/19 19:23 Blood Culture - Final Peripheral Venipuncture Methicillin Resistant S.aureus - Clinical Findings Intake & Output: Intake & Output 02/04/19 02/04/19 02/05/19 15:59 23:59 07:59 Intake Total 1068.0 / 3954.1 2113.2 / 3954.1 785.7 / 785.7 Output Total 2062 / 4848 1062 / 4848 45 / 45 Balance -994.0 / -893.9 1051.2 / -893.9 740.7 / 740.7 Weight 123.75 kg 123.75 kg 123.7 kg Consult Discharge Plan - Plan Referrals: NONE,PCP [Primary Care Provider] - <Marbella Sam - Last Filed: 02/05/19 21:09> Date of Encounter: 02/05/19 Objective PUL Vital signs: Last Vital Signs Temp 97.9 F 02/05/19 20:00 Pulse 78 02/05/19 20:00 Resp 28 02/05/19 20:00 BP 96/54 02/05/19 20:00 Pulse Ox 99 02/05/19 20:00 Ventilator Settings Ventilator Settings: Ventilator Settings, Last 8 Hours Ventilator Tidal Volume 530 Setting Ventilator Tidal Volume 530 Setting Ventilator Tidal Volume 530 Setting Ventilator Tidal Volume 530 Setting Ventilator Tidal Volume 530 Setting Ventilator Tidal Volume 530 Setting Ventilator Tidal Volume 530 Setting Ventilator Tidal Volume 530 Setting Ventilator Tidal Volume 530 Setting Ventilator Tidal Volume 530 Setting Ventilator Tidal Volume 530 Setting Ventilator Tidal Volume 530 Setting Ventilator Respiratory Rate 28 Setting Ventilator Respiratory Rate 28 Setting Ventilator Respiratory Rate 28 Setting Ventilator Respiratory Rate 28 Setting Ventilator Respiratory Rate 28 Setting Ventilator Respiratory Rate 28 Setting Ventilator Respiratory Rate 28 Setting Ventilator Respiratory Rate 28 Setting Ventilator Respiratory Rate 28 Setting Ventilator Respiratory Rate 28 Setting Ventilator Respiratory Rate 28 Setting Ventilator Respiratory Rate 28 Setting Actual Respiratory Rate 28 Actual Respiratory Rate 28 Actual Respiratory Rate 28 Actual Respiratory Rate 28 Actual Respiratory Rate 28 Actual Respiratory Rate 28 Actual Respiratory Rate 28 Actual Respiratory Rate 28 Actual Respiratory Rate 28 Actual Respiratory Rate 28 Actual Respiratory Rate 28 Actual Respiratory Rate 28 Positive End Expiratory 8 Pressure Positive End Expiratory 8 Pressure Positive End Expiratory 8 Pressure Positive End Expiratory 8 Pressure Positive End Expiratory 8 Pressure Positive End Expiratory 8 Pressure Positive End Expiratory 8 Pressure Positive End Expiratory 8 Pressure Positive End Expiratory 8 Pressure Positive End Expiratory 8 Pressure Positive End Expiratory 8 Pressure Positive End Expiratory 8 Pressure Peak Inspiratory Airway 31 Pressure Peak Inspiratory Airway 31 Pressure Peak Inspiratory Airway 37 Pressure Peak Inspiratory Airway 37 Pressure Peak Inspiratory Airway 34 Pressure Peak Inspiratory Airway 33 Pressure Peak Inspiratory Airway 33 Pressure Peak Inspiratory Airway 33 Pressure Peak Inspiratory Airway 32 Pressure Peak Inspiratory Airway 32 Pressure Peak Inspiratory Airway 32 Pressure Peak Inspiratory Airway 32 Pressure Results - Laboratory Findings CBC and BMP: 02/05/19 03:10 02/05/19 03:10 ABG ABG pH 7.30 pH Units (7.32-7.45) L 02/05/19 05:25 ABG pCO2 46 mmHg (35-45) H 02/05/19 05:25 ABG pO2 92 mmHg (85-104) 02/05/19 05:25 ABG O2 Saturation 96 % (95-98) 02/05/19 05:25 PT/INR, D-dimer PT 14.3 Seconds (9.4-12.1) H 02/04/19 03:10 Abnormal lab findings: Abnormal lab results WBC 13.5 K/mcL (4.3-11.1) H 02/05/19 03:10 RBC 5.57 M/mcL (4.19-5.50) H 02/02/19 03:15 MCH 26.8 pg (28.0-33.3) L 02/05/19 03:10 MCHC 31.3 g/dL (31.6-35.5) L 02/05/19 03:10 RDW 19.8 % (11.5-14.5) H 02/05/19 03:10 Plt Count 46 K/mcL (140-400) L 02/05/19 03:10 Neutrophils # 10.9 K/mcL (1.6-8.9) H 02/05/19 03:10 Lymphocytes # 0.5 K/mcL (0.6-4.6) L 02/02/19 03:15 Monocytes # 1.4 K/mcL (0.0-1.3) H 02/04/19 03:10 Nucleated RBCs/100 WBC 0.1 /100 WBC (0) H 02/05/19 03:10 Platelet Estimate Decreased (Normal) L 02/03/19 04:15 Immature Plt Fraction 19.4 % (1.1-6.1) H 02/05/19 03:10 Polychromasia 1+ (Not Present) A 02/03/19 04:15 PT 14.3 Seconds (9.4-12.1) H 02/04/19 03:10 APTT 46.1 Seconds (26.0-36.0) H 02/01/19 05:06 Heparin Anti-Xa, Unfract 0.29 IU/mL (0.30-0.70) L 02/03/19 11:00 ABG pH 7.30 pH Units (7.32-7.45) L 02/05/19 05:25 ABG pCO2 46 mmHg (35-45) H 02/05/19 05:25 ABG pO2 78 mmHg (85-104) L 02/04/19 20:44 ABG HCO3 20 mEq/L (21-27) L 02/04/19 05:18 ABG Total CO2 27 mEq/L (20-26) H 02/01/19 04:58 ABG O2 Saturation 94 % (95-98) L 02/02/19 11:16 ABG Base Excess -4 mEq/L (-2 to 3) L 02/05/19 05:25 VBG pCO2 32 mmHg (41-51) L 02/01/19 17:38 VBG pO2 209 mmHg (25-50) H 02/01/19 17:38 VBG HCO3 19 mEq/L (21-27) L 02/01/19 17:38 VBG Hematocrit 57.0 % (37.5-50.1) H 02/01/19 17:38 VBG Lactic Acid 3.7 mmol/L (0.5-2.2) H 02/01/19 17:38 Venous Sodium 134 mEq/L (135-145) L 02/01/19 17:38 Sodium 134 mEq/L (136-145) L 02/05/19 03:10 Potassium 5.2 mEq/L (3.5-5.1) H 02/01/19 02:25 Chloride 94 mEq/L (98-107) L 02/01/19 02:25 Carbon Dioxide 21 mEq/L (23-29) L 02/05/19 03:10 BUN 32 mg/dL (6-20) H 02/03/19 04:00 Creatinine 1.97 mg/dL (0.70-1.30) H 02/05/19 03:10 Est GFR ( Amer) 44 (> 60) L 02/05/19 03:10 Est GFR (Non-Af Amer) 36 (> 60) L 02/05/19 03:10 Glucose 177 mg/dL (70-105) H 02/05/19 03:10 Whole Bld Glucose 141 mg/dl (65-95) H 02/01/19 17:38 POC Glucose 130 mg/dL (70-99) H 02/04/19 23:07 Calculated Osmolality 303 (280-300) H 02/01/19 02:25 Calcium 10.4 mg/dL (8.6-10.3) H 01/31/19 19:23 Venous Ioniz Calcium 0.86 mmol/L (1.15-1.35) L 02/02/19 05:46 Phosphorus 2.4 mg/dL (2.7-4.5) L 02/04/19 03:10 Total Bilirubin 4.3 mg/dL (0.3-1.0) H 02/03/19 04:00 Direct Bilirubin 0.5 mg/dL (0.0-0.2) H 01/31/19 19:23 Alkaline Phosphatase 158 Units/L (34-104) H 02/03/19 04:00 Creatine Kinase 283 Units/L (30-223) H 02/04/19 03:10 Troponin I 0.12 ng/mL (< 0.04) H* 02/01/19 02:25 Serum Total Protein 5.9 g/dL (6.4-8.9) L 02/03/19 04:00 Albumin 2.9 g/dL (3.5-5.7) L 02/03/19 04:00 Albumin/Globulin Ratio 1.0 (1.1-2.2) L 02/03/19 04:00 Lipase 4 Units/L (11-82) L 02/01/19 02:25 Hep Bs Antibody < 3.10 mIU/mL (10.00-) L 02/01/19 13:25 Staph aureus (PCR) DETECTED (Not Detect) A 02/03/19 08:37 mecA-Methicil Res Gene DETECTED (Not Detect) A 02/03/19 08:37 - Microbiology Findings Microbiology Findings: Microbiology, Last 48 Hours 02/03/19 07:41 Blood Culture - Preliminary Central Venous Catheter Staphylococcus aureus 02/03/19 08:37 Blood Culture - Preliminary Peripheral Venipuncture Staphylococcus aureus - Clinical Findings Intake & Output: Intake & Output 02/05/19 02/05/19 02/05/19 07:59 15:59 23:59 Intake Total 924.2 / 2878.4 718.2 / 2878.4 1236 / 2878.4 Output Total 47 / 858 614 / 858 197 / 858 Balance 877.2 / 2020.4 104.2 / 2020.4 1039 / 2019.4 Weight 123.7 kg 123.7 kg 123.7 kg - Attending Attestation Attending Attestation I saw and evaluated this patient and my medical decision-making was reviewed with the Resident Physician. I agree with the documented findings, disposition and treatment plan as described except to the extent set forth below. We independently had [id number] contact with the patient I spent 40 minutes of Critical Care time with this patient. It involved decision making of high complexity to assess, manipulate, and support vital organ system failure and/or to prevent further life threatening deterioration of the patient's condition. The time involved in the performance of separately reportable procedures was not counted toward critical care time. Patient seen and examined at bedside Labs, radiology, chart personally reviewed. Management was reviewed during multidisciplinary critical care rounds. 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 02/03 patient is was likely toxic/metabolic encephalopathy with severe shock combination of septic and cardiogenic shock 02/04 patient continues to be encephalopathic. 02/05 patient continues to be encephalopathic most likely toxic/metabolic encephalopathy. Pulm: Patient V/Q mismatch is complicated by pneumonia and possible hydrostatic pulmonary edema as patient is a severer systolic congestive heart failure. Cannot do diuresis as patient is in significant septic shock complicated by systolic heart failure. Patient has acceptable oxygenation and ventilation. 02/02 issues acceptable oxygenation and ventilation to continue the low tidal volume strategy cannot diuresis fluid removal significantly. Patient still in septic shock 02/03 patient has acceptable oxygenation and ventilation cannot do diuresis pat ient is on multiple vasopressor therapy this continue to support with full mechanical ventilation. Arterial blood gas were reviewed settings were reviewed peak and plateau pressures were reviewed 02/04 patient has acceptable oxygenation and ventilation the blood gas looks acceptable to continue the low tidal volume strategy Cards: Patient is most likely septic shock complicated by low cardiac output heart failure patient is on triple vasopressor therapy as patient is going on CVVH complicating the picture is atrial fibrillation with rapid ventricular rate not adequately controlled by cardioversion, amiodarone even on digoxin. Doubt that repeat cardioversion will be helpful. To get full echocardiogram to trend troponins. It was an acute coronary event patient will be have poor prognosis patient will not be a cardiac catheterization candidate 02/05 patient has acceptable oxygenation and ventilation to reduce FiO2 as tolerated . Cardiac : 02/02 patient had this persistent MRSA bacteremia patient is in septic shock cannot get into the CT scan or CT chest abdomen and pelvis did a transesophageal echocardiogram which did not show any evidence of endocarditis. Once more stable we will send him for CT abdomen pelvis and CT chest. Most likely source would be pneumonia. 02/03 patient underwent transesophageal echocardiogram has today MRSA bacteremia waiting for cultures today. Patient is in severe shock with triple vasopressor therapy we are going up on the norepinephrine as phenylephrine and vasopressin maxed out 02/04 patient has low EF to start with chronic systolic heart failure and probable that he is in severe septic shock needing 1-2 vasopressor therapy. 02/05 patient still in septic shock with systolic heart failure still on 2 vasopressor therapy. He was on heparin drip but not now . Rate is controlled. FEN-GI: Diet according to nutrition Renal: Labs and output were reviewed patient is on CVVH . ID: To cover with broad-spectrum antibiotics. MRSA bacteremia is not clearing consulted ID gave opinion to start daptomycin. No clear source of infection cannot do a terrell CT scan as patient is very unstable. Heme/Onc: Labs reviewed Endo: Glucose Monitored patient had a strong steroid response carries very poor prognosis. To do steroids for this refractory shock Integ/MSK: Skin Care per routine ICU Nursing Protocol to prevent ulcers. Patient had bilateral leg swelling with foot swelling consulted podiatry gave opinion this is not convincing evidence of infection cannot do imaging as patient is more unstable. Lines: All lines examined without evidence of infection : Dispo: Critically ill . Family was updated CODE: Full Code
[2019-02-05] MEDS: Pantoprazole 40 MG VIAL IVP SCH (08:17)
[2019-02-05] MEDS: Chlorhexidine Rinse 15 ML MOUTHWASH MM SCH ×2 (08:17→19:55)
[2019-02-05] MEDS: Nicotine 21 MG PATCH.TD24 TD SCH (08:18)
[2019-02-05] MEDS: *HR* Amiodarone 200 MG TABLET PO SCH (08:18)
--- NOTE | 2019-02-05 08:58 | Internal Med Progress Note ---
Hospitalist Progress Note - Encounter Date of Encounter: 02/05/19 Time of Encounter: 08:47 - Subjective Interval History: ICU Summary (02/01-02/05) This is an extremely complicated 48-year-old -[place]ian male with multiple medical problems including noncompliance, end-stage renal disease on hemodialysis on Wednesday, atrial fibrillation on , chronic systolic CHF, diabetes mellitus, hypertension, hyperlipidemia, marijuana abuse. Patient was found disheveled, at home, covered in feces, with altered mental status. He was brought to the emergency room where he was noted to be hypotensive, with A. fib with RVR. Electrocardioversion was attempted twice, without success. Patient was subsequently intubated. He had a central line placed in his right groin, as well as an arterial line. He was given aggressive IV fluids per sepsis protocol, then started on vasopressor therapy and admitted to our intensive care unit. Patient remains intubated and sedated. 02/05: Patient is currently ICU day #6 and then later day #6. Patient has remained on pressor support since being in the ICU, presently he is on norepinephrine as well as phenylephrine. His systolic blood pressures have been running in the high 80s. Patient remains on CRRT. Patient has had blood cultures from January 31, February 01, and February 03 BACK MRSA. Patient underwent transesophageal echocardiogram on February 02 which showed no valvular vegetations. EF is markedly reduced, recently reported at 20%. Thus far no obvious source for his bacteremia although he does have chronic wounds on his feet, as well as multiple scabs on his body. An ultrasound of his left arm did not show any fluid collection at this prior hemodialysis shunt site. Chest x-ray showed no obvious pneumonia. He had a CT of his abdomen and pelvis on admission which showed some mild stranding of fat around the pancreas. His lipase was normal. There is some mild adrenal gland thickening of unclear significance. Podiatry did evaluate this patient and did not believe his feet were acutely infected. Patient was seen by infectious disease on February 04, daptomycin was added to his regimen of Zosyn and vancomycin. Future plans for CT chest abdomen and pelvis once his condition stabilizes. Lines: Right Femoral Hemodialysis Catheter (02/01) - plans to hopefully change this to an IJ Line on Tuesday 02/06. This morning patient's condition is essentially unchanged. He is unable to provide any review of systems as he is sedated and ventilated. Present multiple times throughout this admission and at this point he remains a full code. - Exam Vitals: Temp Pulse Resp BP Pulse Ox 97.5 F L 75 28 94/69 98 02/05/19 08:00 02/05/19 08:00 02/05/19 08:00 02/05/19 08:00 02/05/19 08:00 Exam: General: intubated, sedated, appears comfortable HEENT: head normocephalic/atraumatic, pupils equally round and with sluggish reaction to light, sclera anicteric Neck: Supple, no lymphadenopathy Cardio: irreg, nml rate, no murmurs, +S1/S2 Pulm: Coarse breath sounds bilaterally, on mechanical ventilation Abdomen: Soft, distended, ,hypoactive BS Extremities: 2+ pitting edema BLE extending above chilel, no cyanosis, Left Fem TLC clean and dry entrance site Neuro: unable to fully assess neuro status due to intubation and sedation MSK: no joint swelling or joint erythema, AV fistulae of left forearm noted, no thrill Skin: very dry, chronic venous stasis discoloration, intact. Patient has a half-dollar ulcer, scabbed over on plantar aspect of left foot. Both feet are edematous with severe chronic venous stasis changes. Both feet are swollen Multiple scabbed over wounds on body Psych: unable to assess - Summary of Assessment and Plan Summary of Assessment and Plan: Septic shock -Suspect due to MRSA bacteremia -Continue broad-spectrum antibiotics however given potential other sources of infection -Patient is currently day #5 Zosyn, day #5 vancomycin, Day #2 Daptomycin -Norepi, Kee, Vasopressin for hypotension -?component of cardiogenic shock, defer to cardiology if Milrinone would benefit -Thus far no obvious etiology for his MRSA bacteremia although I do favor his a skin source given his multiple wounds -If his condition stabilizes can send him for CT chest abdomen and pelvis looking for occult source of infection MRSA bacteremia/Poss RUL PNA -Multiple potential sources -Patient has an ulcer on the plantar aspect of his left foot, also multiple skin wounds -His AV fistula is nonfunctional and somewhat indurated, this is also a potential source, although US showed no fluid collection -? History of IV drug abuse -? Due to poor dentition - transesophageal echocardiogram neg for vegetation -Bld cx from 01/31 and 02/01, 02/03 are all 2/2 positive MRSA -Infectious disease's input is appreciated, daptomycin added on February 04 Afib w RVR -on amiodarone (now changed to oral) ,failed cardioversion 2 -Cardiology following -was on NOAC at home, anticoag currently held due to bleeding risk, thrombocytopenia Nonishcemic Cardiomyopathy, chronic systolic CHF -EF 20% -cardiology following Altered Mental status -Multifactorial likely due to sepsis,? Cerebral hypoperfusion -CT scan showed no evidence of acute stroke. No obvious seizure activity noted. -NH3 is normal, PCO2 is not significantly elevated -Continue to closely monitor -Consider EEG End-stage renal disease -CRRT continues, I discussed with Dr. Gann today -Avoid nephrotoxins as best able, monitor electrolytes Hyperkalemia, hyperphosphatemia -CRRT should correct Thrombocytopenia -chronic issue for pt, but trending down -may be exac by critical illness, medication -monitor -No acute indication for transfusion, unless procedures Mild rhabdomyolysis -Continue to monitor CK -CK is not markedly elevated on not convinced this is significantly contributing to his current illness however we will monitor levels Polysubstance drug abuse Morbid Obesity Chronic venous stasis DVT prophylaxis -SCD's (heparin stopped due to thrombocytopenia) I saw and discussed the case with Dr Sam today. - Time Spent with Patient Total time spent is greater than 50% in coordination of care (as documented) at patient's floor/unit and/or counseling patient: Internal Medicine: Result - Labs CBC & Chem 7: 02/05/19 03:10 02/05/19 03:10 Labs: Short CBC 02/04/19 02/05/19 Range/Units 20:22 03:10 WBC 11.5 H 13.5 H (4.3-11.1) K/mcL Hgb 14.6 13.8 (12.9-16.9) g/dL Hct 45.5 44.1 (37.5-50.1) % Plt Count 49 L 46 L (140-400) K/mcL Neutrophils # 9.8 H 10.9 H (1.6-8.9) K/mcL BMP 02/04/19 02/05/19 20:22 03:10 Sodium 137 134 L Potassium 4.0 4.2 Chloride 101 105 Carbon Dioxide 21 L 21 L BUN 17 16 Creatinine 1.88 H 1.97 H Glucose 140 H 177 H Calcium 9.4 9.6 - ABG Interpretation ABG results: ABG ABG pH 7.30 pH Units (7.32-7.45) L 02/05/19 05:25 ABG pCO2 46 mmHg (35-45) H 02/05/19 05:25 ABG pO2 92 mmHg (85-104) 02/05/19 05:25 ABG O2 Saturation 96 % (95-98) 02/05/19 05:25 PT/INR, D-dimer PT 14.3 Seconds (9.4-12.1) H 02/04/19 03:10 Consult Discharge Plan - Plan Referrals: NONE,PCP [Primary Care Provider] -
--- NOTE | 2019-02-05 08:58 | Nephrology Progress Note ---
Date of Encounter: 02/05/19 Time of Encounter: 07:30 - Assessment and Plan (1) End stage renal disease on dialysis Status: Chronic Dec'd UF last night and recommend ongoing CRRT for clearance and if tolerated by hemodynamics to ramp back up the UF. Discussed with the ICU team. Continue CVVHDF as tolerated by hemodynamics for clearance. When BPs allow his severe peripheral edema would have indications for resuming fluid removal as able. CVVHDF with 1500/1500, BFR 200, unable to use Citrate d/t Calcium shortage, and thrombocytopenia is prohibitive to a heparin gtt. Replace Phos prn. Any tube feed is acceptable while on CVVHDF. He appears to have a poor prognosis. Right Femoral Temp HD catheter still working. He had +BCx before it's placement. Recommend upgrading to an IJ temporary HD catheter on Wednesday. He remains very complex and has required a very high degree of E/M and MDM. Thank you. (2) Hypophosphatemia Status: Acute (3) Altered mental status Status: Acute Qualifiers: Altered mental status type: unspecified Qualified Code(s): R41.82 - Altered mental status, unspecified (4) Bacteremia Status: Acute (5) Hypotension Status: Acute Qualifiers: Hypotension type: unspecified hypotension type Qualified Code(s): I95.9 - Hypotension, unspecified (6) Rhabdomyolysis Status: Resolved Qualifiers: Rhabdomyolysis type: non-traumatic Qualified Code(s): M62.82 - Rhabdomyolysis (7) Thrombocytopenia Status: Chronic Subjective Principal diagnosis: Septic shock Interval history: The patient remains intubated, and was unable to provide any subjective history. The BREAKER UP MACHINE OPERATOR updated me. The patient has been very hypotensive, and appears to have had stroke findings on CT imaging. Objective - Vital Signs Vital signs: Vital Signs Temp Pulse Resp BP Pulse Ox 02/05/19 08:00 97.5 F L 76 28 94/69 98 02/05/19 07:28 28 83/55 98 02/05/19 07:00 81 28 84/62 97 02/05/19 06:00 83 28 87/60 97 02/05/19 05:27 28 96 02/05/19 05:00 90 28 90/64 96 02/05/19 04:00 98.6 F 91 28 95/71 96 02/05/19 03:48 28 97 02/05/19 03:20 95 02/05/19 03:00 91 28 91/67 98 02/05/19 02:00 97 28 85/61 97 02/05/19 01:00 97 28 82/60 96 02/05/19 00:52 28 96 02/05/19 00:00 99 F 99 28 82/59 96 02/04/19 23:20 95 02/04/19 23:00 95 28 85/57 96 02/04/19 22:58 28 96 02/04/19 22:00 88 28 71/51 98 02/04/19 21:00 93 28 72/50 96 02/04/19 20:06 28 96 02/04/19 20:00 98.4 F 89 28 70/51 91 02/04/19 19:45 92 02/04/19 19:00 88 30 66/58 98 02/04/19 18:00 88 29 70/56 98 02/04/19 17:25 32 69/51 98 02/04/19 17:00 82 34 68/54 97 02/04/19 16:00 97.6 F 87 30 70/54 97 02/04/19 15:12 28 61/47 99 02/04/19 15:00 82 28 65/47 97 02/04/19 14:00 96.8 F L 71 28 100/79 97 02/04/19 13:55 28 77/50 97 02/04/19 13:00 78 28 74/56 97 02/04/19 12:00 96.3 F L 80 28 80/69 97 02/04/19 11:39 28 77/61 97 02/04/19 11:00 76 28 84/66 98 02/04/19 10:00 95.8 F L 70 28 91/73 98 02/04/19 09:45 28 92/74 98 02/04/19 09:00 66 28 102/79 99 Intake and Output 02/04/19 02/05/19 02/05/19 23:59 07:59 15:59 Intake Total 2113.2 / 3954.1 924.2 / 1271.1 346.9 / 1271.1 Output Total 1062 / 4848 47 / 51 4 / 51 Balance 1051.2 / -893.9 877.2 / 1220.1 342.9 / 1220.1 Intake: IV Fluids 1983.2 / 3776.1 786.2 / 1094.1 307.9 / 1094.1 PrismaSATE BGK 4/2.5 5,000 ML @ 0 / 0 0 / 0 0 / 0 1500 mls/hr CRRT [facility] Rx#: [id number] ALBURX 5% 12.5 gm In 250 ml @ 1000 / 1000 60 mls/hr IVC .[id number] [facility] Rx#: [id number] FentaNYL (PF) 1,000 MCG In 0.9 38.9 / 228.7 86.8 / 86.8 % Sodium Chloride 80 ML @ 50 MCG/HR 5 mls/hr IVC [facility] Rx #:[id number] Versed 50 MG In 0.9 % Sodium 15.3 / 165.7 8.9 / 8.9 Chloride 90 ML @ 2 MG/HR 4 mls/ hr IVC [facility] Rx#:[id number] Levophed 8 MG In 0.9 % Sodium 11.0 / 61.4 63.2 / 63.2 Chloride 250 ML @ 0.5 MCG/MIN 0 .968 mls/hr IVC [facility] Rx#: [id number] Phenylephrine 50 MG In 0.9 % 390.4 / 1158.8 482.6 / 482.6 Sodium Chloride 250 ML @ 100 MCG/MIN 30.6 mls/hr IVC [facility] Rx#:[id number] Vasostrict 40 UNIT In Dextrose 17.5 / 42.1 52.7 / 52.7 5% 100 ML @ 0.03 UNIT/MIN 4.59 mls/hr IVC .[id number] [facility] Rx#: [id number] Cubicin 1,000 MG In 0.9 % 100 / 100 Sodium Chloride 100 ML @ 200 mls/hr IVPB Q48H [facility] Rx#: [id number] Zosyn 3.375 GM In 0.9 % Sodium 150.1 / 257.8 92.0 / 149.9 57.9 / 149.9 Chloride (Mini-Bag +) 100 ML @ 25 mls/hr IVPB Q8H [facility] Rx#: [id number] Sodium Phosphate 30 MMOL In 0.9 260 / 260 % Sodium Chloride 250 ML @ 42 mls/hr IVPB ONCE ONE Rx#: [id number] Vancocin 1,250 MG In 0.9 % 250 / 250 Sodium Chloride 250 ML @ 166.67 mls/hr IVPB ONCE ONE Rx#: [id number] Tube Feeding 70 / 88 78 / 87 9 Free Water 30 / 30 Free Water Intake Amount 60 / 90 60 / 60 Output: Rectal Tube 40 / 40 50 / 50 0 / 50 Catheter 0 / 0 0 / 0 0 / 0 Fluid Removed by Prismaflex 1022 / 4408 - Other: Weight 123.75 kg 123.7 kg 123.7 kg Blood Glucose* 114 141 124 Patient Weight 02/05/19 23:59 Weight 123.7 kg - General Appearance Exam: General appearance: Present: severe distress, chronically ill, sedated on ventilator, intubated EENT: Present: ATNC Neck: Present: supple Respiratory: Present: rales, course breath sounds Cardiology: Present: edema, regular rate, regular rhythm, normal S1, normal S2 Dialysis Vascular Access: Arteriovenous Graft (left mid arm without thrill or bruit) Additional Comments: He also has a right femoral temporary HD catheter, with a well adhered Tegaderm and no appearance of erythema Gastrointestinal: Present: normoactive bowel sounds, no guarding, obese, di stended Integumentary: Present: warm and dry Neurologic: Present: obtunded Musculoskeletal: Present: no cyanosis, no clubbing - Lab 02/07/19 03:20 02/07/19 03:20 Most recent lab results 02/04/19 02/05/19 02/05/19 20:22 03:10 05:25 ABG pH 7.30 L ABG pCO2 46 H ABG pO2 92 ABG HCO3 23 ABG O2 Saturation 96 Calcium 9.4 9.6 Phosphorus 3.1 Magnesium 2.3 Consult Discharge Plan - Plan Referrals: NONE,PCP [Primary Care Provider] -
[2019-02-05] MEDS: *HR* Heparin 5,000 UNIT/ML VIAL SQ SCH ×2 (14:48→21:06)
[2019-02-05] MEDS: Hydrocortisone Sodium Succ 100 MG/2 ML VIAL IVP SCH ×2 (14:49→19:56)
[2019-02-05] MEDS ORDERED: *HR* Heparin 5,000 UNIT/ML VIAL ONE (18:08)
[2019-02-06] MEDS: Hydrocortisone Sodium Succ 100 MG/2 ML VIAL IVP SCH ×4 (01:04→19:41)
[2019-02-06] MEDS: PrismaSATE BGK 4/2.5 5,000 ML CRRT SCH ×6 (01:04→20:50)
[2019-02-06] MEDS: Norepinephrine 8 MG in 0.9 % Sodium Chloride 250 ML IVC SCH (02:16)
[2019-02-06] MEDS: Insulin LISPRO 300 UNITS/3 ML VIAL SQ SCH ×6 (03:09→23:17)
[2019-02-06] MEDS: Artificial Tears SOLN 15 ML BOTTLE BOTH EYES SCH ×6 (03:09→23:16)
[2019-02-06] MEDS: Phenylephrine 50 MG in 0.9 % Sodium Chloride 250 ML IVC SCH (03:33)
[2019-02-06] MEDS: Vasopressin 40 UNIT in D5% in Water 100 ML IVC SCH (03:36)
[2019-02-06 03:54] LABS: Basophils % 0.3 %; Eosinophils % 0.1 %; Hematocrit 45.8 % (37.5-50.1); Immature Granulocytes % 6.4 % (0-4); Lymphocytes # 0.7 K/mcL (0.6-4.6); Lymphocytes % 5.2 %; Mean Corpuscular HGB Conc 30.6 g/dL (31.6-35.5); Mean Corpuscular Hemoglobin 27.1 pg (28.0-33.3); Mean Corpuscular Volume 88.6 fL (83.0-100.0); Monocytes # 0.8 K/mcL (0.0-1.3); Neutrophils # 10.6 K/mcL (1.6-8.9); Nucleated Red Blood Cells 0.2 /100 WBC (0); Red Blood Count 5.17 M/mcL (4.19-5.50); Red Cell Distribution Width 20.8 % (11.5-14.5); White Blood Count 12.9 K/mcL (4.3-11.1)
[2019-02-06 03:55] LABS: Platelet Count 60 K/mcL (140-400)
[2019-02-06 04:13] LABS: Alanine Aminotransferase 19 Units/L (7-52); Aspartate Amino Transferase 25 Units/L (13-39); Potassium 4.9 mEq/L (3.5-5.1)
[2019-02-06 04:14] LABS: Calcium 9.8 mg/dL (8.6-10.3)
[2019-02-06] MEDS: Ipratropium/Albuterol Neb 3 ML IH SCH ×4 (04:20→22:07)
[2019-02-06] MEDS: Piperacillin/Tazobactam 3.375 GM in 0.9 % Sodium Chloride Mini Bag 100 ML IVPB SCH ×3 (04:50→20:05)
[2019-02-06] MEDS: *HR* Heparin 5,000 UNIT/ML VIAL SQ SCH ×3 (04:51→22:08)
[2019-02-06 05:26] LABS: ABG Base Excess -8 mEq/L (-2 to 3); ABG HCO3 19 mEq/L (21-27); ABG Oxygen Saturation 95 % (95-98); ABG PCO2 43 mmHg (35-45); ABG PH 7.26 pH Units (7.32-7.45); ABG PO2 87 mmHg (85-104); ABG TCO2 20 mEq/L (20-26); Blood Gas Modality ASSIST CONTROL; Blood Gas PEEP 8 cm H2O; Blood Gas VT 530 cc
[2019-02-06] MEDS: Chlorhexidine Rinse 15 ML MOUTHWASH MM SCH ×2 (07:11→19:40)
[2019-02-06] MEDS: Nicotine 21 MG PATCH.TD24 TD SCH (07:18)
[2019-02-06] MEDS: Pantoprazole 40 MG VIAL IVP SCH (07:18)
[2019-02-06] MEDS: *HR* Amiodarone 200 MG TABLET PO SCH (07:18)
[2019-02-06] MEDS ORDERED: *HR* Heparin 5,000 UNIT/ML VIAL ONE ×2 (07:37→16:22)
--- NOTE | 2019-02-06 07:49 | Pulmonology Progress Note ---
<MartinTono L - Last Filed: 02/06/19 14:52> Date of Encounter: 02/06/19 Time of Encounter: 07:49 Assessment and Plan (1) Septic shock Current Visit: Yes Status: Acute Shock, hemodynamic instability - Cardiogenic vs septic - Afib, no longer in RVR - Hypotension requiring one pressor. Levophed - Three sets of blood cultures growing MRSA - Fourth set drawn this a.m. - Unknown source of infection, possible PNA - Vanc and zosyn day 6 - Daptomycin day 3 - Elevated WBC - Monitoring lactate - ABG pH 7.30 - Continue full vent support - Cardiology consulted - Echo: Severe LV dysfunction. LVEF 20-25% - Nephrology, Continuing CRRT, plan for new temporary dialysis catheter today in IJ via IR - QUIQUE: Valvular vegetation/abcess not present - Random cortisol 40.1 - Infectious disease consult - albumin, 1L 5%, on 02/04 and 02/05. 2 L total - Begin Hydrocortisone 50 q6h - CT head: possible new lacunar infarcts - CT chest: read pending - CT abdomen pelvis: read pending - CT BL feet: read pending - Neurology consulted. Patient remains unresponsive after sedation was removed. Evidence of new stroke on head CT (2) Sepsis due to methicillin resistant Staphylococcus aureus (MRSA) with acute hypercapnic respiratory failure and septic shock Current Visit: Yes Status: Acute As above (3) Bacterial endocarditis Current Visit: Yes Status: Acute Bacterial endocarditis - Three sets of blood cultures MRSA positive - MRSA gene positive - TTE inadequate for endocarditis - QUIQUE: no evidence of bacterial endocarditis - Continuing vanc and zosyn - Began daptomycin on02/04 Qualifiers: Chronicity: acute Qualified Code(s): I33.0 - Acute and subacute infective endocarditis (4) Cellulitis in diabetic foot Current Visit: Yes Status: Acute Foot cellulitis - Suspected BL foot cellulitis - BL LE edema - Ulcer on L foot - Podiatry consulted, diabetic foot unlikely source of bacteremia - Foot CT 02/06 (5) Atrial fibrillation with RVR Current Visit: Yes Status: Chronic Afib with RVR - History of Afib - Refractory to two electric cardioversions in the ED - On eliquis at home - Anticoagulation held - Cardiology consulted - Continuing amio drip - No longer in RVR (6) Diabetes mellitus Current Visit: No Status: Chronic Hx of DM - Accuchecks q4h - High-dose corrective insulin - A1C 12.2% on 12/15/18 Qualifiers: Diabetes mellitus type: type 2 Diabetes mellitus detention insulin use: unspecified detention insulin use status Diabetes mellitus complication status: with kidney complications Diabetes mellitus complication detail: with chronic kidney disease Chronic kidney disease stage: on chronic dialysis Qualified Code(s): E11.22 - Type 2 diabetes mellitus with diabetic chronic kidn ey disease; N18.6 - End stage renal disease; Z99.2 - Dependence on renal dialysis (7) Elevated troponin Current Visit: Yes Status: Acute Elevated troponin - 0.13>>0.12 - Cardiology: Suspected demand ischemia in the setting of sepsis/shock/afib - Echo: severe LV dysfunction (8) Encephalopathy acute Current Visit: No Status: Resolved Acute encephalopathy - Likely secondary to shock and metabolic disturbances - Continue CRRT - Currently sedated on versed - Minimal response to stimuli - Neurology consulted 02/06 (9) End stage renal disease on dialysis Current Visit: Yes Status: Chronic ESRD - Nephrology consulted - CRRT Began on 02/02/19, continuing - Temporary dialysis catheter in R groin via IR, plan to replace on 02/06 with IJ temp catheter via IR - Slowing fluid removal with CRRT anai to hypotension (10) Nonischemic cardiomyopathy Current Visit: Yes Status: Chronic Nonischemic Cardiomyopathy - Cardiology consulted - Monitor I&Os and weight - Echo as above - EF 20% NICMP on previous echo (11) Rhabdomyolysis Current Visit: Yes Status: Resolved Rhabdomyolysis - CK level improving - Baseline CK before beginning daptomycin: 173 Qualifiers: Rhabdomyolysis type: non-traumatic Qualified Code(s): M62.82 - Rhabdomyolysis (12) Tobacco abuse Current Visit: No Status: Chronic Nicotine patch (13) DVT prophylaxis Current Visit: No Status: Acute SCD Sub Q Heparin (14) Thrombocytopenia Current Visit: Yes Status: Acute Thrombocytopenia - Platelet level stable - SCDand Heparin sub Q for DVT prophylaxis Subjective Principal diagnosis: Septic shock Interval history: Patient seen and examined. Afebrile. No overnight events. Patient remains on this pressure support. Patient remains unresponsive to external stimuli. Plan for terrell CT scans morning. Residual tube feeding output from OG-tube. remains anuric. Objective PUL Vital signs: Last Vital Signs Temp 97.1 F L 02/06/19 07:00 Pulse 86 02/06/19 07:00 Resp 28 02/06/19 07:39 BP 103/61 02/06/19 07:00 Pulse Ox 98 02/06/19 07:39 Gen: Vitals noted. Hypotensive on vasopressors. Afib. Intubated and sedated Eyes: BL Scleral icterus, moist conjunctivae. Pupils 4mm, round, equal and mi nimally reactive to light HENT: Atraumatic, normocephalic; oropharynx clear with moist mucous membranes and no mucosal ulcerations Neck: Trachea midline, supple Cardiac: RRR, S1S2, no extra heart sounds Peripheral pulses weak. Pulmonary: Coarse mechanical breath sounds BL, no rales or rhonchi, equal chest expansion Abdomen: soft, full, non-distended, no rigidity. No masses or hepatosplenomegaly Extremities: BL lower extremity edema. Dry scaly skin on feet/ankles. R foot: swollen more than left. No noticeable lesions or ulcers. L foot: 2-3 cm round, scabbed, ulcer on bottom of foot. Skin: Warm and dry. Dry scaly skin on BL LEs Neuro: No gag or corneal reflex. Minimal to no response to external stimuli. Occasional cough Analgesia: fentanyl gtt Sedation: none SBT: none Glycemic control: High-dose corrective insulin Bowel regimen:none Activity: none Fluids: MIVF Electrolytes: replete as necessary Nutrition: Holding tube feeds due to high residuals GI ppx: PPI Lines: ET, OG, winter, R fem CVC and temp dialysis catheter Consults: pulm, cardio, Nephrology, Palliative, Podiatry, Infectious disease, nutrition Code: Full code Dispo: ICU Ventilator Settings Ventilator Settings: Ventilator Settings, Last 8 Hours Ventilator Tidal Volume 550 Setting Ventilator Tidal Volume 530 Setting Ventilator Tidal Volume 530 Setting Ventilator Tidal Volume 530 Setting Ventilator Tidal Volume 530 Setting Ventilator Tidal Volume 530 Setting Ventilator Tidal Volume 530 Setting Ventilator Tidal Volume 530 Setting Ventilator Tidal Volume 530 Setting Ventilator Tidal Volume 530 Setting Ventilator Tidal Volume 530 Setting Ventilator Tidal Volume 530 Setting Ventilator Tidal Volume 530 Setting Ventilator Tidal Volume 530 Setting Ventilator Respiratory Rate 28 Setting Ventilator Respiratory Rate 28 Setting Ventilator Respiratory Rate 28 Setting Ventilator Respiratory Rate 28 Setting Ventilator Respiratory Rate 28 Setting Ventilator Respiratory Rate 28 Setting Ventilator Respiratory Rate 28 Setting Ventilator Respiratory Rate 28 Setting Ventilator Respiratory Rate 28 Setting Ventilator Respiratory Rate 28 Setting Ventilator Respiratory Rate 28 Setting Ventilator Respiratory Rate 28 Setting Ventilator Respiratory Rate 28 Setting Ventilator Respiratory Rate 28 Setting Actual Respiratory Rate 28 Actual Respiratory Rate 28 Actual Respiratory Rate 28 Actual Respiratory Rate 28 Actual Respiratory Rate 28 Actual Respiratory Rate 28 Actual Respiratory Rate 29 Actual Respiratory Rate 28 Actual Respiratory Rate 29 Actual Respiratory Rate 29 Actual Respiratory Rate 30 Actual Respiratory Rate 30 Actual Respiratory Rate 28 Positive End Expiratory 8 Pressure Positive End Expiratory 8 Pressure Positive End Expiratory 8 Pressure Positive End Expiratory 8 Pressure Positive End Expiratory 8 Pressure Positive End Expiratory 8 Pressure Positive End Expiratory 8 Pressure Positive End Expiratory 8 Pressure Positive End Expiratory 8 Pressure Positive End Expiratory 8 Pressure Positive End Expiratory 8 Pressure Positive End Expiratory 8 Pressure Positive End Expiratory 8 Pressure Positive End Expiratory 8 Pressure Peak Inspiratory Airway 26 Pressure Peak Inspiratory Airway 30 Pressure Peak Inspiratory Airway 29 Pressure Peak Inspiratory Airway 30 Pressure Peak Inspiratory Airway 30 Pressure Peak Inspiratory Airway 31 Pressure Peak Inspiratory Airway 32 Pressure Peak Inspiratory Airway 36 Pressure Peak Inspiratory Airway 32 Pressure Peak Inspiratory Airway 33 Pressure Peak Inspiratory Airway 33 Pressure Peak Inspiratory Airway 31 Pressure Peak Inspiratory Airway 30 Pressure Results - Laboratory Findings CBC and BMP: 02/06/19 03:40 02/06/19 03:40 ABG ABG pH 7.26 pH Units (7.32-7.45) L 02/06/19 05:22 ABG pCO2 43 mmHg (35-45) 02/06/19 05:22 ABG pO2 87 mmHg (85-104) 02/06/19 05:22 ABG O2 Saturation 95 % (95-98) 02/06/19 05:22 PT/INR, D-dimer PT 14.3 Seconds (9.4-12.1) H 02/04/19 03:10 Abnormal lab findings: Abnormal lab results WBC 12.9 K/mcL (4.3-11.1) H 02/06/19 03:40 RBC 5.57 M/mcL (4.19-5.50) H 02/02/19 03:15 MCH 27.1 pg (28.0-33.3) L 02/06/19 03:40 MCHC 30.6 g/dL (31.6-35.5) L 02/06/19 03:40 RDW 20.8 % (11.5-14.5) H 02/06/19 03:40 Plt Count 60 K/mcL (140-400) L 02/06/19 03:40 Immature Gran % 6.4 % (0-4) H 02/06/19 03:40 Neutrophils # 10.6 K/mcL (1.6-8.9) H 02/06/19 03:40 Lymphocytes # 0.5 K/mcL (0.6-4.6) L 02/02/19 03:15 Monocytes # 1.4 K/mcL (0.0-1.3) H 02/04/19 03:10 Nucleated RBCs/100 WBC 0.2 /100 WBC (0) H 02/06/19 03:40 Platelet Estimate Decreased (Normal) L 02/03/19 04:15 Immature Plt Fraction 19.4 % (1.1-6.1) H 02/05/19 03:10 Polychromasia 1+ (Not Present) A 02/03/19 04:15 PT 14.3 Seconds (9.4-12.1) H 02/04/19 03:10 APTT 46.1 Seconds (26.0-36.0) H 02/01/19 05:06 Heparin Anti-Xa, Unfract 0.29 IU/mL (0.30-0.70) L 02/03/19 11:00 ABG pH 7.26 pH Units (7.32-7.45) L 02/06/19 05:22 ABG pCO2 46 mmHg (35-45) H 02/05/19 05:25 ABG pO2 78 mmHg (85-104) L 02/04/19 20:44 ABG HCO3 19 mEq/L (21-27) L 02/06/19 05:22 ABG Total CO2 27 mEq/L (20-26) H 02/01/19 04:58 ABG O2 Saturation 94 % (95-98) L 02/02/19 11:16 ABG Base Excess -8 mEq/L (-2 to 3) L 02/06/19 05:22 VBG pCO2 32 mmHg (41-51) L 02/01/19 17:38 VBG pO2 209 mmHg (25-50) H 02/01/19 17:38 VBG HCO3 19 mEq/L (21-27) L 02/01/19 17:38 VBG Hematocrit 57.0 % (37.5-50.1) H 02/01/19 17:38 VBG Lactic Acid 3.7 mmol/L (0.5-2.2) H 02/01/19 17:38 Venous Sodium 134 mEq/L (135-145) L 02/01/19 17:38 Sodium 134 mEq/L (136-145) L 02/05/19 03:10 Potassium 5.2 mEq/L (3.5-5.1) H 02/01/19 02:25 Chloride 94 mEq/L (98-107) L 02/01/19 02:25 Carbon Dioxide 18 mEq/L (23-29) L 02/06/19 03:40 BUN 32 mg/dL (6-20) H 02/03/19 04:00 Creatinine 1.77 mg/dL (0.70-1.30) H 02/06/19 03:40 Est GFR ( Amer) 50 (> 60) L 02/06/19 03:40 Est GFR (Non-Af Amer) 41 (> 60) L 02/06/19 03:40 Glucose 191 mg/dL (70-105) H 02/06/19 03:40 Whole Bld Glucose 141 mg/dl (65-95) H 02/01/19 17:38 POC Glucose 137 mg/dL (70-99) H 02/05/19 23:05 Calculated Osmolality 303 (280-300) H 02/01/19 02:25 Calcium 10.4 mg/dL (8.6-10.3) H 01/31/19 19:23 Venous Ioniz Calcium 0.86 mmol/L (1.15-1.35) L 02/02/19 05:46 Phosphorus 2.4 mg/dL (2.7-4.5) L 02/04/19 03:10 Total Bilirubin 4.3 mg/dL (0.3-1.0) H 02/03/19 04:00 Direct Bilirubin 0.5 mg/dL (0.0-0.2) H 01/31/19 19:23 Alkaline Phosphatase 158 Units/L (34-104) H 02/03/19 04:00 Creatine Kinase 283 Units/L (30-223) H 02/04/19 03:10 Troponin I 0.12 ng/mL (< 0.04) H* 02/01/19 02:25 Serum Total Protein 5.9 g/dL (6.4-8.9) L 02/03/19 04:00 Albumin 2.9 g/dL (3.5-5.7) L 02/03/19 04:00 Albumin/Globulin Ratio 1.0 (1.1-2.2) L 02/03/19 04:00 Lipase 4 Units/L (11-82) L 02/01/19 02:25 Vancomycin Trough 15 mcg/mL (5-10) H 02/06/19 04:58 Hep Bs Antibody < 3.10 mIU/mL (10.00-) L 02/01/19 13:25 Staph aureus (PCR) DETECTED (Not Detect) A 02/03/19 08:37 mecA-Methicil Res Gene DETECTED (Not Detect) A 02/03/19 08:37 - Microbiology Findings Microbiology Findings: Microbiology, Last 48 Hours 02/06/19 04:04 Blood Culture - Preliminary Peripheral Venipuncture Culture is incubating and being continuously monitored for growth. Final report to follow. 02/06/19 03:57 Blood Culture - Preliminary Peripheral Venipuncture Culture is incubating and being continuously monitored for growth. Final report to follow. 02/03/19 07:41 Blood Culture - Preliminary Central Venous Catheter Staphylococcus aureus 02/03/19 08:37 Blood Culture - Preliminary Peripheral Venipuncture Staphylococcus aureus - Clinical Findings Intake & Output: Intake & Output 02/05/19 02/05/19 02/06/19 15:59 23:59 07:59 Intake Total 718.2 / 3524.2 1881.8 / 3524.2 533.5 / 533.5 Output Total 614 / 935 275 / 935 1 / 1 Balance 104.2 / 2589.2 1606.8 / 2589.2 532.5 / 532.5 Weight 123.7 kg 123.7 kg 125.5 kg Consult Discharge Plan - Plan Referrals: NONE,PCP [Primary Care Provider] - <Dariel Greenfield - Last Filed: 02/06/19 20:19> Date of Encounter: 02/06/19 Objective PUL Vital signs: Last Vital Signs Temp 98.7 F 02/06/19 15:00 Pulse 109 02/06/19 16:00 Resp 26 02/06/19 16:00 BP 109/49 02/06/19 16:00 Pulse Ox 95 02/06/19 16:00 Ventilator Settings Ventilator Settings: Ventilator Settings, Last 8 Hours Ventilator Tidal Volume 550 Setting Ventilator Tidal Volume 550 Setting Ventilator Tidal Volume 550 Setting Ventilator Tidal Volume 550 Setting Ventilator Tidal Volume 550 Setting Ventilator Tidal Volume 550 Setting Ventilator Tidal Volume 550 Setting Ventilator Tidal Volume 550 Setting Ventilator Tidal Volume 550 Setting Ventilator Tidal Volume 550 Setting Ventilator Respiratory Rate 26 Setting Ventilator Respiratory Rate 26 Setting Ventilator Respiratory Rate 26 Setting Ventilator Respiratory Rate 26 Setting Ventilator Respiratory Rate 26 Setting Ventilator Respiratory Rate 26 Setting Ventilator Respiratory Rate 26 Setting Ventilator Respiratory Rate 26 Setting Ventilator Respiratory Rate 26 Setting Ventilator Respiratory Rate 26 Setting Actual Respiratory Rate 26 Actual Respiratory Rate 26 Actual Respiratory Rate 26 Actual Respiratory Rate 28 Actual Respiratory Rate 26 Actual Respiratory Rate 31 Actual Respiratory Rate 31 Actual Respiratory Rate 33 Actual Respiratory Rate 28 Actual Respiratory Rate 27 Positive End Expiratory 8 Pressure Positive End Expiratory 8 Pressure Positive End Expiratory 8 Pressure Positive End Expiratory 8 Pressure Positive End Expiratory 5 Pressure Positive End Expiratory 8 Pressure Positive End Expiratory 8 Pressure Positive End Expiratory 8 Pressure Positive End Expiratory 8 Pressure Positive End Expiratory 8 Pressure Peak Inspiratory Airway 29 Pressure Peak Inspiratory Airway 29 Pressure Peak Inspiratory Airway 29 Pressure Peak Inspiratory Airway 32 Pressure Peak Inspiratory Airway 28 Pressure Peak Inspiratory Airway 31 Pressure Peak Inspiratory Airway 34 Pressure Peak Inspiratory Airway 31 Pressure Peak Inspiratory Airway 25 Pressure Peak Inspiratory Airway 25 Pressure Results - Laboratory Findings CBC and BMP: 02/06/19 03:40 02/06/19 03:40 ABG ABG pH 7.26 pH Units (7.32-7.45) L 02/06/19 05:22 ABG pCO2 43 mmHg (35-45) 02/06/19 05:22 ABG pO2 87 mmHg (85-104) 02/06/19 05:22 ABG O2 Saturation 95 % (95-98) 02/06/19 05:22 PT/INR, D-dimer PT 14.3 Seconds (9.4-12.1) H 02/04/19 03:10 Abnormal lab findings: Abnormal lab results WBC 12.9 K/mcL (4.3-11.1) H 02/06/19 03:40 RBC 5.57 M/mcL (4.19-5.50) H 02/02/19 03:15 MCH 27.1 pg (28.0-33.3) L 02/06/19 03:40 MCHC 30.6 g/dL (31.6-35.5) L 02/06/19 03:40 RDW 20.8 % (11.5-14.5) H 02/06/19 03:40 Plt Count 60 K/mcL (140-400) L 02/06/19 03:40 Immature Gran % 6.4 % (0-4) H 02/06/19 03:40 Neutrophils # 10.6 K/mcL (1.6-8.9) H 02/06/19 03:40 Lymphocytes # 0.5 K/mcL (0.6-4.6) L 02/02/19 03:15 Monocytes # 1.4 K/mcL (0.0-1.3) H 02/04/19 03:10 Nucleated RBCs/100 WBC 0.2 /100 WBC (0) H 02/06/19 03:40 Platelet Estimate Decreased (Normal) L 02/03/19 04:15 Immature Plt Fraction 19.4 % (1.1-6.1) H 02/05/19 03:10 Polychromasia 1+ (Not Present) A 02/03/19 04:15 PT 14.3 Seconds (9.4-12.1) H 02/04/19 03:10 APTT 46.1 Seconds (26.0-36.0) H 02/01/19 05:06 Heparin Anti-Xa, Unfract 0.29 IU/mL (0.30-0.70) L 02/03/19 11:00 ABG pH 7.26 pH Units (7.32-7.45) L 02/06/19 05:22 ABG pCO2 46 mmHg (35-45) H 02/05/19 05:25 ABG pO2 78 mmHg (85-104) L 02/04/19 20:44 ABG HCO3 19 mEq/L (21-27) L 02/06/19 05:22 ABG Total CO2 27 mEq/L (20-26) H 02/01/19 04:58 ABG O2 Saturation 94 % (95-98) L 02/02/19 11:16 ABG Base Excess -8 mEq/L (-2 to 3) L 02/06/19 05:22 VBG pCO2 32 mmHg (41-51) L 02/01/19 17:38 VBG pO2 209 mmHg (25-50) H 02/01/19 17:38 VBG HCO3 19 mEq/L (21-27) L 02/01/19 17:38 VBG Hematocrit 57.0 % (37.5-50.1) H 02/01/19 17:38 VBG Lactic Acid 3.7 mmol/L (0.5-2.2) H 02/01/19 17:38 Venous Sodium 134 mEq/L (135-145) L 02/01/19 17:38 Sodium 134 mEq/L (136-145) L 02/05/19 03:10 Potassium 5.2 mEq/L (3.5-5.1) H 02/01/19 02:25 Chloride 94 mEq/L (98-107) L 02/01/19 02:25 Carbon Dioxide 18 mEq/L (23-29) L 02/06/19 03:40 BUN 32 mg/dL (6-20) H 02/03/19 04:00 Creatinine 1.77 mg/dL (0.70-1.30) H 02/06/19 03:40 Est GFR ( Amer) 50 (> 60) L 02/06/19 03:40 Est GFR (Non-Af Amer) 41 (> 60) L 02/06/19 03:40 Glucose 191 mg/dL (70-105) H 02/06/19 03:40 Whole Bld Glucose 141 mg/dl (65-95) H 02/01/19 17:38 POC Glucose 137 mg/dL (70-99) H 02/05/19 23:05 Calculated Osmolality 303 (280-300) H 02/01/19 02:25 Calcium 10.4 mg/dL (8.6-10.3) H 01/31/19 19:23 Venous Ioniz Calcium 0.86 mmol/L (1.15-1.35) L 02/02/19 05:46 Phosphorus 2.4 mg/dL (2.7-4.5) L 02/04/19 03:10 Total Bilirubin 4.3 mg/dL (0.3-1.0) H 02/03/19 04:00 Direct Bilirubin 0.5 mg/dL (0.0-0.2) H 01/31/19 19:23 Alkaline Phosphatase 158 Units/L (34-104) H 02/03/19 04:00 Creatine Kinase 283 Units/L (30-223) H 02/04/19 03:10 Troponin I 0.12 ng/mL (< 0.04) H* 02/01/19 02:25 Serum Total Protein 5.9 g/dL (6.4-8.9) L 02/03/19 04:00 Albumin 2.9 g/dL (3.5-5.7) L 02/03/19 04:00 Albumin/Globulin Ratio 1.0 (1.1-2.2) L 02/03/19 04:00 Lipase 4 Units/L (11-82) L 02/01/19 02:25 Vancomycin Trough 15 mcg/mL (5-10) H 02/06/19 04:58 Hep Bs Antibody < 3.10 mIU/mL (10.00-) L 02/01/19 13:25 Staph aureus (PCR) DETECTED (Not Detect) A 02/03/19 08:37 mecA-Methicil Res Gene DETECTED (Not Detect) A 02/03/19 08:37 - Microbiology Findings Microbiology Findings: Microbiology, Last 48 Hours 02/03/19 07:41 Blood Culture - Final Central Venous Catheter Methicillin Resistant S.aureus 02/03/19 08:37 Blood Culture - Final Peripheral Venipuncture Methicillin Resistant S.aureus 02/06/19 04:04 Blood Culture - Preliminary Peripheral Venipuncture Culture is incubating and being continuously monitored for growth. Final report to follow. 02/06/19 03:57 Blood Culture - Preliminary Peripheral Venipuncture Culture is incubating and being continuously monitored for growth. Final report to follow. - Clinical Findings Intake & Output: Intake & Output 02/06/19 02/06/19 02/06/19 07:59 15:59 23:59 Intake Total 533.5 / 1193.5 620 / 1193.5 40 / 1193.5 Output Total 50 487 / 507 Balance 532.5 / 686.5 133 / 686.5 21 / 686.5 Weight 125.5 kg 125.5 kg 125.5 kg - Attending Attestation I examined this patient and my medical decision-making was reviewed with the Resident Physician. I agree with the documented findings, disposition and treatment plan as described except to the extent set forth below. Patient seen and examined. Labs, radiology, chart personally reviewed. 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 This findings will be very important for the overall care and family is aware. Septic emboli is possibility as well. Will try to keep his sedation as low as possible. Pulmonary: Acceptable oxygenation and ventilation and reviewed his ABG and then changed his vent setting with lowering his PEEP and adjusting his minute ventilation. Patient is not ready for SBT and it doesn't look that he will be liberated from the clinic anytime soon. Cardiovascular: Unstable and transition his pressors to Levophed only if possible. Discussed with Dr. Orourke regarding his access that could be potential source of his septic shock. QUIQUE may need to be repeated. GI: Nutrition per dietary and GI prophylaxis per routine and nutrition is concerning, may start trickle feed tomorrow. Heme: DVT prophylaxis per routine ID: Continue antibiotics and plan to de-escalation. Discussed with Dr. Clayton and appreciate his help. Renal; Nephrology is following and appreciate input. Endorcine: blood glucose is monitored Lines: all lines checked and no evidence of infections Skin: skin care to prevent pressure ulcers per nursing routine care Dispo: ICU Code: Full. Prognosis. Very poor and family is aware. I spent 45 min of Critical Care time with this patient. It involved decision making of high complexity to assess, manipulate, and support vital organ system failure and/or to prevent further life threatening deterioration of the patient's condition. The time involved in the performance of separately re portable procedures was not counted toward critical care time.
--- NOTE | 2019-02-06 09:23 | Infectious Disease Progress No ---
ID Progress Note Date of Encounter: 02/06/19 Time of Encounter: : - Subjective Subjective: Patient seen and examined. No acute events noted overnight. Patient remains intubated on the ventilator. Not currently on any sedation and is unresponsive. Per nursing, just returned from CT scan. Not currently on tube feeds due to absent bowel sounds. Remains on CRRT. Recently switched from 2 vasopressors over to Levophed. - Objective CBC & Chem 7: 02/07/19 03:20 02/07/19 03:20 - Line Documentation Line Documentation: Dialysis Catheter (Right femoral), Green Catheter (No urine output), Triple Lumen Central Line (Right femoral) - Exam Vitals: Temp Pulse Resp BP Pulse Ox 97.1 F L 86 28 103/61 98 02/06/19 07:00 02/06/19 07:00 02/06/19 07:39 02/06/19 07:00 02/06/19 07:39 Exam: Head: Atraumatic, normal inspection, normocephalic. Eye: PERRLA, pupils are sluggish bilaterally, no scleral icterus noted. Conjunctival injection noted bilaterally. No subconjunctival hemorrhage noted. ENT: Mucous membranes dry. No odontogenic infection noted. Neck: Normal inspection, no meningismus. Respiratory: Clear to auscultation. No rales, respiratory distress, rhonchi, or wheezes noted. Cardiovascular: Irregular rhythm, tachycardic, S1 and S2 audible. No murmurs, rubs, or gallops. GI: Soft, obese, bowel sounds absent. No OG-tube to low intermittent wall suction. Extremities: 2+ edema noted to all extremities. AV graft noted to the left forearm without erythema, warmth, or drainage. 2 scabbed regions noted. Neurological: Unresponsive, no sedation. Does not withdraw from pain. GCS 3. Skin: Dry, intact, warm. Normal color. No rashes. No endocarditis stigmata noted. - Assessment and Plan (1) Septic shock Status: Acute The patient had four SIRS criteria plus acute metabolic encephalopathy, acute respiratory failure, and hypotension requiring vasopressors. Likely secondary to MRSA bacteremia. WBC improved. Continues to have intermittent tachycardia. Still requiring vasopressors. Blood cultures drawn 01/31/19 are positive 2/2 for MRSA. Repeat blood cultures drawn 02/01/19 are positive 2/2. Repeat blood cultures drawn 02/03/19 (1 central and 1 peripheral) are positive 2/2. Repeat blood cultures drawn 02/06/19 are pending x 2 sets. SNOMED Code(s): 74797365 (2) MRSA bacteremia Status: Acute Causative organism: MRSA. Source: Unclear. AV graft vs. other. Blood cultures drawn 01/31/19 are positive 2/2 for MRSA. Repeat blood cultures drawn 02/01/19 are positive 2/2. Repeat blood cultures drawn 02/03/19 (1 central and 1 peripheral) are positive 2/2. Repeat blood cultures drawn 02/06/19 are pending x 2 sets. Left FA graft UTS showed evidence for clot in the fistula in the medial aspect of the arm with some surrounding fluid. Repeat CT head shows new acute lacunar infarcts --> ? septic emboli TTE and QUIQUE negative for vegetations. Repeat CT chest, abdomen and pelvis non-revealing for obvious source of persistent bacteremia. CT bilateral feet non-revealing for source of persistent bacteremia. The patient does not have any hardware, but does have a graft in the left forearm. Currently on Vanc and Daptomycin. SNOMED Code(s): 14533797102477145 (3) Diabetic foot ulcer Status: Acute CT of the bilateral feet negative for acute infectious abnormality. Podiatry consulted and following. Qualifiers: Diabetic foot ulcer location: heel Diabetes mellitus type: type 2 Laterality: right Non-pressure ulcer stage: unspecified non-pressure ulcer stage Qualified Code(s): E11.621 - Type 2 diabetes mellitus with foot ulcer; L97.419 - Non-pressure chronic ulcer of right heel and midfoot with unspecified severity SNOMED Code(s): 570882397 (4) Lacunar infarct, acute Status: Acute Noted on CT head 02/06/19 . New from recent imaging. ?septic emboli Sedation turned off this morning, but patient unresponsive at this point. SNOMED Code(s): 657709658 (5) Acute and chronic respiratory failure Status: Acute Remains on the ventilator. Management per the primary and pulmonary teams. Qualifiers: SNOMED Code(s): 99537356 (6) Acute metabolic encephalopathy Status: Acute SNOMED Code(s): 92464629, 211361926 (7) Rhabdomyolysis Status: Resolved Qualifiers: Rhabdomyolysis type: non-traumatic Qualified Code(s): M62.82 - Rhabdo myolysis SNOMED Code(s): 039149400 (8) Thrombocytopenia Status: Acute Likely secondary to septic shock. Improved. SNOMED Code(s): 729896124 (9) Atrial fibrillation Status: Chronic Qualifiers: Atrial fibrillation type: chronic SNOMED Code(s): 17152542 (10) CHF (congestive heart failure) Status: Chronic No AICD. TTE showed EF 20-25%. Qualifiers: SNOMED Code(s): 91466747 (11) COPD (chronic obstructive pulmonary disease) Status: Chronic Qualifiers: COPD type: unspecified COPD Qualified Code(s): J44.9 - Chronic obstructive pulmonary disease, unspecified SNOMED Code(s): 26833266 (12) Diabetes mellitus Status: Chronic Qualifiers: Diabetes mellitus type: type 2 Diabetes mellitus detention insulin use: unspecified ocean transportation intermediary insulin use status Diabetes mellitus complication sta tus: with kidney complications Diabetes mellitus complication detail: with chronic kidney disease Chronic kidney disease stage: on chronic dialysis Qualified Code(s): E11.22 - Type 2 diabetes mellitus with diabetic chronic kidney disease; N18.6 - End stage renal disease; Z99.2 - Dependence on renal dialysis SNOMED Code(s): 73243607 (13) End stage renal disease on dialysis Status: Chronic Due to long standing DM 2. Has graft L forearm that is not functional. U/S LT ext: Evidence for clot in the fistula in the medial aspect of the arm with some surrounding fluid. No color flow seen within the fistula. Per family, he was having dialysis via fistula until admission. Currently on CRRT. Nephrology consulted and following. SNOMED Code(s): 270520776 (14) Hyperlipidemia Status: Chronic Qualifiers: Hyperlipidemia type: unspecified Qualified Code(s): E78.5 - Hyperlipidemia, unspecified SNOMED Code(s): 00786294 (15) Obesity (BMI 30-39.9) Status: Chronic SNOMED Code(s): 405397492, 079289649 (16) Tobacco abuse Status: Chronic SNOMED Code(s): 089794205 - Recommendations Recommendations: Await repeat blood cultures. Agree with moving the patient's central line and TDC from the femoral area if possible. Consider vascular to evaluate left AV graft. Highly suspicious that this is the source of infection. Continue Vancomycin IV. Pharmacy to dose. Goal trough ~15. Continue Daptomycin. Pharmacy to dose for CRRT. Duration of treatment depends on the clinical picture. Monitor labs and for drug toxicity and dose-adjust antibiotics. Contact precautions per hospital policy. Consult Discharge Plan - Plan Referrals: NONE,PCP [Primary Care Provider] - - Attending Attestation I have personally performed a face to face evaluation on this patient. I have reviewed and agree with the care plan. History and Exam by me shows: Assessment and plan: Septic shock MRSA bacteremia source not clear concern for infected dialysis graft left forearm Metabolic encephalopathy Multiple acute lacunar infarcts Acute on chronic respiratory failure Rhabdomyolysis Diabetes mellitus poorly controlled CHF ejection fraction around 20 COPD Recommendations: Await repeat blood cultures. Agree with moving the patient's central line and TDC from the femoral area if possible. Consider vascular to evaluate left AV graft. Highly suspicious that this is the source of infection. Continue Vancomycin IV. Pharmacy to dose. Goal trough ~15. Continue Daptomycin. Pharmacy to dose for CRRT. Duration of treatment depends on the clinical picture. Monitor labs and for drug toxicity and dose-adjust antibiotics. Contact precautions per hospital policy.
--- NOTE | 2019-02-06 09:28 | Internal Med Progress Note ---
Hospitalist Progress Note - Encounter Date of Encounter: 02/06/19 Time of Encounter: 07:50 - Subjective Interval History: Patient case discussed and seen in collaboration with Dr. Greenfield. I also saw and examined patient independently as well. I discussed the patient with his primary nurse and MDR team. Patient continues to have positive, serial blood cultures for MRSA. We decided to pursue terrell scanning with CT of his head, chest, abdomen, and pelvis. He remains on antibiotics. If he continues to have positive blood cultures, he will likely need repeat QUIQUE. On my exam, he does not exhibit any purposeful neurologic activity. However, he still under some light sedation. We are trying to titrate and change pressure support to Levophed given his sepsis and need for hemodynamic support. - Exam Vitals: Temp Pulse Resp BP Pulse Ox 97.1 F L 86 28 103/61 98 02/06/19 07:00 02/06/19 07:00 02/06/19 07:39 02/06/19 07:00 02/06/19 07:39 Exam: General: intubated, unresponsive HEENT: ETT; OG in place; absent corneal reflex, pupillary reflex not apprec iated Chest: Coarse breath sounds; diminished breath sounds in bases; IRR/IRR; HR 90- 100's Abdomen: mildly distended; few, scattered/rare high pitched BS. Ext: Both feet edematous, mildly red with some dry skin/skin breakdown Neuro: no gag reflex, no corneal reflex, does not withdraw to pain or loud verbal stimuli Skin: warm and dry; mild skin breakdown/dry in feet - Assessment and Plan (1) Septic shock Current Visit: Yes Status: Acute Assessment and Plan: 1. Discussed with Dr. Greenfield and MDR team -- transition to Levophed for pressor support. 2. Stress dose steroids. 3. Fluid balance per nephrology. 4. Daily blood cultures. 5. Continue antibiotics to cover MRSA. 6. Daily blood cultures. 7. Terrell-scan as above. 8. ID following. (2) Atrial fibrillation with RVR Current Visit: Yes Status: Chronic Assessment and Plan: 1. Currently rate-controlled. 2. Continue Amiodarone. 3. No anticoagulation for now due to risk of bleeding and thrombocytopenia. (3) MRSA bacteremia Current Visit: Yes Status: Acute Assessment and Plan: 1. Terrell-scan as above. 2. Daily blood cultures. 3. Vancomycin and Daptomycin. (4) Thrombocytopenia Current Visit: Yes Status: Chronic Assessment and Plan: 1. Likely exacerbated due to acute illness/sepsis. 2. No sign of active bleed. 3. Transfuse platelets for procedures and PRN bleeding. (5) End stage renal disease on dialysis Current Visit: Yes Status: Chronic Assessment and Plan: 1. Nephrology following. 2. CRRT per nephrology. 3. Likely needs HD catheter change soon. (6) Nonischemic cardiomyopathy Current Visit: Yes Status: Chronic Assessment and Plan: 1. EF 20%. 2. Supportive measures as above. 3. Cardiology following. (7) DVT prophylaxis Current Visit: Yes Status: Acute Assessment and Plan: 1. EPCD's. - Time Spent with Patient Total time spent is greater than 50% in coordination of care (as documented) at patient's floor/unit and/or counseling patient: 25 - 35 minutes Plan of Care Discussed with: other (PADMINI barney, primary RN, Dr. Greenfield) Internal Medicine: Result - Labs CBC & Chem 7: 02/06/19 03:40 02/06/19 03:40 Labs: Short CBC 02/06/19 Range/Units 03:40 WBC 12.9 H (4.3-11.1) K/mcL Hgb 14.0 (12.9-16.9) g/dL Hct 45.8 (37.5-50.1) % Plt Count 60 L (140-400) K/mcL Neutrophils # 10.6 H (1.6-8.9) K/mcL BMP 02/06/19 03:40 Sodium 136 Potassium 4.9 Chloride 102 Carbon Dioxide 18 L BUN 17 Creatinine 1.77 H Glucose 191 H Calcium 9.8 Liver Function 02/06/19 Range/Units 03:40 AST 25 (13-39) Units/L ALT 19 (7-52) Units/L - ABG Interpretation ABG results: ABG ABG pH 7.26 pH Units (7.32-7.45) L 02/06/19 05:22 ABG pCO2 43 mmHg (35-45) 02/06/19 05:22 ABG pO2 87 mmHg (85-104) 02/06/19 05:22 ABG O2 Saturation 95 % (95-98) 02/06/19 05:22 PT/INR, D-dimer PT 14.3 Seconds (9.4-12.1) H 02/04/19 03:10 - Impressions Impressions KUB X-Ray 02/05/19 13:36 IMPRESSION: 1. Unremarkable abdominal radiograph. No finding to account for patient's abdominal distention and pain. D/ / Marcello Ibrahim MD / Marcello Ibrahim MD Interpreting Provider: Marcello Ibrahim MD Head CT 02/06/19 08:32 IMPRESSION: 1. A few small foci of decreased attenuation within the bilateral frontal and left parietal lobes, which are not appreciated on the prior exam. These may represent involving acute lacunar infarcts. 2. No mass effect or midline shift. 3. Scattered mucosal thickening of the paranasal sinuses with bilateral mastoid effusions. D/ / Boni Bahena MD / Boni Bahena MD Interpreting Provider: Boni Bahena MD Abdomen/Pelvis CT 02/06/19 08:33 IMPRESSION: Study limited by motion and lack of IV contrast ETT tube and NG tube in place and appear to be in expected position. Small amount of air within the right anterior chest likely from attempted placement of vascular catheter. Interval placement of right dialysis catheter which appears to be in expected position from right femoral approach. Right-sided femoral line appear stable. Dependent consolidation of the lung bases most compatible with atelectasis. Superimposed pneumonia cannot be excluded by felt less likely. Mild degree of ascites slightly increased from the comparison Mild stranding along the colon is felt to be related to underlying increase in abdominal fluid. Underlying mild infection, colitis cannot be excluded. Green catheter is in place Faint increased density in the left renal collecting system which may represent small stones, debris or possible hemorrhage. Please correlate with patient's urinalysis. D/ / Dar Love MD / Dar Love MD Interpreting Provider: Dar Love MD Chest CT 02/06/19 08:33 IMPRESSION: Study limited by motion and lack of IV contrast ETT tube and NG tube in place and appear to be in expected position. Small amount of air within the right anterior chest likely from attempted placement of vascular catheter. Interval placement of right dialysis catheter which appears to be in expected position from right femoral approach. Right-sided femoral line appear stable. Dependent consolidation of the lung bases most compatible with atelectasis. Superimposed pneumonia cannot be excluded by felt less likely. Mild degree of ascites slightly increased from the comparison Mild stranding along the colon is felt to be related to underlying increase in abdominal fluid. Underlying mild infection, colitis cannot be excluded. Green catheter is in place Faint increased density in the left renal collecting system which may represent small stones, debris or possible hemorrhage. Please correlate with patient's urinalysis. D/ / Dar Love MD / Dar Love MD Interpreting Provider: Dar Love MD Foot CT 02/06/19 08:35 IMPRESSION: 1. Erosive changes/irregularity as detailed above with a midfoot predominance. Differential considerations include Charcot/neuropathic changes, gout, or inflammatory arthropathy. 2. Moderate to severe cellulitis of the left ankle and left foot. No discrete organized fluid collection evident. Suspected mild myositis of the intertarsal musculature with mild to moderate fatty degeneration. 3. No acute fracture identified. No aggressive osseous destruction. 4. Moderate plantar calcaneal spur. D/ / Chaim Dumont MD / Chaim Dumont MD Interpreting Provider: Chaim Dumont MD Foot CT 02/06/19 08:35 IMPRESSION: 1. Abnormal morphology of the midfoot with areas of bony destruction, Rocephin change, and large tibiotalar and midfoot joint effusion. 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 Infection is considered less likely unless there is an open wound or ulcer. 2. Extensive soft tissue edema. Peroneal and posterior tibialis tenosynovitis. No discrete fluid collection on the noncontrast CT. No wound or ulcer. 3. Remote fracture of the proximal phalanx 1st digit without bony union. D/ / Cisco Aponte MD / Cisco Aponte MD Interpreting Provider: Cisco Aponte MD Consult Discharge Plan - Plan Referrals: NONE,PCP [Primary Care Provider] -
--- NOTE | 2019-02-06 11:31 | Nephrology Progress Note ---
Date of Encounter: 02/06/19 Time of Encounter: 11:31 - Assessment and Plan (1) End stage renal disease Current Visit: No Status: Chronic Patient on dialysis Wednesday schedule, but questionable whether patient was able to make Wednesday session. Currently requiring three pressors in order to keep blood pressure stabilized preventing HD Right Femoral temporary catheter placed by IR Citrate stopped due to calcium shortage and heparin held due to thrombocytopenia -CVV HDF: patient hypotensive so fluid removal was stopped overnight. -Currently only requiring 2 pressors with better blood pressure, well begin titrating that filtration with hopes of a net positive of 25-50 by tomorrow -24 hour I&Os of -896.9L, cumulative I and O's of +5158.9 -Femoral line clean and intact. Pt 2/2 blood cultures positive for MRSA bacteremia prior to placement of lines. -Interventional Radiology to attempt IJ temporary dialysis catheter placement -Continue to limit unnecesary fluid use -Strict I&Os -Daily weights (2) Thrombocytopenia Current Visit: Yes Status: Chronic Platelet count slightly improved up to 60 from previous day of 46 -Continue to hold IV heparin (3) Bacteremia Current Visit: Yes Status: Acute Plan to remove femoral HD catheter today and replace with IJ HD catheter. -Repeat BC pending (4) Rhabdomyolysis Current Visit: Yes Status: Resolved Patient found down at home for unknown period of time CK of 1210 on admission up to 1390 Given IV hydration in ED -Repeat CK of 173 on 02/04 Qualifiers: Qualified Code(s): M62.82 - Rhabdomyolysis Subjective Principal diagnosis: Septic shock Interval history: Patient intubated and sedated. Objective - Vital Signs Vital signs: Vital Signs Temp Pulse Resp BP Pulse Ox 02/06/19 11:00 98.1 F 98 33 106/54 97 02/06/19 10:00 95 28 89/57 99 02/06/19 09:42 28 89/57 99 02/06/19 08:00 88 02/06/19 07:39 28 98 02/06/19 07:00 97.1 F L 86 28 103/61 98 02/06/19 06:00 99 28 107/56 97 02/06/19 05:00 101 28 104/55 96 02/06/19 04:22 28 99 02/06/19 04:00 99.1 F 102 29 110/52 97 02/06/19 03:00 102 28 92/46 94 02/06/19 02:52 29 96 02/06/19 02:00 94 29 87/39 96 02/06/19 01:00 94 30 95/48 96 02/06/19 00:24 29 96 02/06/19 00:00 98.6 F 96 28 96/50 96 02/05/19 23:18 97 02/05/19 23:00 86 28 90/46 96 02/05/19 22:27 28 98 02/05/19 22:00 85 28 96/50 96 02/05/19 21:00 81 28 98/51 97 02/05/19 20:00 97.9 F 78 28 96/54 99 02/05/19 19:57 28 98 02/05/19 19:35 84 02/05/19 19:00 87 30 99/53 100 02/05/19 18:00 80 30 102/72 100 02/05/19 17:05 33 97/64 100 02/05/19 17:00 79 28 97/64 95 02/05/19 16:00 97.0 F L 76 28 90/65 95 02/05/19 15:45 28 74/56 95 02/05/19 15:00 74 28 84/57 98 02/05/19 14:00 76 28 85/64 98 02/05/19 13:45 28 83/59 96 02/05/19 13:00 78 28 81/62 98 02/05/19 12:00 97.2 F L 79 30 67/49 98 Intake and Output 02/05/19 02/06/19 02/06/19 23:59 07:59 15:59 Intake Total 1881.8 / 3524.2 533.5 / 1030.5 497 / 1030.5 Output Total 275 / 935 1 / 407 406 / 407 Balance 1606.8 / 2589.2 532.5 / 623.5 91 / 623.5 Intake: IV Fluids 1821.8 / 3227.2 503.5 / 1000.5 497 / 1000.5 PrismaSATE BGK 4/2.5 5,000 ML @ 0 / 0 0 / 0 1500 mls/hr CRRT [facility] Rx#: [id number] FentaNYL (PF) 1,000 MCG In 0.9 61.6 / 209.7 33.4 / 38.4 5 / 38.4 % Sodium Chloride 80 ML @ 50 MCG/HR 5 mls/hr IVC CONT [facility] Rx #:[id number] Versed 50 MG In 0.9 % Sodium 0 / 0 Chloride 90 ML @ 2 MG/HR 4 mls/ hr IVC CONT [facility] Rx#:[id number] Levophed 8 MG In 0.9 % Sodium 0 / 63.2 8 / 56 48 / 56 Chloride 250 ML @ 0.5 MCG/MIN 0 .968 mls/hr IVC CONT [facility] Rx#: [id number] Phenylephrine 50 MG In 0.9 % 536.7 / 1269.3 378.3 / 478.3 100 / 478.3 Sodium Chloride 250 ML @ 100 MCG/MIN 30.6 mls/hr IVC CONT [facility] Rx#:[id number] Vasostrict 40 UNIT In Dextrose 54 / 106.7 36.3 / 47.3 11 / 47.3 5% 100 ML @ 0.03 UNIT/MIN 4.59 mls/hr IVC .[id number] [facility] Rx#: [id number] ALBURX 5% 12.5 gm In 250 ml @ 1000 / 1000 60 mls/hr IVPB Q40MIN [facility] Rx#: [id number] Zosyn 3.375 GM In 0.9 % Sodium 169.5 / 319.4 47.5 / 130.5 83 / 130.5 Chloride (Mini-Bag +) 100 ML @ 25 mls/hr IVPB Q8H [facility] Rx#: [id number] Vancocin 1,500 MG In 0.9 % 250 / 250 Sodium Chloride 250 ML @ 166.67 mls/hr IVPB ONCE ONE Rx#: [id number] Tube Feeding 30 / 30 Free Water 30 / 90 Free Water Intake Amount 30 / 120 Output: Rectal Tube 0 / 50 0 / 0 0 / 0 Catheter 0 / 0 0 / 0 0 / 0 Gastric Drainage 0 / 350 350 / 350 Fluid Removed by Prismaflex 275 / 885 Other: Weight 123.7 kg 125.5 kg 125.5 kg Blood Glucose* 137 153 170 Patient Weight 02/06/19 23:59 Weight 125.5 kg - General Appearance Exam: General appearance: obese, chronically ill, intubated HEENT: ET tube is in place. No evidence of scleral icterus. Neck: no thyromegaly. No adenopathy Respiratory: Course breath sounds Cardiology: irregular rhythm. HR controlled around 90. Gastrointestinal: normoactive bowel sounds, obese. distended Ext: Chronic venous stasis changes to bilateral lower extremities with darkening of the skin and hardening appears slightly softened today with 3+ pitting edema. Warmth over the dorsal aspect of the right foot. Left arm with graft in place but no evidence of thrill and warmth over the overlying skin. Skin: Left foot with venous-appearing ulceration on the plantar surface. Bilateral lower extremities with extensive chronic venous stasis changes. 2+ pit ting edema. Neuro/Psych: Unable to obtain as patient is currently sedated and intubated. Dialysis Vascular Access: Temporary femoral line on the right which is currently being used is clean and intact - Lab 02/06/19 03:40 02/06/19 03:40 Most recent lab results 02/06/19 02/06/19 03:40 05:22 ABG pH 7.26 L ABG pCO2 43 ABG pO2 87 ABG HCO3 19 L ABG O2 Saturation 95 Calcium 9.8 Consult Discharge Plan - Plan Referrals: NONE,PCP [Primary Care Provider] -
--- NOTE | 2019-02-06 11:47 | Palliative Progress Note ---
Date of Encounter: 02/06/19 Time of Encounter: 11:30 - Assessment and plan (1) Advanced care planning/counseling discussion Current Visit: Yes Status: Acute Assessment and plan: Discussed with patient's mother at bedside. She has been updated on clinical status and aware of infarcts on CT scan. Awaiting neurology consult. Discussed that he is not tolerating artificial nutrition at this point at well. Mother emotional, verbalized that along with pt being so ill, patient's son "got into trouble, was drinking and is in senior care". Emotional support given. Mother continues to state that she is continuing to pray, and that God is in control. Desires for present care to continue. We did have discussion regarding how much patient disliked the ventilator in the past, and likely would not want fci life support. Will continue to follow clinical course and discuss goals with family. (2) Palliative care encounter Current Visit: Yes Status: Acute (3) Nonischemic cardiomyopathy Current Visit: Yes Status: Chronic (4) End stage renal disease on dialysis Current Visit: Yes Status: Chronic Assessment and plan: Remains on Lilly - nephrology following (5) Acute respiratory failure Current Visit: Yes Status: Acute Assessment and plan: Remains on vent support Qualifiers: Qualified Code(s): J96.00 - Acute respiratory failure, unspecified whether with hypoxia or hypercapnia (6) Shock Current Visit: Yes Status: Acute - Time Spent With Patient Total time spent is greater than 50% in coordination of care (as documented) at patient's floor/unit and/or counseling patient: 25 - 35 minutes - Subjective Interval history: Patient weekend event reviewed. CT scan head completed demonstrates new lacunar infarcts bilateral frontal and parietal lobes. He has all sedation shut off and thus far non responsive. Tube feeding had to be shut off over weekend r/t high residuals. Tube was clamped for 24 hours and still had approx 300 residual. Remains on norepinephrine at present. - Constitutional Vitals: Abnormal lab results WBC 12.9 K/mcL (4.3-11.1) H 02/06/19 03:40 RBC 5.57 M/mcL (4.19-5.50) H 02/02/19 03:15 MCH 27.1 pg (28.0-33.3) L 02/06/19 03:40 MCHC 30.6 g/dL (31.6-35.5) L 02/06/19 03:40 RDW 20.8 % (11.5-14.5) H 02/06/19 03:40 Plt Count 60 K/mcL (140-400) L 02/06/19 03:40 Immature Gran % 6.4 % (0-4) H 02/06/19 03:40 Neutrophils # 10.6 K/mcL (1.6-8.9) H 02/06/19 03:40 Lymphocytes # 0.5 K/mcL (0.6-4.6) L 02/02/19 03:15 Monocytes # 1.4 K/mcL (0.0-1.3) H 02/04/19 03:10 Nucleated RBCs/100 WBC 0.2 /100 WBC (0) H 02/06/19 03:40 Platelet Estimate Decreased (Normal) L 02/03/19 04:15 Immature Plt Fraction 19.4 % (1.1-6.1) H 02/05/19 03:10 Polychromasia 1+ (Not Present) A 02/03/19 04:15 PT 14.3 Seconds (9.4-12.1) H 02/04/19 03:10 APTT 46.1 Seconds (26.0-36.0) H 02/01/19 05:06 Heparin Anti-Xa, Unfract 0.29 IU/mL (0.30-0.70) L 02/03/19 11:00 ABG pH 7.26 pH Units (7.32-7.45) L 02/06/19 05:22 ABG pCO2 46 mmHg (35-45) H 02/05/19 05:25 ABG pO2 78 mmHg (85-104) L 02/04/19 20:44 ABG HCO3 19 mEq/L (21-27) L 02/06/19 05:22 ABG Total CO2 27 mEq/L (20-26) H 02/01/19 04:58 ABG O2 Saturation 94 % (95-98) L 02/02/19 11:16 ABG Base Excess -8 mEq/L (-2 to 3) L 02/06/19 05:22 VBG pCO2 32 mmHg (41-51) L 02/01/19 17:38 VBG pO2 209 mmHg (25-50) H 02/01/19 17:38 VBG HCO3 19 mEq/L (21-27) L 02/01/19 17:38 VBG Hematocrit 57.0 % (37.5-50.1) H 02/01/19 17:38 VBG Lactic Acid 3.7 mmol/L (0.5-2.2) H 02/01/19 17:38 Venous Sodium 134 mEq/L (135-145) L 02/01/19 17:38 Sodium 134 mEq/L (136-145) L 02/05/19 03:10 Potassium 5.2 mEq/L (3.5-5.1) H 02/01/19 02:25 Chloride 94 mEq/L (98-107) L 02/01/19 02:25 Carbon Dioxide 18 mEq/L (23-29) L 02/06/19 03:40 BUN 32 mg/dL (6-20) H 02/03/19 04:00 Creatinine 1.77 mg/dL (0.70-1.30) H 02/06/19 03:40 Est GFR ( Amer) 50 (> 60) L 02/06/19 03:40 Est GFR (Non-Af Amer) 41 (> 60) L 02/06/19 03:40 Glucose 191 mg/dL (70-105) H 02/06/19 03:40 Whole Bld Glucose 141 mg/dl (65-95) H 02/01/19 17:38 POC Glucose 137 mg/dL (70-99) H 02/05/19 23:05 Calculated Osmolality 303 (280-300) H 02/01/19 02:25 Calcium 10.4 mg/dL (8.6-10.3) H 01/31/19 19:23 Venous Ioniz Calcium 0.86 mmol/L (1.15-1.35) L 02/02/19 05:46 Phosphorus 2.4 mg/dL (2.7-4.5) L 02/04/19 03:10 Total Bilirubin 4.3 mg/dL (0.3-1.0) H 02/03/19 04:00 Direct Bilirubin 0.5 mg/dL (0.0-0.2) H 01/31/19 19:23 Alkaline Phosphatase 158 Units/L (34-104) H 02/03/19 04:00 Creatine Kinase 283 Units/L (30-223) H 02/04/19 03:10 Troponin I 0.12 ng/mL (< 0.04) H* 02/01/19 02:25 Serum Total Protein 5.9 g/dL (6.4-8.9) L 02/03/19 04:00 Albumin 2.9 g/dL (3.5-5.7) L 02/03/19 04:00 Albumin/Globulin Ratio 1.0 (1.1-2.2) L 02/03/19 04:00 Lipase 4 Units/L (11-82) L 02/01/19 02:25 Vancomycin Trough 15 mcg/mL (5-10) H 02/06/19 04:58 Hep Bs Antibody < 3.10 mIU/mL (10.00-) L 02/01/19 13:25 Staph aureus (PCR) DETECTED (Not Detect) A 02/03/19 08:37 mecA-Methicil Res Gene DETECTED (Not Detect) A 02/03/19 08:37 General appearance: Present: no acute distress - Respiratory Respiratory exam: Present: decreased breath sounds - Cardiovascular Cardiovascular exam: Present: irregular rhythm - GI/Abdominal GI/Abdominal exam: Present: diminished bowel sounds, distended, soft - Extremities Exam Additional comments: Edema bilateral lower extremities right greater than left. Callouses to both feet - Neurological Exam Additional comments: Unresponsive to verbal/tactile stimuli - Skin Skin exam: Present: dry, warm Palliative Quality Palliative Quality: Screen for Code Status: Yes, Screen for Goals of Care: Yes, Screen for Pain: NA, If Pain Regimen Started, Initiate Bowel Regimen: NA, Screen for Nausea/Vomitting: NA Code Status: 02/01/19 00:46 Resuscitation Status: Active [RES] Routine Comment: Resuscitation Status: Full Code - Labs CBC & Chem 7: 02/06/19 03:40 02/06/19 03:40 Labs: Laboratory Results - last 24 hr 02/05/19 02/05/19 02/05/19 03:34 07:44 11:48 WBC RBC Hgb Hct MCV MCH MCHC RDW Plt Count MPV Immature Gran % Seg Neutrophils % Lymphocytes % Monocytes % Eosinophils % Basophils % Neutrophils # Lymphocytes # Monocytes # Eosinophils # Basophils # Nucleated RBCs/100 WBC ABG pH ABG pCO2 ABG pO2 ABG HCO3 ABG Total CO2 ABG O2 Saturation ABG Base Excess Respiration Rate O2 Delivery Device Blood Gas Modality Inspired O2 Tidal Volume PEEP Sodium Potassium Chloride Carbon Dioxide BUN Creatinine Est GFR ( Amer) Est GFR (Non-Af Amer) BUN/Creatinine Ratio Glucose POC Glucose 141 H 124 H 138 H Calculated Osmolality Lactic Acid Calcium AST ALT Vancomycin Trough 02/05/19 02/05/19 02/05/19 11:55 16:11 19:34 WBC RBC Hgb Hct MCV MCH MCHC RDW Plt Count MPV Immature Gran % Seg Neutrophils % Lymphocytes % Monocytes % Eosinophils % Basophils % Neutrophils # Lymphocytes # Monocytes # Eosinophils # Basophils # Nucleated RBCs/100 WBC ABG pH ABG pCO2 ABG pO2 ABG HCO3 ABG Total CO2 ABG O2 Saturation ABG Base Excess Respiration Rate O2 Delivery Device Blood Gas Modality Inspired O2 Tidal Volume PEEP Sodium Potassium Chloride Carbon Dioxide BUN Creatinine Est GFR ( Amer) Est GFR (Non-Af Amer) BUN/Creatinine Ratio Glucose POC Glucose 147 H 137 H Calculated Osmolality Lactic Acid 1.4 Calcium AST ALT Vancomycin Trough 02/05/19 02/06/19 02/06/19 23:05 03:40 03:40 WBC 12.9 H RBC 5.17 Hgb 14.0 Hct 45.8 MCV 88.6 MCH 27.1 L MCHC 30.6 L RDW 20.8 H Plt Count 60 L MPV TNP Immature Gran % 6.4 H Seg Neutrophils % 82.0 Lymphocytes % 5.2 Monocytes % 6.0 Eosinophils % 0.1 Basophils % 0.3 Neutrophils # 10.6 H Lymphocytes # 0.7 Monocytes # 0.8 Eosinophils # 0.0 Basophils # 0.0 Nucleated RBCs/100 WBC 0.2 H ABG pH ABG pCO2 ABG pO2 ABG HCO3 ABG Total CO2 ABG O2 Saturation ABG Base Excess Respiration Rate O2 Delivery Device Blood Gas Modality Inspired O2 Tidal Volume PEEP Sodium 136 Potassium 4.9 Chloride 102 Carbon Dioxide 18 L BUN 17 Creatinine 1.77 H Est GFR ( Amer) 50 L Est GFR (Non-Af Amer) 41 L BUN/Creatinine Ratio 10 Glucose 191 H POC Glucose 137 H Calculated Osmolality 289 Lactic Acid Calcium 9.8 AST ALT Vancomycin Trough 02/06/19 02/06/19 02/06/19 03:40 03:40 04:58 WBC RBC Hgb Hct MCV MCH MCHC RDW Plt Count MPV Immature Gran % Seg Neutrophils % Lymphocytes % Monocytes % Eosinophils % Basophils % Neutrophils # Lymphocytes # Monocytes # Eosinophils # Basophils # Nucleated RBCs/100 WBC ABG pH ABG pCO2 ABG pO2 ABG HCO3 ABG Total CO2 ABG O2 Saturation ABG Base Excess Respiration Rate O2 Delivery Device Blood Gas Modality Inspired O2 Tidal Volume PEEP Sodium Potassium Chloride Carbon Dioxide BUN Creatinine Est GFR ( Amer) Est GFR (Non-Af Amer) BUN/Creatinine Ratio Glucose POC Glucose Calculated Osmolality Lactic Acid 1.5 Calcium AST 25 ALT 19 Vancomycin Trough 15 H 02/06/19 05:22 WBC RBC Hgb Hct MCV MCH MCHC RDW Plt Count MPV Immature Gran % Seg Neutrophils % Lymphocytes % Monocytes % Eosinophils % Basophils % Neutrophils # Lymphocytes # Monocytes # Eosinophils # Basophils # Nucleated RBCs/100 WBC ABG pH 7.26 L ABG pCO2 43 ABG pO2 87 ABG HCO3 19 L ABG Total CO2 20 ABG O2 Saturation 95 ABG Base Excess -8 L Respiration Rate 28 O2 Delivery Device Adult Vent Blood Gas Modality ASSIST CONTROL Inspired O2 50.0 Tidal Volume 530 PEEP 8 Sodium Potassium Chloride Carbon Dioxide BUN Creatinine Est GFR ( Amer) Est GFR (Non-Af Amer) BUN/Creatinine Ratio Glucose POC Glucose Calculated Osmolality Lactic Acid Calcium AST ALT Vancomycin Trough - Impressions Impressions KUB X-Ray 02/05/19 13:36 IMPRESSION: 1. Unremarkable abdominal radiograph. No finding to account for patient's abdominal distention and pain. D/ / Marcello Ibrahim MD / Marcello Ibrahim MD Interpreting Provider: Marcello Ibrahim MD Head CT 02/06/19 08:32 IMPRESSION: 1. A few small foci of decreased attenuation within the bilateral frontal and left parietal lobes, which are not appreciated on the prior exam. These may represent involving acute lacunar infarcts. 2. No mass effect or midline shift. 3. Scattered mucosal thickening of the paranasal sinuses with bilateral mastoid effusions. D/ / Boni Bahena MD / Boni Bahena MD Interpreting Provider: Boni Bahena MD Abdomen/Pelvis CT 02/06/19 08:33 IMPRESSION: Study limited by motion and lack of IV contrast. ET tube and NG tube have been placed and appear to be in expected position. Small amount of air within the right anterior chest likely from attempted placement of vascular catheter. Interval placement of right dialysis catheter which appears to be in expected position from right femoral approach. Right-sided femoral line appear stable. Dependent consolidation of the lung bases most compatible with atelectasis. Superimposed pneumonia cannot be excluded but felt less likely. Mild degree of ascites slightly increased from the comparison. Mild stranding along the colon is felt to be related to underlying increase in abdominal fluid. Underlying mild infection, colitis cannot be excluded. Green catheter is in place. Faint increased density in the left renal collecting system which may represent small stones, debris or possible hemorrhage. Please correlate with patient's urinalysis. D/ : / 02/06/2019 09:48:37 Dar Love MD / [facility] Interpreting Provider: Dar Love MD Chest CT 02/06/19 08:33 IMPRESSION: Study limited by motion and lack of IV contrast. ET tube and NG tube have been placed and appear to be in expected position. Small amount of air within the right anterior chest likely from attempted placement of vascular catheter. Interval placement of right dialysis catheter which appears to be in expected position from right femoral approach. Right-sided femoral line appear stable. Dependent consolidation of the lung bases most compatible with atelectasis. Superimposed pneumonia cannot be excluded but felt less likely. Mild degree of ascites slightly increased from the comparison. Mild stranding along the colon is felt to be related to underlying increase in abdominal fluid. Underlying mild infection, colitis cannot be excluded. Green catheter is in place. Faint increased density in the left renal collecting system which may represent small stones, debris or possible hemorrhage. Please correlate with patient's urinalysis. D/ : / 02/06/2019 09:48:37 Dar Love MD / [facility] Interpreting Provider: Dar Love MD Foot CT 02/06/19 08:35 IMPRESSION: 1. Erosive changes/irregularity as detailed above with a midfoot predominance. Differential considerations include Charcot/neuropathic changes, gout, or inflammatory arthropathy. 2. Moderate to severe cellulitis of the left ankle and left foot. No discrete organized fluid collection evident. Suspected mild myositis of the intertarsal musculature with mild to moderate fatty degeneration. 3. No acute fracture identified. No aggressive osseous destruction. 4. Moderate plantar calcaneal spur. D/ / 02/06/2019 09:37:02 Chaim Dumont MD / [facility] Interpreting Provider: Chaim Dumont MD Foot CT 02/06/19 08:35 IMPRESSION: 1. Abnormal morphology of the midfoot with areas of bony destruction, erosive change, and large tibiotalar and midfoot joint effusion. 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 Infection is considered less likely unless there is an open wound or ulcer. 2. Extensive soft tissue edema. Peroneal and posterior tibialis tenosynovitis. No discrete fluid collection on the noncontrast CT. No wound or ulcer. 3. Remote fracture of the proximal phalanx 1st digit without bony union. D/ / 02/06/2019 09:35:18 Cisco Aponte MD / [facility] Interpreting Provider: Cisco Aponte MD - ABG Interpretation ABG results: ABG ABG pH 7.26 pH Units (7.32-7.45) L 02/06/19 05:22 ABG pCO2 43 mmHg (35-45) 02/06/19 05:22 ABG pO2 87 mmHg (85-104) 02/06/19 05:22 ABG O2 Saturation 95 % (95-98) 02/06/19 05:22 PT/INR, D-dimer PT 14.3 Seconds (9.4-12.1) H 02/04/19 03:10 Consult Discharge Plan - Plan Referrals: NONE,PCP [Primary Care Provider] -
--- NOTE | 2019-02-06 13:03 | Neurology - Consult Note ---
<Alpesh Leong J - Last Filed: 02/06/19 15:23> Date of Encounter: 02/06/19 Time of Encounter: 13:03 Assessment and Plan (1) Abnormal CT of the head Current Visit: Yes Status: Acute Neurology c/s for recommendations regarding abnormal CT scan of the head Patient initially presented after being found down for an unknown amount of time with respiratory failure, septic shock and MRSA bacteremia of unknown source Was intubated and on sedation. Sedation is now off but he remains intubated and unresponsive He is still requiring Lilly dialysis and pressure support with norepinephrine CT Head completed today reveal multiple scattered foci of decreased attenuation in the bilateral frontal and left parietal lobe not seen on previously seen on prior scans This morning he did not have any corneal reflex, pupillary reflex or gag; these have returned as of this afternoon The neurological exam is limited by his altered mental state however there are no obvious lateralizing findings He does have poor tone all over however. There is no nuchal rigidity or fevers, [facility] infection felt to be unlikely Repeat CT head in the a.m. to assess for anoxia Will get EEG in the a.m as well d/t concerns for anoxia Otherwise, c/w medical and supportive care Neurology will continue to follow (2) Encephalopathy Current Visit: Yes Status: Acute History of Present Illness Chief complaint: Concern for CVA per CT head HPI: Mr. Hatch is a 48 year old male with a PMH of arthritis, A. fib, cardiomyopathy, CHF, COPD, DM, ESRD on HD Wednesday, GERD, HLD, HTN, osteoporosis, anxiety, depression who is occurring daily smoker and marijuana user. He initially presented to [facility] after being found down and in r espiratory distress as such he was intubated and sedated with Fentanyl and Versed. SANITARY INSPECTOR reports that the Versed has been off since Wednesday however, low-dose fentanyl drip was continued as of this morning. The patient has been minimally responsive since down titration of sedatives and this morning is reported that he did not have any corneal reflexes, pupillary response or gag. A CT of the head was obtained this morning showing several small foci of decreased attenuation within the bilateral frontal and left parietal lobes which are not appreciated on previous exam. This is concerning for an acute infarct. Neurology has been consulted for further evaluation. Currently, sedation as the patient is still not responding to painful/noxious stimuli and does not follow commands. Of note, his brainstem reflexes have improved and corneal reflexes are present, pupillary response is present but sluggish, doll's eyes were intact and gag reflexes intact. Otherwise, neurological exam is extremely limited. It should be noted that due to the patient's altered mental status the history of p resent illness was obtained from chart review and provider to provider report. Currently he is still requiring norepinephrine for pressure support. Review of his labs reveal chronic but stable ESRD and the patient is still on Lilly dialysis. He continues to have leukocytosis but this appears to be down trending. Etiology for infectious source unclear but blood cultures reveal MRSA bacteremia. He underwent CT scan of chest abdomen and pelvis this morning. CT chest shows tympanic consolidation of the lung bases most compatible with atelectasis but superimposed pneumonia cannot be fully excluded was felt to be less likely. No obvious intra-abdominal findings for infection. CT of left and right foot does not reveal any obvious infection. Past Med Surg Social Fam HX - Past Medical History Medical history: arthritis, atrial fibrillation, cardiomyopathy, CHF, COPD, diabetes, dialysis, GERD, hyperlipidemia, hypertension, osteoporosis, renal disease, other Additional medical history: marijuana Psychiatric history: anxiety, depression, PTSD, other - Past Surgical History Surgical History: herniorrhaphy, vascular surgery, other Additional surgical history: dialysis graft - Social History Smoking Status: Current every day smoker Smokeless Tobacco Status: No Alcohol use: none Drug use: marijuana - Family History Father Living Status: Hx Family Cardiac Disorders: Yes (HTN) Hx Family Respiratory Disorders: No Hx Family Cancer: No Hx Family GI Disorders: No Hx Family Endocrine Disorder: No Hx Family Neuromuscular Disorders: No Hx Family Neurologic Disorders: No Hx Family HEENT Disorders: No Hx Family Autoimmune Disorders: No Mother Adopted: No Living Status: Still Living Hx Family Cardiac Disorders: Yes Hx Family Endocrine Disorder: Yes Medications and Allergies Insulin ASPART [NovoLOG] 0 unit SQ TIDWM 02/09/17 [History] Apixaban [Eliquis] 5 mg PO BID 11/22/18 [History] Fluticasone Propionate Nasal [Flonase] 1 spray NS DAILY PRN 11/22/18 [History] Calcium Acetate [Phos-LO] 3,335 mg PO TIDWM 11/23/18 [History] Midodrine HCl 10 mg PO TID 11/23/18 [History] Pregabalin [Lyrica] 100 mg PO TID 11/23/18 [History] Insulin Glargine,Hum.rec.anlog [Lantus Solostar] 25 unit SQ BID 12/15/18 [History] [place]-3/Dha/Epa/Fish Oil [Fish Oil 1,000 mg Softgel] 2 cap PO QPM 12/15/18 [History] Atorvastatin [Lipitor] 40 mg PO HS 30 Days #30 tablet 12/29/18 [Rx] Carvedilol [Coreg] 6.25 mg PO BID 01/31/19 [History] Allergy/AdvReac Type Severity Reaction Status Date / Time hydrocodone [From [place]] Allergy Intermediate Hives Verified 12/14/18 20:29 lanolin AdvReac Swelling Verified 12/14/18 20:29 [From [facility] the Eye mineral oil AdvReac Swelling Verified 12/14/18 20:29 [From [facility] the [facility] petrolatum,white AdvReac Swelling Verified 12/14/18 20:29 [From [facility] ROS unobtainable: due to mental status All Systems: The remainder of the systems were reviewed and are negative Physical Examination - Vital Signs Vital Signs: Initial Vital Signs Temp Pulse Resp BP Pulse Ox 96.9 F L 153 28 148/120 100 01/31/19 19:17 01/31/19 19:17 01/31/19 19:17 01/31/19 19:17 01/31/19 19:17 - Exam Exam: Examination: General Examination: Limited by patient's altered mental state *CONSTITUTIONAL: Obtunded. Does not arouse to tactile or noxious stimu fritz *GENERAL APPEARANCE OF PATIENT appears healthy and well groomed *EYES: pupils equal and sluggish but, round, reactive to light and accommodation, conjunctiva clear without masses or ulcerations, fundi normal. *CARDIOVASCULAR: Positive for bilateral lower extremity peripheral edema 1+ pitting, distal temperature normal, Refer to vital signs * MUSCULOSKELETAL: *ASSESSMENT OF MUSCLE STRENGTH IN THE UPPER AND LOWER EXTREMITIES unable to assess; does not move ext to noxious stimulus and no spontaneous movement seen on exam. Overall flaccid tone b/l upper and lower extremities Neurological: *ORIENTATION unable to assess as the patient is obtunded *CN II optic fundi were normal, no papilledema noted. *CN III,IV, PERRLA, sluggish, dolls eyes intact *CN XII gag reflex intact *REFLEXES: no pathological reflexes found, absent reflexes throughout b/l bicep, tricep, patellar, and achilles Results - Laboratory Findings CBC and BMP: 02/06/19 03:40 02/06/19 03:40 Abnormal lab findings: Abnormal lab results WBC 12.9 K/mcL (4.3-11.1) H 02/06/19 03:40 RBC 5.57 M/mcL (4.19-5.50) H 02/02/19 03:15 MCH 27.1 pg (28.0-33.3) L 02/06/19 03:40 MCHC 30.6 g/dL (31.6-35.5) L 02/06/19 03:40 RDW 20.8 % (11.5-14.5) H 02/06/19 03:40 Plt Count 60 K/mcL (140-400) L 02/06/19 03:40 Immature Gran % 6.4 % (0-4) H 02/06/19 03:40 Neutrophils # 10.6 K/mcL (1.6-8.9) H 02/06/19 03:40 Lymphocytes # 0.5 K/mcL (0.6-4.6) L 02/02/19 03:15 Monocytes # 1.4 K/mcL (0.0-1.3) H 02/04/19 03:10 Nucleated RBCs/100 WBC 0.2 /100 WBC (0) H 02/06/19 03:40 Platelet Estimate Decreased (Normal) L 02/03/19 04:15 Immature Plt Fraction 19.4 % (1.1-6.1) H 02/05/19 03:10 Polychromasia 1+ (Not Present) A 02/03/19 04:15 PT 14.3 Seconds (9.4-12.1) H 02/04/19 03:10 APTT 46.1 Seconds (26.0-36.0) H 02/01/19 05:06 Heparin Anti-Xa, Unfract 0.29 IU/mL (0.30-0.70) L 02/03/19 11:00 ABG pH 7.26 pH Units (7.32-7.45) L 02/06/19 05:22 ABG pCO2 46 mmHg (35-45) H 02/05/19 05:25 ABG pO2 78 mmHg (85-104) L 02/04/19 20:44 ABG HCO3 19 mEq/L (21-27) L 02/06/19 05:22 ABG Total CO2 27 mEq/L (20-26) H 02/01/19 04:58 ABG O2 Saturation 94 % (95-98) L 02/02/19 11:16 ABG Base Excess -8 mEq/L (-2 to 3) L 02/06/19 05:22 VBG pCO2 32 mmHg (41-51) L 02/01/19 17:38 VBG pO2 209 mmHg (25-50) H 02/01/19 17:38 VBG HCO3 19 mEq/L (21-27) L 02/01/19 17:38 VBG Hematocrit 57.0 % (37.5-50.1) H 02/01/19 17:38 VBG Lactic Acid 3.7 mmol/L (0.5-2.2) H 02/01/19 17:38 Venous Sodium 134 mEq/L (135-145) L 02/01/19 17:38 Sodium 134 mEq/L (136-145) L 02/05/19 03:10 Potassium 5.2 mEq/L (3.5-5.1) H 02/01/19 02:25 Chloride 94 mEq/L (98-107) L 02/01/19 02:25 Carbon Dioxide 18 mEq/L (23-29) L 02/06/19 03:40 BUN 32 mg/dL (6-20) H 02/03/19 04:00 Creatinine 1.77 mg/dL (0.70-1.30) H 02/06/19 03:40 Est GFR ( Amer) 50 (> 60) L 02/06/19 03:40 Est GFR (Non-Af Amer) 41 (> 60) L 02/06/19 03:40 Glucose 191 mg/dL (70-105) H 02/06/19 03:40 Whole Bld Glucose 141 mg/dl (65-95) H 02/01/19 17:38 POC Glucose 137 mg/dL (70-99) H 02/05/19 23:05 Calculated Osmolality 303 (280-300) H 02/01/19 02:25 Calcium 10.4 mg/dL (8.6-10.3) H 01/31/19 19:23 Venous Ioniz Calcium 0.86 mmol/L (1.15-1.35) L 02/02/19 05:46 Phosphorus 2.4 mg/dL (2.7-4.5) L 02/04/19 03:10 Total Bilirubin 4.3 mg/dL (0.3-1.0) H 02/03/19 04:00 Direct Bilirubin 0.5 mg/dL (0.0-0.2) H 01/31/19 19:23 Alkaline Phosphatase 158 Units/L (34-104) H 02/03/19 04:00 Creatine Kinase 283 Units/L (30-223) H 02/04/19 03:10 Troponin I 0.12 ng/mL (< 0.04) H* 02/01/19 02:25 Serum Total Protein 5.9 g/dL (6.4-8.9) L 02/03/19 04:00 Albumin 2.9 g/dL (3.5-5.7) L 02/03/19 04:00 Albumin/Globulin Ratio 1.0 (1.1-2.2) L 02/03/19 04:00 Lipase 4 Units/L (11-82) L 02/01/19 02:25 Vancomycin Trough 15 mcg/mL (5-10) H 02/06/19 04:58 Hep Bs Antibody < 3.10 mIU/mL (10.00-) L 02/01/19 13:25 Staph aureus (PCR) DETECTED (Not Detect) A 02/03/19 08:37 mecA-Methicil Res Gene DETECTED (Not Detect) A 02/03/19 08:37 - Diagnostic Findings Additional findings: CT/CT head/brain wo con IMPRESSION: 1. A few small foci of decreased attenuation within the bilateral frontal and left parietal lobes, which are not appreciated on the prior exam. These may represent involving acute lacunar infarcts. 2. No mass effect or midline shift. 3. Scattered mucosal thickening of the paranasal sinuses with bilateral mastoid effusions. Consult Discharge Plan - Plan Referrals: NONE,PCP [Primary Care Provider] - <Hiram Gant - Last Filed: 02/06/19 16:27> Date of Encounter: 02/06/19 Assessment and Plan (1) Abnormal CT of the head Current Visit: Yes Status: Acute I have personally performed a [id number] assessment of the patient and have re viewed the PA/NURSE OB note. My impressions are as follows: I agree with the documentation line above by the WOUND CARE PHYSICIAN. One other thought is that perhaps the CT abnormalities could represent a watershed infarcts as a result of hypotension. Otherwise I see no evidence of a primary neurologic process. Suspect cerebral anoxia secondary to respiratory failure. We will repeat CT of the head in the morning and obtain an EEG. Critical care time spent with this patient today was 45 minutes of which greater than 50% of that time was spent in [id number] contact and coordinating care. (2) Encephalopathy Current Visit: Yes Status: Acute History of Present Illness HPI: The chart was reviewed, the patient was seen and examined along with the nurse practitioner. I agree with his documentation of the history of present illness as outlined above. ROS unobtainable: due to mental status All Systems: The remainder of the systems were reviewed and are negative Physical Examination - Vital Signs Vital Signs: Initial Vital Signs Temp Pulse Resp BP Pulse Ox 96.9 F L 153 28 148/120 100 01/31/19 19:17 01/31/19 19:17 01/31/19 19:17 01/31/19 19:17 01/31/19 19:17 - Exam Exam: I have personally performed a [id number] assessment of the patient and have reviewed the PA/NURSE OB note. My impressions are as follows: The left pupillary response was diminished, the right pupillary response was absent. For cerebral functions patient is comatose and unarousable. No spontaneous eye opening, no command following. No grimacing to noxious stimuli. No nuchal rigidity is present. Otherwise I agree with the neurologic examination is documented above. Results - Laboratory Findings CBC and BMP: 02/06/19 03:40 02/06/19 03:40 Abnormal lab findings: Abnormal lab results WBC 12.9 K/mcL (4.3-11.1) H 02/06/19 03:40 RBC 5.57 M/mcL (4.19-5.50) H 02/02/19 03:15 MCH 27.1 pg (28.0-33.3) L 02/06/19 03:40 MCHC 30.6 g/dL (31.6-35.5) L 02/06/19 03:40 RDW 20.8 % (11.5-14.5) H 02/06/19 03:40 Plt Count 60 K/mcL (140-400) L 02/06/19 03:40 Immature Gran % 6.4 % (0-4) H 02/06/19 03:40 Neutrophils # 10.6 K/mcL (1.6-8.9) H 02/06/19 03:40 Lymphocytes # 0.5 K/mcL (0.6-4.6) L 02/02/19 03:15 Monocytes # 1.4 K/mcL (0.0-1.3) H 02/04/19 03:10 Nucleated RBCs/100 WBC 0.2 /100 WBC (0) H 02/06/19 03:40 Platelet Estimate Decreased (Normal) L 02/03/19 04:15 Immature Plt Fraction 19.4 % (1.1-6.1) H 02/05/19 03:10 Polychromasia 1+ (Not Present) A 02/03/19 04:15 PT 14.3 Seconds (9.4-12.1) H 02/04/19 03:10 APTT 46.1 Seconds (26.0-36.0) H 02/01/19 05:06 Heparin Anti-Xa, Unfract 0.29 IU/mL (0.30-0.70) L 02/03/19 11:00 ABG pH 7.26 pH Units (7.32-7.45) L 02/06/19 05:22 ABG pCO2 46 mmHg (35-45) H 02/05/19 05:25 ABG pO2 78 mmHg (85-104) L 02/04/19 20:44 ABG HCO3 19 mEq/L (21-27) L 02/06/19 05:22 ABG Total CO2 27 mEq/L (20-26) H 02/01/19 04:58 ABG O2 Saturation 94 % (95-98) L 02/02/19 11:16 ABG Base Excess -8 mEq/L (-2 to 3) L 02/06/19 05:22 VBG pCO2 32 mmHg (41-51) L 02/01/19 17:38 VBG pO2 209 mmHg (25-50) H 02/01/19 17:38 VBG HCO3 19 mEq/L (21-27) L 02/01/19 17:38 VBG Hematocrit 57.0 % (37.5-50.1) H 02/01/19 17:38 VBG Lactic Acid 3.7 mmol/L (0.5-2.2) H 02/01/19 17:38 Venous Sodium 134 mEq/L (135-145) L 02/01/19 17:38 Sodium 134 mEq/L (136-145) L 02/05/19 03:10 Potassium 5.2 mEq/L (3.5-5.1) H 02/01/19 02:25 Chloride 94 mEq/L (98-107) L 02/01/19 02:25 Carbon Dioxide 18 mEq/L (23-29) L 02/06/19 03:40 BUN 32 mg/dL (6-20) H 02/03/19 04:00 Creatinine 1.77 mg/dL (0.70-1.30) H 02/06/19 03:40 Est GFR ( Amer) 50 (> 60) L 02/06/19 03:40 Est GFR (Non-Af Amer) 41 (> 60) L 02/06/19 03:40 Glucose 191 mg/dL (70-105) H 02/06/19 03:40 Whole Bld Glucose 141 mg/dl (65-95) H 02/01/19 17:38 POC Glucose 137 mg/dL (70-99) H 02/05/19 23:05 Calculated Osmolality 303 (280-300) H 02/01/19 02:25 Calcium 10.4 mg/dL (8.6-10.3) H 01/31/19 19:23 Venous Ioniz Calcium 0.86 mmol/L (1.15-1.35) L 02/02/19 05:46 Phosphorus 2.4 mg/dL (2.7-4.5) L 02/04/19 03:10 Total Bilirubin 4.3 mg/dL (0.3-1.0) H 02/03/19 04:00 Direct Bilirubin 0.5 mg/dL (0.0-0.2) H 01/31/19 19:23 Alkaline Phosphatase 158 Units/L (34-104) H 02/03/19 04:00 Creatine Kinase 283 Units/L (30-223) H 02/04/19 03:10 Troponin I 0.12 ng/mL (< 0.04) H* 02/01/19 02:25 Serum Total Protein 5.9 g/dL (6.4-8.9) L 02/03/19 04:00 Albumin 2.9 g/dL (3.5-5.7) L 02/03/19 04:00 Albumin/Globulin Ratio 1.0 (1.1-2.2) L 02/03/19 04:00 Lipase 4 Units/L (11-82) L 02/01/19 02:25 Vancomycin Trough 15 mcg/mL (5-10) H 02/06/19 04:58 Hep Bs Antibody < 3.10 mIU/mL (10.00-) L 02/01/19 13:25 Staph aureus (PCR) DETECTED (Not Detect) A 02/03/19 08:37 mecA-Methicil Res Gene DETECTED (Not Detect) A 02/03/19 08:37
--- NOTE | 2019-02-06 17:39 | Event Note ---
Date of Encounter: 02/06/19 Time of Encounter: 17:37 48-year-old -[place] male that was admitted via the emergency room on January 31. He was found have multiple cultures positive for MRSA. No obvious sources been identified to date. He has required a very extensive effort for resuscitation including mechanical ventilation and continued dialysis through a femoral line. 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 By history he has had multiple interventions for the shunt. It is unsure when the shunt was last functional. A duplex scan was performed of the shunt during this hospitalization which was unimpressive with the exception of showing no flow. On exam the shunt is without a pulse or thrill. There is no edema over the shunt. He has a palpable radial pulse distally. There is no sense of bogginess or fluid retention around the AV shunt. In light of his obtunded neurologic status and potential new findings of lacunar infarcts bilaterally no further intervention from a vascular surgery perspective is recommended. Please reconsult if I can be of any further assistance.
[2019-02-06] MEDS: DAPTOmycin 1,000 MG in 0.9 % Sodium Chloride 100 ML IVPB SCH (19:40)
[2019-02-06] MEDS ORDERED: Aminoglycoside Consult 1 EACH MC ONE (21:35)
[2019-02-07] MEDS: Norepinephrine 8 MG in 0.9 % Sodium Chloride 250 ML IVC SCH (00:06)
[2019-02-07] MEDS: PrismaSATE BGK 4/2.5 5,000 ML CRRT SCH ×4 (00:07→03:40)
[2019-02-07] MEDS: Hydrocortisone Sodium Succ 100 MG/2 ML VIAL IVP SCH ×3 (03:01→12:32)
[2019-02-07] MEDS: Artificial Tears SOLN 15 ML BOTTLE BOTH EYES SCH ×4 (03:40→14:38)
[2019-02-07] MEDS: Insulin LISPRO 300 UNITS/3 ML VIAL SQ SCH ×3 (03:40→11:16)
[2019-02-07] MEDS: Piperacillin/Tazobactam 3.375 GM in 0.9 % Sodium Chloride Mini Bag 100 ML IVPB SCH ×2 (03:41→12:31)
[2019-02-07] MEDS: Ipratropium/Albuterol Neb 3 ML IH SCH ×2 (03:45→09:58)
[2019-02-07 03:55] LABS: Calcium 9.9 mg/dL (8.6-10.3); Potassium 3.8 mEq/L (3.5-5.1)
[2019-02-07 04:05] LABS: Basophils % 0.2 %; Hematocrit 40.1 % (37.5-50.1); Hemoglobin 12.7 g/dL (12.9-16.9); Immature Granulocytes % 1.9 % (0-4); Lymphocytes # 0.8 K/mcL (0.6-4.6); Lymphocytes % 7.6 %; Mean Corpuscular HGB Conc 31.7 g/dL (31.6-35.5); Mean Corpuscular Volume 85.1 fL (83.0-100.0); Monocytes # 0.9 K/mcL (0.0-1.3); Monocytes % 9.2 %; Neutrophils # 8.2 K/mcL (1.6-8.9); Nucleated Red Blood Cells 0.3 /100 WBC (0); Red Blood Count 4.71 M/mcL (4.19-5.50); Red Cell Distribution Width 20.2 % (11.5-14.5); Segmented Neutrophils % 81.1 %; White Blood Count 10.1 K/mcL (4.3-11.1)
[2019-02-07 04:12] LABS: Platelet Count 71 K/mcL (140-400)
[2019-02-07 04:13] LABS: ABG Base Excess -3 mEq/L (-2 to 3); ABG HCO3 22 mEq/L (21-27); ABG Oxygen Saturation 93 % (95-98); ABG PCO2 37 mmHg (35-45); ABG PH 7.38 pH Units (7.32-7.45); ABG PO2 67 mmHg (85-104); ABG TCO2 23 mEq/L (20-26); Blood Gas Modality ASSIST CONTROL; Blood Gas PEEP 5 cm H2O; Blood Gas VT 550 cc
[2019-02-07 04:40] LABS: Platelet Estimate Decreased (Normal)
[2019-02-07] MEDS: *HR* Heparin 5,000 UNIT/ML VIAL SQ SCH ×2 (05:43→12:32)
[2019-02-07] MEDS: Vasopressin 40 UNIT in D5% in Water 100 ML IVC SCH (05:45)
--- NOTE | 2019-02-07 07:04 | Pulmonology Progress Note ---
<Tono Salazar L - Last Filed: 02/07/19 11:25> Date of Encounter: 02/07/19 Time of Encounter: 07:04 Assessment and Plan (1) Septic shock Current Visit: Yes Status: Acute Shock, hemodynamic instability - Cardiogenic vs septic - Afib, no longer in RVR - Hypotension requiring one pressor. Levophed - Four sets of blood cultures growing MRSA - Daily blood cultures - Unknown source of infection, possible PNA - Vanc and zosyn day 7 - Daptomycin day 4 - Elevated WBC - Monitoring lactate - ABG pH 7.38 - Continue full vent support - Echo: Severe LV dysfunction. LVEF 20-25% - Nephrology, Continuing CRRT - QUIQUE: Valvular vegetation/abcess not present - May need to repeat QUIQUE after fourth set of blood cultures positive - Random cortisol 40.1 - Infectious disease consult - Hydrocortisone 50 q6h - CT head: possible new lacunar infarcts - CT chest: Atelectesis, possible PNA - CT abdomen pelvis: Slight ascitis - CT BL feet: Moderate/severe left foot cellulitis - Neurology consulted. Patient remains unresponsive after sedation was removed. Evidence of new stroke on head CT - EEG today - Family meeting today for goals of care (2) Sepsis due to methicillin resistant Staphylococcus aureus (MRSA) with acute hypercapnic respiratory failure and septic shock Current Visit: Yes Status: Acute As above (3) Bacterial endocarditis Current Visit: Yes Status: Acute Bacterial endocarditis - Four sets of blood cultures MRSA positive - MRSA gene positive - TTE inadequate for endocarditis - QUIQUE: no evidence of bacterial endocarditis - Continuing vanc and zosyn - Began daptomycin on 02/04 - May need to repeat QUIQUE Qualifiers: Chronicity: acute Qualified Code(s): I33.0 - Acute and subacute infective endocarditis (4) Cellulitis in diabetic foot Current Visit: Yes Status: Acute Foot cellulitis - Suspected BL foot cellulitis - BL LE edema - Ulcer on L foot - Podiatry consulted, diabetic foot unlikely source of bacteremia - Foot CT 02/06. Moderate/severe L foot cellulitis (5) Atrial fibrillation with RVR Current Visit: Yes Status: Chronic Afib with RVR - History of Afib - Refractory to two electric cardioversions in the ED - On eliquis at home - Anticoagulation held - Cardiology consulted - Continuing amio drip - No longer in RVR (6) Diabetes mellitus Current Visit: No Status: Chronic Hx of DM - Accuchecks q4h - High-dose corrective insulin - A1C 12.2% on 12/15/18 Qualifiers: Diabetes mellitus type: type 2 Diabetes mellitus residential insulin use: unspecified residential insulin use status Diabetes mellitus complication status: with kidney complications Diabetes mellitus complication detail: with chronic kidney disease Chronic kidney disease stage: on chronic dialysis Qualified Code(s): E11.22 - Type 2 diabetes mellitus with diabetic chronic kidney disease; N18.6 - End stage renal disease; Z99.2 - Dependence on renal dialysis (7) Elevated troponin Current Visit: Yes Status: Acute Elevated troponin - 0.13>>0.12 - Cardiology: Suspected demand ischemia in the setting of sepsis/shock/afib - Echo: severe LV dysfunction (8) Encephalopathy acute Current Visit: No Status: Resolved Acute encephalopathy - Likely secondary to shock and metabolic disturbances - Continue CRRT - Minimal response to stimuli - Neurology consulted 02/06 (9) End stage renal disease on dialysis Current Visit: Yes Status: Chronic ESRD - Nephrology consulted - CRRT Began on 02/02/19, continuing - Temporary dialysis catheter in place - Slowing fluid removal with CRRT due to hypotension (10) Nonischemic cardiomyopathy Current Visit: Yes Status: Chronic Nonischemic Cardiomyopathy - Cardiology consulted - Monitor I&Os and weight - Echo as above - EF 20% NICMP on previous echo (11) Rhabdomyolysis Current Visit: Yes Status: Resolved Rhabdomyolysis - Baseline CK before beginning daptomycin: 173 - CK 173>> 323 Qualifiers: Rhabdomyolysis type: non-traumatic Qualified Code(s): M62.82 - Rhabdomyolysis (12) Tobacco abuse Current Visit: No Status: Chronic Nicotine patch (13) DVT prophylaxis Current Visit: No Status: Acute SCD Sub Q Heparin (14) Thrombocytopenia Current Visit: Yes Status: Acute Thrombocytopenia - Platelet level stable - SCDand Heparin sub Q for DVT prophylaxis Subjective Principal diagnosis: Septic shock Interval history: Patient seen and examined. Afebrile. No overnight events. Patient is still unresponsive. Off sedation. Neurology began following her surgery. Head CT showed possible new stroke, we will repeat head CT this morning. Objective PUL Vital signs: Last Vital Signs Temp 98.2 F 02/07/19 04:00 Pulse 98 02/07/19 06:00 Resp 26 02/07/19 06:00 BP 94/49 02/07/19 06:00 Pulse Ox 95 02/07/19 06:00 Gen: Vitals noted. Hypotensive on vasopressors. Afib. Intubated Eyes: BL Scleral icterus, moist conjunctivae. Pupils 4mm, round, equal and minimally reactive to light HENT: Atraumatic, normocephalic; oropharynx clear with moist mucous membranes and no mucosal ulcerations Cardiac: RRR, S1S2, no murmurs, rubs, or gallops Pulmonary: Coarse mechanical breath sounds BL, no rales or rhonchi, equal chest expansion Abdomen: soft, full, non-distended, no rigidity. No masses or hepatosplenomegaly Extremities: BL lower extremity edema. Dry scaly skin on feet/ankles. R foot: swollen more than left. No noticeable lesions or ulcers. L foot: 2-3 cm round, scabbed, ulcer on bottom of foot. Skin: Warm and dry. Dry scaly skin on BL LEs Neuro: Corneal reflex, gag reflex intact. No purposeful movements. Analgesia: fentanyl gtt Sedation: none SBT: none Glycemic control: High-dose corrective insulin Bowel regimen:none Activity: none Fluids: MIVF Electrolytes: replete as necessary Nutrition: May try trickle feeds again. Depending on goals of care GI ppx: PPI Lines: ET, OG, winter, R fem CVC and temp dialysis catheter Consults: pulm, cardio, Nephrology, Palliative, Podiatry, Infectious disease, nutrition, Neurology Code: Full code Dispo: ICU Ventilator Settings Ventilator Settings: Ventilator Settings, Last 8 Hours Ventilator Tidal Volume 550 Setting Ventilator Tidal Volume 550 Setting Ventilator Tidal Volume 550 Setting Ventilator Tidal Volume 550 Setting Ventilator Tidal Volume 550 Setting Ventilator Tidal Volume 550 Setting Ventilator Tidal Volume 550 Setting Ventilator Tidal Volume 550 Setting Ventilator Tidal Volume 550 Setting Ventilator Tidal Volume 550 Setting Ventilator Tidal Volume 550 Setting Ventilator Respiratory Rate 26 Setting Ventilator Respiratory Rate 26 Setting Ventilator Respiratory Rate 28 Setting Ventilator Respiratory Rate 26 Setting Ventilator Respiratory Rate 26 Setting Ventilator Respiratory Rate 26 Setting Ventilator Respiratory Rate 26 Setting Ventilator Respiratory Rate 26 Setting Ventilator Respiratory Rate 26 Setting Ventilator Respiratory Rate 26 Setting Ventilator Respiratory Rate 26 Setting Actual Respiratory Rate 26 Actual Respiratory Rate 26 Actual Respiratory Rate 29 Actual Respiratory Rate 31 Actual Respiratory Rate 29 Actual Respiratory Rate 30 Actual Respiratory Rate 31 Actual Respiratory Rate 29 Actual Respiratory Rate 31 Actual Respiratory Rate 27 Positive End Expiratory 5 Pressure Positive End Expiratory 5 Pressure Positive End Expiratory 5 Pressure Positive End Expiratory 5 Pressure Positive End Expiratory 5 Pressure Positive End Expiratory 5 Pressure Positive End Expiratory 5 Pressure Positive End Expiratory 5 Pressure Positive End Expiratory 5 Pressure Positive End Expiratory 5 Pressure Positive End Expiratory 5 Pressure Peak Inspiratory Airway 29 Pressure Peak Inspiratory Airway 30 Pressure Peak Inspiratory Airway 31 Pressure Peak Inspiratory Airway 31 Pressure Peak Inspiratory Airway 32 Pressure Peak Inspiratory Airway 32 Pressure Peak Inspiratory Airway 24 Pressure Peak Inspiratory Airway 24 Pressure Peak Inspiratory Airway 28 Pressure Peak Inspiratory Airway 28 Pressure Results - Laboratory Findings CBC and BMP: 02/07/19 03:20 02/07/19 03:20 ABG ABG pH 7.38 pH Units (7.32-7.45) 02/07/19 04:09 ABG pCO2 37 mmHg (35-45) 02/07/19 04:09 ABG pO2 67 mmHg (85-104) L 02/07/19 04:09 ABG O2 Saturation 93 % (95-98) L 02/07/19 04:09 PT/INR, D-dimer PT 14.3 Seconds (9.4-12.1) H 02/04/19 03:10 Abnormal lab findings: Abnormal lab results WBC 12.9 K/mcL (4.3-11.1) H 02/06/19 03:40 RBC 5.57 M/mcL (4.19-5.50) H 02/02/19 03:15 Hgb 12.7 g/dL (12.9-16.9) L 02/07/19 03:20 MCH 27.0 pg (28.0-33.3) L 02/07/19 03:20 MCHC 30.6 g/dL (31.6-35.5) L 02/06/19 03:40 RDW 20.2 % (11.5-14.5) H 02/07/19 03:20 Plt Count 71 K/mcL (140-400) L 02/07/19 03:20 Immature Gran % 6.4 % (0-4) H 02/06/19 03:40 Neutrophils # 10.6 K/mcL (1.6-8.9) H 02/06/19 03:40 Lymphocytes # 0.5 K/mcL (0.6-4.6) L 02/02/19 03:15 Monocytes # 1.4 K/mcL (0.0-1.3) H 02/04/19 03:10 Nucleated RBCs/100 WBC 0.3 /100 WBC (0) H 02/07/19 03:20 Platelet Estimate Decreased (Normal) L 02/07/19 03:20 Immature Plt Fraction 19.4 % (1.1-6.1) H 02/05/19 03:10 Polychromasia 1+ (Not Present) A 02/03/19 04:15 PT 14.3 Seconds (9.4-12.1) H 02/04/19 03:10 APTT 46.1 Seconds (26.0-36.0) H 02/01/19 05:06 Heparin Anti-Xa, Unfract 0.29 IU/mL (0.30-0.70) L 02/03/19 11:00 ABG pH 7.26 pH Units (7.32-7.45) L 02/06/19 05:22 ABG pCO2 46 mmHg (35-45) H 02/05/19 05:25 ABG pO2 67 mmHg (85-104) L 02/07/19 04:09 ABG HCO3 19 mEq/L (21-27) L 02/06/19 05:22 ABG Total CO2 27 mEq/L (20-26) H 02/01/19 04:58 ABG O2 Saturation 93 % (95-98) L 02/07/19 04:09 ABG Base Excess -3 mEq/L (-2 to 3) L 02/07/19 04:09 VBG pCO2 32 mmHg (41-51) L 02/01/19 17:38 VBG pO2 209 mmHg (25-50) H 02/01/19 17:38 VBG HCO3 19 mEq/L (21-27) L 02/01/19 17:38 VBG Hematocrit 57.0 % (37.5-50.1) H 02/01/19 17:38 VBG Lactic Acid 3.7 mmol/L (0.5-2.2) H 02/01/19 17:38 Venous Sodium 134 mEq/L (135-145) L 02/01/19 17:38 Sodium 134 mEq/L (136-145) L 02/05/19 03:10 Potassium 5.2 mEq/L (3.5-5.1) H 02/01/19 02:25 Chloride 94 mEq/L (98-107) L 02/01/19 02:25 Carbon Dioxide 18 mEq/L (23-29) L 02/06/19 03:40 BUN 23 mg/dL (6-20) H 02/07/19 03:20 Creatinine 1.86 mg/dL (0.70-1.30) H 02/07/19 03:20 Est GFR ( Amer) 47 (> 60) L 02/07/19 03:20 Est GFR (Non-Af Amer) 39 (> 60) L 02/07/19 03:20 Glucose 184 mg/dL (70-105) H 02/07/19 03:20 Whole Bld Glucose 141 mg/dl (65-95) H 02/01/19 17:38 POC Glucose 159 mg/dL (70-99) H 02/06/19 22:50 Calculated Osmolality 303 (280-300) H 02/01/19 02:25 Calcium 10.4 mg/dL (8.6-10.3) H 01/31/19 19:23 Venous Ioniz Calcium 0.86 mmol/L (1.15-1.35) L 02/02/19 05:46 Phosphorus 1.9 mg/dL (2.7-4.5) L 02/07/19 03:20 Total Bilirubin 4.3 mg/dL (0.3-1.0) H 02/03/19 04:00 Direct Bilirubin 0.5 mg/dL (0.0-0.2) H 01/31/19 19:23 Alkaline Phosphatase 158 Units/L (34-104) H 02/03/19 04:00 Creatine Kinase 323 Units/L (30-223) H 02/07/19 03:20 Troponin I 0.12 ng/mL (< 0.04) H* 02/01/19 02:25 Serum Total Protein 5.9 g/dL (6.4-8.9) L 02/03/19 04:00 Albumin 2.9 g/dL (3.5-5.7) L 02/03/19 04:00 Albumin/Globulin Ratio 1.0 (1.1-2.2) L 02/03/19 04:00 Lipase 4 Units/L (11-82) L 02/01/19 02:25 Vancomycin Trough 15 mcg/mL (5-10) H 02/06/19 04:58 Hep Bs Antibody < 3.10 mIU/mL (10.00-) L 02/01/19 13:25 Staph aureus (PCR) DETECTED (Not Detect) A 02/03/19 08:37 mecA-Methicil Res Gene DETECTED (Not Detect) A 02/03/19 08:37 - Microbiology Findings Microbiology Findings: Microbiology, Last 48 Hours 02/06/19 04:04 Blood Culture - Preliminary Peripheral Venipuncture Gram Positive Cocci 02/03/19 07:41 Blood Culture - Final Central Venous Catheter Methicillin Resistant S.aureus 02/03/19 08:37 Blood Culture - Final Peripheral Venipuncture Methicillin Resistant S.aureus 02/06/19 03:57 Blood Culture - Preliminary Peripheral Venipuncture Culture is incubating and being continuously monitored for growth. Final report to follow. - Clinical Findings Intake & Output: Intake & Output 02/06/19 02/06/19 02/07/19 15:59 23:59 07:59 Intake Total 620 / 1381.8 228.3 / 1381.8 240.8 / 240.8 Output Total 487 / 1364 855 / 1364 456 / 456 Balance 133 / 17.8 -626.7 / 17.8 -215.2 / -215.2 Weight 125.5 kg 125.5 kg 124.75 kg Consult Discharge Plan - Plan Referrals: NONE,PCP [Primary Care Provider] - <Dariel Greenfield - Last Filed: 02/07/19 16:47> Date of Encounter: 02/07/19 Objective PUL Vital signs: Last Vital Signs Temp 98.9 F 02/07/19 11:00 Pulse 111 02/07/19 13:00 Resp 26 02/07/19 13:00 BP 103/50 02/07/19 13:00 Pulse Ox 96 02/07/19 13:00 Ventilator Settings Ventilator Settings: Ventilator Settings, Last 8 Hours Ventilator Tidal Volume 550 Setting Ventilator Tidal Volume 550 Setting Ventilator Tidal Volume 550 Setting Ventilator Tidal Volume 550 Setting Ventilator Tidal Volume 550 Setting Ventilator Respiratory Rate 26 Setting Ventilator Respiratory Rate 26 Setting Ventilator Respiratory Rate 26 Setting Ventilator Respiratory Rate 28 Setting Ventilator Respiratory Rate 26 Setting Actual Respiratory Rate 26 Actual Respiratory Rate 26 Actual Respiratory Rate 26 Actual Respiratory Rate 26 Actual Respiratory Rate 26 Positive End Expiratory 5 Pressure Positive End Expiratory 5 Pressure Positive End Expiratory 5 Pressure Positive End Expiratory 5 Pressure Positive End Expiratory 5 Pressure Peak Inspiratory Airway 27 Pressure Peak Inspiratory Airway 27 Pressure Peak Inspiratory Airway 29 Pressure Peak Inspiratory Airway 28 Pressure Peak Inspiratory Airway 29 Pressure Results - Laboratory Findings CBC and BMP: 02/07/19 03:20 02/07/19 03:20 ABG ABG pH 7.38 pH Units (7.32-7.45) 02/07/19 04:09 ABG pCO2 37 mmHg (35-45) 02/07/19 04:09 ABG pO2 67 mmHg (85-104) L 02/07/19 04:09 ABG O2 Saturation 93 % (95-98) L 02/07/19 04:09 PT/INR, D-dimer PT 14.3 Seconds (9.4-12.1) H 02/04/19 03:10 Abnormal lab findings: Abnormal lab results WBC 12.9 K/mcL (4.3-11.1) H 02/06/19 03:40 RBC 5.57 M/mcL (4.19-5.50) H 02/02/19 03:15 Hgb 12.7 g/dL (12.9-16.9) L 02/07/19 03:20 MCH 27.0 pg (28.0-33.3) L 02/07/19 03:20 MCHC 30.6 g/dL (31.6-35.5) L 02/06/19 03:40 RDW 20.2 % (11.5-14.5) H 02/07/19 03:20 Plt Count 71 K/mcL (140-400) L 02/07/19 03:20 Immature Gran % 6.4 % (0-4) H 02/06/19 03:40 Neutrophils # 10.6 K/mcL (1.6-8.9) H 02/06/19 03:40 Lymphocytes # 0.5 K/mcL (0.6-4.6) L 02/02/19 03:15 Monocytes # 1.4 K/mcL (0.0-1.3) H 02/04/19 03:10 Nucleated RBCs/100 WBC 0.3 /100 WBC (0) H 02/07/19 03:20 Platelet Estimate Decreased (Normal) L 02/07/19 03:20 Immature Plt Fraction 19.4 % (1.1-6.1) H 02/05/19 03:10 Polychromasia 1+ (Not Present) A 02/03/19 04:15 PT 14.3 Seconds (9.4-12.1) H 02/04/19 03:10 APTT 46.1 Seconds (26.0-36.0) H 02/01/19 05:06 Heparin Anti-Xa, Unfract 0.29 IU/mL (0.30-0.70) L 02/03/19 11:00 ABG pH 7.26 pH Units (7.32-7.45) L 02/06/19 05:22 ABG pCO2 46 mmHg (35-45) H 02/05/19 05:25 ABG pO2 67 mmHg (85-104) L 02/07/19 04:09 ABG HCO3 19 mEq/L (21-27) L 02/06/19 05:22 ABG Total CO2 27 mEq/L (20-26) H 02/01/19 04:58 ABG O2 Saturation 93 % (95-98) L 02/07/19 04:09 ABG Base Excess -3 mEq/L (-2 to 3) L 02/07/19 04:09 VBG pCO2 32 mmHg (41-51) L 02/01/19 17:38 VBG pO2 209 mmHg (25-50) H 02/01/19 17:38 VBG HCO3 19 mEq/L (21-27) L 02/01/19 17:38 VBG Hematocrit 57.0 % (37.5-50.1) H 02/01/19 17:38 VBG Lactic Acid 3.7 mmol/L (0.5-2.2) H 02/01/19 17:38 Venous Sodium 134 mEq/L (135-145) L 02/01/19 17:38 Sodium 134 mEq/L (136-145) L 02/05/19 03:10 Potassium 5.2 mEq/L (3.5-5.1) H 02/01/19 02:25 Chloride 94 mEq/L (98-107) L 02/01/19 02:25 Carbon Dioxide 18 mEq/L (23-29) L 02/06/19 03:40 BUN 23 mg/dL (6-20) H 02/07/19 03:20 Creatinine 1.86 mg/dL (0.70-1.30) H 02/07/19 03:20 Est GFR ( Amer) 47 (> 60) L 02/07/19 03:20 Est GFR (Non-Af Amer) 39 (> 60) L 02/07/19 03:20 Glucose 184 mg/dL (70-105) H 02/07/19 03:20 Whole Bld Glucose 141 mg/dl (65-95) H 02/01/19 17:38 POC Glucose 159 mg/dL (70-99) H 02/06/19 22:50 Calculated Osmolality 303 (280-300) H 02/01/19 02:25 Calcium 10.4 mg/dL (8.6-10.3) H 01/31/19 19:23 Venous Ioniz Calcium 0.86 mmol/L (1.15-1.35) L 02/02/19 05:46 Phosphorus 1.9 mg/dL (2.7-4.5) L 02/07/19 03:20 Total Bilirubin 4.3 mg/dL (0.3-1.0) H 02/03/19 04:00 Direct Bilirubin 0.5 mg/dL (0.0-0.2) H 01/31/19 19:23 Alkaline Phosphatase 158 Units/L (34-104) H 02/03/19 04:00 Creatine Kinase 323 Units/L (30-223) H 02/07/19 03:20 Troponin I 0.12 ng/mL (< 0.04) H* 02/01/19 02:25 Serum Total Protein 5.9 g/dL (6.4-8.9) L 02/03/19 04:00 Albumin 2.9 g/dL (3.5-5.7) L 02/03/19 04:00 Albumin/Globulin Ratio 1.0 (1.1-2.2) L 02/03/19 04:00 Lipase 4 Units/L (11-82) L 02/01/19 02:25 Vancomycin Trough 15 mcg/mL (5-10) H 02/06/19 04:58 Hep Bs Antibody < 3.10 mIU/mL (10.00-) L 02/01/19 13:25 Staph aureus (PCR) DETECTED (Not Detect) A 02/03/19 08:37 mecA-Methicil Res Gene DETECTED (Not Detect) A 02/03/19 08:37 - Microbiology Findings Microbiology Findings: Microbiology, Last 48 Hours 02/07/19 10:08 Blood Culture - Preliminary Central Venous Catheter Culture is incubating and being continuously monitored for growth. Final report to follow. 02/07/19 10:08 Blood Culture - Preliminary Central Venous Catheter Culture is incubating and being continuously m onitored for growth. Final report to follow. 02/06/19 03:57 Blood Culture - Preliminary Peripheral Venipuncture Gram Positive Cocci 02/06/19 04:04 Blood Culture - Preliminary Peripheral Venipuncture Gram Positive Cocci 02/03/19 07:41 Blood Culture - Final Central Venous Catheter Methicillin Resistant S.aureus 02/03/19 08:37 Blood Culture - Final Peripheral Venipuncture Methicillin Resistant S.aureus - Clinical Findings Intake & Output: Intake & Output 02/07/19 02/07/19 02/07/19 07:59 15:59 23:59 Intake Total 291.0 / 683.0 392 / 683.0 Output Total 456 / 757 301 / 757 Balance -165.0 / -74.0 91 / -74.0 Weight 124.75 kg 124.75 kg - Attending Attestation I examined this patient and my medical decision-making was reviewed with the Resident Physician. I agree with the documented findings, disposition and treatment plan as described except to the extent set forth below. Patient seen and examined. Labs, radiology, chart personally reviewed. Agree with resident's history and physical, assessment, plan with following comments: [employer]: Patient does not follows commands, patient has been off sedation for about 24 hours and he has no purposeful movements and discussed with the neurologist with prognosis is poor. Pulmonary: Acceptable oxygenation and ventilation, however patient is not stable for spontaneous breathing trial and subsequently patient was extubated for comfort. Patient still breathing over the ventilator and no evidence of brain . Cardiovascular: Patient remained in septic shock and tolerating sleep effect with weaning off as much as possible. GI: Nutrition per dietary and GI prophylaxis per routine Heme: DVT prophylaxis per routine ID: Patient's disease follow-up Renal; renal replacement therapy was stopped after his CODE STATUS was changed to comfort care Endorcine: blood glucose is monitored Lines: all lines checked and no evidence of infections Skin: skin care to prevent pressure ulcers per nursing routine care Dispo: ICU for now Code: DNR comfort care. Prognosis. Very poor and expected patient to I spent 33 min of Critical Care time with this patient. It involved decision making of high complexity to assess, manipulate, and support vital organ system failure and/or to prevent further life threatening deterioration of the patient's condition. The time involved in the performance of separately re portable procedures was not counted toward critical care time.
[2019-02-07] MEDS: Chlorhexidine Rinse 15 ML MOUTHWASH MM SCH (07:51)
[2019-02-07] MEDS: Nicotine 21 MG PATCH.TD24 TD SCH (07:51)
[2019-02-07] MEDS: Pantoprazole 40 MG VIAL IVP SCH (08:11)
[2019-02-07] MEDS: *HR* Amiodarone 200 MG TABLET PO SCH (08:11)
[2019-02-07] MEDS ORDERED: *HR* Heparin 5,000 UNIT/ML VIAL ONE (08:21)
--- NOTE | 2019-02-07 09:19 | Infectious Disease Progress No ---
ID Progress Note Date of Encounter: 02/07/19 Time of Encounter: 09:17 - Subjective Subjective: Patient seen and examined. No acute events noted overnight. Patient remains intubated on the ventilator. Not currently on any sedation and is unresponsive. Not currently on tube feeds due to absent bowel sounds. Remains on CRRT. Currently on Levophed to maintain MAP. - Objective CBC & Chem 7: 02/07/19 03:20 02/07/19 03:20 - Line Documentation Line Documentation: Dialysis Catheter (Right femoral), Green Catheter (No urine output), Triple Lumen Central Line (Right femoral) - Exam Vitals: Temp Pulse Resp BP Pulse Ox 98.1 F 102 26 94/65 97 02/07/19 07:00 02/07/19 09:00 02/07/19 09:00 02/07/19 09:00 02/07/19 09:00 Exam: Head: Atraumatic, normal inspection, normocephalic. Eye: No scleral icterus noted. Conjunctival injection noted bilaterally. No subconjunctival hemorrhage noted. ENT: Mucous membranes dry. No odontogenic infection noted. Neck: Normal inspection, no meningismus. Respiratory: Clear to auscultation. No rales, respiratory distress, rhonchi, or wheezes noted. Cardiovascular: Irregular rhythm, tachycardic, S1 and S2 audible. No murmurs, rubs, or gallops. GI: Soft, obese, bowel sounds absent. OG-tube to low intermittent wall suction. Rectal tube with liquid brown stool. Green catheter with scant yellow urine. Extremities: 2+ edema noted to all extremities. AV graft noted to the left forearm without erythema, warmth, or drainage. 2 scabbed regions noted. Neurological: Unresponsive, no sedation. Does not withdraw from pain. GCS 3. Skin: Dry, intact, warm. Normal color. No rashes. No endocarditis stigmata noted. - Assessment and Plan (1) Septic shock Status: Acute The patient had four SIRS criteria plus acute metabolic encephalopathy, acute respiratory failure, and hypotension requiring vasopressors. Likely secondary to MRSA bacteremia. WBC improved. Continues to have intermittent tachycardia. Still requiring vasopressors. Blood cultures drawn 01/31/19 are positive 2/2 for MRSA. Repeat blood cultures drawn 02/01/19 are positive 2/2. Repeat blood cultures drawn 02/03/19 (1 central and 1 peripheral) are positive 2/2. Repeat blood cultures drawn 02/06/19 are positive 2/2 sets. SNOMED Code(s): 90604379 (2) MRSA bacteremia Status: Acute Causative organism: MRSA. Source: Unclear. AV graft vs. other. Blood cultures drawn 01/31/19 are positive 2/2 for MRSA. Repeat blood cultures drawn 02/01/19 are positive 2/2. Repeat blood cultures drawn 02/03/19 (1 central and 1 peripheral) are positive 2/2. Repeat blood cultures drawn 02/06/19 are positive 2/2 sets. Left FA graft UTS showed evidence for clot in the fistula in the medial aspect of the arm with some surrounding fluid. Repeat CT head shows new acute lacunar infarcts --> ? septic emboli TTE and QUIQUE negative for vegetations. Repeat CT chest, abdomen and pelvis non-revealing for obvious source of persistent bacteremia. CT bilateral feet non-revealing for source of persistent bacteremia. The patient does not have any hardware, but does have a graft in the left forearm. Currently on Vanc and Daptomycin. SNOMED Code(s): 59897747967101963 (3) Diabetic foot ulcer Status: Acute CT of the bilateral feet negative for acute infectious abnormality. Podiatry consulted and following. Qualifiers: Diabetic foot ulcer location: heel Diabetes mellitus type: type 2 Laterality: right Non-pressure ulcer stage: unspecified non-pressure ulcer stage Qualified Code(s): E11.621 - Type 2 diabetes mellitus with foot ulcer; L97.419 - Non-pressure chronic ulcer of right heel and midfoot with unspecified severity SNOMED Code(s): 777316387 (4) Lacunar infarct, acute Status: Acute Noted on CT head 02/06/19 . New from recent imaging. ?septic emboli Sedation turned off, but patient unresponsive at this point. Neurology consulted. EEG in progress. Repeat CT head 02/07/19 shows evolving infarcts. SNOMED Code(s): 372377090 (5) Acute and chronic respiratory failure Status: Acute Remains on the ventilator. Management per the primary and pulmonary teams. Qualifiers: SNOMED Code(s): 22568327 (6) Acute metabolic encephalopathy Status: Acute SNOMED Code(s): 26768425, 801481858 (7) Rhabdomyolysis Status: Resolved Qualifiers: Rhabdomyolysis type: non-traumatic Qualified Code(s): M62.82 - Rhabdomyolysis SNOMED Code(s): 460738301 (8) Thrombocytopenia Status: Acute Likely secondary to septic shock. Improved. SNOMED Code(s): 130933344 (9) Atrial fibrillation Status: Chronic rate controlled on amiodarone Qualifiers: Atrial fibrillation type: chronic SNOMED Code(s): 02796774 (10) CHF (congestive heart failure) Status: Chronic No AICD. TTE showed EF 20-25%. Qualifiers: SNOMED Code(s): 15109892 (11) COPD (chronic obstructive pulmonary disease) Status: Chronic Qualifiers: COPD type: unspecified COPD Qualified Code(s): J44.9 - Chronic obstructive pulmonary disease, unspecified SNOMED Code(s): 15492755 (12) Diabetes mellitus Status: Chronic Qualifiers: Diabetes mellitus type: type 2 Diabetes mellitus watermaster insulin use: unspecified intermediate insulin use status Diabetes mellitus complication status: with kidney complications Diabetes mellitus complication detail: with chronic kidney disease Chronic kidney disease stage: on chronic dialysis Qualified Code(s): E11.22 - Type 2 diabetes mellitus with diabetic chronic kidne y disease; N18.6 - End stage renal disease; Z99.2 - Dependence on renal dialysis SNOMED Code(s): 17897830 (13) End stage renal disease on dialysis Status: Chronic Due to long standing DM 2. Has graft L forearm that is not functional. U/S LT ext: Evidence for clot in the fistula in the medial aspect of the arm with some surrounding fluid. No color flow seen within the fistula. Per family, he was having dialysis via fistula until admission. Currently on CRRT. Nephrology consulted and following. SNOMED Code(s): 666722756 (14) Hyperlipidemia Status: Chronic Qualifiers: Hyperlipidemia type: unspecified Qualified Code(s): E78.5 - Hyperlipidemia, unspecified SNOMED Code(s): 51633268 (15) Obesity (BMI 30-39.9) Status: Chronic SNOMED Code(s): 789537516, 390578073 (16) Tobacco abuse Status: Chronic SNOMED Code(s): 672428877 (17) Clotted renal dialysis AV graft Status: Acute Concern for possible source of persistent bacteremia. UTS shows a clot in the graft, but no obvious source of infection. Vascular surgery consulted. Qualifiers: Encounter type: initial encounter Qualified Code(s): T82.868A - Thrombosis due to vascular prosthetic devices, implants and grafts, initial encounter SNOMED Code(s): 394918586, 194695421 (18) Pneumonia Status: Acute CXR 02/07/19 shows multifocal infiltrates worse in the GOOD and improved RUL. Edema vs. PNA. No output from the ET tube. Causative organism: Unclear. MRSA vs. other. Currently on Zosyn and Vanc. Qualifiers: Pneumonia type: due to methicillin-resistant Staphylococcus aureus (MRSA) SNOMED Code(s): 910756280 - Recommendations Recommendations: Repeat blood cultures x 2 sets. Agree with moving the patient's central line and TDC from the femoral area if possible. Goals of care per the palliative care team. Await further recommendations from the neurology team. Continue Vancomycin IV. Pharmacy to dose. Goal trough ~15. Discontinue daptomycin given the presence of brain infarcts and its poor CSF pen etration. Start Zyvox 600mg IV Q12H. Duration of treatment depends on the clinical picture. Monitor labs and for drug toxicity and dose-adjust antibiotics. Contact precautions per hospital policy. Consult Discharge Plan - Plan Referrals: NONE,PCP [Primary Care Provider] - - Attending Attestation I have personally performed a face to face evaluation on this patient. I have reviewed and agree with the care plan. History and Exam by me shows: Assessment and plan: Septic shock MRSA bacteremia source not clear concern for infected dialysis graft left forearm Metabolic encephalopathy Multiple acute lacunar infarcts Acute on chronic respiratory failure Rhabdomyolysis Diabetes mellitus poorly controlled CHF ejection fraction around 20 COPD Recommendations: Prognosis very poor. EEG shows slow weeks. Family is discussing withdrawing support. In the meantime continue current antibiotics until cultures finalize or family makes a final decision
--- NOTE | 2019-02-07 09:35 | Internal Med Progress Note ---
Hospitalist Progress Note - Encounter Date of Encounter: 02/07/19 Time of Encounter: 08:00 - Subjective Interval History: Patient case discussed in collaboration with Dr. Greenfield, primary nurse, respiratory therapy, and Dr. Salazar. I then saw and examined patient independently as well. We also discussed with neurology, Dr. Gant. Patient does have some primitive reflexes this morning with a subtle corneal reflex and questionable gag reflex. He has been off sedation for over [address] of the head imaging is pending today. EEG is pending as well. There have been ongoing discussions with POA/family regarding likelihood of anoxic brain injury and septic emboli to his brain. Pending further neurologic findings, family may pursue palliative care. However, that remains to be determined. - Exam Vitals: Temp Pulse Resp BP Pulse Ox 98.1 F 102 26 94/65 97 02/07/19 07:00 02/07/19 09:00 02/07/19 09:00 02/07/19 09:00 02/07/19 09:00 Exam: General: off sedation; no purposeful activity; sluggish corneal reflex; gag reflex not appreciated HEENT: ETT and NG in place Chest: Coarse breath sounds; scattered rhonchi; diminished breath sounds in bases; few crackles Abdomen: absent bowel sounds; mildly distended; no palpable masses Ext: 2-3+ edema with redness and sores along his feet Neuro: other than sluggish corneal reflex, I do not appreciate any neurologic activity Skin: warm and dry (under warming blanket) - Assessment and Plan (1) Septic shock Current Visit: Yes Status: Acute Assessment and Plan: 1. Continue antibiotics per ID. 2. Daily blood cultures. 3. Discussed with vascular surgery yesterday. 4. Still requiring low dose Levophed. 5. Vent support measures per Dr. Greenfield. (2) Atrial fibrillation with RVR Current Visit: Yes Status: Acute Assessment and Plan: 1. Currently rate controlled. 2. NO AC due to thrombocytopenia and risk of bleeding. 3. Continue Amiodarone. (3) MRSA bacteremia Current Visit: Yes Status: Acute Assessment and Plan: 1. Repeat blood cultures today. 2. Serial + blood cultures noted. 3. Vascular shunt surgery likely to be of no benefit. (4) End-stage renal disease needing dialysis Current Visit: No Status: Acute Assessment and Plan: 1. Dialysis per nephrology. 2. Careful fluid balance per CRRT and need for pressor support. (5) Thrombocytopenia Current Visit: Yes Status: Acute Assessment and Plan: 1. No active signs of bleeding. 2. Monitor platelets daily. 3. Likely exacerbated from sepsis. (6) Anoxic brain injury Current Visit: Yes Status: Suspected Assessment and Plan: 1. Off sedation for > 24 hours. 2. Neurology following. 3. EEG and Head CT today. (7) DVT prophylaxis Current Visit: Yes Status: Acute Assessment and Plan: 1. Heparin SQ. 2. EPCD's. - Time Spent with Patient Total time spent is greater than 50% in coordination of care (as documented) at patient's floor/unit and/or counseling patient: 25 - 35 minutes Plan of Care Discussed with: other (Dr. Greenfield, RN, RT, Neurology) Internal Medicine: Result - Labs CBC & Chem 7: 02/07/19 03:20 02/07/19 03:20 Labs: Short CBC 02/07/19 Range/Units 03:20 WBC 10.1 (4.3-11.1) K/mcL Hgb 12.7 L (12.9-16.9) g/dL Hct 40.1 (37.5-50.1) % Plt Count 71 L (140-400) K/mcL Neutrophils # 8.2 (1.6-8.9) K/mcL BMP 02/07/19 03:20 Sodium 136 Potassium 3.8 Chloride 103 Carbon Dioxide 23 BUN 23 H Creatinine 1.86 H Glucose 184 H Calcium 9.9 - ABG Interpretation ABG results: ABG ABG pH 7.38 pH Units (7.32-7.45) 02/07/19 04:09 ABG pCO2 37 mmHg (35-45) 02/07/19 04:09 ABG pO2 67 mmHg (85-104) L 02/07/19 04:09 ABG O2 Saturation 93 % (95-98) L 02/07/19 04:09 PT/INR, D-dimer PT 14.3 Seconds (9.4-12.1) H 02/04/19 03:10 - Impressions Impressions Abdomen/Pelvis CT 02/06/19 08:33 IMPRESSION: Study limited by motion and lack of IV contrast. ET tube and NG tube have been placed and appear to be in expected position. Small amount of air within the right anterior chest likely from attempted placement of vascular catheter. Interval placement of right dialysis catheter which appears to be in expected position from right femoral approach. Right-sided femoral line appear stable. Dependent consolidation of the lung bases most compatible with atelectasis. Superimposed pneumonia cannot be excluded but felt less likely. Mild degree of ascites slightly increased from the comparison. Mild stranding along the colon is felt to be related to underlying increase in abdominal fluid. Underlying mild infection, colitis cannot be excluded. Green catheter is in place. Faint increased density in the left renal collecting system which may represent small stones, debris or possible hemorrhage. Please correlate with patient's urinalysis. D/ / 02/06/2019 09:48:37 Dar Love MD / [facility] Interpreting Provider: Dar Love MD Chest CT 02/06/19 08:33 IMPRESSION: Study limited by motion and lack of IV contrast. ET tube and NG tube have been placed and appear to be in expected position. Small amount of air within the right anterior chest likely from attempted placement of vascular catheter. Interval placement of right dialysis catheter which appears to be in expected position from right femoral approach. Right-sided femoral line appear stable. Dependent consolidation of the lung bases most compatible with atelectasis. Superimposed pneumonia cannot be excluded but felt less likely. Mild degree of ascites slightly increased from the comparison. Mild stranding along the colon is felt to be related to underlying increase in abdominal fluid. Underlying mild infection, colitis cannot be excluded. Green catheter is in place. Faint increased density in the left renal collecting system which may represent small stones, debris or possible hemorrhage. Please correlate with patient's urinalysis. D/ / 02/06/2019 09:48:37 Dar Love MD / [facility] Interpreting Provider: Dar Love MD Foot CT 02/06/19 08:35 IMPRESSION: 1. Erosive changes/irregularity as detailed above with a midfoot predominance. Differential considerations include Charcot/neuropathic changes, gout, or inflammatory arthropathy. 2. Moderate to severe cellulitis of the left ankle and left foot. No discrete organized fluid collection evident. Suspected mild myositis of the intertarsal musculature with mild to moderate fatty degeneration. 3. No acute fracture identified. No aggressive osseous destruction. 4. Moderate plantar calcaneal spur. D/ / 02/06/2019 09:37:02 Chaim Dumont MD / [facility] Interpreting Provider: Chaim Dumont MD Foot CT 02/06/19 08:35 IMPRESSION: 1. Abnormal morphology of the midfoot with areas of bony destruction, erosive change, and large tibiotalar and midfoot joint effusion. 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 Infection is considered less likely unless there is an open wound or ulcer. 2. Extensive soft tissue edema. Peroneal and posterior tibialis tenosynovitis. No discrete fluid collection on the noncontrast CT. No wound or ulcer. 3. Remote fracture of the proximal phalanx 1st digit without bony union. D/ : / 02/06/2019 09:35:18 Cisco Aponte MD / [facility] Interpreting Provider: Cisco Aponte MD Head CT 02/07/19 07:22 IMPRESSION: No hemorrhage or mass. Scattered hypodense foci throughout the frontal and parietal white matter, similar to most recent study, but new when compared to 01/31/2019 suggesting evolving recent infarcts Paranasal sinus disease and fluid in the mastoids D/ / Graham Duff MD / Graham Duff MD Interpreting Provider: Graham Duff MD Chest X-Ray 02/07/19 08:21 IMPRESSION: Multifocal infiltrates are identified in the lungs, worsened in the left upper lobe and mildly improved in the right upper lobe. There also cardiomegaly with vascular congestion and suggestion of diffuse increased interstitial markings suggestive of underlying pulmonary edema as well. D/ / Branden Robbins MD / Branden Robbins MD Interpreting Provider: Branden Robbins MD Consult Discharge Plan - Plan Referrals: NONE,PCP [Primary Care Provider] -
--- NOTE | 2019-02-07 10:48 | Palliative Progress Note ---
Date of Encounter: 02/07/19 Time of Encounter: 10:30 - Assessment and plan (1) Generalized pain Current Visit: Yes Status: Acute Assessment and plan: Will restarted Fentanyl drip and titrate as needed for comfort. (2) Anxiety Current Visit: Yes Status: Acute Assessment and plan: Lorazepam 2mg prior to extubation and every 2 hours PRN thereafter (3) Congestion of upper airway Current Visit: Yes Status: Acute Assessment and plan: Glyccopyrolate 0.4mg IV prior to extubation. Will have Atropine drops SL PRN hourly if needed. (4) Advanced care planning/counseling discussion Current Visit: Yes Status: Acute Assessment and plan: Met with multiple family members including son Richar (POA), Yogesh, patient 2 sisters, mother, uncle regarding update on clinical status and goals of care. This involved 2 different 30 min meetings today involving myself, Rev Jeanette Bradshaw, primary nurse Rufino. Neurology has also been by to discuss CT/EEG finding with family. From initial meeting today, family was agreeable to transition patient to DNRCC-Arrest, and not escalating any care, however, desired other family member, (pt sister) to arrive from [place]. I revisited after [place] sister arrived and rediscussed clinical status. Aus tin desires to have patient compassionately extubated and transition to comfort care. All family members present in agreement as well. Educated family on process of this transition, and prepared them that he may pass soon after he is liberated from machines. Provided emotional support. Patient's uncle prayed with family. Code status changed to DNRCC and ordered medications for symptom management of pain/dyspnea. Will monitor and adjust as needed. Total amount of ACP time: 60 min (5) Palliative care encounter Current Visit: Yes Status: Acute (6) Nonischemic cardiomyopathy Current Visit: Yes Status: Chronic (7) End stage renal disease on dialysis Current Visit: Yes Status: Chronic (8) Acute respiratory failure Current Visit: Yes Status: Acute Qualifiers: Respiratory failure complication: unspecified whether with hypoxia or hypercapnia Qualified Code(s): J96.00 - Acute respiratory failure, unspecified whether with hypoxia or hypercapnia (9) Shock Current Visit: Yes Status: Acute - Time Spent With Patient Total time spent is greater than 50% in coordination of care (as documented) at patient's floor/unit and/or counseling patient: - Subjective Interval history: Patient remains unresponsive to verbal/tactile stimuli despite off sedation greater than [address] head repeated this am continues to show evolving infarcts. EEG was pending. Blood cultures drawn on 02/06 remain positive for MRSA despite atb therapy. - Constitutional Vitals: Abnormal lab results WBC 12.9 K/mcL (4.3-11.1) H 02/06/19 03:40 RBC 5.57 M/mcL (4.19-5.50) H 02/02/19 03:15 Hgb 12.7 g/dL (12.9-16.9) L 02/07/19 03:20 MCH 27.0 pg (28.0-33.3) L 02/07/19 03:20 MCHC 30.6 g/dL (31.6-35.5) L 02/06/19 03:40 RDW 20.2 % (11.5-14.5) H 02/07/19 03:20 Plt Count 71 K/mcL (140-400) L 02/07/19 03:20 Immature Gran % 6.4 % (0-4) H 02/06/19 03:40 Neutrophils # 10.6 K/mcL (1.6-8.9) H 02/06/19 03:40 Lymphocytes # 0.5 K/mcL (0.6-4.6) L 02/02/19 03:15 Monocytes # 1.4 K/mcL (0.0-1.3) H 02/04/19 03:10 Nucleated RBCs/100 WBC 0.3 /100 WBC (0) H 02/07/19 03:20 Platelet Estimate Decreased (Normal) L 02/07/19 03:20 Immature Plt Fraction 19.4 % (1.1-6.1) H 02/05/19 03:10 Polychromasia 1+ (Not Present) A 02/03/19 04:15 PT 14.3 Seconds (9.4-12.1) H 02/04/19 03:10 APTT 46.1 Seconds (26.0-36.0) H 02/01/19 05:06 Heparin Anti-Xa, Unfract 0.29 IU/mL (0.30-0.70) L 02/03/19 11:00 ABG pH 7.26 pH Units (7.32-7.45) L 02/06/19 05:22 ABG pCO2 46 mmHg (35-45) H 02/05/19 05:25 ABG pO2 67 mmHg (85-104) L 02/07/19 04:09 ABG HCO3 19 mEq/L (21-27) L 02/06/19 05:22 ABG Total CO2 27 mEq/L (20-26) H 02/01/19 04:58 ABG O2 Saturation 93 % (95-98) L 02/07/19 04:09 ABG Base Excess -3 mEq/L (-2 to 3) L 02/07/19 04:09 VBG pCO2 32 mmHg (41-51) L 02/01/19 17:38 VBG pO2 209 mmHg (25-50) H 02/01/19 17:38 VBG HCO3 19 mEq/L (21-27) L 02/01/19 17:38 VBG Hematocrit 57.0 % (37.5-50.1) H 02/01/19 17:38 VBG Lactic Acid 3.7 mmol/L (0.5-2.2) H 02/01/19 17:38 Venous Sodium 134 mEq/L (135-145) L 02/01/19 17:38 Sodium 134 mEq/L (136-145) L 02/05/19 03:10 Potassium 5.2 mEq/L (3.5-5.1) H 02/01/19 02:25 Chloride 94 mEq/L (98-107) L 02/01/19 02:25 Carbon Dioxide 18 mEq/L (23-29) L 02/06/19 03:40 BUN 23 mg/dL (6-20) H 02/07/19 03:20 Creatinine 1.86 mg/dL (0.70-1.30) H 02/07/19 03:20 Est GFR ( Amer) 47 (> 60) L 02/07/19 03:20 Est GFR (Non-Af Amer) 39 (> 60) L 02/07/19 03:20 Glucose 184 mg/dL (70-105) H 02/07/19 03:20 Whole Bld Glucose 141 mg/dl (65-95) H 02/01/19 17:38 POC Glucose 159 mg/dL (70-99) H 02/06/19 22:50 Calculated Osmolality 303 (280-300) H 02/01/19 02:25 Calcium 10.4 mg/dL (8.6-10.3) H 01/31/19 19:23 Venous Ioniz Calcium 0.86 mmol/L (1.15-1.35) L 02/02/19 05:46 Phosphorus 1.9 mg/dL (2.7-4.5) L 02/07/19 03:20 Total Bilirubin 4.3 mg/dL (0.3-1.0) H 02/03/19 04:00 Direct Bilirubin 0.5 mg/dL (0.0-0.2) H 01/31/19 19:23 Alkaline Phosphatase 158 Units/L (34-104) H 02/03/19 04:00 Creatine Kinase 323 Units/L (30-223) H 02/07/19 03:20 Troponin I 0.12 ng/mL (< 0.04) H* 02/01/19 02:25 Serum Total Protein 5.9 g/dL (6.4-8.9) L 02/03/19 04:00 Albumin 2.9 g/dL (3.5-5.7) L 02/03/19 04:00 Albumin/Globulin Ratio 1.0 (1.1-2.2) L 02/03/19 04:00 Lipase 4 Units/L (11-82) L 02/01/19 02:25 Vancomycin Trough 15 mcg/mL (5-10) H 02/06/19 04:58 Hep Bs Antibody < 3.10 mIU/mL (10.00-) L 02/01/19 13:25 Staph aureus (PCR) DETECTED (Not Detect) A 02/03/19 08:37 mecA-Methicil Res Gene DETECTED (Not Detect) A 02/03/19 08:37 General appearance: Present: no acute distress - Respiratory Respiratory exam: Present: decreased breath sounds, CTAB - Cardiovascular Cardiovascular exam: Present: irregular rhythm, tachycardia - GI/Abdominal GI/Abdominal exam: Present: diminished bowel sounds, distended, soft - Extremities Exam Additional comments: 2-3+ edema to bilateral lower extremity edema right greater than left. - Neurological Exam Additional comments: Unresponsive to any verbal/tactile stimuli. - Skin Skin exam: Present: dry, warm Palliative Quality Palliative Quality: Screen for Code Status: Yes, Screen for Goals of Care: Yes, Screen for Pain: NA, If Pain Regimen Started, Initiate Bowel Regimen: NA, Screen for Nausea/Vomitting: NA Code Status: 02/01/19 00:46 Resuscitation Status: Active [RES] Routine Comment: Resuscitation Status: Full Code - Labs CBC & Chem 7: 02/07/19 03:20 02/07/19 03:20 Labs: Laboratory Results - last 24 hr 02/06/19 02/06/19 02/06/19 03:08 06:54 10:57 WBC RBC Hgb Hct MCV MCH MCHC RDW Plt Count MPV Immature Gran % Seg Neutrophils % Lymphocytes % Monocytes % Eosinophils % Basophils % Neutrophils # Lymphocytes # Monocytes # Eosinophils # Basophils # Nucleated RBCs/100 WBC Platelet Estimate ABG pH ABG pCO2 ABG pO2 ABG HCO3 ABG Total CO2 ABG O2 Saturation ABG Base Excess Respiration Rate O2 Delivery Device Blood Gas Modality Inspired O2 Tidal Volume PEEP Sodium Potassium Chloride Carbon Dioxide BUN Creatinine Est GFR ( Amer) Est GFR (Non-Af Amer) BUN/Creatinine Ratio Glucose POC Glucose 151 H 153 H 170 H Calculated Osmolality Calcium Phosphorus Creatine Kinase Random Vancomycin 02/06/19 02/06/19 02/06/19 14:22 19:05 22:50 WBC RBC Hgb Hct MCV MCH MCHC RDW Plt Count MPV Immature Gran % Seg Neutrophils % Lymphocytes % Monocytes % Eosinophils % Basophils % Neutrophils # Lymphocytes # Monocytes # Eosinophils # Basophils # Nucleated RBCs/100 WBC Platelet Estimate ABG pH ABG pCO2 ABG pO2 ABG HCO3 ABG Total CO2 ABG O2 Saturation ABG Base Excess Respiration Rate O2 Delivery Device Blood Gas Modality Inspired O2 Tidal Volume PEEP Sodium Potassium Chloride Carbon Dioxide BUN Creatinine Est GFR ( Amer) Est GFR (Non-Af Amer) BUN/Creatinine Ratio Glucose POC Glucose 183 H 161 H 159 H Calculated Osmolality Calcium Phosphorus Creatine Kinase Random Vancomycin 02/07/19 02/07/19 02/07/19 03:20 03:20 03:20 WBC 10.1 RBC 4.71 Hgb 12.7 L Hct 40.1 MCV 85.1 MCH 27.0 L MCHC 31.7 RDW 20.2 H Plt Count 71 L MPV TNP Immature Gran % 1.9 Seg Neutrophils % 81.1 Lymphocytes % 7.6 Monocytes % 9.2 Eosinophils % 0.0 Basophils % 0.2 Neutrophils # 8.2 Lymphocytes # 0.8 Monocytes # 0.9 Eosinophils # 0.0 Basophils # 0.0 Nucleated RBCs/100 WBC 0.3 H Platelet Estimate Decreased L ABG pH ABG pCO2 ABG pO2 ABG HCO3 ABG Total CO2 ABG O2 Saturation ABG Base Excess Respiration Rate O2 Delivery Device Blood Gas Modality Inspired O2 Tidal Volume PEEP Sodium Potassium Chloride Carbon Dioxide BUN Creatinine Est GFR ( Amer) Est GFR (Non-Af Amer) BUN/Creatinine Ratio Glucose POC Glucose Calculated Osmolality Calcium Phosphorus 1.9 L Creatine Kinase Random Vancomycin 12 02/07/19 02/07/19 03:20 04:09 WBC RBC Hgb Hct MCV MCH MCHC RDW Plt Count MPV Immature Gran % Seg Neutrophils % Lymphocytes % Monocytes % Eosinophils % Basophils % Neutrophils # Lymphocytes # Monocytes # Eosinophils # Basophils # Nucleated RBCs/100 WBC Platelet Estimate ABG pH 7.38 ABG pCO2 37 ABG pO2 67 L ABG HCO3 22 ABG Total CO2 23 ABG O2 Saturation 93 L ABG Base Excess -3 L Respiration Rate 28 O2 Delivery Device Adult Vent Blood Gas Modality ASSIST CONTROL Inspired O2 40.0 Tidal Volume 550 PEEP 5 Sodium 136 Potassium 3.8 Chloride 103 Carbon Dioxide 23 BUN 23 H Creatinine 1.86 H Est GFR ( Amer) 47 L Est GFR (Non-Af Amer) 39 L BUN/Creatinine Ratio 12 Glucose 184 H POC Glucose Calculated Osmolality 290 Calcium 9.9 Phosphorus Creatine Kinase 323 H Random Vancomycin - Impressions Impressions Abdomen/Pelvis CT 02/06/19 08:33 IMPRESSION: Study limited by motion and lack of IV contrast. ET tube and NG tube have been placed and appear to be in expected position. Small amount of air within the right anterior chest likely from attempted placement of vascular catheter. Interval placement of right dialysis catheter which appears to be in expected position from right femoral approach. Right-sided femoral line appear stable. Dependent consolidation of the lung bases most compatible with atelectasis. Superimposed pneumonia cannot be excluded but felt less likely. Mild degree of ascites slightly increased from the comparison. Mild stranding along the colon is felt to be related to underlying increase in abdominal fluid. Underlying mild infection, colitis cannot be excluded. Green catheter is in place. Faint increased density in the left renal collecting system which may represent small stones, debris or possible hemorrhage. Please correlate with patient's urinalysis. D/ / 02/06/2019 09:48:37 Dar Love MD / mitchell Interpreting Provider: Dar Love MD Chest CT 02/06/19 08:33 IMPRESSION: Study limited by motion and lack of IV contrast. ET tube and NG tube have been placed and appear to be in expected position. Small amount of air within the right anterior chest likely from attempted placement of vascular catheter. Interval placement of right dialysis catheter which appears to be in expected position from right femoral approach. Right-sided femoral line appear stable. Dependent consolidation of the lung bases most compatible with atelectasis. Superimposed pneumonia cannot be excluded but felt less likely. Mild degree of ascites slightly increased from the comparison. Mild stranding along the colon is felt to be related to underlying increase in abdominal fluid. Underlying mild infection, colitis cannot be excluded. Green catheter is in place. Faint increased density in the left renal collecting system which may represent small stones, debris or possible hemorrhage. Please correlate with patient's urinalysis. D/ / 02/06/2019 09:48:37 Dar Love MD / mitchell Interpreting Provider: Dar Love MD Foot CT 02/06/19 08:35 IMPRESSION: 1. Erosive changes/irregularity as detailed above with a midfoot predominance. Differential considerations include Charcot/neuropathic changes, gout, or inflammatory arthropathy. 2. Moderate to severe cellulitis of the left ankle and left foot. No discrete organized fluid collection evident. Suspected mild myositis of the intertarsal musculature with mild to moderate fatty degeneration. 3. No acute fracture identified. No aggressive osseous destruction. 4. Moderate plantar calcaneal spur. D/ / 02/06/2019 09:37:02 Chaim Dumont MD / dequan Interpreting Provider: Chaim Dumont MD Head CT 02/07/19 07:22 IMPRESSION: No hemorrhage or mass. Scattered hypodense foci throughout the frontal and parietal white matter, similar to most recent study, but new when compared to 01/31/2019 suggesting evolving recent infarcts Paranasal sinus disease and fluid in the mastoids D/ / Graham Duff MD / Graham Duff MD Interpreting Provider: Graham Duff MD Chest X-Ray 02/07/19 08:21 IMPRESSION: Multifocal infiltrates are identified in the lungs, worsened in the left upper lobe and mildly improved in the right upper lobe. There also cardiomegaly with vascular congestion and suggestion of diffuse increased interstitial markings suggestive of underlying pulmonary edema as well. D/ / Branden Robbins MD / Branden Robbins MD Interpreting Provider: Branden Robbins MD - ABG Interpretation ABG results: ABG ABG pH 7.38 pH Units (7.32-7.45) 02/07/19 04:09 ABG pCO2 37 mmHg (35-45) 02/07/19 04:09 ABG pO2 67 mmHg (85-104) L 02/07/19 04:09 ABG O2 Saturation 93 % (95-98) L 02/07/19 04:09 PT/INR, D-dimer PT 14.3 Seconds (9.4-12.1) H 02/04/19 03:10 Consult Discharge Plan - Plan Referrals: NONE,PCP [Primary Care Provider] -
--- NOTE | 2019-02-07 11:16 | Nephrology Progress Note ---
Date of Encounter: 02/07/19 Time of Encounter: 07:50 - Assessment and Plan (1) End stage renal disease on dialysis Status: Chronic Continue CVVHDF for clearance and primarily for fluid removal at Net+25mL/hr for his ongoing anasarca. Clearance going well with Lilly at 1500 and 1500 providing an Effluent dose of 24. BFR at 200. Unable to use citrate for regional anticoagulation d/t national shortage of IV Calcium and his thrombocytopenia is prohibitive to use a heparin drip. His SCr is lower than typical and this is entirely d/t the CVVHDF which is a continuous form of dialysis. Replete Phos prn. Right Femoral Temp HD catheter still working. He had +BCx before it's placement. I was going to recommend upgrading to an IJ temporary HD catheter on Wednesday but if he transitions into Palliative Care/Withdrawal of Care then this procedure would not be needed. I see that his mental status remains poor. He has a guarded prognosis. Discussed in detail with the ICU team and with the Palliative Care Attending. Thank you. (2) Hypophosphatemia Status: Acute (3) Altered mental status Status: Acute Qualifiers: Altered mental status type: unspecified Qualified Code(s): R41.82 - Altered mental status, unspecified (4) Bacteremia Status: Acute (5) Hypotension Status: Acute Qualifiers: Hypotension type: unspecified hypotension type Qualified Code(s): I95.9 - Hypotension, unspecified (6) Rhabdomyolysis Status: Resolved Qualifiers: Rhabdomyolysis type: non-traumatic Qualified Code(s): M62.82 - Rhabdomyolysis (7) Thrombocytopenia Status: Chronic Subjective Principal diagnosis: Septic shock Interval history: The IT SECURITY ANALYST updated me earlier today when the patient was thoroughly seen and examined. He is intubated, sedated, and not interactive, therefore limiting the subjective history. Objective - Vital Signs Vital signs: Vital Signs Temp Pulse Resp BP Pulse Ox 02/07/19 11:00 98.9 F 108 26 94/58 96 02/07/19 10:00 106 26 103/55 97 02/07/19 09:59 28 97 02/07/19 09:00 102 26 94/65 97 02/07/19 08:00 100 29 104/60 98 02/07/19 07:24 26 97 02/07/19 07:00 98.1 F 96 30 86/63 97 02/07/19 06:00 98 26 94/49 95 02/07/19 05:00 100 26 102/58 94 02/07/19 04:00 98.2 F 115 29 115/59 95 02/07/19 03:45 110 02/07/19 03:40 27 99 02/07/19 03:00 119 29 101/49 93 02/07/19 02:16 29 94 02/07/19 02:00 105 31 98/59 92 02/07/19 01:00 104 29 92/47 96 02/07/19 00:00 98.3 F 106 31 102/57 95 02/06/19 23:56 26 98 02/06/19 23:10 110 02/06/19 23:00 105 29 99/62 97 02/06/19 22:11 35 100 02/06/19 22:00 99 31 98/48 100 02/06/19 21:00 112 26 99/56 98 02/06/19 20:00 99.9 F H 115 26 110/60 97 02/06/19 19:35 26 97 02/06/19 19:15 118 02/06/19 19:00 108 26 104/50 97 02/06/19 18:00 103 26 95/47 97 02/06/19 17:40 26 97 02/06/19 17:00 110 26 94/48 97 02/06/19 16:00 109 26 109/49 95 02/06/19 15:40 26 103/52 96 02/06/19 15:00 98.7 F 106 26 89/42 97 02/06/19 14:05 31 90/49 97 02/06/19 14:00 112 26 90/49 96 02/06/19 13:00 98 31 91/45 02/06/19 12:00 106 31 95/48 97 Intake and Output 02/06/19 02/07/19 02/07/19 23:59 07:59 15:59 Intake Total 228.3 / 1381.8 291.0 / 444.0 153 / 444.0 Output Total 855 / 1364 456 / 696 240 / 696 Balance -626.7 / 17.8 -165.0 / -252.0 -87 / -252.0 Intake: IV Fluids 228.3 / 1351.8 291.0 / 444.0 153 / 444.0 PrismaSATE BGK 4/2.5 5,000 ML @ 0 / 0 1500 mls/hr CRRT [facility] Rx#: [id number] Levophed 8 MG In 0.9 % Sodium 90.3 / 207.3 91.0 / 110.0 19 / 110.0 Chloride 250 ML @ 0.5 MCG/MIN 0 .968 mls/hr IVC [facility] Rx#: [id number] Cubicin 1,000 MG In 0.9 % 100 / 100 Sodium Chloride 100 ML @ 200 mls/hr IVPB Q48H [facility] Rx#: [id number] Zosyn 3.375 GM In 0.9 % Sodium 38 / 230.5 200.0 / 200.0 Chloride (Mini-Bag +) 100 ML @ 25 mls/hr IVPB Q8H [facility] Rx#: [id number] Vancocin 1,000 MG In 0.9 % 134 / 134 Sodium Chloride 250 ML @ 167 mls/hr IVPB Q12H [facility] Rx#: [id number] Output: Rectal Tube 200 / 200 200 / 200 0 / 200 Catheter 0 / 0 0 / 0 0 / 0 Gastric Drainage 450 / 800 150 / 300 150 / 300 Fluid Removed by Prismaflex 205 / 364 106 / 196 90 / 196 Other: Weight 125.5 kg 124.75 kg 124.75 kg Blood Glucose* 161 144 156 Patient Weight 02/07/19 23:59 Weight 124.75 kg - General Appearance Exam: General appearance: Present: severe distress, chronically ill, sedated on ventilator, intubated EENT: Present: ATNC Neck: Present: supple Respiratory: Present: rales, course breath sounds Cardiology: Present: edema, regular rate, regular rhythm, normal S1, normal S2 Dialysis Vascular Access: Arteriovenous Graft (left mid arm without thrill or bruit) Additional Comments: He also has a right femoral temporary HD catheter, with a well adhered Tegaderm and no appearance of erythema Gastrointestinal: Present: normoactive bowel sounds, no guarding, obese, distended Integumentary: Present: warm and dry Neurologic: Present: obtunded Musculoskeletal: Present: no cyanosis, no clubbing - Lab 02/07/19 03:20 02/07/19 03:20 Most recent lab results 02/07/19 02/07/19 02/07/19 03:20 03:20 04:09 ABG pH 7.38 ABG pCO2 37 ABG pO2 67 L ABG HCO3 22 ABG O2 Saturation 93 L Calcium 9.9 Phosphorus 1.9 L Consult Discharge Plan - Plan Referrals: NONE,PCP [Primary Care Provider] -
--- NOTE | 2019-02-07 12:02 | Neurology Progress Note ---
<Alpesh Leong - Last Filed: 02/07/19 11:59> Date of Encounter: 02/07/19 Time of Encounter: 11:59 Assessment and Plan (1) Cerebral infarction, watershed distribution, bilateral, acute Current Visit: Yes Status: Acute Neurology c/s for recommendations regarding abnormal CT scan of the head Patient was found down and unresponsive with hypotension and acute respiratory failure. Also being treated for worsening chronic renal failure and MRSA bacteremia Appears to have had watershed infarcts on CT head yesterday CT Head completed yesterday revealing multiple scattered foci of decreased attenuation in the bilateral frontal and left parietal lobe not seen on previously seen on prior scans Today he continues to have reflexes as the level of the EMMANUEL otherwise the neurological exam is limited by his altered mental state. There are no obvious lateralizing findings Repeat CT head today shows no hemorrhage or mass. There are scattered hypodense foci throughout the frontal and parietal white matter similar to recent study yesterday but new compared to 01/31/19 study EEG is pending I suspect that he has cerebral anoxia 2/2 respiratory failure and b/l watershed infarcts 2/2 hypotension Overall the prognosis is most likely poor, especially in the setting of acute infarcts, MRSA bacteremia and multisystem organ failure Palliative care at the bedside to discuss goals of care Otherwise, c/w medical and supportive care Neurology will continue to follow (2) Abnormal CT of the head Current Visit: Yes Status: Acute (3) Encephalopathy Current Visit: Yes Status: Acute Subjective Principal diagnosis: Septic shock, acute watershed infarts Interval history: The chart was reviewed, the patient was seen at the bedside in the ICU today. He continues to be unresponsive off sedation, on mechanical ventilatory support and continued ARSLAN and blood pressure support. No improvement in condition overnight. Family is at the bedside at this time and are getting to have a discussion with the palliative care team. At this time they are unsure of what their intentions are in regards to continued care vs withdrawal of care. They report that they would like to await the finding of the EEG before deciding. Objective - Constitutional Vitals: Temp Pulse Resp BP Pulse Ox 98.9 F 108 26 94/58 96 02/07/19 11:00 02/07/19 11:00 02/07/19 11:00 02/07/19 11:00 02/07/19 11:00 Exam: Examination: General Examination: Limited by patient's altered mental state *CONSTITUTIONAL: Unresponsive, Does not arouse to tactile or noxious stimulus *GENERAL APPEARANCE OF PATIENT appears unhealthy and ill, obese *EYES: pupils equal but remain sluggish and round, reactive to light and accommodation, conjunctiva clear without masses or ulcerations, fundi normal. *CARDIOVASCULAR: Continues to have bilateral lower extremity peripheral edema 1+ pitting, distal temperature normal, Refer to vital signs * MUSCULOSKELETAL: *ASSESSMENT OF MUSCLE STRENGTH IN THE UPPER AND LOWER EXTREMITIES unable to assess; does not move extremities event to painful stimulus and no spontaneous movement seen on exam. Overall flaccid tone b/l upper and lower extremities persists Neurological: *ORIENTATION unable to assess as the patient remains unresponsive *CN II optic fundi were normal, no papilledema noted. *CN III,IV, PERRLA, sluggish, dolls eyes intact, corneal reflex intact *CN XII cough reflex intact *REFLEXES: no pathological reflexes found, absent reflexes throughout b/l bicep, tricep, patellar, and achilles Results - Laboratory Findings CBC and BMP: 02/07/19 03:20 02/07/19 03:20 Abnormal lab findings: Abnormal lab results WBC 12.9 K/mcL (4.3-11.1) H 02/06/19 03:40 RBC 5.57 M/mcL (4.19-5.50) H 02/02/19 03:15 Hgb 12.7 g/dL (12.9-16.9) L 02/07/19 03:20 MCH 27.0 pg (28.0-33.3) L 02/07/19 03:20 MCHC 30.6 g/dL (31.6-35.5) L 02/06/19 03:40 RDW 20.2 % (11.5-14.5) H 02/07/19 03:20 Plt Count 71 K/mcL (140-400) L 02/07/19 03:20 Immature Gran % 6.4 % (0-4) H 02/06/19 03:40 Neutrophils # 10.6 K/mcL (1.6-8.9) H 02/06/19 03:40 Lymphocytes # 0.5 K/mcL (0.6-4.6) L 02/02/19 03:15 Monocytes # 1.4 K/mcL (0.0-1.3) H 02/04/19 03:10 Nucleated RBCs/100 WBC 0.3 /100 WBC (0) H 02/07/19 03:20 Platelet Estimate Decreased (Normal) L 02/07/19 03:20 Immature Plt Fraction 19.4 % (1.1-6.1) H 02/05/19 03:10 Polychromasia 1+ (Not Present) A 02/03/19 04:15 PT 14.3 Seconds (9.4-12.1) H 02/04/19 03:10 APTT 46.1 Seconds (26.0-36.0) H 02/01/19 05:06 Heparin Anti-Xa, Unfract 0.29 IU/mL (0.30-0.70) L 02/03/19 11:00 ABG pH 7.26 pH Units (7.32-7.45) L 02/06/19 05:22 ABG pCO2 46 mmHg (35-45) H 02/05/19 05:25 ABG pO2 67 mmHg (85-104) L 02/07/19 04:09 ABG HCO3 19 mEq/L (21-27) L 02/06/19 05:22 ABG Total CO2 27 mEq/L (20-26) H 02/01/19 04:58 ABG O2 Saturation 93 % (95-98) L 02/07/19 04:09 ABG Base Excess -3 mEq/L (-2 to 3) L 02/07/19 04:09 VBG pCO2 32 mmHg (41-51) L 02/01/19 17:38 VBG pO2 209 mmHg (25-50) H 02/01/19 17:38 VBG HCO3 19 mEq/L (21-27) L 02/01/19 17:38 VBG Hematocrit 57.0 % (37.5-50.1) H 02/01/19 17:38 VBG Lactic Acid 3.7 mmol/L (0.5-2.2) H 02/01/19 17:38 Venous Sodium 134 mEq/L (135-145) L 02/01/19 17:38 Sodium 134 mEq/L (136-145) L 02/05/19 03:10 Potassium 5.2 mEq/L (3.5-5.1) H 02/01/19 02:25 Chloride 94 mEq/L (98-107) L 02/01/19 02:25 Carbon Dioxide 18 mEq/L (23-29) L 02/06/19 03:40 BUN 23 mg/dL (6-20) H 02/07/19 03:20 Creatinine 1.86 mg/dL (0.70-1.30) H 02/07/19 03:20 Est GFR ( Amer) 47 (> 60) L 02/07/19 03:20 Est GFR (Non-Af Amer) 39 (> 60) L 02/07/19 03:20 Glucose 184 mg/dL (70-105) H 02/07/19 03:20 Whole Bld Glucose 141 mg/dl (65-95) H 02/01/19 17:38 POC Glucose 159 mg/dL (70-99) H 02/06/19 22:50 Calculated Osmolality 303 (280-300) H 02/01/19 02:25 Calcium 10.4 mg/dL (8.6-10.3) H 01/31/19 19:23 Venous Ioniz Calcium 0.86 mmol/L (1.15-1.35) L 02/02/19 05:46 Phosphorus 1.9 mg/dL (2.7-4.5) L 02/07/19 03:20 Total Bilirubin 4.3 mg/dL (0.3-1.0) H 02/03/19 04:00 Direct Bilirubin 0.5 mg/dL (0.0-0.2) H 01/31/19 19:23 Alkaline Phosphatase 158 Units/L (34-104) H 02/03/19 04:00 Creatine Kinase 323 Units/L (30-223) H 02/07/19 03:20 Troponin I 0.12 ng/mL (< 0.04) H* 02/01/19 02:25 Serum Total Protein 5.9 g/dL (6.4-8.9) L 02/03/19 04:00 Albumin 2.9 g/dL (3.5-5.7) L 02/03/19 04:00 Albumin/Globulin Ratio 1.0 (1.1-2.2) L 02/03/19 04:00 Lipase 4 Units/L (11-82) L 02/01/19 02:25 Vancomycin Trough 15 mcg/mL (5-10) H 02/06/19 04:58 Hep Bs Antibody < 3.10 mIU/mL (10.00-) L 02/01/19 13:25 Staph aureus (PCR) DETECTED (Not Detect) A 02/03/19 08:37 mecA-Methicil Res Gene DETECTED (Not Detect) A 02/03/19 08:37 Consult Discharge Plan - Plan Referrals: NONE,PCP [Primary Care Provider] - <Hiram Gant - Last Filed: 02/07/19 16:58> Date of Encounter: 02/07/19 Assessment and Plan (1) Cerebral infarction, watershed distribution, bilateral, acute Current Visit: Yes Status: Acute I have personally performed a [id number] assessment of the patient and have reviewed the PA/CUTTER GRINDER note. My impressions are as follows: I agree with the assessment and plan as documented above by the FOOD SANITARIAN. Unfortunately, his prognosis is poor. Considering the nature of his pulmonary dysfunction, other evidence of organ failure, anoxic brain injury and watershed infarcts. We will continue to follow peripherally. 25 minutes was spent with this patient of which greater than 50% of that time spent in [id number] contact. (2) Abnormal CT of the head Current Visit: Yes Status: Acute (3) Encephalopathy Current Visit: Yes Status: Acute Subjective Interval history: Chart was reviewed, patient was seen and examined independently. Case was discussed with the FOOD SANITARIAN. I agree with his documentation of the history of present illness as stated above. In the interim between assessments I did repeat the EEG which revealed diffuse alpha frequencies which are an ominous sign under these conditions. Objective - Constitutional Vitals: Temp Pulse Resp BP Pulse Ox 98.9 F 111 26 103/50 96 02/07/19 11:00 02/07/19 13:00 02/07/19 13:00 02/07/19 13:00 02/07/19 13:00 Exam: I have personally performed a [id number] assessment of the patient and have reviewed the PA/CUTTER GRINDER note. My impressions are as follows: I agree with the neurologic exam as documented above. Results - Laboratory Findings CBC and BMP: 02/07/19 03:20 02/07/19 03:20 Abnormal lab findings: Abnormal lab results WBC 12.9 K/mcL (4.3-11.1) H 02/06/19 03:40 RBC 5.57 M/mcL (4.19-5.50) H 02/02/19 03:15 Hgb 12.7 g/dL (12.9-16.9) L 02/07/19 03:20 MCH 27.0 pg (28.0-33.3) L 02/07/19 03:20 MCHC 30.6 g/dL (31.6-35.5) L 02/06/19 03:40 RDW 20.2 % (11.5-14.5) H 02/07/19 03:20 Plt Count 71 K/mcL (140-400) L 02/07/19 03:20 Immature Gran % 6.4 % (0-4) H 02/06/19 03:40 Neutrophils # 10.6 K/mcL (1.6-8.9) H 02/06/19 03:40 Lymphocytes # 0.5 K/mcL (0.6-4.6) L 02/02/19 03:15 Monocytes # 1.4 K/mcL (0.0-1.3) H 02/04/19 03:10 Nucleated RBCs/100 WBC 0.3 /100 WBC (0) H 02/07/19 03:20 Platelet Estimate Decreased (Normal) L 02/07/19 03:20 Immature Plt Fraction 19.4 % (1.1-6.1) H 02/05/19 03:10 Polychromasia 1+ (Not Present) A 02/03/19 04:15 PT 14.3 Seconds (9.4-12.1) H 02/04/19 03:10 APTT 46.1 Seconds (26.0-36.0) H 02/01/19 05:06 Heparin Anti-Xa, Unfract 0.29 IU/mL (0.30-0.70) L 02/03/19 11:00 ABG pH 7.26 pH Units (7.32-7.45) L 02/06/19 05:22 ABG pCO2 46 mmHg (35-45) H 02/05/19 05:25 ABG pO2 67 mmHg (85-104) L 02/07/19 04:09 ABG HCO3 19 mEq/L (21-27) L 02/06/19 05:22 ABG Total CO2 27 mEq/L (20-26) H 02/01/19 04:58 ABG O2 Saturation 93 % (95-98) L 02/07/19 04:09 ABG Base Excess -3 mEq/L (-2 to 3) L 02/07/19 04:09 VBG pCO2 32 mmHg (41-51) L 02/01/19 17:38 VBG pO2 209 mmHg (25-50) H 02/01/19 17:38 VBG HCO3 19 mEq/L (21-27) L 02/01/19 17:38 VBG Hematocrit 57.0 % (37.5-50.1) H 02/01/19 17:38 VBG Lactic Acid 3.7 mmol/L (0.5-2.2) H 02/01/19 17:38 Venous Sodium 134 mEq/L (135-145) L 02/01/19 17:38 Sodium 134 mEq/L (136-145) L 02/05/19 03:10 Potassium 5.2 mEq/L (3.5-5.1) H 02/01/19 02:25 Chloride 94 mEq/L (98-107) L 02/01/19 02:25 Carbon Dioxide 18 mEq/L (23-29) L 02/06/19 03:40 BUN 23 mg/dL (6-20) H 02/07/19 03:20 Creatinine 1.86 mg/dL (0.70-1.30) H 02/07/19 03:20 Est GFR ( Amer) 47 (> 60) L 02/07/19 03:20 Est GFR (Non-Af Amer) 39 (> 60) L 02/07/19 03:20 Glucose 184 mg/dL (70-105) H 02/07/19 03:20 Whole Bld Glucose 141 mg/dl (65-95) H 02/01/19 17:38 POC Glucose 159 mg/dL (70-99) H 02/06/19 22:50 Calculated Osmolality 303 (280-300) H 02/01/19 02:25 Calcium 10.4 mg/dL (8.6-10.3) H 01/31/19 19:23 Venous Ioniz Calcium 0.86 mmol/L (1.15-1.35) L 02/02/19 05:46 Phosphorus 1.9 mg/dL (2.7-4.5) L 02/07/19 03:20 Total Bilirubin 4.3 mg/dL (0.3-1.0) H 02/03/19 04:00 Direct Bilirubin 0.5 mg/dL (0.0-0.2) H 01/31/19 19:23 Alkaline Phosphatase 158 Units/L (34-104) H 02/03/19 04:00 Creatine Kinase 323 Units/L (30-223) H 02/07/19 03:20 Troponin I 0.12 ng/mL (< 0.04) H* 02/01/19 02:25 Serum Total Protein 5.9 g/dL (6.4-8.9) L 02/03/19 04:00 Albumin 2.9 g/dL (3.5-5.7) L 02/03/19 04:00 Albumin/Globulin Ratio 1.0 (1.1-2.2) L 02/03/19 04:00 Lipase 4 Units/L (11-82) L 02/01/19 02:25 Vancomycin Trough 15 mcg/mL (5-10) H 02/06/19 04:58 Hep Bs Antibody < 3.10 mIU/mL (10.00-) L 02/01/19 13:25 Staph aureus (PCR) DETECTED (Not Detect) A 02/03/19 08:37 mecA-Methicil Res Gene DETECTED (Not Detect) A 02/03/19 08:37
--- NOTE | 2019-02-07 12:24 | Podiatry Progress Note ---
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 Plan: - no further treatment warranted- patient now DNR and will soon be placed CC orders Subjective Principal diagnosis: Septic shock, acute watershed infarts Interval history: Came to bedside for assessment, nurse standing at door, room full of family- states they are currently making patient DNR status and the family wants nothing further done. Patient is unresponsive. Objective - Vital Signs Vital Signs: Vital Signs Temp Pulse Resp BP Pulse Ox 02/07/19 12:00 106 26 107/75 96 02/07/19 11:00 98.9 F 108 26 94/58 96 02/07/19 10:00 106 26 103/55 97 02/07/19 09:59 28 97 02/07/19 09:00 102 26 94/65 97 02/07/19 08:00 100 29 104/60 98 02/07/19 07:24 26 97 02/07/19 07:00 98.1 F 96 30 86/63 97 02/07/19 06:00 98 26 94/49 95 02/07/19 05:00 100 26 102/58 94 02/07/19 04:00 98.2 F 115 29 115/59 95 02/07/19 03:45 110 02/07/19 03:40 27 99 02/07/19 03:00 119 29 101/49 93 02/07/19 02:16 29 94 02/07/19 02:00 105 31 98/59 92 02/07/19 01:00 104 29 92/47 96 02/07/19 00:00 98.3 F 106 31 102/57 95 02/06/19 23:56 26 98 02/06/19 23:10 110 02/06/19 23:00 105 29 99/62 97 02/06/19 22:11 35 100 02/06/19 22:00 99 31 98/48 100 02/06/19 21:00 112 26 99/56 98 02/06/19 20:00 99.9 F H 115 26 110/60 97 02/06/19 19:35 26 97 02/06/19 19:15 118 02/06/19 19:00 108 26 104/50 97 02/06/19 18:00 103 26 95/47 97 02/06/19 17:40 26 97 02/06/19 17:00 110 26 94/48 97 02/06/19 16:00 109 26 109/49 95 02/06/19 15:40 26 103/52 96 02/06/19 15:00 98.7 F 106 26 89/42 97 02/06/19 14:05 31 90/49 97 02/06/19 14:00 112 26 90/49 96 02/06/19 13:00 98 31 91/45 Intake and Output 02/06/19 02/07/19 02/07/19 23:59 07:59 15:59 Intake Total 228.3 / 1381.8 291.0 / 570.0 279 / 570.0 Output Total 855 / 1364 456 / 726 270 / 726 Balance -626.7 / 17.8 -165.0 / -156.0 9 / -156.0 Intake: IV Fluids 228.3 / 1351.8 291.0 / 570.0 279 / 570.0 PrismaSATE BGK 4/2.5 5,000 ML @ 0 / 0 1500 mls/hr CRRT [facility] Rx#: [id number] Levophed 8 MG In 0.9 % Sodium 90.3 / 207.3 91.0 / 120.0 29 / 120.0 Chloride 250 ML @ 0.5 MCG/MIN 0 .968 mls/hr IVC [facility] Rx#: [id number] Cubicin 1,000 MG In 0.9 % 100 / 100 Sodium Chloride 100 ML @ 200 mls/hr IVPB Q48H [facility] Rx#: [id number] Zosyn 3.375 GM In 0.9 % Sodium 38 / 230.5 200.0 / 200.0 Chloride (Mini-Bag +) 100 ML @ 25 mls/hr IVPB Q8H [facility] Rx#: [id number] Vancocin 1,000 MG In 0.9 % 250 / 250 Sodium Chloride 250 ML @ 167 mls/hr IVPB Q12H [facility] Rx#: [id number] Output: Rectal Tube 200 / 200 200 / 200 0 / 200 Catheter 0 / 0 0 / 0 0 / 0 Gastric Drainage 450 / 800 150 / 300 150 / 300 Fluid Removed by Prismaflex 205 / 364 106 / 226 120 / 226 Other: Weight 125.5 kg 124.75 kg 124.75 kg Blood Glucose* 161 144 156 Patient Weight 02/07/19 23:59 Weight 124.75 kg - Exam Exam: No assessment complete to respect family wishes - Lab Result Diagrams: 02/07/19 03:20 02/07/19 03:20 Labs: Abnormal lab results WBC 12.9 K/mcL (4.3-11.1) H 02/06/19 03:40 RBC 5.57 M/mcL (4.19-5.50) H 02/02/19 03:15 Hgb 12.7 g/dL (12.9-16.9) L 02/07/19 03:20 MCH 27.0 pg (28.0-33.3) L 02/07/19 03:20 MCHC 30.6 g/dL (31.6-35.5) L 02/06/19 03:40 RDW 20.2 % (11.5-14.5) H 02/07/19 03:20 Plt Count 71 K/mcL (140-400) L 02/07/19 03:20 Immature Gran % 6.4 % (0-4) H 02/06/19 03:40 Neutrophils # 10.6 K/mcL (1.6-8.9) H 02/06/19 03:40 Lymphocytes # 0.5 K/mcL (0.6-4.6) L 02/02/19 03:15 Monocytes # 1.4 K/mcL (0.0-1.3) H 02/04/19 03:10 Nucleated RBCs/100 WBC 0.3 /100 WBC (0) H 02/07/19 03:20 Platelet Estimate Decreased (Normal) L 02/07/19 03:20 Immature Plt Fraction 19.4 % (1.1-6.1) H 02/05/19 03:10 Polychromasia 1+ (Not Present) A 02/03/19 04:15 PT 14.3 Seconds (9.4-12.1) H 02/04/19 03:10 APTT 46.1 Seconds (26.0-36.0) H 02/01/19 05:06 Heparin Anti-Xa, Unfract 0.29 IU/mL (0.30-0.70) L 02/03/19 11:00 ABG pH 7.26 pH Units (7.32-7.45) L 02/06/19 05:22 ABG pCO2 46 mmHg (35-45) H 02/05/19 05:25 ABG pO2 67 mmHg (85-104) L 02/07/19 04:09 ABG HCO3 19 mEq/L (21-27) L 02/06/19 05:22 ABG Total CO2 27 mEq/L (20-26) H 02/01/19 04:58 ABG O2 Saturation 93 % (95-98) L 02/07/19 04:09 ABG Base Excess -3 mEq/L (-2 to 3) L 02/07/19 04:09 VBG pCO2 32 mmHg (41-51) L 02/01/19 17:38 VBG pO2 209 mmHg (25-50) H 02/01/19 17:38 VBG HCO3 19 mEq/L (21-27) L 02/01/19 17:38 VBG Hematocrit 57.0 % (37.5-50.1) H 02/01/19 17:38 VBG Lactic Acid 3.7 mmol/L (0.5-2.2) H 02/01/19 17:38 Venous Sodium 134 mEq/L (135-145) L 02/01/19 17:38 Sodium 134 mEq/L (136-145) L 02/05/19 03:10 Potassium 5.2 mEq/L (3.5-5.1) H 02/01/19 02:25 Chloride 94 mEq/L (98-107) L 02/01/19 02:25 Carbon Dioxide 18 mEq/L (23-29) L 02/06/19 03:40 BUN 23 mg/dL (6-20) H 02/07/19 03:20 Creatinine 1.86 mg/dL (0.70-1.30) H 02/07/19 03:20 Est GFR ( Amer) 47 (> 60) L 02/07/19 03:20 Est GFR (Non-Af Amer) 39 (> 60) L 02/07/19 03:20 Glucose 184 mg/dL (70-105) H 02/07/19 03:20 Whole Bld Glucose 141 mg/dl (65-95) H 02/01/19 17:38 POC Glucose 159 mg/dL (70-99) H 02/06/19 22:50 Calculated Osmolality 303 (280-300) H 02/01/19 02:25 Calcium 10.4 mg/dL (8.6-10.3) H 01/31/19 19:23 Venous Ioniz Calcium 0.86 mmol/L (1.15-1.35) L 02/02/19 05:46 Phosphorus 1.9 mg/dL (2.7-4.5) L 02/07/19 03:20 Total Bilirubin 4.3 mg/dL (0.3-1.0) H 02/03/19 04:00 Direct Bilirubin 0.5 mg/dL (0.0-0.2) H 01/31/19 19:23 Alkaline Phosphatase 158 Units/L (34-104) H 02/03/19 04:00 Creatine Kinase 323 Units/L (30-223) H 02/07/19 03:20 Troponin I 0.12 ng/mL (< 0.04) H* 02/01/19 02:25 Serum Total Protein 5.9 g/dL (6.4-8.9) L 02/03/19 04:00 Albumin 2.9 g/dL (3.5-5.7) L 02/03/19 04:00 Albumin/Globulin Ratio 1.0 (1.1-2.2) L 02/03/19 04:00 Lipase 4 Units/L (11-82) L 02/01/19 02:25 Vancomycin Trough 15 mcg/mL (5-10) H 02/06/19 04:58 Hep Bs Antibody < 3.10 mIU/mL (10.00-) L 02/01/19 13:25 Staph aureus (PCR) DETECTED (Not Detect) A 02/03/19 08:37 mecA-Methicil Res Gene DETECTED (Not Detect) A 02/03/19 08:37 Microbiology, Last 48 Hours 02/07/19 10:08 Blood Culture - Preliminary Central Venous Catheter Culture is incubating and being continuously monitored for growth. Final report to follow. 02/07/19 10:08 Blood Culture - Preliminary Central Venous Catheter Culture is incubating and being continuously monitored for growth. Final report to follow. 02/06/19 03:57 Blood Culture - Preliminary Peripheral Venipuncture Gram Positive Cocci 02/06/19 04:04 Blood Culture - Preliminary Peripheral Venipuncture Gram Positive Cocci 02/03/19 07:41 Blood Culture - Final Central Venous Catheter Methicillin Resistant S.aureus 02/03/19 08:37 Blood Culture - Final Peripheral Venipuncture Methicillin Resistant S.aureus Consult Discharge Plan - Plan Referrals: NONE,PCP [Primary Care Provider] -
--- NOTE | 2019-02-07 12:52 | EEG/EMG/Oth Biometrics Report ---
EEG Procedure Report Date of procedure: 02/07/19 EEG Procedure: Routine EEG Procedure Note: This is a report of a 21 channel bipolar and referential montage EEG recorded on an ICU patient. From the very beginning diffuse alpha frequencies are identified in all leads bilaterally during much of the recording. Occasional beta frequencies are superimposed. However no sleep architecture is otherwise identified during the recording. Hyperventilation is not performed in recording. Noxious stimuli is applied to the patient during the recording and does not elicit any change in the background frequencies. Occasional waxing and waning of the alpha frequencies is identified during the recording. Photic stimulations performed and does not produce a driving response. The EKG rhythm strip reveals normal sinus rhythm at 96 bpm. Impressions: This EEG recording is abnormal revealing diffuse alpha frequencies in all leads bilaterally. Given the scenario of respiratory failure this is a very poor prognostic sign. There is no epileptiform activity identified during the study. Please correlate clinically.
[2019-02-07 13:04] VITALS: BP 103/50
[2019-02-07] MEDS ORDERED: *HR* LORazepam 2 MG/ML VIAL IVP PRN ×2 (13:55→16:49)
[2019-02-07] MEDS ORDERED: Glycopyrrolate 0.2 MG/ML VIAL IVP ONE (13:59)
[2019-02-07] MEDS ORDERED: Atropine Sulfate 1% 40 DROP/2 ML BOTTLE SL PRN ×2 (14:02→16:49)
[2019-02-07] MEDS: FentaNYL (PF) 1,000 MCG in 0.9 % Sodium Chloride 80 ML IVC SCH (14:36)
[2019-02-07] MEDS ORDERED: FentaNYL (PF) 1,000 MCG in 0.9 % Sodium Chloride 80 ML IVC SCH (16:49)
[2019-02-07] MEDS ORDERED: *HR* FentaNYL (PF) 100 MCG/2 ML VIAL IVP PRN (19:12)
--- NOTE | 2019-02-08 06:54 | Death Note ---
<MartinTono Vita - Last Filed: 02/08/19 07:32> Discharge Sum: Summary - Date and Time Date of admission: 01/31/19 23:31 Date of : 02/07/19 Time of : 19:35 - Summary Details: Eduar Hatch is a 48-year-old male with past medical history of ESRD on hemodialysis, A. fib, cardiomyopathy, systolic congestive heart failure, diabetes, hypertension. He presented to [place] via EMS on 01/31/19. He was reportedly found down at home for unknown length of time. He had waxing and waning mental status during transportation to the hospital. He was intubated and sedated in the emergency room. He was hypotensive, unresponsive to fluids, complicated by A. fib with RVR. Electrocardioversion was unsuccessful. He started on an amiodarone drip and sent to the ICU. On his first admission blood cultures were indicative of MRSA bacteremia, he remained on pressor support for hypotension, started on broad-spectrum antibiotics, and renal replacement therapy was initiated. Fluid removal via renal replacement therapy was successful and managing his heart rate, however he remained hypotensive in need of pressor support throughout his stay. He was unresponsive to external stimuli when he was brought to the ICU, and did not regain any mental function when sedation was eventually removed. Palliative care was consulted due to patient's poor prognosis. Cardiology was consulted for help managing A. fib with RVR, and also to perform a QUIQUE in search of bacterial endocarditis. No evidence of bacterial endocarditis on QUIQUE however blood cultures were consistently positive for MRSA bacteremia despite appropriate therapy. Infectious disease was consulted for antibiotic recommendations due to persistent MRSA bacteremia. Nephrology was consulted for renal replacement therapy. Head CT on admission was unremarkable, repeat head CT on 02/06/19 showed a few small foci of decreased attenuation within the bilateral frontal and left parietal lobes, that may have represented acute lacunar infarcts. Neurology was consulted. An EEG was performed that revealed abnormal diffuse alpha frequencies in all leads bilaterally. Due to patient's poor prognosis and lack of improvement patient's family decided to terminally extubate patient on 02/07/19. Endotracheal tube was removed at 1434 and comfort care was initiated. Patient at 1935. - Additional Data Confirmation of as documented by pronouncing clinician: no respirations, no heart sounds Family: contacted Attending/PCP notified?: Yes Attending physician: Maria Isabel Cooper MD Was code activated?: No Organ bank notified?: Yes Discharge Sum: Diag - PCOD Probable Cause of : Cerebrovascular accident - Contributing Factors (2) Sepsis due to methicillin resistant Staphylococcus aureus (MRSA) with acute hypercapnic respiratory failure and septic shock Septic shock leading to acute anoxic brain injury. Discharge Sum: Prov - Provider Primary care physician: PCP NONE Consults: 01/31/19 23:46 Consult to Nephrology [CONS] Routine Consulting Provider: [facility]/YADIRA/RAKESH/RENEE Reason for Consult: ESRD patient with HD M/W/F who was found down, presented in unstable afib RVR requiring cardioversion but unsuccessful. Intubated on mechanical ventilation with vasopressor support. Received 3L of fluids for hypotension and elevated CK while in ER. On amiodarone and norepinephrine. Call Completed: No 01/31/19 23:48 Consult to Cardiology [CONS] Routine Comment: Consulting Provider: Cardiology [place] Reason for Consult: ESRD patient with HD M/W/F who was found down, presented in unstable afib RVR requiring cardioversion but unsuccessful. Intubated on mechanical ventilation with vasopressor support. Received 3L of fluids for hypotension and elevated CK while in ER. On amiodarone and norepinephrine. Call Completed: Yes 02/01/19 06:14 Consult to Critical Care [CONS] Routine Consulting Provider: [facility] [place] Reason for Consult: mechanical ventilation management Call Completed: No 02/01/19 08:31 Consult to Palliative Care [CONS] Routine Comment: Consulting Provider: [facility]iative [facility] Reason for Consult: Poor prognosis. GOC discussion with family Call Completed: No 02/01/19 08:36 Consult to Nutrition [CONS] Routine Comment: Consulting Provider: NUTRITION Reason for Dietary Consult: Tube Feed Start & Manage 02/01/19 10:30 Consult to Dialysis [CONS] ONCE 02/01/19 10:57 Consult to Interventional Radiology [CONS] Stat Consulting Provider: Radiology [facility] Reason for Consult: Temporary line for HD. Call Completed: Yes 02/02/19 11:10 Consult to Podiatry [CONS] Routine Consulting Provider: [facility] Reason for Consult: BL foot edema/possible cellulitis Call Completed: Yes 02/04/19 09:21 Consult to Infectious Diseases [CONS] Routine Consulting Provider: Infectious Disease [facility] Reason for Consult: Blood cultures positive for MRSA in three sets of blood cultures. Unknown source Call Completed: No 02/04/19 13:31 Consult to Nutrition [CONS] Routine Comment: Consulting Provider: NUTRITION Reason for Dietary Consult: Tube Feed Start & Manage 02/06/19 09:47 Consult to Interventional Radiology [CONS] Routine Consulting Provider: Radiology [facility] Reason for Consult: IJ temporary dialysis catheter Call Completed: Yes 02/06/19 11:26 Consult to Neurology [CONS] Routine Consulting Provider: Neurology [facility] Reason for Consult: Unresponsive off sedation. Concern for new stroke on CT Call Completed: Yes 02/06/19 16:49 Consult to Vascular Surgery [CONS] Routine Consulting Provider: Vascular Surgery [facility] Reason for Consult: AV shunt source of infection? Call Completed: Yes 02/07/19 14:21 Consult to Interpret Exam [CONS] Routine Consulting Provider: Hiram Gant Consult to Interpret Exam: Interpret EEG Pronouncing clinician: Akiko Sosa <Lj Anderson - Last Filed: 02/08/19 12:36> Discharge Sum: Summary - Date and Time Date of admission: 01/31/19 23:31 - Summary Details: I was notified of the patient expiring last night and discussed the case this morning with Dr. Salazar. I reviewed his documentation and agree with his documentation. The only exception is that I suspect he from MRSA sepsis and likely endocarditis with secondary anoxic brain injury and CVA, ultimately leading to his . Despite adequate and appropriate antibiotics and supportive measures, patient did not respond and continued to have evidence of MRSA sepsis. He was compassionately extubated yesterday and several hours later with comfort measures. - Additional Data Attending physician: Maria Isabel Cooper MD Discharge Sum: Prov - Provider Consults: 01/31/19 23:46 Consult to Nephrology [CONS] Routine Consulting Provider: [facility]/YADIRA/RAKESH/RENEE Reason for Consult: ESRD patient with HD M/W/F who was found down, presented in unstable afib RVR requiring cardioversion but unsuccessful. Intubated on mechanical ventilation with vasopressor support. Received 3L of fluids for hypotension and elevated CK while in ER. On amiodarone and norepinephrine. Call Completed: No 01/31/19 23:48 Consult to Cardiology [CONS] Routine Comment: Consulting Provider: [facility] Reason for Consult: ESRD patient with HD M/W/F who was found down, presented in unstable afib RVR requiring cardioversion but unsuccessful. Intubated on mechanical ventilation with vasopressor support. Received 3L of fluids for hypotension and elevated CK while in ER. On amiodarone and norepinephrine. Call Completed: Yes 02/01/19 06:14 Consult to Critical Care [CONS] Routine Consulting Provider: [facility] Reason for Consult: mechanical ventilation management Call Completed: No 02/01/19 08:31 Consult to Palliative Care [CONS] Routine Comment: Consulting Provider: Palliative [facility] Reason for Consult: Poor prognosis. GOC discussion with family Call Completed: No 02/01/19 08:36 Consult to Nutrition [CONS] Routine Comment: Consulting Provider: NUTRITION Reason for Dietary Consult: Tube Feed Start & Manage 02/01/19 10:30 Consult to Dialysis [CONS] ONCE 02/01/19 10:57 Consult to Interventional Radiology [CONS] Stat Consulting Provider: Radiology [facility] Reason for Consult: Temporary line for HD. Call Completed: Yes 02/02/19 11:10 Consult to Podiatry [CONS] Routine Consulting Provider: [facility]iatry [facility] Reason for Consult: BL foot edema/possible cellulitis Call Completed: Yes 02/04/19 09:21 Consult to Infectious Diseases [CONS] Routine Consulting Provider: Infectious Disease [facility] Reason for Consult: Blood cultures positive for MRSA in three sets of blood cultures. Unknown source Call Completed: No 02/04/19 13:31 Consult to Nutrition [CONS] Routine Comment: Consulting Provider: NUTRITION Reason for Dietary Consult: Tube Feed Start & Manage 02/06/19 09:47 Consult to Interventional Radiology [CONS] Routine Consulting Provider: Radiology [facility] Reason for Consult: IJ temporary dialysis catheter Call Completed: Yes 02/06/19 11:26 Consult to Neurology [CONS] Routine Consulting Provider: Neurology [facility] Reason for Consult: Unresponsive off sedation. Concern for new stroke on CT Call Completed: Yes 02/06/19 16:49 Consult to Vascular Surgery [CONS] Routine Consulting Provider: Vascular Surgery [place] Reason for Consult: AV shunt source of infection? Call Completed: Yes 02/07/19 14:21 Consult to Interpret Exam [CONS] Routine Consulting Provider: Hiram Gant Consult to Interpret Exam: Interpret EEG
== END 2019-02-07 21:36 | disposition expired | DRG 870 ==
LOC: EMEROOARM 19:16 → ICNU 23:31
PROVIDERS: ADMIT Internal Medicine; ATTEND Internal Medicine